=== PATIENT | female | born 1960 | race Caucasian/White ===

== ENCOUNTER 2018-04-02 01:27 | Outpatient (CLI) | payer MEDICAID, SELFPAY ==
--- NOTE | 2018-04-02 10:21 | DI.REPORT_ITS ---
SYMPTOM/DIAGNOSIS: INCISIONAL HERNIA ABDOMINAL K43.2 ULTRASOUND OF THE LEFT LOWER QUADRANT: No hernia is demonstrated. There is no evidence of a mass, hematoma or fluid collection. IMPRESSION: Negative ultrasound of the left abdominal wall.
== END 2018-04-02 01:28 ==
PROVIDERS: PCP Family Medicine; Visit Provider Family Medicine
DX: K43.2 Incisional hernia without obstruction or gangrene (principal)
CPT/HCPCS: 76705

== ENCOUNTER 2018-04-24 12:37 | Outpatient (CLI) | payer MEDICAID, SELFPAY ==
[2018-04-24 21:35] LABS: Ionized Calcium 0.98 mmol/L (1.12-1.32)
[2018-04-26 07:27] LABS: Vitamin D 25 Total 21.9 ng/ml (30-100)
== END 2018-04-24 12:57 ==
PROVIDERS: PCP Family Medicine; Visit Provider Family Medicine
DX: E83.51 Hypocalcemia (principal)
CPT/HCPCS: 36415; 82306; 82330

== ENCOUNTER 2018-05-15 00:44 | Outpatient (CLI) | payer OTHER, SELFPAY ==
--- NOTE | 2018-05-15 08:57 | DI.COMBO_ITS ---
SYMPTOM/DIAGNOSIS: OA BOTH HANDS. DISABILITY DETERMINATION. IDENTITY VERIFIED BY PHOTO ID. RIGHT HAND: 05/15 Two views were obtained. There are minimal degenerative changes of the carpus. There is cartilaginous joint space narrowing involving the DIP joints and to a lesser degree the PIP joints of the index, middle, ring and little fingers. Very prominent hypertrophic spurring is noted associated with the DIP joints of the ring and little fingers. Moderate hypertrophic spurring seen at the index and ring finger DIPs. CONCLUSION: DJD with severe degenerative deformity at DIP joints of ring finger and little finger. LEFT HAND 05/15 Two views were obtained. There are minimal degenerative changes of the carpus. Mild narrowing of PIP joints of the fingers noted. There is marked joint space narrowing at the DIP joints of the index, middle, ring and little fingers with very prominent hypertrophic spurring, periarticular erosions also appear to be present and there appear to be fractured osteophytes of the DIP joints of the middle finger. CONCLUSION: Severe DJD involving the DIP joints as described above.
== END 2018-05-15 01:04 ==
PROVIDERS: PCP Family Medicine; Visit Provider Pediatrics Pediatric Rheumatology
DX: M19.041 Primary osteoarthritis, right hand (principal); M19.042 Primary osteoarthritis, left hand; Z02.71 Encounter for disability determination
CPT/HCPCS: 73120

== ENCOUNTER 2018-07-03 19:08 | Outpatient (REF) | payer MEDICAID, SELFPAY ==
[2018-07-03 19:40] LABS: Abs Immature Grans 0.01 k/cumm (0.0-0.09); Absolute Basophil Count 0.03 k/cumm (0.0-0.2); Absolute Eosinophil Count 0.18 k/cumm (0.0-0.7); Absolute Lymphocyte Count 0.92 k/cumm (1.2-3.4); Absolute Monocyte Count 0.59 k/cumm (0.11-0.7); Absolute Neutrophil Count 3.97 k/cumm (1.2-6.7); Basophils % 0.5; Eosinophils % 3.2; HCT 42.6 % (36.0-46.0); HGB 14.5 g/dL (12.0-15.5); Immature Grans % 0.2; Lymphocytes % 16.1; Mean Corpuscular Hemoglobin 28.2 pg (27.0-33.0); Mean Corpuscular Volume 82.9 fL (80-95); Mean Platelet Volume 10.2 fL (8.0-11.0); Monocytes % 10.4; Neutrophils % 69.6; Platelet Count 328 x1000/uL (130-400); RBC 5.14 m/cumm (4.00-5.20); RBC Distribution Width 13.6 % (11.7-14.6)
[2018-07-03 20:06] LABS: ALT 33 U/L (12-78); AST 25 U/L (15-37); Albumin 3.6 g/dL (3.4-5.0); Alkaline Phosphatase 118 U/L (46-116); Anion Gap 9.5 mmol/L (3-11); BUN 13 mg/dL (7-18); Bilirubin, Total 0.3 mg/dL (0.2-1.0); CO2 29.5 mmol/L (21.0-32.0); CREATININE 0.72 mg/dL (0.55-1.02); Calcium 7.9 mg/dL (8.5-10.1); Chloride 102 mmol/L (98-107); Glucose 93 mg/dL (70-100); Potassium 3.7 mmol/L (3.5-5.1); Sodium 141 mmol/L (136-145); Total Protein 6.6 g/dL (6.4-8.2)
== END 2018-07-03 19:28 ==
LOC: NCHCN 19:08
PROVIDERS: PCP Family Medicine; Visit Provider Nurse Practitioner Family
DX: K57.90 Diverticulosis of intestine, part unspecified, without perforation or abscess without bleeding (principal); R14.0 Abdominal distension (gaseous)
CPT/HCPCS: 80053; 85025

== ENCOUNTER 2018-07-20 10:35 | Outpatient (CLI) | payer MEDICAID, SELFPAY ==
[2018-07-23 11:02] LABS: Parathyroid Hormone,Intact 46 pg/ml (19-88)
== END 2018-07-20 10:55 ==
PROVIDERS: PCP Family Medicine; Visit Provider Family Medicine
DX: E83.51 Hypocalcemia (principal)
CPT/HCPCS: 36415; 83970

== ENCOUNTER 2018-09-07 00:47 | Outpatient (CLI) | payer MEDICAID, SELFPAY ==
[2018-09-07 09:48] LABS: CREATININE 0.79 mg/dL (0.55-1.02)
[2018-09-07] MEDS: Omnipaque 350 MG/ML 100 ML BTL IJ (10:46)
[2018-09-07] MEDS: Normal Saline Flush 10 ML SYR IVP ×2 (10:46→10:47)
--- NOTE | 2018-09-07 11:34 | DI.CT_ITS ---
SYMPTOMS/DIAGNOSIS: ABDOMINAL PAIN, H/O DIVERTICULITIS, LUPUS, ? DIVERTICULITIS CT SCAN OF THE ABDOMEN AND PELVIS: CT scan of the abdomen and pelvis was performed following the uneventful administration of intravenous and oral contrast material. Comparison is 12/01/17. No acute findings are seen in the lung bases. There is scarring or atelectasis present. The liver is normal in size. No suspicious hepatic masses are seen. There are several hypodense lesions seen scattered throughout the liver. These appear stable and likely reflect cysts. The portal and superior mesenteric veins are patent, as is the splenic vein. The gallbladder is negative. The common duct is stable compared to the prior examinations. The pancreas, spleen and adrenal glands show no acute abnormality. The spleen is mildly enlarged. The kidneys show normal and symmetric enhancement. No suspicious solid renal masses or obstruction is identified. The urinary bladder is intact. The patient appears to be status post hysterectomy. There is diverticulosis seen in the colon, particularly the sigmoid colon. There is bowel wall thickening seen in the mid sigmoid colon. Mild increased attenuation is seen in the pericolonic fat in this region suggesting a mild acute diverticulitis. No abscess or free air is seen. The remainder of the bowel shows no evidence of bowel obstruction or inflammation. A normal appendix is present. Stable mildly enlarged lymph nodes are seen in the abdomen and pelvis. No ascites or pneumoperitoneum is present. There is atherosclerosis of the abdominal aorta, but no aneurysmal dilatation is seen. Degenerative changes are seen in the spine. IMPRESSION: Findings suggestive of acute diverticulitis involving the sigmoid colon. No evidence of free air or abscess.
== END 2018-09-07 01:07 ==
PROVIDERS: PCP Family Medicine; Visit Provider Physical Therapy Assistant
DX: R10.9 Unspecified abdominal pain (principal); K57.32 Diverticulitis of large intestine without perforation or abscess without bleeding; R59.0 Localized enlarged lymph nodes; Z87.19 Personal history of other diseases of the digestive system
CPT/HCPCS: 36415; 74177; 82565; J3490

== ENCOUNTER 2018-10-04 08:30 | Outpatient (CLI) | payer MEDICAID, SELFPAY ==
[2018-10-04 08:58] LABS: Abs Immature Grans 0.01 k/cumm (0.0-0.09); Absolute Basophil Count 0.02 k/cumm (0.0-0.2); Absolute Eosinophil Count 0.34 k/cumm (0.0-0.7); Absolute Lymphocyte Count 0.72 k/cumm (1.2-3.4); Absolute Neutrophil Count 4.32 k/cumm (1.2-6.7); Basophils % 0.3; Eosinophils % 5.8; HCT 41.6 % (36.0-46.0); HGB 14.3 g/dL (12.0-15.5); Immature Grans % 0.2; Lymphocytes % 12.2; Mean Corp. HGB Concentration 34.4 g/dL (32.0-36.0); Mean Corpuscular Hemoglobin 28.3 pg (27.0-33.0); Mean Corpuscular Volume 82.2 fL (80-95); Mean Platelet Volume 8.8 fL (8.0-11.0); Monocytes % 8.5; Platelet Count 251 x1000/uL (130-400); RBC 5.06 m/cumm (4.00-5.20); RBC Distribution Width 13.7 % (11.7-14.6); White Blood Cell Count 5.91 k/cumm (4.4-10.8)
== END 2018-10-04 08:50 ==
PROVIDERS: PCP Family Medicine; Visit Provider Surgery
DX: R19.7 Diarrhea, unspecified (principal)
CPT/HCPCS: 36415; 85025; 87324

== ENCOUNTER 2018-10-15 08:31 | Outpatient (CLI) | payer MEDICAID, SELFPAY ==
--- NOTE | 2018-10-15 15:10 | DI.CT_ITS ---
SYMPTOM/DIAGNOSIS: CHRONIC ETHMOID SINUSITIS, J32.2, INCREASED SYMPTOMS, ? INFECTION SINUS CT: The exam was performed according to the Cuff-Protect protocol. There is moderate circumferential mucosal thickening of the right maxillary sinus. There is occlusion of the ostiomeatal complex. There is severe mucus retention in the left maxillary sinus. There is renuka bullosa of the left middle turbinate and deviation of the nasal septum toward the left. The frontal, ethmoid and sphenoid sinuses as well as mastoid air cells appear clear. The orbits are unremarkable. No gross abnormalities are seen involving the brain. IMPRESSION: Bilateral maxillary sinus disease, left greater than right.
== END 2018-10-15 08:51 ==
PROVIDERS: PCP Family Medicine; Visit Provider Family Medicine
DX: J01.00 Acute maxillary sinusitis, unspecified (principal); J34.2 Deviated nasal septum
CPT/HCPCS: 70486

== ENCOUNTER 2018-10-16 10:26 | Emergency (ER) | payer MEDICAID, SELFPAY ==
[2018-10-16 10:33] VITALS: BP 138/68; PULSE 73; RESP 16; TEMP 37; O2SAT 99
--- NOTE | 2018-10-16 10:42 | W.ED.GENAD ---
Discharge Plan Disposition Patient Disposition: HOME Condition: Improving Discharge Details Chief Complaint: RespSymp Clinical Impression: Acute sinusitis Primary Care Provider: Daniel Hinkle ED Provider: Ke Acuna Home Meds and New Rx's Prescriptions: New cefdinir 300 mg capsule 300 mg PO Q12H 10 Days Qty: 20 RF: 0 Continued Adult 50+ Probiotic 4 billion cell capsule 4,000 mmu cells PO DAILY RF: 0 polyethylene glycol 3350 17 gram/dose powder 255 g PO ONCE Qty: 255 RF: 0 bisacodyl [Dulcolax (bisacodyl)] 5 mg tablet,delayed release (DR/EC) 5 mg PO ONCE Qty: 4 RF: 0 albuterol sulfate [ProAir HFA] 90 mcg/actuation HFA aerosol inhaler 2 puff Inhalation Q6H PRN (Reason: shortness of breath) RF: 0 hydroxychloroquine 200 MG tablet 200 mg PO DAILY Qty: 30 RF: 11 cetirizine 10 MG tablet 10 mg PO DAILY RF: 0 acetaminophen [Tylenol Extra Strength] 500 MG tablet 1,000 mg PO Q6H PRN RF: 0 levothyroxine 125 MCG tablet 125 mcg PO DAILY RF: 0 Flovent HFA 220 mcg/actuation HFA aerosol inhaler 220 mcg Inhalation BID PRNRF: 0 simvastatin 20 MG tablet 20 mg PO DAILY RF: 0 aspirin [Aspir-81] 81 MG tablet,delayed release (DR/EC) 81 mg PO DAILY RF: 0 ibuprofen 800 mg tablet 800 mg PO DIRECTED PRNRF: 0 lisinopril-hydrochlorothiazide 1 EACH tablet 1 ea PO DAILY RF: 0 pramipexole 1 MG tablet 1 mg PO DAILY RF: 0 cholecalciferol (vitamin D3) 1,000 UNITS tablet 5,000 mg PO DIRECTED RF: 0 Discontinued metronidazole 500 mg tablet 500 mg PO TID RF: 0 ciprofloxacin HCl 500 mg tablet 500 mg PO BID RF: 0 Discharge Instructions Instructions: Sinusitis (ED) Additional Instructions: Home to rest. Take antibiotics as prescribed Please follow-up with Dr. Duran in clinic if not improving in 1 week's time. Return to the ER for any acute Medical Decision Making 58-year-old female status post CT scan yesterday which revealed acute sinus disease. She reports symptoms consistent with this. He is otherwise well-appearing with normal vital signs. She was previously on a course of Augmentin approximately 2 months ago she reports. I discussed options for treatment with her and we will trial 10 days of cephalosporin. She is stable and appropriate outpatient management. HPI General Mode of arrival: ambulatory. Date/Time Provider Initiated Documentation: 10/16/18 10:34. Limitations to Documentation: no limitations. Information obtained by: patient. History of Present Illness 58 year old F presents to the emergency department with the chief complaint of Bilateral sinus pressure and drainage over weeks to, described as moderate and similar to prior episodes, Quality is described as dull and constant, and is localized to the head and face. Patient reports no radiation. Patient started experiencing this week(s) and it has been constant. No relieving factors improve symptom(s), No exacerbating factors reported . Patient notes denies fever/chills. Patient did receive the following treatments prior to arrival, other Related Data Home Medications Medication Instructions Recorded Confirmed simvastatin 20 mg PO DAILY 11/15/12 10/16/18 aspirin [Aspir-81] 81 mg PO DAILY 06/07/15 10/16/18 hydroxychloroquine 200 mg PO DAILY #30 tab-cap 11/16/16 10/16/18 acetaminophen [Tylenol Extra 1,000 mg PO Q6H PRN tab-cap 05/25/17 10/16/18 Strength] cetirizine 10 mg PO DAILY tab-cap 05/25/17 10/16/18 levothyroxine 125 mcg PO DAILY tab-cap 05/25/17 10/16/18 lisinopril-hydrochlorothiazide 1 ea PO DAILY 06/27/17 10/16/18 cholecalciferol (vitamin D3) 5,000 mg PO DIRECTED 12/01/17 10/16/18 pramipexole 1 mg PO DAILY 12/01/17 10/16/18 bisacodyl 5 mg tablet,delayed 5 mg PO ONCE #4 tab 08/27/18 10/16/18 release lactobacillus combination no.9 4 4,000 mmu cells PO DAILY 08/27/18 10/16/18 billion cell capsule polyethylene glycol 3350 17 255 g PO ONCE #255 gm 08/27/18 10/16/18 gram/dose oral powder albuterol sulfate HFA 90 2 puff INHALATION Q6H PRN inh 10/04/18 10/16/18 mcg/actuation aerosol inhaler fluticasone 220 mcg/actuation HFA 220 mcg INHALATION BID PRN inhaler 10/04/18 10/16/18 aerosol inhaler ibuprofen 800 mg tablet 800 mg PO DIRECTED PRN 10/04/18 10/16/18 cefdinir 300 mg PO Q12H 10 Days #20 cap 10/16/18 Previous Rx's Medication Instructions Recorded bisacodyl 5 mg tablet,delayed 5 mg PO ONCE #4 tab 08/27/18 release polyethylene glycol 3350 17 255 g PO ONCE #255 gm 08/27/18 gram/dose oral powder cefdinir 300 mg PO Q12H 10 Days #20 cap 10/16/18 Allergies Allergy/AdvReac Type Severity Reaction Status Date / Time No Known Allergies Allergy Verified 10/16/18 10:36 General Stated Complaint: RespSymp PRISCILLA: 4 Review of Systems Review of Systems 6 systems reviewed and otherwise negative [facility] Medical History Incisional hernia of anterior abdominal wall without obstruction or gangrene (Acute) Constipation HTN (hypertension) GERD (gastroesophageal reflux disease) Diverticulitis of sigmoid colon Lupus Hypothyroidism H/O: hysterectomy (Chronic) Abnormal mammogram of right breast Acute Lyme disease Allergic rhinitis Amyloidosis Antiphospholipid syndrome Asthma Chest wall pain Degenerative joint disease Derangement of meniscus of right knee Digital mucous cyst Eczema Hyperlipidemia Hypocalcemia Insomnia 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 Pleasant, well groomed, interactive. HEAD: Normocephalic, atraumatic ENT: Mucous membranes moist, oropharynx unremarkable, External ear exam unremarkable. Bilateral sinus tenderness to percussion both frontal and EYES: PERRL, EOMI NECK: Full ROM, no BETHEL, no menigismus CHEST/RESP: Nontender, clear to auscultation bilateral, no wheeze/rhonchi/rales CARDIOVASCULAR: RRR, no murmur, rub danielito. 2+ Rad pulse bilateral ABDOMEN: Soft, nontender, no mass. +Bowel sounds EXT: Full ROM, no edema, no rash Neuro: Grossly normal neurologic exam, conversant, interactive. Psych: Speech fluent, thoughts congruent, affect normal Course Vital Signs Temperature 37 C 10/16/18 10:33 Pulse 73 10/16/18 10:33 Respiratory Rate 16 10/16/18 10:33 Blood Pressure 138/68 10/16/18 10:33 Pulse Oximetry 99 10/16/18 10:33 Temperature 37 C 10/16/18 10:33 Temperature Source Skin 10/16/18 10:33 Pulse 73 10/16/18 10:33 Respiratory Rate 16 10/16/18 10:33 Respiratory Effort Non-Labored 10/16/18 10:33 Blood Pressure 138/68 10/16/18 10:33 Blood Pressure Position Sitting 10/16/18 10:33 Pulse Oximetry 99 10/16/18 10:33 Oxygen Delivery Method Room Air 10/16/18 10:33 Oxygen Flow Rate 0 10/16/18 10:33 Pain Level 3 10/16/18 10:33
== END 2018-10-16 10:53 | disposition home or self-care (01) ==
LOC: ER 10:58
PROVIDERS: Emergency Provider Emergency Medicine; PCP Family Medicine
DX: J01.90 Acute sinusitis, unspecified (principal)
CPT/HCPCS: 99283

== ENCOUNTER 2018-10-22 12:53 | Emergency (ER) | payer MEDICAID, SELFPAY ==
[2018-10-22 12:58] VITALS: BP 158/62; PULSE 76; RESP 16; TEMP 36.7; O2SAT 96
--- NOTE | 2018-10-22 13:31 | W.ED.GENAD ---
Discharge Plan Disposition Patient Disposition: HOME Discharge Details Chief Complaint: RespSymp Clinical Impression: Chronic sinusitis Primary Care Provider: Daniel Hinkle ED Provider: Gabriel Sutton Home Meds and New Rx's Prescriptions: New fluticasone propionate [Flonase Allergy Relief] 50 mcg/actuation spray,suspension 2 spray GRADY DAILY Qty: 9.9 RF: 0 doxycycline hyclate 100 mg tablet 100 mg PO BID Qty: 14 RF: 0 Continued Adult 50+ Probiotic 4 billion cell capsule 4,000 mmu cells PO DAILY RF: 0 bisacodyl [Dulcolax (bisacodyl)] 5 mg tablet,delayed release (DR/EC) 5 mg PO ONCE Qty: 4 RF: 0 albuterol sulfate [ProAir HFA] 90 mcg/actuation HFA aerosol inhaler 2 puff Inhalation Q6H PRN (Reason: shortness of breath) RF: 0 hydroxychloroquine 200 MG tablet 200 mg PO DAILY Qty: 30 RF: 11 cetirizine 10 MG tablet 10 mg PO DAILY RF: 0 acetaminophen [Tylenol Extra Strength] 500 MG tablet 1,000 mg PO Q6H PRN RF: 0 levothyroxine 125 MCG tablet 125 mcg PO DAILY RF: 0 Flovent HFA 220 mcg/actuation HFA aerosol inhaler 220 mcg Inhalation BID PRNRF: 0 simvastatin 20 MG tablet 20 mg PO DAILY RF: 0 aspirin [Aspir-81] 81 MG tablet,delayed release (DR/EC) 81 mg PO DAILY RF: 0 lisinopril-hydrochlorothiazide 1 EACH tablet 1 ea PO DAILY RF: 0 pramipexole 1 MG tablet 1 mg PO DAILY RF: 0 cholecalciferol (vitamin D3) 1,000 UNITS tablet 5,000 mg PO DIRECTED RF: 0 Discontinued cefdinir 300 mg capsule 300 mg PO Q12H 10 Days Qty: 20 RF: 0 Discharge Instructions Instructions: Sinusitis (ED) Additional Instructions: Please start with using the Flonase 2 sprays per nostril daily for the next 3 days. If this is not improving your symptoms you may start the doxycycline twice daily for 7 days. You may start the antibiotic sooner if you start running a fever or have a dramatic change in your symptoms. It is recommended that you stop the antibiotic that you are currently on while trialing the nasal spray. Feel free to return the emergency department for any significant worsening of symptoms or further concerns and follow-up with ENT for reassessment in 1 week. It may also be beneficial to buy a whole house humidifier along with a air purifier to see if that helps with your symptoms. Referrals: Solo Tate MD [ [facility] STAFF PHYSICIAN] - 1 week (Call the office tomorrow afternoon for arrangement of follow-up ) Discharge Data Discharge Date/Time-TO BE ENTERED AT DEPARTURE: 10/22/18 13:58 Medical Decision Making Patient presenting to the emergency department chief complaint of sinusitis. Patient states that this is been going on for 2 months and initially was placed up on Augmentin which moderately helped but then symptoms came back fairly quickly and was seen in the emergency department almost a week ago and placed up on Ceftin ear. She has been taking this and has had no improvement of symptoms while on this medication. Patient states long ongoing history of sinus infections and has seen Dr. Tate in the past with no specific findings beyond a deviated septum. Physical exam shows frontal ethmoid and maxillary sinus tenderness with mostly tenderness to ethmoid and maxillary sinuses, patient does have dry mucosa as well. No signs of venous sinus thrombosis, patient afebrile nontoxic in appearance, no other HEENT cardiac or respiratory examinations are noted on exam. Given duration of symptoms and not improving on antibiotics there may be a component of this being allergenic along with patient stating that they use wood heat and it is very dry in the home. Given this and that patient has not had any improvement with antibiotics I thoroughly discussed trial of stopping antibiotics, daily use of Flonase, and a prescription for doxycycline to begin in 3 days if the Flonase is not improving symptoms or for any fever. Given that patient has seen Dr. Tate in the past I did place a referral for her to have reevaluation in 1 week due to multiple ER visits and not improving of symptoms over the last 2 months. Clear return precautions were discussed with patient. After discussion of diagnosis and plan of care patient has no further needs, questions, or concerns and states clear understanding to return to the emergency department for any worsening symptoms or further concerns. HPI General Mode of arrival: ambulatory. Date/Time Provider Initiated Documentation: 10/22/18 13:03. Limitations to Documentation: no limitations. Information obtained by: patient, RN notes reviewed and old records reviewed. History of Present Illness described as moderate, with intensity rated at 4. Quality is described as aching, and is localized to the face. Patient started experiencing this month(s) (2) and it has been constant. No relieving factors improve symptom(s), Patient notes no other symptoms.. Patient did receive the following treatments prior to arrival, other (Multiple antibiotics and [id number] medications) Related Data Home Medications Medication Instructions Recorded Confirmed simvastatin 20 mg PO DAILY 11/15/12 10/22/18 aspirin [Aspir-81] 81 mg PO DAILY 06/07/15 10/22/18 hydroxychloroquine 200 mg PO DAILY #30 tab-cap 11/16/16 10/22/18 acetaminophen [Tylenol Extra 1,000 mg PO Q6H PRN tab-cap 05/25/17 10/22/18 Strength] cetirizine 10 mg PO DAILY tab-cap 05/25/17 10/22/18 levothyroxine 125 mcg PO DAILY tab-cap 05/25/17 10/22/18 lisinopril-hydrochlorothiazide 1 ea PO DAILY 06/27/17 10/22/18 cholecalciferol (vitamin D3) 5,000 mg PO DIRECTED 12/01/17 10/22/18 pramipexole 1 mg PO DAILY 12/01/17 10/22/18 bisacodyl 5 mg tablet,delayed 5 mg PO ONCE #4 tab 08/27/18 10/22/18 release lactobacillus combination no.9 4 4,000 mmu cells PO DAILY 08/27/18 10/22/18 billion cell capsule albuterol sulfate HFA 90 2 puff INHALATION Q6H PRN inh 10/04/18 10/22/18 mcg/actuation aerosol inhaler fluticasone propionate 220 220 mcg INHALATION BID PRN inhaler 10/04/18 10/22/18 mcg/actuation HFA aerosol inhaler doxycycline hyclate 100 mg PO BID #14 tab 10/22/18 fluticasone propionate [Flonase 2 spray GRADY DAILY #9.9 gm 10/22/18 Allergy Relief] Previous Rx's Medication Instructions Recorded bisacodyl 5 mg tablet,delayed 5 mg PO ONCE #4 tab 08/27/18 release doxycycline hyclate 100 mg PO BID #14 tab 10/22/18 fluticasone propionate [Flonase 2 spray GRADY DAILY #9.9 gm 10/22/18 Allergy Relief] Allergies Allergy/AdvReac Type Severity Reaction Status Date / Time No Known Allergies Allergy Verified 10/22/18 13:03 General Stated Complaint: RespSymp PRISCILLA: 4 Review of Systems Constitutional Denies chills, Reports fever(s) (at begining of illness), Denies headache(s) and Denies malaise Eyes Denies blurry vision and Denies change in vision ENT Denies vertigo, Denies dizziness, Denies otalgia, Denies headache(s), Denies neck pain, Reports post nasal drip, Reports sinus pain and Reports sinus pressure Cardiovascular Denies chest pain Respiratory Reports cough (Due to post nasal drip) Musculoskeletal Denies neck pain Neurologic Denies vertigo, Denies dizziness, Denies headache(s), Denies focal weakness and Denies sensory deficit [facility] Medical History Incisional hernia of anterior abdominal wall without obstruction or gangrene (Acute) Constipation HTN (hypertension) GERD (gastroesophageal reflux disease) Diverticulitis of sigmoid colon Lupus Hypothyroidism H/O: hysterectomy (Chronic) Abnormal mammogram of right breast Acute Lyme disease Allergic rhinitis Amyloidosis Antiphospholipid syndrome Asthma Chest wall pain Degenerative joint disease Derangement of meniscus of right knee Digital mucous cyst Eczema Hyperlipidemia Hypocalcemia Insomnia 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 Multinodular goiter Pericarditis Sciatica, left side Tendonitis of shoulder, right Wart Surgical History Thyroid Tonsillectomy Social History Smoking and Tabacco status: Former Tobacco Use Exam Const General: cooperative, comfortable and no acute distress Orientation: alert, awake and oriented x3 HENMT Head: normal to inspection, normocephalic and atraumatic Ears: hearing grossly normal bilaterally, external ears normal and TM's normal bilaterally General nose exam: external nose normal, nares normal, no nasal polyps and no nasal discharge Face and sinus: sinus tenderness frontal, ethmoid and maxillary Mouth: lip normal, tongue normal and moist mucous membranes abnormal (dry) Throat: posterior oropharynx normal, tonsils normal and uvula midline Eyes Visual Curran: normal visual curran by confrontation Alignment and Position: alignment normal Periorbital: periorbital findings normal Sclera: sclerae normal EOM: EOM intact bilaterally Neck Neck: normal visual inspection, full ROM, no lymphadenopathy, no meningeal signs, trachea midline and supple Resp Effort & Inspection: normal respiratory effort and able to speak in complete sentences Auscultation: clear to auscultation bilaterally Cardio Rate: regular rate Rhythm: regular rhythm Heart Sounds: S1 normal, S2 normal, no click, no gallops, no murmurs and no rubs Course Vital Signs Temperature 36.7 C 10/22/18 12:58 Pulse 76 10/22/18 12:58 Respiratory Rate 16 10/22/18 12:58 Blood Pressure 158/62 H 10/22/18 12:58 Pulse Oximetry 96 10/22/18 12:58 Temperature 36.7 C 10/22/18 12:58 Temperature Source Skin 10/22/18 12:58 Pulse 76 10/22/18 12:58 Respiratory Rate 16 10/22/18 12:58 Respiratory Effort Non-Labored 10/22/18 13:01 Respiratory Depth Normal 10/22/18 13:28 Blood Pressure 158/62 H 10/22/18 12:58 Blood Pressure Position Sitting 10/22/18 12:58 Pulse Oximetry 96 10/22/18 12:58 Oxygen Delivery Method Room Air 10/22/18 12:58 Oxygen Flow Rate 0 10/22/18 12:58 Pain Level 4 10/22/18 12:58
--- NOTE | 2018-10-22 14:24 | CMPROGNOTE_ITS ---
Care Management Progress Note 10/22-[place] [facility] requested assistance with an ENT f/ufor chronic sinusitis. Patient has had multiple ED visits, two antibiotics with no improvement. Referral faxed to ENT this afternoon.
== END 2018-10-22 13:58 | disposition home or self-care (01) ==
PROVIDERS: Emergency Provider Nurse Practitioner Family; PCP Family Medicine
DX: J32.9 Chronic sinusitis, unspecified (principal); I10 Essential (primary) hypertension
CPT/HCPCS: 99283

== ENCOUNTER 2018-10-28 09:59 | Emergency (ER) | payer MEDICAID, SELFPAY ==
[2018-10-28 10:07] VITALS: BP 148/78; PULSE 68; RESP 20; TEMP 36.7; O2SAT 96
--- NOTE | 2018-10-28 10:32 | W.ED.GENAD ---
Discharge Plan Disposition Patient Disposition: HOME Discharge Details Chief Complaint: EyeProblem Clinical Impression: Conjunctivitis, Dry eye Primary Care Provider: Daniel Hinkle ED Provider: Evan Whitmore Home Meds and New Rx's Prescriptions: New erythromycin 5 mg/gram (0.5 %) ointment 1 applic OP QID 7 Days Qty: 3.5 RF: 0 Continued bisacodyl [Dulcolax (bisacodyl)] 5 mg tablet,delayed release (DR/EC) 5 mg PO ONCE Qty: 4 RF: 0 albuterol sulfate [ProAir HFA] 90 mcg/actuation HFA aerosol inhaler 2 puff Inhalation Q6H PRN (Reason: shortness of breath) RF: 0 hydroxychloroquine 200 MG tablet 200 mg PO DAILY Qty: 30 RF: 11 acetaminophen [Tylenol Extra Strength] 500 MG tablet 1,000 mg PO Q6H PRN RF: 0 levothyroxine 125 MCG tablet 125 mcg PO DAILY RF: 0 Flovent HFA 220 mcg/actuation HFA aerosol inhaler 220 mcg Inhalation BID PRNRF: 0 simvastatin 20 MG tablet 20 mg PO DAILY RF: 0 aspirin [Aspir-81] 81 MG tablet,delayed release (DR/EC) 81 mg PO DAILY RF: 0 doxycycline hyclate 100 mg tablet 100 mg PO BID Qty: 14 RF: 0 loratadine 10 mg Capsule 10 mg PO DAILY RF: 0 pramipexole 1 MG tablet 1 mg PO DAILY RF: 0 Discharge Instructions Instructions: Erythromycin (Into the eye), Conjunctivitis (ED) Additional Instructions: Please follow-up with your primary care physician and an redeye gunner. Use antibiotic ointment. Apply 1/2 inch to conjunctival sac of both eyes 4 times daily for 7 days. Return to the ER for any worsening or new concerning symptoms. Referrals: [facility] [Outside] Daniel Hinkle [Primary Care Provider] - Medical Decision Making 58-year-old female with history of lupus, on Plaquenil, here with bilateral eye irritation, yellowish green discharge in the morning, mild bilateral conjunctival injection noted on exam. Consider autoimmune versus allergic versus infectious etiology. Plan to treat with erythromycin to cover for any potential bacterial conjunctivitis. Plan to have the patient follow-up with her primary care physician and ophthalmology. HPI General Mode of arrival: ambulatory. Date/Time Provider Initiated Documentation: 10/28/18 10:09. Limitations to Documentation: no limitations. Information obtained by: patient. HPI Narrative: 58-year-old female with history of lupus, presents today with chief complaint of eye inflammation. Patient notes that she has chronic dry eye. Over the past 2 weeks she has had intermittent discharge from her eyes. Symptoms started in right eye and then started to involve left eye. She notes that she wakes up some mornings with yellow green discharge in medial canthus of both eyes. No visual changes. Eyes feel itchy and dry. Patient does not work with metal and has had no significant solar exposure. She has had some sinus congestion recently being treated by PCP and symptoms improved. Related Data Home Medications Medication Instructions Recorded Confirmed simvastatin 20 mg PO DAILY 11/15/12 10/28/18 aspirin [Aspir-81] 81 mg PO DAILY 06/07/15 10/28/18 hydroxychloroquine 200 mg PO DAILY #30 tab-cap 11/16/16 10/28/18 acetaminophen [Tylenol Extra 1,000 mg PO Q6H PRN tab-cap 05/25/17 10/28/18 Strength] levothyroxine 125 mcg PO DAILY tab-cap 05/25/17 10/28/18 pramipexole 1 mg PO DAILY 12/01/17 10/28/18 bisacodyl 5 mg tablet,delayed 5 mg PO ONCE #4 tab 08/27/18 10/28/18 release albuterol sulfate HFA 90 2 puff INHALATION Q6H PRN inh 10/04/18 10/28/18 mcg/actuation aerosol inhaler fluticasone propionate 220 220 mcg INHALATION BID PRN inhaler 10/04/18 10/28/18 mcg/actuation HFA aerosol inhaler doxycycline hyclate 100 mg PO BID #14 tab 10/22/18 10/28/18 erythromycin 1 applic OP QID 7 Days #3.5 gm 10/28/18 loratadine 10 mg PO DAILY 10/28/18 10/28/18 Previous Rx's Medication Instructions Recorded bisacodyl 5 mg tablet,delayed 5 mg PO ONCE #4 tab 08/27/18 release doxycycline hyclate 100 mg PO BID #14 tab 10/22/18 erythromycin 1 applic OP QID 7 Days #3.5 gm 10/28/18 Allergies Allergy/AdvReac Type Severity Reaction Status Date / Time No Known Allergies Allergy Verified 10/28/18 10:09 General Stated Complaint: EyeProblem PRISCILLA: 4 Review of Systems Constitutional Denies fever(s) and Denies headache(s) Eyes Reports as per HPI ENT Denies headache(s) and Reports nasal congestion Respiratory Denies cough Neurologic Denies headache(s) [facility] Medical History Incisional hernia of anterior abdominal wall without obstruction or gangrene (Acute) Constipation HTN (hypertension) GERD (gastroesophageal reflux disease) Diverticulitis of sigmoid colon Lupus Hypothyroidism H/O: hysterectomy (Chronic) Abnormal mammogram of right breast Acute Lyme disease Allergic rhinitis Amyloidosis Antiphospholipid syndrome Asthma Chest wall pain Degenerative joint disease Derangement of meniscus of right knee Digital mucous cyst Eczema Hyperlipidemia Hypocalcemia Insomnia 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 Multinodular goiter Pericarditis Sciatica, left side Tendonitis of shoulder, right Wart Surgical History Thyroid Tonsillectomy Social History Smoking/Tobacco Use Status: Former Tobacco Use Alcohol Intake: current Alcohol Intake frequency: holidays/special occasions only Drug use: Never Substance use type: does not use Do you feel safe at home: Yes Do you feel safe in your relationship?: Yes Exam Const General: cooperative, healthy appearing and comfortable Orientation: alert and awake HENMT Ears: TM normal on the left and unable to visualize TM on the right General nose exam: external nose normal, nares normal and no nasal discharge Face and sinus: normal facial exam, face symmetric and no erythema Mouth: oral mucosae normal Throat: posterior oropharynx normal Eyes Alignment and Position: alignment normal Periorbital: periorbital findings normal Eyelids: eyelids normal Conjunctivae: conjunctival abnormality bilaterally conjunctival injection (mild); without discharge Sclera: sclerae normal Cornea: corneas normal Pupils: PERRL EOM: EOM intact bilaterally Direct ophthalmoscopy: normal light reflex and no papilledema Neck Neck: no lymphadenopathy Skin Rashes: no rashes (face) Course Vital Signs Temperature 36.7 C 10/28/18 10:07 Pulse 68 10/28/18 10:07 Respiratory Rate 20 10/28/18 10:07 Blood Pressure 148/78 H 10/28/18 10:07 Pulse Oximetry 96 10/28/18 10:07 Temperature 36.7 C 10/28/18 10:07 Temperature Source Temporal Artery Scan 10/28/18 10:07 Pulse 68 10/28/18 10:07 Respiratory Rate 20 10/28/18 10:07 Respiratory Effort Non-Labored 10/28/18 10:07 Blood Pressure 148/78 H 10/28/18 10:07 Blood Pressure Position Sitting 10/28/18 10:07 Pulse Oximetry 96 10/28/18 10:07 Oxygen Delivery Method Room Air 10/28/18 10:07 Oxygen Flow Rate 0 10/28/18 10:07 Pain Level 3 10/28/18 10:07
--- NOTE | 2018-10-28 10:35 | ED.GENADUL_ITS ---
Discharge Plan Disposition Patient Disposition: HOME Discharge Details Chief Complaint: EyeProblem Clinical Impression: Conjunctivitis, Dry eye Primary Care Provider: Daniel Hinkle ED Provider: Evan Whitmore Home Meds and New Rx's Prescriptions: New erythromycin 5 mg/gram (0.5 %) ointment 1 applic OP QID 7 Days Qty: 3.5 RF: 0 Continued bisacodyl [Dulcolax (bisacodyl)] 5 mg tablet,delayed release (DR/EC) 5 mg PO ONCE Qty: 4 RF: 0 albuterol sulfate [ProAir HFA] 90 mcg/actuation HFA aerosol inhaler 2 puff Inhalation Q6H PRN (Reason: shortness of breath) RF: 0 hydroxychloroquine 200 MG tablet 200 mg PO DAILY Qty: 30 RF: 11 acetaminophen [Tylenol Extra Strength] 500 MG tablet 1,000 mg PO Q6H PRN RF: 0 levothyroxine 125 MCG tablet 125 mcg PO DAILY RF: 0 Flovent HFA 220 mcg/actuation HFA aerosol inhaler 220 mcg Inhalation BID PRNRF: 0 simvastatin 20 MG tablet 20 mg PO DAILY RF: 0 aspirin [Aspir-81] 81 MG tablet,delayed release (DR/EC) 81 mg PO DAILY RF: 0 doxycycline hyclate 100 mg tablet 100 mg PO BID Qty: 14 RF: 0 loratadine 10 mg Capsule 10 mg PO DAILY RF: 0 pramipexole 1 MG tablet 1 mg PO DAILY RF: 0 Discharge Instructions Instructions: Erythromycin (Into the eye), Conjunctivitis (ED) Additional Instructions: Please follow-up with your primary care physician and an eyelet cutter. Use antibiotic ointment. Apply 1/2 inch to conjunctival sac of both eyes 4 times daily for 7 days. Return to the ER for any worsening or new concerning symptoms. Referrals: [facility] [Outside] Daniel Hinkle [Primary Care Provider] - Medical Decision Making 58-year-old female with history of lupus, on Plaquenil, here with bilateral eye irritation, yellowish green discharge in the morning, mild bilateral conjunctival injection noted on exam. Consider autoimmune versus allergic versus infectious etiology. Plan to treat with erythromycin to cover for any potential bacterial conjunctivitis. Plan to have the patient follow-up with her primary care physician and ophthalmology. HPI General Mode of arrival: ambulatory . Date/Time Provider Initiated Documentation: 10/28/18 10:09 . Limitations to Documentation: no limitations . Information obtained by: patient . HPI Narrative: 58-year-old female with history of lupus, presents today with chief complaint of eye inflammation. Patient notes that she has chronic dry eye. Over the past 2 weeks she has had intermittent discharge from her eyes. Symptoms started in right eye and then started to involve left eye. She notes that she wakes up some mornings with yellow green discharge in medial canthus of both eyes. No visual changes. Eyes feel itchy and dry. Patient does not work with metal and has had no significant solar exposure. She has had some sinus congestion recently being treated by PCP and symptoms improved. Related Data Home Medications Medication Instructions Recorded Confirmed simvastatin 20 mg PO DAILY 11/15/12 10/28/18 aspirin [Aspir-81] 81 mg PO DAILY 06/07/15 10/28/18 hydroxychloroquine 200 mg PO DAILY #30 tab-cap 11/16/16 10/28/18 acetaminophen [Tylenol Extra 1,000 mg PO Q6H PRN tab-cap 05/25/17 10/28/18 Strength] levothyroxine 125 mcg PO DAILY tab-cap 05/25/17 10/28/18 pramipexole 1 mg PO DAILY 12/01/17 10/28/18 bisacodyl 5 mg tablet,delayed 5 mg PO ONCE #4 tab 08/27/18 10/28/18 release albuterol sulfate HFA 90 2 puff INHALATION Q6H PRN inh 10/04/18 10/28/18 mcg/actuation aerosol inhaler fluticasone propionate 220 220 mcg INHALATION BID PRN inhaler 10/04/18 10/28/18 mcg/actuation HFA aerosol inhaler doxycycline hyclate 100 mg PO BID #14 tab 10/22/18 10/28/18 erythromycin 1 applic OP QID 7 Days #3.5 gm 10/28/18 loratadine 10 mg PO DAILY 10/28/18 10/28/18 Previous Rx's Medication Instructions Recorded bisacodyl 5 mg tablet,delayed 5 mg PO ONCE #4 tab 08/27/18 release doxycycline hyclate 100 mg PO BID #14 tab 10/22/18 erythromycin 1 applic OP QID 7 Days #3.5 gm 10/28/18 Allergies Allergy/AdvReac Type Severity Reaction Status Date / Time No Known Allergies Allergy Verified 10/28/18 10:09 General Stated Complaint: EyeProblem PRISCILLA: 4 Review of Systems Constitutional Denies fever(s) and Denies headache(s) Eyes Reports as per HPI ENT Denies headache(s) and Reports nasal congestion Respiratory Denies cough Neurologic Denies headache(s) [facility] Medical History Incisional hernia of anterior abdominal wall without obstruction or gangrene (Acute) Constipation HTN (hypertension) GERD (gastroesophageal reflux disease) Diverticulitis of sigmoid colon Lupus Hypothyroidism H/O: hysterectomy (Chronic) Abnormal mammogram of right breast Acute Lyme disease Allergic rhinitis Amyloidosis Antiphospholipid syndrome Asthma Chest wall pain Degenerative joint disease Derangement of meniscus of right knee Digital mucous cyst Eczema Hyperlipidemia Hypocalcemia Insomnia 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 Multinodular goiter Pericarditis Sciatica, left side Tendonitis of shoulder, right Wart Surgical History Thyroid Tonsillectomy Social History Smoking/Tobacco Use Status: Former Tobacco Use Alcohol Intake: current Alcohol Intake frequency: holidays/special occasions only Drug use: Never Substance use type: does not use Do you feel safe at home: Yes Do you feel safe in your relationship?: Yes Exam Const General: cooperative, healthy appearing and comfortable Orientation: alert and awake HENMT Ears: TM normal on the left and unable to visualize TM on the right General nose exam: external nose normal, nares normal and no nasal discharge Face and sinus: normal facial exam, face symmetric and no erythema Mouth: oral mucosae normal Throat: posterior oropharynx normal Eyes Alignment and Position: alignment normal Periorbital: periorbital findings normal Eyelids: eyelids normal Conjunctivae: conjunctival abnormality bilaterally conjunctival injection (mild); without discharge Sclera: sclerae normal Cornea: corneas normal Pupils: PERRL EOM: EOM intact bilaterally Direct ophthalmoscopy: normal light reflex and no papilledema Neck Neck: no lymphadenopathy Skin Rashes: no rashes (face) Course Vital Signs Temperature 36.7 C 10/28/18 10:07 Pulse 68 10/28/18 10:07 Respiratory Rate 20 10/28/18 10:07 Blood Pressure 148/78 H 10/28/18 10:07 Pulse Oximetry 96 10/28/18 10:07 Temperature 36.7 C 10/28/18 10:07 Temperature Source Temporal Artery Scan 10/28/18 10:07 Pulse 68 10/28/18 10:07 Respiratory Rate 20 10/28/18 10:07 Respiratory Effort Non-Labored 10/28/18 10:07 Blood Pressure 148/78 H 10/28/18 10:07 Blood Pressure Position Sitting 10/28/18 10:07 Pulse Oximetry 96 10/28/18 10:07 Oxygen Delivery Method Room Air 10/28/18 10:07 Oxygen Flow Rate 0 10/28/18 10:07 Pain Level 3 10/28/18 10:07
== END 2018-10-28 10:42 | disposition home or self-care (01) ==
PROVIDERS: Emergency Provider Student in an Organized Health Care Education/Training Program; PCP Family Medicine
DX: H10.33 Unspecified acute conjunctivitis, bilateral (principal); H57.89 Other specified disorders of eye and adnexa; I10 Essential (primary) hypertension
CPT/HCPCS: 99283

== ENCOUNTER 2018-10-29 09:43 | Emergency (ER) | payer MEDICAID, SELFPAY ==
[2018-10-29 09:51] VITALS: BP 141/64; PULSE 67; RESP 18; TEMP 36.3; O2SAT 97
--- NOTE | 2018-10-29 10:58 | W.ED.GENAD ---
Discharge Plan Disposition Patient Disposition: HOME Condition: Good Discharge Details Chief Complaint: Abd Prob Clinical Impression: Diverticulitis large intestine w/o perforation or abscess w/o bleeding Primary Care Provider: Daniel Hinkle ED Provider: Gregg Velásquez [place] Meds and New Rx's Prescriptions: New ciprofloxacin HCl 500 mg tablet 500 mg PO BID Qty: 20 RF: 0 metronidazole [Flagyl] 500 mg tablet 500 mg PO TID Qty: 30 RF: 0 Continued albuterol sulfate [ProAir HFA] 90 mcg/actuation HFA aerosol inhaler 2 puff Inhalation Q6H PRN (Reason: shortness of breath) RF: 0 hydroxychloroquine 200 MG tablet 200 mg PO DAILY Qty: 30 RF: 11 acetaminophen [Tylenol Extra Strength] 500 MG tablet 1,000 mg PO Q6H PRN RF: 0 levothyroxine 125 MCG tablet 125 mcg PO DAILY RF: 0 Flovent HFA 220 mcg/actuation HFA aerosol inhaler 220 mcg Inhalation BID PRNRF: 0 simvastatin 20 MG tablet 20 mg PO DAILY RF: 0 aspirin [Aspir-81] 81 MG tablet,delayed release (DR/EC) 81 mg PO DAILY RF: 0 loratadine 10 mg Capsule 10 mg PO DAILY RF: 0 pramipexole 1 MG tablet 1 mg PO DAILY RF: 0 erythromycin 5 mg/gram (0.5 %) Ointment 0.5 inch OPHTHALMIC (EYE) QID RF: 0 Discharge Instructions Instructions: Diverticulitis (ED), Diverticulitis Diet (ED) Additional Instructions: Please take antibiotics as prescribed. Use acetaminophen or ibuprofen as needed for discomfort. Follow-up with primary care next week. Return to the emergency department for high fever, vomiting, worsening abdominal pain. Referrals: Daniel Hinkle [Primary Care Provider] - Discharge Data Discharge Date/Time-TO BE ENTERED AT DEPARTURE: 10/29/18 13:31 Medical Decision Making Patient presenting with lower abdominal pain, she reports for the last week, worse in the last 2 days. Seen here yesterday for eye problem but did not discuss abdominal pain with the provider. She does not have a surgical abdomen. She does have previous history of diverticulitis. Will place IV and check laboratory studies as well as get CT of the abdomen pelvis. Patient remains afebrile. She remains unchanged. Laboratory studies are unremarkable. White count is normal. Urinalysis is negative. CT scan does show evidence of acute diverticulitis without perforation or abscess. Patient does not require admission. We will start her on oral Cipro and Flagyl for treatment. Tylenol or Motrin for pain. Follow-up with her doctor in the week if not doing better. Return to ED if fever, worsening pain, vomiting, other concerns. Lab Data Lab results reviewed: Yes I reviewed the patient's lab results. HPI General Mode of arrival: ambulatory. Date/Time Provider Initiated Documentation: 10/29/18 10:56. Limitations to Documentation: no limitations. Information obtained by: patient. HPI Narrative: Patient presents to the ED with complaint of lower abdominal pain for about a week now. It has been worse yesterday and today. She was actually in the ED yesterday for an eye problem and did not mention anything to the provider then about abdominal pain. She had a normal bowel movement this morning. She has had no nausea/vomiting. She is able to eat and drink. She has had no fever. She has no urinary symptoms other than a pressure feeling in the lower abdomen. She does feel bloated. She has a history of diverticulitis. She has a friend upstairs just had surgery for diverticulitis. Because the pain is worse she decided to come here to be evaluated. Related Data Home Medications Medication Instructions Recorded Confirmed simvastatin 20 mg PO DAILY 11/15/12 10/29/18 aspirin [Aspir-81] 81 mg PO DAILY 06/07/15 10/29/18 hydroxychloroquine 200 mg PO DAILY #30 tab-cap 11/16/16 10/29/18 acetaminophen [Tylenol Extra 1,000 mg PO Q6H PRN tab-cap 05/25/17 10/29/18 Strength] levothyroxine 125 mcg PO DAILY tab-cap 05/25/17 10/29/18 pramipexole 1 mg PO DAILY 12/01/17 10/29/18 albuterol sulfate HFA 90 2 puff INHALATION Q6H PRN inh 10/04/18 10/29/18 mcg/actuation aerosol inhaler fluticasone propionate 220 220 mcg INHALATION BID PRN inhaler 10/04/18 10/29/18 mcg/actuation HFA aerosol inhaler loratadine 10 mg PO DAILY 10/28/18 10/29/18 ciprofloxacin HCl 500 mg PO BID #20 tab 10/29/18 erythromycin 0.5 inch OPHTHALMIC (EYE) QID 10/29/18 10/29/18 metronidazole [Flagyl] 500 mg PO TID #30 tab 10/29/18 Previous Rx's Medication Instructions Recorded ciprofloxacin HCl 500 mg PO BID #20 tab 10/29/18 metronidazole [Flagyl] 500 mg PO TID #30 tab 10/29/18 Allergies Allergy/AdvReac Type Severity Reaction Status Date / Time No Known Allergies Allergy Verified 10/28/18 10:09 General Stated Complaint: Abd Prob PRISCILLA: 3 Review of Systems Constitutional Denies chills, Denies fever(s), Denies headache(s), Denies malaise, Denies poor appetite and Denies weakness Eyes Denies change in vision, Denies eye discharge, Reports irritation and Denies eye pain ENT Denies dizziness, Denies otalgia, Denies facial pain, Denies headache(s), Denies neck pain and Denies sinus pressure Cardiovascular Denies chest pain, Denies syncope, Denies pedal edema and Denies dyspnea Respiratory Denies cough and Denies dyspnea Gastrointestinal Reports abdominal pain, Denies diarrhea, Denies nausea and Denies vomiting Genitourinary Denies dysuria and Denies pelvic pain Musculoskeletal Denies back pain, Denies neck pain and Denies numbness Integumentary/Breasts Denies rash Neurologic Denies dizziness, Denies syncope, Denies headache(s), Denies focal weakness, Denies numbness and Denies weakness [facility] Medical History Incisional hernia of anterior abdominal wall without obstruction or gangrene (Chronic) Constipation (Chronic) HTN (hypertension) (Chronic) GERD (gastroesophageal reflux disease) (Chronic) Diverticulitis of sigmoid colon (Resolved) Lupus (Chronic) Abnormal mammogram of right breast (Chronic) Allergic rhinitis (Chronic) Amyloidosis (Chronic) Antiphospholipid syndrome (Chronic) Asthma (Chronic) Degenerative joint disease (Chronic) Eczema (Chronic) Hyperlipidemia (Chronic) Insomnia (Chronic) Acute Lyme disease (Resolved) Chest wall pain (Resolved) Hypocalcemia (Resolved) Pericarditis (Resolved) Sciatica, left side (Resolved) Surgical History H/O: hysterectomy (Inactive) S/P thyroidectomy (Inactive) Tonsillectomy (Inactive) Social History Smoking/Tobacco Use Status: Former Tobacco Use Alcohol Intake: current Alcohol Intake frequency: a few times a month Drug use: Never Substance use type: does not use Do you feel safe at home: Yes Do you feel safe in your relationship?: Yes Exam Const General: cooperative and no acute distress Nutritional Appearance: average body habitus Orientation: oriented x3 [facility] Head: normocephalic and atraumatic Mouth: moist mucous membranes Eyes Conjunctivae: conjunctivae normal Sclera: sclerae normal Cornea: corneas normal Neck Neck: full ROM, trachea midline and supple Resp Effort & Inspection: normal respiratory effort Auscultation: clear to auscultation bilaterally Cardio Rate: regular rate Rhythm: regular rhythm Heart Sounds: S1 normal and S2 normal GI Inspection: normal to inspection and non-distended Palpation: soft, not firm, no guarding and nontender Back/Spine/Pelvis Back: no CVA tenderness Thoracic/Lumbar Spine: thoraco-lumbar ROM normal Skin Rashes: no rashes Neuro General: alert, oriented x3, gait normal, no focal motor deficits and CN's II-XI intact bilaterally Cognition: normal cognition Speech: speech normal Course Vital Signs Temperature 97.3 F L 10/29/18 09:51 Pulse 67 10/29/18 09:51 Respiratory Rate 18 10/29/18 09:51 Blood Pressure 141/64 H 10/29/18 09:51 Pulse Oximetry 97 10/29/18 09:51 Temperature 97.3 F L 10/29/18 09:51 Temperature Source Temporal Artery Scan 10/29/18 09:51 Pulse 67 10/29/18 09:51 Respiratory Rate 18 10/29/18 09:51 Respiratory Effort Non-Labored 10/29/18 09:56 Blood Pressure 141/64 H 10/29/18 09:51 Blood Pressure Position Sitting 10/29/18 09:51 Pulse Oximetry 97 10/29/18 09:51 Oxygen Delivery Method Room Air 10/29/18 09:51 Oxygen Flow Rate 0 10/29/18 09:51 Pain Level 3 10/29/18 09:58
--- NOTE | 2018-10-29 11:01 | ED.GENADUL_ITS ---
Discharge Plan Disposition Patient Disposition: HOME Condition: Good Discharge Details Chief Complaint: Abd Prob Clinical Impression: Diverticulitis large intestine w/o perforation or abscess w/o bleeding Primary Care Provider: Daniel Hinkle ED Provider: Gregg Velásquez [place] Meds and New Rx's Prescriptions: New ciprofloxacin HCl 500 mg tablet 500 mg PO BID Qty: 20 RF: 0 metronidazole [Flagyl] 500 mg tablet 500 mg PO TID Qty: 30 RF: 0 Continued albuterol sulfate [ProAir HFA] 90 mcg/actuation HFA aerosol inhaler 2 puff Inhalation Q6H PRN (Reason: shortness of breath) RF: 0 hydroxychloroquine 200 MG tablet 200 mg PO DAILY Qty: 30 RF: 11 acetaminophen [Tylenol Extra Strength] 500 MG tablet 1,000 mg PO Q6H PRN RF: 0 levothyroxine 125 MCG tablet 125 mcg PO DAILY RF: 0 Flovent HFA 220 mcg/actuation HFA aerosol inhaler 220 mcg Inhalation BID PRNRF: 0 simvastatin 20 MG tablet 20 mg PO DAILY RF: 0 aspirin [Aspir-81] 81 MG tablet,delayed release (DR/EC) 81 mg PO DAILY RF: 0 loratadine 10 mg Capsule 10 mg PO DAILY RF: 0 pramipexole 1 MG tablet 1 mg PO DAILY RF: 0 erythromycin 5 mg/gram (0.5 %) Ointment 0.5 inch OPHTHALMIC (EYE) QID RF: 0 Discharge Instructions Instructions: Diverticulitis (ED), Diverticulitis Diet (ED) Additional Instructions: Please take antibiotics as prescribed. Use acetaminophen or ibuprofen as needed for discomfort. Follow-up with primary care next week. Return to the emergency department for high fever, vomiting, worsening abdominal pain. Referrals: Daniel Hinkle [Primary Care Provider] - Discharge Data Discharge Date/Time-TO BE ENTERED AT DEPARTURE: 10/29/18 13:31 Medical Decision Making Patient presenting with lower abdominal pain, she reports for the last week, worse in the last 2 days. Seen here yesterday for eye problem but did not discuss abdominal pain with the provider. She does not have a surgical abdomen. She does have previous history of diverticulitis. Will place IV and check laboratory studies as well as get CT of the abdomen pelvis. Patient remains afebrile. She remains unchanged. Laboratory studies are unremarkable. White count is normal. Urinalysis is negative. CT scan does show evidence of acute diverticulitis without perforation or abscess. Patient does not require admission. We will start her on oral Cipro and Flagyl for treatment. Tylenol or Motrin for pain. Follow-up with her doctor in the week if not doing better. Return to ED if fever, worsening pain, vomiting, other concerns. Lab Data Lab results reviewed: Yes I reviewed the patient's lab results. HPI General Mode of arrival: ambulatory . Date/Time Provider Initiated Documentation: 10/29/18 10:56 . Limitations to Documentation: no limitations . Information obtained by: patient . HPI Narrative: Patient presents to the ED with complaint of lower abdominal pain for about a week now. It has been worse yesterday and today. She was actually in the ED yesterday for an eye problem and did not mention anything to the provider then about abdominal pain. She had a normal bowel movement this morning. She has had no nausea/vomiting. She is able to eat and drink. She has had no fever. She has no urinary symptoms other than a pressure feeling in the lower abdomen. She does feel bloated. She has a history of diverticulitis. She has a friend upstairs just had surgery for di verticulitis. Because the pain is worse she decided to come here to be evaluated. Related Data Home Medications Medication Instructions Recorded Confirmed simvastatin 20 mg PO DAILY 11/15/12 10/29/18 aspirin [Aspir-81] 81 mg PO DAILY 06/07/15 10/29/18 hydroxychloroquine 200 mg PO DAILY #30 tab-cap 11/16/16 10/29/18 acetaminophen [Tylenol Extra 1,000 mg PO Q6H PRN tab-cap 05/25/17 10/29/18 Strength] levothyroxine 125 mcg PO DAILY tab-cap 05/25/17 10/29/18 pramipexole 1 mg PO DAILY 12/01/17 10/29/18 albuterol sulfate HFA 90 2 puff INHALATION Q6H PRN inh 10/04/18 10/29/18 mcg/actuation aerosol inhaler fluticasone propionate 220 220 mcg INHALATION BID PRN inhaler 10/04/18 10/29/18 mcg/actuation HFA aerosol inhaler loratadine 10 mg PO DAILY 10/28/18 10/29/18 ciprofloxacin HCl 500 mg PO BID #20 tab 10/29/18 erythromycin 0.5 inch OPHTHALMIC (EYE) QID 10/29/18 10/29/18 metronidazole [Flagyl] 500 mg PO TID #30 tab 10/29/18 Previous Rx's Medication Instructions Recorded ciprofloxacin HCl 500 mg PO BID #20 tab 10/29/18 metronidazole [Flagyl] 500 mg PO TID #30 tab 10/29/18 Allergies Allergy/AdvReac Type Severity Reaction Status Date / Time No Known Allergies Allergy Verified 10/28/18 10:09 General Stated Complaint: Abd Prob PRISCILLA: 3 Review of Systems Constitutional Denies chills, Denies fever(s), Denies headache(s), Denies malaise, Denies poor appetite and Denies weakness Eyes Denies change in vision, Denies eye discharge, Reports irritation and Denies eye pain ENT Denies dizziness, Denies otalgia, Denies facial pain, Denies headache(s), Denies neck pain and Denies sinus pressure Cardiovascular Denies chest pain, Denies syncope, Denies pedal edema and Denies dyspnea Respiratory Denies cough and Denies dyspnea Gastrointestinal Reports abdominal pain, Denies diarrhea, Denies nausea and Denies vomiting Genitourinary Denies dysuria and Denies pelvic pain Musculoskeletal Denies back pain, Denies neck pain and Denies numbness Integumentary/Breasts Denies rash Neurologic Denies dizziness, Denies syncope, Denies headache(s), Denies focal weakness, Denies numbness and Denies weakness [facility] Medical History Incisional hernia of anterior abdominal wall without obstruction or gangrene (Chronic) Constipation (Chronic) HTN (hypertension) (Chronic) GERD (gastroesophageal reflux disease) (Chronic) Diverticulitis of sigmoid colon (Resolved) Lupus (Chronic) Abnormal mammogram of right breast (Chronic) Allergic rhinitis (Chronic) Amyloidosis (Chronic) Antiphospholipid syndrome (Chronic) Asthma (Chronic) Degenerative joint disease (Chronic) Eczema (Chronic) Hyperlipidemia (Chronic) Insomnia (Chronic) Acute Lyme disease (Resolved) Chest wall pain (Resolved) Hypocalcemia (Resolved) Pericarditis (Resolved) Sciatica, left side (Resolved) Surgical History H/O: hysterectomy (Inactive) S/P thyroidectomy (Inactive) Tonsillectomy (Inactive) Social History Smoking/Tobacco Use Status: Former Tobacco Use Alcohol Intake: current Alcohol Intake frequency: a few times a month Drug use: Never Substance use type: does not use Do you feel safe at home: Yes Do you feel safe in your relationship?: Yes Exam Const General: cooperative and no acute distress Nutritional Appearance: average body habitus Orientation: oriented x3 [facility] Head: normocephalic and atraumatic Mouth: moist mucous membranes Eyes Conjunctivae: conjunctivae normal Sclera: sclerae normal Cornea: corneas normal Neck Neck: full ROM, trachea midline and supple Resp Effort & Inspection: normal respiratory effort Auscultation: clear to auscultation bilaterally Cardio Rate: regular rate Rhythm: regular rhythm Heart Sounds: S1 normal and S2 normal GI Inspection: normal to inspection and non-distended Palpation: soft, not firm, no guarding and nontender Back/Spine/Pelvis Back: no CVA tenderness Thoracic/Lumbar Spine: thoraco-lumbar ROM normal Skin Rashes: no rashes Neuro General: alert, oriented x3, gait normal, no focal motor deficits and CN's II-XI intact bilaterally Cognition: normal cognition Speech: speech normal Course Vital Signs Temperature 97.3 F L 10/29/18 09:51 Pulse 67 10/29/18 09:51 Respiratory Rate 18 10/29/18 09:51 Blood Pressure 141/64 H 10/29/18 09:51 Pulse Oximetry 97 10/29/18 09:51 Temperature 97.3 F L 10/29/18 09:51 Temperature Source Temporal Artery Scan 10/29/18 09:51 Pulse 67 10/29/18 09:51 Respiratory Rate 18 10/29/18 09:51 Respiratory Effort Non-Labored 10/29/18 09:56 Blood Pressure 141/64 H 10/29/18 09:51 Blood Pressure Position Sitting 10/29/18 09:51 Pulse Oximetry 97 10/29/18 09:51 Oxygen Delivery Method Room Air 10/29/18 09:51 Oxygen Flow Rate 0 10/29/18 09:51 Pain Level 3 10/29/18 09:58
--- NOTE | 2018-10-29 11:06 | DI.CT_ITS ---
SYMPTOMS/DIAGNOSIS: LOWER ABDOMINAL PAIN WORSENING OVER A WEEK, HX OF DIVERTICULITIS CT SCAN OF THE ABDOMEN AND PELVIS: CT scan of the abdomen and pelvis was performed following the uneventful administration of intravenous contrast material. No acute findings are seen in the lung bases. The liver is normal in size. There are tiny hypodense lesions seen in the liver. They are too small for further characterization but likely reflect cysts. No suspicious hepatic mass is seen. The portal, superior mesenteric and splenic veins are patent. The gallbladder is negative. There is no biliary ductal dilatation. The pancreas, spleen and adrenal glands are unremarkable. The kidneys show normal and symmetric enhancement. No solid renal mass or obstruction is identified. The urinary bladder is intact. The patient appears to be status post hysterectomy. The abdominal aorta shows no evidence of aneurysm. No significant abdominal or pelvic adenopathy, ascites or pneumoperitoneum is present. There is diverticulosis seen throughout the colon. There is focal bowel wall thickening and pericolonic inflammatory change seen in the mid sigmoid colon most likely reflecting acute diverticulitis. There is a normal appendix present. The bones appear intact. IMPRESSION: Findings consistent with acute sigmoid diverticulitis. No abscess or free air. The findings were discussed with Dr. Velásquez of the emergency department on the date of the examination.
[2018-10-29 11:24] LABS: Abs Immature Grans 0.02 k/cumm (0.0-0.09); Absolute Basophil Count 0.02 k/cumm (0.0-0.2); Absolute Lymphocyte Count 0.83 k/cumm (1.2-3.4); Absolute Monocyte Count 0.58 k/cumm (0.11-0.7); Basophils % 0.2; HCT 42.5 % (36.0-46.0); HGB 14.5 g/dL (12.0-15.5); Immature Grans % 0.2; Lymphocytes % 8.3; Mean Corp. HGB Concentration 34.1 g/dL (32.0-36.0); Mean Corpuscular Volume 82.2 fL (80-95); Mean Platelet Volume 9.1 fL (8.0-11.0); Monocytes % 5.8; Neutrophils % 84.5; Platelet Count 320 x1000/uL (130-400); RBC 5.17 m/cumm (4.00-5.20); RBC Distribution Width 13.2 % (11.7-14.6); White Blood Cell Count 9.95 k/cumm (4.4-10.8)
[2018-10-29] MEDS: Normal Saline 1,000 ML 1000 ML IV (11:32)
[2018-10-29 11:34] LABS: Bilirubin Negative (Negative); Blood Negative (Negative); Clarity Clear; Glucose Negative (Negative); Ketones Trace mg/dL (Negative); Leukocyte Esterase Trace (Negative); Nitrite Negative (Negative); Specific Gravity 1.025 (1.005-1.025); Urobilinogen 0.2 EU/dL (Up TO 0.2); pH 6.5 (5-8)
[2018-10-29 11:42] LABS: RBC Negative (0-2)
[2018-10-29 11:43] LABS: Bacteria Few HPF (Negative); C & S Indicated? Yes; Casts Negative LPF (Negative); Crystals Negative HPF (Negative); Epithelial Cells Few HPF (Negative); Mucus Moderate (Negative)
[2018-10-29 11:48] LABS: Lipase 121 U/L (73-393)
[2018-10-29 11:55] LABS: ALT 30 U/L (12-78); AST 42 U/L (15-37); Albumin 3.7 g/dL (3.4-5.0); Alkaline Phosphatase 106 U/L (46-116); Anion Gap 9.4 mmol/L (3-11); BUN 12 mg/dL (7-18); Bilirubin, Total 0.4 mg/dL (0.2-1.0); CO2 28.6 mmol/L (21.0-32.0); CREATININE 0.72 mg/dL (0.55-1.02); Calcium 8.4 mg/dL (8.5-10.1); Chloride 100 mmol/L (98-107); Glucose 98 mg/dL (70-100); Potassium 3.4 mmol/L (3.5-5.1); Sodium 138 mmol/L (136-145); Total Protein 7.2 g/dL (6.4-8.2)
[2018-10-29] MEDS: Omnipaque 350 MG/ML 100 ML BTL IJ (12:59)
[2018-10-29] MEDS: Ciprofloxacin 500 MG TAB PO (13:19)
[2018-10-29] MEDS: metroNIDAZOLE 500 MG TAB PO (13:19)
[2018-10-29 13:21] VITALS: BP 138/69; PULSE 65; RESP 18; TEMP 36.5; O2SAT 99
[2018-10-29 13:30] VITALS: BP 138/69; PULSE 65; RESP 18; TEMP 36.5; O2SAT 99
== END 2018-10-29 13:31 | disposition home or self-care (01) ==
PROVIDERS: Emergency Provider Emergency Medicine; PCP Family Medicine
DX: K57.30 Diverticulosis of large intestine without perforation or abscess without bleeding (principal); I10 Essential (primary) hypertension
CPT/HCPCS: 36415; 80053; 83690; 96360; 99285; 74177; 81003; 81015; 83735; 85025; 87086; 99284; J3490

== ENCOUNTER 2018-11-13 07:10 | Day surgery (SDC) | payer MEDICAID, SELFPAY ==
[2018-11-13 07:26] VITALS: BP 135/76; PULSE 66; RESP 16; TEMP 35.6; O2SAT 99
[2018-11-13] MEDS: Lactated Ringers 1,000 ML 80 ML IV (07:54)
--- NOTE | 2018-11-13 09:22 | BOWEL_PTH ---
PATIENT: Francie Yusuf LOC: [facility] U#:[id number] AGE/SX: 58/F ROOM: RE11/13/[address]: Natalya Styles : 1960 BED: DIS: 11/13/2018 SPEC #: [id number] RECD: 11/13/18 13:12 STATUS: TERRANCE RE #: [id number] BISI: 11/13/18 09:[address]: Natalya Styles DEPT: Surgical Specimen RECD BY: Kerri Diaz ENTERED: 11/13/18 13:14 SP TYPE: Bowel OTHR DR: Daniel Hinkle Tissues: 1 - BIOPSY BOWEL Procedures: GROSS AND MICRO LEVEL 4 Comments: [id number]
--- NOTE | 2018-11-13 09:36 | W.COLOREPORT ---
Date of service: 11/13/18 Time of Service: 09:36 Colonoscopy Report Date of procedure: 11/13/18 Pre-op diagnosis general: diverticulits- not resolving Post-op diagnosis procedure note: other Procedure: flex sig Surgeon: Natalya Styles Anesthesia proc note operative: GETA Estimated blood loss (mL): 2 Pathology: other Complications: Other Disposition: PACU Indications: diverticlitis that is not resolving despite mult. rounds of abx Prep: Miralax Findings: severe divertic. no signs of acute infection. scope would not go pass 30cm secondary to narrowing of colon. will send for BE today Procedure Description: After informed consent was obtained the patient was taken to the procedure room and placed in a left decubitous position. Monitors were applied and a time out was done. The patients name, date of , procedure, allergies to medications and metal in their body was reviewed. The patient was then sedated. Once sedated and comfortable a rectal exam was done. External exam was normal. Internal exam revealed a normal sphincter tone and no palpable masses. The scope was then introduced and retrofelexed. no internal hemorrhoids were identified. She has mult. lg mouthed tics. no signs of bleeding or active infection. scope will not go pass 30cm. appears to be from stricture. will send for BE today. The patient tolerated the procedure well and there were no immediate complications. Follow up: in 1 wks time after BE.
[2018-11-13 10:15] VITALS: BP 143/87; PULSE 56; RESP 16; TEMP 35.6; O2SAT 98
== END 2018-11-13 10:48 | disposition home or self-care (01) ==
PROVIDERS: PCP Family Medicine; Visit Provider Surgery
PROC: 0DJD8ZZ Inspection of Lower Intestinal Tract, Via Natural or Artificial Opening Endoscopic (ICD-10-PCS; CPT 45378; principal; 2018-11-13 08:30)
DX: Z09 Encounter for follow-up examination after completed treatment for conditions other than malignant neoplasm (principal); K57.32 Diverticulitis of large intestine without perforation or abscess without bleeding; K57.30 Diverticulosis of large intestine without perforation or abscess without bleeding; K56.699 Other intestinal obstruction unspecified as to partial versus complete obstruction; K63.5 Polyp of colon; I10 Essential (primary) hypertension; K21.9 Gastro-esophageal reflux disease without esophagitis
CPT/HCPCS: 45380; 88305

== ENCOUNTER 2018-11-21 00:24 | Outpatient (CLI) | payer MEDICAID, SELFPAY ==
--- NOTE | 2018-11-21 11:39 | DI.RAD_ITS ---
SYMPTOMS/DIAGNOSIS: SIGMOID STRICTURE, F/U BIOPSY ON 11/13, H/O DIVERTICULITIS BARIUM ENEMA: Fluoroscopy Time: 2 min 27 sec Air contrast barium enema was performed according to protocol. Preliminary view of the abdomen shows no evidence of obstruction. There is diverticulosis seen throughout the colon. No ulcers or strictures are seen. There is a retrocecal appendix present. There is reflux seen into the small bowel. No extrinsic or intrinsic masses are appreciated. IMPRESSION: 1. Extensive diverticulosis of the colon. 2. No evidence of a stricture.
== END 2018-11-21 00:44 ==
PROVIDERS: PCP Family Medicine; Visit Provider Surgery
DX: K56.699 Other intestinal obstruction unspecified as to partial versus complete obstruction (principal); K57.30 Diverticulosis of large intestine without perforation or abscess without bleeding
CPT/HCPCS: 74280

== ENCOUNTER 2018-12-10 12:07 | Emergency (ER) | payer MEDICAID, SELFPAY ==
[2018-12-10 12:11] VITALS: BP 145/67; PULSE 74; RESP 16; TEMP 36.6; O2SAT 96
--- NOTE | 2018-12-10 12:26 | DI.RAD_ITS ---
SYMPTOMS/DIAGNOSIS: COUGH, CONGESTION CHEST X-RAY, FRONTAL AND LATERAL VIEWS: Comparison is 01/17/18. The heart size and pulmonary vasculature are within normal limits. No focal consolidating infiltrates or effusions are seen. Mild degenerative changes are seen in the spine. IMPRESSION: No definite acute pulmonary process.
--- NOTE | 2018-12-10 12:30 | W.ED.GENAD ---
Discharge Plan Disposition Patient Disposition: HOME Condition: Stable Discharge Details Chief Complaint: RespSymp Clinical Impression: Pneumonia Primary Care Provider: Daniel Hinkle ED Provider: Gabriel Sutton Home Meds and New Rx's Prescriptions: New benzonatate 200 mg capsule 200 mg PO TID PRN (Reason: cough) Qty: 30 RF: 0 doxycycline hyclate 100 mg tablet 100 mg PO BID Qty: 14 RF: 0 Continued albuterol sulfate [ProAir HFA] 90 mcg/actuation HFA aerosol inhaler 2 puff Inhalation Q6H PRN (Reason: shortness of breath) RF: 0 hydroxychloroquine 200 MG tablet 200 mg PO DAILY Qty: 30 RF: 11 levothyroxine 125 MCG tablet 125 mcg PO HS RF: 0 Flovent HFA 220 mcg/actuation HFA aerosol inhaler 220 mcg Inhalation BID PRNRF: 0 simvastatin 20 MG tablet 20 mg PO DAILY RF: 0 aspirin [Aspir-81] 81 MG tablet,delayed release (DR/EC) 81 mg PO DAILY RF: 0 loratadine 10 mg Capsule 10 mg PO DAILY RF: 0 acetaminophen [Tylenol Extra Strength] 500 mg Tablet 2 RF: 0 pramipexole 1 MG tablet 2 mg PO HS RF: 0 Discharge Instructions Instructions: Pneumonia (ED) Additional Instructions: Return immediately to the emergency department for any new or worsening symptoms, difficulty breathing, or not improving. Otherwise take your medication as prescribed and follow-up with your primary care provider for reassessment Referrals: Daniel Hinkle [Primary Care Provider] - 1 week (Call the office for arrangement of reassessment in the next week) Discharge Data Discharge Date/Time-TO BE ENTERED AT DEPARTURE: 12/10/18 13:57 Medical Decision Making Patient presenting the emergency department for chief complaint of nasal congestion and cough. Patient states that she started having significant nasal congestion 5 days ago and a cough. Over the last couple days the cough is severely worsened causing her not to be able to get any sleep last night. Patient denies any knowledge of fever but has not felt well since this started. Patient does have chronic sinus issues but states that the cough is different. Patient is a former smoker but quit years ago. Physical exam shows stable vital signs with no tachycardia or hypoxia and patient is afebrile, lung sounds show diffuse Rales with right lower lung wheezes, otherwise normal cardiac exam and some sinus tenderness otherwise unremarkable HEENT exam. To have concern for pneumonia given that patient normally has clear lung sounds and her stated worsening cough so chest x-ray was ordered. Pending results patient given DuoNeb to see if this improves her symptoms Pending x-ray results patient was reassessed and had very minimal improvement with nebulizer. Patient still remained stable and nontoxic in appearance. Review of radiological imaging and radiologist interpretation shows radiologist stating no acute findings noted. Compared to previous chest x-ray there is question of may be slight infiltrate in right lower lobe but this is not a definitive finding. Given that patient is having wheezing and abnormal breath sounds which is not her normal and feeling some malaise I am concerned for pneumonia also given that symptoms have been persistent and worsening over the last 5 days. Patient has recently been on amoxicillin and cephalosporin for sinus infections approximately 1 month ago so given this patient placed up on doxycycline for 1 week. Patient was encouraged to follow-up with primary care for reassessment. Return precautions discussed after discussion of diagnosis and plan of care patient has no further needs, questions, or concerns and states clear understanding to return to the emergency department for any worsening symptoms. HPI General Mode of arrival: ambulatory. Date/Time Provider Initiated Documentation: 12/10/18 12:14. Limitations to Documentation: no limitations. Information obtained by: patient and RN notes reviewed. History of Present Illness 58 year old F presents to the emergency department with the chief complaint of nasal congestion, cough, described as moderate and similar to prior episodes, Patient started experiencing this day(s) (5) and it has been constant. No relieving factors improve symptom(s), Related Data Home Medications Medication Instructions Recorded Confirmed simvastatin 20 mg PO DAILY 11/15/12 12/10/18 aspirin [Aspir-81] 81 mg PO DAILY 06/07/15 12/10/18 hydroxychloroquine 200 mg PO DAILY #30 tab-cap 11/16/16 12/10/18 levothyroxine 125 mcg PO HS tab-cap 05/25/17 12/10/18 pramipexole 2 mg PO HS 12/01/17 12/10/18 albuterol sulfate HFA 90 2 puff INHALATION Q6H PRN inh 10/04/18 12/10/18 mcg/actuation aerosol inhaler fluticasone propionate 220 220 mcg INHALATION BID PRN inhaler 10/04/18 12/10/18 mcg/actuation HFA aerosol inhaler loratadine 10 mg PO DAILY 10/28/18 12/10/18 acetaminophen [Tylenol Extra 2 12/10/18 Strength] benzonatate 200 mg PO TID PRN #30 cap 12/10/18 doxycycline hyclate 100 mg PO BID #14 tab 12/10/18 Previous Rx's Medication Instructions Recorded benzonatate 200 mg PO TID PRN #30 cap 12/10/18 doxycycline hyclate 100 mg PO BID #14 tab 12/10/18 Allergies Allergy/AdvReac Type Severity Reaction Status Date / Time No Known Allergies Allergy Verified 12/10/18 12:14 General Stated Complaint: RespSymp PRISCILLA: 4 Review of Systems Constitutional Denies chills, Denies fever(s) and Denies headache(s) ENT Reports as per HPI, Denies ear discharge, Denies otalgia, Denies headache(s), Reports nasal congestion, Reports nasal discharge, Denies neck pain, Reports sinus pain, Reports sinus pressure, Denies sore throat and Denies throat swelling Cardiovascular Denies chest pain and Denies dyspnea Respiratory Reports cough and Denies dyspnea Musculoskeletal Denies joint swelling and Denies neck pain Integumentary/Breasts Denies rash Neurologic Denies headache(s) Allergic/Immunologic Denies throat swelling [facility] Medical History Incisional hernia of anterior abdominal wall without obstruction or gangrene (Chronic) Constipation (Chronic) HTN (hypertension) (Chronic) GERD (gastroesophageal reflux disease) (Chronic) Diverticulitis of sigmoid colon (Resolved) Lupus (Chronic) Abnormal mammogram of right breast (Chronic) Allergic rhinitis (Chronic) Amyloidosis (Chronic) Antiphospholipid syndrome (Chronic) Asthma (Chronic) Degenerative joint disease (Chronic) Eczema (Chronic) Hyperlipidemia (Chronic) Insomnia (Chronic) Acute Lyme disease (Resolved) Chest wall pain (Resolved) Hypocalcemia (Resolved) Normal colonoscopy (Resolved) Pericarditis (Resolved) Sciatica, left side (Resolved) Surgical History History of bone marrow biopsy (Acute) H/O: hysterectomy (Inactive) S/P thyroidectomy (Inactive) Tonsillectomy (Inactive) Social History Smoking/Tobacco Use Status: Former Tobacco Use Alcohol Intake: current Alcohol Intake frequency: a few times a month Drug use: Never Substance use type: does not use Do you feel safe at home: Yes Do you feel safe in your relationship?: Yes Exam Const General: cooperative, comfortable and no acute distress Orientation: alert and awake [facility] Head: normal to inspection, normocephalic and atraumatic Ears: hearing grossly normal bilaterally and TM's normal bilaterally General nose exam: external nose normal Face and sinus: no erythema and sinus tenderness frontal, ethmoid and maxillary Mouth: oral mucosae normal, no drooling, no muffled voice and no trismus Throat: posterior oropharynx normal, tonsils normal and uvula midline Neck Neck: normal visual inspection, full ROM, no lymphadenopathy, no meningeal signs, trachea midline and supple Resp Effort & Inspection: normal respiratory effort and able to speak in complete sentences Auscultation: rales bilaterally throughout and wheezes expiratory wheezes and right lower Cardio Rate: regular rate Rhythm: regular rhythm Heart Sounds: S1 normal, S2 normal, normal S1 and S2, no click, no gallops, no murmurs and no rubs Skin General skin exam: no rashes or lesions noted and dry skin (warm) Neuro General: alert, awake, oriented x3, gait normal and moves all extremities Cognition: normal cognition Speech: speech normal Course Vital Signs Temperature 36.6 C 12/10/18 12:11 Pulse 74 12/10/18 12:11 Respiratory Rate 16 12/10/18 12:11 Blood Pressure 145/67 H 12/10/18 12:11 Pulse Oximetry 96 12/10/18 12:11 Temperature 36.6 C 12/10/18 12:11 Temperature Source Temporal Artery Scan 12/10/18 12:11 Pulse 74 12/10/18 12:11 Respiratory Rate 16 12/10/18 12:11 Blood Pressure 145/67 H 12/10/18 12:11 Blood Pressure Position Sitting 12/10/18 12:11 Pulse Oximetry 96 12/10/18 12:11 Oxygen Delivery Method Room Air 12/10/18 12:11 Oxygen Flow Rate 0 12/10/18 12:11 Pain Level 0 12/10/18 12:11
[2018-12-10 12:38] VITALS: RESP 1
[2018-12-10] MEDS: Albuterol/Ipratropium 3 ML UPD VIAL UPD (12:38)
[2018-12-10 13:08] VITALS: RESP 1
[2018-12-10] MEDS: Doxycycline Hyclate 100 MG CAP PO (13:40)
== END 2018-12-10 13:57 | disposition home or self-care (01) ==
PROVIDERS: Emergency Provider Nurse Practitioner Family; PCP Family Medicine
DX: J18.9 Pneumonia, unspecified organism (principal); I10 Essential (primary) hypertension; Z87.891 Personal history of nicotine dependence
CPT/HCPCS: 94640; 99283; 71046; J7620

== ENCOUNTER 2018-12-17 11:46 | Day surgery (SDC) | payer MEDICAID, SELFPAY ==
[2018-12-17 12:10] VITALS: BP 153/72; PULSE 70; RESP 16; TEMP 36.6; O2SAT 97
[2018-12-17] MEDS: Lidocaine 2% Multi-Dose 50 ML VIAL (15:25)
--- NOTE | 2018-12-17 15:42 | PDOC.DSDIS_ITS ---
Discharge Plan Disposition Patient Disposition: HOME Condition: Good Discharge Details Reason For Visit: Bilateral trigger thumb release Attending Provider: Ke Virk Primary Care Provider: Daniel Hinkle Home Meds and New Rx's Prescriptions: New hydrocodone-acetaminophen 5-325 mg tablet 1 tab PO Q6H PRN (Reason: pain) Qty: 7 RF: 0 Continued albuterol sulfate [ProAir HFA] 90 mcg/actuation HFA aerosol inhaler 2 puff Inhalation Q6H PRN (Reason: shortness of breath) RF: 0 hydroxychloroquine 200 MG tablet 200 mg PO DAILY Qty: 30 RF: 11 levothyroxine 125 MCG tablet 125 mcg PO HS RF: 0 Flovent HFA 220 mcg/actuation HFA aerosol inhaler 220 mcg Inhalation BID PRNRF: 0 simvastatin 20 MG tablet 20 mg PO DAILY RF: 0 aspirin [Aspir-81] 81 MG tablet,delayed release (DR/EC) 81 mg PO DAILY RF: 0 loratadine 10 mg Capsule 10 mg PO DAILY RF: 0 acetaminophen [Tylenol Extra Strength] 500 mg Tablet 2 RF: 0 benzonatate 200 mg capsule 200 mg PO TID PRN (Reason: cough) Qty: 30 RF: 0 doxycycline hyclate 100 mg tablet 100 mg PO BID Qty: 14 RF: 0 pramipexole 1 MG tablet 2 mg PO HS RF: 0 Discharge Instructions Additional Instructions: Bend and straighten both thumbs 10 times/hour when awake, to decrease swelling and pain. Keep dressings dry and in place for 48 hours. After 48 hours, remove dressings to shower or bathe and get incisions wet. Leave incisions uncovered when they are dry and sealed. Take hydrocodone for breakthru pain, not relieved by tylenol or ibuprofen. Follow up with in 10-14 days. Use both hands as much as your discomfort allows. Referrals: Ke Virk MD [ [facility] STAFF PHYSICIAN] - (f/u in 10-14 days.) Activity:: Activity as Tolerated Remove Dressings/Wound Care:: 48 hours Shower/Bathe:: 48 hours Diet:: As Tolerated Discharge Orders Discharge Orders: Discharge Order (Routine); Ordered 12/17/18 Ordered By: Ke Virk DS: Diagnosis Discharge Diagnosis (1) Trigger thumb of right hand: Status: Acute (2) Trigger thumb of left hand: Status: Chronic
--- NOTE | 2018-12-18 09:59 | ROE_ITS ---
DATE OF PROCEDURE: December 17, 2018 PREOPERATIVE DIAGNOSIS: Bilateral trigger thumbs. POSTOPERATIVE DIAGNOSIS: Same. PROCEDURE: 1. Tendon sheath incision for trigger thumb, right, 2. Tendon sheath incision for trigger thumb, left. SURGEON: Ke Virk M.D. ANESTHESIA: Local infiltration with 1% Xylocaine solution and 0.5% Marcaine with epinephrine solutio n. INDICATIONS: This is a 58-year-old white female with bilateral painful trigger thumbs. The left masha mb became symptomatic first and the right thumb soon followed. She has difficulty using her hands to lift anything because of the painful locking. This has been going on for many weeks and has had no relief from splinting or anti-inflammatory medications. Bilateral trigger thumb releases were recomm ended to alleviate her symptoms. The risks and complications of the procedure were explained to the patient in detail preoperatively. PROCEDURE DESCRIPTION: The patient was taken to the Operating Room on 12/17/18. She was placed supine on the operating table. The right hand and wrist were prepped and draped free in the usual sterile fashion. I infiltrated over the proximal flexion crease of the thumb with 1% Xylocaine solution. On ce good anesthesia was obtained, I prepped and draped the right hand in the usual sterile fashion. I made an incision in line with the proximal flexion crease of the thumb about 3 cm in length. The in cision was carried down to the subcu. Blunt-tipped Littler scissors were then used to mobilize the s oft tissue, including the digital nerves away from the flexor sheath of the thumb. The flexor sheath was clearly visualized. I incised the proximal remy of the flexor sheath under direct vision. On ce I felt I had released the entire proximal remy, the patient was asked to actively flex and exten d her right thumb. She was now able to flex and extend her right thumb fully with no locking or catc luci. The wound margins were infiltrated with 0.5% Marcaine with an epinephrine solution and the ski n edges were approximated with three interrupted #4-0 Nylon sutures. The wound was dressed with Xero form gauze, sterile gauze 4x4's, and wrapped with a 2-inch Cling bandage. The patient had the operating table turned, and the same procedure was repeated on the left side. Th e same dressings were applied to the left side. The patient was able to flex and extend her left masha mb fully actively following release of the proximal remy of the left thumb. The patient was disch arged to the Day Surgery Unit in good condition. The patient was discharged home from the Day Surgery Unit with instructions to keep her dressings dry and in place for 48 hours. After 48 hours she may remove her dressings, shower and get her incision s wet. She is encouraged to bend and straighten both thumbs ten times an hour while awake to prevent swelling and pain. After she removes the dressings in 48 hours, she can leave the dressings off whe n the wounds are dry and sealed. She can take Tylenol or ibuprofen for mild pain and for breakthroug h pain she has a prescription for Hydrocodone with APAP 5/325, one tablet every six hours, as needed. She may use her hands as much as discomfort allows. She will follow-up with me in 10 to 14 days.
== END 2018-12-17 16:26 | disposition home or self-care (01) ==
PROVIDERS: PCP Family Medicine; Visit Provider Orthopaedic Surgery
PROC: (CPT 26055; principal; 2018-12-17 12:30)
DX: M65.311 Trigger thumb, right thumb (principal); M65.312 Trigger thumb, left thumb
CPT/HCPCS: 26055

== ENCOUNTER 2018-12-19 10:41 | Outpatient (REF) | payer MEDICAID, SELFPAY ==
[2018-12-19 21:36] LABS: ESR 23 MM/HR (0-30)
== END 2018-12-19 11:01 ==
LOC: NCHCN 10:41
PROVIDERS: PCP Family Medicine; Visit Provider Family Medicine
DX: R51 Headache (principal)
CPT/HCPCS: 85652

== ENCOUNTER 2019-01-25 12:51 | Outpatient (REF) | payer MEDICAID, SELFPAY ==
[2019-01-25 20:08] LABS: ALT 199 U/L (12-78); AST 134 U/L (15-37); Albumin 3.7 g/dL (3.4-5.0); Alkaline Phosphatase 233 U/L (46-116); Anion Gap 10.1 mmol/L (3-11); BUN 14 mg/dL (7-18); Bilirubin, Total 0.4 mg/dL (0.2-1.0); CO2 28.9 mmol/L (21.0-32.0); CREATININE 0.76 mg/dL (0.55-1.02); Chloride 102 mmol/L (98-107); Glucose 95 mg/dL (70-100); Potassium 3.7 mmol/L (3.5-5.1); Sodium 141 mmol/L (136-145); TSH (W/Ref FT4) 1.57 uIU/mL (0.358-3.74); Total Protein 6.6 g/dL (6.4-8.2)
[2019-01-28 07:54] LABS: Vitamin D 25 Total 23.7 ng/ml (30-100)
[2019-01-28 10:36] LABS: Hepatitis B Surface Ag Negative (NEGAT)
== END 2019-01-25 13:11 ==
LOC: NCHCN 12:51
PROVIDERS: PCP Family Medicine; Visit Provider Family Medicine
DX: E87.6 Hypokalemia (principal); R74.0 Nonspecific elevation of levels of transaminase and lactic acid dehydrogenase [LDH]; E89.0 Postprocedural hypothyroidism; E83.51 Hypocalcemia
CPT/HCPCS: 80053; 82306; 87340; 83735; 84443

== ENCOUNTER 2019-05-15 12:46 | Outpatient (REF) | payer MEDICAID, SELFPAY ==
[2019-05-15 13:25] LABS: ALT 29 U/L (14-59); AST 25 U/L (15-37); Albumin 3.6 g/dL (3.4-5.0); Alkaline Phosphatase 104 U/L (46-116); Anion Gap 8.4 mmol/L (3-11); BUN 14 mg/dL (7-18); Bilirubin, Total 0.5 mg/dL (0.2-1.0); CO2 29.6 mmol/L (21.0-32.0); CREATININE 0.77 mg/dL (0.55-1.02); Calcium 7.7 mg/dL (8.5-10.1); Chloride 103 mmol/L (98-107); Glucose 91 mg/dL (70-100); Potassium 3.9 mmol/L (3.5-5.1); Sodium 141 mmol/L (136-145); Total Protein 6.3 g/dL (6.4-8.2)
[2019-05-15 13:29] LABS: HCT 40.8 % (36.0-46.0); HGB 13.9 g/dL (12.0-15.5); Mean Corp. HGB Concentration 34.1 g/dL (32.0-36.0); Mean Corpuscular Hemoglobin 28.3 pg (27.0-33.0); Mean Corpuscular Volume 83.1 fL (80-95); Platelet Count 261 x1000/uL (130-400); RBC 4.91 m/cumm (4.00-5.20); RBC Distribution Width 13.4 % (11.7-14.6)
== END 2019-05-15 13:06 ==
LOC: NCHCN 12:46
PROVIDERS: PCP Family Medicine; Visit Provider Family Medicine
DX: R74.0 Nonspecific elevation of levels of transaminase and lactic acid dehydrogenase [LDH] (principal); E87.6 Hypokalemia; E83.51 Hypocalcemia
CPT/HCPCS: 80053; 85027

== ENCOUNTER 2019-05-22 11:10 | Outpatient (CLI) | payer MEDICAID, SELFPAY ==
[2019-05-22 11:50] LABS: HCT 40.7 % (36.0-46.0); Mean Corp. HGB Concentration 34.4 g/dL (32.0-36.0); Mean Corpuscular Hemoglobin 28.3 pg (27.0-33.0); Mean Corpuscular Volume 82.4 fL (80-95); Mean Platelet Volume 9.1 fL (8.0-11.0); Platelet Count 277 x1000/uL (130-400); RBC 4.94 m/cumm (4.00-5.20); RBC Distribution Width 13.3 % (11.7-14.6); White Blood Cell Count 6.75 k/cumm (4.4-10.8)
[2019-05-22 12:25] LABS: ALT 26 U/L (14-59); AST 22 U/L (15-37); Albumin 3.6 g/dL (3.4-5.0); Alkaline Phosphatase 108 U/L (46-116); Anion Gap 9.2 mmol/L (3-11); BUN 12 mg/dL (7-18); Bilirubin, Total 0.4 mg/dL (0.2-1.0); CO2 29.8 mmol/L (21.0-32.0); CREATININE 0.76 mg/dL (0.55-1.02); Calcium 7.7 mg/dL (8.5-10.1); Chloride 104 mmol/L (98-107); Glucose 99 mg/dL (70-100); Potassium 3.3 mmol/L (3.5-5.1); Sodium 143 mmol/L (136-145); Total Protein 6.3 g/dL (6.4-8.2)
[2019-05-22 22:18] LABS: Ionized Calcium 0.95 mmol/L (1.12-1.32)
[2019-05-23 07:23] LABS: Vitamin D 25 Total 22.2 ng/ml (30-100)
[2019-05-23 11:15] LABS: Parathyroid Hormone,Intact 28 pg/ml (19-88)
== END 2019-05-22 11:30 ==
PROVIDERS: PCP Family Medicine; Visit Provider Family Medicine
DX: R74.0 Nonspecific elevation of levels of transaminase and lactic acid dehydrogenase [LDH] (principal); E87.6 Hypokalemia; E83.51 Hypocalcemia; E55.9 Vitamin D deficiency, unspecified
CPT/HCPCS: 36415; 80053; 82306; 85027; 82330; 83970

== ENCOUNTER 2019-07-01 11:26 | Outpatient (REF) | payer MEDICAID, SELFPAY ==
[2019-07-01 18:56] LABS: Albumin 3.8 g/dL (3.4-5.0); Anion Gap 7.2 mmol/L (3-11); BUN 11 mg/dL (7-18); CO2 30.8 mmol/L (21.0-32.0); CREATININE 0.84 mg/dL (0.55-1.02); Calcium 8.1 mg/dL (8.5-10.1); Chloride 103 mmol/L (98-107); Glucose 92 mg/dL (70-100); Magnesium 2.1 mg/dL (1.8-2.4); PHOSPHORUS 4.8 mg/dL (2.6-4.7); Potassium 3.8 mmol/L (3.5-5.1); Sodium 141 mmol/L (136-145)
== END 2019-07-01 11:46 ==
LOC: NCHCN 11:26
PROVIDERS: PCP Family Medicine; Visit Provider Family Medicine
DX: E83.51 Hypocalcemia (principal); E87.6 Hypokalemia
CPT/HCPCS: 80048; 82040; 83735; 84100

== ENCOUNTER 2019-07-03 09:36 | Outpatient (CLI) | payer MEDICAID, SELFPAY ==
--- NOTE | 2019-07-03 13:39 | DI.US_ITS ---
APPROVED REPORT EXAM: Comprehensive 2D, Doppler, and color-flow Echocardiogram Patient Location: Out-Patient Sap Functional Analyst: Evita Ward [facility] ([facility]) Rhythm: Bradycardia Indications: hypertension Conclusion Left Ventricle : The left ventricle is normal size. The left ventricular systolic function is normal . The posterior wall thickness is mildly increased. The septal thickness is increased. There is norm al LV segmental wall motion. LVEF is 65-70%. Left ventricular filling pattern is normal for age. Right Ventricle : Right ventricle is top normal to mildly dilated. The right ventricular systolic fun ction is normal. Atria : The left atrium size is normal. The right atrium size is normal. Aortic Valve : The Aortic valve is sclerotic. Aortic valve is trileaflet. No hemodynamically signific ant aortic stenosis. Mild aortic regurgitation. Mitral Valve : The mitral valve is normal in structure. Trace mitral regurgitation. No evidence of mi tral valve stenosis. Tricuspid Valve : The tricuspid valve is normal in structure. Mild tricuspid regurgitation. Great Vessels : The IVC is normal in size and collapses >50% with inspiration. Estimated RVSP is 22- 26 mmHg. Compared to prior echocardiogram dated 12/05/2016, there is no significant change. Wall motion Left Ventricle The left ventricle is normal size. The left ventricular systolic function is normal. The posterior wa ll thickness is mildly increased. The septal thickness is increased. There is normal LV segmental wal l motion. Left ventricular filling pattern is normal for age. LVEF is 65-70%. Right Ventricle Right ventricle is top normal to mildly dilated. The right ventricular systolic function is normal. Atria The left atrium size is normal. The right atrium size is normal. Aortic Valve The Aortic valve is sclerotic. Aortic valve is trileaflet. No hemodynamically significant aortic sten osis. Mild aortic regurgitation. Mitral Valve The mitral valve is normal in structure. No evidence of mitral valve stenosis. Trace mitral regurgita tion. Tricuspid Valve The tricuspid valve is normal in structure. Mild tricuspid regurgitation. Pulmonic Valve Pulmonic valve is not well visualized. Trivial to mild pulmonic regurgitation. Great Vessels The aortic root is normal in size. The ascending aorta is mildly dilated at 3.7 cm. The IVC is normal in size and collapses >50% with inspiration. Estimated RVSP is 22-26 mmHg. Pericardium There is no pericardial effusion. 2D Dimensions IVSd 1.25 cm F: 0.6-1.0 LV EDV A2C 87.50 mL PWd 1.00 cm F: 0.6 - 1.0 LV EDV A4C 73.80 mL LVDd 4.50 cm F: 3.8 - 5.2 LA Volume Index A2C 21.16 mL/m2 LVDs 2.60 cm F: 2.2 - 3.5 LA Volume Index A4C 27.74 mL/m2 Aortic Root 3.25 cm F: 2.7 - 3.3 LA Volume Index Biplane 26.17 mL/m2 RA Area A4C 16.84 cm2 LA Area A4C 17.55 cm2 LVOT 1.95 cm (M/F) 1.5-2.5 LA Area A2C 14.19 cm2 Ascending Aorta 3.70 cm F: 2.3 - 3.1 EF AP4 60.57 % LVEF (Teich) 73.30 % EF AP2 71.66 % LVEF (Fisher's) 64.72 % F: 54 - 74 EF BP 64.72 % LV Volume 60.18 mL F: 46 - 106 LV Volume Index 30.70 mL/m2 F: 29 - 61 FS 42.15 % LV Diastology E/A Ratio 1.0 MED E' 0.09 (>0.07 m/s) LV E/e MED 7.85 (<14) LAT E' 0.10 (>0.1 m/s) LV E/e LAT 6.80 (<14) Pulm Vein s 0.57 m/s PV S/D Ratio 1.35 Pulm Vein d 0.42 m/s Aortic Valve LVOT Area 3.11 cm2 LVOT Peak Felix. 1.05 m/s LVOT Mean Felix. 0.63 m/s LVOT Peak Gr. 4.50 mmHg ASHLEY Vmax Index 0.75 cm2/m2 LVOT Mean Gr. 1.90 mmHg LVOT VTI 0.20 m ASHLEY Mean Felix. Index 0.68 cm2/m2 AoV Peak Felix. 2.25 (0.5-1.3 m/s) AoV Mean Felix. 1.48 m/s AO Peak GR. 20.23 mmHg AO Mean GR. 9.69 (<5 mmHg) VTI Ratio 0.50 ASHLEY (VTI) 1.57 (2.5-4.5 cm2) ASHLEY (VTI) Index 0.80 cm/m2 Mitral Valve MV E Max Felix. 0.68 (0.4-1.3 m/s) MV A Velocity 0.65 (0.4-1.3 m/s) E/A Ratio 1.05 MV Decel. Time 217.00 (160-240 msec) MV PHT 62.94 msec MVA PHT 3.45 cm2 Tricuspid Valve TR P. Velocity 2.36 m/s TV Regurg Vmax 2.36 m/s TR P. Gradient 22.30 mmHg
== END 2019-07-03 09:56 ==
PROVIDERS: PCP Family Medicine; Visit Provider Family Medicine
DX: R01.1 Cardiac murmur, unspecified (principal); I10 Essential (primary) hypertension; I51.7 Cardiomegaly; I35.8 Other nonrheumatic aortic valve disorders
CPT/HCPCS: 93306

== ENCOUNTER 2019-07-05 08:51 | Outpatient (CLI) | payer MEDICAID, SELFPAY ==
[2019-07-05 10:45] LABS: HCT 41.2 % (36.0-46.0); HGB 14.1 g/dL (12.0-15.5); Mean Corp. HGB Concentration 34.2 g/dL (32.0-36.0); Mean Corpuscular Hemoglobin 28.4 pg (27.0-33.0); Mean Corpuscular Volume 83.1 fL (80-95); Mean Platelet Volume 9.1 fL (8.0-11.0); Platelet Count 263 x1000/uL (130-400); RBC 4.96 m/cumm (4.00-5.20); RBC Distribution Width 13.6 % (11.7-14.6); White Blood Cell Count 6.11 k/cumm (4.4-10.8)
== END 2019-07-05 09:11 ==
PROVIDERS: PCP Family Medicine; Visit Provider Student in an Organized Health Care Education/Training Program
DX: M25.561 Pain in right knee (principal); M17.11 Unilateral primary osteoarthritis, right knee; K21.9 Gastro-esophageal reflux disease without esophagitis; R01.1 Cardiac murmur, unspecified; I10 Essential (primary) hypertension; Z01.812 Encounter for preprocedural laboratory examination; Z01.818 Encounter for other preprocedural examination
CPT/HCPCS: 36415; 85027; 93005; 93010

== ENCOUNTER 2019-07-16 09:47 | Inpatient (IN) | payer MEDICAID, SELFPAY ==
[2019-07-16] VITALS (18 sets, daily range): BP systolic 80–146; BP diastolic 50–79; PULSE 43–69; RESP 14–21; TEMP 35.9–36.8; O2SAT 96–100
--- NOTE | 2019-07-16 10:10 | W.PREOPHP ---
Assessment and Plan Assessment and plan (1) Osteoarthritis of right knee: Status: Chronic Qualifiers: Osteoarthritis type: primary Qualified Code(s): M17.11 - Unilateral primary osteoarthritis, right knee (2) Valgus deformity, not elsewhere classified, right knee: Status: Chronic Assessment and plan: Plan: Educated patient on surgery covering surgical technique, recovery process, benefits and risks including but not limited to risk of infection, blood clot, damage to soft tissue/blood vessels/nerves in detail. After discussion patient gives verbal understanding of risks and elects to proceed with scheduling surgery. Patient had opportunity to have questions answered to their satisfaction. They will contact office if issues arise. Patient will continue to be scheduled for right total knee replacement with Dr. Arthur. History of Present Illness Narrative: Ms. Yusuf is a 59-year-old female who presents for scheduled right TKA with Dr. Arthur. Patient has been seen in orthopedic clinic in May 2019 at which time x-rays revealed severe arthritis as well as significant valgus deformity. Patient has tried to manage discomfort with NSAIDs but was unable to take medication class currently due to gastritis, she has also received injections without significant pain relief. Due to her continued pain she was offered surgical intervention and elected to proceed. Please review Dr. Hinkle's History and Physical on 07/01/19. Following that patient did undergo a Echo. Patient denies any additional symptoms or medical history changes since her H&P with her PCP. Pertinent Surgical Information Recent Echo from 07/03/[address] Snyder states the following conclusions: Left Ventricle : The left ventricle is normal size. The left ventricular systolic function is normal. The posterior wall thickness is mildly increased. The septal thickness is increased. There is normal LV segmental wall motion. LVEF is 65-70%. Left ventricular filling pattern is normal for age. Right Ventricle : Right ventricle is top normal to mildly dilated. The right ventricular systolic function is normal. Atria : The left atrium size is normal. The right atrium size is normal. Aortic Valve : The Aortic valve is sclerotic. Aortic valve is trileaflet. No hemodynamically significant aortic stenosis. Mild aortic regurgitation. Mitral Valve : The mitral valve is normal in structure. Trace mitral regurgitation. No evidence of mitral valve stenosis. Tricuspid Valve : The tricuspid valve is normal in structure. Mild tricuspid regurgitation. Great Vessels : The IVC is normal in size and collapses >50% with inspiration. Estimated RVSP is 22-26 mmHg. Compared to prior echocardiogram dated 12/05/2016, there is no significant change. Review of Systems Cardiovascular Cardiovascular: Reports chest pain, Denies diaphoresis, Denies rapid heart rate, Denies irregular heart rhythm, Reports palpitations, Denies dyspnea, Reports dyspnea on exertion (reports NOBLE if going up and downstairs several times quickly), Denies orthopnea, Denies paroxysmal nocturnal dyspnea and Denies slow heart rate Comments: Reports intermittent history of left sided chest discomfort that has been ongoing for the past two months. States it happens at any time not dependent on time of day or activity. Reports that is part of the reason the Echo was ordered. Takes Tylenol or Advil which helps some. Denies any additional symptoms with this reported discomfort. Respiratory Respiratory: Denies cough, Denies dyspnea, Reports dyspnea on exertion (reports NOBLE if going up and downstairs several times quickly) and Denies wheezing Endocrine Endocrine: Reports palpitations Allergic/Immunologic Allergic/Immunologic: Denies wheezing [facility] Social History Smoking/Tobacco Use Status: Former Tobacco Use Quit Date: 08/14/99 Alcohol Intake: current Alcohol Intake frequency: a few times a week Alcohol type: beer and wine Drug use: Never Substance use type: does not use Details: alcohol: t-7 Current gender identity: female Do you feel safe at home: Yes Do you feel safe in your relationship?: Yes Meds Home Medications and Allergies Home Medications Medication Instructions Recorded Confirmed Type simvastatin 20 mg PO DAILY 11/15/12 07/16/19 History aspirin [Aspir-81] 81 mg PO DAILY 06/07/15 07/16/19 History hydroxychloroquine 200 mg PO DAILY #30 tab-cap 11/16/16 07/16/19 History levothyroxine 125 mcg PO HS tab-cap 05/25/17 07/16/19 History albuterol sulfate 90 mcg/actuation 2 puff INHALATION Q6H PRN inh 10/04/18 07/05/19 History aerosol inhaler loratadine 10 mg PO DAILY 10/28/18 07/16/19 History acetaminophen [Tylenol Extra 1,000 mg PO DAILY PRN 12/10/18 07/16/19 History Strength] calcium carbonate [Oyster Shell 500 mg PO DAILY 07/05/19 07/16/19 History Calcium] fluticasone propionate [Flovent 2 puff INHALATION BID 07/05/19 07/16/19 History HFA] losartan-hydrochlorothiazide 1 tab PO DAILY 07/05/19 07/16/19 History potassium chloride 10 meq PO DAILY 07/05/19 07/16/19 History pramipexole 0.25 mg PO QHS 07/05/19 07/16/19 History Allergies Allergy/AdvReac Type Severity Reaction Status Date / Time oxycodone [From Percocet] AdvReac Intermediate Nausea Verified 07/16/19 10:08 Exam Const General: cooperative, healthy appearing and no acute distress Resp Effort & Inspection: normal respiratory effort and able to speak in complete sentences Auscultation: clear to auscultation bilaterally, no crackles, no rales and no rhonchi Cardio Heart Sounds: S1 normal and S2 normal
[2019-07-16] MEDS: Acetaminophen 500 MG TAB 1000 MG PO ×2 (10:39→20:22)
[2019-07-16] MEDS: Gabapentin 300 MG CAP PO (10:40)
[2019-07-16] MEDS: Lactated Ringers 1,000 ML 80 ML IV ×3 (10:41→15:17)
[2019-07-16] MEDS: Celecoxib 200 MG CAP 400 MG PO (10:41)
[2019-07-16] MEDS: Bupivacaine 0.25% Pres-Free 30 ML VIAL ×2 (11:30→13:12)
[2019-07-16] MEDS: ceFAZolin 2 GM/50 ML BAG IVPB (12:01)
[2019-07-16] MEDS: Normal Saline 20 ML VIAL (13:12)
[2019-07-16] MEDS: Ketorolac 30 MG/ML VIAL (13:12)
[2019-07-16] MEDS: Normal Saline Flush 10 ML SYR IV (14:53)
[2019-07-16] MEDS: Ondansetron 4 MG/2 ML VIAL IVP (14:54)
--- NOTE | 2019-07-16 16:29 | PT.INNT ---
Date of service: 07/16/19 Time of Service: 16:29 PT Notes Patient will be seen for evaluation tomorrow morning.
--- NOTE | 2019-07-16 16:53 | W.PM.OP ---
Date of service: 07/16/19 Time of Service: 13:53 Operative Note Operative Note DATE OF PROCEDURE: 07/16/19 PRE-OP DIAGNOSIS: Right knee osteoarthritis with valgus deformity POST-OP DIAGNOSIS: same PROCEDURE: Right Total Knee Arthroplasty with Intraoperative Navigation SURGEON: Jose Arthur SONAR [employer] EQUIPMENT OPERATOR: Natalya Nielsen ANESTHESIA: regional and spinal ESTIMATED BLOOD LOSS: 400 PATHOLOGY: none sent TOURNIQUET TIME: 28 COMPLICATIONS: None Patient was transported to: PACU Patient's condition: stable Implants: 1. Depuy Attune Posterior Stabilized Femoral Component, Size 6 narrow 2. Depuy Attune Fixed Platform Tibial Component, Size 5 3. Depuy Attune 6 x 8 mm fixed, Stabilized Poly 4. Depuy Attune Patellar Component, Size 35 mm Indications: I have seen Shaka in clinic for symptoms of knee arthritis, confirmed with radiographic findings. She has exhausted nonoperative methods and was having significant limitations in daily function and desired better function and less pain. I discussed the technical details of a knee replacement. I explained the risks of the procedure to include, but not limited to, bleeding, infection, pain, stiffness, fracture, damage to nerves and vessels, damage to muscles and tendons, loosening, need for repeat procedure, blood clot and cardiopulmonary demise. Despite these risks, she elected to proceed. Findings: There was significant signs of arthritis throughout the knee involving all 3 compartments, worse over the lateral tibia and lateral femur. Procedure Description: Shaka was greeted in the preoperative holding area where the correct side was identified and marked. The consent was reviewed with the patient and signed. The history and physical was updated. All questions were answered. Preoperative mediacations were administered: Acetaminophen 1000mg, Celebrex 400mg, and gabapentin 300mg. An adductor canal block was then administered by the anesthesia team in the PACU. Shaka was taken back to the operating room. A spinal anesthestic was then administered. The patient was placed into the supine position on the operating room table. A nonsterile tourniquet was placed high onto the leg but only used for cementing. Posts were placed for positioning during the procedure. All bony prominences were well padded. Prophylactic antibiotics in the form of cefazolin were administered. 1g of Tranxemic Acid was given intravenously within 30 minutes of incision. The right leg was then prepped with Chloraprep and draped in a standard fashion with impervious stockinette and extremity drape. A second ChloraPrep prep was performed prior to final draping with Iodine impregnated skin protection. A timeout to confirm correct identity, side and site, procedure, allergies, anesthesia, and medical concerns was performed. With the knee in some flexion, a midline incision was made overlying the knee. Full thickness skin flaps were raised once the extensor mechanism was encountered. These were raised medially and laterally. Any bleeding was controlled with electrocautery. Once the extensor mechanism was fully exposed, a medial parapatellar arthrotomy was performed in a flexed position. All bleeding from the arthrotomy and the geniculate arteries was coagulated. A medial subperiosteal peel was performed with electrocautery to the midcoronal plane. The fat pad was removed while keeping the patellar tendon protected. The anterior distal femur synovium was removed for later visualization. The ACL and PCL were resected and the anterior horn of the lateral meniscus was transected. The knee was then flexed with the patella everted. Large osteophytes from the tibia were removed. Large osteophytes from the femur were removed. There was some hypoplasia of the lateral femoral condyle and any remnant cartilage of the medial femoral condyle was removed for appropriate thickness. A single starting pin was then placed 1cm anterior to the PCL insertion and the notch in the direction of the femoral head. The OrthoAlign device was applied over the pin. It was oriented to be in line with the epicondylar axis and the trochlear groove. It was then pinned into place. The navigation computer was then turned on and calibrated. The distal femur cut was set at 0 degrees varus/valgus and 2.5 degrees flexion. The distal femur cutting guide then was positioned for a 9mm cut. The distal femur was cut with an oscillating saw while protecting the soft tissues. The tibia was then addressed. The OrthoAlign device was placed over the tibial tubercle and medial tibia and secured into position. Once again, OrthoAlign was calibrated and then set for a 0 degree varus/valgus cut and 3 degrees of posterior slope. With this locked into position, the cut thickness stylus was used to assess cut thickness. The medial side, less involved side, was set for a 7 mm cut. This was then held in position and pinned into place with 2 additional pins and a cross pin for stability. The medial and lateral collateral ligaments were protected and the cut was performed. With this completed, it was assessed and noted to be of appropriate dimensions. The guide and OrthoAlign was removed. A spacer block was inserted and the knee was brought into extension. The 7 mm spacer block provided full extension, without hyperextension and with stability of both the medial and lateral collateral ligaments was assessed. The pins from the femur and the tibia were then removed. The distal femur was then sized. The anterior stylus was placed onto the lateral ridge of the anterior femur. This indicated a size 6 femur. The external rotation of the guide was adjusted to 5 degrees to match the epicondylar axis, perpendicular to [place]?s line. The 4-in-1 cutting guide was the placed. The posterior medial femur cut was evaluated and appeared of good thickness. The spacer block was inserted underneath the cutting guide. There is seem to be some laxity in flexion both medially and laterally. Therefore I translated the femoral component posteriorly 1.5 mm. This was once again tested and stability was confirmed in 90 degrees of flexion. An bree wing was used to confirm appropriate position of the anterior cut with minimal notching. This cutting guide was ensured to be flush on the cut surface and then pinned into place with headed pins. While protecting the soft tissues, quad tendon, and collateral ligaments, the anterior and posterior cuts were performed with a saw. There is a very small notch of the anterior femur, approximately 1 mm. The central two pins were removed and the posterior and anterior chamfers were cut next. The notch-cutting guide was placed. This was pinned to lateralize the femoral component as much as possible while keeping it flush on the cut surface. This was then pinned into position. A reciprocating saw was used to make the notch cut. A rasp smoothed the cut surfaces. A trial posterior stabilized femoral component was then inserted, impacted down to the cut surfaces, and the lug holes were drilled. A provisional trial tibial component was placed and the knee was brought through range of motion. The polyethylene was trialed until there was good flexion and extension with excellent stability to the medial and lateral collaterals. The patella was tracking without thumbs. The tibial cut surface was fully exposed. The medial and lateral menisci were removed. The tibia was then sized as a 5. The tibia had been previously marked during trialing to correspond to the center of the tibial component to help with rotation. The trial was aligned to this kong, approximately rotated to the medial 1/3rd of the tibial tubercle. The trial was pinned into place. The tibia was prepared with a reamer and a keel punch. The knee was then brought into extension and the patella was measured as 26 mm. Using the patellar clamp and cut guide, this was resected to a flat surface with at least 13mm of thickness remaining. The size 35 mm patella fit the best. This was oriented and then clamped into position. The lugs were drilled. The trial components were removed. The final components, except for the polyethylene were opened on the back table. The periosteal and capsular tissues, especially posteriorly, around the knee were then systematically injected with a periarticular cocktail consisting of 50cc 0.25% Marcaine, 30mg Ketorolac, 20cc of Exparal and 50cc of injectable saline. The tourniquet was then inflated to 275mmHg. The knee was thoroughly irrigated with a pulse lavage and dried. On the back table, with the implants opened, the cement was mixed. 2 batches of antibiotic laden cement were prepared with vacuum assistance. After the cement was ready a small amount was placed on to the back side of the tibial component at the keel. A small amount was placed onto the posterior flange of the femur. Cement was manual pressurized and impregnated into the cut surface of the tibia. The tibial component was then inserted into the cut surface and impacted into position. Excess cement was removed and the component was reimpacted. Again, excess cement was removed and our attention was then turned to the femur. The femoral cut surface was once again dried and cement was manually impacted into the cut surface. The femoral component was lined with the lug holes and impacted. Excess cement was removed. It was ensured to be down against the cut surface. The trial polyethylene was then inserted and the leg was brought out into full extension for the duration of the cement curing process, approximately 15min. Cement was lastly manually impacted into the cut surface of the patella and the patellar button was clamped into position and held. During this process attention was turned to the gutters of the knee and for all interfaces for any excess cement. The knee was irrigated with Irrisept chlorhexidine solution. I allowed the solution to sit within the knee for a minimum of 3 minutes. After the cement had finally cured, approximately 15min, the clamp was removed from the patella and the knee was taken through range of motion. A size 8 mm polyethylene component provided the best range of motion and stability with less than 2mm gapping with medial and lateral stress and full extension without significant hyperextension. The patella was tracking with a no-thumbs technique. The trial poly was removed and once again the knee was checked for any loose, excess, or errant cement. The poly component was then inserted and impacted into position after cleaning and drying the tibial tray. The capsule was then reapproximated with a No. 1 Vicryl at multiple locations. The capsule was finally closed with a No. 2 Stratafix, barbed suture. The tourniquet was then released and the arthrotomy appeared watertight without significant bleeding. The second dosing of 1g TXA was started. Deep tissues were then reapproximated with 0 Vicryl and 2-0 Vicryl. The skin was closed with a running 3-0 Monocryl in a subcuticular fashion. This was reinforced with skin glue. A Mepilex silver dressing was applied along with a [id number] TRUPTI wrap. A CryoCuff was applied. Shaka was transferred to the hospital bed without difficulty an suffering no apparent complication. Shaka has a good prognosis. Physical therapy will start today and without restrictions, weight-bearing as tolerated. Rivaroxaban 10 mg daily will be used for DVT prophylaxis given history of antiphospholipid syndrome..
[2019-07-16] MEDS: ceFAZolin 1 GM/50 ML BAG IVPB (18:28)
[2019-07-16] MEDS: Mometasone 220 MCG 14 DOSE INHALER 2 PUFF IH (20:22)
[2019-07-16] MEDS: Celecoxib 100 MG CAP PO (20:22)
[2019-07-16] MEDS: Rivaroxaban 10 MG TABLET PO (21:27)
[2019-07-16] MEDS: Pramipexole 0.25 MG TAB PO (21:28)
[2019-07-17 00:15] VITALS: BP 120/70; PULSE 74; RESP 16; TEMP 36.7; O2SAT 97
[2019-07-17] MEDS: Levothyroxine 125 MCG TAB PO ×2 (00:20→23:38)
[2019-07-17] MEDS: ceFAZolin 1 GM/50 ML BAG IVPB ×2 (01:58→11:11)
[2019-07-17] MEDS: Lactated Ringers 1,000 ML 80 ML IV (03:28)
[2019-07-17] MEDS: HYDROmorphone 2 MG TAB PO ×5 (04:18→23:43)
[2019-07-17 04:20] VITALS: BP 115/64; PULSE 64; RESP 20; TEMP 36.7; O2SAT 98
[2019-07-17] MEDS: Hydroxychloroquine 200 MG TAB PO (05:53)
--- NOTE | 2019-07-17 07:23 | DSE_ITS ---
Date of service: 07/18/19 Time of Service: 07:23 DS: Diagnosis Discharge Diagnosis (1) Osteoarthritis of right knee: Status: Chronic (2) Valgus deformity, not elsewhere classified, right knee: Status: Chronic Discharge Plan Disposition Patient Disposition: HOME Condition: Good Discharge Details Reason For Visit: Right Knee DJD Admit Date/Time: 07/16/19 09:47 Admit Provider: Jose Arthur Attending Provider: Jose Arthur Primary Care Provider: Daniel Hinkle [facility] Hospital Course: Patient was admitted to the medical/surgical floor following the procedure. It was tolerated well without any notable medical, surgical, or anesthetic complications. Mobilization began postoperatively. The amado catheter was removed and voiding spontaneously. Vitals were stable. Physical therapy worked with the patient and was cleared for discharge home. No acute medical issues. Home Meds and New Rx's Prescriptions: New acetaminophen 500 mg tablet 1,000 mg PO Q8H PRN (Reason: pain) Qty: 90 RF: 3 hydromorphone 2 mg tablet 2 mg PO Q4H PRN (Reason: pain) Qty: 18 RF: 0 pantoprazole 40 mg tablet,delayed release (DR/EC) 40 mg PO DAILY Qty: 30 RF: 0 gabapentin 300 mg capsule 300 mg PO QHS Qty: 7 RF: 0 rivaroxaban 10 mg tablet 10 mg PO DAILY Qty: 12 RF: 0 ibuprofen 600 mg tablet 600 mg PO Q8H PRN (Reason: pain) Qty: 60 RF: 3 Continued albuterol sulfate [ProAir HFA] 90 mcg/actuation HFA aerosol inhaler 2 puff Inhalation Q6H PRN (Reason: shortness of breath) RF: 0 hydroxychloroquine 200 MG tablet 200 mg PO DAILY Qty: 30 RF: 11 levothyroxine 125 MCG tablet 125 mcg PO HS RF: 0 simvastatin 20 MG tablet 20 mg PO DAILY RF: 0 loratadine 10 mg Capsule 10 mg PO DAILY RF: 0 calcium carbonate [Oyster Shell Calcium] 500 mg calcium (1,250 mg) Tablet 500 mg PO DAILY RF: 0 potassium chloride 10 mEq Capsule, Extended Release 10 meq PO DAILY RF: 0 losartan-hydrochlorothiazide 100-12.5 mg Tablet 1 tab PO DAILY RF: 0 pramipexole 0.25 mg Tablet 0.25 mg PO QHS RF: 0 Flovent HFA 110 mcg/actuation Hfa Aerosol Inhaler 2 puff INHALATION BID RF: 0 Discontinued aspirin [Aspir-81] 81 MG tablet,delayed release (DR/EC) 81 mg PO DAILY RF: 0 acetaminophen [Tylenol Extra Strength] 500 mg Tablet 1,000 mg PO DAILY PRNRF: 0 Discharge Instructions Additional Instructions: Dr. Arthur?s Total Knee Discharge Instructions Activity: The most important activity is to walk. You should try to take short walks a few times a day. It is important that when resting you work on keeping the knee straight. Avoid putting a pillow behind the knee as this will encourage flexion. Work on range of motion exercises as provided by Physical Therapy. - Start outpatient physical therapy within 2 weeks. - You should wear the RACHEL hose on both legs for 2 weeks. Dressing: Keep the surgical dressing in place for at least one week. After the first week it may be removed and replace with light gauze and tape or nothing. It may get wet after 3 days but avoid soaking the dressing. If it gets wet, just lightly pat dry. Medications: - You should take Tylenol and anti-inflammatory Celebrex as your primary pain control medications - You have been prescribed a stronger pain medication Hydromorphone for breakthrough pain, take as needed as prescribed. - You have also been prescribed a stomach acid reduction agent Pantoprozole to help reduce stomach acid and reflux. - You will be taking Rivaroxaban 10mg daily for DVT prevention for two weeks unless instructed otherwise. After this you will return to taking Aspirin - If you have constipation you should take Colace or Miralax (both over -the-counter). It takes most people 3-4 days to have a bowel movement. Follow-up: 2 weeks 1. Encounter Date and Reason I certify that DHEERAJ MCMAHON was seen by Jose Arthur MD on 07/18/19 and that I had a [id number] encounter with this patient that meets the physician face to face encounter requirements. 2. Clinical Findings Supporting Skilled Need and Homebound Status I certify that home health services are medically necessary, include either intermittent snf and/or physical/speech therapy, and that this patient is homebound in that absences from the home require considerable and taxing effort and are infrequent or of short duration, or are attributable to the need to receive medical care. [X] (a) Attached documentation from encounter provides clinical findings supporting skilled need and homebound status (including what assistance patient requires to leave the home). The encounter with the patient was in whole, or in part, for the following medical condition, which is the primary reason for home health care: Right Knee DJD Senior [facility]: Physical Therapy: Dheeraj would benefit from physical therapy for right knee replacement with notable weakness, stiffness, and gait abnormalities. Focus should be on restoring range of motion and ambulatory capacity. Speech Therapy: Homebound: Dheeraj is homebound due to weakness and ambulatory restrictions. She is unable to leave her home unassisted. 3. Certification and Authentication I certify that I composed the above information based on my clinical judgement relating to this patient's medical condition and, if applicable, clinical findings communicated to me by the NPP or inpatient physician who performed the Home Health Referral. All further orders will be obtained through Dr. Arthur Referrals: Jose Arthur MD [ [facility] STAFF PHYSICIAN] - Activity:: Activity as Tolerated Equipment/Supplies:: Walker Diet:: As Tolerated Discharge Orders Discharge Orders: Discharge Order (Routine); Ordered 07/18/19 Ordered By: Jose Arthur DS: Summary Status at Discharge Functional status at discharge: uses cane/walker Overall status at discharge: patient is progressing back to baseline Mental Status: mental status grossly normal Speech and Movement: speech and movement normal Mood: congruent mood Affect: normal affect Exam Psych Mental Status: mental status grossly normal Speech and Movement: speech and movement normal Mood: congruent mood Affect: normal affect DS: Data Vitals/I&O Vitals and I&O: Vital Signs Temperature 36.7 C 07/17/19 04:20 Temperature Source Tympanic 07/17/19 04:20 Pulse 64 07/17/19 04:20 Pulse Rhythm Regular 07/17/19 04:31 Respiratory Rate 20 07/17/19 04:20 Respiratory Effort Non-Labored 07/17/19 04:31 Respiratory Depth Normal 07/17/19 04:31 Respiratory Pattern Normal 07/17/19 04:31 Blood Pressure 115/64 07/17/19 04:20 Pulse Oximetry 98 07/17/19 04:20 Respiratory End-tidal CO2 28 07/16/19 15:48 Oxygen Delivery Method Room Air 07/17/19 04:20 Oxygen Flow Rate 0 07/17/19 04:20 Pain Level 2 07/17/19 05:18 Intake & Output 07/16/19 07/16/19 07/17/19 11:59 23:59 11:59 Intake Total 1956.000 / 1956.000 607.333 / 607.333 Output Total 1775 / 1775 650 / 650 Balance 181.000 / 181.000 -42.667 / -42.667 Weight 90.6 kg 90.6 kg Intake: IV 1306.000 / 1306.000 607.333 / 607.333 Oral 650 / 650 Output: Urine 1375 / 1375 650 / 650 Estimated Blood Loss 400 / 400 Other: Urine Color Yellow Yellow Straw Urine Appearance Clear Clear Clear Comment amado was emptied in the PACCU Stool Size Moderate Stool Characteristics Soft Liquid Brown Emesis Description None [facility] Medical History Abnormal mammogram of right breast (Chronic) Allergic rhinitis (Chronic) Amyloidosis (Chronic) Antiphospholipid syndrome (Chronic) Asthma (Chronic) Chest wall pain (Resolved) Constipation (Chronic) as above Degenerative joint disease (Chronic) Diverticulitis of sigmoid colon (Resolved) chronic vs abx assoc colitis Eczema (Chronic) GERD (gastroesophageal reflux disease) (Chronic) stable Herniated nucleus pulposus, lumbar (Chronic) HTN (hypertension) (Chronic) Hyperlipidemia (Chronic) Hypocalcemia (Resolved) Insomnia (Chronic) Lupus (Chronic) Normal colonoscopy (Resolved) [place] 11/13/[address] Natalya Styles at [facility], severe diverticular dz, repeat 10 years. mg Pericarditis (Resolved) Sciatica, left side (Resolved) Surgical History H/O: hysterectomy (Inactive) History of bone marrow biopsy (Acute) S/P thyroidectomy (Inactive) Tonsillectomy (Inactive) Social History Smoking/Tobacco Use Status: Former Tobacco Use Quit Date: 08/14/99 Alcohol Intake: current Alcohol Intake frequency: a few times a week Alcohol type: beer and wine Drug use: Never Substance use type: does not use Details: alcohol: t-7 Current gender identity: female Do you feel safe at home: Yes Do you feel safe in your relationship?: Yes
[2019-07-17] MEDS: Pantoprazole 40 MG TABCR PO (07:35)
[2019-07-17 07:52] VITALS: BP 123/66; PULSE 64; RESP 16; TEMP 36.2; O2SAT 100
[2019-07-17] MEDS: Mometasone 220 MCG 14 DOSE INHALER 2 PUFF IH ×2 (08:04→20:10)
[2019-07-17] MEDS: Simvastatin 20 MG TAB PO (08:42)
[2019-07-17] MEDS: Celecoxib 100 MG CAP PO ×2 (08:42→20:09)
[2019-07-17] MEDS: Losartan 50 MG TAB 100 MG PO (08:43)
[2019-07-17] MEDS: Potassium Chloride 10 MEQ CAPCR PO (08:43)
[2019-07-17] MEDS: Loratidine 10 MG TAB PO (08:44)
[2019-07-17] MEDS: Calcium Carbonate 1.25 GM TAB PO (08:44)
[2019-07-17] MEDS: Acetaminophen 500 MG TAB 1000 MG PO ×3 (08:44→20:09)
[2019-07-17] MEDS: hydroCHLOROthiazide 12.5 MG TAB PO (08:44)
--- NOTE | 2019-07-17 10:05 | IN_ITS ---
Date of service: 07/17/19 Time of Service: 08:41 PT Notes Visit Reasons: Right Knee DJD Physical Therapy Inpatient Initial Evaluation Date: 07/17/2019 Referring Doctor: Jose Arthur MD PT Orders: PT CONSULT: Status post Ortho surgery. Status post right TKA. Precautions: Fall. Standard. WBAT on right LE. Patient Profile/Admitting Diagnosis: Patient is a 59-year-old female status post right total knee arthroplasty due to primary unilateral osteoarthritis of right knee on POD 1. PMHX: Amyloidosis Herniated nucleus pulposus Antiphospholipid syndrome Trigger thumb of right and left hand Social History/Home Situation: Patient lives with significant other in a 2 [address] or house with 2 steps to enter and a rail on the right going up. Patient states that she has a 12 steps to the second floor where her bathroom is. She elaborates that she also onto a rope for the first five steps and has a rail on the right side for the rest of the way. She is independent with all aspects of ADLs prior to surgery. She still drives. She states that she is currently on disability. Her significant other works during the day. Equipment Owned/DME: None Subjective: Patient is agreeable to a PT consult. She reports pain on the right knee that is aggravated with movement. She complained of becoming mildly lightheaded upon raising up from bed early this morning. Objective: General Observation: Patient is seen resting on chair upon arrival of PT. Cryocuff on right knee. TRUPTI wraps on right knee. TEDS on left leg. Prince catheter and IV line detached earlier this morning. Mental Status: Alert and oriented x 4 Pain: 2/10 ROM: Right Upper Extremity: Shoulder Flexion WFL. Shoulder abduction WFL. Elbow flexion WFL. Wrist flexion WFL. Opening and closing of hand WFL. Left Upper Extremity: Shoulder Flexion WFL. Shoulder abduction WFL. Elbow flexion WFL. Wrist flexion WFL. Opening and closing of hand WFL. Right Lower Extremity: Hip flexion WFL. Hip abduction WFL. Knee flexion 0 to 92 degrees with tightness felt at end of range. Knee extension -22 degrees with tightness felt at end of range. Ankle dorsiflexion WFL. Ankle plantarflexion WFL. Left Lower Extremity: Hip flexion WFL. Hip abduction WFL. Knee flexion WFL. Ankle dorsiflexion WFL. Ankle plantarflexion WFL. Strength: Right Upper Extremity: Shoulder flexors 5/5. Shoulder abductors 5/5. Elbow flexors 5/5. Elbow extensors 5/5. Cordwood Cutter strong. Left Upper Extremity: Shoulder flexors 5/5. Shoulder abductors 5/5. Elbow flexors 5/5. Elbow extensors 5/5. Cordwood Cutter strong. Right Lower Extremity: Hip flexors 4/5. Hip abductors 4/5. Knee flexors 3-/5. Knee extensors 3-/5. Ankle dorsiflexors 5/5. Ankle plantarflexors 5/5. Left Lower Extremity:Hip flexors 5/5. Hip abductors 5/5. Knee flexors 5/5. Knee extensors 5/5. Ankle dorsiflexors 5/5. Ankle plantarflexors 5/5. Sensation: Intact as to pain and pressure on bilateral lower extremities. Bed Mobility/Transfers: Rolling supervision Supine to sit supervision Sit to supine supervision Sit to stand SBA Stand to sit SBA Bed to chair SBA Chair to bed SBA Gait: Patient tolerated level surface ambulation of 100 feet + 100 feet using front wheeled walker with SBA provided and minimal verbal cues for safe gait pattern and walker management. Patient also tolerated three 4 inch steps and two 6 inch steps while holding onto bilateral rails for the first attempt and just holding onto one rail for the second attempt with step to gait pattern requiring SBA of PT, minimal verbal cues given for increased right knee flexion. Patient reported an increase in pain level to 4/10 towards the end of the activity. Balance: Static Sitting: Normal Dynamic Sitting: Normal Static Standing: Fair Dynamic Standing: Fair Special Tests: Mobility Limitations Standardized Measure [facility] AM-PAC 6 clicks Basic Mobility Inpatient Short Form: Raw Score: 23 CMS Score: 11% deficit Informed Consent/Education: Patient instructed in purpose of PT consult and plan of care. Patient was educated and trained on list of exercises in the blue packet that she may do once at home on top of early performance of in-house ambulation in order to facilitate maximum recovery. Assessment: Patient is a 59-year-old female status post right total knee arthroplasty due to primary unilateral osteoarthritis of right knee on POD 1. Patient will be alone during the day as her significant other works but she will have help with meal preparation, bathing, and grocery shopping once at home. She is pleasant and cooperative. She is also motivated to return to her independent premorbid level. With adequate pain control strategies, prognosis for regaining prior level of function is good. She would need assistance to negotiate a flight of steps to the second floor of the house where she will do her bathing brand. Patient presents with clinical signs and symptoms consistent with current/admitting diagnoses that have resulted to mobility limitations, gait instability, generalized weakness, and impairment of motor control as demon strated by the following impairment level findings: 1. Decreased strength to right knee major muscle groups 2. Impaired standing balance 3. Impaired activity tolerance 4. Limitation of joint range of motion in right knee Impairments are contributing to the following functional limitations: 1. Inability to safely ambulate without assistive device and physical assistance 2. Increase completion time for mobility ADL performance 3. Increased fall risk 4. Inability to negotiate steps alone safely Patient is assessed as a 03704 moderate complexity based on the following: History: Patient is a 59-year-old female status post right total knee arthroplasty due to primary unilateral osteoarthritis of right knee on POD 1. Examination: Demonstrable impairment in strength, balance, and range of motion with underlying impairments and functional limitations as documented above Presentation:Evolving Decision Makin moderate complexity Goals: Goals X3 days 1. Supine-Sit independent 2. Sit-Supine independent 3. Sit-Stand independent 4. Stand-Sit independent 5. Bed-Chair independent 6. Chair-Bed independent 7. Independent gait on level surface with use of front-wheel walker for at least 300 feet without report of pain nor dyspnea 8. Independent stair negotiation while holding onto one rail for at least 10 steps without report of pain nor dyspnea 9. Independent with home exercise program 10. Good static and dynamic standing balance/tolerance Plan of Care/Treatment Plan: 1-2x/day, 7 days/week x 1 week. Plan of care has been reviewed with the GLASS SETTER providing the service under Physical Therapy direction. Initiate Physical Therapy intervention for strengthening, bed mobility, transfers, gait, stairs, balance training, use of assistive device. DISCHARGE RECOMMENDATIONS: May benefit from skilled physical therapy services according to orthopedic surgeon's timeline recommendations. Patient will be educated and trained on home exercise program per TKA exercise protocol in preparation for outpatient physical therapy services. TREATMENT CODE/TIME: 9716 2 x 25 minutes, 34293 x 14 minutes, beginning at 8:41 AM. Thank you very much for this referral. Deja Urrutia PT, DPT, CLT [facility]
[2019-07-17] MEDS: Normal Saline Flush 10 ML SYR IV ×2 (11:10→23:45)
--- NOTE | 2019-07-17 13:43 | PT.INTREAT ---
Date of service: 07/17/19 Time of Service: 13:43 PT Notes Visit Reasons: Right Knee DJD Inpatient Physical Therapy Treatment Note [facility] Date: 07/17/2019 PRECAUTIONS: Fall, WBAT R SUBJECTIVE: Francie reports that she would like to stay another night so that she can get a little more practice before going home. She is agreeable to participating in PT. OBJECTIVE: Patient cleared to be independent with transfers and ambulation within room PAIN: Patient complained of right knee pain with ther ex and gait training BED MOBILITY/TRANSFERS Supine-sit: I with HOB flat Sit-stand: I Stand-sit: I GAIT Assistive Device: FWW Weight bearing: WBAT R Assist: S Distance: 150' +50' Deviation: Step through gait pattern utilized THEREX: Patient completed a lower extremity strengthening and stabilization program, in a supine position, as per flow sheet. STAIRS: Up/down 9?4 and 6?6 using one rail/SPC and a step to pattern with supervision and occasional cueing for sequence ASSESSMENT: Patient tolerated session with complaints of right knee pain with there ex and gait training. She was able to tolerate a progression in gait distance with FWW support and supervision while utilizing step through gait pattern. PLAN: Continue with PTs POC TREATMENT CODE/TIME: 30 minutes; 70998, 61612
--- NOTE | 2019-07-17 14:42 | CHAPLAIN ---
Francie was very pleasant and easily engaged in a conversation. She was resting in bed, but said she has already worked with PT twice. She's staying one more night to feel more prepared to go home.
[2019-07-17 15:52] VITALS: BP 97/59; PULSE 67; RESP 16; TEMP 36.7; O2SAT 100
--- NOTE | 2019-07-17 17:16 | INITIAL_ITS ---
- If Service Date Differs Date of service: 07/17/19 Time of Service: 17:16 Care Management Initial Assess PAST MEDICAL HISTORY/PAST SURGICAL HISTORY:: Medical History: allergic rhinitis,amyloidosis, asthma,constipation,degenerative joint disease, diverticulitis, eczema, GERD, HTN,hyperlipidemia, hypocalcemia,insomnia,lupus,pericarditis, sciatica. Surgical hx: hysterectomy,thyroidectomy, tonsillectomy PREVIOUS FUNCTIONAL STATUS/SOCIAL/FAMILY SUPPORTS:: Francie lives in a large single family home in [facility] [place] with her friend Corby. She has 2 adult sons and one granddaughter. Francie is independent at baseline and does not have any community services. CURRENT FUNCTIONAL STATUS:: Francie was sitting on the side of the bed when CM met with her. She was pleasant and enngaged readily in conversation.Francie described her home and is concerned that she needs to climb 12 stairs to take a shower. She is working with PT and will be doing stairs. ADVANCE DIRECTIVES:: none and is not interested Has patient been provided with information about the portal?: No CODE STATUS:: Full Code INSURANCE COVERAGE / FINANCIAL ISSUES:: Medicaid. Financial Assist 100 CURRENT HOME/COMMUNITY SERVICES/EQUIPMENT:: none PRIMARY CARE PHYSICIAN:: Daniel Hinkle PATIENT/FAMILY EDUCATION NEEDS:: Discharge plan, limitations, follow up plan, Ask Me Three. TRANSPORTATION:: via private vehicle with friend PLAN:: Francie will likely discharge home with no new services. She will follow up with her surgeon and attend OP PT when provider determines she is ready. She will transport home via private vehicle. CM will continue to provide support to patient, family and discharge planning needs.
--- NOTE | 2019-07-17 20:34 | W.PM.PROGNOT ---
Date of Service Date of service: 07/17/19 Time of Service: 14:34 Assessment and Plan Assessment and plan (1) Osteoarthritis of right knee: Status: Chronic Assessment and plan: Francie is a 59yo s/p R TKA. She is doing well. Her pain is being managed currently with 2mg of Dilaudid. She is making good gains with PT but feels not quite ready to return home. We will keep her here for one more night to work with physical therapy and make sure she is doing well with her pain regimen. Likely home discharge tomorrow. Rivaroxaban for DVT prophylaxis. Qualifiers: Osteoarthritis type: primary Qualified Code(s): M17.11 - Unilateral primary osteoarthritis, right knee Subjective Subjective Interval history since last seen: Francie is doing well. She has had some pain but it is controlled with the 2mg of Dilaudid. She has been able to get up with PT and is making good progress. She still feels a little unsteady and lacks confident to return to home and manage her stairs. She denies any chest pain or shortness of breath. Exam Narrative Exam Narrative: Resting comfortably in the chair. TRUPTI wrap is in place over the leg and removed. Swelling and mild ecchymosis present. ROM is lacking in extension, 15 degrees. Able to actively extend the knee. +DP/SP/Tib. +DP/PT. Objective Objective Clinical Data: Vital Signs Temperature 36.4 C L 07/18/19 03:59 Temperature Source Tympanic 07/18/19 03:59 Pulse 69 07/18/19 03:59 Pulse Rhythm Regular 07/18/19 00:02 Respiratory Rate 17 07/18/19 03:59 Respiratory Effort Non-Labored 07/18/19 00:02 Respiratory Depth Normal 07/18/19 00:02 Respiratory Pattern Normal 07/18/19 00:02 Blood Pressure 137/71 07/18/19 03:59 Pulse Oximetry 96 07/18/19 03:59 Respiratory End-tidal CO2 28 07/16/19 15:48 Oxygen Delivery Method Room Air 07/18/19 03:59 Oxygen Flow Rate 0 07/18/19 03:59 Pain Level 2 07/18/19 03:59 Comment 07/17/19 07:52 Intake & Output 07/17/19 07/17/19 07/18/19 11:59 23:59 11:59 Intake Total 1076.666 / 1146.666 70 / 1146.666 Output Total 780 / 1730 950 / 1730 Balance 296.666 / -583.334 -880 / -583.334 Intake: IV 956.666 / 1026.666 70 / 1026.666 Oral 120 / 120 Output: Urine 780 / 1730 950 / 1730 Other: Urine Color Straw Yellow Light Shakira Urine Appearance Clear Clear Urine Odor Normal Normal Comment first void since amado removal; very minimal output Voiding independently in room, patient states it is dark and sometimes has specks of blood with wiping Stool Size Small Stool Characteristics Soft Formed Brown Voiding Methods Bedside Commode Toilet
[2019-07-17 21:03] VITALS: BP 108/66; PULSE 71; RESP 18; TEMP 37; O2SAT 97
[2019-07-17] MEDS: Rivaroxaban 10 MG TABLET PO (21:51)
[2019-07-17] MEDS: Pramipexole 0.25 MG TAB PO (21:51)
[2019-07-18 00:05] VITALS: BP 124/70; PULSE 66; RESP 16; TEMP 36.6; O2SAT 96
[2019-07-18 03:59] VITALS: BP 137/71; PULSE 69; RESP 17; TEMP 36.4; O2SAT 96
[2019-07-18] MEDS: HYDROmorphone 2 MG TAB PO ×2 (05:27→11:31)
[2019-07-18] MEDS: Hydroxychloroquine 200 MG TAB PO (05:27)
[2019-07-18 08:25] VITALS: BP 124/76; PULSE 71; RESP 22; TEMP 36.5; O2SAT 99
[2019-07-18] MEDS: Losartan 50 MG TAB 100 MG PO (08:40)
[2019-07-18] MEDS: Celecoxib 100 MG CAP PO (08:40)
[2019-07-18] MEDS: hydroCHLOROthiazide 12.5 MG TAB PO (08:40)
[2019-07-18] MEDS: Potassium Chloride 10 MEQ CAPCR PO (08:40)
[2019-07-18] MEDS: Loratidine 10 MG TAB PO (08:40)
[2019-07-18] MEDS: Simvastatin 20 MG TAB PO (08:40)
[2019-07-18] MEDS: Pantoprazole 40 MG TABCR PO (08:41)
[2019-07-18] MEDS: Normal Saline Flush 10 ML SYR IV (08:41)
[2019-07-18] MEDS: Calcium Carbonate 1.25 GM TAB PO (08:41)
[2019-07-18] MEDS: Acetaminophen 500 MG TAB 1000 MG PO ×2 (08:41→13:40)
[2019-07-18] MEDS: Mometasone 220 MCG 14 DOSE INHALER 2 PUFF IH (09:26)
[2019-07-18 11:00] VITALS: BP 145/74; PULSE 72; RESP 20; TEMP 36.7; O2SAT 98
--- NOTE | 2019-07-18 11:08 | CMDISCH_ITS ---
- If Service Date Differs Date of service: 07/18/19 Time of Service: 11:08 LACE Index Scoring Tool - Questions: Length of Stay (in days): 2 Acuity (Admit via E.D.?): No E.D. Visits: 1 - Answers: Total Score: 3 Risk of Readmission: Low Risk Care Management Discharge Reason for Hospitalization: Right knee DJD Discharge Plan: Francie is discharged home. She will follow up with Dr. Arthur, her PCP, and her plan of care as directed, including medication recommendations and activity limitations. FWW coordinated through [facility] per patient request. CM sent referrals for Meals on Wheels and Home Health PT. Francie's housemate, Corby, is transporting her home via private vehicle. Patient/Family Education Needs: Nursing will review discharge instructions with Francie re medications and activity level. Francie is able to verbalize reason for hospitalization and how to manage care at home. Services Needed at Discharge: Home Delivered Meals, Physical Therapy
--- NOTE | 2019-07-18 12:59 | PT.INTREAT ---
Date of service: 07/18/19 Time of Service: 12:59 PT Notes Visit Reasons: Right Knee DJD Inpatient Physical Therapy Treatment Note [facility] Date: 07/18/2019 PRECAUTIONS: Fall, WBAT R SUBJECTIVE: Francie reports that she is having increased pain today. She is agreeable to participating in PT. OBJECTIVE: Patient cleared to be independent with transfers and ambulation within room PAIN: Patient complained of right knee pain with ther ex and gait training BED MOBILITY/TRANSFERS Supine-sit: I Sit-supine: I Sit-stand: I Stand-sit: I GAIT Assistive Device: FWW Weight bearing: WBAT R Assist: S Distance: 50' + 150' Deviation: Step through gait pattern utilized, seated rest x1 THEREX: Patient completed a lower extremity strengthening and stabilization program, in a supine position, as per flow sheet. STAIRS: Up/down 3?4 and 2?6 using one rail/SPC and a step to pattern, independently ASSESSMENT: Patient tolerated session with complaints of right knee pain with there ex and gait training. She would benefit from continued gait training and strengthening for continued improvement in mobility and activity tolerance. PLAN: As per primary PT TREATMENT CODE/TIME: 25 minutes; 36735, 53619
[2019-07-18 15:30] VITALS: BP 115/56; PULSE 75; RESP 18; TEMP 36.6; O2SAT 96
== END 2019-07-18 16:58 | disposition home or self-care (01) | DRG 470 ==
LOC: PDS 09:47 → MS 16:15
PROVIDERS: Admitting Provider Student in an Organized Health Care Education/Training Program; PCP Family Medicine; Visit Provider Student in an Organized Health Care Education/Training Program
PROC: 0SRC0J9 Replacement of Right Knee Joint with Synthetic Substitute, Cemented, Open Approach (ICD-10-PCS; CPT 27447; principal; 2019-07-16 12:30)
DX: M17.11 Unilateral primary osteoarthritis, right knee (principal); M21.061 Valgus deformity, not elsewhere classified, right knee; Z96.651 Presence of right artificial knee joint; G89.18 Other acute postprocedural pain
CPT/HCPCS: 27447; 20985; 76942; 94640; 97110; 97162; 97530; NC; 93005; 93010; J0690; J1885; J2250; J2405; J3010; J3490

== ENCOUNTER 2019-08-01 13:42 | Outpatient (CLI) | payer MEDICAID, SELFPAY ==
--- NOTE | 2019-08-01 13:30 | DI.RAD_ITS ---
EXAM: XR STANDING ALIGNMENT CLINICAL HISTORY: 1ST POST OP COMPARISON: XR KneeStanding Alignment from 04/24/2019 FINDINGS: AP standing alignment views were obtained with views of both lower extremities. The hips are obscure d by overlying devices. There is a total knee joint replacement in position on the right. There are moderate degenerative changes of the left knee and there are mild degenerative changes of the joints of the ankles.
--- NOTE | 2019-08-01 13:32 | DI.RAD_ITS ---
EXAM: XR KNEE RT 1V CLINICAL HISTORY: 1ST POST OP TECHNIQUE: COMPARISON: XR KneeStanding Alignment from 04/24/2019 FINDINGS: Lateral view of the knee was obtained and shows total knee joint replacement in position. The compon ents appear well seated. No other bony abnormality seen. IMPRESSION:
== END 2019-08-01 14:02 ==
PROVIDERS: PCP Family Medicine; Visit Provider Student in an Organized Health Care Education/Training Program
DX: Z96.651 Presence of right artificial knee joint (principal); Z47.1 Aftercare following joint replacement surgery; M17.12 Unilateral primary osteoarthritis, left knee
CPT/HCPCS: 73560; 77073

== ENCOUNTER 2019-08-26 01:13 | Outpatient (CLI) | payer MEDICAID, SELFPAY ==
--- NOTE | 2019-08-26 11:47 | DI.MAMMO_ITS ---
EXAM: MG MAMMO SCREENING CLINICAL HISTORY: SCREENING Z12.39. TECHNIQUE: Bilateral full field digital CC and MLO mammographic images were obtained with 3D tomosyn thesis and utilizing computer aided detection (CAD). COMPARISON: Available for comparison. FINDINGS: Masses/Architectural Distortion: None seen. Microcalcifications: No suspicious pleomorphic-type are seen. Skin Thickening/Nipple Retraction: None. IMPRESSION: 1. No significant interval change with no specific features of malignancy noted. 2. Unless there is more urgent need, screening mammography is recommended, as per [employer] guidelines. ACR BI-RAD Category- 1 Negative Breast Density - Category C - Heterogeneously dense The mammogram demonstrates the patient's breast tissue is dense. Dense breast tissue is very common a nd is not abnormal but dense breast tissue can make it harder to find cancer on a mammogram. Also, de nse breast tissue may increase their breast cancer risk. This information about the result of the [facility] mogram report was provided to the patient to raise their awareness. Use this report when you speak wi th the patient about their risks for breast cancer, which includes their family history. At that time , you may recommend for more screening tests (Ultrasound or MRI) as they might be useful based on the ir risk. A negative radiographic report should not delay biopsy if a dominant or clinically suspicious mass is present. Up to ten percent of cancers are not identified on mammography. A negative report may reinforce clinical impression. Adenosis and dense breasts may obscure an underlying neoplasm. False positive reports average 6 to 10%. Patient will receive a letter notifying them of these results.
== END 2019-08-26 01:33 ==
PROVIDERS: PCP Family Medicine; Visit Provider Family Medicine
DX: Z12.31 Encounter for screening mammogram for malignant neoplasm of breast (principal)
CPT/HCPCS: 77063; 77067

== ENCOUNTER 2020-01-16 15:38 | Outpatient (REF) | payer MEDICAID, SELFPAY ==
[2020-01-16 20:17] LABS: HCT 39.6 % (36.0-46.0); HGB 13.5 g/dL (12.0-15.5); Mean Corp. HGB Concentration 34.1 g/dL (32.0-36.0); Mean Corpuscular Hemoglobin 27.9 pg (27.0-33.0); Mean Corpuscular Volume 81.8 fL (80-95); Mean Platelet Volume 10.3 fL (8.0-11.0); Platelet Count 293 x1000/uL (130-400); RBC 4.84 m/cumm (4.00-5.20); RBC Distribution Width 14.3 % (11.7-14.6); White Blood Cell Count 7.98 k/cumm (4.4-10.8)
[2020-01-16 20:32] LABS: ALT 22 U/L (14-59); Albumin 3.6 g/dL (3.4-5.0); Anion Gap 6.1 mmol/L (3-11); BUN 16 mg/dL (7-18); CO2 30.9 mmol/L (21.0-32.0); CREATININE 0.73 mg/dL (0.55-1.02); Calcium 7.8 mg/dL (8.5-10.1); Chloride 103 mmol/L (98-107); Glucose 110 mg/dL (74-106); Potassium 3.6 mmol/L (3.5-5.1); Sodium 140 mmol/L (136-145); TSH (W/Ref FT4) 2.45 uIU/mL (0.36-3.74)
[2020-01-16 20:47] LABS: Vitamin D 25 Total 19.5 ng/ml (30-100)
[2020-01-20 12:22] LABS: Parathyroid Hormone,Intact 28 pg/mL (19-88)
== END 2020-01-16 15:58 ==
LOC: NCHCN 15:38
PROVIDERS: PCP Family Medicine; Visit Provider Family Medicine
DX: B36.0 Pityriasis versicolor (principal); E89.0 Postprocedural hypothyroidism; E83.51 Hypocalcemia; E87.6 Hypokalemia; L93.0 Discoid lupus erythematosus; E55.9 Vitamin D deficiency, unspecified
CPT/HCPCS: 80048; 82306; 85027; 82040; 83970; 84443; 84460

== ENCOUNTER 2020-04-15 21:15 | Outpatient (REF) | payer MEDICAID, SELFPAY ==
[2020-04-15 20:44] LABS: Bilirubin Negative (Negative); Blood Negative (Negative); Clarity Clear (Clear); Glucose Negative (Negative); Ketones Negative (Negative); Leukocyte Esterase Negative (Negative); Nitrite Negative (Negative); Specific Gravity 1.015 (1.005-1.025); Urobilinogen 0.2 EU/dL (Up TO 0.2)
== END 2020-04-15 21:35 ==
LOC: NCHCN 21:15
PROVIDERS: PCP Family Medicine; Visit Provider Nurse Practitioner Family
DX: R35.0 Frequency of micturition (principal)
CPT/HCPCS: 81003

== ENCOUNTER 2020-04-22 15:25 | Outpatient (CLI) | payer MEDICAID, SELFPAY ==
[2020-04-22 12:20] LABS: Anion Gap 9.2 mmol/L (3-11); BUN 13 mg/dL (7-18); CO2 27.8 mmol/L (21.0-32.0); CREATININE 0.85 mg/dL (0.55-1.02); Calcium 8.1 mg/dL (8.5-10.1); Chloride 102 mmol/L (98-107); Glucose 99 mg/dL (74-106); Magnesium 1.9 mg/dL (1.8-2.4); Potassium 3.5 mmol/L (3.5-5.1); Sodium 139 mmol/L (136-145)
[2020-04-22 20:48] LABS: Ionized Calcium 0.91 mmol/L (1.12-1.32)
== END 2020-04-22 15:45 ==
PROVIDERS: PCP Family Medicine; Visit Provider Family Medicine
DX: E83.51 Hypocalcemia (principal); E87.6 Hypokalemia; E55.9 Vitamin D deficiency, unspecified
CPT/HCPCS: 36415; 80048; 82306; 82330; 83735

== ENCOUNTER 2020-05-04 00:26 | Outpatient (CLI) | payer MEDICAID, SELFPAY ==
--- NOTE | 2020-05-04 | DI.US_ITS ---
EXAM: US PELVIS TRANSVAGINAL CLINICAL HISTORY: PELVIC PAIN, R10.2. TECHNIQUE: Transabdominal and transvaginal pelvic ultrasound was performed using standard protocol. COMPARISON: US PELVIS TRANSVAG from 10/13/2017 FINDINGS: KIDNEYS: Kidneys are symmetric in size. No evidence of renal calculi. No evidence of hydronephrosis. No renal mass or cyst identified. UTERUS: Status post hysterectomy. OVARIES: Right: Not visualized on this examination. No right adnexal mass is seen sonographically. Left: Status post left oophorectomy. CUL-DE-SAC: Free fluid: None. Other: None. IMPRESSION: 1. Normal sonographic appearance of the kidneys. 2. Status post hysterectomy and left oophorectomy. 3. The right ovary is not visualized on this examination. No right adnexal mass is seen sonographica lly. DATA REPOSITORY:
== END 2020-05-04 00:46 ==
PROVIDERS: PCP Family Medicine; Visit Provider Family Medicine
DX: R10.2 Pelvic and perineal pain (principal); Z90.710 Acquired absence of both cervix and uterus; Z90.721 Acquired absence of ovaries, unilateral
CPT/HCPCS: 76830; 76856

== ENCOUNTER 2020-05-06 13:06 | Outpatient (REF) | payer MEDICAID, SELFPAY | END 2020-05-06 13:26 | LOC: NCHCN 13:06 | PROVIDERS: PCP Family Medicine; Visit Provider Family Medicine | DX: N39.0 Urinary tract infection, site not specified (principal) | CPT/HCPCS: 87086 ==

== ENCOUNTER 2020-05-08 14:48 | Inpatient (IN) | payer MEDICAID, SELFPAY ==
[2020-05-08 14:57] VITALS: BP 138/61; PULSE 83; RESP 16; TEMP 36.5; O2SAT 97
--- NOTE | 2020-05-08 15:00 | DI.CT_ITS ---
EXAM: CT ABDOMEN PELVIS W CLINICAL HISTORY: abd pain. TECHNIQUE: Imaging Protocol: Axial computed tomography images with coronal and sagittal reformatted images were created and reviewed CONTRAST MATERIAL: Intravenous: Omnipaque 350 Contrast volume:100 ml Oral: no COMPARISON: CT CT ABDOMEN PELVIS W from 10/29/2018 FINDINGS: The lung bases show minimal atelectasis. The heart size is normal. There is stable dilatation of th e common bile duct and stable liver cysts. Spleen, pancreas, adrenals and kidneys are unremarkable. The appendix is normal. There is diverticulosis involving the descending and sigmoid colon. There is stranding in the wall of the mid sigmoid, adjacent to the bladder. There is bladder wall thickeni ng. There is abnormal air seen between the sigmoid and vaginal apex which could represent perforatio n and a small abscess. The patient is status post hysterectomy. The aorta shows moderate calcificat ion. Degenerative changes are noted in the spine. Impression: Sigmoid diverticulitis with small abscess between the colon and vaginal apex. Fistula formation may be present. RADIATION DOSE DELIVERED: 1,091.03mGy.cm Total DLP DATA REPOSITORY: All CT scans at this facility are submitted to the National Radiology Data Registry (NRDR) Dose Index Registry (DIR) with the [employer] (ACR). RADIATION OPTIMIZATION: All CT scans at this facility use at least one of these dose optimization te chniques: automated exposure control; mA and/or kV adjustment per patient size (includes targeted exa ms where dose is matched to clinical indication); or iterative reconstruction.
--- NOTE | 2020-05-08 15:11 | ED.GENADUL_ITS ---
Discharge Plan Disposition Patient Disposition: [facility] INPATIENT Condition: Fair Discharge Details Clinical Impression: Diverticulitis of sigmoid colon Admit Date/Time: 05/08/20 19:33 Admit Provider: Dyan Barroso Attending Provider: Dyan Barroso Primary Care Provider: Daniel Hinkle ED Provider: Anita Stevenson Discharge Data Discharge Date/Time-TO BE ENTERED AT DEPARTURE: 05/08/20 20:46 Medical Decision Making Patient presents with ongoing abdominal bloating and discomfort, being treated with Augmentin for diverticulitis day 2. Also being treated for urinary tract infection with no cultures pending. Will obtain CT of the abdomen pelvis CBC CMP lipase and UA. CT of the abdomen and pelvis does show evidence of diverticulitis in the sigmoid colon with extra colonic air in the region of inflammation concerning for diverticular perforation with possible small abscess. Also concern for colovaginal fistula formation. Her labs are reviewed and urine shows ongoing infection despite 2 days of Augmentin. I will give her 1 g of IV ceftriaxone as it is unlikely the Augmentin is covering her infection. Her CT results were reviewed with Dr. Barroso from general surgery who will admit her to the medical surgical unit for IV ceftriaxone and Flagyl and further monitoring. Medical Records Medical records reviewed: Yes I reviewed the patient's medical records. Lab Data Lab results reviewed: Yes I reviewed the patient's lab results. Lab results narrative: Laboratory Results - last 24 hr 05/08/20 05/08/20 05/08/20 15:15 15:15 15:15 WBC 10.93 H RBC 5.01 Hgb 14.0 Hct 42.0 MCV 83.8 MCH 27.9 MCHC 33.3 RDW 13.3 Plt Count 326 MPV 9.1 Immature Gran % 0.3 Neutrophils % 84.4 Lymphocytes % 5.7 Monocytes % 7.3 Eosinophils % 2.0 Basophils % 0.3 Nucleated RBC % 0 Absolute Neutrophils 9.22 H Absolute Lymphocytes 0.62 L Absolute Monocytes 0.80 Absolute Eosinophils 0.22 Absolute Basophils 0.03 Sodium 140 Potassium 3.2 L Chloride 101 Carbon Dioxide 31.5 Anion Gap 7.5 BUN 17 Creatinine 0.98 Estimated GFR/1.73 m2 58.29 Glucose 92 Calcium 8.4 L Magnesium 2.1 Total Bilirubin 0.4 AST 19 ALT 22 Alkaline Phosphatase 103 Total Protein 7.0 Albumin 3.7 Urine Color Yellow Urine Clarity Clear Urine pH 7.0 Ur Specific [place] 1.015 Urine Protein Negative Urine Ketones Negative Urine Blood Trace-lysed H Urine Nitrite Negative Urine Bilirubin Negative Urine Urobilinogen 0.2 Ur Leukocyte Esterase Large H Urine RBC 0-2 Urine WBC 10-20 H Ur Epithelial Cells Few Urine Crystals Negative Urine Bacteria Moderate Urine Casts Negative Urine Mucus Negative Ur Culture Indicated? Yes Urine Glucose Negative 05/08/20 17:50 WBC RBC Hgb Hct MCV MCH MCHC RDW Plt Count MPV Immature Gran % Neutrophils % Lymphocytes % Monocytes % Eosinophils % Basophils % Nucleated RBC % Absolute Neutrophils Absolute Lymphocytes Absolute Monocytes Absolute Eosinophils Absolute Basophils Sodium Potassium Chloride Carbon Dioxide Anion Gap BUN Creatinine Estimated GFR/1.73 m2 Glucose Calcium Magnesium Total Bilirubin AST ALT Alkaline Phosphatase Total Protein Albumin Urine Color Yellow Urine Clarity Clear Urine pH 7.0 Ur Specific [place] 1.015 Urine Protein Negative Urine Ketones Negative Urine Blood Negative Urine Nitrite Negative Urine Bilirubin Negative Urine Urobilinogen 0.2 Ur Leukocyte Esterase Small H Urine RBC 0-2 Urine WBC 5-10 Ur Epithelial Cells Few Urine Crystals Negative Urine Bacteria Few Urine Casts Negative Urine Mucus Negative Ur Culture Indicated? Yes Urine Glucose Negative HPI General Date/Time Provider Initiated Documentation: 05/08/20 15:11 . Limitations to Documentation: no limitations . Information obtained by: patient . HPI Narrative: Patient presents with complaints of ongoing lower abdominal pain and bloating. She initially reported blood she noted after urination. She says she now is passing tannish discharge from her vagina. She is not sexually active. She has had no fevers. She is on Augmentin for diverticulitis and a urinary tract infection. Related Data Home Medications Medication Instructions Recorded Confirmed simvastatin 20 mg PO DAILY 11/15/12 05/08/20 hydroxychloroquine 200 mg PO DAILY #30 tab-cap 11/16/16 05/08/20 levothyroxine 125 mcg PO HS tab-cap 05/25/17 05/08/20 albuterol sulfate 90 mcg/actuation 2 puff INHALATION Q6H PRN inh 10/04/18 05/08/20 aerosol inhaler loratadine 10 mg PO DAILY 10/28/18 05/08/20 Flovent HFA 2 puff INHALATION BID PRN 07/05/19 05/08/20 calcium carbonate [Oyster Shell 500 mg PO DAILY 07/05/19 05/08/20 Calcium] losartan-hydrochlorothiazide 1 tab PO DAILY 07/05/19 05/08/20 pramipexole 0.25 mg PO QHS 07/05/19 05/08/20 acetaminophen 1,000 mg PO Q8H PRN #90 tab 07/17/19 05/08/20 ibuprofen 600 mg PO Q8H PRN #60 tab 07/17/19 05/08/20 amoxicillin-pot clavulanate 3 tab PO TID 05/08/20 05/08/20 aspirin [Aspir-81] 81 mg PO DAILY 05/08/20 05/08/20 Previous Rx's Medication Instructions Recorded acetaminophen 1,000 mg PO Q8H PRN #90 tab 07/17/19 ibuprofen 600 mg PO Q8H PRN #60 tab 07/17/19 Allergies Allergy/AdvReac Type Severity Reaction Status Date / Time oxycodone [From Percocet] AdvReac Intermediate Nausea Verified 05/08/20 15:04 General Stated Complaint: Abd Prob PRISCILLA: 3 Review of Systems Constitutional Constitutional: Denies fever(s) ENT Ears, Nose, Mouth, and Throat: Denies dizziness Cardiovascular Cardiovascular: Denies chest pain and Denies dyspnea Respiratory Respiratory: Denies cough and Denies dyspnea Gastrointestinal Gastrointestinal: Reports abdominal pain, Denies melena, Reports bloating, Denies constipation, Denies diarrhea, Denies nausea and Denies vomiting Genitourinary Genitourinary: Reports abnormal vaginal bleeding and Reports vaginal discharge (Tannish) Neurologic Neurologic: Denies dizziness [facility] Medical History (Updated 05/08/20 @ 19:49 by Dyan Barroso MD) Abnormal mammogram of right breast Allergic rhinitis Amyloidosis Antiphospholipid syndrome Asthma Chest wall pain Constipation as above Degenerative joint disease Diverticulitis of sigmoid colon chronic vs abx assoc colitis Eczema GERD (gastroesophageal reflux disease) stable Herniated nucleus pulposus, lumbar HTN (hypertension) Hyperlipidemia Hypocalcemia Insomnia Lupus Normal colonoscopy [place] 11/13/[address] Natalya Styles at [facility], severe diverticular dz, repeat 10 years. mg Pericarditis Sciatica, left side Surgical History H/O: hysterectomy History of bone marrow biopsy S/P thyroidectomy Tonsillectomy Social History Smoking/Tobacco Use Status: Former Tobacco Use Quit Date: 08/14/99 Alcohol Intake: current Alcohol Intake frequency: a few times a week Alcohol type: beer and wine Drug use: Never Substance use type: does not use Details: alcohol: t-7 Current gender identity: female Do you feel safe at home: Yes Do you feel safe in your relationship?: Yes Exam Const General: cooperative, healthy appearing, comfortable and no acute distress Nutritional Appearance: average body habitus Orientation: alert, awake and oriented x3 HENMT Head: normal to inspection, normocephalic and atraumatic Mouth: oral mucosae normal Resp Effort & Inspection: normal respiratory effort Auscultation: clear to auscultation bilaterally Cardio Rate: regular rate Rhythm: regular rhythm GI Inspection: distended and obesity Palpation: soft and tender in the LLQ and in the RLQ Auscultation: normal bowel sounds Skin General skin exam: no rashes or lesions noted Neuro General: patient alert, patient awake and patient oriented x3 Extrem General: normal to inspection and full ROM Course Vital Signs Vital signs: Vital Signs Temperature 36.5 C 05/08/20 14:57 Pulse 83 05/08/20 14:57 Respiratory Rate 16 05/08/20 14:57 Blood Pressure 138/61 05/08/20 14:57 Pulse Oximetry 97 05/08/20 14:57 Temperature 36.5 C 05/08/20 14:57 Temperature Source Skin 05/08/20 14:57 Pulse 83 05/08/20 14:57 Respiratory Rate 16 05/08/20 14:57 Respiratory Effort 05/08/20 15:03 Blood Pressure 138/61 05/08/20 14:57 Blood Pressure Position Sitting 05/08/20 14:57 Pulse Oximetry 97 05/08/20 14:57 Oxygen Delivery Method Room Air 05/08/20 14:57 Oxygen Flow Rate 0 05/08/20 14:57 Pain Level 6 05/08/20 14:57
[2020-05-08] MEDS: Normal Saline 1,000 ML 1000 ML IV (15:20)
[2020-05-08 15:24] LABS: Abs Immature Grans 0.03 10^3/uL (0.0-0.06); Absolute Basophil Count 0.03 10^3/uL (0.0-0.2); Absolute Eosinophil Count 0.22 10^3/uL (0.0-0.7); Absolute Lymphocyte Count 0.62 10^3/uL (1.2-3.4); Basophils % 0.3; Immature Grans % 0.3; Lymphocytes % 5.7; MCH 27.9 pg (27.0-33.0); MCHC 33.3 % (32.0-36.0); MCV 83.8 fL (80-95); MPV 9.1 fL (8.0-11.0); Monocytes % 7.3; Neutrophils % 84.4; Nucleated RBC 0 %; Platelet Count 326 10^3/uL (130-400); RBC 5.01 10^6/uL (3.93-5.22); RDW 13.3 % (11.7-14.6); RDW-SD 40.5 fL; WBC 10.93 10^3/uL (4.4-10.8)
[2020-05-08 15:29] LABS: Absolute Neutrophil Count 9.22 10^3/uL (1.2-6.7)
[2020-05-08 15:45] LABS: ALT 22 U/L (14-59); AST 19 U/L (15-37); Albumin 3.7 g/dL (3.4-5.0); Alkaline Phosphatase 103 U/L (46-116); Anion Gap 7.5 mmol/L (3-11); BUN 17 mg/dL (7-18); Bilirubin, Total 0.4 mg/dL (0.2-1.0); CO2 31.5 mmol/L (21.0-32.0); CREATININE 0.98 mg/dL (0.55-1.02); Calcium 8.4 mg/dL (8.5-10.1); Chloride 101 mmol/L (98-107); Estimated GFR 58.29 (mL/min/1.73m2); Glucose 92 mg/dL (74-106); Magnesium 2.1 mg/dL (1.8-2.4); Potassium 3.2 mmol/L (3.5-5.1); Sodium 140 mmol/L (136-145)
[2020-05-08 15:56] LABS: Bilirubin Negative (Negative); Blood Trace-lysed (Negative); Clarity Clear (Clear); Glucose Negative (Negative); Ketones Negative (Negative); Leukocyte Esterase Large (Negative); Nitrite Negative (Negative); Specific Gravity 1.015 (1.005-1.025); Urobilinogen 0.2 EU/dL (Up TO 0.2)
[2020-05-08 16:07] LABS: Bacteria Moderate HPF (Negative); Crystals Negative HPF (Negative); Epithelial Cells Few HPF (Negative); Mucus Negative (Negative); RBC 0-2 HPF (0-2)
[2020-05-08 16:08] LABS: C & S Indicated? Yes; Casts Negative LPF (Negative)
[2020-05-08 17:00] VITALS: BP 140/65; PULSE 70; RESP 20; TEMP 36.6; O2SAT 98
[2020-05-08] MEDS: Omnipaque 350 MG/ML 100 ML BTL IJ (17:43)
[2020-05-08] MEDS: Normal Saline - Diluent 50 ML VIAL IV (17:45)
[2020-05-08] MEDS: Normal Saline Flush 10 ML SYR IVP ×2 (17:46→21:45)
[2020-05-08 18:00] LABS: Bilirubin Negative (Negative); Blood Negative (Negative); Clarity Clear (Clear); Glucose Negative (Negative); Ketones Negative (Negative); Leukocyte Esterase Small (Negative); Nitrite Negative (Negative); Specific Gravity 1.015 (1.005-1.025); Urobilinogen 0.2 EU/dL (Up TO 0.2)
[2020-05-08 18:09] LABS: Bacteria Few HPF (Negative); C & S Indicated? Yes; Casts Negative LPF (Negative); Crystals Negative HPF (Negative); Epithelial Cells Few HPF (Negative); Mucus Negative (Negative); RBC 0-2 HPF (0-2)
[2020-05-08] MEDS: cefTRIAXone 1 GM/50 ML BAG IVPB (18:25)
--- NOTE | 2020-05-08 19:13 | DI.VRAD_ITS ---
PROCEDURE INFORMATION: Exam: CT Abdomen And Pelvis With Contrast Exam date and time: 05/08/2020 3:13 PM Age: 60 years old Clinical indication: Generalized; Patient HX: Abdominal pain, per PT: Ongoing couple weeks TECHNIQUE: Imaging protocol: Computed tomography of the abdomen and pelvis with intravenous contrast. COMPARISON: CT ABDOMEN PELVIS W 10/29/2018 12:26 PM FINDINGS: Lungs: Mild atelectasis is noted in the lung bases. Liver: Foci of hypodensity again noted in the liver, likely cysts. Gallbladder and bile ducts: The common bile duct appears prominent in size, however unchanged when compared to the prior examination. Pancreas: Normal. No ductal dilation. Spleen: Normal. No splenomegaly. Adrenals: Normal. No mass. Kidneys and ureters: Normal. No hydronephrosis. Stomach and bowel: There is redemonstration of diffuse colonic diverticulosis predominantly in the descending and sigmoid colon. Inflammatory changes are noted in the sigmoid colon, suggestive of diverticulitis. Appendix: No evidence of appendicitis. Intraperitoneal space: In the region of diverticular inflammation, there is 1.7 cm region of loculated air between the sigmoid colon, left vaginal apex and urinary bladder (image 52, series 7).This finding may represent diverticular perforation with possible abscess formation and possible fistula to the vaginal canal. Vasculature: Unremarkable. No abdominal aortic aneurysm. Lymph nodes: Small scattered lymph nodes are noted in the retroperitoneum, however only [address] criteria measuring up to 1.1 cm (image 50, series 4). Urinary bladder: There is thickening of the left posterior urinary bladder wall in the region of diverticulitis, which may be reactive in nature. Reproductive: Prominent foci of air noted in the adjacent left vaginal apex, which may be communicating with the extracolonic air. There has been a hysterectomy. Bones/joints: Multilevel degenerative changes are noted in the lumbar spine. No acute fracture. Soft tissues: Unremarkable. IMPRESSION: 1. Evidence of diverticulitis in the sigmoid colon, which may be acute or chronic in nature, given evidence of prior diverticulitis. Focus of extracolonic air in the region of inflammation may represent diverticular perforation with possible small abscess. Additionally, there is a concern for colovaginal fistula formation, given air within the adjacent left vaginal apex. Correlate with clinical history and speculum examination of the left vaginal apex for further evaluation. A contrast enema study may also be considered. 2. Adjacent left posterior urinary bladder wall thickening and mild retroperitoneal lymphadenopathy may be findings reactive to the inflammatory process. Dictated and Authenticated by: Glenda Jackson MD. Ordering:ANNA Howard MD
[2020-05-08 19:38] VITALS: BP 150/88; PULSE 68; RESP 18; TEMP 36.2; O2SAT 98
--- NOTE | 2020-05-08 19:40 | W.PM.HP.N ---
Date of service: 05/08/20 Time of Service: 19:41 Assessment and Plan Assessment and plan (1) Diverticulitis of sigmoid colon: Status: Acute Assessment and plan: A\\ 60 year old female with Diverticulitis and colovaginal fistula. There is possible small abscess as well. She also looks like she has a UTI. Cultures are pending P\\ Admision for IV antibiotics Clear liquids Ambulation as tolerated Pain control with tylenol, toradol and IV dilauded (2) Colovaginal fistula: Status: Acute (3) Urinary tract infection: Status: Acute Qualifiers: Urinary tract infection type: acute cystitis Hematuria presence: without hematuria Qualified Code(s): N30.00 - Acute cystitis without hematuria History of Present Illness History of Present Illness Chief Complaint: abdominal pain Consults Consult date: 05/08/20 Requesting physician: Aniat Stevenson Narrative: Patient presents with complaints of ongoing lower abdominal pain and bloating. She initially reported blood she noted after urination. She says she now is passing tannish discharge from her vagina. She is not sexually active. She has had no fevers. She is on Augmentin for diverticulitis and a urinary tract infection. The lower abdominal pain and bloating started 2 weeks ago. She was started on Augmentin 2 days ago for a uti. CT scan was done today and showed diverticulitis with possible small abscess and evidence of a colovaginal fistula. COMPARISON: CT ABDOMEN PELVIS W 10/29/2018 12:26 PM FINDINGS: Lungs: Mild atelectasis is noted in the lung bases. Liver: Foci of hypodensity again noted in the liver, likely cysts. Gallbladder and bile ducts: The common bile duct appears prominent in size, however unchanged when compared to the prior examination. Pancreas: Normal. No ductal dilation. Spleen: Normal. No splenomegaly. Adrenals: Normal. No mass. Kidneys and ureters: Normal. No hydronephrosis. Stomach and bowel: There is redemonstration of diffuse colonic diverticulosis predominantly in the descending and sigmoid colon. Inflammatory changes are noted in the sigmoid colon, suggestive of diverticulitis. Appendix: No evidence of appendicitis. Intraperitoneal space: In the region of diverticular inflammation, there is 1.7 cm region of loculated air between the sigmoid colon, left vaginal apex and urinary bladder (image 52, series 7).This finding may represent diverticular perforation with possible abscess formation and possible fistula to the vaginal canal. Vasculature: Unremarkable. No abdominal aortic aneurysm. Lymph nodes: Small scattered lymph nodes are noted in the retroperitoneum, however only [address] criteria measuring up to 1.1 cm (image 50, series 4). Urinary bladder: There is thickening of the left posterior urinary bladder wall in the region of diverticulitis, which may be reactive in nature. Reproductive: Prominent foci of air noted in the adjacent left vaginal apex, which may be communicating with the extracolonic air. There has been a hysterectomy. Bones/joints: Multilevel degenerative changes are noted in the lumbar spine. No acute fracture. Soft tissues: Unremarkable. IMPRESSION: 1. Evidence of diverticulitis in the sigmoid colon, which may be acute or chronic in nature, given evidence of prior diverticulitis. Focus of extracolonic air in the region of inflammation may represent diverticular perforation with possible small abscess. Additionally, there is a concern for colovaginal fistula formation, given air within the adjacent left vaginal apex. Correlate with clinical history and speculum examination of the left vaginal apex for further evaluation. A contrast enema study may also be considered. 2. Adjacent left posterior urinary bladder wall thickening and mild retroperitoneal lymphadenopathy may be findings reactive to the inflammatory process. Review of Systems Constitutional Constitutional: Denies fatigue, Denies fever(s), Denies headache(s), Denies night sweats, Denies poor appetite and Denies weakness Eyes Eyes: Denies change in vision ENT Ears, Nose, Mouth, and Throat: Denies change in voice, Denies headache(s) and Denies hoarseness Cardiovascular Cardiovascular: Denies chest pain, Denies chest pain at rest, Denies irregular heart rhythm, Denies palpitations, Denies dyspnea and Denies dyspnea on exertion Respiratory Respiratory: Denies cough, Denies dyspnea and Denies dyspnea on exertion Gastrointestinal Gastrointestinal: Reports as per HPI Genitourinary Genitourinary: Reports as per HPI Musculoskeletal Musculoskeletal: Reports system reviewed and no additional complaints, except as documented Integumentary/Breasts Skin/Breast: Reports system reviewed and no additional complaints, except as documented Neurologic Neurologic: Reports system reviewed and no additional complaints, except as documented, Denies headache(s) and Denies weakness Psychiatric Psychiatric: Reports system reviewed and no additional complaints, except as documented Endocrine Endocrine: Reports system reviewed and no additional complaints, except as documented, Denies fatigue and Denies palpitations Hematologic/Lymphatic Hematologic/Lymphatic: Reports system reviewed and no additional complaints, except as documented [facility] Medical History (Updated 05/08/20 @ 19:49 by Dyan Barroso MD) Abnormal mammogram of right breast Allergic rhinitis Amyloidosis Antiphospholipid syndrome Asthma Chest wall pain Constipation as above Degenerative joint disease Diverticulitis of sigmoid colon chronic vs abx assoc colitis Eczema GERD (gastroesophageal reflux disease) stable Herniated nucleus pulposus, lumbar HTN (hypertension) Hyperlipidemia Hypocalcemia Insomnia Lupus Normal colonoscopy [place] 11/13/[address] Natalya Styles at [facility], severe diverticular dz, repeat 10 years. mg Pericarditis Sciatica, left side Surgical History H/O: hysterectomy History of bone marrow biopsy S/P thyroidectomy Tonsillectomy Social History Smoking/Tobacco Use Status: Former Tobacco Use Quit Date: 08/14/99 Alcohol Intake: current Alcohol Intake frequency: a few times a week Alcohol type: beer and wine Drug use: Never Substance use type: does not use Details: alcohol: t-7 Current gender identity: female Do you feel safe at home: Yes Do you feel safe in your relationship?: Yes Meds Home Medications and Allergies Home Medications Medication Instructions Recorded Confirmed Type simvastatin 20 mg PO DAILY 11/15/12 05/08/20 History hydroxychloroquine 200 mg PO DAILY #30 tab-cap 11/16/16 05/08/20 History levothyroxine 125 mcg PO HS tab-cap 05/25/17 05/08/20 History albuterol sulfate 90 mcg/actuation 2 puff INHALATION Q6H PRN inh 10/04/18 05/08/20 History aerosol inhaler loratadine 10 mg PO DAILY 10/28/18 05/08/20 History Flovent HFA 2 puff INHALATION BID PRN 07/05/19 05/08/20 History calcium carbonate [Oyster Shell 500 mg PO DAILY 07/05/19 05/08/20 History Calcium] losartan-hydrochlorothiazide 1 tab PO DAILY 07/05/19 05/08/20 History pramipexole 0.25 mg PO QHS 07/05/19 05/08/20 History acetaminophen 1,000 mg PO Q8H PRN #90 tab 07/17/19 05/08/20 Rx ibuprofen 600 mg PO Q8H PRN #60 tab 07/17/19 05/08/20 Rx amoxicillin-pot clavulanate 3 tab PO TID 05/08/20 05/08/20 History aspirin [Aspir-81] 81 mg PO DAILY 05/08/20 05/08/20 History Allergies Allergy/AdvReac Type Severity Reaction Status Date / Time oxycodone [From Percocet] AdvReac Intermediate Nausea Verified 05/08/20 15:04 Exam Const General: cooperative, comfortable and no acute distress Orientation: alert and oriented x3 HENMT Head: normocephalic and atraumatic Eyes Pupils: PERRL Resp Effort & Inspection: normal respiratory effort Auscultation: clear to auscultation bilaterally Cardio Rate: regular rate Rhythm: regular rhythm Heart Sounds: no gallops, no murmurs and no rubs GI Palpation: soft, no hepatosplenomegaly and tender (mild lower abdominal pain) Auscultation: normal bowel sounds Rectal Exam - female: deferred Results Labs Result diagrams: 05/08/20 15:15 05/08/20 15:15 Labs: Laboratory Results - last 24 hr 05/08/20 05/08/20 05/08/20 15:15 15:15 15:15 WBC 10.93 H RBC 5.01 Hgb 14.0 Hct 42.0 MCV 83.8 MCH 27.9 MCHC 33.3 RDW 13.3 Plt Count 326 MPV 9.1 Immature Gran % 0.3 Neutrophils % 84.4 Lymphocytes % 5.7 Monocytes % 7.3 Eosinophils % 2.0 Basophils % 0.3 Nucleated RBC % 0 Absolute Neutrophils 9.22 H Absolute Lymphocytes 0.62 L Absolute Monocytes 0.80 Absolute Eosinophils 0.22 Absolute Basophils 0.03 Sodium 140 Potassium 3.2 L Chloride 101 Carbon Dioxide 31.5 Anion Gap 7.5 BUN 17 Creatinine 0.98 Estimated GFR/1.73 m2 58.29 Glucose 92 Calcium 8.4 L Magnesium 2.1 Total Bilirubin 0.4 AST 19 ALT 22 Alkaline Phosphatase 103 Total Protein 7.0 Albumin 3.7 Urine Color Yellow Urine Clarity Clear Urine pH 7.0 Ur Specific [place] 1.015 Urine Protein Negative Urine Ketones Negative Urine Blood Trace-lysed H Urine Nitrite Negative Urine Bilirubin Negative Urine Urobilinogen 0.2 Ur Leukocyte Esterase Large H Urine RBC 0-2 Urine WBC 10-20 H Ur Epithelial Cells Few Urine Crystals Negative Urine Bacteria Moderate Urine Casts Negative Urine Mucus Negative Ur Culture Indicated? Yes Urine Glucose Negative 05/08/20 17:50 WBC RBC Hgb Hct MCV MCH MCHC RDW Plt Count MPV Immature Gran % Neutrophils % Lymphocytes % Monocytes % Eosinophils % Basophils % Nucleated RBC % Absolute Neutrophils Absolute Lymphocytes Absolute Monocytes Absolute Eosinophils Absolute Basophils Sodium Potassium Chloride Carbon Dioxide Anion Gap BUN Creatinine Estimated GFR/1.73 m2 Glucose Calcium Magnesium Total Bilirubin AST ALT Alkaline Phosphatase Total Protein Albumin Urine Color Yellow Urine Clarity Clear Urine pH 7.0 Ur Specific [place] 1.015 Urine Protein Negative Urine Ketones Negative Urine Blood Negative Urine Nitrite Negative Urine Bilirubin Negative Urine Urobilinogen 0.2 Ur Leukocyte Esterase Small H Urine RBC 0-2 Urine WBC 5-10 Ur Epithelial Cells Few Urine Crystals Negative Urine Bacteria Few Urine Casts Negative Urine Mucus Negative Ur Culture Indicated? Yes Urine Glucose Negative Last Vital Signs Temp 97.9 F 05/08/20 17:00 Pulse 70 05/08/20 17:00 Resp 20 05/08/20 17:00 BP 140/65 05/08/20 17:00 Pulse Ox 98 05/08/20 17:00 COVID-19 Screening Have you,or household,traveled outside [place] in last 14 days?: No Had IN PERSON contact w/suspected or confirmed C-19 person: No
[2020-05-08 20:15] VITALS: BP 150/88; PULSE 68; RESP 18; TEMP 36.2; O2SAT 98
[2020-05-08] MEDS: CIPROFLOXACIN 400 MG/200 ML BAG 200 MG IVPB (21:37)
[2020-05-08] MEDS: Normal Saline 1,000 ML 75 ML IV (21:38)
[2020-05-08] MEDS: Enoxaparin 40 MG/0.4 ML SYR SC (21:44)
[2020-05-08] MEDS: Pantoprazole 40 MG VIAL IVP (21:44)
[2020-05-08] MEDS: Ketorolac 15 MG/ML VIAL IVP (21:45)
[2020-05-08] MEDS: Pramipexole 0.25 MG TAB PO (21:47)
[2020-05-08] MEDS: Levothyroxine 125 MCG TAB PO (21:52)
[2020-05-08] MEDS: metroNIDAZOLE 500 MG/100 ML BAG 100 MG IVPB (21:52)
[2020-05-09] MEDS: Ketorolac 15 MG/ML VIAL IVP ×4 (01:30→20:04)
[2020-05-09] MEDS: Normal Saline Flush 10 ML SYR IVP ×4 (01:31→20:04)
[2020-05-09 03:35] VITALS: BP 111/65; PULSE 60; RESP 18; TEMP 36.9; O2SAT 95
[2020-05-09] MEDS: metroNIDAZOLE 500 MG/100 ML BAG 100 MG IVPB ×3 (06:22→22:44)
[2020-05-09 08:22] LABS: Abs Immature Grans 0.02 10^3/uL (0.0-0.06); Absolute Basophil Count 0.03 10^3/uL (0.0-0.2); Absolute Eosinophil Count 0.26 10^3/uL (0.0-0.7); Absolute Lymphocyte Count 0.35 10^3/uL (1.2-3.4); Absolute Monocyte Count 0.63 10^3/uL (0.1-0.8); Absolute Neutrophil Count 5.57 10^3/uL (1.2-6.7); Basophils % 0.4; Eosinophils % 3.8; HCT 39.5 % (36.0-46.0); Immature Grans % 0.3; Lymphocytes % 5.1; MCH 27.6 pg (27.0-33.0); MCHC 32.9 % (32.0-36.0); MCV 83.9 fL (80-95); MPV 9.6 fL (8.0-11.0); Monocytes % 9.2; Neutrophils % 81.2; Nucleated RBC 0 %; Platelet Count 265 10^3/uL (130-400); RBC 4.71 10^6/uL (3.93-5.22); RDW 13.2 % (11.7-14.6); RDW-SD 40.5 fL; WBC 6.86 10^3/uL (4.4-10.8)
[2020-05-09] MEDS: Mometasone 220 MCG 14 DOSE INHALER IH ×2 (08:22→20:04)
[2020-05-09 08:27] LABS: Anion Gap 10.4 mmol/L (3-11); BUN 12 mg/dL (7-18); CO2 25.6 mmol/L (21.0-32.0); CREATININE 0.91 mg/dL (0.55-1.02); Calcium 7.5 mg/dL (8.5-10.1); Chloride 104 mmol/L (98-107); Glucose 107 mg/dL (74-106); Potassium 3.3 mmol/L (3.5-5.1); Sodium 140 mmol/L (136-145)
[2020-05-09] MEDS: hydroCHLOROthiazide 12.5 MG TAB PO (09:16)
[2020-05-09] MEDS: Simvastatin 20 MG TAB PO (09:16)
[2020-05-09] MEDS: Losartan 50 MG TAB 100 MG PO (09:16)
[2020-05-09] MEDS: CIPROFLOXACIN 400 MG/200 ML BAG 200 MG IVPB ×2 (09:17→21:37)
[2020-05-09 09:40] VITALS: BP 115/46; PULSE 62; RESP 14; TEMP 36.9; O2SAT 95
--- NOTE | 2020-05-09 11:03 | W.PM.PROGNOT ---
Date of Service Date of service: 05/09/20 Time of Service: 11:03 Assessment and Plan Assessment and plan (1) Urinary tract infection: Status: Acute Assessment and plan: Await culture results and ABX sensitivity For now continue on Cipro and falgyl Qualifiers: Urinary tract infection type: acute cystitis Hematuria presence: without hematuria Qualified Code(s): N30.00 - Acute cystitis without hematuria (2) Colovaginal fistula: Status: Acute Assessment and plan: has had decreased discharge from the vagina Continue with IV fluids, IV antibiotics and clear liquids (3) Diverticulitis of sigmoid colon: Status: Acute Assessment and plan: Hopefully will be able to discharge to home on Monday and continue antibiotics for 14 days. Will need a CT scan with contrast enema in 6 to 8 weeks. May need surgery to remove the sigmoid colon and fix the vagina. (4) Antiphospholipid syndrome: Status: Chronic Assessment and plan: Had bleeding issues in the past when she was on coumadin. Was diagnosed with antiphospholipid syndrome and place on baby aspirin only. Stop Lovenox and continue on Baby aspirin Ambulation encouraged Subjective Subjective Interval history since last seen: Francie is doing well. Feels bloated and has some mild discomfort in the lower abdomen. No N/V. No BM today Exam Const General: comfortable and no acute distress [facility] Head: normocephalic and atraumatic Resp Effort & Inspection: normal respiratory effort Auscultation: clear to auscultation bilaterally Cardio Rate: regular rate Rhythm: regular rhythm Heart Sounds: no gallops, no murmurs and no rubs GI Inspection: normal to inspection Palpation: soft, no hepatosplenomegaly and tender (mild lower abdomen. No guarding or rebound) Auscultation: normal bowel sounds Objective Last Vital Signs Temp 98.4 F 05/09/20 09:40 Pulse 62 05/09/20 09:40 Resp 14 05/09/20 09:40 BP 115/46 L 05/09/20 09:40 Pulse Ox 95 05/09/20 09:40 Laboratory Results - last 24 hr 05/08/20 05/08/20 05/08/20 15:15 15:15 15:15 WBC 10.93 H RBC 5.01 Hgb 14.0 Hct 42.0 MCV 83.8 MCH 27.9 MCHC 33.3 RDW 13.3 Plt Count 326 MPV 9.1 Immature Gran % 0.3 Neutrophils % 84.4 Lymphocytes % 5.7 Monocytes % 7.3 Eosinophils % 2.0 Basophils % 0.3 Nucleated RBC % 0 Absolute Neutrophils 9.22 H Absolute Lymphocytes 0.62 L Absolute Monocytes 0.80 Absolute Eosinophils 0.22 Absolute Basophils 0.03 Sodium 140 Potassium 3.2 L Chloride 101 Carbon Dioxide 31.5 Anion Gap 7.5 BUN 17 Creatinine 0.98 Estimated GFR/1.73 m2 58.29 Glucose 92 Calcium 8.4 L Magnesium 2.1 Total Bilirubin 0.4 AST 19 ALT 22 Alkaline Phosphatase 103 Total Protein 7.0 Albumin 3.7 Urine Color Yellow Urine Clarity Clear Urine pH 7.0 Ur Specific Hamilton 1.015 Urine Protein Negative Urine Ketones Negative Urine Blood Trace-lysed H Urine Nitrite Negative Urine Bilirubin Negative Urine Urobilinogen 0.2 Ur Leukocyte Esterase Large H Urine RBC 0-2 Urine WBC 10-20 H Ur Epithelial Cells Few Urine Crystals Negative Urine Bacteria Moderate Urine Casts Negative Urine Mucus Negative Ur Culture Indicated? Yes Urine Glucose Negative 05/08/20 05/09/20 05/09/20 17:50 07:15 07:15 WBC 6.86 D RBC 4.71 Hgb 13.0 Hct 39.5 MCV 83.9 MCH 27.6 MCHC 32.9 RDW 13.2 Plt Count 265 MPV 9.6 Immature Gran % 0.3 Neutrophils % 81.2 Lymphocytes % 5.1 Monocytes % 9.2 Eosinophils % 3.8 Basophils % 0.4 Nucleated RBC % 0 Absolute Neutrophils 5.57 Absolute Lymphocytes 0.35 L Absolute Monocytes 0.63 Absolute Eosinophils 0.26 Absolute Basophils 0.03 Sodium 140 Potassium 3.3 L Chloride 104 Carbon Dioxide 25.6 Anion Gap 10.4 BUN 12 Creatinine 0.91 Estimated GFR/1.73 m2 >= 60.00 Glucose 107 H Calcium 7.5 L Magnesium Total Bilirubin AST ALT Alkaline Phosphatase Total Protein Albumin Urine Color Yellow Urine Clarity Clear Urine pH 7.0 Ur Specific Hamilton 1.015 Urine Protein Negative Urine Ketones Negative Urine Blood Negative Urine Nitrite Negative Urine Bilirubin Negative Urine Urobilinogen 0.2 Ur Leukocyte Esterase Small H Urine RBC 0-2 Urine WBC 5-10 Ur Epithelial Cells Few Urine Crystals Negative Urine Bacteria Few Urine Casts Negative Urine Mucus Negative Ur Culture Indicated? Yes Urine Glucose Negative
[2020-05-09 12:37] LABS: COVID-19 RT-PCR UVMMC Result Negative (Negative)
[2020-05-09 15:35] VITALS: BP 127/74; PULSE 60; RESP 17; TEMP 36.3; O2SAT 97
[2020-05-09] MEDS: POTASSIUM CHLORIDE/D5-0.45NACL 1,000 ML 30 MEQ IV (16:31)
[2020-05-09 19:20] VITALS: BP 125/75; PULSE 58; RESP 18; TEMP 36.8; O2SAT 98
[2020-05-09] MEDS: Pantoprazole 40 MG VIAL IVP (20:04)
--- NOTE | 2020-05-09 20:22 | INITIAL_ITS ---
- If Service Date Differs Time of Service: 20:22 Care Management Initial Assess REASON FOR HOSPITALIZATION:: Diverticulitis of sigmoid colon PAST MEDICAL HISTORY/PAST SURGICAL HISTORY:: Medical History (Updated 05/08/20 @ 19:49 by Dyan Barroso MD). Abnormal mammogram of right breast. Allergic rhinitis. Amyloidosis. Antiphospholipid syndrome. Asthma. Chest wall pain. Constipation. as above. Degenerative joint disease. Diverticulitis of sigmoid colon. chronic vs abx assoc colitis. Eczema. GERD (gastroesophageal reflux disease). stable. Herniated nucleus pulposus, lumbar. HTN (hypertension). Hyperlipidemia. Hypocalcemia. Insomnia. Lupus. Normal colonoscopy. [place] 11/13/[address] Natalya Styles at [facility], severe diverticular dz, repeat 10 years. mg. Pericarditis. Sciatica, left side. Surgical History . H/O: hysterectomy. History of bone marrow biopsy. S/P thyroidectomy. Tonsillectomy PREVIOUS FUNCTIONAL STATUS/SOCIAL/FAMILY SUPPORTS:: Francie lives in [place] with her significant other, Corby Doshi. She has a son who lives in [place] and who has a daughter but she is estranged from them. She has been disabled and unable to work for the past 3 years but is independent with ADLs. Francie does not currently receive any services at home. CURRENT FUNCTIONAL STATUS:: Francie was sitting on the side of the bed when CM met with her. She was open to conversaqtion and shared information freely. Francie stated that she has had other bouts of diverticulitis but this is the first time she has seen a surgeon for it. In addition to the diverticulitis, it has been determined that she has a colo-vaginal fistula. She stated that she has been told that hopefully this will resolve medically, but that surgery may be necessary. She shared that she is strongly opposed to having a colostomy if this becomes indicated. She shared that she has a close friend with an ostomy and she does not feel she could handle it. ADVANCE DIRECTIVES:: none on file but states she has them Has patient been provided with info about the portal/API?: Yes Did the patient sign up for the portal?: No CODE STATUS:: Full Code INSURANCE COVERAGE / FINANCIAL ISSUES:: Medicaid PRIMARY CARE PHYSICIAN:: Daniel Hinkle POTENTIAL DISCHARGE NEEDS:: folllow up with surgeon and PCP PATIENT/FAMILY EDUCATION NEEDS:: discharge plan, limitations, Ask Me Three TRANSPORTATION:: via private vehicle with Corby PLAN:: Francie will likely be discharged home on antibiotics with surgical follow up. She will transport with Corby via private vehicle. will continue to support Francie and her discharge planning concerns.
[2020-05-09] MEDS: Levothyroxine 125 MCG TAB PO (21:36)
[2020-05-09] MEDS: Pramipexole 0.25 MG TAB PO (21:36)
[2020-05-09] MEDS: Biotene Mouthwash 237 ML BTL MM (21:37)
[2020-05-09 23:50] VITALS: BP 122/73; PULSE 62; RESP 18; TEMP 36.8; O2SAT 96
[2020-05-10] MEDS: Ketorolac 15 MG/ML VIAL IVP ×2 (01:31→09:19)
[2020-05-10] MEDS: Potassium Chloride 20 MEQ TABCR 40 MEQ PO (01:31)
[2020-05-10] MEDS: Normal Saline Flush 10 ML SYR IVP ×3 (01:32→20:24)
[2020-05-10] MEDS: metroNIDAZOLE 500 MG/100 ML BAG 100 MG IVPB ×3 (06:15→23:07)
[2020-05-10 07:27] VITALS: BP 131/77; PULSE 63; RESP 16; TEMP 36.2; O2SAT 97
[2020-05-10] MEDS: Mometasone 220 MCG 14 DOSE INHALER IH ×2 (08:18→20:24)
[2020-05-10 08:46] LABS: Anion Gap 8.6 mmol/L (3-11); BUN 7 mg/dL (7-18); CO2 26.4 mmol/L (21.0-32.0); CREATININE 0.87 mg/dL (0.55-1.02); Calcium 7.5 mg/dL (8.5-10.1); Chloride 104 mmol/L (98-107); Glucose 110 mg/dL (74-106); Magnesium 2.2 mg/dL (1.8-2.4); Potassium 3.5 mmol/L (3.5-5.1); Sodium 139 mmol/L (136-145)
[2020-05-10] MEDS: Aspirin E.C. 81 MG TABEC PO (09:19)
[2020-05-10] MEDS: CIPROFLOXACIN 400 MG/200 ML BAG 200 MG IVPB (09:20)
[2020-05-10] MEDS: hydroCHLOROthiazide 12.5 MG TAB PO (09:20)
[2020-05-10] MEDS: Simvastatin 20 MG TAB PO (09:20)
[2020-05-10] MEDS: Losartan 50 MG TAB 100 MG PO (09:20)
--- NOTE | 2020-05-10 11:15 | CMPROGNOTE_ITS ---
- If Service Date Differs Date of service: 05/10/20 Time of Service: 11:15 Care Management Progress Note S/O:Francie was sitting up in bed when CM visited with her. Her male friend/roomate (not a romantic partner) had just left. She again talked about her fear of needing a colostomy and is praying every day that it won't be necessary. She shared that her roomate has one and she never wants to be like that. She was unable to clearly articulate what she feared the most about it but finally was able to identify body disfigurement, smell and leakage as three of her biggest concerns. CM spent some time with her and provided active listening and support. A: Francie is a 60 year old woman admitted on 05/08/20 with diverticulitis and a colovaginal fistula P: Francie will likely be discharged home on antibiotics with surgical follow up. She will transport with [email or web address] via private vehicle. will continue to support Francie and her discharge planning concerns.
--- NOTE | 2020-05-10 12:29 | PGE_ITS ---
Date of Service Date of service: 05/10/20 Time of Service: 12:29 Assessment and Plan Assessment and plan (1) Urinary tract infection: Status: Acute Assessment and plan: Await culture results and ABX sensitivity For now continue on Cipro and falgyl Qualifiers: Urinary tract infection type: acute cystitis Hematuria presence: without hematuria Qualified Code(s): N30.00 - Acute cystitis without hematuria (2) Colovaginal fistula: Status: Acute Assessment and plan: Had increase in discharge through the night. Patient is very anxious and scarred about having a colostomy. She keeps telling me that I would rather then have a colostomy. I discussed different scenarios with her. 1. Need for emergency surgery if she develops an acute abdomen or has increase in her WBC count despite antibiotics and has fevers. This would require a laparotomy and end colostomy 2. If she continues to be stable but we can't get the fistula to heal then I would recommend a loop colostomy for 3 months and then reverse it and do a sigmoid colectomy with anastamosis. 3. Other potential surgery would be a sigmoid colectomy with anastamosis and loop ileostomy but this would not be the best choice. For now I will advance her diet to low residual and monitor her WBCV count. (3) Diverticulitis of sigmoid colon: Status: Acute Assessment and plan: Hopefully will be able to discharge to home on Monday and continue antibiotics for 14 days. Will need a CT scan with contrast enema in 6 to 8 weeks. May need surgery to remove the sigmoid colon and fix the vagina. (4) Antiphospholipid syndrome: Status: Chronic Assessment and plan: Had bleeding issues in the past when she was on coumadin. Was diagnosed with antiphospholipid syndrome and place on baby aspirin only. Stop Lovenox and continue on Baby aspirin Ambulation encouraged (5) Lupus: Status: Chronic Assessment and plan: Will start patient back on her plaquenil Qualifiers: Lupus erythematosus form: unspecified Qualified Code(s): L93.0 - Discoid lupus erythematosus (6) Nasal congestion: Status: Acute Assessment and plan: Will restart her loratidine and have her do a saline nasal spray as well. Subjective Subjective Interval history since last seen: Francie is quite anxious today. She had a lot of stool come through her vagina last night. She is scarred that she will need surgery and have a colostomy. I would rather then have a colostomy. She has been afebrile, feels bloated but really hasn't had much pain. She also complains of post-nasal drip which is causing her to cough Exam Const General: cooperative, comfortable and no acute distress Orientation: alert and oriented x3 HENMT Head: normocephalic and atraumatic Resp Effort & Inspection: normal respiratory effort Auscultation: clear to auscultation bilaterally Cardio Rate: regular rate Rhythm: regular rhythm Heart Sounds: no gallops, no murmurs and no rubs GI Palpation: soft, no hepatosplenomegaly and nontender Auscultation: normal bowel sounds Objective Last Vital Signs Temp 97.2 F L 05/10/20 07:27 Pulse 63 05/10/20 07:27 Resp 16 05/10/20 07:27 BP 131/77 05/10/20 07:27 Pulse Ox 97 05/10/20 07:27 Laboratory Results - last 24 hr 05/08/20 05/10/20 19:40 08:04 Sodium 139 Potassium 3.5 Chloride 104 Carbon Dioxide 26.4 Anion Gap 8.6 BUN 7 Creatinine 0.87 Estimated GFR/1.73 m2 >= 60.00 Glucose 110 H Calcium 7.5 L Magnesium 2.2 COVID-19 PCR Negative Nasopharyn COVID-19 PCR Not Applicable Ref Test Perform Site [facility] lab
--- NOTE | 2020-05-10 14:44 | PHA.REVIEW ---
Pharmacy Admission Review - Admission Clinical Review (Last Reviewed 05/08/20 @ 19:44 by Dyan Barroso MD) Urinary tract infection (Acute) Colovaginal fistula (Acute) Diverticulitis of sigmoid colon (Acute) Nasal congestion (Acute 06/19/14) oxycodone [From Percocet] Adverse Reaction (Intermediate, Verified 05/08/20 15:04) Nausea Height 5 ft 4 in Weight 90.6 kg - Renal Dosing Renal Dosing: BUN 7 mg/dL (7-18) 05/10/20 08:04 Creatinine 0.87 mg/dL (0.55-1.02) 05/10/20 08:04 - Anticoagulation Anticoagulation: Hgb 13.0 g/dL (11.2-15.7) 05/09/20 07:15 Hct 39.5 % (36.0-46.0) 05/09/20 07:15 Plt Count 265 10^3/uL (130-400) 05/09/20 07:15 Creatinine 0.87 mg/dL (0.55-1.02) 05/10/20 08:04 - Relevant Labs Sodium 139 mmol/L (136-145) 05/10/20 08:04 Potassium 3.5 mmol/L (3.5-5.1) 05/10/20 08:04 Chloride 104 mmol/L (98-107) 05/10/20 08:04 Magnesium 2.2 mg/dL (1.8-2.4) 05/10/20 08:04 - DM Control DM Control: Glucose 110 mg/dL (74-106) H 05/10/20 08:04 - BP Control BP Control: Blood Pressure 131/77 Antibiotic Activity - Pharmacy Antibiotic Review Pharmacy Antibiotic Activity: Abx regimen adjustment (IV cipro changed to IV cefuroxime with md permission due to potential interaction of cipro with hydroxyqhloroquine causing QTc prolongation)
[2020-05-10 15:33] VITALS: BP 123/72; PULSE 59; RESP 19; TEMP 36.5; O2SAT 100
[2020-05-10 19:30] VITALS: BP 133/77; PULSE 60; RESP 18; TEMP 36.6; O2SAT 98
[2020-05-10] MEDS: Pantoprazole 40 MG VIAL IVP (20:24)
[2020-05-10] MEDS: Pramipexole 0.25 MG TAB PO (22:20)
[2020-05-10] MEDS: Biotene Mouthwash 237 ML BTL MM (22:20)
[2020-05-10] MEDS: Levothyroxine 125 MCG TAB PO (22:21)
[2020-05-10 23:30] VITALS: BP 126/73; PULSE 62; RESP 17; TEMP 36.3; O2SAT 98
[2020-05-11] MEDS: metroNIDAZOLE 500 MG/100 ML BAG 100 MG IVPB (06:14)
[2020-05-11] MEDS: Mometasone 220 MCG 14 DOSE INHALER IH ×2 (07:34→20:30)
[2020-05-11 07:35] LABS: Abs Immature Grans 0.02 10^3/uL (0.0-0.06); Absolute Basophil Count 0.03 10^3/uL (0.0-0.2); Absolute Eosinophil Count 0.24 10^3/uL (0.0-0.7); Absolute Monocyte Count 0.57 10^3/uL (0.1-0.8); Absolute Neutrophil Count 5.25 10^3/uL (1.2-6.7); Basophils % 0.5; Eosinophils % 3.6; HCT 38.5 % (36.0-46.0); HGB 13.2 g/dL (11.2-15.7); Immature Grans % 0.3; Lymphocytes % 7.6; MCH 28.6 pg (27.0-33.0); MCHC 34.3 % (32.0-36.0); MCV 83.5 fL (80-95); MPV 9.6 fL (8.0-11.0); Monocytes % 8.6; Neutrophils % 79.4; Nucleated RBC 0 %; Platelet Count 260 10^3/uL (130-400); RBC 4.61 10^6/uL (3.93-5.22); RDW 13.3 % (11.7-14.6); RDW-SD 40.7 fL; WBC 6.61 10^3/uL (4.4-10.8)
[2020-05-11 07:41] VITALS: BP 131/75; PULSE 60; RESP 19; TEMP 36.6; O2SAT 97
[2020-05-11 07:57] LABS: Anion Gap 7.4 mmol/L (3-11); BUN 6 mg/dL (7-18); CO2 26.6 mmol/L (21.0-32.0); Calcium 7.9 mg/dL (8.5-10.1); Chloride 105 mmol/L (98-107); Glucose 105 mg/dL (74-106); Potassium 3.6 mmol/L (3.5-5.1); Sodium 139 mmol/L (136-145)
[2020-05-11 07:58] LABS: Magnesium 2.1 mg/dL (1.8-2.4)
[2020-05-11] MEDS: Loratidine 10 MG TAB PO (08:13)
[2020-05-11] MEDS: hydroCHLOROthiazide 12.5 MG TAB PO (08:13)
[2020-05-11] MEDS: Hydroxychloroquine 200 MG TAB PO (08:13)
[2020-05-11] MEDS: Aspirin E.C. 81 MG TABEC PO (08:14)
[2020-05-11] MEDS: Simvastatin 20 MG TAB PO (08:14)
[2020-05-11] MEDS: Normal Saline Flush 10 ML SYR IVP (08:14)
[2020-05-11] MEDS: Losartan 50 MG TAB 100 MG PO (08:14)
[2020-05-11] MEDS: Ketorolac 15 MG/ML VIAL IVP (08:14)
--- NOTE | 2020-05-11 08:25 | CMPROGNOTE_ITS ---
- If Service Date Differs Date of service: 05/11/20 Time of Service: 08:25 Care Management Progress Note S/O:Francie was sitting up in bed when CM visited with her. She shared that she had a better night last night with no episodes of vaginal leaking like the night before. She was smiling and appeared more relaxed. She was pleased that her diet has been advanced, hoping it will help her to have more formed stools. Her pain is well controlled. A: Francie is a 60 year old woman admitted on 05/08/20 with diverticulitis and a colovaginal fistula P: Francie will likely be discharged home on antibiotics with surgical follow up. She will transport with [employer] via private vehicle. will continue to support Francie and her discharge planning concerns.
[2020-05-11 08:32] VITALS: TEMP 36.6; O2SAT 97
[2020-05-11] MEDS: POTASSIUM CHLORIDE/D5-0.45NACL 1,000 ML 30 MEQ IV (12:46)
--- NOTE | 2020-05-11 14:41 | W.NUTCONSULT ---
Date of service: 05/11/20 Time of Service: 14:41 Nutritional Consult ASSESSMENT: 60 year old female admitted with UTI, diverticulitis with colovaginal fistula. Following fiber restricted diet with adequate intake to meet nutrient and fluid needs. Estimated Needs: [id number], 68-78 g protein. Following fiber restricted diet without issue. BMI indicates obesity. INTERVENTION: Provided written and verbal education on diet and diverticulitis, diverticulosis. Pt familiar with how to progress diet as had diverticulitis previously. Provided contact information if needs education after discharge. MONITORING AND EVALUATION: diet tolerance, weight, po intake Time Spent in Nutritional Counseling and Treatment: 15 min spent face to face
--- NOTE | 2020-05-11 15:30 | CHAPLAIN ---
Francie said she has been praying that she will not need a colostomy and was waiting to meet with Dr. Barroso to talk about that today. Francie said she had dealt with enough in my life, I don't need this. Although she has a friend who has a colostomy bag, Francie said she is fearful of having one herself. I left when Dr. Barroso arrived, but will visit again.
[2020-05-11 15:46] VITALS: BP 152/90; PULSE 63; RESP 16; TEMP 37.1; O2SAT 99
[2020-05-11] MEDS: metroNIDAZOLE 500 MG TAB PO ×2 (16:25→23:43)
[2020-05-11] MEDS: Pramipexole 0.25 MG TAB PO (20:27)
[2020-05-11] MEDS: Levothyroxine 125 MCG TAB PO (20:28)
[2020-05-11] MEDS: Cefuroxime 500 MG TAB PO (20:28)
[2020-05-11] MEDS: Biotene Mouthwash 237 ML BTL MM (20:31)
[2020-05-11] MEDS: Simethicone 80 MG CHEW PO (20:57)
[2020-05-12 00:28] VITALS: BP 123/75; PULSE 63; RESP 17; TEMP 36.3; O2SAT 96
[2020-05-12] MEDS: Biotene Mouthwash 237 ML BTL MM (02:24)
--- NOTE | 2020-05-12 07:14 | PGE_ITS ---
Date of Service Date of service: 05/11/20 Time of Service: 13:30 Assessment and Plan Assessment and plan (1) Urinary tract infection: Status: Acute Assessment and plan: Cultures show <10,000 colonies. I suspect this is contamination from the stool in her vagina Continue cefuroxime and Flagyl Qualifiers: Urinary tract infection type: acute cystitis Hematuria presence: without hematuria Qualified Code(s): N30.00 - Acute cystitis without hematuria (2) Colovaginal fistula: Status: Acute Assessment and plan: Had increase in discharge through the night. Patient is very anxious and scarred about having a colostomy. She keeps telling me that I would rather then have a colostomy. I discussed different scenarios with her. 1. Need for emergency surgery if she develops an acute abdomen or has increase in her WBC count despite antibiotics and has fevers. This would require a laparotomy and end colostomy 2. If she continues to be stable but we can't get the fistula to heal then I would recommend a loop colostomy for 3 months and then reverse it and do a sigmoid colectomy with anastamosis. 3. Other potential surgery would be a sigmoid colectomy with anastamosis and loop ileostomy but this would not be the best choice. She has tolerated a low residual diet. Discussed discharge to home tomorrow on po antibiotics. Will see her every 2 weeks with labs Repeat CT scan with Iv, oral and rectal contrast in 6 weeks as long as she contiinues to not have a WBC count and no fevers (3) Diverticulitis of sigmoid colon: Status: Acute Assessment and plan: Hopefully will be able to discharge to home on Monday and continue antibiotics for 14 days. Will need a CT scan with contrast enema in 6 to 8 weeks. May need surgery to remove the sigmoid colon and fix the vagina. (4) Antiphospholipid syndrome: Status: Chronic Assessment and plan: Had bleeding issues in the past when she was on coumadin. Was diagnosed with antiphospholipid syndrome and place on baby aspirin only. Stop Lovenox and continue on Baby aspirin Ambulation encouraged (5) Lupus: Status: Chronic Assessment and plan: Will start patient back on her plaquenil Qualifiers: Lupus erythematosus form: unspecified Qualified Code(s): L93.0 - Discoid lupus erythematosus (6) Nasal congestion: Status: Acute Assessment and plan: Will restart her loratidine and have her do a saline nasal spray as well. Subjective Subjective Interval history since last seen: Mrs Yuusf is doing OK. She is stooling from both the rectum and the vagina. She denies fevers or chills. She has not had any increase in her abdominal pain. Feels bloated Exam [facility] Head: normocephalic and atraumatic Resp Effort & Inspection: normal respiratory effort Auscultation: clear to auscultation bilaterally Cardio Rate: regular rate Rhythm: regular rhythm GI Inspection: normal to inspection Palpation: soft, no hepatosplenomegaly and nontender Auscultation: normal bowel sounds Objective Last Vital Signs Temp 97.3 F L 05/12/20 00:28 Pulse 63 05/12/20 00:28 Resp 17 05/12/20 00:28 BP 123/75 05/12/20 00:28 Pulse Ox 96 05/12/20 00:28 Laboratory Results - last 24 hr 05/11/20 05/11/20 05/11/20 07:06 07:06 07:06 WBC 6.61 RBC 4.61 Hgb 13.2 Hct 38.5 MCV 83.5 MCH 28.6 MCHC 34.3 RDW 13.3 Plt Count 260 MPV 9.6 Immature Gran % 0.3 Neutrophils % 79.4 Lymphocytes % 7.6 Monocytes % 8.6 Eosinophils % 3.6 Basophils % 0.5 Nucleated RBC % 0 Absolute Neutrophils 5.25 Absolute Lymphocytes 0.50 L Absolute Monocytes 0.57 Absolute Eosinophils 0.24 Absolute Basophils 0.03 Sodium 139 Potassium 3.6 Chloride 105 Carbon Dioxide 26.6 Anion Gap 7.4 BUN 6 L Creatinine 0.90 Estimated GFR/1.73 m2 >= 60.00 Glucose 105 Calcium 7.9 L Magnesium 2.1
[2020-05-12 07:38] VITALS: BP 133/79; PULSE 62; RESP 18; TEMP 36.2; O2SAT 95
[2020-05-12] MEDS: Loratidine 10 MG TAB PO (08:32)
[2020-05-12] MEDS: Cefuroxime 500 MG TAB PO (08:32)
[2020-05-12] MEDS: hydroCHLOROthiazide 12.5 MG TAB PO (08:32)
[2020-05-12] MEDS: Aspirin E.C. 81 MG TABEC PO (08:33)
[2020-05-12] MEDS: Hydroxychloroquine 200 MG TAB PO (08:33)
[2020-05-12] MEDS: Losartan 50 MG TAB 100 MG PO (08:33)
[2020-05-12] MEDS: metroNIDAZOLE 500 MG TAB PO (08:33)
[2020-05-12] MEDS: Simvastatin 20 MG TAB PO (08:33)
[2020-05-12] MEDS: Simethicone 80 MG CHEW PO (08:44)
[2020-05-12] MEDS: Mometasone 220 MCG 14 DOSE INHALER IH (09:45)
--- NOTE | 2020-05-12 10:22 | W.PM.DS.N ---
Date of service: 05/12/20 Time of Service: 10:22 DS: Diagnosis Discharge Diagnosis (1) Urinary tract infection: Status: Acute (2) Colovaginal fistula: Status: Acute (3) Diverticulitis of sigmoid colon: Status: Acute (4) Antiphospholipid syndrome: Status: Chronic (5) Lupus: Status: Chronic (6) Nasal congestion: Status: Acute Discharge Plan Disposition Patient Disposition: HOME Condition: Improving Discharge Details Reason For Visit: DIVERTICULITIS WITH COLOVAGINAL FISTULA Admit Date/Time: 05/08/20 19:33 Admit Provider: Dyan Barroso Attending Provider: Dyan Barroso [facility]: 60 y/o female was admitted on 05/08 for treatment of diverticulitis and colovaginal fistula and UTI. She was treated with IV antibiotics. Her stooling frequency decreased decreased following antibiotics. Will continue antibiotic treatment with cefuroxime and flagyl for another 10 days. She will need to continue to follow a low fiber diet. She will need to follow up in the office with Dr. Barroso in 2 weeks and will need to have labs drawn prior to her visit (CBC-D and BMP) Home Meds and New Rx's Prescriptions: New cefuroxime axetil 500 mg Tablet 500 mg PO BID 10 Days Qty: 20 RF: 0 metronidazole 500 mg Tablet 500 mg PO Q8H 10 Days Qty: 30 RF: 0 Continued albuterol sulfate [ProAir HFA] 90 mcg/actuation HFA aerosol inhaler 2 puff Inhalation Q6H PRN (Reason: shortness of breath) RF: 0 hydroxychloroquine 200 MG tablet 200 mg PO DAILY Qty: 30 RF: 11 levothyroxine 125 MCG tablet 125 mcg PO HS RF: 0 simvastatin 20 MG tablet 20 mg PO DAILY RF: 0 loratadine 10 mg Capsule 10 mg PO DAILY RF: 0 calcium carbonate [Oyster Shell Calcium] 500 mg calcium (1,250 mg) Tablet 500 mg PO DAILY RF: 0 losartan-hydrochlorothiazide 100-12.5 mg Tablet 1 tab PO DAILY RF: 0 pramipexole 0.25 mg Tablet 0.25 mg PO QHS RF: 0 Flovent HFA 110 mcg/actuation Hfa Aerosol Inhaler 2 puff INHALATION BID PRNRF: 0 acetaminophen 500 mg tablet 1,000 mg PO Q8H PRN (Reason: pain) Qty: 90 RF: 3 ibuprofen 600 mg tablet 600 mg PO Q8H PRN (Reason: pain) Qty: 60 RF: 3 aspirin 81 mg Tablet,Delayed Release (Dr/Ec) 81 mg PO DAILY RF: 0 Discontinued amoxicillin-pot clavulanate 875-125 mg tablet 3 tab PO TID RF: 0 Discharge Instructions Instructions: Low Fiber Diet (DC), Low Fiber Diet (GEN) Additional Instructions: Follow up with Dr. Barroso in 2 weeks. Will need to have labs drawn prior to her appointment that day. (CBC-D and BMP) Patient is to call the surgical office, her PCP or return to the ER if her symptoms return, worsen or if she has fevers, chills or night sweats. Stand Alone Forms: Nursing Discharge Form Referrals: Dyan Barroso MD [ [facility] STAFF PHYSICIAN] - 05/26/20 8:30 am Activity:: Activity as Tolerated Equipment/Supplies:: No Equipment Needed Diet:: Low Fiber Diet Discharge Orders Discharge Orders: Discharge Order (Routine); Ordered 05/12/20 Ordered By: Muna Torres Discharge Data Discharge Date/Time-TO BE ENTERED AT DEPARTURE: 05/12/20 11:29 DS: Summary Status at Discharge Functional status at discharge: independent ambulation Overall status at discharge: patient is back to baseline Mental Status: mental status grossly normal Speech and Movement: speech and movement normal Mood: congruent mood Affect: normal affect Exam Const General: cooperative, healthy appearing and comfortable Orientation: alert and oriented x3 Resp Effort & Inspection: normal respiratory effort, no audible wheezes and no cough GI Palpation: soft, no guarding and nontender Psych Mental Status: mental status grossly normal Speech and Movement: speech and movement normal Mood: congruent mood Affect: normal affect DS: Data Vitals/I&O Vitals and I&O: Vital Signs Temperature 36.2 C L 05/12/20 07:38 Temperature Source Tympanic 05/12/20 07:38 Pulse 62 05/12/20 07:38 Pulse Rhythm Regular 05/12/20 05:14 Respiratory Rate 18 05/12/20 07:38 Respiratory Effort Non-Labored 05/12/20 05:14 Respiratory Depth Normal 05/12/20 05:14 Respiratory Pattern Normal 09/29/20 05:14 Blood Pressure 133/79 05/12/20 07:38 Blood Pressure Position Sitting 05/08/20 14:57 Pulse Oximetry 95 05/12/20 07:38 Oxygen Delivery Method Room Air 05/12/20 07:38 Oxygen Flow Rate 0 05/12/20 07:38 Pain Level 2 05/12/20 07:38 Comment 05/08/20 20:15 Intake & Output 05/11/20 05/12/20 05/12/20 18:59 06:59 18:59 Intake Total 1520 / 1520 480 / 480 Balance 1520 / 1520 480 / 480 Intake: IV 200 / 200 Oral 1320 / 1320 480 / 480 Other: Urine Color Pale Yellow Urine Appearance Clear Clear Urine Odor None Comment Patient reports voiding normally and frequently in toilet independently. Stool Size Small Stool Characteristics Soft Voiding Methods Toilet [facility] Medical History (Updated 05/10/20 @ 12:38 by Dyan Barroso MD) Abnormal mammogram of right breast Allergic rhinitis Amyloidosis Antiphospholipid syndrome Asthma Chest wall pain Constipation as above Degenerative joint disease Diverticulitis of sigmoid colon chronic vs abx assoc colitis Eczema GERD (gastroesophageal reflux disease) stable Herniated nucleus pulposus, lumbar HTN (hypertension) Hyperlipidemia Hypocalcemia Insomnia Lupus Normal colonoscopy [place] 11/13/[address] Natalya Styles at [facility], severe diverticular dz, repeat 10 years. mg Pericarditis Sciatica, left side Surgical History H/O: hysterectomy History of bone marrow biopsy S/P thyroidectomy Tonsillectomy Social History Smoking/Tobacco Use Status: Former Tobacco Use Quit Date: 08/14/99 Alcohol Intake: current Alcohol Intake frequency: a few times a week Alcohol type: beer and wine Drug use: Never Substance use type: does not use Details: alcohol: t-7 Current gender identity: female Do you feel safe at home: Yes Do you feel safe in your relationship?: Yes
--- NOTE | 2020-05-12 14:46 | CHAPLAIN ---
Today when I visited Francie, she was dressed and ready to be discharged home. Yesterday she was anxiously waiting to hear if she'd need a colostomy. Dr. Barroso has since but on diet restrictions and hope she will heal and avoid having a colostomy. Francie seemed relieved to be involved in a conservative approach.
--- NOTE | 2020-05-12 16:26 | PDOC.CMDIS ---
- If Service Date Differs Date of service: 05/12/20 Time of Service: 13:00 LACE Index Scoring Tool - Questions: Length of Stay (in days): 4 - 6 Acuity (Admit via E.D.?): Yes Care Management Discharge Reason for Hospitalization: Diverticulitis of sigmoid colon Discharge Plan: Francie is being discharged home today. CM contacted [facility] and confirmed prescription coverage for antibioitcs. No other discharge needs Francie will follow up with primary care provider. Patient/Family Education Needs: Discharge instruction, limitations and follow up plan of care.
--- NOTE | 2020-05-13 12:15 | W.PM.PROGNOT ---
Date of Service Date of service: 05/12/20 Time of Service: 08:00 Assessment and Plan Assessment and plan (1) Urinary tract infection: Status: Acute Assessment and plan: Cultures show <10,000 colonies. I suspect this is contamination from the stool in her vagina Continue cefuroxime and Flagyl Qualifiers: Urinary tract infection type: acute cystitis Hematuria presence: without hematuria Qualified Code(s): N30.00 - Acute cystitis without hematuria (2) Colovaginal fistula: Status: Acute Assessment and plan: Denies noting any vaginal discharge last evening or today. Upon d/c will schedule 2 week follow up in the office. (3) Diverticulitis of sigmoid colon: Status: Acute Assessment and plan: Continue antibiotics. Denies pain or discomfort (4) Antiphospholipid syndrome: Status: Chronic (5) Lupus: Status: Chronic Assessment and plan: Will start patient back on her plaquenil Qualifiers: Lupus erythematosus form: unspecified Qualified Code(s): L93.0 - Discoid lupus erythematosus (6) Nasal congestion: Status: Acute Assessment and plan: Will restart her loratidine and have her do a saline nasal spray as well. Subjective Subjective Interval history since last seen: Patient reports that she is feeling better this morning. (+) BM which she describes came from her rectum. States that she has not noted any stool discharge from her vagina. Exam Const General: cooperative, healthy appearing and comfortable Orientation: alert and oriented x3 Resp Effort & Inspection: normal respiratory effort, no audible wheezes and no cough Objective Last Vital Signs Temp 36.2 C L 05/12/20 07:38 Pulse 62 05/12/20 07:38 Resp 18 05/12/20 07:38 BP 133/79 05/12/20 07:38 Pulse Ox 95 05/12/20 07:38
== END 2020-05-12 11:29 | disposition home or self-care (01) | DRG 690 ==
LOC: ER 19:49 → MS 20:36
PROVIDERS: Admitting Provider Surgery; Emergency Provider Nurse Practitioner Acute Care; PCP Family Medicine; Visit Provider Surgery
DX: N30.00 Acute cystitis without hematuria (principal); N82.3 Fistula of vagina to large intestine; K57.32 Diverticulitis of large intestine without perforation or abscess without bleeding; D68.61 Antiphospholipid syndrome; E85.9 Amyloidosis, unspecified; J45.909 Unspecified asthma, uncomplicated; K59.00 Constipation, unspecified; K21.9 Gastro-esophageal reflux disease without esophagitis; M51.26 Other intervertebral disc displacement, lumbar region; I10 Essential (primary) hypertension; E78.5 Hyperlipidemia, unspecified; G47.00 Insomnia, unspecified; L30.9 Dermatitis, unspecified; M54.32 Sciatica, left side; E83.51 Hypocalcemia; Z87.891 Personal history of nicotine dependence; L93.0 Discoid lupus erythematosus
CPT/HCPCS: 36415; 80048; 80053; 94640; 96361; 96365; 99223; 99232; 99233; 99238; 99285; J1650; U0003; 74177; 81003; 81015; 83735; 85025; 87086; 99284; J0696; J0697; J0744; J1885; J3490

== ENCOUNTER 2020-05-26 07:19 | Outpatient (CLI) | payer MEDICAID, SELFPAY ==
[2020-05-26 07:28] LABS: Abs Immature Grans 0.01 10^3/uL (0.0-0.06); Absolute Basophil Count 0.05 10^3/uL (0.0-0.2); Absolute Eosinophil Count 0.36 10^3/uL (0.0-0.7); Absolute Lymphocyte Count 0.75 10^3/uL (1.2-3.4); Absolute Monocyte Count 0.61 10^3/uL (0.1-0.8); Absolute Neutrophil Count 4.71 10^3/uL (1.2-6.7); Basophils % 0.8; Eosinophils % 5.5; HCT 40.9 % (36.0-46.0); HGB 13.8 g/dL (11.2-15.7); Immature Grans % 0.2; Lymphocytes % 11.6; MCH 28.2 pg (27.0-33.0); MCHC 33.7 % (32.0-36.0); MCV 83.6 fL (80-95); MPV 9.1 fL (8.0-11.0); Monocytes % 9.4; Neutrophils % 72.5; Nucleated RBC 0 %; Platelet Count 302 10^3/uL (130-400); RBC 4.89 10^6/uL (3.93-5.22); RDW 13.4 % (11.7-14.6); RDW-SD 41.1 fL; WBC 6.49 10^3/uL (4.4-10.8)
[2020-05-26 07:32] LABS: BUN 10 mg/dL (7-18); CREATININE 0.85 mg/dL (0.55-1.02); Calcium 7.9 mg/dL (8.5-10.1); Chloride 103 mmol/L (98-107); Glucose 104 mg/dL (74-106); Potassium 3.9 mmol/L (3.5-5.1); Sodium 140 mmol/L (136-145)
== END 2020-05-26 07:39 ==
PROVIDERS: PCP Family Medicine; Visit Provider Surgery
DX: N82.4 Other female intestinal-genital tract fistulae (principal); I10 Essential (primary) hypertension
CPT/HCPCS: 36415; 80048; 85025

== ENCOUNTER 2020-06-26 03:32 | Outpatient (CLI) | payer MEDICAID, SELFPAY ==
--- NOTE | 2020-06-26 07:00 | DI.CT_ITS ---
EXAM: CT ABDOMEN PELVIS W CLINICAL HISTORY: ? closure of fistula,N82.5 TECHNIQUE: Imaging Protocol: Axial computed tomography images with coronal and sagittal reformatted images were created and reviewed CONTRAST MATERIAL: Intravenous: Omnipaque 350 Contrast volume:100 mL Oral: Yes Rectal: Yes COMPARISON: CT CT ABDOMEN PELVIS W from 05/08/2020 FINDINGS: ABDOMEN: Lung Bases: Dependent atelectasis. Liver: Normal density. Tiny hypodensities are again seen in the liver. They are too small for furthe r characterization but likely reflect small cysts. Portal, Superior Mesenteric, and Splenic Veins: Unremarkable. Gallbladder and Biliary Tract: No gallstones. Stable appearance of the bile ducts. Pancreas: Normal density, no abnormal calcifications or inflammatory process. Spleen: Normal. Adrenals: No masses seen. Kidneys: Normal size, contour and axis. No radiodense stones or obstructive uropathy. No masses seen. Abdominal Aorta: Abdominal portion non-dilated. Atherosclerosis. Bowel: No obstruction or bowel wall thickening. Appendix is unremarkable. Colonic diverticulosis. Th is is predominantly in the sigmoid colon. There is persistent soft tissue connecting the sigmoid wit h the adjacent vagina and urinary bladder. No air or contrast is seen within this soft tissue. No d efinite fistula is seen. No abscess is present. Peritoneal Cavity: No ascites, collection or mesenteric inflammatory response. Lymph Nodes: Stable enlarged left external iliac lymph node. Bones: Degenerative changes. Soft Tissues: Unremarkable. PELVIS: Bladder: Please see the above section on the bowel. Reproductive Organs: Status post hysterectomy. Please see the above section on the bowel. Lymph Nodes: Stable enlarged left external iliac lymph node. Bones: Degenerative changes. IMPRESSION: 1. Soft tissues again seen interspersed posed between the sigmoid colon, vaginal cuff and urinary trevon dder. No air or contrast is seen to suggest communication. No abscess is appreciated. RADIATION DOSE DELIVERED: 1,022.28mGy.cm Total DLP DATA REPOSITORY: All CT scans at this facility are submitted to the National Radiology Data Registry (NRDR) Dose Index Registry (DIR) with the [employer] (A[employer]). RADIATION OPTIMIZATION: All CT scans at this facility use at least one of these dose optimization te chniques: automated exposure control; mA and/or kV adjustment per patient size (includes targeted exa ms where dose is matched to clinical indication); or iterative reconstruction.
[2020-06-26] MEDS: Breeza Beverage 473 ML BTL PO ×2 (08:30→08:32)
[2020-06-26] MEDS: Omnipaque 350 MG/ML 50 ML BTL PO (08:31)
[2020-06-26] MEDS: Omnipaque 350 MG/ML 100 ML BTL IV (11:08)
[2020-06-26] MEDS: Normal Saline - Diluent 50 ML VIAL IV (11:11)
== END 2020-06-26 03:52 ==
PROVIDERS: PCP Family Medicine; Visit Provider Surgery
DX: N82.5 Female genital tract-skin fistulae (principal)
CPT/HCPCS: 74177; J3490; Q9967

== ENCOUNTER 2020-07-17 10:34 | Outpatient (CLI) | payer MEDICAID, SELFPAY ==
--- NOTE | 2020-07-17 09:45 | DI.RAD_ITS ---
EXAM: XR KNEE RT 2V AP,LAT INDICATION: annual f/u R TKA. COMPARISON: CR,DX XR KneeStanding Alignment from 04/24/2019 CR XR STANDING ALIGNMENT from 08/01/2019 CR XR KNEE RT 1V from 08/01/2019 TECHNIQUE: 2D digital imaging was performed. FINDINGS: There has been no change in the alignment of the total knee prosthesis. No abnormal bony lucencies a re seen. Calcifications are again noted in the posterior soft tissues of the upper calf. Impression: No acute abnormality. DATA REPOSITORY: RADIATION DOSE DELIVERED:
== END 2020-07-17 10:54 ==
PROVIDERS: PCP Family Medicine; Referring Provider Family Medicine; Visit Provider Student in an Organized Health Care Education/Training Program
DX: Z96.651 Presence of right artificial knee joint (principal)
CPT/HCPCS: 73560

== ENCOUNTER 2020-09-07 16:54 | Outpatient (REF) | payer MEDICAID, SELFPAY ==
[2020-09-07 15:04] LABS: ALT 32 U/L (14-59); AST 25 U/L (15-37); Albumin 3.8 g/dL (3.4-5.0); Alkaline Phosphatase 105 U/L (46-116); Anion Gap 9.3 mmol/L (3-11); BUN 15 mg/dL (7-18); Bilirubin, Total 0.3 mg/dL (0.2-1.0); CO2 27.7 mmol/L (21.0-32.0); CREATININE 0.78 mg/dL (0.55-1.02); Calcium 8.1 mg/dL (8.5-10.1); Chloride 103 mmol/L (98-107); Glucose 93 mg/dL (74-106); Potassium 3.8 mmol/L (3.5-5.1); Sodium 140 mmol/L (136-145); Total Protein 6.4 g/dL (6.4-8.2)
== END 2020-09-07 17:14 ==
LOC: NCHCN 16:54
PROVIDERS: PCP Family Medicine; Visit Provider Family Medicine
DX: E83.51 Hypocalcemia (principal)
CPT/HCPCS: 80053

== ENCOUNTER 2021-02-08 03:45 | Outpatient (CLI) | payer MEDICAID, SELFPAY ==
[2021-02-08 13:29] LABS: Abs Immature Grans 0.01 10^3/uL (0.0-0.06); Absolute Basophil Count 0.03 10^3/uL (0.0-0.2); Absolute Eosinophil Count 0.15 10^3/uL (0.0-0.7); Absolute Lymphocyte Count 0.62 10^3/uL (1.2-3.4); Basophils % 0.5; Eosinophils % 2.6; HCT 38.9 % (36.0-46.0); HGB 13.2 g/dL (11.2-15.7); Immature Grans % 0.2; Lymphocytes % 10.9; MCH 28.2 pg (27.0-33.0); MCHC 33.9 % (32.0-36.0); MCV 83.1 fL (80-95); MPV 9.5 fL (8.0-11.0); Monocytes % 8.8; Nucleated RBC 0 %; Platelet Count 231 10^3/uL (130-400); RBC 4.68 10^6/uL (3.93-5.22); RDW 13.2 % (11.7-14.6); RDW-SD 39.8 fL; WBC 5.71 10^3/uL (4.4-10.8)
[2021-02-08 14:24] LABS: Albumin 3.5 g/dL (3.4-5.0); Anion Gap 10.7 mmol/L (3-11); BUN 15 mg/dL (7-18); CO2 27.3 mmol/L (21.0-32.0); CREATININE 0.9 mg/dL (0.55-1.02); Chloride 106 mmol/L (98-107); Glucose 91 mg/dL (74-106); Magnesium 1.9 mg/dL (1.8-2.4); Potassium 3.8 mmol/L (3.5-5.1); Sodium 144 mmol/L (136-145); TSH (W/Ref FT4) 4.17 uIU/mL (0.36-3.74)
[2021-02-08 14:38] LABS: Vitamin D 25 Total 19.2 ng/mL (30-100)
[2021-02-08 14:47] LABS: FREE T4 1.21 ng/dL (0.76-1.46)
[2021-02-09 09:44] LABS: Parathyroid Hormone,Intact 28 pg/mL (19-88)
== END 2021-02-08 03:46 | disposition home or self-care (01) ==
LOC: LBO 03:46
PROVIDERS: Physical Therapy Assistant; PCP Family Medicine; Visit Provider Family Medicine
DX: E89.2 Postprocedural hypoparathyroidism (principal); E83.51 Hypocalcemia; I45.81 Long QT syndrome; E55.9 Vitamin D deficiency, unspecified
CPT/HCPCS: 36415; 80048; 82306; 82040; 83735; 83970; 84439; 84443; 85025

== ENCOUNTER 2021-03-10 14:48 | Emergency (ER) | payer MEDICAID, SELFPAY ==
[2021-03-10 14:53] VITALS: BP 144/73; PULSE 78; RESP 16; TEMP 36.9; O2SAT 98
--- NOTE | 2021-03-10 15:45 | DI.MRI_ITS ---
Exam(s) MR BRAIN WO EXAM: MR BRAIN WO CLINICAL HISTORY: rt frontal HANSEN, antiphosp antibody syndrom TECHNIQUE: Multiplanar multisequence MRI of the brain was performed. COMPARISON: MR MR ANGIO BRAIN WO from 03/10/2021 FINDINGS: CEREBRAL PARENCHYMA: There is no evidence of intracranial hemorrhage, mass effect, or shift of midline structures. There are no extra-axial fluid collections. Ventricles are not enlarged or shifted. There is no significant focal signal abnormality in the cerebellar hemispheres nor within the whit, m idbrain, and thalami. However, there are multiple foci of white matter signal abnormality in the periventricular and subcor tical regions, not associated with hemorrhage or surrounding edema nor abnormal signal on diffusion i maging. There is no significant focal signal abnormality evident on diffusion imaging to suggest acute ischem ic event. PITUITARY GLAND: No mass nor parasellar abnormality. No obvious abnormality in the cavernous sinuses. FLOW VOIDS: The expected flow void are noted. No evidence of obvious aneurysm nor obvious vascular ma lformation. PARANASAL SINUSES: Paranasal sinuses are clear. However, there is some fluid signal in mastoid air c ells on the right side ORBITS: No obvious findings. IMPRESSION: There are multiple foci of signal abnormality bilaterally in the Judith ventricular and subcortical whi te matter, either consistent with chronic ischemic change or sequela of inflammation. There is no si gnal abnormality on diffusion imaging to suggest acute ischemic event. No evidence of intracranial h emorrhage. DATA REPOSITORY:
--- NOTE | 2021-03-10 15:51 | DI.MRI_ITS ---
Exam(s) MR ANGIO BRAIN WO EXAM: MR ANGIO BRAIN WO CLINICAL HISTORY: rt frontal HANSEN, antiphosp antibody syndrom TECHNIQUE: Study performed was magnetic resonance venography. Performed without IV contrast COMPARISON: Brain MRI was reviewed FINDINGS: The visualized intracranial venous sinuses appear patent. The superior sagittal sinus is patent as is the straight sinus and transverse sinuses bilaterally. S igmoid sinuses are also patent. Visualized upper aspect of the internal jugular veins are also paten t. IMPRESSION: 1. No evidence of intracranial venous sinus thrombosis. DATA REPOSITORY:
[2021-03-10] MEDS: Ibuprofen 600 MG TAB PO (15:52)
[2021-03-10 16:43] LABS: BUN 18 mg/dL (7-18); Calcium 8.5 mg/dL (8.5-10.1); Chloride 105 mmol/L (98-107); Estimated GFR 56.75 (mL/min/1.73m2); Glucose 96 mg/dL (74-106); Potassium 3.8 mmol/L (3.5-5.1); Sodium 144 mmol/L (136-145)
[2021-03-10 17:12] VITALS: BP 153/65; PULSE 61; RESP 18; TEMP 36.6; O2SAT 97
--- NOTE | 2021-03-10 17:16 | DI.VRAD_ITS ---
PROCEDURE INFORMATION: Exam: MRA Head Without Contrast; Venography Exam date and time: 03/10/2021 4:34 PM Age: 61 years old Clinical indication: Headache and other: Antiphosp antibody syndrome TECHNIQUE: Imaging protocol: Magnetic resonance angiography of the head without contrast. Exam focused on the veins. COMPARISON: CT sinus wo 10/15/2018 3:01 PM FINDINGS: Superior sagittal sinus: Patent. Straight sinus: Patent. Transverse sinuses: Patent. Sigmoid sinuses: Patent. Internal jugular veins: Visualized segment patent. IMPRESSION: No venous thrombus. For Dictated and Authenticated by: Hope Nichols MD. Ordering:DYLAN Gordon MD
--- NOTE | 2021-03-10 17:22 | DI.VRAD_ITS ---
PROCEDURE INFORMATION: Exam: MR Head Without Contrast Exam date and time: 03/10/2021 4:44 PM Age: 61 years old Clinical indication: Other: Frontal HANSEN, antiphosp antibody syndrome TECHNIQUE: Imaging protocol: MR of the head without contrast. COMPARISON: MR ANGIO BRAIN WO 03/10/2021 4:27 PM FINDINGS: Brain: Extensive foci of increased T2 and increased FLAIR signal in the periventricular and deep white matter of both cerebral hemispheres in a pattern consistent with chronic small vessel ischemic change or sequelae of old inflammation. No restricted diffusion to suggest acute ischemia. No intra-axial or extra-axial mass or hemorrhage. No midline shift. Cerebral ventricles: Normal. No ventriculomegaly. Bones/joints: Unremarkable. Paranasal sinuses: Normal as visualized. No acute sinusitis. Mastoid air cells: Fluid in multiple right mastoid air cells. Orbital cavity: Unremarkable. Soft tissues: Unremarkable. IMPRESSION: 1. Extensive foci of chronic small vessel ischemic change or sequelae of inflammation in the white matter both cerebral hemispheres 2. No acute findings Dictated and Authenticated by: Hope Nichols MD. Ordering:DYLAN Gordon MD
[2021-03-10 17:53] LABS: Abs Immature Grans 0.04 10^3/uL (0.0-0.06); Absolute Basophil Count 0.03 10^3/uL (0.0-0.2); Absolute Eosinophil Count 0.16 10^3/uL (0.0-0.7); Absolute Lymphocyte Count 0.59 10^3/uL (1.2-3.4); Absolute Monocyte Count 0.68 10^3/uL (0.1-0.8); Absolute Neutrophil Count 8.13 10^3/uL (1.2-6.7); Basophils % 0.3; Eosinophils % 1.7; HGB 13.4 g/dL (11.2-15.7); Immature Grans % 0.4; Lymphocytes % 6.1; MCH 28.1 pg (27.0-33.0); MCHC 33.5 % (32.0-36.0); MCV 83.9 fL (80-95); MPV 9.3 fL (8.0-11.0); Monocytes % 7.1; Neutrophils % 84.4; Nucleated RBC 0 %; Platelet Count 233 10^3/uL (130-400); RBC 4.77 10^6/uL (3.93-5.22); RDW 13.1 % (11.7-14.6); WBC 9.63 10^3/uL (4.4-10.8)
--- NOTE | 2021-03-10 17:58 | ED.GENADUL_ITS ---
Discharge Plan Disposition Patient Disposition: HOME Condition: Stable Discharge Details Clinical Impression: Headache Primary Care Provider: Daniel Hinkle ED Provider: Evan Whitmore Home Meds and New Rx's Prescriptions: No Action albuterol sulfate [ProAir HFA] 90 mcg/actuation HFA aerosol inhaler 2 puff Inhalation Q6H PRN (Reason: shortness of breath) RF: 0 ibuprofen 600 mg tablet 600 mg PO Q8H PRN (Reason: pain) Qty: 60 RF: 3 hydroxychloroquine 200 MG tablet 200 mg PO DAILY Qty: 30 RF: 11 levothyroxine 125 MCG tablet 125 mcg PO HS RF: 0 simvastatin 20 MG tablet 20 mg PO DAILY RF: 0 loratadine 10 mg Capsule 10 mg PO DAILY RF: 0 calcium carbonate [Oyster Shell Calcium] 500 mg calcium (1,250 mg) Tablet 500 mg PO DAILY RF: 0 losartan-hydrochlorothiazide 100-12.5 mg Tablet 1 tab PO DAILY RF: 0 pramipexole 0.25 mg Tablet 0.25 mg PO QHS RF: 0 acetaminophen 500 mg tablet 1,000 mg PO Q8H PRN (Reason: pain) Qty: 90 RF: 3 aspirin 81 mg Tablet,Delayed Release (Dr/Ec) 81 mg PO DAILY RF: 0 Discharge Instructions Instructions: General Headache (ED) Additional Instructions: Please take ibuprofen over the counter. Take 600mg by mouth every 6 hours as needed for pain. Please contact your primary care physician to arrange follow-up. Please be sure to discuss results of imaging studies. Your MRI brain did show chronic small vessel ischemic change or sequela of inflammation in the white matter of both cerebral hemispheres. Return to the ER for any worsening or new concerning symptoms. Referrals: Daniel Hinkle [Primary Care Provider] - Discharge Data Discharge Date/Time-TO BE ENTERED AT DEPARTURE: 03/10/21 18:25 Medical Decision Making Patient 61-year-old female with history of lupus and antiphospholipid syndrome here with right-sided headache for the past 4-5. Patient is neurologically intact. No meningismus. Consider venous sinus thrombus. MRI of the brain: IMPRESSION: 1. Extensive foci of chronic small vessel ischemic change or sequelae of inflammation in the white matter both cerebral hemispheres 2. No acute findings MRV of brain interpreted by radiology: 1. No evidence of intracranial venous sinus thrombosis. Labs reviewed and nondiagnostic. All results were discussed with patient. Lab Data Lab results reviewed: Yes I reviewed the patient's lab results. Labs: Laboratory Tests Range/Units 03/10/21 03/10/21 16:15 17:45 WBC (4.4-10.8) 10^3/uL 9.63 RBC (3.93-5.22) 10^6/uL 4.77 Hgb (11.2-15.7) g/dL 13.4 Hct (36.0-46.0) % 40.0 MCV (80-95) fL 83.9 MCH (27.0-33.0) pg 28.1 MCHC (32.0-36.0) % 33.5 RDW (11.7-14.6) % 13.1 Plt Count (130-400) 10^3/uL 233 MPV (8.0-11.0) fL 9.3 Immature Gran % 0.4 Neutrophils % 84.4 Lymphocytes % 6.1 Monocytes % 7.1 Eosinophils % 1.7 Basophils % 0.3 Nucleated RBC % % 0 Absolute Neutrophils (1.2-6.7) 10^3/uL 8.13 H Absolute Lymphocytes (1.2-3.4) 10^3/uL 0.59 L Absolute Monocytes (0.1-0.8) 10^3/uL 0.68 Absolute Eosinophils (0.0-0.7) 10^3/uL 0.16 Absolute Basophils (0.0-0.2) 10^3/uL 0.03 Sodium (136-145) mmol/L 144 Potassium (3.5-5.1) mmol/L 3.8 Chloride (98-107) mmol/L 105 Carbon Dioxide (21.0-32.0) mmol/L 31.0 Anion Gap (3-11) mmol/L 8.0 BUN (7-18) mg/dL 18 Creatinine (0.55-1.02) mg/dL 1.0 Estimated GFR/1.73 m2 (mL/min/1.73m2) 56.75 Glucose (74-106) mg/dL 96 Calcium (8.5-10.1) mg/dL 8.5 HPI General Mode of arrival: ambulatory . Date/Time Provider Initiated Documentation: 03/10/21 15:09 . Limitations to Documentation: no limitations . Information obtained by: patient . HPI Narrative: 61-year-old female presents with chief complaint of headache. Patient notes she has a discomfort behind her right eye and right side of her head that started on 4 to 5 days ago and has per sisted. Discomfort is moderate intensity and constant. No modifiers. She has associated pain in her posterior lateral right neck and occiput. No associated visual changes. No associated nausea or vomiting. No numbness or tingling or focal weight. Related Data Home Medications Medication Instructions Recorded Confirmed simvastatin 20 mg PO DAILY 11/15/12 03/10/21 hydroxychloroquine 200 mg PO DAILY #30 tab-cap 11/16/16 03/10/21 levothyroxine 125 mcg PO HS tab-cap 05/25/17 03/10/21 albuterol sulfate 90 mcg/actuation 2 puff INHALATION Q6H PRN inh 10/04/18 03/10/21 aerosol inhaler loratadine 10 mg PO DAILY 10/28/18 03/10/21 calcium carbonate [Oyster Shell 500 mg PO DAILY 07/05/19 03/10/21 Calcium] losartan-hydrochlorothiazide 1 tab PO DAILY 07/05/19 03/10/21 pramipexole 0.25 mg PO QHS 07/05/19 03/10/21 acetaminophen 1,000 mg PO Q8H PRN #90 tab 07/17/19 03/10/21 aspirin 81 mg PO DAILY 05/08/20 03/10/21 ibuprofen 600 mg tablet 600 mg PO Q8H PRN #60 tab 07/17/20 03/10/21 Previous Rx's Medication Instructions Recorded acetaminophen 1,000 mg PO Q8H PRN #90 tab 07/17/19 ibuprofen 600 mg tablet 600 mg PO Q8H PRN #60 tab 07/17/20 Allergies Allergy/AdvReac Type Severity Reaction Status Date / Time oxycodone [From Percocet] AdvReac Intermediate Nausea Verified 03/10/21 14:58 General Stated Complaint: Headache PRISCILLA: 3 Review of Systems All systems reviewed & are unremarkable except as noted in HPI and below Constitutional Constitutional: Denies fever(s) and Reports headache(s) ENT Ears, Nose, Mouth, and Throat: Denies vertigo, Denies dizziness and Reports headache(s) Cardiovascular Cardiovascular: Denies chest pain Musculoskeletal Musculoskeletal: Denies numbness Neurologic Neurologic: Denies confusion, Denies vertigo, Denies dizziness, Reports headache(s) and Denies numbness Psychiatric Psychiatric: Denies confusion [facility] Medical History Abnormal mammogram of right breast Allergic rhinitis Amyloidosis Antiphospholipid syndrome Asthma Chest wall pain Constipation as above Degenerative joint disease Diverticulitis of sigmoid colon chronic vs abx assoc colitis Eczema GERD (gastroesophageal reflux disease) stable Herniated nucleus pulposus, lumbar HTN (hypertension) Hyperlipidemia Hypocalcemia Insomnia Lupus Normal colonoscopy [place] 11/13/[address] Natalya Styles at [facility], severe diverticular dz, repeat 10 years. mg Pericarditis Sciatica, left side Surgical History H/O: hysterectomy History of bone marrow biopsy History of total right knee replacement S/P thyroidectomy Tonsillectomy Social History Smoking/Tobacco Use Status: Former Tobacco Use Quit Date: 08/14/99 Smoking risk assessment performed?: Yes Alcohol Intake: current Alcohol Intake frequency: a few times a week Alcohol type: beer and wine Drug use: Never Substance use type: does not use Details: alcohol: t-7 Current gender identity: female Do you feel safe at home: Yes Do you feel safe in your relationship?: Yes Exam Const General: cooperative and no acute distress HENRI Head: normocephalic and atraumatic Mouth: moist mucous membranes Eyes Conjunctivae: normal conjunctivae Sclera: normal sclerae Pupils: PERRL EOM: EOM intact bilaterally Direct ophthalmoscopy: no papilledema Neck Neck: trachea midline and supple Resp Auscultation: clear to auscultation bilaterally, no rales, no rhonchi and no wheezes Cardio Jugular venous pressure: no JVD Rate: regular rate and not tachycardic Rhythm: regular rhythm GI Palpation: soft, not firm, no guarding, no masses, not rigid and nontender Skin General skin exam: no rashes or lesions noted Neuro General: patient alert, patient awake, patient oriented x3 and tone normal Cranial Nerves: CN's II-XI intact bilaterally Cognition: normal cognition Speech: speech normal Motor: strength 5/5 throughout Sensory Exam: no sensory deficits noted Extrem General: no edema Psych Appearance: grossly normal Mental Status: mental status grossly normal Speech and Movement: speech and movement normal Course Vital Signs Vital signs: Vital Signs Temperature 36.9 C 03/10/21 14:53 Pulse 78 03/10/21 14:53 Respiratory Rate 16 03/10/21 14:53 Blood Pressure 144/73 H 03/10/21 14:53 Pulse Oximetry 98 03/10/21 14:53 Temperature 36.6 C 03/10/21 17:12 Temperature Source Skin 03/10/21 17:12 Pulse 61 03/10/21 17:12 Respiratory Rate 18 03/10/21 17:12 Respiratory Effort 03/10/21 15:08 Blood Pressure 153/65 H 03/10/21 17:12 Pulse Oximetry 97 03/10/21 17:12 Oxygen Delivery Method Room Air 03/10/21 17:12 Oxygen Flow Rate 0 03/10/21 17:12 Pain Level 2 03/10/21 17:12 Lab/Test Results Lab/Test Results: Laboratory Tests Range/Units 03/10/21 03/10/21 16:15 17:45 WBC (4.4-10.8) 10^3/uL 9.63 RBC (3.93-5.22) 10^6/uL 4.77 Hgb (11.2-15.7) g/dL 13.4 Hct (36.0-46.0) % 40.0 MCV (80-95) fL 83.9 MCH (27.0-33.0) pg 28.1 MCHC (32.0-36.0) % 33.5 RDW (11.7-14.6) % 13.1 Plt Count (130-400) 10^3/uL 233 MPV (8.0-11.0) fL 9.3 Immature Gran % 0.4 Neutrophils % 84.4 Lymphocytes % 6.1 Monocytes % 7.1 Eosinophils % 1.7 Basophils % 0.3 Nucleated RBC % % 0 Absolute Neutrophils (1.2-6.7) 10^3/uL 8.13 H Absolute Lymphocytes (1.2-3.4) 10^3/uL 0.59 L Absolute Monocytes (0.1-0.8) 10^3/uL 0.68 Absolute Eosinophils (0.0-0.7) 10^3/uL 0.16 Absolute Basophils (0.0-0.2) 10^3/uL 0.03 Sodium (136-145) mmol/L 144 Potassium (3.5-5.1) mmol/L 3.8 Chloride (98-107) mmol/L 105 Carbon Dioxide (21.0-32.0) mmol/L 31.0 Anion Gap (3-11) mmol/L 8.0 BUN (7-18) mg/dL 18 Creatinine (0.55-1.02) mg/dL 1.0 Estimated GFR/1.73 m2 (mL/min/1.73m2) 56.75 Glucose (74-106) mg/dL 96 Calcium (8.5-10.1) mg/dL 8.5
[2021-03-10 18:21] VITALS: BP 134/67; PULSE 60; RESP 14; TEMP 36.7; O2SAT 98
== END 2021-03-10 18:25 | disposition home or self-care (01) ==
PROVIDERS: Emergency Provider Student in an Organized Health Care Education/Training Program; PCP Family Medicine
DX: R51.9 Headache, unspecified (principal); R42 Dizziness and giddiness; D68.61 Antiphospholipid syndrome
CPT/HCPCS: 70544; 80048; 99285; 70551; 85025; 99284

== ENCOUNTER 2021-07-16 10:57 | Outpatient (CLI) | payer MEDICAID, SELFPAY ==
--- NOTE | 2021-07-16 10:30 | DI.RAD_ITS ---
Exam(s) XR KNEE RT 2V AP,LAT EXAM: XR KNEE RT 2V AP,LAT CLINICAL HISTORY: 2nd annual f/u R TKA. TECHNIQUE: 2D digital imaging was performed of the right knee. Two views obtained. AP and lateral views were obtained. COMPARISON: CR XR KNEE RT 2V AP,LAT from 07/17/2020 FINDINGS: BONES: No acute fracture is present. No bony destructive lesion is seen. JOINTS: There are stable postsurgical changes of a right total knee replacement. No evidence of hard acuña failure. No joint effusion is seen. SOFT TISSUE: Dystrophic calcifications are again seen in the soft tissues. IMPRESSION: Stable right TKR. DATA REPOSITORY: RADIATION DOSE DELIVERED:
== END 2021-07-16 10:58 | disposition home or self-care (01) ==
LOC: DIORS 10:58
PROVIDERS: PCP Family Medicine; Visit Provider Student in an Organized Health Care Education/Training Program
DX: Z96.651 Presence of right artificial knee joint (principal)
CPT/HCPCS: 73560

== ENCOUNTER 2021-12-28 15:45 | Outpatient (REF) | payer MEDICAID, SELFPAY ==
[2021-12-28 18:35] LABS: ALT 22 U/L (14-59); AST 18 U/L (15-37); Albumin 3.7 g/dL (3.4-5.0); Alkaline Phosphatase 93 U/L (46-116); Anion Gap 10.6 mmol/L (3-11); BUN 13 mg/dL (7-18); Bilirubin, Total 0.3 mg/dL (0.2-1.0); CO2 28.4 mmol/L (21.0-32.0); CREATININE 0.8 mg/dL (0.55-1.02); Chloride 104 mmol/L (98-107); Glucose 93 mg/dL (74-106); Magnesium 1.8 mg/dL (1.8-2.4); Potassium 3.8 mmol/L (3.5-5.1); Sodium 143 mmol/L (136-145); TSH (W/Ref FT4) 8.98 uIU/mL (0.36-3.74); Total Protein 6.2 g/dL (6.4-8.2)
[2021-12-28 19:01] LABS: FREE T4 1.14 ng/dL (0.76-1.46)
[2021-12-30 06:35] LABS: Vitamin D 25 Total 25.8 ng/mL (30-100)
== END 2021-12-28 15:46 | disposition home or self-care (01) ==
LOC: NCHCN 15:45
PROVIDERS: PCP Family Medicine; Visit Provider Family Medicine
DX: I10 Essential (primary) hypertension (principal); E83.51 Hypocalcemia; I45.81 Long QT syndrome; E89.0 Postprocedural hypothyroidism
CPT/HCPCS: 80053; 82306; 83735; 84439; 84443

== ENCOUNTER → 2022-02-01 00:30 | Outpatient (CLI) | payer MEDICAID, SELFPAY ==
--- NOTE | 2022-02-01 14:07 | DI.RAD_ITS ---
Exam(s) XR CHEST 2V PA LATERAL EXAM: XR CHEST 2V PA LATERAL CLINICAL HISTORY: ATYPICAL CHEST PAIN, R07.9, LUPUS, L93.0, H/O SLE, PERICARDITIS TECHNIQUE: 2D digital imaging was performed. COMPARISON: CR XR CHEST 2V PA LATERAL from 12/10/2018 FINDINGS: MEDIASTINUM: Normal. HEART: Normal. PULMONARY VASCULATURE: Normal. LUNGS: Clear. PLEURAL SPACE: No pleural effusion or pneumothorax. BONE:Unremarkable for age. IMPRESSION: No acute abnormality. DATA REPOSITORY: RADIATION DOSE DELIVERED:
== END ==
PROVIDERS: PCP Family Medicine; Visit Provider Family Medicine
DX: R07.89 Other chest pain (principal); L93.0 Discoid lupus erythematosus
CPT/HCPCS: 71046

== ENCOUNTER 2022-04-26 15:52 | Outpatient (REF) | payer MEDICAID, SELFPAY ==
[2022-04-26 20:08] LABS: Abs Immature Grans 0.01 10^3/uL (0.0-0.06); Absolute Basophil Count 0.03 10^3/uL (0.0-0.2); Absolute Eosinophil Count 0.22 10^3/uL (0.0-0.7); Absolute Lymphocyte Count 0.53 10^3/uL (1.2-3.4); Absolute Monocyte Count 0.62 10^3/uL (0.1-0.8); Absolute Neutrophil Count 5.22 10^3/uL (1.2-6.7); Basophils % 0.5; Eosinophils % 3.3; HCT 40.4 % (36.0-46.0); HGB 13.5 g/dL (11.2-15.7); Immature Grans % 0.2; MCH 28.1 pg (27.0-33.0); MCHC 33.4 % (32.0-36.0); MCV 84 fL (80-95); MPV 9.4 fL (8.0-11.0); Monocytes % 9.4; Neutrophils % 78.6; Platelet Count 267 10^3/uL (130-400); RDW 13.6 % (11.7-14.6); WBC 6.63 10^3/uL (4.4-10.8)
[2022-04-26 20:10] LABS: ESR 8 mm/hr (0-30)
[2022-04-26 20:32] LABS: Hemoglobin A1C 5.6 % (<5.7)
[2022-04-26 20:56] LABS: ALT 19 U/L (14-59); AST 20 U/L (15-37); Albumin 3.6 g/dL (3.4-5.0); Alkaline Phosphatase 90 U/L (46-116); Anion Gap 8.7 mmol/L (3-11); BUN 14 mg/dL (7-18); Bilirubin, Total 0.3 mg/dL (0.2-1.0); CO2 31.3 mmol/L (21.0-32.0); CREATININE 0.9 mg/dL (0.55-1.02); Calcium 7.8 mg/dL (8.5-10.1); Chloride 102 mmol/L (98-107); Estimated GFR 73.19 (mL/min/1.73m2); Glucose 103 mg/dL (74-106); Potassium 3.7 mmol/L (3.5-5.1); Sodium 142 mmol/L (136-145); TSH 9.92 uIU/mL (0.36-3.74); Total Protein 6.3 g/dL (6.4-8.2); Vitamin B12 510 pg/mL (193-986)
== END 2022-04-26 15:53 | disposition home or self-care (01) ==
LOC: LBN 15:52
PROVIDERS: PCP Family Medicine; Visit Provider Family Medicine
DX: E89.2 Postprocedural hypoparathyroidism (principal); E85.9 Amyloidosis, unspecified; J06.9 Acute upper respiratory infection, unspecified
CPT/HCPCS: 80053; 85652; 82607; 83036; 84443; 85025

== ENCOUNTER 2022-05-26 16:38 | Outpatient (REF) | payer MEDICAID, SELFPAY ==
[2022-05-26 17:00] LABS: Abs Immature Grans 0.02 10^3/uL (0.0-0.06); Absolute Basophil Count 0.03 10^3/uL (0.0-0.2); Absolute Eosinophil Count 0.18 10^3/uL (0.0-0.7); Absolute Monocyte Count 0.56 10^3/uL (0.1-0.8); Absolute Neutrophil Count 4.53 10^3/uL (1.2-6.7); Basophils % 0.5; HCT 42.8 % (36.0-46.0); HGB 14.6 g/dL (11.2-15.7); Immature Grans % 0.3; Lymphocytes % 11.6; MCH 28.1 pg (27.0-33.0); MCHC 34.1 % (32.0-36.0); MCV 83 fL (80-95); MPV 8.9 fL (8.0-11.0); Monocytes % 9.3; Neutrophils % 75.3; Platelet Count 254 10^3/uL (130-400); RBC 5.19 10^6/uL (3.93-5.22); RDW 13.5 % (11.7-14.6); RDW-SD 40.5 fL; WBC 6.02 10^3/uL (4.4-10.8)
[2022-05-26 17:38] LABS: ALT 25 U/L (14-59); AST 29 U/L (15-37); Alkaline Phosphatase 93 U/L (46-116); Anion Gap 6.6 mmol/L (3-11); BUN 12 mg/dL (7-18); Bilirubin, Total 0.4 mg/dL (0.2-1.0); CO2 31.4 mmol/L (21.0-32.0); CREATININE 0.9 mg/dL (0.55-1.02); Calcium 8.8 mg/dL (8.5-10.1); Chloride 101 mmol/L (98-107); Estimated GFR 73.19 (mL/min/1.73m2); Glucose 101 mg/dL (74-106); Potassium 3.5 mmol/L (3.5-5.1); Sodium 139 mmol/L (136-145); Total Protein 6.9 g/dL (6.4-8.2)
== END 2022-05-26 16:39 | disposition home or self-care (01) ==
LOC: LBN 16:38
PROVIDERS: PCP Family Medicine; Visit Provider Physician Assistant Medical
DX: R10.9 Unspecified abdominal pain (principal)
CPT/HCPCS: 80053; 85025

== ENCOUNTER → 2022-05-27 14:47 | Outpatient (CLI) | payer MEDICAID, SELFPAY ==
[2022-05-27] MEDS: Omnipaque 350 MG/ML 500 ML BTL-Imaging package IJ (11:46)
--- NOTE | 2022-05-27 11:47 | DI.CT_ITS ---
Exam(s) CT ABDOMEN PELVIS W EXAM: CT ABDOMEN PELVIS W CLINICAL HISTORY: ABD PAIN, R10.9, X 1 WEEK, H/O DIVERTICULITIS OF SIGMOID COLON TECHNIQUE: Imaging Protocol: Axial computed tomography images with coronal and sagittal reformatted images were created and reviewed CONTRAST MATERIAL: Intravenous: Omnipaque 350 Contrast volume:100 mL Oral: No COMPARISON: CT CT ABDOMEN PELVIS W from 06/26/2020 FINDINGS: ABDOMEN: Lung Bases: Normal where visualized. Liver: Normal density. Multiple tiny hypodensities are seen in the liver. They are too small for fur ther characterization. These appear stable and likely reflect cysts. No suspicious hepatic masses a re seen. Portal, Superior Mesenteric, and Splenic Veins: Unremarkable. Gallbladder and Biliary Tract: No radiodense calculus or dilation. Stable appearance of the bile duct s. Pancreas: Normal density, no abnormal calcifications or inflammatory process. Spleen: Normal. Adrenals: No masses seen. Kidneys: Normal size, contour and axis. No radiodense stones or obstructive uropathy. No masses seen. Abdominal Aorta: Abdominal portion non-dilated. Atherosclerosis is present. Bowel: No obstruction or bowel wall thickening. Appendix is unremarkable. There is diverticulosis in the sigmoid colon but no evidence of acute diverticulitis. There is again seen a soft tissue communic ation between the posterior superior left aspect of the urinary bladder, vaginal cuff and sigmoid col on. There is a small focus of air in these soft tissues. No air is seen in the urinary bladder. Peritoneal Cavity: No ascites, collection or mesenteric inflammatory response. No free air. Lymph Nodes: Within normal limits. Bones: Within normal limits for the patient's age. Soft Tissues: There is a small fat containing umbilical hernia. PELVIS: Bladder: Symmetric distention, no gross wall thickening. Reproductive Organs: Status post hysterectomy. Lymph Nodes: Within normal limits. Bones: Within normal limits for the patient's age. IMPRESSION: 1. Colonic diverticulosis but no evidence of acute diverticulitis. 2. Persistent soft tissue in the pelvis connecting the sigmoid colon left aspect of the vaginal cuff and posterolateral left aspect of the urinary bladder. This linear soft tissue does contain small foc i of air. There is no air in the urinary bladder at this time. However, fistulous communication betwe en the vaginal cuff and sigmoid colon cannot be excluded. Please correlate clinically. RADIATION DOSE DELIVERED: 1,080.1mGy.cm Total DLP DATA REPOSITORY: All CT scans at this facility are submitted to the National Radiology Data Registry (NRDR) Dose Index Registry (DIR) with the [employer] (ACR). RADIATION OPTIMIZATION: All CT scans at this facility use at least one of these dose optimization te chniques: automated exposure control; mA and/or kV adjustment per patient size (includes targeted exa ms where dose is matched to clinical indication); or iterative reconstruction.
--- OUTSIDE RECORDS SUMMARY | 2022-05-27 14:50 | XMS_ITS | Encounter Summary ---
:1960 Author Organization [facility] [place] [address] Care Team Providers Name Role Phone Daniel Hinkle MD Primary Care Provider Encounter Details Date Type Department Care Team Description 10/16/2020 Notes Only Rhe[place]ology [place] [facility] [place] Lowe MD [facility] [place] [address] RHEUMATOLOGY DEPT. [phone] [place], [place] [address] (Wo rk) Social History Tobacco Use Types Packs/Day Years Used Date Former Smoker Cigarettes 1.5 15 Quit: 08/14/18 93 Smokeless Tobacco: Never Used Alcohol Use Standard Drinks/Week Comments Yes 2 (1 standard drink = 0.6 oz pure alcoho l) occ Alcohol Habits Answer Date Recorded How often do you have a drink containing alcohol? Not asked How many drinks containing alcohol do you have on a typical Not asked day when you are drinking? How often do you have six or more drinks on one occasion? No t asked Comment: occ 04/26/2017 Sex Assigned at Date Recorded Not on file documented as of this encounter Progress Notes Patricio Lowe MD - 10/16/2020 8:21 AM EST Notes on nl eye exam by Carlos received documented in this encounter Plan of Treatment Not on filedocumented as of this encounter Visit Diagnoses Not on filedocumented in this encounter Care Teams Cell Inspector Relationship Specialty Start Date End Date Daniel Hinkle MD PCP - General Family Medicine 09/19/16 [place] [address] documented as of this encounter
--- OUTSIDE RECORDS SUMMARY | 2022-05-27 14:50 | XMS_ITS | Encounter Summary ---
:1960 Author Organization [facility] Address [address] [place] [address] Care Team Providers Name Role Phone Daniel Hinkle MD Primary Care Provider Encounter Details Date Type Department Care Team Description 04/22/2020 Lab Requisition [facility] Outr Resulting Lab, Pathology & Laboratory Provider [facility] [address] [place] [address] Social History Tobacco Use Types Packs/Day Years Used Date Never Assessed Sex Assigned at Date Recorded Not on file documented as of this encounter Plan of Treatment Not on filedocumented as of this encounter Procedures Procedure Name Priority Date/Time Associated Diagnosis Comme nts CALCIUM, IONIZED Routine 04/22/2020 11:45 EDT Res ults for this procedure are i n the results section. documented in this encounter Results (ABNORMAL) CALCIUM, IONIZED (04/22/2020 11:45 EDT) Pathologist Sig nature Calcium, Ionized 0.91 (L) 1.12 - 1.32 [facility] mmol/L [facility] Specimen Blood - Venous blood (substance) Narrative [facility] - 04/22/2020 20:43 EDT Testing performed on heparinized plasma. Results may be biased 5% lower than that of whole blood. Performing Organization Address City/State/ZIP Code Phon e Number [facility] [address] [place] [address] SERVICES documented in this encounter Visit Diagnoses Not on filedocumented in this encounter Care Teams Navigation Teacher Relationship Specialty Start Date End Date Daniel Hinkle MD PCP - General 11/20/[address], [place] [phone] documented as of this encounter
--- OUTSIDE RECORDS SUMMARY | 2022-05-27 14:50 | XMS_ITS | Encounter Summary ---
:1960 Author Organization [facility] [place] [address] Care Team Providers Name Role Phone Daniel Hinkle MD Primary Care Provider Reason for Visit Reason Onset Date Comments Appointment 02/19/2021 Encounter Details Date Type Department Care Team Description 02/19/2021 Telephone Endocrinology at [facility] C America Bridges I [facility] [place] [address] Social History Tobacco Use Types Packs/Day Years Used Date Former Smoker Cigarettes 1.5 15 Quit: 08/14/18 93 Smokeless Tobacco: Never Used Alcohol Use Standard Drinks/Week Comments Yes 2 (1 standard drink = 0.6 oz pure alcoho l) [facility] Alcohol Habits Answer Date Recorded How often [...] on file documented as of this encounter Miscellaneous Notes Telephone Encounter - America Bridges I - 02/19/2021 10:56 AM EDT Unable to contact patient to schedule from referral. Letter sent and referral closed documented in this encounter Plan of Treatment Not on filedocumented as of this encounter Visit Diagnoses Not on filedocumented in this encounter Care Teams Sheet Rock Taper Helper Relationship Specialty Start Date End Date Daniel Hinkle MD PCP - General Family Medicine 09/19/16 [address] [address] documented as of this encounter
--- OUTSIDE RECORDS SUMMARY | 2022-05-27 14:50 | XMS_ITS | Encounter Summary ---
:1960 Author Organization [facility] [place] [address] Care Team Providers Name Role Phone Daniel Hinkle MD Primary Care Provider Reason for Visit Reason Onset Date Comments Medication Refill 09/21/2020 Encounter Details Date Type Department Care Team Description 09/21/2020 Refill Rheumatology at [facility] [place] Juan Waters, [place] [address] Social History Tobacco Use Types Packs/Day Years Used Date Former Smoker Cigarettes 1.5 15 Quit: 08/14/18 93 Smokeless Tobacco: Never Used Alcohol Use Standard Drinks/Week Comments Yes 2 (1 standard drink = 0.6 oz pure alcoho l) [facility] Alcohol Habits Answer Date Recorded How often [...] on filedocumented in this encounter Care Teams Transmission Superintendent Relationship Specialty Start Date End Date Daniel Hinkle MD PCP - General Family Medicine 09/19/16 [facility] [place] [id number] (work) documented as of this encounter
--- OUTSIDE RECORDS SUMMARY | 2022-05-27 14:50 | XMS_ITS | Encounter Summary ---
:[address] [facility] Address [address] [place] [address] Care Team Providers Name Role Phone Unknown, Provider Primary Care Provider Encounter Details Date Type Department Care Team Description 11/13/2018 Results Only [facility] Zahra Price, DO [phone] [address] [place] [address] Social History Tobacco Use Types Packs/Day Years Used Date Never Assessed Sex Assigned at Date Recorded Not on file documented as of this encounter Plan of Treatment Not on filedocumented as of this encounter Procedures Procedure Name Priority Date/Time Associated Diagnosis Comme [facility] SURGICAL PATHOLOGY Routine 11/13/2018 16:13 Resul ts for this EDT procedure are i n the results section. documented in this encounter Results SURGICAL PATHOLOGY (11/13/2018 16:13 EDT) Pathology Report: SURGICAL PATHOLOGY REPORT [facility] Reports generated via electronic interface contain tulio ginal data; LABORATORY however they are lacking the format of the original re port. SERVICES Caution should be taken when reading/interpreting unfo rmatted reports. Name: ? DHEERAJ YUSUF ? Accession #: ? [id number] ? : ? 1960 (Age: [age]) ??F ? Collect Date: ? 11/13/2018 ? Location: ? [facility] ? Receive Date: ? 9 ? Provider: ZAHRA QUIJANO DO Copy to: ? Final Pathologic Diagnosis: A. COLON, BIOPSY AT 30 CM, BIOPSY: - ??Fragment of hyperplastic polyp. Document reviewed and electronically signed by: EULALIO HAIDER MD Report ??Date: 11/15/2018 14:40 By the signature above, the attending physician certif ies that he/she has personally conducted a gross and/or microscopic examin ation of the described specimens and rendered or confirmed the above diagnosi s. Specimen(s) Received: Bx at 30 cm Clinical History: H/O diverticulosis Gross Description: ? Received in formalin labelled with proper patient identification (initials W, K) and BX 30 cm is a single fragmen t of pink tissue (0.3 x 0.3 x 0.3 cm). The specimen is entirely submitted in 1. KOLE Manzano (ASCP) 11/13/2018 4:20 PM End of Report Specimen Performing Organization Address City/State/ZIP Code Phon e Number [facility] [address] [place] [address] SERVICES documented in this encounter Visit Diagnoses Not on filedocumented in this encounter Care Teams Account Resolution Expert Relationship Specialty Start Date End Date Unknown, Provider, PCP - General 11/13/18 11/19/18 documented as of this encounter
--- OUTSIDE RECORDS SUMMARY | 2022-05-27 14:50 | XMS_ITS | Encounter Summary ---
:1960 Author Organization [facility] [place] [address] Care Team Providers Name Role Phone Daniel Hinkle MD Primary Care Provider Encounter Details Date Type Department Care Team Description 11/01/2019 Telephone [place] [facility] [place] [address] Social History Tobacco Use Types Packs/Day [...] this encounter Miscellaneous Notes Telephone Encounter - Karla Cabral - 11/01/2019 8:22 AM EDT Lm for pt to call and confirm change of appt to phone visit. Pt will need to call back and confirm this documented in this encounter Plan of Treatment Not on filedocumented as of this encounter Visit Diagnoses Not on filedocumented in this encounter Care Teams Assistant Professor Of Forestry Relationship Specialty Start Date End Date Daniel Hinkle MD PCP - General Family Medicine 09/19/16 [address] [place] [address] documented as of this encounter
--- OUTSIDE RECORDS SUMMARY | 2022-05-27 14:50 | XMS_ITS | Encounter Summary ---
:1960 Author Organization [facility] Address [address] [place] [address] Care Team Providers Name Role Phone Daniel Hinkle MD Primary Care Provider Encounter Details Date Type Department Care Team Description 01/17/2020 Lab Requisition [facility] Outr Resulting Lab, Pathology & Laboratory Provider [facility] [address] [place] [address] Social History Tobacco Use Types Packs/Day Years Used Date Never Assessed Sex Assigned at Date Recorded Not on file documented as of this encounter Plan of Treatment Not on filedocumented as of this encounter Procedures Procedure Name Priority Date/Time Associated Diagnosis Comme nts PTH INTACT Routine 01/16/2020 15:30 EDT Results for this procedure are i n the results section . documented in this encounter Results PTH INTACT (01/16/2020 15:30 EDT) Pathologist Sig nature Intact PTH 28 19 - 88 pg/mL [facility] Specimen Blood - Venous blood (substance) Performing Organization Address City/State/ZIP Code Phon e Number [facility] [address] [place] [address] SERVICES documented in this encounter Visit Diagnoses Not on filedocumented in this encounter Care Teams Script Manager Relationship Specialty Start Date End Date Daniel Hinkle MD PCP - General 11/20/[address] [place], [place] [id number] documented as of this encounter
--- OUTSIDE RECORDS SUMMARY | 2022-05-27 14:50 | XMS_ITS | Encounter Summary ---
:1960 Author Organization [facility] [place] [address] Care Team Providers Name Role Phone Daniel Hinkle MD Primary Care Provider Reason for Visit Reason Comments Medication Refill Encounter Details Date Type Department Care Team Description 03/09/2020 Refill Rheumatology at [facility] Patricio Lowe MD [facility] [place] [address] RHEUMATOLOGY DEPT. [phone] [place], [place] [address] (Wo rk) Social History Tobacco Use Types Packs/Day Years Used Date Former Smoker Cigarettes 1.5 15 Quit: 08/14/18 93 Smokeless Tobacco: Never Used Alcohol Use Standard Drinks/Week Comments Yes 2 (1 standard drink = 0.6 oz pure alcoho l) [facility] Alcohol Habits Answer Date Recorded How often [...] on filedocumented in this encounter Care Teams Coke Oven Patcher Relationship Specialty Start Date End Date Daniel Hinkle MD PCP - General Family Medicine 09/19/16 [place] [address] documented as of this encounter
--- OUTSIDE RECORDS SUMMARY | 2022-05-27 14:50 | XMS_ITS | Clinical Summary ---
:1960 Author Organization [facility] [place] [address] Care Team Providers Name Role Phone Daniel Hinkle MD Primary Care Provider Allergies Active Allergy Reactions Severity Noted Date Comments Azathioprine Nausea And Vomiting High 11/25/2015 Mycophenolate Mofetil Nausea And Vomiting 12/07/2015 Medications Medication Sig Dispensed Refills Start Date End Date Status simvastatin (ZOCOR) 20 mg Take 20 mg by 0 Active tablet mouth nightly. albuterol (PROVENTIL Inhale 2 puffs 0 Active HFA;VENTOLIN HFA;PROAIR) into the lungs 90 mcg/actuation HFA every 4 hours Aerosol Inhaler as needed for Wheezing. Use with spacer aspirin 81 mg Tablet, Take 1 tablet 0 01/28/2015 Active Delayed Release (E.C.) by mouth daily. cetirizine (ZYRTEC) 10 mg Take 10 mg by 0 Active Tablet mouth daily. fluticasone (FLOVENT) 220 Inhale 2 puffs 0 Active mcg/actuation HFA Aerosol into the lungs Inhaler 2 times daily. levothyroxine (SYNTHROID) Take 125 mcg 0 Active 125 mcg Tablet by mouth nightly. ibuprofen (ADVIL;MOTRIN) Take 1 tablet 30 tablet 12 02/04/2016 Active 800 mg Tablet by mouth every 8 hours as needed for Pain. hydroxychloroquine Take 1 tablet 30 tablet 5 02/24/2017 Active (PLAQUENIL) 200 mg Tablet by mouth daily. CALCIUM 500 WITH D 500 Take 1 tablet 0 10/17/2017 Active mg(1,250mg) -400 unit by mouth Tablet daily. losartan-hydrochlorothiaz take 1 tablet 0 01/26/2018 Active loly (HYZAAR) 50-12.5 mg by mouth once Tablet daily for blood pressure -THIS REPLACES LISINOPRIL/HCT Z cholecalciferol, Vitamin Take by mouth 0 Active D3, 1,000 unit Tablet daily. loratadine (CLARITIN) 10 Take 10 mg by 0 Active mg Tablet mouth daily. acetaminophen (Tylenol) Take 1,000 mg 0 Active 500 mg Tablet by mouth every 6 hours as needed for Pain. 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 Followed by Severiano Blakely and [facility]. W/U to date w/ neg ECHO at [facility]. CT w/ one para-aortic 2cm LN which we will follow. Neg SPEP and 24 hour urine at [facility]. Neg fat pad biopsy. BMBx not ye t completed. 10/29/09- eval of right medial denson lesio n, present for ~seven months ---Pathologic Diagnosis--- Skin, right medial denson, punch biopsy: Diffuse amyloidosis associated with vik pa-restricted plasma cell infiltrate (see Comment). ---Comment--- The biopsy shows diffuse amorphous eosinophilic deposition. A Congo red stain is positive, staining material between adipocytes, in fibrous connective tissue, and in vessel bauman. These a reas demonstrate apple green birefringen ce by polarized light. In addition, there is superficial and deep perivascular Cortez+, Lambda- plasma cell infiltrate. Please correlate with clinical findings to rule out systemic amyloidosis and to del ineate this plasma cell lesion. 12/08/09- ---Pathologic Diagnosis--- Skin of left thigh/hip, two punch biops ies: 1. Focal spongiosis and superficial and mid dermal perivascular lymphohistiocytic infiltrate with numerous eosinophils. 2. Mild superficial perivascular lympho cytic inflammation with scattered eosinophils, non-specific. (see Comment). There is no evidence of amyloidosis in either biopsy. 01/05/10- ---Pathologic Diagnosis--- A - Left lower leg, superior, punch bio psy: Dermatofibroma, present at a peripheral margin. No evidence of amyloid deposition on H and E and Congo red (amyloid) stains. B - Left lower leg, mid, punch biopsy: Diffuse amyloidosis. Congo red (amyloid ) stain is positive. C - Left lower leg, lower, punch biopsy : Diffuse amyloidosis. Congo red (amyloid ) stain is positive. D - Abdomen, fat pad, excisional biopsy : No evidence of amyloid deposition on H and E and Congo red (amyloid) stains. 02/24/10- CT TAP 1. Unchanged left periao rtic lymph node, which has a fatty hilum and is not pathologically enlarged by size criteria. 2. There are multiple small shotty-sized periaortic and aortocaval , as well as left common iliac nodes, wh ich are unchanged in size, shape, and appearance from the previous examination. 3. Sigmoid diverticulosis. 4. Two thyroid nodules. 5. Prominent spleen. 6. Right adnexal cysts. 7. Status post hysterectomy. BMBx negative. SPEP and SFLC remain neg ative. A/P- cutaneous amyloidosis with symptoma tic denson lesions. ?? CT February 2014 with 1cm (short axis) pa ra-aortic LN. Otherwise negative. SPEP, SFLC remain neg. ?? CT chest January 2015 negative ?? Skin biopsy 03/2015 DIAGNOSIS Skin, left abdomen, punch biopsy: - Skin with a deep perivascular lymphocy tic infiltrate and fibroadipose tissue; negative for amyloidosis. See di micahussion. DISCUSSION Congo red stains do not demonstrate amyl oidosis. The underlying etiology for the lymphoid infiltrate is unclear i n these sections, however, this could reflect a manifestation of an unde rlying systemic process. Clinicopathologic correlation is recomme nded. Drs. Bragg and Davey have reviewed this case and concur with this diagnosis. BMBX 06/09/2015 - negtative for amyloid and normal CG DIAGNOSIS No immunophenotypic evidence for involve ment of the bone marrow by a monoclonal lymphoproliferative or plasma cell neopl asm (see Discussion). 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 Followed by Marquis Lowe. On chronic Coumadin. No signs or symptoms of antiphospholipid syndrome since being started on warfarin. Initially presented with headaches and lightheadedness, and an MRI showed white matter changes. Edema of both legs 10/28/2010 Overview: With calf pain on reclining Miscarriage 10/28/2010 Overview: One Resolved Problems Problem Noted Date Resolved Date Supratherapeutic INR 01/24/2015 11/06/2015 Immunizations Name Administration Dates Next Due Influenza Vaccine w/Preservative, Split 04/07/2015, 05/14/20 14, 05/13/2013 Family History Medical History Relation Comments Hypertension Brother 1 Rheumatoid Arthritis Brother 2 Rheumatoid Arthritis Father Chronic Obstructive Pulmonary Disease Mother Hypertension Mother Relation Status Comments Brother 1 Brother 2 Father Mother Social History Tobacco Use Types Packs/Day Years Used Date Former Smoker Cigarettes 1.5 15 Quit: 08/14/18 93 Smokeless Tobacco: Never Used Alcohol Use Standard Drinks/Week Comments Yes 2 (1 standard drink = 0.6 oz pure alcoho l) [facility] Alcohol Habits Answer Date Recorded How often do you have a drink containing alcohol? Not asked How many drinks containing alcohol do you have on a typical Not asked day when you are drinking? How often do you have six or more drinks on one occasion? No t asked Comment: occ 04/26/2017 Sex Assigned at Date Recorded Not on file Last Filed Vital Signs Vital Sign Reading Time Taken Comments Blood Pressure 139/57 05/05/2021 10:58 AM EDT Pulse 72 05/05/2021 10:58 AM EDT Temperature 35.9 ??C (96.7 ??F) 05/05/2021 10:58 AM EDT Respiratory Rate 16 03/18/2021 9:19 AM EDT Oxygen Saturation 99% 05/05/2021 10:58 AM EDT Inhaled Oxygen Concentration - - Weight 94.1 kg (207 lb 6.4 oz) 05/05/2021 10:58 AM EDT Height 165.1 cm (5' 5) 05/05/2021 10:58 AM EDT Body Mass Index 34.51 05/05/2021 10:58 AM EDT Plan of Treatment Health Maintenance Due Date Last Done Comments Covid-19 Vaccine (#1) 1960 Pneumococcal Vaccine: At-Risk 02/29/1968 5-64yrs (1 - PCV) HIV screen 02/29/1980 Tdap adult 1981 Tetanus vaccine 1981 HPV test 02/29/1992 PAP Smear 02/29/1992 Breast Cancer Share Decision 2002 Needed Colonoscopy 2007 Breast Cancer screening 02/29/2012 Zoster vaccine (1 of 2) 02/29/2012 Advance Directive 2017 Influenza (Flu) vaccine (1 of 1 - 04/14/2022 04/07/2015, , Influenza standard series) 05/13/2013 Diabetes Screening (HgbA1C or 05/05/2024 05/05/2021, 2019, Glucose) 09/03/2018, Additional history exists Hepatitis C Screening Completed 11/05/2015 Insurance Payer Benefit Plan / Subscriber ID Effective Dates Phone Addre ss Type Group [place] [id number] 2015-Carl [phone] [address] [facility] [address] [place], [place] [phone] Advance Directives Latest Code Status on File Code Status Date Activated Date Inactivated Comments Full Code 11/05/2015 10:27 PM 11/09/2015 5:58 PM Does patient have capacity to make decision: Yes Full Code 05/01/2015 7:41 PM 05/03/2015 4:38 PM Does patient have capacity to make decision: Yes Full Code 01/22/2015 2:14 PM 01/28/2015 8:31 PM Does patient have decision making capacity? Yes, order is based on Patient wishes. Full Code 06/01/2012 1:12 PM 06/02/2012 11:58 AM Order Status: Initial Order Does patient have decision making capacity? Yes, Order is based on Patients wishes. Full Code 06/01/2012 10:21 AM 06/01/2012 1:12 PM Order Status: Initial Order Does patient have decision making capacity? Yes, Order is based on Patients wishes. Care Teams Pull Through Hooker Relationship Specialty Start Date End Date Daniel Hinkle MD PCP - General Family Medicine 09/19/16 [address] [place] [address]
--- OUTSIDE RECORDS SUMMARY | 2022-05-27 14:50 | XMS_ITS | Encounter Summary ---
:1960 Author Organization [facility] [place] [address] Care Team Providers Name Role Phone Daniel Hinkle MD Primary Care Provider Reason for Visit Reason Comments Medication Refill Encounter Details Date Type Department Care Team Description 12/14/2019 [place] [facility] [place]ric[place] MD [facility] [place] [address] RHEUMATOLOGY DEPT. [phone] [place], [place] [address] (Wo rk) Social History Tobacco Use Types Packs/Day Years Used Date Former Smoker Cigarettes 1.5 15 Quit: 08/14/18 93 Smokeless Tobacco: Never Used Alcohol Use Standard Drinks/Week Comments Yes 2 (1 standard drink = 0.6 oz pure alcoho l) [facility] Alcohol Habits Answer Date Recorded How [...] this encounter Miscellaneous Notes Telephone Encounter - Deya Jordan LPN - 12/16/2019 9:38 AM EDT Rx refill request: Pramipexole (Mirapex) 0.125 mg tablet. Take 1 tablet by mouth at bedtime for 2 to 4 days if not sleeping well enough, may increase to 2 tablets thereafter call if not better Last office visit: 11/04/2019 Last refill: 11/17/2018 Deya jordan LPN documented in this encounter Plan of Treatment Not on filedocumented as of this encounter Visit Diagnoses Not on filedocumented in this encounter Care Teams News Librarian Relationship Specialty Start Date End Date Daniel Hinkle MD PCP - General Family Medicine 09/19/16 [address] [place] [address] documented as of this encounter
--- OUTSIDE RECORDS SUMMARY | 2022-05-27 14:50 | XMS_ITS | Encounter Summary ---
:1960 Author Organization [facility] [place] [address] Care Team Providers Name Role Phone Daniel Hinkle MD Primary Care Provider Encounter Details Date Type Department Care Team Description 05/19/2020 Telephone Endocrinology at [facility] [address] Social History Tobacco Use Types Packs/Day [...] on filedocumented in this encounter Care Teams Barrel Rifler Broach Relationship Specialty Start Date End Date Daniel Hinkle MD PCP - General Family Medicine 09/19/16 [address] [place] [phone] documented as of this encounter
--- OUTSIDE RECORDS SUMMARY | 2022-05-27 14:50 | XMS_ITS | Encounter Summary ---
:1960 Author Organization [place] [address] Care Team Providers Name Role Phone Daniel Hinkle MD Primary Care Provider Reason for Visit Consultation (Routine) - Closed Specialty Diagnoses / Procedures Referred By Contact Refer red To Contact Endocrinology Diagnoses Conflagration not in building or structure Hypocalcemia Daniel Hinkle MD [facility] [address] [place] [id number] Referral ID Status Reason Start Date Expiration Date Visits V isits Requested Authorized [id number] Closed Consult, Test 02/03/2021 08/05/2021 6 6 & Treat [facility] PCP Updated and/or Approved Encounter Details Date Type Department Care Team Description 05/05/2021 Office Visit Endocrinology at [facility] Zita Dumont MD Hypocalcemia [facility] [place] [phone] ENDOCRINOLOGY DEPT [phone] [place], [place] [address] (Wo rk) Social History Tobacco Use Types Packs/Day Years Used Date Former Smoker Cigarettes 1.5 15 Quit: 08/14/18 93 Smokeless Tobacco: Never Used Alcohol Use Standard Drinks/Week Comments Yes 2 (1 standard drink = 0.6 oz pure alcoho l) [facility] Alcohol Habits Answer Date Recorded How often [...] on file documented as of this encounter Last Filed Vital Signs Vital Sign Reading Time Taken Comments Blood Pressure 139/57 05/05/2021 10:58 AM EDT Pulse 72 05/05/2021 10:58 AM EDT Temperature 35.9 ??C (96.7 ??F) 05/05/2021 10:58 AM EDT Respiratory Rate - - Oxygen Saturation 99% 05/05/2021 10:58 AM EDT Inhaled Oxygen Concentration - - Weight 94.1 kg (207 lb 6.4 oz) 05/05/2021 10:58 AM EDT Height 165.1 cm (5' 5) 05/05/2021 10:58 AM EDT Body Mass Index 34.51 05/05/2021 10:58 AM EDT documented in this encounter Progress Notes Zita Mitchell MD - 05/05/2021 11:00 AM EDT Images from the original note were not included. Endocrinology Consult Note Name: Francie Yusuf : 1960 Date: 05/05/21 Reason for Consult: Hypocalcemia HPI: Francie Yusuf is a 61 y.o. female with a PMH significant for Lupus, antiphospholipid syndrome, RA, OA, multinodular goiter s/p total thyroidectomy in 05/2012 who was referred to our office by Dr. Hinklefor evaluation of hypocalcemia. Patient's hypocalcemia has been ongoing since 2014, three years after her total thyroidectomy. She was instructed by her PCP to take calcium supplementation, 2 tabs daily, although she only takes 1. She is also on Vit D supplementation, 1,000 IU daily. She also takes Levothyroxine 125mcg daily and denies any thyroid problems. Her levels are followed by PCP. Overall she states she feels well. She denies any muscle weakness, muscle tetany, numbness or tingling in her lips. Review of Systems: all negative except for what is mentioned above Past Medical History: Diagnosis Date ??? Amblyopia OS CHILDHOOD WITH PATCHING, POOR RESULT ??? Amyloidosis cutis 2010 ??? Anemia, iron deficiency ??? Anti-phospholipid antibody syndrome ??? Arthritis ??? Asthma ??? Asthma 10/28/2010 ??? Cardiac tamponade 01/24/2015 ??? Chronic rhinitis 09/09/2015 ??? Disease of blood and blood forming organ ??? Dry mouth ??? Eczema ??? GERD (gastroesophageal reflux disease) ??? Herniated disc ??? Hyperlipidemia ??? Hypertension ??? 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 Pneumonia X2 ??? Sinusitis, chronic 10/28/2010 ??? Thyroid nodule Past Surgical History: Procedure Laterality Date ??? BONE MARROW BIOPSY ??? HYSTERECTOMY ??? PRG SOMATOSENSORY TEST, ANY/ALL PER. NERVES, TRUNK OR HEAD 06/01/2012 FACIAL NERVE MONITORING, SETUP performed by LINDA RANGEL at [facility] ??? PRO BONE MARROW ASPIRATION W/BX THROUGH SAME INCISION/SITE Right 06/09/2015 ([facility]) BONE MARROW ASP PERFORMED W/BX THRU BX INCISION performed by Farzaneh Valera MD at [facility] ??? PRO BONE MARROW BX, NEEDLE/TROCAR Right 06/09/2015 ([facility]) BONE MARROW,BIOPSY performed by Farzaneh Valera MD at [facility] ??? PRO THYROIDECTOMY 06/01/2012 THYROIDECTOMY, TOTAL OR COMPLETE performed by LINDA RANGEL at [facility] Family History Problem Relation Age of Onset ??? Hypertension Mother ??? Chronic Obstructive Pulmonary Disease Mother ??? Hypertension Brother ??? Rheumatoid Arthritis Father ??? Rheumatoid Arthritis Brother Social History Socioeconomic History ??? Marital status: Spouse name: Not on file ??? Number of children: Not on file ??? Years of education: Not on file ??? Highest education level: Not on file Occupational History ??? Occupation: unemployed Tobacco Use ??? Smoking status: Former Smoker Packs/day: 1.50 Years: 15.00 Pack years: 22.50 Types: Cigarettes Quit date: 08/14/1992 Years since quittin.7 ??? Smokeless tobacco: Never Used Substance and Sexual Activity ??? Alcohol use: Yes Alcohol/week: 2.0 standard drinks Types: 1 Glasses of wine, 1 Cans of beer per week Comment: occ ??? Drug use: No ??? Sexual activity: Never Partners: Male Other Topics Concern ??? Not on file Social History Narrative Francie lives with a friend. She has a son and daughter. She has two cats and a dog. There is some mold in the house. 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 Social Determinants of Health Financial Resource Strain: ??? Difficulty of Paying Living Expenses: Not on file Food Insecurity: ??? Worried About Running Out of Food in the Last Year: Not on file ??? Ran Out of Food in the Last Year: Not on file Transportation Needs: ??? Lack of Transportation (Medical): Not on file ??? Lack of Transportation (Non-Medical): Not on file Physical Activity: ??? Days of Exercise per Week: Not on file ??? Minutes of Exercise per Session: Not on file Allergies Allergen Reactions ??? Azathioprine Nausea And Vomiting ??? Mycophenolate Mofetil Nausea And Vomiting Vitals BP 139/57 Pulse 72 Temp 35.9 ??C (96.7 ??F) Ht 165.1 cm (5' 5) Wt 94.1 kg (207 lb 6.4 oz) SpO2 99% BMI 34.51 kg/m?? Physical Exam: General appearance: pleasant female pt, appears stated age, not in distress HEENT: anicteric, EOMI, moist mucus membranes Pulm: breathing comfortably in RA Abd: soft, non-tender, non-distended, +bowel sounds, no rebound or guarding Msk: FROM on all ext, negative Chvostek's sign, negative Trousseau's sign Neurological: Non-focal, 2+ DTRs Skin: ecchymotic lesions on lower ext (R>L) Labs: Vit D: 35 (04/22/20) Assessment and plan: Francie Yusuf is a 61 y.o. female with a PMH significant for Lupus, antiphospholipid syndrome, RA, OA, multinodular goiter s/p total thyroidectomy in 05/2012 who was referred to our office by Dr. Hinklefor evaluation of asymptomatic hypocalcemia. This is a puzzling case and I am not entirely sure of what process is leading to the hypocalcemia. This is unlikely related to her total thyroidectomy, since he calcium levels were within normal levelsfor three years after the surgery. Given her extensive hx of autoimmune conditions, it is possible that there is an autoimmune process driving the hypocalcemia, but if that was the case, the condition would be more severe. It is also possible that patient is experiencing Vit D insufficiency, which would lead to decreased calcium absorption from the intestines. Celiac disease, which is an autoimmune condition, can also lead to vit D insufficiency and should be checked on this patient (although she denies any history of gluten intolerance or iron deficiency anemia) Today we will recheck her PTH, phosphorus and calcium levels to rule out primary hypoparathyroidism.In addition we will check magnesium levels, which, if low can also lead to poor calcium absorption. Labs to be checked: - CMP - PTH - Magnesium and Phosp levels - Vit D - Tissue transglutaminase IgA Further management pending lab results. Thank you for allowing us participate in the care of this patient. Patient was discussed with Dr. Durham. Zita Mitchell, PGY4 Endocrinology Fellow Pager: [phone] Ke Durham MD - 05/05/2021 11:00 AM EDT I saw this patient with Dr Mitchell . I reviewed the torres portions of the history and physical exam, and reviewed pertinent lab data. I answered all patient questions. I was involved in all medical decision making and agree with this plan. documented in this encounter Plan of Treatment Not on filedocumented as of this encounter Results Tissue transglutaminase, IgA (05/05/2021 12:47 PM EDT) P athologist Signature TTG IgA Ab 0.1 0.1 - 10.0 [facility] Comment: Negative = <7 U/mL Equivocal = 7-10 U/mL Positive = >10 U/mL Specimen Anatomical Collection Method Collection Time Receive d Time (Source) Location / / Volume Laterality Blood 05/05/2021 12:47 05/06/2021 7:24 PM EDT AM EDT Resulting Agency Comment Spec In Lab Ke Durham MD IMMUNOLOGY ORDERABLES Performing Organization Address City/[facility]/ZIP Code Phon e Number [address] Vitamin D, 25-Hydroxy (05/05/2021 12:47 PM EDT) Patholo gist Method Time Signature 25-OH Vit D 34 21 - 100 [facility] Total ng/mL [facility] 25-OH Vit D Sufficient [facility]ORY Specimen Anatomical Collection Method Collection Time Receive d Time (Source) Location / / Volume Laterality Blood 05/05/2021 12:47 05/05/2021 1:02 PM EDT PM EDT Resulting Agency Comment Spec In Lab Ke Durham MD CHEMISTRY ORDERABLES Performing Organization Address City/[facility]/ZIP Code Phon e Number [address] Phosphorus (05/05/2021 12:47 PM EDT) P athologist Signature Phosphorus 4.1 2.5 - 4.5 [facility] mg/dL [facility] Specimen Anatomical Collection Method Collection Time Receive d Time (Source) Location / / Volume Laterality Blood 05/05/2021 12:47 05/05/2021 1:02 PM EDT PM EDT Resulting Agency Comment Spec In Lab Ke Durham MD CHEMISTRY ORDERABLES Performing Organization Address City/[facility]/ZIP Code Phon e Number [address] Magnesium (05/05/2021 12:47 PM EDT) P athologist Signature Magnesium 0.80 0.69 - 1.07 [facility] JIGAR mmol/L [facility] Specimen Anatomical Collection Method Collection Time Receive d Time (Source) Location / / Volume Laterality Blood 05/05/2021 12:47 05/05/2021 1:02 PM EDT PM EDT Resulting Agency Comment Spec In Lab Ke Durham MD CHEMISTRY ORDERABLES Performing Organization Address City/State/ZIP Code Phon e Number [address] PTH (05/05/2021 12:47 PM EDT) P athologist Signature PTH 22 15 - 65 [facility] pg/mL [facility] Specimen Anatomical Collection Method Collection Time Receive d Time (Source) Location / / Volume Laterality Blood 05/05/2021 12:47 05/05/2021 1:02 PM EDT PM EDT Resulting Agency Comment Spec In Lab Ke Durham MD CHEMISTRY ORDERABLES Performing Organization Address City/[facility] Code Phon e Number [address] Comprehensive metabolic panel (non-fasting) (05/05/2021 12:47 PM EDT) athologist Signature Glucose Lvl 128 65 - 199 [facility] mg/dL [facility] Comment: Diabetes: >=200 mg/dL plus symp toms BUN 14 8 - 18 mg/dL [facility] Creatinine 1.01 0.70 - 1.20 mg/dL [facility] Sodium 143 135 - 145 mmol/L [facility] Potassium 3.7 3.5 - 5.0 mmol/L [facility] Comment: Please note: ??Patients with WBC >100,00 0 may have falsely elevated Potassium levels. ??For accurate Potassium quantif ication in these patients send serum separator tube (gold top) for subsequent determinations. ??Contact the Clinical Chemistry Laboratory if there are any qu estions. Chloride 104 98 - 107 mmol/L [facility] CO2 28 22 - 31 mmol/L [facility] Anion Gap 11 5 - 15 mmol/L [facility] Calcium 9.0 8.5 - 10.5 mg/dL [facility] Total Protein 6.5 6.1 - 8.0 g/dL [facility] Albumin 4.2 3.2 - 5.2 g/dL [facility] AST 27 0 - 30 unit/L [facility] ALT 17 0 - 30 unit/L [facility] Alk Phos 87 35 - 105 unit/L [facility] Total Bilirubin 0.3 0.2 - 1.3 mg/dL [facility] Estimated GFR 61 >=60 mL/min/1.73 m?? [facility] Comment: This patient? s estimated glomerular filtration rate (eGFR) is between 61 mL/min/1.73 m2 (patients with less muscl e mass) and 71 mL/min/1.73 m2 (patients with more muscle mass) as determined by the CKD-EPI equation. Assessment of eGFR is not appropriate when creatinine concentrations are rapidly changing. For clinical decisions where creatinine clearance will affect therapy, a 24-hour urine creatinine clearance may b e advised. Assignment of CKD stage 1 - 5 for patien ts with an eGFR near the transition point between stages may be based on cli nical assessment of muscle mass and symptoms in addition to eGFR. Specimen Anatomical Collection Method Collection Time Receive d Time (Source) Location / / Volume Laterality Blood 05/05/2021 12:47 05/05/2021 1:02 PM EDT PM EDT Resulting Agency Comment Spec In Lab Ke Durham MD CHEMISTRY ORDERABLES Performing Organization Address City/State/ZIP [place] [address] documented in this encounter Visit Diagnoses Diagnosis Hypocalcemia documented in this encounter Care Teams Hull Grinder Relationship Specialty Start Date End Date Daniel Hinkle MD PCP - General Family Medicine 09/19/16 [address] [place] [id number] documented as of this encounter
--- OUTSIDE RECORDS SUMMARY | 2022-05-27 14:50 | XMS_ITS | Clinical Summary ---
:1960 Author Organization [facility] Address [address] [place] [address] Care Team Providers Name Role Phone Daniel Hinkle MD Primary Care Provider Social History Tobacco Use Types Packs/Day Years Used Date Never Assessed Sex Assigned at Date Recorded Not on file Plan of Treatment Health Maintenance Due Date Last Done Comments Hepatitis C Screen 1960 COVID-19 Vaccine (#1) 1960 Insurance Payer Benefit Plan Subscriber ID Effective Phone Address Typ e / Group Dates MEDICAID ACO MEDICAID ACO [id number] 2021-Pres [phone] [address] [place] [address] [facility] [id number] Care Teams Cupola Worker Relationship Specialty Start Date End Date Daniel Hinkle MD PCP - General 11/20/18 [address] [place], [place] [id number]
--- OUTSIDE RECORDS SUMMARY | 2022-05-27 14:50 | XMS_ITS | Encounter Summary ---
:1960 Author Organization [facility] [place] [address] Care Team Providers Name Role Phone Daniel Hinkle MD Primary Care Provider Reason for Referral Consultation (Routine) - Closed Specialty Diagnoses / Procedures Referred By Contact Refer red To Contact General Surgery Diagnoses Colonic fistula Patricio Lowe MD Wilson, Lauren R, MD [facility] RHEUMATOLOGY [place] [address] [place] [address] Fax: Referral ID Status Reason Start Date Expiration Date Visits V isits Requested Authorized [id number] Closed Consult, 03/18/2021 03/18/2022 3 3 Test & Treat Reason for Visit Reason Comments Follow-up Encounter Details Date Type Department Care Team Description 03/18/2021 Office Visit Rheumatology at [facility] Patricio Lowe [place] [address] RHEUMATOLOGY DEP T. [place], [place] [address] (Wo rk) Social History Tobacco Use Types Packs/Day Years Used Date Former Smoker Cigarettes 1.5 15 Quit: 08/14/18 93 Smokeless Tobacco: Never Used Alcohol Use Standard Drinks/Week Comments Yes 2 (1 standard drink = 0.6 oz pure alcoho l) [facility] Alcohol Habits Answer Date Recorded How [...] Sign Reading Time Taken Comments Blood Pressure 142/77 03/18/2021 9:19 AM EDT Pulse 69 03/18/2021 9:19 AM EDT Temperature 36.2 ??C (97.1 ??F) 03/18/2021 9:19 AM EDT Respiratory Rate 16 03/18/2021 9:19 AM EDT Oxygen Saturation 98% 03/18/2021 9:19 AM EDT Inhaled Oxygen Concentration - - Weight 94 kg (207 lb 3.2 oz) 03/18/2021 9:19 AM EDT wit h shoes Height 165.1 cm (5' 5) 03/18/2021 9:19 AM EDT Body Mass Index 34.48 03/18/2021 9:19 AM EDT documented in this encounter Patient Instructions Patient InstructionsPatricio Lowe MD - 03/18/2021 9:30 AM EDT 1. Renewed Plaquenil and Mirapex for [address] Chris referral 3. Follow up Ms. Andrea 1 year documented in this encounter Progress Notes Patricio Lowe MD - 03/18/2021 9:30 AM EDT Subjective: Patient ID: Francie Yusuf is a 61 y.o. female last seen in 2019 for inactive SLE and APS treated with coumadin in the past from [id number] stopped after a bout of hemorrhagic pericarditis. A brief summary: 1. 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 Anti-Cardiolipin. IgG and IgM positive, Anti- Beta 2 Glycoprotein positive. IgM 82, lupus Anticoagulant negative and YELENA 1:640. No clots); Only on HCQ since 2014 2. 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 scan report from evaluation of LLQ abd pain: diverticulitis of mid- descending colon without abscess. 5. RLS despite gabapentin, so we switched to Mirapex. 07.16.19 right TKR Interval History: Ms. Yusuf is seen in ~16 month follow up in the context of lupus arthropathy, pneumonitiis, restless leg syndrome, diverticulitis, cutaneous amyloid followed in hematology, taking pramipexole, HCQ, ASA and Ibuprofen. She comes in today with a curious story of apparently developing colonic vaginal fistula approximately 1 year ago (patient is a very vague historian and I have no outside records).it appears that she developed stool coming out of her vagina approximately 1 year ago in the setting of known diverticulitis. 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 The patient rejected this choosing to not have it repaired. Over the subsequent weeks tomonths the amount of drainage coming through her vagina markedly decreased. Today she reports rare spotting and no evidence of fecal flow or discharge. There is no urinary symptoms or signs either. CATscan was apparently done but I do not have a copy of this either. Apart for some vague malaise (which is longstanding) she feels otherwise well and is coming in todayto discuss my opinion about her getting a second opinion here at [facility]. Other new issues include a low calcium following an operation with the consideration of hypoparathyroidism raised by her referring physician,. This is prompted an endocrine referral. Following addendum below provided on March 19, 2021 from [facility] of emergency room visits. First it appears there was an appointment in the emergency room on May 08, 2020 and was treated with cefuroxime and Flagyl. She was seen by Dr. Dyan Barroso, but there is no consult note nor mention of the CT scan that the patient reported.. Second visit to the emergency room was on March 10, 2021 when she came in with a headache right-sidedfor a few days. Laboratory data was normal CBC electrolytes. This pain was mostly centered behind her right eye and a CT scan showed extensive small vessel ischemic change or sequela of inflammation inthe white matter. This is been present in the past. The other issues from her last visit are largely stable. Although she carries a diagnosis of lupus there has been no significant activity for years while being maintained on hydroxychloroquine. These include 1. Recovering from R TKR suboptimal she says, but can do all the walking 'I need to do' 2. Sense of well-being good and 'breathing not bad' not always uses them 3. RLS, sleep distubance: Better on Mirapex with good control 3. 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 Recurrent diverticulitis: See above, 5. 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 Valera, stable 2019 6. No sinusitis sx Review of Systems Constitutional: No fevers, chills, malaise episodes seems less Skin: no rashes no Raynauds HEENT: lessening of eye sx, still having oral sicca sx, change in hearing, taste sinus pain, HANSEN, change in taste. Respiratory: + chest pain, no shortness of breath CV: no NOBLE, angina sx, claudication Back: No sciatica, pain with standing GI: no abd pain, normal bowel movements : no dysuria, normal voiding, no nocturia Neuro: no focal deficit. HPI: She presented in January 2015 with 3 week h/o sharp chest pain 01/02/2015 with two ED visits at OSH was given Aspirin and Ibuprofen for suspicion of costocondritis. She presented to OSH (01/22/2015) with dyspnea, chest pain and a INR of 9.2. Cardiac tamponade was identified on CXR and echocardiogram. She was transferred to [facility] s/p IR guided drainage of 70cc of serosanguinous fluid and reversal of INR with FFP and Vitamin K. Unclear etiology of elevated INR- no recent antibiotics, no change in diet, no new vitamin or herbal supplements. seen in annuals f/u for her antiphospholipid antibody syndrome treated with Coumadin since 2001 for HANSEN, facial twitching and dysesthesias, and white matter changes on MRI with symptomatic improvement with treatment. Low titer YELENA 1:80 centromere at 2000evaluation increasing to 1:640 in 2008 and associated with anti-mitochondrial pattern that was confirmed last week. 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 Whitney and Caesar since 2009 Hypocomplementemia noted at that time, which was also noted last week. Amyloid on LE has now gone, last lesion was earlier this spring. Is being aggressively monitored by Dr. Maynard with CT scan chest/abd/neck,labs. Ig levels stable. Elevated kappa/lambda light chains. She was placed on Aspirin 81 mg/d by Hematology in January 2015. Other issues: 1. LE swelling worse in summer months 2. Plantar pain in am worse upon rising or standing 3. Degenerative cervical spine disease with X-rays: Pain,stiffness or numbness, without benefit for cervical traction, right-sided 4. RA has been raised as a concern with positive RF 55 by PCP. 5. thyroid surgery for nodules in June 01, 2012. Histology was benign. Feeling pretty good. No headaches facial twitching, dysesthesias. No obvious emergence of symptoms. Other Medical Problems 1. Cutaneous Amyloid: stable, negative 2. Venous stasis disease Physical Examination: General-Well developed well nourished who is alert and in no apparent distress at rest. Skin-No clubbing, cyanosis, rubor, edema, rash HEENT: No temporal artery, sinus or TMJ tenderness.Normal parotid, submental and submandibular nodes Neck-Supple no bruits Chest: clear to auscultation, good air movement without wheezes Cor: RR with 2/6 systolic ejection murmur best heard at the base and apex Abdomen: Normal bowel sounds nondistended nontender no rebound no masses Back: No tenderness to punch, normal SLR Ext: Extremities warm w// normal pulses Musculoskeletal: Trigger points not present. Shoulders: FROM, no AC/subacromial tenderness except for some mild symptoms with pressure over the subacromial space on the right only. Elbows: Full motion, no joint or epicondylar swelling or tenderness. Wrists: Full motion, no swelling, no warmth, no tenderness over radiocarpal or ulnocarpal joints. Hands: Normal environmental project manager and claw. SJC/TJC 0/0. Hips: Full motion, no trochanteric tenderness Knees: Full motion, no swelling, no popliteal or joint line tenderness. No patellar tenderness or crepitance. Ankles: No warmth, swelling, normal motion. No Achilles or plantar fascia tenderness. Feet: No deformity. Normal MTPJs no compression tenderness. Neuro: No focal weakness Assessment and Plan: 1. Patient with a history of recurrent diverticulitis presented 1 year ago with sounds like a colonic vaginal fistula with spontaneous resolution in the face of her lack of interest in surgery. The patient would like an evaluation by general surgery here at [facility] and I will refer to Natalya Chris in thedepartment of general surgery. I will also request outside labs and [facility]. Similarly I do not have imaging but will defer on these until we see whatinformation is available and she has a chance to see Dr. Chris Other issues are seemingly under control 1. Lupus pneumonitis seems inactive off steroids for years 2. 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 Recovery from Right TKR 4. Cutaneous amyloid with labs 5. No APS recurrence off anticoagulants x 5+ years Plan 1. Request outside labs, imaging, and emergency room visit information from [facility] 2. Make referral to Dr. Chris in general surgery for evaluation and treatment of colovaginal fistula 3. Allow endocrine and hematology referrals to play through terms of any laboratory evaluations. 4. Schedule follow-up with transition of care to Ms. Andrea for future rheumatology care in 11 months 5. Renew Mirapex at bedtime and hydroxychloroquine 200 mg a day for 1 year. Level 5 follow-up 60 minutes in review of information in chart, attempting to get outside information, getting a history, performing a physical exam, and writing the following note. Patricio Lowe M.D. Addended information listed above in the history and physical was received late in the day March 18 and has been integrated in the note and included in the medical record. There is not much clarity provided, except that the second emergency room visit in late February was apparently due for headache and right eye pain that she was unable to remember when she came to see me yesterday. Although she seems cognitively intact, this lack of recall generates some concern. documented in this encounter Plan of Treatment Scheduled Referrals Name Type Priority Associated Diagnoses Order S chedule Referral to Outpatient Referral Routine Colonic fistula Order ed: General Surgery 03/18/2021 documented as of this encounter Visit Diagnoses Diagnosis Colonic fistula Fistula of intestine, excluding rectum a nd anus documented in this encounter Care Teams Spiritual Care Coordinator Relationship Specialty Start Date End Date Daniel Hinkle MD PCP - General Family Medicine 09/19/16 [place] [id number] documented as of this encounter
--- OUTSIDE RECORDS SUMMARY | 2022-05-27 14:50 | XMS_ITS | Encounter Summary ---
:1960 Author Organization [facility] [place] [address] Care Team Providers Name Role Phone Daniel Hinkle MD Primary Care Provider Encounter Details Date Type Department Care Team Description 03/10/2021 Telephone Rheumatology at [facility] [address] Social History Tobacco Use Types Packs/Day [...] this encounter Miscellaneous Notes Telephone Encounter - Kirsten Amezcua - 03/10/2021 10:19 AM EDT VM left with pt to resched bump 8/2 appt to earlier that day or next available date with Dr. Lowe documented in this encounter Plan of Treatment Not on filedocumented as of this encounter Visit Diagnoses Not on filedocumented in this encounter Care Teams Grounds Caretaker Relationship Specialty Start Date End Date Daniel Hinkle MD PCP - General Family Medicine 09/19/16 [address] [place] [address] documented as of this encounter
--- OUTSIDE RECORDS SUMMARY | 2022-05-27 14:50 | XMS_ITS | Encounter Summary ---
:1960 [place] [address] Care Team Providers Name Role Phone Daniel Hinkle MD Primary Care Provider Encounter Details Date Type Department Care Team Description 05/05/2021 Laboratory Appointment Lab [facility] [place] [address] Social History Tobacco Use Types Packs/Day [...] Name Priority Date/Time Associated Diagnosis Comme nts HC PARATHYROID Routine 05/05/2021 12:47 Hypocalcemia Results f or this HORMONE(PTH INTACT PM EDT procedure are in the results section. HC VENIPUNCTURE Routine 05/05/2021 12:47 Hypocalcemia Results for this PM EDT procedure are i n the results section. HC VITAMIN D TOTAL-25 Routine 05/05/2021 12:47 Hypocalcemia Re sults for this HYDROXY PM EDT procedure are i n the results section. HC PHOSPHORUS, SERUM Routine 05/05/2021 12:47 Hypocalcemia Res ults for this PM EDT procedure are i n the results section. HC MAGNESIUM, SERUM Routine 05/05/2021 12:47 Hypocalcemia Resu lts for this PM EDT procedure are i n the results section. COMPREHENSIVE Routine 05/05/2021 12:47 Hypocalcemia Results fo r this METABOLIC PANEL PM EDT procedure ar e in (NON-FASTING) the results section. documented in this encounter Results Comprehensive metabolic panel (non-fasting) (05/05/2021 12:47 PM EDT) athologist Signature Glucose Lvl 128 65 - 199 [facility] mg/dL [facility] Comment: Diabetes: >=200 mg/dL plus symp toms BUN 14 8 - 18 mg/dL [facility] Creatinine 1.01 0.70 - 1.20 mg/dL [facility] Sodium 143 135 - 145 mmol/L [facility] Potassium 3.7 3.5 - 5.0 mmol/L [facility] Comment: Please note: ??Patients with WBC >100,00 0 may have falsely elevated Potassium levels. ??For accurate Potassium quantif ication in these patients send serum separator tube (gold top) for subsequent determinations. ??Contact the Clinical Chemistry Laboratory if there are any qu estions. Chloride 104 98 - 107 mmol/L [facility] CO2 28 22 - 31 mmol/L [facility] Anion Gap 11 5 - 15 mmol/L [facility] Calcium 9.0 8.5 - 10.5 mg/dL [facility] Total Protein 6.5 6.1 - 8.0 g/dL [facility] Albumin 4.2 3.2 - 5.2 g/dL [facility] AST 27 0 - 30 unit/L [facility] ALT 17 0 - 30 unit/L [facility] Alk Phos 87 35 - 105 unit/L [facility] Total Bilirubin 0.3 0.2 - 1.3 mg/dL [facility] Estimated GFR 61 >=60 mL/min/1.73 m?? [facility] Comment: This patient? s estimated [...] Organization Address City/State/[place] [address] PTH (05/05/2021 12:47 PM EDT) P athologist Signature PTH 22 15 - 65 [facility] pg/mL [facility] Specimen Anatomical Collection Method Collection Time Receive d Time (Source) Location / / Volume Laterality Blood 05/05/2021 12:47 05/05/2021 1:02 PM EDT PM EDT Resulting Agency Comment Spec In Lab Ke Durham MD CHEMISTRY ORDERABLES Performing Organization Address City/State/[place] [address] Phosphorus (05/05/2021 12:47 PM EDT) P athologist Signature Phosphorus 4.1 2.5 - 4.5 [facility] mg/dL [facility] Specimen Anatomical Collection Method Collection Time Receive d Time (Source) Location / / Volume Laterality Blood 05/05/2021 12:47 05/05/2021 1:02 PM EDT PM EDT Resulting Agency Comment Spec In Lab Ke Durham MD CHEMISTRY ORDERABLES Performing Organization Address City/State/ZIP Code Phon e Number [address] Magnesium (05/05/2021 12:47 PM EDT) P athologist Signature Magnesium 0.80 0.69 - 1.07 [facility] mmol/L [facility] Specimen Anatomical Collection Method Collection Time Receive d Time (Source) Location / / Volume Laterality Blood 05/05/2021 12:47 05/05/2021 1:02 PM EDT PM EDT Resulting Agency Comment Spec In Lab Ke Durham MD CHEMISTRY ORDERABLES Performing Organization Address City/State/ZIP Code Phon e Number [address] Vitamin D, 25-Hydroxy (05/05/2021 12:47 PM EDT) Patholo gist Method Time Signature 25-OH Vit D 34 21 - 100 [facility] Total ng/mL [facility] 25-OH Vit D Sufficient [facility] LABORATORY Specimen Anatomical Collection Method Collection Time Receive d Time (Source) Location / / Volume Laterality Blood 05/05/2021 12:47 05/05/2021 1:02 PM EDT PM EDT Resulting Agency Comment Spec In Lab Ke Durham MD CHEMISTRY ORDERABLES Performing Organization Address City/State/[place] [address] Tissue transglutaminase, IgA (05/05/2021 12:47 PM EDT) P athologist Signature TTG IgA Ab 0.1 0.1 - 10.0 [facility] u/ml [facility] Comment: Negative = <7 U/mL Equivocal = 7-10 U/mL Positive = >10 U/mL Specimen Anatomical Collection Method Collection Time Receive d Time (Source) Location / / Volume Laterality Blood 05/05/2021 12:47 05/06/2021 7:24 PM EDT AM EDT Resulting Agency Comment Spec In Lab Ke Durham MD IMMUNOLOGY ORDERABLES Performing Organization Address City/State/[place] [address] documented in this encounter Visit Diagnoses Diagnosis Hypocalcemia documented in this encounter Care Teams Garage Door Technician Relationship Specialty Start Date End Date Daniel Hinkle MD PCP - General Family Medicine 09/19/16 [address] [place] [address] documented as of this encounter
--- OUTSIDE RECORDS SUMMARY | 2022-05-27 14:50 | XMS_ITS | Encounter Summary ---
:1960 Author Organization [facility] [place] [address] Care Team Providers Name Role Phone Daniel Hinkle MD Primary Care Provider Reason for Visit Reason Onset Date Comments Questions 10/16/2020 Encounter Details Date Type Department Care Team Description 10/16/2020 Telephone Rheumatology at [facility] Juan Waters, [place] [address] Social History Tobacco Use Types Packs/Day [...] this encounter Miscellaneous Notes Telephone Encounter - Juan Waters RN - 10/16/2020 3:53 PM EST Patient calls and asks if there are any contraindications from a Rheumatological standpoint to receiving covid vaccation. documented in this encounter Plan of Treatment Not on filedocumented as of this encounter Visit Diagnoses Not on filedocumented in this encounter Care Teams Cow Washer Relationship Specialty Start Date End Date Daniel Hinkle MD PCP - General Family Medicine 09/19/16 [place] [address] documented as of this encounter
--- OUTSIDE RECORDS SUMMARY | 2022-05-27 14:50 | XMS_ITS | Encounter Summary ---
:1960 Author Organization [facility] Address [address] [place] [address] Care Team Providers Name Role Phone Daniel Hinkle MD Primary Care Provider Encounter Details Date Type Department Care Team Description 05/08/2020 Lab Requisition [facility] Outr Resulting Lab, Pathology & Laboratory Provider [facility] [address] [place] [address], [place] [id number] Social History Tobacco Use Types Packs/Day Years Used Date Never Assessed Sex Assigned at Date Recorded Not on file documented as of this encounter Plan of Treatment Not on filedocumented as of this encounter Procedures Procedure Name Priority Date/Time Associated Diagnosis Comme nts COVID-19 TEST [facility] Today 05/08/2020 19:40 LAB PCR EDT COVID-19 TESTING Routine 05/08/2020 19:40 Results for this EDT procedure are i n the results section. documented in this encounter Results COVID-19 TEST [facility] LAB PCR (05/08/2020 19:40 EDT) Specimen Swab - Entire nasopharynx (body structur e) Performing Organization Address City/State/ZIP Code Phon e Number [facility] [address] [place] [address] SERVICES COVID-19 TESTING (05/08/2020 19:40 EDT) COVID-19 rt-PCR Negative Negative [facility] Result Comment: [facility] This test has not been FDA c leared or approved. This test has been authorized by FDA under an EUA for use by authorized laboratories. This test has been authorized only for detection of nucleic acid fro SERVICES m 2019-nCo, not for any oth er viruses or pathogens. This test is only authorized for the duration of the declaration that circumstances exist justifying the authorization of emergency use of in vitro d iagnostic tests for detectio n and/or diagnosis of 2019-nCoV under section 564(b)(1) of Act, 21 U.S.C ?? 360bbb-3(b) (1), unless the authorization is terminated or revoked sooner. Negative results do not prec lude 2019-nCoV infection and should not be used as the sole basis for treatment or other patient management decisions. Negative results must be combined with clinical observa tions, patient history, and epidemiological informatio n. Performed on the ClearDATAher Fusion instrument Performing Lab [place] [facility] Lab [facility] SERVICES Specimen Swab Performing Organization Address City/State/ZIP Code Phon e Number [facility] [address] [place] [address] SERVICES documented in this encounter Visit Diagnoses Not on filedocumented in this encounter Care Teams Electrician Telephone Relationship Specialty Start Date End Date Daniel Hinkle MD PCP - General 11/20/18 [address] [place], [place] [id number] documented as of this encounter
--- OUTSIDE RECORDS SUMMARY | 2022-05-27 14:50 | XMS_ITS | Encounter Summary ---
:1960 Author Organization [facility] [place] [address] Care Team Providers Name Role Phone Daniel Hinkle MD Primary Care Provider Reason for Visit Reason Onset Date Comments Medication Refill 12/21/2020 Medication Refill 12/22/2020 Encounter Details Date Type Department Care Team Description 12/21/2020 [place] [facility] [place] Jeff, [place] [address] Social History Tobacco Use Types Packs/Day Years Used Date Former Smoker Cigarettes 1.5 15 Quit: 08/14/18 93 Smokeless Tobacco: Never Used Alcohol Use Standard Drinks/Week Comments Yes 2 (1 standard drink = 0.6 oz pure alcoho l) [facility] Alcohol Habits Answer Date Recorded How often [...] this encounter Miscellaneous Notes Telephone Encounter - Derek Jeff, RN - 12/21/2020 9:03 AM EDT RTC to Francie and she is requesting a refill for Pramipexole. documented in this encounter Plan of Treatment Not on filedocumented as of this encounter Visit Diagnoses Not on filedocumented in this encounter Care Teams Airfield Services Officer Relationship Specialty Start Date End Date Daniel Hinkle MD PCP - General Family Medicine 09/19/16 [address] [place] [address] documented as of this encounter
--- OUTSIDE RECORDS SUMMARY | 2022-05-27 14:50 | XMS_ITS | Encounter Summary ---
:1960 Author Organization [facility] [place] [address] Care Team Providers Name Role Phone Daniel Hinkle MD Primary Care Provider Reason for Visit Reason Onset Date Comments Medication Refill 06/19/2020 Medication Refill 06/22/2020 Medication Refill 06/25/2020 Encounter Details Date Type Department Care Team Description 06/19/2020 [place]ill [place] [facility] [place] Jeff, [place] [address] Social History Tobacco Use Types Packs/Day Years Used Date Former Smoker Cigarettes 1.5 15 Quit: 08/14/18 93 Smokeless Tobacco: Never Used Alcohol Use Standard Drinks/Week Comments Yes 2 (1 standard drink = 0.6 oz pure alcoho l) [facility] Alcohol Habits Answer Date Recorded How [...] Telephone Encounter - Derek Jeff, RN - 06/19/2020 2:56 PM EST RTC to Francie and let her know that I will send her refill request to Dr. Lowe. documented in this encounter Plan of Treatment Not on filedocumented as of this encounter Visit Diagnoses Not on filedocumented in this encounter Care Teams Diesel Powerplant Mechanic Relationship Specialty Start Date End Date Daniel Hinkle MD PCP - General Family Medicine 09/19/16 [address] [place] [address] documented as of this encounter
--- OUTSIDE RECORDS SUMMARY | 2022-05-27 14:50 | XMS_ITS | Encounter Summary ---
:1960 Author Organization [facility] [place] [address] Care Team Providers Name Role Phone Daniel Hinkle MD Primary Care Provider Encounter Details Date Type Department Care Team Description 01/25/2022 Telephone Rheumatology at [facility] [place] [address] Social History Tobacco Use Types Packs/Day [...] this encounter Miscellaneous Notes Telephone Encounter - Yelena Meehan - 01/25/2022 3:03 PM EDT From recall list- called for follow up, no answer, left message, sending letter documented in this encounter Plan of Treatment Not on filedocumented as of this encounter Visit Diagnoses Not on filedocumented in this encounter Care Teams Poll Watcher Relationship Specialty Start Date End Date Daniel Hinkle MD PCP - General Family Medicine 09/19/16 [address] [place] [phone] documented as of this encounter
--- OUTSIDE RECORDS SUMMARY | 2022-05-27 14:51 | XMS_ITS | Encounter Summary ---
:1960 Author Organization [facility] [place] [address] Care Team Providers Name Role Phone Daniel Hinkle MD Primary Care Provider Reason for Visit Reason Comments Right Knee Pain Encounter Details Date Type Department Care Team Description 04/26/2017 Office Visit [place] [facility] [place] Primary osteoarthritis [facility] MD [place] [address] [facility] [phone] [place] [address] Social History Tobacco Use Types Packs/Day Years Used Date Former Smoker Cigarettes 1.5 15 Quit: 08/14/18 93 Smokeless Tobacco: Never Used Alcohol Use Standard Drinks/Week Comments Yes 2 (1 standard drink = 0.6 oz pure alcoho l) [facility] Alcohol Habits Answer Date Recorded How often [...] Sign Reading Time Taken Comments Blood Pressure 130/51 04/26/2017 10:52 AM EDT Pulse 67 04/26/2017 10:52 AM EDT Temperature - - Respiratory Rate - - Oxygen Saturation - - Inhaled Oxygen Concentration - - Weight 89.4 kg (197 lb) 04/26/2017 10:52 AM EDT Height 165.1 cm (5' 5) 04/26/2017 10:52 AM EDT Body Mass Index 32.78 04/26/2017 10:52 AM EDT documented in this encounter Progress Notes Matteo Argueta PA - 04/26/2017 10:40 AM EDT ARTHROPLASTY HISTORY/PREVIOUS KNEE SURGERY: 1. None HPI: 57 yo female returns. She has known OA to her right knee. She has had several years of progressive symptoms. She describes predominantly night time pain. She has pain to the knee and down her lower leg. She does notice some swelling. ROM is well maintained. She does not describe instability. She uses ibuprofen regularly. She has been doing PT with minimal benefit. She is also dealing with sciatic type pain to the contralateral leg and is planning MRI tomorrow. QUESTIONNAIRE RESPONSES: General Health, Prior Treatments, PreExisting Condition, Health Habits, About You 04/26/2017 PROMIS-10 General Health Fair PROMIS-10 Quality of Life Fair PROMIS-10 Physical Health Fair PROMIS-10 Mental Health Fair PROMIS-10 Social Activity Fair PROMIS-10 Everyday Activities Moderately PROMIS-10 Pain 9 PROMIS-10 Fatigue Severe PROMIS-10 Social Roles Fair PROMIS-10 Anxious or Depressed Often PROMIS PHYSICAL SCORE (range 16-68) 32.4 PROMIS MENTAL SCORE (range 21-68) 33.8 Treatments Tried Heat and ice therapy KOOS JR Scores - TKA Grade - Alzheimers or dementia - Cirrohosis or liver disease - HIV/AIDS - Pain in more than one joint in legs - Back or neck pain - Heart attack - Heart failure - Unclog/bypass leg arteries - Stroke, blood clot, TIA - Asthma - Take medication for asthma - Emphysema, chronic bronchities, or COPD - Stomach ulcers/peptic ulcer disease - Diabetes - Poor kidney function - Rheumatic condtions - Take medications for rheumatic conditions - Cancer - Weight (lbs) - Height (feet) - Height (Inches) - BMI - Ever used tobacco products - Tobacco frequency - WHO - Tobacco Advice - Ever used alcoholic beverages - Alcohol frequency - WHO - Alcohol Advice - Live Alone - Marital situation - Schooling - Combined Household Income - # People Supported - [place], , - Race - Health Literacy - Currently working - Not working because: - Orthopeadics [facility] Response 02/22/2017 KOOS JR Scores 50.01 Spine [facility] Response 02/22/2017 KOOS JR Scores 50.01 PHYSICAL EXAM: Ambulatory without assist or antalgia. There eis valgus deformity to the right knee. No pain or laxity with varus and valgus stress. Flexion to 120 today. No jointline tenderness. Skin is intact. ASSESSMENT: Right knee pain, OA PLAN: We discussed her knee and the progressive course of OA. Indications for intervention discussed. The risks and limitations of injections were reviewed. We'll proceed with cortisone injection today and see her again as needed. Procedure: Time-out was performed. After consent was obtained, using sterile technique the right knee was prepped and 3 ml's of 1% plain Lidocaine used to anesthetize the needle tract into the joint from the suprapatellar approach. The knee joint was entered and 35 mg kenalog and 2 ml plain Lidocaine was then injected and the needle withdrawn. The procedure was well tolerated. The patient is asked tocontinue to rest the knee for a few more days before resuming regular activities. It may be more painful for the first 1-2 days. Watch for fever, or increased swelling or persistent pain in knee. Call or return to clinic prn if such symptoms occur or the knee fails to improve as anticipated. KOLE GONZALEZ documented in this encounter Plan of Treatment Not on filedocumented as of this encounter Visit Diagnoses Diagnosis Primary osteoarthritis of right knee Primary localized osteoarthrosis, lower leg documented in this encounter Administered Medications Inactive Administered Medications - up to 3 most recent administrations Medication Order MAR Action Action Date Dose Rate Site BUpivacaine (PF) (MARCAINE) 0.25 % Given 04/26/2017 11:32 AM EDT 5 mg (2.5 mg/mL) injection 5 mg 5 mg, Intra-articular, ONCE, 1 dose, On Mon04/26/17 at 1200, Routine lidocaine (XYLOCAINE) 10 mg/mL (1 %) Given 04/26/2017 11:32 AM E DT 50 mg injection 50 mg 50 mg, Subcutaneous, ONCE, 1 dose, On Mon04/26/17 at 1200, Routine triamcinolone acetonide (KENALOG) injection Given 04/26/2017 11:32 AM EDT 35 mg 35 mg 35 mg, Intra-articular, ONCE, 1 dose, On Mon04/26/17 at 1200, Routine documented in this encounter Care Teams Finance Vice President Relationship Specialty Start Date End Date Daniel Hinkle MD PCP - General Family Medicine 09/19/16 [address] [place] [address] documented as of this encounter
--- OUTSIDE RECORDS SUMMARY | 2022-05-27 14:51 | XMS_ITS | Encounter Summary ---
:1960 Author Organization [facility] [place] [address] Care Team Providers Name Role Phone Daniel Hinkle MD Primary Care Provider Encounter Details Date Type Department Care Team Description 12/30/2016 Telephone [place]ology [place] [facility] [place] [address] Social History Tobacco Use Types Packs/Day Years Used Date Former Smoker Cigarettes 1.5 15 Quit: 08/14/18 93 Smokeless Tobacco: Never Used Alcohol Use Standard Drinks/Week Comments Yes 2 (1 standard drink = 0.6 oz pure alcoho l) per week Alcohol Habits Answer Date Recorded How often do you have a drink containing alcohol? Not asked How many drinks containing alcohol do you have on a typical Not asked day when you are drinking? How often do you have six or more drinks on one occasion? No t asked Comment: per week 01/17/2011 Sex Assigned at Date Recorded Not on file documented as of this encounter Miscellaneous Notes Telephone Encounter - Marisa Parikh LPN - 12/30/2016 10:53 AM EDT RTC to Francie who is tapering off her prednisone 1mg. She is wondering if she still stays on the bactrim. I would assume since the order is written for #90 with one refill, but I am double checking with Dr Lowe. Please advise. +++++++++++++++++++++ Yes on the bactrim for now Thanks for asking wr ++++++++++++++++ I have called to Let Francie know. documented in this encounter Plan of Treatment Not on filedocumented as of this encounter Visit Diagnoses Not on filedocumented in this encounter Care Teams Extension Agent Relationship Specialty Start Date End Date Daniel Hinkle MD PCP - General Family Medicine 09/19/16 [address] [place] [phone] documented as of this encounter
--- OUTSIDE RECORDS SUMMARY | 2022-05-27 14:51 | XMS_ITS | Encounter Summary ---
:1960 Author Organization [facility] [place] [address] Care Team Providers Name Role Phone Daniel Hinkle MD Primary Care Provider Reason for Visit Reason Onset Date Comments Other 10/13/2017 Encounter Details Date Type Department Care Team Description 10/13/2017 Telephone [place] [facility] [place] Kristy [place] [address] Social History Tobacco Use Types Packs/Day [...] this encounter Miscellaneous Notes Telephone Encounter - Kristy Asher RN - 10/17/2017 10:15 AM EST Images from the original note were not included. October 17, 2017 Patricio Lowe MD to Me ?? 9:58 AM I think she should stay off the methotrexate, low dose ASA and the ibuprofen until further notice tomake sure they are not a factor in her abdominal pain. ??She can stay on the Hydroxychloroquine. ??After her symptoms remit, she can start the low dose aspirin but stay off the methotrexate and ibuprofen. ?? If she wishes, we can schedule a f/u visit with me in 4-6 weeks to see how her lupus is doing off ofthese medications Patricio Lowe I spoke with Francie and she verbalizes understanding of Holding Methotrexate, ASA, and Ibuprofen. She will continue Plaquenil. Francie has concerns about not having the ASA for APS and possibly developing a blood clot. I advised Francie to call me when her symptoms subside so she can restart ASA as soon as possible. Francie would like to schedule an appointment for 4-6 weeks and will call sooner if she flares. Will ask Dr. Lowe if he has any other recommendations about ASA as holding it concerns Francie. Telephone Encounter - Kristy Asher RN - 10/17/2017 9:07 AM EST I spoke with Francie today and she reports that she went to ER in [facility] yesterday for severe abdominal pain. Francie states Diverticulitis has returned and she was started on Flagyl 500 mg TID and Cipro 500 mg BID for 10 days. I have asked Francie to have reports faxed to this office. I will check in with Dr. Lowe about recommendations he may have in regards to medications and treatment. Telephone Encounter - Kristy Asher RN - 10/13/2017 4:38 PM EST Francie reports last Monday she restarted Methotrexate and Monday evening she started having lower abdominal stomach pain and wants to know if she should take her Methotrexate today. RTC to Francie, she reports the above but states she was also seen by PCP and she had a Pelvic Ultrasound done today for potential Ovary problem. Francie reports that PCP did not think it was diverticulitis. I advised Francie to hold off on the MTX until she has the results of Pelvic Ultrasound. Francie will call me with an update next week. Will ask Dr. Lowe if he has any further recommendations. Message Received: 2 days ago ? Patricio Lowe MD sent to Kristy Asher, RN ? Caller: Unspecified (3 days ago, ??4:26 PM) ? Nothing to add. ??If the workup is unclear, have her resume the methotrexate next week. ??If she gets abdominal pain again, we can go to injectable MTX-she needs the MTX Patricio Lowe documented in this encounter Plan of Treatment Not on filedocumented as of this encounter Visit Diagnoses Not on filedocumented in this encounter Care Teams Microbiology Coordinator Relationship Specialty Start Date End Date Daniel Hinkle MD PCP - General Family Medicine 09/19/16 [place] [phone] documented as of this encounter
--- OUTSIDE RECORDS SUMMARY | 2022-05-27 14:51 | XMS_ITS | Encounter Summary ---
:1960 Author Organization [facility] [address] Care Team Providers Name Role Phone Daniel Hinkle MD Primary Care Provider Reason for Visit Reason Onset Date Comments Medication Refill 11/28/2017 Encounter Details Date Type Department Care Team Description 11/28/2017 Refill [place] [facility] [place]io Lowe, Restless legs syndrome [facility] [place] [address] [facility] [phone] RHEUMATOLOGY [place], [place] [address] (Wo rk) Social History Tobacco Use Types Packs/Day Years Used Date Former Smoker Cigarettes 1.5 15 Quit: 08/14/18 93 Smokeless Tobacco: Never Used Alcohol Use Standard Drinks/Week Comments Yes 2 (1 standard drink = 0.6 oz pure alcoho l) [facility] Alcohol Habits Answer Date Recorded [...] as of this encounter Visit Diagnoses Diagnosis Restless legs syndrome Restless legs syndrome (RLS) documented in this encounter Care Teams Emergency Department Rn Relationship Specialty Start Date End Date Daniel Hinkle MD PCP - General Family Medicine 09/19/16 [address] [place] [phone] documented as of this encounter
--- OUTSIDE RECORDS SUMMARY | 2022-05-27 14:51 | XMS_ITS | Encounter Summary ---
:1960 Author Organization [facility] Address [address] [place] [address] Care Team Providers Name Role Phone Daniel Hinkle MD Primary Care Provider Encounter Details Date Type Department Care Team Description 06/12/2017 Office Visit Rheumatology at [facility] Patricio Lowe (dyspnea on exertion); [facility] Sravan Other systemic lupus erythematosus with lung involvement; [address] [facility] Diverticulitis of large inte mauri without perforation or abscess with bleeding; [place] [address] CENTER Idiopathic peripheral neuropathy; [phone] RHEUMATOLOGY Insomnia, unspe cified type; DEPT. Chronic left-sided low back pain [place] [address] Social History Tobacco Use Types Packs/Day Years [...] Sign Reading Time Taken Comments Blood Pressure 128/54 06/12/2017 2:49 PM EDT Pulse 61 06/12/2017 2:49 PM EDT Temperature - - Respiratory Rate 18 06/12/2017 2:49 PM EDT Oxygen Saturation 98% 06/12/2017 2:49 PM EDT Inhaled Oxygen Concentration - - Weight 84.4 kg (186 lb) 06/12/2017 2:49 PM EDT Height 165.1 cm (5' 5) 06/12/2017 2:49 PM EDT Body Mass Index 30.95 06/12/2017 2:49 PM EDT documented in this encounter Patient Instructions Patient InstructionsPatricio Lowe MD - 06/12/2017 3:00 PM EDT 1. Encourage lots of fluids 2. Recommend low residual diet in particular make it about yogurt, soup, smoothies, avoid grains andoatmeal, no bread 3. Hold the methotexate this week 4. Resume methotrexate when off antibiotics and feeling well 5. Requested CT scan and labs from [facility]. 6. Return in 3-4 months 7. Recommended continued dieting and pushing fluids especially in am 8. F/U with Dr. Hinkle in 24 hours 9. Sounds like neuropathic pain in legs instead and help sleep disturbance. Will try 300 mg Gabapentin at bedtime and increase as needed up to 900 mg at bedtime. 10. Hold ibuprofen until diverticulitis is resolved. documented in this encounter Progress Notes Patricio Lowe MD - 06/12/2017 3:00 PM EDT Subjective: Patient ID: Francie Yusuf is a 57 y.o. female last seen in 2012 with a background of anti-phospholipid syndrome (on coumdin since 2001 after white matter changes identified on MRI. Anti-Cardiolipin. IgG and IgM positive, Anti- Beta 2 Glycoprotein positive. IgM 82, lupus Anticoagulant negative and YELENA 1 :640. No clots); amyloidosis cutis (no evidence of systemic amyloid) and hypothyroidism. Seen in 2012 with isolated anti-phospholipid syndrome which has been well controlled on coumadin for > 10 years in terms of HANSEN, paresthesias. Had skin biopsy summer 2014 felt to be more c/w SLE, no amyloid seen. Bone marrow biopsy in : negative for amyloid. No iron seen, presumed deficiency perhaps dueto several episodes of hemorrhage in pericardium and lung that occurred in 2014. Her coumadin was held and she had recurrent symptoms whenever her prednisone was stopped. She was stable on Prednisone 5mg/d from June through September, but then developed a cough and increased shortness of breath prompting an admission to [facility] in October 2015 where patchy subsegmental opacities were seen in the lung with presumed lupus pneumonitis treated with high dose steroids. When steroid sparing efforts were attempt to using very low dose MMF and AZA were associated with marked GI intolerance at the lowest poss ible doses so MTX started. Throughout 2015, she reported many different symptoms and was anxious. However PFTS were unchanged FEV1 78%, DLCO 82% from . Her prednisone was reduced from 30 mg/d to 20 mg/d and we advanced her MTX. When last seen in , she reported an episode of cough, fever, dyspnea without response to antibiotics or high dose steroids. She was on prednisone 4 mg/d and her PFTs were: 4..17 FVC 75%; FEV1 74%, DCLO 82%; unchanged in over a year and suggests restriction more than obstruction. Interval History: Ms. Yusuf is seen in 4 month follow up. Our intepretation of multiple negative studies evaluating herdyspnea is that it is due to her 50 lb weight gain since flaring over a year ago. The workups included 1. Echocardiogram 2. Stress test both at [facility] 3. Repeat PFTS today with lung volumes that do not appear appreciably different. Based on these findings I informed her I thought weight gain and deconditioning were likely factors in her NOBLE. She reports the following update to hersymptoms and issues today. She is still taking MTX and HCQ. The summer went well. Breathing is okay. Has lost 11-12 lbs. Told she needs a right TKR; had an injection by Has some aching in right knee and sciatica on left that limits her sleep confirmed on MRI. Offered epidural at [facility]. Tried ibuprofen. Had some diffuse bloating and lower quadrant pain for a couple of days, Had been constipated. Went to ER last night and had CT scan and diagnosis of diverticulitis made at [facility]. Cipro and Flagyl started Low potassium noted. Summary of her history is as follows 1. Dyspnea: Now off Prednisone stable 2. No change in joint pain. MTX 4 T a week, no side effects. No limitations 3. Right knee OA 4. Sciatica left sided, worse with sitting or lying 5. Diverticulitis Review of Systems Constitutional: No fevers, chills, [...] CXR and echocardiogram. She was transferred to [facility] s/p IR guided drainage [...] Amyloid: stable, negative 2. Venous stasis disease Objective: Physical Exam Cushingoid woman looking stated age in NAD. She has lost some weight. Blood pressure 128/54, pulse 61, resp. rate 18, height 165.1 cm (5' 5), weight 84.4 kg (186 lb), SpO2 98 %. Skin exam: No UE bruising . No telangectasias. Brownish elevated plaques on LE, largest is 3 cm across, most are <0.5 cm. These are darkening according to the patient. Normal nailfold exam. No digital ulcers, cuticular overgrowth. There is 1+lower extremity swelling. HEENT: moist mucus membranes, decreased salivary pooling. No sinus or submandibular tenderness, no parotid enlargement. Neck supple JVD<5 cm. no bruits. Chest: I think she is moving air very well lungs are clear, with some chest wall tenderness on left inframmary region and anterior axillary line at level of mid sternum Cor: RR no rub. JOHAN 2/6 loudest at URSB Abd: benign Joint exam UE joint exam: normal except for marichuy OA in pips dips and MCPs. No active synovitis Extremities: Edema in LE is 2-3+ Assessment and Plan: Lupus pneumonitis with some improvement on MTX and this had previously allowed Prednisone tapering. I am most suspicious that weight gain and deconditioning is the primary problem here that has persisted despite tapering off of prednisone. Venous stasis causing swelling of legs. Has occasional pain for 1-2 minutes on left side once a day, not sure I am ready to do intercostal blocks for occasional symptoms. Still frightened about having recurrent pericardial effusion given hemorrhagic event 2 years ago 1. Encourage lots of fluids 2. Recommend low residual diet in particular make it about yogurt, soup, smoothies, avoid grains andoatmeal, no bread 3. Hold the methotexate this week 4. Resume methotrexate when off antibiotics and feeling well 5. Requested CT scan and labs from [facility]. 6. Return in 3-4 months 7. Recommended continued dieting and pushing fluids especially in am 8. F/U with Dr. Hinkle in 24 hours 9. Support her plan for epidural for sciatica sx Level 5 follow up Patricio Lowe M.D. Outside labs received: K 2.6,chemistries fine except for AST minimal elevation. CBC okay. CT scan report: diverticulitis of mid-descending colon without abscess documented in this encounter Plan of Treatment Not on filedocumented as of this encounter Visit Diagnoses Diagnosis NOBLE (dyspnea on exertion) Other dyspnea and respiratory abnormalit y Other systemic lupus erythematosus with lung involvement Diverticulitis of large intestine withou t perforation or abscess with bleeding Diverticulitis of colon with hemorrhage Idiopathic peripheral neuropathy Unspecified hereditary and idiopathic pe ripheral neuropathy Insomnia, unspecified type Chronic left-sided low back pain with le ft-sided sciatica documented in this encounter Care Teams Cuff Cutter Relationship Specialty Start Date End Date Daniel Hinkle MD PCP - General Family Medicine 09/19/16 [address] [place] [address] documented as of this encounter
--- OUTSIDE RECORDS SUMMARY | 2022-05-27 14:51 | XMS_ITS | Encounter Summary ---
:1960 Author Organization [facility] Address [address] [facility] [address] [place] [address] Care Team Providers Name Role Phone Daniel Hinkle MD Primary Care Provider Encounter Details Date Type Department Care Team Description 01/30/2017 Office Visit [place]ology [place] [facility] [place] Lowe, Systemic lupus erythematosus , unspecified SLE type, unspecified organ involvement status; [facility] MD NOBLE (dyspnea on exertion); [address] [facility] [place] [address] [facility] [phone] RHEUMATOLOGY DEPT. [place], [place] [address] Social History Tobacco Use Types Packs/Day Years [...] on file documented as of this encounter Patient Instructions Patient InstructionsPatricio Lowe MD - 01/30/2017 11:30 AM EDT 1. Reassure that this is not pericardial effusion and that the left sided chest pain is coming from rib or nerve irritation 2. Stay on MTX 3. Make sure takes ibuprofen 800 mg along with Tylenol at bedtime for preventing rib pain 4. Return 3-4 months 5. Encourage taking some antacids when has 'gassy feeling' as needed E.g. Maalox documented in this encounter Progress Notes Patricio Lowe MD - 01/30/2017 11:30 AM EDT Subjective: Patient ID: Francie Yusuf is a 56 y.o. female last seen in 2012 with [...] shortness of breath prompting an [place] [facility] [place] where patchy subsegmental opacities [...] prednisone 4 mg/d and her PFTs were: 4.14.17 FVC 75%; FEV1 74%, DCLO 82%; unchanged in over a year and suggests restriction more than obstruction. Interval History: Ms. Yusuf missed her appointment 2 weeks ago and returns in followup being instructed to taper off prednisone in the context of a Kenalog injection. Our intepretation of multiple negative studies evaluating her dyspnea is that it is due to her 50 lb weight gain since flaring over a year ago. The workups included 1. Echocardiogram 2. Stress test both at [facility] 3. Repeat PFTS today with lung volumes that do not appear appreciably different. She reports the following symptoms and issues today. Summary of her history is as follows 1. Dyspnea: Now off Prednisone No change in breathing 2. New lower denture ill fitting with tissue hyperplasia: Not resolved 3. No change in joint pain. MTX 4 T a week, no side effects. No limitations 4. Right anterior chest pain seems to have abated, mainly having left sided chest pain brought on bya deep breath, anterior axillary line inframammary and into sternum. Happening once a day 5. Leg edema: not really changed, not wearing compression stockings 6. Sciatica left sided, worse with sitting or lying 7. Seeing orthopedics for left knee torn meniscus- pain occasional limiting Review of Systems Constitutional: No fevers, chills, [...] CXR and echocardiogram. She was [place] [facility] [place]/p IR guided drainage of 70cc of [...] looking stated age in NAD. She has gained weight Skin exam: No UE bruising . No [...] given hemorrhagic event 2 years ago 1. Reassure that this is not pericardial effusion and that the left sided chest pain is coming from rib or nerve irritation 2. Stay on MTX 3. Make sure takes ibuprofen 800 mg along with Tylenol at bedtime for preventing rib pain 4. Return 3-4 months Level 5 follow up Patricio Lowe M.D. documented in this encounter Plan of Treatment Not on filedocumented as of this encounter Visit Diagnoses Diagnosis Systemic lupus erythematosus, unspecifie d SLE type, unspecified organ involvement status NOBLE (dyspnea on exertion) Other dyspnea and respiratory abnormalit y Weight gain Abnormal weight gain documented in this encounter Care Teams Commercial Intelligence Manager Relationship Specialty Start Date End Date Daniel Hinkle MD PCP - General Family Medicine 09/19/[address] [place] [id number] documented as of this encounter
--- OUTSIDE RECORDS SUMMARY | 2022-05-27 14:51 | XMS_ITS | Encounter Summary ---
:1960 Author Organization [facility] [place] [address] Care Team Providers Name Role Phone Daniel Hinkle MD Primary Care Provider Encounter Details Date Type Department Care Team Description 09/03/2018 Office Visit Hematology and Farzaneh Valera dosis cutis [place] [facility] [place] Roselia [facility] ENTER Becky HEMATOLOGY/[place] [address] DEPT. [phone] [place], [place] [address] (Wo rk) Social History Tobacco Use Types Packs/Day Years Used Date Former Smoker Cigarettes 1.5 15 Quit: 08/14/18 93 Smokeless Tobacco: Never Used Alcohol Use Standard Drinks/Week Comments Yes 2 (1 standard drink = 0.6 oz pure alcoho l) [facility] Alcohol Habits Answer Date Recorded How [...] documented as of this encounter Progress Notes Farzaneh Valera MD - 09/03/2018 1:30 PM EST Images from the original note were not included. Hematology Clinic [facility] [place] [address] FOLLOW-UP PATIENT EVALUATION PROBLEM LIST: 1. Hypertension. 2. Antiphospholipid syndrome. Followed by Dr. Lowe. On chronic Coumadin. No signs or symptoms of antiphospholipid syndrome since being started on warfarin. Initially presented with headaches and lightheadedness, and an MRI showed white matter changes. 3. Dermatitis, pruritic, of lateral thighs and arms 2009. Followed by Dr. Whitney. 4. History of disk herniation. 5. Status post hysterectomy. 6. Iron-deficiency anemia in the past without recurrence after treatment. She was menstruating at the time. 7. with one miscarriage. 8. Asthma. 9. Pneumonia times two. 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 Followed by Severiano Blakely and [facility]. W/U to date w/ neg ECHO at [facility]. CT w/ one para-aortic 2cm LN which we will follow. Neg SPEP and 24 hour urine at [facility]. Neg fat pad biopsy. BMBx not yet completed. a. repeat CT, February 2010, with no pathologically enlarged adenopathy. Bone marrow biopsy negative for amyloid and lymphoma. B. CT February 2014 with 1cm (short axis) para-aortic LN. Otherwise negative. SPEP, SFLC remain neg. Patient Active Problem List Diagnosis ??? Primary osteoarthritis of right knee ??? Amblyopia, left eye ??? Keratoconjunctivitis sicca due to decreased tear production ??? Chest pain ??? Hypoxia ??? Chronic rhinitis ??? Cardiac tamponade ??? Acute bloody pericarditis ??? Pleural effusion ??? S/P complete thyroidectomy ??? Amyloidosis cutis ??? 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 Followed by Severiano Pineda. W/U to date w/ neg ECHO at [facility]. CT w/ one para-aortic 2cm LN which we will follow. Neg SPEP and 24 hour urine at [facility]. Neg fat pad biopsy. BMBx not yet completed. 10/29/09- eval of right medial denson lesion, present for ~seven months ---Pathologic Diagnosis--- Skin, right medial denson, punch biopsy: Diffuse amyloidosis associated with kappa-restricted plasma cell infiltrate (see Comment). ---Comment--- The biopsy shows diffuse amorphous eosinophilic deposition. A Congo red stain is positive, staining material between adipocytes, in fibrous connective tissue, and in vessel bauman. These areas demonstrate apple green birefringence by polarized light. In addition, there is superficial anddeep perivascular [place]+, Lambda- plasma cell infiltrate. Please correlate with clinical findings torule out systemic amyloidosis and to delineate this plasma cell lesion. 12/08/09- ---Pathologic Diagnosis--- Skin of left thigh/hip, two punch biopsies: 1. Focal spongiosis and superficial and mid dermal perivascular lymphohistiocytic infiltrate with numerous eosinophils. 2. Mild superficial perivascular lymphocytic inflammation with scattered eosinophils, non-specific.(see Comment). There is no evidence of amyloidosis in either biopsy. 01/05/10- ---Pathologic Diagnosis--- A - Left lower leg, superior, punch biopsy: Dermatofibroma, present at a peripheral margin. No evidence of amyloid deposition on H and E and Congo red (amyloid) stains. B - Left lower leg, mid, punch biopsy: Diffuse amyloidosis. Congo red (amyloid) stain is positive. C - Left lower leg, lower, punch biopsy: Diffuse amyloidosis. Congo red (amyloid) stain is positive. D - Abdomen, fat pad, excisional biopsy: No evidence of amyloid deposition on H and E and Congo red (amyloid) stains. 02/24/10- CT TAP 1. Unchanged left periaortic lymph node, which has a fatty hilum and is not pathologically enlarged by size criteria. 2. There are multiple small shotty-sized periaortic and aortocaval, as well as left common iliac nodes, which are unchanged in size, shape, and appearance from the previous examination. 3. Sigmoid diverticulosis. 4. Two thyroid nodules. 5. Prominent spleen. 6. Right adnexal cysts. 7. Status post hysterectomy. BMBx negative. SPEP and SFLC remain negative. 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 ?? CT February 2014 with 1cm (short axis) para-aortic LN. Otherwise negative. SPEP, SFLC remain neg. ?? CT chest January 2015 negative ?? Skin biopsy 03/2015 DIAGNOSIS Skin, left abdomen, punch biopsy: - Skin with a deep perivascular lymphocytic infiltrate and fibroadipose tissue; negative for amyloidosis. See discussion. DISCUSSION Congo red stains do not demonstrate amyloidosis. The underlying etiology for the lymphoid infiltrate is unclear in these sections, however, this could reflect a manifestation of an underlying systemic process. Clinicopathologic correlation is recommended. Drs. Bragg and Davey have reviewed this case and concur with this diagnosis. BMBX 06/09/2015 - negtative for amyloid and normal CG DIAGNOSIS No immunophenotypic evidence for involvement of the bone marrow by a monoclonal lymphoproliferative or plasma cell neoplasm (see Discussion). ??? Thyroid nodule ??? 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 Asthma ??? Sinusitis, chronic ??? Antiphospholipid antibody syndrome Antiphospholipid syndrome. Followed by Dr. Lowe. On chronic Coumadin. No signs or symptoms of antiphospholipid syndrome since being started on warfarin. Initially presented with headaches and lightheadedness, and an MRI showed white matter changes. ??? Edema of both legs With calf pain on reclining ??? Miscarriage One INTERIM HISTORY OF PRESENT ILLNESS: Ms. 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 She notes more skin nodules on shins. They bother her cosmetically and she hides her legs. She notes a new lesion. Otherwise no change in her medical condition. No new concerns. In January 2015, she was hospitalized with a hemorrhagic pericardial effusion. Her INR was significantly elevated. This has led to a long discussion between rheumatology and coagulation team as to whethermarylu needs to be anticoagulated. I reviewed these notes. Francie is presently off anticoagulation and she is comfortable with this decision. Recent f/u studies: She also had a CT of chest abdomen and pelvis in 2013 with no adenopathy. Fat pad biopsy -2014. CT of the chest -2014. Bone marrow biopsy - 2015. See problem list above for details No other sx/sx of systemic amyloid. Today, patient states her amyloid lesions have become smaller but are obviously still present. She had a recent corticosteroid injection of her right knee and had a recent evaluation with MRI of back for left leg sciatica. Otherwise, patient doing well. She has been battling sinus sx and PCP elected not to treat with ATB. Saw Dr Lowe for her OA beforeme and nothing new prescribed. He thinks her lupus is stable. ROS Energy level:stable Pain: No Appetite:good Fevers/chills/sweats:No Bruising/bleeding/melena: See above Recent infections:No HEENT: negative Nausea/vomiting/diarrhea/constipation:No SOB/NOBLE/chest pain:No Change in adenopathy or other masses:No Unexpected weight loss or gain:No Skin rashes or petechiae:as above Musculoskeletal complaints:No Extremities: Negative upper and lower bilaterally Neurologic symptoms:No MEDS: Current Outpatient Medications on File Prior to Visit Medication Sig Dispense Refill ??? losartan-hydrochlorothiazide (HYZAAR) 50-12.5 mg Tablet take 1 tablet by mouth once daily for blood pressure -THIS REPLACES LISINOPRIL/HCTZ 0 ??? cholecalciferol, Vitamin D3, 1,000 unit Tablet Take by mouth daily. ??? pramipexole (MIRAPEX) 0.125 mg Tablet 1 t at bedtime for 2-4 days, if not sleeping well enough, may increase to 2 T thereafter, call if not better 180 tablet 3 ??? CALCIUM 500 WITH D 500 mg(1,250mg) -400 unit Tablet Take 1 tablet by mouth daily. 0 ??? hydroxychloroquine (PLAQUENIL) 200 mg Tablet Take 1 tablet by mouth daily. 30 tablet 5 ??? ibuprofen (ADVIL;MOTRIN) 800 mg Tablet Take 1 tablet by mouth every 8 hours as needed for Pain. (Patient not taking: Reported on 09/03/2018) 30 tablet 12 ??? levothyroxine (SYNTHROID) 125 mcg Tablet Take 125 mcg by mouth nightly. ??? fluticasone (FLOVENT) 220 mcg/actuation HFA Aerosol Inhaler Inhale 2 puffs into the lungs 2 times daily. ??? cetirizine (ZYRTEC) 10 mg Tablet Take 10 mg by mouth daily. ??? aspirin 81 mg Tablet, Delayed Release (E.C.) Take 1 tablet by mouth daily. ??? albuterol (PROVENTIL HFA;VENTOLIN HFA;PROAIR) 90 mcg/actuation HFA Aerosol Inhaler Inhale 2 puffs into the lungs every 4 hours as needed for Wheezing. Use with spacer ??? simvastatin (ZOCOR) 20 mg tablet Take 20 mg by mouth nightly. No current facility-administered medications on file prior to visit. 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 VS with Dr Lowe's vist. GENERAL: Ms. Yusuf appears well and is in no acute distress. ENT: Oral pharynx clear. EYES: MICHAEL NECK: Supple without adenopathy. AXILLARY: no adenopathy OTHER LYMPH: no adenopathy CARDIAC: Regular rate and rhythm without S3,S4 or murmurs. LUNGS: Clear to auscultation./percussion ABDOMEN: Soft and non-tender without hepatosplenomegaly or masses. EXTREMITIES: No cyanosis, clubbing, edema or calf tenderness. SKIN: . Amyloid nodules on bilateaal shins per HPI above. See photos below. Hemorrhagiclesion noted.Right forearm heart tattoo since childhood. NEUROLOGICAL: Alert and oriented to person, place and time. MUSCULOSKELETAL: No spinal or chest wall tenderness. Bilateral LE 2015 Right LE 2015 R LE 2016 R LE 2016 LLE 2016 2017 2017 2018 LLE lat, LLE med and RLE - all improved from baseline. LABORATORY STUDIES Recent Results (from the past 24 hour(s)) Protein Electrophoresis, serum Result Value Ref Range Total Prot Elec 6.1 6.1 - 8.0 gm/dL Comprehensive metabolic panel (non-fasting) Result Value Ref Range Glucose Lvl 116 65 - 199 mg/dL BUN 12 8 - 18 mg/dL Creatinine 0.80 0.70 - 1.20 mg/dL Sodium 142 135 - 145 mmol/L Potassium 3.6 3.5 - 5.0 mmol/L Chloride 101 98 - 107 mmol/L CO2 26 22 - 31 mmol/L Anion Gap 15 5 - 15 mmol/L Calcium 8.2 (L) 8.5 - 10.5 mg/dL Total Protein 6.4 6.1 - 8.0 gm/dL Albumin 3.8 3.2 - 5.2 gm/dL AST 21 0 - 30 unit/L ALT 18 0 - 30 unit/L Alk Phos 117 (H) 40 - 104 unit/L Total Bilirubin 0.3 0.2 - 1.3 mg/dL eGFR 82 >=60 mL/min/1.73 m?? eGFR 96 >=60 mL/min/1.73 m?? Hemogram Result Value Ref Range WBC 5.4 4.0 - 9.5 x10(3)/mcL RBC 5.09 4.00 - 5.21 x10(6)/mcL Hemoglobin 14.2 11.7 - 15.5 gm/dL Hematocrit 41.8 35.7 - 45.8 % MCV 82.1 (L) 82.6 - 94.4 fL MCH 27.9 27.1 - 32.0 pg MCHC 34.0 31.7 - 35.0 gm/dL Platelets 252 145 - 357 x10(3)/mcL RDWSD 38.5 37.0 - 46.0 fL RDWCV 12.8 11.5 - 14.1 % MPV 9.3 7.6 - 12.9 fL nRBC % Auto 0.0 % nRBC Abs Auto 0.000 0.000 - 0.000 x10(3)/mcL Differential, Automated Result Value Ref Range Neutrophils % 71.6 % Neutr Abs (ANC) 3.83 1.70 - 6.10 x10(3)/mcL Lymphocytes % 14.0 % Lymphocytes Abs 0.8 (L) 0.9 - 3.2 x10(3)/mcL Monocytes % 9.5 % Monocyte Abs 0.5 0.3 - 0.9 x10(3)/mcL Eosinophils % 3.9 % Eosinophils Abs 0.2 0.0 - 0.4 x10(3)/mcL Basophils % 0.6 % Basophils Abs 0.0 0.0 - 0.1 x10(3)/mcL Immature Gran % 0.40 % Cheryl Gran Abs 0.02 0.00 - 0.04 x10(3)/mcL RADIOLOGY STUDIES REVIEWED: CT Chest / Abdomen / Pelvis With Contrast Clinical History amyloid assess for adenopathy Comparison CT of the chest abdomen pelvis with contrast November 15, 2010. Technique Of the chest abdomen and pelvis was performed following the intravenous administration of 110 mL of Omnipaque 350. Findings Chest: The lungs are overall stable when compared to prior study. The 3 mm right upper lobe nodule is unchanged in position and appearance from prior examination (series 3, image 19). A pneumatocele in the right lung apex is also unchanged from prior exam. No new or enlarging pulmonary nodules. The patient is status post thyroidectomy. No axillary, mediastinal, or hilar lymphadenopathy. No pericardial or pleural effusion. Abdomen/pelvis: Multiple small retroperitoneal lymph nodes. The largest node is adjacent to the aorta and measures 1 cm in short axis, which is slightly increased from prior examination (series 2, image 81). No mesenteric or pelvic lymphadenopathy. As on prior examination, the liver contains multiple hypodensities, which are too small to further characterize. Normal appearance of the gallbladder, pancreas, spleen, adrenal glands, and kidneys. No intraperitoneal free air or free fluid. No free fluid in the pelvis. Normal appendix. The colon has shows diverticular disease in the sigmoid colon shows diverticular disease without evidence for acute diverticulitis. No aggressive osseous lesion. Impression known 1. Slight interval increase in the size of a single periaortic lymph node, as described above. Otherwise stable examination. Pathology DIAGNOSIS Skin, left abdomen, punch biopsy: - Skin with a deep perivascular lymphocytic infiltrate and fibroadipose tissue; negative for amyloidosis. See discussion. DISCUSSION Congo red stains do not demonstrate amyloidosis. The underlying etiology for the lymphoid infiltrate is unclear in these sections, however, this could reflect a manifestation of an underlying systemic process. Clinicopathologic correlation is recommended. Drs. Bragg and Davey have reviewed this case and concur with this diagnosis. ASSESSMENT/PLAN: 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 The SQ nodules continue to both regress and progress. Theybother her cosmetically. Unfortunately excision or XRT are likely to not cure problem and may not improve overall cosmetic result. Sysetmic w/u neg in past. Options for treatment all have their downside, mostly they would be disfiguring in their own right. Treatments available do not change the overall course of disease. She had a CAT scan of chest abdomen and pelvis In 2013 which was negative. At the time of her pericardial effusion/hemorrhage in 2014 , she had a CT of the chest which also showed no adenopathy. This was in January 2015. SPEP and serum free light chains were negative in January 2015 as well. Just to be surethere were no signs of amyloid, we decided to do a fat pad biopsy in 2014 and it was negative. No signs of systemic disease at this time. Will plan to see her back in one year. Plan cbc, cmp, sflc, spep and Quant ig At the time of the appointment. I would not plan another CAT scan , unless clinically indicated. SLE since dx - hemorrhagic pleural effusion. I discussed all of the above with the patient and all of her questions were answered. Support and counseling given as appropriate. Francie Gonzales Yusuf knows that she can call us any time with questions or concerns. This note was written or modified using [employer] voice recognition software. The final note was screened for mistakes. Please excuse any remaining errors. Copy Maria Fournier APRN documented in this encounter Plan of Treatment Not on filedocumented as of this encounter Visit Diagnoses Diagnosis Amyloidosis cutis Other amyloidosis documented in this encounter Care Teams Web Services Professional Relationship Specialty Start Date End Date Daniel Hinkle MD PCP - General Family Medicine 09/19/16 [address] [place] [address] documented as of this encounter
--- OUTSIDE RECORDS SUMMARY | 2022-05-27 14:51 | XMS_ITS | Encounter Summary ---
:1960 Author Organization [facility] [place] [address] Care Team Providers Name Role Phone Daniel Hinkle MD Primary Care Provider Reason for Visit Reason Onset Date Comments Other 12/27/2016 Encounter Details Date Type Department Care Team Description 12/27/2016 Telephone Rheumatology at [facility] [place] Kristy [place] [address] Social History Tobacco Use Types Packs/Day [...] Telephone Encounter - Kristy Asher RN - 12/27/2016 9:26 AM EDT Francie calls for Taper schedule for Prednisone. Begin rapid taper of prednisone over next 4 days to 0 Left message for Francie to RTC to nurse. Left another message and advised Francie that I need to speak with her about taper because I need to know her current dose to advise her how to taper. I finally connected with Francie and she will take Prednisone 4 mg today and taper by 1 mg daily until she is done with Prednisone. She will call if she has any questions or concerns. documented in this encounter Plan of Treatment Not on filedocumented as of this encounter Visit Diagnoses Not on filedocumented in this encounter Care Teams Quill Buncher And Sorter Relationship Specialty Start Date End Date Daniel Hinkle MD PCP - General Family Medicine 09/19/16 [address] [place] [id number] documented as of this encounter
--- OUTSIDE RECORDS SUMMARY | 2022-05-27 14:51 | XMS_ITS | Encounter Summary ---
:1960 Author Organization [facility] [place] [address] Care Team Providers Name Role Phone Daniel Hinkle MD Primary Care Provider Encounter Details Date Type Department Care Team Description 09/09/2019 Hospital Encounter Hematology and Oncology [place] [address] Social History Tobacco Use Types Packs/Day [...] on file documented as of this encounter Medications at Time of Discharge Medication Sig Dispensed Refills Start Date End Date acetaminophen (Tylenol) 500 Take 1,000 mg by 0 mg Tablet mouth every 6 hours as needed for Pain. loratadine (CLARITIN) 10 mg Take 10 mg by 0 Tablet mouth daily. losartan-hydrochlorothiazid take 1 tablet by 0 e (HYZAAR) 50-12.5 mg mouth once daily Tablet for blood pressure -THIS REPLACES LISINOPRIL/HCTZ cholecalciferol, Vitamin Take by mouth 0 D3, 1,000 unit Tablet daily. CALCIUM 500 WITH D 500 Take 1 tablet by 0 10/17/ 018 mg(1,250mg) -400 unit mouth daily. Tablet hydroxychloroquine Take 1 tablet by 30 tablet 5 02/24/2017 (PLAQUENIL) 200 mg Tablet mouth daily. ibuprofen (ADVIL;MOTRIN) Take 1 tablet by 30 tablet 12 02/03 800 mg Tablet mouth every 8 hours as needed for Pain. levothyroxine (SYNTHROID) Take 125 mcg by 0 125 mcg Tablet mouth nightly. fluticasone (FLOVENT) 220 Inhale 2 puffs 0 mcg/actuation HFA Aerosol into the lungs 2 Inhaler times daily. cetirizine (ZYRTEC) 10 mg Take 10 mg by 0 Tablet mouth daily. aspirin 81 mg Tablet, Take 1 tablet by 0 01/29/20 15 Delayed Release (E.C.) mouth daily. albuterol (PROVENTIL Inhale 2 puffs 0 HFA;VENTOLIN HFA;PROAIR) 90 into the lungs mcg/actuation HFA Aerosol every 4 hours as Inhaler needed for Wheezing. Use with spacer simvastatin (ZOCOR) 20 mg Take 20 mg by 0 tablet mouth nightly. amoxicillin-clavulanate 0 04/22/2019 0 05/05/2021 (AUGMENTIN) 875-125 mg Tablet pramipexole (MIRAPEX) 0.125 1 t at bedtime 180 tablet 3 03/201911/18/2019 mg TabletIndications: for 2-4 days, if Restless legs syndrome not sleeping well enough, may increase to 2 T thereafter, call if not better documented as of this encounter Plan of Treatment Not on filedocumented as of this encounter Procedures Procedure Name Priority Date/Time Associated Comments Diagnosis HEMOGRAM STAT 09/09/2019 8:49 AM Amyloidosis of skin Re sults for this EST procedure are i n the results section. DIFFERENTIAL, STAT 09/09/2019 8:49 AM Amyloidosis of skin R esults for this AUTOMATED EST procedure are i n the results section. HC CBC,PLT & AUTO DIFF STAT 09/09/2019 8:49 AM Amyloidosis of skin EST HC VENIPUNCTURE STAT 09/09/2019 8:49 AM Amyloidosis of skin Results for this EST procedure are i n the results section. COMPREHENSIVE STAT 09/09/2019 8:49 AM Amyloidosis of skin R esults for this METABOLIC PANEL EST procedure ar e in (NON-FASTING) the results section. documented in this encounter Results (ABNORMAL) Differential, Automated (09/09/2019 8:49 AM EST) [facility] Method Time Signature Neutrophils % 73.3 % [facility] Neutr Abs (ANC) 4.60 1.70 - [facility] 6.10 [facility] x10(3)/[facility] LABORATORY Lymphocytes % 11.0 % [facility] Lymphocytes Abs 0.7 (L) 0.9 - 3.2 [facility] x10(3)/[facility] LABORATORY Monocytes % 10.4 % [facility] Monocyte Abs 0.6 0.3 - 0.9 [facility] x10(3)/[facility] LABORATORY Eosinophils % 4.0 % [facility] Eosinophils Abs 0.2 0.0 - 0.4 [facility] x10(3)/[facility] LABORATORY Basophils % 0.8 % [facility] Basophils Abs 0.0 0.0 - 0.1 [facility] x10(3)/[facility] LABORATORY Immature Gran % 0.50 % [facility] Comment: Immature granulocytes(IG's)percentage an d absolute count will include metamyelocytes, myelocytes, and promyelo cytes. Blood smears from CBCs yielding IG's will be scanned manually for concor dance. If this scan disagrees with the automated IG or if promyelocytes are not ed, a manual differential will be performed. Cheryl Gran Abs 0.03 0.00 - 0.04 x10(3)/[facility] MAR Y [facility] Specimen Anatomical Collection Method Collection Time Receive d Time (Source) Location / / Volume Laterality Blood specimen 09/09/2019 8:49 AM 020 9:00 (specimen) EST AM EST Resulting Agency Comment Spec In Lab Farzaneh Rouse APRN HEMATOLOGY ORDERABLES Performing Organization Address City/State/[place] [address] Hemogram (09/09/2019 8:49 AM EST) athologist Signature WBC 6.3 4.0 - 9.5 [facility] LABORATORY RBC 4.98 4.00 - [place] [facility]IGAR 5.21 [facility] x10(6)/[facility] LABORATORY Hemoglobin 13.6 11.7 - [facility] g[facility]/dL [facility] Hematocrit 41.3 35.7 - [facility] JIGAR 45.8 % [facility] MCV 82.9 82.6 - [facility] 94[facility] [facility] LABORATORY MCH 27.3 27.1 - [place] 32.[address] [facility] MCHC 32.9 31.7 - [facility] JIGAR 35.0 gm/dL [facility] Platelets 287 145 - 357 [facility] x10(3)/[facility] LABORATORY RDWSD 37.3 37.0 - [facility] JIGAR 46.[address] [facility] LABORATORY RDWCV 12.3 11.5 - [facility] JIGAR 14.1 % [facility] MPV 9.2 7.6 - 12.9 [facility] LABORATORY nRBC % Auto 0.0 % [facility] nRBC Abs Auto 0.000 0.000 [facility] x10(3)/[facility] LABORATORY Specimen Anatomical Collection Method Collection Time Receive d Time (Source) Location / / Volume Laterality Blood specimen 09/09/2019 8:49 AM 020 9:00 (specimen) EST AM EST Resulting Agency Comment Spec In Lab Farzaneh Rouse APRN HEMATOLOGY ORDERABLES Performing Organization Address City/State/ZIP Code Phon e Number [place] [phone] (ABNORMAL) Comprehensive metabolic panel (non-fasting) (09/09/2019 8:49 AM EST) P athologist Signature Glucose Lvl 94 65 - 199 [facility] mg/dL [facility] Comment: Diabetes: >=200 mg/dL plus symp toms BUN 15 8 - 18 mg/dL [facility] Creatinine 0.71 0.70 - 1.20 mg/dL [facility] Sodium 137 135 - 145 mmol/L [facility] Potassium 3.7 3.5 - 5.0 mmol/L [facility] Comment: Please note: ??Patients with WBC >100,00 0 may have falsely elevated Potassium levels. ??For accurate Potassium quantif ication in these patients send serum separator tube (gold top) for subsequent determinations. ??Contact the Clinical Chemistry Laboratory if there are any qu estions. Chloride 104 98 - 107 mmol/L [facility] CO2 27 22 - 31 mmol/L [facility] Anion Gap 6 5 - 15 mmol/L [facility] Calcium 8.2 (L) 8.5 - 10.5 mg/dL [facility] Total Protein 6.3 6.1 - 8.0 gm/dL [facility] Albumin 4.1 3.2 - 5.2 gm/dL [facility] AST 17 0 - 30 unit/L [facility] ALT 14 0 - 30 unit/L [facility] Alk Phos 94 35 - 105 unit/L [facility] Total Bilirubin 0.3 0.2 - 1.3 mg/dL [facility] Estimated GFR 95 >=60 mL/min/1.73 m?? [facility] Comment: The eGFR was calculated using the CKD-EP I equation. As with all creatinine based estimates of kidney function, eGFR values calculated with the CKD-EPI equation are not accurate in patients wi th acute kidney failure, extremes of body mass or the acutely ill. [email or web address] eGFR 110 >=60 mL/min/1.73 m?? [facility] Comment: The eGFR was calculated using the CKD-EP I equation. As with all creatinine based estimates of kidney function, eGFR values calculated with the CKD-EPI equation are not accurate in patients wi th acute kidney failure, extremes of body mass or the acutely ill. [email or web address] Specimen Anatomical Collection Method Collection Time Receive d Time (Source) Location / / Volume Laterality Blood specimen 09/09/2019 8:49 AM 9:00 (specimen) EST AM EST Resulting Agency Comment Spec In Lab Farzaneh Rouse APRN CHEMISTRY ORDERABLES Performing Organization Address City/[facility]/[place] [address] Lactate Dehydrogenase (09/09/2019 8:49 AM EST) P athologist Signature LDH 210 110 - 220 [facility] unit/L [facility] Specimen Anatomical Collection Method Collection Time Receive d Time (Source) Location / / Volume Laterality Blood specimen 09/09/2019 8:49 AM 020 9:00 (specimen) EST AM EST Resulting Agency Comment Spec In Lab Farzaneh Rouse APRN CHEMISTRY ORDERABLES Performing Organization Address City/[facility]/[place] [address] documented in this encounter Visit Diagnoses Diagnosis Amyloidosis of skin Amyloidosis, unspecified documented in this encounter Care Teams Utility Sales Representative Relationship Specialty Start Date End Date Daniel Hinkle MD PCP - General Family Medicine 09/19/16 [address] [place] [address] documented as of this encounter
--- OUTSIDE RECORDS SUMMARY | 2022-05-27 14:51 | XMS_ITS | Encounter Summary ---
:1960 Author Organization [facility] Address [facility] [place] [address] Care Team Providers Name Role Phone Daniel Hinkle MD Primary Care Provider Reason for Visit Reason Comments Follow-up Encounter Details Date Type Department Care Team Description 05/01/2017 Office Visit Hematology and Kelsey Whitney MD Primary localized Oncology at [facility] cutaneous nodular [facility] [address]fred[address], [place] RD-DERMATOLOGY [address] [place] [address] [phone] Social History Tobacco Use Types Packs/Day Years Used Date Former Smoker Cigarettes 1.5 15 Quit: 08/14/18 93 Smokeless Tobacco: Never Used Alcohol Use Standard Drinks/Week Comments Yes 2 (1 standard drink = 0.6 oz pure alcoho l) [facility] Alcohol Habits Answer Date Recorded [...] Sign Reading Time Taken Comments Blood Pressure 141/63 05/01/2017 2:13 PM EDT Pulse 71 05/01/2017 2:13 PM EDT Temperature - - Respiratory Rate 20 05/01/2017 2:13 PM EDT Oxygen Saturation - - Inhaled Oxygen Concentration - - Weight 90 kg (198 lb 6.6 oz) 05/01/2017 2:13 PM EDT Height - - Body Mass Index 33.02 04/26/2017 10:52 AM EDT documented in this encounter Progress Notes Kelsey Whitney MD - 05/01/2017 2:00 PM EDT DERMATOLOGY ESTABLISHED PATIENT CLINIC NOTE Date of service: 05/01/2017 Francie Yusuf : 1960 Provider: Kelsey Whitney MD SKIN HISTORY: Nodular amyloid -rx 5mg/cc kenalog injection [place] 01/2011 Itchy rash in setting of antiphospholipid syndrome & nodular amyloidosis, hypocomplementemia -multiple topical steroids -antihistamine not helpful -resolved spontaneously Antiphospholipid antibody syndrome ? Chief Complaint Patient presents with ??? Follow-up Francie Yusuf is a 57 y.o. female.Established patient to me. She is doing well without any complaints. She is pleased to report she is loosing weight. I'm under 200 lbs. She has not developed any new lesions. She is on MTX 4 tabs a week and is followed by Dr. Lowe for antiphospholipid antibody syndrome. Shehas been doing well though has had some SOB which has been monitored over time with PFTs, and per Dr. Lowe's note, felt was due then to increased weight and inactivity. Current Outpatient Prescriptions Medication Sig Dispense Refill ??? hydroxychloroquine (PLAQUENIL) 200 mg Tablet Take 1 tablet by mouth daily. 30 tablet 5 ??? methotrexate 2.5 mg Tablet Take 4 tablets by mouth once a week. 36 tablet 3 ??? hydroCHLOROthiazide (HYDRODIURIL) 25 mg Tablet Take 2 tablets by mouth daily. 60 tablet 11 ??? ibuprofen (ADVIL;MOTRIN) 800 mg Tablet Take 1 tablet by mouth every 8 hours as needed for Pain. 30 tablet 12 ??? levothyroxine (SYNTHROID) 125 [...] by mouth nightly. No current facility-administered medications for this visit. Vitals: 05/01/17 1413 BP: 141/63 Patient Position: Sitting Pulse: 71 Resp: 20 Weight: 90 kg (198 lb 6.6 oz) Allergies Allergen Reactions ??? Azathioprine Nausea And Vomiting ??? Mycophenolate Mofetil Nausea And Vomiting ROS General: feeling well Skin: denies other skin complaints EXAM General: NAD, pleasant, cooperative. Type of exam: Complete skin exam including scalp, face, ears, neck, arms, hands, back, anterior trunk, buttocks, legs, feet. Genitalia not examined. Skin: Significant skin findings: lesions on the legs are flattened in the center and hyperpigmented. Thereis one area on the right mid calf that is very firm and has been present, not enlarging over a year (? Calcium). Tongue is normal. ASSESSMENT/PLAN: 1. 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 This could possibly be related to the MTX treatment she is getting for other reasons. She has not developed any new lesions,has no purpura. No other concerning lesions. Plan rtc 1 year. Note initiated and routed to physician for review and change by: RUBÉN SIMMONS LPN I, Dr. Kelsey Whitney, performed the visit service though my nurse assisted me in scribing the note. I reviewed and edited this note above, a scribed service performed by my nurse. On closure of this noteI agree with the accuracy of the documentation. Kelsey Whitney MD Section of Dermatology [facility] documented in this encounter Plan of Treatment Not on filedocumented as of this encounter Visit Diagnoses Diagnosis Primary localized cutaneous nodular amyl oidosis documented in this encounter Care Teams Analysis Manager Relationship Specialty Start Date End Date Daniel Hinkle MD PCP - General Family Medicine 09/19/16 [address] [place] [address] documented as of this encounter
--- OUTSIDE RECORDS SUMMARY | 2022-05-27 14:51 | XMS_ITS | Encounter Summary ---
:1960 Author Organization [facility] [place] [address] Care Team Providers Name Role Phone Daniel Hinkle MD Primary Care Provider Reason for Visit Reason Onset Date Comments Other 02/02/2017 Encounter Details Date Type Department Care Team Description 02/02/2017 Telephone Rheumatology at [facility] Kristy [place]her, [place] [address] Social History Tobacco Use Types Packs/Day [...] Telephone Encounter - Kristy Asher RN - 02/02/2017 11:53 AM EDT Call received from Francie stating she had an Xray of her knee due to pain and her MD told her that it showed Bone on Bone and she need a TKA. Francie is scared and would like to know if Dr. Lowe could refer her to Orthopedics here for second opinion and possible surgery here. Please tell Francie that I am sorry for her distress. ??There are other things that can be done and Henry lead with a referral to Orthopedics to discuss her options. Please mention that a part of her increased knee pain is the weight gain she has experienced. ??Since, she is also experiencing ??Increased breathing issues because of this, every pound she loses will make her feel doubly better (in her knee and her breathing)) Jazzy Lowe Left message for Francie to RTC to nurse to discuss. I spoke with Grecia and she was advised of referral. We discussed weight loss and she agrees. She will wait to hear from Orthopedics for appointment. documented in this encounter Plan of Treatment Not on filedocumented as of this encounter Visit Diagnoses Not on filedocumented in this encounter Care Teams Thermo Processor Relationship Specialty Start Date End Date Daniel Hinkle MD PCP - General Family Medicine 09/19/[address] [place] [address] documented as of this encounter
--- OUTSIDE RECORDS SUMMARY | 2022-05-27 14:51 | XMS_ITS | Encounter Summary ---
:1960 Author Organization [facility] Address [address] [place] [address] Care Team Providers Name Role Phone Daniel Hinkle MD Primary Care Provider Reason for Visit Reason Onset Date Comments Error 05/22/2018 Encounter Details Date Type Department Care Team Description 05/01/2017 Office Visit Hematology and Farzaneh Mathew dosis cutis; Oncology at [facility] MD Roselia Amyloidosis, unspecified type; [facility] [address] [place] HEMATOLOGY/ONCOLOGY [address] DEPT. [phone] [place], [place] [address] (Wo rk) Social History Tobacco [...] as of this encounter Progress Notes Farzaneh Mathew MD - 05/22/2018 1:12 PM EDT This encounter was created in error - please disregard. Farzaneh Mathew MD - 05/01/2017 2:00 PM EDT ++++++++++++++++++++++++++++++++++++++++++++++++++++++++++++++++ Attending Addendum: I personally saw, examined and interviewed the patient. I agree with the history, physical, assessment and plan in the note by Dr Medina of the same date. I have reviewed all pertinent laboratory and radiographic findings. We discussed the patient in detail and formulated the assessment and plan together. Cutaneous amyloid essentially stable. Some darkened hyperpigmentation. But no new lesions elsewhere on body. RTC in one year with Dr Whitney and Soto. Cbc, cmp, spep, sflc. Suzie Medina - 05/01/2017 2:00 PM EDT Images from the original note were not included. [place] [address] FOLLOW-UP PATIENT EVALUATION PROBLEM LIST: 1. Hypertension. 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 Followed by [facility] Blakely and [place]. W/U to date w/ neg ECHO at [facility]. CT w/ one para-aortic 2cm LN which we will follow. Neg SPEP and 24 hour urine at [facility]. Neg fat pad biopsy. 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 Followed by [facility] Blakely and [place]. W/U to date w/ neg ECHO at [facility]. CT w/ one para-aortic 2cm LN which we will follow. Neg SPEP and 24 hour urine at [facility]. Neg fat pad biopsy. 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 Please correlate with [...] the chest -2014. Bone marrow biopsy - 2014. See problem list above for details No other sx/sx of systemic amyloid. Today, patient states her amyloid lesions have become smaller but are obviously still present. She had a recent corticosteroid injection of her right knee and had a recent evaluation with MRI of back for left leg sciatica. Otherwise, patient doing well. ROS Energy level:stable Pain: No Appetite:good Fevers/chills/sweats:No Bruising/bleeding/melena: See above Recent infections:No HEENT: negative Nausea/vomiting/diarrhea/constipation:No SOB/NOBLE/chest pain:No Change in adenopathy or other masses:No Unexpected weight loss or gain:No Skin rashes or petechiae:as above Musculoskeletal complaints:No Extremities: Negative upper and lower bilaterally Neurologic symptoms:No MEDS: Current Outpatient Prescriptions on File Prior to Visit Medication Sig Dispense Refill ??? hydroxychloroquine (PLAQUENIL) [...] were no vitals taken for this visit. GENERAL: Ms. Yusuf appears well and is [...] 2016 R LE 2016 LLE 2016 2017 2016 LABORATORY STUDIES No results found for this or any previous visit (from the past 24 hour(s)). RADIOLOGY STUDIES REVIEWED: CT Chest / Abdomen [...] plan to see her back in one year w/ Dr. Whitney. Plan cbc, cmp, sflc, spep and Quant ig At the time of the appointment. I would not plan another CAT scan , unless clinically indicated. SLE since dx - hemorrhagic pleural effusion. Pt seen in multidisciplinary clinic with Dr. Whitney of Dermatology. Copy Maria Fournier SHOW CARD LETTERER documented in this encounter Miscellaneous Notes Addendum Note - Farzaneh Mathew MD - 05/22/2018 1:12 PM EDT Addended by: FARZANEH MATHEW on: 05/22/2018 01:12 PM Modules accepted: SmartSet documented in this encounter Plan of Treatment Not on filedocumented as of this encounter Results Free Light Chains, Serum (09/03/2018 12:14 PM EST) athologist Signature [employer] Free 1.89 0.81 - [facility] Light Chains 2.98 mg/dL [facility] Lambda Free 1.23 0.86 - [facility] Light Chains 1.99 mg/dL [facility] [employer]/Lambda 1.5366 0.5000 - [facility] Free Light 2.4300 [facility] Comment: Please be advised that following a multi -institution study the reference interval for Serum Free Light Chains was updated August 25, 2017. Specimen Anatomical Collection Method Collection Time Receive d Time (Source) Location / / Volume Laterality Blood specimen 09/03/2018 12:14 9 (specimen) PM EST 12:21 PM EST Resulting Agency Comment Spec In Lab Farzaneh Mathew MD CHEMISTRY ORDERABLES Performing Organization Address City/State/ZIP [place] [address] Protein Electrophoresis, serum (09/03/2018 12:14 PM EST) Patholo gist Method Time Signature Total Prot 6.1 6.1 - 8.0 [place] Elec gm/dL [facility] Albumin Elect 4.09 3.60 - 6.00 [place] gm/dL [facility] Alpha1-Globul 0.22 0.10 - 0.30 [place] in gm/dL [facility] Alpha2-Globul 0.72 0.40 - 0.90 [place] in gm/dL [facility] Beta Globulin 0.57 0.50 - 1.00 [facility] gm/dL [facility] Gamma 0.51 0.50 - 1.30 [facility] Globulin gm/dL [facility] M1 Band None None [facility] Detected Detected [facility] Specimen Anatomical Collection Method Collection Time Receive d Time (Source) Location / / Volume Laterality Blood specimen 09/03/2018 12:14 9 (specimen) PM EST 12:21 PM EST Resulting Agency Comment Spec In Lab Farzaneh Mathew MD CHEMISTRY ORDERABLES Performing Organization Address City/State/ZIP Code Phon e Number [place] [phone] (ABNORMAL) Comprehensive metabolic panel (non-fasting) (09/03/2018 12:14 PM EST) P athologist Signature Glucose Lvl 116 65 - 199 [facility] mg/dL [facility] Comment: Diabetes: >=200 mg/dL plus symp toms BUN 12 8 - 18 mg/dL [facility] Creatinine 0.80 0.70 - 1.20 mg/dL [facility] Sodium 142 135 - 145 mmol/L [facility] Potassium 3.6 3.5 - 5.0 mmol/L [facility] Comment: Please note: ??Patients with WBC >100,00 0 may have falsely elevated Potassium levels. ??For accurate Potassium quantif ication in these patients send serum separator tube (gold top) for subsequent determinations. ??Contact the Clinical Chemistry Laboratory if there are any qu estions. Chloride 101 98 - 107 mmol/L [facility] CO2 26 22 - 31 mmol/L [facility] Anion Gap 15 5 - 15 mmol/L [facility] Calcium 8.2 (L) 8.5 - 10.5 mg/dL [facility] Total Protein 6.4 6.1 - 8.0 gm/dL [facility] Albumin 3.8 3.2 - 5.2 gm/dL [facility] AST 21 0 - 30 unit/L [facility] ALT 18 0 - 30 unit/L [facility] Alk Phos 117 (H) 40 - 104 unit/L [facility] Total Bilirubin 0.3 0.2 - 1.3 mg/dL [facility] Estimated GFR 82 >=60 mL/min/1.73 m?? [facility] Comment: The eGFR was calculated using the CKD-EP I equation. As with all creatinine based estimates of kidney function, eGFR values calculated with the CKD-EPI equation are not accurate in patients wi th acute kidney failure, extremes of body mass or the acutely ill. http://[employer]/[facility] eGFR 96 >=60 mL/min/1.73 m?? [facility] Comment: The eGFR was calculated using the CKD-EP I equation. As with all creatinine based estimates of kidney function, eGFR values calculated with the CKD-EPI equation are not accurate in patients wi th acute kidney failure, extremes of body mass or the acutely ill. http://[employer]/[facility] Specimen Anatomical Collection Method Collection Time Receive d Time (Source) Location / / Volume Laterality Blood specimen 09/03/2018 12:14 9 (specimen) PM EST 12:21 PM EST Resulting Agency Comment Spec In Lab Farzaneh Mathew MD CHEMISTRY ORDERABLES Performing Organization Address City/State/ZIP [place] [address] documented in this encounter Visit Diagnoses Diagnosis Amyloidosis cutis Other amyloidosis Amyloidosis, unspecified type DH ERRONEOUS ENCOUNTER documented in this encounter Care Teams Tire Fabric Inspector Relationship Specialty Start Date End Date Daniel Hinkle MD PCP - General Family Medicine 09/19/16 [address] [place] [address] documented as of this encounter
--- OUTSIDE RECORDS SUMMARY | 2022-05-27 14:51 | XMS_ITS | Encounter Summary ---
:1960 Author Organization [facility] [place] [address] Care Team Providers Name Role Phone Daniel Hinkle MD Primary Care Provider Encounter Details Date Type Department Care Team Description 05/01/2017 Office Visit Hematology and Josias He MD [facility] DR HEMATOLOGY/[place] [address] [facility] ENCOUNTER Oncology at [facility] Charlene Knight APRN [facility] DR HEMATOLOGY/[place] [address] [place] [id number] Social History Tobacco Use Types Packs/Day Years Used Date Former Smoker Cigarettes 1.5 15 Quit: 08/14/18 93 Smokeless Tobacco: Never Used Alcohol Use Standard Drinks/Week Comments Yes 2 (1 standard drink = 0.6 oz pure alcoho l) [facility] Alcohol Habits Answer Date Recorded How often [...] documented as of this encounter Progress Notes Vasiliy He MD - 05/01/2017 2:00 PM EDT seeb by dr. lo documented in this encounter Plan of Treatment Not on filedocumented as of this encounter Visit Diagnoses Diagnosis DH ERRONEOUS ENCOUNTER documented in this encounter Care Teams Store Sales Consultant Relationship Specialty Start Date End Date Daniel Hinkle MD PCP - General Family Medicine 09/19/16 [address] [place] [address] documented as of this encounter
--- OUTSIDE RECORDS SUMMARY | 2022-05-27 14:51 | XMS_ITS | Encounter Summary ---
:1960 Author Organization [facility] [place] [address] Care Team Providers Name Role Phone Daniel Hinkle MD Primary Care Provider Reason for Visit Reason Onset Date Comments Other 02/15/2017 record request Encounter Details Date Type Department Care Team Description 02/15/2017 Telephone [place]ed[place] [facility] Eber Romano, Other (record request) [facility] [place] [address] [facility] [phone] ORTHOPAEDIC SURGERY [place], [place] [address] Social History Tobacco Use Types [...] this encounter Miscellaneous Notes Telephone Encounter - Anita Salas - 02/16/2017 9:59 AM EDT Received msg from Dr. Virk's office that the patient has not had right knee MRI. Francie will need full joint series as only AP and lateral were completed Telephone Encounter - Anita Salas - 02/15/2017 3:44 PM EDT Call placed to Francie; states she does not have her MRI on a CD. She believes it was done at Dr. Sims office, we do not have any information from them. I called [facility] - they do not have the MRI but do have AP/LAT xray which is in our system I then called Dr. Virk's office and left a message requesting that they call us back to let us know if they have the imaging, if so to mail via CD. documented in this encounter Plan of Treatment Not on filedocumented as of this encounter Visit Diagnoses Not on filedocumented in this encounter Care Teams Speech Language Pathology Assistant Relationship Specialty Start Date End Date Daniel Hinkle MD PCP - General Family Medicine 09/19/16 [place] [address] documented as of this encounter
--- OUTSIDE RECORDS SUMMARY | 2022-05-27 14:51 | XMS_ITS | Encounter Summary ---
:1960 Author Organization [facility] [place] [address] Care Team Providers Name Role Phone Daniel Hinkle MD Primary Care Provider Reason for Referral Consultation (Routine) - Specialty Diagnoses / Procedures Referred By Contact Refer red To Contact Orthopaedics Diagnoses Primary osteoarthritis of knee, unspecified laterality RIGHT KNEE PAIN- TORN MENISCUS Patricio Lowe MD Sparks, Michael B, MD [facility] RHEUMATOLOGY DEPT. ORTHOPAEDIC SURGERY [place], [place] [id number] [place] [address] Fax: Referral ID Status Reason Start Date Expiration Date Visits V isits Requested Authorized [id number] Consult, 02/02/2017 02/02/2018 2 2 Test & Treat Encounter Details Date Type Department Care Team Description 02/02/2017 Orders Only Rheumatology at [facility] Patricio Lowe, Primary osteoarthritis [facility] MD of knee, unspecified [address] [place] [address] [facility]ENTER [phone] RHEUMATOLOGY DEPT. [place], [place] [address] Social History Tobacco Use Types [...] as of this encounter Plan of Treatment Scheduled Referrals Name Type Priority Associated Diagnoses Order S chedule Referral to Outpatient Routine Primary osteoarthritis Order ed: Orthopaedics Referral of knee, unspecified 017 laterality documented as of this encounter Visit Diagnoses Diagnosis Primary osteoarthritis of knee, unspecif ied laterality documented in this encounter Care Teams Service Mechanic Relationship Specialty Start Date End Date Daniel Hinkle MD PCP - General Family Medicine 09/19/16 [address] [place] [address] documented as of this encounter
--- OUTSIDE RECORDS SUMMARY | 2022-05-27 14:51 | XMS_ITS | Encounter Summary ---
:1960 Author Organization [facility] [place] [address] Care Team Providers Name Role Phone Daniel Hinkle MD Primary Care Provider Reason for Visit Reason Onset Date Comments Injections 08/28/2017 Encounter Details Date Type Department Care Team Description 08/28/2017 Telephone Orthopaedics at [facility] Eber Romano MD [facility] [place] [address] ORTHOPAEDIC SURGERY [phone] [place], [place] [address] (Wo rk) Social History Tobacco Use Types Packs/Day Years Used Date Former Smoker Cigarettes 1.5 15 Quit: 08/14/18 93 Smokeless Tobacco: Never Used Alcohol Use Standard Drinks/Week Comments Yes 2 (1 standard drink = 0.6 oz pure alcoho l) [facility] Alcohol Habits Answer Date Recorded [...] this encounter Miscellaneous Notes Telephone Encounter - Izzy Menjivar - 08/28/2017 2:49 PM EST Patient is scheduled Telephone Encounter - Lina Stevens, RN - 08/28/2017 2:24 PM EST Patient's request for injection appointment of the right knee has been reviewed by Clinical Support. Is it too soon for patient to have this injection? No Date of last injection? 04/26/17 Is this a synvisc/orthovisc injection? No Enter [employer] Prior Auth if Synvisc or Orthovisc injection. N/A Does this injection need to be scheduled in radiology under fluoro? No Have orders been placed? N/A Injection within 3 months prior to joint arthroplasty or arthroscopy is associated with increased rates of postoperative infection: this includes, hip, knee, and shoulder. Telephone Encounter - Nuris Matos - 08/28/2017 1:04 PM EST Best phone # to reach patient for [phone] Patient requests appointment for injection of the Right knee. Patient requests an injection of (product type: cortisone/Synvisc/Monovisc/other): Cortisone I will send this request to the Clinical Support team for review. Some injections require prior authorization, special orders, or an appointment somewhere other than our clinic, so knowing this in advance will help us to better meet your needs. If the injection requires prior authorization, it may take 14 or more business days before we can schedule your appointment. As soon as this service approved by the clinical support team, we will call you to schedule the appointment. documented in this encounter Plan of Treatment Not on filedocumented as of this encounter Visit Diagnoses Not on filedocumented in this encounter Care Teams Motor Racer Relationship Specialty Start Date End Date Daniel Hinkle MD PCP - General Family Medicine 09/19/16 [address] [place] [address] documented as of this encounter
--- OUTSIDE RECORDS SUMMARY | 2022-05-27 14:51 | XMS_ITS | Encounter Summary ---
:1960 Author Organization [facility] Address [address] [place] [address] Care Team Providers Name Role Phone Daniel Hinkle MD Primary Care Provider Encounter Details Date Type Department Care Team Description 02/22/2017 Hospital Encounter XRay at [facility] Eebr Romano Right knee pain, [address] Lilliana MD unspecified [place], [place] [facility] chronicity [address] [place] [phone] [place] [address] Social History Tobacco Use Types Packs/Day Years [...] Sig Dispensed Refills Start Date End Date ibuprofen (ADVIL;MOTRIN) 800 Take 1 tablet by 30 tablet 12 0 02/04/2016 mg Tablet mouth every 8 hours as needed for Pain. levothyroxine (SYNTHROID) 125 Take 125 mcg by 0 mcg Tablet mouth nightly. fluticasone (FLOVENT) 220 Inhale 2 puffs 0 mcg/actuation HFA Aerosol into the lungs 2 Inhaler times daily. cetirizine (ZYRTEC) 10 mg Take 10 mg by 0 Tablet mouth daily. aspirin 81 mg Tablet, Delayed Take 1 tablet by 0 01/28/2015 Release (E.C.) mouth daily. albuterol (PROVENTIL Inhale 2 puffs 0 HFA;VENTOLIN HFA;PROAIR) 90 into the lungs mcg/actuation HFA Aerosol every 4 hours as Inhaler needed for Wheezing. Use with spacer simvastatin (ZOCOR) 20 mg Take 20 mg by 0 tablet mouth nightly. methotrexate 2.5 mg Take 4 tablets 36 tablet 3 11/08/2016 0 11/27/2017 TabletIndications: Lung by mouth once a involvement in systemic lupus week. erythematosus hydroCHLOROthiazide Take 2 tablets 60 tablet 11 09/15/2016 0 09/15/2017 (HYDRODIURIL) 25 mg by mouth daily. TabletIndications: Edema, unspecified type hydroxychloroquine Take 1 tablet by 60 tablet 6 11/23/2015 02/24/2017 (PLAQUENIL) 200 mg mouth daily. TabletIndications: Lupus documented as of this encounter Plan of Treatment Not on filedocumented as of this encounter Procedures Procedure Name Priority Date/Time Associated Diagnosis Comme nts XR KNEE STANDING Routine 02/22/2017 8:12 AM Right knee pain, R esults for this ALIGNMENT AP LAT EDT unspecified procedure a re in [facility] chronicity the result s RIGHT section. documented in this encounter Results XR Knee Standing Alignment [facility] [place] Right (02/22/2017 8:12 AM EDT) Anatomical Region Laterality Modality Right Digital Radiography Specimen (Source) Anatomical Location Collection Method / Collectio n Time Received Time / Laterality Volume Impressions 02/22/2017 9:20 AM EDT Osteoarthritis of the right knee with severe lateral compartment narrowing. Valgus malalignment of the right knee. Standing alignment study suggests possib le leg length discrepancy. Narrative 02/22/2017 9:20 AM EDT EXAMINATION: XR KNEE STANDING ALIGNMENT AP LAT [facility] SKYLINE RIGHT CLINICAL HISTORY: STANDING ALIGNMENT, RO VALERY RUGGIERO TECHNIQUE: Separate images of the pelvis , knees and feet were acquired in the AP projection with the patient standing. Th pb images were stitched together to form a composite image of the pelvis and legs allowing for evaluation of lower extremity alignment in the weight bearin g position. In addition, AP standing, PA Pyle, patellofemoral and right late ral knee films were acquired COMPARISON: None FINDINGS: As displayed on the standing alignment s tudy there is pelvic obliquity suggesting leg length shortening on the right compared to the left. This appears to be largely due to differences in the length of the right lower leg which appear shorter than the left. The mechan ical axis is slightly medial of midline on the left and laterally displaced on t he right. At the right knee no effusion or focal s welling is identified. Marginal osteophytes are present and there is ext ensive subchondral sclerosis. Severe joint space narrowing is present at the lateral compartment. Procedure Note Kevon Aguilar MD - 02/22/2017Forma tting of this note might be different from the original. EXAMINATION: XR KNEE STANDING ALIGNMENT AP LAT [place] SKYLINE RIGHT CLINICAL HISTORY: STANDING ALIGNMENT, RO [place], [place] TECHNIQUE: Separate images of the pelvis , knees and feet were acquired in the AP projection with the patient standing. Th pb images were stitched together to form a composite image of the pelvis and legs allowing for evaluation of lower extremity alignment in the weight bearin g position. In addition, AP standing, PA Pyle, patellofemoral and right late ral knee films were acquired COMPARISON: None FINDINGS: As displayed on the standing alignment s tudy there is pelvic obliquity suggesting leg length shortening on the right compared to the left. This appears to be largely due to differences in the length of the right lower leg which appear shorter than the left. The mechan ical axis is slightly medial of midline on the left and laterally displaced on t he right. At the right knee no effusion or focal s welling is identified. Marginal osteophytes are present and there is ext ensive subchondral sclerosis. Severe joint space narrowing is present at the lateral compartment. IMPRESSION Osteoarthritis of the right knee with se donnell lateral compartment narrowing. Valgus malalignment of the right knee. Standing alignment study suggests possib le leg length discrepancy. Eber Romano MD IMG DX ORDERABLES documented in this encounter Visit Diagnoses Diagnosis Right knee pain, unspecified chronicity documented in this encounter Care Teams Compensation Agent Relationship Specialty Start Date End Date Daniel Hinkle MD PCP - General Family Medicine 09/19/16 [address] [place] [address] documented as of this encounter
--- OUTSIDE RECORDS SUMMARY | 2022-05-27 14:51 | XMS_ITS | Encounter Summary ---
:1960 Author Organization [place] [address] Care Team Providers Name Role Phone Daniel Hinkle MD Primary Care Provider Reason for Visit Reason Comments Right Knee Pain injection Encounter Details Date Type Department Care Team Description 09/08/2017 Office [place] [facility] [place]teo Argueta Primary osteoarthritis [facility] KOLE Grijalva [place] [address] ORTHOPAEDIC SURGERY [phone] [place], [place] [address] (Wo rk) Social History Tobacco Use Types Packs/Day Years Used Date Former Smoker Cigarettes 1.5 15 Quit: 08/14/18 93 Smokeless Tobacco: Never Used Alcohol Use Standard Drinks/Week Comments Yes 2 (1 standard drink = 0.6 oz pure alcoho l) [facility] Alcohol Habits Answer Date Recorded How [...] Sign Reading Time Taken Comments Blood Pressure 127/56 09/08/2017 3:35 PM EST Pulse 67 09/08/2017 3:35 PM EST Temperature - - Respiratory Rate - - Oxygen Saturation - - Inhaled Oxygen Concentration - - Weight 85.7 kg (189 lb) 09/08/2017 3:35 PM EST Height 163.8 cm (5' 4.5) 09/08/2017 3:35 PM EST Body Mass Index 31.94 09/08/2017 3:35 PM EST documented in this encounter Progress Notes Matteo Argueta PA - 09/08/2017 3:30 PM EST HPI: 57 yo female returns. She has known OA to her right knee. We had injected her knee previously with good therapeutic response. She would like repeat injection. There has been no injuries or setbacks. PHYSICAL EXAM: Ambulatory without assist or antalgia. No effusion today. No pain or laxity with varus and valgus stress. Flexion to 120 today. No jointline tenderness. Skin is intact. ASSESSMENT: Right knee pain, OA, seeking injection PLAN: We discussed her knee and the [...] osteoarthrosis, lower leg documented in this encounter Care Teams Yarrow Gatherer Relationship Specialty Start Date End Date Daniel Hinkle MD PCP - General Family Medicine 09/19/16 [place] [address] documented as of this encounter
--- OUTSIDE RECORDS SUMMARY | 2022-05-27 14:51 | XMS_ITS | Encounter Summary ---
:1960 Author Organization [facility] [place] [address] Care Team Providers Name Role Phone Daniel Hinkle MD Primary Care Provider Reason for Visit Reason Onset Date Comments Prior Authorization 01/04/2017 Encounter Details Date Type Department Care Team Description 01/04/2017 Telephone [place]ology [place] [facility] [place] [address] Social History Tobacco Use Types Packs/Day [...] this encounter Miscellaneous Notes Telephone Encounter - Yudy Castro - 01/04/2017 11:08 AM EDT Medication Prior Authorization BÁRBARA Medication name/dose/directions: SULFAMETHAZOLE-TRIMETHOPRIM 400-80MG - 1X DAILY Rationale for request: Acute recurrent pansinusitis Health [place]: [place] Authorizing senior sales representative name: DAISHA Faxed to health plan on: 01/04/17 Health plan decision: NOT REQUIRED Quantity approved: Authorization number: [id number] Start date: End date: documented in this encounter Plan of Treatment Not on filedocumented as of this encounter Visit Diagnoses Not on filedocumented in this encounter Care Teams It Communications Specialist Relationship Specialty Start Date End Date Daniel Hinkle MD PCP - General Family Medicine 09/19/16 [address] [place] [address] documented as of this encounter
--- OUTSIDE RECORDS SUMMARY | 2022-05-27 14:51 | XMS_ITS | Encounter Summary ---
:1960 Author Organization [facility] [place] [address] Care Team Providers Name Role Phone Daniel Hinkle MD Primary Care Provider Encounter Details Date Type Department Care Team Description 04/24/2019 Hospital Encounter XRay at [facility] [place] Juan Antonio Eber Primary osteoarthritis [address] [place] [address] Dr Lilliana MD of right knee [facility] [address] [place] [phone] [place] [address] Social History Tobacco Use Types Packs/Day Years [...] Sig Dispensed Refills Start Date End Date loratadine (CLARITIN) 10 mg Take 10 mg by 0 Tablet mouth daily. losartan-hydrochlorothiazid take 1 tablet by 0 e (HYZAAR) 50-12.5 mg mouth once daily Tablet for blood pressure -THIS REPLACES LISINOPRIL/HCTZ cholecalciferol, Vitamin Take by mouth 0 D3, 1,000 unit Tablet daily. CALCIUM 500 WITH D 500 Take 1 tablet by 0 018 mg(1,250mg) -400 unit mouth daily. Tablet [...] 1 t at bedtime 180 tablet 3 04/03/201911/18/2019 mg TabletIndications: for 2-4 days, if Restless legs syndrome not sleeping well enough, may increase to 2 T thereafter, call if not better documented as of this encounter Plan of Treatment Not on filedocumented as of this encounter Procedures Procedure Name Priority Date/Time Associated Diagnosis Comme nts XR KNEE STANDING Routine 04/24/2019 11:02 Primary osteoarthrit is Results for this ALIGNMENT AP LAT AM EDT of right knee procedure are in [facility] the result s RIGHT section. documented in this encounter Results XR Knee Standing Alignment AP Lat [place] Right (04/24/2019 11:02 AM EDT) Anatomical Region Laterality Modality Right Digital Radiography Specimen (Source) Anatomical Location Collection Method / Collectio n Time Received Time / Laterality Volume Impressions 04/24/2019 2:47 PM EDT 1. ??Overall similar tricompartmental osteoarthropathy of the right knee, most severe involving the lateral joint space , with increased valgus malalignment. 2. ??Unchanged mild narrowing of the med ial compartment joint space of the left knee with new mild patellofemoral joint space narrowing, without significant osteophyte formation. No change in mild medial shift of the weightbearing axis on the left. 3. ??Similar pelvic tilt. Thank you for letting us participate in the care of this patient. For questions regarding this report, please contact e number below. ? Narrative 04/24/2019 2:47 PM EDT EXAMINATION: XR KNEE STANDING ALIGNMENT AP LAT [place] RIGHT CLINICAL HISTORY: R knee OA; R knee tulio isone injection TECHNIQUE: Separate images of the pelvis , knees and feet were acquired in the AP projection with the patient standing. pb images were stitched together to form a composite image of the pelvis and legs allowing for evaluation of lower extremity alignment in the weight bearin g position. Additional AP standing, PA Pyle, and sunrise radiographs of th e bilateral knees and lateral radiographs of the right knee were obtai cliff, total of 7 films. COMPARISON: Standing alignment and radio graphs of the bilateral knees (AP standing, PA Pyle, and sunrise view s of the bowel knees and lateral view of the right knee) 02/22/2017. FINDINGS: Standing alignment: There is a greater l ateral shift of the weightbearing axis the right lower extremity, now shifted a pproximately 39 mm from the midline. There is stable slight medial shift of t he weightbearing axis left lower extremity by approximately 10 mm from th e midline. There is similar pelvic tilt, the left femoral head projecting higher than the right, as well as persistent right tibiotalar medial tilt. Soft tissu e calcifications are again noted in the bilateral calves, right greater than lef t and overall slightly progressed on the right. Right knee: No acute fracture or disloca tion. Tricompartmental osteoarthropathy is again noted, most severe involving th e lateral compartment joint space with there is fvoq-el-voak articulation with accompanying subchondral sclerosis and marginal osteophyte formation. Overall a ppearance is largely unchanged from prior. No chondrocalcinosis or intra-art icular body is identified. No patellar subluxation or tilt. A small joint effus ion is present. Left knee: No acute fracture or dislocat ion. Mild narrowing of the medial compartment joint space is largely uncha nged. There is now mild narrowing of the patellofemoral joint space, laterally. N o significant osteophytosis. No chondrocalcinosis or intra-articular bod y identified. Procedure Note Chelsy Wilson MD - 04/24/2019Formatt ing of this note might be different from the original. EXAMINATION: XR KNEE STANDING ALIGNMENT AP LAT [place] RIGHT CLINICAL HISTORY: R knee OA; R knee tulio isone injection TECHNIQUE: Separate images of the pelvis , knees and feet were acquired in the AP projection with the patient standing. Th pb images were stitched together to form a composite image of the pelvis and legs allowing for evaluation of lower extremity alignment in the weight bearin g position. Additional AP standing, PA Pyle, and sunrise radiographs of th e bilateral knees and lateral radiographs of the right knee were obtai cliff, total of 7 films. COMPARISON: Standing alignment and radio graphs of the bilateral knees (AP standing, PA Pyle, and sunrise view s of the bowel knees and lateral view of the right knee) 02/22/2017. FINDINGS: Standing alignment: There is a greater l ateral shift of the weightbearing axis the right lower extremity, now shifted a pproximately 39 mm from the midline. There is stable slight medial shift of t he weightbearing axis left lower extremity by approximately 10 mm from th e midline. There is similar pelvic tilt, the left femoral head projecting higher than the right, as well as persistent right tibiotalar medial tilt. Soft tissu e calcifications are again noted in the bilateral calves, right greater than lef t and overall slightly progressed on the right. Right knee: No acute fracture or disloca tion. Tricompartmental osteoarthropathy is again noted, most severe involving th e lateral compartment joint space with there is fiwe-rk-qbjm articulation with accompanying subchondral sclerosis and marginal osteophyte formation. Overall a ppearance is largely unchanged from prior. No chondrocalcinosis or intra-art icular body is identified. No patellar subluxation or tilt. A small joint effus ion is present. Left knee: No acute fracture or dislocat ion. Mild narrowing of the medial compartment joint space is largely uncha nged. There is now mild narrowing of the patellofemoral joint space, laterally. N o significant osteophytosis. No chondrocalcinosis or intra-articular bod y identified. IMPRESSION 1. Overall similar tricompartmental oste oarthropathy of the right knee, most severe involving the lateral joint space , with increased valgus malalignment. 2. Unchanged mild narrowing of the media l compartment joint space of the left knee with new mild patellofemoral joint space narrowing, without significant osteophyte formation. No change in mild medial shift of the weightbearing axis on the left. 3. Similar pelvic tilt. Thank you for letting us participate in the care of this patient. For questions regarding this report, please contact e number below. Eber Romano MD IMG DX ORDERABLES documented in this encounter Visit Diagnoses Diagnosis Primary osteoarthritis of right knee Primary localized osteoarthrosis, lower leg documented in this encounter Care Teams Hair Dryer Relationship Specialty Start Date End Date Daniel Hinkle MD PCP - General Family Medicine 09/19/16 [place] [id number] documented as of this encounter
--- OUTSIDE RECORDS SUMMARY | 2022-05-27 14:51 | XMS_ITS | Encounter Summary ---
:1960 Author Organization [facility] [place] [address] Care Team Providers Name Role Phone Daniel Hinkle MD Primary Care Provider Reason for Visit Reason Onset Date Comments Triage 07/31/2019 Encounter Details Date Type Department Care Team Description 07/31/2019 Telephone [place] [facility] [place] [address] Social History Tobacco Use Types Packs/Day [...] this encounter Miscellaneous Notes Telephone Encounter - Vero Manjarrez RN - 07/31/2019 10:07 AM EST Patient had a TKR performed on 07/16. She calls reporting pain in the surgical site and asked for 's advisement. I left Erin a return voicemail instructing her to contact her surgeon if she is having surgical pain. However, I also welcomed her to call rheumatology back if she has specific questions/concerns for . I left my name and callback number for her if needed. documented in this encounter Plan of Treatment Not on filedocumented as of this encounter Visit Diagnoses Not on filedocumented in this encounter Care Teams Barking Machine Feeder Relationship Specialty Start Date End Date Daniel Hinkle MD PCP - General Family Medicine 09/19/16 [address] [place] [address] documented as of this encounter
--- OUTSIDE RECORDS SUMMARY | 2022-05-27 14:51 | XMS_ITS | Encounter Summary ---
:1960 Author Organization [facility] [place] [address] Care Team Providers Name Role Phone Daniel Hinkle MD Primary Care Provider Reason for Visit Reason Onset Date Comments Triage 10/18/2018 Encounter Details Date Type Department Care Team Description 10/18/2018 Telephone Rheumatology at [facility] [place] [address] Social History Tobacco Use Types Packs/Day [...] Telephone Encounter - Vero Manjarrez RN - 10/18/2018 3:07 PM EST I called Francie back to inform her to keep taking her Plaqnenil regardless of being sick or taking antibiotics.I updated her with 's knowledge as well: Plaquenil is not an immunosuppressant nor does it increase the risk of infection. It is actually a treatment for malaria. Sinus sx are not a reason to stop, in fact it is dangerous to do so. I then added that she should ask her PCP for an ENT referral, per 's recommendation. She thanked me for this information, and stated she would ask her PCP about the referral. Telephone Encounter - Patricio Lowe MD - 10/18/2018 1:48 PM EST Au contraire. Plaquenil is not an immunosuppressant nor does it increase the risk of infection. It is actually a treatment for malaria. Sinus sx are not a reason to stop, in fact it is dangerous to do so. What she needs is an ENT referral to evaluate whether there are plumbing issues as the root causeof these infections. She needs to discuss with her PCP Patricio Lowe Telephone Encounter - Vero Manjarrez RN - 10/18/2018 12:22 PM EST Francie called wondering if she needed to stop taking her HCQ (plaquenil) because she has been on so many antibiotics for about 2 months, and is currently taking them. She states this is because she's had a recurrent sinus infection that just wont go away for about that length of time, and actually got a CT to confirm diagnosis. I called Francie back to confirm her request. I will pass this along to for her. I informed her that Plaquenil is an immune suppressant, and more than likely we will advise her to stop taking it. She denies fever. I informed her I would follow-up with her as soon as I hear back from , and let her know she can call back at anytime if needed. documented in this encounter Plan of Treatment Not on filedocumented as of this encounter Visit Diagnoses Not on filedocumented in this encounter Care Teams Mamma Logist Relationship Specialty Start Date End Date Daniel Hinkle MD PCP - General Family Medicine 09/19/16 [address] [place] [address] documented as of this encounter
--- OUTSIDE RECORDS SUMMARY | 2022-05-27 14:51 | XMS_ITS | Encounter Summary ---
:1960 Author Organization [facility] [place] [address] Care Team Providers Name Role Phone Daniel Hinkle MD Primary Care Provider Reason for Visit Reason Onset Date Comments Other 08/30/2017 Encounter Details Date Type Department Care Team Description 08/30/2017 Telephone Rheumatology at [facility] Juan [place], [place] [address] Social History Tobacco Use Types Packs/Day [...] Telephone Encounter - Juan Waters RN - 08/30/2017 11:48 AM EST Patient called back by this RN, per Dr. Lowe, may start on z-elisabeth for sinusitis, bronchitis. Patientstates she is currently being evaluated by health long term care social worker, will call back if she has any further issues. Telephone Encounter - Juan Waters RN - 08/30/2017 10:30 AM EST Patient calls clinic, still with congestion, producing green sputum, poor sleep. States feels warm but can't find thermometer. States has called PCP with no call back. Patient advised that assessment at walk-in may be appropriate and this nurse will notify Dr. Lowe of patient's current status, expressed understanding. documented in this encounter Plan of Treatment Not on filedocumented as of this encounter Visit Diagnoses Not on filedocumented in this encounter Care Teams Parts Chaser Relationship Specialty Start Date End Date Daniel Hinkle MD PCP - General Family Medicine 09/19/16 [place] [address] documented as of this encounter
--- OUTSIDE RECORDS SUMMARY | 2022-05-27 14:51 | XMS_ITS | Encounter Summary ---
:1960 Author Organization [facility] [place] [address] Care Team Providers Name Role Phone Daniel Hinkle MD Primary Care Provider Reason for Visit Reason Onset Date Comments Injections 04/05/2019 Encounter Details Date Type Department Care Team Description 04/05/2019 Telephone Orthopaedics at [facility] Farzaneh Cason S, Injections [facility] [place] [address] [facility] [phone] ORTHOPAEDIC SURG [place], [place] [address] (Wo rk) Social History Tobacco [...] this encounter Miscellaneous Notes Telephone Encounter - Ly Hallman - 04/09/2019 8:21 AM EDT Patient given stat scan [phone] to have PCP fax office note from 11.16.18. Patient scheduled with Dr. [facility] for injection 04.24.19 with x- rays prior, since she hasn't had one done since 2017. Telephone Encounter - Cielo Ordoñez - 04/05/2019 1:56 PM EDT PT called back and stated the last injection in knee was done on 11/16/18. It was done at her PCP in [facility]. Telephone Encounter - Estella Gray - 04/05/2019 1:44 PM EDT Best phone # to reach patient for [phone] Best days/times to schedule the appointment: Late am any day and would like to see Naheed Is it acceptable to leave a voicemail message with your appointment if we are unable to reach you directly? yes Patient requests appointment for injection of the Right knee. Patient requests an injection of (product type: cortisone/Synvisc/Monovisc/other): I will send this request to the [...] on filedocumented in this encounter Care Teams Lead Clinical Research Coordinator Relationship Specialty Start Date End Date Daniel Hinkle MD PCP - General Family Medicine 09/19/16 [place] [address] documented as of this encounter
--- OUTSIDE RECORDS SUMMARY | 2022-05-27 14:51 | XMS_ITS | Encounter Summary ---
:1960 Author Organization [facility] [place] [address] Care Team Providers Name Role Phone Daniel Hinkle MD Primary Care Provider Reason for Visit Reason Onset Date Comments Injections 02/06/2018 Encounter Details Date Type Department Care Team Description 02/06/2018 Telephone Orthopaedics at [facility] [place] Eber Romano MD [facility] [place] [address] ORTHOPAEDIC SURGERY [phone] [place], [place] [address] (Wo rk) Social History Tobacco Use Types Packs/Day Years Used Date Former Smoker Cigarettes 1.5 15 Quit: 08/14/18 93 Smokeless Tobacco: Never Used Alcohol Use Standard Drinks/Week Comments Yes 2 (1 standard drink = 0.6 oz pure alcoho l) [facility] Alcohol Habits Answer Date Recorded How [...] Notes Telephone Encounter - Izzy Menjivar - 02/06/2018 11:07 AM EDT Patient scheduled Telephone Encounter - Estella Gray - 02/06/2018 10:08 AM EDT Best phone # to reach the patient for schedulin Patient requests appointment for injection of the Right knee. Patient requests an injection of cortisone Some injections require prior authorization, special orders, or an appointment somewhere other than our clinic, so knowing this in advance will help us to better meet your needs. If the injection requires prior authorization, we will schedule your appointment no earlier than twoweeks from the date that the order is entered in order to allow for the prior authorization process.Please note: if prior authorization is not completed before your appointment, we may need to call you to reschedule your appointment. Did you inform the patient of the above: yes documented in this encounter Plan of Treatment Not on filedocumented as of this encounter Visit Diagnoses Not on filedocumented in this encounter Care Teams Instrument Technician Helper Relationship Specialty Start Date End Date Daniel Hinkle MD PCP - General Family Medicine 09/19/16 [address] [place] [address] documented as of this encounter
--- OUTSIDE RECORDS SUMMARY | 2022-05-27 14:51 | XMS_ITS | Encounter Summary ---
:1960 Author Organization [facility] [place] [address] Care Team Providers Name Role Phone Daniel Hinkle MD Primary Care Provider Reason for Visit Reason Onset Date Comments Other 12/13/2017 Encounter Details Date Type Department Care Team Description 12/13/2017 Telephone [place]ology [place] [facility] [place] [address] Social History Tobacco Use Types Packs/Day [...] Telephone Encounter - Juan Waters RN - 12/14/2017 8:23 AM EDT Images from the original note were not included. Patricio Lowe MD Gavalakis, Rory A, RN ? Caller: Unspecified (Yesterday, 11:45 AM) ? I am guessing the cream is Diclofenac Gel. ??However, the last time she called. Ms. Escobar, she was having abdominal pain and thinking about going to the ER. ??Nothing can be prescribed until we havethe records of that visit showed. ?? Patricio Lowe Did go to ER ([facility]), labs and ct-scan. Saw PCP, placed on different abx for 7 days (moxifloxacin)and has been feeling better, just finished abx today. Telephone Encounter - Juan Waters RN - 12/13/2017 12:00 PM EDT Patient calls, leaves message stating has hand arthritis. Discussed cream for pain at previous appointment. She calls to inquire about this cream. documented in this encounter Plan of Treatment Not on filedocumented as of this encounter Visit Diagnoses Not on filedocumented in this encounter Care Teams Investigator Utility Bill Complaints Relationship Specialty Start Date End Date Daniel Hinkle MD PCP - General Family Medicine 09/19/16 [place] [id number] documented as of this encounter
--- OUTSIDE RECORDS SUMMARY | 2022-05-27 14:51 | XMS_ITS | Encounter Summary ---
:1960 Author Organization [facility] Address One [facility] [place] [address] Care Team Providers Name Role Phone Daniel Hinkle MD Primary Care Provider Encounter Details Date Type Department Care Team Description 09/18/2017 Office Visit Rheumatology at [facility] Patricio Lowe Lupus erythematosus, unspeci fied form; [facility] MD Sravan Dyspnea, unspecified type; [facility] Post-traumatic osteoarthriti s of right knee; [place] [address] CENTER Diverticulitis of large intestine withou t perforation or abscess, unspecified bleeding status; [phone] RHEUMATOLOGY Restless [place] [address] Social History Tobacco Use Types Packs/Day Years [...] Sign Reading Time Taken Comments Blood Pressure 138/64 09/18/2017 2:17 PM EST Pulse 67 09/18/2017 2:17 PM EST Temperature 36.6 ??C (97.8 ??F) 09/18/2017 2:17 PM EST Respiratory Rate - - Oxygen Saturation 98% 09/18/2017 2:17 PM EST Inhaled Oxygen Concentration - - Weight 84.8 kg (187 lb) 09/18/2017 2:17 PM EST Height 163.8 cm (5' 4.5) 09/18/2017 2:17 PM EST Body Mass Index 31.6 09/18/2017 2:17 PM EST documented in this encounter Patient Instructions Patient InstructionsPatricio Lowe MD - 09/18/2017 2:00 PM EST 1. Taper gabapentin to 300 mg tonight and tomorrow, then stop 2. Begin Mirapex (pramipexole) 0.125 mg 1-2 t starting Monday, call if not better in 1 week 3. Resume MTX when approved by ENT 4. Consider sinus irrigation after discussing with ENT documented in this encounter Progress Notes Patricio Lowe MD - 09/18/2017 2:00 PM EST Subjective: Patient ID: Francie Yusuf is a [...] shortness of breath prompting an admission to [facility] in October 2015 where patchy subsegmental opacities [...] year and suggests restriction more than obstruction. When last seen 06.12.2017, outside labs received: K 2.6,chemistries fine except for AST minimal elevation. CBC okay. CT scan report from evaluation of LLQ abd pain: diverticulitis of mid-descending colon without abscess Interval History: Ms. Yusuf is seen in 4 month follow up. Lots of recent phone calls for persistent URI sx eventually treated with doxycycline 100 mg bid. Recent (09.08.17 injection right knee in [facility] Ortho. Switched to Augmentin, steroids, will see ENT at [facility] to clear out sinuses. Otherwise 'Not too bad' as held MTX since URI sx for 2 months. Has lost some weight. Occasionally hand pain and leg pain at nigth. Breathing 'not bad' Sciatica left sided, worse with sitting or lying with fantastic response to injection No more flares of diverticulitis Concerned about gabapentin, ran out and reported that it no longer helps her sleep at night Review of Systems Constitutional: No fevers, chills, [...] CXR and echocardiogram. She was transferred to [facility] s/p IR guided drainage of 70cc of [...] She has lost some weight. Blood pressure 138/64, pulse 67, temperature 36.6 ??C (97.8 ??F), temperature source Oral, height 163.8 cm (5' 4.5), weight 84.8 kg (187 lb), SpO2 98 %. Skin exam: No [...] Plan: Lupus pneumonitis with some improvement on MTX, now with other issues (sinusitis). Gabapentin not great, wants something else for RLS. Will switch to Mirapex Hard to evaluate joints and lung as off MTX and on prednisone Recommend 1. Taper gabapentin to 1 T at bedtime for two days and then stop 2. Start Mirapex 1 T at bedtime, may increase to 2 T at bedtime, call if no improvement after 1 week 3. Retume Methtotrexae after ENT visist, consider irrigation of sinuses. 4. DEXA per Dr. Hinkle. 5. BP under control Level 5 follow up Patricio Lowe M.D. documented in this encounter Plan of Treatment Not on filedocumented as of this encounter Visit Diagnoses Diagnosis Lupus erythematosus, unspecified form Dyspnea, unspecified type Post-traumatic osteoarthritis of right k nee Secondary localized osteoarthrosis, lowe r leg Diverticulitis of large intestine withou t perforation or abscess, unspecified bleeding status Restless legs syndrome Restless legs syndrome (RLS) documented in this encounter Care Teams Customs Agent Relationship Specialty Start Date End Date Daniel Hinkle MD PCP - General Family Medicine 09/19/[address] [place] [address] documented as of this encounter
--- OUTSIDE RECORDS SUMMARY | 2022-05-27 14:51 | XMS_ITS | Encounter Summary ---
:1960 Author Organization [facility] Address [facility] [place] [address] Care Team Providers Name Role Phone Daniel Hinkle MD Primary Care Provider Reason for Visit Reason Onset Date Comments Other 01/10/2017 Medication Question Encounter Details Date Type Department Care Team Description 01/10/2017 Telephone Rheumatology at [facility] Kristy Asher, Other (Medication [facility] Marquis kingsley RN Question) [place] [address] Social History Tobacco Use Types Packs/Day [...] Telephone Encounter - Kristy Asher RN - 01/11/2017 10:48 AM EDT Francie wants to know if she should continue with Bactrim, she is out and states that Pharmacy told her that she needs another PA for Bactrim. Recently PCP put her on Doxycycline for 21 days for a tick bite. Reports the site was Red, Warm, anditchy. Francie reports that she has been off Prednisone for a week now and wants to know if the Bactrim is still necessary. No. She can stay off. ??Congratulations on getting off the prednisone robert Left above message for Francie at her request on her voicemail. documented in this encounter Plan of Treatment Not on filedocumented as of this encounter Visit Diagnoses Not on filedocumented in this encounter Care Teams Mail Carrier Technician Relationship Specialty Start Date End Date Daniel Hinkle MD PCP - General Family Medicine 09/19/16 [address] [place] [address] documented as of this encounter
--- OUTSIDE RECORDS SUMMARY | 2022-05-27 14:51 | XMS_ITS | Encounter Summary ---
:1960 Author Organization [facility] [place] [address] Care Team Providers Name Role Phone Daniel Hinkle MD Primary Care Provider Reason for Visit Reason Onset Date Comments Other 06/16/2017 Encounter Details Date Type Department Care Team Description 06/16/2017 Telephone Rheumatology at [facility] [place] [address] Social History Tobacco Use Types Packs/Day [...] Telephone Encounter - Kristy Asher RN - 07/13/2017 3:43 PM EST Left another message for Francie to call back at her convenience. Telephone Encounter - Kristy Asher RN - 06/16/2017 12:32 PM EDT Francie calls today to discuss an ER visit last week. Reports she is still not feeling well, Reports diagnosis of Diverticulitis and Hypokalemia. RTC and left message asking Francie to RTC to nurse. I spoke with Francie and she was started on Cipro and Flagyl for diverticulitis and Potassium and Magnesium. Francie reports that she is still not well and antibiotics will be done tomorrow. Francie will have follow with PCP on Monday. I have asked Francie to have ER visit with films and labs faxed to this office so we may review and I will call her back once received. documented in this encounter Plan of Treatment Not on filedocumented as of this encounter Visit Diagnoses Not on filedocumented in this encounter Care Teams Hybrid Corn Breeder Relationship Specialty Start Date End Date Daniel Hinkle MD PCP - General Family Medicine 09/19/16 [place] [address] documented as of this encounter
--- OUTSIDE RECORDS SUMMARY | 2022-05-27 14:51 | XMS_ITS | Encounter Summary ---
:1960 Author Organization [place] [address] Care Team Providers Name Role Phone Daniel Hinkle MD Primary Care Provider Encounter Details Date Type Department Care Team Description 09/06/2018 Telephone Rheumatology at [facility] Juan Waters, [place] [address] Social History Tobacco Use Types Packs/Day [...] Telephone Encounter - Juan Waters RN - 09/06/2018 2:45 PM EST Patient updated, she will hold plaquenil and contact clinic if issues persist. Telephone Encounter - Patricio Lowe MD - 09/06/2018 2:33 PM EST Not really needed, but she can try and see if it works! Telephone Encounter - Juan Waters RN - 09/06/2018 10:28 AM EST Patient calls clinic with question, leaves message. Mentions sinus infection. Questions if should come off Plaquenil. Returned call to patient, unavailable, call back number provided. documented in this encounter Plan of Treatment Not on filedocumented as of this encounter Visit Diagnoses Not on filedocumented in this encounter Care Teams Pilot Boat Deckhand Relationship Specialty Start Date End Date Daniel Hinkle MD PCP - General Family Medicine 09/19/16 [place] [phone] documented as of this encounter
--- OUTSIDE RECORDS SUMMARY | 2022-05-27 14:51 | XMS_ITS | Encounter Summary ---
:1960 Author Organization [facility] Address [address] [facility] [place] [address] Care Team Providers Name Role Phone Daniel Hinkle MD Primary Care Provider Encounter Details Date Type Department Care Team Description 11/27/2017 Office Visit Rhe[place]ology at [facility] Patricio Lowe Lupus erythematosus, unspeci fied form; [facility] MD Sravan Abdominal pain, unspecified abdominal lo cation; [facility] Restless legs syndrome; [place] [address] CENTER Primary osteoarthritis of both hands; [phone] RHEUMATOLOGY [place] [address] Social History Tobacco Use Types Packs/Day Years Used Date Former Smoker Cigarettes 1.5 15 Quit: 08/14/18 93 Smokeless Tobacco: Never Used Alcohol Use Standard Drinks/Week Comments Yes 2 (1 standard drink = 0.6 oz pure alcoho l) [facility] Alcohol Habits Answer Date Recorded How often [...] Sign Reading Time Taken Comments Blood Pressure 142/53 11/27/2017 3:59 PM EDT Pulse 74 11/27/2017 3:59 PM EDT Temperature 36.9 ??C (98.5 ??F) 11/27/2017 3:59 PM EDT Respiratory Rate - - Oxygen Saturation 100% 11/27/2017 3:59 PM EDT Inhaled Oxygen Concentration - - Weight 87.1 kg (192 lb) 11/27/2017 3:59 PM EDT Height 163.8 cm (5' 4.5) 11/27/2017 3:59 PM EDT Body Mass Index 32.45 11/27/2017 3:59 PM EDT documented in this encounter Patient Instructions Patient InstructionsPatricio Lowe MD - 11/27/2017 4:00 PM EDT 1. Stay off Methotrexate due to its effects on your diverticulitis 2. For the diverticulitis, start taking 1/2 teaspoon [place] flavored metamucil in half orange juice,half water. Take in morning after breakfast. If tolerated, increase to 1 tsp daily Then 1 tsp twice daily if tolerated, see if makes bowel movements softer and more regular 3. Follow up about right knee pain and injection with the orthopedist who performed the injection 4. Reassure about hand pain because it is due to wear and tear arthritis, not lupus. 5. Continue to try to lose weight 6. Dr. Hinkle to follow up on DEXA and colonoscopy. 7. Return in 6 months or prn 8. Try taking an extra Mirapex to improve sleep documented in this encounter Progress Notes Patricio Lowe MD - 11/27/2017 4:00 PM EDT Subjective: Patient ID: Francie Yusuf [...] of breath prompting an admission to [facility] in October 2015 where patchy subsegmental opacities [...] abd pain: diverticulitis of mid-descending colon without abscess. Seen again 2 months ago, was not sleeping well due to RLS despite gabapentin, so we switched to Mirapex. Interval History: Ms. Yusuf is seen in 2 month follow up. Held MTX due to recurrent diverticulitis in October 2017. Now just on ASA and Ibuprofen. Not limiting. Pain at night. Taken ibuprofen, tolerating the ibuprofen. Still having irregular bowel movements, still some joint pain. Still. Breathing okay. Sleeping on Mirapex, she is sleeping maybe a little better with 0.125 mg of Mirapex, which controls restless legs but not sleeping. Review of Systems Constitutional: No fevers, chills, [...] and echocardiogram. She was transferred to [facility] s/p IR guided drainage of 70cc of [...] She has lost some weight. Blood pressure 142/53, pulse 74, temperature 36.9 ??C (98.5 ??F), temperature source Oral, height 163.8 cm (5' 4.5), weight 87.1 kg (192 lb), SpO2 100 %. Skin exam: No UE bruising . [...] moving air very well lungs are clear, without wheezes or obvious restriction. Cor: RR no rub. JOHAN 2/6 loudest at [facility] Joint exam UE joint exam: normal except for marichuy OA in pips dips and MCPs. No active synovitis Extremities: Edema in LE is 1+ Assessment and Plan: 1. Lupus pneumonitis seems inactive off steroids. Marked and extensive intolerance of all drugs for lupus with some improvement on MTX but has had multiple and recurrent issues (diverticulitis,sinusitis). 2. RLS, sleep distubance: Better on Mirapex, but clearly not getting enough sleep on the minimal dose 0.125 dose she is taking 3. 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 Right knee pain: OA 5. Recurrent diverticulitis: stop MTX, start Metamucil gradually to benefit Plan 1. Stay off Methotrexate due to its effects on your diverticulitis 2. For the diverticulitis, start taking 1/2 teaspoon [place] flavored metamucil in half orange juice,half water. Take in morning after breakfast. If tolerated, increase to 1 tsp daily Then 1 tsp twice daily if tolerated, see if makes bowel movements softer and more regular 3. Follow up about right knee pain and injection with the orthopedist who performed the injection 4. Reassure about hand pain because it is due to wear and tear arthritis, not lupus. 5. Continue to try to lose weight 6. Dr. Hinkle to follow up on DEXA and colonoscopy. 7. Return in 6 months or prn 8. Try taking an extra Mirapex to improve sleep Level 5 follow up Patricio Lowe M.D. documented in this encounter Plan of Treatment Not on filedocumented as of this encounter Visit Diagnoses Diagnosis Lupus erythematosus, unspecified form Abdominal pain, unspecified abdominal lo cation Restless legs syndrome Restless legs syndrome (RLS) Primary osteoarthritis of both hands Diverticulitis Diverticulitis of colon (without mention of hemorrhage) documented in this encounter Care Teams Painter Barrel Relationship Specialty Start Date End Date Daniel Hinkle MD PCP - General Family Medicine 09/19/16 [address] [place] [address] documented as of this encounter
--- OUTSIDE RECORDS SUMMARY | 2022-05-27 14:51 | XMS_ITS | Encounter Summary ---
:1960 Author Organization [facility] [place] [address] Care Team Providers Name Role Phone Daniel Hinkle MD Primary Care Provider Reason for Visit Reason Onset Date Comments Triage 03/19/2018 Encounter Details Date Type Department Care Team Description 03/19/2018 Telephone Rheumatology at [facility] Kristy Asher, [place] [address] Social History Tobacco Use Types Packs/Day [...] Telephone Encounter - Kristy Asher RN - 03/21/2018 8:12 AM EDT RTC to Francie about disability paperwork, advised that Dr. Lowe does not do disability paperwork and offered a referral to Occupational Medicine or a letter indicating what Francie is treated for by Dr. Lowe. Francie will get back to me after she speaks with her patient case manager on how she should proceed. Telephone Encounter - Kristy Asher RN - 03/20/2018 1:08 PM EDT I spoke with Francie and she states that she was advised by Taya to have SSDI papers sent here for Dr. Lowe to fill out. I advised that we generally refer to Occupational medicine for evaluation forSSDI . I advised Adrianaat I will ask Dr. Lowe his preference. Telephone Encounter - Kristy Asher RN - 03/19/2018 12:38 PM EDT Message from Manga Artist Taya, No time attached to encounter but received message at 10:38. Message is that Francie is asking about disability forms that Taya is taking care of but Francie also has medication question. Left message for Francie to RTC to nurse to discuss further. documented in this encounter Plan of Treatment Not on filedocumented as of this encounter Visit Diagnoses Not on filedocumented in this encounter Care Teams Product Operations Associate Relationship Specialty Start Date End Date Daniel Hinkle MD PCP - General Family Medicine 09/19/[address] [place] [address] documented as of this encounter
--- OUTSIDE RECORDS SUMMARY | 2022-05-27 14:51 | XMS_ITS | Encounter Summary ---
:1960 Author Organization [place] [address] Care Team Providers Name Role Phone Daniel Hinkle MD Primary Care Provider Reason for Visit Consultation (Routine) - Closed Specialty Diagnoses / Procedures Referred By Contact Refer red To Contact Pulmonology Diagnoses Lung involvement in systemic lupus erythematosus NOBLE (dyspnea on exertion) Patricio Lowe MD Enelow, Richard I, MD [facility] RHEUMATOLOGY DEPT. PULMONARY MEDICINE [place], [place] [id number] [place] [phone] Fax: Referral ID Status Reason Start Date Expiration Date Visits V isits Requested Authorized [id number] Closed Consult, 12/29/2015 12/28/2016 1 1 Test & Treat Encounter Details Date Type Department Care Team Description 01/30/2017 Office [place] [facility] [place] Huang I NOBLE (dyspnea on [facility] MD exertion) [place] [address] PULMONARY MEDICI [place], [place] [address] Social History Tobacco Use Types [...] Sign Reading Time Taken Comments Blood Pressure 172/73 01/30/2017 10:08 AM EDT Pulse 67 01/30/2017 10:08 AM EDT Temperature - - Respiratory Rate 20 01/30/2017 10:08 AM EDT Oxygen Saturation 99% 01/30/2017 10:08 AM EDT Inhaled Oxygen Concentration - - Weight 95.3 kg (210 lb) 01/30/2017 10:08 AM EDT Height 165.1 cm (5' 5) 01/30/2017 10:08 AM EDT Body Mass Index 34.95 01/30/2017 10:08 AM EDT documented in this encounter Progress Notes Ke Huang MD - 01/30/2017 10:00 AM EDT Images from the original note were not included. DEPARTMENT PULMONARY AND CRITICAL CARE MEDICINE? Pulmonary and Critical Care Medicine [facility] [place] [address] ?? Outpatient New Consultation Consulted by Dr. Patricio Lowe to evaluate this patient for dyspnea and possible interstitial lung disease. I have personally interviewed and examined the patient on 01/30/2017, and reviewed the patient's radiographic studies and laboratory data. HPI: In brief, Francie Yusuf is a 56 y.o. female with a chief complaint of dyspnea on exertion that goes back as far as 15 years, but got worse in 2014 with an episode of pericardial tamponade (on coumadin, for antiphospholipid antibody, with an INR of 9.2.) C/o sharp chest pain on L, respirophasic which has been going on since 2014, near the site of the pericardial drain. History of hemorrhagic L pleural effusion at the same time, drained, w/o reaccumulation. Off coumadin since 2014 (never had a clot). Last spring had chest pain of different character with SOB, had CT PE study which was negative, though slight patchy lower lobe GGO was observed. NOBLE has not changed since 2015. Weight is highest in her life, partly due to prednisone, which she very recently got off. She thinks she snores, but with her multiple sources of pain sleeps very poorly. ECHO last year showed no PAH, or other cardiac abnormality. Stress test this year negative. Former smoker (quit 1992, after 30-40 py). Hx of asthma, gregorio gnosed many years ago, and she continues on bronchodilators without sensing that they help her. No wheezing/cough. She denies dysphagia, Raynaud's. No constitutional symptoms. PAST MEDICAL HISTORY: Patient Active Problem List Diagnosis Code ??? 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 Asthma J45.909 ??? Sinusitis, chronic J32.9 ??? Antiphospholipid antibody syndrome D68.61 ??? Edema of both legs R60.0 ??? Miscarriage O03.9 ??? Thyroid nodule E04.1 ??? 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 S/P complete thyroidectomy E89.0 ??? Cardiac tamponade I31.4 ??? Acute bloody pericarditis I30.9 ??? Pleural effusion J90 ??? Chronic rhinitis J31.0 ??? Chest pain R07.9 ??? Hypoxia R09.02 ??? Amblyopia, left eye H53.002 ??? Keratoconjunctivitis sicca due to decreased tear production H16.229 Past Surgical History: Procedure Laterality Date ??? BONE MARROW BIOPSY ??? HYSTERECTOMY ??? PRG SOMATOSENSORY TEST, ANY/ALL PER. NERVES, TRUNK OR HEAD 06/01/2012 FACIAL NERVE MONITORING, SETUP performed by LINDA RANGEL at [facility] MAIN OR ??? PRO BONE MARROW ASPIRATION W/BX THROUGH SAME INCISION/SITE Right 06/09/2015 ([facility]) BONE MARROW ASP PERFORMED W/BX THRU BX INCISION performed by Farzaneh Valera MD at [facility] O[facility] ??? PRO BONE MARROW BX, NEEDLE/TROCAR Right 06/09/2015 ([facility]) BONE MARROW,BIOPSY performed by Farzaneh Valera MD at [facility] ??? PRO THYROIDECTOMY 06/01/2012 THYROIDECTOMY, TOTAL OR COMPLETE performed by LINDA RANGEL at [facility] MAIN OR MEDICATIONS: Current Outpatient Prescriptions on File Prior to Visit Medication Sig Dispense Refill ??? methotrexate 2.5 mg Tablet Take 4 tablets by mouth once a week. 36 tablet 3 ??? hydroCHLOROthiazide (HYDRODIURIL) 25 mg Tablet Take 2 tablets by mouth daily. 60 tablet 11 ??? ibuprofen (ADVIL;MOTRIN) 800 mg Tablet Take 1 tablet by mouth every 8 hours as needed for Pain. 30 tablet 12 ??? hydroxychloroquine (PLAQUENIL) 200 mg Tablet Take 1 tablet by mouth daily. 60 tablet 6 ??? levothyroxine (SYNTHROID) 125 mcg Tablet Take [...] tablet Take 20 mg by mouth nightly. ??? acetaminophen (TYLENOL EXTRA STRENGTH) 500 mg tablet Take by mouth as needed. Reported on 09/19/2016 No current facility-administered medications on file prior to visit. ALLERGIES: Azathioprine and Mycophenolate mofetil FAMILY HISTORY: Family History Problem Relation Age of Onset ??? Hypertension Mother ??? Chronic Obstructive Pulmonary Disease Mother ??? Hypertension Brother ??? Rheumatoid Arthritis Father ??? Rheumatoid Arthritis Brother SOCIAL HISTORY: Social History Social History ??? Marital status: Spouse name: N/A ??? Number of children: N/A ??? Years of education: N/A Occupational History ??? unemployed Social History Main Topics ??? Smoking status: Former Smoker Packs/day: 1.50 Years: 15.00 Types: Cigarettes Quit date: 08/14/1992 ??? Smokeless tobacco: Never Used ??? Alcohol use 1.2 oz/week 1 Glasses of wine, 1 Cans of beer per week Comment: per week ??? Drug use: No ??? Sexual activity: No Other Topics Concern ??? Not on file Social History Narrative Francie lives with a friend. She has a son and daughter. She has two cats and a dog. There is some mold in the house. 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 Review of Systems: GENERAL HEENT CV PULM All negative All negative All negative All negative Weight loss Headache Angina Non-productive cough x Weight gain Vision change Palpitations Productive cough Fevers Sinus congestion Presyncope Wheezing Chills Rhinorrhea Syncope Hemoptysis Diaphoresis Epistaxis x LE edema x Pleuritic pain Poor sleep Post-nasal drip Claudication x Orthopnea x Fatigue Throat clearing x Paroxysmal dyspnea Anorexia x Dry eyes/mouth Trepopnea Hoarseness MSK RENAL ENDO GI/NUTRITION All negative x All negative x All negative All negative x Arthralgias Polyuria Heat intolerance x GERD x Myalgias Oliguria Cold intolerance Dysphagia x Deformity Hematuria Polydipsia Odynophagia x Stiffness Flank pain Polyphagia Abdominal discomfort Wasting Dysuria Cushingoid Constipation Diarrhea Steatorrhea LYMPH SKIN NEURO PSYCH x All negative All negative x All negative All negative Swollen nodes x Rash/Lesions Seizures x Depressed affect Tender nodes Ulcers Tremors Occupational stress Diffuse nodes Purpura Spasticity Troubled relationship(s) Local nodes Pigmented lesion Focal weakness x Insomnia Telangiectasias Diplopia Anxiety Angiomata Paresthesias Absenteeism Tanned skin PHYSICAL EXAM Last value Range last 24 hrs Temperature Temp: -- Heart Rate Heart Rate: 67 Heart Rate: [67] Blood Pressure BP: 172/73 BP: (172)/(73) Respiratory Rate Resp: 20 Resp: [20] SpO2 SpO2: 99 % SpO2: [99 %] WDWN 56 y.o. female in NAD. HEENT-NC/AT; unremarkable Neck-supple without masses or, nodes Chest- clear bilaterally. Good diaphragmatic excursion. Heart-Normal rate and rhythm, without murmers, gallops, or rubs. Abdomen-benign without organomegaly or tenderness Extremities-no cyanosis, clubbing; 2+ LE edema Skin-several discolored (slightly purple) lesions over both LE. Musculoskeletal-no joint swelling, tenderness, redness; slight DIP joint deformities Neurologic-Nonfocal, without weakness or sensory deficits Lymphatics-unremarkable I have personally reviewed the recent PFTs, and my interpretation is as follows: FVC- 77% pred FEV1- 78% pred FEV1/FVC- 80% DLCO- 83% pred. No desaturation with walking 600' on RA C/W minimal restriction, likely extraparenchymal, unchanged from a year ago. IMPRESSION: In summary, this is a 56-year-old woman with RA/SLE overlap of some kind and dyspnea that is longstanding and without basis that is apparent in cardiac or pulmonary disease. Her PFTs show a very mild restrictive defect without a diffusion abnormality and without desaturation with exertion, and they are stable since the last set of studies a year ago. Her chest exam is clear and there appears to be no evidence of physical exam to support diaphragmatic weakness as an etiology. She was apparently going to have lung volumes, which would likely reveal that her TLC is slightly low and that her residual volume is also slightly low, but if it were elevated, then it could be muscle weakness or small airway disease, and neither appeared to be impacting her physiologically to the extent that she complains of. Having been on steroids for the last 2 years, having gained 30 or so pounds over the last 2 years and having been relatively inactive with her various musculoskeletal complaints (right knee meniscus, left-sided sciatica), it is undoubtedly the case that her dyspnea is deconditioning and weight gain. This could be proven with a formal cardiopulmonary exercise test, but I do not see any reason to do that. I discussed with her the fact that on her CT scan from a year ago, there appeared to be some very minimal suggestions of interstitial lung disease, which could very well be inflammatory in nature, but to the extent that they had not impacted her oxygenation to any degree, it would seem unlikely that they have anything to do with her dyspnea at present. Nevertheless, it would not be unreasonable to keep an eye on her pulmonary parenchyma with simple noncontrast HRCT though there is no urgency about this. The pains that she complains of are likely musculoskeletal, and there appears to be no reason to be concerned about pleuritis based on her disease activity at present, so in summary, I would probably get a routine HRCT for monitoring as well as a set of lung volumes (to establish a baseline), and if her residual volume is larger than it appears to be, it might be reasonable to get diaphragmatic fluoroscopy, although this is largely academic since it would be difficult to justify intervening if an abnormality were found, given the degree of dyspnea which can be ascribed to other explanations. I would be happy to see her back in followup at any time. Greater than 60 min of this 80 minute visit was spent in face to face discussion with the patient regarding the nature and complexity of the problems described above, and the details of our diagnostic and therapeutic plans. documented in this encounter Plan of Treatment Scheduled Referrals Name Type Priority Associated Diagnoses Order S chedule Referral to Outpatient Referral Routine Lung involvement in O rdered: Pulmonology systemic lupus 12/29/2015 erythematosus NOBLE (dyspnea on exertion) documented as of this encounter Visit Diagnoses Diagnosis NOBLE (dyspnea on exertion) Other dyspnea and respiratory abnormalit y documented in this encounter Care Teams Legislative Analyst Relationship Specialty Start Date End Date Daniel Hinkle MD PCP - General Family Medicine 09/19/16 [address] [place] [address] documented as of this encounter
--- OUTSIDE RECORDS SUMMARY | 2022-05-27 14:51 | XMS_ITS | Encounter Summary ---
:1960 Author Organization [facility] [place] [address] Care Team Providers Name Role Phone Daniel Hinkle MD Primary Care Provider Reason for Visit Reason Comments Follow-up R knee inj Encounter Details Date Type Department Care Team Description 02/15/2018 Office Visit Orthopaedics at [facility], Primary osteoarthritis [facility] Farzaneh Mensah APRN [place] [address] ORTHOPAEDIC [phone] SURGERY [place], [place] [address] Social History Tobacco Use Types Packs/Day Years Used Date Former Smoker Cigarettes 1.5 15 Quit: 08/14/18 93 Smokeless Tobacco: Never Used Alcohol Use Standard Drinks/Week Comments Yes 2 (1 standard drink = 0.6 oz pure alcoho l) [facility] Alcohol Habits Answer Date Recorded How [...] Sign Reading Time Taken Comments Blood Pressure 132/66 02/15/2018 8:48 AM EDT Pulse 65 02/15/2018 8:48 AM EDT Temperature - - Respiratory Rate - - Oxygen Saturation - - Inhaled Oxygen Concentration - - Weight 87.5 kg (193 lb) 02/15/2018 8:48 AM EDT measured Height 163.8 cm (5' 4.49) 02/15/2018 8:48 AM EDT Body Mass Index 32.63 02/15/2018 8:48 AM EDT documented in this encounter Progress Notes Farzaneh Cason APRN - 02/15/2018 9:00 AM EDT S: Francie Yusuf is a 57 y.o. female who presents to clinic with right knee pain secondary to known DJD. She is here for cortisone injection. Her last injection was in August 2017. Reports she continues to experience very good relief from the injections until the last several weeks. Should like to continue with conservative management. Reports she is otherwise well today without fevers, chills, night sweats or any signs of infection. O: Blood pressure 132/66, pulse 65, height 163.8 cm (5' 4.49), weight 87.5 kg (193 lb). Alert and oriented. No apparent distress. Gait nonantalgic to assist. Examination of right knee reveals intact skin without erythema or ecchymosis. There is a trace effusion. Range of motion 0 to approximately 130?? flexion. A/P: Pleasant 57-year-old female with right knee pain secondary to DJD. Discussed to be appropriate to proceed with cortisone injection at today's visit and every 3-4 months for his long as it is effective. She agrees with this plan. See procedure note below. Follow-up when necessary. Procedure I discussed the risks and benefits of injecting the joint with Cortisone such as, transient elevation in blood glucose levels, bleeding, infection, and failure to alleviate symptoms. The patient verbalized understanding and chose to proceed with the procedure. The skin about the lateral right knee wassterilely prepped with DuraPrep and injected with 40mg/4mL 1% Lidocaine without epinephrine from a suprapatellar approach with #27 gauge needle followed by 40mg/1mL Kenalog mixed with an additional 20 mg/2mL plain Lidocaine from a superolateral approach with a #22 gauge needle. A bandaid and DSG was then applied to the injection site. The patient tolerated the procedure well and is without complication. She was advised to keep the sterile dressing on for 24 hours and refrain from any vigorous activities today. She was also advised to report and signs or symptoms of infection in the joint such as redness, swelling, drainage, or fever immediately. documented in this encounter Plan of Treatment Not on filedocumented as of this encounter Visit Diagnoses Diagnosis Primary osteoarthritis of right knee Primary localized osteoarthrosis, lower leg documented in this encounter Administered Medications Inactive Administered Medications - up to 3 most recent administrations Medication Order MAR Action Action Date Dose Rate Site triamcinolone acetonide Given 02/15/2018 9:22 AM EDT 40 mg (KENALOG-40) injection 40 mg 40 mg, Intra-articular, ONCE, 1 dose, On Rena 02/15/18 at 0945, Routine documented in this encounter Care Teams Information And Referral Director Relationship Specialty Start Date End Date Daniel Hinkle MD PCP - General Family Medicine 09/19/16 [address] [place] [address] documented as of this encounter
--- OUTSIDE RECORDS SUMMARY | 2022-05-27 14:51 | XMS_ITS | Encounter Summary ---
:1960 Author Organization [facility] [place] [address] Care Team Providers Name Role Phone Daniel Hinkle MD Primary Care Provider Encounter Details Date Type Department Care Team Description 09/03/2018 Office Visit [place] [facility] [place]ricio Lowe Primary osteoarthritis of [facility]; [facility] MD Sravan Chronic [place] [address] CENTER [phone] [place] [address] Social History Tobacco Use Types Packs/Day Years Used Date Former Smoker Cigarettes 1.5 15 Quit: 08/14/18 93 Smokeless Tobacco: Never Used Alcohol Use Standard Drinks/Week Comments Yes 2 (1 standard drink = 0.6 oz pure alcoho l) [facility] Alcohol Habits Answer Date Recorded [...] Sign Reading Time Taken Comments Blood Pressure 138/52 09/03/2018 11:29 AM EST Pulse 69 09/03/2018 11:29 AM EST Temperature 36.4 ??C (97.5 ??F) 09/03/2018 11:29 AM EST Respiratory Rate - - Oxygen Saturation 99% 09/03/2018 11:29 AM EST Inhaled Oxygen Concentration - - Weight 93 kg (205 lb) 09/03/2018 11:29 AM EST Height 163.8 cm (5' 4.5) 09/03/2018 11:29 AM EST Body Mass Index 34.64 09/03/2018 11:29 AM EST documented in this encounter Progress Notes Particio Lowe MD - 09/03/2018 11:30 AM EST Subjective: Patient ID: Francie Yusuf is a 58 y.o. female last seen in 2012 with [...] shortness of breath prompting an [place] [facility] [place] where patchy subsegmental opacities [...] pain: diverticulitis of mid-descending colon without abscess. RLS despite gabapentin, so we switched to Mirapex. Interval History: Ms. Yusuf is seen in 10 month follow up in the context of lupus arthropathy, pneumonitiis, diverticulitis just takin ASA and Ibuprofen. When last seen: 1. Lupus pneumonitis inactive off steroids. Good, since marked and extensive intolerance of all drugs for lupus with some improvement on MTX but has had multiple and recurrent issues ( now held diverticulitis,sinusitis). 2. RLS, sleep distubance: Better on Mirapex 3. 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 Right knee pain: OA 5. Recurrent diverticulitis: stop MTX, was 'having issues' with Metamucil so stopped it 6. NOBLE seemed more deconditioning and weight gain 7. 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 Dr. Hinkle was to follow up on colonoscopy, but is scheduled in 2.19 Issues today are: 1. Sinus sx for 10-12 days with congestion and post nasal drip, feeling run down, occasional fevers 2. Hand pain the Last 5-6 days, in pips and dips Review of Systems Constitutional: No fevers, chills, [...] CXR and echocardiogram. She was transferred [place] [facility] [place]/p IR guided drainage of 70cc of [...] She has lost some weight. Blood pressure 138/52, pulse 69, temperature 36.4 ??C (97.5 ??F), temperature source Oral, height 163.8 cm (5' 4.5), weight 93 kg (205 lb), SpO2 99 %. Skin exam: No UE bruising . No telangectasias. Brownish elevated plaques on LE, largest is 3 cm across, most are <0.5 cm. These are darkening according to the patient. Normal nailfold exam. No digital ulcers, cuticular overgrowth. There is 1+lower extremity swelling. HEENT: moist mucus membranes, decreased salivary pooling. No sinus or submandibular tenderness, no parotid enlargement. Tender over ethmoids Neck supple JVD<5 cm. no bruits. Chest: I think she is moving air very well lungs are clear, without wheezes or obvious restriction. Cor: RR no rub. JOHAN 2/6 loudest at [facility] Joint exam UE joint exam: normal except for marichuy OA in pips dips and MCPs. Tender in PIPs No activesynovitis Extremities: Edema in LE is 1+ Assessment and Plan: 1. Lupus pneumonitis seems inactive off steroids withmultiple and recurrent issues (diverticulitis,sinusitis). 2. Joint pain in hands is all marichuy OA 3. Sinus sx with unimpressive exam and comorbidities without benefit from ENT evaluations in [facility] nor Augmentin or Zpack in the past 4. Cutaneous amyloid with labs Plan 1. F/U prn. Lupus inactive for several years 2 She is currently seeing several consultants as well as PCP who can reach out to me as needed. 3. Sinusitis per ENT Level 4 follow up Patricio Lowe M.D. documented in this encounter Plan of Treatment Not on filedocumented as of this encounter Visit Diagnoses Diagnosis Primary osteoarthritis of left hand Primary localized osteoarthrosis, hand Chronic ethmoidal sinusitis documented in this encounter Care Teams Assembler Engine Relationship Specialty Start Date End Date Daniel Hinkle MD PCP - General Family Medicine 09/19/[address] [place] [address] documented as of this encounter
--- OUTSIDE RECORDS SUMMARY | 2022-05-27 14:51 | XMS_ITS | Encounter Summary ---
:1960 Author Organization [facility] [place] [address] Care Team Providers Name Role Phone Daniel Hinkle MD Primary Care Provider Reason for Visit Reason Onset Date Comments Abdominal Pain 12/05/2017 Encounter Details Date Type Department Care Team Description 12/05/2017 Telephone Rheumatology at [facility] [place]y [place] [address] Social History Tobacco Use Types Packs/Day [...] Telephone Encounter - Kristy Asher RN - 12/05/2017 9:13 AM EDT RTC to Francie and advised that she can go to PCP today or ER here if she is not able to be seen urgently. Francie states her PCP office told her they are not able to see her for a few days. Francie will go to the ER for evaluation. Telephone Encounter - Kristy Asher RN - 12/05/2017 8:41 AM EDT Francie calls to report that she was in the ER on Monday and was diagnosed with Diverticulitis again.She reports that she was started on Augmentin and told she would feel better in a couple of days. Francie reports that her abdominal pain is worse. Reports she does not want to go back to the ER in [facility]. RTC Francie and she reports this is the third time with Diverticulitis since before October. Francie reports that her pain is mostly in her lower abdomen, but occasionally in upper quadrants as well. Francie denies any fevers, nausea, or vomiting. Reports that her abdomen is firm and distended. Reports Ribbon like stools to diarrhea, denies any blood in her stool. Reports she is eating well, but does experience increased discomfort after eating. I advised Francie that I am concerned and think she needs further evaluation. Francie would like me to discuss with Dr. Lowe. Francie will come to the ER at [facility] if Dr. Lowe thinks it is necessary. documented in this encounter Plan of Treatment Not on filedocumented as of this encounter Visit Diagnoses Not on filedocumented in this encounter Care Teams Laboratory Apparatus Glass Blower Relationship Specialty Start Date End Date Daniel Hinkle MD PCP - General Family Medicine 09/19/16 [place] [address] documented as of this encounter
--- OUTSIDE RECORDS SUMMARY | 2022-05-27 14:51 | XMS_ITS | Encounter Summary ---
:1960 Author Organization [facility] [place] [address] Care Team Providers Name Role Phone Daniel Hinkle MD Primary Care Provider Encounter Details Date Type Department Care Team Description 12/13/2017 Telephone Rheumatology at [facility] Susan Gil MD [facility] [place] [phone] Rheumatology Dept [phone] [place], [place] [address] (Wo rk) Social History Tobacco Use Types Packs/Day Years Used Date Former Smoker Cigarettes 1.5 15 Quit: 08/14/18 93 Smokeless Tobacco: Never Used Alcohol Use Standard Drinks/Week Comments Yes 2 (1 standard drink = 0.6 oz pure alcoho l) [facility] Alcohol Habits Answer Date Recorded How often [...] Encounter - Juan Waters RN - 12/13/2017 11:59 AM EDT Erroneous entry. documented in this encounter Plan of Treatment Not on filedocumented as of this encounter Visit Diagnoses Not on filedocumented in this encounter Care Teams Core Stacker Relationship Specialty Start Date End Date Daniel Hinkle MD PCP - General Family Medicine 09/19/16 [place] [address] documented as of this encounter
--- OUTSIDE RECORDS SUMMARY | 2022-05-27 14:51 | XMS_ITS | Encounter Summary ---
:1960 Author Organization [facility] [place] [address] Care Team Providers Name Role Phone Daniel Hinkle MD Primary Care Provider Encounter Details Date Type Department Care Team Description 02/16/2017 Orders Only Orthopaedics at [facility] Eber Romano, Right knee pain, [facility] [address] [facility] [place] [address] ORTHOPAEDIC SURGERY [place], [place] [address] Social History Tobacco Use Types [...] as of this encounter Visit Diagnoses Diagnosis Right knee pain, unspecified chronicity documented in this encounter Care Teams Aircraft Hydraulic Equipment Mechanic Relationship Specialty Start Date End Date Daniel Hinkle MD PCP - General Family Medicine 09/19/16 [address] [place] [address] documented as of this encounter
--- OUTSIDE RECORDS SUMMARY | 2022-05-27 14:51 | XMS_ITS | Encounter Summary ---
:1960 Author Organization [facility] [place] [address] Care Team Providers Name Role Phone Daniel Hinkle MD Primary Care Provider Encounter Details Date Type Department Care Team Description 05/07/2018 Office Visit Hematology and Monika Valera MD [facility] DR HEMATOLOGY/[place] [address] PATIENT NOT SEEN Oncology at [facility] Charlene Knight, MEDICAL DOCTOR MD [facility] HEMATOLOGY/[place] [address] [place] [phone] Social History Tobacco Use Types Packs/Day Years Used Date Former Smoker Cigarettes 1.5 15 Quit: 08/14/18 93 Smokeless Tobacco: Never Used Alcohol Use Standard Drinks/Week Comments Yes 2 (1 standard drink = 0.6 oz pure alcoho l) [facility] Alcohol Habits Answer Date Recorded [...] documented as of this encounter Progress Notes Charlene Knight APRN - 05/07/2018 3:26 PM EDT This patient was not seen in this encounter. Farzaneh Valera MD - 05/07/2018 3:00 PM EDT Images from the original note were not included. [place] [address] FOLLOW-UP PATIENT EVALUATION PROBLEM LIST: 1. Hypertension. [...] W/U to date w/ neg ECHO at [facility]. CT w/ one para-aortic 2cm LN which we will follow. Neg SPEP and 24 hour urine at [facility]. Neg fat pad biopsy. [...] W/U to date w/ neg ECHO at [facility]. CT w/ one para-aortic 2cm LN which we will follow. Neg SPEP and 24 hour urine at [facility]. Neg fat pad biopsy. [...] In addition, there is superficial anddeep perivascular [place]+, Lambda- plasma cell infiltrate. Please correlate with [...] for Pain. (Patient not taking: Reported on 02/15/2018) 30 tablet 12 ??? levothyroxine (SYNTHROID) 125 [...] R LE 2016 LLE 2016 2017 2017 LABORATORY STUDIES No results found for this [...] Dr. Whitney of Dermatology. Copy Maria Fournier APRN documented in this encounter Plan of Treatment Not on filedocumented as of this encounter Visit Diagnoses Diagnosis DH PATIENT NOT SEEN documented in this encounter Care Teams Steel Spar Operator Relationship Specialty Start Date End Date Daniel Hinkle MD PCP - General Family Medicine 09/19/16 [place] [address] documented as of this encounter
--- OUTSIDE RECORDS SUMMARY | 2022-05-27 14:51 | XMS_ITS | Encounter Summary ---
:1960 Author Organization [facility] [place] [address] Care Team Providers Name Role Phone Daniel Hinkle MD Primary Care Provider Reason for Visit Reason Comments Follow-up Encounter Details Date Type Department Care Team Description 09/09/2019 Office Visit Hematology and Monika Valera MD [facility] DR HEMATOLOGY/[place] [address] Amyloidosis of skin Oncology at [facility] Farzaneh Rouse APRN [facility] HEMATOLOGY/[place] [address] [place] [phone] Social History Tobacco Use Types Packs/Day Years [...] Sign Reading Time Taken Comments Blood Pressure 140/63 09/09/2019 9:29 AM EST Pulse 65 09/09/2019 9:29 AM EST Temperature 36.6 ??C (97.9 ??F) 09/09/2019 9:29 AM EST Respiratory Rate 18 09/09/2019 9:29 AM EST Oxygen Saturation 96% 09/09/2019 9:29 AM EST Inhaled Oxygen Concentration - - Weight 87.8 kg (193 lb 9.6 oz) 09/09/2019 9:29 AM with shoes EST Height 165.3 cm (5' 5.08) 09/09/2019 9:29 AM with shoe s EST Body Mass Index 32.14 09/09/2019 9:29 AM EST documented in this encounter Progress Notes Farzaneh Valera MD - 09/09/2019 10:00 AM EST Images from the original note were not included[place] [address] FOLLOW-UP PATIENT EVALUATION PROBLEM LIST: 1. Hypertension. [...] W/U to date w/ neg ECHO at [facility]. CT w/ one para-aortic 2cm LN which we will follow. Neg SPEP and 24 hour urine at [facility]. Neg fat pad biopsy. BMBx not yet [...] W/U to date w/ neg ECHO at [facility]. CT w/ one para-aortic 2cm LN which we will follow. Neg SPEP and 24 hour urine at [facility]. Neg fat pad biopsy. BMBx not yet [...] In addition, there is superficial anddeep perivascular [place]+, Lambda- plasma cell infiltrate. Please correlate with [...] obviously still present. She had a recent right knee replacement on 07/16/2019. Back pain and sciatica are much improved with PT andhome exercise. Otherwise, patient doing well. ROS Energy level:stable Pain: No Appetite:good Fevers/chills/sweats:No Bruising/bleeding/melena: See above Recent infections:No HEENT: negative Nausea/vomiting/diarrhea/constipation:No SOB/NOBLE/chest pain:No Change in adenopathy or other masses:No Unexpected weight loss or gain:No Skin see photos Musculoskeletal complaints:No Extremities: Negative upper and lower bilaterally Neurologic symptoms:No MEDS: Current Outpatient Medications on File Prior to Visit Medication Sig Dispense Refill ??? acetaminophen (Tylenol) 500 mg Tablet Take 1,000 mg by mouth every 6 hours as needed for Pain. ??? loratadine (CLARITIN) 10 mg Tablet Take 10 mg by mouth daily. ??? pramipexole (MIRAPEX) 0.125 mg Tablet 1 t at bedtime for 2-4 days, if not sleeping well enough, may increase to 2 T thereafter, call if not better 180 tablet 3 ??? losartan-hydrochlorothiazide (HYZAAR) 50-12.5 mg Tablet take 1 tablet by mouth once daily for blood pressure -THIS REPLACES LISINOPRIL/HCTZ 0 ??? cholecalciferol, Vitamin D3, 1,000 unit Tablet Take by mouth daily. ??? CALCIUM 500 WITH D 500 mg(1,250mg) [...] Take 125 mcg by mouth nightly. ??? aspirin 81 mg Tablet, Delayed Release (E.C.) Take 1 tablet by mouth daily. ??? albuterol (PROVENTIL HFA;VENTOLIN HFA;PROAIR) 90 mcg/actuation HFA Aerosol Inhaler Inhale 2 puffs into the lungs every 4 hours as needed for Wheezing. Use with spacer ??? simvastatin (ZOCOR) 20 mg tablet Take 20 mg by mouth nightly. ??? amoxicillin-clavulanate (AUGMENTIN) 875-125 mg Tablet 0 ??? fluticasone (FLOVENT) 220 mcg/actuation HFA Aerosol Inhaler Inhale 2 puffs into the lungs 2 times daily. ??? cetirizine (ZYRTEC) 10 mg Tablet Take 10 mg by mouth daily. No current facility-administered medications on file prior to visit. 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 GENERAL: Ms. Yusuf appears well and is [...] and RLE - all improved from baseline. 2020 Lesions are all the same or better - no new photos taken. LABORATORY STUDIES Recent Results (from the past 24 hour(s)) Lactate Dehydrogenase Result Value Ref Range LDH 210 110 - 220 unit/L Comprehensive metabolic panel (non-fasting) Result Value Ref Range Glucose Lvl 94 65 - 199 mg/dL BUN 15 8 - 18 mg/dL Creatinine 0.71 0.70 - 1.20 mg/dL Sodium 137 135 - 145 mmol/L Potassium 3.7 3.5 - 5.0 mmol/L Chloride 104 98 - 107 mmol/L CO2 27 22 - 31 mmol/L Anion Gap 6 5 - 15 mmol/L Calcium 8.2 (L) 8.5 - 10.5 mg/dL Total Protein 6.3 6.1 - 8.0 gm/dL Albumin 4.1 3.2 - 5.2 gm/dL AST 17 0 - 30 unit/L ALT 14 0 - 30 unit/L Alk Phos 94 35 - 105 unit/L Total Bilirubin 0.3 0.2 - 1.3 mg/dL eGFR 95 >=60 mL/min/1.73 m?? eGFR 110 >=60 mL/min/1.73 m?? Hemogram Result Value Ref Range WBC 6.3 4.0 - 9.5 x10(3)/mcL RBC 4.98 4.00 - 5.21 x10(6)/mcL Hemoglobin 13.6 11.7 - 15.5 gm/dL Hematocrit 41.3 35.7 - 45.8 % MCV 82.9 82.6 - 94.4 fL MCH 27.3 27.1 - 32.0 pg MCHC 32.9 31.7 - 35.0 gm/dL Platelets 287 145 - 357 x10(3)/mcL RDWSD 37.3 37.0 - 46.0 fL RDWCV 12.3 11.5 - 14.1 % MPV 9.2 7.6 - 12.9 fL nRBC % Auto 0.0 % nRBC Abs Auto 0.000 0.000 - 0.000 x10(3)/mcL Differential, Automated Result Value Ref Range Neutrophils % 73.3 % Neutr Abs (ANC) 4.60 1.70 - 6.10 x10(3)/mcL Lymphocytes % 11.0 % Lymphocytes Abs 0.7 (L) 0.9 - 3.2 x10(3)/mcL Monocytes % 10.4 % Monocyte Abs 0.6 0.3 - 0.9 x10(3)/mcL Eosinophils % 4.0 % Eosinophils Abs 0.2 0.0 - 0.4 x10(3)/mcL Basophils % 0.8 % Basophils Abs 0.0 0.0 - 0.1 x10(3)/mcL Immature Gran % 0.50 % Cheryl Gran Abs 0.03 0.00 - 0.04 x10(3)/mcL RADIOLOGY STUDIES REVIEWED: [...] to see her back in one year - we will see her in November/December 2020 in order to get her annual visits not during inclement weather. Plan cbc, cmp, sflc,spep and Quant ig At the time of the appointment. I would not plan another CAT scan , unless clinically indicated. SLE since dx - hemorrhagic pleural effusion. Has to schedule an appt with Dr Lowe. I discussed all of the above with the patient and all of her questions were answered. Support and counseling given as appropriate. Francie Yusuf knows that she can call us any time with questions or concerns. This note was written or modified using [employer] voice recognition software. The final note was screened for mistakes. Please excuse any remaining errors. Copy Maria Fournier APRN documented in this encounter Plan of Treatment Not on filedocumented as of this encounter Visit Diagnoses Diagnosis Amyloidosis of skin Amyloidosis, unspecified documented in this encounter Care Teams Drafter Marine Relationship Specialty Start Date End Date Daniel Hinkle MD PCP - General Family Medicine 09/19/16 [place] [address] documented as of this encounter
--- OUTSIDE RECORDS SUMMARY | 2022-05-27 14:51 | XMS_ITS | Encounter Summary ---
:1960 Author Organization [facility] [place] [address] Care Team Providers Name Role Phone Daniel Hinkle MD Primary Care Provider Reason for Visit Reason Onset Date Comments Medication Refill 02/24/2017 Encounter Details Date Type Department Care Team Description 02/24/2017 Refill Rheumatology at [facility] [place] [address] Social History Tobacco Use Types Packs/Day [...] filedocumented in this encounter Care Teams News Producer Relationship Specialty Start Date End Date Daniel Hinkle MD PCP - General Family Medicine 09/19/16 [place] [phone] documented as of this encounter
--- OUTSIDE RECORDS SUMMARY | 2022-05-27 14:51 | XMS_ITS | Encounter Summary ---
:1960 Author Organization [facility] Address [address] [place] [place] [address] Care Team Providers Name Role Phone Daniel Hinkle MD Primary Care Provider Reason for Visit Reason Comments Follow-up R knee OA, R knee cortisone injection Encounter Details Date Type Department Care Team Description 04/24/2019 Office Visit Orthopaedics at [facility], Primary osteoarthritis [facility] Team of [place] [address] Social History Tobacco Use Types Packs/Day Years Used Date Former Smoker Cigarettes 1.5 15 Quit: 08/14/18 93 Smokeless Tobacco: Never Used Alcohol Use Standard Drinks/Week Comments Yes 2 (1 standard drink = 0.6 oz pure alcoho l) [facility] Alcohol Habits Answer Date Recorded How often [...] Sign Reading Time Taken Comments Blood Pressure 136/75 04/24/2019 12:45 PM EDT Pulse 77 04/24/2019 12:45 PM EDT Temperature - - Respiratory Rate - - Oxygen Saturation - - Inhaled Oxygen Concentration - - Weight 89.7 kg (197 lb 12.8 oz) 04/24/2019 12:45 PM leonarda sured EDT Height 163.8 cm (5' 4.49) 04/24/2019 12:45 PM reported EDT Body Mass Index 33.44 04/24/2019 12:45 PM EDT documented in this encounter Progress Notes Heriberto Lees MD - 04/24/2019 12:50 PM EDT Arthroplasty/Orthopaedic History: 1. None HPI: Francie Yusuf is a very pleasant 59 y.o. year-old female with a several year history of right knee osteoarthritis seen several times previously in orthopedics clinic at . The patient is continued to experience progressive right knee pain, that has progressed since the last time she was seen in 2018. She reports a history of several corticosteroid injections to her right knee, the last of whichwas 3 to 4 months ago performed by her primary care provider. She reports at least 3 previous injections, and has experienced diminishing returns with each 1 of these injections, with the last injection providing only several weeks of pain control. She comes in today interested in another corticosteroid injection, she more seriously considers right knee arthroplasty. She experiences significant pain going up and down the stairs, with prolonged standing, and with range of motion of her knee. She reports taking Tylenol for pain, has not been on an NSAID regimen. 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 She notes that her pain is diffusely over the anterior part of her knee, but is palpably tender over the lateral aspect of her joint line. ROS: Denies: fever, chills, night sweats, nausea, or vomiting BP 136/75 Pulse 77 Ht 163.8 cm (5' 4.49) Comment: reported Wt 89.7 kg (197 lb 12.8 oz) Comment: measured BMI 33.44 kg/m?? Physical Exam: Well-appearing female in no acute distress. Alert and Oriented x 3 and answers all questions appropriately. Right Knee Exam: Knee ROM: Extension:5 Flexion: 100 Alignment: 0-4 degrees Varus Stability: A/P Translation <5mm. Varus <5mm Valgus <5mm Extension La degrees or less Patella Tracking: Normal Motor/Sensory: Distal Motor: Normal Distal Sensory: Normal Quadriceps Strength: 5 Amyloid plaques over her distal leg. X-RAYS: Multiple radiographic views were obtained at my request and reviewed with the patient. X-rays show severe osteoarthritis most noticeable in the left lateral knee compartment. She has evidence of joint space narrowing, subchondral sclerosis, and osteophyte formation. Questionnaire Responses: [facility] 04/24/2019 PROMIS-10 General Health Fair PROMIS-10 Quality of Life Good PROMIS-10 Physical Health Fair PROMIS-10 Mental Health Fair PROMIS-10 Social Activity Fair PROMIS-10 Everyday Activities Moderately PROMIS-10 Pain 5 PROMIS-10 Fatigue Moderate PROMIS-10 Social Roles Fair PROMIS-10 Anxious or Depressed Sometimes PROMIS PHYSICAL HEALTH SCORE 37.4 PROMIS MENTAL HEALTH SCORE 38.8 KOOS JR Scores 52.47 TKA Grade 2 Satisfaction with Treatment Somewhat satisfied Choose Same Treatment Again Completely uncertain [facility] Response 04/24/2019 KOOS JR Scores 52.47 Spine [facility] Response 04/24/2019 KOOS JR Scores 52.47 ASSESSMENT/PLAN: Ms. Yusuf is a 59 y.o. year old female with severe osteoarthritis of her right knee. We reviewed the multiple treatment options available to her for this condition. Both operative and nonoperative options were discussed as well as the pure elective nature of each. I reviewed the concept of the arthritis ladder with its step-kaur approach, rising in invasiveness based on either previous response or symptom severity/impact on lifestyle. Considering the apparent impact on her lifestyle and having explored non- operative treatment options, I indicated that in my opinion, the treatment most likely to restore a more normal, pain-free levelof function would be a right knee joint replacement. Ms. Yusuf originally came with the intention of d iscussing a repeat right knee corticosteroid injection, however decided against this when we discussed we would recommend waiting at least 3 months post steroid injection before having major procedure such as a right total knee arthroplasty. At this point the patient does have interest in pursuing total knee arthroplasty, however is most interested in seeing a provider in [facility]. Sheintends to follow-up with this provider in approximately 1 month to discuss moving forward with a total knee arthroplasty. Should the patient decides she would like to have her knee replaced at [facility], we informed her we would be happy to see her back in clinic to discuss this further. All questions were answered. Heriberto Lees MD Orthopaedic Surgery 04/24/2019 Eber Suresh MD - 04/24/2019 12:50 PM EDT I saw and evaluated the patient. I was integral in formulating the plan as outlined. EBER SURESH MD documented in this encounter Plan of Treatment Not on filedocumented as of this encounter Visit Diagnoses Diagnosis Primary osteoarthritis of right knee Primary localized osteoarthrosis, lower leg documented in this encounter Care Teams Manager Housekeeping Relationship Specialty Start Date End Date Daniel Hinkle MD PCP - General Family Medicine 09/19/16 [address] [place] [address] documented as of this encounter
--- OUTSIDE RECORDS SUMMARY | 2022-05-27 14:51 | XMS_ITS | Encounter Summary ---
:1960 Author Organization [facility] [place] [address] Care Team Providers Name Role Phone Daniel Hinkle MD Primary Care Provider Encounter Details Date Type Department Care Team Description 09/03/2018 Hospital Encounter Hematology and Amyloid osis cutis; Oncology at [facility] Amyloidosis, [place] [address] Social History Tobacco Use Types Packs/Day [...] Sig Dispensed Refills Start Date End Date losartan-hydrochlorothiazid take 1 tablet by 0 e [...] 20 mg by 0 tablet mouth nightly. pramipexole (MIRAPEX) 0.125 1 t at bedtime 180 tablet 3 11/1211/19/2018 mg TabletIndications: for 2-4 days, if Restless legs syndrome not sleeping well enough, may increase to 2 T thereafter, call if not better documented as of this encounter Plan of Treatment Not on filedocumented as of this encounter Procedures Procedure Name Priority Date/Time Associated Comments Diagnosis IMMUNOGLOBULIN FREE STAT 09/03/2018 12:14 Amyloidosis cutis Results for this LIGHT CHAINS, SERUM PM EST Amyloidosis, procedur e are in unspecified type the results section. HEMOGRAM STAT 09/03/2018 12:14 Amyloidosis cut is Results for this PM EST Amyloidosis, procedure are i n unspecified type the results section. DIFFERENTIAL, AUTOMATED STAT 09/03/2018 12:14 Amyloid osis cutis Results for this PM EST Amyloidosis, procedure are i n unspecified type the results section. CBC (WITH DIFF) STAT 09/03/2018 12:14 Amyloidosis cut is PM EST Amyloidosis, unspecified type PROTEIN STAT 09/03/2018 12:14 Amyloidosis cut is Results for this ELECTROPHORESIS, SERUM PM EST Amyloidosis, proce dure are in unspecified type the results section. COMPREHENSIVE METABOLIC STAT 09/03/2018 12:14 Amyloid osis cutis Results for this PANEL (NON-FASTING) PM EST Amyloidosis, procedur e are in unspecified type the results section. documented in this encounter Results (ABNORMAL) Differential, Automated (09/03/2018 12:14 PM EST) [facility] Method Time Signature Neutrophils % 71.6 % [facility] Neutr Abs (ANC) 3.83 1.70 - [facility] 6.10 [facility] x10(3)/[facility] LABORATORY Lymphocytes % 14.0 % [facility] Lymphocytes Abs 0.8 (L) 0.9 - 3.2 [facility] x10(3)/[facility] LABORATORY Monocytes % 9.5 % [facility] Monocyte Abs 0.5 0.3 - 0.9 [facility] x10(3)/[facility] LABORATORY Eosinophils % 3.9 % [facility] Eosinophils Abs 0.2 0.0 - 0.4 [facility] x10(3)/[facility] LABORATORY Basophils % 0.6 % [facility] Basophils Abs 0.0 0.0 - 0.1 [facility] x10(3)/[facility] LABORATORY Immature Gran % 0.40 % [facility] Comment: Immature granulocytes(IG's)percentage an d absolute count will include metamyelocytes, myelocytes, and promyelo cytes. Blood smears from CBCs yielding IG's will be scanned manually for concor dance. If this scan disagrees with the automated IG or if promyelocytes are not ed, a manual differential will be performed. Cheryl Gran Abs 0.02 0.00 - 0.04 x10(3)/[facility] Specimen Anatomical Collection Method Collection Time Receive d Time (Source) Location / / Volume Laterality Blood specimen 09/03/2018 12:14 9 (specimen) PM EST 12:21 PM EST Resulting Agency Comment Spec In Lab Farzaneh Valera MD HEMATOLOGY ORDERABLES Performing Organization Address City/State/ZIP [place] [address] (ABNORMAL) Hemogram (09/03/2018 12:14 PM EST) Analysis Performed At Patho logist Time Signature WBC 5.4 4.0 - 9.5 [facility] x10(3)/[facility] LABORATORY RBC 5.09 4.00 - [place] 5.21 [facility] x10(6)/[facility] LABORATORY Hemoglobin 14.2 11.7 - [facility] 15.5 gm/dL [facility] Hematocrit 41.8 35.7 - [facility] 45.8 % [facility] MCV 82.1 (L) 82.6 - [facility] 94.4 [facility] LABORATORY MCH 27.9 27.1 - [facility] 32.0 pg [facility] MCHC 34.0 31.7 - [facility] 35.[facility] gm/dL [facility] Platelets 252 145 - 357 [facility] x10(3)/[facility] LABORATORY RDWSD 38.5 37.0 - [facility] JIGAR 46.0 [facility] LABORATORY RDWCV 12.8 11.5 - [facility] JIGAR 14.1 % [facility] MPV 9.3 7.6 - 12.9 [facility] LABORATORY nRBC % Auto 0.0 % [facility] nRBC Abs Auto 0.000 0.000 - [facility] 0.000 [facility] x10(3)/[facility] LABORATORY Specimen Anatomical Collection Method Collection Time Receive d Time (Source) Location / / Volume Laterality Blood specimen 09/03/2018 12:14 9 (specimen) PM EST 12:21 PM EST Resulting Agency Comment Spec In Lab Farzaneh Valera MD HEMATOLOGY ORDERABLES Performing Organization Address City/State/ZIP [place] [address] (ABNORMAL) Comprehensive metabolic panel (non-fasting) (09/03/2018 12:14 PM EST) P athologist Signature Glucose Lvl 116 65 - 199 [facility] mg/dL [facility] Comment: Diabetes: >=200 mg/dL plus symp toms BUN 12 8 - 18 mg/dL [facility] Creatinine 0.80 0.70 - 1.20 mg/dL [facility] Sodium 142 135 - 145 mmol/L [facility] Potassium 3.6 3.5 - 5.0 mmol/L [facility] Comment: Please note: ??Patients with WBC >100,00 0 may have falsely elevated Potassium levels. ??For accurate Potassium quantif ication in these patients send serum separator tube (gold top) for subsequent determinations. ??Contact the Clinical Chemistry Laboratory if there are any qu estions. Chloride 101 98 - 107 mmol/L [facility] CO2 26 22 - 31 mmol/L [facility] Anion Gap 15 5 - 15 mmol/L [facility] Calcium 8.2 (L) 8.5 - 10.5 mg/dL [facility] Total Protein 6.4 6.1 - 8.0 gm/dL [facility] Albumin 3.8 3.2 - 5.2 gm/dL [facility] AST 21 0 - 30 unit/L [facility] ALT 18 0 - 30 unit/L [facility] Alk Phos 117 (H) 40 - 104 unit/L [facility] Total Bilirubin 0.3 0.2 - 1.3 mg/dL [facility] Estimated GFR 82 >=60 mL/min/1.73 m?? [facility] Comment: The eGFR was calculated using the CKD-EP I equation. As with all creatinine based estimates of kidney function, eGFR values calculated with the CKD-EPI equation are not accurate in patients wi th acute kidney failure, extremes of body mass or the acutely ill. http://[employer]/DHnkf eGFR 96 >=60 mL/min/1.73 m?? [facility] Comment: The eGFR was calculated using the CKD-EP I equation. As with all creatinine based estimates of kidney function, eGFR values calculated with the CKD-EPI equation are not accurate in patients wi th acute kidney failure, extremes of body mass or the acutely ill. http://[employer]actually.[employer]/DHMCnkf Specimen Anatomical Collection Method Collection Time Receive d Time (Source) Location / / Volume Laterality Blood specimen 09/03/2018 12:14 9 (specimen) PM EST 12:21 PM EST Resulting Agency Comment Spec In Lab Farzaneh Valera MD CHEMISTRY ORDERABLES Performing Organization Address City/[facility]/ZIP Code Phon e Number [address] Protein Electrophoresis, serum (09/03/2018 12:14 PM EST) Patholo gist Method Time Signature Total Prot 6.1 6.1 - 8.0 [place] Elec gm/dL [facility] Albumin Elect 4.09 3.60 - 6.00 [facility] gm/dL [facility] Alpha1-Globul 0.22 0.10 - 0.30 [place] in gm/dL [facility] Alpha2-Globul 0.72 0.40 - 0.90 [place] in gm/dL [facility] Beta Globulin 0.57 0.50 - 1.00 [place] gm/dL [facility] Gamma 0.51 0.50 - 1.30 [facility] Globulin gm/dL [facility] M1 Band None None [place] Detected Detected [facility] Specimen Anatomical Collection Method Collection Time Receive d Time (Source) Location / / Volume Laterality Blood specimen 09/03/2018 12:14 9 (specimen) PM EST 12:21 PM EST Resulting Agency Comment Spec In Lab Farzaneh Valera MD CHEMISTRY ORDERABLES Performing Organization Address City/[facility]/ZIP Code Phon e Number [address] Free Light Chains, Serum (09/03/2018 12:14 PM EST) P athologist Signature Dugger Free 1.89 0.81 - [facility] JIGAR Light Chains 2.98 mg/dL [facility] Lambda Free 1.23 0.86 - [facility] JIGAR Light Chains 1.99 mg/dL [facility] Dugger/Lambda 1.5366 0.5000 - [place] Free Light [address] [facility] LABORATORY Comment: Please be advised that following a multi -institution study the reference interval for Serum Free Light Chains was updated August 25, 2017. Specimen Anatomical Collection Method Collection Time Receive d Time (Source) Location / / Volume Laterality Blood specimen 09/03/2018 12:14 9 (specimen) PM EST 12:21 PM EST Resulting Agency Comment Spec In Lab Farzaneh Valera MD CHEMISTRY ORDERABLES Performing Organization Address City/State/ZIP Code Phon e Number [place] [phone] documented in this encounter Visit Diagnoses Diagnosis Amyloidosis cutis Other amyloidosis Amyloidosis, unspecified type documented in this encounter Care Teams Supervisor Special Services Relationship Specialty Start Date End Date Daniel Hinkle MD PCP - General Family Medicine 09/19/16 [place] [address] documented as of this encounter
--- OUTSIDE RECORDS SUMMARY | 2022-05-27 14:51 | XMS_ITS | Encounter Summary ---
:1960 Author Organization [facility] [place] [address] Care Team Providers Name Role Phone Daniel Hinkle MD Primary Care Provider Reason for Referral Physical Therapy (Routine) - Specialty Diagnoses / Procedures Referred By Contact Refer red To Contact Physical Therapy Diagnoses Primary osteoarthritis of right knee Rom Rouse MD [facility] [place] [address] Referral ID Status Reason Start Date Expiration Date Visits V isits Requested Authorized Evaluate and 02/22/2017 08/21/2017 12 12 Treat Reason for Visit Reason Comments Right Knee Pain Consultation (Routine) - Specialty Diagnoses / Procedures Referred By Contact Refer red To Contact Orthopaedics Diagnoses Primary osteoarthritis of knee, unspecified laterality RIGHT KNEE PAIN- TORN MENISCUS Patricio Lowe MD Sparks, Michael B, MD [facility] RHEUMATOLOGY [place]PT[place] [address] Fax: Referral ID Status Reason Start Date Expiration Date Visits V isits Requested Authorized Consult, 02/02/2017 02/02/2018 2 2 Test & Treat Encounter Details Date Type Department Care Team Description 02/22/2017 Office Visit Orthopaedics at [facility] Eber Suresh Primary osteoarthritis [facility] MD Lill[place] [address] CENTER [phone] [place] [address] Social History Tobacco Use Types Packs/Day Years [...] Sign Reading Time Taken Comments Blood Pressure 135/47 02/22/2017 8:36 AM EDT Pulse 72 02/22/2017 8:36 AM EDT Temperature - - Respiratory Rate - - Oxygen Saturation - - Inhaled Oxygen Concentration - - Weight 94.8 kg (209 lb) 02/22/2017 8:36 AM EDT Height 167 cm (5' 5.75) 02/22/2017 8:36 AM EDT Body Mass Index 33.99 02/22/2017 8:36 AM EDT documented in this encounter Progress Notes Rom Rouse MD - 02/22/2017 8:30 AM EDT Images from the original note were not included. Department of Orthopaedics Division of Adult Joint Reconstructive Surgery CHIEF COMPLAINT: Chief Complaint Patient presents with ??? Right Knee Pain ARTHROPLASTY HISTORY/PREVIOUS KNEE SURGERY: 1. None Francie Yusuf was referred from Patricio Lowe MD [facility] [address] I.D.: Francie Yusuf is a 56 y.o. year old female being seen today to discuss her right knee. Her history and physical exam were reviewed in detail. She states the knee has been symptomatic for months. The pain is predominantly medial. There was notinciting trauma/injury. She does not describe hip pain. She feels that her knee pain is keeping her from nothing in particular, but is nonetheless bothersome. Aggravating factors include activity, stair climbing. Alleviating factors include medication: ibuprofen. The patient has pain at night.. She can weight bear on the right leg and does not use assistive devices. She has not tried physical therapy. She has not had injections into the joint.: She has NSAIDs/Pain meds: Ibuprofen used but not effective She has not had brace treatment: Ms. Yusuf denies fevers/chills/headache/chest pain/shortness of breath/abdominal pain/nausea or vomiting/weight changes She does endorse a history of DVT/PE or clotting disorder. QUESTIONNAIRE RESPONSES: General Health, Prior Treatments, PreExisting Condition, Health Habits, About You 02/22/2017 PROMIS-10 General Health Poor PROMIS-10 Quality of Life Fair PROMIS-10 Physical Health Poor PROMIS-10 Mental Health Fair PROMIS-10 Social Activity Fair PROMIS-10 Everyday Activities Moderately PROMIS-10 Pain 8 PROMIS-10 Fatigue Severe PROMIS-10 Social Roles Fair PROMIS-10 Anxious or Depressed Often PROMIS PHYSICAL SCORE (range 16-68) 29.6 PROMIS MENTAL SCORE (range 21-68) 33.8 Treatments Tried Physical therapy, Medicines applied on the skin (topical), Acetaminophen (e.g. Tylenol) KALANI JR Scores 50.01 TKA Grade 2 Alzheimers or dementia No Cirrohosis or liver disease No HIV/AIDS No Pain in more than one joint in legs Yes Back or neck pain Yes Heart attack No Heart failure Yes Unclog/bypass leg arteries No Stroke, blood clot, TIA No Asthma Yes Take medication for asthma Yes Emphysema, chronic bronchities, or COPD No Stomach ulcers/peptic ulcer disease No Diabetes No Poor kidney function No Rheumatic condtions Yes Take medications for rheumatic conditions Yes Cancer No Weight (lbs) 195 Height (feet) 5 feet Height (Inches) 5 BMI 32.44 (Obese) Ever used tobacco products Yes Tobacco frequency Never WHO - Tobacco Advice 0 (You are at low risk of health and other problems from your current pattern of use.) Ever used alcoholic beverages Yes Alcohol frequency Monthly WHO - Alcohol Advice 3 (You are at low risk of health and other problems from your current pattern of use.) Live Alone No Marital situation / Schooling Some high school, but did not graduate Combined Household Income Less than $10,000 # People Supported 2 Welsh, , No, not Welsh// Race White Health Literacy Somewhat Currently working No Not working because: Other Orthopeadics [facility] Response 02/22/2017 KOOS JR Scores 50.01 Spine [facility] Response 02/22/2017 KOOS JR Scores 50.01 ALLERGIES Allergies Allergen Reactions ??? Azathioprine Nausea And Vomiting ??? Mycophenolate Mofetil Nausea And Vomiting Allergies to metals: negative. SOCIAL HISTORY: reports that she quit smoking about 24 years ago. Her smoking use included Cigarettes. She has a 22.50 pack-year smoking history. She has never used smokeless tobacco. She reports that she drinks about 1.2 oz of alcohol per week She reports that she does not use illicit drugs. 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 Primary osteoarthritis of right knee M17.11 VITALS: BP Readings from Last 1 Encounters: 02/22/17 135/47 Pulse Readings from Last 1 Encounters: 02/22/17 72 Height: 167 cm (5' 5.75) Weight - Scale: 94.8 kg (209 lb) Body mass index is 33.99 kg/(m^2). PHYSICAL EXAM: Constitution: Francie Janet Yusuf sits in the clinic today alert, appears stated age and cooperative. She is alert and oriented. I have made the following determinations: Knee Exam: Right Prior surgery on this joint: No Knee ROM: Extension:5 Flexion: 95 Alignment: 5-10 degrees Valgus Stability: A/P Translation <5mm. Varus (lateral stability) <5mm Valgus (medial stability) <5mm Extension La degrees or less Radiographic evidence of joint damage: [0= normal; 1=minimal ; 2= some osteophytes , some narrowing ; 3= moderate osteophytes, significant narrowing, mild deformity; 4= large osteophytes, marked narrowing, obvious deformity]: 4= large osteophytes, marked narrowing, obvious deformity Patella Tracking: Normal Skin Integrity: Normal at knee, but discoloration and changes distally Pulses Palpable: Right PT: Yes Right DP:Yes Motor/Sensory: Distal Motor: Normal Distal Sensory: Normal Quadriceps Strength: 5 Knee Effusion: 0-1+ Ecchymosis: none Patella: Patellar apprehension test: negative Patellar compression test: negative Tenderness: medial joint line and lateral joint line IMAGING: X-rays of the right knee demonstrate joint space narrowing, subchondral sclerosis, and shows DJD changes, likely chronic. Valgus deformity ASSESSMENT AND PLAN:Ms. Yusuf is a 56 y.o. year old female with severe osteoarthritis of her right knee. Questions solicited and answered. Patient voiced understanding to info/instructions given. Treatment options discussed including Surgical options discussed knee right total knee., Medication options discussed and recommended., Physical Therapy discussed and ordered, Activity modification discussed and recommended, weight loss recommended. We reviewed the multiple treatment options available to her for this condition and the hurtful but non-harmful nature of arthritis. Both operative and nonoperative options were discussed as well as thepure elective nature of each. I reviewed the concept of the arthritis ladder with its step-kaur approach, rising in invasiveness based on either previous response or symptom severity/impact on lifestyle. We discussed surgical and non-surgical options. At this time, Ms. Yusuf would prefer to avoid surgeryand try conservative options including PT, medications, and activity modification. We provided her with a referral to PT at today's visit. She will follow up in 2 months for an assessment of her progress. Potential barriers to total joint arthroplasty: -BMI > 40: No -Active Tobacco use: No -Diabetes with hemoglobin A1C > 7.5: No -H/o antiphospholipid antibody syndrome, amyloidosis, and on immunomodulatory type medications ROM ROUSE MD Eber Suresh MD - 02/22/2017 8:30 AM EDT I saw and evaluated the patient. I was integral in formulating the plan as outlined. EBER SURESH MD documented in this encounter Plan of Treatment Scheduled Referrals Name Type Priority Associated Diagnoses Order S chedule Referral to Outpatient Referral Routine Primary osteoarthriti s Ordered: Physical Therapy of right knee 02/22/2017 documented as of this encounter Visit Diagnoses Diagnosis Primary osteoarthritis of right knee Primary localized osteoarthrosis, lower leg documented in this encounter Care Teams Professional Architect Relationship Specialty Start Date End Date Daniel Hinkle MD PCP - General Family Medicine 09/19/[address] [place] [address] [place] [address] documented as of this encounter
--- OUTSIDE RECORDS SUMMARY | 2022-05-27 14:51 | XMS_ITS | Encounter Summary ---
:1960 Author Organization [facility] [place] [address] Care Team Providers Name Role Phone Daniel Hinkle MD Primary Care Provider Encounter Details Date Type Department Care Team Description 08/29/2017 Telephone Rheumatology at [facility] Juan Waters, [place] [address] Social History Tobacco Use Types Packs/Day [...] Telephone Encounter - Juan Waters RN - 08/29/2017 8:57 AM EST Patient states saw PCP yesterday, no anti-biotics at this time. States was prescribed steroid spray and Kelly pot and that PCP did not want to put her on any further abx therapy currently. Patient questions whether she should be on longer antibiotic course. Still producing green boogers and occasional coughs up green sputum. Denies fevers, but states has had occasional chills. She continues to feelcongested and stuffy, producing green sputum last night. She states historically she has tried Mucinex in the past with minimal help, has seen an ENT in the past with no further advisement. She has nottaken her methotrexate and denies any increased joint discomfort currently. She seeks further advisement on how to proceed. Message sent to Dr. Lowe. Per Dr. Lowe, if not any better by or has a fever over 100, she should be seen by her PCP and to continue to hold the Methotrexate. Spoke with patient and expressed understanding. documented in this encounter Plan of Treatment Not on filedocumented as of this encounter Visit Diagnoses Not on filedocumented in this encounter Care Teams Environmental Sampler Relationship Specialty Start Date End Date Daniel Hinkle MD PCP - General Family Medicine 09/19/[address] [place] [address] documented as of this encounter
--- OUTSIDE RECORDS SUMMARY | 2022-05-27 14:51 | XMS_ITS | Encounter Summary ---
:1960 Author Organization [facility] [place] [address] Care Team Providers Name Role Phone Daniel Hinkle MD Primary Care Provider Encounter Details Date Type Department Care Team Description 08/30/2017 Telephone Rheumatology at [facility] Juan Waters, [place] [address] Social History Tobacco Use Types Packs/Day [...] Encounter - Juan Waters RN - 08/30/2017 3:06 PM EST Patient states seen in ED, started on Doxycycline 100 mg bid for 10 days, saline spray, see ENT (patient states has one), will try to see PCP on Monday. Patient also to take Probiotics per MD. documented in this encounter Plan of Treatment Not on filedocumented as of this encounter Visit Diagnoses Not on filedocumented in this encounter Care Teams Umbrella Tipper Machine Relationship Specialty Start Date End Date Daniel Hinkle MD PCP - General Family Medicine 09/19/16 [place] [address] documented as of this encounter
--- OUTSIDE RECORDS SUMMARY | 2022-05-27 14:52 | XMS_ITS | Encounter Summary ---
:1960 Author Organization [facility] [place] [address] Care Team Providers Name Role Phone Kunal Nesbitt MD Primary Care Provider Encounter Details Date Type Department Care Team Description 02/08/2016 Office Visit Rheumatology at [facility] Patricio Lowe MD Lupus [facility] [place] [address] RHEUMATOLOGY DEPT. [phone] [place], [place] [address] (Wo rk) Social History Tobacco [...] Sign Reading Time Taken Comments Blood Pressure 151/84 02/08/2016 12:08 PM EDT Pulse 69 02/08/2016 12:08 PM EDT Temperature 36.8 ??C (98.3 ??F) 02/08/2016 12:08 PM EDT Respiratory Rate - - Oxygen Saturation 100% 02/08/2016 12:08 PM EDT Inhaled Oxygen Concentration - - Weight 95.3 kg (210 lb) 02/08/2016 12:08 PM EDT Height 165.1 cm (5' 5) 02/08/2016 12:08 PM EDT Body Mass Index 34.95 02/08/2016 12:08 PM EDT documented in this encounter Patient Instructions Patient InstructionsPatricio Lowe MD - 02/08/2016 12:26 PM EDT 1. Labs today 2. Antacids at bedtime every night 3. Taper daily prednisone by 1 mg every week until get to 10 mg/d. Stay at 10 mg/d 4. RTC in 2+ monthss documented in this encounter Progress Notes Patricio Lowe MD - 02/08/2016 8:24 AM EDT Subjective: Patient ID: Francie Yusuf is a 55 y.o. female last seen in 2012 with [...] shortness of breath prompting an admission to [facility] in October 2015 where patchy subsegmental opacities were seen in the lung with presumed lupus pneumonitis treated with high dose steroids. When steroid sparing efforts were attempt to using very low dose MMF and AZA were associated with marked GI intolerance at the lowest possible doses so MTX started. When last seen on 12.29.15, she reported many different symptoms and was anxious. However PFTS were unchanged FEV1 78%, DLCO 82% from . Her prednisone was reduced from 30 mg/d to 20 mg/d and we advanced her MTX Interval History: She returns in 1 month follow up characterized by multiple phone calls in which she reported GI intolerance of the smallest doses of MMF, AZA and MTX. There has also been an enormous effort to try to help her get past her fears about immunosuppressive elements of these medications. Major Issues: 1. Dyspnea: Now on Prednisone 18 mg/d. Using inhalers as well. Does not feel like this has changed. Taking walks three times a week. Weight unchanged today 2. New right sided neck pain with radiation into volar surface of forearm, seems better with PT 3. No joint pain. MTX 3 T a week, no side effects 4. Recurrent left sided chest wall pain has returned. 5. Right anterior chest pain; severe approximately 6 times[facility] Episode of diverticulitis May 2015 with LLQ pain/anemia: Did not have colonscopy planned 7. 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 No change 8. Dry eyes: lacrimal duct plugging this am Review of Systems Constitutional: No fevers, chills, malaise no change. Skin: no rashes no Raynauds HEENT: ++ sicca sx, change in hearing, taste sinus [...] CXR and echocardiogram. She was transferred to [facility] s/p IR guided drainage of 70cc of [...] 2. Venous stasis disease Objective: Physical Exam Increasingly Cushingoid woman looking stated age in NAD. She has gained weight Blood pressure 151/84, pulse 69, temperature 36.8 ??C (98.3 ??F), temperature source Oral, height 165.1 cm (5' 5), weight 95.3 kg (210 lb), SpO2 100 %. Skin exam: No UE bruising . No telangectasias. Brownish elevated plaques on LE, largest is 3 cm across, most are <0.5 cm. These are darkening according to the patient. Normal nailfold exam. No digital ulcers, cuticular overgrowth. There is 1+lower extremity swelling. HEENT: moist mucus membranes, +salivary pooling. Mild submandibular tenderness, no parotid enlargement. Neck supple JVD<5 cm. no bruits. Chest: I think she is moving air very well. No obvious wheezing. No longer diffuse sternochondral tenderness, no splinting Cor: RR no rub Joint exam UE joint exam: normal except for marichuy OA. No active synovitis Extremities: edema trace-1+ Assessment and Plan: Lupus pneumonitis responding to high dose steroids, now confounded by intolerance and fear of various medications. It is hard to tell if AZA/MMF were that poorly tolerated. Prednisone tapering successful thus far. Right sided chest pain sounds more like reflux 1. Labs today 2. Continue taper of Prednisone, try increasing it to 1 mg dose reduction every week 3. Increase MTX 10 mg/week, taken on Fridays at dinner 4. Cervical radiculopathy: follow 5. Suggest trial of antacids at HS or with symptoms Level 4 follow up Patricio Lowe M.D. PFTS today: FEV1 78%, DLCO 82%. These are essentially unchanged from Last PFTS in 3.2016 showed DLCO75%, FEV1 of 1.86 when she was having little or no breathing symptoms. I have to wonder if deconditioning is playing a role here. Labs improved as well. Will send letter summarizing these findings No results found for this or any previous visit (from the past 24 hour(s)). documented in this encounter Miscellaneous Notes Addendum Note - Yancy Estrada - 02/08/2016 12:42 PM EDT Addended by: YANCY ESTRADA on: 02/08/2016 12:42 PM Modules accepted: Orders documented in this encounter Plan of Treatment Not on filedocumented as of this encounter Procedures Procedure Name Priority Date/Time Associated Comments Diagnosis HEMOGRAM Routine 02/08/2016 12:46 Lupus Results for this PM EDT procedure are i n the results section. DIFFERENTIAL, Routine 02/08/2016 12:46 Lupus Results fo r this AUTOMATED PM EDT procedure are i n the results section. CBC (WITH DIFF) Routine 02/08/2016 12:46 Lupus PM EDT CRP, CARDIAC RISK (HS Routine 02/08/2016 12:46 Lupus Re sults for this CRP) PM EDT procedure are i n the results section. COMPREHENSIVE Routine 02/08/2016 12:46 Lupus Results fo r this METABOLIC PANEL PM EDT procedure ar e in (NON-FASTING) the results section. documented in this encounter Results (ABNORMAL) Differential, Automated (02/08/2016 12:46 PM EDT) [facility] Method Time Signature Neutrophils % 91.6 % [facility] Neutr Abs (ANC) 12.00 (H) 1.50 - [facility] 6.30 [facility] x10(3)/[facility] L LABORATORY Lymphocytes % 5.7 % [facility] Lymphocytes Abs 0.7 (L) 1.0 - 3.6 [facility] x10(3)/[facility] LABORATORY Monocytes % 2.2 % [facility] Monocyte Abs 0.3 0.2 - 1.0 [facility] x10(3)/[facility] LABORATORY Eosinophils % 0.1 % [facility] Eosinophils Abs 0.0 0.0 - 0.5 [facility] x10(3)/[facility] LABORATORY Basophils % 0.1 % [facility] Basophils Abs 0.0 0.0 - 0.2 [facility] x10(3)/[facility] LABORATORY Immature Gran % 0.30 % [facility] Comment: Immature granulocytes(IG's)percentage an d absolute count will include metamyelocytes, myelocytes, and promyelo cytes. Blood smears from CBCs yielding IG's will be scanned manually for concor dance. If this scan disagrees with the automated IG or if promyelocytes are not ed, a manual differential will be performed. Cheryl Gran Abs 0.04 0.00 - 0.05 x10(3)/[facility]L [facility] Specimen Anatomical Collection Method Collection Time Receive d Time (Source) Location / / Volume Laterality Blood specimen 02/08/2016 12:46 6 (specimen) PM EDT 12:59 PM EDT Resulting Agency Comment Spec In Lab Patricio Lowe MD HEMATOLOGY ORDERABLES Performing Organization Address City/State/Z[place] [address] (ABNORMAL) Hemogram (02/08/2016 12:46 PM EDT) athologist Signature WBC 13.1 (H) 4.0 - 10.0 [facility] x10(3)/[facility] LABORATORY RBC 4.95 3.93 - [place] 5.22 [facility] x10(6)/[facility] LABORATORY Hemoglobin 14.6 11.2 - [facility] 15.[facility] gm/dL [facility] Hematocrit 41.5 34.0 - [facility] 45.0 % [facility] MCV 83.8 79.0 - [facility] 94.0 [facility] LABORATORY MCH 29.5 26.6 - [facility] 32.2 pg [facility] MCHC 35.2 32.0 - [facility] 36.5 gm/dL [facility] Platelets 271 145 - 370 [facility] x10(3)/[facility] LABORATORY RDWSD 48.0 (H) 35.0 - [facility] LAB[facility] RDWCV 15.8 (H) 10.9 - [facility] JIGAR 14.4 % [facility] MPV 9.7 9.0 - 12.0 [facility] LABORATORY Specimen Anatomical Collection Method Collection Time Receive d Time (Source) Location / / Volume Laterality Blood specimen 02/08/2016 12:46 6 (specimen) PM EDT 12:59 PM EDT Resulting Agency Comment Spec In Lab Patricio Lowe MD HEMATOLOGY ORDERABLES Performing Organization Address City/State/[place] [address] High Sensitivity CRP (02/08/2016 12:46 PM EDT) athologist Signature CRP High Sens 3.2 mg/L [facility] Comment: Interpretations: 1) For accurate cardiac risk assessment, the average of 2 values >2 weeks apart should be obtained (ref 1&2). A value >1 0 mg/L indicates an inflammatory condition, concentrations >10 mg/L shoul d not be used for cardiac risk assessment. ?<1.0 mg/L: low risk ?1.0 - 3.0 mg/L: moderate risk ?>3.0 mg/L: high risk groups for fu ture cardiovascular events 2) The general reference range of appare ntly healthy individuals using this test is <5.0 mg/L (derived from the test package insert) References: 1. Sugey LABOY et. al. ??AHA/CDC Scientif ic Statement: Markers of Inflammation and Cardiovascular Disease. ??Circulatio n 2003; 107:499-511 2. Ridker PM. ??Clinical applications of C-reactive protein for cardiovascular disease detection and prevention. ??Circ ulation 2003; 107:363-369 Specimen Anatomical Collection Method Collection Time Receive d Time (Source) Location / / Volume Laterality Blood specimen 02/08/2016 12:46 6 (specimen) PM EDT 12:59 PM EDT Resulting Agency Comment Spec In Lab Patricio Lowe MD CHEMISTRY ORDERABLES Performing Organization Address City/State/[place] [address] (ABNORMAL) Comprehensive metabolic panel (non-fasting) (02/08/2016 12:46 PM EDT) athologist Signature Glucose Lvl 115 65 - 199 [facility] mg/dL [facility] Comment: Diabetes: >=200 mg/dL plus symp toms BUN 13 8 - 18 mg/dL [facility] Creatinine 0.94 0.70 - 1.20 mg/dL [facility] Comment: Please note that the pediatric reference intervals supplied above were not validated at [facility]. Results from pediatri c patients should be interpreted in conjunction to the patient's age, height and muscle mass. Sodium 140 135 - 145 mmol/L [facility] Potassium 3.5 3.5 - 5.0 mmol/L [facility] Comment: Please note: ??Patients with WBC >100,00 0 may have falsely elevated Potassium levels. ??For accurate Potassium quantif ication in these patients send serum separator tube (gold top) for subsequent determinations. ??Contact the Clinical Chemistry Laboratory if there are any qu estions. Chloride 98 98 - 107 mmol/L [facility] CO2 28 22 - 31 mmol/L [facility] Anion Gap 14 5 - 15 mmol/L [facility] Calcium 8.3 (L) 8.5 - 10.5 mg/dL [facility] Total Protein 6.6 6.1 - 8.0 gm/dL [facility] Albumin 4.4 3.2 - 5.2 gm/dL [facility] AST 17 0 - 30 unit/L [facility] ALT 17 0 - 30 unit/L [facility] Alk Phos 58 40 - 104 unit/L [facility] Total Bilirubin 0.4 0.2 - 1.3 mg/dL [facility] Bili, Direct 0.1 0.0 - 0.3 mg/dL [facility] Estimated GFR >60 >=60 [facility] Comment: This estimated GFR (eGFR) value was calc ulated using the MDRD equation which has been validated on patients between t he ages of 18 and 70. The MDRD should not be used to assess kidney function in patients < 18 years of age or in patients with extremes of body mass, or in patients with acute kidney failure. This value should be multiplied by 1.2 f or patients. For further information please copy and past e the following links into your internet browser. [email or web address] [email or web address].com/DHMCnkf Specimen Anatomical Collection Method Collection Time Receive d Time (Source) Location / / Volume Laterality Blood specimen 02/08/2016 12:46 6 (specimen) PM EDT 12:59 PM EDT Resulting Agency Comment Spec In Lab Patricio Lowe MD CHEMISTRY ORDERABLES Performing Organization Address City/State/Z[place] [address] documented in this encounter Visit Diagnoses Diagnosis Lupus Systemic lupus erythematosus documented in this encounter Care Teams Search And Rescue Officer Relationship Specialty Start Date End Date Kunal Nesbitt MD PCP - General Family Medicine 06/09/15 04/03/16 documented as of this encounter
--- OUTSIDE RECORDS SUMMARY | 2022-05-27 14:52 | XMS_ITS | Encounter Summary ---
:1960 Author Organization [facility] [address] Care Team Providers Name Role Phone Kunal Nesbitt MD Primary Care Provider Encounter Details Date Type Department Care Team Description 12/14/2015 Telephone Rheumatology [place] [facility] [place] [address] Social History Tobacco Use Types Packs/Day [...] this encounter Miscellaneous Notes Telephone Encounter - Violet Nash RN - 12/15/2015 12:23 PM EDT Called pt. Lft msg to have pt call our office. Telephone Encounter - Patricio Lowe MD - 12/15/2015 11:54 AM EDT Tried calling on cell and at home. Recommended on message on cell that she try taking 1 tablet of MTX (2.5 mg) this Monday and see how she does Patricio Lowe Telephone Encounter - Ina Espinoza LPN - 12/14/2015 10:42 AM EDT Francie calls and said she is not having any luck. She started a med on Monday as she was told and she continues with the NVD. She is just not feeling well and she is upset and discouraged. She want'sto speak to Dr. Lowe. She knows there is S/E to all meds and she needs to know what the next step will be? Message forwarded to Dr. Lowe. RTC to Francie Eng documented in this encounter Plan of Treatment Not on filedocumented as of this encounter Visit Diagnoses Not on filedocumented in this encounter Care Teams Seed Potato Arranger Relationship Specialty Start Date End Date Kunal Nesbitt MD PCP - General Family Medicine 06/09/15 04/03/16 documented as of this encounter
--- OUTSIDE RECORDS SUMMARY | 2022-05-27 14:52 | XMS_ITS | Encounter Summary ---
:1960 Author Organization [place] [address] Care Team Providers Name Role Phone Unknown Primary Care Provider Unavailable Encounter Details Date Type Department Care Team Description 04/04/2016 Hospital Encounter Hematology and Amyloid osis cutis; Oncology at [facility] Amyloidosis; [facility] [place]iph[place] [address] Social History Tobacco Use Types Packs/Day Years [...] 20 mg by 0 tablet mouth nightly. triamcinolone (KENALOG) 0.1 To the upper 45 g 0 201511/25/2016 % CreamIndications: Skin back twice daily rash for 3 weeks cycloSPORINE (RESTASIS) 0.05 Place 1 drop 180 vial 3 02/0711/25/2016 % DropperetteIndications: into both eyes Keratoconjunctivitis sicca every 12 hours. due to decreased tear production, bilateral predniSONE (DELTASONE) 5 mg Taper by 1 mg 300 tablet 3 01/0711/25/2016 Tablet every 2 weeks, use with 1 mg tablets predniSONE (DELTASONE) 1 mg Taper as 300 tablet 3 01/08/20 16 11/08/2016 Tablet directed every 2 weeks, Use with 5 mg tablets, methotrexate 2.5 mg Take 3 T on 60 tablet 11 12/29/201510/13 TabletIndications: Lung Monday with involvement in systemic dinner. Increase lupus erythematosus by 1 T each week as tolerated up to 6 T/week sulfamethoxazole-trimethopri Take 1 tablet by 90 tablet 3 0 12/02/2015 04/20/2016 m (BACTRIM;SEPTRA) 400-80 mg mouth daily. TabletIndications: Acute recurrent pansinusitis, Need for pneumocystis prophylaxis hydroxychloroquine Take 1 tablet by 60 tablet 6 11/23/2015 02/24/2017 (PLAQUENIL) 200 mg mouth daily. TabletIndications: Lupus predniSONE (DELTASONE) 20 mg Take 4 tablets 80 tablet 1 11/25/2016 Tablet by mouth daily. hydrochlorothiazide daily. 0 02/03/201504/25 (HYDRODIURIL) 25 mg Tablet acetaminophen (TYLENOL EXTRA Take by mouth as 0 0 01/13/2011 02/22/2017 STRENGTH) 500 mg tablet needed. Reported on 09/19/2016 documented as of this encounter Plan of Treatment Not on filedocumented as of this encounter Procedures Procedure Name Priority Date/Time Associated Comments Diagnosis IMMUNOGLOBULIN FREE STAT 04/04/2016 2:00 Amyloidosis cutis Results for this LIGHT CHAINS, SERUM PM EDT Amyloidosis procedure are in Antiphospholipid the results antibody syndrome section. IMMUNOGLOBULINS, STAT 04/04/2016 2:00 Amyloidosis cut is Results for this QUANTITATIVE PM EDT Amyloidosis procedure are in Antiphospholipid the results antibody syndrome section. IMMUNOFIXATION STAT 04/04/2016 2:00 Results fo r this ELECTROPHORESIS PM EDT procedure ar e in the results section. HEMOGRAM STAT 04/04/2016 2:00 Amyloidosis cuti s Results for this PM EDT Amyloidosis procedure are in Antiphospholipid the results antibody syndrome section. DIFFERENTIAL, AUTOMATED STAT 04/04/2016 2:00 Amyloido sis cutis Results for this PM EDT Amyloidosis procedure are in Antiphospholipid the results antibody syndrome section. CBC (WITH DIFF) STAT 04/04/2016 2:00 Amyloidosis cuti s PM EDT Amyloidosis Antiphospholipid antibody syndrome PROTEIN STAT 04/04/2016 2:00 Amyloidosis cuti s Results for this ELECTROPHORESIS, SERUM PM EDT Amyloidos is procedure are in Antiphospholipid the results antibody syndrome section. LACTATE DEHYDROGENASE STAT 04/04/2016 2:00 Amyloidosi s cutis Results for this PM EDT Amyloidosis procedure are in Antiphospholipid the results antibody syndrome section. COMPREHENSIVE METABOLIC STAT 04/04/2016 2:00 Amyloido sis cutis Results for this PANEL (NON-FASTING) PM EDT Amyloidosis procedure are in Antiphospholipid the results antibody syndrome section. documented in this encounter Results Immunofixation Electrophoresis (04/04/2016 2:00 PM EDT) P athologist Signature SOBEIDA See Note [facility] Comment: SOBEIDA shows no evidence of a monoclonal im munoglobulin. Dr. Ko Oliva 04/08/16 Please see scanned report in Chart Revie w under the [facility] Laboratory Heading. Specimen Anatomical Collection Method Collection Time Receive d Time (Source) Location / / Volume Laterality Blood specimen Venous Draw / 04/04/2016 2:00 PM 2015 2:10 (specimen) Unknown EDT PM EDT Narrative This result has an attachment that is no t available. Resulting Agency Comment Spec In Lab Farzaneh Valera MD CHEMISTRY ORDERABLES Performing Organization Address City/State/[place] [address] (ABNORMAL) Differential, Automated (04/04/2016 2:00 PM EDT) [facility] Method Time Signature Neutrophils % 89.1 % [facility] Neutr Abs (ANC) 9.20 (H) 1.50 - [facility] 6.30 [facility] x10(3)/[facility] L LABORATORY Lymphocytes % 6.4 % [facility] Lymphocytes Abs 0.7 (L) 1.0 - 3.6 [facility] x10(3)/[facility] LABORATORY Monocytes % 3.6 % [facility] Monocyte Abs 0.4 0.2 - 1.0 [facility] x10(3)/[facility] LABORATORY Eosinophils % 0.2 % [facility] Eosinophils Abs 0.0 0.0 - 0.5 [facility] x10(3)/[facility] LABORATORY Basophils % 0.2 % [facility] Basophils Abs 0.0 0.0 - 0.2 [facility] x10(3)/[facility] LABORATORY Immature Gran % 0.50 % [facility] Comment: Immature granulocytes(IG's)percentage an d absolute count will include metamyelocytes, myelocytes, and promyelo cytes. Blood smears from CBCs yielding IG's will be scanned manually for concor dance. If this scan disagrees with the automated IG or if promyelocytes are not ed, a manual differential will be performed. Cheryl Gran Abs 0.05 0.00 - 0.05 x10(3)/[facility] Specimen Anatomical Collection Method Collection Time Receive d Time (Source) Location / / Volume Laterality Blood specimen 04/04/2016 2:00 PM 016 2:07 (specimen) EDT PM EDT Resulting Agency Comment Spec In Lab Farzaneh Valera MD HEMATOLOGY ORDERABLES Performing Organization Address City/[facility]/[place] [address] (ABNORMAL) Hemogram (04/04/2016 2:00 PM EDT) Analysis Performed At Patho logist Time Signature WBC 10.3 (H) 4.0 - 10.0 [place] [facility] x10(3)/[facility] LABORATORY RBC 4.84 3.93 - [place] 5.22 [facility] x10(6)/[facility] LABORATORY Hemoglobin 13.7 11.2 - [place] 15.7 gm/dL [facility]ORY Hematocrit 41.0 34.0 - [place] 45.0 % [facility] MCV 84.7 79.0 - [facility]IGAR 94.0 [facility] LABORATORY MCH 28.3 26.6 - [place] 32.2 pg [facility] LAB[facility]ORY MCHC 33.4 32.0 - [place] 36.5 gm/dL [facility] Platelets 299 145 - 370 [facility] x10(3)/[facility] LABORATORY RDWSD 41.2 35.0 - [place] 46.0 [facility] LABORATORY RDWCV 13.3 10.9 - [facility] [place] 14.4 % [facility] LAB[facility]ATORY MPV 9.6 9.0 - 12.0 [facility] nRBC % Auto 0.0 % [facility] nRBC Abs Auto 0.000 0.000 - [facility] 0.012 [facility] x10(3)/[facility] LABORATORY Specimen Anatomical Collection Method Collection Time Receive d Time (Source) Location / / Volume Laterality Blood specimen 04/04/2016 2:00 PM 016 2:07 (specimen) EDT PM EDT Resulting Agency Comment Spec In Lab Farzaneh Valera MD HEMATOLOGY ORDERABLES Performing Organization Address City/State/[place] [address] Free Light Chains, Serum (04/04/2016 2:00 PM EDT) P athologist Signature [place] Free 0.81 0.33 - [facility] [employer] Light Chains 1.94 mg/dL [facility] LABORATORY Lambda Free 0.81 0.57 - [facility] Light Chains 2.63 mg/dL [facility] LABORATORY [place]/Lambda 1.0000 0.2600 - [facility] Free Light 1.6500 [facility] LABORATORY Specimen Anatomical Collection Method Collection Time Receive d Time (Source) Location / / Volume Laterality Blood specimen 04/04/2016 2:00 PM 016 2:07 (specimen) EDT PM EDT Resulting Agency Comment Spec In Lab Farzaneh Valera MD CHEMISTRY ORDERABLES Performing Organization Address City/State/ZIP Code Phon e Number [address] (ABNORMAL) Immunoglobulins, Quantitative (04/04/2016 2:00 PM EDT) P athologist Signature IgG 475 (L) 700 - 1,600 [facility] IgA 38 (L) 70 - 400 [facility] mg/dL [facility]ORY IgM 82 40 - 230 [facility] mg/dL [facility] Specimen Anatomical Collection Method Collection Time Receive d Time (Source) Location / / Volume Laterality Blood specimen 04/04/2016 2:00 PM 016 2:07 (specimen) EDT PM EDT Resulting Agency Comment Spec In Lab Farzaneh Valera MD CHEMISTRY ORDERABLES Performing Organization Address City/[facility]/ZIP Code Phon e Number [address] (ABNORMAL) Protein Electrophoresis, serum (04/04/2016 2:00 PM EDT) Patholo gist Method Time Signature Total Prot 6.4 6.1 - 8.0 [facility] Elec gm/dL [facility]ORY Albumin Elect 4.50 3.60 - [place] 6.00 [facility] LABORATORY Alpha1-Globul 0.20 0.10 - [place] in 0.30 [facility] LABORATORY Alpha2-Globul 0.71 0.40 - [place] in 0.90 [facility] LABORATORY Beta Globulin 0.58 0.50 - [facility] 1.00 [facility] LABORATORY Gamma 0.42 (L) 0.50 - [facility] Globulin 1.30 [facility] LABORATORY M1 Band Comments [facility] LABORATORY SPEP Comments See Note [facility] Comment: 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 Immunofixation (SOBEIDA) and quantitative immunoglobulin (G AM) testing will be performed on this sample. Specimen Anatomical Collection Method Collection Time Receive d Time (Source) Location / / Volume Laterality Blood specimen 04/04/2016 2:00 PM 016 2:07 (specimen) EDT PM EDT Narrative This result has an attachment that is no t available. Resulting Agency Comment Spec In Lab Farzaneh Valera MD CHEMISTRY ORDERABLES Performing Organization Address City/[facility]/ZIP [place] [address] (ABNORMAL) Lactate Dehydrogenase (04/04/2016 2:00 PM EDT) athologist Signature LDH 269 (H) 110 - 220 [facility] unit/L [facility] Specimen Anatomical Collection Method Collection Time Receive d Time (Source) Location / / Volume Laterality Blood specimen 04/04/2016 2:00 PM 016 2:07 (specimen) EDT PM EDT Resulting Agency Comment Spec In Lab Farzaneh Valera MD CHEMISTRY ORDERABLES Performing Organization Address City/[facility]/ZIP [facility] [place] [address] (ABNORMAL) Comprehensive metabolic panel (non-fasting) (04/04/2016 2:00 PM EDT) P athologist Signature Glucose Lvl 101 65 - 199 [facility] mg/dL [facility] Comment: Diabetes: >=200 mg/dL plus symp toms BUN 13 8 - 18 mg/dL [facility] Creatinine 0.80 0.70 - 1.20 mg/dL [facility] Comment: Please note that the pediatric reference intervals supplied above were not validated at [facility]. Results from pediatri c patients should be interpreted in conjunction to the patient's age, height and muscle mass. Sodium 144 135 - 145 mmol/L [facility] Potassium 3.7 3.5 - 5.0 mmol/L [facility] Comment: Please note: ??Patients with WBC >100,00 0 may have falsely elevated Potassium levels. ??For accurate Potassium quantif ication in these patients send serum separator tube (gold top) for subsequent determinations. ??Contact the Clinical Chemistry Laboratory if there are any qu estions. Chloride 101 98 - 107 mmol/L [facility] CO2 26 22 - 31 mmol/L [facility] Anion Gap 17 (H) 5 - 15 mmol/L [facility] Calcium 8.5 8.5 - 10.5 mg/dL [facility] Total Protein 6.7 6.1 - 8.0 gm/dL [facility] Albumin 4.4 3.2 - 5.2 gm/dL [facility] AST 23 0 - 30 unit/L [facility] ALT 19 0 - 30 unit/L [facility] Alk Phos 54 40 - 104 unit/L [facility] Total Bilirubin 0.3 0.2 - 1.3 mg/dL [facility] Bili, Direct 0.1 0.0 - 0.3 mg/dL [facility] Estimated GFR >60 >=60 [facility] Comment: This estimated GFR (eGFR) value [...] the following links into your internet browser. [email or web address]/DHnkdep [email or web address]/[email or web address] Specimen Anatomical Collection Method Collection Time Receive d Time (Source) Location / / Volume Laterality Blood specimen 04/04/2016 2:00 PM 016 2:07 (specimen) EDT PM EDT Resulting Agency Comment Spec In Lab Farzaneh Valera MD CHEMISTRY ORDERABLES Performing Organization Address City/State/[place] [address] documented in this encounter Visit Diagnoses Diagnosis Amyloidosis cutis Other amyloidosis Amyloidosis Amyloidosis, unspecified Antiphospholipid antibody syndrome Primary hypercoagulable state documented in this encounter Care Teams Policy Service Coordinator Relationship Specialty Start Date End Date Unknown PCP - General 04/04/16 09/18/16 None documented as of this encounter
--- OUTSIDE RECORDS SUMMARY | 2022-05-27 14:52 | XMS_ITS | Encounter Summary ---
:1960 Author Organization [facility] [place] [address] Care Team Providers Name Role Phone Daniel Hinkle MD Primary Care Provider Encounter Details Date Type Department Care Team Description 12/02/2016 Orders Only Rheumatology at [facility] Patricio Lowe, Dyspnea, unspecified type; [facility] Systemic lupus erythematosus, unspecifie d SLE type, unspecified organ [place] [address] RHEUMATOLOGY [place], [place] [address] Social History Tobacco Use Types [...] encounter Progress Notes Patricio Lowe MD - 12/02/2016 11:42 AM EDT Shortness of breath all day and coughing at night continue. NOBLE. Limited. Labs, PFTS no change. CXR negative as outpt Dr. Huang has suggested lung volumes she will see him 5.17. The curious thing was the previous lack of response to prednisone in these last few months, whereas it had been steroid responsive in the past Assess: Patient calling on a Monday. Not acute-- Dyspnea for over a year unknown etiology. Obstructive sx but not reflected in PFTs Hx of antiphosphospholipid antibodies but negative work up for PE. PFTs stable. Plan: 1. Arrange for Prednisone 40 mg/d for 3-4 days, starting today. Call Monday with update. 2. If not better, will arrange for CT chest with contrast, lung volumes, 6 minute walk time next week with Pulmonary consultation Patricio Lowe M.D. documented in this encounter Plan of Treatment Not on filedocumented as of this encounter Visit Diagnoses Diagnosis Dyspnea, unspecified type Systemic lupus erythematosus, unspecifie d SLE type, unspecified organ involvement status documented in this encounter Care Teams Geology Faculty Member Relationship Specialty Start Date End Date Daniel Hinkle MD PCP - General Family Medicine 09/19/16 [address] [place] [address] documented as of this encounter
--- OUTSIDE RECORDS SUMMARY | 2022-05-27 14:52 | XMS_ITS | Encounter Summary ---
:1960 [place] [address] Care Team Providers Name Role Phone Unknown Primary Care Provider Unavailable Encounter Details Date Type Department Care Team Description 05/07/2016 Hospital Encounter Radiology Library at [facility], Torres kirk I, Denise [facility] [place] [address] [place] [address] PULMONARY MEDICINE [phone] [place], [place] [address] (Wo rk) Social History Tobacco Use Types [...] 20 mg by 0 tablet mouth nightly. hydrochlorothiazide Take 2 tablets 60 tablet 11 04/25/2016 0 09/15/2016 (HYDRODIURIL) 25 mg by mouth daily. TabletIndications: Edema, unspecified type, Essential hypertension, hypertension with unspecified goal potassium chloride Take 1 tablet by 30 tablet 11 04/25/2016 11/25/2016 (K-DUR/KLOR-CON) 20 mEq Tab mouth daily. Sust.Rel. Particle/CrystalIndications: Edema, unspecified type, Essential hypertension, hypertension with unspecified goal sulfamethoxazole-trimethopri Take 1 tablet by 90 tablet 3 0 04/20/2016 11/24/2016 m (BACTRIM;SEPTRA) 400-80 mg mouth daily. TabletIndications: Acute recurrent pansinusitis, Need for pneumocystis prophylaxis triamcinolone (KENALOG) 0.1 To the upper 45 [...] on 60 tablet 11 12/29/201510/13 TabletIndications: Lung Tristan with involvement in systemic dinner. Increase lupus erythematosus by 1 T each week as tolerated up to 6 T/week hydroxychloroquine Take 1 tablet by 60 tablet 6 11/23/2015 02/24/2017 (PLAQUENIL) 200 mg mouth daily. TabletIndications: Lupus predniSONE (DELTASONE) 20 mg Take 4 tablets 80 tablet 1 11/25/2016 Tablet by mouth daily. acetaminophen (TYLENOL EXTRA Take by mouth as 0 0 01/13/2011 02/22/2017 STRENGTH) 500 mg tablet needed. Reported on 09/19/2016 documented as of this encounter Plan of Treatment Not on filedocumented as of this encounter Procedures Procedure Name Priority Date/Time Associated Diagnosis Comme nts FILM LIBRARY Routine 05/07/2016 12:00 AM Pain Results for this STORAGE ONLY DX EDT procedure ar e in ABDOMEN the results section. documented in this encounter Results Film Library- Storage only DX Abdomen (05/07/2016 12:00 AM EDT) Specimen (Source) Anatomical Location Collection Method / Collectio n Time Received Time / Laterality Volume Narrative AFSANEH CARRERA - 01/05/2016 11:52 AM EDT This exam is for storage only and is aut o-finalizing. Ke Oseguera MD IMRuchi FILM LIBRARY ORDERABLES Performing Organization Address City/State/ZIP Code Phon e Number DEBI DEBI [place], [place] documented in this encounter Visit Diagnoses Diagnosis Pain Generalized pain documented in this encounter Care Teams Hotel Houseman Relationship Specialty Start Date End Date Unknown PCP - General 04/04/16 09/18/16 None documented as of this encounter
--- OUTSIDE RECORDS SUMMARY | 2022-05-27 14:52 | XMS_ITS | Encounter Summary ---
:1960 [place] [address] Care Team Providers Name Role Phone Kunal Nesbitt MD Primary Care Provider Encounter Details Date Type Department Care Team Description 12/16/2015 Hospital Encounter Radiology Library at [facility], Denise Iraheta [facility] [place] [address] PULMONARY MEDICINE [phone] [place], [place] [address] (Wo rk) Social History Tobacco [...] Sig Dispensed Refills Start Date End Date levothyroxine (SYNTHROID) Take 125 mcg by 0 [...] 20 mg by 0 tablet mouth nightly. folic acid (FOLVITE) 1 mg Take 1 tablet by 90 tablet 3 11/1312/29/2015 TabletIndications: SLE mouth daily. (systemic lupus erythematosus) methotrexate 2.5 mg Start at 3 T 32 tablet 11 12/07/2015 TabletIndications: SLE taken on Monday (systemic lupus after food. erythematosus) Increase,as tolerated every week until taking 8 T (20 mg) every Monday sulfamethoxazole-trimethopri Take 1 tablet by 90 tablet 3 0 12/02/2015 04/20/2016 m (BACTRIM;SEPTRA) 400-80 mg mouth daily. TabletIndications: Acute recurrent pansinusitis, Need for pneumocystis prophylaxis hydroxychloroquine Take 1 tablet by 60 tablet 6 11/23/2015 02/24/2017 (PLAQUENIL) 200 mg mouth daily. TabletIndications: Lupus predniSONE (DELTASONE) 20 mg Take 4 tablets by 80 tablet 1 11/09/2015 11/25/2016 Tablet mouth daily. ibuprofen (ADVIL;MOTRIN) 800 Take 1 tablet by 30 tablet 12 0 05/03/2015 02/04/2016 mg Tablet mouth every 8 hours as needed for Pain. hydrochlorothiazide daily. 0 02/03/201504/25 (HYDRODIURIL) 25 mg Tablet acetaminophen (TYLENOL EXTRA Take by mouth as 0 0 01/13/2011 02/22/2017 STRENGTH) 500 mg tablet needed. Reported on 09/19/2016 documented as of this encounter Plan of Treatment Not on filedocumented as of this encounter Procedures Procedure Name Priority Date/Time Associated Diagnosis Comme nts FILM LIBRARY Routine 12/16/2015 12:00 AM Pain Results for this STORAGE ONLY DX EDT procedure ar e in CHEST the results section. documented in this encounter Results Film Library- Storage only DX Chest (12/16/2015 12:00 AM EDT) Specimen (Source) Anatomical Location Collection Method / Collectio n Time Received Time / Laterality Volume Narrative [facility] - 01/05/2016 11:41 AM EDT This exam is for storage only and is aut o-finalizing. Ke Oseguera MD IMG FILM LIBRARY ORDERABLES Performing Organization Address City/State/ZIP Code Phon e Number [place], [place] documented in this encounter Visit Diagnoses Diagnosis Pain Generalized pain documented in this encounter Care Teams Community Organization Aide Relationship Specialty Start Date End Date Kunal Nesbitt MD PCP - General Family Medicine 06/09/15 04/03/16 documented as of this encounter
--- OUTSIDE RECORDS SUMMARY | 2022-05-27 14:52 | XMS_ITS | Encounter Summary ---
:1960 Author Organization [facility] [place] [address] Care Team Providers Name Role Phone Daniel Hinkle MD Primary Care Provider Encounter Details Date Type Department Care Team Description 09/20/2016 Orders Only Rheumatology at [facility] [place] Patricio Lowe, Systemic lupus [facility] erythematosus, [facility] unspecified SLE type, [place] [address] unspecified organ [phone] RHEUMATOLOGY DEP T. involvement status [place], [place] [address] Social History Tobacco Use Types [...] on filedocumented as of this encounter Results Pulmonary Function Testing (11/28/2016 7:57 AM EDT) Narrative Fracisco García MD - 11/28/2016 7:57 A M EDT Fracisco García MD ? 11/28/2016 ??7:57 AM Spirometry: FVC is decreased FEV1 is decreased FEV1 / FVC ratio is normal Diffusion: DLCO is normal Lung Volumes: Not Done Oxygen Saturation: Oxygen saturation 98% on RA at rest FENO: Not Done Interpretation: ?? Spirometry suggests mild restriction ?? Lung volumes could confirm or refute restriction ?? Normal diffusing capacity ?? Oxygen saturation normal on room air Fracisco García MD Patricio Lowe MD PFT ORDERABLES documented in this encounter Visit Diagnoses Diagnosis Systemic lupus erythematosus, unspecifie d SLE type, unspecified organ involvement status Systemic lupus erythematosus, unspecifie d SLE type, unspecified organ involvement status documented in this encounter Care Teams Manufacturer Representative Relationship Specialty Start Date End Date Daniel Hinkle MD PCP - General Family Medicine 09/19/16 [place] [address] documented as of this encounter
--- OUTSIDE RECORDS SUMMARY | 2022-05-27 14:52 | XMS_ITS | Encounter Summary ---
:1960 Author Organization [facility] [address] Care Team Providers Name Role Phone Daniel Hinkle MD Primary Care Provider Encounter Details Date Type Department Care Team Description 12/15/2016 Telephone Rheumatology at [facility] [place] Kristy Asher, [place] [address] Social History Tobacco Use Types Packs/Day [...] Telephone Encounter - Kristy Asher RN - 12/15/2016 3:46 PM EDT Francie calls about appointment with Dr. Lowe and Dr. Huang. She would like to have on same day. RTC and asked her to call back to schedule with [place]. documented in this encounter Plan of Treatment Not on filedocumented as of this encounter Visit Diagnoses Not on filedocumented in this encounter Care Teams Services Mgr Relationship Specialty Start Date End Date Daniel Hinkle MD PCP - General Family Medicine 09/19/16 [place] [address] documented as of this encounter
--- OUTSIDE RECORDS SUMMARY | 2022-05-27 14:52 | XMS_ITS | Encounter Summary ---
:1960 Author Organization [facility] Address [address] [place] [address] Care Team Providers Name Role Phone Daniel Hinkle MD Primary Care Provider Encounter Details Date Type Department Care Team Description 11/25/2016 Hospital Encounter Pulmonology at [facility] [place] Systemic lupus [facility] erythemat osus, Becky unspecified SLE type, [place] [address] unspecified organ [phone] [address] sta tus Social History Tobacco Use Types Packs/Day Years [...] 20 mg by 0 tablet mouth nightly. sulfamethoxazole-trimethopri Take 1 tablet by 90 tablet 1 0 11/24/2016 01/30/2017 m (BACTRIM;SEPTRA) 400-80 mg mouth daily. TabletIndications: Acute recurrent pansinusitis, Need for pneumocystis prophylaxis predniSONE (DELTASONE) 1 mg Take 4 tablets 360 tablet 3 10/1301/30/2017 Tablet by mouth daily. methotrexate 2.5 mg Take 4 tablets 36 tablet 3 11/08/2016 0 11/27/2017 TabletIndications: Lung by mouth once a involvement in systemic week. lupus erythematosus hydroCHLOROthiazide Take 2 tablets 60 tablet 11 09/15/2016 0 09/15/2017 (HYDRODIURIL) 25 mg by mouth daily. TabletIndications: Edema, unspecified type hydroxychloroquine Take 1 tablet by 60 tablet 6 11/23/2015 02/24/2017 (PLAQUENIL) 200 mg mouth daily. TabletIndications: Lupus acetaminophen (TYLENOL EXTRA Take by mouth as 0 0 01/13/2011 02/22/2017 STRENGTH) 500 mg tablet needed. Reported on 09/19/2016 documented as of this encounter Procedure Notes Fracisco García MD - 11/25/2016 11:59 PM EDTAssociated Order(s): PULMONARY FUNCTION TEST Spirometry: FVC is decreased FEV1 is decreased FEV1 / FVC ratio is normal Diffusion: DLCO is normal Lung Volumes: Not Done Oxygen Saturation: Oxygen saturation 98% on RA at rest FENO: Not Done Interpretation: ?? Spirometry suggests mild restriction ?? Lung volumes could confirm or refute restriction ?? Normal diffusing capacity ?? Oxygen saturation normal on room air Fracisco García MD documented in this encounter Plan of Treatment Not on filedocumented as of this encounter Procedures Procedure Name Priority Date/Time Associated Diagnosis Comme nts PULMONARY FUNCTION Routine 11/28/2016 7:57 AM Systemic lupus R esults for this TEST EDT erythematosus, procedure are in unspecified SLE the results type, unspecified section. organ involvement status documented in this encounter Results Pulmonary Function Testing (11/28/2016 [...] status documented in this encounter Care Teams Make Up Man Relationship Specialty Start Date End Date Daniel Hinkle MD PCP - General Family Medicine 09/19/16 [place] [address] documented as of this encounter
--- OUTSIDE RECORDS SUMMARY | 2022-05-27 14:52 | XMS_ITS | Encounter Summary ---
:1960 Author Organization [facility] [place] [address] Care Team Providers Name Role Phone Daniel Hinkle MD Primary Care Provider Reason for Visit Reason Onset Date Comments Other 12/02/2016 Shortness of Breath Encounter Details Date Type Department Care Team Description 12/02/2016 Telephone Rheumatology at [facility] [place] Kristy Asher, Other ([facility] Marquis kingsley RN Breath) [place] [address] Social History Tobacco Use Types Packs/Day [...] Telephone Encounter - Kristy Asher RN - 12/02/2016 9:13 AM EDT Francie calls in today and states she is still not feeling up to Par. RTC to Francie and She reports SOB is still present and she has a non-productive. She is feeling veryfatigue. Has held MTX for 1 dose last Monday and wants to know if she should resume MTX. She would like to know lab results and PFT results. I reviewed letter that Dr. Lowe sent on 11/28/16 as she has not received it yet. I advised if her SOB is that worrisome she should contact her PCP for evaluation. documented in this encounter Plan of Treatment Not on filedocumented as of this encounter Visit Diagnoses Not on filedocumented in this encounter Care Teams Tariff Expert Relationship Specialty Start Date End Date Daniel Hinkle MD PCP - General Family Medicine 09/19/16 [place] [address] documented as of this encounter
--- OUTSIDE RECORDS SUMMARY | 2022-05-27 14:52 | XMS_ITS | Encounter Summary ---
:1960 Author Organization [facility] Address [address] [place] [address] Care Team Providers Name Role Phone Unknown Primary Care Provider Unavailable Encounter Details Date Type Department Care Team Description 04/25/2016 Office Visit Rheumatology at [facility] Patricio Lowe, Lupus; [facility] MD Edema, unspecified type; [facility] Essential hypertension, hype [place] [address] CENTER [phone] RHEUMATOLOGY DEPT. [place], [place] [address] Social History Tobacco Use Types [...] Sign Reading Time Taken Comments Blood Pressure 158/86 04/25/2016 11:54 AM EDT Pulse 69 04/25/2016 11:54 AM EDT Temperature 36.4 ??C (97.5 ??F) 04/25/2016 11:54 AM EDT Respiratory Rate - - Oxygen Saturation 99% 04/25/2016 11:54 AM EDT Inhaled Oxygen Concentration - - Weight 96.6 kg (213 lb) 04/25/2016 11:54 AM EDT Height 165.1 cm (5' 5) 04/25/2016 11:54 AM EDT Body Mass Index 35.45 04/25/2016 11:54 AM EDT documented in this encounter Patient Instructions Patient InstructionsPatricio Lowe MD - 04/25/2016 12:00 PM EDT 1. Labs today 2. Increase HCTZ to 50 mg/d with potassium supplementation once daily 3. Taper daily prednisone by 1 mg every 4 weeks, 9 mg starting tomorrow 4. Return 3 months 5. Get dental issues resolved! documented in this encounter Progress Notes Patricio Lowe MD - 04/25/2016 12:00 PM EDT Blood pressure 158/86, pulse 69, temperature 36.4 ??C (97.5 ??F), temperature source Oral, height 165.1 cm (5' 5), weight 96.6 kg (213 lb), SpO2 99 %. Patricio Lowe MD - 04/25/2016 12:00 PM EDT Subjective: Patient ID: Francie Yusuf [...] shortness of breath prompting an admission to [facility] in October 2015 where patchy [...] and we advanced her MTX Interval History: When last seen in January 2016, she was doing well. PFTS wereFEV1 78%, DLCO 82%, unchanged from showed DLCO 75%, FEV1 of 1.86 when she was having little or no breathing symptoms. Summary of her history is as follows 1. Dyspnea: Now on Prednisone 10 mg/d down 18 mg/d. Using inhalers as well. Breathing stable. A goodsummer 2. New lower denture ill fitting with tissue hyperplasia, has seen ENT. 3. No change in joint pain. MTX 4 T a week, no side effects 4. Right anterior chest pain; severe approximately 6 times, usually occurs at nigth 5. Episode of diverticulitis May 2015 with LLQ pain/anemia: No recurrences 6. 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 No change 7. Dry eyes: lacrimal duct plugging has helped. 8. New leg edema this last few weeks. Review of Systems Constitutional: No fevers, chills, [...] CXR and echocardiogram. She was transferred to [facility] s/p IR guided drainage of [...] NAD. She has gained weight Blood pressure 158/86, pulse 69, temperature 36.4 ??C (97.5 ??F), temperature source Oral, height 165.1 cm (5' 5), weight 96.6 kg (213 lb), SpO2 99 %. Skin exam: No [...] for marichuy OA. No active synovitis Extremities: Edema in LE is much more extensive than I remember 2+ Assessment and Plan: Lupus pneumonitis responding to high dose steroids, now confounded by intolerance and fear of various medications. It is hard to tell if AZA/MMF were that poorly tolerated. Prednisone tapering successful thus far. Right sided chest pain sounds more like reflux 1. Labs today, including UA 2. Continue taper of Prednisone, try increasing it to 1 mg dose reduction every 4 weeks 3. Tolerating MTX 10 mg/week, taken on Fridays at dinner 4. Cervical radiculopathy: follow 5. Increase HCTZ to 50 mg/d with KCL 20 meq daily 6. RTC 3 months or prn Level 4 follow up Patricio Lowe M.D. documented in this encounter Miscellaneous Notes Addendum Note - Reji Browning - 04/25/2016 12:59 PM EDT Addended by: REJI BROWNING on: 04/25/2016 12:59 PM Modules accepted: Orders documented in this encounter Plan of Treatment Scheduled Orders Name Type Priority Associated Diagnoses Order S chedule POCT urine dipstick Point of Care Routine Lupus Ordered: Testing Edema, unspecified 6 type documented as of this encounter Procedures Procedure Name Priority Date/Time Associated Comments Diagnosis HEMOGRAM Routine 04/25/2016 1:06 PM Lupus Results for this EDT Edema, unspecified procedure are in type the results section. DIFFERENTIAL, Routine 04/25/2016 1:06 PM Lupus Results for this AUTOMATED EDT Edema, unspecified procedure are in type the results section. CBC (WITH DIFF) Routine 04/25/2016 1:06 PM Lupus EDT Edema, unspecified type CRP, CARDIAC RISK (HS Routine 04/25/2016 1:06 PM Lupus Results for this CRP) EDT Edema, unspecified procedure are in type the results section. COMPREHENSIVE Routine 04/25/2016 1:06 PM Lupus Results for this METABOLIC PANEL EDT Edema, unspecified proced ure are in (NON-FASTING) type the results section. documented in this encounter Results (ABNORMAL) Differential, Automated (04/25/2016 1:06 PM EDT) [facility] Method Time Signature Neutrophils % 86.7 % [facility] Neutr Abs (ANC) 8.90 (H) 1.70 - [facility] 6.10 [facility] x10(3)/[facility] LABORATORY Lymphocytes % 7.1 % [facility] Lymphocytes Abs 0.7 (L) 0.9 - 3.2 [facility] x10(3)/[facility] LABORATORY Monocytes % 4.5 % [facility] Monocyte Abs 0.5 0.3 - 0.9 [facility] x10(3)/[facility] LABORATORY Eosinophils % 0.7 % [facility] Eosinophils Abs 0.1 0.0 - 0.4 [facility] x10(3)/[facility] LABORATORY Basophils % 0.3 % [facility] Basophils Abs 0.0 0.0 - 0.1 [facility] x10(3)/[facility] LABORATORY Immature Gran % 0.70 % [facility] Comment: Immature granulocytes(IG's)percentage an d absolute count will include metamyelocytes, myelocytes, and promyelo cytes. Blood smears from CBCs yielding IG's will be scanned manually for concor dance. If this scan disagrees with the automated IG or if promyelocytes are not ed, a manual differential will be performed. Cheryl Gran Abs 0.07 (H) 0.00 - 0.04 x10(3)/[facility] LABORATORY Specimen Anatomical Collection Method Collection Time Receive d Time (Source) Location / / Volume Laterality Blood specimen 04/25/2016 1:06 PM 016 1:17 (specimen) EDT PM EDT Resulting Agency Comment Spec In Lab Patricio Lowe MD HEMATOLOGY ORDERABLES Performing Organization Address City/State/ZIP [place] [address] (ABNORMAL) Hemogram (04/25/2016 1:06 PM EDT) Analysis Performed At Patho logist Time Signature WBC 10.3 (H) 4.0 - 9.5 [facility] x10(3)/[facility] LABORATORY RBC 4.83 4.00 - [place] [facility] 5.21 [facility] x10(6)/[facility] LABORATORY Hemoglobin 13.8 11.7 - [place] 15.5 gm/dL [facility] Hematocrit 41.2 35.7 - [facility] 45.8 % [facility] MCV 85.3 82.6 - [facility] 94.4 [facility] LABORATORY MCH 28.6 27.1 - [facility] 32.0 pg [facility] MCHC 33.5 31.7 - [place] 35.0 gm/dL [facility] Platelets 277 145 - 357 [facility] x10(3)/[facility] LABORATORY RDWSD 41.2 37.0 - [place] 46.0 [facility] LABORATORY RDWCV 13.2 11.5 - [facility] 14.1 % [facility] MPV 9.5 7.6 - 12.9 [facility] LABORATORY nRBC % Auto 0.0 % [facility] nRBC Abs Auto 0.000 0.000 - [facility] 0.000 [facility] x10(3)/[facility] LABORATORY Specimen Anatomical Collection Method Collection Time Receive d Time (Source) Location / / Volume Laterality Blood specimen 04/25/2016 1:06 PM 016 1:17 (specimen) EDT PM EDT Resulting Agency Comment Spec In Lab Patricio Lowe MD HEMATOLOGY ORDERABLES Performing Organization Address City/State/ZIP [place] [address] High Sensitivity CRP (04/25/2016 1:06 PM EDT) athologist Signature CRP High Sens 3.5 mg/L [facility] Comment: Interpretations: [...] Location / / Volume Laterality Blood specimen 04/25/2016 1:06 PM 016 1:17 (specimen) EDT PM EDT Resulting Agency Comment Spec In Lab Patricio Lowe MD CHEMISTRY ORDERABLES Performing Organization Address City/State/[place] [address] (ABNORMAL) Comprehensive metabolic panel (non-fasting) (04/25/2016 1:06 PM EDT) athologist Signature Glucose Lvl 107 65 - 199 [facility] mg/dL [facility] Comment: Diabetes: >=200 mg/dL plus symp toms BUN 16 8 - 18 mg/dL [facility] Creatinine 0.89 0.70 - 1.20 mg/dL [facility] Comment: Please note that the pediatric reference intervals supplied above were not validated at [facility]. Results from pediatri c patients should be interpreted in conjunction to the patient's age, height and muscle mass. Sodium 143 135 - 145 mmol/L [facility] Potassium 3.9 3.5 - 5.0 mmol/L [facility] Comment: Please note: ??Patients with WBC >100,00 0 may have falsely elevated Potassium levels. ??For accurate Potassium quantif ication in these patients send serum separator tube (gold top) for subsequent determinations. ??Contact the Clinical Chemistry Laboratory if there are any qu estions. Chloride 98 98 - 107 mmol/L [facility] CO2 30 22 - 31 mmol/L [facility] Anion Gap 15 5 - 15 mmol/L [facility] Calcium 8.4 (L) 8.5 - 10.5 mg/dL [facility] Total Protein 6.4 6.1 - 8.0 gm/dL [facility] Albumin 4.3 3.2 - 5.2 gm/dL [facility] AST 25 0 - 30 unit/L [facility] ALT 34 (H) 0 - 30 unit/L [facility] Alk Phos 60 40 - 104 unit/L [facility] Total Bilirubin 0.3 0.2 - 1.3 mg/dL [facility] Bili, Direct 0.1 0.0 - 0.3 mg/dL [facility] Estimated GFR >60 >=60 [facility] Comment: This estimated GFR (eGFR) [...] the following links into your internet browser. [email or web address] Specimen Anatomical Collection Method Collection Time Receive d Time (Source) Location / / Volume Laterality Blood specimen 04/25/2016 1:06 PM 016 1:17 (specimen) EDT PM EDT Resulting Agency Comment Spec In Lab Patricio Lowe MD CHEMISTRY ORDERABLES Performing Organization Address City/State/ZIP [place] [address] documented in this encounter Visit Diagnoses Diagnosis Lupus Systemic lupus erythematosus Edema, unspecified type Essential hypertension, hypertension wit h unspecified goal documented in this encounter Care Teams Career Portals Teacher Relationship Specialty Start Date End Date Unknown PCP - General 04/04/16 09/18/16 None documented as of this encounter
--- OUTSIDE RECORDS SUMMARY | 2022-05-27 14:52 | XMS_ITS | Encounter Summary ---
:1960 Author Organization [facility] [place] [address] Care Team Providers Name Role Phone Daniel Hinkle MD Primary Care Provider Encounter Details Date Type Department Care Team Description 09/19/2016 Office Visit Rheumatology at [facility] Patricio Lowe, Systemic lupus erythematosus , unspecified SLE type, unspecified organ involvement status; [facility] MD NOBLE (dyspnea on exertion) [place] [address] CENTER [phone] RHEUMATOLOGY DEPT. [place], [place] [address] Social History Tobacco Use Types [...] Sign Reading Time Taken Comments Blood Pressure 143/73 09/19/2016 2:08 PM EST Pulse 70 09/19/2016 2:08 PM EST Temperature 36.3 ??C (97.4 ??F) 09/19/2016 2:08 PM EST Respiratory Rate - - Oxygen Saturation 97% 09/19/2016 2:08 PM EST Inhaled Oxygen Concentration - - Weight 94.3 kg (208 lb) 09/19/2016 2:08 PM EST Height 165.1 cm (5' 5) 09/19/2016 2:08 PM EST Body Mass Index 34.61 09/19/2016 2:08 PM EST documented in this encounter Patient Instructions Patient InstructionsPatricio Lowe MD - 09/19/2016 2:30 PM EST 1. Urine dipstick in clinic 2. Labs 3. Taper prednisone 1 mg/d/month 4. Use baking soda 1/2 tsp and water when has burping sensation 5. Return in 3 months with Pulmonary Function Tests documented in this encounter Progress Notes Patricio Lowe MD - 09/19/2016 2:30 PM EST Subjective: Patient ID: Francie Yusuf [...] shortness of breath prompting an admission to [facility] in October 2015 where patchy subsegmental opacities [...] MTX Interval History: When last seen in April 2016, she was doing well on 10 mg/d of Prednisone and MTX 10 mg/week. PFTS wereFEV1 78%, DLCO 82%, unchanged from showed DLCO 75%, FEV1 of 1.86 when she was having little or no breathing symptoms. A slow taper of the prednisone was planned. She is now on Prednisone 5 mg/d without any obvious worsening. Summary of her history is as follows 1. Dyspnea: Now on Prednisone 5 mg. Using inhalers as well. Breathing stable. Some dyspnea 2. New lower denture ill fitting with tissue hyperplasia: Not resolve 3. No change in joint pain. MTX 4 T a week, no side effects. No limitations 4. Right anterior chest pain; severe approximately 6 times, usually occurs at night 5. Episode of diverticulitis May 2015 with LLQ pain/anemia: No recurrences 6. 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 No change 7. Dry eyes: lacrimal duct plugging has helped. A lot better, not always using Restasis 8. Leg edema: not really changed. Worse at end of infedtion 9. About to be evaluated by Cardiology for chronic left sided chest pain without resolution. Not worsening as coming down on steroids Review of Systems Constitutional: No fevers, chills, malaise episodes seems less Skin: no rashes no Raynauds HEENT: ++ [...] CXR and echocardiogram. She was transferred to [facility] s/p IR guided drainage of 70cc of [...] NAD. She has gained weight Blood pressure 143/73, pulse 70, temperature 36.3 ??C (97.4 ??F), temperature source Oral, height 165.1 cm (5' 5), weight 94.3 kg (208 lb), SpO2 97 %. Skin exam: No UE bruising . No telangectasias. Brownish elevated plaques on LE, largest is 3 cm across, most are <0.5 cm. These are darkening according to the patient. Normal nailfold exam. No digital ulcers, cuticular overgrowth. There is 1+lower extremity swelling. HEENT: moist mucus membranes, decreased salivary pooling. Mild submandibular tenderness, no parotidenlargement. Neck supple JVD<5 cm. no bruits. Chest: I think she is moving air very well. No obvious wheezing. No longer diffuse sternochondral tenderness, no splinting Cor: RR no rub. JOHAN 2/6 loudest at [facility] Joint exam UE joint exam: normal except for marichuy OA in OA. No active synovitis Extremities: Edema in LE is much less only 1+ Assessment and Plan: Lupus pneumonitis with some improvement on MTX and this has allowed Prednisone tapering. Some curious burping that did not respond to PPI. Lots of symptoms (left sided chest and midline sternal pain that sound like could be esophageal. 1. Labs today, including UA 2. Continue taper of Prednisone 1 mg every month 3. Tolerating MTX 10 mg/week, taken on Fridays at dinner 4. RTC 3 months or prn with PFTS Level 4 follow up Patricio Lowe M.D. Urine dipstick. Trace leuk, trace protein, normal all else including no blood documented in this encounter Miscellaneous Notes Addendum Note - Idalia Dailey - 09/19/2016 3:32 PM EST Addended by: IDALIA DAILEY on: 09/19/2016 03:32 PM Modules accepted: Orders documented in this encounter Plan of Treatment Scheduled Orders Name Type Priority Associated Diagnoses Order S chedule POCT urine dipstick Point of Care Routine Systemic Lupus Order ed: Testing Erythematosus, 09/19/2016 Unspecified Sle Type, Unspecified Organ Involvement Status documented as of this encounter Procedures Procedure Name Priority Date/Time Associated Comments Diagnosis HEMOGRAM Routine 09/19/2016 3:36 PM Systemic lupus Results for this EST erythematosus, procedure are in unspecified SLE the results type, unspecified section. organ involvement status DIFFERENTIAL, Routine 09/19/2016 3:36 PM Systemic lupus Result s for this AUTOMATED EST erythematosus, procedure are in unspecified SLE the results type, unspecified section. organ involvement status SEDIMENTATION RATE Routine 09/19/2016 3:36 PM Systemic lupus R esults for this EST erythematosus, procedure are in unspecified SLE the results type, unspecified section. organ involvement status CBC (WITH DIFF) Routine 09/19/2016 3:36 PM Systemic lupus EST erythematosus, unspecified SLE type, unspecified organ involvement status COMPREHENSIVE Routine 09/19/2016 3:36 PM Systemic lupus Result s for this METABOLIC PANEL EST erythematosus, procedure are in (NON-FASTING) unspecified SLE the results type, unspecified section. organ involvement status documented in this encounter Results Differential, Automated (09/19/2016 3:36 PM EST) athologist Signature Neutrophils % 72.9 % [facility] Neutr Abs (ANC) 5.80 1.70 - [facility] 6.10 [facility] x10(3)/[facility] LABORATORY Lymphocytes % 14.5 % [facility] Lymphocytes Abs 1.2 0.9 - 3.2 [facility] x10(3)/[facility] LABORATORY Monocytes % 9.7 % [facility] Monocyte Abs 0.8 0.3 - 0.9 [facility] x10(3)/[facility] LABORATORY Eosinophils % 2.1 % [facility] Eosinophils Abs 0.2 0.0 - 0.4 [facility] x10(3)/[facility] LABORATORY Basophils % 0.5 % [facility] Basophils Abs 0.0 0.0 - 0.1 [facility] x10(3)/[facility] LABORATORY Immature Gran % 0.30 % [facility] Comment: Immature granulocytes(IG's)percentage an d absolute count will include metamyelocytes, myelocytes, and promyelo cytes. Blood smears from CBCs yielding IG's will be scanned manually for concor dance. If this scan disagrees with the automated IG or if promyelocytes are not ed, a manual differential will be performed. Cheryl Gran Abs 0.02 0.00 - 0.04 x10(3)/[facility] MAR Y [facility] LABORATORY Specimen Anatomical Collection Method Collection Time Receive d Time (Source) Location / / Volume Laterality Blood specimen 09/19/2016 3:36 PM 017 3:42 (specimen) EST PM EST Resulting Agency Comment Spec In Lab Patricio Lowe MD HEMATOLOGY ORDERABLES Performing Organization Address City/State/[place] [address] Hemogram (09/19/2016 3:36 PM EST) P athologist Signature WBC 8.0 4.0 - 9.5 [facility] LABORATORY RBC 4.88 4.00 - [place] JIGAR 5.21 [facility] x10(6)/[facility] LABORATORY Hemoglobin 14.1 11.7 - [facility] 15.5 gm/dL [facility] Hematocrit 40.6 35.7 - [facility] 45.8 % [facility] MCV 83.2 82.6 - [facility] 94.4 [facility] LABORATORY MCH 28.9 27.1 - [facility] 32.0 pg [facility] MCHC 34.7 31.7 - [place] 35.0 gm/dL [facility] Platelets 268 145 - 357 [facility] x10(3)/[facility] LABORATORY RDWSD 41.7 37.0 - [facility] JIGAR 46.0 [facility] LABORATORY RDWCV 14.0 11.5 - [place] 14.1 % [facility] MPV 9.4 7.6 - 12.9 [facility] LABORATORY nRBC % Auto 0.0 % [facility] nRBC Abs Auto 0.000 0.000 - [place] 0.000 [facility] x10(3)/[facility] LABORATORY Specimen Anatomical Collection Method Collection Time Receive d Time (Source) Location / / Volume Laterality Blood specimen 09/19/2016 3:36 PM 017 3:42 (specimen) EST PM EST Resulting Agency Comment Spec In Lab Patricio Lowe MD HEMATOLOGY ORDERABLES Performing Organization Address City/State/[place] [address] (ABNORMAL) Comprehensive metabolic panel (non-fasting) (09/19/2016 3:36 PM EST) P athologist Signature Glucose Lvl 70 65 - 199 [facility] mg/dL [facility] Comment: Diabetes: >=200 mg/dL plus symp toms BUN 17 8 - 18 mg/dL [facility] Creatinine 1.08 0.70 - 1.20 mg/dL [facility] Comment: Please note that the pediatric reference intervals supplied above were not validated at [facility]. Results from pediatri c patients should be interpreted in conjunction to the patient's age, height and muscle mass. Sodium 145 135 - 145 mmol/L [facility] Potassium 3.4 (L) 3.5 - 5.0 mmol/L [facility] Comment: Please note: ??Patients with WBC >100,00 0 may have falsely elevated Potassium levels. ??For accurate Potassium quantif ication in these patients send serum separator tube (gold top) for subsequent determinations. ??Contact the Clinical Chemistry Laboratory if there are any qu estions. Chloride 102 98 - 107 mmol/L [facility] CO2 31 22 - 31 mmol/L [facility] Anion Gap 12 5 - 15 mmol/L [facility] Calcium 8.2 (L) 8.5 - 10.5 mg/dL [facility] Total Protein 6.5 6.1 - 8.0 gm/dL [facility] Albumin 4.3 3.2 - 5.2 gm/dL [facility] AST 31 (H) 0 - 30 unit/L [facility] ALT 35 (H) 0 - 30 unit/L [facility] Alk Phos 74 40 - 104 unit/L [facility] Total Bilirubin 0.3 0.2 - 1.3 mg/dL [facility] Bili, Direct 0.1 0.0 - 0.3 mg/dL [facility] Estimated GFR 53 (L) >=60 [facility] Comment: This estimated GFR (eGFR) [...] the following links into your internet browser. [email or web address] [email or web address] Specimen Anatomical Collection Method Collection Time Receive d Time (Source) Location / / Volume Laterality Blood specimen 09/19/2016 3:36 PM 017 3:42 (specimen) EST PM EST Resulting Agency Comment Spec In Lab Patricio Lowe MD CHEMISTRY ORDERABLES Performing Organization Address City/[facility]/[place]IP [place] [address] Sedimentation rate (09/19/2016 3:36 PM EST) P athologist Signature Sed Rate 8 0 - 20 [facility] mm/hr [facility] Specimen Anatomical Collection Method Collection Time Receive d Time (Source) Location / / Volume Laterality Blood specimen 09/19/2016 3:36 PM 017 3:42 (specimen) EST PM EST Resulting Agency Comment Spec In Lab Patricio Lowe MD HEMATOLOGY ORDERABLES Performing Organization Address City/[facility]/ZIP [facility] [place] [address] documented in this encounter Visit Diagnoses Diagnosis Systemic lupus erythematosus, unspecifie d SLE type, unspecified organ involvement status NOBLE (dyspnea on exertion) Other dyspnea and respiratory abnormalit y documented in this encounter Care Teams Cone Winder Relationship Specialty Start Date End Date Daniel Hinkle MD PCP - General Family Medicine 09/19/16 [place] [phone] documented as of this encounter
--- OUTSIDE RECORDS SUMMARY | 2022-05-27 14:52 | XMS_ITS | Encounter Summary ---
:1960 Author Organization [facility] [place] [address] Care Team Providers Name Role Phone Daniel Hinkle MD Primary Care Provider Reason for Visit Reason Onset Date Comments Medication Refill 11/24/2016 Encounter Details Date Type Department Care Team Description 11/24/2016 Refill [place]umatology at [facility] Linda Bailey Acute recurrent pansinusitis ; [facility] Marquis Oseguera [place] Need for pneumocystis pro[place] [address] Social History Tobacco Use Types Packs/Day [...] as of this encounter Visit Diagnoses Diagnosis Acute recurrent pansinusitis Other acute sinusitis Need for pneumocystis prophylaxis Need for other prophylactic chemotherapy documented in this encounter Care Teams Lathe Mechanic Relationship Specialty Start Date End Date Daniel Hinkle MD PCP - General Family Medicine 09/19/16 [address] [place] [address] documented as of this encounter
--- OUTSIDE RECORDS SUMMARY | 2022-05-27 14:52 | XMS_ITS | Encounter Summary ---
:1960 Author Organization [facility] [place] [address] Care Team Providers Name Role Phone Unknown Primary Care Provider Unavailable Reason for Visit Reason Onset Date Comments Medication Refill 09/15/2016 Encounter Details Date Type Department Care Team Description 09/15/2016 Refill Rheumatology at [facility] Linda Bailey I, [place]ema, [place] [address] Social History Tobacco Use Types Packs/Day [...] as of this encounter Visit Diagnoses Diagnosis Edema, unspecified type documented in this encounter Care Teams Row Boss Relationship Specialty Start Date End Date Unknown PCP - General 04/04/16 09/18/16 None documented as of this encounter
--- OUTSIDE RECORDS SUMMARY | 2022-05-27 14:52 | XMS_ITS | Encounter Summary ---
:1960 Author Organization [facility] [place] [address] Care Team Providers Name Role Phone Kunal Nesbitt MD Primary Care Provider Reason for Visit Reason Onset Date Comments Medication Reaction 12/03/2015 Encounter Details Date Type Department Care Team Description 12/03/2015 Telephone Rheumatology at [facility] Kristy Asher, computer [place] [address] Social History Tobacco Use Types Packs/Day [...] Telephone Encounter - Kristy Asher RN - 12/03/2015 3:02 PM EDT Tell her to take 1/2 tablet once a day with food and see if she tolerates it for 2 days ? If she does, have her then increase to 1/2 t twice a day, again with food for 2 days. ? She should then advance her dose by 1/2 tablet every 2 days until she gets to the targeted dose of 1 g twice a day ? Tell her that food makes a big difference. ? Patricio I spoke with Francie and she will take Cellcept with food as indicated above. She will call me on Monday to let me know how she is doing. We will review the taper again at that time as long as she is tolerating. Telephone Encounter - Kristy Asher RN - 12/03/2015 2:18 PM EDT RTC to Francie and she states she has taken 2 pills yesterday and today and she started with NVD lastnight about midnight. I asked her to HOLD Cellcept and I would forward her message to Dr. Lowe for his recommendations. Telephone Encounter - Kristy Asher RN - 12/03/2015 1:14 PM EDT Francie calls today and reports that she started Cellcept and she has been having NVD ever since. Shewould like to know if Dr. Lowe would like her to continue with the medication. RTC to Francie and left a message for her to call back to discuss further. documented in this encounter Plan of Treatment Not on filedocumented as of this encounter Visit Diagnoses Not on filedocumented in this encounter Care Teams Generation Engineer Relationship Specialty Start Date End Date Kunal Nesbitt MD PCP - General Family Medicine 06/09/15 04/03/16 documented as of this encounter
--- OUTSIDE RECORDS SUMMARY | 2022-05-27 14:52 | XMS_ITS | Encounter Summary ---
:1960 Author Organization [facility] [place] [address] Care Team Providers Name Role Phone Kunal Nesbitt MD Primary Care Provider Encounter Details Date Type Department Care Team Description 12/07/2015 Orders Only Rheumatology at [facility] Patricio Lowe, SLE (systemic lupus [facility] MD erythematosus) [place] [address] RHEUMATOLOGY [place], [place] [address] Social History Tobacco Use Types [...] as of this encounter Visit Diagnoses Diagnosis SLE (systemic lupus erythematosus) Systemic lupus erythematosus documented in this encounter Care Teams Sap Architect Relationship Specialty Start Date End Date Kunal Nesbitt MD PCP - General Family Medicine 06/09/15 04/03/16 documented as of this encounter
--- OUTSIDE RECORDS SUMMARY | 2022-05-27 14:52 | XMS_ITS | Encounter Summary ---
:1960 Author Organization [facility] Address [facility] [place] [address] Care Team Providers Name Role Phone Kunal Nesbitt MD Primary Care Provider Reason for Visit Reason Onset Date Comments Other 01/01/2016 Medication Question Encounter Details Date Type Department Care Team Description 01/01/2016 Telephone Rheumatology at [facility] Kristy Asher, Other (Medication [facility] Marquis kingsley RN Question) [place] [address] Social History Tobacco Use Types Packs/Day Years [...] Telephone Encounter - Kristy Asher RN - 01/01/2016 8:23 AM EDT Francie calls today and wants to know if she should take Prednisone with Methotrexate. I advised thatshe should continue prednisone and hold Bactrim as advised. documented in this encounter Plan of Treatment Not on filedocumented as of this encounter Visit Diagnoses Not on filedocumented in this encounter Care Teams Hemming And Tacking Machine Operator Relationship Specialty Start Date End Date Kunal Nesbitt MD PCP - General Family Medicine 06/09/15 04/03/16 documented as of this encounter
--- OUTSIDE RECORDS SUMMARY | 2022-05-27 14:52 | XMS_ITS | Encounter Summary ---
:1960 Author Organization [facility] [place] [address] Care Team Providers Name Role Phone Daniel Hinkle MD Primary Care Provider Reason for Visit Reason Onset Date Comments Other 11/21/2016 Encounter Details Date Type Department Care Team Description 11/21/2016 Telephone Rheumatology at [facility] Kristy [place]her, [place] [address] Social History Tobacco Use Types Packs/Day [...] Telephone Encounter - Kristy Asher RN - 11/22/2016 8:15 AM EDT Let's plan on having her come in Monday 4.15 at 9am. Francie will come in on Monday11/25/16 @ 0900, Radha will schedule. Telephone Encounter - Kristy Asher RN - 11/21/2016 4:06 PM EDT All of these are fine. ??This sounds like a reasonable plan. ??Let's see her next Monday at 4pm ??OrMonday if she does not improve. Patricio Left above message for Francie. Telephone Encounter - Kristy Asher RN - 11/21/2016 2:45 PM EDT I spoke with covering PCP Dr. Barron and she wanted to let us know that Francie has not had a big improvement since going to ER on Monday Evening and she wanted to be sure that this was not her Lupus causing Respiratory issues for Francie. Advised I would forward to Dr. Lowe. Telephone Encounter - Kristy Asher RN - 11/21/2016 2:13 PM EDT Francie calls and states she has been sick for 2 weeks and went to ER on Monday and was diagnosed with Acute Bronchitis. Francie was given Prednisone taper, she is concerned about the Prednisone dose of 60 mg for 2 days and taper by 20 mg every 2 days then check with Poultry Eviscerator. Last MTX was 4 tabs last Monday. I advised that she should hold MTX until she feels 100% better and I will check with Dr. Lowe but believe it is ok to go back to usual dose of Prednisone 4 mg daily once taper is completed. Francie also wants to know if Robitussin and Mucinex OTC are ok to take? Advised yes this is ok. Will call back about Prednisone. Telephone Encounter - Kristy Asher RN - 11/21/2016 2:03 PM EDT Call received from PCP office wanting to discuss Francie. RTC and left message for her to call back. Telephone Encounter - Kristy Asher RN - 11/21/2016 11:29 AM EDT Francie calls to report she was seen in ER for Acute Bronchitis and was started on Prednisone 60 mg and a Z-Pack. She would like to know what she should do about Prednisone. RTC and left message asking her to call back to discuss further. documented in this encounter Plan of Treatment Not on filedocumented as of this encounter Visit Diagnoses Not on filedocumented in this encounter Care Teams Melting Supervisor Relationship Specialty Start Date End Date Daniel Hinkle MD PCP - General Family Medicine 09/19/16 [place] [phone] documented as of this encounter
--- OUTSIDE RECORDS SUMMARY | 2022-05-27 14:52 | XMS_ITS | Encounter Summary ---
:1960 Author Organization [facility] [place] [address] Care Team Providers Name Role Phone Unknown Primary Care Provider Unavailable Reason for Visit Reason Onset Date Comments Medication Refill 04/20/2016 Encounter Details Date Type Department Care Team Description 04/20/2016 Refill Rheumatology at [facility] Kristy Asher RN Acute recurrent pansinusitis ; [facility] rivstefany Need for pneumocystis [place] [address] Social History Tobacco Use Types Packs/Day [...] chemotherapy documented in this encounter Care Teams Accounting Manager Cpa Relationship Specialty Start Date End Date Unknown PCP - General 04/04/16 09/18/16 None documented as of this encounter
--- OUTSIDE RECORDS SUMMARY | 2022-05-27 14:52 | XMS_ITS | Encounter Summary ---
:1960 Author Organization [facility] [place] [address] Care Team Providers Name Role Phone Daniel Hinkle MD Primary Care Provider Reason for Referral Consultation (Routine) - Duplicate Referral Specialty Diagnoses / Procedures Referred By Contact Refer red To Contact Pulmonology Diagnoses Lung involvement in systemic lupus erythematosus Dyspnea, unspecified type Patricio Lowe MD Enelow, Richard I, MD [facility] RHEUMATOLOGY DEPT. PULMONARY MEDICINE [address] [address] Fax: Referral ID Status Reason Start Expiration Visits Visits Date Date Requested Authorized [id number] Duplicate Consult, 11/28/2016 11/28/2017 3 3 Referral Test & Treat Encounter Details Date Type Department Care Team Description 11/25/2016 Office Visit [place] [facility] Patricio Lowe, Lung involvement in systemic lupus erythematosus; [facility] [place], [place] [address] [facility] [phone] RHEUMATOLOGY DEPT. [place], [place] [address] Social History Tobacco Use Types [...] Sign Reading Time Taken Comments Blood Pressure 151/75 11/25/2016 10:24 AM EDT Pulse 68 11/25/2016 10:24 AM EDT Temperature - - Respiratory Rate 16 11/25/2016 10:24 AM EDT Oxygen Saturation 99% 11/25/2016 10:24 AM EDT Inhaled Oxygen Concentration - - Weight 93 kg (205 lb) 11/25/2016 10:24 AM EDT Height 165.1 cm (5' 5) 11/25/2016 10:24 AM EDT Body Mass Index 34.11 11/25/2016 10:24 AM EDT documented in this encounter Progress Notes Patricio Lowe MD - 11/25/2016 10:30 AM EDT Subjective: Patient ID: Francie Yusuf [...] shortness of breath prompting an admission to [facility] [place] October 2015 where patchy subsegmental opacities [...] MTX. When last seen in , she was doing well with the notion that her lupus pneumonitis had improvedt on MTX 10 mg/week and this has allowed Prednisone tapering 5 mg/d. She reported symptoms (left sided chest and midline sternal pain that sound like could be esophageal) and we planned to taper her prednisone by 1 mg/d/month. Interval History: Ms. Yusuf reports developing nasal congestion a few weeks ago with chest heaviness. Went to the ER [facility]. She was given Z-pack and prednisone 60 mg/d for 'acute bronchitis'. No benefit after 1week with 60 mg/d and returned to her daily 4 mg/d Prednisone dose. No joint pain. . She reports still having a hard time breathing with chest congestion. Gets very short of breath veryquickly, walking short distances. Summary of her history is as follows [...] CXR and echocardiogram. She was transferred to [facility] s/p IR guided drainage of 70cc of [...] NAD. She has gained weight Blood pressure 151/75, pulse 68, resp. rate 16, height 165.1 cm (5' 5), weight 93 kg (205 lb), [id number] %. Skin exam: No UE bruising . [...] think she is moving air very well. Some expiratory wheezing with forced expiration. No longer diffuse sternochondral tenderness, no splinting Cor: RR no rub. 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 No active synovitis Extremities: Edema in LE is much less only 1+ Assessment and Plan: Lupus pneumonitis with some improvement on MTX and this had previously allowed Prednisone tapering. This does not sound like PE as it seems more like a post- infectious process in someone with reactive airways. Supporting the notion of reactive airways; there is some temporal variation in her symptoms.Surprisingly, inhaler and steroid and Z-pack along with tincture to time have not made a subjective difference. Unable to demonstrate any chest wall symptoms. Echocardiogram in did not show any issues. 1. Labs today +PFTs 2. If normal continue taper of Prednisone 1 mg every month 3. Will wait labs and PFTs and see if a repeat pulmonary consultation, CT scan or exercise test would best determine the cause of her symptoms Level 5 follow up Patricio Lowe M.D. PFTS: 11.25.17 FVC 75%; FEV1 74%, DCLO 82% These are unchanged in over a year and suggests restriction more than obstruction. This is also as her prednisone has been markedly reduced. Labs show no obvious activity c/w lupus. Low K and low calcium, of no clear relevance to her symptoms. Shrinking lung? I am tempted to continue her steroid taper while asking Dr. Huang for his recommendations Recent Results (from the past 24 hour(s)) Comprehensive metabolic panel (non-fasting) Result Value Ref Range Glucose Lvl 92 65 - 199 mg/dL BUN 13 8 - 18 mg/dL Creatinine 0.86 0.70 - 1.20 mg/dL Sodium 144 135 - 145 mmol/L Potassium 3.3 (L) 3.5 - 5.0 mmol/L Chloride 100 98 - 107 mmol/L CO2 29 22 - 31 mmol/L Anion Gap 15 5 - 15 mmol/L Calcium 8.0 (L) 8.5 - 10.5 mg/dL Total Protein 6.5 6.1 - 8.0 gm/dL Albumin 4.2 3.2 - 5.2 gm/dL AST 17 0 - 30 unit/L ALT 17 0 - 30 unit/L Alk Phos 74 40 - 104 unit/L Total Bilirubin 0.4 0.2 - 1.3 mg/dL Bili, Direct 0.1 0.0 - 0.3 mg/dL Estimated GFR >60 >=60 Sedimentation rate Result Value Ref Range Sed Rate 9 0 - 20 mm/hr Hemogram Result Value Ref Range WBC 12.8 (H) 4.0 - 9.5 x10(3)/mcL RBC 4.95 4.00 - 5.21 x10(6)/mcL Hemoglobin 14.1 11.7 - 15.5 gm/dL Hematocrit 41.4 35.7 - 45.8 % MCV 83.6 82.6 - 94.4 fL MCH 28.5 27.1 - 32.0 pg MCHC 34.1 31.7 - 35.0 gm/dL Platelets 275 145 - 357 x10(3)/mcL RDWSD 43.2 37.0 - 46.0 fL RDWCV 14.2 (H) 11.5 - 14.1 % MPV 9.3 7.6 - 12.9 fL nRBC % Auto 0.0 % nRBC Abs Auto 0.000 0.000 - 0.000 x10(3)/mcL Differential, Automated Result Value Ref Range Neutrophils % 79.5 % Neutr Abs (ANC) 10.20 (H) 1.70 - 6.10 x10(3)/mcL Lymphocytes % 9.7 % Lymphocytes Abs 1.2 0.9 - 3.2 x10(3)/mcL Monocytes % 8.8 % Monocyte Abs 1.1 (H) 0.3 - 0.9 x10(3)/mcL Eosinophils % 0.7 % Eosinophils Abs 0.1 0.0 - 0.4 x10(3)/mcL Basophils % 0.2 % Basophils Abs 0.0 0.0 - 0.1 x10(3)/mcL Immature Gran % 1.10 % Cheryl Gran Abs 0.14 (H) 0.00 - 0.04 x10(3)/mcL documented in this encounter Miscellaneous Notes Addendum Note - Patricio Lowe MD - 11/28/2016 3:26 PM EDT Addended by: PATRICIO LOWE on: 11/28/2016 03:26 PM Modules accepted: Orders Addendum Note - Jerry Hodgson - 11/25/2016 11:34 AM EDT Addended by: JERRY HODGSON on: 11/25/2016 11:34 AM Modules accepted: Orders documented in this encounter Plan of Treatment Scheduled Referrals Name Type Priority Associated Diagnoses Order S chedule Referral to Outpatient Referral Routine Lung involvement in O rdered: Pulmonology systemic lupus 11/28/2016 erythematosus Dyspnea, unspecified type documented as of this encounter Procedures Procedure Name Priority Date/Time Associated Diagnosis Comme nts HEMOGRAM Routine 11/25/2016 11:43 Lung involvement in Resu lts for this AM EDT systemic lupus procedure are in erythematosus the results section. DIFFERENTIAL, Routine 11/25/2016 11:43 Lung involvement in Res ults for this AUTOMATED AM EDT systemic lupus procedure are in erythematosus the results section. SEDIMENTATION RATE Routine 11/25/2016 11:43 Lung involvement i n Results for this AM EDT systemic lupus procedure are in erythematosus the results section. CBC (WITH DIFF) Routine 11/25/2016 11:43 Lung involvement in AM EDT systemic lupus erythematosus COMPREHENSIVE Routine 11/25/2016 11:43 Lung involvement in Res ults for this METABOLIC PANEL AM EDT systemic lupus procedure are in (NON-FASTING) erythematosus the results section. documented in this encounter Results (ABNORMAL) Differential, Automated (11/25/2016 11:43 AM EDT) [facility] Method Time Signature Neutrophils % 79.5 % [facility] Neutr Abs (ANC) 10.20 (H) 1.70 - [facility] 6.10 [facility] x10(3)/[facility] LABORATORY Lymphocytes % 9.7 % [facility] Lymphocytes Abs 1.2 0.9 - 3.2 [facility] x10(3)/[facility] LABORATORY Monocytes % 8.8 % [facility] Monocyte Abs 1.1 (H) 0.3 - 0.9 [facility] x10(3)/[facility] LABORATORY Eosinophils % 0.7 % [facility] Eosinophils Abs 0.1 0.0 - 0.4 [facility] x10(3)/[facility] LABORATORY Basophils % 0.2 % [facility] Basophils Abs 0.0 0.0 - 0.1 [facility] x10(3)/[facility] LABORATORY Immature Gran % 1.10 % [facility] Comment: Immature granulocytes(IG's)percentage an d absolute count will include metamyelocytes, myelocytes, and promyelo cytes. Blood smears from CBCs yielding IG's will be scanned manually for concor dance. If this scan disagrees with the automated IG or if promyelocytes are not ed, a manual differential will be performed. Cheryl Gran Abs 0.14 (H) 0.00 - 0.04 x10(3)/[facility] LABORATORY Specimen Anatomical Collection Method Collection Time Receive d Time (Source) Location / / Volume Laterality Blood specimen 11/25/2016 11:43 7 (specimen) AM EDT 11:52 AM EDT Resulting Agency Comment Spec In Lab Patricio Lowe MD HEMATOLOGY ORDERABLES Performing Organization Address City/State/[place] [address] (ABNORMAL) Hemogram (11/25/2016 11:43 AM EDT) Analysis Performed At Patho logist Time Signature WBC 12.8 (H) 4.0 - 9.5 [place] x10(3)/[facility] LABORATORY RBC 4.95 4.00 - [place] 5.21 [facility] x10(6)/[facility] LABORATORY Hemoglobin 14.1 11.7 - [place] 15.5 gm/dL [facility] Hematocrit 41.4 35.7 - [place] 45.8 % [facility] MCV 83.6 82.6 - [facility] 94.4 [facility] LAB[facility]ATORY MCH 28.5 27.1 - [place] 32.0 pg [facility] MCHC 34.1 31.7 - [facility] 35.0 gm/dL [facility] Platelets 275 145 - 357 [facility] x10(3)/[facility] LABORATORY RDWSD 43.2 37.0 - [facility] [place] 46.0 [facility] LABORATORY RDWCV 14.2 (H) 11.5 - [place] 14.1 % [facility] LAB[facility] MPV 9.3 7.6 - 12.9 [facility] [facility] nRBC % Auto 0.0 % [facility] nRBC Abs Auto 0.000 0.000 - [place] 0.000 [facility] x10(3)/[facility] LABORATORY Specimen Anatomical Collection Method Collection Time Receive d Time (Source) Location / / Volume Laterality Blood specimen 11/25/2016 11:43 7 (specimen) AM EDT 11:52 AM EDT Resulting Agency Comment Spec In Lab Patricio Lowe MD HEMATOLOGY ORDERABLES Performing Organization Address City/State/[place] [address] Sedimentation rate (11/25/2016 11:43 AM EDT) P athologist Signature Sed Rate 9 0 - 20 [place] mm/hr [facility] Specimen Anatomical Collection Method Collection Time Receive d Time (Source) Location / / Volume Laterality Blood specimen 11/25/2016 11:43 7 (specimen) AM EDT 11:52 AM EDT Resulting Agency Comment Spec In Lab Patricio Lowe MD HEMATOLOGY ORDERABLES Performing Organization Address City/State/[place] [address] (ABNORMAL) Comprehensive metabolic panel (non-fasting) (11/25/2016 11:43 AM EDT) athologist Signature Glucose Lvl 92 65 - 199 [facility] mg/dL [facility] Comment: Diabetes: >=200 mg/dL plus symp toms BUN 13 8 - 18 mg/dL [facility] Creatinine 0.86 0.70 - 1.20 mg/dL [facility] Comment: Please note that the pediatric reference intervals supplied above were not validated at [facility]. Results from pediatri c patients should be interpreted in conjunction to the patient's age, height and muscle mass. Sodium 144 135 - 145 mmol/L [facility] Potassium 3.3 (L) 3.5 - 5.0 mmol/L [facility] Comment: Please note: ??Patients with WBC >100,00 0 may have falsely elevated Potassium levels. ??For accurate Potassium quantif ication in these patients send serum separator tube (gold top) for subsequent determinations. ??Contact the Clinical Chemistry Laboratory if there are any qu estions. Chloride 100 98 - 107 mmol/L [facility] CO2 29 22 - 31 mmol/L [facility] Anion Gap 15 5 - 15 mmol/L [facility] Calcium 8.0 (L) 8.5 - 10.5 mg/dL [facility] Total Protein 6.5 6.1 - 8.0 gm/dL [facility] Albumin 4.2 3.2 - 5.2 gm/dL [facility] AST 17 0 - 30 unit/L [facility] ALT 17 0 - 30 unit/L [facility] Alk Phos 74 40 - 104 unit/L [facility] Total Bilirubin 0.4 0.2 - 1.3 mg/dL [facility] Bili, Direct 0.1 0.0 - 0.3 mg/dL [facility] Estimated GFR >60 >=60 [facility] Comment: This estimated GFR (eGFR) [...] the following links into your internet browser. 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
--- OUTSIDE RECORDS SUMMARY | 2022-05-27 14:52 | XMS_ITS | Encounter Summary ---
:1960 Author Organization [facility] [place] [address] Care Team Providers Name Role Phone Daniel Hinkle MD Primary Care Provider Reason for Visit Reason Onset Date Comments Medication Refill 11/08/2016 Encounter Details Date Type Department Care Team Description 11/08/2016 Refill [place] [facility] Kristy Asher, Lung involvement in [facility] Marquis [place] [address] [place] [address] Social History Tobacco Use Types Packs/Day Years [...] Telephone Encounter - Kristy Asher RN - 11/08/2016 10:02 AM EDT Francie calls for 90 day supply of MTX and Prednisone 1 mg tabs per request of her insurance. Francie reports she is currently at 4 mg daily of Prednisone and 10 mg weekly of MTX. 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
--- OUTSIDE RECORDS SUMMARY | 2022-05-27 14:52 | XMS_ITS | Encounter Summary ---
:1960 Author Organization [facility] [place] [address] Care Team Providers Name Role Phone Kunal Nesbitt MD Primary Care Provider Reason for Visit Reason Onset Date Comments Medication Refill 02/04/2016 Encounter Details Date Type Department Care Team Description 02/04/2016 Refill [place] [facility] Kristy [place]her, [place] [address] Social History Tobacco Use Types Packs/Day [...] on filedocumented in this encounter Care Teams Clarity Developer Relationship Specialty Start Date End Date Kunal Nesbitt MD PCP - General Family Medicine 06/09/15 04/03/16 documented as of this encounter
--- OUTSIDE RECORDS SUMMARY | 2022-05-27 14:52 | XMS_ITS | Encounter Summary ---
:1960 Author Organization [facility] [address] Care Team Providers Name Role Phone Kunal Nesbitt MD Primary Care Provider Encounter Details Date Type Department Care Team Description 12/07/2015 Orders Only Rheumatology at [facility] Patricio Lowe MD Lupus [facility] [place] [address] RHEUMATOLOGY DEPT. [phone] [place], [place] [address] (Wo rk) Social History Tobacco [...] encounter Progress Notes Patricio Lowe MD - 12/07/2015 6:19 PM EDT Patient intolerant of smallest doses of mycophenolate and azathioprine. Will try weekly MTX with 7.5mg/week and advance as tolerated and to be taken on Fridays. I will ask Ms. Asher to tell Francie this as well as tell her to hold her Bactrim tablet on Fridays. She is scheduled to see me in three weeks and we will get a CBC and study the interaction if any with her Bactrim therapy. Patricio Lowe documented in this encounter Plan of Treatment Not on filedocumented as of this encounter Visit Diagnoses Diagnosis Lupus Systemic lupus erythematosus documented in this encounter Care Teams Management Trainee Program Stores Relationship Specialty Start Date End Date Kunal Nesbitt MD PCP - General Family Medicine 06/09/15 04/03/16 documented as of this encounter
--- OUTSIDE RECORDS SUMMARY | 2022-05-27 14:52 | XMS_ITS | Encounter Summary ---
:1960 Author Organization [facility] Address [address] [place] [address] Care Team Providers Name Role Phone Daniel Hinkle MD Primary Care Provider Encounter Details Date Type Department Care Team Description 12/26/2016 Hospital Encounter [place] [facility] Systemic lupus erythematosus , unspecified SLE type, unspecified organ involvement status; [facility] NOBLE (dysp amada on exertion); Drive Restrict[place] [address] Social History Tobacco Use Types Packs/Day Years [...] 20 mg by 0 tablet mouth nightly. predniSONE (DELTASONE) 5 mg 8 T today for 4 120 tablet 3 01/30/2017 TabletIndications: Dyspnea, days, then unspecified type, Systemic reduce by 1 T a lupus erythematosus, day until on 5 unspecified SLE type, mg (1 T) daily unspecified organ involvement status sulfamethoxazole-trimethopri Take 1 tablet by 90 tablet [...] encounter Procedure Notes Fracisco García MD - 12/26/2016 5:02 PM EDTAssociated Order(s): PULMONARY FUNCTION TEST Spirometry: FVC is decreased FEV1 is decreased FEV1 / FVC ratio is normal Diffusion: DLCO is normal Lung Volumes: Not Done Oxygen Saturation: Oxygen saturation 98% on RA at rest and 94% on RA after a 600 feet walk FENO: Not Done Interpretation: ?? Spirometry suggests restriction ?? Consider lung volumes to confirm or refute restriction if clinically indicated ?? Normal diffusing capacity ?? Oxygen saturation normal on room air ?? Mild desaturation with ambulation ?? This pattern of results could be explained by obesity, mild neuromuscular disease or mild interstitial disease Fracisco García MD documented in this encounter Plan of Treatment Not on filedocumented as of this encounter Procedures Procedure Name Priority Date/Time Associated Diagnosis Comme nts PULMONARY FUNCTION Routine 12/26/2016 5:06 PM Systemic lupus R esults for this TEST EDT erythematosus, procedure are in unspecified SLE the results type, unspecified section. organ involvement status NOBLE (dyspnea on exertion) Restrictive lung disease documented in this encounter Results Pulmonary Function Testing (12/26/2016 5:06 PM EDT) Narrative Fracisco García MD - 12/26/2016 5:06 P M EDT Fracisco García MD ? 12/26/2016 ??5:06 PM Spirometry: FVC is decreased FEV1 is decreased FEV1 / FVC ratio is normal Diffusion: DLCO is normal Lung Volumes: Not Done Oxygen Saturation: Oxygen saturation 98% on RA at rest and 94% on RA after a 600 feet walk FENO: Not Done Interpretation: ?? Spirometry suggests restriction ?? Consider lung volumes to confirm or r efute restriction if clinically indicated ?? Normal diffusing capacity ?? Oxygen saturation normal on room air ?? Mild desaturation with ambulation ?? This pattern of results could be expl ained by obesity, mild neuromuscular disease or mild interstiti al disease Fracisco García MD Patricio Lowe MD PFT ORDERABLES documented in this encounter Visit Diagnoses Diagnosis Systemic lupus erythematosus, unspecifie d SLE type, unspecified organ involvement status NOBLE (dyspnea on exertion) Other dyspnea and respiratory abnormalit y Restrictive lung disease Other diseases of lung, not elsewhere cl assified documented in this encounter Care Teams Cryptologic Supervisor Relationship Specialty Start Date End Date Daniel Hinkle MD PCP - General Family Medicine 2/6/17 [address] [place] [address] documented as of this encounter
--- OUTSIDE RECORDS SUMMARY | 2022-05-27 14:52 | XMS_ITS | Encounter Summary ---
:1960 Author Organization [facility] [place] [address] Care Team Providers Name Role Phone Kunal Nesbitt MD Primary Care Provider Reason for Visit Reason Onset Date Comments Medication Refill 01/08/2016 Encounter Details Date Type Department Care Team Description 01/08/2016 Refill Rheumatology at [facility] Kristy [place]her, [place] [address] Social History Tobacco Use Types Packs/Day [...] on filedocumented in this encounter Care Teams Hide Sorter Relationship Specialty Start Date End Date Kunal Nesbitt MD PCP - General Family Medicine 06/09/15 04/03/16 documented as of this encounter
--- OUTSIDE RECORDS SUMMARY | 2022-05-27 14:52 | XMS_ITS | Encounter Summary ---
:1960 Author Organization [facility] [place] [address] Care Team Providers Name Role Phone Unknown Primary Care Provider Unavailable Encounter Details Date Type Department Care Team Description 04/04/2016 Office Visit Hematology and Farzaneh Valera, Oncology at [facility] MD Roselia unspecified type [address] [place]OGY [address] DEPT. [phone] [place], [place] [address] (Wo rk) Social History Tobacco [...] encounter Progress Notes Farzaneh Valera MD - 04/04/2016 3:00 PM EDT Images from the original note were not included. Hematology Clinic [facility] [place] [address] FOLLOW-UP PATIENT EVALUATION PROBLEM LIST: 1. Hypertension. [...] W/U to date w/ neg ECHO at [facility]. CT w/ one para-aortic 2cm LN which we will follow. Neg SPEP and 24 hour urine at [facility]. Neg fat pad biopsy. BMBx not yet completed. a. repeat CT, February 2010, with no pathologically enlarged adenopathy. Bone marrow biopsy negative for amyloid and lymphoma. B. CT February 2014 with 1cm (short axis) para-aortic LN. Otherwise negative. SPEP, SFLC remain neg. Patient Active Problem List Diagnosis ??? Amblyopia, left eye ??? Keratoconjunctivitis sicca due to decreased tear production ??? Chest pain ??? Hypoxia ??? Chronic rhinitis ??? Cardiac tamponade ??? Acute bloody pericarditis ??? Pleural effusion ??? S/P complete thyroidectomy ??? Amyloidosis cutis ??? 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 Followed by Severiano Pineda. W/U to date w/ neg ECHO at [facility]. CT w/ one para-aortic 2cm LN which we will follow. Neg SPEP and 24 hour urine at [facility]. Neg fat pad biopsy. BMBx not yet [...] In addition, there is superficial anddeep perivascular [place]+, Lambda- plasma cell infiltrate. Please correlate with [...] details No other sx/sx of systemic amyloid. ROS Energy level:stable Pain: No Appetite:good Fevers/chills/sweats:No Bruising/bleeding/melena: See above Recent infections:No HEENT: negative Nausea/vomiting/diarrhea/constipation:No SOB/NOBLE/chest pain:No Change in adenopathy or other masses:No Unexpected weight loss or gain:No Skin rashes or petechiae:as above Musculoskeletal complaints:No Extremities: Negative upper and lower bilaterally Neurologic symptoms:No MEDS: Current Outpatient Prescriptions on File Prior to Visit Medication Sig Dispense Refill ??? cycloSPORINE (RESTASIS) 0.05 % [address] 1 drop into both eyes every 12 hours. (Patient not taking: Reported on 02/08/2016) 180 vial 3 ??? ibuprofen (ADVIL;MOTRIN) 800 mg Tablet Take 1 tablet by mouth every 8 hours as needed for Pain. 30 tablet 12 ??? predniSONE (DELTASONE) 5 mg Tablet Taper by 1 mg every 2 weeks, use with 1 mg tablets (Patient taking differently: Take 5 mg by mouth daily. Taper by 1 mg every 2 weeks, use with 1 mg tablets) 300 tablet 3 ??? predniSONE (DELTASONE) 1 mg Tablet Taper as directed every 2 weeks, Use with 5 mg tablets, (Patient taking differently: Take 3 mg by mouth daily. Taper as directed every 2 weeks, Use with 5 mg tablets,) 300 tablet 3 ??? methotrexate 2.5 mg Tablet Take 3 T on Monday with dinner. Increase by 1 T each week as tolerated up to 6 T/week 60 tablet 11 ??? sulfamethoxazole-trimethoprim (BACTRIM;SEPTRA) 400-80 mg Tablet Take 1 tablet by mouth daily. 90tablet 3 ??? hydroxychloroquine (PLAQUENIL) 200 mg Tablet Take 1 tablet by mouth daily. 60 tablet 6 ??? predniSONE (DELTASONE) 20 mg Tablet Take 4 tablets by mouth daily. (Patient taking differently: Take 30 mg by mouth daily.) 80 tablet 1 ??? levothyroxine (SYNTHROID) 125 mcg Tablet Take 125 mcg by mouth nightly. ??? fluticasone (FLOVENT) 220 mcg/actuation HFA Aerosol Inhaler Inhale 2 puffs into the lungs 2 times daily. ??? hydrochlorothiazide (HYDRODIURIL) 25 mg Tablet daily. 0 ??? cetirizine (ZYRTEC) 10 mg Tablet Take [...] mg tablet Take by mouth as needed. Take 1-2 tabs of the (500mg) Tablets No current facility-administered medications on file prior [...] per HPI above. See photos below. Hemorrhagiclesion noted NEUROLOGICAL: Alert and oriented to person, place and time. MUSCULOSKELETAL: No spinal or chest wall tenderness. Bilateral LE 2015 Right LE 2015 R LE 2016 R LE 2016 LLE 2016 LABORATORY STUDIES Recent Results (from the past 24 hour(s)) Comprehensive metabolic panel (non-fasting) Result Value Ref Range Glucose Lvl 101 65 - 199 mg/dL BUN 13 8 - 18 mg/dL Creatinine 0.80 0.70 - 1.20 mg/dL Sodium 144 135 - 145 mmol/L Potassium 3.7 3.5 - 5.0 mmol/L Chloride 101 98 - 107 mmol/L CO2 26 22 - 31 mmol/L Anion Gap 17 (H) 5 - 15 mmol/L Calcium 8.5 8.5 - 10.5 mg/dL Total Protein 6.7 6.1 - 8.0 gm/dL Albumin 4.4 3.2 - 5.2 gm/dL AST 23 0 - 30 unit/L ALT 19 0 - 30 unit/L Alk Phos 54 40 - 104 unit/L Total Bilirubin 0.3 0.2 - 1.3 mg/dL Bili, Direct 0.1 0.0 - 0.3 mg/dL Estimated GFR >60 >=60 Lactate Dehydrogenase Result Value Ref Range LDH 269 (H) 110 - 220 unit/L Protein Electrophoresis, serum Result Value Ref Range Total Prot Elec 6.4 6.1 - 8.0 gm/dL Immunoglobulins, Quantitative Result Value Ref Range IgG 475 (L) 700 - 1600 mg/dL IgA 38 (L) 70 - 400 mg/dL IgM 82 40 - 230 mg/dL Hemogram Result Value Ref Range WBC 10.3 (H) 4.0 - 10.0 x10(3)/mcL RBC 4.84 3.93 - 5.22 x10(6)/mcL Hemoglobin 13.7 11.2 - 15.7 gm/dL Hematocrit 41.0 34.0 - 45.0 % MCV 84.7 79.0 - 94.0 fL MCH 28.3 26.6 - 32.2 pg MCHC 33.4 32.0 - 36.5 gm/dL Platelets 299 145 - 370 x10(3)/mcL RDWSD 41.2 35.0 - 46.0 fL RDWCV 13.3 10.9 - 14.4 % MPV 9.6 9.0 - 12.0 fL nRBC % Auto 0.0 % nRBC Abs Auto 0.000 0.000 - 0.012 x10(3)/mcL Differential, Automated Result Value Ref Range Neutrophils % 89.1 % Neutr Abs (ANC) 9.20 (H) 1.50 - 6.30 x10(3)/mcL Lymphocytes % 6.4 % Lymphocytes Abs 0.7 (L) 1.0 - 3.6 x10(3)/mcL Monocytes % 3.6 % Monocyte Abs 0.4 0.2 - 1.0 x10(3)/mcL Eosinophils % 0.2 % Eosinophils Abs 0.0 0.0 - 0.5 x10(3)/mcL Basophils % 0.2 % Basophils Abs 0.0 0.0 - 0.2 x10(3)/mcL Immature Gran % 0.50 % Cheryl Gran Abs 0.05 0.00 - 0.05 x10(3)/mcL RADIOLOGY STUDIES REVIEWED: CT Chest / [...] biopsy in 2014 and it was negative. Will plan to see her back in one year w/ Dr. Whitney. Plan cbc, cmp, sflc, spep and Quant ig At the timeof the appointment. I would not plan another CAT scan , unless clinically indicated. SLE since dx - hemorrhagic pleural effusion. Followed by Pt seen in multidisciplinary clinic with Dr. Whitney of Dermatology. total time:30 time in counsellin Copy Maria Fournier APRN documented in this encounter Plan of Treatment Not on filedocumented as of this encounter Visit Diagnoses Diagnosis Amyloidosis, unspecified type documented in this encounter Care Teams Post Anesthesia Nurse Relationship Specialty Start Date End Date Unknown PCP - General 04/04/16 09/18/16 None documented as of this encounter
--- OUTSIDE RECORDS SUMMARY | 2022-05-27 14:52 | XMS_ITS | Encounter Summary ---
:1960 Author Organization [facility] [place] [address] Care Team Providers Name Role Phone Kunal Nesbitt MD Primary Care Provider Reason for Visit Reason Onset Date Comments Other 02/16/2016 Lab Results Encounter Details Date Type Department Care Team Description 02/16/2016 Telephone Rheumatology at [facility] Kristy Asher RN Other (Lab Results) [place] [address] Social History Tobacco Use Types Packs/Day [...] Telephone Encounter - Kristy Asher RN - 02/16/2016 12:33 PM EDT I spoke with Francie and went over letter from Dr. Lowe. Also reviewed plan of care from last visit.Francie will increase MTX to 4 tablets on Monday and will try to decrease prednisone by 1 mg every week as tolerated. Francie will make an effort to walk more than 3 times per week. Telephone Encounter - Kristy Asher RN - 02/16/2016 9:25 AM EDT Francie calls today wanting to know her lab results and if she should increase her medication. RTC and left a message for Francie to RTC to discuss labs and plan of care per letter from Dr. Lowe. documented in this encounter Plan of Treatment Not on filedocumented as of this encounter Visit Diagnoses Not on filedocumented in this encounter Care Teams Shellfish Processing Machine Tender Relationship Specialty Start Date End Date Kunal Nesbitt MD PCP - General Family Medicine 06/09/15 04/03/16 documented as of this encounter
--- OUTSIDE RECORDS SUMMARY | 2022-05-27 14:52 | XMS_ITS | Encounter Summary ---
:1960 Author Organization [facility] [place] [address] Care Team Providers Name Role Phone Kunal Nesbitt MD Primary Care Provider Encounter Details Date Type Department Care Team Description 12/29/2015 Hospital Encounter Ultrasound at [facility] Patricio Lowe Popliteal cyst, [facility] MD [address] [place], [place] CENTER [address] RHEUMATOLOGY [phone] [place] [address] Social History Tobacco Use Types Packs/Day Years [...] Name Priority Date/Time Associated Diagnosis Comme nts US EXTREMITY NON Routine 12/29/2015 9:49 AM Popliteal cyst, Re sults for this VASCULAR LIMITED EDT unspecified procedure a re in ANATOMIC SPECIFIC laterality the result s LEFT section. documented in this encounter Results US Extremity Non Vascular Limited Anatomic Specific Left (12/29/2015 9:49 AM EDT) Anatomical Region Laterality Modality Ultrasound Specimen (Source) Anatomical Collection Method Collection Time Re ceived Time Location / / Volume Laterality 12/29/2015 9:49 AM EDT Impressions 12/29/2015 10:06 AM EDT Impression Unilateral Extremity Summary Addendum: ??Additional history provided 1. No popiteal mass or Rosas's cyst. I ??viewed the images and agree with abel mccall above interpretation. ? Qise Valentine miles MD Electronically Signed Corrected Final Re port ??01/14/2016 08:10 am Narrative 12/29/2015 10:06 AM EDT Ultrasound Report ?(Corrected Final 01/14/2016 08:10 ? am) Patient Info ID #: ? [id number] ?: ??[birth year] (55 yrs) Name: ? DHEERAJ YUSUF ?Visit Date: 12/29/2015 09:49 am Performed By Performed By: ? Varghese Hutchison RDMS Attending: ?Tato RAMOS, Rei Grijalva. Associate: ?Kofi RAMOS, Jeremy Barkley Referred By: ?LYNN Oseguera MD Service(s) Provided ??UEXTLIML - Ultrasound Extremity Limit ed - Left - ?[id number] ??[id number] Indications ??evaluate for rosas's cyst/burst rosas 's cyst. ??Left knee pain -------- Findings -------- Title: ? Ultrasound Report Findings: ?No findings. Procedure Note Qi Godwin MD - 01/14/2016Forma tting of this note might be different from the original. Ultrasound Report (Corrected Final 09/2015 08:10 am) Patient Info ID #: [id number] : [birth year] (55 y rs) Name: DHEERAJ YUSUF Visit Date: 016 09:49 am Performed By Performed By: Varghese Hutchison RDMS Attending: Qi Godwin MD Associate: Randy Kirby MD Referred By: LYNN AGUIRRE MD Service(s) Provided UEXTLIML - Ultrasound Extremity Limited - Left - [id number] Indications evaluate for rosas's cyst/burst rosas's cyst. Left knee pain -------- Findings -------- Title: Ultrasound Report Findings: No findings. IMPRESSION Impression Unilateral Extremity Summary Addendum: Additional history provided 1. No popiteal mass or Rosas's cyst. I viewed the images and agree with the above interpretation. Qi Godwin MD Electronically Signed Corrected Final Re port 01/14/2016 08:10 am Patricio Lowe MD IM US GEN ORDERABLES documented in this encounter Visit Diagnoses Diagnosis Popliteal cyst, unspecified laterality documented in this encounter Care Teams Weekend Receptionist Relationship Specialty Start Date End Date Kunal Nesbitt MD PCP - General Family Medicine 06/09/15 04/03/16 documented as of this encounter
--- OUTSIDE RECORDS SUMMARY | 2022-05-27 14:52 | XMS_ITS | Encounter Summary ---
:1960 Author Organization [facility] Address [address] [place] [address] Care Team Providers Name Role Phone Daniel Hinkle MD Primary Care Provider Encounter Details Date Type Department Care Team Description 12/26/2016 Office Visit Rheumatology at [facility] Patricio Lowe, Systemic lupus erythematosus , unspecified SLE type, unspecified organ involvement status; [facility] MD NOBLE (dyspnea on exertion); Drive [facility] [place] [address] CENTER [phone] RHEUMATOLOGY DEPT. [place], [place] [address] Social History Tobacco Use Types [...] Sign Reading Time Taken Comments Blood Pressure 137/73 12/26/2016 1:26 PM EDT Pulse 70 12/26/2016 1:26 PM EDT Temperature - - Respiratory Rate - - Oxygen Saturation 96% 12/26/2016 1:26 PM EDT Inhaled Oxygen Concentration - - Weight 96.6 kg (213 lb) 12/26/2016 1:26 PM EDT Height 165.1 cm (5' 5) 12/26/2016 1:26 PM EDT Body Mass Index 35.45 12/26/2016 1:26 PM EDT documented in this encounter Patient Instructions Patient InstructionsPatricio Lowe MD - 12/26/2016 1:30 PM EDT 1. Kenalog 40 mg IM now 2. Begin rapid taper of prednisone over next 4 days to 0 3. Return in [address] Lowe to send results from [facility] from Dr. Soares and PFT flow volume loop by mail documented in this encounter Progress Notes Patricio Lowe MD - 12/26/2016 1:30 PM EDT Subjective: Patient ID: Francie Yusuf [...] shortness of breath prompting an admission to [facility] in October 2015 where patchy subsegmental opacities [...] on prednisone 4 mg/d and her PFTs were PFTS: 11.25. FVC 75%; FEV1 74%, DCLO 82%; unchanged in over a year and suggests restriction more than obstruction. This is also as her prednisone has been markedly reduced. Labs show no obvious activity c/w lupus. I asked for his thoughts but apparently this has not happened. We planned to continue steroid taper and consider a repeat pulmonary consultation, CT scan or exercise test would best determine the cause of her symptoms Interval History: Ms. Yusuf reports developing bronchitis and cough shortly after being seen and was put on prednisone 40 mg/d without any change in her breathing No joint pain.She reports still being very short of breath very quickly, walking short distances. She has had several workups in the past month 1. Echocardiogram 2. Stress test both at [facility] 3. Repeat PFTS today with lung volumes that do not appear appreciably different. Summary of her history is as follows [...] CXR and echocardiogram. She was transferred to [facility] s/p IR guided drainage of 70cc of [...] NAD. She has gained weight Blood pressure 137/73, pulse 70, height 165.1 cm (5' 5), weight 96.6 kg (213 lb), SpO2 96 %. Skin exam: No UE bruising . [...] think she is moving air very well. Cor: RR no rub. JOHAN 2/6 loudest [...] problem here that has persisted despite tapering of prednisone to 5 mg/d. We are in the process of determining how much lung compromise and possible cardiac causes exist. 1. Await formal reads of lung volumes, cardiac echo, ETT 2. Taper off prednisone in next 4-5 days, going down rapidly in context of background Kenalog 3. Return 3 weeks hopefully same day as Dr. Huang 4. Have rapid walk time to see if she desaturates 5. Will keep on MTX Level 5 follow up Patricio Lowe M.D. Yvette Darnell LPN - 12/26/2016 1:30 PM EDT Kenalog 40mg, administered IM in left gluteal. Site negative before and after injection. documented in this encounter Plan of Treatment Not on filedocumented as of this encounter Results Pulmonary Function Testing (12/26/2016 [...] diseases of lung, not elsewhere cl assified Systemic lupus erythematosus, unspecifie d SLE type, unspecified organ involvement status NOBLE (dyspnea on exertion) Other dyspnea and respiratory abnormalit y Restrictive lung disease Other diseases of lung, not elsewhere cl assified documented in this encounter Administered Medications Inactive Administered Medications - up to 3 most recent administrations Medication Order MAR Action Action Date Dose Rate Site triamcinolone acetonide Given 12/26/2016 2:36 PM 40 mg Left Gluteal (KENALOG-40) injection 40 mg EDT 40 mg, Intramuscular, ONCE, 1 dose, On 12/26/16 at 1445, Routine documented in this encounter Care Teams Marketing Automation Analyst Relationship Specialty Start Date End Date Daniel Hinkle MD PCP - General Family Medicine 09/19/16 [place] [address] documented as of this encounter
--- OUTSIDE RECORDS SUMMARY | 2022-05-27 14:52 | XMS_ITS | Encounter Summary ---
:1960 Author Organization [facility] [place] [address] Care Team Providers Name Role Phone Kunal Nesbitt MD Primary Care Provider Reason for Visit Reason Onset Date Comments Advice Only 01/12/2016 Encounter Details Date Type Department Care Team Description 01/12/2016 Telephone Rheumatology at [facility] Nel Vance, Advice Only [facility] [place] [address] Social History Tobacco Use Types Packs/Day [...] this encounter Miscellaneous Notes Telephone Encounter - Nel Vance RN - 01/12/2016 12:06 PM EDT Patient calling in today to ask about what she believes may be a side effect to Methotrexate. She has noticed an increase in her sweating. Patient states I've always been a heavy sweater. But now she's having sweat rolling off her face and soaking her clothes when engaging in out door activities or sitting in a warm car. She denies fever or chills. Message will be forwarded to provider. documented in this encounter Plan of Treatment Not on filedocumented as of this encounter Visit Diagnoses Not on filedocumented in this encounter Care Teams Manager In Training Relationship Specialty Start Date End Date Kunal Nesbitt MD PCP - General Family Medicine 06/09/15 04/03/16 documented as of this encounter
--- OUTSIDE RECORDS SUMMARY | 2022-05-27 14:52 | XMS_ITS | Encounter Summary ---
:1960 Author Organization [facility] [place] [address] Care Team Providers Name Role Phone Kunal Nesbitt MD Primary Care Provider Reason for Visit Reason Onset Date Comments Medication Problem 12/07/2015 Encounter Details Date Type Department Care Team Description 12/07/2015 Telephone Rheumatology at [facility] Kristy [place]her [place] [address] Social History Tobacco Use Types Packs/Day [...] this encounter Miscellaneous Notes Telephone Encounter - Patricoi Lowe MD - 12/10/2015 10:43 AM EDT It is also written on the prescription Thanks, very much appreciated. Patricio Telephone Encounter - Kristy Asher RN - 12/10/2015 9:43 AM EDT I spoke with Francie this morning and we went over directions for MTX , Folic Acid, and Bactrim. Francie repeats directions back to this nurse incorrectly at first, so we discussed again and she wasable to repeat back to this nurse correctly. Francie would like written information on MTX before starting, I will mail out today. We discussed indications, dosing, common side effects, monitoring parameters, when to call nurse. If Francie does not start Methotrexate tomorrow she will start next Monday and taper up weekly. Telephone Encounter - Kristy Asher RN - 12/09/2015 10:09 AM EDT Message left for Francie to RTC. Telephone Encounter - Kristy Asher RN - 12/08/2015 11:48 AM EDT Called Francie and left message for her to RTC. Telephone Encounter - Patricio Lowe MD - 12/07/2015 6:07 PM EDT Let's go with Methotrexate on a weekly basis (Monday) with folic acid 1 mg every day.She will start with 3 MTX tablet at dinner on Monday. Each week, she will increase it by one tablet until she is taking 8 T of MTX (20 mg) a week. If she gets nausea at a certain dose, hold there or reduce by 1 T. I will call this in Patricio Lowe See my note. ??Please talk with Francie about not taking the Bactrim the day she takes her methotrexate. It is more theoretical than real, but let's be safe. ?? I copy Dr. Nesbitt ? Thanks ? Willliam Telephone Encounter - Kristy Asher RN - 12/07/2015 10:40 AM EDT I spoke with rFancie and she states that she discarded Azathioprine in the garbage. She would like toknow if Dr. Lowe wants to move forward with another medication. I did advise that Arava and MTX are other medications Dr. Lowe is considering. Telephone Encounter - Kristy Asher RN - 12/07/2015 9:17 AM EDT Left message for Francie to RTC to nurse. Telephone Encounter - Patricio Lowe MD - 12/07/2015 8:49 AM EDT Mo, Tell Ms. Yusuf how sorry I am. Let's see if she has some azathioprine left. She should try taking 1/2tablet after a meal once a day and see what happens. If she gets nausea, vomiting or diarrhea on this dose, the next agent to try is leflunomide or methotrexate. I am leaning toward methotrexate since it is once a week. Leeroy Curry Telephone Encounter - Kristy Asher RN - 12/07/2015 8:20 AM EDT Francie calls this am and reports that she is unable to tolerate Cellcept 1/2 tab even with food. Dylon continued NVD. RTC to Francie and advised that she stop Cellcept and I will forward her message to Dr. Lowe for hisrecommendations. I advised Francie that I would call her back with plan of care. documented in this encounter Plan of Treatment Not on filedocumented as of this encounter Visit Diagnoses Not on filedocumented in this encounter Care Teams Logging Worker Relationship Specialty Start Date End Date Kunal Nesbitt MD PCP - General Family Medicine 06/09/15 04/03/16 documented as of this encounter
--- OUTSIDE RECORDS SUMMARY | 2022-05-27 14:52 | XMS_ITS | Encounter Summary ---
:1960 Author Organization [facility] [place] [address] Care Team Providers Name Role Phone Unknown Primary Care Provider Unavailable Reason for Visit Reason Onset Date Comments Other 08/03/2016 Appointment Encounter Details Date Type Department Care Team Description 08/03/2016 Telephone Rheumatology at [facility] Kristy Asher RN Other (Appointment) [place] [address] Social History Tobacco Use Types Packs/Day [...] Telephone Encounter - Kristy Asher RN - 08/03/2016 2:25 PM EST Francie calls today and states 07/18 appointment cancelled due to weather, and was told she is not able to get in to see Dr. Lowe until 09/18/15. She wants appointment sooner than that and states she was referred to speak with nurse. RTC and left message for her to call back and speak with typing secretary about being put on cancellation list. documented in this encounter Plan of Treatment Not on filedocumented as of this encounter Visit Diagnoses Not on filedocumented in this encounter Care Teams Admission Nurse Relationship Specialty Start Date End Date Unknown PCP - General 04/04/16 09/18/16 None documented as of this encounter
--- OUTSIDE RECORDS SUMMARY | 2022-05-27 14:52 | XMS_ITS | Encounter Summary ---
:1960 Author Organization [facility] [address] Care Team Providers Name Role Phone Kunal Nesbitt MD Primary Care Provider Encounter Details Date Type Department Care Team Description 12/29/2015 Hospital Encounter Pulmonology [place] [facility] [place] (dyspnea on [facility] exertion) [place] [address] Social History Tobacco Use Types Packs/Day [...] mg Tablet, Take 1 tablet by 0 06/17/20 15 Delayed Release (E.C.) mouth daily. albuterol (PROVENTIL Inhale 2 puffs 0 HFA;VENTOLIN HFA;PROAIR) 90 into the lungs mcg/actuation HFA Aerosol every 4 hours as Inhaler needed for Wheezing. Use with spacer simvastatin (ZOCOR) 20 mg Take 20 mg by 0 tablet mouth nightly. methotrexate 2.5 mg Take 3 T on [...] documented as of this encounter Procedure Notes Sachin Valdivia MD - 12/29/2015 2:51 PM EDTAssociated Order(s): PULMONARY FUNCTION TEST Forced vital capacity is reduced. FEV1 is reduced. The ratio is normal. Diffusing capacity is normal. Spirometry suggests restrictive disease but cannot diagnose this. Suggest lung volumes if clinicallyindicated. Diffusing capacity is normal. documented in this encounter Plan of Treatment Not on filedocumented as of this encounter Procedures Procedure Name Priority Date/Time Associated Diagnosis Comme nts PULMONARY FUNCTION Routine 12/29/2015 2:51 PM [place] (dyspnea on Results for this TEST EDT exertion) procedure are i n the results section. documented in this encounter Results Pulmonary Function Testing (12/29/2015 2:51 PM EDT) Narrative Sachin Valdivia MD - 12/29/2015 2:51 PM EDT Sachin Valdivia MD ? 12/29/2015 ??2:51 PM Forced vital capacity is reduced. FEV1 i s reduced. The ratio is normal. Diffusing capacity is normal. Spirometry suggests restrictive disease but cannot diagnose this. Suggest lung volumes if clinically indic ated. Diffusing capacity is normal. Patricio Lowe MD PFT ORDERABLES documented in this encounter Visit Diagnoses Diagnosis [place] (dyspnea on exertion) Other dyspnea and respiratory abnormalit y documented in this encounter Care Teams Coil Wrapper Relationship Specialty Start Date End Date Kunal Nesbitt MD PCP - General Family Medicine 06/09/15 04/03/16 documented as of this encounter
--- OUTSIDE RECORDS SUMMARY | 2022-05-27 14:52 | XMS_ITS | Encounter Summary ---
:1960 Author Organization [facility] [place] [address] Care Team Providers Name Role Phone Unknown Primary Care Provider Unavailable Reason for Visit Reason Comments Follow-up Encounter Details Date Type Department Care Team Description 04/04/2016 Office Visit Hematology and Oncology at [facility] [place], Kelsey Hauser MD Skin rash [facility] [address] [place] [address] [place] [address] [phone] (Wo rk) Social History Tobacco Use Types [...] Sign Reading Time Taken Comments Blood Pressure 138/86 04/04/2016 2:30 PM EDT Pulse 80 04/04/2016 2:30 PM EDT Temperature - - Respiratory Rate 20 04/04/2016 2:30 PM EDT Oxygen Saturation - - Inhaled Oxygen Concentration - - Weight 95 kg (209 lb 7 oz) 04/04/2016 2:30 PM EDT Height - - Body Mass Index 34.85 02/08/2016 12:08 PM EDT documented in this encounter Progress Notes Kelsey Whitney MD - 04/04/2016 3:00 PM EDT Interdisciplinary Cutaneous Lymphoma Clinic [facility] FOLLOW-UP PATIENT ENCOUNTER - 04/04/2016 Francie Yusuf : 1960 Staff Provider: Kelsey Whitney MD Resident provider: I am seeing this patient today in the interdisciplinary lymphoma clinic along with Dr. 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 I'm still trying to get my strengthback from a year ago January when i had the blood around my heart.Since I last saw her a year ago, much has happened medically, well summarized by DR. Lowe's note of January 2016:'Episodes of hemorrhage in pericardium and lung that occurred in 2014. Her coumadin was held and she had recurrent symptoms whenever her prednisone was stopped. stable on Prednisone 5 mg/d from June through September, -- thendeveloped a cough and increased shortness of breath prompting an admission to [facility] in October 2015 where patchy subsegmental opacities were seen in the lung with presumed lupus pneumonitis treated with high dose steroids. ?? When steroid sparing efforts were attempt to [...] 20 mg/d and we advanced her MTX. She is now on: plaquenil 200mg a day, prednisone 10mg a day, and methotrexate 10mg a week. She still has the nodular amyloidosis plaques on her legs, one new one on the posterior right LE, asymptomatic. She has a faint erythema on the upper back, that she had not recognized. PHYSICAL EXAM GENERAL: Appears well and is in no acute distress. Alert and oriented. Cushingoid facies SKIN: Complete skin exam including scalp, face, neck, arms, hands, feet, trunk, abdomen, legs, excluding genitalia Several indurated pigmented plaques and nodules bilateral lower legs. Upper Back faint pink patch of erythema with central clearing, without scaling on the center aspect of the upper back. Upper chest, base of neck: erythema secondary to sunburn. No rash on arms, legs , face ASSESSMENT/PLAN: 1. Upper back faint rash- ? Lupus. Very faint. I do not think this is a drug rash. I advised: RX;Triamcinolone 0.1% cream twice daily for 3 weeks to the upper back. If this gets more extensive,more intensely red or symptomatic, it could be biopsied. It was very subtle today. ?? 2. Follow up : She has two warts- one on a finger, the other on the side of her foot. I discussed mediplast plaster. Alternatively, if she would prefer I treat these when she returns in f/u with Dr. Lowe, I could treat with LN2 then, but likely I am at [facility] [address] that day, so she would need to make an appointment there. 3. Nodular amyloid. Lesions much the same, one new. Confined to the legs. No treatment. I am documenting this encounter acting as the scribe for and in the presence of Dr. Whitney: RUBÉN SIMMONS LPN I performed the above scribed service and agree with the accuracy of the documentation in this encounter. Kelsey Whitney MD Section of Dermatology [facility] CC: UNKNOWN No primary care provider on file. documented in this encounter Plan of Treatment Not on filedocumented as of this encounter Visit Diagnoses Diagnosis Skin rash Rash and other nonspecific skin eruption documented in this encounter Care Teams Stock Car Driver Relationship Specialty Start Date End Date Unknown PCP - General 04/04/16 09/18/16 None documented as of this encounter
--- OUTSIDE RECORDS SUMMARY | 2022-05-27 14:52 | XMS_ITS | Encounter Summary ---
:1960 Author Organization [place] [address] Care Team Providers Name Role Phone Kunal Nesbitt MD Primary Care Provider Encounter Details Date Type Department Care Team Description 12/23/2015 Telephone Rheumatology at [facility] Kristy Asher, [place] [address] Social History Tobacco Use Types Packs/Day [...] Telephone Encounter - Kristy Asher RN - 12/23/2015 11:04 AM EDT Left message for Francie about appointment. Asked her to RTC if she has further questions. documented in this encounter Plan of Treatment Not on filedocumented as of this encounter Visit Diagnoses Not on filedocumented in this encounter Care Teams Contractor Buyer Relationship Specialty Start Date End Date Kunal Nesbitt MD PCP - General Family Medicine 06/09/15 04/03/16 documented as of this encounter
--- OUTSIDE RECORDS SUMMARY | 2022-05-27 14:52 | XMS_ITS | Encounter Summary ---
:1960 Author Organization [facility] [place] [address] Care Team Providers Name Role Phone Kunal Nesbitt MD Primary Care Provider Encounter Details Date Type Department Care Team Description 12/20/2015 Telephone Rheumatology at [facility] Patricio Lowe MD [facility] [place] [address] RHEUMATOLOGY DEPT. [phone] [place], [place] [address] (Wo rk) Social History Tobacco [...] this encounter Miscellaneous Notes Telephone Encounter - Patricio Lowe MD - 12/20/2015 8:30 AM EDT I spoke with Ms. Yusuf this morning and obtained a somewhat different story. 1. Her reports of diarrhea are three soft stools a day and these have been ongoing for 3 weeks and seem to be a bit less yesterday and today. There is no nocturnal requirements. 2. Whereas she reports nausea and vomiting with single doses of Azathioprine 50 mg, Mycophenolate 500 mg and MTX 7.5 mg, she took MTX 2.5 mg on Monday am with minimal nausea, no vomiting or change in her diarrhea. 3 She is very anxious about drug toxicity, notably immunosuppression and hair loss. She is also anxious and concerned about her appearance.. Assess: Ms. Yusuf has active lupus. Initiation of steroid sparing agents has been remarkably difficult. MTX is hardly optimal, but at least offers an opportunity. Injectable options are likely to be refused by the patient. Other options include leflunomide, rituximab and cyclophosphamide. Plan 1. Try to taper up MTX as tolerated. Will instruct to take MTX 5 mg (2 T) at bedtime next night and call us with report of nausea, diarrhea on Monday. If tolerated, go to 7.5 mg/week and stay there as tolerated or return to 5 mg/week. 2. Reduce prednisone to 30 mg/d with plan to get down to 20 mg/d for anxiety, jitters 3. F/U by phone in scheduled strategy Patricio Lowe M.D. documented in this encounter Plan of Treatment Not on filedocumented as of this encounter Visit Diagnoses Not on filedocumented in this encounter Care Teams Community Liaison Officer Relationship Specialty Start Date End Date Kunal Nesbitt MD PCP - General Family Medicine 06/09/15 04/03/16 documented as of this encounter
--- OUTSIDE RECORDS SUMMARY | 2022-05-27 14:52 | XMS_ITS | Encounter Summary ---
:1960 Author Organization [facility] [place] [address] Care Team Providers Name Role Phone Kunal Nesbitt MD Primary Care Provider Reason for Referral Consultation (Routine) - Closed Specialty Diagnoses / Procedures Referred By Contact Refer red To Contact Pulmonology Diagnoses Lung involvement in systemic lupus erythematosus NOBLE (dyspnea on exertion) Patricio Lowe MD Enelow, Richard I, MD [facility] RHEUMATOLOGY DEPT. PULMONARY MEDICINE [place], [place] [id number] [place] [id number] Fax: Referral ID Status Reason Start Date Expiration Date Visits V isits Requested Authorized [id number] Closed Consult, 12/29/2015 12/28/2016 1 1 Test & Treat Encounter Details Date Type Department Care Team Description 12/29/2015 Office Visit Rheumatology at [facility] Patricio Lowe, Lung involvement in systemic lupus erythematosus; [facility] NOBLE (dyspnea on exertion) [place] [address] [place] [address] RHEUMATOLOGY DEPT. [place], [place] [address] Social History Tobacco Use Types [...] Sign Reading Time Taken Comments Blood Pressure 148/83 12/29/2015 11:29 AM EDT Pulse 79 12/29/2015 11:29 AM EDT Temperature 36.7 ??C (98.1 ??F) 12/29/2015 11:29 AM EDT Respiratory Rate - - Oxygen Saturation 98% 12/29/2015 11:29 AM EDT Inhaled Oxygen Concentration - - Weight 95.3 kg (210 lb) 12/29/2015 11:29 AM EDT Height 165.1 cm (5' 5) 12/29/2015 11:29 AM EDT Body Mass Index 34.95 12/29/2015 11:29 AM EDT documented in this encounter Patient Instructions Patient InstructionsPatricio Lowe MD - 12/29/2015 12:00 PM EDT 1. Labs today 2. Start Prednisone 20 mg/d tomorrow 3. Return in 6 weeks 4. Start Methotrexate on Monday night with dinner at 3 T (7.5 mg) 5. Hold the Bactrim on Fridays documented in this encounter Progress Notes Patricio Lowe MD - 12/29/2015 7:52 AM EDT Subjective: Patient ID: Francie Yusuf [...] prompting an admission to [facility] where patchy subsegmental opacities were seen in the lung and she was given a course of prednisone 80 mg/d since no obvious infections were noted. She was discharged on 11.12.15. TPMT returned normal. Interval History: She returns in 1 month follow up characterized by multiple phone calls in which she reported GI intolerance of the smallest doses of MMF, AZA and MTX. There has also been an enormous effort to try to help her get past her fears about immunosuppressive elements of these medications. Major Issues: 1. Dyspnea: Worse on Prednisone 30 mg/d. Using inhalers as well. Prior URI finally cleared, saw ENT.Short of breath in the middle of night with minimal activity. Has gained weight. 2. New right sided neck pain with radiation into volar surface of forearm 3. No joint pain. Left knee pain better. Ultrasound for Bakers cyst today Less Acute Issues 1. Left sided chest wall pain: no reports 2. Insomnia/Weight gain: Intermittently poor. 3. LE edema seems controlled: Little bit. Under control. Completely resolved 4. Episode of diverticulitis May 2015 with LLQ pain/anemia: Did not have colonscopy planned for 5. New issue of pain in left calf: With some popliteal tenderness, attributed to sciatica. Going forPT. Thinks it is hurting less Has a PMH of a 'lumbar disc' in that was left sided and improvedwith conservative therapy. 6. 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 No change 7. Increased nasal dryness on certrizine, uses wood stove No arthritis or joint symptoms Review of Systems Constitutional: No fevers, chills, [...] She was transferred to [facility] s/p IR guided drainage of 70cc of [...] NAD. She has gained weight Blood pressure 148/83, pulse 79, temperature 36.7 ??C (98.1 ??F), temperature source Oral, height 165.1 cm (5' 5), weight 95.3 kg (210 lb), SpO2 98 %. Skin exam: No UE bruising . No telangectasias. Brownish elevated plaques on LE, largest is 3 cm across, most are <0.5 cm. These are darkening according to the patient. Normal nailfold exam. No digital ulcers, cuticular overgrowth. There no longer is significant lower extremity swelling. HEENT: moist mucus membranes, +salivary pooling. Mild submandibular tenderness, no parotid enlargement. Neck supple JVD<5 cm. no bruits. Chest: I think she is moving air very well. No obvious wheezing. No longer diffuse sternochondral tenderness, no splinting Cor: RR no rub Joint exam UE joint exam: normal except for marichuy OA. No active synovitis Extremities: edema trace if at all Objective: Last PFTS in showed NE) 75%, FEV1 of 1.86 Assessment and Plan: Lupus pneumonitis responding to high dose steroids, now confounded by intolerance and fear of various medications. It is hard to tell if AZA/MMF were that poorly tolerated. She is willing to try MTX after extensive discussion of risks, benefits. My biggest concern is her weight gain, Cushingoid symptoms with worsening NOBLE, creating concerns that this is non-pulmonary. We need to assess with PFTs Sicca still needs help with lacrimal duct plugging 1. Labs today 2. Reduce prednisone to 20 mg 3. Start MTX 7.5 mg/week, increase as tolerated to 15 mg/week taken on Fridays at dinner 4. Bactrim daily for sinus and PCP issues, hold on Fridays 5. PFTS today 6. Ask Pulmonary for f/u consultation. 7. Cervical radiculopathy: follow Level 5 follow up Patricio Lowe M.D. PFTS today: FEV1 78%, DLCO 82%. These are essentially unchanged from Last PFTS in showed DLCO75%, FEV1 of 1.86 when she was having little or no breathing symptoms. I have to wonder if deconditioning is playing a role here. Labs improved as well. Will send letter summarizing these findings Recent Results (from the past 24 hour(s)) Sedimentation rate Result Value Ref Range Sed Rate 6 0 - 20 mm/hr Hemogram Result Value Ref Range WBC 17.0 (H) 4.0 - 10.0 x10(3)/mcL RBC 5.24 (H) 3.93 - 5.22 x10(6)/mcL Hemoglobin 15.1 11.2 - 15.7 gm/dL Hematocrit 43.0 34.0 - 45.0 % MCV 82.1 79.0 - 94.0 fL MCH 28.8 26.6 - 32.2 pg MCHC 35.1 32.0 - 36.5 gm/dL Platelets 283 145 - 370 x10(3)/mcL RDWSD 44.7 35.0 - 46.0 fL RDWCV 15.1 (H) 10.9 - 14.4 % MPV 9.5 9.0 - 12.0 fL Differential, Automated Result Value Ref Range Neutrophils % 91.7 % Neutr Abs (ANC) 15.56 (H) 1.50 - 6.30 x10(3)/mcL Lymphocytes % 5.2 % Lymphocytes Abs 0.9 (L) 1.0 - 3.6 x10(3)/mcL Monocytes % 2.1 % Monocyte Abs 0.4 0.2 - 1.0 x10(3)/mcL Eosinophils % 0.1 % Eosinophils Abs 0.0 0.0 - 0.5 x10(3)/mcL Basophils % 0.1 % Basophils Abs 0.0 0.0 - 0.2 x10(3)/mcL Immature Gran % 0.80 % Cheryl Gran Abs 0.13 (H) 0.00 - 0.05 x10(3)/mcL documented in this encounter Miscellaneous Notes Addendum Note - Rosibel Ortiz - 12/29/2015 12:49 PM EDT Addended by: ROSIBEL ORTIZ on: 12/29/2015 12:49 PM Modules accepted: Orders documented in this encounter Plan of Treatment Scheduled Referrals Name Type Priority Associated Diagnoses Order S chedule Referral to Outpatient Referral Routine Lung involvement in O rdered: Pulmonology systemic lupus 12/29/2015 erythematosus NOBLE (dyspnea on exertion) documented as of this encounter Procedures Procedure Name Priority Date/Time Associated Diagnosis Comme nts HEMOGRAM Routine 12/29/2015 12:49 Lung involvement in Resu lts for this PM EDT systemic lupus procedure are in erythematosus the results section. DIFFERENTIAL, Routine 12/29/2015 12:49 Lung involvement in Res ults for this AUTOMATED PM EDT systemic lupus procedure are in erythematosus the results section. SEDIMENTATION RATE Routine 12/29/2015 12:49 Lung involvement i n Results for this PM EDT systemic lupus procedure are in erythematosus the results section. CBC (WITH DIFF) Routine 12/29/2015 12:49 Lung involvement in PM EDT systemic lupus erythematosus COMPREHENSIVE Routine 12/29/2015 12:49 Lung involvement in Res ults for this METABOLIC PANEL PM EDT systemic lupus procedure are in (NON-FASTING) [...] is normal. Patricio Lowe MD PFT ORDERABLES (ABNORMAL) Differential, Automated (12/29/2015 12:49 PM EDT) [facility] gist Method Time Signature Neutrophils % 91.7 % [facility] Neutr Abs (ANC) 15.56 (H) 1.50 - [facility] 6.30 [facility] x10(3)/[facility] L LABORATORY Lymphocytes % 5.2 % [facility] Lymphocytes Abs 0.9 (L) 1.0 - 3.6 [facility] x10(3)/[facility] LABORATORY Monocytes % 2.1 % [facility] Monocyte Abs 0.4 0.2 - 1.0 [facility] x10(3)/[facility] LABORATORY Eosinophils % 0.1 % [facility] Eosinophils Abs 0.0 0.0 - 0.5 [facility] x10(3)/[facility] LABORATORY Basophils % 0.1 % [facility] Basophils Abs 0.0 0.0 - 0.2 [facility] x10(3)/[facility] LABORATORY Immature Gran % 0.80 % [facility] Comment: Immature granulocytes(IG's)percentage an d absolute count will include metamyelocytes, myelocytes, and promyelo cytes. Blood smears from CBCs yielding IG's will be scanned manually for concor dance. If this scan disagrees with the automated IG or if promyelocytes are not ed, a manual differential will be performed. Cheryl Gran Abs 0.13 (H) 0.00 - 0.05 x10(3)/[facility] LABORATORY Specimen Anatomical Collection Method Collection Time Receive d Time (Source) Location / / Volume Laterality Blood specimen 12/29/2015 12:49 6 1:05 (specimen) PM EDT PM EDT Resulting Agency Comment Spec In Lab Patricio Lowe MD HEMATOLOGY ORDERABLES Performing Organization Address City/State/[place] [address] (ABNORMAL) Hemogram (12/29/2015 12:49 PM EDT) P athologist Signature WBC 17.0 (H) 4.0 - 10.0 [facility] x10(3)/[facility] LABORATORY RBC 5.24 (H) 3.93 - [facility] 5.22 [facility] x10(6)/[facility] LABORATORY Hemoglobin 15.1 11.2 - [facility] gm/dL [facility] LABOR[facility]ORY Hematocrit 43.0 34.0 - [facility] 45.0 % [facility] MCV 82.1 79.0 - [facility] 94.0 fL [facility] MCH 28.8 26.6 - [place] 32.2 pg [facility] MCHC 35.1 32.0 - [place] 36.5 gm/dL [facility] Platelets 283 145 - 370 [place] x10(3)/[facility] LABORATORY RDWSD 44.7 35.0 - [place] 46.0 [facility] LABORATORY RDWCV 15.1 (H) 10.9 - [facility] 14.4 % [facility] LABORATORY MPV 9.5 9.0 - 12.0 [facility] LABORATORY Specimen Anatomical Collection Method Collection Time Receive d Time (Source) Location / / Volume Laterality Blood specimen 12/29/2015 12:49 6 1:05 (specimen) PM EDT PM EDT Resulting Agency Comment Spec In Lab Patricio Lowe MD HEMATOLOGY ORDERABLES Performing Organization Address City/State/[place] [address] (ABNORMAL) Comprehensive metabolic panel (non-fasting) (12/29/2015 12:49 PM EDT) athologist Signature Glucose Lvl 129 65 - 199 [facility] mg/dL [facility] Comment: Diabetes: >=200 mg/dL plus symp toms BUN 14 8 - 18 mg/dL [facility] Creatinine 0.96 0.70 - 1.20 mg/dL [facility] Comment: Please note that the pediatric reference intervals supplied above were not validated at [facility]. Results from pediatri c patients should be interpreted in conjunction to the patient's age, height and muscle mass. Sodium 143 135 - 145 mmol/L [facility] Potassium 4.0 3.5 - 5.0 mmol/L [facility] Comment: Please note: ??Patients with WBC >100,00 0 may have falsely elevated Potassium levels. ??For accurate Potassium quantif ication in these patients send serum separator tube (gold top) for subsequent determinations. ??Contact the Clinical Chemistry Laboratory if there are any qu estions. Chloride 98 98 - 107 mmol/L [facility] CO2 26 22 - 31 mmol/L [facility] Anion Gap 19 (H) 5 - 15 mmol/L [facility] Calcium 8.8 8.5 - 10.5 mg/dL [facility] Total Protein 6.9 6.1 - 8.0 gm/dL [facility]OR[facility] Albumin 4.5 3.2 - 5.2 gm/dL [facility] AST 18 0 - 30 unit/L [facility] ALT 23 0 - 30 unit/L [facility] Alk Phos 63 40 - 104 unit/L [facility] Total Bilirubin 0.3 0.2 - 1.3 mg/dL [facility] Bili, Direct 0.1 0.0 - 0.3 mg/dL [facility] Estimated GFR >60 >=60 [facility] Comment: This estimated GFR [...] the following links into your internet browser. [email or web address] [email or web address] Specimen Anatomical Collection Method Collection Time Receive d Time (Source) Location / / Volume Laterality Blood specimen 12/29/2015 12:49 6 1:05 (specimen) PM EDT PM EDT Resulting Agency Comment Spec In Lab Patricio Lowe MD CHEMISTRY ORDERABLES Performing Organization Address City/State/[place] [address] Sedimentation rate (12/29/2015 12:49 PM EDT) P athologist Signature Sed Rate 6 0 - 20 [facility] mm/hr [facility] Specimen Anatomical Collection Method Collection Time Receive d Time (Source) Location / / Volume Laterality Blood specimen 12/29/2015 12:49 6 1:05 (specimen) PM EDT PM EDT Resulting Agency Comment Spec In Lab Patricio Lowe MD HEMATOLOGY ORDERABLES Performing Organization Address City/State/ZIP Code Phon e Number [place] [id number] documented in this encounter Visit Diagnoses Diagnosis Lung involvement in systemic lupus eryth ematosus Systemic lupus erythematosus NOBLE (dyspnea on exertion) Other dyspnea and respiratory abnormalit y NOBLE (dyspnea on exertion) Other dyspnea and respiratory abnormalit y documented in this encounter Care Teams Net Software Architect Relationship Specialty Start Date End Date Kunal Nesbitt MD PCP - General Family Medicine 06/09/15 04/03/16 documented as of this encounter
--- OUTSIDE RECORDS SUMMARY | 2022-05-27 14:52 | XMS_ITS | Encounter Summary ---
:1960 Author Organization [facility] [place] [address] Care Team Providers Name Role Phone Kunal Nesbitt MD Primary Care Provider Encounter Details Date Type Department Care Team Description 12/16/2015 Telephone Rheumatology at [facility] [place] [address] Social History Tobacco Use Types Packs/Day [...] this encounter Miscellaneous Notes Telephone Encounter - Lorena Jessica RN - 12/23/2015 9:02 AM EDT Called Francie and left message that Dr. Lowe will see her on 12/29/15 at 11:30 and will discuss her concerns at that visit. Asked her to call back if she has additional questions. Telephone Encounter - Lorena Jessica RN - 12/22/2015 2:23 PM EDT Francie called and left message that she can't possibly come in on Monday to see Dr. Lowe, but she does have an appointment with him on 12/29/15. Telephone Encounter - Lorena Jessica RN - 12/22/2015 10:14 AM EDT Francie called and left message that she is returning call to [place] from yesterday. Called Francie back and left message that Dr. Lowe can see her on 12/25/15 at 9:00 am. Also offered options of second opinions per his note below. Asked Francie to call back and confirm appointment for Monday. Telephone Encounter - Ina Espinoza LPN - 12/21/2015 10:[address] Lowe can see her on Monday just schedule her then. ??She sounds complicated and might do better with a provider who knows her case. ? Daisy Message above from Halina Kamara NP. Telephone Encounter - Ina Espinoza LPN - 12/21/2015 10:19 AM EDT 10:20 AM called and L/M for Ms. Yusuf to [facility]. Telephone Encounter - Patricio Lowe MD - 12/21/2015 10:04 AM EDT Thank you for the note. It is clear that she is having concerns that have not been addressed by multiple phone calls including my speaking with her for 30 minutes yesterday (Monday). She has lupus pneumonitis and is on HCQ/steroids and intolerant or anxious about all medicines. It requires treatment other than steroids. I would offer her being seen by Ms. Kamara to go over things with her this week or I can see her this Monday at 9am. I copy Ms. Kamara and Dr. Nesbitt. If she wouldlike a second opinion, we can arrange for her with one of my colleagues or she can go to [facility] or [place]. Patricio Lowe Telephone Encounter - Ina Espinoza LPN - 12/21/2015 9:01 AM EDT 8:05 AM call comes into the nursing line from Ms. Yusuf. She said she spoke with Dr. Lowe yesterday.Ms. Yusuf said she is very upset. She takes methotrexate and she has had issues with it since she first started the medication. She has had vomiting and diarrhea at the beginning and she has a cold now. Ms. Yusuf states on the information if there is issues to call the doctor. Ms. Yusuf said she is concerned since she has alot of sweating, she can't drink alcohol, she's not to be in the sun and she loves being in it. Ms. Yusuf said she doesn't know why she can't take another medication. This medication can cause issues with bleeding and bruising which Ms. Yusuf stated she has issues with already Ms. Yusuf said Methotrexate is scaring her to and doesn't know why she can't stop it? Ms. Limaid I'm not lying about this and something is going on. Message forwarded to Dr. Lowe. Telephone Encounter - Ina Espinoza LPN - 12/18/2015 3:20 PM EDT Francie RTC to this office. Called and spoke with Francie and she said she is having lots of diarrhea, she has no fevers but she's hot and sweaty with the jitters and she is currently on 40 mg of Prednisone for 2 weeks and didn't take her Methotrexate today today not sure if it that med that is making her feel this way? She went to the PCP for a cough and cold with chest discomfort, Sob and coughing up tinted green phlegm chest xray normal but the doctor didn't put her on an ATB since she is currently taking a low dose of Bactrim. Message forwarded to Dr. Lowe. Telephone Encounter - Ina Espinoza LPN - 12/18/2015 12:03 PM EDT Francie calls and said she can't take the medication it make her sick and she has a cold a bad one.She is SOB so she went to the PCP and had chest xray it was normal. Francie would like a medication that doesn't make her sick and won't bother her immune system. Called and L/M for a RTC. Telephone Encounter - Susan Mark RN - 12/16/2015 8:58 AM EDT Spoke with Francie about reducing her MTX as per Dr. Lowe: try taking 1 tablet of MTX (2.5 mg) this Monday and see how she does Patient verbalized understanding and will call us again on Monday to update us. documented in this encounter Plan of Treatment Not on filedocumented as of this encounter Visit Diagnoses Not on filedocumented in this encounter Care Teams Battery Assembler Dry Cell Relationship Specialty Start Date End Date Kunal Nesbitt MD PCP - General Family Medicine 06/09/15 04/03/16 documented as of this encounter
--- OUTSIDE RECORDS SUMMARY | 2022-05-27 14:52 | XMS_ITS | Encounter Summary ---
:1960 Author Organization [place] [address] Care Team Providers Name Role Phone Kunal Nesbitt MD Primary Care Provider Reason for Visit Reason Comments Sicca Syndrome (Sjogren's) SENT BY DR. LOWE RHEUMATOL OGY Consultation (Routine) - Closed Specialty Diagnoses / Procedures Referred By Contact Refer red To Contact Ophthalmology Diagnoses Sicca syndrome Patricio Lowe MD Miller, Donald M, MD [facility] R[facility] DE[facility]. [place] [address] [place] [address] Fax: Referral ID Status Reason Start Date Expiration Date Visits V isits Requested Authorized [id number] Closed Consult, 11/23/2015 11/22/2016 1 1 Test & Treat Encounter Details Date Type Department Care Team Description 02/08/2016 Office Visit Ophthalmology [facility] Andres Lester Keratoconjunctivitis sicca d ue to decreased tear production, bilateral; [facility] MD Roselia Amblyopia, left eye; [facility] Anisometropia [facility] [phone] OPHTHALMOLOGY [phone] [place] [address] Social History Tobacco Use Types Packs/Day Years [...] documented as of this encounter Progress Notes Andres Lester MD - 02/08/2016 10:32 AM EDT Assessment/Plan: Francie Yusuf is a 55 y.o. female with the following ophthalmic issues: 1. 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 Rec: ATs WC [place] 3s Restasis 2/2 Punctal plugs Ophthalmology Minor Procedure Note: Pre-op diagnosis: dry eye OD OS Post-op diagnosis: same Name of Procedure: placement of punctal plugs RLL LLL Description: Verbal consent. Patient at slit lamp. Topical proparacaine and betadine drops. Using the consulting project director's insertion device, punctal plugs were inserted into the lacrimal puncti as indicated above. Follow up visit scheduled. Plug type: [place] Flex plug (silicone) Size: 0.5mm Ref: [id number] Lot: [id number] Complications: none documented in this encounter Plan of Treatment Not on filedocumented as of this encounter Visit Diagnoses Diagnosis Keratoconjunctivitis sicca due to decrea sed tear production, bilateral Amblyopia, left eye Amblyopia, unspecified Anisometropia documented in this encounter Care Teams Land Classifier Relationship Specialty Start Date End Date Kunal Nesbitt MD PCP - General Family Medicine 06/09/15 04/03/16 documented as of this encounter
--- OUTSIDE RECORDS SUMMARY | 2022-05-27 14:52 | XMS_ITS | Encounter Summary ---
:1960 Author Organization [facility] [place] [address] Care Team Providers Name Role Phone Unknown Primary Care Provider Unavailable Reason for Visit Reason Onset Date Comments Other 07/18/2016 Appointment Encounter Details Date Type Department Care Team Description 07/18/2016 Telephone Rheumatology at [facility] Kristy Asher RN Other (Appointment) [place] [address] Social History Tobacco Use Types Packs/Day [...] Telephone Encounter - Kristy Asher RN - 07/18/2016 11:11 AM EST Francie calls nurse line to reschedule appointment with Dr. Lowe because she is not able to get in again until September. She would like to reschedule and see Opthalmology on the same day. Cancelled appointment due to weather. documented in this encounter Plan of Treatment Not on filedocumented as of this encounter Visit Diagnoses Not on filedocumented in this encounter Care Teams Clothing Designer Relationship Specialty Start Date End Date Unknown PCP - General 04/04/16 09/18/16 None documented as of this encounter
--- OUTSIDE RECORDS SUMMARY | 2022-05-27 14:53 | XMS_ITS | Encounter Summary ---
:1960 Author Organization [facility] [place] [address] Care Team Providers Name Role Phone Kunal Nesbitt MD Primary Care Provider Encounter Details Date Type Department Care Team Description 09/09/2015 Hospital Encounter Pulmonology at [facility] [place] [address] Social History Tobacco Use Types Packs/Day Years Used Date Former Smoker Cigarettes 1.5 Quit: 08/14/18 93 Smokeless Tobacco: Never Used Alcohol Use Standard Drinks/Week Comments Yes 1 (1 standard drink = 0.6 oz pure [...] Sig Dispensed Refills Start Date End Date fluticasone (FLOVENT) 220 Inhale 2 puffs 0 [...] 20 mg by 0 tablet mouth nightly. levothyroxine (SYNTHROID) Take 125 mcg by 0 08/2511/05/2015 125 mcg Tablet mouth every morning. predniSONE (DELTASONE) 5 mg Take 5 mg by 0 11/09/2015 Tablet mouth daily. ibuprofen (ADVIL;MOTRIN) 800 Take 1 tablet by 30 tablet 12 0 05/03/2015 02/04/2016 mg Tablet mouth every 8 hours as needed for Pain. hydroxychloroquine Take 1 tablet by 60 tablet 3 04/07/2015 10/08/2015 (PLAQUENIL) 200 mg Tablet mouth 2 times daily. hydrochlorothiazide daily. 0 02/03/201504/25 (HYDRODIURIL) 25 mg Tablet levothyroxine (SYNTHROID) Take 125 mcg by 0 11/05/2015 112 mcg Tablet mouth daily. acetaminophen (TYLENOL EXTRA Take by mouth as 0 0 01/13/2011 02/22/2017 STRENGTH) 500 mg tablet needed. Reported on 09/19/2016 documented as of this encounter Procedure Notes Jarett Marcelo Jr., MD - 09/11/2015 8:22 AM ESTAssociated Order(s): PULMONARY FUNCTION TEST Pulmonary Function Testing Spirometry is borderline normal. There is no significant change following inhaled bronchodilator therapy. Jarett Marcelo MD Pulmonary Medicine documented in this encounter Plan of Treatment Not on filedocumented as of this encounter Procedures Procedure Name Priority Date/Time Associated Diagnosis Comme nts PULMONARY FUNCTION Routine 09/11/2015 8:23 AM Chronic obstruct danika Results for this TEST EST asthma procedure are i n the results section. documented in this encounter Results Pulmonary Function Testing (09/11/2015 8:23 AM EST) Narrative Jarett Marcelo Jr., MD - 09/11/2015 8: 23 AM EST Jarett Marcelo Jr., MD ? 09/11/2015 ??8:23 AM Pulmonary Function Testing Spirometry is borderline normal. ??There is no significant change following inhaled bronchodilator therapy . ?? Jarett Marcelo MD Pulmonary Medicine Raegan Del Rio MD PFT ORDERABLES documented in this encounter Visit Diagnoses Diagnosis Chronic obstructive asthma Chronic obstructive asthma, unspecified documented in this encounter Care Teams Degreaser Operator Relationship Specialty Start Date End Date Kunal Nesbitt MD PCP - General Family Medicine 06/09/15 04/03/16 documented as of this encounter
--- OUTSIDE RECORDS SUMMARY | 2022-05-27 14:53 | XMS_ITS | Encounter Summary ---
:1960 Author Organization [place] [address] Care Team Providers Name Role Phone Marvel Rico MD Primary Care Provider Reason for Visit Reason Comments Follow-up Auth/Cert - Closed Specialty Diagnoses / Procedures Referred By Contact Refer red To Contact Diagnoses cutaneous amyloid with lymphoid infiltrate Procedures ([facility] MSURG) BONE MARROW ASP PERFORMED W/BX THRU BX INCISION Referral ID Status Reason Start Date Expiration Date Visits Requ ested Visits Authorized [id number] Closed 1 1 Encounter Details Date Type Department Care Team Description 06/09/2015 Office Visit Hematology and Oncology Farzaneh Rouse APRN [facility] [address] HEMATOLOGY/[place] [address] Amyloid disease at [facility] Farzaneh Valera MD [facility] HEMATOLOGY/[place] [address] [place] [address] Social History Tobacco Use Types Packs/Day [...] Sign Reading Time Taken Comments Blood Pressure 142/75 06/09/2015 9:26 AM EDT Pulse 72 06/09/2015 9:26 AM EDT Temperature 36 ??C (96.8 ??F) 06/09/2015 9:26 AM EDT Respiratory Rate 18 06/09/2015 9:26 AM EDT Oxygen Saturation 99% 06/09/2015 9:26 AM EDT Inhaled Oxygen Concentration - - Weight 91 kg (200 lb 9.9 oz) 06/09/2015 9:26 AM EDT Height 164.5 cm (5' 4.76) 06/09/2015 9:26 AM EDT Body Mass Index 33.63 06/09/2015 9:26 AM EDT documented in this encounter Progress Notes Farzaneh Rouse, SITE MONITOR - 06/09/2015 9:33 AM EDT Hematology Clinic [place] [id number] FOLLOW-UP PATIENT EVALUATION PROBLEM LIST: Patient Active Problem List Diagnosis ??? Cardiac tamponade ??? Acute bloody pericarditis ??? Supratherapeutic INR ??? Pleural effusion ??? S/P complete thyroidectomy ??? Amyloidosis cutis ??? 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 Followed by [facility] and [facility]. W/U to date w/ neg ECHO at [facility]. CT w/ one para-aortic 2cm LN which we will follow. Neg SPEP and 24 hour urine at [facility]. Neg fat pad biopsy. BMBx not yet [...] In addition, there is superficial anddeep perivascular Gamerco+, Lambda- plasma cell infiltrate. Please correlate with [...] this case and concur with this diagnosis. ??? Thyroid nodule ??? Lumbar disc herniation [...] Miscarriage One INTERIM HISTORY OF PRESENT ILLNESS: It was my pleasure to meet Francie Janet Yusuf in clinic today. She is here for an H + P prior to undergoing a sedated bone marrow biopsy with aspiration to evaluate the status of her amyloid. Doing ok. This past Monday she was evaluated in her local ED with abdominal pain and cramping and was diagnosed with Diverticulitis. She is currently on 2 antibiotics and the pain is much better, although she feels bloated. No fevers or shaking chills. Her bowels have been variable, between constipation and diarrhea. No new cutaneous amyloid lesions. Breathing has been stable, espeically while being on Prednisone since this past January after being diagnosed with pericarditis. Her current Pred dose is 10mg/day with the plan to taper her down to 5mg/day. She did receive a flu shot. Appetite is maintained. No bleeding or spontaneous bruising. ROS Energy level:stable Pain: See HPI Appetite:good Fevers/chills/sweats:No Bruising/bleeding/melena:No Recent infections:No HEENT: negative Nausea/vomiting/diarrhea/constipation: bowels are variable SOB/NOBLE/chest pain:No Change in adenopathy or other masses:No Unexpected weight loss or gain:No Skin rashes or petechiae:No new cutaneous amyloid lesions Musculoskeletal complaints:No Extremities: Negative upper and lower bilaterally Neurologic symptoms:No Mood: Normal Sleep: No difficulty sleeping MEDS: Outpatient Prescriptions Marked as Taking for the 06/09/15 encounter (Office Visit) with Farzaneh Rouse APRN Medication Sig Dispense Refill ??? metroNIDAZOLE (FLAGYL) 500 mg Tablet Take 500 mg by mouth 3 times daily. ??? ciprofloxacin HCl (CIPRO) 500 mg Tablet Take 500 mg by mouth 2 times daily. ??? ibuprofen (ADVIL;MOTRIN) 800 mg Tablet Take 1 tablet by mouth every 8 hours as needed for Pain. 30 tablet 12 ??? predniSONE (DELTASONE) 10 mg Tablet Take 2 tablets by mouth daily for 1 week followed by 1 tablet by mouth 28 tablet 2 ??? hydroxychloroquine (PLAQUENIL) 200 mg Tablet Take 1 tablet by mouth 2 times daily. 60 tablet 3 ??? hydrochlorothiazide (HYDRODIURIL) 25 mg Tablet daily. 0 ??? cetirizine (ZYRTEC) 10 mg Tablet Take 10 mg by mouth daily. ??? aspirin 81 mg Tablet, Delayed Release (E.C.) Take 1 tablet by mouth daily. ??? levothyroxine (SYNTHROID) 112 mcg Tablet Take 125 mcg by mouth daily. ??? simvastatin (ZOCOR) 20 mg tablet Take 20 mg by mouth nightly. Allergies: No Known Allergies INTERIM SOCIAL HISTORY Changes in job, home situation, tobacco or alcohol use: see HPI PHYSICAL EXAM BP 142/75 mmHg Pulse 72 Temp(Src) 36 ??C (96.8 ??F) (Temporal) Resp 18 Ht 164.5 cm (5' 4.76) Wt 91 kg (200 lb 9.9 oz) BMI 33.63 kg/m2 SpO2 99% Body surface area is 2.04 meters squared. GENERAL: Francie Yusuf appears well and is in no acute distress. ENT: Oral pharynx clear. EYES: MICHAEL NECK: Supple without adenopathy. AXILLARY: no adenopathy OTHER LYMPH: no adenopathy CARDIAC: Regular rate and rhythm without S3,S4 or murmurs. LUNGS: Clear to auscultation. ABDOMEN: Soft and non-tender without hepatosplenomegaly or masses. EXTREMITIES: No cyanosis, clubbing, edema or calf tenderness. SKIN: Healed amyloid lesions contained to LEs NEUROLOGICAL: Alert and oriented to person, place and time. MUSCULOSKELETAL: No spinal or chest wall tenderness. LINE: na LABORATORY STUDIES No results found for this or any previous visit (from the past 72 hour(s)). RADIOLOGY STUDIES REVIEWED: none ASSESSMENT: Francie Yusuf is a delightful 55yo female with a hx of cutaneous amyloidosis. She also has an extensive medical history. She is here for a sedated bone marrrow aspirate with sedation to evaluate the status of her amyloid. She is clinically stable today to proceed with the scheduled procedure. Tolerated her previous sedated marrow. Last time she ate was 20:00 on 06/08/15. Alcohol intake is infrequent. Consent has been discussed and patient has signed it. Francie is a Full Code. PLAN: 1. Proceed with sedated bone marrow biopsy/aspirate. 2. I will call Francie with the results. Farzaneh Rouse, MSN, SITE MONITOR Nurse Practitioner Section of Hematology/Oncology [facility] Office phone: Copy MARVEL RICO MD (General) documented in this encounter Plan of Treatment Not on filedocumented as of this encounter Visit Diagnoses Diagnosis Amyloid disease Amyloidosis, unspecified documented in this encounter Care Teams Freelance Director Relationship Specialty Start Date End Date Marvel Rico MD PCP - General Family Medicine 06/09/15 04/03/16 documented as of this encounter
--- OUTSIDE RECORDS SUMMARY | 2022-05-27 14:53 | XMS_ITS | Encounter Summary ---
:1960 Author Organization [facility] Address [address] [address] Care Team Providers Name Role Phone Kunal Nesbitt MD Primary Care Provider Reason for Visit Auth/Cert - Closed Specialty Diagnoses / Procedures Referred By Contact Refer red To Contact Diagnoses cutaneous amyloid with lymphoid infiltrate Procedures ([facility] MSURG) BONE MARROW ASP PERFORMED W/BX THRU BX INCISION Referral ID Status Reason Start Date Expiration Date Visits Requ ested Visits Authorized [id number] Closed 1 1 Encounter Details Date Type Department Care Team Description 06/09/2015 Surgery Outpatient Surgery Farzaneh Valera ([facility]URG) BONE MARROW Center Raegan Veloz MD ASP PERFORMED W/BX THRU [facility] DR PERALTA INCISION (WRVU 0.16) [facility] HEMATOLOGY/[place] [address] [place] [address] [phone] (Wo rk) Social History Tobacco Use Types [...] Sign Reading Time Taken Comments Blood Pressure 120/61 06/09/2015 11:53 AM EDT Pulse 82 06/09/2015 11:53 AM EDT Temperature 36.1 ??C (97 ??F) 06/09/2015 10:54 AM EDT Respiratory Rate 16 06/09/2015 11:53 AM EDT Oxygen Saturation 94% 06/09/2015 11:53 AM EDT Inhaled Oxygen Concentration - - Weight 90.7 kg (200 lb) 06/09/2015 10:54 AM EDT Height 162.6 cm (5' 4) 06/09/2015 10:54 AM EDT Body Mass Index 34.33 06/09/2015 10:54 AM EDT documented in this encounter Discharge Instructions Discharge InstructionsBipin Carbone RN - 06/09/2015 10:59 AM EDT OUTPATIENT SURGERY POST-OPERATIVE INSTRUCTIONS BONE MARROW BIOPSY SITE 1. You have had a bone marrow aspiration and or/biopsy, which is like having an operation with a tiny, deep incision. 2. Do Not do any strenuous work today, like housework, yard work, sports of any kind or lifting morethan 5 pounds as it may cause your bone marrow site to bleed. 3. To avoid infection, leave the clear plastic dressing on the site for three days. You may shower, bathe, or swim as you wish, provided the clear dressing remains intact, and all sides of the dressingare firmly adhered to the skin. In the unlikely event that a portion or the entire dressing should come off, you may replace it with a conventional cloth band aid. However, you will no longer be able to get the site wet until three days have passed, as a conventional band aid is not waterproof and thesite is no longer a sterile area. 4. It is not unusual for the site to leak a scant amount of blood, so do not be alarmed to see a small collection, or ???puddle?? of blood under the dressing. Wound healing will still occur. 5. If you are uncertain if there is an increase in any leaking from your bone marrow site, roll up atowel, lie down on a firm surface, place the towel directly under the puncture site to apply pressure, and rest there for one half hour. Direct, FIRM thumb pressure applied to the site for 10 minutes works well as an alternative method. Leave the dressing on. 6. Most people do not experience much discomfort after this procedure, but if you do, you should askyour physician what to take. AVOID ASPIRIN PRODUCTS as these interfere with clotting. 7. After three days, remove your dressing and leave it off, so the air can get to the site to finishthe healing process. 8. NOTIFY YOUR DOCTOR FOR: a. Redness b. Heat c. Fever d. Swelling e. Drainage f. Increased pain g. Foul odor (which may not be apparent through the dressing) If you are having problems or have any additional concerns or questions: Between 8am and 5pm - Call the Hematology Clinic at . After 5pm or on a weekend: Call the [facility] carbon paper machine operator at and ask for the physician personal care worker covering for your doctor. Instructions following sedation You may have received medication before and/or during your procedure, which affects judgement and reaction time. Use caution with stairs. Do not drive, operate machinery, drink alcoholic beverages, or make any legal decisions for 24 hours. You may eat a regular diet as tolerated. Do not smoke if you are alone. IV site -- slight redness, or tenderness is normal, you can use a warm compress. If tenderness and redness increases or foul drainage occurs, please contact your [facility] [address] ??? [place] [address] ??? [phone] ??? [email or web address] [email or web address] [employer] ??? [facility] ??? [facility] ??? .[facility] documented in this encounter Medications at Time of Discharge Medication Sig Dispensed Refills Start Date End Date cetirizine (ZYRTEC) 10 mg Take 10 mg [...] 20 mg by 0 tablet mouth nightly. metroNIDAZOLE (FLAGYL) 500 Take 500 mg by 0 07/06/2015 mg Tablet mouth 3 times daily. ciprofloxacin HCl (CIPRO) Take 500 mg by 0 07/06/2015 500 mg Tablet mouth 2 times daily. ibuprofen (ADVIL;MOTRIN) 800 Take 1 tablet by 30 tablet 12 0 05/03/2015 02/04/2016 mg Tablet mouth every 8 hours as needed for Pain. predniSONE (DELTASONE) 10 mg Take 2 tablets by 28 tablet 2 05/03/2015 07/06/2015 Tablet mouth daily for 1 week followed by 1 tablet by mouth hydroxychloroquine Take 1 tablet by 60 tablet 3 04/07/2015 10/08/2015 (PLAQUENIL) 200 mg Tablet mouth 2 times daily. ipratropium (ATROVENT) 0.06 1 03/16/20 15 09/09/2015 % [place], Non-Aerosol hydrochlorothiazide daily. 0 02/03/201504/25 (HYDRODIURIL) 25 mg Tablet levothyroxine (SYNTHROID) Take 125 mcg by 0 11/05/2015 112 mcg Tablet mouth daily. Levalbuterol Tartrate 45 Inhale 1-2 puffs 0 09/09/2015 mcg/actuation HFA Aerosol into the lungs Inhaler every 4 hours as needed for Wheezing. acetaminophen (TYLENOL EXTRA Take by mouth as 0 0 01/13/2011 02/22/2017 STRENGTH) 500 mg tablet needed. Reported on 09/19/2016 documented as of this encounter H&P Notes Shantelle Ricahrds APRN - 06/09/2015 11:23 AM EDT Images from the original note were not included. 06/09/15 Pre-Sedation Assessment: Planned procedure: Unilateral Bone Marrow Aspirate with Biopsy Indications: Amyloid - assess disease status Diagnosis: amyloid Assessment Cardiovascular: Rhythm: Regular Rate: Normal Pulmonary: Breath sounds clear to auscultation ASA: 3. Severe systemic disease Mallampati: Class 2: Upper half of tonsil fossa visible H&P reviewed: Yes Relevant diagnostic studies: None Confirm NPO status: Yes, Date and Time of last intake: 06/08/15 @2000 History of anesthetic complications: No Current medications reviewed: Yes Allergies reviewed: Yes Alcohol use: rare Date and Time of last drink: can not recal Drug use: None Sedation Plan: moderate (conscious sedation) The sedation plan, its benefits and risks, and alternatives were discussed with the patient. The planned procedure, its benefits and risks, and alternatives were discussed with the patient. Thepatient consented to the procedure. Discharge to: Home Shantelle Richards, MSN, MULTIGRAPHER Nurse Practitioner Section of Hematology/Oncology [facility] Office phone: documented in this encounter Procedure Notes Shantelle Richards APRN - 06/09/2015 11:41 AM EDTAssociated Order(s): ([facility]) UNILAT BONE MARROW BIOSPY; ([facility])BONE MARROW ASP PERFORMED W/BX THRU BX INCISION BONE MARROW BIOPSY AND ASPIRATION PROCEDURE NOTE Bone Marrow Biopsy & Aspiration with Conscious Sedation - Unilateral Date/Time of Procedure: 06/09/2015 Proceduralist: Shantelle Richards, RN, MS, PRACTICE PROFESSIONAL DIAGNOSIS: Amyloid Pre-Procedure: (x) Consent signed and on chart. (x) CBC drawn within 3 days. (x) Medications/Allergies/Problem List reviewed. (x) H & P complete Prior to start of procedure the following is verified in a TIME OUT: (x) Patient identity (x) Planned procedure (x) Safety concerns IV ACCESS: Per sedation RN PAIN INTERVENTION: Per sedation RN Sterile Condition: Chlorohexidine/betadine was used to sterilize the area. Sterile drapes were used to create a sterile field. Local Anesthesia: 1% Lidocaine 25 cc's. PROCEDURE: A bone marrow biopsy and aspiration was performed on the right posterior iliac crest. Pressure applied to site(s) for at least 20 minutes following the procedure and Tegaderm placed. Estimated Blood Loss: minimal Complications: none POST INTERVENTION CARE & PAIN ASSESSMENT: Per [facility] nurses. Follow-up: Written/Verbal instructions for site care given to patient per [facility] nurses. Follow-up with Physician as instructed. documented in this encounter Plan of Treatment Not on filedocumented as of this encounter Procedures Procedure Name Priority Date/Time Associated Comments Diagnosis CHROMO REPORT ACQUIRED Routine 06/09/2015 3:03 Re sults for this PM EDT procedure are i n the results section. ([facility])BONE MARROW Routine 06/09/2015 11:42 R esults for this ASP PERFORMED W/BX THRU AM EDT proc edure are in BX INCISION the results section. ([facility]) BONE MARROW Routine 06/09/2015 11:42 Results for this BIOPSY; DIAGNOSTIC AM EDT procedure are in the results section. IMMUNOPHENOTYPING FLOW Routine 06/09/2015 11:40 R esults for this CYTOMETRY AM EDT procedure are i n the results section. BONE MARROW FINAL REPORT Routine 06/09/2015 11:40 Results for this AM EDT procedure are i n the results section. IRON STAIN, BONE MARROW Routine 06/09/2015 11:40 Amyloid osis cutis Results for this AM EDT Amyloidosis procedure are in Antiphospholipid the results antibody syndrome section. BONE MARROW PANEL Routine 06/09/2015 11:40 Amyloidosis c utis ([facility]) AM EDT Amyloidosis Antiphospholipid antibody syndrome ([facility] BONE MARROW 06/09/2015 11:28 cutaneous misty loid BIOPSY; DIAGNOSTIC (WRVU AM EDT with lymphoid 1.37) infiltrate ([facility]) BONE MARROW 06/09/2015 11:28 cutaneous misty loid ASP PERFORMED W/BX THRU AM EDT with lymphoid BX INCISION (WRVU 0.16) infiltrate DIFFERENTIAL, MANUAL Routine 06/09/2015 11:00 Res ults for this AM EDT procedure are i n the results section. HEMOGRAM Routine 06/09/2015 11:00 Results for this AM EDT procedure are i n the results section. documented in this encounter Results chromo report acquired (06/09/2015 3:03 PM EDT) Component Value Ref Test Analysis Performed At [facility] Range Method Time Signature Cytogenetics Final Report CERNER Acquired Report [facility] ? [id number] Specimen Type: Bone Marrow Specimen Condition: ~3mL, +fat, +spicules Collection Date/Time: 06/09/2015 11:40 Received Date/Time: 06/10/2015 08:05 Indication: Other/rule out lymphoid disorders ---Results--- Normal karyotype ---Karyotype--- 46,XX[20] ---Preparation--- Culture Type: 24hr, 48hr, B-cell mitogen stim cultures Days in Culture: 1-3 Banding Method: G-banding Banding Level: 400 bands FISH Method: N/A ---Analysis--- Cultures Analyzed: 3 Metaphase Cells Counted: ??20 Metaphase Cells Analyzed: ??20 Metaphase Cells Karyotyped: ??2 ---Interpretation--- Cytogenetic analysis of the unstimulated and B-cell mitoge n-stimulated bone marrow preparations revealed a normal female karyotype of 46 ,XX. No clonal abnormalities were observed. ---Comments--- This result should be correlated with clinical presentation and other laboratory testing. 06.22.15 (Electronic Signature) Verified By: Kevin RAMOS, Ph.D., [facility] Director, Cytogenetics Specimen (Source) Anatomical Collection Method Collection Time Re ceived Time Location / / Volume Laterality 06/09/2015 3:03 PM EDT Farzaneh Valera MD HEMATOLOGY ORDERABLES Performing Organization Address City/State/[place] [address] [facility])BONE MARROW ASP PERFORMED W/BX THRU BX INCISION (06/09/2015 11:42 AM EDT) Narrative Shantelle Richards, MULTIGRAPHER - 06/09/2015 11:42 AM EDT Shantelle Richards, EDUARDO ? 06/09/2015 11:42 AM BONE MARROW BIOPSY AND ASPIRATION PROCED URE NOTE Bone Marrow Biopsy & Aspiration with Con scious Sedation - Unilateral Date/Time of Procedure: 06/09/2015 Proceduralist: Shantelle Richards, RN, MS, PRACTICE PROFESSIONAL DIAGNOSIS: Amyloid Pre-Procedure: (x) Consent signed and on chart. (x) CBC drawn within 3 days. (x) Medications/Allergies/Problem List r eviewed. (x) H & P complete Prior to start of procedure the followin g is verified in a TIME OUT: (x) Patient identity (x) Planned procedure (x) Safety concerns IV ACCESS: Per sedation RN PAIN INTERVENTION: ?Per sedation RN Sterile Condition: ??Chlorohexidine/beta dine was used to sterilize the area. Sterile drapes were used to cr eate a sterile field. Local Anesthesia: 1% ??Lidocaine 25 cc's . PROCEDURE: A bone marrow biopsy and aspi ration was performed on the right posterior iliac crest. Pressur e applied to site(s) for at least 20 minutes following the proced ure and Tegaderm placed. Estimated Blood Loss: minimal Complications: none POST INTERVENTION CARE & PAIN ASSESSMENT : ?Per [facility] nurses. Follow-up: ??Written/Verbal instructions for site care given to patient per [facility] nurses. Follow-up with Physician as instructed. Farzaneh Valera MD GENERAL SURGICAL ORDERABLES ([facility] MS[facility]) UNILAT BONE MARROW BIOSPY (06/09/2015 11:42 AM EDT) Narrative Shantelle Richards, MULTIGRAPHER - 06/09/2015 11:42 AM EDT Shantelle Richards, EDUARDO ? 06/09/2015 11:42 AM BONE MARROW BIOPSY AND ASPIRATION PROCED URE NOTE Bone Marrow Biopsy & Aspiration with Con scious Sedation - Unilateral Date/Time of Procedure: 06/09/2015 Proceduralist: Shantelle Richards, RN, MS, PRACTICE PROFESSIONAL DIAGNOSIS: Amyloid Pre-Procedure: (x) Consent signed and on chart. (x) CBC drawn within 3 days. (x) Medications/Allergies/Problem List r eviewed. (x) H & P complete Prior to start of procedure the followin g is verified in a TIME OUT: (x) Patient identity (x) Planned procedure (x) Safety concerns IV ACCESS: Per sedation RN PAIN INTERVENTION: ?Per sedation RN Sterile Condition: ??Chlorohexidine/beta dine was used to sterilize the area. Sterile drapes were used to cr eate a sterile field. Local Anesthesia: 1% ??Lidocaine 25 cc's . PROCEDURE: A bone marrow biopsy and aspi ration was performed on the right posterior iliac crest. Pressur e applied to site(s) for at least 20 minutes following the proced ure and Tegaderm placed. Estimated Blood Loss: minimal Complications: none POST INTERVENTION CARE & PAIN ASSESSMENT : ?Per [facility] nurses. Follow-up: ??Written/Verbal instructions for site care given to patient per [facility] nurses. Follow-up with Physician as instructed. Farzaneh Valera MD GENERAL SURGICAL ORDERABLES Bone Marrow Final Report (06/09/2015 11:40 AM EDT) Component Value Ref Test Analysis Performed At [facility] gist Range Method Time Signature Bone Marrow The signing pathologist has (i) examined the relevant preparation(s) for the CERNER Final Report specimen(s) and (ii) rendered or confirmed the diagnosis (es). [facility] Accession Number: [id number] ? Location: . ?Macho w Cytometry DIAGNOSIS No immunophenotypic evidence for involvement of the bone marrow by a monoclonal lymphoproliferative or plasma cell neoplasm (see Discussion ). 06/10/15 DLO 06/10/15 Verified by: ? Veronique RAMOS, Padma Barillas ?Hematopathologist ?(Electronic Signature ) DISCUSSION The majority of lymphocytes in this bone marrow aspirate specimen are CD3+ T- cells (79% of lymphocytes; 1% of total ce lls) with an appropriate mixture of mature CD4+ and CD8+ forms (CD4:CD8 ratio approximatel y 2.4) without aberrant antigen loss or expression. CD3-CD56+ NK cells constitute 12% of lymphocytes ( <1% of total cells). Too few B-cells and plasma cells are present to reliab ly assess clonality, thus there is no joel immmunophenotypic evidence for involvement of the bone marrow by a monoclonal B-cell or plasma cell neoplas These immunophenotypic find ings support the morphologic impression (see separate report). Flow analysis is an ancillar y study. A definite diagnosis requires correlation with the morphologic features of thi s process and if necessary, correlation with other ancillary studies like immunohistoche abdiel, enzyme cytochemistry and/or cyto/molecular genetics. This test was developed and its performance characteristics determined by the Clinical Flow Cytometry Laboratory jade sher [facility]. It has not been cleared or approved by the [place] d and Drug Administration. ??The FDA has determined that such clearance or approval is no t necessary. ??This test is used for clinical purposes. ??It should not be regarded as i nvestigational or for research. ??This laboratory is certified under the Clinical Laborato ry Improvement Act of 1988 (CLIA) as qualified to perform high complexity clinical laboratory testing. SPECIMEN [id number] Cells for immunophenotypic a nalysis were derived from bone marrow. ??CD45 vs side scatter gating was utilized to iden tify a lymphoid analysis region that comprises approximately 1% of all cells. The following markers were a ssessed: CD2, CD3, CD4, CD5, CD7, CD8, CD10, CD19, CD20, CD38, CD45, CD56, CD138, kappa light chain and lambda light chain . 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 ? Bone Marrow Final DIAGNOSIS 1. Slight neutrophilia, peripheral blood. 2. Normocellular marrow with maturing trilineage hematopoies is. 3. No morphologic evidence for marrow involvement by plasma cell neoplasm ?? or amyloidosis. . DIAGNOSIS 4. Absent storage iron (see Discussion). 06/10/15 DLO 06/10/15 Verified by: ? Veronique RAMOS, Padma Barillas ?Hematopathologist ?(Electronic Signature ) The attending pathologist whose signature appears on this re port has reviewed all diagnostic slides and has edited the gross and/ or microscopic portion of the report in mario dering the final pathologic diagnosis. DISCUSSION Flow cytometry immunophenoty pe analysis was performed concurrently on the bone marrow aspirate (see separate repo rt) and identified no monoclonal B-cell or plasma cell populations, thus supportin g the morphologic impression. ??RBC microcytosis in the setting of absent storage iron sugg ests impending iron deficiency. The specimen has been submitte for cytogenetic analysis, a nd the results will be reported separately when available. PERIPHERAL SMEAR The white blood cell count i s 10.5K/uL. The predominating cells are neutrophils with sonia morphology. Occasional atyp ical lymphocytes are present, but no frankly abnormal forms ar seen. No anemia is evident (Hgb 13 g/dL; MCV 80. fL), but there is slight anisocytosis wi occasional microcytes prese nt. Platelets are normal in number (305K/uL) and exhibit sonia morphologic features. No bl asts or abnormal circulating cell populations are appreciated. BONE MARROW ASPIRATE The bone marrow aspirate is particulate and cellular with an estimated myeloid:erythroid (M:E) ratio of approximatel y 2:1. A neoplastic infiltrate is not identified. Myeloid maturation is sequential to the neutrophil without dysplastic features or an increase in blasts, and erythroid precu rsors show normoblastic maturation. Megakaryocytes are normal in number and morphology. P lasma cells and lymphocytes have normal morphology and are not increased in number. An iro n stain is performed and does not definitely demonstrate the presence of iron stores. No increase in ring sideroblasts i s appreciated. DIFFERENTIAL Neutrophils/bands 39%, Lymph ocytes 7%, Monocytes 6%, Eosinophils 4%, Basophils 0%, Metamyelocytes 4%, Myelocyt es 4%, Promyelocytes 4%, Blasts 2%, Erythroid precursors 29%, Plasma cells 0%. ENZYME CYTOCHEMISTRY N/A BONE MARROW BIOPSY and/or CLOT The decalcified bone marrow biopsy specimen consists of cortical and trabecular bone and hematopoietic tissue with m ultiple areas of hemorrhagic aspiration artifact present. The bone marrow is otherwise ro ughly normocellular for age with an overall cellularity estima at approximately 50-60%. My eloid maturation is once again seen as sequential to the neutrophil without an incre ase in blasts, and active islands of maturing erythroid precur are present throughout. Constance akaryocytes are present in normal number, have a generally normal morphology and are d istributed in a normal pattern throughout the bone marrow spac without significant cluster formation or abnormal localization. Plasma cells, highlighted by the immunostain for CD13 8, are distributed singly throughout the marrow space in a normal pattern, account for not more than 2-3% of total nucleated cells and show polytypi kappa/lambda light chain ex pression. There are no lymphoid aggregates, granulomata or abnormal infiltrating nonhe matopoietic cell populations identified. The bony trabeculae appear normal for age. A sp ecial stain for amyloid is performed and is negative for amylo deposition. Immunohistochemistry Studies: Formalin-fixed, paraffin-emb edded tissue sections are studied using the B-SA system technique with appropriate positive and negative controls. ??These IHC studies provide the . BONE MARROW BIOPSY and/or CLOT pathologist with adjunctive diagnostic information. Antibody specificity has been verifie by testing antibodies on a series of in-house tissues with known immunohistochemical performance characteristics . The clinical interpretation of any antibody positive stainin or its absence is evaluated within the context of clinical presentation, morphology, histopathological criteria and other diagnostic tests. Block ?Antibody ? Result (Positive/Ne gative) A1 ?CD138 ? See above discussion ?[place] ?Lambda CLINICAL INFORMATION Specimen: ? Bone marrow aspirate and biop sy, right Clinical Diagnosis: ? [place] light chain AL amyloidosis Indication for Study: ?? Evaluate for plasma cell neoplasm Specimen (Source) Anatomical Collection Method Collection Time Re ceived Time Location / / Volume Laterality 06/09/2015 11:40 AM EDT Farzaneh Valera MD PATHOLOGY/CYTOLOGY ORDERABLE S Performing Organization Address City/State/[place] [address] [facility] Immunophenotyping Flow Cytometry (06/09/2015 11:40 AM EDT) Component Value Ref Test Analysis Performed At [facility] gist Range Method Time Signature Immunophenotyping See [facility] Flow Comment [facility] Comment: When completed by the Pathologist, the F low Cytometry Report [id number]) will display under the Pathology Results se ction within eDH. Specimen Anatomical Collection Method Collection Time Receive d Time (Source) Location / / Volume Laterality Bone marrow 06/09/2015 11:40 06/09/2015 specimen AM EDT 12:33 PM EDT (specimen) Resulting Agency Comment Spec In Lab Farzaneh Valera MD HEMATOLOGY ORDERABLES Performing Organization Address City/[facility]/ZIP Code Phon e Number [address] CERNER MILLENNIUM Iron Stain, Bone Marrow (06/09/2015 11:40 AM EDT) [facility] [employer] Method Time Signature Iron Stain BM See Comment CERNER MILLENNIUM Comment: See Bone Marrow Report [id number] under Hematopathology Reports. Specimen Anatomical Collection Method Collection Time Receive d Time (Source) Location / / Volume Laterality Bone marrow 06/09/2015 11:40 06/09/2015 specimen AM EDT 12:33 PM EDT (specimen) Resulting Agency Comment Spec In Lab Farzaneh Valera MD HEMATOLOGY ORDERABLES Performing Organization Address City/[facility]/ZIP Code Phon e Number [address] CERNER MILLENNIUM (ABNORMAL) Differential, Manual (06/09/2015 11:00 AM EDT) [facility] [employer] Method Time Signature Neutrophil % 90 % CERNER MILLENNIUM Band % 1 % CERNER MILLENNIUM Lymphocyte % 7 % CERNER MILLENNIUM Monocyte % 1 % CERNER MILLENNIUM Eosinophil % 1 % CERNER MILLENNIUM Neutrophil Abs 9.5 (H) 1.5 - 6.3 CERNER x10(3)/mcL MILLENNIUM Band Abs 0.1 (L) 0.2 - 0.6 CERNER x10(3)/mcL MILLENNIUM Neutr Abs (ANC) 9.57 (H) 1.50 - CERNER 6.30 MILLENNIUM x10(3)/mcL Lymphocyte Abs 0.7 (L) 1.0 - 3.6 CERNER x10(3)/mcL MILLENNIUM Monocyte Abs 0.1 (L) 0.2 - 1.0 CERNER x10(3)/mcL MILLENNIUM Eosinophil Abs 0.1 0.0 - 0.5 CERNER x10(3)/mcL MILLENNIUM Tot Diff Cell [address] [place]UM Plat Estimate Normal CERNER MILLENNIUM RBC Morphology Normal CERNER MILLENNIUM Specimen Anatomical Collection Method Collection Time Receive d Time (Source) Location / / Volume Laterality Blood specimen Venous Draw / 06/09/2015 11:00 06/09/20 15 (specimen) Unknown AM EDT 12:34 PM EDT Resulting Agency Comment Spec In Lab Farzaneh Valera MD HEMATOLOGY ORDERABLES Performing Organization Address City/State/[facility] Code Phon e Number [address] CERNER MILLENNIUM (ABNORMAL) Hemogram (06/09/2015 11:00 AM EDT) P athologist Signature WBC 10.5 (H) 4.0 - 10.0 CERNER x10(3)/mcL MILLENNIUM RBC 4.99 3.93 - CERNER 5.22 MILLENNIUM x10(6)/mcL Hemoglobin 13.3 11.2 - CERNER 15.7 gm/dL MILLENNIUM Hematocrit 39.9 34.0 - CERNER 45.0 % MILLENNIUM MCV 80.0 79.0 - CERNER 94.0 fL MILLENNIUM MCH 26.7 26.6 - CERNER 32.2 pg MILLENNIUM MCHC 33.3 32.0 - CERNER 36.5 gm/dL MILLENNIUM Platelets 305 145 - 370 CERNER x10(3)/mcL MILLENNIUM RDWSD 43.1 35.0 - CERNER 46.0 fL MILLENNIUM RDWCV 14.8 (H) 10.9 - CERNER 14.4 % MILLENNIUM MPV 10.0 9.0 - 12.0 CERNER fL MILLENNIUM Specimen Anatomical Collection Method Collection Time Receive d Time (Source) Location / / Volume Laterality Blood specimen 06/09/2015 11:00 5 (specimen) AM EDT 12:34 PM EDT Resulting Agency Comment Spec In Lab Farzaneh Valera MD HEMATOLOGY ORDERABLES Performing Organization Address City/[facility]/ZIP Code Phon e Number [place] [phone] [facility] documented in this encounter Visit Diagnoses Not on filedocumented in this encounter Administered Medications Inactive Administered Medications - up to 3 most recent administrations Medication Order MAR Action Action Date Dose Rate Site fentaNYL 50 mcg/mL multi-dose Given 06/09/2015 11:35 AM EDT 25 m cg injection 25-50 mcg, Intravenous, EVERY 5 MIN PRN, Starting on Mon06/09/15 at 1045, Until Mon06/09/15 at 1234, Pain, Hold for respiratory rate less than 8 breaths per minute. (maximum dose 200 mcg), Intra-Operative (Intra-Procedure), Routine Given 06/09/2015 11:30 AM EDT 25 mcg midazolam (PF) (VERSED) 1 mg/mL multi-dose Given 06/09/2015 11:3 4 AM EDT 1 mg injection 0.5-2 mg 0.5-2 mg, Intravenous, EVERY 5 MIN PRN, Starting on Mon06/09/15 at 1045, Until Mon06/09/15 at 1234, Sleep, Anxiety, Hold for delirium/agitation. (Maximum dose 5 mg)., Intra-Operative (Intra-Procedure), Routine Given 06/09/2015 11:30 AM EDT 1 mg documented in this encounter Active and Recently Administered Medications Times are shown in EDT. PRN Medication Order 06/07/2015 06/08/2015 06/09/2015 fentaNYL 50 mcg/mL multi-dose injection (CANCELED) 1130 (Given - Provider: Bipin Carbone RN)1135 (Given - Provider: Bipin Carbone RN) 25-50 mcg, Intravenous, EVERY 5 MIN PRN, Starting Mon06/09/15 at 1045, Until Mon06/09/15 at 1234, Pain, Hold for respiratory rate less than 8 breaths per minute. (maximum dose 200 mcg), Intra-Operative (Intra-Procedure), Routine midazolam (PF) (VERSED) 1 mg/mL multi-dose injection 0.5-2 mg (C ANCELED) 1130 (Given - Provider: Bipin Carbone RN)1134 (Given - Provider: Bipin Carbone RN) 0.5-2 mg, Intravenous, EVERY 5 MIN PRN, Starting e 06/09/15 at 1045, Until 06/09/15 at 1234, Sleep, Anxiety, Hold for delirium/agitation. (Maximum dose 5 mg)., Intra-Operative (Intra-Procedure), Routine documented in this encounter Care Teams Stitch Rubber Relationship Specialty Start Date End Date Kunal Nesbitt MD PCP - General Family Medicine 06/09/15 04/03/16 documented as of this encounter
--- OUTSIDE RECORDS SUMMARY | 2022-05-27 14:53 | XMS_ITS | Encounter Summary ---
:1960 Author Organization [facility] [place] [address] Care Team Providers Name Role Phone Kunal Nesibtt MD Primary Care Provider Reason for Visit Reason Comments Other Encounter Details Date Type Department Care Team Description 10/07/2015 Telephone Dermatology at [facility] Se, [address] [place] [address] Social History Tobacco Use Types Packs/Day Years [...] this encounter Miscellaneous Notes Telephone Encounter - Ivanna Saez - 10/07/2015 8:29 AM EST I left a voice message on patient's home phone to call. Telephone Encounter - Ivanna Saez - 10/07/2015 8:29 AM EST ----- Message from Kelsey Whitney MD sent at 09/30/2015 1:38 PM EST ----- Ivanna, this is not urgent. Please call to schedule 15 minute skin exam for skin lesions darkening perDr. Lowe. Thank you. ----- Message ----- From: Patricio Lowe MD Sent: 09/28/2015 11:17 AM To: MD Kunal Busch, Lupus doing well. Agree that this is probable sciatica, + SLR. Thanks Patricio Cole, can you look at her skin lesions? They are darkening. Due to Plaquenil Aleksander documented in this encounter Plan of Treatment Not on filedocumented as of this encounter Visit Diagnoses Not on filedocumented in this encounter Care Teams Pin Setter Relationship Specialty Start Date End Date Kunal Nesbitt MD PCP - General Family Medicine 06/09/15 04/03/16 documented as of this encounter
--- OUTSIDE RECORDS SUMMARY | 2022-05-27 14:53 | XMS_ITS | Encounter Summary ---
:1960 Author Organization [facility] [place] [address] Care Team Providers Name Role Phone Kunal Nesbitt MD Primary Care Provider Reason for Visit Reason Onset Date Comments Medication Problem 11/25/2015 Encounter Details Date Type Department Care Team Description 11/25/2015 Telephone Rheumatology at [facility] [place] [address] Social History Tobacco Use Types Packs/Day [...] Telephone Encounter - Kristy Asher RN - 11/25/2015 10:54 AM EDT The alternative if Mycophenolate Mofetil 500 mg tablets. ??Tell her it is actually a better drug than imuran, but it needs to be taken twice daily ? Have her start by taking 1 T twice daily for 7 days, then increasing to 2 T twice daily thereafter. ? # 120 ??11 refills ? thanks I have left a message for Francie to RTC about starting Mycophenolate. Telephone Encounter - Kristy Asher RN - 11/25/2015 9:59 AM EDT Francie calls this am and reports that Imuran is making her sick. RTC to Francie. She reports that she has taken Imuran for 2 days and has had several episodes of Nausea and Vomiting. Advised to discontinue and will document as an adverse reaction. Francie would like to know if there is something else that recommends. Advised that I would forward message to him for recommendations and call her back with Plan of Care. documented in this encounter Plan of Treatment Not on filedocumented as of this encounter Visit Diagnoses Not on filedocumented in this encounter Care Teams Sale Professional Digital Marketing Relationship Specialty Start Date End Date Kunal Nesbitt MD PCP - General Family Medicine 06/09/15 04/03/16 documented as of this encounter
--- OUTSIDE RECORDS SUMMARY | 2022-05-27 14:53 | XMS_ITS | Encounter Summary ---
:1960 Author Organization [facility] [place] [address] Care Team Providers Name Role Phone Kunal Nesbitt MD Primary Care Provider Encounter Details Date Type Department Care Team Description 09/28/2015 Hospital Encounter Pulmonology at [facility] [place] [place] [address] Social History Tobacco Use Types Packs/Day [...] 08/2511/05/2015 125 mcg Tablet mouth every morning. gabapentin (NEURONTIN) 800 1-2 T at bedtime, 30 tablet 3 11/05/2015 mg TabletIndications: call if not Insomnia, unspecified type better in 1 week. predniSONE (DELTASONE) 5 mg Take 5 mg [...] documented as of this encounter Procedure Notes Mary Caraballo MD - 09/28/2015 7:19 PM ESTAssociated Order(s): PULMONARY FUNCTION TEST PFT interpretation. Spirometry: ( ) Normal spirometry ( ) Obstructive ventilatory defect ( ) mild (FEV1 % pred >70%), ( ) moderate (60-69), ( ) moderately severe (50-59) ( ) severe (35-49), ( ) very severe (<35) ( ) Suspected restrictive defect (reduced FVC with normal FEV1/FVC), no obstruction ( ) concomitant restrictive ventilatory defect may exist ( reduced FVC and FEV1/FVC). Bronchodilator reponse: ( )Yes ( )No Lung Volumes: ( ) No evidence of restrictive ventilatory defect ( Normal TLC ) ( ) Restrictive ventilatory defect ( TLC <LLN) ( ) air trapping Diffusing Capacity: (x ) Normal diffusing capacity ( ) Reduced diffusing capacity ( ) mild , ( ) moderate (40-60% pred), ( ) severe Pulse oximetry: Resting SpO2 In room air. ( ) Normal ( x ) reduced. ( <95%) Desaturation during ambulation ( ) Yes ( x ) No Comment: Mary Caraballo MD Pulmonary/Critical Care [facility] documented in this encounter Plan of Treatment Not on filedocumented as of this encounter Procedures Procedure Name Priority Date/Time Associated Diagnosis Comme nts PULMONARY FUNCTION Routine 09/28/2015 7:19 PM Chronic obstruct danika Results for this TEST EST asthma procedure are i n the results section. documented in this encounter Results Pulmonary Function Testing (09/28/2015 7:19 PM EST) Narrative Mary Caraballo MD - 09/28/2015 7:19 P M EST Mary Caraballo MD ? 09/28/2015 ??7:19 PM PFT interpretation. ?? Spirometry: ?? ( ??) Normal spirometry ( ??) Obstructive ventilatory defect ( ??) mild (FEV1 % pred >70%), ( ??) mo derate (60-69), ( ??) moderately severe (50-59) ( ??) severe (35-49), ( ??) very severe (<35) ( ??) Suspected restrictive defect (redu sue FVC with normal FEV1/FVC), no obstruction ( ??) concomitant restrictive ventilator y defect may exist ( reduced FVC and FEV1/FVC). ?? Bronchodilator reponse: ( ??)Yes ??( ??) No Lung Volumes: ( ??) No evidence of restrictive ventila tory defect ( Normal TLC ) ( ??) Restrictive ventilatory defect ( T LC <LLN) ( ??) air trapping Diffusing Capacity: (x ??) Normal diffusing capacity ( ??) Reduced diffusing capacity ??( ??) mild , ( ??) moderate (40-60% p red), ( ??) severe Pulse oximetry: Resting ??SpO2 ??In room air. ??( ??) No rmal ( x ??) reduced. ??( <95%) Desaturation during ??ambulation ( ?? ) Yes ( x ??) No Comment: Mary Caraballo MD Pulmonary/Critical Care [facility] Raegan Del Rio MD PFT ORDERABLES documented in this encounter Visit Diagnoses Diagnosis Chronic obstructive asthma Chronic obstructive asthma, unspecified documented in this encounter Care Teams Digital Sales Executive Relationship Specialty Start Date End Date Kunal Nesbitt MD PCP - General Family Medicine 06/09/15 04/03/16 documented as of this encounter
--- OUTSIDE RECORDS SUMMARY | 2022-05-27 14:53 | XMS_ITS | Encounter Summary ---
:1960 Author Organization [facility] [place] [address] Care Team Providers Name Role Phone Kunal Nesbitt MD Primary Care Provider Reason for Visit Reason Comments Other Encounter Details Date Type Department Care Team Description 09/11/2015 Telephone Allergy at [facility] Raegan Del Rio MD [facility] [place] [address] ALLERGY AND IMMUNOLOGY [phone] [place], [place] [address] (Wo rk) Social History Tobacco [...] this encounter Miscellaneous Notes Telephone Encounter - Raegan Del Rio MD - 09/11/2015 1:52 PM EST Pt. notified of PFT results : Spirometry is borderline normal. ??There is no significant change following inhaled bronchodilator therapy. Will extend workup with DLCO and pulse ox. while ambulating documented in this encounter Plan of Treatment Not on filedocumented as of this encounter Visit Diagnoses Not on filedocumented in this encounter Care Teams Marketing Operations Analyst Relationship Specialty Start Date End Date Kunal Nesbitt MD PCP - General Family Medicine 06/09/15 04/03/16 documented as of this encounter
--- OUTSIDE RECORDS SUMMARY | 2022-05-27 14:53 | XMS_ITS | Encounter Summary ---
:1960 Author Organization [facility] [place] [address] Care Team Providers Name Role Phone Kunal Nesbitt MD Primary Care Provider Encounter Details Date Type Department Care Team Description 09/11/2015 Orders Only [place] at [facility] Raegan Del Rio, Chronic obstructive [facility] [place] [address] ALLERGY AND IMMUNOLOGY [place], [place] [address] Social History Tobacco Use Types [...] of this encounter Results Pulmonary Function Testing (09/28/2015 [...] No Comment: Mary Caraballo MD Pulmonary/Critical Care [facility] Raegan Del Rio MD PFT ORDERABLES documented in this encounter Visit Diagnoses Diagnosis Chronic obstructive asthma Chronic obstructive asthma, unspecified Chronic obstructive asthma Chronic obstructive asthma, unspecified documented in this encounter Care Teams Pad Machine Operator Relationship Specialty Start Date End Date Kunal Nesbitt MD PCP - General Family Medicine 06/09/15 04/03/16 documented as of this encounter
--- OUTSIDE RECORDS SUMMARY | 2022-05-27 14:53 | XMS_ITS | Encounter Summary ---
:1960 Author Organization [facility] [place] [address] Care Team Providers Name Role Phone Kunal Nesbitt MD Primary Care Provider Reason for Visit Reason Onset Date Comments Other 11/17/2015 Appointment Encounter Details Date Type Department Care Team Description 11/17/2015 Telephone Rheumatology at [facility] Kristy Asher RN Other (Appointment) [place] [address] Social History Tobacco Use Types Packs/Day [...] Telephone Encounter - Kristy Asher RN - 11/18/2015 3:14 PM EDT Appointment scheduled. Telephone Encounter - Kristy Asher RN - 11/17/2015 4:03 PM EDT Call received from Francie in regards to appointment. She states she is not able to come at 2:00 pm and wants an earlier appointment. I advised she should call to cancel appointment or call office secretary todiscuss possibly changing times with another patient. Telephone Encounter - Kristy Asher RN - 11/17/2015 2:57 PM EDT Francie calls today and is requesting to have an earlier (Late am) appointment with Dr. Lowe on 11/23/15. RTC and asked Francie to RTC to discuss. documented in this encounter Plan of Treatment Not on filedocumented as of this encounter Visit Diagnoses Not on filedocumented in this encounter Care Teams Technology Infusion Specialist Relationship Specialty Start Date End Date Kunal Nesbitt MD PCP - General Family Medicine 06/09/15 04/03/16 documented as of this encounter
--- OUTSIDE RECORDS SUMMARY | 2022-05-27 14:53 | XMS_ITS | Encounter Summary ---
:1960 Author Organization [facility] Address [facility] [place] [address] Care Team Providers Name Role Phone Kunal Nesbitt MD Primary Care Provider Reason for Visit Reason Onset Date Comments Other 11/26/2015 Medication Questions Encounter Details Date Type Department Care Team Description 11/26/2015 Telephone [place]ology [place] [facility] [place]y Asher, Other ([facility] Marquis kingsley RN Questions) [place] [address] Social History Tobacco Use Types Packs/Day Years [...] Telephone Encounter - Patricio Lowe MD - 12/02/2015 9:19 AM EDT Spoke to patient. She will start the Cellcept. Have also switched her thrice weekly double strength Bactrim to single strength daily due to chronic sinus issues. Patricio Lowe Telephone Encounter - Kristy Asher RN - 12/01/2015 11:28 AM EDT I spoke with rFancie today and she states that she is scared to to try another medication. She would like to know if Dr. Lowe has something more natural that she can take. I advised that I would send her concerns to Dr. Lowe. rFancie states that Dr. Lowe is aware of her fears of new medications. Telephone Encounter - Kristy Asher RN - 11/30/2015 10:06 AM EDT Multiple phone calls back and forth and still no contact. I have asked Francie to call and choose option #1 and ask secretary administrative assistant to put her call through to this nurse. Telephone Encounter - Kristy Asher RN - 11/26/2015 10:17 AM EDT Francie calls today and reports that she has changed her mind about taking new medication. RTC and asked Francie to call back. documented in this encounter Plan of Treatment Not on filedocumented as of this encounter Visit Diagnoses Not on filedocumented in this encounter Care Teams Labeling Specialist Relationship Specialty Start Date End Date Kunal Nesbitt MD PCP - General Family Medicine 06/09/15 04/03/16 documented as of this encounter
--- OUTSIDE RECORDS SUMMARY | 2022-05-27 14:53 | XMS_ITS | Encounter Summary ---
:1960 Author Organization [facility] [place] [address] Care Team Providers Name Role Phone Kunal Nesbitt MD Primary Care Provider Encounter Details Date Type Department Care Team Description 12/02/2015 Orders Only [place] [facility] [place]ricio Lowe, Acute recurrent pansinusitis ; [facility] Need for pneumocystis [place] [address] CENTER [phone] RHEUMATOLOGY DEPT. [place], [place] [address] Social History Tobacco Use Types [...] chemotherapy documented in this encounter Care Teams Loader Helper Relationship Specialty Start Date End Date Kunal Nesbitt MD PCP - General Family Medicine 06/09/15 04/03/16 documented as of this encounter
--- OUTSIDE RECORDS SUMMARY | 2022-05-27 14:53 | XMS_ITS | Encounter Summary ---
:1960 Author Organization [facility] [place] [address] Care Team Providers Name Role Phone Kunal Nesbitt MD Primary Care Provider Reason for Referral Consultation (Routine) - Duplicate Referral Specialty Diagnoses / Procedures Referred By Contact Refer red To Contact Pulmonology Diagnoses Chronic obstructive asthma Raegan Del Rio MD [facility] [place] [address] [place] [address] [facility] [place] [address] [place] [address] Referral ID Status Reason Start Expiration Visits Visits Date Date Requested Authorized [id number] Duplicate Consult, 09/29/2015 09/28/2016 1 1 Referral Test & Treat Encounter Details Date Type Department Care Team Description 09/29/2015 Telephone Allergy at [facility] Raegan Del Rio MD [facility] [place] [address] ALLERGY AND IMMUNOLOGY [phone] [place], [place] [address] (Wo rk) Social History Tobacco [...] Encounter - Raegan Del Rio MD - 09/29/2015 10:28 AM EST I called the pt to discuss most recent PFT results: DLCO was WNL, no desat. on ambulating, reduced O2 sat. at rest Discussed with Dr Caraballo by phone Pt. still having shortness of breath with even mild exertion Will place referral to Pulm. for addl. suggestions re: evaluation and management documented in this encounter Plan of Treatment Scheduled Referrals Name Type Priority Associated Diagnoses Order S chedule Referral to Outpatient Referral Routine Chronic obstructive O rdered: Pulmonology asthma 09/29/2015 documented as of this encounter Visit Diagnoses Diagnosis Chronic obstructive asthma Chronic obstructive asthma, unspecified documented in this encounter Care Teams Net Developer Contract Relationship Specialty Start Date End Date Kunal Nesbitt MD PCP - General Family Medicine 06/09/15 04/03/16 documented as of this encounter
--- OUTSIDE RECORDS SUMMARY | 2022-05-27 14:53 | XMS_ITS | Encounter Summary ---
:1960 [place] [address] Care Team Providers Name Role Phone Kunal Nesbitt MD Primary Care Provider Encounter Details Date Type Department Care Team Description 11/04/2015 Hospital Encounter Radiology Library at [facility], Denise Iraheta [facility] [place] [address] PULMONARY MEDICINE [phone] [place], [place] [address] (Wo rk) Social History Tobacco [...] 08/2511/05/2015 125 mcg Tablet mouth every morning. hydroxychloroquine Take 2 tablets by 60 tablet 6 10/08/2015 11/23/2015 (PLAQUENIL) 200 mg Tablet mouth daily. gabapentin (NEURONTIN) 800 1-2 T at bedtime, [...] Associated Diagnosis Comme nts FILM LIBRARY Routine 11/04/2015 12:00 AM Pain Results for this STORAGE ONLY DX EDT procedure ar e in CHEST the results section. documented in this encounter Results Film Library- Storage only DX Chest (11/04/2015 12:00 AM EDT) Specimen (Source) Anatomical Location Collection Method / Collectio n Time Received Time / Laterality Volume Narrative [facility] - 01/05/2016 11:52 AM EDT This exam is for storage only and is aut o-finalizing. Ke Oseguera MD IMG FILM LIBRARY ORDERABLES Performing Organization Address City/State/ZIP Code Phon e Number [facility] [place], [place] documented in this encounter Visit Diagnoses Diagnosis Pain Generalized pain documented in this encounter Care Teams Salvage Grinder Relationship Specialty Start Date End Date Kunal Nesbitt MD PCP - General Family Medicine 06/09/15 04/03/16 documented as of this encounter
--- OUTSIDE RECORDS SUMMARY | 2022-05-27 14:53 | XMS_ITS | Encounter Summary ---
:1960 Author Organization [facility] [place] [address] Care Team Providers Name Role Phone Kunal Nesbitt MD Primary Care Provider Reason for Visit Reason Comments Allergies Asthma Encounter Details Date Type Department Care Team Description 09/09/2015 Office Visit Allergy at [facility] Raegan Del Rio, Chronic obstructive asthma; [facility] [place] [address] ALLERGY AND [phone] IMMUNOLOGY [place], [place] [address] Social History Tobacco Use Types [...] Sign Reading Time Taken Comments Blood Pressure 141/76 09/09/2015 10:25 AM EST Pulse 69 09/09/2015 10:25 AM EST Temperature - - Respiratory Rate - - Oxygen Saturation - - Inhaled Oxygen Concentration - - Weight 90.3 kg (199 lb) 09/09/2015 10:25 AM EST Height 162.6 cm (5' 4) 09/09/2015 10:25 AM EST Body Mass Index 34.16 09/09/2015 10:25 AM EST documented in this encounter Patient Instructions Patient InstructionsHiRaegan plascencia MD - 09/09/2015 11:25 AM EST pfts today continue flovent 2 puffs twice a day use albuterol every 4-6 hrs as needed rinse/gargle after flovent use spacer stop nasal spray and just use nasal saline spray or gel check with pcp about pneumonia shot documented in this encounter Progress Notes Raegan Del Rio MD - 09/09/2015 1:38 PM EST Subjective: Patient ID: Francie Yusuf is a 55 y.o. female. HPI Francie is here because of asthma and chronic rhinitis. She was last seen in this clinic in 2011 for these conditions. -reports that she has shortness of breath with minimal exertion such as climbing 1 flight of stairs and walking a short distance on level ground -she typically stops and within a few moments is able to breathe normally w/o needing to use her rescue inhaler - had PFTs done ~ 5 mos ago at [facility] with reportedly normal results ( she was on ~ 20 mg prednisone/day at that time ) -is now taking 5 mg prednisone/day -she has been diagnosed as having lupus and is on Plaquenil 200 mg 2 tabs/day -is followed by Dr Lowe in Rheum. and by Dr Valera in Hem-Onc. for amyloidosis -she had hemothorax and hemopericardium last year requiring drainage -takes Flovent 220 2 puffs bid for asthma -reports nocturnal awakenings ~ 4x/wk., but does not use albuterol every time- currently uses albuterol ~ once a wk. -former smoker 1.5 PPD x ~ 15 yrs. -no ER visits recently for asthma -asthma interferes with ADL daily as noted above -cannot recall ever using Advair, or Symbicort Reports perennial nasal congestion worse at night -no obvious triggers -uses a nasal rx spray but can't recall the name of it -takes Mucinex and Zyrtec daily with ? benefit -notes that she has had some epistaxis -does not aim nasal spray away from septum -allergy skin testing several yrs ago was borderline + to dog -denies nasal/sinus surgery -has 3-6 sinus infections / yr. which are treated with abx. These are not diagnosed by sinus imaging, but rather clinically . -saw Dr Tate , ENT, prev. who said she had a deviated nasal septum -took abx ~ 2 wks ago for presumed sinusitis PH: Active Ambulatory Problems Diagnosis Date Noted ??? 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 Asthma 10/28/2010 ??? Sinusitis, chronic 10/28/2010 ??? Antiphospholipid antibody syndrome 10/28/2010 ??? Edema of both legs 10/28/2010 ??? Miscarriage 10/28/2010 ??? Thyroid nodule 12/30/2010 ??? Amyloidosis 01/17/2011 ??? Amyloidosis cutis 01/18/2011 ??? S/P complete thyroidectomy 07/16/2012 ??? Cardiac tamponade 01/24/2015 ??? Acute bloody pericarditis 01/24/2015 ??? Supratherapeutic INR 01/24/2015 ??? Pleural effusion 01/24/2015 ??? Chronic rhinitis 09/09/2015 Resolved Ambulatory Problems Diagnosis Date Noted ??? No Resolved Ambulatory Problems Past Medical History Diagnosis Date ??? Hypertension ??? Anti-phospholipid antibody syndrome ??? Eczema ??? Herniated disc ??? Anemia, iron deficiency ??? Asthma ??? Pneumonia Your Medications These changes are accurate as of: 09/09/15 1:52 PM. If you have any questions, ask your nurse or doctor. Continued medications, unchanged Dose Details albuterol 90 mcg/actuation Hfaa Commonly known as: PROVENTIL HFA;VENTOLIN HFA;PROAIR Inhale 2 puffs into the lungs every 4 hours as needed for Wheezing. Use with spacer 2 puff Refills: 0 aspirin 81 mg Tbec Take 1 tablet by mouth daily. 81 mg Refills: 0 cetirizine 10 mg Tab Commonly known as: ZyrTEC Take 10 mg by mouth daily. 10 mg Refills: 0 fluticasone 220 mcg/actuation Hfaa Commonly known as: FLOVENT Inhale 2 puffs into the lungs 2 times daily. 2 puff Refills: 0 hydrochlorothiazide 25 mg Tab Commonly known as: HYDRODIURIL daily. Refills: 0 hydroxychloroquine 200 mg Tab Commonly known as: PLAQUENIL Take 1 tablet by mouth 2 times daily. 200 mg Quantity: 60 tablet Refills: 3 ibuprofen 800 mg Tab Commonly known as: ADVIL;MOTRIN Take 1 tablet by mouth every 8 hours as needed for Pain. 800 mg Quantity: 30 tablet Refills: 12 levothyroxine 112 mcg Tab Commonly known as: SYNTHROID Take 125 mcg by mouth daily. 125 mcg Refills: 0 predniSONE 5 mg Tab Commonly known as: DELTASONE Take 5 mg by mouth daily. 5 mg Refills: 0 simvastatin 20 mg Tab Commonly known as: ZOCOR Take 20 mg by mouth nightly. 20 mg Refills: 0 TYLENOL EXTRA STRENGTH 500 mg Tab Take by mouth as needed. Take 1-2 tabs of the (500mg) Tablets Generic drug: acetaminophen Refills: 0 STOPPED Medications ipratropium 0.06 % [place] Commonly known as: ATROVENT Stopped by: Raegan Del Rio MD levalbuterol 45 mcg/actuation Hfaa Commonly known as: XOPENEX HFA Stopped by: Raegan Del Rio MD No Known Allergies FH: non contributory for this visit SH: former smoker Env. survey: 2 cats, 1 dog, no smoking , + woodstove Review of Systems HENT: Positive for congestion, nosebleeds and postnasal drip. Eyes: Positive for redness and itching. Respiratory: Positive for cough, chest tightness and shortness of breath. Gastrointestinal: Reflux Musculoskeletal: Positive for myalgias and arthralgias. Neurological: Positive for weakness, numbness and headaches. Hematological: Bruises/bleeds easily. Psychiatric/Behavioral: Depression/anxiety All other systems reviewed and are negative. Objective: Physical Exam Constitutional: No distress. HENT: Right Ear: External ear normal. Left Ear: External ear normal. Mouth/Throat: Oropharynx is clear and moist. irritated area on nasal septum, L>R, which is scabbed over Eyes: Right eye exhibits no discharge. Left eye exhibits no discharge. Neck: Neck supple. Cardiovascular: Normal heart sounds. Pulmonary/Chest: Breath sounds normal. Musculoskeletal: normal gait and station Skin: No rash noted. Psychiatric: Thought content normal. Vitals Office Visit from 09/09/2015 in Allergy Weight - Scale 90.266 kg (199 lb) Height 162.6 cm (5' 4) BSA (Calculated - sq m) 2.02 sq meters BMI (Calculated) 34.2 Heart Rate 69 BP 141/76 mmHg PFTs done today in pul.lab : results given pre- and post-B.D. FVC 79 / 78 % pred. FEV1 81 / 81 % pred. FEV1/FVC 101 / 104 % pred. FEF 25 75 92 / 103 % pred. Spirometry read as borderline normal Assessment and Plan: 1) Moderate persistent asthma Francie has had worsening shortness of breath with minimal exertion for several mos., as well as nocturnal awakenings ~ 4x/wk. and interference with ADL. She currently uses albuterol ~ once a week . She is currently on 5 mg prednisone/day (had been on higher doses last year -she has been diagnosed with lupus and sees Dr Lowe in Rheum.) She reports that PFTs done last year at [facility] were normal, but that report is not available to me today, therefore I asked that she have it sent to me for review. PFTs done today in Pul. lab are as noted above and were read as borderline normal. Will extend workup with DLCO and pulse oximetry while ambulating. As I told her , her symptoms of shortness of breath may be in part , but perhaps not entirely , due to asthma, as deconditioning may also be playing a role. She does report that she is not very active during the winter months. For now, she will continue Flovent 220 2 puffs bid with a spacer and rinse/gargle after use. She will check with her PCP re: if/ when Pneumovax was given-if she has not received this, I recommend that it be given . 2) Chronic rhinitis, with nasal congestion as prominent symptom She has evidence on exam today of irritation of nasal septum, therefore, advised that she d/c the nasal rx spray ( she will let me know the name of this ) and use nasal saline spray or saline gel for 2-3 wks. instead . It is unlikely that Zyrtec or Mucinex will make much of a difference regarding her nasal congestion therefore she may d/c these. 60 min. visit, 40 min. spent in counseling the pt. on the above issues and in answering questions documented in this encounter Plan of Treatment Not on filedocumented as of this encounter Results Pulmonary Function Testing (09/11/2015 [...] obstructive asthma Chronic obstructive asthma, unspecified Chronic rhinitis Chronic obstructive asthma Chronic obstructive asthma, unspecified documented in this encounter Care Teams Licensing Services Clerk Relationship Specialty Start Date End Date Kunal Nesbitt MD PCP - General Family Medicine 06/09/15 04/03/16 documented as of this encounter
--- OUTSIDE RECORDS SUMMARY | 2022-05-27 14:53 | XMS_ITS | Encounter Summary ---
:1960 Author Organization [facility] Address [address] [place] [address] Care Team Providers Name Role Phone Kunal Nesbitt MD Primary Care Provider Encounter Details Date Type Department Care Team Description 07/06/2015 Office Visit Rheumatology at [facility] Patricio Lowe SLE (systemic lupus erythema tosus); [facility] MD Sravan Antiphospholipid antibody positive; [facility] Pericarditis in systemic lup us erythematosus; [place], [place] CENTER Lupus anticoagulant positive [phone] RHEUMATOLOGY [phone] [place] [address] Social History Tobacco Use Types Packs/Day Years [...] Sign Reading Time Taken Comments Blood Pressure 139/66 07/06/2015 12:00 PM EST Pulse 66 07/06/2015 12:00 PM EST Temperature 36.6 ??C (97.8 ??F) 07/06/2015 12:00 PM EST Respiratory Rate - - Oxygen Saturation 97% 07/06/2015 12:00 PM EST Inhaled Oxygen Concentration - - Weight 90.7 kg (200 lb) 07/06/2015 12:00 PM EST Height 165.1 cm (5' 5) 07/06/2015 12:00 PM EST Body Mass Index 33.28 07/06/2015 12:00 PM EST documented in this encounter Patient Instructions Patient InstructionsPatricio Lowe MD - 07/06/2015 12:39 PM EST 1. Lab work today 2. Stay on Prednisone and Plaquenil medications 3. Plan on getting colonoscopy through Dr Nesbitt 4. Return in [address] Lowe 5. Work on walking longer distances on a daily basis. documented in this encounter Progress Notes Patricio Lowe MD - 07/06/2015 12:20 PM EST Subjective: Patient ID: Francie Yusuf is a 55 y.o. female last seen in 2012 with a background of anti-phospholipid syndrome (on coumdin since 2001 after white matter changes identified on MRI. Anti-Cardiolipin. IgG and IgM positive, Anti- Beta 2 Glycoprotein positive. IgM 82, lupus Anticoagulant negative and YELENA 1 :640. No clots); amyloidosis cutis (no evidence of systemic amyloid) and hypothyroidism. Last seen in 2012 with isolated anti-phospholipid syndrome which has been well controlled on coumadin for > 10 years in terms of HANSEN, paresthesias. Had skin biopsy summer 2014 felt to be more c/w SLE, no amyloid seen Bone marrow biopsy in : negative for amyloid. No iron seen, presumed deficiency perhaps due to several episodes of hemorrhage in pericardium and lung Interval History: When last seen in February, she was doing well and we planned on tapering her prednisone to 5 mg/d. Mistakenly, she was feeling so well that she tapered off prednisone and within 1-2 weeks had recurrent left sided chest pain presumed due to pericarditis, admitted to cardiology and started on prednisone 20mg/d in April. Cardiac echo was negative. She was put on a slow prednisone taper and has been on 5 mg/d since 06.15.15. 1. Left sided chest wall pain: not much better. Still persistent. Notes that ibuprofen seems to be quite effective 2. Insomnia/Weight gain: bother her 3. LE edema seems controlled 4. Breathing is good, sometimes uses inhaler at night 5. Episode of diverticulitis 4-5 weeks ago with LLQ pain. A colonoscopy was proposed. No arthritis or joint symptoms Review of Systems Constitutional: No fevers, chills, malaise improved Skin: no rashes no Raynauds HEENT: ++ [...] CXR and echocardiogram. She was transferred to [facility] s/p IR [...] 2. Venous stasis disease Objective: Physical Exam Healthy appearing woman looking stated age in NAD. She has gained weight Blood pressure 139/66, pulse 66, temperature 36.6 ??C (97.8 ??F), temperature source Oral, height 165.1 cm (5' 5), weight 90.719 kg (200 lb), SpO2 97 %. Skin exam: No UE bruising . No telangectasias. Brownish elevated plaques on LE, largest is 3 cm across, most are <0.5 cm. Normal nailfold exam. No digital ulcers, cuticular overgrowth. There no longer is significant lower extremity swelling. HEENT: moist mucus membranes, +salivary pooling. Mild submandibular tenderness, no parotid enlargement. Neck supple JVD<5 cm. no bruits. Chest: decreased breath sounds left base unchanged. Diffuse sternochondral tenderness, mild, no splinting Cor: RR no rub Abd: normal Joint exam UE joint exam: normal except for marichuy OA. No active synovitis Extremities: edema trace if at all Neuro: non-focal Assessment and Plan: Lots of issues, both acute symptomatic and chronic management in character, but overall, considerable improvement and stability 1. Left sided chest wall pain: Pleural or pericardial, not much change with prednisone, so will taper while using ibuprofen on a schedule 2-3 x a day, allowing 8 hours before and 3 hours after taking ASA. Leave on prednisone 5 mg/d 2. Systemic Lupus Erythematosus: With pleuritis, pericarditis, + YELENA and consumption of complement C3, C4, ANITA today 3. Iron Deficiency/Diverticulitis: Two reasons for colonoscopy. Plan 1. Labs today including C4, C3, ANITA 2. Colonscopy through PCP Dr. Nesbitt 3. Return in 3 months, no change in Prednisone/Plaquenil Level 4 follow up Patricio Lowe M.D. Addendum: ESR normal. Low C3, C4, low titer Ro. Note sent to patient to exercise and stay on meds. documented in this encounter Plan of Treatment Scheduled Orders Name Type Priority Associated Diagnoses Order S chedule C3 Complement Lab Routine SLE (systemic lupus Expecte d: 07/06/2015, erythematosus) Expires: 06/15 C4 Complement Lab Routine SLE (systemic lupus Expecte d: 07/06/2015, erythematosus) Expires: 06/15 documented as of this encounter Procedures Procedure Name Priority Date/Time Associated Diagnosis Comme nts EXTRACTABLE NUCLEAR Routine 07/06/2015 12:57 SLE (systemic lup us Results for this ANTIGEN (ANITA) AB PM EST erythematosus) procedure are in the results section. HEMOGRAM Routine 07/06/2015 12:57 Pericarditis in Results for this PM EST systemic lupus procedure are in erythematosus the results Lupus anticoagulant section. positive DIFFERENTIAL, Routine 07/06/2015 12:57 Pericarditis in Results for this AUTOMATED PM EST systemic lupus procedure are in erythematosus the results Lupus anticoagulant section. positive SEDIMENTATION RATE Routine 07/06/2015 12:57 Pericarditis in Re sults for this PM EST systemic lupus procedure are in erythematosus the results Lupus anticoagulant section. positive CBC (WITH DIFF) Routine 07/06/2015 12:57 Pericarditis in PM EST systemic lupus erythematosus Lupus anticoagulant positive C3 COMPLEMENT Routine 07/06/2015 12:57 Pericarditis in Results for this PM EST systemic lupus procedure are in erythematosus the results Lupus anticoagulant section. positive C4 COMPLEMENT Routine 07/06/2015 12:57 Pericarditis in Results for this PM EST systemic lupus procedure are in erythematosus the results Lupus anticoagulant section. positive documented in this encounter Results (ABNORMAL) Differential, Automated (07/06/2015 12:57 PM EST) [facility] Method Time Signature Neutrophils % 84.9 % CERNER MILLENNIUM Neutr Abs (ANC) 7.10 (H) 1.50 - CERNER 6.30 MILLENNIUM x10(3)/mc L Lymphocytes % 9.4 % CERNER MILLENNIUM Lymphocytes Abs 0.8 (L) 1.0 - 3.6 CERNER x10(3)/mc MILLENNIUM L Monocytes % 4.5 % CERNER MILLENNIUM Monocyte Abs 0.4 0.2 - 1.0 CERNER x10(3)/mc MILLENNIUM L Eosinophils % 1.0 % CERNER MILLENNIUM Eosinophils Abs 0.1 0.0 - 0.5 CERNER x10(3)/mc MILLENNIUM L Basophils % 0.1 % CERNER MILLENNIUM Basophils Abs 0.0 0.0 - 0.2 CERNER x10(3)/mc MILLENNIUM L Immature Gran % 0.10 % CERNER MILLENNIUM Comment: Immature granulocytes(IG's)percentage an d absolute count will include metamyelocytes, myelocytes, and promyelo cytes. Blood smears from CBCs yielding IG's will be scanned manually for concor dance. If this scan disagrees with the automated IG or if promyelocytes are not ed, a manual differential will be performed. Cheryl Gran Abs 0.01 0.00 - 0.05 x10(3)/mcL CER NER MILLENNIUM Specimen Anatomical Collection Method Collection Time Receive d Time (Source) Location / / Volume Laterality Blood specimen 07/06/2015 12:57 5 1:05 (specimen) PM EST PM EST Resulting Agency Comment Spec In Lab Patricio Lowe MD HEMATOLOGY ORDERABLES Performing Organization Address City/State/[place] [address] CERNER MILLENNIUM Hemogram (07/06/2015 12:57 PM EST) P athologist Signature WBC 8.4 4.0 - 10.0 CERNER x10(3)/mcL MILLENNIUM RBC 5.03 3.93 - 5.22 CERNER x10(6)/mcL MILLENNIUM Hemoglobin 13.6 11.2 - 15.7 CERNER gm/dL MILLENNIUM Hematocrit 40.5 34.0 - 45.0 CERNER % MILLENNIUM MCV 80.5 79.0 - 94.0 CERNER fL MILLENNIUM MCH 27.0 26.6 - 32.2 CERNER pg MILLENNIUM MCHC 33.6 32.0 - 36.5 CERNER gm/dL MILLENNIUM Platelets 288 145 - 370 CERNER x10(3)/mcL MILLENNIUM RDWSD 42.4 35.0 - 46.0 CERNER fL MILLENNIUM RDWCV 14.4 10.9 - 14.4 CERNER % MILLENNIUM MPV 9.8 9.0 - 12.0 CERNER fL MILLENNIUM Specimen Anatomical Collection Method Collection Time Receive d Time (Source) Location / / Volume Laterality Blood specimen 07/06/2015 12:57 5 1:05 (specimen) PM EST PM EST Resulting Agency Comment Spec In Lab Patricio Lowe MD HEMATOLOGY ORDERABLES Performing Organization Address City/[facility]/ZIP Code Phon e Number [address] CERNER MILLENNIUM (ABNORMAL) C4 Complement (07/06/2015 12:57 PM EST) P athologist Signature C4 Complement 3 (L) 10 - 40 [facility] mg/dL [facility] Spec[facility] Anatomical Collection Method Collection Time Receive d Time (Source) Location / / Volume Laterality Blood specimen 07/06/2015 12:57 5 1:05 (specimen) PM EST PM EST Resulting Agency Comment Spec In Lab Patricio Lowe MD CHEMISTRY ORDERABLES Performing Organization Address City/[facility]/ZIP Code Phon e Number [address] CERNER MILLENNIUM (ABNORMAL) C3 Complement (07/06/2015 12:57 PM EST) P athologist Signature C3 Complement 83 (L) 90 - 180 [facility]ER mg/dL [facility] Specimen Anatomical Collection Method Collection Time Receive d Time (Source) Location / / Volume Laterality Blood specimen 07/06/2015 12:57 5 1:05 (specimen) PM EST PM EST Resulting Agency Comment Spec In Lab Patricio Lowe MD CHEMISTRY ORDERABLES Performing Organization Address City/[facility]/[place] [address] CERNER MILLENNIUM Sedimentation rate (07/06/2015 12:57 PM EST) P athologist Signature Sed Rate 9 0 - 20 CERNER mm/hr MILLENNIUM Specimen Anatomical Collection Method Collection Time Receive d Time (Source) Location / / Volume Laterality Blood specimen 07/06/2015 12:57 5 1:05 (specimen) PM EST PM EST Resulting Agency Comment Spec In Lab Patricio Lowe MD HEMATOLOGY ORDERABLES Performing Organization Address City/State/[place] [address] CERNER MILLENNIUM (ABNORMAL) Extractable Nuclear Antigen (ANITA) Ab (07/06/2015 12:57 PM EST) [facility] Method Time Signature ANITA Ab CERNER Test ?Result ?Flag ??Unit ??RefValue MILLENNIUM Ab to Extractable Nuclear Ag Eval,S ??SS-A/Ro Ab, IgG, S ?1.0 ?H ?U -- REFERENCE VALUE -- <1.0 (Negative) Interpretation: Positive (>=1.0) ??SS-B/La Ab, IgG, S ?<0.2 ?U -- REFERENCE VALUE -- <1.0 (Negative) ??Sm Ab, IgG, S ? <0.2 ? U -- REFERENCE VALUE -- <1.0 (Negative) ??SENIOR ACCOUNTING ASSOCIATE Ab, IgG, S ?0.4 ? U -- REFERENCE VALUE -- <1.0 (Negative) ??Scl 70 Ab, IgG, S ? <0.2 ?U -- REFERENCE VALUE -- <1.0 (Negative) ??Duyen 1 Ab, IgG, S ? <0.2 ?U -- REFERENCE VALUE -- <1.0 (Negative) Test Performed by: [place] [address] Dispatcher [employer]: Kerri Olson, Ph.D. (A) Specimen Anatomical Collection Method Collection Time Receive d Time (Source) Location / / Volume Laterality Blood specimen 07/06/2015 12:57 5 3:47 (specimen) PM EST PM EST Resulting Agency Comment Spec In Lab Patricio Lowe MD IMMUNOLOGY ORDERABLES Performing Organization Address City/State/[place] [address] [facility] documented in this encounter Visit Diagnoses Diagnosis SLE (systemic lupus erythematosus) Systemic lupus erythematosus Antiphospholipid antibody positive Other and unspecified nonspecific immuno logical findings Pericarditis in systemic lupus erythemat osus Systemic lupus erythematosus Lupus anticoagulant positive Other and unspecified nonspecific immuno logical findings documented in this encounter Care Teams Battery Charger Tester Relationship Specialty Start Date End Date Kunal Nesbitt MD PCP - General Family Medicine 06/09/15 04/03/16 documented as of this encounter
--- OUTSIDE RECORDS SUMMARY | 2022-05-27 14:53 | XMS_ITS | Encounter Summary ---
:1960 Author Organization [facility] [place] [address] Care Team Providers Name Role Phone Kunal Nesbitt MD Primary Care Provider Reason for Visit Reason Comments Shortness of Breath Auth/Cert Specialty Diagnoses / Procedures Referred By Contact Refer red To Contact Diagnoses Chest pain Hypoxia Chest pain, unspecified chest pain type Procedures chest pain Referral ID Status Reason Start Date Expiration Date Visits Requ ested Visits Authorized [id number] 1 1 Encounter Details Date Type Department Care Team Description 11/05/2015 - [address] Diana Masters MD [facility] [place] [address] Chest pain, unspecified chest pain type; 11/09/2015 Encounter [place]án [place] [address] SOB (shortness of breath); [facility] [place] [address] ILD (interstitial lung disease); [facility] [place] [place] [address] Chest pain, unspecified; [address] [place] [address] Nonspecific abnormal electrocardiogram ( ECG) (EKG); [place], [place] [address] Antiphospholipid syndrome [id number] Social History Tobacco Use Types Packs/Day Years [...] Sign Reading Time Taken Comments Blood Pressure 150/78 11/09/2015 7:53 AM EDT Pulse 65 11/09/2015 7:53 AM EDT Temperature 36.5 ??C (97.7 ??F) 11/09/2015 7:53 AM EDT Respiratory Rate 20 11/09/2015 7:53 AM EDT Oxygen Saturation 98% 11/09/2015 7:53 AM EDT Inhaled Oxygen Concentration - - Weight 90.9 kg (200 lb 6.4 oz) 11/05/2015 11:24 PM EDT Height 162.6 cm (5' 4) 11/05/2015 11:24 PM EDT Body Mass Index 34.4 11/05/2015 11:24 PM EDT documented in this encounter Discharge Summaries Cm Stafford MD - 11/09/2015 2:17 PM EDT Discharge Summary Patient Name: Francie Yusuf Patient Age: 55 y.o. Language: Palestinian Race: White Ethnicity: Not nor Admit date: 11/05/2015 Discharge date and time: 11/09/2015 2:32 PM Attending Physician: Cm Stafford MD Discharge Physician: CM STAFFORD MD Follow-up Recommendations for Providers: 1. TPMT enzyme levels are pending at discharge. 2. Consider bisphosphonate treatment if steroids are to be prolonged. Inpatient Provider Contact Information: For questions regarding this document or issues relating to this hospitalization on the Medical Service, please contact your inpatient physician through the [facility] [employer] . Issues after hours and on weekends will be handled by the Hospitalist staff on-call. Discharge Diagnoses (Hospital Problems) and Secondary Diagnoses (Chronic Problems): Active Hospital Problems Diagnosis ??? Chest pain ??? Hypoxia Resolved Hospital Problems Diagnosis Date Resolved No resolved problems to display. Active Non-Hospital Problems Diagnosis ??? Chronic rhinitis ??? S/P complete thyroidectomy ??? Amyloidosis cutis ??? Amyloidosis ??? Thyroid nodule ??? Lumbar disc herniation with radiculopathy ??? Asthma ??? Sinusitis, chronic ??? Edema of both legs ??? Miscarriage Operations/Major Procedures: Operations: Other Major Procedures: None History of Presentation: Francie Yusuf is a 55 y.o. female w/ hypothyroidism, lupus (with anti-phos Ab, on chronic prednisone, with chronic left sided chest pain), amyloidosis, asthma, chronic sinusutis who presents to the ED with ongoing SOB and sinus congestion. Her symptoms started 8-9 weeks ago with a usual URI, but then she worsened after a small period getting better with sinus congestion, shortness of breath. She has had antibiotics x 4 treatment courses with no improvement (azithromycin, clarithromycin, bactrim, levofloxacin). Finally, she presented to [facility] for SOB yesterday, and was given a nebulized therapy and discharged on prednisone 80mg PO QD. She doesn't feel that the prednisone has helped. She has substernal chest pain that is worse with coughing and movement, is 3/10, and is unlike anything she has felt before. She has NOBLE, fatigue, and desaturates to the low 90s on RA with minimal walking about the room while I am talking to her. In the ED, EKG is done showing possible ST depressions laterally and the ED staff would like her observed overnight for cardiac rule-out. However, CT PE is also done showing no PE but showing patchy airspace disease. Hospital Course: The patient was admitted to the medicine service. Pulmonary and Rheumatology consultations were obtained. The etiology of her lung findings was felt to be SLE. The summary from her Pulmonary consult isas follows: Complex and curious 55 yo woman with hx of lupus, who presented initially with some BUSINESS SUPPORT LIAISON problems andthen later with pericarditis.?? Responded to prednisone, and maintained by Dr. Lowe successfully on5 mg/d and Plaquenil, at least until last few weeks when she has begun feeling fatigue, malaise, mild dyspnea, and respirophasic chest pains. Has had several courses of antibiotics, w/o impact and CT done yesterday revealed no PE, but patchy GGO predominantly in subpleural regions. She is not immunocompromised, so there is no indication for BAL to r/o OI. 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 This is not amenable to diagnosis with transbronchial biopsy, and would require VATS bx to confirm. However, ILD in the setting of a known connective tissue disease is not an indication for a lung biopsy (what can we learn?), but rather an indication for more aggressive antiinflammatory therapy.?? Though she has responded to 20 mg/d for her prior manifestations, the presence of lupuslung raises the stakes, and would recommend continuing the 80 qd for at least a few more days prior to re-evaluation. Discussed with Dr. Lowe who is in agreement with this. Rheumatology was in agreement. She was started on Prednisone 80 mg with some improvement in her symptoms. TPMT enzyme level was checked and is pending at the time of discharge. Bactrim was started for PJP prophylaxis. She did develop some LLE pain, but this was consistent with her prior sciatica. There was no edema, so no LE duplex was checked. IF this continues, would consider a duplex. Vital Signs at Discharge: BP: 150/78 mmHg, Heart Rate: 65, Temp: 36.5 ??C (97.7 ??F), Resp: 20, BMI (Calculated): 34.5 Height: 162.6 cm (5' 4) (11/05/152323) Weight - Scale: 90.901 kg (200 lb 6.4 oz) (11/05/152323) Functional and Cognitive Status: Good Important Studies and Lab Data: Labs: Last 3 wbc, hgb, hct plt Recent Labs 11/08/15 0502 11/07/15 0654 11/06/15 0302 WBC 4.3 3.6* 5.9 HGB 13.4 12.8 13.2 HCT 39.9 38.6 39.4 PLATELET 204 161 213 Last 3 Lytes Recent Labs 11/08/15 0502 11/07/15 0654 11/06/15 0302 NA 142 142 140 K 3.6 3.7 3.4* CL 103 105 97* CO2 27 26 27 BUN 16 17 15 CREATININE 0.72 0.64* 0.85 Last 3 LFTs Recent Labs 04/06/15 1108 03/10/15 1723 02/03/15 1553 AST 19 21 18 ALT 17 22 23 ALKPHOS 67 69 88 BILITOT 0.3 0.3 0.3 BILIDIR 0.1 0.1 0.1 Last CRP, SEDRATE Recent Labs 11/07/15 0654 CRP 63.0 SEDRATE 17 Results for FRANCIE YUSUF ( ) as of 11/09/2015 14:25 Ref. Range 11/05/2015 16:00 11/06/2015 03:02 11/06/2015 09:09 Troponin-T Latest Ref Range: <=0.03 ng/mL <0.03 <0.03 <0.03 CK, Total Latest Ref Range: 0-160 unit/L 145 101 91 Results for FRANCIE YUSUF ( ) as of 11/09/2015 14:25 Ref. Range 11/05/2015 16:00 C3 Complement Latest Ref Range: 90-180 mg/dL 75 (L) C4 Complement Latest Ref Range: 10-40 mg/dL 4 (L) IgG Latest Ref Range: 700-1600 mg/dL 707 IgA Latest Ref Range: 70-400 mg/dL 75 IgM Latest Ref Range: 40-230 mg/dL 187 Results for FRANCIE YUSUF ( ) as of 11/09/2015 14:25 Ref. Range 11/05/2015 16:00 Hepatitis A Ab Latest Ref Range: Negative Negative HepB Surface Ab Unknown Negative HepB Surface Ag Latest Ref Range: Negative Negative Hepatitis C Ab Latest Ref Range: Negative Negative Rapid Virus Antigen Stain DFA Negative for Adenovirus Antigen DFA Negative for Human Metapneumovirus Antigen DFA Negative for Influenza Virus Type A Antigen DFA Negative for Influenza Virus Type B Antigen DFA Negative for Parainfluenza Virus Type 1 Antigen DFA Negative for Parainfluenza Virus Type 2 Antigen DFA Negative for Parainfluenza Virus Type 3 Antigen DFA Negative for Respiratory Syncytial Virus Antigen Studies: CT angiogram of pulmonary arteries ?? FINDINGS: Pulmonary arteries: Normal caliber.?? No intraluminal filling defects. Other cardiovascular structures: No significant findings. No significant pericardial fluid. No pleural fluid. Patchy subsegmental opacities at the lung bases. Unchanged appearance to the 3 mm nodular density in the right upper lobe. A cystic bleb is present at the right lung apex. Patchy focal opacities throughout the left lung periphery. ? Lungs and airways:? No significant findings patchy airspace opacities.. Pleura and pericardium: No significant findings. Mediastinum and hilar structures: No lymphadenopathy. ? Limited views of the upper abdomen: Unchanged appearance to 3 small low-density lesions within the liver, too small to characterize likely representing hepatic cysts. Additional hypodensity noted along the right lobe periphery. ?? IMPRESSION: No acute pulmonary embolism identified. Patchy bilateral airspace opacities are present more significant than on prior study. Inflammatory process is not excluded. Multiple too small to further characterize hypodensities within the liver now numbering approximately 5.?? Statistically given their small size is likely representing a hepatic cysts. Echo: SUMMARY: ?? 1. The left ventricular chamber size is normal. Left ventricular wall thickness is normal. There is normal global left ventricular systolic function. The quantitative left ventricular ejection fraction by biplane Fisher's method is 70%. There are no left ventricular segmental wall motion abnormalities. Doppler assessment is consistent with normal left sided filling pressure. ?? 2. Right ventricular chamber size, wall thickness, and systolic function are within normal limits. The estimated pulmonary artery systolic pressure is 23 mmHg. 3. There is no hemodynamically significant valvular disease. ?? 4. See remainder of report for additional findings.?? Prior study 04/2015 with no major changes. PFT's Restrictive defect, FEV1 and FVC both 65% predicted, with 65% DLCO. Lung volumes not measured. Pending Studies and Lab Data: TPMT Levels Discharge Conditions/Prognosis: Good Discharge to: Home Updated Allergies/ADRs: No Known Allergies Immunizations Given this Hospitalization: Immunization History Administered Date(s) Administered ??? Influenza Vaccine w/Preservative, Split 05/13/2013, 05/14/2014, 04/07/2015 Discharge Medications: Your Medications New Medications Dose Details sulfamethoxazole-trimethoprim 800-160 mg Tab Commonly known as: BACTRIM DS Take 1 tablet by mouth three times a week. 1 tablet Quantity: 20 tablet Refills: 0 Continued medications with new dosing Dose Details levothyroxine 125 mcg Tab Commonly known as: SYNTHROID Take 125 mcg by mouth nightly. What changed: Another medication with the same name was removed. Continue taking this medication, and follow the directions you see here. 125 mcg Refills: 0 predniSONE 20 mg Tab Commonly known as: DELTASONE Take 4 tablets by mouth daily. What changed: - medication strength - how much to take 80 mg Quantity: 80 tablet Refills: 1 Continued medications, unchanged Dose Details albuterol 90 [...] mg Tab Commonly known as: PLAQUENIL Take 2 tablets by mouth daily. 400 mg Quantity: 60 tablet Refills: 6 ibuprofen 800 mg Tab Commonly known as: ADVIL;MOTRIN Take 1 tablet by mouth every 8 hours as needed for Pain. 800 mg Quantity: 30 tablet Refills: 12 simvastatin 20 mg Tab Commonly known as: ZOCOR Take 20 mg by mouth nightly. 20 mg Refills: 0 TYLENOL EXTRA STRENGTH 500 mg Tab Take by mouth as needed. Take 1-2 tabs of the (500mg) Tablets Generic drug: acetaminophen Refills: 0 Smoking Status at Discharge: History Smoking status ??? Former Smoker -- 1.50 packs/day for 15 years ??? Types: Cigarettes ??? Quit date: 08/14/1992 Smokeless tobacco ??? Never Used Instructions Given to Patient at Discharge: Patient Instructions Instruction after leaving the hospital Why you were hospitalized: Lupus Lung Disease Call your doctor or seek medical attention if you develop the following: Increased SOB Activity level: As tolerated Diet: No restrictions Driving: No restrictions Shower/Bath: No restrictions Your Inpatient Doctor(s) at [facility]: CM STAFFORD MD General Instructions None Future Appointments Provider Department Dept Phone 11/09/2015 4:00 PM PFT TEST [facility] Pulmonary Function Testing [phone] 01/18/2016 11:00 AM Patricio Lowe MD Rheumatology [phone] 04/04/2016 2:00 PM LABORATORY, TECH [facility] [phone] 04/04/2016 3:00 PM Kelsey Whitney MD [facility] [phone] 04/04/2016 3:00 PM Farzaneh Valera MD [facility] [phone] Discharge References/Attachments None documented in this encounter Discharge Instructions Patient InstructionsCm Stafford MD - 11/09/2015 2:31 PM EDT Instruction after leaving the hospital Why you were hospitalized: Lupus Lung Disease Call your doctor or seek medical attention if you develop the following: Increased SOB Activity level: As tolerated Diet: No restrictions Driving: No restrictions Shower/Bath: No restrictions Your Inpatient Doctor(s) at [facility]: CM STAFFORD MD documented in this encounter Medications at Time [...] by 0 tablet mouth nightly. predniSONE (DELTASONE) 20 mg Take 4 tablets by 80 tablet 1 11/09/2015 11/25/2016 Tablet mouth daily. sulfamethoxazole-trimethopri Take 1 tablet by 20 tablet 0 0 11/09/2015 12/02/2015 m (BACTRIM DS) 800-160 mg mouth three times Tablet a week. hydroxychloroquine Take 2 tablets by 60 tablet 6 10/08/2015 11/23/2015 (PLAQUENIL) 200 mg Tablet mouth daily. ibuprofen (ADVIL;MOTRIN) 800 Take 1 tablet by 30 tablet 12 0 05/03/2015 02/04/2016 mg Tablet mouth every 8 hours as needed for Pain. hydrochlorothiazide daily. 0 02/03/201504/25 (HYDRODIURIL) 25 mg Tablet acetaminophen (TYLENOL EXTRA Take by mouth as 0 0 01/13/2011 02/22/2017 STRENGTH) 500 mg tablet needed. Reported on 09/19/2016 documented as of this encounter Progress Notes Kirsten Gonzalez RN - 11/09/2015 4:30 PM EDT Patient Name: Francie Yusuf Patient Age: 55 y.o. Birthdate: 1960 Admit date: 11/05/2015 Attending Physician: No att. providers found Pt discharged home. AVS reviewed with pt, all questions answered. All belongings accounted for. PIV removed. Pt left in the care of friend. Cm Stafford MD - 11/09/2015 2:32 PM EDT Hospital Medicine - Attending Day of Discharge Documentation Discharge diagnosis Active Hospital Problems Diagnosis ??? Chest pain ??? Hypoxia Resolved Hospital Problems Diagnosis Date Resolved No resolved problems to display. Secondary Issues Active Non-Hospital Problems Diagnosis ??? Chronic rhinitis ??? S/P complete thyroidectomy ??? Amyloidosis cutis ??? Amyloidosis ??? Thyroid nodule ??? Lumbar disc herniation with radiculopathy ??? Asthma ??? Sinusitis, chronic ??? Edema of both legs ??? Miscarriage I have personally seen and examined the patient and they are ready for discharge. I spent >30 minutes (Day of Discharge Code 44337) involved in the final examination of the patient, discussion of the hospital stay, instructions for continuing care to all relevant caregivers, and preparation of discharge records, prescriptions and referral forms. Case discussed with Pulm. Plan to discharge on 80mg prednisone daily. Bactrim for PJP prophylaxis. F/U with Pulm has been arranged. PFT's reviewed. Plans ? Discharge to Home ? Follow-up scheduled with Pulm ? Please see the Discharge Summary for complete details of any medication changes and additional plans. Didier Oakley PTA - 11/09/2015 11:39 AM EDT Physical Therapy Treatment Note Visit #: 2 Patient Dx: Francie Yusuf is a 55 y.o. female admitted on 11/05/2015 by Tory Teran MD for URI for 8-9 weeks with chest pain.?? Pt transferred from an OSH. She has been on abx and prednisone with little relief of chest pain or shortness of breath.?? Possible ST depression in the ED.?? Cardiac enzymes have been negative. CT negative for PE.?? Suspected PNA vs pulmonary process from Lupus.?? NPO for possible bronchoscopy.?? Rheumatology and pulmonary consulted.?? PT requested.. Precautions: Left sciatica with chronic pain; fall risk; Amyloidosis with plaques LEs with risk to breakdown. Staff communication/Mobility Recommendations: 1. Pt. to utilize no assistive device for ambulation with nursing. ?? 2. Please encourage up to chair for meal times as able. ?? 3. Pt encouraged to ambulate frequently with staff, getting into the bathroom for toileting and walking out in the barrios >/= 3 times daily as able. 4. Use walker or a cane if sciatica pain. Interval History: tolerating RA S: That was the biggest workout I've had since I've been here O: Patient seen for 20 mins for strength, endurance, and functional mobility to address goals. Pt demonstrated the following ?? Seated upright in chair, agreeable to therapy ?? Sit - stand with supervision, no AD ?? Ambulate x200ft with supervision, no AD, steady, step through gait ?? Ascend/Descend one flight of stairs, using step to step gait and one hand rail ?? Sit-supine on a flat bed with supervision ?? Supine to sit on a flat bed with supervision 30 Second Chair Stand Test Score: 10 Comments: VC to remind pt she was trying to do as many as possible, anticipate pt should be able to complete the same amount for the 60-64 age group but still below the 25th percentile Normal Values: As specified below. Scores less than 8 (unassisted) stands are associated with lower levels of functional ability Range of scores between the 25% and 75% percentiles Age Number of stands - Women Number of stands - Men 60 - 64 12 - 17 14 - 19 65 - 69 11 - 16 12 - 18 Adam RE, Brenden CJ (1999). Functional fitness normative scores for community residing older adults ages 60-94. Journal of Aging and Physical Activity, 7, 160-179. ?? Left pt seated in chair, all needs met, nursing aware Pain: Did no c/o of pain Education: Pt/family education ongoing regarding strength, endurance, functional mobility and the role of therapy. A: Pt presents with sufficient strength, endurance and safety awareness to perform bed mobility, ambulate, ascend and descend stairs. Pt does not require an assistive device. Encourage pt to ambulate as much as possible during her hospital stay and after discharge. At this point in time, pt has met all in-pt therapy goals and is safe for discharge when medically ready. Physical Therapy Goals: 1. Pt. to demonstrate understanding of appropriate exercises. MET 2. Pt. to perform bed mobility with modified independence with HOB flat. MET?? 3. Pt. to perform sit to and from stand transfers with modified indepence and LRAD ??MET 4. Pt. to ambulate >150 feet with independent with increased time using a LRAD. MET 5. Pt. to ambulate up/down 2 step/stairs with supervision, using?? one railing and straight cane. MET 6. Family or caregiver to demonstrate understanding of therapeutic interventions to support the careof the patient. MET Discharge Recommendations: Based on the current findings noted during this evaluation, patient could benefit from Outpatient Therapy Services when medically ready for hospital discharge. ?? This recommendation is based on the patient's Current physical impairments, Prior functional status,Potential to return to prior level of function and Patient motivation and may change based on patient progress during this hospitalization. P: Cont per POC as outlined on 3..15. Total time spent with patient: 20 minutes Total timed interventions: 20 minutes Pt seen and note written in conjunction w/ POONAM Bruce Pager: [phone] Didier Oakley PTA Physical Therapy Rehabilitation Department Fracisco García - 11/09/2015 11:08 AM EDT IN-PATIENT PULMONARY FOLLOW UP NOTE: Primary Team: Hospital Medicine Dr Stafford Consulting Attending: Dr Lemus This is a 55 y.o. female admitted to [facility] on 11/05/2015 3:21 PM and seen initially by the pulmonary consult service on 11/06/15 for new patchy ggo and mild hypoxemia in the setting of lupus on hydroxychloroquine and prednisone 5mg daily. Also background lupus and antiphospholipid syndrome Interval History: Over the weekend started prednisone 80mg daily with some symptomatic benefit No fever, less oxygen required A little less wheezy Feels legs are a little more swollen and amyloid skin changes more prominent ??? sulfamethoxazole-trimethoprim 1 tablet Oral Once per day on Mon ??? hydrochlorothiazide 25 mg Oral Daily ??? predniSONE 80 mg Oral Daily ??? aspirin 81 mg Oral Daily ??? loratadine 10 mg Oral Daily ??? hydroxychloroquine 400 mg Oral Daily ??? levothyroxine 125 mcg Oral Nightly ??? simvastatin 20 mg Oral QPM ??? sodium chloride 0.9 % 5 mL Intravenous BID ??? senna-docusate 2 tablet Oral BID Physical Exam: BP 150/78 mmHg Pulse 65 Temp(Src) 36.5 ??C (97.7 ??F) (Oral) Resp 20 Ht 162.6 cm (5' 4) Wt 90.901 kg (200 lb 6.4 oz) BMI 34.38 kg/m2 SpO2 98% RA Less wheezy than a few days ago Cutaneous amyloid on legs with a little venous congestion Data: Lab Results Component Value Date WBC 4.3 11/08/2015 HGB 13.4 11/08/2015 HCT 39.9 11/08/2015 PLATELET 204 11/08/2015 No new data since last seen Assessment: In discussion with her primary control systems designer it seems most likey that this is a flare of lupus withpulmonary involvement Seems to be responding well to prednisone so far Recommendations: Consider LE dopplers to exclude DVT (has refused heparin, less mobile, calf symptoms and known antiphospholipid symdrome) PFTs today pre discharge (I have ordered and PFT lab will schedule) Prednisone and steroid sparing agents per rheumatology Would start PJP prophylaxis with Bactrim given likely significant steroid doses for a while We will see in pulmonary clinic at follow up Doesn't necessarily need inhaled corticosteroid if on po steroids Patient see with Dr Alcala and recommendations discussed with Dr Binta GARCÍA MD Pulmonary and Critical Care Fellow Pager [phone] Associated attestation - Kolby Lemus MD - 11/09/2015 2:19 PM EDT Pulmonary/CCM Attending I have independently interviewed and examined the patient on rounds and discussed recommendations with Dr. Stafford. I agree with the documented findings of the fellow, Dr. García, and make the following additions and/or revisions: Very interesting lady followed by Dr. Lowe in rheumatology clinic foranti-phospholipid antibody syndrome, cutaneous amyloidosis, and what appears to be lupus erythematosus (prominent history of serositis). She was admitted with respiratory insufficiency and pulmonary infiltrates. I agree with prevailing opinions that this probably represents lupus pneumonitis, now being treated with prednisone. On examination, she has prolonged expiratory phase and late-expiratory central wheezing. On the legs were seen violaceous plaques consistent with her amyloidosis, although there was more venous congestion than I expected. No palpable cord, however. She has not been accepting heparin prophylaxis. I agree with TMP-SMX prophylaxis, DVT study of legs (as high-risk patient), and PFT today, the latter of which will serve as good baseline for future follow-up. KOLBY LEMUS MD 11/09/2015 2:19 PM Shana Ortez RN - 11/08/2015 2:57 PM EDT Patient Name:Francie Yusuf [facility] Telemetry Note Diagnosis r/t telemetry: Chest discomfort Subjective: I think my chest discomfort is a little better today; 09/23 Objective: Pt denies dizziness/lightheadedness, worsened SOB. VSS BP: 132/69 HR 83 Rhythm Sinus rhythm/sinus bradycardia; Rare PJCs and Rare non-sustained junctional rhythm RR 22 Pox 98% on RA Cardiac meds Hydrochlorothiazide restarted today, as ordered Assessment: Pt tolerating rate and rhythm. Plan: Dr. Brantley notified of rare PJCs. Continue tele monitoring, assess hemodynamic tolerance of dysrhythmia, see tele strip (in paper chart). NT Sylvia Brantley MD - 11/08/2015 9:45 AM EDT Hospital Medicine Attending Daily Progress Note Admit Date: 11/05/2015 Hospital Day 3 days Active Hospital Problems Diagnosis ??? Chest pain ??? Hypoxia Resolved Hospital Problems Diagnosis Date Resolved No resolved problems to display. PMH Active Non-Hospital Problems Diagnosis ??? Chronic rhinitis ??? S/P complete thyroidectomy ??? Amyloidosis cutis ??? Amyloidosis ??? Thyroid nodule ??? Lumbar disc herniation with radiculopathy ??? Asthma ??? Sinusitis, chronic ??? Edema of both legs ??? Miscarriage Inpatient Medications: Scheduled ??? potassium chloride 40 mEq Oral Once ??? predniSONE 80 mg Oral Daily ??? aspirin 81 mg Oral Daily ??? loratadine 10 mg Oral Daily ??? hydroxychloroquine 400 mg Oral Daily ??? levothyroxine 125 mcg Oral Nightly ??? simvastatin 20 mg Oral QPM ??? sodium chloride 0.9 % 5 mL Intravenous BID ??? senna-docusate 2 tablet Oral BID ??? mometasone 220 mcg Inhalation BID Continuous infusions: PRN: acetaminophen, ibuprofen, sodium chloride 0.9 %, lidocaine, ondansetron OR ondansetron, zolpidem Interval History: No acute events overnight C. Diff negative Subjective/ROS: Patient reports breathing is about the same and she can occasionally hear wheezes. Chest pain seems to be improving but still has pain with deep breathes. Having LLE pain from sciatica. No nausea, vomiting, or abdominal pain. Physical Exam Vitals Range last 24 hrs Temperature Temp: [36.4 ??C (97.5 ??F)-36.6 ??C (97.9 ??F)] Heart Rate Heart Rate: [57-72] Blood Pressure BP: (126-148)/(62-70) Respiratory Rate Resp: [18-22] SpO2 SpO2: [96 %-99 %] No intake or output data in the 24 hours ending 11/08/15 0945 Patient Vitals for the past 168 hrs: Weight 11/05/15 2324 90.901 kg (200 lb 6.4 oz) Body mass index is 34.38 kg/(m^2). Physical Exam General: Pleasant female laying in bed in [facility]. HEENT: MMM. Cardio/chest: (+)Mild tenderness on palpation of chest. Normal s1/s2. RRR. No m/r/g. Resp: Crackles at left lung base. Diffuse rhonchi. Abd: (+)BS. Soft. NT. ND. Ext: No BLE edema. Skin: Warm and dry. No rashes. Neuro: AAO x 3. Grossly intact. Studies reviewed in eDH. Remarkable for the following: LABS: Recent Labs 11/08/15 0502 11/07/15 0654 11/06/15 0302 WBC 4.3 3.6* 5.9 HGB 13.4 12.8 13.2 HCT 39.9 38.6 39.4 PLATELET 204 161 213 Recent Labs 11/05/15 1600 INR 0.9 Recent Labs 11/08/15 0502 11/07/15 0654 11/06/15 0302 NA 142 142 140 K 3.6 3.7 3.4* CL 103 105 97* CO2 BUN 16 17 15 CREATININE 0.72 0.64* 0.85 No results for input(s): AST, ALT, ALKPHOS, BILITOT, BILIDIR in the last 168 hours. Recent Labs 11/08/15 0502 11/07/15 0654 11/06/15 0302 CALCIUM 7.1* 7.0* 7.4* Recent Labs 11/06/15 0909 11/06/15 0302 11/05/15 1600 CK 91 101 145 TROPONINT <0.03 <0.03 <0.03 No results for input(s): HA1C in the last 7068 hours. FSBG Trend No results for input(s): POCGLU in the last 72 hours. MICRO: No results for input(s): URINECULTURE in the last 720 hours. No results for input(s): GRAMSTAIN, BFCX, LOWERRESPCX, TISSUECX in the last 720 hours. No results for input(s): BLOODCX in the last 720 hours. ECG: Recent Labs 11/05/15 1516 DIAGLINE Normal sinus rhythm Poor R wave progression Possible Left atrial enlargement Inferior infarct (cited on or before 22-JAN-2015) Nonspecific ST and T wave abnormality When compared with ECG of 01-MAY-2015 16:42, No significant change was found Confirmed by MD BARRERA, LATASHA ([id number]) on 11/06/2015 10:29:57 PM QTCCALC 473 VASCULAR: No results for input(s): VBTEXTRPT in the last 720 hours. IMAGING: CXR 11/05/15 IMPRESSION: ?? No acute cardiopulmonary process. CT CHEST 11/05/15 IMPRESSION: No acute pulmonary embolism identified. Patchy bilateral airspace opacities are present more significant than on prior study. Inflammatory process is not excluded. Multiple too small to further characterize hypodensities within the liver now numbering approximately 5.?? Statistically given their small size is likely representing a hepatic cysts. ?? OTHER Studies: Echo 11/07/15 SUMMARY: ?? 1. The left ventricular chamber size is normal. Left ventricular wall thickness is normal. There is normal global left ventricular systolic function. The quantitative left ventricular ejection fraction by biplane Fisher's method is 70%. There are no left ventricular segmental wall motion abnormalities. Doppler assessment is consistent with normal left sided filling pressure. ?? 2. Right ventricular chamber size, wall thickness, and systolic function are within normal limits. The estimated pulmonary artery systolic pressure is 23 mmHg. 3. There is no hemodynamically significant valvular disease. ?? 4. See remainder of report for additional findings.?? Prior study 04/2015 with no major changes. Pericardium: The pericardium appears normal and there is no evidence of a pericardial effusion. ?? Assessment: Francie Yusuf is a 55 yo female with a PMH significant for antiphospholipid syndrome (anticardiolipin IgG and IgM positive)/SLE (YELENA pos, hypocomplementemia, h/o hemopericarditis and inflammatory pericarditis), amyloidosis cutis, asthma, chronic sinusitis, and hypothyroidism who presents with increasing shortness of breath, chest pain, and fatigue. Of note, about 8-9 weeks ago she developed nasal congestion, sinus pressure, headaches, and fatigue. Given her h/o sinus infections, she was was given four courses of antibiotics (Augmentin, clarithromycin, Bactrim, levofloxacin) without improvement. CTnegative for PE but shows patchy bilateral airspace opacities. Appreciate rheumatology and pulmonaryconsults. Currently, there is concern that the patient has lung involvement of her lupus (ie NSIP). Plan: # Chest pain/hypoxia/cough - EKG with ST-depression in lateral leads, cardiac enzymes x 3 sets negative - CT negative for PE but shows patchy bilateral airspace opacities are present more significant thanon prior study. Inflammatory process is not excluded. - Pt has h/o hemopericardium, echo on 11/07/15 w/o pericardial effusion - Telemetry - Check ESR, C3,C4, CRP, dsDNA, quantitative immunoglobulins, quantiferon, hep panel, TPMT enzyme - Continue ibuprofen PRN for chest pain - Prednisone 80 mg daily (per pulm/rheum recommendations) - Loratidine 10 mg daily - Duonebs Q4H prn for possible symptom relief - Mometasone 220 mcg BID - Supplemental O2 PRN - Appreciate rheumatology and pulmonary consults # Lupus - ASA 81 mg daily - Hydroxychloroquine 400 mg daily - Simvastatin 20 mg qPM - Prednisone 80 mg daily # Hypothyrodism - Levothyroxine 125 mcg qhs # HTN - HCTZ 25 mg daily # Routine IV access: PIV Tubes/Drains: None DVT PPX: SCDs, ambulation, heparin SQ BID (has h/o hemopericardium in 01/2015 but this was in settingof INR 9.2) Anticipated Disposition: Home Code status: Full Code -- patient would NOT want to be on life support for more than a few days if she was not improving. Team Pager(MD Coverage 06/03): # [phone] PCP: KUNAL NESBITT MD [phone] Attestation: IPI Certification I certify that I am a D-H credentialed attending provider with admitting privileges and that the patient meets or has met medical necessity to require an inpatient IPI level of care meeting a minimum of two midnights or is on the [facility] inpatient only procedure list (status C) due to: hypoxia. SYLVIA BRANTLEY MD 11/08/2015 Natalya Becerra RN - 11/08/2015 5:58 AM EDT Patient Name:Francie Gonzales Yusuf 2/3 [facility] Telemetry Note Diagnosis r/t telemetry: Chest pain Subjective: My lower leg is hurting. Objective: Apical pulse regular, BPs stable Last value Range last 12 hrs Temperature Temp: 36.6 ??C (97.9 ??F) Temp: [36.5 ??C (97.7 ??F)-36.6 ??C (97.9 ??F)] Heart Rate Heart Rate: 57 Heart Rate: [57-64] Blood Pressure BP: 134/62 mmHg BP: (132-148)/(62-70) Respiratory Rate Resp: 20 Resp: [20] SpO2 SpO2: 97 % SpO2: [96 %-97 %] Cardiac meds: see MAR Assessment: SR/SB, HR 50-75, No events, ME 0.17, QRS 0.11, RR 0.91, QT 0.43, QTC 0.45 Plan: Continue tele monitoring, assess hemodynamic tolerance of dysrythmia, see tele strip in patient medical record. Kristen Gonzalez RN - 11/07/2015 5:29 PM EDT Cardiac/Telemetry Nursing Progress Note [id number] Subjective: I do have some chest pain. Objective: Vital Signs: See Vital signs below Cardiac Meds: See online MAR Labs: See labs in online chart. Assessment: HR 57-82; Alarms 100/50; No events; ME 0.16, QRS 0.07, RR 0.98, QT 0.41, QTc 0.41 Plan: Continue telemetry monitoring. Notify MD of any changes. See Attached Tele Strip. (in green paper chart). Last value Range last 12 hrs Temperature Temp: 36.6 ??C (97.9 ??F) Temp: [36.4 ??C (97.5 ??F)-36.6 ??C (97.9 ??F)] Heart Rate Heart Rate: 63 Heart Rate: [63-68] Blood Pressure BP: 126/69 mmHg BP: (121-127)/(59-69) Respiratory Rate Resp: 18 Resp: [18] SpO2 SpO2: 99 % SpO2: [95 %-99 %] Mary Caraballo MD - 11/07/2015 12:16 PM EDT [facility] Pulmonary consult follow up: Active problems: -suspected lupus related ILD Past 24 hour event: I personally saw the patient No major changes over night. Unchanged breathing status. Medications: Scheduled Meds: ??? [START ON 11/08/2015] predniSONE 80 mg Oral Daily ??? aspirin 81 mg Oral Daily ??? loratadine 10 mg Oral Daily ??? hydroxychloroquine 400 mg Oral Daily ??? levothyroxine 125 mcg Oral Nightly ??? simvastatin 20 mg Oral QPM ??? sodium chloride 0.9 % 5 mL Intravenous BID ??? senna-docusate 2 tablet Oral BID ??? mometasone 220 mcg Inhalation BID Continuous Infusions: PRN Meds:.acetaminophen, ibuprofen, sodium chloride 0.9 %, lidocaine, ondansetron OR ondansetron, zolpidem Physical Exam: Last value Range last 48 hrs Temperature Temp: 36.4 ??C (97.5 ??F) Temp: [36.4 ??C (97.5 ??F)-37.5 ??C (99.5 ??F)] Heart Rate Heart Rate: 65 Heart Rate: [64-79] Blood Pressure BP: 127/66 mmHg BP: (118-152)/(56-74) Respiratory Rate Resp: 18 Resp: [15-20] SpO2 SpO2: 98 % SpO2: [90 %-99 %] Gen: Average stature, AOx3, comfortable. HEENT: No palor. Nodes: Nostridor, supple Chest: scattered rhonchi. Basal fine crackles on left. Cor: RRR, S1S2, No MRG. Abd: ND Extrem: no C/C Neuro: no focal deficits Diagnostic Studies: CT 11/05/2015 B/l patchy LL dominant primarily subpleural GGO. 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 The patient to start 80mg of prednisone today. I spent more than 50% of this 30 minute visit in direct counseling and/or floor time in coordinationof care, reviewing charts/records/labs/tests, or discussion with other health care providers. Sylvia Brantley MD - 11/07/2015 9:46 AM EDT Hospital Medicine Attending Daily Progress Note Admit Date: 11/05/2015 Hospital Day 2 days Active Hospital Problems Diagnosis ??? Chest pain ??? Hypoxia Resolved Hospital Problems Diagnosis Date Resolved No resolved problems to display. PMH Active Non-Hospital Problems Diagnosis ??? Chronic rhinitis ??? S/P complete thyroidectomy ??? Amyloidosis cutis ??? Amyloidosis ??? Thyroid nodule ??? Lumbar disc herniation with radiculopathy ??? Asthma ??? Sinusitis, chronic ??? Edema of both legs ??? Miscarriage Inpatient Medications: Scheduled ??? aspirin 81 mg Oral Daily ??? loratadine 10 mg Oral Daily ??? hydroxychloroquine 400 mg Oral Daily ??? levothyroxine 125 mcg Oral Nightly ??? predniSONE 5 mg Oral Daily ??? simvastatin 20 mg Oral QPM ??? sodium chloride 0.9 % 5 mL Intravenous BID ??? senna-docusate 2 tablet Oral BID ??? mometasone 220 mcg Inhalation BID Continuous infusions: PRN: acetaminophen, ibuprofen, sodium chloride 0.9 %, lidocaine, ondansetron OR ondansetron, zolpidem Interval History: No acute events overnight Seen by rheumatology and pulmonary Subjective/ROS: Patient reports breathing about the same. Reports chest pain when taking deep breaths or coughing. Pain less severe than when she had pericarditis in January 2015. No nausea, vomiting, or abdominal pain. Having diarrhea. Physical Exam Vitals Range last 24 hrs Temperature Temp: [36.4 ??C (97.5 ??F)-36.8 ??C (98.2 ??F)] Heart Rate Heart Rate: [64-68] Blood Pressure BP: (118-133)/(58-68) Respiratory Rate Resp: [18-20] SpO2 SpO2: [95 %-99 %] Intake/Output Summary (Last 24 hours) at 11/07/15 0946 Last data filed at 11/07/15 0825 Gross per 24 hour Intake 1364 ml Output 0 ml Net 1364 ml Patient Vitals for the past 168 hrs: Weight 11/05/15 2324 90.901 kg (200 lb 6.4 oz) Body mass index is 34.38 kg/(m^2). Physical Exam General: Pleasant female laying in bed in [facility]. HEENT: MMM. Cardio/chest: (+)Mild tenderness on palpation of chest. Normal s1/s2. RRR. No m/r/g. Resp: Crackles at left lung base. Diffuse rhonchi. Abd: (+)BS. Soft. NT. ND. Ext: No BLE edema. Skin: Warm and dry. No rashes. Neuro: AAO x 3. Grossly intact. Studies reviewed in eDH. Remarkable for the following: LABS: Recent Labs 11/07/15 0654 11/06/15 0302 11/05/15 1600 WBC 3.6* 5.9 7.5 HGB 12.8 13.2 13.7 HCT 38.6 39.4 40.4 PLATELET 161 213 216 Recent Labs 11/05/15 1600 INR 0.9 Recent Labs 11/07/15 0654 11/06/15 0302 11/05/15 1600 NA 142 140 136 K 3.7 3.4* 3.1* CL 105 97* 95* CO2 26 27 25 BUN 17 15 18 CREATININE 0.64* 0.85 0.79 No results for input(s): AST, ALT, ALKPHOS, BILITOT, BILIDIR in the last 168 hours. Recent Labs 11/07/15 0654 11/06/15 0302 11/05/15 1600 CALCIUM 7.0* 7.4* 7.6* Recent Labs 11/06/15 0909 11/06/15 0302 11/05/15 1600 CK 91 101 145 TROPONINT <0.03 <0.03 <0.03 No results for input(s): HA1C in the last 7068 hours. FSBG Trend No results for input(s): POCGLU in the last 72 hours. MICRO: No results for input(s): URINECULTURE in the last 720 hours. No results for input(s): GRAMSTAIN, BFCX, LOWERRESPCX, TISSUECX in the last 720 hours. No results for input(s): BLOODCX in the last 720 hours. ECG: Recent Labs 11/05/15 1516 DIAGLINE Normal sinus rhythm Poor R wave progression Possible Left atrial enlargement Inferior infarct (cited on or before 22-JAN-2015) Nonspecific ST and T wave abnormality When compared with ECG of 01-MAY-2015 16:42, No significant change was found Confirmed by MD RUST ALAN ([id number]) on 11/06/2015 10:29:57 PM QTCCALC 473 VASCULAR: No results for input(s): VBTEXTRPT in the last 720 hours. IMAGING: CXR 11/05/15 IMPRESSION: ?? No acute cardiopulmonary process. CT CHEST 11/05/15 IMPRESSION: No acute pulmonary embolism identified. Patchy bilateral airspace opacities are present more significant than on prior study. Inflammatory process is not excluded. Multiple too small to further characterize hypodensities within the liver now numbering approximately 5.?? Statistically given their small size is likely representing a hepatic cysts. ?? OTHER Studies: Echo 11/07/15 SUMMARY: ?? 1. The left ventricular chamber size is normal. Left ventricular wall thickness is normal. There is normal global left ventricular systolic function. The quantitative left ventricular ejection fraction by biplane Fisher's method is 70%. There are no left ventricular segmental wall motion abnormalities. Doppler assessment is consistent with normal left sided filling pressure. ?? 2. Right ventricular chamber size, wall thickness, and systolic function are within normal limits. The estimated pulmonary artery systolic pressure is 23 mmHg. 3. There is no hemodynamically significant valvular disease. ?? 4. See remainder of report for additional findings.?? Prior study 04/2015 with no major changes. Pericardium: The pericardium appears normal and there is no evidence of a pericardial effusion. ?? Assessment: Francie Yusuf is a 55 yo female with a PMH significant for antiphospholipid syndrome (anticardiolipin IgG and IgM positive)/SLE (YELENA pos, hypocomplementemia, h/o hemopericarditis and inflammatory pericarditis), amyloidosis cutis, asthma, chronic sinusitis, and hypothyroidism who presents with increasing shortness of breath, chest pain, and fatigue. Of note, about 8-9 weeks ago she developed nasal congestion, sinus pressure, headaches, and fatigue. Given her h/o sinus infections, she was was given four courses of antibiotics (Augmentin, clarithromycin, Bactrim, levofloxacin) without improvement. CTnegative for PE but shows patchy bilateral airspace opacities. Appreciate rheumatology and pulmonaryconsults. Currently, there is concern that the patient has lung involvement of her lupus (ie NSIP). Plan: # Chest pain/hypoxia/cough - EKG with ST-depression in lateral leads, cardiac enzymes x 3 sets negative - CT negative for PE but shows patchy bilateral airspace opacities are present more significant thanon prior study. Inflammatory process is not excluded. - Pt has h/o pericardial effusion, echo on 11/07/15 w/o pericardial effusion - Telemetry - Check ESR, C3,C4, CRP, dsDNA, quantitative immunoglobulins, quantiferon, hep panel - Continue ibuprofen PRN for chest pain - Prednisone 80 mg daily (per pulm/rheum recommendations) - Loratidine 10 mg daily - Duonebs Q4H for possible symptom relief - Mometasone 220 mcg BID - Supplemental O2 PRN - Appreciate rheumatology and pulmonary consults # Lupus - ASA 81 mg daily - Hydroxychloroquine 400 mg daily - Simvastatin 20 mg qPM - Prednisone 80 mg daily # Diarrhea - Check C. diff # Hypothyrodism - Levothyroxine 125 mcg qhs # HTN - Hold HCTZ 25 mg daily as BP controlled # Routine IV access: PIV Tubes/Drains: None DVT PPX: SCDs, ambulation, hx of hemopericardial tamponade in past with warfarin, caution with anti-coag Anticipated Disposition: Home Code status: Full Code -- patient would NOT want to be on life support for more than a few days if she was not improving. Team Pager(MD Coverage 06/03): # [phone] PCP: KUNAL NESBITT MD [phone] Attestation: IPI Certification I certify that I am a D-H credentialed attending provider with admitting privileges and that the patient meets or has met medical necessity to require an inpatient IPI level of care meeting a minimum of two midnights or is on the CMS inpatient only procedure list (status C) due to: hypoxia. SYLVIA BRANTLEY MD 11/07/2015 Diana Barrett RN - 11/07/2015 6:16 AM EDT Cardiac/Telemetry Nursing Progress Note [id number] Subjective: I am having some chest pain, but this is normal for me. Objective: Vital Signs: See Vital signs below Cardiac Meds: See online MAR Labs: See labs in online chart. Assessment: SR/SB 55-90; HR 53<55 not sustained, ME 0.17 QRS 0.09 RR 0.95 QT 0.46 QTc 0.47 Plan: Continue telemetry monitoring. Notify MD of any changes. See Attached Tele Strip. (in green paper chart). Last value Range last 12 hrs Temperature Temp: (pt asleep) Temp: [36.5 ??C (97.7 ??F)] Heart Rate Heart Rate: 64 Heart Rate: [64-67] Blood Pressure BP: 133/66 mmHg BP: (118-133)/(58-66) Respiratory Rate Resp: 20 Resp: [18-20] SpO2 SpO2: 96 % SpO2: [96 %-99 %] Kirsten Gonzalez RN - 11/06/2015 5:31 PM EDT Cardiac/Telemetry Nursing Progress Note [id number] Subjective: The pain is only when I'm coughing. Objective: Vital Signs: See Vital signs below Cardiac Meds: See online MAR Labs: See labs in online chart. Assessment: HR 60-80, Alarms 100/50, No events, ME 0.18, QRS 0.09, RR 0.94, QT 0.39, QTc 0.40 Plan: Continue telemetry monitoring. Notify MD of any changes. See Attached Tele Strip. (in green paper chart). Last value Range last 12 hrs Temperature Temp: 36.8 ??C (98.2 ??F) Temp: [36.7 ??C (98.1 ??F)-36.8 ??C (98.2 ??F)] Heart Rate Heart Rate: 66 Heart Rate: [66-72] Blood Pressure BP: 131/68 mmHg BP: (128-137)/(56-68) Respiratory Rate Resp: 20 Resp: [18-20] SpO2 SpO2: 97 % SpO2: [96 %-98 %] Tory Lloyd MD - 11/06/2015 3:46 PM EDT Hospital Medicine Attending Daily Progress Note Admit Date: 11/05/2015 Hospital Day 1 day Active Hospital Problems Diagnosis ??? Chest pain ??? Hypoxia Resolved Hospital Problems Diagnosis Date Resolved No resolved problems to display. PMH Active Non-Hospital Problems Diagnosis ??? Chronic rhinitis ??? S/P complete thyroidectomy ??? Amyloidosis cutis ??? Amyloidosis ??? Thyroid nodule ??? Lumbar disc herniation with radiculopathy ??? Asthma ??? Sinusitis, chronic ??? Edema of both legs ??? Miscarriage Inpatient Medications: Scheduled ??? aspirin 81 mg Oral Daily ??? loratadine 10 mg Oral Daily ??? hydroxychloroquine 400 mg Oral Daily ??? levothyroxine 125 mcg Oral Nightly ??? predniSONE 5 mg Oral Daily ??? simvastatin 20 mg Oral QPM ??? sodium chloride 0.9 % 5 mL Intravenous BID ??? senna-docusate 2 tablet Oral BID ??? mometasone 220 mcg Inhalation BID Continuous infusions: ??? dextrose 5% and sodium chloride 0.9% with potassium chloride 20 mEq 100 mL/hr (11/06/15 0853) PRN: acetaminophen, ibuprofen, sodium chloride 0.9 %, lidocaine, ondansetron OR ondansetron, zolpidem Interval History: Pt seen and examined. She denied any worsening of her symptoms overnight. No new episode of chest pain. ROS: as above Physical Exam Vitals Range last 24 hrs Temperature Temp: [36.7 ??C (98.1 ??F)-37.3 ??C (99.1 ??F)] Heart Rate Heart Rate: [66-74] Blood Pressure BP: (128-150)/(56-71) Respiratory Rate Resp: [15-20] SpO2 SpO2: [90 %-99 %] Intake/Output Summary (Last 24 hours) at 11/06/15 1546 Last data filed at 11/06/15 0854 Gross per 24 hour Intake 910 ml Output 0 ml Net 910 ml Patient Vitals for the past 168 hrs: Weight 11/05/15 2324 90.901 kg (200 lb 6.4 oz) Body mass index is 34.38 kg/(m^2). Physical Exam Constitutional: She is oriented to person, place, and time. She appears well- nourished. No distress. HENT: ?? Head: Atraumatic. Eyes: EOM are normal. Neck: Neck supple. Cardiovascular: Normal rate.? No murmur heard. Pulmonary/Chest: Effort normal. No stridor. She has coarse breath sounds b/l in the lower lung zones. She exhibits no tenderness. Abdominal: She exhibits no distension. There is no tenderness. Musculoskeletal: She exhibits no edema. Neurological: She is alert and oriented to person, place, and time. Skin: Skin is warm. Psychiatric: She has a normal mood and affect. Studies reviewed in eDH. Remarkable for the following: LABS: Last 3 wbc, hgb, hct plt Recent Labs 11/06/15 0302 11/05/15 1600 07/06/15 1257 WBC 5.9 7.5 8.4 HGB 13.2 13.7 13.6 HCT 39.4 40.4 40.5 PLATELET 213 216 288 FSBG Trend No results for input(s): POCGLU in the last 72 hours. MICRO: No results for input(s): URINECULTURE in the last 720 hours. No results for input(s): GRAMSTAIN, BFCX, LOWERRESPCX, TISSUECX in the last 720 hours. No results for input(s): BLOODCX in the last 720 hours. ECG: Recent Labs 11/05/15 1516 DIAGLINE Normal sinus rhythm Possible Left atrial enlargement Inferior infarct (cited on or before 22-JAN-2015) Abnormal ECG When compared with ECG of 01-MAY-2015 16:42, No significant change was found QTCCALC 473 VASCULAR: No results for input(s): VBTEXTRPT in the last 720 hours. IMAGING: CT CHEST 11/04 No acute pulmonary embolism identified. Patchy bilateral airspace opacities are present more significant than on prior study. Inflammatory process is not excluded. Multiple too small to further characterize hypodensities within the liver now numbering approximately 5.?? Statistically given their small size is likely representing a hepatic cysts OTHER Studies: Assessment: Francie Yusuf is a 55 y.o. female w/ hypothyroidism, lupus (with chronic chest pain per rheum), amyloidosis, asthma, chronic sinusitis who presents now with ongoing SOB/hypoxia without a clear etiology. Plan: #chest pain - ACS ruled out , 3 sets of cardiac enzymes, EKG -negative -pt has h/p pericardial effusion, will get ECHO to r/o a recurrent/worsening effusion Continue home meds including ibuprofen for chest pain per outpatient rheum recs -Telemetry # hypoxia/ cough - possible development of new intestinal lung disease -Duonebs Q4H for possible symptom relief -Hold burst steroids, hold antibiotics -- would give anaerobic and atypical coverage if she became acutely unwell -pulmonary consulted for possible bronchoscopy, involve the rheumatology team if needed -keep SpO2 > 92% with O2 for hypoxia Discussed Advanced Directives and Code Status. The patient wishesto be Full Code -- patient would NOT want to be on life support for more than a few days if she was not improving. IV access: piv Tubes/Drains: DVT PPX: SCDs, holding anticoag in case of bronch +, also has hx of hemopericardial tamponade in past with warfarin, so beware anti-coag Anticipated Disposition :home Goals of Care: Team Pager(MD Coverage 06/03): # [phone] PCP: KUNAL NESBITT MD [phone] Attestation: IPI Certification I certify that I am a D-H credentialed attending provider with admitting privileges and that the patient meets or has met medical necessity to require an inpatient IPI level of care meeting a minimum of two midnights or is on the CMS inpatient only procedure list (status C) due to: hypoxia. Tory Lloyd MD 11/06/2015 Buffy Kerr RN - 11/06/2015 8:50 AM EDT Office of Care Management (OCM) / Industrial Engineering Professor(CM)/ Initial Assessment Discussed patient with Provider Team and in multidisciplinary discharge-planning rounds. Reviewed record and interviewed patient. Introduced/reviewed CM role and services accepted. REASON for HOSPITALIZATION: SOB, chest pain HPI ?? Francie Yusuf is a 55 y.o. female w/ hypothyroidism, lupus (with anti-phos Ab, on chronic prednisone, with chronic left sided chest pain), amyloidosis, asthma, chronic sinusutis who presents to the ED with ongoing SOB and sinus congestion. Her symptoms started 8-9 weeks ago with a usual URI, but then she worsened after a small period getting better with sinus congestion, shortness of breath. She has had antibiotics x 4 treatment courses with no improvement (azithromycin, clarithromycin, bactrim, levofloxacin). Finally, she presented to [facility] for SOB yesterday, and was given a nebulized therapy and discharged on prednisone 80mg PO QD. She doesn't feel that the prednisone has helped. PMH Past Medical History Diagnosis Date ??? Hypertension ??? Anti-phospholipid antibody syndrome ??? Eczema ??? Herniated disc ??? Anemia, iron deficiency ??? Asthma ??? Pneumonia X2 ??? Thyroid nodule ??? Amyloidosis cutis 2010 ??? Cardiac tamponade 01/24/2015 PREVIOUS FUNCTIONAL STATUS: independent CURRENT FUNCTIONAL STATUS:independent SOCIAL / FAMILY SUPPORTS:, lives with Corby Doshi in [place], [place]. Corby is available to help pt if the need arises. ADVANCE DIRECTIVES: none on file HEALTH /PRESCRIPTION COVERAGE:[place] Medicaid CURRENT HOME/COMMUNITY SERVICES/EQUIPMENT: DME:none Home Health Agency:none FISH DRIER REFERRAL: as needed PRIMARY CARE PHYSICIAN: KUNAL NESBITT MD [address],[facility] [id number] POTENTIAL DISCHARGE NEEDS: pt denies need for any home services at this time ANTICIPATED BARRIERS TO DISCHARGE:none indicated at this time TRANSPORTATION @ D/C:Corby PLAN: CM will continue to monitor progress, follow for continuity of care and assist with discharge planning while hospitalized CM Buffy CORREIA, RN, [facility] pager [phone] documented in this encounter H&P Notes Fabián Kwan MD - 11/05/2015 9:36 PM EDT Patient Name: Francie Yusuf Patient Age: 55 y.o. Birthdate: 1960 Admit date: 11/05/2015 Attending Physician: Diana Mcnamara MD Inpatient Hospital Medicine - Admission Note Problem List: There are no hospital problems to display for this patient. Active Non-Hospital Problems Diagnosis ??? Chronic rhinitis ??? S/P complete thyroidectomy ??? Amyloidosis cutis ??? Amyloidosis ??? Thyroid nodule ??? Lumbar disc herniation with radiculopathy ??? Asthma ??? Sinusitis, chronic ??? Edema of both legs ??? Miscarriage ID: 55 y.o. Female presents to [facility] with SOB and chest pain History of Present Illness: HPI Francie Yusuf is a 55 y.o. female w/ hypothyroidism, lupus (with anti-phos Ab, on chronic prednisone, with chronic left sided chest pain), amyloidosis, asthma, chronic sinusutis who presents to the ED with ongoing SOB and sinus congestion. Her symptoms started 8-9 weeks ago with a usual URI, but then she worsened after a small period getting better with sinus congestion, shortness of breath. She has had antibiotics x 4 treatment courses with no improvement (azithromycin, clarithromycin, bactrim, levofloxacin). Finally, she presented to [facility] for SOB yesterday, and was given a nebulized therapy and discharged on prednisone 80mg PO QD. She doesn't feel that the prednisone has helped. She has substernal chest pain that is worse with coughing and movement, is 3/10, and is unlike anything she has felt before. She has NOBLE, fatigue, and desaturates to the low 90s on RA with minimal walking about the room while I am talking to her. In the ED, EKG is done showing possible ST depressions laterally and the ED staff would like her observed overnight for cardiac rule-out. However, CT PE is also done showing no PE but showing patchy airspace disease. Review of Systems: Review of Systems Negative apart from what is mentioned above Past Medical and Surgical History: Past Medical History Diagnosis Date ??? Hypertension ??? Anti-phospholipid antibody syndrome ??? Eczema ??? Herniated disc ??? Anemia, iron deficiency ??? Asthma ??? Pneumonia X2 ??? Thyroid nodule ??? Amyloidosis cutis 2010 ??? Cardiac tamponade 01/24/2015 Past Surgical History Procedure Laterality Date ??? Bone marrow biopsy ??? Hysterectomy ??? Pro thyroidectomy 06/01/2012 THYROIDECTOMY, TOTAL OR COMPLETE performed by LINDA RANGEL at [facility] ??? Prg somatosensory test, any/all per. nerves, trunk or head 06/01/2012 FACIAL NERVE MONITORING, SETUP performed by LINDA RANGEL at [facility] ??? Pro bone marrow aspiration w/bx through same incision/site Right 06/09/2015 [place] BONE MARROW ASP PERFORMED W/BX THRU BX INCISION performed by Farzaneh Valera MD at [facility] ??? Pro bone marrow bx, needle/trocar Right 06/09/2015 ([facility] BONE MARROW,BIOPSY performed by Farzaneh Valera MD at [facility] Prior To Admission Medications: (Not in a hospital admission) Allergies: No Known Allergies Family History: Family History Problem Relation Age of Onset ??? Hypertension Mother ??? Hypertension Brother ??? Rheumatoid Arthritis Father ??? Rheumatoid Arthritis Brother Social History and Habits: History Social History ??? Marital Status: Spouse Name: N/A Number of Children: N/A ??? Years of Education: N/A Occupational History ??? unemployed Social History Main Topics ??? Smoking status: Former Smoker -- 1.50 packs/day Types: Cigarettes Quit date: 08/14/1992 ??? Smokeless tobacco: Never Used ??? Alcohol Use: 0.6 oz/week 1 Glasses of wine per week Comment: per week ??? Drug Use: No ??? Sexual Activity: Partners: Male Other Topics Concern ??? Not on file Social History Narrative Immunizations: Immunization History Administered Date(s) Administered ??? Influenza Vaccine w/Preservative, Split 05/13/2013, 05/14/2014, 04/07/2015 Physical Exam: Last Set of Vitals and range of vitals over past 24 hours: Last value Range last 24 hrs Temperature Temp: 37.5 ??C (99.5 ??F) Temp: [37.5 ??C (99.5 ??F)] Heart Rate Heart Rate: 72 Heart Rate: [66-79] Blood Pressure BP: 133/69 mmHg BP: (133-152)/(63-74) Respiratory Rate Resp: 19 Resp: [19] SpO2 SpO2: 93 % SpO2: [90 %-94 %] There is no weight on file to calculate BMI. Physical Exam Constitutional: She is oriented to person, place, and time. She appears well- nourished. No distress. HENT: Head: Atraumatic. Eyes: EOM are normal. Neck: Neck supple. Cardiovascular: Normal rate. No murmur heard. Pulmonary/Chest: Effort normal. No stridor. She has wheezes (Very faint). She has rales (Scattered, more in bases). She exhibits no tenderness. Abdominal: She exhibits no distension. There is no tenderness. Musculoskeletal: She exhibits no edema. Neurological: She is alert and oriented to person, place, and time. Skin: Skin is warm. Psychiatric: She has a normal mood and affect. Laboratory (Last 24 Hours): Recent Results (from the past 24 hour(s)) Basic Metabolic Panel (non-fasting) Result Value Ref Range Glucose Lvl 124 65 - 199 mg/dL BUN 18 8 - 18 mg/dL Creatinine 0.79 0.70 - 1.20 mg/dL Sodium 136 135 - 145 mmol/L Potassium 3.1 (L) 3.5 - 5.0 mmol/L Chloride 95 (L) 98 - 107 mmol/L CO2 25 22 - 31 mmol/L Anion Gap 16 (H) 5 - 15 mmol/L Calcium 7.6 (L) 8.5 - 10.5 mg/dL Estimated GFR >60 >=60 Prothrombin Time Result Value Ref Range PT 12.6 12.0 - 15.0 sec INR 0.9 0.9 - 1.1 APTT Result Value Ref Range PTT 26 25 - 35 sec Cardiac Enzymes Result Value Ref Range Troponin-T <0.03 <=0.03 ng/mL CK, Total 145 0 - 160 unit/L Hemogram Result Value Ref Range WBC 7.5 4.0 - 10.0 x10(3)/mcL RBC 5.06 3.93 - 5.22 x10(6)/mcL Hemoglobin 13.7 11.2 - 15.7 gm/dL Hematocrit 40.4 34.0 - 45.0 % MCV 79.8 79.0 - 94.0 fL MCH 27.1 26.6 - 32.2 pg MCHC 33.9 32.0 - 36.5 gm/dL Platelets 216 145 - 370 x10(3)/mcL RDWSD 40.8 35.0 - 46.0 fL RDWCV 14.1 10.9 - 14.4 % MPV 10.0 9.0 - 12.0 fL Differential, Automated Result Value Ref Range Neutrophils % 92.4 % Neutr Abs (ANC) 6.92 (H) 1.50 - 6.30 x10(3)/mcL Lymphocytes % 3.2 % Lymphocytes Abs 0.2 (L) 1.0 - 3.6 x10(3)/mcL Monocytes % 4.3 % Monocyte Abs 0.3 0.2 - 1.0 x10(3)/mcL Eosinophils % 0.0 % Eosinophils Abs 0.0 0.0 - 0.5 x10(3)/mcL Basophils % 0.0 % Basophils Abs 0.0 0.0 - 0.2 x10(3)/mcL Immature Gran % 0.10 % Cheryl Gran Abs 0.01 0.00 - 0.05 x10(3)/mcL Gold Tube HOLD Result Value Ref Range Gold Hold Sample in lab. Rapid Respiratory Virus Antigen Panel Nasopharyngeal Swab Result Value Ref Range Rapid Virus Antigen Stain DFA Negative for Adenovirus Antigen DFA Negative for Human Metapneumovirus Antigen DFA Negative for Influenza Virus Type A Antigen DFA Negative for Influenza Virus Type B Antigen DFA Negative for Parainfluenza Virus Type 1 Antigen DFA Negative for Parainfluenza Virus Type 2 Antigen DFA Negative for Parainfluenza Virus Type 3 Antigen DFA Negative for Respiratory Syncytial Virus Antigen Microbiology: None Radiology: 11/05/15 -- CT PE protocol No acute pulmonary embolism identified. Patchy bilateral airspace opacities are present more significant than on prior study. Inflammatory process is not excluded. Multiple too small to further characterize hypodensities within the liver now numbering approximately 5.?? Statistically given their small size is likely representing a hepatic cysts. 11/05/15 -- CXR No acute cardiopulmonary process. Other Studies: 11/05/15 -- EKG Sinus rhythm, lateral ST depressions, slightly more pronounced than on prior EKGs Assessment: Francie Yusuf is a 55 y.o. female w/ hypothyroidism, lupus (with chronic chest pain per rheum), amyloidosis, asthma, chronic sinusutis who presents now with ongoing SOB without a clear etiology. Firstly, if she had chronic sinusitis, I'm not sure why it has not improved with antibiotics. I think more likely is that she either has an occult pneumonia that is partially treated (and not very evident due to her immunosuppression), OR she has an autoimmune process such as lupus pulmonary involvement which has yet to be diagnosed. Either way, she is hypoxic and so should be admitted. Otherwise I will hold off on giving her further burst steroids, and instead just monitor overnight with the possibility of rheum/pulm consultation in the AM to look at the CT and discuss whether bronch vs ongoing empiric steroid is indicated. Notably Dr. Lowe is her control systems designer here and knows her well. As for this chest pain, it seems non-cardiac despite the minimal changes on EKG. Will rule-out and monitor on telemetry. Plan: ?? Admit to hospital medicine ?? Duonebs Q4H for possible symptom relief ?? Hold burst steroids, hold antibiotics -- would give anaerobic and atypical coverage if she becameacutely unwell ?? Consider pulm consult in AM for bronch, rheum consult in AM for ?lupus lung process ?? O2 for hypoxia -- patient desats to low 90s on minimal movement ?? Telemetry ?? Repeat EKG tomorrow AM and look at lateral leads ?? Cardiac enzymes x 3 for rule out. ?? Continue home meds including ibuprofen for chest pain per outpatient rheum recs ?? Physical Therapy referral ?? DVT Prophylaxis -- SCDs, holding anticoag in case of bronch + procedure in AM, also has hx of hemopericardial tamponade in past with warfarin, so beware anti-coag ?? If currently a smoker - advised about smoking cessation and will provide smoking cessation material and support. ?? Pneumovax and Influenza Immunizations given as needed. ?? Discussed Advanced Directives and Code Status. The patient wishesto be Full Code -- patient wouldNOT want to be on life support for more than a few days if she was not improving. A copy of this document will be sent to the patient's Primary Care Physician and/or Referring Physician. IPI Certification I certify that I am a D-H credentialed attending provider with admitting privileges and that the patient meets or has met medical necessity to require an inpatient IPI level of care meeting a minimum of two midnights or is on the [facility] inpatient only procedure list (status C) due to: acute respiratory compromise and/or hypoxia requiring assessment every 4 hours and the ability to respond immediately tothe patient's need FABIÁN KWAN MD 11/05/2015 documented in this encounter Procedure Notes Ke Huang MD - 11/12/2015 12:26 PM EDTAssociated Order(s): PULMONARY FUNCTION TEST FVC,FEV1 are low. FEV1/FVC within normal limits. Diffusing capacity low. IMPRESSION: Restrictive lung disease. documented in this encounter ED Notes Savanna Valentin RN - 11/05/2015 10:13 PM EDT Medicine team speaking with patient Savanna Valentin RN - 11/05/2015 9:[address] Ulrich speaking with patient and Savanna Valentin RN - 11/05/2015 7:47 PM EDT Patient resting on stretcher with at bedside. Patient inquiring when CT scan will be performed. Will call CT scan to find a time frame for patient. Vitals as noted. Will continue to monitor. Mckinley Ulrich MD - 11/05/2015 3:24 PM EDT Francie Yusuf a 55 y.o.female was seen with a CC of: Chief Complaint Patient presents with ??? Shortness of Breath I saw this patient at ~ 3:24 PM. HPI: Francie Yusuf is a 55 y.o. female with previous h/o antiphospholipid syndrome, obese, asthma, cardiac now presenting with shortness of breath, cough and wheezing. The patient reports over the pastmonth she has had shortness of breath, she reports this initially started with sinus pain, she has been on 4 rounds of antibiotics through her primary care physician has had no improvement. Throughout this time she reports that she has had shortness of breath but has had no chest pain or chest discomfort. She does report that the shortness of breath is somewhat worse when lying down and also when exerting herself. She is chronically on steroids for her lupus, just yesterday she went to an outside ED and was evaluated, she reports that she had a negative evaluation there but they recommended increasing her baseline steroids to 80 mg daily. Several last 2 weeks she has had a nonproductive cough, this is been associated with chest discomfort substernally without any radiation to her arms, shoulder, jaw or back. Denies any pleuritic nature to the chest pain. She denies any fevers or chills. Patient Vitals for the past 8 hrs: BP Temp Temp src Pulse Resp SpO2 11/05/15 1512 152/74 mmHg 37.5 ??C (99.5 ??F) Oral 79 19 94 % I have reviewed the vital signs which are notable for: Low end saturations Review of Systems Constitutional: Negative for fever, chills and activity change. HENT: Negative for congestion and sore throat. Eyes: Negative for visual disturbance. Respiratory: Positive for cough and shortness of breath. Negative for chest tightness and wheezing. Cardiovascular: Positive for chest pain. Negative for palpitations and leg swelling. Gastrointestinal: Negative for nausea, vomiting, abdominal pain, diarrhea, constipation, blood in stool and abdominal distention. Genitourinary: Negative for dysuria, hematuria and difficulty urinating. Musculoskeletal: Negative for back pain, neck pain and neck stiffness. Skin: Negative for rash. Neurological: Negative for dizziness and headaches. Psychiatric/Behavioral: Negative for confusion. Physical Exam Constitutional: She is oriented to person, place, and time. She appears well- developed and well-nourished. No distress. HENT: Head: Normocephalic and atraumatic. Eyes: Pupils are equal, round, and reactive to light. Neck: Normal range of motion. Cardiovascular: Normal rate, regular rhythm and normal heart sounds. Exam reveals no gallop and no friction rub. No murmur heard. Pulmonary/Chest: Effort normal. No respiratory distress. She has wheezes. She has no rales. She exhibits no tenderness. Course breath sounds bilaterally, intermittent wheezes Abdominal: Soft. She exhibits no distension. There is no tenderness. There is no guarding. Musculoskeletal: Normal range of motion. She exhibits no edema. Neurological: She is alert and oriented to person, place, and time. Skin: Skin is warm and dry. She is not diaphoretic. Psychiatric: She has a normal mood and affect. Nursing note and vitals reviewed. ED Course: - Medications, allergies and past medical history reviewed - Patient interviewed and examined -Discussed with attending physciain -I have reviewed the labs which are notable for: Overall labs are reassuring, troponin negative, DFAnegative -I have reviewed the imaging which is notable for: CT showing no evidence of pulmonary embolism although there is an area of opacity suggestive of inflammatory process -I have reviewed the EKG which is notable for: ST depressions laterally MDM: Francie Yusuf is a 55 y.o. female presenting with one month of cough, wheezing, intermittent chest pain primarily with coughing and shortness of breath. She reports shortness of breath is primarily with exertion but also when lying down. It appeared that the patient could have a pneumonia or bronchitis, chest x-ray showed no evidence of pneumonia. Her initial labs were reassuring, troponin was negative, given her antiphospholipid disease and not really being on Coumadin we were concerned that she could have developed a pulmonary embolism, there was no evidence of this on CT. CT did show concern for possible inflammatory process. Of note on EKG she did have new ST depressions laterally, troponin was negative, despite this we do feel that the patient needs to have full cardiac rule out and provocative testing. We have discussed return precautions and the patient is in agreement with the plan.Given this we feel that the patient should be admitted, we discussed this with the internal medicineteam and they will admit to their service. Disposition: Admission Mckinley Ulrich MD PGY-3 Pager [phone] This note was created using [employer] voice recognition software. Mckinley Ulrich MD Resident 11/05/15 9650 Associated attestation - Diana Mcnamara MD - 11/08/2015 3:11 PM EDT ED ATTENDING ATTESTATION NOTE The patient was seen in conjunction with Dr. Ulrich, the resident physician. I have independently performed the torres portions of the history and physical exam. I have reviewed the nursing notes, vital signs, and all diagnostic studies personally including labs, imaging studies and EKGs. I have discussedthe details of the case with the resident and agree with the assessment and plan as described in theresident note above unless noted otherwise below. documented in this encounter Miscellaneous Notes Plan of Care - Ilir Haley RN - 11/09/2015 6:20 AM EDT Problem: General Plan of Care Goal: Plan of Care Review Outcome: Ongoing (Interventions Implemented as Appropriate) 11/09/15 0528 Plan of Care Review Plan of Care Outcome Status ongoing (interventions implemented as appropriate) Progress improving Coping/Psychosocial Response Interventions Plan of Care Reviewed with patient OUTCOME EVALUATION NOTE: OUTCOME SUMMARY: Pt A&O x4, VSS, able to utilize call light appropriately. Pt denied headache, nausea/vomiting, visual changes, and dizziness/lightheadedness; not diaphoretic. Skin pale, warm, and dry. Pt endorsed SOB during the night, however her VS and O2 sat were stable; 1L O2 via NC applied for comfort. Shortness of breath gradually dissipated over the span of a couple hours. Pt medicated w/ Tylenol and Ibuprofen overnight for chronic sciatic pain primarily in L calf. Pt endorsed mild chest tightness, however stated it is improving. No acute events overnight. Will continue to monitor, assess for and addresscomfort needs, ensure safety, and notify MD of any changes. PLAN MOVING FORWARD: - Pain management - Monitor respiratory status INDIVIDUALIZED FALL PREVENTION: Individual Risk Factors: Rivera Fall Risk medium of 35 for presence of invasive catheters and secondary dx. Reinforced education to call appropriately. Assistance: Independent in room. Supervision: Intermittent; pt able to call appropriately for assistance. Surveillance: Telemetry, purposeful rounding. Pt declines Masimo. Cardiac/Telemetry Nursing Progress Note - [id number] Subjective: See progress note above. Objective: See progress note above. Vital Signs: See vital signs below. Cardiac Meds: See online MAR. Labs: See labs in online results review. Assessment: SR/SB, HR 45-80. No events. Plan: Continue telemetry monitoring. Notify MD of any changes. See telemetry report in patient's paper chart. Last value Range last 12 hrs Temperature Temp: 36.3 ??C (97.3 ??F) Temp: [36.3 ??C (97.3 ??F)] Heart Rate Heart Rate: 52 Heart Rate: [52-61] Blood Pressure BP: 127/63 mmHg BP: (127-132)/(63-68) Respiratory Rate Resp: 18 Resp: [18] SpO2 SpO2: 99 % SpO2: [94 %-99 %] CPG OUTCOME EVALUATION: Goal: Individualization and Mutuality Outcome: Ongoing (Interventions Implemented as Appropriate) Goal: Fall Prevention-Safe Patient Handling Outcome: Ongoing (Interventions Implemented as Appropriate) Goal: Infection Control Outcome: Ongoing (Interventions Implemented as Appropriate) Goal: Discharge Needs Assessment Outcome: Ongoing (Interventions Implemented as Appropriate) Problem: Respiratory Insufficiency (Adult, Obstetrics) Goal: Acid/Base Balance Patient will demonstrate the desired outcomes. Outcome: Ongoing (Interventions Implemented as Appropriate) 11/09/15 05 Respiratory Insufficiency (Adult, Obstetrics) Acid/Base Balance making progress toward outcome Goal: Effective Ventilation Patient will demonstrate the desired outcomes. Outcome: Ongoing (Interventions Implemented as Appropriate) 11/09/15527 Respiratory Insufficiency (Adult, Obstetrics) Effective Ventilation making progress toward outcome Plan of Care - Shana Ortez RN - 11/08/2015 1:54 PM EDT Problem: General Plan of Care Goal: Plan of Care Review Outcome: Ongoing (Interventions Implemented as Appropriate) 11/08/15 1346 Plan of Care Review Plan of Care Outcome Status ongoing (interventions implemented as appropriate) Progress improving Coping/Psychosocial Response Interventions Plan of Care Reviewed with patient OUTCOME EVALUATION NOTE: OUTCOME SUMMARY: Pt reports slight improvement in chest discomfort today; 2/10. L calf pain well- controlled with acetaminophen and ibuprofen. Ambulation encouraged. Pt ambulated off of unit independently x 1. Reviewed with pt importance of walking at least 3 times per day out of the room if she declines heparin injections and SCDs. Pt verbalized understanding. PLAN MOVING FORWARD: Continue to monitor pain and pain management. Continue to encourage activity and ambulation, especially if pt continues to decline heparin injections and SCDs. INDIVIDUALIZED FALL PREVENTION: Assistance: Independent Supervision: Independent Surveillance: Regular rounding by staff; call lay in reach. CPG OUTCOME EVALUATION: Goal: Individualization and Mutuality Outcome: Ongoing (Interventions Implemented as Appropriate) 11/08/15 1346 Mutuality/Individual Preferences What questions do you have about your health or care? Pt's questions answered (after review with ) regarding heparin injections as r/t pt's history of hemopericardium. Goal: Fall Prevention-Safe Patient Handling Outcome: Ongoing (Interventions Implemented as Appropriate) 11/08/15 0935 11/08/15 1139 11/08/15 1346 Safety Interventions Safety Precautions/Fall Reduction -- nonskid shoes/slippers when out of bed;room near unit station -- Musculoskeletal Interventions Activity/Level of Assistance -- up ad darryl;up in barrios;up in room;ambulated;independently -- Positioning -- HOB up 30-45 degrees;supine;independent -- Muscle Strengthening -- -- activity/mobility promoted;personal routines for BADL/IADL promoted;sitting on edge of bed encouraged Activity and Safety Assistive Device -- -- None Rivera Fall Risk History of Falling 0 -- -- Secondary Diagnosis 15 -- -- Ambulatory Aids 0 -- -- Intravenous Therapy/Heparin/Saline Lock 20 -- -- Gait/Transferring 0 -- -- Mental Status 0 -- -- Score 35 -- -- OTHER Rivera Fall Risk Med -- -- Goal: Infection Control Outcome: Ongoing (Interventions Implemented as Appropriate) 11/08/15 11311/08/15 1346 Coping/Psychosocial Response Interventions Counseling -- problem solving facilitated Safety Interventions Isolation Precautions standard precautions maintained -- Infection Prevention -- hydration promoted;nutrition promoted;promote handwashing;bronchial hygiene promoted Goal: Discharge Needs Assessment Outcome: Ongoing (Interventions Implemented as Appropriate) Problem: Respiratory Insufficiency (Adult, Obstetrics) Goal: Acid/Base Balance Patient will demonstrate the desired outcomes. Outcome: Ongoing (Interventions Implemented as Appropriate) 11/08/15 1346 Respiratory Insufficiency (Adult, Obstetrics) Acid/Base Balance making progress toward outcome Goal: Effective Ventilation Patient will demonstrate the desired outcomes. Outcome: Ongoing (Interventions Implemented as Appropriate) 11/08/15 1346 Respiratory Insufficiency (Adult, Obstetrics) Effective Ventilation making progress toward outcome Plan of Care - Natalya Becerra RN - 11/08/2015 4:07 AM EDT Problem: General Plan of Care Goal: Plan of Care Review Outcome: Ongoing (Interventions Implemented as Appropriate) 11/08/15 0401 Plan of Care Review Plan of Care Outcome Status ongoing (interventions implemented as appropriate) Progress progress toward functional goals as expected Coping/Psychosocial Response Interventions Plan of Care Reviewed with patient OUTCOME EVALUATION NOTE: OUTCOME SUMMARY: Pt A+Ox4, calm and cooperative. She had c/o pain in her left calf, given PRN ibuprofen with little effect, requested PRN tylenol 30 mins after. Pt weaned down to 1 L NC, sats remain stable, she states she would like to leave O2 on while asleep for personal comfort. No major events overnight. PLAN MOVING FORWARD: Start prednisone and assess for symptom improvement, discharge once symptoms are better managed, wean oxygen, pain management, continue to monitor and notify MD of acute changes. INDIVIDUALIZED FALL PREVENTION: Assistance: Independent Supervision: Independent Surveillance: Masimo, Telemetry, Purposeful rounding CPG GOAL OUTCOME EVALUATION: Goal: Individualization and Mutuality Outcome: Ongoing (Interventions Implemented as Appropriate) Goal: Fall Prevention-Safe Patient Handling Outcome: Ongoing (Interventions Implemented as Appropriate) 11/07/15195711/07/15 2346 Rivera Fall Risk History of Falling 0 -- Secondary Diagnosis 15 -- Ambulatory Aids 0 -- Intravenous Therapy/Heparin/Saline Lock 20 -- Gait/Transferring 0 -- Mental Status 0 -- Score 35 -- Activity and Safety Assistive Device Oxygen -- OTHER Rivera Fall Risk Med -- Safety Interventions Safety Precautions/Fall Reduction -- elopement precautions initiated Musculoskeletal Interventions Activity/Level of Assistance up ad darryl;independently -- Positioning -- independent Goal: Infection Control Outcome: Ongoing (Interventions Implemented as Appropriate) 11/07/151957 Coping/Psychosocial Response Interventions Counseling calming techniques promoted;emotional support provided;personal strengths integrated;reassurance provided;relaxation techniques promoted;verbalization of feelings encouraged Safety Interventions Isolation Precautions standard precautions maintained Infection Prevention bronchial hygiene promoted;hydration promoted;nutrition promoted;promote handwashing;rest/sleep promoted Goal: Discharge Needs Assessment Outcome: Ongoing (Interventions Implemented as Appropriate) Problem: Respiratory Insufficiency (Adult, Obstetrics) Goal: Acid/Base Balance Patient will demonstrate the desired outcomes. Outcome: Ongoing (Interventions Implemented as Appropriate) 11/08/15 040 Respiratory Insufficiency (Adult, Obstetrics) Acid/Base Balance making progress toward outcome Goal: Effective Ventilation Patient will demonstrate the desired outcomes. Outcome: Ongoing (Interventions Implemented as Appropriate) 11/08/15400 Respiratory Insufficiency (Adult, Obstetrics) Effective Ventilation making progress toward outcome Consult Note - Osito Del Valle MD - 11/07/2015 8:53 PM EDT Rheumatology Inpatient Consult Note Reason for Consult: Francie Yusuf presents today at the request of the primary team for evaluation of SLE flare HPI: Francie Yusuf is a 55 y.o. female who presented to [facility] on 11/06/15 for shortness of breath. We have been asked to evaluate for lupus flare. Francie Yusuf is a 55yo F w/ a PMH significant for antiphospholipid syndrome (anticardiolipin IgG and IgM positive; ASA 81mg only)/SLE (YELENA pos, hypocomplementemia, h/o hemopericarditis and inflammatory pericarditis), amyloidosis cutis, asthma, and hypothyroidism who p/w ten days of increasing shortness of breath, chest pain, and fatigue.?? She notes that about eight weeks ago, she developed nasal congestion, sinus pressure, headaches, and fatigue.?? She has a h/o sinus infections and was given four courses of antibiotics (Augmentin, clarithromycin, Bactrim, levofloxacin) with no effect.?? About two weeks ago, her sinus congestion evolved into shortness of breath particularly with lying flat and exertion.?? Around that time she developed anterior-medial pleuritic chest pain as well.?? She presented to an OSH yesterday and was given 80mg prednisone without a clear diagnosis.?? She took one dose of prednisone yesterday morning but did not notice any improvement and presented to our ED.?? CXR, CT-PE, EKG, viral DFA, and CBC were unremarkable.?? Her O2 sats were low and dropped with minimal activity so she was admitted for w/u. Ms. Yusuf notes that she has mild asthma which seems to have been slowly getting worse over the past several months but that her current symptoms are an acute change.?? She otherwise has been well-controlled on 5mg prednisone since 04/2015. Rheumatology labs to date: YELENA 1:640 centromere pattern C3 83 (06/2015) C4 3 (06/2015) Anti-CCP neg RF 22 Anti-dsDNA neg ANITA pos Anti-SSa 1.1 IgG 628 (03/2015) IgA 62 (03/2015) IgM 150 (03/2015) Interval: - started on PO prednisone 80mg Subjective: - chest pain less - dyspnea and chest congestion unchanged Patient Active Problem List Diagnosis Date Noted ??? Chest pain 11/05/2015 ??? Hypoxia 11/05/2015 ??? Chronic rhinitis 09/09/2015 ??? Cardiac tamponade 01/24/2015 ??? Acute bloody pericarditis 01/24/2015 ??? Pleural effusion 01/24/2015 ??? S/P complete thyroidectomy 07/16/2012 ??? Amyloidosis cutis 01/18/2011 ??? Amyloidosis 01/17/2011 ??? Thyroid nodule 12/30/2010 ??? 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 Asthma 10/28/2010 ??? Sinusitis, chronic 10/28/2010 ??? Antiphospholipid antibody syndrome 10/28/2010 ??? Edema of both legs 10/28/2010 ??? Miscarriage 10/28/2010 Past Medical History Diagnosis Date ??? Hypertension ??? Anti-phospholipid antibody syndrome ??? Eczema ??? Herniated disc ??? Anemia, iron deficiency ??? Asthma ??? Pneumonia X2 ??? Thyroid nodule ??? Amyloidosis cutis 2010 ??? Cardiac tamponade 01/24/2015 ??? Asthma 10/28/2010 ??? Chronic rhinitis 09/09/2015 ??? 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 Sinusitis, chronic 10/28/2010 Past Surgical History Procedure Laterality Date ??? Bone marrow biopsy ??? Hysterectomy ??? Pro thyroidectomy 06/01/2012 THYROIDECTOMY, TOTAL OR COMPLETE performed by LINDA RANGEL at [facility] OR ??? Prg somatosensory test, any/all per. nerves, trunk or head 06/01/2012 FACIAL NERVE MONITORING, SETUP performed by LINDA RANGEL at [facility] OR ??? Pro bone marrow aspiration w/bx through same incision/site Right 06/09/2015 ([facility]) BONE MARROW ASP PERFORMED W/BX THRU BX INCISION performed by Farzaneh Valera MD at [facility] ??? Pro bone marrow bx, needle/trocar Right 06/09/2015 ([facility]) BONE MARROW,BIOPSY performed by Farzaneh Valera MD at [facility] History Substance Use Topics ??? Smoking status: Former Smoker -- 1.50 packs/day for 15 years Types: Cigarettes Quit date: 08/14/1992 ??? Smokeless tobacco: Never Used ??? Alcohol Use: 1.2 oz/week 1 Glasses of wine, 1 Cans of beer per week Comment: per week Family History Problem Relation Age of Onset ??? Hypertension Mother ??? Hypertension Brother ??? Rheumatoid Arthritis Father ??? Rheumatoid Arthritis Brother ??? Chronic Obstructive Pulmonary Disease Mother Relevant Medications: Patient's medications, allergies, past medical, surgical, social and family histories were reviewed and updated as appropriate. Physical Examination: BP 148/70 mmHg Pulse 64 Temp(Src) 36.5 ??C (97.7 ??F) (Oral) Resp 20 Ht 162.6 cm (5' 4) Wt 90.901 kg (200 lb 6.4 oz) BMI 34.38 kg/m2 SpO2 97% Gen: NAD, lying in bed comfortably, AAOx3 HEENT: no conjuntival injection, oral cavity dry, no ulcers Neck: supple, no LAD CV: distant heart sounds, RRR, nl S1/S2, no m/r/g Resp: no resp distress w/ 2L NC, diffuse wheeze b/l, anterior crackles Abd: soft, nontender, nondistended Skin: no rashes, chronic venous stasis skin changes calf, amyloid nodules b/l lower legs MSK: no joint tenderness, swelling, or erythema Laboratory Data: Last 3 wbc, hgb, hct plt Recent Labs 11/07/15 0654 11/06/15 0302 11/05/15 1600 WBC 3.6* 5.9 7.5 HGB 12.8 13.2 13.7 HCT 38.6 39.4 40.4 PLATELET 161 213 216 Last 3 Lytes Recent Labs 11/07/15 0654 11/06/15 0302 11/05/15 1600 NA 142 140 136 K 3.7 3.4* 3.1* CL 105 97* 95* CO2 26 27 25 BUN 17 15 18 CREATININE 0.64* 0.85 0.79 Last 3 LFTs Recent Labs 04/06/15 1108 03/10/15 1723 02/03/15 1553 AST 19 21 18 ALT 17 22 23 ALKPHOS 67 69 88 BILITOT 0.3 0.3 0.3 BILIDIR 0.1 0.1 0.1 Last CRP, SEDRATE Recent Labs 11/07/15 0654 CRP 63.0 SEDRATE 17 Studies: Chest CT:IMPRESSION: Patchy bilateral airspace opacities are present more significant than on prior study. Inflammatory process is not excluded. Assessment: Franice Yusuf is a 55 y.o. female who presents today with shortness of breath and pleuritic chest pain. As of today she is on higher dose prednisone 80mg. There does not seem to be an infectious process going on, and pulmonary agrees that this is likely lupus related lung disease. Once her symptoms are improved, we will start tapering her steroids, and will likley need to use another steroid sparing agent as an outpatient. This could include imuran, so TPMT enzyme levels would be helpful if drawn now. She is wheezing, and some of this may also represent poorly controlled asthma, so duonebs maybe helpful as well. We would check C3,C4, ESR, quantitative immunoglobulins (as they have been trending down, and she may be developing CVID) and dsDNA. In anticipation of possibly treating with DMARD outpatient we would check quantiferon and hep serologies. Plan: Medications: pred 80mg daily Labs: ESR, C3,C4, CRP, dsDNA, quantitative immunoglobulins, quantiferon, hep panel, TPMT enzyme level OSITO DEL VALLE MD 11/07/2015 Associated attestation - Chelsy Jones DO - 11/08/2015 3:00 PM EDT ATTENDING ADDENDUM The patient's history was reviewed, and I interviewed and examined the patient with Dr. Del Valle. I agree with his summary, findings, and plan. Pt is a 55 yof with SLE and APLAS admitted w dyspnea, decr o2 sats and changes on CT estrada concerning for NSIP. Pulm on board, rec 80 mg of prednisone. Will need to be vigilant for risk of VTE given APlAS and use of high dose corticosteroids, con't asa. Will dicuss w pulm pjp prophylaxis and consideration for bisphosphonate. Pls check vit D levels and ensure pt is taking calcium and vit d. tmpt levels in prep for steroid sparing agent -complement and ds DNA pending Plan of Care - Kirsten Gonzalez RN - 11/07/2015 2:22 PM EDT Problem: General Plan of Care Goal: Plan of Care Review Outcome: Ongoing (Interventions Implemented as Appropriate) 11/07/15 0724 Coping/Psychosocial Response Interventions Plan of Care Reviewed with patient OUTCOME EVALUATION NOTE: OUTCOME SUMMARY: Pt is A&Ox4, VSS, c/o 2/10 pain, given PRN ibuprofen with good effect. Pt on 2L NC, SpO2 96-98%.Pt placed on contact precautions to r/o c. Diff, sample sent to lab. Droplet precautions d/c'd. Pt started on 80mg prednisone daily, see MAR. Echo performed today, see results. PIV intact. Will continue to monitor and notify MD of any changes. PLAN MOVING FORWARD: -Monitor resp status -Monitor labs INDIVIDUALIZED FALL PREVENTION: Oxygen, SOB Assistance: Independent while ambulating in room Supervision: Independent with ADLs Surveillance: Hourly rounding, Room near unit station, Call lay in reach CPG OUTCOME EVALUATION: Goal: Individualization and Mutuality Outcome: Ongoing (Interventions Implemented as Appropriate) 11/06/15 0001 Mutuality/Individual Preferences What anxieties, fears or concerns do you have about your health or care? Patient upset about what isgoing on. What questions do you have about your health or care? No What information would help us give you more personalized care? None Goal: Fall Prevention-Safe Patient Handling Outcome: Ongoing (Interventions Implemented as Appropriate) 11/07/15 0724 11/07/15 1210 Rivera Fall Risk History of Falling 0 -- Secondary Diagnosis 15 -- Ambulatory Aids 0 -- Intravenous Therapy/Heparin/Saline Lock 20 -- Gait/Transferring 0 -- Mental Status 0 -- Score 35 -- Activity and Safety Assistive Device Oxygen -- OTHER Rivera Fall Risk Med -- Safety Interventions Safety Precautions/Fall Reduction -- environmental modification;fall reduction program maintained;lighting adjusted for task/safety;low bed;nonskid shoes/slippers when out of bed;room near unit station Musculoskeletal Interventions Activity/Level of Assistance up ad darryl;independently -- Positioning -- independent Goal: Infection Control Outcome: Ongoing (Interventions Implemented as Appropriate) 11/07/15 0711/07/15 1052 Safety Interventions Isolation Precautions -- contact precautions initiated;droplet precautions discontinued Infection Prevention bronchial hygiene promoted;environmental surveillance;hydration promoted;nutrition promoted;promote handwashing;rest/sleep promoted -- Coping/Psychosocial Response Interventions Counseling calming techniques promoted;emotional support provided;goal setting facilitated;relaxation techniques promoted -- Goal: Discharge Needs Assessment Outcome: Ongoing (Interventions Implemented as Appropriate) 11/06/15 0012 Living Environment Transportation Available car Problem: Respiratory Insufficiency (Adult, Obstetrics) Goal: Acid/Base Balance Patient will demonstrate the desired outcomes. Outcome: Ongoing (Interventions Implemented as Appropriate) 11/06/15 1421 Respiratory Insufficiency (Adult, Obstetrics) Acid/Base Balance making progress toward outcome Goal: Effective Ventilation Patient will demonstrate the desired outcomes. Outcome: Ongoing (Interventions Implemented as Appropriate) 11/06/15 1421 Respiratory Insufficiency (Adult, Obstetrics) Effective Ventilation making progress toward outcome Plan of Care - Diana Barrett RN - 11/07/2015 5:56 AM EDT Problem: General Plan of Care Goal: Plan of Care Review Outcome: Ongoing (Interventions Implemented as Appropriate) 11/06/152014 Coping/Psychosocial Response Interventions Plan of Care Reviewed with patient OUTCOME EVALUATION NOTE: OUTCOME SUMMARY: Pt A&Ox4, VSS. Pt c/o 3/10 substernal chest pain and left calf pain. Pt states CP is normal and frequently comes and goes. MD made aware of chest pain - no new orders obtained, rec to monitor tele. PRN ibuprofen given with positive effect. Maintaining sats on 2L NC. Independent in the room without issue. No acute events, will CTM and notify MD of any changes. PLAN MOVING FORWARD: Monitor resp status, bronchoscopy?, monitor labs INDIVIDUALIZED FALL PREVENTION: Assistance: Independent Supervision: Independent Surveillance: Carlee, fely lay within reach, purposeful rounding, room near nurses station CPG GOAL OUTCOME EVALUATION: Goal: Individualization and Mutuality Outcome: Ongoing (Interventions Implemented as Appropriate) 11/06/15 0001 Mutuality/Individual Preferences What anxieties, fears or concerns do you have about your health or care? Patient upset about what isgoing on. What questions do you have about your health or care? No What information would help us give you more personalized care? None Goal: Fall Prevention-Safe Patient Handling Outcome: Ongoing (Interventions Implemented as Appropriate) 11/06/15201411/07/15 0416 Rivera Fall Risk History of Falling 0 -- Secondary Diagnosis 15 -- Ambulatory Aids 0 -- Intravenous Therapy/Heparin/Saline Lock 20 -- Gait/Transferring 0 -- Mental Status 0 -- Score 35 -- Activity and Safety Assistive Device Oxygen -- OTHER Rivera Fall Risk Med -- Safety Interventions Safety Precautions/Fall Reduction -- lighting adjusted for task/safety Musculoskeletal Interventions Activity/Level of Assistance up ad darryl;up in room;independently -- Positioning -- independent Goal: Infection Control Outcome: Ongoing (Interventions Implemented as Appropriate) 11/06/152014 Safety Interventions Isolation Precautions droplet precautions maintained Infection Prevention bronchial hygiene promoted;environmental surveillance;hydration promoted;nutrition promoted;promote handwashing;rest/sleep promoted Coping/Psychosocial Response Interventions Counseling calming techniques promoted;emotional support provided;verbalization of feelings encouraged;personal strengths integrated;problem solving facilitated Goal: Discharge Needs Assessment Outcome: Ongoing (Interventions Implemented as Appropriate) 11/06/15 0012 Living Environment Transportation Available car Problem: Respiratory Insufficiency (Adult, Obstetrics) Goal: Acid/Base Balance Patient will demonstrate the desired outcomes. Outcome: Ongoing (Interventions Implemented as Appropriate) 11/06/15 1421 Respiratory Insufficiency (Adult, Obstetrics) Acid/Base Balance making progress toward outcome Goal: Effective Ventilation Patient will demonstrate the desired outcomes. Outcome: Ongoing (Interventions Implemented as Appropriate) 11/06/15 1421 Respiratory Insufficiency (Adult, Obstetrics) Effective Ventilation making progress toward outcome Consult Note - Osito Del Valle MD - 11/06/2015 8:51 PM EDT Rheumatology Inpatient Consult Note Reason for Consult: Francie Yusuf presents today at the request of the primary team for evaluation of SLE flare HPI: Francie Yusuf is a 55 y.o. female who presented to [facility] on 11/06/15 for shortness of breath. We have been asked to evaluate for lupus flare. Francie Yusuf is a 55yo F w/ a PMH significant for antiphospholipid syndrome (anticardiolipin IgG and IgM positive; ASA 81mg only)/SLE (YELENA pos, hypocomplementemia, h/o hemopericarditis and inflammatory pericarditis), amyloidosis cutis, asthma, and hypothyroidism who p/w ten days of increasing shortness of breath, chest pain, and fatigue.?? She notes that about eight weeks ago, she developed nasal congestion, sinus pressure, headaches, and fatigue.?? She has a h/o sinus infections and was given four courses of antibiotics (Augmentin, clarithromycin, Bactrim, levofloxacin) with no effect.?? About two weeks ago, her sinus congestion evolved into shortness of breath particularly with lying flat and exertion.?? Around that time she developed anterior-medial pleuritic chest pain as well.?? She presented to an OSH yesterday and was given 80mg prednisone without a clear diagnosis.?? She took one dose of prednisone yesterday morning but did not notice any improvement and presented to our ED.?? CXR, CT-PE, EKG, viral DFA, and CBC were unremarkable.?? Her O2 sats were low and dropped with minimal activity so she was admitted for w/u. Ms. Yusuf notes that she has mild asthma which seems to have been slowly getting worse over the past several months but that her current symptoms are an acute change.?? She otherwise has been well-controlled on 5mg prednisone since 04/2015. Rheumatology labs to date: YELENA 1:640 centromere pattern C3 83 (06/2015) C4 3 (06/2015) Anti-CCP neg RF 22 Anti-dsDNA neg ANITA pos Anti-SSa 1.1 IgG 628 (03/2015) IgA 62 (03/2015) IgM 150 (03/2015) Rheumatic history (x) means positive Iritis/uveitis Oral / Nasal Ulcers Dry mouth/eyes x Pleuritis/Pericarditis x PE/DVT/Spontaneous x IBD Photosensitivity rash Discoid rash Psoriasis Dactylitis Raynaud???s Inflammatory arthritis Anemia/leukopenia/thrombocytopenia ROS: Constitutional:?? no fevers, chills; positive fatigue Skin: no rashes, no Raynauds; positive amyloid nodules lower leg (chronic) HEENT: no sinus pain, epistaxis, HANSEN; positive dry eyes and dry mouth (chronic) Respiratory: no cough, hemoptysis; positive SOB, NOBLE, pleuritic chest pain CV: no claudication, palpitations GI: no abd pain, normal bowel movements : no dysuria, normal voiding Neuro: no focal deficit. Patient Active Problem List Diagnosis Date Noted ??? Chest pain 11/05/2015 ??? Hypoxia 11/05/2015 ??? Chronic rhinitis 09/09/2015 ??? Cardiac tamponade 01/24/2015 ??? Acute bloody pericarditis 01/24/2015 ??? Pleural effusion 01/24/2015 ??? S/P complete thyroidectomy 07/16/2012 ??? Amyloidosis cutis 01/18/2011 ??? Amyloidosis 01/17/2011 ??? Thyroid nodule 12/30/2010 ??? 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 Asthma 10/28/2010 ??? Sinusitis, chronic 10/28/2010 ??? Antiphospholipid antibody syndrome 10/28/2010 ??? Edema of both legs 10/28/2010 ??? Miscarriage 10/28/2010 Past Medical History Diagnosis Date ??? Hypertension ??? Anti-phospholipid antibody syndrome ??? Eczema ??? Herniated disc ??? Anemia, iron deficiency ??? Asthma ??? Pneumonia X2 ??? Thyroid nodule ??? Amyloidosis cutis 2010 ??? Cardiac tamponade 01/24/2015 ??? Asthma 10/28/2010 ??? Chronic rhinitis 09/09/2015 ??? 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 Sinusitis, chronic 10/28/2010 Past Surgical History Procedure Laterality Date ??? Bone marrow biopsy ??? Hysterectomy ??? Pro thyroidectomy 06/01/2012 THYROIDECTOMY, TOTAL OR COMPLETE performed by LINDA RANGEL at [facility] OR ??? Prg somatosensory test, any/all per. nerves, trunk or head 06/01/2012 FACIAL NERVE MONITORING, SETUP performed by LINDA RANGEL at [facility] OR ??? Pro bone marrow aspiration w/bx through same incision/site Right 06/09/2015 ([facility]) BONE MARROW ASP PERFORMED W/BX THRU BX INCISION performed by Farzaneh Valera MD at [facility] ??? Pro bone marrow bx, needle/trocar Right 06/09/2015 ([facility]) BONE MARROW,BIOPSY performed by Farzaneh Valera MD at [facility] History Substance Use Topics ??? Smoking status: Former Smoker -- 1.50 packs/day for 15 years Types: Cigarettes Quit date: 08/14/1992 ??? Smokeless tobacco: Never Used ??? Alcohol Use: 1.2 oz/week 1 Glasses of wine, 1 Cans of beer per week Comment: per week Family History Problem Relation Age of Onset ??? Hypertension Mother ??? Hypertension Brother ??? Rheumatoid Arthritis Father ??? Rheumatoid Arthritis Brother ??? Chronic Obstructive Pulmonary Disease Mother Relevant Medications: Patient's medications, allergies, past medical, surgical, social and family histories were reviewed and updated as appropriate. Physical Examination: BP 118/58 mmHg Pulse 67 Temp(Src) 36.6 ??C (97.9 ??F) (Oral) Resp 18 Ht 162.6 cm (5' 4) Wt 90.901 kg (200 lb 6.4 oz) BMI 34.38 kg/m2 SpO2 97% Gen: NAD, lying in bed comfortably, AAOx3 HEENT: no conjuntival injection, oral cavity dry, no ulcers Neck: supple, no LAD CV: distant heart sounds, RRR, nl S1/S2, no m/r/g Resp: no resp distress w/ 2L NC, diffuse wheeze b/l, anterior crackles Abd: soft, nontender, nondistended Skin: no rashes, chronic venous stasis skin changes calf, amyloid nodules b/l lower legs MSK: no joint tenderness, swelling, or erythema Laboratory Data: Last 3 wbc, hgb, hct plt Recent Labs 11/06/15 0302 11/05/15 1600 07/06/15 1257 WBC 5.9 7.5 8.4 HGB 13.2 13.7 13.6 HCT 39.4 40.4 40.5 PLATELET 213 216 288 Last 3 Lytes Recent Labs 11/06/15 0302 11/05/15 1600 05/03/15 0555 NA 140 136 143 K 3.4* 3.1* 3.7 CL 97* 95* 102 CO2 27 25 27 BUN 15 18 12 CREATININE 0.85 0.79 0.73 Last 3 LFTs Recent Labs 04/06/15 1108 03/10/15 1723 02/03/15 1553 AST 19 21 18 ALT 17 22 23 ALKPHOS 67 69 88 BILITOT 0.3 0.3 0.3 BILIDIR 0.1 0.1 0.1 Last CRP, SEDRATE Recent Labs 07/06/15 1257 02/03/15 1553 CRP -- -- 5.0 SEDRATE 9 < > 17 < > = values in this interval not displayed. Studies: Assessment: Francie Yusuf is a 55 y.o. female who presents today with shortness of breath and pleuritic chest pain. Given that she has received numerous courses of antibiotics, this seems less likely bacterial, and more likely related to her underlying connective tissue disease, possibly with pleurisy/pericarditis. She is wheezing, and some of this may also represent poorly controlled asthma. While we would continue steroids as the worry of infection is low, we would use lower doses as she has responded to 20mgin the past. We would check C3,C4, ESR, quantitative immunoglobulins (as they have been trending down, and she may be developing CVID) and dsDNA. In anticipation of possibly treating with DMARD outpatient we would check quantiferon and hep serologies. Plan: Medications: pred 20mg daily Labs: ESR, C3,C4, CRP, dsDNA, quantitative immunoglobulins, quantiferon, hep panel Procedures: bronch today Discussion and guidance: likely asthma vs lupus flare Please place consult order if you would like us to follow with you OSITO DEL VALLE MD 11/06/2015 Associated attestation - Chelsy Jones DO - 11/07/2015 6:13 PM EDT Pt is a 55 yof with a hx sle history. She Has known +YELENA, APLAS and hx of hemopericarditis and pericarditis who recently developed sinusitis treated w repeated courses of atb therapy without improvement. Over the last 10 days she has noted incr dysnea, chest pain and fatigue. O2 sats noted to be in the low 90s, auscultation reveals wheezing and rhonchi, CT scan shows findings c/w NSIP. Discussed with patient initiation of corticosteroids at a dose of 40mg, patient was very resistant to this dosingregimen and would agree to 20 mg dosing. Would also recommend the initiation of bronchodilator therapy/nebulizer therapy. Will plan to further discuss w her steroid sparing therapy. Med Student Consult - Taya Matos - 11/06/2015 3:59 PM EDT ?? Medical Student Rheumatology Inpatient Consult Note Reason for Consult:?? Francie Yusuf presents today at the request of the primary team for evaluation of lupus-related lung disease HPI: Francie Yusuf is a 55yo F w/ a PMH significant for antiphospholipid syndrome (anticardiolipin IgG and IgM positive; ASA 81mg only)/SLE (YELENA pos, hypocomplementemia, h/o hemopericarditis and inflammatory pericarditis), amyloidosis cutis, asthma, and hypothyroidism who p/w ten days of increasing shortness of breath, chest pain, and fatigue. She notes that about eight weeks ago, she developed nasal congestion, sinus pressure, headaches, and fatigue. She has a h/o sinus infections and was given four courses of antibiotics (Augmentin, clarithromycin, Bactrim, levofloxacin) with no effect. About two weeks ago, her sinus congestion evolved into shortness of breath particularly with lying flat and exertion. Around that time she developed anterior-medial pleuritic chest pain as well. She presented to an OSH and was given 80mg prednisone without a clear diagnosis. She took one dose of prednisone yesterday morning but did not notice any improvement and presented to our ED. CXR, CT-PE, EKG, viral DFA, and CBC were unremarkable. Her O2 sats were low and dropped with minimal activity so she was admitted for w/u. Ms. Yusuf notes that she has mild asthma which seems to have been slowly getting worse over the past several months but that her current symptoms are an acute change. She otherwise has been well-controlled on 5mg prednisone since 04/2015. Rheumatology labs to date: EYLENA 1:640 centromere pattern C3 83 (06/2015) C4 3 (06/2015) Anti-CCP neg RF 22 Anti-dsDNA neg ANITA pos Anti-SSa 1.1 IgG 628 (03/2015) IgA 62 (03/2015) IgM 150 (03/2015) ROS: Constitutional:?? no fevers, chills; positive fatigue Skin: no rashes, no Raynauds; positive amyloid nodules lower leg (chronic) HEENT: no sinus pain, epistaxis, HANSEN; positive dry eyes and dry mouth (chronic) Respiratory: no cough, hemoptysis; positive SOB, NOBLE, pleuritic chest pain CV: no claudication, palpitations GI: no abd pain, normal bowel movements : no dysuria, normal voiding Neuro: no focal deficit. Past Medical History Diagnosis Date ??? Hypertension ??? Anti-phospholipid antibody syndrome ??? Eczema ??? Herniated disc ??? Anemia, iron deficiency ??? Asthma ??? Pneumonia X2 ??? Thyroid nodule ??? Amyloidosis cutis 2010 ??? Cardiac tamponade 01/24/2015 ??? Asthma 10/28/2010 ??? Chronic rhinitis 09/09/2015 ??? 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 Sinusitis, chronic 10/28/2010 Past Surgical History Procedure Laterality Date ??? Bone marrow biopsy ??? Hysterectomy ??? Pro thyroidectomy 06/01/2012 THYROIDECTOMY, TOTAL OR COMPLETE performed by LINDA RANGEL at [facility] OR ??? Prg somatosensory test, any/all per. nerves, trunk or head 06/01/2012 FACIAL NERVE MONITORING, SETUP performed by LINDA RANGEL at [facility] OR ??? Pro bone marrow aspiration w/bx through same incision/site Right 06/09/2015 ([facility]) BONE MARROW ASP PERFORMED W/BX THRU BX INCISION performed by Farzaneh Valera MD at [facility] ??? Pro bone marrow bx, needle/trocar Right 06/09/2015 ([facility]) BONE MARROW,BIOPSY performed by Farzaneh Valera MD at [facility] History Substance Use Topics ??? Smoking status: Former Smoker -- 1.50 packs/day for 15 years Types: Cigarettes Quit date: 08/14/1992 ??? Smokeless tobacco: Never Used ??? Alcohol Use: 1.2 oz/week 1 Glasses of wine, 1 Cans of beer per week Comment: per week Family History: Mother with OA Sibling with RA Relevant Medications: 5mg prednisone QD 400mg hydroxychloroquine QD 81mg ASA Physical Examination: Filed Vitals: 11/06/15 1543 BP: 131/68 Pulse: 66 Temp: 36.8 ??C (98.2 ??F) Resp: 20 Gen: NAD, appears stated age, lying in bed with several pillows HEENT: no conjuntival injection, oral cavity dry Neck: supple, no LAD CV: distant heart sounds, RRR, nl S1/S2, no m/r/g Resp: no resp distress w/ 2L NC, diffuse wheeze b/l, anterior crackles Abd: soft, nontender, nondistended Skin: no rashes, chronic venous stasis skin changes calf, amyloid nodules b/l lower legs MSK: no joint tenderness, swelling, or erythema Laboratory Data:? Recent Results (from the past 24 hour(s)) Cardiac Enzymes Result Value Ref Range Troponin-T <0.03 <=0.03 ng/mL CK, Total 101 0 - 160 unit/L Basic Metabolic Panel (non-fasting) Result Value Ref Range Glucose Lvl 124 65 - 199 mg/dL BUN 15 8 - 18 mg/dL Creatinine 0.85 0.70 - 1.20 mg/dL Sodium 140 135 - 145 mmol/L Potassium 3.4 (L) 3.5 - 5.0 mmol/L Chloride 97 (L) 98 - 107 mmol/L CO2 27 22 - 31 mmol/L Anion Gap 16 (H) 5 - 15 mmol/L Calcium 7.4 (L) 8.5 - 10.5 mg/dL Estimated GFR >60 >=60 Hemogram Result Value Ref Range WBC 5.9 4.0 - 10.0 x10(3)/mcL RBC 4.83 3.93 - 5.22 x10(6)/mcL Hemoglobin 13.2 11.2 - 15.7 gm/dL Hematocrit 39.4 34.0 - 45.0 % MCV 81.6 79.0 - 94.0 fL MCH 27.3 26.6 - 32.2 pg MCHC 33.5 32.0 - 36.5 gm/dL Platelets 213 145 - 370 x10(3)/mcL RDWSD 43.2 35.0 - 46.0 fL RDWCV 14.4 10.9 - 14.4 % MPV 9.9 9.0 - 12.0 fL Differential, Automated Result Value Ref Range Neutrophils % 76.4 % Neutr Abs (ANC) 4.49 1.50 - 6.30 x10(3)/mcL Lymphocytes % 11.2 % Lymphocytes Abs 0.7 (L) 1.0 - 3.6 x10(3)/mcL Monocytes % 12.2 % Monocyte Abs 0.7 0.2 - 1.0 x10(3)/mcL Eosinophils % 0.0 % Eosinophils Abs 0.0 0.0 - 0.5 x10(3)/mcL Basophils % 0.0 % Basophils Abs 0.0 0.0 - 0.2 x10(3)/mcL Immature Gran % 0.20 % Cheryl Gran Abs 0.01 0.00 - 0.05 x10(3)/mcL Cardiac Enzymes Result Value Ref Range Troponin-T <0.03 <=0.03 ng/mL CK, Total 91 0 - 160 unit/L Studies: CT-PE protocol 11/04/14: 1. No acute pulmonary embolism identified. 2. Patchy bilateral airspace opacities are present more significant than on prior study. Inflammatory process is not excluded. 3. Multiple too small to further characterize hypodensities within the liver now numbering approximately 5.?? Statistically given their small size is likely representing a hepatic cysts. CXR 11/04/14: no acute cardiopulmonary process EKG 11/04/14: NSR, possible LAE, old inferior infarct Assessment: Francie Yusuf is a 55yo F w/ a PMH significant for antiphospholipid syndrome/SLE, amyloidosis cutis, asthma, and hypothyroidism who p/w ten days of increasing shortness of breath, chest pain, and fatigue. It is possible that her symptoms are 2/2 inflammatory interstitial lung disease, infection (likely viral or fungal), or exacerbation of reactive airways (ie asthma or COPD). Lupus most commonly causes NISP, alveolar hemorrhage, pneumonitis, or pleural disease. Given the absence of hemoptysis, and the subacute nature of her illness, NISP is most likely. However, despite a negative EKG,pericarditis cannot be completely ruled out at this time. In addition, Ms. Yusuf has known hypocomplementemia and down-trending immunoglobulins which suggests a CVID picture and makes infectious causes more likely. Before treating for a lupus-related interstitial process, it will be prudent to rule outinfection and RAD. In addition, we recommend some labs as stated below. Plan: Recommend bronchoscopy and BAL for culture to r/o infectious causes Recommend repeat ESR, CRP, complement, IgA, IgM, IgG, anti-dsDNA Recommend TB and hepatitis screen for potential immunomodulatory therapy May consider starting 20mg prednisone taper after r/o infection (has responded to 20mg w/ flares in the past) Rheumatology will continue to follow this patient. Taya Matos, MS4 11/06/2015 Pager# [phone] ? Associated attestation - Chelsy Jones DO - 11/07/2015 6:14 PM EDT Pt see and examined with the medical student and fellow. Pls see attestation of Dr Del Valle's note Plan of Care - Kirsten Gonzalez RN - 11/06/2015 2:34 PM EDT Problem: General Plan of Care Goal: Plan of Care Review Outcome: Ongoing (Interventions Implemented as Appropriate) 11/06/15 0725 Coping/Psychosocial Response Interventions Plan of Care Reviewed with patient OUTCOME EVALUATION NOTE: OUTCOME SUMMARY: Pt is A&Ox4, VSS, c/o 3/10 pain, given PRN acetaminophen with good effect. Pt on 2L NC, SpO2 96-98%. Continuous IV fluids changed to include potassium, K 3.4, see MAR. Wound care in to see pt this afternoon. Diet advanced to [facility]-diet from NPO, no procedure today. Will continue to monitor and notify MD of any changes. PLAN MOVING FORWARD: -Monitor resp status -Monitor labs INDIVIDUALIZED FALL PREVENTION: Oxygen, IV tubing, SOB Assistance: Independent while ambulating in room Supervision: Independent with ADLs Surveillance: Hourly rounding, Room near unit station, Call lay in reach CPG OUTCOME EVALUATION: Goal: Individualization and Mutuality Outcome: Ongoing (Interventions Implemented as Appropriate) 11/06/15 0001 Mutuality/Individual Preferences What anxieties, fears or concerns do you have about your health or care? Patient upset about what isgoing on. What questions do you have about your health or care? No What information would help us give you more personalized care? None Goal: Fall Prevention-Safe Patient Handling Outcome: Ongoing (Interventions Implemented as Appropriate) 11/06/15 0725 11/06/15 1318 Rivera Fall Risk History of Falling 0 -- Secondary Diagnosis 0 -- Ambulatory Aids 0 -- Intravenous Therapy/Heparin/Saline Lock 20 -- Gait/Transferring 10 -- Mental Status 0 -- Score 30 -- Activity and Safety Assistive Device Oxygen -- OTHER Rivera Fall Risk Med -- Safety Interventions Safety Precautions/Fall Reduction -- environmental modification Musculoskeletal Interventions Activity/Level of Assistance -- up ad darryl Positioning -- independent Goal: Infection Control Outcome: Ongoing (Interventions Implemented as Appropriate) 11/06/15 0725 11/06/15 1318 Safety Interventions Isolation Precautions -- droplet precautions maintained Infection Prevention environmental surveillance;hydration promoted;nutrition promoted;promote handwashing;rest/sleep promoted -- Coping/Psychosocial Response Interventions Counseling calming techniques promoted;emotional support provided;goal setting facilitated;relaxation techniques promoted -- Goal: Discharge Needs Assessment Outcome: Ongoing (Interventions Implemented as Appropriate) 11/06/15 0012 Living Environment Transportation Available car Problem: Respiratory Insufficiency (Adult, Obstetrics) Goal: Identify Signs and Symptoms and Related Risk Factors Signs and symptoms and related risk factors are identified upon initiation of Human Response Clinical Practice Guideline (CPG) Outcome: Outcome (s) achieved Date Met: 11/06/15 11/06/15 1421 Respiratory Insufficiency Related Risk Factors (Respiratory Insufficiency) activity intolerance;fear/anxiety Signs and Symptoms (Respiratory Insufficiency) cough (productive/ineffective) Goal: Acid/Base Balance Patient will demonstrate the desired outcomes. Outcome: Ongoing (Interventions Implemented as Appropriate) 11/06/15 1421 Respiratory Insufficiency (Adult, Obstetrics) Acid/Base Balance making progress toward outcome Goal: Effective Ventilation Patient will demonstrate the desired outcomes. Outcome: Ongoing (Interventions Implemented as Appropriate) 11/06/15 1421 Respiratory Insufficiency (Adult, Obstetrics) Effective Ventilation making progress toward outcome Consult Note - Jenny Al RN - 11/06/2015 2:17 PM EDT Certified Wound Care Nurse Note Situation: Asked to see Francie Yusuf by Vahid Young RN for scabbed area right ankle. Background: eD-H notes reviewed for history, admitting diagnosis and active problem list. Wound Assessment and Care Provided: The patient was seen this afternoon in room 337-A in bed. Permission received to assess legs. Patient reports areas are due to amyloidosis, they become papular and she states that she bumped the area against something and that is how the area occurred. There are hyperpigmented spots on both legs, there is a scab 1 cm x 0.8 cm on the right lateral leg. Cleansed withdermal wound cleanser and a Mepilex Border applied. Austin Score: 22 Last Pressure Ulcer Prevention assessment: Shift Pressure Ulcer Prevention Occiput: No Injury Thoracic Spine: No Injury Sacral: No Injury Ischial - left: No Injury Ischial - right: No Injury Heel - left: Existing Injury Heel - right: Existing Injury Elbow - left: No Injury Elbow - right: No Injury Device Sites: O2 sat monitor, oxygen tubing, IV sites Nutritional Status Wt Readings from Last 1 Encounters: 11/05/15 90.901 kg (200 lb 6.4 oz) Body mass index is 34.38 kg/(m^2). Labs Lab Results Component Value Date ALBUMIN 4.1 04/06/2015 ALBUMIN 4.4 03/10/2015 ALBUMIN 4.4 02/03/2015 WBC 5.9 11/06/2015 WBC 7.5 11/05/2015 WBC 8.4 07/06/2015 HGB 13.2 11/06/2015 HGB 13.7 11/05/2015 HGB 13.6 07/06/2015 HCT 39.4 11/06/2015 HCT 40.4 11/05/2015 HCT 40.5 07/06/2015 Nutritional Intake Nutrition Assessments Diet/Nutrition Prescription: NPO Nutrition Risk Screen (Admission and every 4 days/sig change): no indicators present Current bed: Versa Care Assessment: The patient is with diagnosed amyloidosis cutis to which there was trauma resulting in partial thickness skin loss that now has a scab. Mepilex Border applied to keep the area covered whilein the hospital and provide moist wound healing. Wound Care Recommendations: Mepilex Border dressing-change every 3 days and PRN to right lateral le. Cleanse wound with dermal wound cleanser. 2. Apply Mepilex Border dressing Refer to adult/pediatric pressure ulcer prevention job aid in the clinical policy library. Discussed plan with: RN: Kirsten Please contact JENNY AL RN on pager [phone] or the wound care team at [phone] or pager [phone] skin and wound care concerns or questions. Initial Assessments - Beatrice Garcia, PT - 11/06/2015 9:42 AM EDT Physical Therapy Evaluation Patient profile: Francie Yusuf is a 55 y.o. female admitted on 11/05/2015 by Tory Teran MD for URI for 8-9 weeks with chest pain. Pt transferred from an OSH. She has been on abx and prednisone with little relief of chest pain or shortness of breath. Possible ST depression in the ED. Cardiac enzymes have been negative. CT negative for PE. Suspected PNA vs pulmonary process from Lupus. NPOfor possible bronchoscopy. Rheumatology and pulmonary consulted. PT requested.. PMH: Past Medical History Diagnosis Date ??? Hypertension ??? Anti-phospholipid antibody syndrome ??? Eczema ??? Herniated disc ??? Anemia, iron deficiency ??? Asthma ??? Pneumonia X2 ??? Thyroid nodule ??? Amyloidosis cutis 2010 ??? Cardiac tamponade 01/24/2015 ??? Asthma 10/28/2010 ??? Chronic rhinitis 09/09/2015 ??? 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 Sinusitis, chronic 10/28/2010 Past Surgical History Procedure Laterality Date ??? Bone marrow biopsy ??? Hysterectomy ??? Pro thyroidectomy 06/01/2012 THYROIDECTOMY, TOTAL OR COMPLETE performed by LINDA RANGEL at [facility] OR ??? Prg somatosensory test, any/all per. nerves, trunk or head 06/01/2012 FACIAL NERVE MONITORING, SETUP performed by LINDA RANGEL at [facility] OR ??? Pro bone marrow aspiration w/bx through same incision/site Right 06/09/2015 ([facility]) BONE MARROW ASP PERFORMED W/BX THRU BX INCISION performed by Farzaneh Valera MD at [facility] ??? Pro bone marrow bx, needle/trocar Right 06/09/2015 ([facility]) BONE MARROW,BIOPSY performed by Farzaneh Valera MD at [facility] Social History: Patient lives with their partner in a 2 story home but she lives on the 1 [address] floor. She does not work. Boyfriend does work. . . Stairs: 2 with a rail to enter. Baseline Mobility: Despite illness pt has remained mobile, able to drive, walks without a device. Last few days had difficulty doing housework, due to SOB and CP. Went to her PT appointment to treat her Chronic left Sciatica. She grocery shops and walks in the community. Equipment at home: NE Precautions/Special Considerations: Left sciatica with chronic pain; orthostatic hypotension; droplet precautions; fall risk; NPO; supplemental O2; Amyloidosis with plaques LEs with risk to breakdown. Activity Orders: up with assist.. Staff communication/Mobility Recommendations: ?? Pt. to utilize no assistive device with one handhold and minimal assist for ambulation with nursing. ?? Please encourage up to chair for meal times as able. ?? Pt encouraged to ambulate frequently with staff, getting into the bathroom for toileting and walking out in the [place] >/= 3 times daily as able. ?? Use walker or a cane if sciatica pain. Subjective: ???I have had this sciatica since last January. The PTs fixed it once but it is not going away this time. I have been in PT 3-4 weeks. They massage my left buttock and use ice or heat. I do stretches too. I can not walk much now because I am too SOB. I got real dizzy when I got up to use the bathroom earlier.?? Objective: Pt seen for evaluation today. Pain: Left sciatic pain, radiates to left calf with sitting and standing. Vital Signs: Sp02: 98% on 3L HR: 70s BP: supine, 135/56, sitting 122/64 and standing 110/62. Mental Status: alert, oriented to person, place, and time Musculoskeletal: ROM: grossly wfls for transfers and standing. Strength: Moves all extremities well and equally in supine, taking good resistance distally. Sensation: Denied numbness or paresthesias Skin and Soft Tissue: LE purple areas, below knees, where amyloid plaques located. Right medial calfwith scab Bed Mobility: Supine to Sit: rolling left, slow, HOB 30, supervision Sit to Supine: same Transfers: Sit to Stand: supervision Stand to Sit: supervision Gait: Pt refused due to c/o SOB Balance: Sitting: fair with UE support due to buttock pain Standing: fair, with decreased wt bearing noted on LLE. Informed Consent: The patient understands and agrees to the PT treatment plan and goals. Education: patient have been educated on Bed mobility, Transfers, Exercise, Positioning, Role of therapy, Balance and Discharge planning and needs reinforcement. understanding. Encouraged pt to performher LE stretches she learned from outpt PT. Requested pt try sitting up in the chair later. Pt told t o not get up quick and position slowly from supine to and from stand. PT cut short by need for IV team to see pt and other consults in the waiting. Patient status, treatment, and mobility recommendations discussed with nursing. Requested that nursing order pt a heating pad for her back. Assessment: Francie Yusuf presents to PT with URI with progressive SOB and CP x 2 months. It is feltthat this is likely not cardiac but full w/u is pending. Could be related to a PNA and underlying asthma and lupus. Pt demonstrated some orthostatic BP changes, chronic left sciatica, lethargy, mild SOB but c/o NOBLE, and impaired mobility due to SOB and orthostasis. The pt would benefit from skilled therapy services to maximize functional independence while in the hospital and to address limitations as noted above. Will follow up early next week to assure independence for home. May need a cane for painful LLE during ambulation. Can continue outpt PT for sciatica treatment. Should mobilize with nursing, with FWW if necessary, over the weekend. OOB to chair should be encouraged. Goals: To be achieved by dc. 1. Pt. to demonstrate understanding of appropriate exercises. 2. Pt. to perform bed mobility with modified independence with HOB flat. 3. Pt. to perform sit to and from stand transfers with modified indepence and LRAD 4. Pt. to ambulate >150 feet with independent with increased time using a LRAD. 5. Pt. to ambulate up/down 2 step/stairs with supervision, using one railing and straight cane. 6. Family or caregiver to demonstrate understanding of therapeutic interventions to support the careof the patient. Plan: Pt to be seen 2-3 times per week for therapy including Bed mobility, Transfers, Assistive device/technique, Stairs, Exercise, Breathing exercises, Positioning, Safety , Precautions/protocol, Gait , Role of therapy, Balance and Discharge planning. Patient agrees with plan as stated above. Discharge Recommendations: Based on the current findings noted during this evaluation, patient could benefit from Outpatient Therapy Services when medically ready for hospital discharge. This recommendation is based on the patient's Current physical impairments, Prior functional status,Potential to return to prior level of function and Patient motivation and may change based on patient progress during this hospitalization. Consult Recommendations: Occupational Therapy consult energy conservation Equipment needs: TBD Total time spent with patient: 26 minutes EV Total timed interventions: 0 minutes BEATRICE GARCIA, PT 11/06/2015 Pager: [phone] Physical Therapy Rehabilitation Department Consult Note - Fracisco García T - 11/06/2015 8:24 AM EDT Pulmonology Consult Note Patient Name: Francie Yusuf Service: Pulmonology Consults Admit Date: 11/05/2015 Hospital Day: 1 Patient Description: Francie Yusuf is a 55 y.o. female with SLE (on chronic prednisone and hydroxychloroquine), antiphospholipid antibodies (now off warfarin after hemopericardium in January 2015), cutaneous AL amyloidosis, asthma, and chronic sinusitis who is admitted to [facility] for management of dyspnea and cough over the past 8-9 weeks. Active Pulmonary Problems: # Worsening dyspnea/cough over 8-9 weeks # Asthma Subjective: HPI: Francie Yusuf is a 55 y.o. female with SLE (on chronic prednisone and hydroxychloroquine), antiphospholipid antibodies (now off warfarin after hemopericardium in January 2015), cutaneous AL amyloidosis, asthma, and chronic sinusitis who is admitted to [facility] for management of dyspnea and cough over the past 8-9 weeks. The patient states that she first began developing symptoms of an upper respiratory infection (cough, headache, sinus congestion) approximately 9 weeks ago. This was not unusual for her as she has struggle with chronic sinusitis before. However, she then developed a dry cough, chest tightness, and dyspnea. Over the course of her illness she has now been treated with four different antibiotics (azithromycin, clarithromycin, bactrim, levofloxacin). Francie reports that none of these antibiotics have been helpful. On Monday (11/04/15), she presented to the [facility] ED and was treated with 3 different nebulizers and her prednisone dose was increased from 5mg daily to 80mg daily. Thepatient only took one dose of the 80mg prednisone, and she is unsure if it made any difference in her symptoms. Yesterday (11/05/15) Francie felt that her chest tightness, cough, and shortness of breath were worse, and she decided to come to [facility]. Francie reports that h er sinus congestion has improved since this all began about 9 weeks ago. However, she notes continued dyspnea and non-productive cough, which are not improving. The patient also describes intermittent chills, which she says began approximately 3 days ago. The patient denies fevers and hemoptysis. ROS: Review of Systems Constitutional: Positive for chills. Negative for fever. HENT: Negative for congestion, rhinorrhea and sore throat. Eyes: Negative for visual disturbance. Respiratory: Positive for chest tightness, shortness of breath and wheezing. Negative for cough. Cardiovascular: Negative for chest pain and leg swelling. Gastrointestinal: Negative for nausea, vomiting and abdominal pain. Endocrine: Negative for polyuria. Genitourinary: Positive for menstrual problem. Negative for dysuria and frequency. Musculoskeletal: Negative for myalgias and arthralgias. Skin: Negative for rash. Allergic/Immunologic: Negative for immunocompromised state. Neurological: Negative for headaches. Hematological: Does not bruise/bleed easily. Psychiatric/Behavioral: Negative for confusion. Medications Prior to Admission: Prescriptions prior to admission Medication Sig Dispense Refill Last Dose ??? levothyroxine (SYNTHROID) 125 mcg Tablet Take 125 mcg by mouth nightly. 11/05/2015 at Unknown time ??? hydroxychloroquine (PLAQUENIL) 200 mg Tablet Take 2 tablets by mouth daily. 60 tablet 6 11/05/2015 at Unknown time ??? fluticasone (FLOVENT) 220 mcg/actuation HFA Aerosol Inhaler Inhale 2 puffs into the lungs 2 times daily. 11/05/2015 at Unknown time ??? predniSONE (DELTASONE) 5 mg Tablet Take 5 mg by mouth daily. 11/05/2015 at Unknown time ??? ibuprofen (ADVIL;MOTRIN) 800 mg Tablet Take 1 tablet by mouth every 8 hours as needed for Pain. 30 tablet 12 11/05/2015 at Unknown time ??? hydrochlorothiazide (HYDRODIURIL) 25 mg Tablet daily. 0 11/05/2015 at Unknown time ??? cetirizine (ZYRTEC) 10 mg Tablet Take 10 mg by mouth daily. 11/05/2015 at Unknown time ??? aspirin 81 mg Tablet, Delayed Release (E.C.) Take 1 tablet by mouth daily. 11/05/2015 at Unknown time ??? simvastatin (ZOCOR) 20 mg tablet Take 20 mg by mouth nightly. 11/04/2015 at Unknown time ??? albuterol (PROVENTIL HFA;VENTOLIN HFA;PROAIR) 90 mcg/actuation HFA Aerosol Inhaler Inhale 2 puffs into the lungs every 4 hours as needed for Wheezing. Use with spacer Unknown at Unknown time ??? acetaminophen (TYLENOL EXTRA STRENGTH) 500 mg tablet Take by mouth as needed. Take 1-2 tabs of the (500mg) Tablets Unknown at Unknown time Allergies: No Known Allergies Past Medical History: Past Medical History Diagnosis Date ??? Hypertension ??? Anti-phospholipid antibody syndrome ??? Eczema ??? Herniated disc ??? Anemia, iron deficiency ??? Asthma ??? Pneumonia X2 ??? Thyroid nodule ??? Amyloidosis cutis 2010 ??? Cardiac tamponade 01/24/2015 ??? Asthma 10/28/2010 ??? Chronic rhinitis 09/09/2015 ??? 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 Sinusitis, chronic 10/28/2010 Past Surgical History Procedure Laterality Date ??? Bone marrow biopsy ??? Hysterectomy ??? Pro thyroidectomy 06/01/2012 THYROIDECTOMY, TOTAL OR COMPLETE performed by LINDA RANGEL at [facility] MA[facility] OR ??? Prg somatosensory test, any/all per. nerves, trunk or head 06/01/2012 FACIAL NERVE MONITORING, SETUP performed by LINDA RANGEL at [facility] MA[facility] OR ??? Pro bone marrow aspiration w/bx through same incision/site Right 06/09/2015 ([facility]) BONE MARROW ASP PERFORMED W/BX THRU BX INCISION performed by Farzaneh Valera MD at [facility] ??? Pro bone marrow bx, needle/trocar Right 06/09/2015 ([facility]) BONE MARROW,BIOPSY performed by Farzaneh Valera MD at [facility] Social History: History Social History ??? Marital Status: Spouse Name: N/A Number of Children: N/A ??? Years of Education: N/A Occupational History ??? unemployed Social History Main Topics ??? Smoking status: Former Smoker -- 1.50 packs/day for 15 years Types: Cigarettes Quit date: 08/14/1992 ??? Smokeless tobacco: Never Used ??? Alcohol Use: 1.2 oz/week 1 Glasses of wine, 1 Cans of beer per week Comment: per week ??? Drug Use: No ??? Sexual Activity: No Other Topics Concern ??? Not on file Social History Narrative Francie lives with a friend. She has a son and daughter. She has two cats and a dog. There is some mold in the house. 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 Family History: Family History Problem Relation Age of Onset ??? Hypertension Mother ??? Hypertension Brother ??? Rheumatoid Arthritis Father ??? Rheumatoid Arthritis Brother ??? Chronic Obstructive Pulmonary Disease Mother Objective: Vitals: T Temp: [36.9 ??C (98.4 ??F)-37.5 ??C (99.5 ??F)] HR Heart Rate: [66-79] BP BP: (133-152)/(56-74) RR Resp: [15-20] SpO2 SpO2: [90 %-99 %] IO Wt Last 90.901 kg (200 lb 6.4 oz) Admit 90.9 kg Physical Exam: GEN Pleasant woman, resting in bed, alert and oriented, in NAD HEENT Conjunctiva are anicteric and without injection, oropharynx clear, moist mucus membranes CV RRR, normal S1/S2, no murmurs/rubs/gallops appreciated, radial pulses easily palpable PULM Normal respiratory effort, breath sounds are coarse throughout on exhalation, there are scattered soft expiratory wheezes GI Abdomen obese, soft, non-tender, non-distended, + bowel sounds, no guarding, no rebound MSK No peripheral edema appreciated. DERM There are hyperpigmented lesions (some nodular in appearance) over the bilateral shins. NEURO General/Mental Status: Alert and oriented Cranial Nerves: EOMI Labs: CBC: Recent Labs 11/06/15 0302 11/05/15 1600 WBC 5.9 7.5 HGB 13.2 13.7 PLATELET 213 216 BMP: Recent Labs 11/06/15 0302 11/05/15 1600 05/03/15 0555 NA 140 136 143 K 3.4* 3.1* 3.7 CL 97* 95* 102 CO2 27 25 27 BUN 15 18 12 CREATININE 0.85 0.79 0.73 GLUCOSE 124 124 100 Calcium, Magnesium, Phosphate: Recent Labs 11/06/15 0302 11/05/15 1600 CALCIUM 7.4* 7.6* Troponin: Recent Labs 11/06/15 0909 11/06/15 0302 11/05/15 1600 TROPONINT <0.03 <0.03 <0.03 CK 91 101 145 Coags: Recent Labs 11/05/15 1600 05/01/15 1640 01/28/15 0342 PT 12.6 13.4 14.6 PTT 26 34 30 INR 0.9 1.0 1.1 Micro: Rapid Respiratory Virus Antigen Panel: Negative Radiology/Studies: CT Chest PE Protocol (11/05/15): Lungs and airways:? No significant findings patchy airspace opacities.. Pleura and pericardium: No significant findings. Mediastinum and hilar structures: No lymphadenopathy. IMPRESSION: No acute pulmonary embolism identified. Patchy bilateral airspace opacities are present more significant than on prior study. Inflammatory process is not excluded. Multiple too small to further characterize hypodensities within the liver now numbering approximately 5.?? Statistically given their small size is likely representing a hepatic cysts. Chest XR (11/05/15): FINDINGS: ?? Bibasilar streaky opacities are present, likely mild atelectasis. Otherwise, the lungs are clear. No pneumothorax or pleural effusion. Stable cardiomediastinal silhouette, which is notable for mild cardiomegaly. Normal pulmonary vascular markings. No acute osseous findings. ?? IMPRESSION: ?? No acute cardiopulmonary process. PFTs (09/28/15): Normal diffusion capacity PFTs (09/09/15): FVC 2.82L FEV1 2.27L FEV1/FVC 0.81 Assessment and Recommendations: Not clear whether current pulmonary symptoms (dry cough, wheeze, chest pain, dyspnea) along with mild hypoxemia and patchy bilateral ground glass opacities, are due to an infectious or inflammatory process. Patient felt to have lupus although serology mixed (YELENA positive, SS-A weakly positive, ds DNA negative, hypocomplementemic). Doses of immunosuppresants have been low over last few months (Hydroxychloroquine 400mg and prednisone 5mg daily) and so patient is not really at risk for opportunistic infections and has received ample antibiotics for typical and atypical bacterial infections. Overall the presentation is most consistent with an inflammatory lung disease, an early cellular NSIP pattern, a ssociated with known connective tissue disease. # Recommendations: 1. We're not sure that bronchoscopy to exclude infectious agents is really necessarily here but Dr Huang will speak with patient's primary control systems designer Dr Lowe before coming to a decision. Dr Caraballo is covering for the weekend and Dr Huang will update him with plans. 2. Wheeze and a history of asthma. Regular bronchodilator such as duoneb 4 times daily and a low dose of inhaled corticosteroid BID (patient has previously taken flovent) is recommended Thank you for the consult. Will follow. DEONTE CASTREJON MD 11/06/2015 Internal Medicine, PGY 1 Pulmonology Consults Pager: #[phone] Associated attestation - Ke Huang MD - 11/06/2015 10:50 PM EDT Pulmonary/CCM Attending I have independently interviewed and examined the patient on rounds and discussed management with Dr. García. I agree with his documented findings and make the following additions and/or revisions: Complex and curious 55 yo woman with hx of lupus, who presented initially with some BUSINESS SUPPORT LIAISON problems and then later with pericarditis. Responded to prednisone, and maintained by Dr. Lowe successfully on 5 mg/d and Plaquenil, at least until last few weeks when she has begun feeling fatigue, malaise, mild dyspnea, and respirophasic chest pains. Has had several courses of antibiotics, w/o impact and CT done yesterday revealed no PE, but patchy GGO predominantly in subpleural regions. She is not immunocompromised, so there is no indication for BAL to r/o OI. GGO and symptoms of serositis, and constitutional symptoms strongly suggestive of lupus flare with new onset cellular NSIP (non-specific interstitial pneumonitis). This is not amenable to diagnosis with transbronchial biopsy, and would require VATS bx to confirm. However, ILD in the setting of a known connective tissue disease is not an indication for a lung biopsy (what can we learn?), but rather an indication for more aggressive antiinflammatory therapy. Though she has responded to 20 mg/d for her prior manifestations, the presence of lupus lung raises the stakes, and would recommend continuing the 80 qd for at least a few more days prior to re-evaluation. Discussed with Dr. Lowe who is in agreement with this. Agree with rec's per Dr. García. Sandra Huang MD [id number] Plan of Care - Vahid Young RN - 11/06/2015 5:06 AM EDT Problem: General Plan of Care Goal: Plan of Care Review Outcome: Ongoing (Interventions Implemented as Appropriate) 11/06/15116 Coping/Psychosocial Response Interventions Plan of Care Reviewed with patient Goal: Individualization and Mutuality Outcome: Ongoing (Interventions Implemented as Appropriate) 11/06/15 0001 Mutuality/Individual Preferences What anxieties, fears or concerns do you have about your health or care? Patient upset about what isgoing on. What questions do you have about your health or care? No What information would help us give you more personalized care? None Goal: Fall Prevention-Safe Patient Handling Outcome: Ongoing (Interventions Implemented as Appropriate) 11/06/15 0117 Rivera Fall Risk History of Falling 0 Secondary Diagnosis 0 Ambulatory Aids 0 Intravenous Therapy/Heparin/Saline Lock 20 Gait/Transferring 0 Mental Status 0 Score 20 OTHER Rivera Fall Risk Low Safety Interventions Safety Precautions/Fall Reduction environmental modification;fall reduction program maintained;lighting adjusted for task/safety;low bed;room near unit station Musculoskeletal Interventions Activity/Level of Assistance up ad darryl Positioning HOB up 15 degrees;supine Goal: Infection Control Outcome: Ongoing (Interventions Implemented as Appropriate) 11/06/15 011 Coping/Psychosocial Response Interventions Counseling emotional support provided;calming techniques promoted Goal: Discharge Needs Assessment Outcome: Ongoing (Interventions Implemented as Appropriate) 11/06/15 0012 Living Environment Transportation Available car OUTCOME EVALUATION NOTE: OUTCOME SUMMARY: AO, VSS, on tele. Arrived on floor over night. Admitted to ED for chest pain and SOB. No c/o pain, sob, chest pain or other symptoms during shift. Has wound on right ankle-wound care consulted. Will continue to monitor and notify MD of acute changes. PLAN MOVING FORWARD: -monitor labs (cardiac enzymes x3) -fluid therapy -oxygen therapy -telemetry CPG GOAL OUTCOME EVALUATION: Assistance: Independent-Standby Supervision: Independent with ADL's Surveillance: deyvi Bejarano rounding Cardiac/Telemetry Nursing Progress Note [id number] Objective: Vital Signs: See Vital signs below Cardiac Meds: See online MAR Labs: See labs in online chart. Assessment: tele report showed sinus rhythm, 60-90, pt denied chest pain or SOB, VSS (See flow sheet), will continue to monitor and notify MD of acute changes. Plan: Continue telemetry monitoring. Notify MD of any changes. See Attached Tele Strip. (in green paper chart). Last value Range last 12 hrs Temperature Temp: 36.9 ??C (98.4 ??F) Temp: [36.9 ??C (98.4 ??F)] Heart Rate Heart Rate: 73 Heart Rate: [66-74] Blood Pressure BP: 146/66 mmHg BP: (133-150)/(63-71) Respiratory Rate Resp: 20 Resp: [15-20] SpO2 SpO2: 98 % SpO2: [90 %-99 %] Med Student Progress Note - Matteo Dahl - 11/05/2015 3:45 PM EDT Medical Student ED Note Francie Yusuf is an 55 y.o. female who presents to the ED with: Chief Complaint Patient presents with ??? Shortness of Breath I saw this patient 11/05/2015 at 3:45pm HPI: Francie Yusuf is a 55 y.o. female with a history of asthma, cardiac tampanode and antiphospholipid syndrome who presents to the ED ongoing shortness of breath and chest pain. Patient reports that her respiratory problems started about 8 weeks ago with sinus congestion that she believes is now in her chest. She reports that she has been treated with 4 rounds of antibiotics including; Augmentin, clarithromycin, Levaquin, and bactrim with little to no improvement. She presented to [facility] last night for worsening shortness of breath, she apparently had a negative chest xray and negative labs and was d/c on prednisone 80 mg QID. She reports no improvement in her breathing, has dyspnea on exertion and while lying flat, increased fatigue, and 3/10 non-radiating mid-sternal pleuritic chest pain. She denies fever, chills, hemoptysis, headache Review of Systems: Review of Systems Objective: Vitals: Patient Vitals for the past 24 hrs: BP Temp Temp src Pulse Resp SpO2 11/05/15 1512 152/74 mmHg 37.5 ??C (99.5 ??F) Oral 79 19 94 % Physical Exam: Physical Exam Gen: 55 y.o. yo female who looks their age in no apparent distress, A&Oxperson,place,situation HEENT: PERRL, EOMI, sclera anicteric, OP clear, moist mucous membranes Neck: Supple with full ROM, no LAD or thyromegaly, no bruits CV: RRR w/ norm S1/S2, no m/r/g noted, Resp: breathing with little difficulty on RA, diffuse wheeze bilaterally throughout Abd: soft, nontender, nondistended, normoactive Extr: warm and well perfused, no edema, clubbing, or cyanosis Skin: Intact with no rashes, lesions, petechiae, or ecchymoses Neuro: CN 2-12 grossly intact; no focal deficits grossly noted. Labs: No leukocytosis, negative cardiac enzymes, negative DFA Other Studies: EKG: new lateral ST depressions CT scan: patchy bi.ateral opacities unclear if inflammatory process CXR: no acute cardiopulmonary process ED Course: - Patient seen under supervision of Dr. Montana Ulrich - Medications, allergies and past medical history reviewed Assessment and Plan: Assessment: 55 y.o. female complaining of worsening shortness of breath and pleuritic chest pain. Working-up thefollowing diagnosis ? WI - Her EKG shows slight ST depressions in leads V4-V6, troponin-T, but negative troponin-t ? Acute exacerbation of asthma however she has not had improvement with nebulized treatments or high dose prednisone. ? Lupus contributing to an inflammatory process in the lung ? Pulmonary embolism - she has an underlying history of anti-phospholipid syndrome, INR 0.9, negative CT scan ? ARDS - negative CXR and CT Plan: - admit to hospital medicine given the worsening SOB and new lateral ST depressions - Cardiac stress test - Pulmonology consult Signed: Matteo Hesham, MS4 Pager #[phone] ED Triage - Susan Joy, RN - 11/05/2015 3:16 PM EDT Pt presents to ED with c/o ongoing shortness of breath and sinus congestion. Pt has been treated forsinus infections x 4 rounds of Abx, noes no improvement. Was seen at [facility] yesterday for worsening shortness of breath. Told she had negative results from Xray and labwork, discharged on Prednisone. Arrives today with dyspnea on exertion, increased fatigue, inability to recover quickly after activity. Notes 3/10 midsternal CP, worsened with cough and deep inspiration and movement. Skin w/p/d, RR even and unlabored at rest. documented in this encounter Plan of Treatment Not on filedocumented as of this encounter Procedures Procedure Name Priority Date/Time Associated Comments Diagnosis PULMONARY FUNCTION TEST Routine 11/12/2015 12:27 ILD (intersti tial Results for this PM EDT lung disease) procedure are in the results section. CYBER SYSTEMS ADMINISTRATOR SCAN 11/10/2015 12:00 AM EDT HEMOGRAM Routine 11/08/2015 5:02 Results for this AM EDT procedure are i n the results section. DIFFERENTIAL, AUTOMATED Routine 11/08/2015 5:02 R esults for this AM EDT procedure are i n the results section. TPMT ENZYME Routine 11/08/2015 5:02 Results for this AM EDT procedure are i n the results section. CBC (WITH DIFF) Routine 11/08/2015 5:02 AM EDT BASIC METABOLIC PANEL Routine 11/08/2015 5:02 Res ults for this (NON-FASTING) AM EDT procedure are in the results section. C. DIFFICILE SCREEN Routine 11/07/2015 10:34 Resu lts for this AM EDT procedure are i n the results section. ECHOCARDIOGRAM COMPLETE Routine 11/07/2015 10:06 Chest pain, Results for this AM EDT unspecified chest procedure are in pain type the results section. HEMOGRAM Routine 11/07/2015 6:54 Results for this AM EDT procedure are i n the results section. DIFFERENTIAL, AUTOMATED Routine 11/07/2015 6:54 R esults for this AM EDT procedure are i n the results section. SEDIMENTATION RATE Routine 11/07/2015 6:54 Result s for this AM EDT procedure are i n the results section. CBC (WITH DIFF) Routine 11/07/2015 6:54 AM EDT CRP, CARDIAC RISK (HS Routine 11/07/2015 6:54 Res ults for this CRP) AM EDT procedure are i n the results section. BASIC METABOLIC PANEL Routine 11/07/2015 6:54 Res ults for this (NON-FASTING) AM EDT procedure are in the results section. CARDIAC ENZYMES Routine 11/06/2015 9:09 Results f or this ([facility]) AM EDT procedure are i n the results section. HEMOGRAM Routine 11/06/2015 3:02 Results for this AM EDT procedure are i n the results section. DIFFERENTIAL, AUTOMATED Routine 11/06/2015 3:02 R esults for this AM EDT procedure are i n the results section. CARDIAC ENZYMES Routine 11/06/2015 3:02 Results f or this ([facility]) AM EDT procedure are i n the results section. CBC (WITH DIFF) Routine 11/06/2015 3:02 AM EDT BASIC METABOLIC PANEL Routine 11/06/2015 3:02 Res ults for this (NON-FASTING) AM EDT procedure are in the results section. CT CHEST PULMONARY STAT 11/05/2015 8:11 Result s for this EMBOLISM W CONTRAST PM EDT procedur e are in the results section. XR CHEST PA AND LATERAL STAT 11/05/2015 4:14 R esults for this PM EDT procedure are i n the results section. RESP VIRUS AG PANEL STAT 11/05/2015 4:01 Resul ts for this PM EDT procedure are i n the results section. IMMUNOGLOBULINS, STAT 11/05/2015 4:00 Results for this QUANTITATIVE PM EDT procedure are i n the results section. HEMOGRAM STAT 11/05/2015 4:00 Results for this PM EDT procedure are i n the results section. DIFFERENTIAL, AUTOMATED STAT 11/05/2015 4:00 R esults for this PM EDT procedure are i n the results section. GOLD TUBE HOLD STAT 11/05/2015 4:00 Results fo r this PM EDT procedure are i n the results section. CARDIAC ENZYMES STAT 11/05/2015 4:00 Results f or this ([facility]) PM EDT procedure are i n the results section. HEPATITIS C ANTIBODY STAT 11/05/2015 4:00 Resu lts for this PM EDT procedure are i n the results section. HEPATITIS A ANTIBODY, STAT 11/05/2015 4:00 Res ults for this TOTAL PM EDT procedure are i n the results section. HEPATITIS B SURFACE STAT 11/05/2015 4:00 Resul ts for this ANTIBODY PM EDT procedure are i n the results section. HEPATITIS B SURFACE STAT 11/05/2015 4:00 Resul ts for this ANTIGEN PM EDT procedure are i n the results section. APTT STAT 11/05/2015 4:00 Results for this PM EDT procedure are i n the results section. PROTHROMBIN TIME STAT 11/05/2015 4:00 Results for this PM EDT procedure are i n the results section. CBC (WITH DIFF) STAT 11/05/2015 4:00 PM EDT C3 COMPLEMENT STAT 11/05/2015 4:00 Results for this PM EDT procedure are i n the results section. C4 COMPLEMENT STAT 11/05/2015 4:00 Results for this PM EDT procedure are i n the results section. BASIC METABOLIC PANEL STAT 11/05/2015 4:00 Res ults for this (NON-FASTING) PM EDT procedure are in the results section. EKG 12-LEAD STAT 11/05/2015 3:16 Results for this PM EDT procedure are i n the results section. documented in this encounter Results Pulmonary Function Testing (11/12/2015 12:27 PM EDT) Narrative Ke Huang MD - 11/12/2015 12:27 PM EDT Ke Huang MD ? 11/12/2015 12:27 PM FVC,FEV1 are low. FEV1/FVC within normal limits. Diffusing capacity low. IMPRESSION: Restrictive lung disease. Kolby Lemus MD PFT ORDERABLES SCAN DOC: CYBER SYSTEMS ADMINISTRATOR (11/10/2015 12:00 AM EDT) Narrative This result has an attachment that is no t available. Scanning Provider MEDIA MGR SCAN EXT ORDR/RSLT (ABNORMAL) Differential, Automated (11/08/2015 5:02 AM EDT) [facility] Method Time Signature Neutrophils % 69.2 % [facility] Neutr Abs (ANC) 2.95 1.50 - [facility] 6.30 [facility] x10(3)/[facility] LABORATORY Lymphocytes % 20.7 % [facility] Lymphocytes Abs 0.9 (L) 1.0 - 3.6 [facility] x10(3)/[facility] LABORATORY Monocytes % 9.6 % [facility] Monocyte Abs 0.4 0.2 - 1.0 [facility] x10(3)/[facility] LABORATORY Eosinophils % 0.0 % [facility] Eosinophils Abs 0.0 0.0 - 0.5 [facility] x10(3)/[facility] LABORATORY Basophils % 0.0 % [facility] Basophils Abs 0.0 0.0 - 0.2 [facility] x10(3)/[facility] LABOR[facility]ORY Immature Gran % 0.50 % [facility] Comment: Immature granulocytes(IG's)percentage an d absolute count will include metamyelocytes, myelocytes, and promyelo cytes. Blood smears from CBCs yielding IG's will be scanned manually for concmurray danjanel. If this scan disagrees with the automated IG or if promyelocytes are not ed, a manual differential will be performed. Cheryl Gran Abs 0.02 0.00 - 0.05 x10(3)/[place] [facility] LABORATORY Specimen Anatomical Collection Method Collection Time Receive d Time (Source) Location / / Volume Laterality Blood specimen 11/08/2015 5:02 AM 016 5:17 (specimen) EDT AM EDT Resulting Agency Comment Spec In Lab Fabián Kwan MD HEMATOLOGY ORDERABLES Performing Organization Address City/State/ZIP Code Phon e Number [place] [id number]OS[address] LAB[address]ORY [address] Hemogram (11/08/2015 5:02 AM EDT) athologist Signature WBC 4.3 4.0 - 10.0 [facility] x10(3)/[facility] LABORATORY RBC 4.94 3.93 - 5.22 [facility] x10(6)/[facility] LABORATORY Hemoglobin 13.4 11.2 - 15.7 [facility] gm/dL [facility] LABORATORY Hematocrit 39.9 34.0 - 45.0 [facility] LABORATORY MCV 80.8 79.0 - 94.0 [facility] LABORATORY MCH 27.1 26.6 - 32.2 [facility] LABORATORY MCHC 33.6 32.0 - 36.5 [facility] gm/dL [facility] LABORATORY Platelets 204 145 - 370 [facility] x10(3)/[facility] LABORATORY RDWSD 41.4 35.0 - 46.0 [facility] LABORATORY RDWCV 14.0 10.9 - 14.4 [facility] LABORATORY MPV 9.8 9.0 - 12.0 [facility] LABORATORY Specimen Anatomical Collection Method Collection Time Receive d Time (Source) Location / / Volume Laterality Blood specimen 11/08/2015 5:02 AM 016 5:17 (specimen) EDT AM EDT Resulting Agency Comment Spec In Lab Fabián Kwan MD HEMATOLOGY ORDERABLES Performing Organization Address City/[facility]/[place] [address] [facility] [address]ORY [address] TPMT Enzyme (11/08/2015 5:02 AM EDT) athologist Signature TPMT Enzyme See Note [facility] LABORATORY Comment: Please see scanned report in Ch art Review under the Non-DH Laboratory Heading. Specimen Anatomical Collection Method Collection Time Receive d Time (Source) Location / / Volume Laterality Blood specimen 11/08/2015 5:02 AM 016 8:08 (specimen) EDT AM EDT Narrative This result has an attachment that is no t available. Resulting Agency Comment Spec In Lab Sylvia Brantley MD CHEMISTRY ORDERABLES Performing Organization Address City/State/[place] [address] (ABNORMAL) Basic Metabolic Panel (non-fasting) (11/08/2015 5:02 AM EDT) athologist Signature Glucose Lvl 105 65 - 199 [facility] mg/dL [facility] LABORATORY Comment: Diabetes: >=200 mg/dL plus symp toms BUN 16 8 - 18 mg/dL [facility] LABORATORY Creatinine 0.72 0.70 - 1.20 mg/dL [facility] LABORATORY Comment: Please note that the pediatric reference intervals supplied above were not validated at [facility]. Results from pediatri c patients should be interpreted in conjunction to the patient's age, height and muscle mass. Sodium 142 135 - 145 mmol/L [facility] LABORATORY Potassium 3.6 3.5 - 5.0 mmol/L [facility] LABORATORY Comment: Please note: ??Patients with WBC >100,00 0 may have falsely elevated Potassium levels. ??For accurate Potassium quantif ication in these patients send serum separator tube (gold top) for subsequent determinations. ??Contact the Clinical Chemistry Laboratory if there are any qu estions. Chloride 103 98 - 107 mmol/L [facility] LABORATORY CO2 27 22 - 31 mmol/L [facility] LABORATORY Anion Gap 12 5 - 15 mmol/L [facility] LABORATORY Calcium 7.1 (L) 8.5 - 10.5 mg/dL [facility] LABORATORY Estimated GFR >60 >=60 [facility] Comment: This estimated GFR (eGFR) [...] the following links into your internet browser. [email or web address] Specimen Anatomical Collection Method Collection Time Receive d Time (Source) Location / / Volume Laterality Blood specimen 11/08/2015 5:02 AM 016 5:17 (specimen) EDT AM EDT Resulting Agency Comment Spec In Lab Fabián Kwan MD CHEMISTRY ORDERABLES Performing Organization Address City/[facility]/[place] [address] C. Difficile Screen (11/07/2015 10:34 AM EDT) Analysis Performed At Patho logist Time Signature C Diff Screen Negative Negative [facility] LABORATORY Specimen Anatomical Collection Method Collection Time Receive d Time (Source) Location / / Volume Laterality Stool specimen 11/07/2015 10:34 6 (specimen) AM EDT 11:10 AM EDT Resulting Agency Comment Spec In Lab Sylvia Brantley MD MICROBIOLOGY - GENERAL ORDER RINA Performing Organization Address City/[facility]/[place] [address] ECHOCARDIOGRAM COMPLETE (11/07/2015 10:06 AM EDT) P athologist Signature EF 70 [facility]ART[facility] SYSTEM Anatomical Region Laterality Modality Other Specimen (Source) Anatomical Location Collection Method / Collectio n Time Received Time / Laterality Volume 11/07/2015 Narrative 11/07/2015 12:49 PM EDT Procedure: ?Transthoracic Echocardiogram Patient: ?YUSUF FRANCIE N ? (Age): 1960(55y) Med Rec#: ? [id number] ?Sex: ?F ? Site Loc: ? [facility] ?Ht / Wt: ??163(cm)/91(kg) Pt. Loc: ?Adult Floor ? BSA: ?1.96 Study Date: ?? 11/07/2015 ?Pt. Type: Inpatient Tape: ? Referring: Gabino Spears Reading: Eber Toledo ([id number]) Die Cast Patternmaker: Doris Baron BA [facility] Diagnosis: *ICD-10-PCS Chest pain, unspecified (R0 7.9) CPT Codes: *Echo Full (52811) *Spectral Doppler (05332) *Color Doppler (08655) Rhythm: ? Sinus BP: ? 121/59 SUMMARY: 1. The left ventricular chamber size is normal. Left ventricular wall thickness is normal. There is normal awilda bal left ventricular systolic function. The quantitative left ventricu lar ejection fraction by biplane Fisher's method is 70%. There are no le ft ventricular segmental wall motion abnormalities. Doppler assessment is consistent with normal left sided filling pressure. 2. Right ventricular chamber size, wall thickness, and systolic function are within normal limits. The estimated pulmonary artery systolic pressure is 23 mmHg. 3. There is no hemodynamically significa nt valvular disease. 4. See remainder of report for additiona l findings. ??Prior study 04/2015 with no major changes. Findings ? : Study Quality: ? Adequate Left Ventricle: ? The left ventricul ar chamber size is normal. ?Left ventricular wall thickness is normal. ?There is normal global left ventri cular systolic function. ?The quantitative left ventricular ejection fraction by biplane Fisher's method is 70%. ?There are no left ventricular segm ental wall motion abnormalities. ?Doppler assessment is consistent w ith normal left sided filling pressure. Left Atrium: ? The left atrium is no rmal in size. (32 ml/m2 by volume index) Right Ventricle: ? Right ventricular chamber size, wall thickness, and systolic function are within normal limi ts. ?The estimated pulmonary artery sys tolic pressure is 23 mmHg. ?The estimated right atrial pressur e is 3 mmHg. Right Atrium: ? The right atrium jessenia ears normal. Aortic Valve: ? The aortic valve is tricuspid. ?There is aortic annular calcificat ion. ?There is no evidence of aortic autumn ve stenosis. ?There is a trace of aortic regurgi tation present. Mitral Valve: ? The mitral valve jessenia ears normal in structure and function. ?There is trace mitral regurgitatio n present. Tricuspid Valve: ? The tricuspid autumn ve appears normal in structure and function. ?There is trace tricuspid regurgita tion present. Pulmonic Valve: ? The pulmonic valve appears normal in structure and function. Pericardium: ? The pericardium appea rs normal and there is no evidence of a pericardial effusion. Aorta: ? The aortic root is normal i n size. ?The ascending aorta is normal in s ize. Pulmonary Artery: ? The main pulmona ry artery appears normal. Venous: ? The inferior vena cava jessenia ears normal in size. ?There is a greater than 50% respir atory change in the inferior vena cava dimension. Misc: ? See remainder of report for additional findings. ?Two-dimensional echo, spectral Dop pler and color Doppler performed. Chambers 2D ?Value ?Units (Range) ? IVSd (2D) ? 0.9 ?cm ? LVPWd (2D) ?0.9 ?cm ? IVS:LVPW ratio (2D) 1 ?ratio ? LVIDd (2D) ?4.4 ?cm ? LVIDs (2D) ?2.4 ?cm ? LVIDd (2D) index ?2.2 ?cm/m2 ? LVIDs (2D) index ?1.2 ?cm/m2 ? LV FS (2D) ?44 ? % ? EF Teichholz (2D) ?? 76 ? % ? Ao root diameter (2D2.9 ?cm (2.1 - 3.6) ? Ascending Ao ?3.3 ?cm (2 - 3.5) ? Volumes/Mass ?Value ?Units (Range) ? LA Area 4 CH ?17.9 ? cm2 (<21) ? RA AREA 4CH ? 15.2 ? cm2 ? LA ESV SP 4CH (MOD) 72.1 ? ml ? LA ESV SP 2CH (MOD) 49.2 ? ml ? LA ESV BP (MOD) ? 63 ? ml ? LA ESV BP (MOD) inde32.1 ? ml/m2 ? LV ESV SP 4CH (MOD) 18.9 ? ml ? LV ESV SP 2CH (MOD) 23.2 ? ml ? LV EDV BP ? 72.2 ? ml ? LV ESV BP ? 21.2 ? ml ? BP EF (MOD) ? 71 ? % ? LV mass (2D) ?123.8 ?g ? LV mass (2D) index ??63.2 ? g/m2 ? Diastolic/Systolic Function ?Value ?Units (Range) ? MV E-wave Vmax ?0.8 ?m/sec ? MV deceleration [id number] ?msec ? MV A-wave Vmax ?0.7 ?m/sec ? MV E:A ratio ?1.1 ?ratio ? LV E:e' septal ratio9.6 ?ratio ? Tricuspid Valve ?Value ?Units (Range) ? TAPSE ? 1.9 ?cm ? TR Vmax ? 2.2 ?m/sec ? TR peak gradient ?19.9 ? mmHg ? RAP ? 3 ?mmHg ? RVSP ?23 ? mmHg ? Measurement Trending Name ? 11/07/2015 ? LV EDV BP ?7 2.2 LVIDd (2D) ? 4. 39 LV ESV BP ?2 1.2 LA ESV BP (MOD) ?63 LVIDs (2D) ? 2. 44 Wall Motion: Segment Name ?Rest ? Base-Anteroseptal ?? Normal ? Base-Anterior ? Normal ? Base-Anterolateral ??Normal ? Base-Posterolateral Normal ? Base-Inferior ? Normal ? Base-Inferoseptal ?? Normal ? Mid-Anteroseptal ?Normal ? Mid-Anterior ?Normal ? Mid-Anterolateral ?? Normal ? Mid-Posterolateral ??Normal ? Mid-Inferior ?Normal ? Mid-Inferoseptal ?Normal ? Corral-Septal ? Normal ? Corral-Anterior ? Normal ? Corral-Lateral ?Normal ? Corral-Inferior ? Normal ? Corral-Tip ?Normal ? This report has been electronically sign ed by: _ Eber Toledo MD ? 11/07/2015 12:48:57 Images reviewed and interpretation verif ied [facility] Procedure Note Eber Toledo MD - 11/07/2015For matting of this note might be different from the original. Procedure: Transthoracic Echocardiogram Patient: YUSUF FRANCIE Gonzales (Age): [birth year](55y) Med Rec#: [id number] Sex: F Site Loc: [facility] Ht / Wt: 163(cm)/91(kg) Pt. Loc: Adult Floor BSA: 1.96 Study Date: 11/07/2015 Pt. Type: Inpatie nt Tape: Referring: Gabino Spears Reading: Eber Toledo ([id number]) Die Cast Patternmaker: Doris Baron BA, [facility] Diagnosis: *ICD-10-PCS Chest pain, unspecified (R0 7.9) CPT Codes: *Echo Full (45635) *Spectral Doppler (17865) *Color Doppler (01843) Rhythm: Sinus BP: 121/59 SUMMARY: 1. The left ventricular chamber size is normal. Left ventricular wall thickness is normal. There is normal awilda bal left ventricular systolic function. The quantitative left ventricu lar ejection fraction by biplane Fisher's method is 70%. There are no le ft ventricular segmental wall motion abnormalities. Doppler assessment is consistent with normal left sided filling pressure. 2. Right ventricular chamber size, wall thickness, and systolic function are within normal limits. The estimated pulmonary artery systolic pressure is 23 mmHg. 3. There is no hemodynamically significa nt valvular disease. 4. See remainder of report for additiona l findings. Prior study 04/2015 with no major changes. Findings : Study Quality: Adequate Left Ventricle: The left ventricular nishi mber size is normal. Left ventricular wall thickness is norm al. There is normal global left ventricular systolic function. The quantitative left ventricular eject ion fraction by biplane Fisher's method is 70%. There are no left ventricular segmental wall motion abnormalities. Doppler assessment is consistent with n ormal left sided filling pressure. Left Atrium: The left atrium is normal i n size. (32 ml/m2 by volume index) Right Ventricle: Right ventricular chamb er size, wall thickness, and systolic function are within normal limi ts. The estimated pulmonary artery systolic pressure is 23 mmHg. The estimated right atrial pressure is 3 mmHg. Right Atrium: The right atrium appears n ormal. Aortic Valve: The aortic valve is tricus pid. There is aortic annular calcification. There is no evidence of aortic valve st enosis. There is a trace of aortic regurgitatio n present. Mitral Valve: The mitral valve appears n ormal in structure and function. There is trace mitral regurgitation pre sent. Tricuspid Valve: The tricuspid valve jessenia ears normal in structure and function. There is trace tricuspid regurgitation present. Pulmonic Valve: The pulmonic valve appea rs normal in structure and function. Pericardium: The pericardium appears nor mal and there is no evidence of a pericardial effusion. Aorta: The aortic root is normal in size . The ascending aorta is normal in size. Pulmonary Artery: The main pulmonary art snow appears normal. Venous: The inferior vena cava appears n ormal in size. There is a greater than 50% respiratory change in the inferior vena cava dimension. Misc: See remainder of report for additi onal findings. Two-dimensional echo, spectral Doppler and color Doppler performed. Chambers 2D Value Units (Range) IVSd (2D) 0.9 cm LVPWd (2D) 0.9 cm IVS:LVPW ratio (2D) 1 ratio LVIDd (2D) 4.4 cm LVIDs (2D) 2.4 cm LVIDd (2D) index 2.2 cm/m2 LVIDs (2D) index 1.2 cm/m2 LV FS (2D) 44 % EF Teichholz (2D) 76 % Ao root diameter (2D2.9 cm (2.1 - 3.6) Ascending Ao 3.3 cm (2 - 3.5) Volumes/Mass Value Units (Range) LA Area 4 CH 17.9 cm2 (<21) RA AREA 4CH 15.2 cm2 LA ESV SP 4CH (MOD) 72.1 ml LA ESV SP 2CH (MOD) 49.2 ml LA ESV BP (MOD) 63 ml LA ESV BP (MOD) inde32.1 ml/m2 LV ESV SP 4CH (MOD) 18.9 ml LV ESV SP 2CH (MOD) 23.2 ml LV EDV BP 72.2 ml LV ESV BP 21.2 ml BP EF (MOD) 71 % LV mass (2D) 123.8 g LV mass (2D) index 63.2 g/m2 Diastolic/Systolic Function Value Units (Range) MV E-wave Vmax 0.8 m/sec MV deceleration [id number] msec MV A-wave Vmax 0.7 m/sec MV E:A ratio 1.1 ratio LV E:e' septal ratio9.6 ratio Tricuspid Valve Value Units (Range) TAPSE 1.9 cm TR Vmax 2.2 m/sec TR peak gradient 19.9 mmHg RAP 3 mmHg RVSP 23 mmHg Measurement Trending Name 11/07/2015 LV EDV BP 72.2 LVIDd (2D) 4.39 LV ESV BP 21.2 LA ESV BP (MOD) 63 LVIDs (2D) 2.44 Wall Motion: Segment Name Rest Base-Anteroseptal Normal Base-Anterior Normal Base-Anterolateral Normal Base-Posterolateral Normal Base-Inferior Normal Base-Inferoseptal Normal Mid-Anteroseptal Normal Mid-Anterior Normal Mid-Anterolateral Normal Mid-Posterolateral Normal Mid-Inferior Normal Mid-Inferoseptal Normal Corral-Septal Normal Corral-Anterior Normal Corral-Lateral Normal Corral-Inferior Normal Corral-Tip Normal This report has been electronically sign ed by: _ Eber Toledo MD 11/07/2015 12:48: 57 Images reviewed and interpretation verif ied [facility] Tory Lloyd MD ECHO ORDERABLES High Sensitivity CRP (11/07/2015 6:54 AM EDT) P athologist Signature CRP High Sens 63.0 mg/L [facility] Comment: Interpretations: 1) For [...] Volume Laterality Blood specimen Venous Draw / 11/07/2015 6:54 AM 2015 7:08 (specimen) Unknown EDT AM EDT Resulting Agency Comment Spec In Lab Fabián Kwan MD CHEMISTRY ORDERABLES Performing Organization Address City/State/[place] [address] Sedimentation rate (11/07/2015 6:54 AM EDT) P athologist Signature Sed Rate 17 0 - 20 [facility] mm/hr [facility] Specimen Anatomical Collection Method Collection Time Receive d Time (Source) Location / / Volume Laterality Blood specimen Venous Draw / 11/07/2015 6:54 AM 2015 7:05 (specimen) Unknown EDT AM EDT Resulting Agency Comment Spec In Lab Fabián Kwan MD HEMATOLOGY ORDERABLES Performing Organization Address City/State/[place] [address] (ABNORMAL) Differential, Automated (11/07/2015 6:54 AM EDT) [facility] Method Time Signature Neutrophils % 65.7 % [facility] Neutr Abs (ANC) 2.35 1.50 - [facility] 6.30 [facility] x10(3)/[facility] LABORATORY Lymphocytes % 21.6 % [facility] Lymphocytes Abs 0.8 (L) 1.0 - 3.6 [facility] x10(3)/[facility] LABORATORY Monocytes % 11.5 % [facility] Monocyte Abs 0.4 0.2 - 1.0 [facility] x10(3)/[facility] LABORATORY Eosinophils % 0.6 % [facility] Eosinophils Abs 0.0 0.0 - 0.5 [facility] x10(3)/[facility] LABORATORY Basophils % 0.0 % [facility] Basophils Abs 0.0 0.0 - 0.2 [facility] x10(3)/[facility] LABORATORY Immature Gran % 0.60 % [facility] Comment: Immature granulocytes(IG's)percentage an d absolute count will include metamyelocytes, myelocytes, and promyelo cytes. Blood smears from CBCs yielding IG's will be scanned manually for concor dance. If this scan disagrees with the automated IG or if promyelocytes are not ed, a manual differential will be performed. Cheryl Gran Abs 0.02 0.00 - 0.05 x10(3)/[facility] Specimen Anatomical Collection Method Collection Time Receive d Time (Source) Location / / Volume Laterality Blood specimen 11/07/2015 6:54 AM 016 7:05 (specimen) EDT AM EDT Resulting Agency Comment Spec In Lab Fabián Kwan MD HEMATOLOGY ORDERABLES Performing Organization Address City/State/ZIP Code Phon [place] [address] (ABNORMAL) Hemogram (11/07/2015 6:54 AM EDT) athologist Signature WBC 3.6 (L) 4.0 - 10.0 [facility] x10(3)/[facility] LABORATORY RBC 4.69 3.93 - [place] 5.22 [facility] x10(6)/[facility] LABORATORY Hemoglobin 12.8 11.2 - [place] 15.7 gm/dL [facility] Hematocrit 38.6 34.0 - [place] 45.0 % [facility] MCV 82.3 79.0 - [facility] 94.0 [facility] LABORATORY MCH 27.3 26.6 - [place] 32.2 pg [facility] MCHC 33.2 32.0 - [place] 36.5 gm/dL [facility] Platelets 161 145 - 370 [facility] x10(3)/[facility] LABORATORY RDWSD 44.1 35.0 - [facility] 46.0 [facility] LABORATORY RDWCV 14.8 (H) 10.9 - [place] 14.4 % [facility] LABORATORY MPV 9.6 9.0 - 12.0 [facility] LABORATORY Specimen Anatomical Collection Method Collection Time Receive d Time (Source) Location / / Volume Laterality Blood specimen 11/07/2015 6:54 AM 016 7:05 (specimen) EDT AM EDT Resulting Agency Comment Spec In Lab Fabián Kwan MD HEMATOLOGY ORDERABLES Performing Organization Address City/State/[place] [address] (ABNORMAL) Basic Metabolic Panel (non-fasting) (11/07/2015 6:54 AM EDT) athologist Signature Glucose Lvl 88 65 - 199 [facility] mg/dL [facility] Comment: Diabetes: >=200 mg/dL plus symp toms BUN 17 8 - 18 mg/dL [facility] LABORATORY Creatinine 0.64 (L) 0.70 - 1.20 mg/dL [facility] Comment: Please note that the pediatric reference intervals supplied above were not validated at [facility]. Results from pediatri c patients should be interpreted in conjunction to the patient's age, height and muscle mass. Sodium 142 135 - 145 mmol/L [facility] Potassium 3.7 3.5 - 5.0 mmol/L [facility] Comment: Please note: ??Patients with WBC >100,00 0 may have falsely elevated Potassium levels. ??For accurate Potassium quantif ication in these patients send serum separator tube (gold top) for subsequent determinations. ??Contact the Clinical Chemistry Laboratory if there are any qu estions. Chloride 105 98 - 107 mmol/L [facility] CO2 26 22 - 31 mmol/L [facility] Anion Gap 11 5 - 15 mmol/L [facility] Calcium 7.0 (L) 8.5 - 10.5 mg/dL [facility] Estimated GFR >60 >=60 [facility] Comment: This estimated GFR (eGFR) [...] the following links into your internet browser. [email or web address] Specimen Anatomical Collection Method Collection Time Receive d Time (Source) Location / / Volume Laterality Blood specimen 11/07/2015 6:54 AM 016 7:05 (specimen) EDT AM EDT Resulting Agency Comment Spec In Lab Fabián Kwan MD CHEMISTRY ORDERABLES Performing Organization Address City/State/[place] [address] Cardiac Enzymes (11/06/2015 9:09 AM EDT) athologist Signature Troponin-T <0.03 <=0.03 [facility] ng/mL [facility] Comment: 0.03 ng/mL: Represents the 99th percenti le upper reference limit for normals. >0.03 ng/mL: Elevated cardiac troponin T level indicative of myocardial damage. Diagnosis of acute, evolving or recent M I requires a typical rise and gradual fall of cTnT with at least ONE of the fo llowing: a) Ischemic symptoms b) Development of pathologic Q waves on the ECG c) ECG changes indicative of eschemia (S -T segment elevation/depression) d) Coronary artery intervention Serial bloods should be obtained for derrick ting on admission, at 6 to 9 hrs and again at 12 to 24 hrs if earlier samples are negative and the clinical index of suspicion is high. Reference: [Myocardial infarction redefined? a consensus document of the Joint Society of Cardiology/[place] [employer] f [employer] Committee for the redefinition of myocardial infarction. ? ?Journal of the [place] [employer] 2000; 36: 959-969] CK, Total 91 0 - 160 unit/L [facility] Specimen Anatomical Collection Method Collection Time Receive d Time (Source) Location / / Volume Laterality Blood specimen 11/06/2015 9:09 AM 016 9:20 (specimen) EDT AM EDT Resulting Agency Comment Spec In Lab Fabián Kwan MD CHEMISTRY ORDERABLES Performing Organization Address City/State/ZIP Code Phon e Number [place] [id number]OS[address] LAB[address]ORY Drive (ABNORMAL) Differential, Automated (11/06/2015 3:02 AM EDT) [facility] Method Time Signature Neutrophils % 76.4 % [facility] Neutr Abs (ANC) 4.49 1.50 - [facility] 6.30 [facility] x10(3)/[facility] LABORATORY Lymphocytes % 11.2 % [facility] Lymphocytes Abs 0.7 (L) 1.0 - 3.6 [facility] x10(3)/[facility] LABORATORY Monocytes % 12.2 % [facility] Monocyte Abs 0.7 0.2 - 1.0 [facility] x10(3)/[facility] LABORATORY Eosinophils % 0.0 % [facility] Eosinophils Abs 0.0 0.0 - 0.5 [facility] x10(3)/[facility] LABORATORY Basophils % 0.0 % [facility] Basophils Abs 0.0 0.0 - 0.2 [facility] x10(3)/[facility] LABORATORY Immature Gran % 0.20 % [facility] Comment: Immature granulocytes(IG's)percentage an d absolute count will include metamyelocytes, myelocytes, and promyelo cytes. Blood smears from CBCs yielding IG's will be scanned manually for concor dance. If this scan disagrees with the automated IG or if promyelocytes are not ed, a manual differential will be performed. Cheryl Gran Abs 0.01 0.00 - 0.05 x10(3)/[facility] LABORATORY Specimen Anatomical Collection Method Collection Time Receive d Time (Source) Location / / Volume Laterality Blood specimen 11/06/2015 3:02 AM 016 3:44 (specimen) EDT AM EDT Resulting Agency Comment Spec In Lab Fabián Kwan MD HEMATOLOGY ORDERABLES Performing Organization Address City/State/[place] [address] Hemogram (11/06/2015 3:02 AM EDT) P athologist Signature WBC 5.9 4.0 - 10.0 [facility] LABORATORY RBC 4.83 3.93 - 5.22 [facility](6[facility] LABORATORY Hemoglobin 13.2 11.2 - 15.7 [facility] gm/dL [facility] LABORATORY Hematocrit 39.4 34.0 - 45.0 [facility] LABORATORY MCV 81.6 79.0 - 94.0 [facility] LABORATORY MCH 27.3 26.6 - 32.2 [facility] LABORATORY MCHC 33.5 32.0 - 36.5 [facility] gm/dL [facility] LABORATORY Platelets 213 145 - 370 [facility] x10(3)/[facility] LABORATORY RDWSD 43.2 35.0 - 46.0 [facility] LABORATORY RDWCV 14.4 10.9 - 14.4 [facility] LABORATORY MPV 9.9 9.0 - 12.0 [facility] LABORATORY Specimen Anatomical Collection Method Collection Time Receive d Time (Source) Location / / Volume Laterality Blood specimen 11/06/2015 3:02 AM 016 3:44 (specimen) EDT AM EDT Resulting Agency Comment Spec In Lab Fabián Kwan MD HEMATOLOGY ORDERABLES Performing Organization Address City/[facility]/[place] [address] Cardiac Enzymes (11/06/2015 3:02 AM EDT) P athologist Signature Troponin-T <0.03 <=0.03 [facility] ng/mL [facility] LABORATORY Comment: 0.03 ng/mL: Represents the 99th percenti le upper reference limit for normals. >0.03 ng/mL: Elevated cardiac troponin T level indicative of myocardial damage. Diagnosis of acute, evolving or recent M I requires a typical rise and gradual fall of cTnT with at least ONE of the fo llowing: a) Ischemic symptoms b) Development of pathologic Q waves on the ECG c) ECG changes indicative of eschemia (S -T segment elevation/depression) d) Coronary artery intervention Serial bloods should be obtained for derrick ting on admission, at 6 to 9 hrs and again at 12 to 24 hrs if earlier samples are negative and the clinical index of suspicion is high. Reference: [Myocardial infarction redefined? a consensus document of the Joint Society of Cardiology/[place] [employer] o f [employer] Committee for the redefinition of myocardial infarction. ? ?Journal of the [place] [employer]iology 2000; 36: 959-969] CK, Total 101 0 - 160 unit/L [facility] LABORATORY Specimen Anatomical Collection Method Collection Time Receive d Time (Source) Location / / Volume Laterality Blood specimen 11/06/2015 3:02 AM 016 3:44 (specimen) EDT AM EDT Resulting Agency Comment Spec In Lab Fabián Kwan MD CHEMISTRY ORDERABLES Performing Organization Address City/State/ZIP Code Phon e Number [facility] [place] [address] (ABNORMAL) Basic Metabolic Panel (non-fasting) (11/06/2015 3:02 AM EDT) athologist Signature Glucose Lvl 124 65 - 199 [facility] mg/dL [facility] LABORATORY Comment: Diabetes: >=200 mg/dL plus symp toms BUN 15 8 - 18 mg/dL [facility] LABORATORY Creatinine 0.85 0.70 - 1.20 mg/dL [facility] LABORATORY Comment: Please note that the pediatric reference intervals supplied above were not validated at [facility]. Results from pediatri c patients should be interpreted in conjunction to the patient's age, height and muscle mass. Sodium 140 135 - 145 mmol/L [facility] LABORATORY Potassium 3.4 (L) 3.5 - 5.0 mmol/L [facility] LABORATORY Comment: Please note: ??Patients with WBC >100,00 0 may have falsely elevated Potassium levels. ??For accurate Potassium quantif ication in these patients send serum separator tube (gold top) for subsequent determinations. ??Contact the Clinical Chemistry Laboratory if there are any qu estions. Chloride 97 (L) 98 - 107 mmol/L [facility] LABORATORY CO2 27 22 - 31 mmol/L [facility] LABOR[facility]ORY Anion Gap 16 (H) 5 - 15 mmol/L [facility] LABORATORY Calcium 7.4 (L) 8.5 - 10.5 mg/dL [facility] LABORATORY Estimated GFR >60 >=60 [facility] LABORATORY Comment: This estimated GFR (eGFR) [...] the following links into your internet browser. [email or web address] Specimen Anatomical Collection Method Collection Time Receive d Time (Source) Location / / Volume Laterality Blood specimen 11/06/2015 3:02 AM 016 3:44 (specimen) EDT AM EDT Resulting Agency Comment Spec In Lab Fabián Kwan MD CHEMISTRY ORDERABLES Performing Organization Address City/State/[place] [address] Chest Pulmonary Embolism With Contrast (11/05/2015 8:11 PM EDT) Anatomical Region Laterality Modality Chest Computed Tomography Specimen (Source) Anatomical Location Collection Method / Collectio n Time Received Time / Laterality Volume Impressions 11/05/2015 8:51 PM EDT IMPRESSION: No acute pulmonary embolism identified. Patchy bilateral airspace opacities are present more significant than on prior study. Inflammatory process is not exclu ded. Multiple too small to further characteri ze hypodensities within the liver now numbering approximately 5. ??Statistical ly given their small size is likely representing a hepatic cysts. Narrative 11/05/2015 8:51 PM EDT EXAMINATION: CT angiogram of pulmonary arteries CLINICAL HISTORY: SOB, h/o antiphospholi pid, PE? TECHNIQUE: Helical CT angiogram of the c hest was performed after intravenous contrast administration of 95cc of Omnip aque 350. ??Thin-section reconstructions as well as coronal and sagittal MIP refo rmatted images were generated to aid in evaluation. COMPARISON: CTA 05/01/[address] FINDINGS: Pulmonary arteries: Normal caliber. ??No intraluminal filling defects. Other cardiovascular structures: No sign ificant findings. No significant pericardial fluid. No pleural fluid. Pat jeanie subsegmental opacities at the lung bases. Unchanged appearance to the 3 mm nodular density in the right upper lobe. A cystic bleb is present at the right mirela ng apex. Patchy focal opacities throughout the left lung periphery. ? Lungs and airways:? No significant findi ngs patchy airspace opacities.. Pleura and pericardium: No significant f indings. Mediastinum and hilar structures: No lym phadenopathy. ? Limited views of the upper abdomen: Unch anged appearance to 3 small low-density lesions within the liver, too small to c haracterize likely representing hepatic cysts. Additional hypodensity noted pedro g the right lobe periphery. Procedure Note Qi Godwin MD - 11/05/2015Forma tting of this note might be different from the original. EXAMINATION: CT angiogram of pulmonary a rteries CLINICAL HISTORY: SOB, h/o antiphospholi pid, PE? TECHNIQUE: Helical CT angiogram of the c hest was performed after intravenous contrast administration of 95cc of Omnip aque 350. Thin-section reconstructions as well as coronal and sagittal MIP refo rmatted images were generated to aid in evaluation. COMPARISON: CTA 05/01/[address] FINDINGS: Pulmonary arteries: Normal caliber. No i ntraluminal filling defects. Other cardiovascular structures: No sign ificant findings. No significant pericardial fluid. No pleural fluid. Pat jeanie subsegmental opacities at the lung bases. Unchanged appearance to the 3 mm nodular density in the right upper lobe. A cystic bleb is present at the right mirela ng apex. Patchy focal opacities throughout the left lung periphery. ? Lungs and airways:? No significant findi ngs patchy airspace opacities.. Pleura and pericardium: No significant f indings. Mediastinum and hilar structures: No lym phadenopathy. ? Limited views of the upper abdomen: Unch anged appearance to 3 small low-density lesions within the liver, too small to c haracterize likely representing hepatic cysts. Additional hypodensity noted pedro g the right lobe periphery. IMPRESSION IMPRESSION: No acute pulmonary embolism identified. Patchy bilateral airspace opacities are present more significant than on prior study. Inflammatory process is not exclu ded. Multiple too small to further characteri ze hypodensities within the liver now numbering approximately 5. Statistically given their small size is likely representing a hepatic cysts. Diana Mcnamara MD IMG CT ORDERABLES XR Chest Routine PA & Lateral (11/05/2015 4:14 PM EDT) Anatomical Region Laterality Modality Chest N/A Digital Radiography Specimen (Source) Anatomical Location Collection Method / Collectio n Time Received Time / Laterality Volume Impressions 11/05/2015 4:22 PM EDT IMPRESSION: No acute cardiopulmonary process. I have personally reviewed the image(s) and the residents interpretation and agree with the findings, Patricio sher 11/05/2015 4:22 PM Narrative 11/05/2015 4:22 PM EDT EXAMINATION: XR CHEST ROUTINE PA AND LATERAL CLINICAL HISTORY: cough, SOB TECHNIQUE: PA and lateral chest radiogra phs, standing. COMPARISON: Chest radiograph 02/03/2015. FINDINGS: Bibasilar streaky opacities are present, likely mild atelectasis. Otherwise, the lungs are clear. No pneumothorax or pleu ral effusion. Stable cardiomediastinal silhouette, which is notable for mild ca rdiomegaly. Normal pulmonary vascular markings. No acute osseous findings. Procedure Note Patricio Ortiz MD - 11/05/2015Formatt ing of this note might be different from the original. EXAMINATION: XR CHEST ROUTINE PA AND LAT ERAL CLINICAL HISTORY: cough, SOB TECHNIQUE: PA and lateral chest radiogra phs, standing. COMPARISON: Chest radiograph 02/03/2015. FINDINGS: Bibasilar streaky opacities are present, likely mild atelectasis. Otherwise, the lungs are clear. No pneumothorax or pleu ral effusion. Stable cardiomediastinal silhouette, which is notable for mild ca rdiomegaly. Normal pulmonary vascular markings. No acute osseous findings. IMPRESSION IMPRESSION: No acute cardiopulmonary process. I have personally reviewed the image(s) and the residents interpretation and agree with the findings, Patricio sher 11/05/2015 4:22 PM Diana Mcnamara MD IMG DX ORDERABLES Rapid Respiratory Virus Antigen Panel Nasopharyngeal Swab (11/05/2015 4:01 PM EDT) Component Value Ref Test Analysis Performed At [facility] Method Time Signature Rapid Virus DFA Negative for Adenovirus Antigen [place] Antigen DFA Negative for Human Metapneumovirus Antigen [facility] DFA Negative for Influenza Virus Type A Antigen [facility] DFA Negative for Influenza Virus Type B Antigen [facility] DFA Negative for Parainfluenza Virus Type 1 Antigen LABORATORY DFA Negative for Parainfluenza Virus Type 2 Antigen DFA Negative for Parainfluenza Virus Type 3 Antigen DFA Negative for Respiratory Syncytial Virus Antigen Specimen (Source) Anatomical Collection Method Collection Time Re ceived Time Location / / Volume Laterality Nasopharyngeal swab 11/05/2015 4:01 11/04 (specimen) PM EDT 4:25 PM EDT Resulting Agency Comment Spec In Lab Diana Mcnamara MD MICROBIOLOGY - GENERAL ORDER RINA Performing Organization Address City/State/ZIP Code Phon e Number [address] Hepatitis A Antibody, Total (11/05/2015 4:00 PM EDT) [facility] Signature Hepatitis A Ab Negative Negative [facility] LABORATORY Specimen Anatomical Collection Method Collection Time Receive d Time (Source) Location / / Volume Laterality Blood specimen Venous Draw / 11/05/2015 4:00 PM 2015 4:56 (specimen) Unknown EDT PM EDT Resulting Agency Comment Spec In Lab Diana Mcnamara MD IMMUNOLOGY ORDERABLES Performing Organization Address City/[facility]/ZIP [facility] Phon e Number [address] Hepatitis C Antibody (11/05/2015 4:00 PM EDT) Analysis Performed At [facility] Hepatitis C Ab Negative Negative [facility] LABORATORY Specimen Anatomical Collection Method Collection Time Receive d Time (Source) Location / / Volume Laterality Blood specimen Venous Draw / 11/05/2015 4:00 PM 2015 4:56 (specimen) Unknown EDT PM EDT Resulting Agency Comment Spec In Lab Diana Mcnamara MD IMMUNOLOGY ORDERABLES Performing Organization Address City/[facility]/ZIP Code Phon e Number [address] Hepatitis B Surface Antigen (11/05/2015 4:00 PM EDT) Analysis Performed At [facility] HepB Surface Negative Negative [facility] LABORATORY Specimen Anatomical Collection Method Collection Time Receive d Time (Source) Location / / Volume Laterality Blood specimen Venous Draw / 11/05/2015 4:00 PM 2015 4:56 (specimen) Unknown EDT PM EDT Resulting Agency Comment Spec In Lab Diana Mcnamara MD CHEMISTRY ORDERABLES Performing Organization Address City/[facility]/[place] [address] Hepatitis B Surface Antibody (11/05/2015 4:00 PM EDT) Analysis Performed At [facility] Signature HepB Surface Negative [facility] LABORATORY Comment: Expected Results: Vaccinated: Positive Unvaccinated: Negative Please note: A positive result for this assay is consistent with a concentration of anti-HBs antibodies >10 mIU/ml, which indicates that anti-HBs antibodies have been detected at levels consistent with protective immunity against HBV infection. Specimen Anatomical Collection Method Collection Time Receive d Time (Source) Location / / Volume Laterality Blood specimen Venous Draw / 11/05/2015 4:00 PM 2015 4:56 (specimen) Unknown EDT PM EDT Resulting Agency Comment Spec In Lab Diana Mcnamara MD IMMUNOLOGY ORDERABLES Performing Organization Address City/[facility]/ZIP Code Phon e Number [address] (ABNORMAL) C4 Complement (11/05/2015 4:00 PM EDT) P athologist Signature C4 Complement 4 (L) 10 - 40 [place] [facility] mg/dL [facility] LABORATORY Specimen Anatomical Collection Method Collection Time Receive d Time (Source) Location / / Volume Laterality Blood specimen Venous Draw / 11/05/2015 4:00 PM 2015 4:56 (specimen) Unknown EDT PM EDT Resulting Agency Comment Spec In Lab Diana Mcnamara MD CHEMISTRY ORDERABLES Performing Organization Address City/[facility]/[place] [address] (ABNORMAL) C3 Complement (11/05/2015 4:00 PM EDT) P athologist Signature C3 Complement 75 (L) 90 - 180 [facility] mg/dL [facility] LABORATORY Specimen Anatomical Collection Method Collection Time Receive d Time (Source) Location / / Volume Laterality Blood specimen Venous Draw / 11/05/2015 4:00 PM 2015 4:56 (specimen) Unknown EDT PM EDT Resulting Agency Comment Spec In Lab Diana Mcnamara MD CHEMISTRY ORDERABLES Performing Organization Address City/[facility] Phon e Number [address] Immunoglobulins, Quantitative (11/05/2015 4:00 PM EDT) P athologist Signature IgG 707 700 - 1,600 [facility] mg/dL [facility] LABORATORY IgA 75 70 - 400 [place] [facility] mg/dL [facility] LABORATORY IgM 187 40 - 230 [facility] mg/dL [facility] LABORATORY Specimen Anatomical Collection Method Collection Time Receive d Time (Source) Location / / Volume Laterality Blood specimen Venous Draw / 11/05/2015 4:00 PM 2015 4:56 (specimen) Unknown EDT PM EDT Resulting Agency Comment Spec In Lab Diana Mcnamara MD CHEMISTRY ORDERABLES Performing Organization Address City/[facility]/ZIP Code Phon e Number [address] Gold Tube HOLD (11/05/2015 4:00 PM EDT) P athologist Signature Gold Hold Sample in [facility] lab. [facility] LABORATORY Specimen Anatomical Collection Method Collection Time Receive d Time (Source) Location / / Volume Laterality Blood specimen Venous Draw / 11/05/2015 4:00 PM 2015 4:25 (specimen) Unknown EDT PM EDT Diana Mcnamara MD CHEMISTRY ORDERABLES Performing Organization Address City/[facility]/ZIP Code Phon e Number [address] (ABNORMAL) Differential, Automated (11/05/2015 4:00 PM EDT) Patholo gist Method Time Signature Neutrophils % 92.4 % [facility] LABORATORY Neutr Abs (ANC) 6.92 (H) 1.50 - [facility] 6.30 [facility] x10(3)/[facility] L LABORATORY Lymphocytes % 3.2 % [facility] LABORATORY Lymphocytes Abs 0.2 (L) 1.0 - 3.6 [facility] x10(3)/[facility] LABORATORY Monocytes % 4.3 % [facility] LABORATORY Monocyte Abs 0.3 0.2 - 1.0 [facility] x10(3)/[facility] LABORATORY Eosinophils % 0.0 % [facility] LABORATORY Eosinophils Abs 0.0 0.0 - 0.5 [facility] x10(3)/[facility] LABORATORY Basophils % 0.0 % [facility] LABORATORY Basophils Abs 0.0 0.0 - 0.2 [facility] x10(3)/[facility] LABORATORY Immature Gran % 0.10 % [facility] LABORATORY Comment: Immature granulocytes(IG's)percentage an d absolute count will include metamyelocytes, myelocytes, and promyelo cytes. Blood smears from CBCs yielding IG's will be scanned manually for concor dance. If this scan disagrees with the automated IG or if promyelocytes are not ed, a manual differential will be performed. Cheryl Gran Abs 0.01 0.00 - 0.05 x10(3)/[facility] LABORATORY Specimen Anatomical Collection Method Collection Time Receive d Time (Source) Location / / Volume Laterality Blood specimen 11/05/2015 4:00 PM 016 4:25 (specimen) EDT PM EDT Resulting Agency Comment Spec In Lab Diana Mcnamara MD HEMATOLOGY ORDERABLES Performing Organization Address City/State/[place] [address] Hemogram (11/05/2015 4:00 PM EDT) P athologist Signature WBC 7.5 4.0 - 10.0 [facility] x10(3)/[facility] LABORATORY RBC 5.06 3.93 - 5.22 [facility] x10(6)/[facility] LABORATORY Hemoglobin 13.7 11.2 - 15.7 [facility] LABORATORY Hematocrit 40.4 34.0 - 45.0 [facility] LABORATORY MCV 79.8 79.0 - 94.0 [facility] LABORATORY MCH 27.1 26.6 - 32.2 [facility] LABORATORY MCHC 33.9 32.0 - 36.5 [facility] gm/dL [facility] LABORATORY Platelets 216 145 - 370 [facility] x10(3)/[facility] LABORATORY RDWSD 40.8 35.0 - 46.0 [facility] RDWCV 14.1 10.9 - 14.4 [facility] LABORATORY MPV 10.0 9.0 - 12.0 [facility] LABORATORY Specimen Anatomical Collection Method Collection Time Receive d Time (Source) Location / / Volume Laterality Blood specimen 11/05/2015 4:00 PM 016 4:25 (specimen) EDT PM EDT Resulting Agency Comment Spec In Lab Diana Mcnamara MD HEMATOLOGY ORDERABLES Performing Organization Address City/[facility] [place] [address] Cardiac Enzymes (11/05/2015 4:00 PM EDT) P athologist Signature Troponin-T <0.03 <=0.03 [facility] ng/mL [facility] LABORATORY Comment: 0.03 ng/mL: Represents the 99th percenti le upper reference limit for normals. >0.03 ng/mL: Elevated cardiac troponin T level indicative of myocardial damage. Diagnosis of acute, evolving or recent M I requires a typical rise and gradual fall of cTnT with at least ONE of the fo llowing: a) Ischemic symptoms b) Development of pathologic Q waves on the ECG c) ECG changes indicative of eschemia (S -T segment elevation/depression) d) Coronary artery intervention Serial bloods should be obtained for derrick ting on admission, at 6 to 9 hrs and again at 12 to 24 hrs if earlier samples are negative and the clinical index of suspicion is high. Reference: [Myocardial infarction redefined? a consensus document of the Joint Society of Cardiology/[place] [employer] o f [employer]iology Committee for the redefinition of myocardial infarction. ? ?Journal of the [place] [employer]iology 2000; 36: 959-969] CK, Total 145 0 - 160 unit/L [facility] LABORATORY Specimen Anatomical Collection Method Collection Time Receive d Time (Source) Location / / Volume Laterality Blood specimen 11/05/2015 4:00 PM 016 4:25 (specimen) EDT PM EDT Resulting Agency Comment Spec In Lab Diana Mcnamara MD CHEMISTRY ORDERABLES Performing Organization Address City/[facility]/[place] [address] APTT (11/05/2015 4:00 PM EDT) P athologist Signature PTT 26 25 - 35 sec [facility] LABORATORY Comment: The recommended therapeutic range for fu ll dose, unfractionated heparin at [facility] is 80 ? 114 seconds. The use of the anti-Xa (heparin) level rather than the PTT is recommended for monitoring anticoagul ation intensity in critically ill patients receiving unfractionated hepari n by continuous IV infusion. Specimen Anatomical Collection Method Collection Time Receive d Time (Source) Location / / Volume Laterality Blood specimen 11/05/2015 4:00 PM 016 4:25 (specimen) EDT PM EDT Resulting Agency Comment Spec In Lab Diana Mcnamara MD HEMATOLOGY ORDERABLES Performing Organization Address City/State/[place] [address] Prothrombin Time (11/05/2015 4:00 PM EDT) athologist Signature PT 12.6 12.0 - 15.0 [facility] LABORATORY Comment: An INR <2.0 indicates adequate procoagul ant activity for hemostasis in most patients without underlying bleeding dis orders, though the INR may not adequately reflect hemostatic capacity i n patients with liver disease and synthetic impairment. The recommended ta rget INR range for therapeutic anticoagulation is 2.0 ? 3.0 for most applications, though lower and higher ranges may be appropriate depending on c linical circumstances. INR 0.9 0.9 - 1.1 [facility] LABORATORY Specimen Anatomical Collection Method Collection Time Receive d Time (Source) Location / / Volume Laterality Blood specimen 11/05/2015 4:00 PM 016 4:25 (specimen) EDT PM EDT Resulting Agency Comment Spec In Lab Diana Mcnamara MD HEMATOLOGY ORDERABLES Performing Organization Address City/State/[place] [address] (ABNORMAL) Basic Metabolic Panel (non-fasting) (11/05/2015 4:00 PM EDT) athologist Signature Glucose Lvl 124 65 - 199 [facility] mg/dL [facility] LABORATORY Comment: Diabetes: >=200 mg/dL plus symp toms BUN 18 8 - 18 mg/dL [facility] LABORATORY Creatinine 0.79 0.70 - 1.20 mg/dL [facility] LABORATORY Comment: Please note that the pediatric reference intervals supplied above were not validated at [facility]. Results from pediatri c patients should be interpreted in conjunction to the patient's age, height and muscle mass. Sodium 136 135 - 145 mmol/L [facility] Potassium 3.1 (L) 3.5 - 5.0 mmol/L [facility] Comment: Please note: ??Patients with WBC >100,00 0 may have falsely elevated Potassium levels. ??For accurate Potassium quantif ication in these patients send serum separator tube (gold top) for subsequent determinations. ??Contact the Clinical Chemistry Laboratory if there are any qu estions. Chloride 95 (L) 98 - 107 mmol/L [facility] CO2 25 22 - 31 mmol/L [facility] Anion Gap 16 (H) 5 - 15 mmol/L [facility] Calcium 7.6 (L) 8.5 - 10.5 mg/dL [facility] Estimated GFR >60 >=60 [facility] Comment: This estimated GFR (eGFR) [...] the following links into your internet browser. [email or web address] Specimen Anatomical Collection Method Collection Time Receive d Time (Source) Location / / Volume Laterality Blood specimen 11/05/2015 4:00 PM 016 4:25 (specimen) EDT PM EDT Resulting Agency Comment Spec In Lab Diana Mcnamara MD CHEMISTRY ORDERABLES Performing Organization Address City/State/[place] [address] EKG 12 Lead (11/05/2015 3:16 PM EDT) Component Value Ref Range Test Analysis Performed Pathologis t Method Time At Signature Ventricular rate 75 BPM MUSE SYSTEM Atrial Rate 75 BPM MUSE SYSTEM P-R Interval 146 ms MUSE SYSTEM QRS Duration 98 ms MUSE SYSTEM Q-T Interval 424 ms MUSE SYSTEM QTC Calculated 473 ms MUSE SYSTEM (Bezet) Calculated P [place] 35 degrees MUSE SYSTEM Calculated R [place] -20 degrees MUSE SYSTEM Calculated T [place] -7 degrees MUSE SYSTEM INTERPRETATION Normal sinus rhythm MUSE SYSTEM Poor R wave progression Possible Left atrial enlargement Inferior infarct (cited on or before 22-JAN-2015) Nonspecific ST and T wave abnormality When compared with ECG of 01-MAY-2015 16:42, No significant change was found Confirmed by MD BARRERA, LATASHA ([id number]) on 11/06/2015 10:29:57 PM Specimen Anatomical Collection Method Collection Time Receive d Time (Source) Location / / Volume Laterality 11/05/2015 3:16 PM 6 EDT 10:29 PM EDT Narrative This result has an attachment that is no t available. Diana Mcnamara MD ECG ORDERABLES Performing Organization Address City/State/ZIP Code Phon e Number MUSE SYSTEM documented in this encounter Visit Diagnoses Diagnosis Chest pain, unspecified chest pain type SOB (shortness of breath) Shortness of breath ILD (interstitial lung disease) Postinflammatory pulmonary fibrosis Chest pain, unspecified Nonspecific abnormal electrocardiogram ( ECG) (EKG) Antiphospholipid syndrome Primary hypercoagulable state Chest pain Chest pain, unspecified Hypoxia Hypoxemia documented in this encounter Admitting Diagnoses Diagnosis Chest pain Chest pain, unspecified Hypoxia Hypoxemia documented in this encounter Administered Medications Inactive Administered Medications - up to 3 most recent administrations Medication Order MAR Action Action Date Dose Rate Site acetaminophen (TYLENOL) tablet 650 Given 11/09/2015 9:13 AM EDT 650 mg mg 650 mg, Oral, EVERY 6 HOURS PRN, Starting on Rena 11/05/15 at 2320, Until 11/09/15 at 1758, Pain, Fever, Maximum dose of acetaminophen is 4000 mg from all sources in 24 hours., Routine Given 11/09/2015 1:30 AM EDT 650 mg Given 11/08/2015 6:02 PM EDT 650 mg aspirin EC tablet 81 mg Given 11/09/2015 8:13 AM EDT 81 mg 81 mg, Oral, DAILY, First dose on Mon11/06/15 at 0900, Until Discontinued, Routine Given 11/08/2015 9:35 AM EDT 81 mg Given 11/07/2015 8:22 AM EDT 81 mg dextrose 5% and sodium chloride New Bag 11/05/2015 11:45 PM ED T 1,000 mLs 100 mL/hr 0.45% infusion 1,000 mL, at 100 mL/hr, Intravenous, CONTINUOUS, Starting on Mon11/06/15 at 0015, Until Mon11/06/15 at 0842 dextrose 5% and sodium chloride New Bag 11/06/2015 8:53 AM EDT 100 mL/hr 100 mL/hr 0.9% with potassium chloride 20 mEq infusion 100 mL/hr, Intravenous, CONTINUOUS, Starting on Mon11/06/15 at 0900, Until Mon11/06/15 at 1558 hydrochlorothiazide (HYDRODIURIL) tablet 25 mg Given 11/09/2015 8:13 AM EDT 25 mg 25 mg, Oral, DAILY, First dose on Mon11/08/15 at 1100, Until Discontinued, Routine Given 11/08/2015 10:52 AM EDT 25 mg hydroxychloroquine (PLAQUENIL) tablet 40 0 mg Given 11/09/2015 8:13 AM EDT 400 mg 400 mg, Oral, DAILY, First dose on Mon11/06/15 at 0900, Until Discontinued, Routine Given 11/08/2015 9:36 AM EDT 400 mg Given 11/07/2015 8:22 AM EDT 400 mg ibuprofen (ADVIL;MOTRIN) tablet 800 mg Given 11/09/2015 1:23 PM EDT 800 mg 800 mg, Oral, EVERY 8 HOURS PRN, Starting on Mon11/05/15 at 2320, Until Mon11/09/15 at 1758, Pain, Administer orally with milk or food to minimize GI irritation, Routine Given 11/09/2015 4:40 AM EDT 800 mg Given 11/08/2015 8:36 PM EDT 800 mg iohexol (OMNIPAQUE) 350 mg/mL solution Given 11/05/2015 8:06 PM EDT 33,250 mg 33,250 mg 33,250 mg (95 mL), Intravenous, ONCE PRN, 1 dose, Starting on Mon11/05/15 at 2004, Until Mon11/05/15 at 2006, Per Protocol, Routine levothyroxine (SYNTHROID) tablet 125 mcg Given 11/08/2015 8:35 PM EDT 125 mcg 125 mcg, Oral, NIGHTLY, First dose on Mon11/05/15 at 2345, Until Discontinued, Routine Given 11/07/2015 8:04 PM EDT 125 mcg Given 11/06/2015 8:05 PM EDT 125 mcg loratadine (CLARITIN) tablet 10 mg Given 11/09/2015 8:13 AM EDT 10 mg 10 mg, Oral, DAILY, First dose on Mon11/06/15 at 0900, Until Discontinued Given 11/08/2015 9:36 AM EDT 10 mg Given 11/07/2015 8:22 AM EDT 10 mg mometasone (ASMANEX) aerosol 1 puff Given 11/09/2015 8:12 AM EDT 1 puff 1 puff (220 mcg), Inhalation, 2 TIMES DAILY, First dose on Rena 11/05/15 at 2345, Until Discontinued, Fluticasone changed per P&T approved therapeutic interchange policy, Routine Given 11/08/2015 8:34 PM EDT 1 puff Given 11/08/2015 9:38 AM EDT 1 puff potassium chloride (K-DUR/KLOR-CON) extended Given 9:42 AM EDT 40 mEq release tablet 40 mEq 40 mEq, Oral, ONCE, 1 dose, On Mon11/06/15 at 0900, 20 mEq tablet may be dissolved in water for administration, Routine potassium chloride (K-DUR/KLOR-CON) extended Given 10:52 AM EDT 40 mEq release tablet 40 mEq 40 mEq, Oral, ONCE, 1 dose, On Mon11/08/15 at 1000, 20 mEq tablet may be dissolved in water for administration, Routine predniSONE (DELTASONE) tablet 5 mg Given 11/07/2015 8:22 AM EDT 5 mg 5 mg, Oral, DAILY, First dose on Mon11/06/15 at 0900, Until Discontinued, Routine Given 11/06/2015 8:44 AM EDT 5 mg predniSONE (DELTASONE) tablet 75 mg Given 11/07/2015 12:09 PM EDT 75 mg 75 mg, Oral, ONCE, 1 dose, On Mon11/07/15 at 1200, Routine predniSONE (DELTASONE) tablet 80 mg Given 11/09/2015 8:13 AM EDT 80 mg 80 mg, Oral, DAILY, First dose on 11/08/15 at 0900, Until Discontinued, Routine Given 11/08/2015 9:36 AM EDT 80 mg simvastatin (ZOCOR) tablet 20 mg Given 11/09/2015 8:13 AM EDT 20 mg 20 mg, Oral, EVERY EVENING, First dose on Rena 11/05/15 at 2345, Until Discontinued, Routine Given 11/08/2015 9:40 AM EDT 20 mg Given 11/07/2015 10:13 AM EDT 20 mg sodium chloride 0.9 % flush 5 mL Given 11/09/2015 8:14 AM EDT 5 mLs 5 mL, Intravenous, 2 TIMES DAILY, First dose on Rena 11/05/15 at 2345, Until Discontinued, Routine Given 11/08/2015 9:33 AM EDT 5 mLs Given 11/07/2015 8:04 PM EDT 5 mLs sulfamethoxazole-trimethoprim (BACTRIM DS) Given 11/08 11:13 AM EDT 1 tablet 800-160 mg per tablet 1 tablet 1 tablet, Oral, THREE TIMES WEEKLY (Mon, , Mon) (Once per day on Mon), First dose on Mon11/09/15 at 1100, Until Discontinued, Routine, Indication for (Active or Suspected): Prophylaxis documented in this encounter Active and Recently Administered Medications Times are shown in EDT. Scheduled Medication Order 11/07/2015 11/08/2015 11/09/2015 aspirin EC tablet 81 mg (CANCELED) 0822 (Given - Provi sylvain: Kirsten Gonzalez RN) 0935 (Given - Provider: Shana Ortez RN) 0813 (Given - Provider: Kirsten Gonzalez RN) 81 mg, Oral, DAILY, First dose on Mon at 0900, Until Discontinued, Routine hydrochlorothiazide (HYDRODIURIL) tablet 25 mg (CANCELED) 1052 (Given - Provider: Shana Ortez RN) 0813 (Given - Provider: Kirsten myers RN) 25 mg, Oral, DAILY, First dose on Sun at 1100, Until Discontinued, Routine hydroxychloroquine (PLAQUENIL) tablet 400 mg (CANCELED ) 0822 (Given - Provider: Kirsten Gonzalez RN) 0936 (Given - Provider: Shana Ortez RN) 0813 (Given - Provider: Kirsten Gonzalez RN) 400 mg, Oral, DAILY, First dose on Mon at 0900, Until Discontinued, Routine levothyroxine (SYNTHROID) tablet 125 mcg (CANCELED) 20 (Given - Provider: Natalya Boyle RN) 2034 (Given - Provider: Ilir Haley RN) 125 mcg, Oral, NIGHTLY, First dose on Th u 11/05/15 at 2345, Until Discontinued, Routine loratadine (CLARITIN) tablet 10 mg (CANCELED) 0822 (Gi riley - Provider: Kirsten Gonzalez RN) 0936 (Given - Provider: Shana Ortez RN) 08 (Given - Provider: Kirsten Gonzalez RN) 10 mg, Oral, DAILY, First dose on Mon11/06/15 at 0900, Until Dis continued mometasone (ASMANEX) aerosol 1 puff (CANCELED) 0900 (N ot Given - Provider: Kirsten Gonzalez RN - Reason: Patient/family refused)2003 (Given - Provider: Natalya Boyle RN) 09 (Given - Provider: Shana aggarwal RN)2033 (Given - Provider: Ilir Haley RN) 08 (Given - Provider: Kirsten Gonzalez RN) 1 puff (220 mcg), Inhalation, 2 TIMES DA MARIN, First dose on Rena 11/05/15 at 2345, Until Discontinued, Fluticasone changed per P&T approved therapeutic interchange policy, Routine potassium chloride (K-DUR/KLOR-CON) extended release tablet 40 mEq (COMPLETED) 1052 (Given - Provider: Shana Ortez RN) 40 mEq, Oral, ONCE, 1 dose, 11/08/15 at 1000, 20 mEq tablet may be dissolved in water for administration, Routine predniSONE (DELTASONE) tablet 5 mg (CANCELED) 08 (Gi riley - Provider: Kirsten Gonzalez RN) 5 mg, Oral, DAILY, First dose on 10/13 at 0900, Until Discontinued, Routine predniSONE (DELTASONE) tablet 75 mg (COMPLETED) 1209 ( Given - Provider: Kirsten Gonzalez RN) 75 mg, Oral, ONCE, 1 dose, 11/07/15 at 1200, Routine predniSONE (DELTASONE) tablet 80 mg (CANCELED) 0936 (Given - Provider: Shana Ortez RN) 0813 (Given - Provider: Kirsten myers RN) 80 mg, Oral, DAILY, First dose on Mon at 0900, Until Discontinued, Routine simvastatin (ZOCOR) tablet 20 mg (CANCELED) 1013 (Give n - Provider: Kirsten Gonzalez RN) 0940 (Given - Provider: Shana aggarwal RN)1700 (Canceled Entry - Provider: Shana Ortez RN - Reason: See comment - Comment: Taken in morning per pt preference/home routine.) 0813 (Given - Provider: Kirsten Gonzalez RN) 20 mg, Oral, EVERY EVENING, First dose o n Rena 11/05/15 at 2345, Until Discontinued, Routine sodium chloride 0.9 % flush 5 mL (CANCELED) 0823 (Give n - Provider: Kirsten Gonzalez RN)2004 (Given - Provider: Natalya Boyle RN) 0933 (Given - Provider: Shana Ortez RN)2100 (Not Given - Provider: Ilir Haley RN - Reason: Order parameters not met - Comment: already flushed) 0814 (Given - Provider: Kirsten Gonzalez RN) 5 mL, Intravenous, 2 TIMES DAILY, First dose on Rena 11/05/15 at 2345, Until Discontinued, Routine sulfamethoxazole-trimethoprim (BACTRIM DS) 800-160 mg per tablet 1 tablet 1113 (Given - Provider: Kirsten Gonzalez RN) 1 tablet, Oral, THREE TIMES WEEKLY (Once per day on Mon), First dose on Mon11/09/15 at 1100, Until Discontinued, Routine PRN Medication Order 11/07/2015 11/08/2015 11/09/2015 acetaminophen (TYLENOL) tablet 650 mg (CANCELED) 2157 (Given - Provider: Natalya Boyle RN) 1019 (Given - Provider: Shana aggarwal RN)1802 (Given - Provider: Saima Rivera RN) 0130 (Given - Provider: Ilir paniagua RN)0913 (Given - Provider: Kirsten Gonzalez RN) 650 mg, Oral, EVERY 6 HOURS PRN, Startin g Rena 11/05/15 at 2320, Until 11/09/15 at 1758, Pain, Fever, Maximum dose of acetaminophen is 4000 mg from all sources in 24 hours., Routine ibuprofen (ADVIL;MOTRIN) tablet 800 mg (CANCELED) 0107 (Given - Provider: Diana Barrett RN)1209 (Given - Provider: Kirsten Gonzalez RN)1958 (Given - Provider: Natalya Boyle RN) 0434 (Given - Provider: Tana Velasquez RN)1238 (Given - Provider: Shana Ortez RN)2036 (Given - Provider: Ilir Haley RN) 0440 (Given - Provider: Ilir paniagua RN)1323 (Given - Provider: Saima Rivera RN) 800 mg, Oral, EVERY 8 HOURS PRN, Startin g Rena 11/05/15 at 2320, Until Mon11/09/15 at 1758, Pain, Administer orally with milk or food to minimize GI irritation, Routine documented in this encounter Care Teams Swamper Relationship Specialty Start Date End Date Kunal Nesbitt MD PCP - General Family Medicine 06/09/15 04/03/16 documented as of this encounter
--- OUTSIDE RECORDS SUMMARY | 2022-05-27 14:53 | XMS_ITS | Encounter Summary ---
:1960 Author Organization [facility] [place] [address] Care Team Providers Name Role Phone Kunal Nesbitt MD Primary Care Provider Reason for Referral Consultation (Routine) - Closed Specialty Diagnoses / Procedures Referred By Contact Refer red To Contact Ophthalmology Diagnoses Sicca syndrome Patricio Lowe MD Miller, Donald M, MD [facility] RHEUMATOLOGY DEPT. [place] [address] [place] [address] Fax: Referral ID Status Reason Start Date Expiration Date Visits V isits Requested Authorized [id number] Closed Consult, 11/23/2015 11/22/2016 1 1 Test & Treat Encounter Details Date Type Department Care Team Description 11/23/2015 Office Visit Rheumatology at [facility] Patricio Lowe MD Lupus; [facility] [place] [address] RHEUMATOLOGY DEP T. [place], [place] [address] (Wo rk) Social History Tobacco [...] Sign Reading Time Taken Comments Blood Pressure 157/78 11/23/2015 8:20 AM EDT Pulse 62 11/23/2015 8:20 AM EDT Temperature 36.5 ??C (97.7 ??F) 11/23/2015 8:20 AM EDT Respiratory Rate - - Oxygen Saturation 99% 11/23/2015 8:20 AM EDT Inhaled Oxygen Concentration - - Weight 93.4 kg (206 lb) 11/23/2015 8:20 AM EDT Height 162.6 cm (5' 4) 11/23/2015 8:20 AM EDT Body Mass Index 35.36 11/23/2015 8:20 AM EDT documented in this encounter Patient Instructions Patient InstructionsPatricio Lowe MD - 11/23/2015 8:53 AM EDT 1. Labs today 2. Reduce prednisone to 60 mg for the rest of the month of November, if doing well, then reduce to 40 mg/d on December 12 3. Start Azathioprine (Imuran) 1 T at bedtime for 2 days, then 2 T a day at bedtime for 2 days, if doing well, increase to 3 T a day thereafter 4. Labs at home 2 weeks after starting Imuran (Azathioprine) 5. Reduce Plaquenil to 200 mg/d 6. Make Opthalmology referral for lacrimal duct plugging 7. Return in 1 month 8. Recommend using bacitracin ointment at bedtime and in am for dry nasal passages 9. Increase walking to 40 minutes or more every day documented in this encounter Progress Notes Patricio Lowe MD - 11/23/2015 8:25 AM EDT Subjective: Patient ID: Francie Yusuf [...] of breath prompting an admission to [facility] where patchy subsegmental opacities were seen in the lung and she was given a course of prednisone 80 mg/d since no obvious infections were noted. She was discharged on 11.12.15. TPMT returned normal. Interval History: She reports that her breathing is much better and back to normal. Back to her baseline, still [id number] mg of prednisone a day. Occasional inhaler use at night. Taking prednisone 1. Left sided chest wall pain: much better with higher doses of prednisone. Need for ibuprofen has lessened. Walking not that much. 2. Insomnia/Weight gain: Intermittently poor. 3. LE [...] and echocardiogram. She was transferred to [facility] s/p IR guided drainage of 70cc of [...] NAD. She has gained weight Blood pressure 157/78, pulse 62, temperature 36.5 ??C (97.7 ??F), temperature source Oral, height 162.6 cm (5' 4), weight 93.441 kg (206 lb), SpO2 99 %. Skin exam: No [...] splinting Cor: RR no rub Abd: normal Back: +SLR now gone Joint exam UE joint exam: normal except for marichuy OA. 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 TPMT normal. Time to start Azathioprine and taper prednisone as tolerated. Sicca needs help with lacrimal duct plugging 1. Labs today 2. Reduce prednisone to 60 mg for the rest of the month of November, if doing well, then reduce to 40 mg/d on December 12 3. Start Azathioprine (Imuran) 1 T at bedtime for 2 days, then 2 T a day at bedtime for 2 days, if doing well, increase to 3 T a day thereafter 4. Labs at home 2 weeks after starting Imuran (Azathioprine) 5. Reduce Plaquenil to 200 mg/d 6. Make Opthalmology referral for lacrimal duct plugging 7. Return in 1 month 8. Recommend using bacitracin ointment at bedtime and in am for dry nasal passages 9. Increase walking to 40 minutes or more every day 10. Stay on Bactrim tiw 11. Discuss bisphosphonates at next visit Level 5 follow up Patricio Lowe M.D. Note to patient sent about labs, which are okay Recent Results (from the past 24 hour(s)) Comprehensive metabolic panel (non-fasting) Result Value Ref Range Glucose Lvl 92 65 - 199 mg/dL BUN 19 (H) 8 - 18 mg/dL Creatinine 0.87 0.70 - 1.20 mg/dL Sodium 140 135 - 145 mmol/L Potassium 3.6 3.5 - 5.0 mmol/L Chloride 97 (L) 98 - 107 mmol/L CO2 28 22 - 31 mmol/L Anion Gap 15 5 - 15 mmol/L Calcium 7.9 (L) 8.5 - 10.5 mg/dL Total Protein 6.4 6.1 - 8.0 gm/dL Albumin 3.9 3.2 - 5.2 gm/dL AST 17 0 - 30 unit/L ALT 22 0 - 30 unit/L Alk Phos 58 40 - 104 unit/L Total Bilirubin 0.3 0.2 - 1.3 mg/dL Bili, Direct 0.1 0.0 - 0.3 mg/dL Estimated GFR >60 >=60 Sedimentation rate Result Value Ref Range Sed Rate 6 0 - 20 mm/hr Hemogram Result Value Ref Range WBC 15.5 (H) 4.0 - 10.0 x10(3)/mcL RBC 5.00 3.93 - 5.22 x10(6)/mcL Hemoglobin 13.8 11.2 - 15.7 gm/dL Hematocrit 40.8 34.0 - 45.0 % MCV 81.6 79.0 - 94.0 fL MCH 27.6 26.6 - 32.2 pg MCHC 33.8 32.0 - 36.5 gm/dL Platelets 314 145 - 370 x10(3)/mcL RDWSD 43.5 35.0 - 46.0 fL RDWCV 14.8 (H) 10.9 - 14.4 % MPV 9.5 9.0 - 12.0 fL Differential, Automated Result Value Ref Range Neutrophils % 86.7 % Neutr Abs (ANC) 13.45 (H) 1.50 - 6.30 x10(3)/mcL Lymphocytes % 8.0 % Lymphocytes Abs 1.2 1.0 - 3.6 x10(3)/mcL Monocytes % 4.2 % Monocyte Abs 0.6 0.2 - 1.0 x10(3)/mcL Eosinophils % 0.1 % Eosinophils Abs 0.0 0.0 - 0.5 x10(3)/mcL Basophils % 0.0 % Basophils Abs 0.0 0.0 - 0.2 x10(3)/mcL Immature Gran % 1.00 % Cheryl Gran Abs 0.15 (H) 0.00 - 0.05 x10(3)/mcL documented in this encounter Miscellaneous Notes Addendum Note - Karina Whiteside - 11/23/2015 9:31 AM EDT Addended by: KARINA WHITESIDE on: 11/23/2015 09:31 AM Modules accepted: Orders documented in this encounter Plan of Treatment Scheduled Referrals Name Type Priority Associated Order Schedule Diagnoses Referral to Outpatient Referral Routine Sicca syndrome Ordere d: Ophthalmology 11/23/2015 documented as of this encounter Procedures Procedure Name Priority Date/Time Associated Comments Diagnosis HEMOGRAM Routine 11/23/2015 9:25 AM Lupus Results for this EDT Sicca syndrome procedure are in the results section. DIFFERENTIAL, Routine 11/23/2015 9:25 AM Lupus Results for this AUTOMATED EDT Sicca syndrome procedure are in the results section. SEDIMENTATION RATE Routine 11/23/2015 9:25 AM Lupus Results for this EDT Sicca syndrome procedure are in the results section. CBC (WITH DIFF) Routine 11/23/2015 9:25 AM Lupus EDT Sicca syndrome COMPREHENSIVE Routine 11/23/2015 9:25 AM Lupus Results for this METABOLIC PANEL EDT Sicca syndrome procedure are in (NON-FASTING) the results section. documented in this encounter Results (ABNORMAL) Differential, Automated (11/23/2015 9:25 AM EDT) [facility] Method Time Signature Neutrophils % 86.7 % [facility] Neutr Abs (ANC) 13.45 (H) 1.50 - [facility] 6.30 [facility] x10(3)/[facility] LABORATORY Lymphocytes % 8.0 % [facility] Lymphocytes Abs 1.2 1.0 - 3.6 [facility] x10(3)/[facility] LABORATORY Monocytes % 4.2 % [facility] Monocyte Abs 0.6 0.2 - 1.0 [facility] x10(3)/[facility] LABORATORY Eosinophils % 0.1 % [facility] Eosinophils Abs 0.0 0.0 - 0.5 [facility] x10(3)/[facility] LABORATORY Basophils % 0.0 % [facility] Basophils Abs 0.0 0.0 - 0.2 [facility] x10(3)/[facility] LABORATORY Immature Gran % 1.00 % [facility] Comment: Immature granulocytes(IG's)percentage an d absolute count will include metamyelocytes, myelocytes, and promyelo cytes. Blood smears from CBCs yielding IG's will be scanned manually for concor dance. If this scan disagrees with the automated IG or if promyelocytes are not ed, a manual differential will be performed. Cheryl Gran Abs 0.15 (H) 0.00 - 0.05 x10(3)/[facility] LABORATORY Specimen Anatomical Collection Method Collection Time Receive d Time (Source) Location / / Volume Laterality Blood specimen 11/23/2015 9:25 AM 016 9:33 (specimen) EDT AM EDT Resulting Agency Comment Spec In Lab Patricio Lowe MD HEMATOLOGY ORDERABLES Performing Organization Address City/State/[place] [address] (ABNORMAL) Hemogram (11/23/2015 9:25 AM EDT) P athologist Signature WBC 15.5 (H) 4.0 - 10.0 [facility] x10(3)/[facility] LABORATORY RBC 5.00 3.93 - [facility] 5.22 [facility] x10(6)/[facility] LABORATORY Hemoglobin 13.8 11.2 - [facility] 15.[facility] gm/dL [facility] Hematocrit 40.8 34.0 - [facility] 45.0 % [facility] MCV 81.6 79.0 - [facility] 94.0 fL [facility] MCH 27.6 26.6 - [facility] 32.2 pg [facility] MCHC 33.8 32.0 - [place] 36.5 gm/dL [facility] Platelets 314 145 - 370 [place] x10(3)/[facility] LABORATORY RDWSD 43.5 35.0 - [place] 46.0 [facility] LABORATORY RDWCV 14.8 (H) 10.9 - [place] 14.4 % [facility] LABORATORY MPV 9.5 9.0 - 12.0 [facility] LABORATORY Specimen Anatomical Collection Method Collection Time Receive d Time (Source) Location / / Volume Laterality Blood specimen 11/23/2015 9:25 AM 016 9:33 (specimen) EDT AM EDT Resulting Agency Comment Spec In Lab Patricio Lowe MD HEMATOLOGY ORDERABLES Performing Organization Address City/[facility]/ZIP Code Phon e Number [address] Sedimentation rate (11/23/2015 9:25 AM EDT) athologist Signature Sed Rate 6 0 - 20 [facility] mm/hr [facility]ORATORY Specimen Anatomical Collection Method Collection Time Receive d Time (Source) Location / / Volume Laterality Blood specimen 11/23/2015 9:25 AM 016 9:33 (specimen) EDT AM EDT Resulting Agency Comment Spec In Lab Patricio Lowe MD HEMATOLOGY ORDERABLES Performing Organization Address City/[facility] [place] [address] (ABNORMAL) Comprehensive metabolic panel (non-fasting) (11/23/2015 9:25 AM EDT) athologist Signature Glucose Lvl 92 65 - 199 [facility] mg/dL [facility] Comment: Diabetes: >=200 mg/dL plus symp toms BUN 19 (H) 8 - 18 mg/dL [facility] Creatinine 0.87 0.70 - 1.20 mg/dL [facility] Comment: Please note that the pediatric reference intervals supplied above were not validated at [facility]. Results from pediatri c patients should be interpreted in conjunction to the patient's age, height and muscle mass. Sodium 140 135 - 145 mmol/L [facility] Potassium 3.6 3.5 - 5.0 mmol/L [facility] Comment: Please note: ??Patients with WBC >100,00 0 may have falsely elevated Potassium levels. ??For accurate Potassium quantif ication in these patients send serum separator tube (gold top) for subsequent determinations. ??Contact the Clinical Chemistry Laboratory if there are any qu estions. Chloride 97 (L) 98 - 107 mmol/L [facility] CO2 28 22 - 31 mmol/L [facility] Anion Gap 15 5 - 15 mmol/L [facility] Calcium 7.9 (L) 8.5 - 10.5 mg/dL [facility] Total Protein 6.4 6.1 - 8.0 gm/dL [facility] Albumin 3.9 3.2 - 5.2 gm/dL [facility] AST 17 0 - 30 unit/L [facility] ALT 22 0 - 30 unit/L [facility] Alk Phos 58 40 - 104 unit/L [facility] Total Bilirubin 0.3 0.2 - 1.3 mg/dL [facility] Bili, Direct 0.1 0.0 - 0.3 mg/dL [facility] Estimated GFR >60 >=60 [facility] [...] the following links into your internet browser. [email or web address] Specimen Anatomical Collection Method Collection Time Receive d Time (Source) Location / / Volume Laterality Blood specimen 11/23/2015 9:25 AM 016 9:33 (specimen) EDT AM EDT Resulting Agency Comment Spec In Lab Patricio Lowe MD CHEMISTRY ORDERABLES Performing Organization Address City/State/[place] [address] documented in this encounter Visit Diagnoses Diagnosis Lupus Systemic lupus erythematosus Sicca syndrome documented in this encounter Care Teams Credit Office Manager Relationship Specialty Start Date End Date Kunal Nesbitt MD PCP - General Family Medicine 06/09/15 04/03/16 documented as of this encounter
--- OUTSIDE RECORDS SUMMARY | 2022-05-27 14:53 | XMS_ITS | Encounter Summary ---
:1960 Author Organization [place] [address] Care Team Providers Name Role Phone Kunal Nesbitt MD Primary Care Provider Reason for Visit Reason Onset Date Comments Medication Refill 11/25/2015 Encounter Details Date Type Department Care Team Description 11/25/2015 Refill Rheumatology at [facility] Kristy Asher, [place] [address] Social History Tobacco Use Types Packs/Day [...] Encounter - Kristy Asher RN - 11/26/2015 8:32 AM EDT Francie returns call and she is willing to try new medication. I have mailed patient education for her to read. Telephone Encounter - Kristy Asher RN - 11/25/2015 2:21 PM EDT I have asked Francie to RTC and ask the legal secretary to put her call through to me as we have been back and forth several times. This is in regards to a medication change. documented in this encounter Plan of Treatment Not on filedocumented as of this encounter Visit Diagnoses Not on filedocumented in this encounter Care Teams Athletic Gear Custodian Relationship Specialty Start Date End Date Kunal Nesbitt MD PCP - General Family Medicine 06/09/15 04/03/16 documented as of this encounter
--- OUTSIDE RECORDS SUMMARY | 2022-05-27 14:53 | XMS_ITS | Encounter Summary ---
:1960 Author Organization [facility] [place] [address] Care Team Providers Name Role Phone Kunal Nesbitt MD Primary Care Provider Reason for Visit Auth/Cert - Closed Specialty Diagnoses / Procedures Referred By Contact Refer red To Contact Diagnoses cutaneous amyloid with lymphoid infiltrate Procedures ([facility] MSURG) BONE MARROW ASP PERFORMED W/BX THRU BX INCISION Referral ID Status Reason Start Date Expiration Date Visits Requ ested Visits Authorized [id number] Closed 1 1 Encounter Details Date Type Department Care Team Description 06/09/2015 Hospital Outpatient Surgery [place], Amyloidos is cutis; Encounter Center Raegan Veloz MD Amyloidosis; [facility] Antiphosp holipid antibody syndrome Hospital CENTER [facility] HEMATOLOGY/ONCOL [facility] [place] [id number] [phone] Social History Tobacco Use Types Packs/Day Years [...] 5pm or on a weekend: Call the [facility] transfer table operator at and ask for the physician product development consultant covering for your doctor. Instructions following sedation [...] drainage occurs, please contact your [address] ??? [place] [address] ??? [phone] ??? [email or web address] [facility] ??? [facility] ??? [facility] ??? .[facility] documented in this encounter Medications at Time [...] (ATROVENT) 0.06 1 03/16/20 15 09/09/2015 % [place], Non-Aerosol hydrochlorothiazide daily. 0 02/03/201504/25 (HYDRODIURIL) 25 [...] as of this encounter H&P Notes Shantelle Richards, EDUARDO - 06/09/2015 11:23 AM EDT Images from [...] procedure. Discharge to: Home Shantelle Richards, MSN, HOTEL SECURITY OFFICER Nurse Practitioner Section of Hematology/Oncology [facility] Office phone: documented in this encounter Procedure Notes Shantelle Richards APRN - 06/09/2015 11:41 AM EDTAssociated Order(s): ([facility]) UNILAT BONE MARROW BIOSPY; ([facility])BONE MARROW ASP PERFORMED W/BX THRU BX INCISION BONE MARROW BIOPSY AND ASPIRATION PROCEDURE NOTE Bone Marrow Biopsy & Aspiration with Conscious Sedation - Unilateral Date/Time of Procedure: 06/09/2015 Proceduralist: Shantelle Richards, RN, MS, FOOD EXPEDITOR DIAGNOSIS: Amyloid Pre-Procedure: (x) Consent signed and [...] procedure are i n the results section. ([facility] MSURG)BONE MARROW Routine 06/09/2015 11:42 R esults for this ASP PERFORMED W/BX THRU AM EDT proc edure are in BX INCISION the results section. ([facility] MSURG) BONE MARROW Routine 06/09/2015 11:42 Results [...] PANEL Routine 06/09/2015 11:40 Amyloidosis c utis ([facility]APD) AM EDT Amyloidosis Antiphospholipid antibody syndrome ([facility] MSURG) BONE MARROW 06/09/2015 11:28 cutaneous misty loid BIOPSY; DIAGNOSTIC ([facility] AM EDT with lymphoid 1.37) infiltrate ([facility] MSURG) BONE MARROW 06/09/2015 11:28 cutaneous misty [...] Component Value Ref Test Analysis Performed At [facility] Range Method Time Signature Cytogenetics Final Report CERNER Acquired Report [employer] ? [id number] Specimen Type: Bone Marrow Specimen Condition: ~3mL, [...] Organization Address City/State/ZIP [place] [address] [facility]BONE MARROW ASP PERFORMED W/BX THRU BX INCISION (06/09/2015 11:42 AM EDT) Narrative Shantelle Richards, HOTEL SECURITY OFFICER - 06/09/2015 11:42 AM EDT Shantelle Richards APRN ? 06/09/2015 11:42 AM BONE MARROW BIOPSY AND ASPIRATION PROCED URE NOTE Bone Marrow Biopsy & Aspiration with Con scious Sedation - Unilateral Date/Time of Procedure: 06/09/2015 Proceduralist: Shantelle Richards, RN, MS, FOOD EXPEDITOR DIAGNOSIS: Amyloid Pre-Procedure: (x) Consent signed and [...] (06/09/2015 11:42 AM EDT) Narrative Shantelle Richards, HOTEL SECURITY OFFICER - 06/09/2015 11:42 AM EDT Shantelle Richards, EDUARDO ? 06/09/2015 11:42 AM BONE MARROW BIOPSY AND ASPIRATION PROCED URE NOTE Bone Marrow Biopsy & Aspiration with Con scious Sedation - Unilateral Date/Time of Procedure: 06/09/2015 Proceduralist: Shantelle Richards, RN, MS, FOOD EXPEDITOR DIAGNOSIS: Amyloid Pre-Procedure: (x) Consent signed and [...] Component Value Ref Test Analysis Performed At [facility] Range Method Time Signature Bone Marrow The signing pathologist has (i) examined the relevant preparation(s) for the [facility] Final Report specimen(s) and (ii) rendered or confirmed the diagnosis (es). [facility] Accession Number: [id number] ? Location: . ?Macho w Cytometry DIAGNOSIS [...] the Clinical Flow Cytometry Laboratory jade sher [facility]. It has not been cleared or approved [...] high complexity clinical laboratory testing. SPECIMEN PROCESSING [facility]-[id number] Cells for immunophenotypic a nalysis were derived [...] gative) A1 ?CD138 ? See above discussion ?[facility] ?[facility] CLINICAL INFORMATION Specimen: ? Bone marrow aspirate and biop sy, right Clinical Diagnosis: ? [facility] light chain [place] amyloidosis Indication for Study: ?? Evaluate for plasma cell neoplasm Specimen (Source) Anatomical Collection Method Collection Time Re ceived Time Location / / Volume Laterality 06/09/2015 11:40 AM EDT Farzaneh Valera MD PATHOLOGY/CYTOLOGY ORDERABLE S Performing Organization Address City/State/ZIP Code Phon e Number [place] [phone] [facility] Immunophenotyping Flow Cytometry (06/09/2015 11:40 AM EDT) Component Value Ref Test Analysis Performed At [facility] gist Range Method Time Signature Immunophenotyping See [place] Flow Comment [facility] Comment: When completed by the Pathologist, the F low Cytometry Report ([id number]) will display under the Pathology Results se ction within [facility]. Specimen Anatomical Collection Method Collection Time Receive d Time (Source) Location / / Volume Laterality Bone marrow 06/09/2015 11:40 06/09/2015 specimen AM EDT 12:33 PM EDT (specimen) Resulting Agency Comment Spec In Lab Farzaneh Valera MD HEMATOLOGY ORDERABLES Performing Organization Address City/[facility]/ZIP [place] [address] CERNER MILLENNIUM Iron Stain, Bone Marrow (06/09/2015 11:40 AM EDT) [facility] Method Time Signature Iron Stain BM See [...] Organization Address City/[facility]/ZIP Code Phon e Number [address] CERNER MILLENNIUM (ABNORMAL) Differential, Manual (06/09/2015 11:00 AM EDT) [facility] Method Time Signature Neutrophil % 90 % [...] Organization Address City/[facility] Code Phon e Number [address] CERNER MILLENNIUM (ABNORMAL) Hemogram [...] Organization Address City/[facility]/ZIP [place] [address] CERNER MILLENNIUM documented in this encounter Visit Diagnoses Diagnosis Amyloidosis cutis Other amyloidosis Amyloidosis Amyloidosis, unspecified Antiphospholipid antibody syndrome Primary hypercoagulable state documented in this encounter Active and Recently Administered Medications Times are shown in EDT. PRN Medication Order 06/07/2015 06/08/2015 06/09/2015 fentaNYL 50 mcg/mL multi-dose injection (CANCELED) 1130 (Given - Provider: Bipin Carbone RN)1135 (Given - Provider: Bipin Carbone RN) 25-50 mcg, Intravenous, EVERY 5 MIN PRN, Starting 06/09/15 at 1045, Until 06/09/15 at 1234, Pain, Hold for respiratory rate less than 8 breaths per minute. (maximum dose 200 mcg), Intra-Operative (Intra-Procedure), Routine midazolam (PF) (VERSED) 1 mg/mL multi-dose injection 0.5-2 mg (C ANCELED) 1130 (Given - Provider: Bipin Carbone RN)1134 (Given - Provider: Bipin Carbone RN) 0.5-2 mg, Intravenous, EVERY 5 MIN PRN, Starting 06/09/15 at 1045, Until 06/09/15 at 1234, Sleep, Anxiety, Hold for delirium/agitation. (Maximum dose 5 mg)., Intra-Operative (Intra-Procedure), Routine documented in this encounter Care Teams Pallet Assembler Relationship Specialty Start Date End Date Kunal Nesbitt MD PCP - General Family Medicine 06/09/15 04/03/16 documented as of this encounter
--- OUTSIDE RECORDS SUMMARY | 2022-05-27 14:53 | XMS_ITS | Encounter Summary ---
:1960 Author Organization [facility] [place] [address] Care Team Providers Name Role Phone Kunal Nesbitt MD Primary Care Provider Encounter Details Date Type Department Care Team Description 11/11/2015 Orders Only Rheumatology at [facility] Osito Del Valle MD Popliteal cyst, [facility] [place] [address] GENERAL INTERNAL [phone] [place], [place] [address] Social History Tobacco Use Types [...] as of this encounter Visit Diagnoses Diagnosis Popliteal cyst, unspecified laterality documented in this encounter Care Teams Quality Control Projectionist Relationship Specialty Start Date End Date Kunal Nesbitt MD PCP - General Family Medicine 06/09/15 04/03/16 documented as of this encounter
--- OUTSIDE RECORDS SUMMARY | 2022-05-27 14:53 | XMS_ITS | Encounter Summary ---
:1960 Author Organization [facility] [place] [address] Care Team Providers Name Role Phone Kunal Nesbitt MD Primary Care Provider Encounter Details Date Type Department Care Team Description 06/17/2015 Notes Only Hematology and Oncology at [facility] Farzaneh urban MD [facility] Marquis kingsley HEMATOLOGY/[place] [address] [place] [address] [phone] (Wo rk) Social History Tobacco Use Types [...] encounter Progress Notes Farzaneh Valera MD - 06/17/2015 1:55 PM EST I called the patient with the results of her bone marrow biopsy. There was no signs of multiple myeloma, plasma cell dyscrasia, or amyloid in the marrow. It was noted that she had no iron stores. I have never checked iron studies on her. Her CBC is essentially stable. Loss of iron stores is the first sign of iron deficiency. Therefore, I strongly recommended that shehave her baseline colonoscopy, which she has never had. I told her I would share this information with her primary care physician, who can order the colonoscopy for her. Return to clinic as previously scheduled with me in March 2016. Most recent CBC: Results for DHEERAJ YUSUF ( ) as of 06/17/2015 13:51 Ref. Range 06/09/2015 11:00 WBC Latest Range: 4.0-10.0 x10(3)/mcL 10.5 (H) RBC Latest Range: 3.93-5.22 x10(6)/mcL 4.99 Hemoglobin Latest Range: 11.2-15.7 gm/dL 13.3 Hematocrit Latest Range: 34.0-45.0 % 39.9 MCV Latest Range: 79.0-94.0 fL 80.0 MCH Latest Range: 26.6-32.2 pg 26.7 MCHC Latest Range: 32.0-36.5 gm/dL 33.3 RDWSD Latest Range: 35.0-46.0 fL 43.1 RDWCV Latest Range: 10.9-14.4 % 14.8 (H) Platelets Latest Range: 145-370 x10(3)/mcL 305 MPV Latest Range: 9.0-12.0 fL 10.0 Neutr Abs (ANC) Latest Range: 1.50-6.30 x10(3)/mcL 9.57 (H) Neutrophil % Latest Units: % 90 Band % Latest Units: % 1 Lymphocyte % Latest Units: % 7 Monocyte % Latest Units: % 1 Eosinophil % Latest Units: % 1 Neutrophil Abs Latest Range: 1.5-6.3 x10(3)/mcL 9.5 (H) Band Abs Latest Range: 0.2-0.6 x10(3)/mcL 0.1 (L) Lymphocyte Abs Latest Range: 1.0-3.6 x10(3)/mcL 0.7 (L) Monocyte Abs Latest Range: 0.2-1.0 x10(3)/mcL 0.1 (L) Eosinophil Abs Latest Range: 0.0-0.5 x10(3)/mcL 0.[address] No range found 100 Plat Estimate No range found Normal RBC Morphology No range found Normal Bone marrow biopsy report: DIAGNOSIS 1. Slight neutrophilia, peripheral blood. 2. Normocellular marrow with maturing trilineage hematopoiesis. 3. No morphologic evidence for marrow involvement by plasma cell neoplasm or amyloidosis. 4. Absent storage iron (see Discussion). documented in this encounter Plan of Treatment Not on filedocumented as of this encounter Visit Diagnoses Not on filedocumented in this encounter Care Teams Hourly Manager Relationship Specialty Start Date End Date Kunal Nesbitt MD PCP - General Family Medicine 06/09/15 04/03/16 documented as of this encounter
--- OUTSIDE RECORDS SUMMARY | 2022-05-27 14:53 | XMS_ITS | Encounter Summary ---
:1960 Author Organization [facility] [place] [address] Care Team Providers Name Role Phone Kunal Nesbitt MD Primary Care Provider Reason for Visit Reason Onset Date Comments Other 11/05/2015 questions Encounter Details Date Type Department Care Team Description 11/05/2015 Telephone Rheumatology at [facility] Lorena Jessica, Other (questions) [facility] [place] [address] Social History Tobacco Use Types Packs/Day [...] Telephone Encounter - Kristy Asher RN - 11/05/2015 2:27 PM EDT I spoke with Francie and she is currently on her way to the ER for Respiratory issues for which she was seen in [facility] ER last night. Francie is able to speak with me without SOB. She states that something is wrong. Reports her breathing as Shallow. Not coughing anything up. Denies any fevers. Francie was given the treatment listed below and was discharged with Prednisone 80 mg QID. She is concerned this is too high of a dose. Francie states she has been having Respiratory problems for the last 8 weeks. I advised her that I would send her message to Dr. Lowe. Telephone Encounter - Lorena Jessica RN - 11/05/2015 11:38 AM EDT Francie called and left message that she was seen in ER at [facility] for sinus and chest congestion and sounding raspy. She says they gave her three different nebulizer treatments and IV steroids. She saysthey have increased her dose of steroids to a very high dose and she wants to make sure Dr. Lowe thinks the dose is ok to take. Called Francie to find out more information, but she was not available. Left message asking her to call back and have nurse paged to discuss further. documented in this encounter Plan of Treatment Not on filedocumented as of this encounter Visit Diagnoses Not on filedocumented in this encounter Care Teams Medical Records Auditor Relationship Specialty Start Date End Date Kunal Nesbitt MD PCP - General Family Medicine 06/09/15 04/03/16 documented as of this encounter
--- OUTSIDE RECORDS SUMMARY | 2022-05-27 14:53 | XMS_ITS | Encounter Summary ---
:1960 Author Organization [facility] [place] [address] Care Team Providers Name Role Phone Kunal Nesbitt MD Primary Care Provider Encounter Details Date Type Department Care Team Description 11/09/2015 Orders Only Pulmonology at [facility] Fracisco García, ILD (interstitial lung [facility]ron MD disease) [place] [address] DR [phone] PULMONARY MEDICI [place], [place] [address] Social History Tobacco Use Types [...] of this encounter Results Pulmonary Function Testing (11/12/2015 12:27 PM EDT) Narrative Ke Huang MD - 11/12/2015 12:27 PM EDT Ke Huang MD ? 11/12/2015 12:27 PM FVC,FEV1 are low. FEV1/FVC within normal limits. Diffusing capacity low. IMPRESSION: Restrictive lung disease. Logan Lemus MD PFT ORDERABLES documented in this encounter Visit Diagnoses Diagnosis Chest pain, unspecified chest pain type SOB (shortness of breath) Shortness of breath ILD (interstitial lung disease) Postinflammatory pulmonary fibrosis Chest pain, unspecified Nonspecific abnormal electrocardiogram ( ECG) (EKG) Antiphospholipid syndrome Primary hypercoagulable state Chest pain Chest pain, unspecified Hypoxia Hypoxemia ILD (interstitial lung disease) Postinflammatory pulmonary fibrosis documented in this encounter Care Teams Class B Truck Driver Relationship Specialty Start Date End Date Kunal Nesbitt MD PCP - General Family Medicine 06/09/15 04/03/16 documented as of this encounter
--- OUTSIDE RECORDS SUMMARY | 2022-05-27 14:53 | XMS_ITS | Encounter Summary ---
:1960 Author Organization [facility] Address [address] [place] [address] Care Team Providers Name Role Phone Kunal Nesbitt MD Primary Care Provider Encounter Details Date Type Department Care Team Description 09/28/2015 Office Visit Rheumatology at [facility] Patricio Lowe, Insomnia, unspecified type; [facility] Lupus; [facility] Sciatica, left; [place] [address] [place] amyloidosis [phone] RHE[address] DEPT. [place], [place] [address] Social History Tobacco Use Types [...] Sign Reading Time Taken Comments Blood Pressure 135/63 09/28/2015 10:44 AM EST Pulse 76 09/28/2015 10:44 AM EST Temperature 36.6 ??C (97.8 ??F) 09/28/2015 10:44 AM EST Respiratory Rate - - Oxygen Saturation 94% 09/28/2015 10:44 AM EST Inhaled Oxygen Concentration - - Weight 94.8 kg (209 lb) 09/28/2015 10:44 AM EST Height 164.5 cm (5' 4.76) 09/28/2015 10:44 AM EST Body Mass Index 35.03 09/28/2015 10:44 AM EST documented in this encounter Patient Instructions Patient InstructionsPatricio Lowe MD - 09/28/2015 11:14 AM EST 1. Gabapentin 800 mg at bedtime for 2-3 days if not sleeping well, increase to 2 T (1600 mg) at bedtime. Call if not sleeping well 2. Agree with PT for back 3. Will ask Dr. Whitney to evaluate skin lesions 4. Return in 3 months 5. Stay on prednisone. documented in this encounter Progress Notes Patricio Lowe MD - 09/28/2015 10:52 AM EST Subjective: Patient ID: Francie Yusuf [...] lung Interval History: When last seen in June she was doing well and had her prednisone to 5 mg/d to avoid flares. 1. Left sided chest wall pain: much better. Definitely better, happens occasionally. Taking ibuprofen 800 mg 2 x a day with benefit. 2. Insomnia/Weight gain: Having trouble falling asleep. Tried on melatonin without much benefit. Never been on trazodone. Does not remember when she has on gabapentin, but she is familiar with it. 3. LE edema seems controlled: Little bit. Under control 4. Breathing is good, sometimes uses inhaler at night 5. Episode of diverticulitis May 2015 with LLQ pain/anemia: colonscopy planned for 6. New issue of pain in left calf: evaluated by X-rays and PT regulated. This started before X-mas. Pain is in calf, hurts at night, with inactivity. Pain is very sharp, not improved by stretches. Not associated with activity, but having left buttock pain with sitting. Has a PMH of a 'lumbar disc' in that was left sided and improved with conservative therapy. 7. 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 She thinks the color is changing. No arthritis or joint symptoms Review of [...] echocardiogram. She was transferred to [facility] s/p IR guided drainage of 70cc of [...] NAD. She has gained weight Blood pressure 135/63, pulse 76, temperature 36.6 ??C (97.8 ??F), temperature source Oral, height 164.5 cm (5' 4.76), weight 94.802 kg (209 lb), SpO2 94 %. Skin exam: No UE bruising . [...] RR no rub Abd: normal Back: +SLR on left 30 degrees, right sided toe paresthesias with SLR Joint exam UE joint exam: normal except for marichuy OA. No active synovitis Extremities: edema trace if at all Neuro: non-focal Assessment and Plan: Generally better 1. Left sided chest wall pain: Resolved with ibuprofen 2. Systemic Lupus Erythematosus: Appears stable to improved, will keep on prednisone 5 mg/d 3. Iron Deficiency/Diverticulitis: Colonoscopy in October 2015 4. Sciatica as probable cause of left calf pain: Conservative management is appropriate 5. Sleep disturbance: trial of gabapentin 800-1600 mg at bedtime 6. Cutaneous amyloid color change: Due to HCQ? Will ask Dr. Whitney to see. 7. Return in 3 months Level 4 follow up Patricio Lowe M.D. documented in this encounter Plan of Treatment Not on filedocumented as of this encounter Visit Diagnoses Diagnosis Insomnia, unspecified type Lupus Systemic lupus erythematosus Sciatica, left Cutaneous amyloidosis Other amyloidosis documented in this encounter Care Teams Cfa Relationship Specialty Start Date End Date Kunal Nesbitt MD PCP - General Family Medicine 06/09/15 04/03/16 documented as of this encounter
--- OUTSIDE RECORDS SUMMARY | 2022-05-27 14:53 | XMS_ITS | Encounter Summary ---
:1960 [place] [address] Care Team Providers Name Role Phone Kunal Nesbitt MD Primary Care Provider Encounter Details Date Type Department Care Team Description 10/13/2015 Hospital Encounter Radiology Library at [facility], Denise Iraheta [facility] [place] [address] PULMONARY MEDICINE [phone] [place], [place] [address] (Wo rk) Social History Tobacco [...] Associated Diagnosis Comme nts FILM LIBRARY Routine 10/13/2015 12:00 AM Pain Results for this STORAGE ONLY DX EST procedure ar e in CHEST the results section. documented in this encounter Results Film Library- Storage only DX Chest (10/13/2015 12:00 AM EST) Specimen (Source) Anatomical Location Collection Method / Collectio n Time Received Time / Laterality Volume Narrative [facility] - 01/05/2016 11:26 AM EDT This exam is for storage only and is aut o-finalizing. Ke Oseguera MD IMG FILM LIBRARY ORDERABLES Performing Organization Address City/State/ZIP Code Phon e Number [facility] [place], [place] documented in this encounter Visit Diagnoses Diagnosis Pain Generalized pain documented in this encounter Care Teams Baker Pie Relationship Specialty Start Date End Date Kunal Nesbitt MD PCP - General Family Medicine 06/09/15 04/03/16 documented as of this encounter
--- OUTSIDE RECORDS SUMMARY | 2022-05-27 14:54 | XMS_ITS | Encounter Summary ---
:1960 [place] [address] Care Team Providers Name Role Phone MorganPariblanco Degroot APRN Primary Care Provider Encounter Details Date Type Department Care Team Description 03/24/2015 Hospital Encounter Radiology Library at [facility], Denise Iraheta [facility] [place] [address] PULMONARY MEDICINE [phone] [place], [place] [address] (Wo rk) Social History Tobacco [...] 20 mg by 0 tablet mouth nightly. hydroxychloroquine 1 03/14/20152014 (PLAQUENIL) 200 mg Tablet ipratropium (ATROVENT) 0.06 1 03/16/20 15 09/09/2015 % [place], Non-Aerosol levofloxacin (LEVAQUIN) 500 0 03/19/20 15 05/01/2015 mg Tablet predniSONE (DELTASONE) 20 mg 0 015 05/01/2015 Tablet hydrochlorothiazide daily. 0 02/03/201504/25 (HYDRODIURIL) 25 mg [...] Associated Diagnosis Comme nts FILM LIBRARY Routine 03/24/2015 12:00 AM Pain Results for this STORAGE ONLY DX EDT procedure ar e in CHEST the results section. documented in this encounter Results Film Library- Storage only DX Chest (03/24/2015 12:00 AM EDT) Specimen (Source) Anatomical Location Collection Method / Collectio n Time Received Time / Laterality Volume Narrative [facility] - 01/05/2016 11:20 AM EDT This exam is for storage only and is aut o-finalizing. MD RANDY Mayer FILM LIBRARY ORDERABLES Performing Organization Address City/State/ZIP Code Phon e Number [place], [place] documented in this encounter Visit Diagnoses Diagnosis Pain Generalized pain documented in this encounter Care Teams Course Instructor Relationship Specialty Start Date End Date Charlene Morgan APRN PCP - General 04/26/13 06/08/15 documented as of this encounter
--- OUTSIDE RECORDS SUMMARY | 2022-05-27 14:54 | XMS_ITS | Encounter Summary ---
:1960 Author Organization [place] [address] Care Team Providers Name Role Phone Eddie Charleneblanco Degroot APRN Primary Care Provider Encounter Details Date Type Department Care Team Description 02/04/2015 Telephone Rheumatology at [facility] [place] [address] Social History Tobacco Use Types Packs/Day [...] this encounter Miscellaneous Notes Telephone Encounter - Ina Espinoza LPN - 02/04/2015 4:05 PM EDT Called and L/M for Francie with message from Dr. Lowe and to RTC if she has questions or when she finds out from the PCP about resuming the HCTZ. Telephone Encounter - Patricio Lowe MD - 02/04/2015 2:39 PM EDT Ms. Yusuf is a bit confused. She told me that her PCP, Charlene Morgan, was telling her to resume ghd HCTZ. She should call Charlene Morgan and check. If that is not the case, let me know. Also tell Francie, I sent her a letter that should arrive by Monday about her labs Patricio Lowe Telephone Encounter - Ina Espinoza LPN - 02/04/2015 1:27 PM EDT Medication corrected as per conversation with Francie. Telephone Encounter - Ina Espinoza LPN - 02/04/2015 1:03 PM EDT Francie calls and said she was seen yesterday and she has questions about her meds on her list that she's not taking and some she is taking but confused on some. Called and spoke with Francie and she said her medications are not correct she is currently taking Prilosec 20 mg a day and not 40, Levothyroxine is 125 mcg a day not 112. She has been put on Cetirizinean HCI 10 mg a day per her PCP. Francie is also concerned because she is looking at her list of meds and noticed the HCTZ was D/C and she isn't sure why since she spoke to Dr. Lowe yesterday about the edema in her lower legs and on the plan it states to take the HCTZ. Message will be forwarded to Dr. Lowe. documented in this encounter Plan of Treatment Not on filedocumented as of this encounter Visit Diagnoses Not on filedocumented in this encounter Care Teams Overweaver Relationship Specialty Start Date End Date Charlene Morgan APRN PCP - General 04/26/13 06/08/15 documented as of this encounter
--- OUTSIDE RECORDS SUMMARY | 2022-05-27 14:54 | XMS_ITS | Encounter Summary ---
:1960 Author Organization [place] [address] Care Team Providers Name Role Phone Charlene Morgan EDUARDO Primary Care Provider Encounter Details Date Type Department Care Team Description 02/10/2015 Telephone [place]umatology at [facility] Patricio Lowe MD [facility] [place] [address] RHEUMATOLOGY DEPT. [phone] [place], [place] [address] (Wo rk) Social History Tobacco [...] Telephone Encounter - Patricio Lowe MD - 02/10/2015 9:28 AM EDT I checked in with Ms. 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 Fatigue: Sleeping better with improved control of chest wall pain with tramadol 3. Breathing/Leg edema/HTN: Breathing stable. Unable to break HCTZ 25 mg tablets into 12.5 mg as suggested by Dr. Morgan. Has been trying 25 mg every other day. Little or no change in edema. Recommended trying HCTZ 25 mg daily 4. Will initiate loading dose with Plaquenil 800 mg/d for 3-4 weeks with plan to lower dose to 400 mg/d Patricio Lowe documented in this encounter Plan of Treatment Not on filedocumented as of this encounter Visit Diagnoses Not on filedocumented in this encounter Care Teams Senior Staff Psychologist Relationship Specialty Start Date End Date Charlene Morgan APRN PCP - General 04/26/13 06/08/15 documented as of this encounter
--- OUTSIDE RECORDS SUMMARY | 2022-05-27 14:54 | XMS_ITS | Encounter Summary ---
:1960 Author Organization [facility] [place] [address] Care Team Providers Name Role Phone Morgan, Charleneblanco Degroot APRN Primary Care Provider Encounter Details Date Type Department Care Team Description 02/23/2015 Telephone Rheumatology at [facility] [place] [address] Social History Tobacco Use Types Packs/Day [...] Telephone Encounter - Ina Espinoza LPN - 02/23/2015 3:25 PM EDT Called and L/M for Francie on machine for Francie with the information below from Dr. Lowe. Telephone Encounter - Patricio Lowe MD - 02/23/2015 3:18 PM EDT She should stay on the Prednisone until I see her in follow up. Her echocardiogram was very good.. Patricio Lowe Telephone Encounter - Ina Espinoza LPN - 02/23/2015 11:57 AM EDT Francie calls wanting to know if she is to continue with the Prednisone 20 mg and or dose she need tostop it? She currently has 4 tabs left and if she is to continue or taper she needs a refill. Greciaeis also wondering if Dr. Lowe Received the results of her Echo Cardiogram or if he even new she hadthis on 02/12/15? Looking back in the note from 01/2015 states to continue the Prednisone 20 mg. Script will be sent toDr. Lowe. documented in this encounter Plan of Treatment Not on filedocumented as of this encounter Visit Diagnoses Not on filedocumented in this encounter Care Teams Manufacturing Engineer Chief Relationship Specialty Start Date End Date Charlene Morgan APRN PCP - General 04/26/13 06/08/15 documented as of this encounter
--- OUTSIDE RECORDS SUMMARY | 2022-05-27 14:54 | XMS_ITS | Encounter Summary ---
:1960 Author Organization [facility] [place] [address] Care Team Providers Name Role Phone Charlene Morgan APRN Primary Care Provider Encounter Details Date Type Department Care Team Description 05/01/2015 Orders Only Radiology [facility] Charlene Preston, [facility] [address] [place], [place] [id number] [place] [address] [phone] Social History Tobacco Use Types Packs/Day Years [...] on filedocumented in this encounter Care Teams Hoister Relationship Specialty Start Date End Date Charlene Morgan APRN PCP - General 04/26/13 06/08/15 documented as of this encounter
--- OUTSIDE RECORDS SUMMARY | 2022-05-27 14:54 | XMS_ITS | Encounter Summary ---
:1960 Author Organization [place] [address] Care Team Providers Name Role Phone Charlene Morgan APRN Primary Care Provider Encounter Details Date Type Department Care Team Description 05/21/2015 Telephone Rheumatology at [facility] Kristy Asher, [place] [address] Social History Tobacco Use Types Packs/Day [...] Telephone Encounter - Kristy Asher RN - 05/21/2015 12:07 PM EDT Francie calls today to discuss medication changes by her PCP and to find out about an appointment scheduled with Farzaneh Hardy. I returned her call and asked her to call back. documented in this encounter Plan of Treatment Not on filedocumented as of this encounter Visit Diagnoses Not on filedocumented in this encounter Care Teams Senior Sales Compensation Analyst Relationship Specialty Start Date End Date Charlene Morgan APRN PCP - General 04/26/13 06/08/15 documented as of this encounter
--- OUTSIDE RECORDS SUMMARY | 2022-05-27 14:54 | XMS_ITS | Encounter Summary ---
:1960 [place] [address] Care Team Providers Name Role Phone MorganPariblanco Degroot APRN Primary Care Provider Encounter Details Date Type Department Care Team Description 06/07/2015 Hospital Encounter Radiology Library at [facility], Denise Iraheta [facility] [place] [address] PULMONARY MEDICINE [phone] [place], [place] [address] (Wo rk) Social History Tobacco [...] tablet mouth nightly. predniSONE (DELTASONE) 5 mg Take 4 tablets by 120 tablet 11 0 05/11/2015 06/09/2015 TabletIndications: mouth daily. Use Pericarditis in systemic as instructed, lupus erythematosus, Lupus taper as anticoagulant positive instructed ibuprofen (ADVIL;MOTRIN) Take 1 tablet by 30 tablet 12 05/0302/04/2016 800 mg Tablet mouth every 8 hours as needed for Pain. predniSONE (DELTASONE) 10 Take 2 tablets by 28 tablet 2 07/06/2015 mg Tablet mouth daily for 1 week followed by 1 tablet by mouth hydroxychloroquine Take 1 tablet by 60 tablet 3 04/07/2015 10/08/2015 (PLAQUENIL) 200 mg Tablet mouth 2 times daily. ipratropium (ATROVENT) 0.06 1 03/16/20 15 09/09/2015 % [place], Non-Aerosol hydrochlorothiazide daily. 0 02/03/201504/25 (HYDRODIURIL) 25 mg Tablet levothyroxine (SYNTHROID) Take 125 mcg by 0 11/05/2015 112 mcg Tablet mouth daily. Levalbuterol Tartrate 45 Inhale 1-2 puffs 0 09/09/2015 mcg/actuation HFA Aerosol into the lungs Inhaler every 4 hours as needed for Wheezing. acetaminophen (TYLENOL Take by mouth as 0 011 02/22/2017 EXTRA STRENGTH) 500 mg needed. Reported tablet on 09/19/2016 documented as of this encounter Plan of Treatment Not on filedocumented as of this encounter Procedures Procedure Name Priority Date/Time Associated Diagnosis Comme nts FILM LIBRARY Routine 06/07/2015 12:00 AM Pain Results for this STORAGE ONLY DX EDT procedure ar e in ABDOMEN the results section. documented in this encounter Results Film Library- Storage only DX Abdomen (06/07/2015 12:00 AM EDT) Specimen (Source) Anatomical Location Collection Method / Collectio n Time Received Time / Laterality Volume Narrative [facility] - 01/05/2016 11:22 AM EDT This exam is for storage only and is aut o-finalizing. Ke Oseguera MD IMG FILM LIBRARY ORDERABLES Performing Organization Address City/State/ZIP Code Phon e Number [place], [place] documented in this encounter Visit Diagnoses Diagnosis Pain Generalized pain documented in this encounter Care Teams Metal Tank Erector Relationship Specialty Start Date End Date Charlene Morgan APRN PCP - General 04/26/13 06/08/15 documented as of this encounter
--- OUTSIDE RECORDS SUMMARY | 2022-05-27 14:54 | XMS_ITS | Encounter Summary ---
:1960 Author Organization [facility] Address [address] [place] [address] Care Team Providers Name Role Phone Eddie Charleneblanco Degroot APRN Primary Care Provider Encounter Details Date Type Department Care Team Description 02/03/2015 Hospital Encounter XRay at [place] Pericarditis in systemic lup us erythematosus; 1 [facility] SLE (systemic lupus erythema tosus); [place], [place] Anti-phospholip id antibody syndrome; [id number] Hypocomplementemia; [phone] Hemopericardium Social History Tobacco Use Types Packs/Day Years [...] Sig Dispensed Refills Start Date End Date aspirin 81 mg Tablet, Take 1 tablet by 0 01/29/20 15 Delayed Release (E.C.) mouth daily. albuterol (PROVENTIL Inhale 2 puffs 0 HFA;VENTOLIN HFA;PROAIR) 90 into the lungs mcg/actuation HFA Aerosol every 4 hours as Inhaler needed for Wheezing. Use with spacer simvastatin (ZOCOR) 20 mg Take 20 mg by 0 tablet mouth nightly. hydrochlorothiazide daily. 0 02/03/201504/25 (HYDRODIURIL) 25 mg Tablet hydroxychloroquine 2 T twice daily 180 tablet 3 02/04/2015 0 02/04/2015 (PLAQUENIL) 200 mg for 4 weeks, then TabletIndications: SLE reduce to 1 T (systemic lupus twice daily erythematosus), thereafter Anti-phospholipid antibody syndrome predniSONE (DELTASONE) 20 Take 1 tablet by 30 tablet 0 01/1202/23/2015 mg Tablet mouth daily. levothyroxine (SYNTHROID) Take 125 mcg by 0 [...] Priority Date/Time Associated Diagnosis Comme nts XR CHEST PA AND Routine 02/03/2015 4:05 PM Pericarditis in Res ults for this LATERAL EDT systemic lupus procedure are in erythematosus the results SLE (systemic lupus section. erythematosus) Anti-phospholipid antibody syndrom e Hypocomplementem ia Hemopericardium documented in this encounter Results XR chest routine PA & lateral (02/03/2015 4:05 PM EDT) Anatomical Region Laterality Modality Chest N/A Radiographic Imaging Specimen (Source) Anatomical Collection Method Collection Time Re ceived Time Location / / Volume Laterality 02/03/2015 4:05 PM EDT Impressions 02/03/2015 5:12 PM EDT IMPRESSION: Trace residual left-sided pl eural fluid. Narrative 02/03/2015 5:12 PM EDT EXAMINATION: CHEST ROUTINE 2 VIEWS CLINICAL HISTORY: history of hemopericar dium and bloody pleural effusion with persistent left sided pain, follow up fi lm TECHNIQUE: PA and lateral views of the c hest. ? COMPARISON: 01/28/2015. FINDINGS: Trace residual pleural fluid a t the left base. Right-sided pleural fluid resolved. Minimal residual linear atelectasis versus scarring at the bases. Otherwise, lungs appear symmetric ally expanded and clear. Cardiac silhouette within normal limits. Unchang ed pulmonary vessel markings. No interval osseous findings. Procedure Note Lucy Tesfaye MD - 02/03/2015Formatt ing of this note might be different from the original. EXAMINATION: CHEST ROUTINE 2 VIEWS CLINICAL HISTORY: history of hemopericar dium and bloody pleural effusion with persistent left sided pain, follow up fi lm TECHNIQUE: PA and lateral views of the c hest. COMPARISON: 01/28/2015. FINDINGS: Trace residual pleural fluid a t the left base. Right-sided pleural fluid resolved. Minimal residual linear atelectasis versus scarring at the bases. Otherwise, lungs appear symmetric ally expanded and clear. Cardiac silhouette within normal limits. Unchang ed pulmonary vessel markings. No interval osseous findings. IMPRESSION IMPRESSION: Trace residual left-sided pl eural fluid. Patricio Lowe MD IMG DX ORDERABLES documented in this encounter Visit Diagnoses Diagnosis Pericarditis in systemic lupus erythemat osus Systemic lupus erythematosus SLE (systemic lupus erythematosus) Systemic lupus erythematosus Anti-phospholipid antibody syndrome Primary hypercoagulable state Hypocomplementemia Other specified disorders involving the immune mechanism Hemopericardium documented in this encounter Care Teams Sound Printer Relationship Specialty Start Date End Date Charlene Morgan APRN PCP - General 04/26/13 06/08/15 documented as of this encounter
--- OUTSIDE RECORDS SUMMARY | 2022-05-27 14:54 | XMS_ITS | Encounter Summary ---
:1960 Author Organization [facility] [place] [address] Care Team Providers Name Role Phone Morgan, Charleneblanco Degroot APRN Primary Care Provider Encounter Details Date Type Department Care Team Description 03/10/2015 Follow-Up Rheumatology at [facility] Patricio Lowe, SLE (systemic lupus erythema tosus); [facility] Marquis kingsley MD Essential hypertension; [place] [address] [facility] Bilateral edema of lower ext remity [phone] RHEUMATOLOGY DEP [place], [place] [address] Social History Tobacco Use Types [...] Sign Reading Time Taken Comments Blood Pressure 136/76 03/10/2015 4:24 PM EDT Pulse 81 03/10/2015 4:24 PM EDT Temperature 36.7 ??C (98 ??F) 03/10/2015 4:24 PM EDT Respiratory Rate - - Oxygen Saturation 97% 03/10/2015 4:24 PM EDT Inhaled Oxygen Concentration - - Weight 88.9 kg (196 lb) 03/10/2015 4:24 PM EDT Height 163.8 cm (5' 4.5) 03/10/2015 4:24 PM EDT Body Mass Index 33.12 03/10/2015 4:24 PM EDT documented in this encounter Patient Instructions Patient InstructionsPatricio Lowe MD - 03/10/2015 4:59 PM EDT 1. Labs today including C4, C3, CMP, CBC 2. Increase baby aspirin to 2 T daily 3. Taper prednisone to 15 mg/d for 2 weeks, then 10 mg/d for 2 weeks, then 5 mg/d thereafter 4. F/U with Dr. Lowe 6-8 weeks 5. Call if new problems develop 6. Reduce Plaquenil to 400 mg once a day documented in this encounter Progress Notes Patricio Lowe MD - 03/10/2015 4:42 PM EDT Subjective: Patient ID: Francie Yusuf [...] 10 years in terms of HANSEN, paresthesias. No recurrence, no problems. Interval History: 1. LE edema: better with HCTZ 25 mg/d 2. Left sided chest wall pain: better with less need for tramadol 3. Insomnia: lessened with prednisone 20 mg/d 4. Energy: Good, much improved 5. Breathing is good, sometimes uses inhaler at night Review of Systems Constitutional: No fevers, chills, malaise much improved! Skin: no rashes no Raynauds HEENT: ++ sicca sx, change in hearing, taste sinus pain, HANSEN, change in taste. Respiratory: ++ chest pain, no shortness of breath CV: [...] CXR and echocardiogram. She was transferred to [facility] s/p IR guided drainage of 70cc of [...] symptoms. Other Medical Problems 1. Cutaneous Amyloid: stable 2. Venous stasis disease Review of Systems Constitutional: No fevers, chills, malaise. Skin: no rashes no Raynauds HEENT: ++ sicca sx, change in hearing, taste sinus pain, HANSEN, change in taste. Respiratory: ++ chest pain, no shortness of breath CV: no NOBLE, angina sx, claudication Back: No sciatica, pain with standing GI: no abd pain, normal bowel movements : no dysuria, normal voiding, no nocturia Neuro: no focal deficit. Objective: Physical Exam Healthy appearing woman looking stated age in NAD. Blood pressure 136/76, pulse 81, temperature 36.7 ??C (98 ??F), temperature source Oral, height 163.8 cm (5' 4.5), weight 88.905 kg (196 lb), SpO2 97 %. Skin exam: Some UE bruising and atraumatic hematoma on left extensor surface of humerus. No telangectasias. Brownish elevated plaques on LE, largest is 3 cm across, most are <0.5 cm. Normal nailfoldexam. No digital ulcers, cuticular overgrowth. There no longer issingificant lower extremity swelling. HEENT: moist mucus membranes, +salivary pooling. Mild submandibular tenderness, no parotid enlargement. Neck supple JVD<5 cm. no bruits. Chest: decreased breath sounds left base unchanged Cor: RR no rub Abd: no longer LLQ tenderness otherwise normal Joint exam UE joint exam: normal except for marichuy OA. No active synovitis Extremities: No longer has 2+ edema to mid calves, merely trace if at all Neuro: non-focal Recent Results (from the past 24 hour(s)) Sedimentation rate Result Value Ref Range Sed Rate 8 0 - 20 mm/hr Comprehensive metabolic panel (non-fasting) Result Value Ref Range Glucose Lvl 111 65 - 199 mg/dL BUN 15 8 - 18 mg/dL Creatinine 0.77 0.70 - 1.20 mg/dL Sodium 142 135 - 145 mmol/L Potassium 4.0 3.5 - 5.0 mmol/L Chloride 98 98 - 107 mmol/L CO2 26 22 - 31 mmol/L Anion Gap 18 (H) 5 - 15 mmol/L Calcium 8.4 (L) 8.5 - 10.5 mg/dL Total Protein 7.1 6.1 - 8.0 gm/dL Albumin 4.4 3.2 - 5.2 gm/dL AST 21 0 - 30 unit/L ALT 22 0 - 30 unit/L Alk Phos 69 40 - 104 unit/L Total Bilirubin 0.3 0.2 - 1.3 mg/dL Bili, Direct 0.1 0.0 - 0.3 mg/dL Estimated GFR >60 >=60 C3 Complement Result Value Ref Range C3 Complement 98 90 - 180 mg/dL C4 Complement Result Value Ref Range C4 Complement 4 (L) 10 - 40 mg/dL Hemogram Result Value Ref Range WBC 12.0 (H) 4.0 - 10.0 x10(3)/mcL RBC 4.98 3.93 - 5.22 x10(6)/mcL Hemoglobin 13.7 11.2 - 15.7 gm/dL Hematocrit 40.5 34.0 - 45.0 % MCV 81.3 79.0 - 94.0 fL MCH 27.5 26.6 - 32.2 pg MCHC 33.8 32.0 - 36.5 gm/dL Platelets 352 145 - 370 x10(3)/mcL RDWSD 40.3 35.0 - 46.0 fL RDWCV 13.6 10.9 - 14.4 % MPV 9.6 9.0 - 12.0 fL Differential, Automated Result Value Ref Range Neutrophils % 85.3 % Neutr Abs (ANC) 10.23 (H) 1.50 - 6.30 x10(3)/mcL Lymphocytes % 10.3 % Lymphocytes Abs 1.2 1.0 - 3.6 x10(3)/mcL Monocytes % 3.8 % Monocyte Abs 0.4 0.2 - 1.0 x10(3)/mcL Eosinophils % 0.1 % Eosinophils Abs 0.0 0.0 - 0.5 x10(3)/mcL Basophils % 0.2 % Basophils Abs 0.0 0.0 - 0.2 x10(3)/mcL Immature Gran % 0.30 % Cheryl Gran Abs 0.04 0.00 - 0.05 x10(3)/mcL Assessment and Plan: Lots of issues, both acute symptomatic and chronic management in character, but overall, considerable improvement 1. LE edema: better with HCTZ 25 mg/d. Potassium + renal function stable 2. Left sided chest wall pain: better with less need for tramadol: No change in physical exam. Will taper prednisone with plan to get down to 5 mg/d in April now that loaded with HCQ 3. Insomnia: lessened with prednisone 20 mg/d, should improve with steroid tapering 4. Energy: Good, much improved 5. Breathing is good, sometimes uses inhaler at night: This seems unrelated to pleural effusion and appears relatively long standing 6. Systemic Lupus Erythematosus: She almost certainly still has consumption of complement as denotedby low C4. However, treating a complement level e.g. A lab test is not indicated. 7. Antiphospholipid Antibody Syndrome: I have articulated the considerable ambiguity of the situation in my previous note. I have reviewed the situation with Ms. Yusuf. Understandably she is less interested in resuming coumadin therapy without signs of any recurrence of the symptoms that provoked this t herapy. 8. Purpura: Probably a combination of prednisone and ASA therapy. Plan 1. Labs today including C4, C3, CMP, CBC 2. Increase baby aspirin to 2 T daily 3. Taper prednisone to 15 mg/d for 2 weeks, then 10 mg/d for 2 weeks, then 5 mg/d thereafter 4. F/U with Dr. Lowe 6-8 weeks 5. Call if new problems develop 6. Reduce Plaquenil to 400 mg once a day 7. Plan to get CXR and genotype for C4 copy number variation in my lab 8. Return in 2 months with plan to gradually extend intervals to every 3-4 months if doing well Level 5 follow up Patricio Lowe M.D. documented in this encounter Plan of Treatment Not on filedocumented as of this encounter Procedures Procedure Name Priority Date/Time Associated Diagnosis Comme nts HEMOGRAM Routine 03/10/2015 5:23 SLE (systemic lupus Resul ts for this PM EDT erythematosus) procedure are in the results section. DIFFERENTIAL, Routine 03/10/2015 5:23 SLE (systemic lupus Resu lts for this AUTOMATED PM EDT erythematosus) procedure are in the results section. SEDIMENTATION RATE Routine 03/10/2015 5:23 SLE (systemic lupus Results for this PM EDT erythematosus) procedure are in the results section. CBC (WITH DIFF) Routine 03/10/2015 5:23 SLE (systemic lupus PM EDT erythematosus) C3 COMPLEMENT Routine 03/10/2015 5:23 SLE (systemic lupus Resu lts for this PM EDT erythematosus) procedure are in the results section. C4 COMPLEMENT Routine 03/10/2015 5:23 SLE (systemic lupus Resu lts for this PM EDT erythematosus) procedure are in the results section. COMPREHENSIVE Routine 03/10/2015 5:23 SLE (systemic lupus Resu lts for this METABOLIC PANEL PM EDT erythematosus) procedure are in (NON-FASTING) Essential the results hypertension section. documented in this encounter Results (ABNORMAL) Differential, Automated (03/10/2015 5:23 PM EDT) [facility] Method Time Signature Neutrophils % 85.3 % CERNER MILLENNIUM Neutr Abs (ANC) 10.23 (H) 1.50 - CERNER 6.30 MILLENNIUM x10(3)/mc L Lymphocytes % 10.3 % CERNER MILLENNIUM Lymphocytes Abs 1.2 1.0 - 3.6 CERNER x10(3)/mc MILLENNIUM L Monocytes % 3.8 % CERNER MILLENNIUM Monocyte Abs 0.4 0.2 - 1.0 CERNER x10(3)/mc MILLENNIUM L Eosinophils % 0.1 % CERNER MILLENNIUM Eosinophils Abs 0.0 0.0 - 0.5 CERNER x10(3)/mc MILLENNIUM L Basophils % 0.2 % CERNER MILLENNIUM Basophils Abs 0.0 0.0 - 0.2 CERNER x10(3)/mc MILLENNIUM L Immature Gran % 0.30 % CERNER MILLENNIUM Comment: Immature granulocytes(IG's)percentage an d absolute count will include metamyelocytes, myelocytes, and promyelo cytes. Blood smears from CBCs yielding IG's will be scanned manually for concor dance. If this scan disagrees with the automated IG or if promyelocytes are not ed, a manual differential will be performed. Cheryl Gran Abs 0.04 0.00 - 0.05 x10(3)/mcL CER NER MILLENNIUM Specimen Anatomical Collection Method Collection Time Receive d Time (Source) Location / / Volume Laterality Blood specimen 03/10/2015 5:23 PM 015 5:54 (specimen) EDT PM EDT Resulting Agency Comment Spec In Lab Patricio Lowe MD HEMATOLOGY ORDERABLES Performing Organization Address City/[facility]/ZIP [place] [address] CERNER MILLENNIUM (ABNORMAL) Hemogram (03/10/2015 5:23 PM EDT) P athologist Signature WBC 12.0 (H) 4.0 - 10.0 CERNER x10(3)/mcL MILLENNIUM RBC 4.98 3.93 - CERNER 5.22 MILLENNIUM x10(6)/mcL Hemoglobin 13.7 11.2 - CERNER 15.7 gm/dL MILLENNIUM Hematocrit 40.5 34.0 - CERNER 45.0 % MILLENNIUM MCV 81.3 79.0 - CERNER 94.0 fL MILLENNIUM MCH 27.5 26.6 - CERNER 32.2 pg MILLENNIUM MCHC 33.8 32.0 - CERNER 36.5 gm/dL MILLENNIUM Platelets 352 145 - 370 CERNER x10(3)/mcL MILLENNIUM RDWSD 40.3 35.0 - CERNER 46.0 fL MILLENNIUM RDWCV 13.6 10.9 - CERNER 14.4 % MILLENNIUM MPV 9.6 9.0 - 12.0 CERNER fL MILLENNIUM Specimen Anatomical Collection Method Collection Time Receive d Time (Source) Location / / Volume Laterality Blood specimen 03/10/2015 5:23 PM 015 5:54 (specimen) EDT PM EDT Resulting Agency Comment Spec In Lab Patricio Lowe MD HEMATOLOGY ORDERABLES Performing Organization Address City/[facility]/ZIP [place] [address] CERNER MILLENNIUM (ABNORMAL) C4 Complement (03/10/2015 5:23 PM EDT) P athologist Signature C4 Complement 4 (L) 10 - 40 CERNER mg/dL MILLENNIUM Specimen Anatomical Collection Method Collection Time Receive d Time (Source) Location / / Volume Laterality Blood specimen 03/10/2015 5:23 PM 015 5:54 (specimen) EDT PM EDT Resulting Agency Comment Spec In Lab Patricio Lowe MD CHEMISTRY ORDERABLES Performing Organization Address City/[facility]/ZIP Code Phon e Number [place] [address] CERNER MILLENNIUM C3 Complement (03/10/2015 5:23 PM EDT) athologist Signature C3 Complement 98 90 - 180 CERNER mg/dL MILLENNIUM Specimen Anatomical Collection Method Collection Time Receive d Time (Source) Location / / Volume Laterality Blood specimen 03/10/2015 5:23 PM 015 5:54 (specimen) EDT PM EDT Resulting Agency Comment Spec In Lab Patricio Lowe MD CHEMISTRY ORDERABLES Performing Organization Address City/[facility] Phon e Number [place] [address] CERNER MILLENNIUM (ABNORMAL) Comprehensive metabolic panel (non-fasting) (03/10/2015 5:23 PM EDT) athologist Signature Glucose Lvl 111 65 - 199 CERNER mg/dL MILLENNIUM Comment: Diabetes: >=200 mg/dL plus symp toms BUN 15 8 - 18 mg/dL CERNER MILLENNIUM Creatinine 0.77 0.70 - 1.20 mg/dL CERNER MILL ENNIUM Comment: Please note that the pediatric reference intervals supplied above were not validated at [facility]. Results from pediatri c patients should be interpreted in conjunction to the patient's age, height and muscle mass. Sodium 142 135 - 145 mmol/L CERNER JARETH NIUM Potassium 4.0 3.5 - 5.0 mmol/L CERNER JARETH NIUM Comment: Please note: ??Patients with WBC >100,00 0 may have falsely elevated Potassium levels. ??For accurate Potassium quantif ication in these patients send serum separator tube (gold top) for subsequent determinations. ??Contact the Clinical Chemistry Laboratory if there are any qu estions. Chloride 98 98 - 107 mmol/L CERNER MILLENN IUM CO2 26 22 - 31 mmol/L CERNER MILLENNI UM Anion Gap 18 (H) 5 - 15 mmol/L CERNER MILLENNIU M Calcium 8.4 (L) 8.5 - 10.5 mg/dL CERNER JARETH NIUM Total Protein 7.1 6.1 - 8.0 gm/dL BECKIE MIL LENNIUM Albumin 4.4 3.2 - 5.2 gm/dL CERNER MILLENN IUM AST 21 0 - 30 unit/L CERNER MILLENNIU M ALT 22 0 - 30 unit/L CERNER MILLENNIU M Alk Phos 69 40 - 104 unit/L CERNER MILLENN IUM Total Bilirubin 0.3 0.2 - 1.3 mg/dL BECKIE M ILLENNIUM Bili, Direct 0.1 0.0 - 0.3 mg/dL NANDONER MILL ENNIUM Estimated GFR >60 >=60 NANDONER SUSYENNIU M Comment: This estimated GFR (eGFR) value was [...] the following links into your internet browser. [email or web address] Specimen Anatomical Collection Method Collection Time Receive d Time (Source) Location / / Volume Laterality Blood specimen 03/10/2015 5:23 PM 015 5:54 (specimen) EDT PM EDT Resulting Agency Comment Spec In Lab Patricio Lowe MD CHEMISTRY ORDERABLES Performing Organization Address City/[facility]/[place] [address] CERNER MILLENNIUM Sedimentation rate (03/10/2015 5:23 PM EDT) P athologist Signature Sed Rate 8 0 - 20 CERNER mm/hr MILLENNIUM Specimen Anatomical Collection Method Collection Time Receive d Time (Source) Location / / Volume Laterality Blood specimen 03/10/2015 5:23 PM 015 5:54 (specimen) EDT PM EDT Resulting Agency Comment Spec In Lab Patricio Lowe MD HEMATOLOGY ORDERABLES Performing Organization Address City/[facility] Code Phon [place] [address] [facility] documented in this encounter Visit Diagnoses Diagnosis SLE (systemic lupus erythematosus) Systemic lupus erythematosus Essential hypertension Unspecified essential hypertension Bilateral edema of lower extremity Edema documented in this encounter Care Teams Inspector And Clerk Relationship Specialty Start Date End Date Charlene Morgan APRN PCP - General 04/26/13 06/08/15 documented as of this encounter
--- OUTSIDE RECORDS SUMMARY | 2022-05-27 14:54 | XMS_ITS | Encounter Summary ---
:1960 Author Organization [facility] [place] [address] Care Team Providers Name Role Phone Charlene Morgan APRN Primary Care Provider Reason for Visit Reason Onset Date Comments Medication Refill 02/23/2015 Encounter Details Date Type Department Care Team Description 02/23/2015 Refill Rheumatology at [facility] Patricio Lowe MD [facility] [place] [address] RHEUMATOLOGY DEPT. [phone] [place], [place] [address] (Wo rk) Social History Tobacco [...] on filedocumented in this encounter Care Teams Health Program Analyst Relationship Specialty Start Date End Date Charlene Morgan APRN PCP - General 04/26/13 06/08/15 documented as of this encounter
--- OUTSIDE RECORDS SUMMARY | 2022-05-27 14:54 | XMS_ITS | Encounter Summary ---
:1960 Author Organization [facility] [place] [address] Care Team Providers Name Role Phone Charlene Morgan APRN Primary Care Provider Encounter Details Date Type Department Care Team Description 02/05/2015 Telephone Rheumatology at [facility] [place] [address] Social History Tobacco Use Types Packs/Day [...] Telephone Encounter - Ina Espinoza LPN - 02/09/2015 12:53 PM EDT Francie calls looking for clarification on her Plaquenil. Called and spoke with Francie and clarified the Plaquenil script for her she is to take 2 tabs in themorning and afternoon for four weeks and 1 tab BID there after. Francie verbalized understanding. Telephone Encounter - Patricio Lowe MD - 02/05/2015 8:29 PM EDT A detailed letter was mailed on February 04, 2015. I will try to call her Patricio Lowe Telephone Encounter - Ina Espinoza LPN - 02/05/2015 11:32 AM EDT Francie calls looking for her blood work and x-ray results. documented in this encounter Plan of Treatment Not on filedocumented as of this encounter Visit Diagnoses Not on filedocumented in this encounter Care Teams Assembler Dc Field Yoke Relationship Specialty Start Date End Date Charlene Morgan APRN PCP - General 04/26/13 06/08/15 documented as of this encounter
--- OUTSIDE RECORDS SUMMARY | 2022-05-27 14:54 | XMS_ITS | Encounter Summary ---
:1960 Author Organization [facility] Address [facility] [place] [address] Care Team Providers Name Role Phone Gonzales Chingblanco Degroot APRN Primary Care Provider Reason for Visit Reason Comments Follow-up Encounter Details Date Type Department Care Team Description 04/06/2015 Office Visit Hematology and Kelsey Whitney MD Neoplasm of unspecified nature of bone, soft tissue, and skin; Oncology at [facility] Primary localized cutaneous amyloidosis [facility] [address] [place], [place] RD-DERMATOLOGY [id number] [place] [address] [phone] Social History Tobacco Use Types Packs/Day Years [...] Sign Reading Time Taken Comments Blood Pressure 137/74 04/06/2015 2:16 PM EDT Pulse 80 04/06/2015 2:16 PM EDT Temperature 37 ??C (98.6 ??F) 04/06/2015 2:16 PM EDT Respiratory Rate 18 04/06/2015 2:16 PM EDT Oxygen Saturation 97% 04/06/2015 2:16 PM EDT Inhaled Oxygen Concentration - - Weight - - Height - - Body Mass Index - - documented in this encounter Progress Notes Kelsey Whitney MD - 04/06/2015 2:11 PM EDT Interdisciplinary Cutaneous Lymphoma Clinic [facility] FOLLOW-UP PATIENT ENCOUNTER - 04/06/2015 Deheraj Yusuf : 1960 Staff Provider: Kelsey Whitney MD Resident provider: Zander Gr MD I am seeing this patient today in the interdisciplinary lymphoma clinic along with Dr. Farzaneh Maynard PAST SKIN HISTORY: Nodular amyloid -rx 5mg/cc kenalog injection [place] 01/2011 Itchy rash in setting of antiphospholipid syndrome & nodular amyloidosis, hypocomplementemia -multiple topical steroids -antihistamine not helpful -resolved spontaneously Antiphospholipid antibody syndrome Diagnosis: nodular anyloid CC: Follow up INTERIM HPI: .Dheeraj Yusuf is a 55 y.o. year old here for follow up. INTERIM MEDICAL HISTORY: In January patient was hospitalized [place] [facility] [place] effusion and pericardial effusion, s/p pericardiocentesis. She has stopped taking coumadin for her anti-phospholipid antibody syndrome and is taking aspirin instead. About 10 days prior to visit, one of the lesions on her legs developed a blood blister, which bled this morning. Patient denies trauma to area. She was evaluated by PCP and started on keflex at that time. Other lesions on her legs unchanged. She has noticedincreased bruising since being on prednisone and aspirin. She is currently on prednisone taper (10 mg daily, with plan to decrease to 5 mg this week). She has been on prednisone since January 2015. Immunoglobulin screening with no M-spike as of January 2015. 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 Itch is about a 0/10. Level of skin discomfort: none No other skin concerns: none MEDS: Current Outpatient Prescriptions on File Prior to Visit Medication Sig Dispense Refill ??? hydrochlorothiazide (HYDRODIURIL) 25 mg Tablet daily. 0 ??? cetirizine (ZYRTEC) 10 mg Tablet Take 10 mg by mouth daily. ??? aspirin 81 mg Tablet, Delayed Release (E.C.) Take 1 tablet by mouth daily. ??? levothyroxine (SYNTHROID) 112 mcg Tablet Take 125 mcg by mouth daily. ??? albuterol (PROVENTIL HFA;VENTOLIN HFA;PROAIR) 90 mcg/actuation HFA Aerosol Inhaler Inhale 2 puffs into the lungs every 4 hours as needed for Wheezing. Use with spacer ??? Levalbuterol Tartrate 45 mcg/actuation HFA Aerosol Inhaler Inhale 1-2 puffs into the lungs every4 hours as needed for Wheezing. ??? simvastatin (ZOCOR) 20 mg tablet Take 20 mg by mouth nightly. ??? acetaminophen (TYLENOL EXTRA STRENGTH) 500 mg tablet Take by mouth as needed. Take 1-2 tabs of the (500mg) Tablets No current facility-administered medications on file prior to visit. ALLERGIES: No Known Allergies PHYSICAL EXAM GENERAL: Appears well and is in no acute distress. Alert and oriented. SKIN: A total body skin exam except for the genitalia was performed. This includes examination of the skin of the face, ears, neck, chest, axillae, left and right upper and lower extremities, hands, feet, abdomen, back, and buttocks. The genitalia, perineum, and perianal areas were not examined. 1. Right lateral distal leg with ~2.5 cm hemorrhagic bulla with underlying nodule 2. Bilateral legs with few (5-8) discrete pink to quezada nodules with surrounding hyperpigmentation, ranging in size from 1-2.5 cm LYMPH: No abnormal lymphadenopathy. No cervical, axillary or inguinal adenopathy LABORATORY STUDIES REVIEWED: Last wbc, hgb, hct plt Recent Labs 04/06/15 1108 WBC 10.6* HGB 13.8 HCT 40.6 Last 3 Lytes Recent Labs 04/06/15 1108 03/10/15 1723 02/03/15 1553 NA 141 142 143 K 3.9 4.0 4.5 CL 99 98 101 CO2 29 26 28 BUN 14 15 10 CREATININE 0.88 0.77 0.76 Results for DHEERAJ YUSUF ( ) as of 04/06/2015 16:52 Ref. Range 04/06/2015 11:08 Total Prot Elec Latest Range: 6.1-8.0 gm/dL 6.2 Albumin Elect Latest Range: 3.60-6.00 gm/dL 4.10 Alpha1-Globulin Latest Range: 0.10-0.30 gm/dL 0.20 Alpha2-Globulin Latest Range: 0.40-0.90 gm/dL 0.79 Beta Globulin Latest Range: 0.50-1.00 gm/dL 0.60 Gamma Globulin Latest Range: 0.50-1.30 gm/dL 0.51 M1 Band Latest Range: None Detected gm/dL None Detected Scan No range found See Note IgG Latest Range: 700-1600 mg/dL 628 (L) IgA Latest Range: 70-400 mg/dL 62 (L) IgM Latest Range: 40-230 mg/dL 150 ASSESSMENT/PLAN: 1. Cutaneous nodular amyloidosis No evidence of systemic amyloidosis at present. Patient is currently on no therapy for the skin lesions. The bullous lesion most likely represents a propensity for bleeding as patient is on aspirin andprednisone. - Continue to monitor; no treatment at this time - Fat pad biopsy performed today to evaluate for systemic amyloidosis - If hemorrhagic bulla becomes more symptomatic, patient may get some relief from lancing the lesion. History of nodular amyloidosis- fat pad biopsy to rule out systemic involvement. (Reports of bulloushemorrhagic lesions associated with development of systemic amyloidosis) Procedure: Skin biopsy by punch technique. Location: left abdomen Discussed indications for the procedure and expectations including risks and benefits. Verbal consent obtained. Skin prep with alcohol. Local anesthesia: buffered 1% lidocaine with 1/100,000 epinephrine. A 5 mm punch biopsy to the level of the subcutis was performed. Wound closed with monofilament suture. There were no complications; the patient tolerated the procedure well. The wound was dressed. Post-procedure expectations (including discomfort management), wound care and activity restrictions were reviewed. Follow-up based on pathology results. Suture removal: 10-12 days 2. Follow up : 1 year; sooner if needed. I am documenting this encounter acting as the scribe for and in the presence of Dr. Whitney: WILLIAM JONES LPN I saw and evaluated this patient with Dr. Gr and I agree with them as documented--he assisted me in scribing the note today. I performed the above scribed service and agree with the accuracy of the documentation in this encounter. Kelsey Whitney MD Section of Dermatology [facility] CC: CHING GONZALES APRN (General) None (Regular Care Provider) documented in this encounter Plan of Treatment Not on filedocumented as of this encounter Procedures Procedure Name Priority Date/Time Associated Diagnosis Comme nts SPECIMEN TO Routine 04/06/2015 3:19 PM Neoplasm of Results f or this PATHOLOGY (NON-OR) EDT unspecified nature pro cedure are in of bone, soft the results tissue, and skin section. documented in this encounter Results Specimen to Pathology (NON-OR) (04/06/2015 3:19 PM EDT) Specimen Anatomical Collection Method Collection Time Receive d Time (Source) Location / / Volume Laterality AP Specimen 04/06/2015 3:19 PM 5 3:19 EDT PM EDT Narrative [facility] - 04/06/2015 3:19 PM E DT Specimen requisition ordered. ??Separate Pathology report to follow Kelsey Whitney MD PATHOLOGY/CYTOLOGY ORDERABLE S Performing Organization Address City/State/[place] [address] [facility] documented in this encounter Visit Diagnoses Diagnosis Neoplasm of unspecified nature of bone, soft tissue, and skin Primary localized cutaneous amyloidosis Other amyloidosis documented in this encounter Care Teams Street Supervisor Relationship Specialty Start Date End Date Ching Goznales APRN PCP - General 04/26/13 06/08/15 documented as of this encounter
--- OUTSIDE RECORDS SUMMARY | 2022-05-27 14:54 | XMS_ITS | Encounter Summary ---
:1960 Author Organization [facility] [place] [address] Care Team Providers Name Role Phone Charlene Gonzales EDUARDO Primary Care Provider Reason for Visit Reason Comments Shortness of Breath Encounter Details Date Type Department Care Team Description 05/01/2015 - Hospital Intermediate Alla Melendrez MD [facility] [place] [address] Pericardial effusion; 05/03/2015 Encounter Cardiac Care Unit Josue Bee MD [facility] [place] [address] Pericarditis; [facility] [place] [address] Social History Tobacco Use Types Packs/Day Years [...] Sign Reading Time Taken Comments Blood Pressure 136/77 05/03/2015 11:35 AM EDT Pulse 76 05/03/2015 11:35 AM EDT Temperature 36.5 ??C (97.7 ??F) 05/03/2015 11:35 AM EDT Respiratory Rate 18 05/03/2015 11:35 AM EDT Oxygen Saturation 95% 05/03/2015 11:35 AM EDT Inhaled Oxygen Concentration - - Weight 90.9 kg (200 lb 6.4 oz) 05/03/2015 5:54 AM EDT Height 167.6 cm (5' 6) 05/01/2015 9:30 PM EDT Body Mass Index 32.35 05/01/2015 9:30 PM EDT documented in this encounter Discharge Summaries Mary Navarro MD - 05/03/2015 9:11 PM EDT Discharge Summary Patient Name: Dheeraj Yusuf Patient Age: 55 y.o. Language: Finnish Race: White Ethnicity: Not nor Admit date: 05/01/2015 Discharge date and time: 05/03/2015 Attending Physician: No att. providers found Discharge Physician: Mary Navarro MD Follow-up Recommendations for Providers: - Patient was discharged on prednisone 20mg daily for 1 week followed by a taper to 10mg QD. Please further taper base on her symptoms. Inpatient Provider Contact Information: For questions regarding this document or issues relating to this hospitalization on the Medical Service, please contact your inpatient physician through the [facility] . Issues after hours and on weekends will be handled by the Hospitalist staff on-call. Discharge Diagnoses (Hospital Problems) and Secondary Diagnoses (Chronic Problems): There are no hospital problems to display for this patient. Active Non-Hospital Problems Diagnosis ??? S/P complete thyroidectomy ??? Amyloidosis cutis ??? Amyloidosis ??? Thyroid nodule ??? Lumbar disc herniation with radiculopathy ??? Asthma ??? Sinusitis, chronic ??? Edema of both legs ??? Miscarriage Operations/Major Procedures: Operations: Other Major Procedures: None History of Presentation: Dheeraj Yusuf is a 55 y.o. female with past medical history significant for HTN, HLD, cutaneous amyloidosis, asthma, hypothyroidism, anti-phospholipid syndrome, probable SLE and recent hospitalization for pericardial tamponade from hemopericardium in the setting of a supra-therapeutic INR requiring per icardiocentesis who presents with complaints of chest pain. She states that a couple of days ago shedeveloped chest pain that was worse with lying flat and improved with sitting up and standing. The chest pain is described as sharp and worse with deep breaths. States that it localized to the center of her chest with no radiation. She states that it is similar in nature to the chest pain she had previously when admitted for pericardiocentesis in January. She states that she presented to her PCP's office who was concerned for PE,obtained a D-dimer which was elevated and then scheduled the patient for aCT PE protocol. Her CT revealed no PE however did reveal a pericardial effusion and she was instructed to present to [facility] thereafter. In the ED, she complains of the chest pain with lying down flat however is comfortably sitting up in the chair. She denies shortness of breath, lightheadedness or dizziness. No recent illnesses, no fevers or chills. Patient states that she has been in her normal state of health lately.She has felt well since her pericardiocentesis with no reoccurrence of the chest pain. She states that she has followed up with rheumatology since and had been doing well. She was recently weaned off of prednisone, which she had been on since her hospitalization in January. She took her last doses over this past weekend (04/25- 04/26). She also has bumped her dose of aspirin 81 mg daily to BID per recommendations from rheumatology. She no longer takes coumadin and has not since her hospitalization in January. Hospital Course: # Pericarditis Ms. Yusuf was admitted to the cardiology floor where a TTE revealed a a trace pericardial effusoion with no evidence of tamponade. HEr prednisone was started at 20mg QD and she was given colchicine. Herpan improved greatly and was controlled with tylenol PO. She was discharged on 05/03 with close follow up. # Leg Pain Ms. Yusuf noted a 1 week hx of left leg pain. Given her antiphospholipid syndrome, concer was high for a DVT. Ultrasond could not be completed in house and was thus deferred to an outpatient workup. Anticoagulation was not given empirically given her hx of hemopericardium w/ tamponade. Vital Signs at Discharge: BP: 136/77 mmHg, Heart Rate: 76, Temp: 36.5 ??C (97.7 ??F), Resp: 18, BMI (Calculated): 32.4 Height: 167.6 cm (5' 6) (05/01/150) Weight - Scale: 90.9 kg (200 lb 6.4 oz) (05/03/15 0554) Functional and Cognitive Status: Stable, at baseline Important Studies and Lab Data: Labs: Last 3 wbc, hgb, hct plt Recent Labs 05/03/15 0555 05/02/15 0357 05/01/152146 WBC 5.9 9.9 7.5 HGB 12.6 13.6 13.3 HCT 38.7 40.0 39.5 PLATELET 290 336 360 Last 3 Lytes Recent Labs 05/03/15 0555 05/02/15 0357 05/01/15 1640 NA 143 141 139 K 3.7 4.0 3.1* CL 102 98 95* CO2 27 27 29 BUN 12 11 9 CREATININE 0.73 0.75 0.77 Last Ca, Mg, Phos Recent Labs 05/03/15 0555 CALCIUM 7.5* Last 3 ProBNP, Trop, CK Recent Labs 05/01/15 2147 05/01/15 1640 CK 83 -- TROPONINT <0.03 <0.03 PROBNP -- 65 Studies: TTE, 05/02: SUMMARY: 1. There is a trivial pericardial effusion. There is no evidence of tamponade or constrictive physiology. 2. The left ventricular chamber size is normal. Left ventricular wall thickness is normal. There are no left ventricular segmental wall motion abnormalities. There is normal global left ventricular systolic function. The visually estimated left ventricular ejection fraction is 65%. 3. Right ventricular chamber size, wall thickness, and systolic function are within normal limits. 4. There is no hemodynamically significant valve disease. 5. See remainder of report for additional findings. Pending Studies and Lab Data: none Discharge Conditions/Prognosis: good Discharge to: home Updated Allergies/ADRs: No Known Allergies Immunizations Given this Hospitalization: Immunization History Administered Date(s) Administered ??? Influenza Vaccine w/Preservative, Split 05/13/2013, 05/14/2014 Discharge Medications: Your Medications New Medications Dose Details ibuprofen 800 mg Tab Commonly known as: ADVIL;MOTRIN Take 1 tablet by mouth every 8 hours as needed for Pain. 800 mg Quantity: 30 tablet Refills: 12 Continued medications with new dosing Dose Details aspirin 81 mg Tbec Take 1 tablet by mouth daily. What changed: when to take this 81 mg Refills: 0 predniSONE 10 mg Tab Commonly known as: DELTASONE Take 2 tablets by mouth daily for 1 week followed by 1 tablet by mouth What changed: - medication strength - additional instructions Quantity: 28 tablet Refills: 2 Continued medications, unchanged Dose Details albuterol 90 mcg/actuation Hfaa Commonly known as: PROVENTIL HFA;VENTOLIN HFA;PROAIR Inhale 2 puffs into the lungs every 4 hours as needed for Wheezing. Use with spacer 2 puff Refills: 0 cetirizine 10 mg Tab Commonly known as: ZyrTEC Take 10 mg by mouth daily. 10 mg Refills: 0 hydrochlorothiazide 25 mg Tab Commonly known as: HYDRODIURIL daily. Refills: 0 hydroxychloroquine 200 mg Tab Commonly known as: PLAQUENIL Take 1 tablet by mouth 2 times daily. 200 mg Quantity: 60 tablet Refills: 3 ipratropium 0.06 % [place] Commonly known as: ATROVENT Refills: 1 levalbuterol 45 mcg/actuation Hfaa Commonly known as: XOPENEX HFA Inhale 1-2 puffs into the lungs every 4 hours as needed for Wheezing. 1-2 puff Refills: 0 levothyroxine 112 mcg Tab Commonly known as: SYNTHROID Take 125 mcg by mouth daily. 125 mcg Refills: 0 simvastatin 20 mg Tab Commonly known as: ZOCOR Take 20 mg by mouth nightly. 20 mg Refills: 0 TYLENOL EXTRA STRENGTH 500 mg Tab Take by mouth as needed. Take 1-2 tabs of the (500mg) Tablets Generic drug: acetaminophen Refills: 0 STOPPED Medications cephalexin 500 mg Cap Commonly known as: KEFLEX levofloxacin 500 mg Tab Commonly known as: LEVAQUIN Smoking Status at Discharge: History Smoking status ??? Former Smoker -- 1.50 packs/day ??? Types: Cigarettes ??? Quit date: 08/14/1992 Smokeless tobacco ??? Never Used Instructions Given to Patient at Discharge: Patient Instructions Patient Instructions on Discharge to Home Why you were hospitalized - Chest Pain due to Pericarditis Call your doctor or seek medical attention if you develop the following - chest pain, shortness of breath, feeling dizzy upon standing, passing out, diarrhea, constipation lasting longer than 2 days, fevers (temperature over 100.3), chills, abdominal pain, vomiting, difficulty or discomfort when urinating, bloody or black bowel movements, or any other acute or concerning symptom. Activity level - No restrictions, but take it easy for the next few days Diet - No restrictions, but eat healthy Driving - No restrictions Home Oxygen Therapy - N/A Other Important Instructions Medication Changes: Prednisone 20mg daily for 1 week followed by 10mg daily. We will schedule follow-up with Rheumatology to help guide a further taper down for you. For pain, you may take tylenol 1000mg up to 4 times daily as needed or ibuprofen 800mg three times daily. Follow-up Appointments No future appointments. We will schedule appointments for you on Monday and will call you with the date and time. Your Inpatient Medical Team at [facility] Name(s) of your inpatient provider(s): Dr. Josue Mendez For questions regarding issues relating to your hospitalization on the Hospital Medicine Service, please contact your inpatient physician through the [facility] [phone]. Issues after hours and on weekends will be handled by the Hospitalist staff on-call. Your Primary Care Provider CHARLENE GONZALES, CORPORATE TREASURER (General) [phone] General Instructions None Future Appointments and Orders Future Orders Complete By Expires Duplex Study for DVT, Bilat legs [VAS40 Custom] 05/04/2015 (Approximate) 05/03/2016 Process Instructions: Scheduling Instructions: Questions: Indication for study/signs & symptoms: LLE pain x1 week in a woman with anti- phospholipid syndrome Question to be answered: Presence or abscence of DVT Should this service/procedure be billed to the research sponsor?: Which location will this be performed?: External Discharge References/Attachments None documented in this encounter Discharge Instructions Patient InstructionsMary Navarro MD - 05/03/2015 11:27 AM EDT Patient Instructions on Discharge to Home Why you were hospitalized - Chest Pain due to Pericarditis Call your doctor or seek medical attention if you develop the following - chest pain, shortness of breath, feeling dizzy upon standing, passing out, diarrhea, constipation lasting longer than 2 days, fevers (temperature over 100.3), chills, abdominal pain, vomiting, difficulty or discomfort when urinating, bloody or black bowel movements, or any other acute or concerning symptom. Activity level - No restrictions, but take it easy for the next few days Diet - No restrictions, but eat healthy Driving - No restrictions Home Oxygen Therapy - N/A Other Important Instructions Medication Changes: Prednisone 20mg daily for 1 week followed by 10mg daily. We will schedule follow-up with Rheumatology to help guide a further taper down for you. For pain, you may take tylenol 1000mg up to 4 times daily as needed or ibuprofen 800mg three times daily. Follow-up Appointments No future appointments. We will schedule appointments for you on Monday and will call you with the date and time. Your Inpatient Medical Team at [facility] Name(s) of your inpatient provider(s): Dr. Josue Mendez For questions regarding issues relating to your hospitalization on the Hospital Medicine Service, please contact your inpatient physician through the [facility] [phone]. Issues after hours and on weekends will be handled by the Hospitalist staff on-call. Your Primary Care Provider CHARLENE GONZALES, CORPORATE TREASURER (General) [phone] documented in this encounter Medications at Time [...] 20 mg by 0 tablet mouth nightly. ibuprofen (ADVIL;MOTRIN) 800 Take 1 tablet by [...] (ATROVENT) 0.06 1 03/16/20 15 09/09/2015 % [place], Non-Aerosol hydrochlorothiazide daily. 0 02/03/201504/25 (HYDRODIURIL) 25 [...] documented as of this encounter Progress Notes Josue Bee MD - 05/03/2015 9:11 PM EDT Cardiology Day of Discharge Note The patient was seen and examined on rounds. Vital signs were stable, a thorough physical exam was conducted, and the patients most recent lab values were reviewed. Last value Range last 24 hrs Temperature Temp: 36.5 ??C (97.7 ??F) Temp: [36.4 ??C (97.5 ??F)-36.7 ??C (98.1 ??F)] Heart Rate Heart Rate: 76 Heart Rate: [65-76] Blood Pressure BP: 136/77 mmHg BP: (129-136)/(66-77) Respiratory Rate Resp: 18 Resp: [18] SpO2 SpO2: 95 % SpO2: [95 %-97 %] GEN: alert woman in NAD, comfortable HEENT: AT/NC, PERRL, EOMI, anicteric. MMM. Neck is supple, without LAD, or thyroidmegaly. CV: Normal rate, regular rhythm. Normal S1/S2, without M/R/G. No JVD. Radial and DP pulses 2+ bilaterally. PULM: Lungs clear to auscultation and percussion bilaterally. No increased WOB. ABD: Soft, nontender, nondistended, no masses. Normo-active bowel sounds. No hepatosplenomegaly. EXT: WWP without edema, cyanosis, or clubbing. SKIN: Warm and dry without rashes or lesions. NEURO: A & O x3. CN II-XII intact and symmetric. No other focal deficits appreciated. Assessment/Plan: Medications were reviewed, and a discharge plan was finalized. IV access was removed, and the patient was provided with educational material prior to discharge. The patient was discharged in stable condition. Please see the discharge summary (05/03/2015) for a comprehensive assessment and plan. STAFF ADDENDUM Patient interviewed and examined. Medical record reviewed. I agree with the Intercurrent History Past Medical History Physical Exam Objective Data Assessment and Plan as detailed by Dr. Navarro, with whom the patient was interviewed, examined, and discussed, with the following additions and/or exceptions. Lyle Dixon RN - 05/03/2015 2:42 PM EDT Patient has been alert and oriented this shift. VSS. No reports or pain or discomfort. Has been ambulating independently on unit. Discharge order acknowledged. IV and Telemetry discontinued. AVS printed and provided to patient. AVS and medication list reviewed with patient; all questions answered at this time. Patient discharged to [facility] with her friend in stable condition. Anita Zazueta RN - 05/02/2015 11:42 PM EDT Pt c/o 10/21 Left sided chest aching underneath her breast and aching in her left calf, pain in chestsimilar to what she has been having, pt requested tylenol, which was given, pain still present, notified, call light within reach, will continue to monitor. MD Ernandez to bedside, will give 325mg ASA Mary Navarro MD - 05/02/2015 10:29 PM EDT Inpatient Cardiology Progress Note Patient Name: Dheeraj Yusuf Date of Admission: 05/01/2015 ( Hospital Day 1 day ) Service: S1 albaro Gonzales Yusuf is a 55 y.o. female with past medical history significant for HTN, HLD, cutaneous amyloidosis, asthma, hypothyroidism, anti-phospholipid syndrome, probable SLE and recent hospitalization for pericardial tamponade from hemopericardium in the setting of a supra-therapeutic INR requiring anton cardiocentesis who presents with complaints of chest pain. Patient presents with chest pain consistent with pericarditis in the setting of recently tapering off steroids Active Ambulatory Problems Diagnosis Date Noted ??? [...] Supratherapeutic INR 01/24/2015 ??? Pleural effusion 01/24/2015 Resolved Ambulatory Problems Diagnosis Date Noted ??? No Resolved Ambulatory Problems Past Medical History Diagnosis Date ??? Hypertension ??? Anti-phospholipid antibody syndrome ??? Eczema ??? Herniated disc ??? Anemia, iron deficiency ??? Asthma ??? Pneumonia Former smoker 60 pack years, quit 11 ago 24 hr events: - No acute events overnight ROS: Denies, SOB, palpitations, PND, Orthopnea, dizziness/LH, LE swelling or pain, n/v, abd pain. Endorses / retrosternal chest pain improved from 10/21 yesterday. Patient complains of cramping in left calf worse for past few days. Telemetry: Sinus rhythm 70 - 85 Cardiac Meds: Nitro .4 Simvastatin 20 Aspirin 81mg BID Other Meds: acetomenaphen cholchcine .6 mg daily Levothyroxine Prednisone 20 mg daily PO Hydroxychloroquine 200 mg BID Physical Exam: Last value Range last 24 hrs Temperature Temp: 36.5 ??C (97.7 ??F) Temp: [36.5 ??C (97.7 ??F)-36.7 ??C (98.1 ??F)] Heart Rate Heart Rate: 70 Heart Rate: [70-80] Blood Pressure BP: 139/69 mmHg BP: (129-145)/(63-88) Respiratory Rate Resp: 18 Resp: [17-20] SpO2 SpO2: 98 % SpO2: [93 %-98 %] Intake/Output Summary (Last 24 hours) at 05/02/159 Last data filed at 05/02/15 2100 Gross per 24 hour Intake 1140 ml Output 2075 ml Net -935 ml Patient Vitals for the past 168 hrs: Weight 05/02/15 0500 90.5 kg (199 lb 8.3 oz) 05/01/15 2130 91 kg (200 lb 9.9 oz) Gen: pleasant female in NAD HEENT: atraumatic, no lymphadenopathy, mucous membranes moist CV: RRR, s1/s2 of nl character and amplitude, no m/r/g, JVP at level with clavicle Resp: Clear to auscultation Abd: nondistended, soft, NT, nabs throughout Ext: WWP, ++ dp/pt pulses, No edema. Calf tender on left, no mass, swelling, or cords. Neuro: alert and responsive. Without focal deficit Labs Recent Labs 05/02/15 0357 05/01/15 2147 05/01/15 1640 WBC 9.9 7.5 8.7 HGB 13.6 13.3 13.7 HCT 40.0 39.5 41.8 PLATELET 336 360 382* Recent Labs 05/02/15 0357 05/01/15 1640 NA 141 139 K 4.0 3.1* CL 98 95* CO2 27 29 BUN 11 9 CREATININE 0.75 0.77 No results for input(s): AST, ALT, ALKPHOS, BILITOT, BILIDIR in the last 168 hours. Recent Labs 05/02/15 0357 CALCIUM 8.1* MAGNESIUM 0.83 Recent Labs 05/01/15 1640 INR 1.0 PT 13.4 PTT 34 Recent Labs 05/01/15 2147 05/01/15 1640 CK 83 -- TROPONINT <0.03 <0.03 Diagnostic Studies: EKG 05/02/15 NSR, low voltage, poor R wave progression Unchanged from EKG 01/2015 4pm Normal sinus rhythm Inferior infarct (cited on or before 22-JAN-2015) Cannot rule out Anterior infarct , age undetermined Abnormal ECG When compared with ECG of 23-JAN-2015 04:25, Questionable change in QRS duration Minimal criteria for Anterior infarct are now present 05/01 CT chest IMPRESSION: 1. No pulmonary emboli. 2. Interval resolution of the previously seen bilateral pleural effusions. 3. Mild/moderate sized pericardial effusion, slightly increased when compared with the prior CT scan. TTE 01/26/15 SUMMARY: 1. Limited follow up s/p pericardiocentesis. 2. There is a small-moderate sized posterior pericardial effusion. TTE 01/22/15 SUMMARY: 1. There is a large circumferential pericardial effusion. Echocardiographic findings suggest cardiac tamponade, including right ventricular and right atrial diastolic collapse, respiratory variation in Doppler flows, and plethora of the IVC. 2. The left ventricular chamber size is normal. Mild concentric left ventricular hypertrophy is observed. The quantitative left ventricular ejection fraction by biplane Fisher's method is 68%. 3. There is no hemodynamically significant valve disease. 4. See remainder of report for additional findings. ASSESSMENT: Dheeraj Yusuf is a 55 y.o. female with past medical history significant for HTN, HLD, cutaneous amyloidosis, asthma, hypothyroidism, anti-phospholipid syndrome, probable SLE and recent hospitalization for pericardial tamponade from hemopericardium in the setting of a supra-therapeutic INR requiring per icardiocentesis who presents with complaints of chest pain. Patient presents with chest pain consistent with pericarditis in the setting of recently tapering off steroids which were started on her initial hospitalization for pericarditis. Her outpatient workup after s/p hospitalization is notable for probable SLE and she has been treated with plaquenil and has completed a taper of her prednisone thispast weekend. 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 Her presentation today with the development of another pericardial effusion once weaning off the s teroids is again concerning for an autoimmune etiology (likely her SLE) causing her recurrent perciarditis. Steroid treatment increases risk of reoccurrence but now that steroids have been used they are likely necessary to decrease inflammation. Started steroids and colchicine for treatment. Will require slow taper. colchicine may reduce risk of reoccurrence this time. Despite her presenation with elevated JVP and distant heart sounds, she is not hypotensive, is overall hemodynamically stable and her pericardial effusion is not likely large enough to cause tamponade. PLAN: Pericarditis with pericardial effusion - initiate prednisone 20 dosing and colchicine .3 mg daily - monitor for any changes in hemodynamics -if stable over night and pain tolerable discharge home on prednisone 20 mg and colchicine .3 mg daily. Prednisone taper quickly to 5 then hold, then taper off of 5 over course of weeks to months. Colchicine continue for 3-6 months. Patient will follow up with rheumatology. SLE - continue home plaquenil Antiphospholipid syndrome - continue home ASA BID Hypothyroid - continue home synthroid Other - Home medications: continue home ASA and zocor dosing - DVT prophylaxis: SCDs - GI prophylaxis: none indicated - Code Status: FULL CODE - Dispo: admit to S1 cardiology service, pager [phone] MARY NAVARRO MD Cardiology S1 (pgr. [phone]) Josue Bee MD - 05/02/2015 6:19 AM EDT Inpatient Cardiology Progress Note Patient Name: Dheeraj Yusuf Date of Admission: 05/01/2015 ( Hospital Day 1 day ) Service: S1 albaro Yusuf is a 55 y.o. female with past medical history significant for HTN, HLD, cutaneous amyloidosis, asthma, hypothyroidism, anti-phospholipid syndrome, probable SLE and recent hospitalization for pericardial tamponade from hemopericardium in the setting of a supra-therapeutic INR requiring anton cardiocentesis who presents with complaints of chest pain. Patient presents with chest pain consistent with pericarditis in the setting of recently tapering off steroids Active Ambulatory Problems Diagnosis Date Noted ??? [...] Supratherapeutic INR 01/24/2015 ??? Pleural effusion 01/24/2015 Resolved Ambulatory Problems Diagnosis Date Noted ??? No Resolved Ambulatory Problems Past Medical History Diagnosis Date ??? Hypertension ??? Anti-phospholipid antibody syndrome ??? Eczema ??? Herniated disc ??? Anemia, iron deficiency ??? Asthma ??? Pneumonia Former smoker 60 pack years, quit 11 ago 24 hr events: - No acute events overnight ROS: Denies, SOB, palpitations, PND, Orthopnea, dizziness/LH, LE swelling or pain, n/v, abd pain. Endorses 2/10 retrosternal chest pain improved from 3/10 yesterday. Patient complains of cramping in left calf worse for past few days. Telemetry: Sinus rhythm 70 - 85 Cardiac Meds: Nitro .4 Simvastatin 20 Aspirin 81mg BID Other Meds: acetomenaphen cholchcine .6 mg daily Levothyroxine Prednisone 20 mg daily PO Hydroxychloroquine 200 mg BID Physical Exam: Last value Range last 24 hrs Temperature Temp: 36.6 ??C (97.9 ??F) Temp: [36.2 ??C (97.2 ??F)-36.8 ??C (98.2 ??F)] Heart Rate Heart Rate: 80 Heart Rate: [74-84] Blood Pressure BP: 145/88 mmHg BP: (134-164)/(68-88) Respiratory Rate Resp: 20 Resp: [16-30] SpO2 SpO2: 93 % SpO2: [93 %-99 %] Intake/Output Summary (Last 24 hours) at 05/02/15 06 Last data filed at 05/02/15 0349 Gross per 24 hour Intake 450 ml Output 650 ml Net -200 ml Patient Vitals for the past 168 hrs: Weight 05/02/15 0500 90.5 kg (199 lb 8.3 oz) 05/01/15 2130 91 kg (200 lb 9.9 oz) Gen: pleasant female in NAD HEENT: atraumatic, no lymphadenopathy, mucous membranes moist CV: RRR, s1/s2 of nl character and amplitude, no m/r/g, JVP at level with clavicle Resp: Clear to auscultation Abd: nondistended, soft, NT, nabs throughout Ext: WWP, ++ dp/pt pulses, No edema. Calf tender on left, no mass, swelling, or cords. Neuro: alert and responsive. Without focal deficit Labs Recent Labs 05/02/15 0357 05/01/15214605/01/15 1640 WBC 9.9 7.5 8.7 HGB 13.6 13.3 13.7 HCT 40.0 39.5 41.8 PLATELET 336 360 382* Recent Labs 05/02/15 0357 05/01/15 1640 NA 141 139 K 4.0 3.1* CL 98 95* CO2 27 29 BUN 11 9 CREATININE 0.75 0.77 No results for input(s): AST, ALT, ALKPHOS, BILITOT, BILIDIR in the last 168 hours. Recent Labs 05/02/15 0357 CALCIUM 8.1* MAGNESIUM 0.83 Recent Labs 05/01/15 1640 INR 1.0 PT 13.4 PTT 34 Recent Labs 05/01/15214605/01/15 1640 CK 83 -- TROPONINT <0.03 <0.03 Diagnostic Studies: EKG 05/02/15 NSR, low voltage, poor R wave progression Unchanged from EKG 01/2015 4pm Normal sinus rhythm Inferior infarct (cited on or before 22-JAN-2015) Cannot rule out Anterior infarct , age undetermined Abnormal ECG When compared with ECG of 12-WESLEY-2015 04:25, Questionable change in QRS duration Minimal criteria for Anterior infarct are now present 05/01 CT chest IMPRESSION: 1. No pulmonary emboli. 2. Interval resolution of the previously seen bilateral pleural effusions. 3. Mild/moderate sized pericardial effusion, slightly increased when compared with the prior CT scan. TTE 01/26/15 SUMMARY: 1. Limited follow up s/p pericardiocentesis. 2. There is a small-moderate sized posterior pericardial effusion. TTE 01/22/15 SUMMARY: 1. There is a large circumferential pericardial effusion. Echocardiographic findings suggest cardiac tamponade, including right ventricular and right atrial diastolic collapse, respiratory variation in Doppler flows, and plethora of the IVC. 2. The left ventricular chamber size is normal. Mild concentric left ventricular hypertrophy is observed. The quantitative left ventricular ejection fraction by biplane Fisher's method is 68%. 3. There is no hemodynamically significant valve disease. 4. See remainder of report for additional findings. ASSESSMENT: Dheeraj Yusuf is a 55 y.o. female with past medical history significant for HTN, HLD, cutaneous amyloidosis, asthma, hypothyroidism, anti-phospholipid syndrome, probable SLE and recent hospitalization for pericardial tamponade from hemopericardium in the setting of a supra-therapeutic INR requiring per icardiocentesis who presents with complaints of chest pain. Patient presents with chest pain consistent with pericarditis in the setting of recently tapering off steroids which were started on her initial hospitalization for pericarditis. Her outpatient workup after s/p hospitalization is notable for probable SLE and she has been treated with plaquenil and has completed a taper of her prednisone thispast weekend. 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 Her presentation today with the development of another pericardial effusion once weaning off the s teroids is again concerning for an autoimmune etiology (likely her SLE) causing her recurrent perciarditis. Steroid treatment increases risk of reoccurrence but now that steroids have been used they are likely necessary to decrease inflammation. Started steroids and colchicine for treatment. Will require slow taper. colchicine may reduce risk of reoccurrence this time. Despite her presenation with elevated JVP and distant heart sounds, she is not hypotensive, is overall hemodynamically stable and her pericardial effusion is not likely large enough to cause tamponade. PLAN: Pericarditis with pericardial effusion - initiate prednisone 20 dosing and colchicine .3 mg daily - monitor for any changes in hemodynamics -if stable over night and pain tolerable discharge home on prednisone 20 mg and colchicine .3 mg daily. Prednisone taper quickly to 5 then hold, then taper off of 5 over course of weeks to months. Colchicine continue for 3-6 months. Patient will follow up with rheumatology. SLE - continue home plaquenil Antiphospholipid syndrome - continue home ASA BID Hypothyroid - continue home synthroid Other - Home medications: continue home ASA and zocor dosing - DVT prophylaxis: SCDs - GI prophylaxis: none indicated - Code Status: FULL CODE - Dispo: admit to S1 cardiology service, pager [phone] VLAD MENDEZ MD Cardiology S1 (pgr. [phone]) Low suspicion of DVT left leg but given complaints and history of Antiphospholipid syndrome, duplex ultrasound of leg ordered to rule out. Pain pre-dates admission, heparin not currently on board because of history of hemopericardium. Aspirin for antiphospholipid management. -Will follow ultrasound STAFF ADDENDUM Patient interviewed and examined. Medical record reviewed. I agree with the Intercurrent History Past Medical History Physical Exam Objective Data Assessment and Plan as detailed by Dr. Mendez, with whom the patient was interviewed, examined, and discussed, with thefollowing additions and/or exceptions. Her echo showed only a trivial pericardial effusion with no evidence of tamponade or constrictive physiology. I agree with the plan as detailed above. documented in this encounter H&P Notes Josue Bee MD - 05/01/2015 6:41 PM EDT Cardiology Admission History and Physical Patient Name: Dheeraj Yusuf Service: S1 Team Responsible Attending: Dr. Cristal MD PCP: CHARLENE GONZALES APRN (General) PCP phone #: [phone] ID/Chief Complaint: Chest pain History of Present Illness: Dheeraj Yusuf is a 55 y.o. female with past medical history significant for HTN, HLD, cutaneous amyloidosis, asthma, hypothyroidism, anti-phospholipid syndrome, probable SLE and recent hospitalization for pericardial tamponade from hemopericardium in the setting of a supra-therapeutic INR requiring per icardiocentesis who presents with complaints of chest pain. She states that a couple of days ago shedeveloped chest pain that was worse with lying flat and improved with sitting up and standing. The chest pain is described as sharp and worse with deep breaths. States that it localized to the center of her chest with no radiation. She states that it is similar in nature to the chest pain she had previously when admitted for pericardiocentesis in January. She states that she presented to her PCP's office who was concerned for PE,obtained a D-dimer which was elevated and then scheduled the patient for aCT PE protocol. Her CT revealed no PE however did reveal a pericardial effusion and she was instructed [place] [facility] [place]. In the ED, she complains of the chest pain with lying down flat however is comfortably sitting up in the chair. She denies shortness of breath, lightheadedness or dizziness. No recent illnesses, no fevers or chills. Patient states that she has been in her normal state of health lately.She has felt well since her pericardiocentesis with no reoccurrence of the chest pain. She states that she has followed up with rheumatology since and had been doing well. She was recently weaned off of prednisone, which she had been on since her hospitalization in January. She took her last doses over this past weekend (04/25- 04/26). She also has bumped her dose of aspirin 81 mg daily to BID per recommendations from rheumatology. She no longer takes coumadin and has not since her hospitalization in January. Review of Systems: GENERAL HEENT CV PULM x All negative x All negative All negative x All negative Weight loss Headache x Chest Pain Non-productive cough Weight gain Vision change Palpitations Productive cough Fevers Sinus congestion Orthopnea Wheezing Chills Hoarseness LE edema Hemoptysis Night sweats Epistaxis PND Pleuritic pain Fatigue Syncope SOB Claudication NOBLE MSK RENAL ENDO GI x All negative x All negative x All negative x All negative Arthralgias Frequency Heat intolerance Blood in stool Myalgias Urgency Cold intolerance Dysphagia Weakness Hematuria Polydipsia Odynophagia Stiffness Flank pain Polyphagia Abdominal discomfort Dysuria Cushingoid Constipation Foamy urine Diarrhea Discharge Nausea/Vomiting LYMPH SKIN NEURO PSYCH x All negative x All negative x All negative x All negative Swollen nodes Rash Seizures Depressed affect Tender nodes Ulcers Tremors Occupational stress Diffuse nodes Bruising Spasticity Anxiety Local nodes Tanned skin Focal weakness Insomnia Night sweats Telangiectasias Diplopia Paresthesias Dizziness Problem List/Past Medical History Patient Active Problem List Diagnosis ??? Cardiac tamponade ??? Acute bloody pericarditis ??? Supratherapeutic INR ??? Pleural effusion ??? S/P complete thyroidectomy ??? Amyloidosis cutis ??? 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 Followed by [facility]ak[facility] and [facility]. W/U to date w/ neg ECHO at [facility]. CT w/ one para-aortic 2cm LN which we will follow. Neg SPEP and 24 hour urine at [facility]. Neg fat pad biopsy. BMBx [...] In addition, there is superficial anddeep perivascular Mcintire+, Lambda- plasma cell infiltrate. Please correlate with [...] calf pain on reclining ??? Miscarriage One Meds: No current facility-administered medications on file prior to encounter. Current Outpatient Prescriptions on File Prior to Encounter Medication Sig Dispense Refill ??? hydroxychloroquine (PLAQUENIL) 200 mg Tablet Take 1 tablet by mouth 2 times daily. 60 tablet 3 ??? cephalexin (KEFLEX) 500 mg Capsule 0 ??? ipratropium (ATROVENT) 0.06 % [place], Non-Aerosol 1 ??? levofloxacin (LEVAQUIN) 500 mg Tablet 0 ??? predniSONE (DELTASONE) 20 mg Tablet 0 ??? hydrochlorothiazide (HYDRODIURIL) 25 mg Tablet daily. [...] Take 1-2 tabs of the (500mg) Tablets Allergies: No Known Allergies Family History: Father had RA Grandfather DM Social History: Tobacco: former smoker, quit 11 years ago, smoked 2 packs per day for 30 years EtOH: rare Living Situation: lives with a friend [facility] Vitals: Last value Range last 24 hrs Temperature Temp: 36.2 ??C (97.2 ??F) Temp: [36.2 ??C (97.2 ??F)] Heart Rate Heart Rate: 79 Heart Rate: [79-82] Blood Pressure BP: 143/77 mmHg BP: (143-164)/(77-85) Respiratory Rate Resp: 23 Resp: [16-23] SpO2 SpO2: 96 % SpO2: [96 %-99 %] Examination: General: Pleasant, alert, appropriate, in NAD. Appears stated age. HEENT: EOMI, PERRL, anicteric sclera Neck: Supple with normal ROM Cardiac: Distant heart sounds, normal S1 and S2, Regular rate and rhythm; No murmrs/gallops/rubs appreciated. JVP elevated to jaw line. No pulsus paradoxus appreciated Respiratory: Nonlabored. Clear to auscultation bilaterally; No wheezes/ rhonci/ rales. Abd: obese,+ BS; soft, non-tender, non-distended Ext: WWP without le edema, cyanosis or clubbing. DPP 2+ bilaterally. Hyperpigmented nodules on lowerextremities bilaterally consistent with cutaneous amyloid Neuro: II-XII grossly intact. Alert and orientated, no-focal deficits, sensation intact to crude touch Skin: No rashs, no lesions, no petechiae Lines: PIVs Laboratory: CBC: Recent Labs 05/01/15 1640 04/06/15 1108 03/10/15 1723 WBC 8.7 10.6* 12.0* HGB 13.7 13.8 13.7 PLATELET 382* 315 352 Chemistry: Recent Labs 05/01/15 1640 04/06/15 1108 03/10/15 1723 NA 139 141 142 K 3.1* 3.9 4.0 CL 95* 99 98 CO2 29 29 26 BUN 9 14 15 CREATININE 0.77 0.88 0.77 GLUCOSE 105 100 111 Recent Labs 04/06/15 1108 03/10/15 1723 02/03/15 1553 CALCIUM 8.3* 8.4* 8.5 LFT's: Recent Labs 04/06/15 1108 03/10/15 1723 02/03/15 1553 BILITOT 0.3 0.3 0.3 BILIDIR 0.1 0.1 0.1 ALBUMIN 4.1 4.4 4.4 ALKPHOS 67 69 88 ALT 17 22 23 AST 19 21 18 Coags: Recent Labs 05/01/15 1640 PT 13.4 INR 1.0 PTT 34 Cardiac enzymes: Recent Labs 05/01/15 1640 TROPONINT <0.03 Endocrine: Recent Labs 01/23/15 0325 TSH 5.17* Heme: No results for input(s): LDH, HAPTOGLOBIN, URICACID in the last 168 hours. Microbiology: None Diagnostic Studies: EKG 05/02/15 NSR, low voltage, poor R wave progression Unchanged from EKG 01/2015 CT chest IMPRESSION: 1. No pulmonary emboli. 2. Interval resolution of the previously seen bilateral pleural effusions. 3. Mild/moderate sized pericardial effusion, slightly increased when compared with the prior CT scan. TTE 01/26/15 SUMMARY: 1. Limited follow up s/p pericardiocentesis. 2. There is a small-moderate sized posterior pericardial effusion. TTE 01/22/15 SUMMARY: 1. There is a large circumferential pericardial effusion. Echocardiographic findings suggest cardiac tamponade, including right ventricular and right atrial diastolic collapse, respiratory variation in Doppler flows, and plethora of the IVC. 2. The left ventricular chamber size is normal. Mild concentric left ventricular hypertrophy is observed. The quantitative left ventricular ejection fraction by biplane Fisher's method is 68%. 3. There is no hemodynamically significant valve disease. 4. See remainder of report for additional findings. ASSESSMENT: Dheeraj Yusuf is a 55 y.o. female with past medical history significant for HTN, HLD, cutaneous amyloidosis, asthma, hypothyroidism, anti-phospholipid syndrome, probable SLE and recent hospitalization for pericardial tamponade from hemopericardium in the setting of a supra-therapeutic INR requiring per icardiocentesis who presents with complaints of chest pain. Patient presents with chest pain consistent with pericarditis in the setting of recently tapering off steroids which were started on her initial hospitalization for pericarditis. Her outpatient workup after s/p hospitalization is notable for probable SLE and she has been treated with plaquenil and has completed a taper of her prednisone thispast weekend. 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 Her presentation today with the development of another pericardial effusion once weaning off the s teroids is again concerning for an autoimmune etiology (likely her SLE) causing her recurrent perciarditis. Thus, will initiate a regimen of steroids and colchicine for treatment. Despite her presenation with elevated JVP and distant heart sounds, she is not hypotensive, is overall hemodynamically stable and her pericardial effusion is not likely large enough to cause tamponade. She would likely benefit again from pericardiocentesis if there is adequate fluid, and therefore will make NPO, plan otherwise is as follows. PLAN: Admit to Cardiology, S1 Team Pager #[phone] Pericarditis with pericardial effusion - initiate prednisone dosing and colchicine - consider pericardiocentesis, NPO at midnight - monitor for any changes in hemodynamics SLE - continue home plaquenil Antiphospholipid syndrome - continue home ASA BID Hypothyroid - continue home synthroid Other - Home medications: continue home ASA and zocor dosing - DVT prophylaxis: SCDs - GI prophylaxis: none indicated - Code Status: FULL CODE - Dispo: admit to S1 cardiology service, pager [phone] FAUSTO MITCHELL, DO PGY2 Internal medicine STAFF ADDENDUM Patient interviewed and examined. Medical record reviewed. I agree with the History of Present Illness Past Medical History Family History, Social History Review of Systems Physical Exam Objective Data Assessment and Plan as detailed by Dr. Mitchell, with whom the patient was interviewed, examined, and discussed, with the following additions and/or exceptions. Based on her clinical presentation she is experiencing recurrentpericarditis following a steroid taper, a well described phenomena. She has mild pain, mild SOB, andno findings on exam to suggest any tamponade physiology. Will repeat her echocardiogram to insure this. Last time steroids alone without colchicine quelled her symptoms. Can restart her on 20 mg po QD and taper in a matter of days down to 10 mg. Can likely bring that down to 5 mg in a week. Would thentaper by by 1 mg increments over a month unless her symptoms recur. documented in this encounter ED Notes Nash Quezada RN - 05/01/2015 7:06 PM EDT Consult team down to see pt. Pt has been up independent without difficulty. Awaiting admit orders and bed. Alla Melendrez MD - 05/01/2015 4:25 PM EDT Dheeraj Yusuf is an 55 y.o. female who presents to the ED with: Chief Complaint Patient presents with ??? Shortness of Breath I saw this patient 05/01/2015 at 4:25 PM HPI Dheeraj Yusuf is a 55 y.o. female with PMH sig for antiphospholipid antibody syndrome, amyloidosis, hypertension, hyperlipidemia, and prior pericardial tamponade (in setting of supratherapeutic INR when patient was on coumadin, 1L sanguinous output after pericardiocentesis) who presents to the Emergency Department with chest pain and shortness of breath. Patient reports 2 days of increasing chest pain. Pain is central, sharp, worse with exertion, pleuritic, and worse with laying flat. Better sittingup, currently mild, severe when laying down. Also reports associated dyspnea on exertion. No shortness of breath at rest. Patient reports years of bilateral lower extremity edema, currently trace and at baseline. Denies cough. Denies fevers, chills, diaphoresis. Patient was seen by her primary care provider for this who ordered a d-dimer which was elevated. Patient was sent for CTA this morning at OSH. CTA demonstrated no pulmonary embolism but a pericardial effusion. Patient was told to report to the emergency department at [facility] for further evaluation of her pericardial effusion. Review of Systems: Review of Systems Constitutional: Negative for fever, chills and diaphoresis. HENT: Negative for congestion, rhinorrhea and sore throat. Respiratory: Positive for shortness of breath. Negative for cough and wheezing. Cardiovascular: Positive for chest pain and leg swelling. Negative for palpitations. Gastrointestinal: Negative for nausea, vomiting, abdominal pain, diarrhea and constipation. Genitourinary: Negative for dysuria, urgency and frequency. Musculoskeletal: Negative for back pain. Skin: Negative for color change and rash. Neurological: Negative for dizziness, light-headedness and headaches. Hematological: Does not bruise/bleed easily. No longer on Coumadin, currently takes aspirin daily Psychiatric/Behavioral: Negative for confusion and agitation. Physical Exam: Patient Vitals for the past 24 hrs: BP Temp Temp src Pulse Resp SpO2 05/01/15 1405 164/85 mmHg 36.2 ??C (97.2 ??F) Oral 82 16 99 % Physical Exam Constitutional: She is oriented to person, place, and time. She appears well- developed and well-nourished. No distress. HENT: Head: Normocephalic and atraumatic. Mouth/Throat: Oropharynx is clear and moist. Eyes: Conjunctivae are normal. Pupils are equal, round, and reactive to light. Neck: Normal range of motion. No JVD present. No tracheal deviation present. Cardiovascular: Normal rate, regular rhythm and intact distal pulses. Heart sounds distant Pulmonary/Chest: Effort normal and breath sounds normal. No stridor. No respiratory distress. She has no wheezes. She has no rales. Abdominal: Soft. Bowel sounds are normal. She exhibits no distension. There is no tenderness. Musculoskeletal: Normal range of motion. She exhibits no edema or tenderness. Neurological: She is alert and oriented to person, place, and time. Skin: Skin is warm and dry. No rash noted. She is not diaphoretic. Psychiatric: She has a normal mood and affect. Her behavior is normal. Laboratory Results: BMP are unremarkable, coags are within normal limits, cardiac enzymes are within normal limits Imaging Results: All images have been reviewed by me, and the following interpretations are my own: CT scan shows a pericardial effusion and no sign of a pulmonary embolism ED Course: - Patient was evaluated and discussed with Dr. Melendrez - Medications, allergies and past medical history reviewed - EKG shows normal sinus rhythm with inferior / lateral T-wave flattening, no acute ST segment changes Assessment and Plan: Assessment: 55 y.o. female with 2 days of chest pain with a recurrent pericardial effusion. Patient is hemodynamically stable in the emergency department. Patient is nontoxic-appearing. Patient is not showing signs of heart failure or cardiac tamponade on physical exam in the setting of her pericardial effusion. I'm uncertain what is causing patient's pericardial effusion at this point, and the etiology of her effusion needs further workup. Patient's chest pain could likely be explained by her pericardial effusion given the fact that it is positional and pleuritic, however I cannot rule out all other causes of chest pain at this point completely. There is no sign of a pulmonary embolism on CT scanin this patient with antiphospholipid antibody syndrome. Acute coronary syndrome is certainly still a possibility given patient's age and exertional nature of the pain. EKG does not show an ST elevation AL, however there are some T-wave abnormalities and patient should be followed by repeat EKGs and cardiac enzymes to rule out rule out AL further. Patient was discussed with cardiology, who agrees that the patient needs to be admitted to the hospital. Patient was admitted to cardiology for further workup of her pericardial effusion and to rule out acute coronary syndrome. Patient was comfortable with admission to the hospital. Patient was admitted to hospital stable condition. Glen Lindsey MD Resident 05/02/15 0027 ED ATTENDING ATTESTATION NOTE The patient was seen in conjunction with Dr. Lindsey, the resident physician. I have independently performed the torres portions of the history and physical exam. I have reviewed the nursing notes, vital signs, and all diagnostic studies personally including labs, imaging studies and EKGs. I have discussed the details of the case with the resident and agree with the assessment and plan as described in the resident note above unless noted otherwise below. Brief Summary: SOB and above with recurrent pericardial effusion. No tamponade physiology on my eval. EKG reviewed by me negative for acute ischemia. Final Assessment: as above. Alla Melendrez MD 05/03/15 0340 documented in this encounter Miscellaneous Notes Plan of Care - Anita Zazueta RN - 05/03/2015 5:20 AM EDT Problem: General Plan of Care Goal: Plan of Care Review Outcome: Ongoing (Interventions Implemented as Appropriate) 05/03/15 0510 Plan of Care Review Plan of Care Outcome Status ongoing (interventions implemented as appropriate) Progress progress toward functional goals as expected Coping/Psychosocial Response Interventions Plan of Care Reviewed with patient OUTCOME EVALUATION NOTE: OUTCOME SUMMARY: Pt had an episode of chest discomfort, Tylenol given with no relief, MD Ernandez into see pt, extra dose of 325mg ASA ordered, pt slept well the rest of the night. PLAN MOVING FORWARD: Possible DVT study on Left lower leg today INDIVIDUALIZED FALL PREVENTION: Assistance: Independent Supervision: Telemetry, call light within reach, rings appropriately Surveillance: Hourly rounding CPG GOAL OUTCOME EVALUATION: Goal: Individualization and Mutuality Outcome: Ongoing (Interventions Implemented as Appropriate) 05/02/15 0300 05/03/15 0510 Individualization Patient Specific Preferences -- honored Mutuality/Individual Preferences What anxieties, fears or concerns do you have about your health or care? none -- What questions do you have about your health or care? none -- What information would help us give you more personalized care? none -- Goal: Fall Prevention-Safe Patient Handling Outcome: Ongoing (Interventions Implemented as Appropriate) 05/02/15 2130 Safety Interventions Safety Precautions/Fall Reduction environmental modification;fall reduction program maintained;lighting adjusted for task/safety;nonskid shoes/slippers when out of bed Rivera Fall Risk History of Falling 0 Secondary Diagnosis 15 Ambulatory Aids 0 Intravenous Therapy/Heparin/Saline Lock 20 Gait/Transferring 0 Mental Status 0 Score 35 OTHER Rivera Fall Risk Med Musculoskeletal Interventions Activity/Level of Assistance up in room;independently Positioning independent Goal: Infection Control Outcome: Ongoing (Interventions Implemented as Appropriate) 05/01/15212905/02/152129 Safety Interventions Isolation Precautions -- standard precautions maintained Infection Prevention -- rest/sleep promoted;promote handwashing;hydration promoted;nutrition promoted;environmental surveillance Coping/Psychosocial Response Interventions Counseling emotional support provided;reassurance provided;personal strengths integrated -- Goal: Discharge Needs Assessment Outcome: Ongoing (Interventions Implemented as Appropriate) 05/01/15200005/03/15 05 Discharge Needs Assessment Concerns to be Addressed -- no discharge needs identified Current Health Anticipated Changes Related to Illness none -- Living Environment Transportation Available family or friend will provide -- Plan of Care - Jennifer Rodriges RN - 05/02/2015 4:38 AM EDT Problem: General Plan of Care Goal: Plan of Care Review 05/01/152129 Coping/Psychosocial Response Interventions Plan of Care Reviewed with patient OUTCOME EVALUATION NOTE: OUTCOME SUMMARY: 2014 - Pt arrived from the ED via wheelchair, telemetry initiated, pt in NSR. VSS, some c/o of lower left leg pain. Bengay given, PRN acetaminophen given with some effect. PLAN MOVING FORWARD: NPO for possible procedure INDIVIDUALIZED FALL PREVENTION: Assistance: Stand by assist Supervision: Call lay within reach. Rings appropriately. Surveillance: Purposeful hourly rounding, telemetry. Goal: Infection Control 05/02/15 0431 Safety Interventions Isolation Precautions standard precautions maintained Initial Assessments - Annemarie Sutton RN - 05/01/2015 7:44 PM EDT Office of Care Management/Initial Assessment Macroeconomics Professor Annemarie Sutton RN, ACM (pager [phone]) Patient: Dheeraj Gonzales Yusuf : 1960 (55 y.o.) Home: [place] [address]* LOS: 0 days Reviewed record and interviewed patient. Introduced CM role and services accepted. Patient Active Problem List Diagnosis Code ??? 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 Asthma 493.90 ??? Sinusitis, chronic 473.9 ??? Antiphospholipid antibody syndrome 289.81 ??? Edema of both legs 782.3 ??? Miscarriage 634.90 ??? Thyroid nodule 241.0 ??? 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 S/P complete thyroidectomy V45.89 ??? Cardiac tamponade 423.3 ??? Acute bloody pericarditis 420.90 ??? Supratherapeutic INR 790.92 ??? Pleural effusion 511.9 ?? Social/Family situation: Lives with friend Corby, who patient reports is in good health, supportive, and available to assist at home. Extended Emergency Contact Information Primary Emergency Contact: Marshall Simms Relation: Sibling Secondary Emergency Contact: Reginaldo Simms Relation: Sibling ?? Code status: Full Code ?? Advance directives: No. Discussed with patient importance and process for doing Advance Directives. Provided copy of [place] Advance Directive booklet. ?? Insurance coverage: [place] [employer] ?? Admission status: 05/01/15 IPI Order to Admit is entered. ?? [place] [facility] [place]: 01/[place]/15 after treatment for cardiac tamponade, acute bloody pericarditis, supratherapeutic INR, pleural effusion, antiphospholipid antibody syndrome. Was discharged home. ?? Anticipated barriers to discharge: None ?? Financial concerns: None ?? Identified patient/family concerns r/t discharge: None ?? Se[employer] referral indicated: No ?? Baseline functional status/mobility: Independent ?? Bathing: Independent ?? Dressing: Independent ?? Toileting: Independent ?? Transferring: Independent ?? Continence: Independent ?? Feeding: Independent ?? Able to use a telephone on own initiative: Yes ?? Takes care of all shopping needs independently: Yes ?? Plans, prepares, and serves adequate meals independently: Yes ?? Maintains house alone with occasional assistance with heavy work: Yes ?? Does personal laundry completely: Yes ?? Travels independently on public transportation or drives own car: Drives own car ?? Is responsible for taking medication in correct dosages at correct time: Yes ?? Manages financial matters independently (budgets, writes checks, pays rent and bills, goes to bank); collects and keeps track of income: Yes ?? Current home/community services/equipment: None ?? Current functional status/mobility: Independent ?? Anticipated discharge date: Plan of care is evolving ?? Anticipated discharge place: Home into the care of friend Corby ?? Anticipated discharge needs: None ?? Transportation at discharge: Friend Corby ?? PCP: CHARLENE GONZALES, CORPORATE TREASURER (General), Plan: Care Management will continue to monitor progress, follow for continuity of care, and assist with discharge planning. ED Triage - Nash Quezada RN - 05/01/2015 2:08 PM EDT 55 yo female, sent from [facility] for abnormal CTA done today. Neg PE study, pt does have early pericardial effusion. Pt was admitted for same back in January. Pt is no longer on Coumadin. A&Ox3, gcs 15, pt talking in full sentences, no acute respiratory distress noted. CRN aware of pt arrival. documented in this encounter Plan of Treatment Not on filedocumented as of this encounter Procedures Procedure Name Priority Date/Time Associated Diagnosis Comme nts CARDING DOUBLER SCAN 05/04/2015 12:00 AM EDT HEMOGRAM Routine 05/03/2015 5:55 Results for this AM EDT procedure are i n the results section. DIFFERENTIAL, Routine 05/03/2015 5:55 Results for this AUTOMATED AM EDT procedure are i n the results section. CBC (WITH DIFF) Routine 05/03/2015 5:55 AM EDT MAGNESIUM Routine 05/03/2015 5:55 Results for this AM EDT procedure are i n the results section. BASIC METABOLIC PANEL Routine 05/03/2015 5:55 Res ults for this (NON-FASTING) AM EDT procedure are in the results section. ECHOCARDIOGRAM Routine 05/02/2015 1:03 Pericarditis Results fo r this TRANSTHORACIC(LEB) PM EDT procedure are in the results section. HEMOGRAM Routine 05/02/2015 3:57 Results for this AM EDT procedure are i n the results section. DIFFERENTIAL, Routine 05/02/2015 3:57 Results for this AUTOMATED AM EDT procedure are i n the results section. CBC (WITH DIFF) Routine 05/02/2015 3:57 AM EDT MAGNESIUM Routine 05/02/2015 3:57 Results for this AM EDT procedure are i n the results section. BASIC METABOLIC PANEL Routine 05/02/2015 3:57 Res ults for this (NON-FASTING) AM EDT procedure are in the results section. HEMOGRAM Routine 05/01/2015 9:47 Results for this PM EDT procedure are i n the results section. DIFFERENTIAL, Routine 05/01/2015 9:47 Results for this AUTOMATED PM EDT procedure are i n the results section. CARDIAC ENZYMES STAT 05/01/2015 9:47 Results f or this ([facility] [place] [place] PM EDT procedure are i n the results section. CBC (WITH DIFF) Routine 05/01/2015 9:47 PM EDT REQUEST FOR 2ND READ Routine 05/01/2015 4:[address] CHEST PM EDT procedure are i n the results section. EKG 12-LEAD STAT 05/01/2015 4:42 Results for this PM EDT procedure are i n the results section. HEMOGRAM STAT 05/01/2015 4:40 Results for this PM EDT procedure are i n the results section. DIFFERENTIAL, STAT 05/01/2015 4:40 Results for this AUTOMATED PM EDT procedure are i n the results section. GOLD TUBE HOLD STAT 05/01/2015 4:40 Results fo r this PM EDT procedure are i n the results section. CREATININE STAT 05/01/2015 4:40 Results for this PM EDT procedure are i n the results section. APTT STAT 05/01/2015 4:40 Results for this PM EDT procedure are i n the results section. PROTHROMBIN TIME STAT 05/01/2015 4:40 Results for this PM EDT procedure are i n the results section. CBC (WITH DIFF) STAT 05/01/2015 4:40 PM EDT BUN STAT 05/01/2015 4:40 Results for this PM EDT procedure are i n the results section. TROPONIN STAT 05/01/2015 4:40 Results for this PM EDT procedure are i n the results section. PRO-BRAIN NATRIURETIC STAT 05/01/2015 4:40 Res ults for this PEPTIDE PM EDT procedure are i n the results section. GLUCOSE, RANDOM STAT 05/01/2015 4:40 Results f or this PM EDT procedure are i n the results section. ELECTROLYTES PANEL STAT 05/01/2015 4:40 Result s for this PM EDT procedure are i n the results section. documented in this encounter Results SCAN DOC: CARDING DOUBLER (05/04/2015 12:00 AM EDT) Narrative This result has an attachment that is no t available. Scanning Provider MEDIA MGR SCAN EXT ORDR/RSLT Differential, Automated (05/03/2015 5:55 AM EDT) P athologist Signature Neutrophils % 69.9 % CERNER MILLENNIUM Neutr Abs (ANC) 4.13 1.50 - CERNER 6.30 MILLENNIUM x10(3)/mcL Lymphocytes % 18.1 % CERNER MILLENNIUM Lymphocytes Abs 1.1 1.0 - 3.6 CERNER x10(3)/mcL MILLENNIUM Monocytes % 7.6 % CERNER MILLENNIUM Monocyte Abs 0.4 0.2 - 1.0 CERNER x10(3)/mcL MILLENNIUM Eosinophils % 3.6 % CERNER MILLENNIUM Eosinophils Abs 0.2 0.0 - 0.5 CERNER x10(3)/mcL MILLENNIUM Basophils % 0.5 % CERNER MILLENNIUM Basophils Abs 0.0 0.0 - 0.2 CERNER x10(3)/mcL MILLENNIUM Immature Gran % 0.30 % CERNER MILLENNIUM Comment: Immature granulocytes(IG's)percentage an d absolute count will include metamyelocytes, myelocytes, and promyelo cytes. Blood smears from CBCs yielding IG's will be scanned manually for mila german. If this scan disagrees with the automated IG or if promyelocytes are not ed, a manual differential will be performed. Cheryl Gran Abs 0.02 0.00 - 0.05 x10(3)/mcL CER NER MILLENNIUM Specimen Anatomical Collection Method Collection Time Receive d Time (Source) Location / / Volume Laterality Blood specimen 05/03/2015 5:55 AM 09/20/2 015 6:03 (specimen) EDT AM EDT Resulting Agency Comment Spec In Lab Josue Bee MD HEMATOLOGY ORDERABLES Performing Organization Address City/State/[place] [address] CERNER MILLENNIUM (ABNORMAL) Hemogram (05/03/2015 5:55 AM EDT) P athologist Signature WBC 5.9 4.0 - 10.0 CERNER x10(3)/mcL MILLENNIUM RBC 4.83 3.93 - CERNER 5.22 MILLENNIUM x10(6)/mcL Hemoglobin 12.6 11.2 - CERNER 15.7 gm/dL MILLENNIUM Hematocrit 38.7 34.0 - CERNER 45.0 % MILLENNIUM MCV 80.1 79.0 - CERNER 94.0 fL MILLENNIUM MCH 26.1 (L) 26.6 - CERNER 32.2 pg MILLENNIUM MCHC 32.6 32.0 - CERNER 36.5 gm/dL MILLENNIUM Platelets 290 145 - 370 CERNER x10(3)/mcL MILLENNIUM RDWSD 42.1 35.0 - CERNER 46.0 fL MILLENNIUM RDWCV 14.5 (H) 10.9 - CERNER 14.4 % MILLENNIUM MPV 9.4 9.0 - 12.0 CERNER fL MILLENNIUM Specimen Anatomical Collection Method Collection Time Receive d Time (Source) Location / / Volume Laterality Blood specimen 05/03/2015 5:55 AM 015 6:03 (specimen) EDT AM EDT Resulting Agency Comment Spec In Lab Josue Bee MD HEMATOLOGY ORDERABLES Performing Organization Address City/State/[place] [address] CERNER MILLENNIUM Magnesium (05/03/2015 5:55 AM EDT) P athologist Signature Magnesium 0.82 0.69 - 1.07 CERNER mmol/L MILLENNIUM Specimen Anatomical Collection Method Collection Time Receive d Time (Source) Location / / Volume Laterality Blood specimen 05/03/2015 5:55 AM 015 6:04 (specimen) EDT AM EDT Resulting Agency Comment Spec In Lab Josue Bee MD CHEMISTRY ORDERABLES Performing Organization Address City/State/ZIP [place] [address] CERNER MILLENNIUM (ABNORMAL) Basic Metabolic Panel (non-fasting) (05/03/2015 5:55 AM EDT) athologist Signature Glucose Lvl 100 65 - 199 CERNER mg/dL MILLENNIUM Comment: Diabetes: >=200 mg/dL plus symp toms BUN 12 8 - 18 mg/dL CERNER MILLENNIUM Creatinine 0.73 0.70 - 1.20 mg/dL CERNER MILL ENNIUM Comment: Please note that the pediatric reference intervals supplied above were not validated at [facility] [place] Results from pediatri c patients should be interpreted in conjunction to the patient's age, height and muscle mass. Sodium 143 135 - 145 mmol/L CERNER JARETH NIUM Potassium 3.7 3.5 - 5.0 mmol/L CERNER JARETH NIUM Comment: Please note: ??Patients with WBC >100,00 0 may have falsely elevated Potassium levels. ??For accurate Potassium quantif ication in these patients send serum separator tube (gold top) for subsequent determinations. ??Contact the Clinical Chemistry Laboratory if there are any qu estions. Chloride 102 98 - 107 mmol/L CERNER MILLENN IUM CO2 27 22 - 31 mmol/L CERNER MILLENNI UM Anion Gap 14 5 - 15 mmol/L CERNER MILLENNIU M Calcium 7.5 (L) 8.5 - 10.5 mg/dL CERNER JARETH NIUM Estimated GFR >60 >=60 CERNER MILLENNIU M Comment: This estimated GFR (eGFR) value [...] the following links into your internet browser. [email or web address] Specimen Anatomical Collection Method Collection Time Receive d Time (Source) Location / / Volume Laterality Blood specimen 05/03/2015 5:55 AM 015 6:04 (specimen) EDT AM EDT Resulting Agency Comment Spec In Lab Josue Bee MD CHEMISTRY ORDERABLES Performing Organization Address City/State/[place] [address] [facility] Echocardiogram Transthoracic(Leb) (05/02/2015 1:03 PM EDT) P athologist Signature EF 65 HEART[employer] SYSTEM Anatomical Region Laterality Modality Other Specimen (Source) Anatomical Location Collection Method / Collectio n Time Received Time / Laterality Volume 05/02/2015 Narrative 05/02/2015 1:44 PM EDT Procedure: ?Transthoracic Echocardiogram Patient: ?YUSUF DHEERAJ N ? (Age): 1960(55y) Med Rec#: ? [id number] ?Sex: ?F ? [place] [facility] [place]Ht / Wt: ??167.6(cm)/90.5( Pt. Loc: ?Adult Floor ? BSA: ?2 Study Date: ?? 05/02/2015 ?Pt. Type: Inpatient Tape: ? Referring: Josue Bee ([id number]) Referring: YUDITH Reading: Josue Bee ([id number]) Tile Layer Drainage: Rosibel Garcia Diagnosis: CPT Codes: *Echo Full (16236) *Spectral Doppler (37363) *Color Doppler (23080) Indication: ?? Pericarditis BP: ? 129/67 SUMMARY: 1. There is a trivial pericardial effusi on. There is no evidence of tamponade or constrictive physiology. 2. The left ventricular chamber size is normal. Left ventricular wall thickness is normal. There are no left v entricular segmental wall motion abnormalities. There is normal global le ft ventricular systolic function. The visually estimated left ve ntricular ejection fraction is 65%. 3. Right ventricular chamber size, wall thickness, and systolic function are within normal limits. 4. There is no hemodynamically significa nt valve disease. 5. See remainder of report for additiona l findings. FINDINGS: ? Left Ventricle ?The left ventricular chamber size is normal. ?Left ventricular wall thickness is normal. ?There is no evidence of LVOT obstr uction. ?There is normal global left ventri cular systolic function. ?The visually estimated left ventri cular ejection fraction is ??65%. ?There are no left ventricular segm ental wall motion abnormalities. ?Doppler assessment is consistent w ith normal left sided filling pressure. Left Atrium ?The left atrium is normal in size. 30 ml/m2 by volume index. Right Ventricle ?Right ventricular chamber size, wa ll thickness, and systolic function are within normal limits. ?The estimated pulmonary artery sys tolic pressure is 21 mmHg. ?The estimated right atrial pressur e is 3 mmHg. Right Atrium ?The right atrium appears normal. Aortic Valve ?The aortic valve is tricuspid. ?Focal aortic leaflet calcification is visualized. ?Systolic excursion of the aortic v alve is normal. ?There is aortic annular calcificat ion. ?There is no evidence of aortic autumn ve stenosis. ?There is a trace of aortic regurgi tation present. Mitral Valve ?The mitral valve leaflets are mild ly thickened. ?There is trace mitral regurgitatio n present. Tricuspid Valve ?The tricuspid valve appears normal in structure and function. ?There is trace tricuspid regurgita tion present. Pulmonic Valve ?The pulmonic valve appears normal in structure and function. ?There is trace pulmonic regurgitat ion present. Pericardium ?A trivial pericardial effusion is visualized. ?A pericardial fat pad is visualize d. ?There is no echo evidence of peric ardial tamponade. Aorta ?The aortic root is normal in size. ?The ascending aorta is normal in s ize. Pulmonary Artery ?The main pulmonary artery appears normal. Venous ?The inferior vena cava appears nor mal in size. ?There is a greater than 50% respir atory change in the inferior vena cava dimension. Misc ?Two-dimensional echo, spectral Dop pler and color Doppler performed. Chambers 2D ?Value ?Units (Range) ? IVSd (2D) ? 1.1 ?cm ? LVPWd (2D) ?1 ?cm ? IVS:LVPW ratio (2D) 1.1 ?ratio ? LVIDd (2D) ?4.5 ?cm ? LVIDs (2D) ?2.5 ?cm ? LVIDd (2D) index ?2.2 ?cm/m2 ? LVIDs (2D) index ?1.3 ?cm/m2 ? LV FS (2D) ?44 ? % ? EF Teichholz (2D) ?? 75 ? % ? Ao root diameter (2D3.2 ?cm (2.1 - 3.6) ? Ascending Ao ?3.3 ?cm (2 - 3.5) ? Volumes/Mass ?Value ?Units (Range) ? LA Area 4 CH ?21 ? cm2 (<21) ? LA ESV BP (A/L) inde29.9 ? ml/m2 ? RA AREA 4CH ? 14 ? cm2 ? LA ESV SP 4CH (MOD) 60.5 ? ml ? LA ESV SP 2CH (MOD) 45.6 ? ml ? LV mass (2D) ?166.7 ?g ? LV mass (2D) index ??83.3 ? g/m2 ? Diastolic/Systolic Function ?Value ?Units (Range) ? MV E-wave Vmax ?0.9 ?m/sec ? MV deceleration bauc648.4 ? msec ? MV A-wave Vmax ?0.7 ?m/sec ? MV E:A ratio ?1.2 ?ratio ? LV septal e' Vmax ?? 0.1 ?m/sec ? LV E:e' septal ratio8.6 ?ratio ? Tricuspid Valve ?Value ?Units (Range) ? TR Vmax ? 2.1 ?m/sec ? TR peak gradient ?18.3 ? mmHg ? RAP ? 3 ?mmHg ? RVSP ?21 ? mmHg ? Measurement Trending Name ? 05/02/2015 ?01/23/2015 ?01/22/2015 ? LVIDd (2D) ? 4. 45 3.62 LVIDs (2D) ? 2. 5 1.63 Wall Motion: Segment Name ?Rest ? Base-Anteroseptal ?? Normal ? Base-Anterior ? Normal ? Base-Anterolateral ??Normal ? Base-Posterolateral Normal ? Base-Inferior ? Normal ? Base-Inferoseptal ?? Normal ? Mid-Anteroseptal ?Normal ? Mid-Anterior ?Normal ? Mid-Anterolateral ?? Normal ? Mid-Posterolateral ??Normal ? Mid-Inferior ?Normal ? Mid-Inferoseptal ?Normal ? [place]-Septal ? Normal ? [place]-Anterior ? Normal ? [place]-Lateral ?Normal ? [place]-Inferior ? Normal ? [place]-Tip ?Normal ? This report has been electronically sign ed by: _ Josue Bee MD ? 05/02/2015 13 :43:54 Images reviewed and interpretation verif ied [facility] Cardiac Ultrasound Laboratory Procedure Note Josue Bee MD - 05/02/2015Formatt ing of this note might be different from the original. Procedure: Transthoracic Echocardiogram Patient: LISANDRO BURROUGHS(Age): [birth year](55y) Med Rec#: [id number] Sex: F [place] [facility] [place] Ht / Wt: 167.6(cm)/90.5( Pt. Loc: Adult Floor BSA: 2 Study Date: 05/02/2015 Pt. Type: Inpatie nt Tape: Referring: Josue Bee ([id number]) Referring: YUDITH Reading: Josue Bee ([id number]) Tile Layer Drainage: Rosibel Garcia Diagnosis: CPT Codes: *Echo Full (50133) *Spectral Doppler (80135) *Color Doppler (47601) Indication: Pericarditis BP: 129/67 SUMMARY: 1. There is a trivial pericardial effusi on. There is no evidence of tamponade or constrictive physiology. 2. The left ventricular chamber size is normal. Left ventricular wall thickness is normal. There are no left v entricular segmental wall motion abnormalities. There is normal global le ft ventricular systolic function. The visually estimated left ve ntricular ejection fraction is 65%. 3. Right ventricular chamber size, wall thickness, and systolic function are within normal limits. 4. There is no hemodynamically significa nt valve disease. 5. See remainder of report for additiona l findings. FINDINGS: Left Ventricle The left ventricular chamber size is no rmal. Left ventricular wall thickness is norm al. There is no evidence of LVOT obstructio n. There is normal global left ventricular systolic function. The visually estimated left ventricular ejection fraction is 65%. There are no left ventricular segmental wall motion abnormalities. Doppler assessment is consistent with n ormal left sided filling pressure. Left Atrium The left atrium is normal in size. 30 m l/m2 by volume index. Right Ventricle Right ventricular chamber size, wall th ickness, and systolic function are within normal limits. The estimated pulmonary artery systolic pressure is 21 mmHg. The estimated right atrial pressure is 3 mmHg. Right Atrium The right atrium appears normal. Aortic Valve The aortic valve is tricuspid. Focal aortic leaflet calcification is v isualized. Systolic excursion of the aortic valve is normal. There is aortic annular calcification. There is no evidence of aortic valve st enosis. There is a trace of aortic regurgitatio n present. Mitral Valve The mitral valve leaflets are mildly th ickened. There is trace mitral regurgitation pre sent. Tricuspid Valve The tricuspid valve appears normal in s tructure and function. There is trace tricuspid regurgitation present. Pulmonic Valve The pulmonic valve appears normal in st ructure and function. There is trace pulmonic regurgitation p resent. Pericardium A trivial pericardial effusion is visua lized. A pericardial fat pad is visualized. There is no echo evidence of pericardia l tamponade. Aorta The aortic root is normal in size. The ascending aorta is normal in size. Pulmonary Artery The main pulmonary artery appears sonia l. Venous The inferior vena cava appears normal i n size. There is a greater than 50% respiratory change in the inferior vena cava dimension. [facility] [place] Two-dimensional echo, spectral Doppler and color Doppler performed. Chambers 2D Value Units (Range) IVSd (2D) 1.1 cm LVPWd (2D) 1 cm IVS:LVPW ratio (2D) 1.1 ratio LVIDd (2D) 4.5 cm LVIDs (2D) 2.5 cm LVIDd (2D) index 2.2 cm/m2 LVIDs (2D) index 1.3 cm/m2 LV FS (2D) 44 % EF Teichholz (2D) 75 % Ao root diameter (2D3.2 cm (2.1 - 3.6) Ascending Ao 3.3 cm (2 - 3.5) Volumes/Mass Value Units (Range) LA Area 4 CH 21 cm2 (<21) LA ESV BP (A/L) inde29.9 ml/m2 RA AREA 4CH 14 cm2 LA ESV SP 4CH (MOD) 60.5 ml LA ESV SP 2CH (MOD) 45.6 ml LV mass (2D) 166.7 g LV mass (2D) index 83.3 g/m2 Diastolic/Systolic Function Value Units (Range) MV E-wave Vmax 0.9 m/sec MV deceleration yecp161.4 msec MV A-wave Vmax 0.7 m/sec MV E:A ratio 1.2 ratio LV septal e' Vmax 0.1 m/sec LV E:e' septal ratio8.6 ratio Tricuspid Valve Value Units (Range) TR Vmax 2.1 m/sec TR peak gradient 18.3 mmHg RAP 3 mmHg RVSP 21 mmHg Measurement Trending Name 05/02/2015 01/23/2015 01/22/2015 LVIDd (2D) 4.45 3.62 LVIDs (2D) 2.5 1.63 Wall Motion: Segment Name Rest Base-Anteroseptal Normal Base-Anterior Normal Base-Anterolateral Normal Base-Posterolateral Normal Base-Inferior Normal Base-Inferoseptal Normal Mid-Anteroseptal Normal Mid-Anterior Normal Mid-Anterolateral Normal Mid-Posterolateral Normal Mid-Inferior Normal Mid-Inferoseptal Normal [place]-Septal Normal [place]-Anterior Normal [place]-Lateral Normal [place]-Inferior Normal [place]-Tip Normal This report has been electronically sign ed by: _ Josue Bee MD 05/02/2015 13:43:54 Images reviewed [facility] Josue Bee MD ECHO ORDERABLES (ABNORMAL) Differential, Automated (05/02/2015 3:57 AM EDT) [facility] gist Method Time Signature Neutrophils % 90.8 % CERNER MILLENNIUM Neutr Abs (ANC) 8.98 (H) 1.50 - CERNER 6.30 MILLENNIUM x10(3)/mc L Lymphocytes % 5.8 % CERNER MILLENNIUM Lymphocytes Abs 0.6 (L) 1.0 - 3.6 CERNER x10(3)/mc MILLENNIUM L Monocytes % 2.6 % CERNER MILLENNIUM Monocyte Abs 0.3 0.2 - 1.0 CERNER x10(3)/mc MILLENNIUM L Eosinophils % 0.6 % CERNER MILLENNIUM Eosinophils Abs 0.1 0.0 [...] Location / / Volume Laterality Blood specimen 05/02/2015 3:57 AM 015 4:04 (specimen) EDT AM EDT Resulting Agency Comment Spec In Lab Josue Bee MD HEMATOLOGY ORDERABLES Performing Organization Address City/State/ZIP Code Phon e Number [place] [phone] CERNER MILLENNIUM (ABNORMAL) Hemogram (05/02/2015 3:57 AM EDT) athologist Signature WBC 9.9 4.0 - 10.0 CERNER x10(3)/mcL MILLENNIUM RBC 5.07 3.93 - CERNER 5.22 MILLENNIUM x10(6)/mcL Hemoglobin 13.6 11.2 - CERNER 15.7 gm/dL MILLENNIUM Hematocrit 40.0 34.0 - CERNER 45.0 % MILLENNIUM MCV 78.9 (L) 79.0 - CERNER 94.0 fL MILLENNIUM MCH 26.8 26.6 - CERNER 32.2 pg MILLENNIUM MCHC 34.0 32.0 - CERNER 36.5 gm/dL MILLENNIUM Platelets 336 145 - 370 CERNER x10(3)/mcL MILLENNIUM RDWSD 42.1 35.0 - CERNER 46.0 fL MILLENNIUM RDWCV 14.8 (H) 10.9 - CERNER 14.4 % MILLENNIUM MPV 9.2 9.0 - 12.0 [facility]L [facility] Spec[facility] Anatomical Collection Method Collection Time Receive d Time (Source) Location / / Volume Laterality Blood specimen 05/02/2015 3:57 AM 015 4:04 (specimen) EDT AM EDT Resulting Agency Comment Spec In Lab Josue Bee MD HEMATOLOGY ORDERABLES Performing Organization Address City/State/ZIP Code Phon e Number [address] [facility] Magnesium (05/02/2015 3:57 AM EDT) P athologist Signature Magnesium 0.83 0.69 - 1.07 CERNER mmol/L [facility] Specimen Anatomical Collection Method Collection Time Receive d Time (Source) Location / / Volume Laterality Blood specimen 05/02/2015 3:57 AM 015 4:04 (specimen) EDT AM EDT Resulting Agency Comment Spec In Lab Josue Bee MD CHEMISTRY ORDERABLES Performing Organization Address City/[facility]/ZIP Code Phon e Number [address] [facility] (ABNORMAL) Basic Metabolic Panel (non-fasting) (05/02/2015 3:57 AM EDT) athologist Signature Glucose Lvl 133 65 - 199 CERNER mg/dL MILLENNIUM Comment: Diabetes: >=200 mg/dL plus symp toms BUN 11 8 - 18 mg/dL CERNER MILLENNIUM Creatinine 0.75 0.70 - 1.20 mg/dL CERNER MILL ENNIUM Comment: Please note that the pediatric reference intervals supplied above were [place] validated [place] [facility] [place] Results from pediatri c patients should be interpreted in conjunction to the patient's age, height and muscle mass. Sodium 141 135 - 145 mmol/L CERNER JARETH NIUM [...] - 107 mmol/L CERNER MILLENN IUM CO2 27 22 - 31 mmol/L CERNER MILLENNI UM Anion Gap 16 (H) 5 - 15 mmol/L CERNER MILLENNIU M Calcium 8.1 (L) 8.5 - 10.5 mg/dL CERNER JARETH NIUM Estimated GFR >60 >=60 CERNER MILLENNIU M Comment: This estimated GFR (eGFR) value [...] the following links into your internet browser. [email or web address] [email or web address] Specimen Anatomical Collection Method Collection Time Receive d Time (Source) Location / / Volume Laterality Blood specimen 05/02/2015 3:57 AM 015 4:04 (specimen) EDT AM EDT Resulting Agency Comment Spec In Lab Josue Bee MD CHEMISTRY ORDERABLES Performing Organization Address City/State/ZIP Code Phon e Number [place] [phone] CERNER MILLENNIUM Differential, Automated (05/01/2015 9:47 PM EDT) P athologist Signature Neutrophils % 75.9 % CERNER MILLENNIUM Neutr Abs (ANC) 5.72 1.50 - CERNER 6.30 MILLENNIUM x10(3)/mcL Lymphocytes % 13.0 % CERNER MILLENNIUM Lymphocytes Abs 1.0 1.0 - 3.6 CERNER x10(3)/mcL MILLENNIUM Monocytes % 9.0 % CERNER MILLENNIUM Monocyte Abs 0.7 0.2 - 1.0 CERNER x10(3)/mcL MILLENNIUM Eosinophils % 1.7 % CERNER MILLENNIUM Eosinophils Abs 0.1 0.0 - 0.5 CERNER x10(3)/mcL MILLENNIUM Basophils % 0.3 % CERNER MILLENNIUM Basophils Abs 0.0 0.0 - 0.2 CERNER x10(3)/mcL MILLENNIUM Immature Gran % 0.10 % CERNER MILLENNIUM [...] Location / / Volume Laterality Blood specimen 05/01/2015 9:47 PM 015 9:53 (specimen) EDT PM EDT Resulting Agency Comment Spec In Lab Farzaneh Valera MD HEMATOLOGY ORDERABLES Performing Organization Address City/State/[place] [address] CERNER MILLENNIUM (ABNORMAL) Hemogram (05/01/2015 9:47 PM EDT) P athologist Signature WBC 7.5 4.0 - 10.0 CERNER x10(3)/mcL MILLENNIUM RBC 5.02 3.93 - CERNER 5.22 MILLENNIUM x10(6)/mcL Hemoglobin 13.3 11.2 - CERNER 15.7 gm/dL MILLENNIUM Hematocrit 39.5 34.0 - CERNER 45.0 % MILLENNIUM MCV 78.7 (L) 79.0 - CERNER 94.0 fL MILLENNIUM MCH 26.5 (L) 26.6 - CERNER 32.2 pg MILLENNIUM MCHC 33.7 32.0 - CERNER 36.5 gm/dL MILLENNIUM Platelets 360 145 - 370 CERNER x10(3)/mcL MILLENNIUM RDWSD 42.1 35.0 - CERNER 46.0 fL MILLENNIUM RDWCV 14.8 (H) 10.9 - CERNER 14.4 % MILLENNIUM MPV 9.1 9.0 - 12.0 CERNER fL MILLENNIUM Specimen Anatomical Collection Method Collection Time Receive d Time (Source) Location / / Volume Laterality Blood specimen 05/01/2015 9:47 PM 015 9:53 (specimen) EDT PM EDT Resulting Agency Comment Spec In Lab Farzaneh Valera MD HEMATOLOGY ORDERABLES Performing Organization Address City/State/[place] [address] CERNER MILLENNIUM Cardiac Enzymes (05/01/2015 9:47 PM EDT) P athologist Signature Troponin-T <0.03 <=0.03 CERNER ng/mL MILLENNIUM Comment: 0.03 ng/mL: Represents the 99th percenti [...] consensus document of the Joint Society of Cardiology/[place] [employer] o f [employer] Committee for the redefinition of myocardial infarction. ? ?Journal of the [place] [employer] 2000; 36: 959-969] CK, Total 83 0 - 160 unit/L [facility] Specimen Anatomical Collection Method Collection Time Receive d Time (Source) Location / / Volume Laterality Blood specimen 05/01/2015 9:47 PM 015 9:53 (specimen) EDT PM EDT Resulting Agency Comment Spec In Lab Josue Bee MD CHEMISTRY ORDERABLES Performing Organization Address City/State/[place] [address] [place] Request For 2nd Read CT Chest (05/01/2015 4:57 PM EDT) Anatomical Region Laterality Modality Chest Other Specimen (Source) Anatomical Collection Method Collection Time Re ceived Time Location / / Volume Laterality 05/01/2015 4:57 PM EDT Impressions 05/01/2015 5:39 PM EDT IMPRESSION: 1. ??No pulmonary emboli. 2. ??Interval resolution of the previous ly seen bilateral pleural effusions. 3. ??Mild/moderate sized pericardial eff usion, slightly increased when compared with the prior CT scan. This report was reviewed by Eber díaz at 05/01/2015 5:34 PM Film and interpretation reviewed by the attending Narrative 05/01/2015 5:39 PM EDT EXAMINATION: OUTSIDE CT CHEST CLINICAL HISTORY: SOB, chest pain; What Modality is the exam? CT Scan; Body Part (please add comments as necessary): PE p rotocol; I believe a reinterpretation of this exam may alter care of Patient. Yes TECHNIQUE: Reinterpretation of outside C T scan. CT scan chest with contrast. COMPARISON: CT scan chest 01/24/2015. FINDINGS: No pulmonary artery filling defect. The heart is normal in size. There is a mild/moderate sized pericardial effusion , slightly increased when compared with the prior CT scan. There has been interval resolution of th e previously seen bilateral pleural effusions. Minimal atelectasis or scarri ng is visualized in the lung bases. A 3 mm nodular opacity in the right uppe r lobe (series 1, image 21) is unchanged. An air cyst in the right uppe r lobe is also unchanged. No focal consolidation is visualized. Two small low-density lesions in the alicia er are too small to characterize, but statistically likely represent cysts. Th e remaining visualized portions of the upper abdomen are unremarkable. No suspicious osseous lesions. Sclerotic focus in the mid thoracic vertebrae is most consistent with a bone island. Procedure Note Eber Morales MD - 05/01/2015Form atting of this note might be different from the original. EXAMINATION: OUTSIDE CT CHEST CLINICAL HISTORY: SOB, chest pain; What Modality is the exam? CT Scan; Body Part (please add comments as necessary): PE p rotocol; I believe a reinterpretation of this exam may alter care of Patient. Yes TECHNIQUE: Reinterpretation of outside C T scan. CT scan chest with contrast. COMPARISON: CT scan chest 01/24/2015. FINDINGS: No pulmonary artery filling defect. The heart is normal in size. There is a mild/moderate sized pericardial effusion , slightly increased when compared with the prior CT scan. There has been interval resolution of th e previously seen bilateral pleural effusions. Minimal atelectasis or scarri ng is visualized in the lung bases. A 3 mm nodular opacity in the right uppe r lobe (series 1, image 21) is unchanged. An air cyst in the right uppe r lobe is also unchanged. No focal consolidation is visualized. Two small low-density lesions in the alicia er are too small to characterize, but statistically likely represent cysts. Th e remaining visualized portions of the upper abdomen are unremarkable. No suspicious osseous lesions. Sclerotic focus in the mid thoracic vertebrae is most consistent with a bone island. IMPRESSION IMPRESSION: 1. No pulmonary emboli. 2. Interval resolution of the previously seen bilateral pleural effusions. 3. Mild/moderate sized pericardial effus ion, slightly increased when compared with the prior CT scan. This report was reviewed by Eber díaz at 05/01/2015 5:34 PM Film and interpretation reviewed by the attending Alla Melendrez MD IMG OUTSIDE INTERPRETATION O RDERABLES EKG 12 Lead (05/01/2015 4:42 PM EDT) Component Value Ref Range Test Analysis Performed Pathologis t Method Time At Signature Ventricular rate 78 BPM MUSE SYSTEM Atrial Rate 78 BPM MUSE SYSTEM P-R Interval 146 ms MUSE SYSTEM QRS Duration 98 ms MUSE SYSTEM Q-T Interval 422 ms MUSE SYSTEM QTC Calculated 481 ms MUSE SYSTEM (Bezet) Calculated P Briscoe 33 degrees MUSE SYSTEM Calculated R Briscoe -20 degrees MUSE SYSTEM Calculated T Briscoe -9 degrees MUSE SYSTEM INTERPRETATION Normal sinus rhythm MUSE SYSTEM Consider Inferior infarct (cited on or before 22-JAN-2015) Poor R-wave progression Nonspecific T wave abnormality Abnormal ECG Confirmed by MD Denson Douglas ([id number]) on 05/02/2015 10:09:17 A M Specimen Anatomical Collection Method Collection Time Receive d Time (Source) Location / / Volume Laterality 05/01/2015 4:42 PM 5 EDT 10:09 AM EDT Alla Melendrez MD ECG ORDERABLES Performing Organization Address City/State/ZIP Code Phon e Number MUSE SYSTEM Troponin T (05/01/2015 4:40 PM EDT) P athologist Signature Troponin-T <0.03 <=0.03 CERNER ng/mL MILLENNIUM Comment: 0.03 ng/mL: Represents the 99th percenti [...] consensus document of the Joint Society of Cardiology/[place] [employer] o f [employer] Committee for the redefinition of myocardial infarction. ? ?Journal of the [place] [employer]iology 2000; 36: 959-969] Specimen Anatomical Collection Method Collection Time Receive d Time (Source) Location / / Volume Laterality Blood specimen Venous Draw / 05/01/2015 4:40 PM 2014 5:08 (specimen) Unknown EDT PM EDT Resulting Agency Comment Spec In Lab Alla Melendrez MD CHEMISTRY ORDERABLES Performing Organization Address City/State/[place] [address] CERNER MILLENNIUM Gold Tube HOLD (05/01/2015 4:40 PM EDT) P athologist Signature Gold Hold Sample in CERNER lab. MILLENNIUM Specimen Anatomical Collection Method Collection Time Receive d Time (Source) Location / / Volume Laterality Blood specimen Venous Draw / 05/01/2015 4:40 PM 2014 4:55 (specimen) Unknown EDT PM EDT Alla Melendrez MD CHEMISTRY ORDERABLES Performing Organization Address City/State/[place] [address] CERNER MILLENNIUM (ABNORMAL) Differential, Automated (05/01/2015 4:40 PM EDT) Patholo gist Method Time Signature Neutrophils % 83.5 % CERNER MILLENNIUM Neutr Abs (ANC) 7.30 (H) 1.50 - CERNER 6.30 MILLENNIUM x10(3)/mc L Lymphocytes % 9.4 % CERNER MILLENNIUM Lymphocytes Abs 0.8 (L) 1.0 - 3.6 CERNER x10(3)/mc MILLENNIUM L Monocytes % 5.4 % CERNER MILLENNIUM Monocyte Abs 0.5 0.2 - 1.0 CERNER x10(3)/mc MILLENNIUM L Eosinophils % 1.4 % CERNER MILLENNIUM Eosinophils Abs 0.1 0.0 [...] Location / / Volume Laterality Blood specimen 05/01/2015 4:40 PM 015 4:55 (specimen) EDT PM EDT Resulting Agency Comment Spec In Lab Alla Melendrez MD HEMATOLOGY ORDERABLES Performing Organization Address City/State/[place] [address] CERNER MILLENNIUM (ABNORMAL) Hemogram (05/01/2015 4:40 PM EDT) P athologist Signature WBC 8.7 4.0 - 10.0 CERNER x10(3)/mcL MILLENNIUM RBC 5.23 (H) 3.93 - CERNER 5.22 MILLENNIUM x10(6)/mcL Hemoglobin 13.7 11.2 - CERNER 15.7 gm/dL MILLENNIUM Hematocrit 41.8 34.0 - CERNER 45.0 % MILLENNIUM MCV 79.9 79.0 - CERNER 94.0 fL MILLENNIUM MCH 26.2 (L) 26.6 - CERNER 32.2 pg MILLENNIUM MCHC 32.8 32.0 - CERNER 36.5 gm/dL MILLENNIUM Platelets 382 (H) 145 - 370 CERNER x10(3)/mcL MILLENNIUM RDWSD 41.9 35.0 - CERNER 46.0 fL MILLENNIUM RDWCV 14.5 (H) 10.9 - CERNER 14.4 % MILLENNIUM MPV 9.6 9.0 - 12.0 CERNER fL MILLENNIUM Specimen Anatomical Collection Method Collection Time Receive d Time (Source) Location / / Volume Laterality Blood specimen 05/01/2015 4:40 PM 015 4:55 (specimen) EDT PM EDT Resulting Agency Comment Spec In Lab Alla Melendrez MD HEMATOLOGY ORDERABLES Performing Organization Address City/State/[place] [address] CERNER MILLENNIUM Prothrombin Time (05/01/2015 4:40 PM EDT) P athologist Signature PT 13.4 12.0 - 15.0 CERNER sec MILLENNIUM Comment: Transfusion Committee Guidelines: INR less than 2.0, PTT less than OR equal to 43.5 seconds, or Fibrinogen greater t fernandes or equal to 100 mg/dl indicate adequate procoagulant activity for hemos tasis in patients without underlying bleeding disorders. INR 1.0 0.9 - 1.1 [facility] Specimen Anatomical Collection Method Collection Time Receive d Time (Source) Location / / Volume Laterality Blood specimen 05/01/2015 4:40 PM 015 4:55 (specimen) EDT PM EDT Resulting Agency Comment Spec In Lab Alla Melendrez MD HEMATOLOGY ORDERABLES Performing Organization Address City/[facility]/ZIP Code Phon e Number [address] [facility] APTT (05/01/2015 4:40 PM EDT) athologist Signature PTT 34 25 - 35 sec [facility] Comment: Recommended therapeutic PTT range for fu ll dose unfractionated heparin is 80-114 seconds. Specimen Anatomical Collection Method Collection Time Receive d Time (Source) Location / / Volume Laterality Blood specimen 05/01/2015 4:40 PM 015 4:55 (specimen) EDT PM EDT Resulting Agency Comment Spec In Lab Alla Melendrez MD HEMATOLOGY ORDERABLES Performing Organization Address [facility] Code Phon e Number [address] [facility] pro-Brain Natriuretic Peptide (05/01/2015 4:40 PM EDT) P athologist Signature ProBNP 65 <=125 pg/mL [facility] Specimen Anatomical Collection Method Collection Time Receive d Time (Source) Location / / Volume Laterality Blood specimen 05/01/2015 4:40 PM 015 4:55 (specimen) EDT PM EDT Resulting Agency Comment Spec In Lab Alla Melendrez MD CHEMISTRY ORDERABLES Performing Organization Address City/[facility] Phon e Number [address] [facility] M[facility] (ABNORMAL) Electrolytes panel (05/01/2015 4:40 PM EDT) athologist Signature Sodium 139 135 - 145 CERNER mmol/L MILLENNIUM Potassium 3.1 (L) 3.5 - 5.0 CERNER mmol/L MILLENNIUM Comment: Please note: ??Patients with WBC >100,00 0 may have falsely elevated Potassium levels. ??For accurate Potassium quantif ication in these patients send serum separator tube (gold top) for subsequent determinations. ??Contact the Clinical Chemistry Laboratory if there are any qu estions. Chloride 95 (L) 98 - 107 mmol/L CERNER MILLENN IUM CO2 29 22 - 31 mmol/L CERNER MILLENNI UM Anion Gap 15 5 - 15 mmol/L CERNER MILLENNIU M Specimen Anatomical Collection Method Collection Time Receive d Time (Source) Location / / Volume Laterality Blood specimen 05/01/2015 4:40 PM 015 4:55 (specimen) EDT PM EDT Resulting Agency Comment Spec In Lab Alla Melendrez MD CHEMISTRY ORDERABLES Performing Organization Address [facility]/ZIP [facility] Phon e Number [address] CERNER MILLENNIUM BUN (05/01/2015 4:40 PM EDT) athologist Signature BUN 9 8 - 18 CERNER mg/dL MILLENNIUM Specimen Anatomical Collection Method Collection Time Receive d Time (Source) Location / / Volume Laterality Blood specimen 05/01/2015 4:40 PM 015 4:55 (specimen) EDT PM EDT Resulting Agency Comment Spec In Lab Alla Melendrez MD CHEMISTRY ORDERABLES Performing Organization Address [facility] Phon e Number [address] CERNER MILLENNIUM Glucose, random (05/01/2015 4:40 PM EDT) athologist Signature Glucose Lvl 105 65 - 199 CERNER mg/dL MILLENNIUM Comment: Diabetes: >=200 mg/dL plus symp toms Specimen Anatomical Collection Method Collection Time Receive d Time (Source) Location / / Volume Laterality Blood specimen 05/01/2015 4:40 PM 015 4:55 (specimen) EDT PM EDT Resulting Agency Comment Spec In Lab Alla Melendrez MD CHEMISTRY ORDERABLES Performing Organization Address City/[facility]/ZIP Code Phon e Number [address] BECKIE FLORES Creatinine (05/01/2015 4:40 PM EDT) athologist Signature Creatinine 0.77 0.70 - 1.20 CERNER mg/dL [facility] Comment: Please note that the pediatric reference intervals supplied above were not validated [place] [facility] [place] Results from pediatri c patients should be interpreted in conjunction to the patient's age, height and muscle mass. Estimated GFR >60 >=60 CERNER PURNIMAIU M Comment: This estimated GFR (eGFR) value [...] the following links into your internet browser. [email or web address] [email or web address] Specimen Anatomical Collection Method Collection Time Receive d Time (Source) Location / / Volume Laterality Blood specimen 05/01/2015 4:40 PM 015 4:55 (specimen) EDT PM EDT Resulting Agency Comment Spec In Lab Alla Melendrez MD CHEMISTRY ORDERABLES Performing Organization Address [facility]/ZIP [facility] Phon e Number [address] [facility] documented in this encounter Visit Diagnoses Diagnosis Pericardial effusion Unspecified disease of pericardium Pericarditis Unspecified disease of pericardium Antiphospholipid antibody syndrome Primary hypercoagulable state documented in this encounter Administered Medications Inactive Administered Medications - up to 3 most recent administrations Medication Order MAR Action Action Date Dose Rate Site acetaminophen (TYLENOL) tablet Given 05/02/2015 10:49 PM EDT 650 mg 650 mg 650 mg, Oral, EVERY 4 HOURS PRN, Starting on 05/02/15 at 0322, Until 05/03/15 at 0934, Pain, Maximum dose of acetaminophen is 4000 mg from all sources in 24 hours., Routine Given 05/02/2015 11:19 AM EDT 650 mg Given 05/02/2015 3:30 AM EDT 650 mg acetaminophen (TYLENOL) tablet 975 mg Given 05/03/2015 9:46 AM EDT 975 mg 975 mg, Oral, EVERY 6 HOURS PRN, Starting on 05/03/15 at 0945, Until 05/03/15 at 1638, Pain, Maximum dose of acetaminophen is 4000 mg from all sources in 24 hours., Routine aspirin EC tablet 81 mg Given 05/03/2015 8:23 AM EDT 81 mg 81 mg, Oral, 2 TIMES DAILY, First dose (after last modification) on 05/02/15 at 0900, Until Discontinued, Routine Given 05/02/2015 9:21 PM EDT 81 mg Given 05/02/2015 9:22 AM EDT 81 mg aspirin tablet 325 mg Given 05/03/2015 1:29 AM EDT 325 mg 325 mg, Oral, ONCE, 1 dose, On 05/03/15 at 0030, Routine colchicine (COLCRYS) tablet 0.6 mg Given 05/03/2015 8:22 AM EDT 0.6 mg 0.6 mg, Oral, DAILY, First dose on 05/02/15 at 0000, Until Discontinued, Maximum dose: 2.4 mg/ 24 hours, Routine Given 05/02/2015 12:37 AM EDT 0.6 mg hydrochlorothiazide (HYDRODIURIL) tablet 25 Given 05/03/2015 10:35 AM EDT 25 mg mg 25 mg, Oral, DAILY, First dose on 05/03/15 at 0900, Until Discontinued, Routine hydroxychloroquine (PLAQUENIL) tablet 20 0 mg Given 05/03/2015 8:22 AM EDT 200 mg 200 mg, Oral, 2 TIMES DAILY, First dose on 05/02/15 at 0900, Until Discontinued, Routine Given 05/02/2015 9:21 PM EDT 200 mg Given 05/02/2015 9:23 AM EDT 200 mg ibuprofen (ADVIL;MOTRIN) tablet 600 mg Given 05/02/2015 12:59 PM EDT 600 mg 600 mg, Oral, ONCE, 1 dose, On 05/02/15 at 1315, Administer orally with milk or food to minimize GI irritation. Maximum dose of 3200 mg from all sources in 24 hours, Routine ibuprofen (ADVIL;MOTRIN) tablet 800 mg Given 05/03/2015 1:50 PM EDT 800 mg 800 mg, Oral, EVERY 8 HOURS PRN, Starting on 05/03/15 at 1010, Until 05/03/15 at 1638, Pain, Administer orally with milk or food to minimize GI irritation. Maximum dose of 3200 mg from all sources in 24 hours, Routine levothyroxine (SYNTHROID) tablet 125 mcg Given 05/02/2015 9:21 PM EDT 125 mcg 125 mcg, Oral, EVERY MORNING, First dose on Mon05/01/15 at 2345, Until Discontinued, Routine Given 05/02/2015 12:38 AM EDT 125 mcg loratadine (CLARITIN) tablet 10 mg Given 05/03/2015 8:23 AM EDT 10 mg 10 mg, Oral, DAILY, First dose on 05/02/15 at 0900, Until Discontinued Given 05/02/2015 9:23 AM EDT 10 mg methyl salicylate-menthol (BENGAY) 15-10 % cream Given 05/03/2015 8:25 AM EDT Topical (Top), 2 TIMES DAILY, First dose on Mon05/01/15 at 2315, Until Discontinued Given 05/02/2015 9:22 PM EDT Given 05/02/2015 9:25 AM EDT potassium chloride (K-DUR/KLOR-CON) extended Given 12:35 AM EDT 60 mEq release tablet 60 mEq 60 mEq, Oral, ONCE, 1 dose, On Mon05/01/15 at 2200, 20 mEq tablet may be dissolved in water for administration, Routine predniSONE (DELTASONE) tablet 20 mg Given 05/03/2015 8:23 AM EDT 20 mg 20 mg, Oral, DAILY, First dose on 05/02/15 at 0000, Until Discontinued, Routine Given 05/02/2015 12:37 AM EDT 20 mg simvastatin (ZOCOR) tablet 20 mg Given 05/03/2015 6:41 AM EDT 20 mg 20 mg, Oral, NIGHTLY, First dose on Mon05/01/15 at 2300, Until Discontinued, Routine Given 05/02/2015 9:23 AM EDT 20 mg sodium chloride 0.9 % flush 5 mL Given 05/03/2015 8:27 AM EDT 5 mLs 5 mL, Intravenous, 2 TIMES DAILY, First dose on Mon05/01/15 at 2200, Until Discontinued, Routine Given 05/02/2015 9:22 PM EDT 5 mLs Given 05/02/2015 12:36 AM EDT 5 mLs sodium chloride 0.9 % flush 5 mL Given 05/02/2015 9:22 PM EDT 5 mLs 5 mL, Intravenous, EVERY 12 HOURS, First dose on Mon05/01/15 at 2145, Until Discontinued, Day of Surgery (Day of Procedure), Routine sodium chloride 0.9% infusion New Bag 05/02/2015 12:47 AM EDT 100 mL/hr 100 mL/hr 100 mL/hr, Intravenous, ONCE, 1 dose, On Mon05/01/15 at 2145, Day of Surgery (Day of Procedure) documented in this encounter Active and Recently Administered Medications Times are shown in EDT. Scheduled Medication Order 05/01/2015 05/02/2015 05/03/2015 aspirin EC tablet 81 mg (CANCELED) 921 (Given - Provider: Lyle Dixon RN)2120 (Given - Provider: Anita Zazueta, RN) 822 (Given - Provider: Lyle Dixon, KALA) 81 mg, Oral, 2 TIMES DAILY, First dose o n 05/02/15 at 0900, Until Discontinued, Routine aspirin tablet 325 mg (COMPLETED) 128 (Given - Provider: Anita Zazueta, KALA) 325 mg, Oral, ONCE, 1 dose, 05/03/15 at 0030, Routine colchicine (COLCRYS) tablet 0.6 mg (CANCELED) 003 (Given - Provider: Jennifer Rodriges RN) 08 (Given - Provider: Lyle zurita RN) 0.6 mg, Oral, DAILY, First dose on Sat at 0000, Until Discontinued, Maximum dose: 2.4 mg/ 24 hours, Routine hydrochlorothiazide (HYDRODIURIL) tablet 25 mg (CANCELED) 1035 (Given - Provider: Lyle Dixon, KALA) 25 mg, Oral, DAILY, First dose on Sun at 0900, Until Discontinued, Routine hydroxychloroquine (PLAQUENIL) tablet 200 mg (CANCELED) 922 (Given - Provider: Lyle Dixon RN)2120 (Given - Provider: Anita Zazueta RN) 08 (Given - Provider: Lyle Dixon RN) 200 mg, Oral, 2 TIMES DAILY, First dose on 05/02/15 at 0900, Until Discontinued, Routine ibuprofen (ADVIL;MOTRIN) tablet 600 mg (COMPLETED) 125 (Given - Provider: Lyle Dixon RN) 600 mg, Oral, ONCE, 1 dose, 05/02/15 at 1315, Administer orally with milk or food to minimize GI irritation. Maximum dose of 3200 mg from all sources in 24 hours, Routine levothyroxine (SYNTHROID) tablet 125 mcg (CANCELED) 37 (Given - Provider: Jennifer Rodriges RN)2120 (Given - Provider: Anita Zazueta RN) 125 mcg, Oral, EVERY MORNING, First dose on Mon05/01/15 at 2345, Until Discontinued, Routine loratadine (CLARITIN) tablet 10 mg (CANCELED) 922 (Given - Provider: Lyle Dixon RN) 822 (Given - Provider: Lyle zurita RN) 10 mg, Oral, DAILY, First dose on 05/02/15 at 0900, Until Dis continued methyl salicylate-menthol (BENGAY) 15-10 % cream (CANCELED) 27 (Given - Provider: Jennifer Rodriges RN)924 (Given - Provider: Lyle Dixon RN)2121 (Given - Provider: Anita Zazueta RN) 08 (Given - Provider: Lyle Dixon RN) Topical (Top), 2 TIMES DAILY, First dose on Mon05/01/15 at 2315 potassium chloride (K-DUR/KLOR-CON) extended release tablet 60 mEq (COMPLETED) 003 (Given - Provider: Jennifer Rodriges RN) 60 mEq, Oral, ONCE, 1 dose, Mon05/01/15 at 2200, 20 mEq tablet may be dissolved in water for administration, Routine predniSONE (DELTASONE) tablet 20 mg (CANCELED) 003 (Given - Provider: Jennifer Rodriges RN) 08 (Given - Provider: Lyle zurita RN) 20 mg, Oral, DAILY, First dose on Mon at 0000, Until Discontinued, Routine simvastatin (ZOCOR) tablet 20 mg (CANCELED) 2300 (Not Given - Provider: Jennifer Rodriges RN - Reason: See comment - Comment: pt took in the am) 0923 (Given - Provider: Lyle Dixon RN - Comment: patient takes this in the morning; requested this morning) 0641 (Given - Provider: Ella Youngblood) 20 mg, Oral, NIGHTLY, First dose on Mon05/01/15 at 2300, Until Discontinued, Routine sodium chloride 0.9 % flush 5 mL (CANCELED) 0036 (Given - Provider: Jennifer Rodriges RN)0900 (Not Given - Provider: Lyle Dixon RN - Reason: Loss of access - Comment: only has one IV)2121 (Given - Provider: Anita Zazueta RN) 08 (Given - Provider: Lyle Dixon RN) 5 mL, Intravenous, 2 TIMES DAILY, First dose on Mon05/01/15 at 2200, Until Discontinued, Routine sodium chloride 0.9 % flush 5 mL (CANCELED) 2144 (Not Given - Provider: Jennifer Rodriges RN - Reason: See comment - Comment: 3 orders) 0945 (Not Given - Provider: Lyle Dixon RN - Reason: See comment - Comment: IV infusing)2121 (Given - Provider: Anita Zazueta RN) 0945 (Not Given - Provider: Lyle Dixon RN - Reason: Loss of access - Comment: flushed with am mediation pass) 5 mL, Intravenous, EVERY 12 HOURS, First dose on Mon05/01/15 at 2145, Until Discontinued, Day of Surgery (Day of Procedure), Routine sodium chloride 0.9% infusion (COMPLETED) 0047 (New Bag - Provider: Jennifer Rodriges RN) 100 mL/hr, at 100 mL/hr, Intravenous, ON CE, 1 dose, Mon05/01/15 at 2145, Day of Surgery (Day of Procedure) PRN Medication Order 05/01/2015 05/02/2015 05/03/2015 acetaminophen (TYLENOL) tablet 650 mg (CANCELED) 0330 (Given - Provider: Jennifer Rodriges, KALA)1119 (Given - Provider: Lyle Dixon, KALA)2249 (Given - Provider: Anita Zazueta RN) 650 mg, Oral, EVERY 4 HOURS PRN, Startin g 05/02/15 at 0322, Until 05/03/15 at 0934, Pain, Maximum dose of acetaminophen is 4000 mg from all sources in 24 hours., Routine acetaminophen (TYLENOL) tablet 975 mg (CANCELED) 0946 (Given - Provider: Lyle Dixon, KALA) 975 mg, Oral, EVERY 6 HOURS PRN, Startin g 05/03/15 at 0945, Until 05/03/15 at 1638, Pain, Maximum dose of acetaminophen is 4000 mg from all sources in 24 hours., Routine ibuprofen (ADVIL;MOTRIN) tablet 800 mg 1350 (Given - Provider: Lyle Dixon, KALA) 800 mg, Oral, EVERY 8 HOURS PRN, Startin g 05/03/15 at 1010, Until 05/03/15 at 1638, Pain, Administer orally with milk or food to minimize GI irritation. Maximum dose of 3200 mg from all sources in 24 hours, Routine documented in this encounter Care Teams Training And Development Professional Relationship Specialty Start Date End Date Charlene Gonzales APRN PCP - General 04/26/13 06/08/15 documented as of this encounter
--- OUTSIDE RECORDS SUMMARY | 2022-05-27 14:54 | XMS_ITS | Encounter Summary ---
:1960 Author Organization [place] [address] Care Team Providers Name Role Phone Morgan, Charleneblanco Degroot APRN Primary Care Provider Reason for Visit Reason Onset Date Comments Other 03/10/2015 appointment Encounter Details Date Type Department Care Team Description 03/10/2015 Telephone Rheumatology at [facility] Lorena Jessica Other (appointment) [facility] [place] [phone] Social History Tobacco Use Types Packs/Day [...] Telephone Encounter - Lorena Jessica RN - 03/10/2015 10:08 AM EDT Francie called and left message asking if Dr. Lowe can see her any earlier than 4:30 today. documented in this encounter Plan of Treatment Not on filedocumented as of this encounter Visit Diagnoses Not on filedocumented in this encounter Care Teams Detail Assembler Relationship Specialty Start Date End Date Charlene Morgan APRN PCP - General 04/26/13 06/08/15 documented as of this encounter
--- OUTSIDE RECORDS SUMMARY | 2022-05-27 14:54 | XMS_ITS | Encounter Summary ---
:1960 Author Organization [facility] [place] [address] Care Team Providers Name Role Phone Eddie Charleneblanco Degroot APRN Primary Care Provider Encounter Details Date Type Department Care Team Description 04/06/2015 Hospital Encounter Hematology and CLINIC, CONV [place]cology [place] [facility] Farzaneh Valera MD [facility] HEMATOLOGY/[place] [address] [place] [address] Social History Tobacco Use Types Packs/Day [...] 20 mg by 0 tablet mouth nightly. cephalexin (KEFLEX) 500 mg 0 5 05/01/2015 Capsule hydroxychloroquine 1 03/14/20152014 (PLAQUENIL) 200 mg Tablet ipratropium (ATROVENT) 0.06 1 03/16/20 15 09/09/2015 % [place], Non-Aerosol levofloxacin (LEVAQUIN) 500 0 03/19/20 15 [...] Procedure Name Priority Date/Time Associated Diagnosis Comme [facility] SURGICAL PATHOLOGY Routine 04/06/2015 3:19 PM Res ults for this REPORT EDT procedure are i n the results section. documented in this encounter Results Surgical Pathology Report (04/06/2015 3:19 PM EDT) Component Value Ref Test Analysis Performed At [facility] Method Time Signature Surgical CERNER Pathology ? [facility] Report ? Provider: ?? LOUIS SALEEM ?Pt. Name: ?? DHEERAJ YUSUF ? Acc #: ?[id number] ? Pt. ? Col Date: ?? 5 ? /Sex: ?1960,(55 years),Female ? Rec Date: ?? 04/06/2015 ? LOC: ?3K ? SURGICAL PATHOLOGY ? DIAGNOSIS ? Skin, left abdomen, punch biopsy: ?- Skin with a de ep perivascular lymphocytic infiltrate and fibroadipose ? tissue; negative for amyloidosis. See discussion. ? CR-0 ? 04/07/15 ? BJM ? 04/08/15 Verified by: ? Tanesha RAMOS, Nelson Cho ? Dermatopatholo gist ? (Electronic Si gnature) ? The attending pathologist whose signature appears o n this report has ? reviewed all diagnostic slides and has edited the massiel ss and/or ? microscopic portion of the report in rendering the fi nal pathologic ? diagnosis. ? DISCUSSION ? [place] red stains do n ot demonstrate amyloidosis. The underlying etiology ? for the lymphoid infiltrate is un clear in these sections, however, this ? could reflect a manifestation of an underlying system ic process. ? Clinicopathologic cor relation is recommended. Drs. Bragg and Davey have ? reviewed this case and concur with this diagnosis. ? ADDITIONAL STUDIES ? Special stains are performed. ? Block ? Stain ? Result ( Positive / Negative ) ? A1, A2 ?[place] Red ? Negative for misty loid. ? GROSS DESCRIPTION ? A - Labeled/Fixative: Patient's demographics, MRN, fo rmalin. ? Quantity/Size: Single, 0.4 cm diameter; excised to 0. 4 cm. ? Tissue Description: Nonoriented glistening, [place] skin punch and two ? irregular, yellow nod ular portions of subcutaneous adipose tissue measuring ? 0.2 x 0.2 x 0.2 cm and 0.5 x 0.3 x 0.3 cm. ? Sections/Processing: The skin punch is bisected, submitted as (A1). ??The ? separate portions of fat submitted in toto as (A2). ( T2) ??shb ? CLINICAL INFORMATION ? Specimen Submitted: ? A - Skin, left abdomen-fat pad biopsy, punch (3) ? [facility] ? Provider: ?? LOUIS SALEEM ?Pt. Name: ?? DHEERAJ YUSUF ? Acc #: ?[id number] ? Pt. ? Col Date: ?? 5 ? /Sex: ?1960,(55 years),Female ? Rec Date: ?? 04/06/2015 ? LOC: ?3K ? SURGICAL PATHOLOGY ? Clinical History: ? History of nodular amyloidosis ? Clinical Diagnosis: ? Rule out systemic involvement Specimen (Source) Anatomical Collection Method Collection Time Re ceived Time Location / / Volume Laterality 04/06/2015 3:19 PM EDT Louis Saleem MD PATHOLOGY/CYTOLOGY ORDERABLE S Performing Organization Address City/State/ZIP [place] [address] [facility] documented in this encounter Visit Diagnoses Not on filedocumented in this encounter Care Teams Calendering Supervisor Relationship Specialty Start Date End Date Charlene Morgan, DOMESTIC VIOLENCE ADVOCATE PCP - General 04/26/13 06/08/15 documented as of this encounter
--- OUTSIDE RECORDS SUMMARY | 2022-05-27 14:54 | XMS_ITS | Encounter Summary ---
:1960 Author Organization [facility] [place] [address] Care Team Providers Name Role Phone Charlene Morgan APRN Primary Care Provider Encounter Details Date Type Department Care Team Description 04/15/2015 Orders Only Hematology and Oncology at [facility] [place] [phone] HEMATOLOGY/ONCOLOGY [phone] [address]PT[address] [place], [place] [address] (Wo rk) Social History Tobacco [...] of this encounter Plan of Treatment Scheduled Orders Name Type Priority Associated Diagnoses Order S chedule ([facility] MSURG)BONE Procedures Routine One Time for 1 MARROW ASP PERFORMED Occurre nces starting W/BX THRU BX INCISION 2014 until 04/15/2015 ([facility] MSURG) UNILAT Procedures Routine One Time for 1 BONE MARROW BIOSPY Occurrenc es starting 04/15/2015 unti l 04/15/2015 documented as of this encounter Visit Diagnoses Not on filedocumented in this encounter Care Teams Per Diem Clerk Relationship Specialty Start Date End Date Charlene Morgan APRN PCP - General 04/26/13 06/08/15 documented as of this encounter
--- OUTSIDE RECORDS SUMMARY | 2022-05-27 14:54 | XMS_ITS | Encounter Summary ---
:1960 Author Organization [facility] [place] [address] Care Team Providers Name Role Phone Charlene Morgan APRN Primary Care Provider Encounter Details Date Type Department Care Team Description 02/24/2015 Telephone Rheumatology at [facility] In[place] [address] Social History Tobacco Use Types Packs/Day [...] Telephone Encounter - Ina Espinoza LPN - 02/24/2015 4:12 PM EDT Francie calls wondering if she can take Tylenol PM extra strength? Called and spoke with Francie and let her know it was ok to take the tylenol PM and to make sure she keeps track of all Tylenol intake ans to not exceed over 4,000 mg a day of any tylenol. I also let her know that the Tylenol PM some people feel groggy in the morning from taking it. Francie verbalized un derstanding. documented in this encounter Plan of Treatment Not on filedocumented as of this encounter Visit Diagnoses Not on filedocumented in this encounter Care Teams Dairy Clerk Relationship Specialty Start Date End Date Charlene Morgan APRN PCP - General 04/26/13 06/08/15 documented as of this encounter
--- OUTSIDE RECORDS SUMMARY | 2022-05-27 14:54 | XMS_ITS | Encounter Summary ---
:1960 Author Organization [place] [address] Care Team Providers Name Role Phone Charlene Morgan APRN Primary Care Provider Reason for Visit Reason Onset Date Comments Medication Refill 04/07/2015 Encounter Details Date Type Department Care Team Description 04/07/[address] [facility] Kristy [place]her, [place] [address] Social History Tobacco Use Types Packs/Day [...] on filedocumented in this encounter Care Teams Director Of Analytics Relationship Specialty Start Date End Date Charlene Morgan APRN PCP - General 04/26/13 06/08/15 documented as of this encounter
--- OUTSIDE RECORDS SUMMARY | 2022-05-27 14:54 | XMS_ITS | Encounter Summary ---
:1960 Author Organization [facility] Address [address] [place] [address] Care Team Providers Name Role Phone Charlene Morgan EDUARDO Primary Care Provider Encounter Details Date Type Department Care Team Description 04/06/2015 Follow-Up Hematology and Farzaneh Valera; Oncology at [facility] MD Roselia Amyloidosis; [facility] Ant iphospholipid antibody syndrome Drive [address] [place] HEMATOLOGY/ONCOLOGY [id number] DEPT. [phone] [place], [place] [address] (Wo rk) Social History Tobacco [...] encounter Progress Notes Farzaneh Valera MD - 04/09/2015 1:11 AM EDT Images from the original note were not included. Hematology Clinic [facility] [place] [id number] FOLLOW-UP PATIENT EVALUATION PROBLEM LIST: 1. Hypertension. [...] W/U to date w/ neg ECHO at [facility]. CT w/ one para-aortic 2cm LN which we will follow. Neg SPEP and 24 hour urine at [facility]. Neg fat pad biopsy. BMBx not yet completed. a. repeat CT, February 2010, with no pathologically enlarged adenopathy. Bone marrow biopsy negative for amyloid and lymphoma. B. CT February 2014 with 1cm (short axis) para-aortic LN. Otherwise negative. SPEP, SFLC remain neg. Patient Active Problem List Diagnosis ??? Cardiac tamponade ??? Acute bloody pericarditis ??? Supratherapeutic INR ??? Pleural effusion ??? S/P complete thyroidectomy ??? Amyloidosis cutis ??? 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 Followed by Severiano Pineda. W/U to date w/ neg ECHO at [facility]. CT w/ one para-aortic 2cm LN which we will follow. Neg SPEP and 24 hour urine at [facility]. Neg fat pad biopsy. [...] In addition, there is superficial anddeep perivascular Mayflower+, Lambda- plasma cell infiltrate. Please correlate with [...] LN. Otherwise negative. SPEP, SFLC remain neg. ??? Thyroid nodule ??? Lumbar disc herniation [...] in her medical condition. No new concerns. Last saw Francie, she was hospitalized with a hemorrhagic pericardial effusion. Her INR was significantly elevated. This has led to a long discussion between rheumatology and coagulation team as to whether she needs to be anticoagulated. I reviewed these notes. Francie is presently off anticoagulation and she is comfortable with this decision. Her PCP called because she appears to hemorrhage into one of her amyloid lesions. She does not remember bumping it could have. Dr. Felder I reviewed the case reports of hemorrhagic detainees amyloid. After reviewing Caity other lesions and her history, as well as the fact that she's had a recent lab evaluation and CT of the chest in January all of which showed no evidence of systemic amyloid. She alsohad a CT of chest abdomen and pelvis in 2013 with no adenopathy. In order to completely rule out systemic amyloid we decided to do a fat pad biopsy today. At the time of this dictation, the results areback negative. No other sx/sx of systemic amyloid. ROS [...] MUSCULOSKELETAL: No spinal or chest wall tenderness. LABORATORY STUDIES No results found for this [...] bilateral shins. The SQ nodules continue to progress. They bother her cosmetically. Unfortunately excision or XRT are likely to not cure problem and may not improve overall cosmetic result. Sysetmic w/u neg in past. CT today showed a single small periaortic lymph node it is essentially stable, mildly increased. Short axis is still 1 cm. Unlikely to be of any clinical significance. Dr. Whitney and I did another literature search and there really is no change in recommended therapy for cutaneous amyloid. Options for treatment all have their downside, mostly they would be disfiguring in their own right. Treatments available do not change the overall course of disease. She had a CAT scan of chest abdomen and pelvis one year ago which was negative. At the time of her pericardial effusion/hemorrhage, she had a CT of the chest which also showed no adenopathy. This was in January 2015. SPEP and serum free light chains were negative in January 2015 as well. Just to be sure there is no signs of stomach amyloid, we decided to do a fat pad biopsy today. At the time of the dictation, the results are back and they're negative for systemic amyloid. However in lymphoid interval infiltrate is noted. Significance of this is unclear. I will call the patient and recommend a bone marrow biopsy just to be sure there is no signs of an underlying lymphoma. Will plan to see her back in one year w/ Dr. Whitney. Plan cbc, cmp, sflc, spep and Quant ig At the time of the appointment. I would not plan another CAT scan for 2-3 years, unless clinically indicated. Pt seen in multidisciplinary clinic with Dr. Whitney of Dermatology. total time:30 time in counsellin Copy Maria Fournier APRN documented in this encounter Plan of Treatment Not on filedocumented as of this encounter Procedures Procedure Name Priority Date/Time Associated Comments Diagnosis IMMUNOGLOBULIN FREE STAT 04/06/2015 11:08 Amyloidosis cutis Results for this LIGHT CHAINS, SERUM AM EDT Amyloidosis procedure are in Antiphospholipid the results antibody syndrome section. IMMUNOGLOBULINS, STAT 04/06/2015 11:08 Amyloidosis cu tis Results for this QUANTITATIVE AM EDT Amyloidosis procedure are in Antiphospholipid the results antibody syndrome section. HEMOGRAM STAT 04/06/2015 11:08 Amyloidosis cut is Results for this AM EDT Amyloidosis procedure are in Antiphospholipid the results antibody syndrome section. DIFFERENTIAL, AUTOMATED STAT 04/06/2015 11:08 Amyloid osis cutis Results for this AM EDT Amyloidosis procedure are in Antiphospholipid the results antibody syndrome section. CBC (WITH DIFF) STAT 04/06/2015 11:08 Amyloidosis cut is AM EDT Amyloidosis Antiphospholipid antibody syndrome PROTEIN STAT 04/06/2015 11:08 Amyloidosis cut is Results for this ELECTROPHORESIS, SERUM AM EDT Amyloidos is procedure are in Antiphospholipid the results antibody syndrome section. COMPREHENSIVE METABOLIC STAT 04/06/2015 11:08 Amyloid osis cutis Results for this PANEL (NON-FASTING) AM EDT Amyloidosis procedure are in Antiphospholipid the results antibody syndrome section. documented in this encounter Results Free Light Chains, Serum (04/04/2016 2:00 PM EDT) P athologist Signature Mayflower Free 0.81 0.33 - [place] JIG[place] Light Chains 1.94 mg/dL [facility] Lambda Free 0.81 0.57 - [place] Light Chains 2.63 mg/dL [facility] Mayflower/Lambda 1.0000 0.2600 - [place] Free Light 1.6500 [facility] LABORATORY Specimen Anatomical Collection Method Collection Time Receive d Time (Source) Location / / Volume Laterality Blood specimen 04/04/2016 2:00 PM 016 2:07 (specimen) EDT PM EDT Resulting Agency Comment Spec In Lab Farzaneh Valera MD CHEMISTRY ORDERABLES Performing Organization Address City/[facility]/ZIP Code Phon e Number [address] (ABNORMAL) Immunoglobulins, Quantitative (04/04/2016 2:00 PM EDT) athologist Signature IgG 475 (L) 700 - 1,600 [facility] mg/dL [facility] IgA 38 (L) 70 - 400 [facility] JIGAR mg/dL [facility] IgM 82 40 - 230 [facility] JIGAR mg/dL [facility] Specimen Anatomical Collection Method Collection Time Receive d Time (Source) Location / / Volume Laterality Blood specimen 04/04/2016 2:00 PM 016 2:07 (specimen) EDT PM EDT Resulting Agency Comment Spec In Lab Farzaneh Valera MD CHEMISTRY ORDERABLES Performing Organization Address City/[facility]/ZIP [facility] [place] [address] (ABNORMAL) Protein Electrophoresis, serum (04/04/2016 2:00 PM EDT) Patholo gist Method Time Signature Total Prot 6.4 6.1 - 8.0 [facility] Elec gm/dL [facility] Albumin Elect 4.50 3.60 - [place] 6.00 [facility] gm/[facility] LABORATORY Alpha1-Globul 0.20 0.10 - [place] in 0.30 [facility] LABORATORY Alpha2-Globul 0.71 0.40 - [place] in 0.90 [facility] LABORATORY Beta Globulin 0.58 0.50 - [facility] 1.00 [facility] LABORATORY Gamma 0.42 (L) 0.50 - [facility] Globulin 1.30 [facility] LABORATORY M1 Band Comments [facility] Below [facility] SPEP Comments See Note [facility] Comment: Serum protein electrophoresis (PEP) show [...] Valera MD CHEMISTRY ORDERABLES Performing Organization Address City/[facility]/[place] [address] (ABNORMAL) Lactate Dehydrogenase (04/04/2016 2:00 PM EDT) P athologist Signature LDH 269 (H) 110 - 220 [facility] unit/L [facility] Specimen Anatomical Collection Method Collection Time Receive d Time (Source) Location / / Volume Laterality Blood specimen 04/04/2016 2:00 PM 016 2:07 (specimen) EDT PM EDT Resulting Agency Comment Spec In Lab Farzaneh Valera MD CHEMISTRY ORDERABLES Performing Organization Address City/[facility]/[place] [address] (ABNORMAL) Comprehensive metabolic panel (non-fasting) (04/04/2016 2:00 PM EDT) P athologist Signature Glucose Lvl 101 65 - 199 [facility] mg/dL [facility] Comment: Diabetes: >=200 mg/dL plus symp toms BUN 13 8 - 18 mg/dL [facility] Creatinine 0.80 0.70 - 1.20 mg/dL [facility] Comment: Please note that the pediatric reference intervals supplied above were not validated at [facility]. Results from pediatri c patients should be interpreted in conjunction to the patient's age, height and muscle mass. Sodium 144 135 - 145 mmol/L [facility] Potassium 3.7 3.5 - 5.0 mmol/L [facility] Comment: Please note: ??Patients with WBC >100,00 0 may have falsely elevated Potassium levels. ??For accurate Potassium quantif ication in these patients send serum separator tube (gold top) for subsequent determinations. ??Contact the Clinical Chemistry Laboratory if there are any qu estions. Chloride 101 98 - 107 mmol/L [facility] CO2 26 22 - 31 mmol/L [facility] Anion Gap 17 (H) 5 - 15 mmol/L [facility] Calcium 8.5 8.5 - 10.5 mg/dL [facility] Total Protein 6.7 6.1 - 8.0 gm/dL [facility] Albumin 4.4 3.2 - 5.2 gm/dL [facility] AST 23 0 - 30 unit/L [facility] ALT 19 0 - 30 unit/L [facility] Alk Phos 54 40 - 104 unit/L [facility] Total Bilirubin 0.3 0.2 - 1.3 mg/dL [facility] Bili, Direct 0.1 0.0 - 0.3 mg/dL [facility] Estimated GFR >60 >=60 [facility] Comment: This estimated GFR (eGFR) [...] the following links into your internet browser. [email or web address] Specimen Anatomical Collection Method Collection Time Receive d Time (Source) Location / / Volume Laterality Blood specimen 04/04/2016 2:00 PM 016 2:07 (specimen) EDT PM EDT Resulting Agency Comment Spec In Lab Farzaneh Valera MD CHEMISTRY ORDERABLES Performing Organization Address City/State/ZIP Code Phon e Number [place] [phone] HOSPITAL LAB[address]ORY Drive (ABNORMAL) Differential, Automated (04/06/2015 11:08 AM EDT) [facility] gist Method Time Signature Neutrophils % 85.1 % CERNER MILLENNIUM Neutr Abs (ANC) 9.06 (H) 1.50 - CERNER 6.30 MILLENNIUM x10(3)/mc L Lymphocytes % 8.6 % CERNER MILLENNIUM Lymphocytes Abs 0.9 (L) 1.0 - 3.6 CERNER x10(3)/mc MILLENNIUM L Monocytes % 4.8 % CERNER MILLENNIUM Monocyte Abs 0.5 0.2 - 1.0 CERNER x10(3)/mc MILLENNIUM L Eosinophils % 1.1 % CERNER MILLENNIUM Eosinophils Abs 0.1 0.0 - 0.5 CERNER x10(3)/mc MILLENNIUM L Basophils % 0.2 % CERNER MILLENNIUM Basophils Abs 0.0 0.0 - 0.2 CERNER x10(3)/mc MILLENNIUM L Immature Gran % 0.20 % CERNER MILLENNIUM Comment: Immature granulocytes(IG's)percentage an [...] Location / / Volume Laterality Blood specimen 04/06/2015 11:08 5 (specimen) AM EDT 11:20 AM EDT Resulting Agency Comment Spec In Lab Farzaneh Valera MD HEMATOLOGY ORDERABLES Performing Organization Address City/State/[place] [address] CERNER MILLENNIUM (ABNORMAL) Hemogram (04/06/2015 11:08 AM EDT) P athologist Signature WBC 10.6 (H) 4.0 - 10.0 CERNER x10(3)/mcL MILLENNIUM RBC 5.07 3.93 - CERNER 5.22 MILLENNIUM x10(6)/mcL Hemoglobin 13.8 11.2 - CERNER 15.7 gm/dL MILLENNIUM Hematocrit 40.6 34.0 - CERNER 45.0 % MILLENNIUM MCV 80.1 79.0 - CERNER 94.0 fL MILLENNIUM MCH 27.2 26.6 - CERNER 32.2 pg MILLENNIUM MCHC 34.0 32.0 - CERNER 36.5 gm/dL MILLENNIUM Platelets 315 145 - 370 CERNER x10(3)/mcL MILLENNIUM RDWSD 40.3 35.0 - CERNER 46.0 fL MILLENNIUM RDWCV 14.0 10.9 - CERNER 14.4 % MILLENNIUM MPV 9.4 9.0 - 12.0 CERNER fL MILLENNIUM Specimen Anatomical Collection Method Collection Time Receive d Time (Source) Location / / Volume Laterality Blood specimen 04/06/2015 11:08 5 (specimen) AM EDT 11:20 AM EDT Resulting Agency Comment Spec In Lab Farzaneh Valera MD HEMATOLOGY ORDERABLES Performing Organization Address City/[facility]/ZIP Code Phon e Number [address] CERNER MILLENNIUM (ABNORMAL) Free Light Chains, Serum (04/06/2015 11:08 AM EDT) Patholo gist Method Time Signature Mayflower Free 1.42 0.33 - CERNER Light Chains 1.94 mg/dL MILLENNIUM Lambda Free 0.84 0.57 - CERNER Light Chains 2.63 mg/dL MILLENNIUM Mayflower/Lambda 1.6905 (H) 0.2600 - CERNER Free Light 1.6500 MILLENNIUM Chain Ratio Specimen Anatomical Collection Method Collection Time Receive d Time (Source) Location / / Volume Laterality Blood specimen 04/06/2015 11:08 201 5 (specimen) AM EDT 11:20 AM EDT Resulting Agency Comment Spec In Lab Farzaneh Valera MD CHEMISTRY ORDERABLES Performing Organization Address City/[facility]/ZIP Code Phon e Number [address] CERNER MILLENNIUM (ABNORMAL) Immunoglobulins, Quantitative (04/06/2015 11:08 AM EDT) P athologist Signature IgG 628 (L) 700 - 1,600 CERNER mg/dL MILLENNIUM IgA 62 (L) 70 - 400 CERNER mg/dL MILLENNIUM IgM 150 40 - 230 CERNER mg/dL MILLENNIUM Specimen Anatomical Collection Method Collection Time Receive d Time (Source) Location / / Volume Laterality Blood specimen 04/06/2015 11:08 5 (specimen) AM EDT 11:20 AM EDT Resulting Agency Comment Spec In Lab Farzaneh Valera MD CHEMISTRY ORDERABLES Performing Organization Address City/[facility]/ZIP Code Phon e Number [address] CERNER MILLENNIUM Protein Electrophoresis, serum (04/06/2015 11:08 AM EDT) Patholo gist Method Time Signature Total Prot 6.2 6.1 - 8.0 CERNER Elec gm/dL MILLENNIUM Albumin Elect 4.10 3.60 - 6.00 CERNER gm/dL MILLENNIUM Alpha1-Globul 0.20 0.10 - 0.30 CERNER in gm/dL MILLENNIUM Alpha2-Globul 0.79 0.40 - 0.90 CERNER in gm/dL MILLENNIUM Beta Globulin 0.60 0.50 - 1.00 CERNER gm/dL MILLENNIUM Gamma 0.51 0.50 - 1.30 CERNER Globulin gm/dL MILLENNIUM M1 Band None None CERNER Detected Detected MILLENNIUM gm/dL Scan See Note CERNER MILLENNIUM Comment: Please see scanned report in Ch art Review under the D-[facility] Laboratory Heading. Specimen Anatomical Collection Method Collection Time Receive d Time (Source) Location / / Volume Laterality Blood specimen 04/06/2015 11:08 04/06/201 5 (specimen) AM EDT 11:20 AM EDT Narrative This result has an attachment that is no t available. Resulting Agency Comment Spec In Lab Farzaneh Valera MD CHEMISTRY ORDERABLES Performing Organization Address City/State/ZIP Code Phon e Number [place] [phone]OS[address] LAB[address]ORY [address] CERNER MILLENNIUM (ABNORMAL) Comprehensive metabolic panel (non-fasting) (04/06/2015 11:08 AM EDT) athologist Signature Glucose Lvl 100 65 - 199 CERNER mg/dL MILLENNIUM Comment: Diabetes: >=200 mg/dL plus symp toms BUN 14 8 - 18 mg/dL CERNER MILLENNIUM Creatinine 0.88 0.70 - 1.20 mg/dL CERNER MILL ENNIUM Comment: Please note that the pediatric reference intervals supplied above were not validated at [facility]. Results from pediatri c patients should be interpreted in conjunction to the patient's age, height and muscle mass. Sodium 141 135 - 145 mmol/L CERNER JARETH NIUM Potassium 3.9 3.5 - 5.0 mmol/L CERNER JARETH NIUM Comment: Please note: ??Patients with WBC >100,00 0 may have falsely elevated Potassium levels. ??For accurate Potassium quantif ication in these patients send serum separator tube (gold top) for subsequent determinations. ??Contact the Clinical Chemistry Laboratory if there are any qu estions. Chloride 99 98 - 107 mmol/L CERNER MILLENN IUM CO2 29 22 - 31 mmol/L CERNER MILLENNI UM Anion Gap 13 5 - 15 mmol/L CERNER MILLENNIU M Calcium 8.3 (L) 8.5 - 10.5 mg/dL CERNER JARETH NIUM Total Protein 6.6 6.1 - 8.0 gm/dL CERNER MIL LENNIUM Albumin 4.1 3.2 - 5.2 gm/dL CERNER MILLENN IUM AST 19 0 - 30 unit/L CERNER MILLENNIU M ALT 17 0 - 30 unit/L CERNER MILLENNIU M Alk Phos 67 40 - 104 unit/L CERNER MILLENN IUM Total Bilirubin 0.3 0.2 - 1.3 mg/dL BECKIE M ILLENNIUM Bili, Direct 0.1 0.0 - 0.3 mg/dL CERTAINA MILL ENNIUM Estimated GFR >60 >=60 BECKIE JAINAZAELQI Veloz Comment: This estimated GFR (eGFR) value was [...] the following links into your internet browser. [email or web address] Specimen Anatomical Collection Method Collection Time Receive d Time (Source) Location / / Volume Laterality Blood specimen 04/06/2015 11:08 5 (specimen) AM EDT 11:20 AM EDT Resulting Agency Comment Spec In Lab Farzaneh Valera MD CHEMISTRY ORDERABLES Performing Organization Address City/State/[place] [address] BECKIE FLORES documented in this encounter Visit Diagnoses Diagnosis Amyloidosis cutis Other amyloidosis Amyloidosis Amyloidosis, unspecified Antiphospholipid antibody syndrome Primary hypercoagulable state documented in this encounter Care Teams Hvac Field Service Technician Relationship Specialty Start Date End Date Charlene Morgan APRN PCP - General 04/26/13 06/08/15 documented as of this encounter
--- OUTSIDE RECORDS SUMMARY | 2022-05-27 14:54 | XMS_ITS | Encounter Summary ---
:1960 Author Organization [facility] [place] [address] Care Team Providers Name Role Phone Gonzales, Charleneblanco Degroot APRN Primary Care Provider Reason for Visit Reason Comments Follow-up Encounter Details Date Type Department Care Team Description 03/03/2015 Follow-Up Hematology and Krissy Yao Antiphosph olipid antibody Oncology at [facility] MD Ella syndrome (Primary Dx) [facility] DR Mcelroy [place] H[place]Y/[place] [id number] [place] DEPT. [phone] [place], [place] [address] Social History Tobacco Use Types [...] Sign Reading Time Taken Comments Blood Pressure 155/82 03/03/2015 10:25 AM EDT Pulse 75 03/03/2015 10:25 AM EDT Temperature 36.5 ??C (97.7 ??F) 03/03/2015 10:25 AM EDT Respiratory Rate 20 03/03/2015 10:25 AM EDT Oxygen Saturation 99% 03/03/2015 10:25 AM EDT Inhaled Oxygen Concentration - - Weight 88.8 kg (195 lb 12.3 oz) 03/03/2015 10:25 AM EDT Height 164.4 cm (5' 4.72) 03/03/2015 10:25 AM EDT Body Mass Index 32.86 03/03/2015 10:25 AM EDT documented in this encounter Progress Notes Krissy Orosco MD - 03/05/2015 3:17 PM EDT [facility] [place] [address] [facility] THROMBOSIS FOLLOW-UP DATE OF VISIT 03/03/2015 Patient Francie Yusuf 1960 PRIMARY CARE PHYSICIAN CHARLENE GONZALES APRN PRIMARY SENIOR SOFTWARE DEVELOPMENT MANAGER LIBRA LOWE MD THROMBOSIS PROBLEM LIST: 1. 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 Valera INTERVAL HISTORY: Francie Yusuf is a 55 year-old woman with history of antiphospholipid syndrome, who is seen in follow-up after hospital discharge for hemopericardium and pericarditis in the setting of supratherapeuticINR of 9. Francie has been off warfarin since her hospital discharge. I was asked to see her in hospital for management of her antiphospholipid syndrome in the setting of significant bleeding. At that time I recommended to hold off warfarin given the significant bleeding and unknown etiology of her hemopericardium. I recommended her to take low dose aspirin 81 mg PO daily which she has been taking. She denies any bleeding issues on aspirin. She denies any new headache or new neurologic symptom after being off warfarin. In interim, she was seen by Dr. Lowe who thought that her pericarditis could possibly be due to lupus. She is currently on plaquenil and prednisone. Her recent echo showed normal EFwith no evidence of pericardial effusion. She continues to feel improved. She still feels fatigue. Her chest pain has significantly improved with no dyspnea. PAST MEDICAL HISTORY Patient Active Problem List Diagnosis Code ??? [...] Supratherapeutic INR 790.92 ??? Pleural effusion 511.9 OPERATIVE PROCEDURES Past Surgical History Procedure Laterality Date ??? Bone marrow biopsy ??? Hysterectomy ??? Thyroidectomy 06/01/2012 THYROIDECTOMY, TOTAL OR COMPLETE performed by LINDA RANGEL at [facility] MAIN OR ??? Somatosensory test, any/all per. nerves, trunk or head 06/01/2012 FACIAL NERVE MONITORING, SETUP performed by LINDA RANGEL at [facility] MAIN OR MEDICATIONS Current Outpatient Prescriptions on File Prior to Visit Medication Sig Dispense Refill ??? predniSONE (DELTASONE) 20 mg Tablet Take 1 tablet by mouth daily. 30 tablet 0 ??? cetirizine (ZYRTEC) 10 mg Tablet [...] facility-administered medications on file prior to visit. ADVERSE DRUG REACTIONS Allergies as of 03/03/2015 ??? (No Known Allergies) FAMILY HISTORY History of RA - brother, father SOCIAL HISTORY Former smoker, quit 1992 Alcohol: one drink/week REVIEW OF SYSTEMS Fevers/chills/sweats No Recent infections No Unexplained weight loss No Headache/lightheadedness/syncope No Sinus pain/pressure No Oral sores/lesions/bleeding No Sore throat/dysphagia No Nosebleeds No Cough/SOB/chest pain/heart racing Chest pain improved, no SOB Nausea/vomiting/dyspepsia No Abdominal pain No Diarrhea/constipation No Urinary pain, burning, incontinence No Hematuria No Vaginal discharge/bleeding No Skin rashes/ulcers Hyperpigmentation of previous skin lesions Back/joint pain/swelling No Leg swelling/pain/redness Mild LE swelling Bruising/petechiae/bleeding/melena No Sensory/motor No Polydipsia/polyuria/heat/cold intol No Lumps/bumps/swollen glands No Other Fatigue PHYSICAL EXAMINATION BP 155/82 Pulse 75 Temp(Src) 36.5 ??C (97.7 ??F) (Temporal) Resp 20 Ht 164.4 cm (5' 4.72) Wt 88.8 kg (195 lb 12.3 oz) BMI 32.86 kg/m2 SpO2 99% GENERAL: Well-appearing, articulate white female. HEENT: Oropharynx clear; no mucosal lesions, petechiae, bleeding, thrush or ulcers. NECK: Supple; no cervical, supraclavicular or submental adenopathy. BREASTS: Exam deferred. CHEST: Clear to auscultation/percussion. No rales, rhonchi, wheezes. HEART: Regular rate and rhythm; no murmur, rub, gallop ABDOMEN: Soft, non-tender, no hepatosplenomegaly. GENITOURINARY: Exam deferred. EXTREMITIES: No clubbing, cyanosis. Mid pitting edema. No erythema, tenderness or palpable cords. No venous varicosities. No hemosiderin deposits. Peripheral pulses palpable. MUSCULOSKELETAL: Spine nontender. No acutely inflamed joints. SKIN: No ecchymoses, petechiae, ulcers or rashes. Hyperpigmented skin lesions on both LE from LYMPH: No palpable lymph nodes. NEUROLOGIC: Alert, oriented. Speech clear, coherent. No focal deficits noted. PSYCHIATRIC: Appropriate affect, no apparent distress. LABORATORY STUDIES Ref. Range 03/03/2015 11:30 Lupus Anticoag Latest Range: Neg Neg Other antiphospholipid antibodies pending RADIOGRAPHIC STUDIES None IMPRESSION Francie Yusuf is a 55 y.o. woman with history of antiphospholipid syndrome on chronic anticoagulation with warfarin since 2001 who presented with pericarditis and hemopericardium in January 2015 in the setting of supra-therapeutic INR of 9. Her pericarditis was thought to be due to SLE. She is currently on plaquenil and prednisone. Because of such a significant bleeding event, I have recommended to holdwarfarin and consider aspirin for prevention of arterial thrombosis. She has been doing well on aspirin 81 mg PO daily without recurrent neurologic symptom. I reviewed the Vanesa International Consensus Conference Criteria for Diagnosis of Antiphospholipid Syndrome: Clinical criteria consist of: 1) Vascular thrombosis (arterial, venous or small vessel), AND/OR 2) morbidity (unexplained loss after 10 weeks gestation, premature before 34 weeks due to eclampsia, severe pre-eclampsia or placental insufficiency, or recurrent loss before 10 weeks gestation) Laboratory criteria consist the presence of: 1) Lupus anticoagulant, AND/OR 2) Anticardiolipin antibody (IgM or IgG) in moderate or high titer (i.e., >/=40 MPL or GPL), AND/OR 3) Scxr-uxnf4-yzlvcksgfgmw-1 antibody (IgM or IgG) at a level >99th percentile (i.e., >100 units in [facility] laboratory). The relevant antiphospholipid antibody must be demonstrated in the plasma or serum on two occasions at least 12 weeks apart. The diagnosis of antiphospholipid syndrome should be avoided if both clinical and laboratory criteria are not met. Classification of APS should be avoided if less than 12 weeks or more than 5 years separate the positive aPL test and the clinical manifestation (Loreto Christy et al., International consensus statement on an update of the classification criteria for definite antiphospholipid syndrome. J Thromb Haemost 2006;4:295-306. Francie has history of probably arterial thrombosis based on the white matter changes on her brain imaging. She has no personal history of DVT or PE. Her history of loss at 10 weeks could possibly be spontaneous. I reviewed her previous lab in 2001 which showed elevated anticardiolipin and anti beta-2 glycoprotein antibody that were elevated, but they were not high enough to meet the [facility] criteria above.I do not know if she did have a repeat testing done at some point, but I cannot see a repeat one in [facility] system. I recommend to perform a repeat testing today. The systematic reviews by Guy et al has show that lupus anticoagulant is the most strongly relatedto thrombosis. On the other hand, isolated elevated pbua-Y2-ezywqtgoattc was weakly associated with clinical manifestaiton of APS. In a [place] study, LA positivity increased the risk of stroke 48-fold and the risk of NC 11-fold. Anti B2-GPI only double the risk of stroke but not NC. Patients with triple positive antibodies are at highest risk of thrombosis. In her case, her LA has been persistently negative which is in her favor regarding thrombotic risk. Repeat anticardiolipin antibodies and anti beta 2 glycoprotein antibodies are still pending. I reviewed the controversy about the role of anticoagulation in patients with arterial thrombosis, or non venous thrombosis. The WARSS/APASS study does not show a definite benefit for warfarin comparedto high dose aspirin (325 mg daily) for secondary prevention of stroke in patients with APS. However, the study did not mandate confirmation of persistence of the antibody over time, thus whether thosewith persistent antibodies are at higher risk for thrombosis with one or the other antithrombotic approach is unknown. Current recommendations for treatment of non-cerebral arterial thrombosis in antiphospholipid syndrome are for full anticoagulation with a plasmatic anticoagulant (e.g., heparin, warfarin), and this isbased on extrapolation from venous thromboembolism data without the existence of comparable data on arterial thrombosis. In view of this and the results of WARSS/APASS, therefore, antiplatelet agents are considered reasonable for cerebral arterial thrombosis, along with aggressive treatment of classical cardiovascular risk factors (hypertension, dyslipidemia etc.), especially in the setting of significant bleeding with warfarin. Currently there is no available of data of efficacy and safety of new oral anticoagulant in the setting of APS, therefore I would not recommend to use it at this time. At the end of our conversation, I told her that the decision of restarting anticoagulation or not will be based primarily on the her risk of recurrent bleeding in the future. Given that we now know that the etiology of her pericarditis is likely due to SLE which is now treated. Her risk of developing r ecurrent hemipericardium is going to be lower. I wonder if the concurrent use of NSAIDuse that was given to her for possible costochondritis prior to admission to [facility] was the cause of her supratherapeutic INR. While I think that continuing antiplatelet therapy with aspirin 325 mg PO daily is reasonable in hercase, I will defer the final recommendation to Dr. Lowe who knows her better than me. She will follow-up with Dr. Lowe next week. If Dr. Lowe agrees with continuing antiplatelet therapy, I would recommend to increase the dose of aspirin to 325 mg PO daily. PLAN/RECOMMENDATIONS 1. Pending anticardiolipin and anti beta2 glycoprotein antibodies. I will call her with result. 2. Continue aspirin 81 mg PO daily for now. If Dr. Lowe agrees with continuing antiplatelet therapy, then I would recommend to increase the dose of aspirin 325 mg PO daily 3. Aggressive treatment of cardiovascular risk factor: hyperlipidemia. All of her questions were answered at her satisfaction. While I won't schedule to see her back for routine follow up, she knows that she can call our office if she has any questions or concerns. I willcall her with lab result. Krissy Orosco MD Addendum 03/11/2015 Her lab again showed negative lupus anticoagulant. Her anticardiolipin IgM and anti beta 2 glycoprotein IgM were elevated, but not high enough to meet the current Vanesa criteria of antiphospholipid syndrome. The clinical significance of elevated level of these antibodies that do not meet the criteriaof APS is unknown. We will call her with result. Lab result: Ref. Range 03/03/2015 11:30 Lupus Anticoag Latest Range: Neg Neg B2GPI IgG Latest Range: <=20 unit(s) <21 B2GPI IgM Latest Range: <=20 unit(s) 59 (H) Cardiolipin IgG Latest Range: <=22 GPL unit(s) <23 Cardiolipin IgM Latest Range: <=10 MPL unit(s) 37 (H) Krissy Orosco MD [facility] documented in this encounter Plan of Treatment Not on filedocumented as of this encounter Procedures Procedure Name Priority Date/Time Associated Diagnosis Comme nts LUPUS ANTICOAGULANT Routine 03/03/2015 11:30 Antiphospholipid Results for this AM EDT antibody syndrome procedure are in the results section. BETA-2 GLYCOPROTEIN Routine 03/03/2015 11:30 Antiphospholipid Results for this ANTIBODIES AM EDT antibody syndrome procedure are in the results section. CARDIOLIPIN ANTIBODY Routine 03/03/2015 11:30 Antiphospholipid Results for this SCREEN AM EDT antibody syndrome procedure are in the results section. documented in this encounter Results (ABNORMAL) Cardiolipin Antibody Screen (03/03/2015 11:30 AM EDT) P athologist Signature Cardiolipin IgG <23 <=22 GPL CERNER unit(s) MILLENNIUM Comment: Ranges ? GPL ------- ? ------ Normal ?<23 Low Positive ? 23-35 Moderate Positive ?36 -50 High Positive ? >5 0 Cardiolipin IgM 37 (H) <=10 MPL unit(s) CERNER MILLENNIUM Comment: Ranges ?MPL ----- ?----- Normal ?<11 Low Positive ? 11-20 Moderate Positive ?21 -30 High Positive ? >3 0 Specimen Anatomical Collection Method Collection Time Receive d Time (Source) Location / / Volume Laterality Blood specimen 03/03/2015 11:30 5 2:09 (specimen) AM EDT PM EDT Resulting Agency Comment Spec In Lab Krissy Yao MD IMMUNOLOGY ORDERABLES Performing Organization Address City/[facility]/ZIP Code Phon e Number [address] [facility] Lupus Anticoagulant (03/03/2015 11:30 AM EDT) P athologist Signature Lupus Anticoag Neg Neg [facility] Specimen Anatomical Collection Method Collection Time Receive d Time (Source) Location / / Volume Laterality Blood specimen 03/03/2015 11:30 5 (specimen) AM EDT 11:46 AM EDT Resulting Agency Comment Spec In Lab Krissy Yao MD HEMATOLOGY ORDERABLES Performing Organization Address City/[facility]/ZIP Code Phon e Number [address] [facility] (ABNORMAL) Beta-2 glycoprotein antibodies (03/03/2015 11:30 AM EDT) P athologist Signature B2GPI IgG <21 <=20 CERNER unit(s) MILLENNIUM Comment: Ranges ?Units ----- ? ----- Normal ? <21 Low Positive (+) ? 21-50 Moderate Positive (+) ? 51- 100 High Positive (+) ?>1 00 B2GPI IgM 59 (H) <=20 unit(s) BECKIE FLORES Comment: Ranges ? Units ----- ?----- Normal ?<21 Low Positive (+) ? 21 -50 Moderate Positive (+) ?51-1 00 High Positive (+) ? >100 B2GPI Interp No comment BECKIE JAINYVONNEU M Specimen Anatomical Collection Method Collection Time Receive d Time (Source) Location / / Volume Laterality Blood specimen 03/03/2015 11:30 5 2:09 (specimen) AM EDT PM EDT Resulting Agency Comment Spec In Lab Krissy Yao MD IMMUNOLOGY ORDERABLES Performing Organization Address City/State/[place] [address] BECKIE FLORES documented in this encounter Visit Diagnoses Diagnosis Antiphospholipid antibody syndrome - [facility] Primary hypercoagulable state documented in this encounter Care Teams Assistant Purchasing Manager Relationship Specialty Start Date End Date Charlene Gonzales APRN PCP - General 04/26/13 06/08/15 documented as of this encounter
--- OUTSIDE RECORDS SUMMARY | 2022-05-27 14:54 | XMS_ITS | Encounter Summary ---
:1960 Author Organization [facility] [place] [address] Care Team Providers Name Role Phone Eddie Charleneblanco Degroot APRN Primary Care Provider Encounter Details Date Type Department Care Team Description 05/06/2015 Telephone Hematology and Oncology at [facility] Farzaneh urban MD [facility] Marquis kingsley HEMATOLOGY/[place] [address] [place] [address] [phone] (Wo rk) Social History Tobacco Use Types [...] this encounter Miscellaneous Notes Telephone Encounter - Farzaneh Valera MD - 05/06/2015 3:17 PM EDT Chart reviewed. Pt recently re-admitted to cardiology with recurrent pleural effusions. Sent home onLD Prednisone. I left message on her cell phone that Dr Whitney and I had discussed her after her last appt. in light of the recurrent pericardial effusion, we want to be absolutely sure there is no signs that her amyloid has spread to be systemic. To date it is cutaneous only, in our previous workup for systemic disease was negative. However, to be complete, we would like to do a repeat bone marrow biopsy at her convenience. I called her left message with this information. My community youth secretary will call to book the sedated marrow. I suggested that getting it done within 1 month or so would be kaur. I will call her with the results, return to clinic as previously scheduled documented in this encounter Plan of Treatment Not on filedocumented as of this encounter Visit Diagnoses Not on filedocumented in this encounter Care Teams Fisher Trawl Line Relationship Specialty Start Date End Date Charlene Morgan APRN PCP - General 04/26/13 06/08/15 documented as of this encounter
--- OUTSIDE RECORDS SUMMARY | 2022-05-27 14:54 | XMS_ITS | Encounter Summary ---
:1960 Author Organization [facility] [address] Care Team Providers Name Role Phone Eddie Charleneblanco Degroot APRN Primary Care Provider Encounter Details Date Type Department Care Team Description 03/12/2015 Telephone [place] [facility], [place] [address] Social History Tobacco Use Types Packs/Day [...] this encounter Miscellaneous Notes Telephone Encounter - Arlene Patel RN - 03/12/2015 10:30 AM EDT T/c to patient and reviewed lab results and recommendations outlined below by Dr. Orosco. Patient had an opportunity to have questions answered. Arlene Patel, MSN, RN ===View-only below this line=== ----- Message ----- From: Krissy Orosco MD Sent: 03/11/2015 4:36 PM To: Arlene Patel RN Subject: please call her tomorrow Arlene, I called Francie today but went to answering machine. Please try to call her again tomorrow and review the result of antiphospholipid panel. Her lab showed elevated anticardiolipin antibody and anti beta 2 glycoprotein antibodies, but these are not high enough to meet the criteria of antiphospholipid syndrome. See my note for details. Thanks, Krissy 03/03/15 Dr. Orosco's PLAN/RECOMMENDATIONS 1. Pending anticardiolipin and anti beta2 [...] on filedocumented in this encounter Care Teams Auger Machine Offbearer Relationship Specialty Start Date End Date Charlene Morgan APRN PCP - General 04/26/13 06/08/15 documented as of this encounter
--- OUTSIDE RECORDS SUMMARY | 2022-05-27 14:54 | XMS_ITS | Encounter Summary ---
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 Hemopericardium; [place], [place] [address] Acute chest pain; [phone] Bilateral leg e dioni (Work) Social History Tobacco Use Types Packs/Day Years [...] Sign Reading Time Taken Comments Blood Pressure 145/69 02/03/2015 2:35 PM EDT Pulse 78 02/03/2015 2:35 PM EDT Temperature 36.8 ??C (98.2 ??F) 02/03/2015 2:35 PM EDT Respiratory Rate - - Oxygen Saturation 98% 02/03/2015 2:35 PM EDT Inhaled Oxygen Concentration - - Weight 91 kg (200 lb 9.6 oz) 02/03/2015 2:35 PM EDT Height 167.6 cm (5' 6) 02/03/2015 2:35 PM EDT Body Mass Index 32.38 02/03/2015 2:35 PM EDT documented in this encounter Patient Instructions Patient InstructionsPatricio Lowe MD - 02/03/2015 3:16 PM EDT 1. Chest X-ray today 2. Lab work today 3. Suggest trying full tramadol at bedtime for sleep, take with food 4. If tramadol does not work, may try oxycodone 5 mg at bedtime 5. Call if not sleeping well in 1 week 6. Restart HCTZ for blood pressure and lower extremity edema 7. If labs are consistent with lupus and show no new bleeding, will start Hydroxychloroquine (Plaquenil) and maintain Prednisone 20 mg/d documented in this encounter Progress Notes Patricio Lowe MD - 02/03/2015 2:54 PM EDT Subjective: Patient ID: Francie Yusuf is a 54 y.o. female last seen in 2012 with [...] paresthesias. No recurrence, no problems. Interval History: She presented ~1 week ago with 3 week h/o sharp chest pain 01/02/2015 with two ED visits at OSH was given Aspirin and Ibuprofen for suspicion of costocondritis. She presented to OSH (01/22/2015) with dyspnea, chest pain and a INR of 9.2. Cardiac tamponade was identified on CXR and echocardiogram. She was transferred to [facility] s/p IR guided drainage of 70cc of [...] light chains. She was placed on Aspirin by Hematology and discharged 6 days ago. She reports feeling tired and run down. This has not changed since January 02 when it all began. She continues to have have left sided chest pain that occurred following left thoracentesis. Pain is 2-3/10, but keeps her from sleeping. Has not tried tramadol for this, was nauseated when she took it. No joint pain except for swelling of legs, which began when she was in the hospital, worsened since she went home. No skin rashes. No fevers, chills Other issues: 1. LE swelling worse in [...] looking stated age in NAD. Blood pressure 145/69, pulse 78, temperature 36.8 ??C (98.2 ??F), temperature source Oral, height 167.6 cm (5' 6), weight 90.992 kg (200 lb 9.6 oz), SpO2 98 %. Skin exam: No telangectasias. Brownish elevated plaques on LE, largest is 3 cm across, most are <0.5 cm. Normal nailfold exam. No digital ulcers, cuticular overgrowth. There is lower extremity swelling. HEENT: moist mucus membranes, but chewing gum, +salivary pooling. Mild submandibular tenderness, noparotid enlargement. Neck supple JVD<5 cm. no bruits. Chest: decreased breath sounds left base Cor: RR no rub Abd: LLQ tenderness otherwise normal Joint exam UE joint exam: normal except for marichuy OA. No active synovitis Extremities: 2+ edema to mid calves Neuro: non-focal Chest X-ray: improved or stable, small left sided effusion, Assessment and Plan: Lots of issues, both acute symptomatic and chronic management in character Acute Issues A) Poor quality sleep and fatigue in association with left sided chest pain that began after drainage. 1. Tramadol trial if not able to sleep, may try oxycodone 5 mg at HS 2. If prednisone keeping her awake, may try ambien or lorazepam B) LE edema: Likely chronic venous insufficiency, no signs of right sided CHF with JVD<5. 1. Agree with plan to resume HCTZ, but would have low threshold to push dose and up it as needed Chronic Issues: The nub of the situation in this patient pivots on two questions. First, how much of her presentation was simply due to an INR of 9? Bleeding can occur in any site inthat situation. Alternatively, was underlying inflammation a co-factor whose effect was magnified byher INR? The second question is whether the past track record of coumadin in controlling her neurologic symptoms is an argument for continued therapy with this agent. 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 No matter what serological profile exists in terms of YELENA positivity, she has complementconsumption which is likely due to immune complex disease, which in the context of her positive YELENA is most c/w with systemic lupus. In other words, she does not have an isolated low titer antiphospholipid antibody in the context of a prior stroke syndrome that was defined in the [facility] study, in whichASA was equivalent to coumadin in preventing recurrences. It couldbe argued that this is closer to [facility] or that of [place]. Moreover, aspirin was a failure in primary prevention as well (See Nisha Calle) Unfortunately, there is no exact data set that accounts for the relative risk of TEAM PRIMARY CARE PHYSICIAN recurrence. Thus, it becomes one for careful and informed decision-making and I have begun this discussion with Ms. Yusuf while sorting out her sense of well-being. There are obvious things that can be done while waiting for labs to return Plan: I will see back in 5 weeks 1. Pain control and optimizing sleep with tramadol/oxycodone 2. BP control and LE edema control 3. If hypocomplementemia is present, consider loading with Plaquenil 400 mg bid for a month then tapering her prednisone. Plaquenil use has been shown to be negatively associated with APS recurrence glenis lupus population 4. Consider immunosuppression as needed 5. Remain on Aspirin and introduce topic of coumadin resumption after 1 month, when hopefully thingshave stabilized. It is an uncertain issue and I will reach out to colleagues at other institutions for their thoughts as well as discuss with hematology. Ultimately, it depends on the patient and how she weights (ASA vs Coumadin) and the chance of recurrent TEAM PRIMARY CARE PHYSICIAN clot vs recurrent bleed. In this regard,risk mitigation by careful INR monitoring is possible for bleeding, and perhaps Plaquenil use might potentiate any effect of aspirin. Level 5 follow up Patricio Lowe M.D. Addendum: Labs are appended. Chest X-ray shows resolution of pleural effusion on left. Blood count showing leukocytosis, but still has thrombocytosis and CRP of 5, both c/w inflammation despite prednisone 20 mg/d. I believe these are c/w active immune complex disease as suggested by hypocomplementemia. I will write patient and instruct for her to start Hydroxychloroquine with loading 400 mg bid beginning next week to continue for 4 weeks until follow up in late February. We will leave on aspirin until we can sort out the question of inflammatory disease. Will have complements rechecked at next visit tosee if they have normalized. Letter sent to patient Recent Results (from the past 24 hour(s)) COMPREHENSIVE METABOLIC PANEL (NON-FASTING) Result Value Ref Range Glucose Lvl 109 65 - 199 mg/dL BUN 10 8 - 18 mg/dL Creatinine 0.76 0.70 - 1.20 mg/dL Sodium 143 135 - 145 mmol/L Potassium 4.5 3.5 - 5.0 mmol/L Chloride 101 98 - 107 mmol/L CO2 28 22 - 31 mmol/L Anion Gap 14 5 - 15 mmol/L Calcium 8.5 8.5 - 10.5 mg/dL Total Protein 6.8 6.1 - 8.0 gm/dL Albumin 4.4 3.2 - 5.2 gm/dL AST 18 0 - 30 unit/L ALT 23 0 - 30 unit/L Alk Phos 88 40 - 104 unit/L Total Bilirubin 0.3 0.2 - 1.3 mg/dL Bili, Direct 0.1 0.0 - 0.3 mg/dL Estimated GFR >60 >=60 HIGH SENSITIVITY CRP Result Value Ref Range CRP High Sens 5.0 SEDIMENTATION RATE Result Value Ref Range Sed Rate 17 0 - 20 mm/hr HEMOGRAM Result Value Ref Range WBC 13.6 (*) 4.0 - 10.0 x10(3)/mcL RBC 4.46 3.93 - 5.22 x10(6)/mcL Hemoglobin 12.2 11.2 - 15.7 gm/dL Hematocrit 37.6 34.0 - 45.0 % MCV 84.3 79.0 - 94.0 fL MCH 27.4 26.6 - 32.2 pg MCHC 32.4 32.0 - 36.5 gm/dL Platelets 437 (*) 145 - 370 x10(3)/mcL RDWSD 42.9 35.0 - 46.0 fL RDWCV 14.1 10.9 - 14.4 % MPV 9.4 9.0 - 12.0 fL DIFFERENTIAL, AUTOMATED Result Value Ref Range Neutrophils % 88.6 Neutr Abs (ANC) 12.01 (*) 1.50 - 6.30 x10(3)/mcL Lymphocytes % 9.1 Lymphocytes Abs 1.2 1.0 - 3.6 x10(3)/mcL Monocytes % 1.9 Monocyte Abs 0.3 0.2 - 1.0 x10(3)/mcL Eosinophils % 0.1 Eosinophils Abs 0.0 0.0 - 0.5 x10(3)/mcL Basophils % 0.1 Basophils Abs 0.0 0.0 - 0.2 x10(3)/mcL Immature Gran % 0.20 Cheryl Gran Abs 0.03 0.00 - 0.05 x10(3)/mcL documented in this encounter Miscellaneous Notes Addendum Note - Patricio Lowe MD - 02/04/2015 12:57 PM EDT Addended by: PATRICIO LOWE on: 02/04/2015 12:57 PM Modules accepted: Orders documented in this encounter Plan of Treatment Not on filedocumented as of this encounter Procedures Procedure Name Priority Date/Time Associated Diagnosis Comme nts HEMOGRAM Routine 02/03/2015 3:53 Pericarditis in Results f or this PM EDT systemic lupus procedure are in erythematosus the results SLE (systemic lupus section. erythematosus) Anti-phospholipid antibody syndrom e Hypocomplementem ia Hemopericardium DIFFERENTIAL, Routine 02/03/2015 3:53 Pericarditis in Results for this AUTOMATED PM EDT systemic lupus procedure are in erythematosus the results SLE (systemic lupus section. erythematosus) Anti-phospholipid antibody syndrom e Hypocomplementem ia Hemopericardium SEDIMENTATION RATE Routine 02/03/2015 3:53 Pericarditis in Res ults for this PM EDT systemic lupus procedure are in erythematosus the results SLE (systemic lupus section. erythematosus) Anti-phospholipid antibody syndrom e Hypocomplementem ia Hemopericardium CBC (WITH DIFF) Routine 02/03/2015 3:53 Pericarditis in PM EDT systemic lupus erythematosus SLE (systemic lupus erythematosus) Anti-phospholipid antibody syndrom e Hypocomplementem ia Hemopericardium CRP, CARDIAC RISK (HS Routine 02/03/2015 3:53 Pericarditis in Results for this CRP) PM EDT systemic lupus procedure are in erythematosus the results SLE (systemic lupus section. erythematosus) Anti-phospholipid antibody syndrom e Hypocomplementem ia Hemopericardium COMPREHENSIVE Routine 02/03/2015 3:53 Pericarditis in Results for this METABOLIC PANEL PM EDT systemic lupus procedure are in (NON-FASTING) erythematosus the results SLE (systemic lupus section. [...] fluid. Patricio Lowe MD IMG DX ORDERABLES (ABNORMAL) Differential, Automated (02/03/2015 3:53 PM EDT) [facility] gist Method Time Signature Neutrophils % 88.6 % CERNER MILLENNIUM Neutr Abs (ANC) 12.01 (H) 1.50 - CERNER 6.30 MILLENNIUM x10(3)/mc L Lymphocytes % 9.1 % CERNER MILLENNIUM Lymphocytes Abs 1.2 1.0 - 3.6 CERNER x10(3)/mc MILLENNIUM L Monocytes % 1.9 % CERNER MILLENNIUM Monocyte Abs 0.3 0.2 [...] performed. Cheryl Gran Abs 0.03 0.00 - 0.05 x10(3)/mcL CER NER MILLENNIUM Specimen Anatomical Collection Method Collection Time Receive d Time (Source) Location / / Volume Laterality Blood specimen 02/03/2015 3:53 PM 015 4:13 (specimen) EDT PM EDT Resulting Agency Comment Spec In Lab Patricio Lowe MD HEMATOLOGY ORDERABLES Performing Organization Address City/State/[place] [address] CERNER MILLENNIUM (ABNORMAL) Hemogram (02/03/2015 3:53 PM EDT) athologist Signature WBC 13.6 (H) 4.0 - 10.0 CERNER x10(3)/mcL MILLENNIUM RBC 4.46 3.93 - CERNER 5.22 MILLENNIUM x10(6)/mcL Hemoglobin 12.2 11.2 - CERNER 15.7 gm/dL MILLENNIUM Hematocrit 37.6 34.0 - CERNER 45.0 % MILLENNIUM MCV 84.3 79.0 - CERNER 94.0 fL MILLENNIUM MCH 27.4 26.6 - CERNER 32.2 pg MILLENNIUM MCHC 32.4 32.0 - CERNER 36.5 gm/dL MILLENNIUM Platelets 437 (H) 145 - 370 CERNER x10(3)/mcL MILLENNIUM RDWSD 42.9 35.0 - CERNER 46.0 fL MILLENNIUM RDWCV 14.1 10.9 - CERNER 14.4 % MILLENNIUM MPV 9.4 9.0 - 12.0 [facility] fL [facility] Specimen Anatomical Collection Method Collection Time Receive d Time (Source) Location / / Volume Laterality Blood specimen 02/03/2015 3:53 PM 015 4:13 (specimen) EDT PM EDT Resulting Agency Comment Spec In Lab Patricio Lowe MD HEMATOLOGY ORDERABLES Performing Organization Address City/State/ZIP Code Phon e Number [address] [facility] Sedimentation rate (02/03/2015 3:53 PM EDT) P athologist Signature Sed Rate 17 0 - 20 CERNER mm/hr [facility] Specimen Anatomical Collection Method Collection Time Receive d Time (Source) Location / / Volume Laterality Blood specimen 02/03/2015 3:53 PM 015 4:13 (specimen) EDT PM EDT Resulting Agency Comment Spec In Lab Patricio Lowe MD HEMATOLOGY ORDERABLES Performing Organization Address City/[facility]/ZIP Code Phon e Number [address] [facility] High Sensitivity CRP (02/03/2015 3:53 PM EDT) P athologist Signature CRP High Sens 5.0 mg/L [facility] Comment: Interpretations: 1) For accurate cardiac risk [...] the test package insert) References: 1. Sugey TA et. al. ??AHA/CDC Scientif ic Statement: Markers of Inflammation and Cardiovascular Disease. ??Circulatio n 2003; 107:499-511 2. Ridker PM. ??Clinical applications of C-reactive protein for cardiovascular disease detection and prevention. ??Circ ulation 2003; 107:363-369 Specimen Anatomical Collection Method Collection Time Receive d Time (Source) Location / / Volume Laterality Blood specimen 02/03/2015 3:53 PM 015 4:13 (specimen) EDT PM EDT Resulting Agency Comment Spec In Lab Patricio Lowe MD CHEMISTRY ORDERABLES Performing Organization Address City/State/ZIP Code Phon e Number [place] [phone] CERNER MILLENNIUM Comprehensive metabolic panel (non-fasting) (02/03/2015 3:53 PM EDT) athologist Signature Glucose Lvl 109 65 - 199 CERNER mg/dL MILLENNIUM Comment: Diabetes: >=200 mg/dL plus symp toms BUN 10 8 - 18 mg/dL CERNER MILLENNIUM Creatinine 0.76 0.70 - 1.20 mg/dL CERNER MILL ENNIUM Comment: Please note that the pediatric reference intervals supplied above were not validated at [facility]. Results from pediatri c patients should be interpreted in conjunction to the patient's age, height and muscle mass. Sodium 143 135 - 145 mmol/L CERNER JARETH NIUM Potassium 4.5 3.5 - 5.0 mmol/L CERNER JARETH NIUM Comment: Please note: ??Patients with WBC >100,00 0 may have falsely elevated Potassium levels. ??For accurate Potassium quantif ication in these patients send serum separator tube (gold top) for subsequent determinations. ??Contact the Clinical Chemistry Laboratory if there are any qu estions. Chloride 101 98 - 107 mmol/L CERNER MILLENN IUM CO2 28 22 - 31 mmol/L CERNER MILLENNI UM Anion Gap 14 5 - 15 mmol/L CERNER MILLENNIU M Calcium 8.5 8.5 - 10.5 mg/dL CERNER JARETH NIUM Total Protein 6.8 6.1 - 8.0 gm/dL CERNER MIL LENNIUM Albumin 4.4 3.2 - 5.2 gm/dL CERNER MILLENN IUM AST 18 0 - 30 unit/L CERNER MILLENNIU M ALT 23 0 - 30 unit/L CERNER MILLENNIU M Alk Phos 88 40 - 104 unit/L CERNER MILLENN IUM Total Bilirubin 0.3 0.2 - 1.3 mg/dL CERNER M ILLENNIUM Bili, Direct 0.1 0.0 - 0.3 mg/dL CERNER MILL ENNIUM Estimated GFR >60 >=60 CERNER MILLENNIU M [...] the following links into your internet browser. [email or web address] Specimen Anatomical Collection Method Collection Time Receive d Time (Source) Location / / Volume Laterality Blood specimen 02/03/2015 3:53 PM 015 4:13 (specimen) EDT PM EDT Resulting Agency Comment Spec In Lab Patricio Lowe MD CHEMISTRY ORDERABLES Performing Organization Address City/State/ZIP Code Phon e Number [place] [phone] CERNER MILLENNIUM documented in this encounter Visit Diagnoses Diagnosis Pericarditis in systemic lupus erythemat osus Systemic lupus erythematosus SLE (systemic lupus erythematosus) Systemic lupus erythematosus Anti-phospholipid antibody syndrome Primary hypercoagulable state Hypocomplementemia Other specified disorders involving the immune mechanism Hemopericardium Acute chest pain Chest pain, unspecified Bilateral leg edema Edema Pericarditis in systemic lupus erythemat osus Systemic lupus erythematosus SLE (systemic lupus erythematosus) Systemic lupus erythematosus Anti-phospholipid antibody syndrome Primary hypercoagulable state Hypocomplementemia Other specified disorders involving the immune mechanism Hemopericardium documented in this encounter Care Teams Boiler Attendant Relationship Specialty Start Date End Date Charlene Morgan APRN PCP - General 04/26/13 06/08/15 documented as of this encounter
--- OUTSIDE RECORDS SUMMARY | 2022-05-27 14:55 | XMS_ITS | Encounter Summary ---
:1960 Author Organization [facility] [address] Care Team Providers Name Role Phone Eddie Charleneblanco Degroot APRN Primary Care Provider Encounter Details Date Type Department Care Team Description 01/22/2015 [facility] Mallory ericardial effusion Josef Cho MD with cardiac [facility] [address] [place], [place] CARD[place]OLOGY [place]PT. [id number] [place], [place] [phone] [facility] Social History Tobacco Use Types Packs/Day Years Used Date Former Smoker Cigarettes 1.5 Quit: 08/14/18 93 Alcohol Use Standard Drinks/Week Comments Yes 1 [...] 01/29/20 15 Delayed Release (E.C.) mouth daily. simvastatin (ZOCOR) 20 Take 20 mg by mouth 0 mg tablet nightly. bisacodyl (DULCOLAX) 10 Place 1 suppository 0 02/03/2015 mg Suppository rectally daily as needed. senna-docusate Take 1 tablet by 0 01/28/201501/13 (PERICOLACE) 8.6-50 mg mouth 2 times daily Tablet as needed for Constipation. predniSONE (DELTASONE) Take 1 tablet by 30 tablet 0 015 02/23/2015 20 mg Tablet mouth daily. polyethylene glycol Take 17 g by mouth 0 01/29/20 15 02/03/2015 (MIRALAX) 17 gram Powder daily as needed. in Packet fexofenadine (WAQAR) Take 180 mg by mouth 0 01/28/2015 60 mg tablet daily. acetaminophen (TYLENOL Take by mouth as 0 011 02/22/2017 EXTRA STRENGTH) 500 mg needed. Reported on tablet 09/19/2016 WARFARIN SODIUM 0 10/25/2010 5 (WARFARIN ORAL) documented as of this encounter Plan of Treatment Not on filedocumented as of this encounter Procedures Procedure Name Priority Date/Time Associated Comments Diagnosis ECHOCARDIOGRAM Routine 01/22/2015 4:04 Pericardial Results fo r this TRANSTHORACIC(LEB) PM EDT effusion with procedur e are in cardiac tamponade the result s section. documented in this encounter Results Echocardiogram Transthoracic(Leb) (01/22/2015 4:04 PM EDT) P athologist Signature EF 68 HEARTLAB SYSTEM Anatomical Region Laterality Modality Other Specimen (Source) Anatomical Location Collection Method / Collectio n Time Received Time / Laterality Volume 01/22/2015 Narrative 01/22/2015 5:01 PM EDT Procedure: ?Transthoracic Echocardiogram Patient: ?YUSUF DHEERAJ N ? (Age): 1960(54y) Med Rec#: ? [id number] ?Sex: ?F ? Site Loc: ? [facility] [place] ?Ht / Wt: ??168(cm)/93(kg) Pt. Loc: ?Electrical Manager ?BSA: ?2.02 Study Date: ?? 01/22/2015 ?Pt. Type: Inpatient Tape: ? Referring: Yury Arellano Referring: BREA MATHEW D Reading: Tanner Villasenor ([id number]) Link Wire Fabric Machine Operator: Daniel Muñoz [facility] Interpreting Fellow: Brenda Martínez ([id number]) Diagnosis: *Pericardial effusion (423.9) CPT Codes: *Echo Full (44390) *Spectral Doppler (88189) *Color Doppler (84895) BP: ? 134/84 SUMMARY: 1. There is a large circumferential anton cardial effusion. Echocardiographic findings suggest cardi ac tamponade, including right ventricular and right atrial diastolic c ollapse, respiratory variation in Doppler flows, and plethora of the IV C. ?? 2. The left ventricular chamber size is normal. ??Mild concentric left ventricular hypertrophy is observed. ??T he quantitative left ventricular ejection fraction by biplane Fisher's m ethod is 68%. ?? 3. There is no hemodynamically significa nt valve disease. 4. See remainder of report for additiona l findings. FINDINGS: ? Left Ventricle ?The left ventricular chamber size is normal. ?Mild concentric left ventricular h ypertrophy is observed. ?There is mild septal hypertrophy o f the left ventricle. ?There is normal global left ventri cular systolic function. ?The quantitative left ventricular ejection fraction by biplane Fisher's method is 68%. ?There are no left ventricular segm ental wall motion abnormalities. Left Atrium ?The left atrium is normal in size. 9 ml/m2 Right Ventricle ?Right ventricular chamber size, wa ll thickness, and systolic function are within normal limits. ?The estimated pulmonary artery sys tolic pressure is 26 mmHg. ?The estimated right atrial pressur e is 8 mmHg. Right Atrium ?The right atrium is normal in size . Aortic Valve ?The aortic valve is probably tricu spid. ?There is no evidence of aortic autumn ve thickening. ?There is no evidence of aortic autumn ve stenosis. ?There is a trace of aortic regurgi tation present. Mitral Valve ?The mitral valve appears normal in structure and function. ?There is trace mitral regurgitatio n present. Tricuspid Valve ?The tricuspid valve appears normal in structure and function. ?There is mild (1+/4+) tricuspid re gurgitation present. Pulmonic Valve ?The pulmonic valve is not well vis ualized. ?There is no evidence of pulmonic r egurgitation. Pericardium ?There is a large circumferential p ericardial effusion. ?Right ventricular diastolic collap se is present. ?Right atrial collapse is present. ?The study is consistent with cardi ac tamponade. ?A left pleural effusion is present . Pulmonary Artery ?The main pulmonary artery appears normal. Venous ?The inferior vena cava appears nor mal in size. ?There is less than 50% respiratory change in the inferior vena cava dimension consistent with elevated right atrial pressure. Misc ?There is no hemodynamically signif icant valve disease. ?See remainder of report for additi onal findings. ?Two-dimensional echo, spectral Dop pler and color Doppler performed. Chambers 2D ?Value ?Units (Range) ? IVSd (2D) ? 1.5 ?cm ? LVPWd (2D) ?1.1 ?cm ? IVS:LVPW ratio (2D) 1.3 ?ratio ? LVIDd (2D) ?3.6 ?cm ? LVIDs (2D) ?1.6 ?cm ? LVIDd (2D) index ?1.8 ?cm/m2 ? LVIDs (2D) index ?0.8 ?cm/m2 ? LV FS (2D) ?55 ? % ? EF Teichholz (2D) ?? 86 ? % ? Ao root diameter (2D3 ?cm (2.1 - 3.6) ? Ascending Ao ?3 ?cm (2 - 3.5) ? Volumes/Mass ?Value ?Units (Range) ? LA Area 4 CH ?12 ? cm2 (<21) ? LA ESV BP (A/L) inde9 ?ml/m2 ? RA AREA 4CH ? 9 ?cm2 ? LA ESV SP 4CH (MOD) 13 ? ml ? LA ESV SP 2CH (MOD) 24 ? ml ? LA ESV BP (MOD) ? 18 ? ml ? LA ESV BP (MOD) inde8.9 ?ml/m2 ? LV EDV SP 4CH (MOD) 32 ? ml ? LV ESV SP 4CH (MOD) 10 ? ml ? EF SP 4CH (MOD) ? 69 ? % ? LV EDV SP 2CH (MOD) 47 ? ml ? LV ESV SP 2CH (MOD) 12 ? ml ? EF SP 2CH (MOD) ? 74 ? % ? LV EDV BP ? 38 ? ml ? LV ESV BP ? 12 ? ml ? BP EF (MOD) ? 68 ? % ? LV mass (2D) ?159.4 ?g ? LV mass (2D) index ??78.9 ? g/m2 ? Diastolic/Systolic Function ?Value ?Units (Range) ? MV E-wave Vmax ?0.4 ?m/sec ? MV deceleration [id number] ?msec ? MV A-wave Vmax ?0.5 ?m/sec ? MV E:A ratio ?0.8 ?ratio ? LV septal e' Vmax ?? 0.1 ?m/sec ? LV E:e' septal ratio7.1 ?ratio ? Tricuspid Valve ?Value ?Units (Range) ? TR Vmax ? 2.1 ?m/sec ? TR peak gradient ?18 ? mmHg ? RAP ? 8 ?mmHg ? RVSP ?26 ? mmHg ? Measurement Trending Name ? 01/22/2015 ? LV EDV BP ?3 8 LVIDd (2D) ? 3. 62 LV ESV BP ?1 2 LA ESV BP (MOD) ?18 LVIDs (2D) ? 1. 63 Wall Motion: Segment Name ?Rest ? Base-Anteroseptal ?? Normal ? Base-Anterior ? Normal ? Base-Anterolateral ??Normal ? Base-Posterolateral Normal ? Base-Inferior ? Normal ? Base-Inferoseptal ?? Normal ? Mid-Anteroseptal ?Normal ? Mid-Anterior ?Normal ? Mid-Anterolateral ?? Normal ? Mid-Posterolateral ??Normal ? Mid-Inferior ?Normal ? Mid-Inferoseptal ?Normal ? Bos[place]-Septal ? Normal ? Bos[place]-Anterior ? Normal ? [place]-Lateral ?Normal ? [place]-Inferior ? Normal ? Bos[place]-Tip ?Normal ? This report has been electronically sign ed by: _ Tanner Villasenor. ? 01/22/2015 17:0 0:37 Images reviewed and interpretation bryn larkin [facility] Procedure Note Tanner Villasenor MD - 01/22/2015Format ting of this note might be different from the original. Procedure: Transthoracic Echocardiogram Patient: LISANDRO Gonzales (Age): [birth year](54y) Med Rec#: [id number] Sex: F Site Loc: [facility] [place] Ht / Wt: 168(cm)/93(kg) Pt. Loc: Electrical Manager BSA: 2.02 Study Date: 01/22/2015 Pt. Type: Inpatie nt Tape: Referring: Yury Arellano Referring: BREA MATHEW D Reading: Tanner Villasenor ([id number]) Link Wire Fabric Machine Operator: Daniel Muñoz [facility] Interpreting Fellow: Brenda Martínez ([id number]) Diagnosis: *Pericardial effusion (423.9) CPT Codes: *Echo Full (92629) *Spectral Doppler (15099) *Color Doppler (52455) BP: 134/84 SUMMARY: 1. There is a large circumferential anton cardial effusion. Echocardiographic findings suggest cardi ac tamponade, including right ventricular and right atrial diastolic c ollapse, respiratory variation in Doppler flows, and plethora of the IV C. 2. The left ventricular chamber size is normal. Mild concentric left ventricular hypertrophy is observed. The quantitative left ventricular ejection fraction by biplane Fisher's m ethod is 68%. 3. There is no hemodynamically significa nt valve disease. 4. See remainder of report for additiona l findings. FINDINGS: Left Ventricle The left ventricular chamber size is no rmal. Mild concentric left ventricular hypert rophy is observed. There is mild septal hypertrophy of the left ventricle. There is normal global left ventricular systolic function. The quantitative left ventricular eject ion fraction by biplane Fisher's method is 68%. There are no left ventricular segmental wall motion abnormalities. Left Atrium The left atrium is normal in size.9 ml/ m2 Right Ventricle Right ventricular chamber size, wall th ickness, and systolic function are within normal limits. The estimated pulmonary artery systolic pressure is 26 mmHg. The estimated right atrial pressure is 8 mmHg. Right Atrium The right atrium is normal in size. Aortic Valve The aortic valve is probably tricuspid. There is no evidence of aortic valve th ickening. There is no evidence of aortic valve st enosis. There is a trace of aortic regurgitatio n present. Mitral Valve The mitral valve appears normal in stru cture and function. There is trace mitral regurgitation pre sent. Tricuspid Valve The tricuspid valve appears normal in s tructure and function. There is mild (1+/4+) tricuspid regurgi tation present. Pulmonic Valve The pulmonic valve is not well visualiz ed. There is no evidence of pulmonic regurg itation. Pericardium There is a large circumferential perica rdial effusion. Right ventricular diastolic collapse is present. Right atrial collapse is present. The study is consistent with cardiac ta mponade. A left pleural effusion is present. Pulmonary Artery The main pulmonary artery appears sonia l. Venous The inferior vena cava appears normal i n size. There is less than 50% respiratory mcnair ge in the inferior vena cava dimension consistent with elevated right atrial pressure. Misc There is no hemodynamically significant valve disease. See remainder of report for additional findings. Two-dimensional echo, spectral Doppler and color Doppler performed. Chambers 2D Value Units (Range) IVSd (2D) 1.5 cm LVPWd (2D) 1.1 cm IVS:LVPW ratio (2D) 1.3 ratio LVIDd (2D) 3.6 cm LVIDs (2D) 1.6 cm LVIDd (2D) index 1.8 cm/m2 LVIDs (2D) index 0.8 cm/m2 LV FS (2D) 55 % EF Teichholz (2D) 86 % Ao root diameter (2D3 cm (2.1 - 3.6) Ascending Ao 3 cm (2 - 3.5) Volumes/Mass Value Units (Range) LA Area 4 CH 12 cm2 (<21) LA ESV BP (A/L) inde9 ml/m2 RA AREA 4CH 9 cm2 LA ESV SP 4CH (MOD) 13 ml LA ESV SP 2CH (MOD) 24 ml LA ESV BP (MOD) 18 ml LA ESV BP (MOD) inde8.9 ml/m2 LV EDV SP 4CH (MOD) 32 ml LV ESV SP 4CH (MOD) 10 ml EF SP 4CH (MOD) 69 % LV EDV SP 2CH (MOD) 47 ml LV ESV SP 2CH (MOD) 12 ml EF SP 2CH (MOD) 74 % LV EDV BP 38 ml LV ESV BP 12 ml BP EF (MOD) 68 % LV mass (2D) 159.4 g LV mass (2D) index 78.9 g/m2 Diastolic/Systolic Function Value Units (Range) MV E-wave Vmax 0.4 m/sec MV deceleration [id number] msec MV A-wave Vmax 0.5 m/sec MV E:A ratio 0.8 ratio LV septal e' Vmax 0.1 m/sec LV E:e' septal ratio7.1 ratio Tricuspid Valve Value Units (Range) TR Vmax 2.1 m/sec TR peak gradient 18 mmHg RAP 8 mmHg RVSP 26 mmHg Measurement Trending Name 01/22/2015 LV EDV BP 38 LVIDd (2D) 3.62 LV ESV BP 12 LA ESV BP (MOD) 18 LVIDs (2D) 1.63 Wall Motion: Segment Name Rest Base-Anteroseptal Normal Base-Anterior Normal Base-Anterolateral Normal Base-Posterolateral Normal Base-Inferior Normal Base-Inferoseptal Normal Mid-Anteroseptal Normal Mid-Anterior Normal Mid-Anterolateral Normal Mid-Posterolateral Normal Mid-Inferior Normal Mid-Inferoseptal Normal Bosworth-Septal Normal Bosworth-Anterior Normal Bosworth-Lateral Normal Bosworth-Inferior Normal Bosworth-Tip Normal This report has been electronically sign ed by: _ Tanner Villasenor 01/22/2015 17:00:37 Images reviewed and interpretation bryn larkin [facility] Yury Arellano MD ECHO ORDERABLES documented in this encounter Visit Diagnoses Diagnosis Pericardial effusion with cardiac tampon ronel documented in this encounter Care Teams Indoor Landscaper/Gardener Relationship Specialty Start Date End Date Charlene Morgan APRN PCP - General 04/26/13 06/08/15 documented as of this encounter
--- OUTSIDE RECORDS SUMMARY | 2022-05-27 14:55 | XMS_ITS | Encounter Summary ---
:1960 Author Organization [facility] [place] [address] Care Team Providers Name Role Phone Charlene Morgan EDUARDO Primary Care Provider Encounter Details Date Type Department Care Team Description 01/22/2015 - Hospital Intermediate Cardiac Yury Colon MD [facility] [place] [address] Pericardial 01/28/2015 Encounter Care Unit Miles Potter II, MD [facility] [place] [address] [facility] Linden Pacheco MD [facility] [place] [address] [place] [id number] Social History Tobacco Use Types Packs/Day Years [...] Sign Reading Time Taken Comments Blood Pressure 145/65 01/28/2015 4:19 PM EDT Pulse 78 01/28/2015 4:19 PM EDT Temperature 36.4 ??C (97.5 ??F) 01/28/2015 4:19 PM EDT Respiratory Rate 18 01/28/2015 4:19 PM EDT Oxygen Saturation 96% 01/28/2015 4:19 PM EDT Inhaled Oxygen Concentration - - Weight 89.6 kg (197 lb 8.5 oz) 01/28/2015 6:22 AM EDT Height 167.6 cm (5' 6) 01/22/2015 1:38 PM EDT Body Mass Index 31.88 01/22/2015 1:38 PM EDT documented in this encounter Discharge Summaries Jese Ortiz - 01/28/2015 10:01 AM EDT Discharge Summary Patient Name: Francie Yusuf Patient Age: 54 y.o. Language: Trinidadian Race: White Ethnicity: Not nor Admit date: 01/22/2015 Discharge date and time: 01/28/2015 6 PM Attending Physician: Linden Pacheco MD Discharge Physician: Jese Ortiz MD Follow-up Recommendations for Providers: Patient admitted with hemopericardium and cardiac tamponade in the setting of supratherapeutic INR. Subsequently also developed bloody pleural effusion. Both were drained. Cause remained unclear. She was reversed and coumadin stopped. Bleeding appeared to resolve. She was started on ASA 81 and also prednisone 20 mg, as rheumatology suspected autoimmune process as a potential etiology. She will follow-up closely w/ rheumatology, hematology, and primary care. Plans as follows: (1) rheum to follow-up rheum work-up and dictate prednisone course (2) hem to guide further APLA testing and consider optimal anticoagulation strategy (currently on ASA 81, may consider ASA 325 or anticoagulation pending course and work-up) (3) HCTZ was held given stable BPs and recent hemopericardium. This may be restarted if her course is stable and she requires antihypertensive therapy (4) recommend TTE in ~1-2 months to assess for any recurrence of hemopericardium (5) see labs to f/u below Inpatient Provider Contact Information: For questions regarding this document or issues relating to this hospitalization, please contact your regular Table Games Shift Manager or [facility] clinic. Issues after hours and on weekends will be handled by the Solution Engineer on-call ([phone] then ask for on-call inspector wire rope). Discharge Diagnoses (Hospital Problems) and Secondary Diagnoses (Chronic Problems): Active Hospital Problems Diagnosis ??? Cardiac tamponade ??? Acute bloody pericarditis ??? Supratherapeutic INR ??? Pleural effusion ??? Antiphospholipid antibody syndrome Resolved Hospital Problems Diagnosis Date Resolved No resolved problems to display. Active Non-Hospital Problems Diagnosis ??? S/P complete thyroidectomy ??? Amyloidosis cutis ??? Amyloidosis ??? Thyroid nodule ??? Lumbar disc herniation with radiculopathy ??? Asthma ??? Sinusitis, chronic ??? Edema of both legs ??? Miscarriage Operations/Major Procedures: 01/22 Pericardiocentesis/Drain placement (Denise) History of Presentation (per Admission H&P on 01/22/2015): Francie Yusuf is a 54 year old female with a history of antiphospholipid antibody syndrome, amyloidosis, HTN, HLD, hypothyroidism, asthma and osteoarthritis who presented in transfer on 01/22 with pericardial tamponade. Francie reports that beginning January 02, she noted gradual onset of chest pressure and discomfort, as well as progressive dyspnea. She had been seen by her PCP and in the ED twice since that time, with negative workup until this morning, when she was again seen by her PCP for acute worsening of dyspnea and chest pain overnight; she was advised by her PCP to undergo further evaluation in her local ED. She reports that her chest discomfort is intense, sharp and knot-like; she notes that itis worsened with leaning forward, kneeling, walking or climbing stairs. Workup at the outside hospital revealed pericardial tamponade and supratherapeutic INR. - Imaging: CXR: significant pericardial effusion TTE: significant pericardial effusion - Lab work: CBC: WBC 13.4, Hgb 10.3, Platelets 526, ANC 11 CMP (partial records): 130/2.9/108/27/19/0.8, AST 41, ALT 56 INR > 9.2 ProBNP 481 D-dimer 4115 - Medications: Vitamin K 2.5 mg PO KCl 40 mEq PO [facility] [place] continued care. Hospital Course: Francie was admitted to the CV on 01/22 with hemopericardium producing pericardial tamponade. The etiology of her pericardial effusion was not clear; it was thought likely secondary to supratherapeuticINR (>9.2 on initial presentation), although the etiology of her supratherapeutic INR was similarly unclear, given her long history of warfarin use without significant dietary or medication changes (although she reports new use of krill oil, which may have been a culprit). She received vitamin K and FFP, and underwent pericardiocentesis on 01/22, with ~1 L of sanguinous output. Her chest pigtail was removed on 01/23. She experienced an increased oxygen need on 01/24, with CXR showing a new large L pleural effusion; a chest tube was placed by IR on 01/25 and removed on 01/27. Rheumatology was consulted, and reported concern for pleuropericarditis secondary to an autoimmune cause and she was started on prednisone 20 mg PO daily at their recommendation. Hematology was consulted for recommendations regarding long-term anticoagulation. They noted that only one set of APLA labs were documented in the chart, and so they recommended another set of these labs once the patient has completed her prednisone course in order to confirm the diagnosis. They felt that starting ASA 81 would be reasonable with theresolution of bleeding and to consider full dose ASA or reconsidering anticoagulation in the future depending on the results of her work-up and her clinical course. On 01/28 her CXR was significantly improved, she was asymptomatic and appeared clinically stable. She experienced some mild L calf pain but DVT study was negative. She was discharged home with plans for close follow-up. Vital Signs at Discharge: BP: 145/65 mmHg, Heart Rate: 78, Temp: 36.4 ??C (97.5 ??F), Resp: 18, BMI (Calculated): 33.1 Height: 167.6 cm (5' 6) (01/22/15 1338) Weight - Scale: 89.6 kg (197 lb 8.5 oz) (01/28/15 0622) Functional and Cognitive Status: full/normal Important Studies and Lab Data: Labs: Last 3 wbc, hgb, hct plt Recent Labs 01/28/15 0342 01/27/15 0434 01/26/15 034 WBC 7.6 6.8 5.6 HGB 12.0 11.7 9.8* HCT 36.3 35.1 29.4* PLATELET 501* 472* 432* Last 3 Lytes Recent Labs 01/28/15 0342 01/27/15 04301/26/15 034 NA 140 138 141 K 3.8 4.4 3.7 CL 99 99 101 CO2 29 26 26 BUN 14 10 10 CREATININE 0.75 0.60* 0.57* Last 3 Coags Recent Labs 01/28/15 0342 01/27/15 04301/26/15 034 PT 14.6 16.2* 16.7* INR 1.1 1.2* 1.3* PTT 30 32 32 Pericardial fluid cultures - negative Pleural fluid leukemia/lymphoma screen - negative Extractable nuclear antigen panel - negative DS DNA - negative Ref. Range 01/28/2015 12:05 IgG Latest Range: 700-1600 mg/dL 721 IgA Latest Range: 70-400 mg/dL 103 IgM Latest Range: 40-230 mg/dL 176 Ref. Range 01/27/2015 09:31 C3 Complement Latest Range: 90-180 mg/dL 97 C4 Complement Latest Range: 10-40 mg/dL 2 (L) Complement Total Latest Range: 30 - 75 unit/mL 21 (L) Studies: - CXR 01/22: Increased left hemithorax opacity compatible with atelectasis and effusion partially of scarring enlarged cardiac silhouette. - CT chest 01/22: 1. Large amount of circumferential pericardial fluid, with elevated attenuation, consistent with nonsimple fluid. Cannot assess for vascular integrity or for pericardial nodules/masses in the absence of intravenous contrast. 2. Small left and very small right simple pleural effusions. 3. Partial compressive atelectasis of the lingula and left lower lobe. No gross pulmonary mass seen. - Pericardiocentesis 01/22: 780 cc of sanguinous fluid withdrawn - RUQ ultrasound 01/23: The liver is large but normal in echogenicity. There are no gallstones seen and no biliary ductal dilatation. Right pleural effusion. - 01/23 TTE: 1. Limited follow up s/p pericardiocentesis. 2. There is a small-moderate sized posterior pericardial effusion. - CXR 01/24: Large left-sided pleural effusion without change. Small right-sided pleural effusion. - CT chest 01/24: 1. Significant interval decrease in size of pericardial effusion as above. 2. Interval increase in now large left sided pleural effusion with worsening adjacent compressive lingular and left lower lobe atelectasis. There appears to be some heterogeneity of the left pleural fluid, raising possibility of blood/blood clots; vascular integrity cannot be assessed on this unenhanced exam. 3. Interval slight increase in size of small right pleural effusion. 4. Otherwise no significant interval change. - TTE 01/26: 1. Limited echocardiogram follow up for pericardial effusion 2. Global left ventricular wall motion and contractility are probably within normal limits. The visually estimated left ventricular ejection fraction is 65% The right ventricle is probably normal in size. 3. Normal valve structures 4. Normal chamber dimensions 5. There is a small posterior pericardial effusion. There is no echo or doppler evidence of pericardial tamponade. When compared to the prior 01/23/15 study, the effusion appears smaller Pending Studies and Lab Data: Free light chains YELENA SPEP Final pleural fluid cultures Final pericardial fluid AFB and fungal cultures Discharge Conditions/Prognosis: Good Discharge to: Home Updated Allergies/ADRs: No Known Allergies Immunizations Given this Hospitalization: Immunization History Administered Date(s) Administered ??? Influenza Vaccine w/Preservative, Split 05/13/2013 Discharge Medications: Your Medications New Medications Dose Details aspirin 81 mg Tbec Take 1 tablet by mouth daily. 81 mg Refills: 0 bisacodyl 10 mg Supp Commonly known as: DULCOLAX Place 1 suppository rectally daily as needed. 10 mg Refills: 0 polyethylene glycol 17 gram Pwpk Commonly known as: MIRALAX Take 17 g by mouth daily as needed. 17 g Refills: 0 predniSONE 20 mg Tab Commonly known as: DELTASONE Take 1 tablet by mouth daily. 20 mg Quantity: 30 tablet Refills: 0 senna-docusate 8.6-50 mg Tab Commonly known as: PERICOLACE Take 1 tablet by mouth 2 times daily as needed for Constipation. 1 tablet Refills: 0 Continued medications with new dosing Dose Details levothyroxine 112 mcg Tab Commonly known as: SYNTHROID Take 112 mcg by mouth daily. What changed: Another medication with the same name was removed. Continue taking this medication, and follow the directions you see here. 112 mcg Refills: 0 Continued medications, unchanged Dose Details albuterol 90 mcg/actuation Hfaa Commonly known as: PROVENTIL HFA;VENTOLIN HFA;PROAIR Inhale 2 puffs into the lungs every 4 hours as needed for Wheezing. Use with spacer 2 puff Refills: 0 calcium-vitamin D 500 mg(1,250mg) -200 unit Tab Take 1 tablet by mouth daily. 1 tablet Refills: 0 Levalbuterol Tartrate 45 mcg/actuation Hfaa Inhale 1-2 puffs into the lungs every 4 hours as needed for Wheezing. 1-2 puff Refills: 0 omeprazole 40 mg Cpdr Commonly known as: PriLOSEC Take 40 mg by mouth daily. 40 mg Refills: 0 simvastatin 20 mg Tab Commonly known as: ZOCOR Take 20 mg by mouth nightly. 20 mg Refills: 0 TYLENOL EXTRA STRENGTH 500 mg Tab Take by mouth as needed. Take 1-2 tabs of the (500mg) Tablets Generic drug: acetaminophen Refills: 0 STOPPED Medications fexofenadine 60 mg Tab Commonly known as: WAQAR hydrochlorothiazide 25 mg Tab Commonly known as: HYDRODIURIL Gpsin-IS0-NLD-YBA-CG8-Exq-Astx 1000-130(40-80) mg Cap traMADol 50 mg Tab Commonly known as: ULTRAM WARFARIN ORAL Smoking Status at Discharge: History Smoking status ??? Former Smoker -- 1.50 packs/day ??? Types: Cigarettes ??? Quit date: 08/14/1992 Smokeless tobacco ??? Never Used Instructions Given to Patient at Discharge: Patient Instructions Instruction after leaving the hospital Why you were hospitalized: Bleeding around your heart and around your lungs (called hemopericardium and hemothorax). At this point we are unsure of the underlying cause, although your coumadin level being high likely contributed to the bleeding Call your doctor or seek medical attention if you develop the following: Chest pain, recurrent shortness of breath, leg or arm pain or swelling, bleeding, fevers, chills, lightheadedness, dizziness, orany other new or concerning symptoms Activity level: as tolerated Diet: no changes Driving: NO DRIVING with use of sedating drugs/medications and/or feeling of dizziness/lightheadedness, passing out Shower/Bath: no changes Specific instructions related to your condition: (1) The rheumatology team is concerned that the bleeding may have been related to an autoimmune condition, which is why you have been prescribed prednisone. You can continue taking 20 mg daily for now.They will decide on a further dosing when they see you in follow-up (2) For now the recommendation of the hematology team is to take a baby aspirin daily. In the futurethis may be increased to a full aspirin daily. They will also do further testing with regards to antiphospholipid antibody syndrome in the future, most likely once you are off steroids. (3) We will recommend to your primary care doctor that you have another echocardiogram (ultrasound of the heart) to make sure there is no more fluid around the heart Primary Care Provider Charlene Morgan APRN March 05 @ 8:15 AM Rheumatology provider: Since Dr. Lowe is gone currently the rheumatology will decide on who and when you will be seen and contact you with that information. You can call them if you have not heard from them by next week (call [phone] to reach the [facility] and then ask to be connected to rheumatology clinic scheduling) Hematology Provider Dr. Krissy Orosco March 03 @ 10:30 AM Your Inpatient Doctor(s) at [facility]: Attending Table Games Shift Manager: Solution Engineer: Dr. Guerra Medicine Residents: Drs. Ortiz/Tyrone General Instructions None Future Appointments Provider Department Dept Phone 03/03/2015 10:30 AM Krissy Orosco MD [facility] [phone] Discharge References/Attachments None documented in this encounter Discharge Instructions Patient InstructionsJese Ortiz - 01/27/2015 7:17 PM EDT Instruction after leaving the hospital Why you were hospitalized: Bleeding around your heart and around your lungs (called hemopericardium and hemothorax). At this point we are unsure of the underlying cause, although your coumadin level being high likely contributed to the bleeding Call your doctor or seek medical attention if you develop the following: Chest pain, recurrent shortness of breath, leg or arm pain or swelling, bleeding, fevers, chills, lightheadedness, dizziness, orany other new or concerning symptoms Activity level: as tolerated Diet: no changes Driving: NO DRIVING with use of sedating drugs/medications and/or feeling of dizziness/lightheadedness, passing out Shower/Bath: no changes Specific instructions related to your condition: (1) The rheumatology team is concerned that the bleeding may have been related to an autoimmune condition, which is why you have been prescribed prednisone. You can continue taking 20 mg daily for now.They will decide on a further dosing when they see you in follow-up (2) For now the recommendation of the hematology team is to take a baby aspirin daily. In the futurethis may be increased to a full aspirin daily. They will also do further testing with regards to antiphospholipid antibody syndrome in the future, most likely once you are off steroids. (3) We will recommend to your primary care doctor that you have another echocardiogram (ultrasound of the heart) to make sure there is no more fluid around the heart Primary Care Provider Charlene Morgan APRN March 05 @ 8:15 AM Rheumatology provider: Since Dr. Lowe is gone currently the rheumatology will decide on who and when you will be seen and contact you with that information. You can call them if you have not heard from them by next week (call [phone] to reach the [facility] and then ask to be connected to rheumatology clinic scheduling) Hematology Provider Dr. Krissy Orosco March 03 @ 10:30 AM Your Inpatient Doctor(s) at [facility]: Attending Table Games Shift Manager: Solution Engineer: Dr. Guerra Medicine Residents: Drs. Ortiz/Tyrone documented in this encounter Medications at Time of Discharge Medication Sig Dispensed Refills Start Date End Date aspirin 81 mg Tablet, Take 1 tablet by 0 01/29/20 15 Delayed Release (E.C.) mouth daily. albuterol (PROVENTIL Inhale 2 puffs into 0 HFA;VENTOLIN HFA;PROAIR) the lungs every 4 90 mcg/actuation HFA hours as needed for Aerosol Inhaler Wheezing. Use with spacer simvastatin (ZOCOR) 20 Take 20 mg by [...] gram Powder daily as needed. in Packet levothyroxine Take 125 mcg by mouth 0 11/05/2015 (SYNTHROID) 112 mcg daily. Tablet Levalbuterol Tartrate 45 Inhale 1-2 puffs into 0 09/09/2015 mcg/actuation HFA the lungs every 4 Aerosol Inhaler hours as needed for Wheezing. calcium-vitamin D 500 Take 1 tablet by 0 02/03/2015 mg(1,250mg) -200 unit mouth daily. Tablet acetaminophen (TYLENOL Take by mouth as 0 011 02/22/2017 EXTRA STRENGTH) 500 mg needed. Reported on tablet 09/19/2016 documented as of this encounter Progress Notes Krissy Orosco MD - 01/28/2015 4:41 PM EDT Images from the original note were not included. Heme/Onc Consult Followup Note Attending: Dr. Krissy Orosco Reason for Consult: Antiphospholipid syndrome Interval History: -no overnight events -chest pressure better -new left leg pain, went for doppler ultrasound -chest tube removed Scheduled Meds: ??? predniSONE 20 mg Oral Daily ??? melatonin 3 mg Oral Nightly ??? lidocaine 1 patch Transdermal Daily And ??? lidocaine 1 patch Transdermal Nightly ??? sodium chloride 0.9 % 5 mL Intravenous Q12H ??? chlorhexidine 15 mL Oral 2 times per day ??? levothyroxine 112 mcg Oral QAM ??? esomeprazole 40 mg Oral Daily ??? simvastatin 20 mg Oral QPM Continuous Infusions: ??? sodium chloride 0.9% PRN Meds:.acetaminophen, polyethylene glycol (MIRALAX)oral powder, bisacodyl, senna-docusate, promethazine OR promethazine, sodium chloride 0.9 %, lidocaine, sodium chloride 0.9%, albuterol Active Problems: Active Hospital Problems Diagnosis ??? Cardiac tamponade ??? Acute bloody pericarditis ??? Supratherapeutic INR ??? Pleural effusion ??? Antiphospholipid antibody syndrome Resolved Hospital Problems Diagnosis Date Resolved No resolved problems to display. Secondary Problems: Patient Active Problem List Diagnosis Code ??? [...] Supratherapeutic INR 790.92 ??? Pleural effusion 511.9 Last value Range last 24 hrs Temperature Temp: 36.4 ??C (97.5 ??F) Temp: [36.4 ??C (97.5 ??F)-37 ??C (98.6 ??F)] Heart Rate Heart Rate: 78 Heart Rate: [68-81] Blood Pressure BP: 145/65 mmHg BP: (128-146)/(61-85) Respiratory Rate Resp: 18 Resp: [18] SpO2 SpO2: 96 % SpO2: [96 %-100 %] Intake/Output Summary (Last 24 hours) at 01/28/15 1641 Last data filed at 01/28/15 0817 Gross per 24 hour Intake 420 ml Output 751 ml Net -331 ml Patient Vitals for the past 168 hrs: Weight 01/28/15 0622 89.6 kg (197 lb 8.5 oz) 01/27/15 0554 89.7 kg (197 lb 12 oz) 01/26/15 0444 95.437 kg (210 lb 6.4 oz) 01/25/15 0705 93 kg (205 lb 0.4 oz) 01/24/15 0610 92.1 kg (203 lb 0.7 oz) 01/23/15 0646 91.7 kg (202 lb 2.6 oz) 01/22/15 1338 92.8 kg (204 lb 9.4 oz) Constitutional: pleasant, cooperative; no apparent distress; H&N: oral mucosa - moist Cardiovascular: RRR, no m/r/g, 2+ radial and pedal pulses Respiratory: decreased breath sounds at bilateral bases (L>R) Hem/Lymph/Immuno: No palpable lymphadenopathy GI: Soft, NT, ND, no organomegaly, BS+ : No CVA tenderness Skin: multiple hyperpigmented nodules/plaques on lower extremities Neuro: no focal deficits Extremities: No peripheral edema Labs: Recent Labs 01/28/15 0342 01/27/15 0434 01/26/15 0344 WBC 7.6 6.8 5.6 HGB 12.0 11.7 9.8* HCT 36.3 35.1 29.4* PLATELET 501* 472* 432* Recent Labs 01/28/15 0342 01/27/15 0434 01/26/15 0344 NA 140 138 141 K 3.8 4.4 3.7 CL 99 99 101 CO2 29 26 26 BUN 14 10 10 CREATININE 0.75 0.60* 0.57* Recent Labs 01/24/15 0514 01/23/15 0325 01/22/15 1400 AST 16 26 33* ALT 26 33* 42* ALKPHOS 126* 119* 137* BILITOT 0.4 0.5 0.6 BILIDIR 0.2 0.2 0.2 Recent Labs 01/28/15 0342 01/27/15 0434 01/26/15 0344 CALCIUM 8.2* 8.0* 7.7* Impression/Plan: 54 year old woman with antiphospholipid syndrome presenting with a hemopericardium and left hemothorax of unclear etiology. Rheumatology suggests it is autoimmune in nature and have her on prednisone. Her pleural fluid malignant screen is negative. We are still awaiting the pericardial effusion cytology. It appears the bleeding has stopped and the chest tube was removed. Her counts are stable. In regards to prophylaxis, we recommend starting low dose Aspirin 81mg for now and eventually titrating up to 325mg. We do not recommend Coumadin at this time given her bleeding. We will have her follow up inour clinic. We do not recommend retesting for APLA right now, we would wait until after she is off prednisone before retesting. Eber Bolden MD Hematology/Oncology fellow Pager [phone]*+*+*+*+*+*+*+*+*+*+*+*+*+*+*+*+*+*+*+*+*+*+*+*+*+*+*+*+*+*+*+*+*+*+*+*+*+* Thrombosis Attending Physician I have independently interviewed and examined this patient and have personally reviewed the relevantclinical, laboratory and radiological data with Dr. Bolden, Hematology/Oncology Fellow. [facility], with which I concur, for complete details of our encounter with this patient. I have reviewed and endorse the recommendations as outlined and have made any additions/corrections below. Mrs. Yusuf is a 54 year old woman with history of antiphospholipid syndrome who has been on chronic anticoagulation with warfarin since 2001. She was admitted for hemopericardium and bloody left pleuraleffusion in the setting of supratherapeutic INR of 9. We were asked to manage her anticoagulation inthe setting of APS. Her chest pain and dyspnea have resolved after pericardiocentesis and chest tube placement. Her chest pain tube was removed yesterday without accumulation of the fluid. No malignant cell was seen on the pleural fluid. The cytology screen on the pericardial fluid is pending. DDx of her pericardial/ pleural effusion include viral infection, rheumatologic condition, malignancy. Today she complained of anew left calf pain. Ultrasound doppler was performed which showed no evidence of DVT. Given that her bleeding has subsided, I would recommend to start aspirin at 81 mg PO daily and if she is tolerating it without bleeding issues, this can be titrated up to 325 mg PO daily in the future.I explained to her that the dose of aspirin studied in the WARSS/APASS study was 325 mg daily, and it is reasonable to use that dose in this setting; however, it is not known whether this dose is superior to an 81 mg daily dose. In the setting of recent life-threatening bleeding, I recommend to start with a lower dose of aspirin 81 mg PO daily and titrate up to 325 mg PO daily after a few weeks. ?? Consider starting aspirin 81 mg PO daily and if tolerating well without bleeding in 2 weeks, can increase the dose to 325 mg PO daily ?? No ongoing anticoagulation at this point ?? Discontinue Krill oil and avoid NSAIDs while on aspirin to minimize bleeding risk ?? Will plan to see her back in 4-6 weeks for follow up and consider repeat her antiphospholipid panel at that time. Krissy Orosco MD Duyen Hansenanna Madi - 01/28/2015 5:52 AM EDT Inpatient Cardiology Progress Note: Name: Francie Yusuf : 1960 LOS: 6 days Location: [id number] ID: Francie Yusuf is a 54 year old female with a history of antiphospholipid antibody syndrome, amyloidosis, HTN, HLD, hypothyroidism, asthma and osteoarthritis who presented in transfer on 01/22 with hemopericardium producing cardiac tamponade of unclear etiology (but thought secondary to supratherapeutic INR vs ?viral pericarditis) Active Hospital Problems Diagnosis ??? Cardiac tamponade ??? Acute bloody pericarditis ??? Supratherapeutic INR ??? Pleural effusion ??? Antiphospholipid antibody syndrome Resolved Hospital Problems Diagnosis Date Resolved No resolved problems to display. Active Non-Hospital Problems Diagnosis ??? S/P complete thyroidectomy ??? Amyloidosis cutis ??? Amyloidosis ??? Thyroid nodule ??? Lumbar disc herniation with radiculopathy ??? Asthma ??? Sinusitis, chronic ??? Edema of both legs ??? Miscarriage 24 Hour Events/Subjective: - no acute events overnight - chest tube removed yesterday afternoon without complication and decreased discomfort at insertion site - ambulated without difficulty yesterday afternoon - reports new-onset L leg pain, with no associated edema, erythema, warmth - seen by hematology, with recommendation for ASA use after bleeding stops; recommended labs pending - denies chest pain, shortness of breath, reports poor sleep Telemetry: - NSR, HR 60s-90s, no ectopy Scheduled Meds: ??? predniSONE 20 mg Oral Daily ??? melatonin 3 mg Oral Nightly ??? lidocaine 1 patch Transdermal Daily And ??? lidocaine 1 patch Transdermal Nightly ??? sodium chloride 0.9 % 5 mL Intravenous Q12H ??? chlorhexidine 15 mL Oral 2 times per day ??? levothyroxine 112 mcg Oral QAM ??? esomeprazole 40 mg Oral Daily ??? simvastatin 20 mg Oral QPM Continuous Infusions: ??? sodium chloride 0.9% PRN Meds:.acetaminophen, polyethylene glycol (MIRALAX)oral powder, senna- docusate, promethazine OR promethazine, sodium chloride 0.9 %, lidocaine, sodium chloride 0.9%, albuterol Vitals: Last value Range last 24 hrs Temperature Temp: 37 ??C (98.6 ??F) Temp: [36.3 ??C (97.3 ??F)-37 ??C (98.6 ??F)] Heart Rate Heart Rate: 68 Heart Rate: [68-79] Blood Pressure BP: 128/72 mmHg BP: (126-145)/(61-85) Art BP BP (Arterial Line): 0/0 mmHg BP (Arterial Line): -- O2 Delivery Oxygen Therapy O2 Device: None (Room air) O2 Flow Rate (L/min): 2 L/min SpO2 SpO2: 96 % SpO2: [96 %-100 %] on 2 L Respiratory Rate Resp: 18 Resp: [18-20] In/Out's: Intake/Output Summary (Last 24 hours) at 01/28/15 1052 Last data filed at 01/28/15 0817 Gross per 24 hour Intake 420 ml Output 771 ml Net -351 ml Patient Vitals for the past 168 hrs: Weight 01/28/15 0622 89.6 kg (197 lb 8.5 oz) 01/27/15 0554 89.7 kg (197 lb 12 oz) 01/26/15 0444 95.437 kg (210 lb 6.4 oz) 01/25/15 0705 93 kg (205 lb 0.4 oz) 01/24/15 0610 92.1 kg (203 lb 0.7 oz) 01/23/15 0646 91.7 kg (202 lb 2.6 oz) 01/22/15 1338 92.8 kg (204 lb 9.4 oz) Exam Gen: Pleasant, mildly anxious middle-aged female, lying in bed in no acute distress HEENT: NC/AT, PERRL, EOMI, anicteric sclera, MMM Neck: Supple, no JVD CV: RRR, normal S1/S2, no murmurs, rubs or gallops appreciated Resp: CTAB, no wheezes, rales or rhonchi Abd: Soft, mildly distended, non-tender, NABS, no masses appreciated EXT: Trace LE edema in bilateral lower extremities, no cyanosis or clubbing, intact distal pulses, no associated edema, erythema or warmth in LLE Skin: Lower extremity venous stasis changes, hyperpigmented nodules over bilateral calves Labs Recent Labs 01/28/15 0342 01/27/15 0434 01/26/15 0344 WBC 7.6 6.8 5.6 HGB 12.0 11.7 9.8* HCT 36.3 35.1 29.4* PLATELET 501* 472* 432* Recent Labs 01/28/15 0342 01/27/15 0434 01/26/15 0344 NA 140 138 141 K 3.8 4.4 3.7 CL 99 99 101 CO2 29 26 26 BUN 14 10 10 CREATININE 0.75 0.60* 0.57* Recent Labs 01/28/15 0342 01/27/15 0434 01/26/15 0344 CALCIUM 8.2* 8.0* 7.7* Recent Labs 01/24/15 0514 01/23/15 0325 01/22/15 1400 BILITOT 0.4 0.5 0.6 BILIDIR 0.2 0.2 0.2 AST 16 26 33* ALT 26 33* 42* ALKPHOS 126* 119* 137* Recent Labs 01/28/15 0342 01/27/15 0434 01/26/15 0344 INR 1.1 1.2* 1.3* PTT 30 32 32 No results for input(s): CK in the last 168 hours. Invalid input(s): TROPONIN Microbiology - Calcofluor white stain: Negative - Gram stain: Negative - Pleural fluid culture: No growth (final) Imaging: - CXR 01/22: Increased left hemithorax opacity compatible with atelectasis and effusion partially of scarring enlarged cardiac silhouette. - CT chest 01/22: 1. Large amount of circumferential pericardial fluid, with elevated attenuation, consistent with nonsimple fluid. Cannot assess for vascular integrity or for pericardial nodules/masses in the absence of intravenous contrast. 2. Small left and very small right simple pleural effusions. 3. Partial compressive atelectasis of the lingula and left lower lobe. No gross pulmonary mass seen. - Pericardiocentesis 01/22: 780 cc of sanguinous fluid withdrawn - RUQ ultrasound 01/23: The liver is large but normal in echogenicity. There are no gallstones seen and no biliary ductal dilatation. Right pleural effusion. - 01/23 TTE: 1. Limited follow up s/p pericardiocentesis. 2. There is a small-moderate sized posterior pericardial effusion. - CXR 01/24: Large left-sided pleural effusion without change. Small right-sided pleural effusion. - CT chest 01/24: 1. Significant interval decrease in size of pericardial effusion as above. 2. Interval increase in now large left sided pleural effusion with worsening adjacent compressive lingular and left lower lobe atelectasis. There appears to be some heterogeneity of the left pleural fluid, raising possibility of blood/blood clots; vascular integrity cannot be assessed on this unenhanced exam. 3. Interval slight increase in size of small right pleural effusion. 4. Otherwise no significant interval change. - TTE 01/26: 1. Limited echocardiogram follow up for pericardial effusion 2. Global left ventricular wall motion and contractility are probably within normal limits. The visually estimated left ventricular ejection fraction is 65% The right ventricle is probably normal in size. 3. Normal valve structures 4. Normal chamber dimensions 5. There is a small posterior pericardial effusion. There is no echo or doppler evidence of pericardial tamponade. When compared to the prior 01/23/15 study, the effusion appears smaller Assessment Francie Yusuf is a 54 year old female with a history of antiphospholipid antibody syndrome (on warfarin), amyloidosis, HTN, HLD, hypothyroidism, asthma and osteoarthritis who presented in transfer on 01/22 with hemopericardium producing pericardial tamponade. Etiology of her pericardial effusion is not clear; likely secondary to supratherapeutic INR (>9.2 on initial presentation), although etiology of supratherapeutic INR is unclear, given her long history of warfarin use without significant dietaryor medication changes (although she reports new use of krill oil, which may have been a culprit). She underwent pericardiocentesis on 01/22, with ~1 L of sanguinous output; her chest pigtail was removedon 01/23. She experienced an increased oxygen need on 01/24, with CXR showing a new large L pleural effusion; a chest tube was placed by IR on 01/25, with ~2 L of serosanguinous output thus far. INR remains mildly elevated at 1.2 today (s/p vitamin K and FFP). Given hemopericardium and new bloody L pleural effusion, have held warfarin and administered additional vitamin K to achieve an INR ~1. 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 Hematology was consulted for further recommendations regarding long-term anticoagulation; they recommend use of ASA rather than warfarin, with additional lab work including fluid cytology, leukemia/lymphoma screen, SPEP and serum free light chains (pending). Will evaluate for re-accumulation of pleural fluid via CXR and rule out LLE DVT via duplex study; anticipate discharge to [facility] pending results of those studies, with close PCP, heme and rheum follow up. Plan: # Hemopericardium with tamponade, resolved - thought possibly secondary to supratherapeutic INR, ?viral pericarditis - s/p pericardiocentesis 01/22 - rheumatology consulted, question of pleuropericarditis secondary to autoimmune process - follow up additional lab work: YELENA, dsDNA, C3, C4, CH50, ANITA, INCOME TAX EXPERT, anti-Sm Ab - hematology consulted, seek to rule out malignancy with fluid cytology, leukemia/lymphoma screen, SPEP, serum free light chains, quantitative immunoglobulins - prednisone 20 mg PO daily - outpatient rheumatology follow up # L hemothorax - s/p L-sided thoracentesis with chest tube 01/25-01/27 - repeat CXR today # ?Antiphospholipid antibody syndrome on warfarin, with supratherapeutic INR (>9.2) on admission - continue to hold warfarin - per heme recommendation, will discharge on ASA - rule out LLE DVT with duplex study today # Routine - Chronic conditions: continue home simvastatin, synthroid, albuterol - DVT PPx: SCDs, holding warfarin at this time - GI PPx: esomeprazole 40 mg PO daily - Diet/Fluids: healthy/none - Access: PIV - CODE STATUS: FULL CODE - Dispo: possible discharge to home, pending results of CXR, LLE duplex Traci Hansen MD Internal Medicine, PGY-1 Cardiology S2 team pager # [phone] 01/28/2015 Associated attestation - Linden Pacheco MD - 01/28/2015 4:47 PM EDT Images from the original note were not included. Cardiology Staff Day of Discharge Note This patient was seen today with the team and was personally interviewed and examined. Agree with documentation by Dr. Hansen. Summary of Clinical History and Overnight Events: This patient was seen today and personally interviewed and examined. Agree with documentation by Traci Hansen MD, which I have reviewed and independently confirmed. Briefly, she has done well overnight. She had some calf tenderness this morning and we ruled out DVT with a duplex study. A CXR today showed resolution of her pleural effusion and continued reduction in her heart size. She appears stable for discharge. Discharge Planning: As this was expected to be the day of discharge, we used this daily visit as an opportunity to review: ?? Events of hospitalization ?? Discharge medications ?? Post-discharge activity including any appropriate restrictions ?? Follow-up After the above, I answered all questions. Summary of Plan: 1. Discharge today 2. Disposition: Home 3. Medication changes: Documented in formal discharge summary 4. Planned follow-up: Detailed in discharge summary. Linden Pacheco MD, [place], [facility] Edwina Escobedo PA - 01/27/2015 3:37 PM EDT VIR Note: left chest tube removal outputs < 150 cc in 24 hours, team requesting removal The retention suture/chest tube were cut and the tube removed. A sterile occlusive dressing with vaseline gauze was then applied. The patient tolerated the procedure well. No immediate complications noted. Traci Hansen - 01/27/2015 5:33 AM EDT Inpatient Cardiology Progress Note: Name: Francie Yusuf : 1960 LOS: 5 days Location: [address] [place] [address] ID: Francie Yusuf is a 54 year old female with a history of antiphospholipid antibody syndrome, amyloidosis, HTN, HLD, hypothyroidism, asthma and osteoarthritis who presented in transfer on 01/22 with hemopericardium producing cardiac tamponade of unclear etiology (but thought secondary to supratherapeutic INR vs ?viral pericarditis) Active Hospital Problems Diagnosis ??? Cardiac tamponade ??? Acute bloody pericarditis ??? Supratherapeutic INR ??? Pleural effusion ??? Antiphospholipid antibody syndrome Resolved Hospital Problems Diagnosis Date Resolved No resolved problems to display. Active Non-Hospital Problems Diagnosis ??? S/P complete thyroidectomy ??? Amyloidosis cutis ??? Amyloidosis ??? Thyroid nodule ??? Lumbar disc herniation with radiculopathy ??? Asthma ??? Sinusitis, chronic ??? Edema of both legs ??? Miscarriage 24 Hour Events/Subjective: - no acute events overnight - limited drainage overnight, ~100 cc of serosanguinous output over last 12 hours - TTE yesterday showed EF of 65%, small posterior pericardial effusion decreased from prior - reports continued discomfort at chest tube site, pain with rolling in bed or sitting up abruptly - denies chest pain, shortness of breath, reports improved sleep Telemetry: - NSR, HR 60s-80s, no ectopy Scheduled Meds: ??? predniSONE 20 mg Oral Daily ??? acetaminophen 1,000 mg Oral TID ??? melatonin 3 mg Oral Nightly ??? lidocaine 1 patch Transdermal Daily And ??? lidocaine 1 patch Transdermal Nightly ??? sodium chloride 0.9 % 5 mL Intravenous Q12H ??? chlorhexidine 15 mL Oral 2 times per day ??? levothyroxine 112 mcg Oral QAM ??? esomeprazole 40 mg Oral Daily ??? simvastatin 20 mg Oral QPM Continuous Infusions: ??? sodium chloride 0.9% PRN Meds:.HYDROmorphone OR HYDROmorphone, senna-docusate, promethazine OR promethazine, sodium chloride 0.9 %, lidocaine, sodium chloride 0.9%, albuterol, docusate sodium Vitals: Last value Range last 24 hrs Temperature Temp: 36.4 ??C (97.5 ??F) Temp: [36.4 ??C (97.5 ??F)-37 ??C (98.6 ??F)] Heart Rate Heart Rate: 75 Heart Rate: [67-75] Blood Pressure BP: 126/67 mmHg BP: (126-171)/(67-81) Art BP BP (Arterial Line): 0/0 mmHg BP (Arterial Line): -- O2 Delivery Oxygen Therapy O2 Device: Nasal cannula O2 Flow Rate (L/min): 2 L/min SpO2 SpO2: 98 % SpO2: [96 %-100 %] on 2 L Respiratory Rate Resp: 18 Resp: [16-20] In/Out's: Intake/Output Summary (Last 24 hours) at 01/27/15 1135 Last data filed at 01/27/15 1002 Gross per 24 hour Intake 810 ml Output 1655 ml Net -845 ml Patient Vitals for the past 168 hrs: Weight 01/27/15 0554 89.7 kg (197 lb 12 oz) 01/26/15 0444 95.437 kg (210 lb 6.4 oz) 01/25/15 0705 93 kg (205 lb 0.4 oz) 01/24/15 0610 92.1 kg (203 lb 0.7 oz) 01/23/15 0646 91.7 kg (202 lb 2.6 oz) 01/22/15 1338 92.8 kg (204 lb 9.4 oz) Exam Gen: Pleasant, mildly anxious middle-aged female, lying in bed in no acute distress HEENT: NC/AT, PERRL, EOMI, anicteric sclera, MMM Neck: Supple, no JVD CV: RRR, normal S1/S2, no murmurs, rubs or gallops appreciated Resp: CTA, remains mildly diminished at L base, no wheezes, rales or rhonchi; chest tube in place with overlying dressing clean/dry/intact Abd: Soft, mildly distended, non-tender, NABS, no masses appreciated EXT: Trace LE edema in bilateral lower extremities, no cyanosis or clubbing, intact distal pulses Skin: Lower extremity venous stasis changes, hyperpigmented nodules over bilateral calves Labs Recent Labs 01/27/15 0434 01/26/15 0344 01/25/15 0455 WBC 6.8 5.6 6.9 HGB 11.7 9.8* 8.9* HCT 35.1 29.4* 26.7* PLATELET 472* 432* 385* Recent Labs 01/27/15 0434 01/26/15 0344 01/25/15 0455 NA 138 141 140 K 4.4 3.7 3.7 CL 99 101 103 CO2 26 26 29 BUN 10 10 12 CREATININE 0.60* 0.57* 0.57* Recent Labs 01/27/15 0434 01/26/15 0344 01/25/15 0455 CALCIUM 8.0* 7.7* 7.7* Recent Labs 01/24/15 0514 01/23/15 0325 01/22/15 1400 BILITOT 0.4 0.5 0.6 BILIDIR 0.2 0.2 0.2 AST 16 26 33* ALT 26 33* 42* ALKPHOS 126* 119* 137* Recent Labs 01/27/15 0434 01/26/15 0344 01/25/15 0455 INR 1.2* 1.3* 1.4* PTT 32 32 35 No results for input(s): CK in the last 168 hours. Invalid input(s): TROPONIN Microbiology - Calcofluor white stain: Negative - Gram stain: Negative - Pleural fluid culture: No growth x 4 days Imaging: - CXR 01/22: Increased left hemithorax opacity compatible with atelectasis and effusion partially of scarring enlarged cardiac silhouette. - CT chest 01/22: 1. Large amount of circumferential pericardial fluid, with elevated attenuation, consistent with nonsimple fluid. Cannot assess for vascular integrity or for pericardial nodules/masses in the absence of intravenous contrast. 2. Small left and very small right simple pleural effusions. 3. Partial compressive atelectasis of the lingula and left lower lobe. No gross pulmonary mass seen. - Pericardiocentesis 01/22: 780 cc of sanguinous fluid withdrawn - RUQ ultrasound 01/23: The liver is large but normal in echogenicity. There are no gallstones seen and no biliary ductal dilatation. Right pleural effusion. - 01/23 TTE: 1. Limited follow up s/p pericardiocentesis. 2. There is a small-moderate sized posterior pericardial effusion. - CXR 01/24: Large left-sided pleural effusion without change. Small right-sided pleural effusion. - CT chest 01/24: 1. Significant interval decrease in size of pericardial effusion as above. 2. Interval increase in now large left sided pleural effusion with worsening adjacent compressive lingular and left lower lobe atelectasis. There appears to be some heterogeneity of the left pleural fluid, raising possibility of blood/blood clots; vascular integrity cannot be assessed on this unenhanced exam. 3. Interval slight increase in size of small right pleural effusion. 4. Otherwise no significant interval change. - TTE 01/26: 1. Limited echocardiogram follow up for pericardial effusion 2. Global left ventricular wall motion and contractility are probably within normal limits. The visually estimated left ventricular ejection fraction is 65% The right ventricle is probably normal in size. 3. Normal valve structures 4. Normal chamber dimensions 5. There is a small posterior pericardial effusion. There is no echo or doppler evidence of pericardial tamponade. When compared to the prior 01/23/15 study, the effusion appears smaller Assessment Francie Yusuf is a 54 year old female with a history of antiphospholipid antibody syndrome (on warfarin), amyloidosis, HTN, HLD, hypothyroidism, asthma and osteoarthritis who presented in transfer on 01/22 with hemopericardium producing pericardial tamponade. Etiology of her pericardial effusion is not clear; likely secondary to supratherapeutic INR (>9.2 on initial presentation), although etiology of supratherapeutic INR is unclear, given her long history of warfarin use without significant dietaryor medication changes (although she reports new use of krill oil, which may have been a culprit). She underwent pericardiocentesis on 01/22, with ~1 L of sanguinous output; her chest pigtail was removedon 01/23. She experienced an increased oxygen need on 01/24, with CXR showing a new large L pleural effusion; a chest tube was placed by IR on 01/25, with ~2 L of serosanguinous output thus far. INR remains mildly elevated at 1.2 today (s/p vitamin K and FFP). 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 Hematology consult is pending for further recommendations regarding long-term anticoagulation. Further medical management as outlined below: Plan: # Hemopericardium with tamponade, resolving - thought possibly secondary to supratherapeutic INR, ?viral pericarditis - rheumatology consulted, question of pleuropericarditis secondary to autoimmune process - follow up additional lab work: YELENA, dsDNA, C3, C4, CH50, ANITA, INCOME TAX EXPERT, anti-Sm Ab - prednisone 20 mg PO daily # L hemothorax - s/p L-sided thoracentesis 01/25 by IR, minimal drainage in last 24 hours - anticipate chest tube removal by IR today - additional vitamin K 1.25 mg PO today # Antiphospholipid antibody syndrome on warfarin, with supratherapeutic INR (>9.2) - continue to hold warfarin - heme consult pending # Routine - Chronic conditions: continue home simvastatin, synthroid, albuterol - DVT PPx: SCDs, holding warfarin at this time - GI PPx: esomeprazole 40 mg PO daily - Diet/Fluids: healthy/none - Access: PIV - CODE STATUS: FULL CODE - Dispo: continued ICCU monitoring Traci Hansen MD Internal Medicine, PGY-1 Cardiology S2 team pager # [phone] 01/27/2015 Associated attestation - Linden Pacheco MD - 01/27/2015 2:39 PM EDT Images from the original note were not included. Cardiology Staff Addendum: This patient was seen today and personally interviewed and examined. Agree with documentation by Dr.Joanna Hansen, which I have reviewed and independently confirmed. Briefly, she had no events overnight and describes a slight improvement in her chest pain. She is receiving prednisone 20 mg daily uponthe recommendation of the rheumatology service and management of her pleural pericardial process. [place] awaiting hematology consult. Examination today is relatively unchanged. She has fairly clear lungs bilaterally. Plan today: 1. Remove chest tube 2. Continue prednisone 3. Hematology consult regarding antiphospholipid antibody syndrome and safety of withholding warfarin Linden Pacheco MD, [place], [facility] Jovanni Tamayo MD - 01/26/2015 4:23 PM EDT Rheumatology Fellow Inpatient Follow up Note Reason for initial consult: Need for continuing anticoagulation on a patient with APLS on coumadin since 2001 with hemopericardium in setting of elevated INR of 9.2 Brief summary 54 year old woman with a background of anti-phospholipid syndrome (on coumdin since 2001 after whitematter changes identified on MRI. Anti-Cardiolipin. IgG and IgM positive, Anti- Beta 2 Glycoprotein positive. IgM 82, lupus Anticoagulant negative and YELENA 1:640. No clots); amyloidosis cutis (no evidence of systemic amyloid) and hypothyroidism. Presented with 3 week h/o sharp chest pain 01/02/2015 with two ED visits at OSH was given Aspirin and Ibuprofen for suspicion of costocondritis. She presentedto OSH (01/22/2015) with dyspnea, chest pain and a INR of 9.2. Cardiac tamponade was identified on CXR and echocardiogram. [place] [facility] [place] guided drainage of 70cc of serosanguinous fluid and reversal of INR with FFP and Vitamin K. Unclear etiology of elevated INR- no recent antibiotics, no change in diet, no new vitamin or herbal supplements. Interval Hx: - continued SOB and increasing O2 requirements despite pericardiocentesis - repeat imaging on 01/24/[address] chest s/o increased left pleural effusion. - IR guided drainage of 1000cc of serosanguinous pleural fluid on 01/25/15 despite reversal of INR ROS: +oral sores +sicca symptoms No rash or photosensitivity No raynaud's No alopecia No arthralgias Miscarried 3rd in 1st trimester after 2 previous healthy births No h/o clots Physical Exam: Temp: [36.6 ??C (97.9 ??F)-36.9 ??C (98.4 ??F)] Heart Rate: [64-71] Resp: [16-20] BP: (140-171)/(71-77) SpO2: [96 %-100 %] General: AAOx3, NAD HEENT: Mucous membranes are moist, no oral mucosal ulcerations Neuro: Alert and oriented x3. Skin: (+) multiple non-tender hyperpigmented nodules on bilateral lower extremities, (-)ulcers, (-)rash Nails: no capillary drop outs Labs: Results for FRANCIE YUSUF ( ) as of 01/26/2015 15:47 01/23/2015 03:25 01/24/2015 05:14 01/25/2015 04:55 01/26/2015 03:44 PT 28.1 (H) 26.1 (H) 18.0 (H) 16.7 (H) INR 2.4 (H) 2.2 (H) 1.4 (H) 1.3 (H) PTT 45 (H) 42 (H) 35 32 Studies: 01/24/15 CT chest: IMPRESSION: 1. Significant interval decrease in size of pericardial effusion as above. 2. Interval increase in now large left sided pleural effusion with worsening adjacent compressive lingular and left lower lobe atelectasis. There appears to be some heterogeneity of the left pleural fluid, raising possibility of blood/blood clots; vascular integrity cannot be assessed on this unenhanced exam. 3. Interval slight increase in size of small right pleural effusion. 4. Otherwise no significant interval change. Assessment: Francie Yusuf is a 54 y.o. female with h/o anti-phospholipid syndrome, amyloidosis cutis and hypothyroidism. Initial presentation consistent with tamponade physiology and found to have hemopericardium s/p IR guided drainage in setting of elevated INR 9.2 with unclear cause of supratheraputic INR. Progr essed to hemothorax despite reversal of INR. 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 APLS is possibly secondary to lupus with prior +YELENA 1:640, low complements but negative dsDNA. Will repeat Lupus serology today and start steroids. Plan: - Recommend starting prednisone 20 mg tonight - please check YELENA, dsDNA, C3, C4, CH50 and ANITA, [employer] and Rees Ab - We would like to continue anticoagulation but would appreciate Hematology/Coagulation team opinionon anticoagulation and if anticoagulation favored what would be most appropriate agent in her case. We will continue to follow with you. Please call on-call Rheumatology Fellow with questions Recommendations discussed with Cardiology team and Rheumatology attending. Dr. Tamayo. Cheri Dorman MD Rheumatology Fellow #[id number] I have seen the patient and reviewed the resident's above history and I agree with the details as written. The assessment and plan were formulated in discussion with me and I agree with them as documented. Pertinent History: APLS with white matter lesions but no event Pertinent Exam: INR elevation w/o explanation contributing to hemopericardium and bloody pleural effusion Major issues addressed: +YELENA low complements and APLS suggests SLE Plan: prednisone for polyserositis. Consult coag for suggestions on anticoagulation Edwina Escobedo PA - 01/26/2015 6:18 AM EDT Interventional Radiology Inpatient- Progress Note Post procedure day #1 s/p LEFT chest tube placement Responsible Attending: Linden Pacheco MD Problem List: Active Hospital Problems Diagnosis ??? Cardiac tamponade ??? Acute bloody pericarditis ??? Supratherapeutic INR ??? Pleural effusion ??? Antiphospholipid antibody syndrome Resolved Hospital Problems Diagnosis Date Resolved No resolved problems to display. Active Non-Hospital Problems Diagnosis ??? S/P complete thyroidectomy ??? Amyloidosis cutis ??? Amyloidosis ??? Thyroid nodule ??? Lumbar disc herniation with radiculopathy ??? Asthma ??? Sinusitis, chronic ??? Edema of both legs ??? Miscarriage Time of patient encounter: 629 24 Hour Events: Overall breathing improved however she is having some sharp discomfort from with tube with deep breaths No fevers or cough Physical Exam Last Set of Vitals and range of vitals over past 24 hours: Last value Range last 24 hrs Temperature Temp: 36.8 ??C (98.2 ??F) Temp: [36.2 ??C (97.2 ??F)-36.8 ??C (98.2 ??F)] Heart Rate Heart Rate: 64 Heart Rate: [63-78] Blood Pressure BP: 146/74 mmHg BP: (131-172)/(60-80) Respiratory Rate Resp: 16 Resp: [16] SpO2 SpO2: 96 % SpO2: [96 %-100 %] Intake/Output Summary (Last 24 hours) at 01/26/1518 Last data filed at 01/26/15 0221 Gross per 24 hour Intake 350 ml Output 2450 ml Net -2100 ml GEN: NAD LEFT chest tube dressing CDI No crepitus in region Connected to LWS output ~1000 cc serosanguinous No air leak No new imaging Assessment / Plan: 54 y.o. female w/ h/o antiphospholipid antibody syndrome (on coumadin), amyloidosis, HTN, hypothyroidism, asthma and supra-therapeutic INR (9) transferred on 01/22 with pericardial tamponade (etiology unclear) s/p pericardial drain (bloody pericardial effusion), now removed. Patient w/ persistent SOB and report of increased O2 need. CT shows increased left pleural effusion from 01/22, now w/ mixed heterogeneity c/w blood/blood clot. Chest tube placed yesterday without issue. Good output from tube. Would recommend continuing LWS until outputs are less than 150 cc in 24 hours. Will continue to follow along with you. KOLE Shelton 01/26/2015 Traci Hansen - 01/26/2015 5:34 AM EDT Inpatient Cardiology Progress Note: Name: Francie Yusuf : 1960 LOS: 4 days Location: [id number] ID: Francie Yusuf is a 54 year old female with a history of antiphospholipid antibody syndrome, amyloidosis, HTN, HLD, hypothyroidism, asthma and osteoarthritis who presented in transfer on 01/22 with hemopericardium producing cardiac tamponade of unclear etiology (but thought secondary to supratherapeutic INR vs ?viral pericarditis) Active Hospital Problems Diagnosis ??? Cardiac tamponade ??? Acute bloody pericarditis ??? Supratherapeutic INR ??? Pleural effusion ??? Antiphospholipid antibody syndrome Resolved Hospital Problems Diagnosis Date Resolved No resolved problems to display. Active Non-Hospital Problems Diagnosis ??? S/P complete thyroidectomy ??? Amyloidosis cutis ??? Amyloidosis ??? Thyroid nodule ??? Lumbar disc herniation with radiculopathy ??? Asthma ??? Sinusitis, chronic ??? Edema of both legs ??? Miscarriage 24 Hour Events/Subjective: - no acute events overnight - reports continued discomfort at chest tube site, pain with rolling in bed - ~800 cc serosanguinous output in last 24 hours - denies chest pain, shortness of breath, reports fatigue from poor sleep Telemetry: - NSR, HR 60-75, no ectopy Scheduled Meds: ??? acetaminophen 1,000 mg Oral TID ??? melatonin 3 mg Oral Nightly ??? lidocaine 1 patch Transdermal Daily And ??? lidocaine 1 patch Transdermal Nightly ??? sodium chloride 0.9 % 5 mL Intravenous Q12H ??? chlorhexidine 15 mL Oral 2 times per day ??? levothyroxine 112 mcg Oral QAM ??? esomeprazole 40 mg Oral Daily ??? simvastatin 20 mg Oral QPM Continuous Infusions: ??? sodium chloride 0.9% PRN Meds:.HYDROmorphone OR HYDROmorphone, senna-docusate, sodium chloride 0.9 %, lidocaine, sodium chloride 0.9%, albuterol, docusate sodium Vitals: Last value Range last 24 hrs Temperature Temp: 36.6 ??C (97.9 ??F) Temp: [36.2 ??C (97.2 ??F)-36.9 ??C (98.4 ??F)] Heart Rate Heart Rate: 67 Heart Rate: [63-78] Blood Pressure BP: 156/77 mmHg BP: (131-172)/(60-80) Art BP BP (Arterial Line): 0/0 mmHg BP (Arterial Line): -- O2 Delivery Oxygen Therapy O2 Device: Nasal cannula O2 Flow Rate (L/min): 2 L/min SpO2 SpO2: 99 % SpO2: [96 %-99 %] on 2 L Respiratory Rate Resp: 18 Resp: [16-18] In/Out's: Intake/Output Summary (Last 24 hours) at 01/26/15 1208 Last data filed at 01/26/15 1136 Gross per 24 hour Intake 700 ml Output 2575 ml Net -1875 ml Patient Vitals for the past 168 hrs: Weight 01/26/15 0444 95.437 kg (210 lb 6.4 oz) 01/25/15 0705 93 kg (205 lb 0.4 oz) 01/24/15 0610 92.1 kg (203 lb 0.7 oz) 01/23/15 0646 91.7 kg (202 lb 2.6 oz) 01/22/15 1338 92.8 kg (204 lb 9.4 oz) Exam Gen: Pleasant, mildly anxious middle-aged female, lying in bed in no acute distress HEENT: NC/AT, PERRL, EOMI, anicteric sclera, MMM Neck: Supple, no JVD CV: RRR, normal S1/S2, no murmurs, rubs or gallops appreciated Resp: CTA, remains mildly diminished at L base, no wheezes, rales or rhonchi Abd: Soft, mildly distended, non-tender, NABS, no masses appreciated EXT: Trace LE edema in bilateral lower extremities, no cyanosis or clubbing, intact distal pulses Skin: Lower extremity venous stasis changes, hyperpigmented nodules over bilateral calves Labs Recent Labs 01/26/15 03401/25/15 0455 01/24/15 1516 WBC 5.6 6.9 9.3 HGB 9.8* 8.9* 10.0* HCT 29.4* 26.7* 29.9* PLATELET 432* 385* 419* Recent Labs 01/26/15 03401/25/15 0455 01/24/15 0514 NA 141 140 139 K 3.7 3.7 3.5 CL 101 103 98 CO2 26 29 29 BUN 10 12 18 CREATININE 0.57* 0.57* 0.64* Recent Labs 01/26/15 03401/25/15 0455 01/24/15 0514 CALCIUM 7.7* 7.7* 7.7* Recent Labs 01/24/15 0514 01/23/15 0325 01/22/15 1400 BILITOT 0.4 0.5 0.6 BILIDIR 0.2 0.2 0.2 AST 16 26 33* ALT 26 33* 42* ALKPHOS 126* 119* 137* Recent Labs 01/26/15 0344 01/25/15 0455 01/24/15 0514 INR 1.3* 1.4* 2.2* PTT 32 35 42* No results for input(s): CK in the last 168 hours. Invalid input(s): TROPONIN Microbiology - Calcofluor white stain: Negative - Gram stain: Negative - Pleural fluid culture: No growth x 2 days Imaging: - CXR 01/22: Increased left hemithorax opacity compatible with atelectasis and effusion partially of scarring enlarged cardiac silhouette. - CT chest 01/22: 1. Large amount of circumferential pericardial fluid, with elevated attenuation, consistent with nonsimple fluid. Cannot assess for vascular integrity or for pericardial nodules/masses in the absence of intravenous contrast. 2. Small left and very small right simple pleural effusions. 3. Partial compressive atelectasis of the lingula and left lower lobe. No gross pulmonary mass seen. - Pericardiocentesis 01/22: 780 cc of sanguinous fluid withdrawn - RUQ ultrasound 01/23: The liver is large but normal in echogenicity. There are no gallstones seen and no biliary ductal dilatation. Right pleural effusion. - 01/23 TTE: 1. Limited follow up s/p pericardiocentesis. 2. There is a small-moderate sized posterior pericardial effusion. - CXR 01/24: Large left-sided pleural effusion without change. Small right-sided pleural effusion. - CT chest 01/24: 1. Significant interval decrease in size of pericardial effusion as above. 2. Interval increase in now large left sided pleural effusion with worsening adjacent compressive lingular and left lower lobe atelectasis. There appears to be some heterogeneity of the left pleural fluid, raising possibility of blood/blood clots; vascular integrity cannot be assessed on this unenhanced exam. 3. Interval slight increase in size of small right pleural effusion. 4. Otherwise no significant interval change. - TTE 01/26: Pending Assessment Francie Yusuf is a 54 year old female with a history of antiphospholipid antibody syndrome (on warfarin), amyloidosis, HTN, HLD, hypothyroidism, asthma and osteoarthritis who presented in transfer on 01/22 with hemopericardium producing pericardial tamponade. Etiology of her pericardial effusion is not clear; likely secondary to supratherapeutic INR (>9.2 on initial presentation), although etiology of supratherapeutic INR is unclear, given her long history of warfarin use without significant dietaryor medication changes (although she reports new use of krill oil, which may have been a culprit). She underwent pericardiocentesis on 01/22, with ~1 L of sanguinous output; her chest pigtail was removedon 01/23. She experienced an increased oxygen need on 01/24, with CXR showing a new large L pleural effusion; a chest tube was placed by IR on 01/25, with ~1.8 of serosanguinous output thus far. INR remains mildly elevated at 1.3 today (s/p vitamin K and FFP. Given hemopericardium and new bloody L pleural effusion, will hold warfarin and administer additional vitamin K to achieve an INR ~1. Further medical management as outlined below: Plan: # L hemothorax - s/p L-sided thoracentesis 01/25 by IR - additional vitamin K 1.25 mg PO today # Hemopericardium with tamponade, resolving - thought possibly secondary to supratherapeutic INR, ?viral pericarditis - repeat TTE today - continue acetaminophen 1000 mg PO TID # Antiphospholipid antibody syndrome on warfarin, with supratherapeutic INR (>9.2) - continue to hold warfarin - further rheumatology input appreciated # Routine - Chronic conditions: continue home simvastatin, synthroid, albuterol - DVT PPx: SCDs, holding warfarin at this time - GI PPx: esomeprazole 40 mg PO daily - Diet/Fluids: healthy/none - Access: PIV - CODE STATUS: FULL CODE - Dispo: continued ICCU monitoring Traci Hansen MD Internal Medicine, PGY-1 Cardiology S2 team pager # [phone] 01/26/2015 Associated attestation - Linden Pacheco MD - 01/26/2015 4:57 PM EDT Images from the original note were not included. Cardiology Staff Addendum: This patient was seen today and personally interviewed and examined. Agree with documentation by Traci Hansen M.D., which I have reviewed and independently confirmed. Briefly, she has been stable overnight following drainage of about a liter from her left pleural space yesterday in interventional radiology. Overnight she has put out another 800 mL or so. She has some mild respirophasic pain. Her examination is notable for improvement in the findings on her left lung. Her transthoracic echocardiogram today showed only a small posterior fusion. We continued to feel the need to reverse her warfarin associated coagulopathy given bleeding into both her pericardial and pleural space. Linden Pacheco MD, [place], [facility] Shadia Rodriguez RN - 01/25/2015 8:42 PM EDT Pt had CT placed for left sided pleural effusion. Drained 125 mL from 1515 to 1730, MD aware. VSS. Pt c/o of positional pain with CT, relieved with tylenol. Shadia Rodriguez RN Andressa Duckworth RN - 01/25/2015 2:00 PM EDT [facility] Name: FRANCIE YUSUF Date of : 1960 AGE 54 y.o. Address: [facility] [address] [facility] [address] (home) [phone] (work) Mobile: No relevant phone numbers on file. Referring Provider: Brea Jackman REASON FOR VISIT: Question Answer Comment Where will study be performed? [facility]- Radiology Laterality Left Is the patient on anticoagulant / anitplatelet therapy ? Coumadin Reason for exam and clinical history: rapidly expanding L effusion w/ CT evidence blood/clot. occurs after tamponade/bloody pericardial efffusion (INR 9); new O2 req't Exam/Procedure requested: drainage. Is the patient ? No (Assessment/plan from provider's note, bottom of page) Copy/paste from provider's note (for CT's) No Known Allergies Pertinent PMH: Patient Active Problem List Diagnosis Code ??? [...] Supratherapeutic INR 790.92 ??? Pleural effusion 511.9 Pertinent PSH: Past Surgical History Procedure Laterality Date ??? Bone marrow biopsy ??? Hysterectomy ??? Thyroidectomy 06/01/2012 THYROIDECTOMY, TOTAL OR COMPLETE performed by LINDA RANGEL at [facility] MAIN OR ??? Somatosensory test, any/all per. nerves, trunk or head 06/01/2012 FACIAL NERVE MONITORING, SETUP performed by LINDA RANGEL at [facility] MA[facility] OR Date/Procedure Med's given/comments 01/25/15 left sided chest tube Fentanyl 150mcg IV. Pt tolerated with some discomfort. Laboratory Results: Lab Results Component Value Date INR 1.4* 01/25/2015 No components found for: PT/PTT Lab Results Component Value Date CREATININE 0.57* 01/25/2015 Lab Results Component Value Date K 3.7 01/25/2015 Lab Results Component Value Date PLATELET 385* 01/25/2015 Medications: Prior to Admission medications Medication Sig Start Date End Date Taking? Authorizing Provider levothyroxine (SYNTHROID) 112 mcg Tablet Take 112 mcg by mouth daily. Yes PROVIDER, HISTORICAL albuterol (PROVENTIL HFA;VENTOLIN HFA;PROAIR) 90 mcg/actuation HFA Aerosol Inhaler Inhale 2 puffs into the lungs every 4 hours as needed for Wheezing. Use with spacer Yes PROVIDER, HISTORICAL hydrochlorothiazide (HYDRODIURIL) 25 mg Tablet Take 25 mg by mouth daily. Yes PROVIDER, HISTORICAL omeprazole (PRILOSEC) 40 mg Capsule, Delayed Release(E.C.) Take 40 mg by mouth daily. Yes PROVIDER, HISTORICAL traMADol (ULTRAM) 50 mg Tablet Take 50 mg by mouth every 6 hours as needed for Pain. Yes PROVIDER, HISTORICAL Levalbuterol Tartrate 45 mcg/actuation HFA Aerosol Inhaler Inhale 1-2 puffs into the lungs every 4 hours as needed for Wheezing. Yes PROVIDER, HISTORICAL calcium-vitamin D 500 mg(1,250mg) -200 unit Tablet Take 1 tablet by mouth daily. Yes PROVIDER, HISTORICAL [id number]-[id number]-[id number]-Astx 1000-130(40-80) mg Capsule Take 1 capsule by mouth daily. Yes PROVIDER, HISTORICAL fexofenadine (WAQAR) 60 mg tablet Take 180 mg by mouth daily. Yes PROVIDER, HISTORICAL simvastatin (ZOCOR) 20 mg tablet Take 20 mg by mouth nightly. Yes PROVIDER, HISTORICAL acetaminophen (TYLENOL EXTRA STRENGTH) 500 mg tablet Take by mouth as needed. Take 1-2 tabs of the (500mg) Tablets 01/13/11 Yes PROVIDER, HISTORICAL WARFARIN SODIUM (WARFARIN ORAL) 10/25/10 Yes ++++ FOR OUTPATIENT SCAN'S: I have informed this patient that they require a moving van driver to be present and in the building to drive them home after this procedure. In the absence of a moving van driver, IR will not beable to perform this procedure and will need to reschedule. Pt verbalized understanding of these inst ructions during the pre-procedure education via phone. (initials) Traci Hansen - 01/25/2015 5:23 AM EDT Inpatient Cardiology Progress Note: Name: Francie Yusuf : 1960 LOS: 3 days Location: [address] [place] [id number]-B ID: Francie Yusuf is a 54 year old female with a history of antiphospholipid antibody syndrome, amyloidosis, HTN, HLD, hypothyroidism, asthma and osteoarthritis who presented in transfer on 01/22 with hemopericardium producing cardiac tamponade of unclear etiology (but thought secondary to supratherapeutic INR vs ?viral pericarditis) Active Hospital Problems Diagnosis ??? Cardiac tamponade ??? Acute bloody pericarditis ??? Supratherapeutic INR ??? Pleural effusion ??? Antiphospholipid antibody syndrome Resolved Hospital Problems Diagnosis Date Resolved No resolved problems to display. Active Non-Hospital Problems Diagnosis ??? S/P complete thyroidectomy ??? Amyloidosis cutis ??? Amyloidosis ??? Thyroid nodule ??? Lumbar disc herniation with radiculopathy ??? Asthma ??? Sinusitis, chronic ??? Edema of both legs ??? Miscarriage 24 Hour Events/Subjective: - no acute events overnight - CT chest yesterday showed large left sided pleural effusion with worsening adjacent compressive lingular and left lower lobe atelectasis - slept poorly, no relief with 3 mg melatonin - NPO since midnight for anticipated chest tube placement by IR - received vitamin K 5 mg and FFP yesterday - reports baseline shortness of breath this AM (remains on 2 L via NC), denies chest pain - reports anxiety about chest tube placement Telemetry: - NSR, HR 70-80, no ectopy Scheduled Meds: ??? acetaminophen 1,000 mg Oral TID ??? melatonin 3 mg Oral Nightly ??? lidocaine 1 patch Transdermal Daily And ??? lidocaine 1 patch Transdermal Nightly ??? sodium chloride 0.9 % 5 mL Intravenous Q12H ??? chlorhexidine 15 mL Oral 2 times per day ??? levothyroxine 112 mcg Oral QAM ??? esomeprazole 40 mg Oral Daily ??? simvastatin 20 mg Oral QPM Continuous Infusions: ??? sodium chloride 0.9% PRN Meds:.HYDROmorphone, sodium chloride 0.9 %, lidocaine, sodium chloride 0.9%, albuterol, docusatesodium Vitals: Last value Range last 24 hrs Temperature Temp: 36.6 ??C (97.9 ??F) Temp: [36.5 ??C (97.7 ??F)-37.1 ??C (98.8 ??F)] Heart Rate Heart Rate: 71 Heart Rate: [69-83] Blood Pressure BP: 146/71 mmHg BP: (124-149)/(49-77) Art BP BP (Arterial Line): 0/0 mmHg BP (Arterial Line): (0-144)/(0-61) O2 Delivery Oxygen Therapy O2 Device: Nasal cannula O2 Flow Rate (L/min): 2 L/min SpO2 SpO2: 100 % SpO2: [96 %-100 %] on 2 L Respiratory Rate Resp: 16 Resp: [16-18] In/Out's: Intake/Output Summary (Last 24 hours) at 01/25/15 1110 Last data filed at 01/25/15 0907 Gross per 24 hour Intake 1805 ml Output 870 ml Net 935 ml Patient Vitals for the past 168 hrs: Weight 01/25/15 0705 93 kg (205 lb 0.4 oz) 01/24/15 0610 92.1 kg (203 lb 0.7 oz) 01/23/15 0646 91.7 kg (202 lb 2.6 oz) 01/22/15 1338 92.8 kg (204 lb 9.4 oz) Exam Gen: Pleasant, mildly anxious middle-aged female, lying in bed in no acute distress HEENT: NC/AT, PERRL, EOMI, anicteric sclera, MMM Neck: Supple, no JVD CV: RRR, heart sounds diminished, no murmurs, rubs or gallops appreciated Resp: CTA but significantly diminished in L base Abd: Soft, mildly distended, non-tender, NABS, no masses appreciated EXT: Trace LE edema in bilateral lower extremities, no cyanosis or clubbing, intact distal pulses Skin: Lower extremity venous stasis changes, hyperpigmented nodules over bilateral calves Labs Recent Labs 01/25/15 0455 01/24/15 1516 01/24/15 0514 WBC 6.9 9.3 9.9 HGB 8.9* 10.0* 9.3* HCT 26.7* 29.9* 27.9* PLATELET 385* 419* 390* Recent Labs 01/25/15 0455 01/24/15 0514 01/23/15 0325 NA 140 139 141 K 3.7 3.5 4.0 CL 103 98 98 CO2 29 29 29 BUN 12 18 21* CREATININE 0.57* 0.64* 0.80 Recent Labs 01/25/15 0455 01/24/15 0514 01/23/15 0325 CALCIUM 7.7* 7.7* 7.9* Recent Labs 01/24/15 0514 01/23/15 0325 01/22/15 1400 BILITOT 0.4 0.5 0.6 BILIDIR 0.2 0.2 0.2 AST 16 26 33* ALT 26 33* 42* ALKPHOS 126* 119* 137* Recent Labs 01/25/15 0455 01/24/15 0514 01/23/15 0325 INR 1.4* 2.2* 2.4* PTT 35 42* 45* No results for input(s): CK in the last 168 hours. Invalid input(s): TROPONIN Microbiology - Calcofluor white stain: Negative - Gram stain: Negative - Pleural fluid culture: No growth x 2 days Imaging: - CXR 01/22: Increased left hemithorax opacity compatible with atelectasis and effusion partially of scarring enlarged cardiac silhouette. - CT chest 01/22: 1. Large amount of circumferential pericardial fluid, with elevated attenuation, consistent with nonsimple fluid. Cannot assess for vascular integrity or for pericardial nodules/masses in the absence of intravenous contrast. 2. Small left and very small right simple pleural effusions. 3. Partial compressive atelectasis of the lingula and left lower lobe. No gross pulmonary mass seen. - Pericardiocentesis 01/22: 780 cc of sanguinous fluid withdrawn - RUQ ultrasound 01/23: The liver is large but normal in echogenicity. There are no gallstones seen and no biliary ductal dilatation. Right pleural effusion. - 01/23 TTE: 1. Limited follow up s/p pericardiocentesis. 2. There is a small-moderate sized posterior pericardial effusion. - CXR 01/24: Large left-sided pleural effusion without change. Small right-sided pleural effusion. - CT chest 01/24: 1. Significant interval decrease in size of pericardial effusion as above. 2. Interval increase in now large left sided pleural effusion with worsening adjacent compressive lingular and left lower lobe atelectasis. There appears to be some heterogeneity of the left pleural fluid, raising possibility of blood/blood clots; vascular integrity cannot be assessed on this unenhanced exam. 3. Interval slight increase in size of small right pleural effusion. 4. Otherwise no significant interval change. Assessment Francie Yusuf is a 54 year old female with a history of antiphospholipid antibody syndrome (on warfarin), amyloidosis, HTN, HLD, hypothyroidism, asthma and osteoarthritis who presented in transfer on 01/22 with hemopericardium producing pericardial tamponade. Etiology of her pericardial effusion is not clear; likely secondary to supratherapeutic INR (>9.2 on initial presentation), although etiology of supratherapeutic INR is unclear, given her long history of warfarin use without significant dietaryor medication changes. She underwent pericardiocentesis on 01/22, with ~1 L of sanguinous output; herchest pigtail was removed on 01/23. She experienced an increased oxygen need on 01/24, with CXR showing a new large L pleural effusion; anticipate thoracentesis by IR today. INR remains mildly elevated at 1.4 today (s/p vitamin K and FFP). Given hemopericardium and new (presumed) bloody L pleural effusion, will hold warfarin and administer additional vitamin K to achieve an INR ~1. Further medical manag ement as outlined below: Plan: # New large L-sided effusion, with concern for hemothorax - s/p vitamin K, FFP yesterday - L-sided thoracentesis by IR today - additional vitamin K 1.25 mg PO today # Hemopericardium with tamponade, resolving - thought possibly secondary to supratherapeutic INR, ?viral pericarditis - repeat TTE tomorrow (01/26) - continue acetaminophen 1000 mg PO TID # Antiphospholipid antibody syndrome on warfarin, with supratherapeutic INR (>9.2) - continue to hold warfarin - rheumatology input appreciated # Routine - Chronic conditions: continue home simvastatin, synthroid, albuterol - DVT PPx: SCDs, holding warfarin at this time - GI PPx: esomeprazole 40 mg PO daily - Diet/Fluids: healthy/none - Access: PIV - CODE STATUS: FULL CODE - Dispo: Pending clinical course Traci Hansen MD Internal Medicine, PGY-1 Cardiology S2 team pager # [phone] 01/25/2015 Associated attestation - Linden Pacheco MD - 01/25/2015 3:36 PM EDT Images from the original note were not included. CARDIOLOGY STAFF ADDENDUM: This patient was seen today and personally interviewed and examined. Agree with documentation by Traci Hansen M.D., which I have reviewed and independently confirmed. BRIEF CLINICAL HISTORY: Despite the demonstration of a large fluid collection (primarily blood) around her left lung, she has been fairly stable overnight. She remains on 2 L of oxygen and is fairly comfortable. Her hemoglobin has dropped from 10-8.9. Her INR is 1.4 today. EXAM: Her examination is unchanged and is accurately documented by Dr. Hansen. ASSESSMENT: Unfortunately, she continues to suffer from bleeding complications. Her coagulopathy remains incompletely reversed. PLAN: 1. Placement of a pleural tube to remove some of the large collection of fluid/blood in her left lung and to assist in lung expansion and improve her breathing 2. Vitamin K 3. Repeat transthoracic echocardiogram tomorrow to reassess pericardial process Lindne Pacheco MD, FA, [facility] Anna Ingram RN - 01/24/2015 11:26 PM EDT OUTCOME EVALUATION NOTE: OUTCOME SUMMARY: Pt received all four bags of FFP tonight without any S/S of complications. Pt is reporting no pain at this point in time. Pt having a difficult time falling asleep, observe to be awake at 0230. 3mg of melatonin isn't working. Day shift provider aware of the situation. PLAN MOVING FORWARD: Pt to go down to IR tomorrow to see what is going on with her Lt lung. Pt has been NPO since midnight. INDIVIDUALIZED FALL PREVENTION: Assistance: Ambulation and transfers Supervision: Bathroom and ADL's Surveillance: Monitoring tele/heart rhythm, breathing, O2 saturation level CPG GOAL OUTCOME EVALUATION: Annie Carlos RN - 01/24/2015 6:50 PM EDT FFP initiated at 1730, pt paige well. No symptoms or reactions noted. There is a discrepancy on the FFP bag which states the volume is 243ml. The volume appears closer to 350ml. Will document the accurate mls given. Blood bank contacted and notified as well as Dr. Ware and the order is to continue to give the 4 bags of FFP and document the the total volume given. Rajesh Curry MD - 01/24/2015 6:33 PM EDT Images from the original note were not included. VASCULAR AND INTERVENTIONAL RADIOLOGY PRE-PROCEDURE NOTE Name: Francie Yusuf Date of : 1960 Referring Physician: Katelyn Hammer Indication: New O2 requirement; large left pleural effusion Planned Procedure: LEFT chest tube placement Chief Complaint/HPI: 54 y.o. female w/ h/o antiphospholipid antibody syndrome (on coumadin), amyloidosis, HTN, hypothyroidism, asthma and supra-therapeutic INR (9) transferred on 01/22 with pericardial tamponade (etiology unclear) s/p pericardial drain (bloody pericardial effusion), now removed. Patient w/ persistent SOB and report of increased O2 need. CT shows increased left pleural effusion from 01/22, now w/ mixed heterogeneity c/w layering/clotted blood. Patient currently afebrile, HDS and w/ SpO2 98% on 2L NC. INR 2.2 We have been consulted for chest tube placement Patient Active Problem List Diagnosis Code ??? [...] Supratherapeutic INR 790.92 ??? Pleural effusion 511.9 No Known Allergies Inpatient medications: Reviewed Last Value 24 Hour Range Temperature 37.1 ??C (98.8 ??F) Temp: [36.5 ??C (97.7 ??F)-37.1 ??C (98.8 ??F)] Heart Rate 79 Heart Rate: [69-83] Blood Pressure 144/49 mmHg BP: (122-147)/(49-77) Respiratory Rate 18 Resp: [16-22] SpO2 98 % SpO2: [91 %-98 %] Labs: Recent Labs 01/24/15 1516 01/24/1551301/23/15 032 WBC 9.3 9.9 10.0 HGB 10.0* 9.3* 9.5* HCT 29.9* 27.9* 28.3* PLATELET 419* 390* 403* Recent Labs 01/24/15 0501/23/1532401/22/15203301/22/15 1400 NA 139 141 -- 132* K 3.5 4.0 3.5 3.3* CL 98 98 -- 87* CO2 29 29 -- 25 BUN 18 21* -- 20* CREATININE 0.64* 0.80 -- 0.71 Recent Labs 01/24/15 0501/23/1532401/22/15 1400 AST 16 26 33* ALT 26 33* 42* ALKPHOS 126* 119* 137* BILITOT 0.4 0.5 0.6 BILIDIR 0.2 0.2 0.2 Recent Labs 01/24/1551301/23/1532401/22/15 1400 PT 26.1* 28.1* 57.1* INR 2.2* 2.4* 5.9* PTT 42* 45* 56* Imaging: Effusion similar in size compared to CXR from 01/23 Physical Exam: Pending (to be performed in angio) Assessment / Plan: 54 y.o. female w/ large left pleural effusion, likely blood/blood clot in settingof supratherapeutic INR (2.2 from 9) with SOB, currently HDS and minimally symptomatic. Recommend continued reversal of anticoagulation. Will plan chest tube placement tomorrow. Planned access site: LEFT Consent: Pending 01/24/2015 -- Rajesh Curry MD Fellow, Vascular and Interventional Radiology Pager: [phone] Galo Hammer MD - 01/24/2015 6:11 AM EDT Inpatient Cardiology Progress Note: Name: Francie Gonzales [place] : 1960 LOS: 2 days Location: [id number] ID: Francie Yusuf is a 54 year old female with a history of antiphospholipid antibody syndrome, amyloidosis, HTN, HLD, hypothyroidism, asthma and osteoarthritis who presented in transfer on 01/22 with bloody pericardial tamponade of unclear etiology (? Viral pericarditis) Active Hospital Problems Diagnosis ??? Cardiac tamponade ??? Acute bloody pericarditis ??? Supratherapeutic INR ??? Pleural effusion ??? Antiphospholipid antibody syndrome Resolved Hospital Problems Diagnosis Date Resolved No resolved problems to display. Active Non-Hospital Problems Diagnosis ??? S/P complete thyroidectomy ??? Amyloidosis cutis ??? Amyloidosis ??? Thyroid nodule ??? Lumbar disc herniation with radiculopathy ??? Asthma ??? Sinusitis, chronic ??? Edema of both legs ??? Miscarriage 24 Hour Events/Subjective: - out to floor mid-AM - TTE (repeat): residual small/mod posterior -5cc OP all day --> drain pulled 5pm -Rheum consulted: rec restart warfarin, no add'l insights into etiology given - SOB cont's to improve but had multiple PND episodes (RN's wondering about anxiety) - site CP is now mild and only w/ deep inspiration and turning -ambulated yest w/ O2 and felt great - O2 went from 0.5L to 2L o/n - RN noted new wincing o/n -24 pain meds: 2 mg PO dilaudid x1 (01/23 8:45), APAP 1000mg x1 (01/24 01h00) Telemetry: - NSR, HR 70-80, freq PAC, freq atrial bigem Scheduled Meds: ??? phytonadione 5 mg Oral Once ??? lidocaine 1 patch Transdermal Daily And ??? lidocaine 1 patch Transdermal Nightly ??? sodium chloride 0.9 % 5 mL Intravenous Q12H ??? chlorhexidine 15 mL Oral 2 times per day ??? levothyroxine 112 mcg Oral QAM ??? esomeprazole 40 mg Oral Daily ??? simvastatin 20 mg Oral QPM Continuous Infusions: ??? sodium chloride 0.9% PRN Meds:.acetaminophen, HYDROmorphone, sodium chloride 0.9 %, lidocaine, sodium chloride 0.9%, albuterol, docusate sodium Vitals: Last value Range last 24 hrs Temperature Temp: 37.1 ??C (98.8 ??F) Temp: [36.7 ??C (98.1 ??F)-37.1 ??C (98.8 ??F)] Heart Rate Heart Rate: 76 Heart Rate: [72-83] Blood Pressure BP: 147/63 mmHg BP: (116-147)/(47-69) Art BP BP (Arterial Line): -- O2 Delivery Oxygen Therapy O2 Device: Nasal cannula O2 Flow Rate (L/min): 2 L/min SpO2 SpO2: 98 % SpO2: [91 %-98 %] Respiratory Rate Resp: 18 Resp: [18-22] In/Out's: Intake/Output Summary (Last 24 hours) at 01/24/15 0940 Last data filed at 01/24/15 0806 Gross per 24 hour Intake 400 ml Output 210 ml Net 190 ml Patient Vitals for the past 168 hrs: Weight 01/24/15 0610 92.1 kg (203 lb 0.7 oz) 01/23/15 0646 91.7 kg (202 lb 2.6 oz) 01/22/15 1338 92.8 kg (204 lb 9.4 oz) Exam Gen: Pleasant, mildly anxious middle-aged female, lying in bed in no acute distress HEENT: NC/AT, PERRL, EOMI, anicteric sclera, MMM Neck: Supple, no JVD CV: nl rate, reg, very diminished, no rub, drain bandage has scant dried blood, NT to palpation Resp: CTA but very reduced inferior 2/3rd L posterior (also [id number]) Abd: Soft, mildly distended, non-tender, NABS, no masses appreciated EXT: 1+ edema tibial (stable) in bilateral lower extremities, no cyanosis or clubbing, intact distalpulses Skin: Lower extremity venous stasis changes, hyperpigmented nodules over bilateral calves Labs Recent Labs 01/24/15 0514 01/23/15 0325 01/22/15 1400 WBC 9.9 10.0 12.9* HGB 9.3* 9.5* 9.9* HCT 27.9* 28.3* 29.1* PLATELET 390* 403* 493* Recent Labs 01/24/15 0514 01/23/15 0325 01/22/15 2034 01/22/15 1400 NA 139 141 -- 132* K 3.5 4.0 3.5 3.3* CL 98 98 -- 87* CO2 29 29 -- 25 BUN 18 21* -- 20* CREATININE 0.64* 0.80 -- 0.71 Recent Labs 01/24/15 0514 01/23/1532401/22/15 1400 CALCIUM 7.7* 7.9* 7.7* Recent Labs 01/24/15 0514 01/23/15 03201/22/15 1400 BILITOT 0.4 0.5 0.6 BILIDIR 0.2 0.2 0.2 AST 16 26 33* ALT 26 33* 42* ALKPHOS 126* 119* 137* Recent Labs 01/24/1551301/23/1532401/22/15 1400 INR 2.2* 2.4* 5.9* PTT 42* 45* 56* No results for input(s): CK in the last 168 hours. Invalid input(s): TROPONIN Microbiology - Calcofluor white stain: Negative - Gram stain: Negative - cx neg Interval Studies/Imaging 01/23 RUQ: hepatomeg, nl echogenecity, nl biliary tree 01/23 TTE: sm-mod post effusion CXR : large L sided effusion Assessment Francie Yusuf is a 54 year old female with a history of antiphospholipid antibody syndrome (on warfarin), amyloidosis, HTN, HLD, hypothyroidism, asthma and osteoarthritis who presented in transfer on 01/22 with pericardial tamponade. Etiology of her pericardial effusion is not clear; our primary ddx was APLA syndrome vs viral pericarditis. Rheum didn't really weigh in on this phenom or about how severe her APLA is, so we'll re-connect w/ them today. Pericardial drain out but still has some residual posterior effusion, so will need recurrent TTE Monday. Didn't do great o/n w/ some wincing, lack of resolution of CP/SOB, worse O2 need and now exam and CXR findings c/w new large L pleural effusin. Given rapidity and still-therapeutic INR (2.2 from 2.4), we have to think blood. RUQ u/s from yest showed nl (but enlarged liver) w/o add'l abnormalities. Plan: #New large L-sided effusion, c/f hemothorax -vitamin k oral now -stat CT chest -may need thoracentesis -may need FFP # Pericardial effusion with tamponade, unclear etiology; cx neg - repeat TTE Monday -start scheduled APAP # Antiphospholipid antibody syndrome on warfarin, with supratherapeutic INR (>9.2) - continue to hold warfarin - rheumatology consult # Routine - Chr cond: cond simva, synthroid, albuterol - DVT PPx: SCDs, holding warfarin at this time - GI PPx: esomeprazole 40 mg PO daily - Diet/Fluids: healthy/none - Access: PIV - CODE STATUS: FULL CODE - Dispo: floor Galo Hammer MD Cardiology S2 team pager # [phone] 01/24/2015 Associated attestation - Linden Pacheco MD - 01/24/2015 12:28 PM EDT Images from the original note were not included. Cardiology Staff Addendum: This patient was seen today and personally interviewed and examined. Agree with documentation by Dr.Jeff Hammer, which I have reviewed and independently confirmed. Briefly, while stable overnight and having less chest pain, her CXR this morning shows a new large left pleural effusion, concerning for a hemothorax. Her INR this morning is 2.2. Exam notable for decreased breath sounds and dullness left lower 1/2 lung field. Assess: Concern for bleeding into left pleural space, although she is minimally symptomatic from this. In addition to working this up, I see no choice but to fully reverse her anticoagulation. Plan: 1. Addition of Tylenol for pain control 2. CT of chest with hope of differentiating between blood versus pleural fluid in left chest 3. Vit. K Linden Pacheco MD, [facility], [facility] Traci Hansen - 01/23/2015 5:11 AM EDT Inpatient Cardiology Progress Note: Name: Francie Gonzales Yusuf : 1960 LOS: 1 days Location: [facility] ID: Francie Yusuf is a 54 year old female with a history of antiphospholipid antibody syndrome, amyloidosis, HTN, HLD, hypothyroidism, asthma and osteoarthritis who presented in transfer on 01/22 with pericardial tamponade of unclear etiology. There are no hospital problems to display for this patient. Active Non-Hospital Problems Diagnosis ??? S/P complete thyroidectomy ??? Amyloidosis cutis ??? Amyloidosis ??? Thyroid nodule ??? Lumbar disc herniation with radiculopathy ??? Asthma ??? Sinusitis, chronic ??? Antiphospholipid antibody syndrome ??? Edema of both legs ??? Miscarriage 24 Hour Events/Subjective: - admitted in transfer yesterday afternoon - TTE on admission showed a large circumferential pericardial effusion with tamponade (right ventricular and right atrial diastolic collapse, respiratory variation in Doppler flows, plethora of the IVC) with EF of 68% and no significant valvular disease - CT chest without contrast showed a large amount of circumferential pericardial fluid; unable to assess for vascular integrity or pericardial nodules/masses; no gross pulmonary mass seen - CXR with left hemithorax opacity compatible with atelectasis and effusion partially obscuring enlarged cardiac silhouette - underwent pericardiocentesis yesterday evening, with 780 cc of sanguinous fluid removed; ~70 of drainage since that time - no acute events overnight, remained hemodynamically stable - reports breathing feels improved, but notes persistent pain at thoracentesis site (received 2 mg PO dilaudid and 0.4 mg IV dilaudid x 2 overnight with resolution of pain) Telemetry: - NSR, HR 70s-90s, rare PVCs Scheduled Meds: ??? sodium chloride 0.9 % 5 mL Intravenous Q12H ??? chlorhexidine 15 mL Oral 2 times per day ??? levothyroxine 112 mcg Oral QAM ??? esomeprazole 40 mg Oral Daily ??? simvastatin 20 mg Oral QPM Continuous Infusions: ??? sodium chloride 0.9% PRN Meds:.HYDROmorphone, sodium chloride 0.9 %, lidocaine, sodium chloride 0.9%, albuterol, docusatesodium, potassium chloride OR potassium chloride, acetaminophen Vitals: Last value Range last 24 hrs Temperature Temp: 37.1 ??C (98.8 ??F) Temp: [36.5 ??C (97.7 ??F)-37.1 ??C (98.8 ??F)] Heart Rate Heart Rate: 72 Heart Rate: [71-123] Blood Pressure BP: 107/74 mmHg BP: (107-148)/(51-101) Art BP BP (Arterial Line): -- O2 Delivery Oxygen Therapy O2 Device: Nasal cannula O2 Flow Rate (L/min): 1 L/min SpO2 SpO2: 97 % SpO2: [93 %-100 %] Respiratory Rate Resp: 21 Resp: [13-34] In/Out's: Intake/Output Summary (Last 24 hours) at 01/23/15 0743 Last data filed at 01/23/15 0600 Gross per 24 hour Intake 1906 ml Output 2095 ml Net -189 ml Patient Vitals for the past 168 hrs: Weight 01/23/15 0646 91.7 kg (202 lb 2.6 oz) 01/22/15 1338 92.8 kg (204 lb 9.4 oz) Exam Gen: Pleasant, mildly anxious middle-aged female, lying in bed in no acute distress HEENT: NC/AT, PERRL, EOMI, anicteric sclera, MMM Neck: Supple, no JVD CV: RRR, diminished rub most appreciable over RUSB, newly appreciable S1/S2, no murmurs or gallops Chest: L pigtail in place, with serosanguinous drainage; site with no associated edema, erythema, discharge Resp: CTAB, slightly diminished breath sounds over L base, no increased work of breathing Abd: Soft, mildly distended, non-tender, NABS, no masses appreciated EXT: 1+ edema in bilateral lower extremities, no cyanosis or clubbing, intact distal pulses Skin: Lower extremity venous stasis changes, hyperpigmented nodules over bilateral calves Neuro: A&Ox4, CN II - XII grossly intact, moving all 4 extremities spontaneously, no focal deficits Labs Recent Labs 01/23/15 0325 01/22/15 1400 WBC 10.0 12.9* HGB 9.5* 9.9* HCT 28.3* 29.1* PLATELET 403* 493* Recent Labs 01/23/15 0325 01/22/15203301/22/15 1400 NA 141 -- 132* K 4.0 3.5 3.3* CL 98 -- 87* CO2 29 -- 25 BUN 21* -- 20* CREATININE 0.80 -- 0.71 Recent Labs 01/23/1532401/22/15 1400 CALCIUM 7.9* 7.7* Recent Labs 01/23/15 0325 01/22/15 1400 BILITOT 0.5 0.6 BILIDIR 0.2 0.2 AST 26 33* ALT 33* 42* ALKPHOS 119* 137* Recent Labs 01/23/1532401/22/15 1400 INR 2.4* 5.9* PTT 45* 56* No results for input(s): CK in the last 168 hours. Invalid input(s): TROPONIN Microbiology - Calcofluor white stain: Negative - Gram stain: Negative Interval Studies/Imaging - CXR 01/22: Increased left hemithorax opacity compatible with atelectasis and effusion partially obscuring enlarged cardiac silhouette - CT chest without contrast 01/22: 1. Large amount of circumferential pericardial fluid, with elevated attenuation, consistent with nonsimple fluid. Cannot assess for vascular integrity or for pericardial nodules/masses in the absence of intravenous contrast. 2. Small left and very small right simple pleural effusions. 3. Partial compressive atelectasis of the lingula and left lower lobe. No gross pulmonary mass seen. - TTE 01/22: 1. There is a large circumferential pericardial [...] There is no hemodynamically significant valve disease. - Pericardiocentesis 01/22: Successful pericardiocentesis for tamponade with removal of 780 cc of sanguinous fluid Assessment Francie Yusuf is a 54 year old female with a history of antiphospholipid antibody syndrome (on warfarin), amyloidosis, HTN, HLD, hypothyroidism, asthma and osteoarthritis who presented in transfer on 01/22 with pericardial tamponade. Etiology of her pericardial effusion is not clear; potential causes include infectious (viral, bacterial, fungal) although she denies prior illness, malignancy (particuarlylung or breast cancer, mesothelioma), or hypothyroidism (TSH mildly elevated at 5.2); she denies recent trauma, TN, prior pericardiotomy or mediastinal radiation. She denied medication changes with theexception of new [id number] vitamin D and calcium supplementation. Additional workup on admission included CXR (enlarged cardiac silhouette, left hemithorax opacity compatible with atelectasis and effusion), chest CT (large amount of circumferential pericardial fluid, no gross pulmonary mass seen), and TTE (large circumferential pericardial effusion, findings consistent with cardiac tamponade, EF of 68%). She underwent pericardiocentesis on the evening of 01/22, with ~800 cc of sanguinous fluidremoved. She remains hemodynamically stable, with minimal serosanguinous output overnight. Repeat TTE is pending this morning. INR is no longer supratherapeutic at 2.4 this morning; will hold warfarin and discuss its future role with her dry primer powder blender, Dr. Lowe. Additional workup today to include abdominal ultrasound in light of new hepatomegaly and abdominal pain. Plan: # Pericardial effusion with tamponade, unclear etiology - repeat TTE this AM - continue to monitor output, with possible removal of pigtail this afternoon if drainage remains minimal - follow up fluid studies # Antiphospholipid antibody syndrome on warfarin, with supratherapeutic INR (>9.2) - [place] [facility], currently 2.4 s/p vitamin K and FFP administration - continue to hold warfarin - rheumatology consult - discussion of warfarin with Dr. Lowe # Hepatomegaly with abdominal pain - RUQ ultrasound with dopplers today - continue to trend LFTs # Hypothyroidism s/p total thryoidectomy - TSH mildly elevated at 5.1 - continue home levothyroxine 112 mcg PO daily # Asthma - albuterol 2 puffs q6h PRN # Hyperlipidemia - continue simvastatin 20 mg PO daily # Routine - DVT PPx: SCDs, holding warfarin at this time - GI PPx: esomeprazole 40 mg PO daily - Diet/Fluids: healthy/none - Access: PIV - CODE STATUS: FULL CODE - Dispo: transfer to floor today Traci Hansen MD PGY-1, Internal Medicine Cardiology S2 team pager # [phone] 01/23/2015 Associated attestation - Linden Pacheco MD - 01/23/2015 3:37 PM EDT Images from the original note were not included. CARDIOLOGY STAFF ADDENDUM: This patient was seen today and personally interviewed and examined. Agree with documentation by Traci Hansen M.D., which I have reviewed and independently confirmed. BRIEF CLINICAL HISTORY: I am assuming staff responsibility for this interesting 54-year-old woman who is being treated for her antiphospholipid antibody syndrome with Coumadin. She also has cutaneous amyloid. She was admitted with a preceding history of intermittent chest discomfort and dyspnea and came in with more intense pain and was found to have a large pericardial effusion with evidence of tempand not. Yesterday she underwent placement of a pericardial catheter which drained 780 mL of franklybloody fluid. She had an elevated INR of 9.2 and has received both fresh frozen plasma and vitamin Kwith an INR today of 2.4. She has been stable overnight although continues to have chest discomfort. She had relatively small amounts of drainage overnight (about 70 mL). EXAM: On physical examination this morning she appeared in only mild distress. Her cardiac exam was unremarkable. She had no jugular venous distention. I could not detect a rub. Her lungs were clear. She had a trace of lower extremity edema. ASSESSMENT: In summary, this is a 54-year-old woman with amyloidosis, antiphospholipid antibody syndrome, and anemia, who presents with a pericardial bleed in the context of a market elevation of her INR. I suspect she had a pre- existing pericarditis during the last few weeks and this became hemorrhagic in the context of her coagulopathy. PLAN: 1. Rheumatology input on long-term management of her antiphospholipid antibody syndrome (does she definitely need warfarin?) 2. Hold warfarin for now 3. Trial addition of NSAID for pain (in addition to narcotics as needed) 4. Pull pericardial catheter Linden Pacheco MD, FA, FACC documented in this encounter H&P Notes Yury Colon MD - 01/22/2015 2:18 PM EDT [facility] Department of Cardiology Inpatient History and Physical Note Patient info: Francie Yusuf 1960 [id number] CHARLENE MORGAN, APPLICATION CONSULTANT Date of Admission: 01/22/2015 ( Hospital Day 0 days ) Attending: Dr. Colon Service: Inpatient cardiology Source: Patient, chart review Chief Complaint: Progressive dyspnea, chest pain/pressure Patient ID: Francie Yusuf is a 54 year old female with a history of antiphospholipid antibody syndrome, amyloidosis, HTN, HLD, hypothyroidism, asthma and osteoarthritis who presented in transfer on 01/22 with pericardial tamponade. History of Present Illness: Francie reports that beginning January 02, she noted gradual onset of chest pressure and discomfort, as well as progressive dyspnea. She had been seen by her PCP and in the ED twice since that time, with negative workup until this morning, when she was again seen by her PCP for acute worsening of dyspnea and chest pain overnight; she was advised by her PCP to undergo further evaluation in her local ED. She reports that her chest discomfort is intense, sharp and knot-like; she notes that it is worsened with leaning forward, kneeling, walking or climbing stairs. Workup at the outside hospital revealed pericardial tamponade and supratherapeutic INR. - Imaging: CXR: significant pericardial effusion TTE: significant pericardial effusion - Lab work: CBC: WBC 13.4, Hgb 10.3, Platelets 526, ANC 11 CMP (partial records): 130/2.9/108/27/19/0.8, AST 41, ALT 56 INR > 9.2 ProBNP 481 D-dimer 4115 - Medications: Vitamin K 2.5 mg PO KCl 40 mEq PO [facility] [place]. ROS: Constitutional - Negative for fevers, chills, weight gain/loss, +appetite loss or +fatigue HEENT - Negative for difficulty swallowing, nasal congestion, postnasal drip, visual changes, blurriness, or visual loss, change in hearing or tinnitus. Cardiovascular - Negative for +chest pain, palpitations, dyspnea on exertion, paroxysmal nocturnal dyspnea, orthopnea, syncope or pre-syncope +bilateral leg swelling Respiratory - Negative for +shortness of breath, wheeze, +cough, or sputum production Gastrointestinal - Negative for +abdominal pain, nausea, vomiting, acid reflux, dysphagia, +constipation, diarrhea, melena, hematochezia, +abdominal distention Genitourinary - Negative for dysuria, urgency, frequency, hesitancy or hematuria Endocrine - Negative for polydipsia, polyuria, palpitations, cold or heat intolerance or change in skin or nails. Heme/Lymph - Negative for easy bruising or bleeding, lymph node swelling, night sweats Musculoskeletal - Negative for myalgias, arthralgias, joint swelling, erythema or warmth, weakness Skin - Negative for rash or new concerning lesions Neurological - Negative for +headaches, changes in hearing or vision, blurry vision, double vision, dizziness, focal or generalized weakness or sensory deficit, dysarthria, new memory problems, +lightheadedness Psych - Negative for depression, anxiety, +sleep disturbance Past Medical History: Past Medical History Diagnosis Date ??? Hypertension ??? Anti-phospholipid antibody syndrome ??? Eczema ??? Herniated disc ??? Anemia, iron deficiency ??? Asthma ??? Pneumonia X2 ??? Thyroid nodule ??? Amyloidosis cutis 2010 Past Surgical History: Past Surgical History Procedure Laterality Date ??? Bone marrow biopsy ??? Hysterectomy ??? Thyroidectomy 06/01/2012 THYROIDECTOMY, TOTAL OR COMPLETE performed by LINDA RANGEL at [facility] MAIN OR ??? Somatosensory test, any/all per. nerves, trunk or head 06/01/2012 FACIAL NERVE MONITORING, SETUP performed by LINDA RANGEL at [facility] MAIN OR Medication History: Outpatient Prescriptions Marked as Taking for the 01/22/15 encounter (Hospital Encounter) with Yury Colon MD Medication Sig Dispense Refill ??? levothyroxine (SYNTHROID) 112 mcg Tablet Take 112 mcg by mouth daily. ??? albuterol (PROVENTIL HFA;VENTOLIN HFA;PROAIR) 90 mcg/actuation HFA Aerosol Inhaler Inhale 2 puffs into the lungs every 4 hours as needed for Wheezing. Use with spacer ??? hydrochlorothiazide (HYDRODIURIL) 25 mg Tablet Take 25 mg by mouth daily. ??? omeprazole (PRILOSEC) 40 mg Capsule, Delayed Release(E.C.) Take 40 mg by mouth daily. ??? traMADol (ULTRAM) 50 mg Tablet Take 50 mg by mouth every 6 hours as needed for Pain. ??? Levalbuterol Tartrate 45 mcg/actuation HFA Aerosol Inhaler Inhale 1-2 puffs into the lungs every4 hours as needed for Wheezing. ??? calcium-vitamin D 500 mg(1,250mg) -200 unit Tablet Take 1 tablet by mouth daily. ??? Cfqhs-BS7-ILA-TJM-QF6-Tqw-Astx 1000-130(40-80) mg Capsule Take 1 capsule by mouth daily. ??? fexofenadine (WAQAR) 60 mg tablet Take 180 mg by mouth daily. ??? simvastatin (ZOCOR) 20 mg tablet Take 20 mg by mouth nightly. ??? acetaminophen (TYLENOL EXTRA STRENGTH) 500 mg tablet Take by mouth as needed. Take 1-2 tabs of the (500mg) Tablets ??? WARFARIN SODIUM (WARFARIN ORAL) Allergies: No Known Allergies Social History: History Social History ??? Marital Status: Spouse Name: N/A Number of Children: N/A ??? Years of Education: N/A Occupational History ??? unemployed Social History Main Topics ??? Smoking status: Former Smoker -- 1.50 packs/day Types: Cigarettes Quit date: 08/14/1992 ??? Smokeless tobacco: Not on file ??? Alcohol Use: 0.6 oz/week 1 Glasses of wine per week Comment: per week ??? Drug Use: No ??? Sexual Activity: Not on file Other Topics Concern ??? Not on file Social History Narrative ??? No narrative on file Family History: Family History Problem Relation Age of Onset ??? Hypertension Mother ??? Hypertension Brother ??? Rheumatoid Arthritis Father ??? Rheumatoid Arthritis Brother PHYSICAL EXAM: Vitals: Last value Range last 24 hrs Temperature Temp: 36.5 ??C (97.7 ??F) Temp: [36.5 ??C (97.7 ??F)] Heart Rate Heart Rate: 97 Heart Rate: [89-97] Blood Pressure BP: 134/84 mmHg BP: (134-141)/(84-100) Respiratory Rate Resp: 25 Resp: [25] SpO2 SpO2: 99 % SpO2: [98 %-99 %] Intake/Output Summary (Last 24 hours) at 01/22/15 1418 Last data filed at 01/22/15 1359 Gross per 24 hour Intake 0 ml Output 0 ml Net 0 ml Patient Vitals for the past 168 hrs: Weight 01/22/15 1338 92.8 kg (204 lb 9.4 oz) Wt Readings from Last 3 Encounters: 01/22/15 92.8 kg (204 lb 9.4 oz) 03/10/14 88.4 kg (194 lb 14.2 oz) 05/20/13 88.905 kg (196 lb) Physical Exam: Gen: Pleasant, mildly anxious middle-aged female, lying in bed in no acute distress HEENT: NC/AT, PERRL, EOMI, anicteric sclera, MMM Neck: Supple, no JVD CV: Friction rub, muffled heart sounds Resp: CTAB, diminished breath sounds over L base, no increased work of breathing Abd: Soft, mildly distended, NABS, diffusely tender to palpation, no masses appreciated EXT: 1+ edema in bilateral lower extremities, no cyanosis or clubbing, intact distal pulses Skin: Lower extremity venous stasis changes, hyperpigmented nodules over bilateral calves Neuro: A&Ox4, CN II - XII grossly intact, moving all 4 extremities spontaneously, no focal deficits Labs: Recent Labs 01/22/15 1400 WBC 12.9* HGB 9.9* PLATELET 493* Recent Labs 01/22/15 1400 NA 132* K 3.3* CL 87* CO2 25 BUN 20* CREATININE 0.71 Recent Labs 01/22/15 1400 CALCIUM 7.7* Recent Labs 01/22/15 1400 AST 33* ALT 42* ALKPHOS 137* BILITOT 0.6 BILIDIR 0.2 No results for input(s): TROPONINT, CK in the last 168 hours. No results for input(s): PHART, EPG2AQO, PO2ART, QTW9IMU in the last 168 hours. Recent Labs 01/22/15 1400 PT 57.1* PTT 56* INR 5.9* Imaging Studies: - CXR 01/22: Pending - CT chest 01/22: Pending Assessment Francie Yusuf is a 54 year old female with a history of antiphospholipid antibody syndrome (on warfarin), amyloidosis, HTN, HLD, hypothyroidism, asthma and osteoarthritis who presented in transfer on 01/22 with pericardial tamponade. Etiology of her pericardial effusion is not yet clear; potential causesinclude infectious (viral, bacterial, fungal), malignancy (particuarly lung or breast cancer, mesothelioma), or hypothyroidism; (no history of recent trauma, TN, prior pericardiotomy or mediastinal radiation). She remains hemodynamically stable, with low suspicion for aortic dissection or free wall rupture. TTE, CXR, and CT of the chest are pending; anticipate further evaluation in medical laboratory technician this afternoon. Supratherapeutic INR is of unclear etiology; has dropped to 5.9 following vitamin K administration, and will administer FFP prior to transfer to medical laboratory technician. Plan: # Pericardial effusion with tamponade, unclear etiology - TTE pending - CXR pending - chest CT pending - anticipate transfer to medical laboratory technician thereafter for pericardial drainage # Antiphospholipid antibody syndrome on warfarin, with supratherapeutic INR (>9.2) - hold warfarin; INR [place] to [facility] - s/p vitamin K 2.5 mg PO x 1 - 4 units FFP pending # Hypothyroidism s/p total thryoidectomy - continue home levothyroxine 112 mcg PO daily - TSH pending # Asthma - albuterol 2 puffs q6h PRN # Hyperlipidemia - continue simvastatin 20 mg PO daily # Routine - DVT PPx: SCDs, holding warfarin for supratherapeutic INR - GI PPx: esomeprazole 40 mg PO daily - Diet/Fluids: NPO/none - Access: PIV - CODE STATUS: FULL CODE - Advanced Care Planning: - Dispo: Admit to S2, CVCC status Traci Hansen MD PGY-1, Internal Medicine Cardiology, S2 Service Pager [phone] 01/22/2015 I have interviewed and examined this patient, reviewed our findings and recommendations with her Fern agree with Dr. Hansen's note. documented in this encounter Procedure Notes Edwina Chavez MD - 01/25/2015 2:21 PM EDT Vascular and Interventional Radiology Procedure Note Procedure: US-guided chest tube placement A#: [id number] Indication: 54 y.o. female w/ h/o antiphospholipid antibody syndrome (on coumadin), amyloidosis, HTN, hypothyroidism, asthma and supra-therapeutic INR (9) transferred on 01/22 with pericardial tamponade(etiology unclear) s/p pericardial drain (bloody pericardial effusion), now removed. Patient w/ persi stent SOB and report of increased O2 need. CT shows increased left pleural effusion from 01/22, now w/ mixed heterogeneity c/w blood/blood clot. Consent: After discussing risks (including infection and hemorrhage), and benefits, informed verbal and written consent was obtained. Technique: A moment of truth was performed and the patient and procedure correctly identified. Splitdoses of fentanyl were administered by the IR nurse during continuous monitoring of pulse, blood pressure and oxygen saturation for alleviation of discomfort. The posterior left hemithorax was prepped and draped in the usual sterile fashion. Maximal sterile barrier technique was used throughout the procedure. 1% lidocaine was used as local anesthesia. Under US guidance, the pleural space was entered with a 21 gauge needle. There was free return of sanguinous pleural fluid. An .018 inch wire was placed into the pleural space and a 4 Fr introducer advanced. Inner dilator and wire removed and an .035 inch guidewire advanced. The tract was then dilated to 8 Fr and an 8 Fr pigtail catheter was advanced into the left pleural space. Locking loop was formed and catheter location in pleural fluid confirmed with U/S. The drain was connected to pleurovac drainage system (-20 cm H2O LWS). The patient tolerated the procedure with minimal discomfort. Complications: None immediate EBL: <1 cc Medications: 150 mg Fentanyl IV <10 cc 1% lidocaine SQ Findings: 1. Moderate left pleural effusion by U/S 2. U/S guided 8 Fr chest tube placement with expected return of sanguinous fluid. Fellow: Rajesh Curry MD Attending: Dr. Scott Oseguera, Dr. Chavez, was not present for this procedure. documented in this encounter Miscellaneous Notes Plan of Care - Brian Goff RN - 01/28/2015 4:29 AM EDT Problem: General Plan of Care Goal: Plan of Care Review 01/24/15 0630 01/27/151999 Plan of Care Review Plan of Care Outcome Status ongoing (interventions implemented as appropriate) -- Progress improving -- Coping/Psychosocial Response Interventions Plan of Care Reviewed with -- patient Goal: Individualization and Mutuality 01/24/15629 Individualization Patient Specific Goals adequate pain control Patient Specific Interventions encourage movement, prn tylenol Goal: Fall Prevention-Safe Patient Handling 01/27/151999 Safety Interventions Safety Precautions/Fall Reduction environmental modification;fall reduction program maintained;lighting adjusted for task/safety;low bed;muscle strengthening facilitated;nonskid shoes/slippers when outof bed;room near unit station;traffic safety administrator;supervised activity Musculoskeletal Interventions Activity/Level of Assistance up in room;independently Positioning independent Muscle Strengthening activity/mobility promoted;strengthening exercises performed Self-Care Promotion independence encouraged while providing assistance;personal/BADL objects within reach Rivera Fall Risk History of Falling 0 Secondary Diagnosis 15 Ambulatory Aids 0 Intravenous Therapy/Heparin/Saline Lock 20 Gait/Transferring 0 Mental Status 0 Score 35 Activity and Safety Assistive Device Oxygen OTHER Rivera Fall Risk Med Goal: Infection Control 01/27/151999 Safety Interventions Isolation Precautions standard precautions maintained Infection Prevention bronchial hygiene promoted;environmental surveillance;hydration promoted;nutrition promoted;promote handwashing;rest/sleep promoted Coping/Psychosocial Response Interventions Counseling calming techniques promoted;emotional support provided;reassurance provided;relaxation techniques promoted;understanding of situation facilitated;verbalization of feelings encouraged Goal: Discharge Needs Assessment 01/24/15 0630 01/26/15 1100 01/28/154 Discharge Needs Assessment Concerns to be Addressed no discharge needs identified -- -- Equipment Needed After Discharge -- -- none Self-Care Equipment Currently Used at Home -- -- none Current Health Anticipated Changes Related to Illness -- -- none Living Environment Transportation Available -- family or friend will provide;car -- Problem: Pain, Acute (Adult, Obstetrics) Intervention: Pain Management Interventions 01/27/15 2139 Pain/Comfort Interventions Pain Management Interventions multimodal measures utilized;medication dose titrated to patient response;activity minimized;relaxation promoted Goal: Identify Signs and Symptoms and Related Risk Factors Signs and symptoms and related risk factors are identified upon initiation of Human Response Clinical Practice Guideline (CPG) 01/28/15 0424 Pain, Acute Related Risk Factors (Acute Pain) fatigue;stress Signs and Symptoms (Acute Pain) sleep pattern alteration Goal: Acceptable Pain Control/Comfort Level Patient will demonstrate the desired outcomes. 01/27/15 0253 Pain, Acute (Adult, Obstetrics) Acceptable Pain Control/Comfort Level making progress toward outcome Problem: Fall/Trauma/Injury Risk (Adult, Obstetrics) Intervention: Muscle Strengthening 01/27/151999 Musculoskeletal Interventions Muscle Strengthening activity/mobility promoted;strengthening exercises performed Intervention: Self-Care Promotion 01/27/151999 Musculoskeletal Interventions Self-Care Promotion independence encouraged while providing assistance;personal/BADL objects within reach Intervention: Reality Orientation 01/27/151999 Cognitive/Perceptual/Neuro Interventions Reality Orientation calendar in view;clock in view;daily routine promoted;emotional support provided Intervention: Sensory Stimulation Regulation 01/28/15423 Cognitive/Perceptual/Neuro Interventions Sensory Stimulation Regulation calming techniques promoted;care clustered;lighting decreased Intervention: Sensation Impairment Protection 01/27/151999 Peripheral Neurovascular Interventions Sensation Impairment Protection environment clear of obstacles/tripping hazards;skin surveillance Intervention: Visual Performance Enhancement 01/27/151999 HEENT Interventions Visual Performance Enhancement lighting provided/adjusted;consistent room organization maintained Goal: Absence of Trauma/Injury/Falls Patient will demonstrate the desired outcomes. 01/27/15252 Fall/Trauma/Injury Risk (Adult, Obstetrics) Absence of Trauma/Injury/Falls making progress toward outcome Problem: Cardiac Output, Decreased (Adult, Obstetrics) Intervention: Airway/Ventilation Management 01/27/151999 Respiratory Interventions Airway/Ventilation Management activity adjusted to patient tolerance;bronchial hygiene promoted;comfort measures provided;hydration promoted Intervention: Hemodynamic Stabilization 01/27/151999 Cardiac Interventions Hemodynamic Stabilization quiet environment promoted Intervention: Dysrhythmia Management 01/27/151999 Cardiac Interventions Dysrhythmia Management electrolytes adjusted Intervention: Fluid Management 01/27/151999 Nutrition Interventions Fluid Management fluids promoted Intervention: Functional Edna/Activity Promotion 01/27/151999 Musculoskeletal Interventions Functional Edna/Activity Promotion ambulation to/from bathroom promoted;sitting for BADLs encouraged Goal: Adequate Cardiac Output/Effective Tissue Perfusion Patient will demonstrate the desired outcomes. 01/28/15423 Cardiac Output, Decreased (Adult, Obstetrics) Adequate Cardiac Output/Effective Tissue Perfusion making progress toward outcome Problem: Skin Integrity Impairment, Risk/Actual (Adult, Obstetrics) Intervention: Pressure Reduction Devices 01/27/151999 Skin Interventions Pressure Reduction Devices pressure-redistributing mattress utilized Intervention: Pressure Reduction Techniques 01/27/151999 Skin Interventions Pressure Reduction Techniques tubing/devices free from under/on patient Intervention: Skin/Mucous Membrane Protection 01/27/151999 Skin Interventions Skin/Mucous Membrane Protection tubing/devices free from under/on patient Intervention: Wound Healing Promotion 01/27/151999 Skin Interventions Wound Healing Promotion sleep/rest promoted Goal: Skin Integrity/Wound Healing Patient will demonstrate the desired outcomes. 01/27/15 025 Skin Integrity Impairment, Risk/Actual (Adult, Obstetrics) Skin Integrity/Wound Healing making progress toward outcome Comments: OUTCOME EVALUATION NOTE: OUTCOME SUMMARY: Alert and oriented. Pt slept for most of the shift. Pt's incisional pain control with tylenol. Pt denies chest pain, SOB, or fatigue during the shift. Ambulating independently in the room. VSS. HR in 60-90s SR PLAN MOVING FORWARD: Continue to monitor. INDIVIDUALIZED FALL PREVENTION: Assistance: Independent Supervision: During ambulating. Ring call light appropriately Surveillance: Hourly rounding and PRn CPG GOAL OUTCOME EVALUATION: Pt continue to make progress toward goals and discharge Plan of Care - Shadia Rodriguez RN - 01/27/2015 6:33 PM EDT Problem: Pain, Acute (Adult, Obstetrics) Goal: Identify Signs and Symptoms and Related Risk Factors Signs and symptoms and related risk factors are identified upon initiation of Human Response Clinical Practice Guideline (CPG) Outcome: Ongoing (Interventions Implemented as Appropriate) 01/24/15 0630 Pain, Acute Related Risk Factors (Acute Pain) anxiety;fatigue;stress Signs and Symptoms (Acute Pain) facial mask of pain/grimace;fatigue/weakness;verbalization of pain descriptors Goal: Acceptable Pain Control/Comfort Level Patient will demonstrate the desired outcomes. Outcome: Ongoing (Interventions Implemented as Appropriate) 01/27/15 0253 Pain, Acute (Adult, Obstetrics) Acceptable Pain Control/Comfort Level making progress toward outcome Problem: Fall/Trauma/Injury Risk (Adult, Obstetrics) Goal: Absence of Trauma/Injury/Falls Patient will demonstrate the desired outcomes. Outcome: Ongoing (Interventions Implemented as Appropriate) 01/27/15 0253 Fall/Trauma/Injury Risk (Adult, Obstetrics) Absence of Trauma/Injury/Falls making progress toward outcome Problem: Cardiac Output, Decreased (Adult, Obstetrics) Goal: Adequate Cardiac Output/Effective Tissue Perfusion Patient will demonstrate the desired outcomes. Outcome: Ongoing (Interventions Implemented as Appropriate) 01/27/15 0253 Cardiac Output, Decreased (Adult, Obstetrics) Adequate Cardiac Output/Effective Tissue Perfusion achieves outcome Comments: OUTCOME EVALUATION NOTE: OUTCOME SUMMARY: CT out today. Pt reports pain is improved post removal, requiring only 2 mg dilaudid now instead of 4 mg dilaudid. Ambulating now independently. No SOB reported. Ambulated 320 ft, no symptoms reported during or after walk. PLAN MOVING FORWARD: Pain management, monitor INR/CP/SOB INDIVIDUALIZED FALL PREVENTION: Assistance: ind Supervision: Call lay within reach Surveillance: Tele, rounding CPG OUTCOME EVALUATION: ongoing Consult Note - Krissy Orosco MD - 01/27/2015 12:31 PM EDT Images from the original note were not included. Hematology/Oncology Attending: Krissy Orosco Initial Consult Date: 01/27/15 Admission Date: 01/22/2015 Service: Cardiology Attending: Linden Pacheco MD Consult Question: We are seeing Francie Yusuf for evaluation of antiphospholipid syndrome. I have reviewed the available records, interviewed, and examined the patient. HPI: Ms. Yusuf is a 54 year old woman with a history of antiphospholipid syndrome on coumadin since 2001, cutaneous amyloidosis, who in late December started to have worsening shortness of breath and severe, sharp, chest pain. She was evaluated at an outside hospital on 01/22 and a TTE showed a pericardial effusion with an INR >9.2. Her platelets were 526 and Hgb was 10.3. She was given Vitamin K 2.5mg PO once and immediately transferred [place] [facility] on arrival [place] [facility] [place] 5.9. She was given 4 units of FFP (total of 8 units on this admission, last 2 days ago). She showed evidence of tamponade physiology. A CT showed a large pericardial effusion. She underwent a pericardiocentesis and 780cc's of bloody f luid was drained. . On 01/24, she had a CXR showing worsening of her left pleural effusion. Her INR was 2.2 and thus Vitamin K 2.5mg was given. She underwent a chest tube placement on 01/25 and drained 800cc of bloody fluid. Her INR today was 1.3 and thus an additional vitamin K 1.25mg was given. She is being evaluated by rheumatology for possible Lupus. She has a prior positive YELENA but negative dsDNA. She has been started on steroids. In regards to her history of APLA, she was diagnosed in 2001. She originally saw Dr. Lowe from rheumatology for a workup of unexplained headaches and facial numbness. She had a MRI that showed white matter changes. Per chart review, the workup for APLA showed: 09/27/01 Anti-cardiolipin Ig (normal <15) Anti-cardiolipin IgM: 17 (<13) Anti-b2-GP IgG <21 (<20) Tzsy-hbuy-6-glycoprotein IgM 82 (<20) She denies any history of DVT/PE/CVA/TN. She had one miscarriage in 1999 at ~10 weeks and 2 successful deliveries. Her sister also had a miscarriage. Since starting coumadin, she has had a few episodesof severe epistaxis requiring cauterization. She also had worsening menorrhagia while on coumadin that required dilation/curettage and an eventual hysterectomy. She denies any other bleeding. In regards to her amyloid cutis, she is followed by dermatology and hematology in clinic. Her last visit was 1 year ago. The lesions have been stable although she notes a new skin lesion on her right leg. Past Medical History: Patient Active Problem List Diagnosis ??? Cardiac tamponade ??? Acute bloody pericarditis ??? Supratherapeutic INR ??? Pleural effusion ??? S/P complete thyroidectomy ??? Amyloidosis cutis ??? 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 Followed by [facility] and [facility]. W/U to date w/ neg ECHO at [facility]. CT w/ one para-aortic 2cm LN which we will follow. Neg SPEP and 24 hour urine at [facility]. Neg fat pad biopsy. BMBx not [...] In addition, there is superficial anddeep perivascular Kelso+, Lambda- plasma cell infiltrate. Please correlate with [...] remain negative. A/P- cutaneous amyloidosis with symptomatic densno lesions. ?? CT February 2014 with 1cm [...] calf pain on reclining ??? Miscarriage One History Social History ??? Marital Status: Spouse [...] ??? Not on file Social History Narrative Family History Problem Relation Age of Onset ??? Hypertension Mother ??? Hypertension Brother ??? Rheumatoid Arthritis Father ??? Rheumatoid Arthritis Brother ROS: Except as stated in HPI, all other systems reviewed and negative. Meds: reviewed in MAR, notable for following: Scheduled Meds: ??? predniSONE 20 mg Oral Daily ??? acetaminophen 1,000 mg Oral TID ??? melatonin 3 mg Oral Nightly ??? lidocaine 1 patch Transdermal Daily And ??? lidocaine 1 patch Transdermal Nightly ??? sodium chloride 0.9 % 5 mL Intravenous Q12H ??? chlorhexidine 15 mL Oral 2 times per day ??? levothyroxine 112 mcg Oral QAM ??? esomeprazole 40 mg Oral Daily ??? simvastatin 20 mg Oral QPM Continuous Infusions: ??? sodium chloride 0.9% PRN Meds:.HYDROmorphone OR HYDROmorphone, senna-docusate, promethazine OR promethazine, sodium chloride 0.9 %, lidocaine, sodium chloride 0.9%, albuterol, docusate sodium Outpatient medications: No current facility-administered medications on file prior to encounter. Current Outpatient Prescriptions on File Prior to Encounter Medication Sig Dispense Refill ??? fexofenadine (WAQAR) 60 mg tablet Take 180 mg by mouth daily. ??? simvastatin (ZOCOR) 20 mg tablet Take 20 mg by mouth nightly. ??? acetaminophen (TYLENOL EXTRA STRENGTH) 500 mg tablet Take by mouth as needed. Take 1-2 tabs of the (500mg) Tablets ??? WARFARIN SODIUM (WARFARIN ORAL) Allergies: Review of patient's allergies indicates no known allergies. Physical Exam: Last value Range last 24 hrs Temperature Temp: 36.4 ??C (97.5 ??F) Temp: [36.4 ??C (97.5 ??F)-37 ??C (98.6 ??F)] Heart Rate Heart Rate: 75 Heart Rate: [68-75] Blood Pressure BP: 126/67 mmHg BP: (126-171)/(67-81) Respiratory Rate Resp: 18 Resp: [16-20] SpO2 SpO2: 98 % on RA SpO2: [96 %-100 %] Intake/Output Summary (Last 24 hours) at 01/27/15 1232 Last data filed at 01/27/15 1222 Gross per 24 hour Intake 810 ml Output 1450 ml Net -640 ml Constitutional: pleasant, cooperative; no apparent distress; H&N: oral mucosa - moist, no oral lesions Cardiovascular: RRR, no m/r/g, 2+ radial and pedal pulses Respiratory: decreased breath sounds at bilateral bases (L>R) Hem/Lymph/Immuno: No palpable lymphadenopathy GI: Soft, NT, ND, no organomegaly, BS+ : No CVA tenderness Skin: multiple hyperpigmented nodules/plaques on lower extremities Neuro: no focal deficits Extremities: No peripheral edema Labs: Recent Labs 01/27/15 0434 01/26/15 0344 01/25/15 0455 01/24/15 1516 01/24/15 0514 WBC 6.8 5.6 6.9 9.3 9.9 HGB 11.7 9.8* 8.9* 10.0* 9.3* PLATELET 472* 432* 385* 419* 390* Lab Results Component Value Date NEUTROABS 6.10 01/27/2015 Recent Labs 01/27/15 0434 01/26/15 0344 01/25/15 0455 01/24/15 0514 01/23/15 0325 NA 138 141 140 139 141 K 4.4 3.7 3.7 3.5 4.0 CL 99 101 103 98 98 CO2 26 26 29 29 29 BUN 10 10 12 18 21* CREATININE 0.60* 0.57* 0.57* 0.64* 0.80 GLUCOSE 127 102 104 108 117 CALCIUM 8.0* 7.7* 7.7* 7.7* 7.9* Recent Labs 01/26/15 0344 01/24/15 0514 01/23/15 0325 01/22/15 1400 PROT 5.7* 5.8* 6.3 6.6 ALBUMIN -- 3.2 3.5 3.6 BILITOT -- 0.4 0.5 0.6 BILIDIR -- 0.2 0.2 0.2 AST -- 16 26 33* ALT -- 26 33* 42* ALKPHOS -- 126* 119* 137* Recent Labs 01/27/15 0434 01/26/15 0344 01/25/15 0455 01/24/15 0514 01/23/15 0325 INR 1.2* 1.3* 1.4* 2.2* 2.4* PT 16.2* 16.7* 18.0* 26.1* 28.1* PTT 32 32 35 42* 45* Radiology/Studies: Reviewed CT and CXR images on this admission ASSESSMENT/PLAN: The patient is a 54 y.o. woman with a history of antiphospholipid syndrome, presenting with a hemopericardium and hemothorax. First in regards to her antiphosopholipid syndrome, the diagnosis is suspected and confirmed (S[place]oro criteria) based on both clinical (history arterial/venous thromboses and/or history of miscarriages, more suspicious if in 3rd trimester) and laboratory evidence (elevated anticardiolipin or vnrugvrg6fwuerzpleths IgG/IgM; presence of lupus anticoagulant). She denies any history of DVTs. She has a questionable history of a CVA based on a brain MRI in the setting of headaches of unclear etiology. Shehad a miscarriage but only one and that was in her first trimester. She also had an elevated anti-beta2 glycoprotein IgM. It is not clear from the chart review that the original diagnostic labs were ever repeated after a period of 6 weeks to confirm the diagnosis. We would consider repeating the testsbut as an outpatient. But we would continue to treat her as if she has APLS. Once the bleeding stops, we would like to restart her on anticoagulation. The question is whether or not we would restart Coumadin or if we can get away with just giving Aspirin given she only a history of a questionable CVA.She should be on compression stocking for DVT prophylaxis. As to why she is bleeding, it is unclear. The primary team has a working diagnosis of a possible viral pericarditis. Rheumatology is also on board and thinks this is likely autoimmune in nature. They are working the patient up for lupus and have started steroids. As we are from heme/onc, naturally we worry about a possible malignancy. Please send off pleural/pericardial fluid for cytology and a lymphoma/leukemia screen. She has a history of amyloid cutis. She last saw dermatology in 02/2014. She notes a new nodule on her leg since she was last seen. Per Dr. Valera, who she follows in hematology clinic, the treatments we have right now will not change the overall course of disease. But please check a SPEP and serum free light chains to ensure there is no underlying plasma cell dyscrasia as if shehas one, than AL amyloidosis would be on the differential which can cause a pericardial effusion. Thank you for the courtesy of this consult. Don't hesitate to call us should you have any questions/concerns. Eber Bolden MD Hematology/Oncology fellow Pager [phone] +*+*+*+*+*+*+*+*+*+*+*+*+*+*+*+*+*+*+*+*+*+*+*+*+*+*+*+*+*+*+*+*+*+*+*+*+*+* Thrombosis Attending Physician I have independently interviewed and examined this patient and have personally reviewed the relevantclinical, laboratory and radiological data with Dr. Bolden, Hematology/Oncology Fellow. Please refer tothe comprehensive consultation note above, with which I concur, for complete details of our encounter with this patient. I have reviewed and endorse the recommendations as outlined and have made any additions/corrections below. Mrs. Yusuf is a 54 year old woman with history of antiphospholipid syndrome who has been on chronic anticoagulation with warfarin since 2001. She was admitted for hemopericardium and bloody left pleuraleffusion in the setting of supratherapeutic INR of 9. We were asked to manage her anticoagulation. First I reviewed the [employer] Consensus Conference [...] (i.e., >/=40 MPL or GPL), AND/OR 3) Ktor-hzfu9-omzlgyhkcegn-1 antibody (IgM or IgG) at a level >99th percentile (i.e., >100 units in [facility] [place]). The relevant antiphospholipid antibody must be [...] be spontaneous. I reviewed her previous lab which showed elevated anticardiolipin and anti beta-2 glycoprotein antibody that were elevated, but they were not high enough to meet the criteria above and I have not seen a repeat lab testing. I would recommend to repeat the testing to confirm the diagnosis of APS, but would not recommend to perform it now because acute inflammation could possibly cause elevation of these antibodies. Currently I agree with her primary cardiology team that anticoagulation should be held at this point. We discussed that given that she has never had history of DVT/PE, we can consider to put her on antiplatelet therapy with aspirin for secondary prevention of arterial disease once her bleeding subsided. The efficacy data supporting a role for anticoagulation in ischemic stroke associated with anticardiolipin antibodies are weak, and the best study (WARSS/APASS) in this area does not show a definite benefit for warfarin compared to high dose aspirin (325 mg daily). Moreover, the presence of anticardiolipin antibodies at the time of the acute event did not predict or an increased risk for recurrent events in either the warfarin or aspirin group in this study. That said, the WARSS/APASS study did not mandate confirmation of persistence of the antibody over time, thus whether those with persistent anti bodies are at higher risk for thrombosis with one or the other antithrombotic approach is unknown. Current recommendations for treatment of non-cerebral arterial thrombosis in antiphospholipid syndrome are for full anticoagulation with a plasmatic anticoagulant (e.g., heparin, warfarin), and this isbased purely on extrapolation from venous thromboembolism data without the existence of comparable data on arterial thrombosis. In view of this and the results of WARSS/APASS, therefore, antiplatelet agents are considered reasonable for cerebral arterial thrombosis in this case, along with aggressive treatment of classical cardiovascular risk factors (hypertension, dyslipidemia etc.). 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 While I don't think that her symptom is related to cardiac amyloidosis, it would be good to check SPEP, serum free light chain, quantitative immunoglobuline. I would also recommend to send the fluid out for cytology and lymphoma/leukemia screen if there is still some available. ?? Hold antiplatelet and anticoagulation therapy for now ?? Consider aspirin 325 mg PO once daily once bleeding subsided. If there is still a concern of bleeding, may start with aspirin 81 mg PO daily before increasing the dose to 325 mg PO daily. ?? Mechanical thrombophylaxis during hospitalization including venodyne, compression stocking, ambulation to minimize VTE risk ?? Check SPEP, SLC, quantitative immunoglobuline ?? If possible, please send fluid sample to cytology and lymphoma/leukemia to rule out malignancy ?? Will plan to recheck her antiphospholipid panel in the outpatient setting Krissy Orosco MD Thrombosis Clinic Plan of Care - Jarett Davison RN - 01/27/2015 5:41 AM EDT Problem: General Plan of Care Goal: Plan of Care Review Outcome: Ongoing (Interventions Implemented as Appropriate) 01/24/1562901/26/15 1920 Plan of Care Review Plan of Care Outcome Status ongoing (interventions implemented as appropriate) -- Progress improving -- Coping/Psychosocial Response Interventions Plan of Care Reviewed with -- patient;spouse Goal: Individualization and Mutuality Outcome: Ongoing (Interventions Implemented as Appropriate) 01/24/1562901/26/15 1100 Individualization Patient Specific Goals adequate pain control -- Patient Specific Interventions encourage movement, prn tylenol -- Mutuality/Individual Preferences What anxieties, fears or concerns do you have about your health or care? -- anxiety r/t AAS vs coumadin med managment What questions do you have about your health or care? -- none What information would help us give you more personalized care? -- none Goal: Fall Prevention-Safe Patient Handling Outcome: Ongoing (Interventions Implemented as Appropriate) 01/26/15 0923 01/26/151919 Safety Interventions Safety Precautions/Fall Reduction -- fall reduction program maintained;family at bedside;lighting adjusted for task/safety;low bed;nonskid shoes/slippers when out of bed;supervised activity Musculoskeletal Interventions Activity/Level of Assistance -- up in room Positioning -- independent Muscle Strengthening activity/mobility promoted -- Self-Care Promotion independence encouraged while providing assistance -- Rivera Fall Risk History of Falling -- 0 Secondary Diagnosis -- 15 Ambulatory Aids -- 0 Intravenous Therapy/Heparin/Saline Lock -- 20 Gait/Transferring -- 0 Mental Status -- 0 Score -- 35 Activity and Safety Assistive Device -- Oxygen OTHER Rivera Fall Risk -- Med Goal: Infection Control Outcome: Ongoing (Interventions Implemented as Appropriate) 01/24/15 0801/26/151919 Safety Interventions Isolation Precautions -- standard precautions maintained Infection Prevention -- bronchial hygiene promoted;environmental surveillance;hydration promoted;nutrition promoted;promote handwashing;rest/sleep promoted Coping/Psychosocial Response Interventions Counseling calming techniques promoted -- Goal: Discharge Needs Assessment Outcome: Ongoing (Interventions Implemented as Appropriate) 01/24/15 0630 01/26/15 1100 Discharge Needs Assessment Concerns to be Addressed no discharge needs identified -- Living Environment Transportation Available -- family or friend will provide;car Problem: Pain, Acute (Adult, Obstetrics) Goal: Identify Signs and Symptoms and Related Risk Factors Signs and symptoms and related risk factors are identified upon initiation of Human Response Clinical Practice Guideline (CPG) Outcome: Ongoing (Interventions Implemented as Appropriate) 01/24/15629 Pain, Acute Related Risk Factors (Acute Pain) anxiety;fatigue;stress Signs and Symptoms (Acute Pain) facial mask of pain/grimace;fatigue/weakness;verbalization of pain descriptors Goal: Acceptable Pain Control/Comfort Level Patient will demonstrate the desired outcomes. Outcome: Ongoing (Interventions Implemented as Appropriate) 01/27/15 025 Pain, Acute (Adult, Obstetrics) Acceptable Pain Control/Comfort Level making progress toward outcome Problem: Fall/Trauma/Injury Risk (Adult, Obstetrics) Goal: Identify Signs and Symptoms and Related Risk Factors Signs and symptoms and related risk factors are identified upon initiation of Human Response Clinical Practice Guideline (CPG) Outcome: Ongoing (Interventions Implemented as Appropriate) 01/24/15 0630 Fall/Trauma/Injury Risk Personal Related Risk Factors (Fall/Trauma/Injury Risk) emotional state;fatigue/slowed reaction time;sleep disturbance Environmental Related Risk Factors (Fall/Trauma/Injury Risk) environment unfamiliar Physiological Related Risk Factors (Fall/Trauma/Injury Risk) pain Signs and Symptoms (Fall/Trauma/Injury Risk) presence of risk factors Goal: Absence of Trauma/Injury/Falls Patient will demonstrate the desired outcomes. Outcome: Ongoing (Interventions Implemented as Appropriate) 01/27/15252 Fall/Trauma/Injury Risk (Adult, Obstetrics) Absence of Trauma/Injury/Falls making progress toward outcome Problem: Cardiac Output, Decreased (Adult, Obstetrics) Goal: Identify Signs and Symptoms and Related Risk Factors Signs and symptoms and related risk factors are identified upon initiation of Human Response Clinical Practice Guideline (CPG) Outcome: Outcome (s) achieved Date Met: 01/27/15 Goal: Adequate Cardiac Output/Effective Tissue Perfusion Patient will demonstrate the desired outcomes. Outcome: Ongoing (Interventions Implemented as Appropriate) 01/27/15252 Cardiac Output, Decreased (Adult, Obstetrics) Adequate Cardiac Output/Effective Tissue Perfusion achieves outcome Problem: Skin Integrity Impairment, Risk/Actual (Adult, Obstetrics) Goal: Identify Signs and Symptoms and Related Risk Factors Signs and symptoms and related risk factors are identified upon initiation of Human Response Clinical Practice Guideline (CPG) Outcome: Ongoing (Interventions Implemented as Appropriate) Goal: Skin Integrity/Wound Healing Patient will demonstrate the desired outcomes. Outcome: Ongoing (Interventions Implemented as Appropriate) 01/27/15252 Skin Integrity Impairment, Risk/Actual (Adult, Obstetrics) Skin Integrity/Wound Healing making progress toward outcome Comments: OUTCOME EVALUATION NOTE: OUTCOME SUMMARY: Improved pain control overnight from night prior. Pt receiving PRN Dilaudid Q4 withgood effect. Scant drainage from CT. PLAN MOVING FORWARD: Pain control, Pleural CT remains in INDIVIDUALIZED FALL PREVENTION: Call lay within reach. Pt rings appropriately. See flow sheet for additional documented safety measures taken. Assistance: Stand by assist Supervision: 24 hours Surveillance: Hourly purposeful rounding CPG OUTCOME EVALUATION: Pt skin intact Pt remained free of falls. Pt asymptomatic to dysthymias. Med Student Progress Note - Ale Howard - 01/27/2015 5:09 AM EDT Inpatient Cardiology Progress Note Patient Name: Francie Gonzales Yusuf Service: Cardiology Responsible Attending: Linden Pacheco MD Reason for continued hospitalization: Patient is a 54 y/o female with a PMH notable for HTN, anti-phospholipid antibody syndrome, anemia, thyroid nodule and amyloidosis cutis that was admitted on 01/22 with hemopericardium/cardiac tamponadethat developed a hemothorax on 01/24 after removal of chest pigtail. Active Problems: Pericardial Tamponade Hemothorax HTN Antiphospholipid antibody syndrome Amyloidosis 24 hour events/subjective: - no acute events overnight - seen by rheumatology yesterday; recommended prednisone 20 mg and to check YELENA, dsDNA, C3, C4, CH50, ANITA, INCOME TAX EXPERT and Rees Ab. Would also like input from hem/coagulation team regarding coumadin. - drained 100 cc in the last 24 hours - denies SOB, abdominal pain, nausea, vomiting - states improved chest pain; received scheduled dilaudid 4 mg Q4HR yesterday - patient reports constipation, no BM for 2 days Review of Systems: Review of Systems Constitutional: Positive for activity change. Negative for appetite change. Respiratory: Positive for chest tightness. Negative for cough and shortness of breath. Cardiovascular: Negative for chest pain, palpitations and leg swelling. Improved respirophasic chest pain Gastrointestinal: Negative for abdominal pain and abdominal distention. Telemetry: HR: 62-86; NSR; no events Meds: Scheduled Meds: ??? predniSONE 20 mg Oral Daily ??? acetaminophen 1,000 mg Oral TID ??? melatonin 3 mg Oral Nightly ??? lidocaine 1 patch Transdermal Daily And ??? lidocaine 1 patch Transdermal Nightly ??? sodium chloride 0.9 % 5 mL Intravenous Q12H ??? chlorhexidine 15 mL Oral 2 times per day ??? levothyroxine 112 mcg Oral QAM ??? esomeprazole 40 mg Oral Daily ??? simvastatin 20 mg Oral QPM Continuous Infusions: ??? sodium chloride 0.9% PRN Meds:HYDROmorphone OR HYDROmorphone, senna-docusate, promethazine OR promethazine, sodium chloride 0.9 %, lidocaine, sodium chloride 0.9%, albuterol, docusate sodium Physical Exam: Vital Signs: Temp: [36.4 ??C (97.5 ??F)-37 ??C (98.6 ??F)] Heart Rate: [67-75] Resp: [16-20] BP: (126-171)/(67-81) SpO2: [96 %-100 %] Intake/Output Summary (Last 24 hours) at 01/27/15 1137 Last data filed at 01/27/15 1002 Gross per 24 hour Intake 810 ml Output 1430 ml Net -620 ml Patient Vitals for the past 168 hrs: Weight 01/27/15 0554 89.7 kg (197 lb 12 oz) 01/26/15 0444 95.437 kg (210 lb 6.4 oz) 01/25/15 0705 93 kg (205 lb 0.4 oz) 01/24/15 0610 92.1 kg (203 lb 0.7 oz) 01/23/15 0646 91.7 kg (202 lb 2.6 oz) 01/22/15 1338 92.8 kg (204 lb 9.4 oz) Physical Exam Constitutional: She is oriented to person, place, and time. She appears well- developed and well-nourished. No distress. Eyes: Conjunctivae are normal. No scleral icterus. Neck: No JVD present. Cardiovascular: Normal rate, regular rhythm and normal heart sounds. Exam reveals no gallop and no friction rub. No murmur heard. Pulmonary/Chest: Effort normal and breath sounds normal. No respiratory distress. She has no wheezes. She has no rales. She exhibits no tenderness. Abdominal: Soft. Bowel sounds are normal. She exhibits no distension and no mass. There is no tenderness. There is no rebound and no guarding. Neurological: She is alert and oriented to person, place, and time. Skin: Skin is warm and dry. She is not diaphoretic. Lab Comments: Recent Labs 01/27/15 0434 01/26/15 0344 01/25/15 0455 WBC 6.8 5.6 6.9 HGB 11.7 9.8* 8.9* HCT 35.1 29.4* 26.7* PLATELET 472* 432* 385* Recent Labs 01/27/15 0434 INR 1.2* Recent Labs 01/27/15 0434 01/26/15 0344 01/25/15 0455 NA 138 141 140 K 4.4 3.7 3.7 CL 99 101 103 CO2 26 26 29 BUN 10 10 12 CREATININE 0.60* 0.57* 0.57* Recent Labs 01/24/15 0514 01/23/15 0325 01/22/15 1400 AST 16 26 33* ALT 26 33* 42* ALKPHOS 126* 119* 137* BILITOT 0.4 0.5 0.6 BILIDIR 0.2 0.2 0.2 Recent Labs 01/27/15 0434 01/26/15 0344 01/25/15 0455 CALCIUM 8.0* 7.7* 7.7* No results for input(s): CK, TROPONINT in the last 168 hours. Pertinent Radiographic/Diagnostic Results: TTE: SUMMARY: 1. Limited echocardiogram follow up for pericardial effusion 2. Global left ventricular wall motion and contractility are probably within normal limits. The visually estimated left ventricular ejection fraction is 65% The right ventricle is probably normal in size. 3. Normal valve structures 4. Normal chamber dimensions 5. There is a small posterior pericardial effusion. There is no echo or doppler evidence of pericardial tamponade. When compared to the prior 01/23/15 study, the effusion appears smaller Thoracentesis: Findings: 1. Moderate left pleural effusion by U/S 2. U/S guided 8 Fr chest tube placement with expected return of sanguinous fluid. Assessment: Patient is a 54 y/o female with a PMH notable for HTN, anti- phospholipid antibody syndrome, anemia, thyroid nodule and amyloidosis cutis that was admitted on 01/22 with hemopericardium/cardiac tamponade that developed a hemothorax on 01/24 after removal of chest pigtail. Physical exam at time of admittance consistent with diagnosis of cardiac tamponade. She had distant heart sounds and pulsus paradoxus. CT results were also consistent with diagnosis as it revealed a large pericardial effusion. Etiology of her current presentation is still unknown. Pericardial effusions are most often caused by infections, malignancy or endocrine abnormalities most specifically hypothyroidism. Trauma can alsolead to this presentation but patient denies recent trauma as well as recent surgery. In the case ofour patient, hemopericardium was most likely due to supratherapeutic INR (>9.2).Pericardiocentesis was performed on 01/22 and yielded ~1L of serosanginous fluid. After pericardial drain tube was removed on Monday (01/23) patient experienced an increased O2 need and on further evaluation was noted to have a L pleural effusion. Thoracentesis was performed and ~2L of serosanguinous fluid has been drained thus far. Output in the last 24 hours has been ~100 cc; tube may be removed today. INR remains mildly elevated today at 1.2 (s/p vitamin K and FFP). Will administer additional vitaminK until an INR of 1 has been reached. Rheumatology has been involved in patient care and in trying to formulate a cause for excessive bleeding. The thought is that pleuropericarditis is secondary to an autoimmune cause. They have suggestedadding prednisone 20 mg to medication list as well as checking for multiple labs to evaluate for lupus (still pending). Regarding rheumatologic disorders patient would benefit from warfarin administration however given her unexplained bleeding this medication needs to be held. Rheumatology also recommended hematology c/s to aid in determining the best treatment plan regarding intermediate anticoagulation. PLAN OF MANAGEMENT: #Left hemothorax - additional vitamin K 1.25 mg PO today - anticipate chest tube removal by IR today # Hemopericardium with tamponade, unclear etiology - rheumatology consulted; cause maybe of autoimmune etiology - f/u additional lab work: YELENA, dsDNA, C3, C4, CH50, ANITA, INCOME TAX EXPERT, anti-Sm Ab - Prednisone 20 mg PO daily # Antiphospholipid antibody syndrome on warfarin, with supratherapeutic INR (>9.2) - continue to hold warfarin; [place] [facility] 5.[facility]; now 1.2 - heme c/s pending per rheumatology recommendation # Hypothyroidism s/p total thryoidectomy - continue home levothyroxine 112 mcg PO daily # Asthma - albuterol 2 puffs q6h PRN # Hyperlipidemia - continue simvastatin 20 mg PO daily # Routine - DVT PPx: SCDs, holding warfarin for supratherapeutic INR - GI PPx: esomeprazole 40 mg PO daily - Diet/Fluids:regular/none - Access: PIV - CODE STATUS: FULL CODE - Dispo: pending clinical course Ale Howard MS3 Pager#[phone] 01/27/2015 Plan of Care - Shadia Rodriguez RN - 01/26/2015 5:59 PM EDT Problem: Pain, Acute (Adult, Obstetrics) Goal: Acceptable Pain Control/Comfort Level Patient will demonstrate the desired outcomes. Outcome: Ongoing (Interventions Implemented as Appropriate) 01/24/15 232 Pain, Acute (Adult, Obstetrics) Acceptable Pain Control/Comfort Level making progress toward outcome Problem: Fall/Trauma/Injury Risk (Adult, Obstetrics) Goal: Absence of Trauma/Injury/Falls Patient will demonstrate the desired outcomes. Outcome: Ongoing (Interventions Implemented as Appropriate) 01/24/15 232 Fall/Trauma/Injury Risk (Adult, Obstetrics) Absence of Trauma/Injury/Falls making progress toward outcome Problem: Cardiac Output, Decreased (Adult, Obstetrics) Goal: Adequate Cardiac Output/Effective Tissue Perfusion Patient will demonstrate the desired outcomes. Outcome: Ongoing (Interventions Implemented as Appropriate) 01/24/151 Cardiac Output, Decreased (Adult, Obstetrics) Adequate Cardiac Output/Effective Tissue Perfusion making progress toward outcome Comments: OUTCOME EVALUATION NOTE: OUTCOME SUMMARY: Pain controled with po dilaudid and tylenol, pt states pain can still be positional with ambulation.Encouraged ambulation and pt participation in care. CT dressing CDI. 70 mL [address] output [address] during shift, serosanguinous becoming more clear. Consult with rheumatology, will begin steroids. PLAN MOVING FORWARD: Steroids per rheumatology, cont to monitor CT, manage pain, encourage ambulation/independence INDIVIDUALIZED FALL PREVENTION: Assistance: 1 assist Supervision: Call lay within reach Surveillance: Tele, rounding CPG OUTCOME EVALUATION: ongoing Care Management - Daxa Lees RN - 01/26/2015 10:24 AM EDT Office of Care Management Clinical Diesel Pile Hammer Operator Patient Name: Francie Yusuf : 1960, 54 yrs Admission Date: 01/22/2015 1:30 PM Attending: Linden Pacheco MD Order to Admit: signed Discussed patient with Provider Team and in multidisciplinary discharge-planning rounds. Reviewed record and interviewed patient. Introduced/reviewed CRC role and services accepted. REASON for HOSPITALIZATION: [place] [facility] [place] cardiac [place]on[place]. Has chest tube. history of antiphospholipid antibody syndrome (on warfarin), amyloidosis, HTN, HLD, hypothyroidism, asthma and osteoarthritis PMH: Refer to H&P for details PREVIOUS FUNCTIONAL STATUS: Independent with all ADLs, personal care and driving CURRENT FUNCTIONAL STATUS: Resting in hospital bed on tele, O2 and has CT SOCIAL / FAMILY SUPPORTS: stated lives with friend and will have 24/7 care once d/c. Home is 3 stories and bedroom is on 2nd floor. No issues with mobility prior to illness. Ambulates unassisted. ADVANCE DIRECTIVES: On File (), Requested Copy(), None on File (x) HEALTH /PRESCRIPTION COVERAGE: [facility] CURRENT HOME/COMMUNITY SERVICES/EQUIPMENT: DME: none Home Health Agency: none CAMP HOUSEKEEPER REFERRAL: Notified CAMP HOUSEKEEPER - for Support/Financial/Medication Assistance; See CAMP HOUSEKEEPER notes for further needs. Pt has concerns re: cost of being in hospital and how will pay for everything. Referral to KARIS[facility] Bourgeois. PRIMARY CARE PHYSICIAN: CHARLENE MORGAN, APPLICATION CONSULTANT [phone] POTENTIAL DISCHARGE NEEDS: Unable to determine @ this time. Discussed [facility] vs Snf/Rehab TRANSPORTATION @ D/C: friend PLAN: CRC will continue to monitor progress, follow for continuity of care and assist with dischargeplanning while hospitalized Daxa Lees RN Office of Care Management Clinical Diesel Pile Hammer Operator Covering for Dominique Sanz Pager [phone] Med Student Progress Note - Ale Howard - 01/26/2015 6:47 AM EDT Inpatient Cardiology Progress Note Patient Name: Francie Gonzales Yusuf Service: Cardiology Responsible Attending: Linden Pacheco MD Reason for continued hospitalization: Patient is a 54 y/o female with a PMH notable for HTN, anti-phospholipid antibody syndrome, anemia, thyroid nodule and amyloidosis cutis that was admitted on 01/22 with hemopericardium/cardiac tamponade. Active Problems: Pericardial Tamponade HTN Antiphospholipid antibody syndrome Amyloidosis 24 hour events/subjective: - no acute events overnight - Repeat TTE today - CT chest from Sat. showed large left sided pleural effusion with worsening adjacent compressive lingular and left lower lobe atelectasis - 1 L drained during thoracentesis; 800 cc in last 24 hours - Patient reports respirophasic CP with varying intensity - Denies SOB, abdominal pain,nausea, vomiting and swelling Review of Systems: Review of Systems Constitutional: Positive for activity change. Negative for appetite change. Respiratory: Positive for chest tightness. Negative for cough and shortness of breath. Cardiovascular: Positive for chest pain. Negative for palpitations and leg swelling. Respirophasic chest pain Gastrointestinal: Negative for abdominal pain and abdominal distention. Telemetry: HR: 60-75; NSR Meds: Scheduled Meds: ??? acetaminophen 1,000 mg Oral TID ??? melatonin 3 mg Oral Nightly ??? lidocaine 1 patch Transdermal Daily And ??? lidocaine 1 patch Transdermal Nightly ??? sodium chloride 0.9 % 5 mL Intravenous Q12H ??? chlorhexidine 15 mL Oral 2 times per day ??? levothyroxine 112 mcg Oral QAM ??? esomeprazole 40 mg Oral Daily ??? simvastatin 20 mg Oral QPM Continuous Infusions: ??? sodium chloride 0.9% PRN Meds:HYDROmorphone OR HYDROmorphone, senna-docusate, sodium chloride 0.9 %, lidocaine, sodium chloride 0.9%, albuterol, docusate sodium Physical Exam: Vital Signs: Temp: [36.2 ??C (97.2 ??F)-36.8 ??C (98.2 ??F)] Heart Rate: [63-78] Resp: [16] BP: (131-172)/(60-80) SpO2: [96 %-100 %] Intake/Output Summary (Last 24 hours) at 01/26/15 0648 Last data filed at 01/26/15 0600 Gross per 24 hour Intake 350 ml Output 2550 ml Net -2200 ml Patient Vitals for the past 168 hrs: Weight 01/26/15 0444 95.437 kg (210 lb 6.4 oz) 01/25/15 0705 93 kg (205 lb 0.4 oz) 01/24/15 0610 92.1 kg (203 lb 0.7 oz) 01/23/15 0646 91.7 kg (202 lb 2.6 oz) 01/22/15 1338 92.8 kg (204 lb 9.4 oz) Physical Exam Constitutional: She is oriented to person, place, and time. She appears well- developed and well-nourished. No distress. Eyes: Conjunctivae are normal. No scleral icterus. Neck: No JVD present. Cardiovascular: Normal rate, regular rhythm and normal heart sounds. Exam reveals no gallop and no friction rub. No murmur heard. Pulmonary/Chest: Effort normal and breath sounds normal. No respiratory distress. She has no wheezes. She has no rales. She exhibits no tenderness. Abdominal: Soft. Bowel sounds are normal. She exhibits no distension and no mass. There is no tenderness. There is no rebound and no guarding. Neurological: She is alert and oriented to person, place, and time. Skin: Skin is warm and dry. She is not diaphoretic. Lab Comments: Recent Labs 01/26/15 0344 01/25/15 0455 01/24/15 1516 WBC 5.6 6.9 9.3 HGB 9.8* 8.9* 10.0* HCT 29.4* 26.7* 29.9* PLATELET 432* 385* 419* Recent Labs 01/26/15 0344 INR 1.3* Recent Labs 01/26/15 0344 01/25/15 0455 01/24/15 0514 NA 141 140 139 K 3.7 3.7 3.5 CL 101 103 98 CO2 26 29 29 BUN 10 12 18 CREATININE 0.57* 0.57* 0.64* Recent Labs 01/24/15 0514 01/23/15 0325 01/22/15 1400 AST 16 26 33* ALT 26 33* 42* ALKPHOS 126* 119* 137* BILITOT 0.4 0.5 0.6 BILIDIR 0.2 0.2 0.2 Recent Labs 01/26/15 0344 01/25/15 0455 01/24/15 0514 CALCIUM 7.7* 7.7* 7.7* No results for input(s): CK, TROPONINT in the last 168 hours. Pertinent Radiographic/Diagnostic Results: TTE: SUMMARY: 1. Limited echocardiogram follow up for pericardial effusion 2. Global left ventricular wall motion and contractility are probably within normal limits. The visually estimated left ventricular ejection fraction is 65% The right ventricle is probably normal in size. 3. Normal valve structures 4. Normal chamber dimensions 5. There is a small posterior pericardial effusion. There is no echo or doppler evidence of pericardial tamponade. When compared to the prior 01/23/15 study, the effusion appears smaller Thoracentesis: Findings: 1. Moderate left pleural effusion by U/S 2. U/S guided 8 Fr chest tube placement with expected return of sanguinous fluid. Assessment: Patient is a 54 y/o female with a PMH notable for HTN, anti- phospholipid antibody syndrome, anemia, thyroid nodule and amyloidosis cutis that was admitted on 01/22 with hemopericardium/cardiac tamponade. Physical exam consistent with diagnosis of cardiac tamponade. She had distant heart sounds and pulsus paradoxus. CT results were also consistent with diagnosis as it revealed a large pericardial effusion. Etiology of her current presentation is still unknown. Pericardial effusions are most often caused by infections, malignancy or endocrine abnormalities most specifically hypothyroidism. Trauma can alsolead to this presentation but patient denies recent trauma as well as recent surgery. Hemopericardium most likely due to supratherapeutic INR on presentation.Pericardiocentesis done on 01/22 yielded ~1Lof serosanginous fluid. After pericardial drain tube was removed on Monday patient experienced an increased O2 need and was noted to have a L pleural effusion. Thoracentesis drained ~1L of serosanguinous fluid. We will f/u with dry primer powder blender to investigate whether the pleural effusion and pericardial effusion can be a manifestation of rheumatologic process. For the time being coumadin should be discontinued. Regarding her supratherapeutic INR she was given vitamin K and FFP; INR today down to 1.3. Patient will be given more vitamin K today. Will continue to closely monitor INR. PLAN OF MANAGEMENT: #Left hemothorax - additional vitamin K 1.25 mg PO today # Pericardial effusion with tamponade, unclear etiology - repeat TTE today - continue acetaminophen 1000 mg PO TID # Antiphospholipid antibody syndrome on warfarin, with supratherapeutic INR (>9.2) - hold warfarin; [place] [facility] - f/u with rheumatology # Hypothyroidism s/p total thryoidectomy - continue home levothyroxine 112 mcg PO daily # Asthma - albuterol 2 puffs q6h PRN # Hyperlipidemia - continue simvastatin 20 mg PO daily # Routine - DVT PPx: SCDs, holding warfarin for supratherapeutic INR - GI PPx: esomeprazole 40 mg PO daily - Diet/Fluids:regular/none - Access: PIV - CODE STATUS: FULL CODE - Dispo: pending clinical course Ale Janet YoungKianna MS3 Pager#[phone] 01/26/2015 Plan of Care - Anna Ingram RN - 01/24/2015 11:23 PM EDT Problem: General Plan of Care Goal: Plan of Care Review Outcome: Ongoing (Interventions Implemented as Appropriate) 01/24/1562901/24/151931 Plan of Care Review Plan of Care Outcome Status ongoing (interventions implemented as appropriate) -- Progress improving -- Coping/Psychosocial Response Interventions Plan of Care Reviewed with -- patient Goal: Individualization and Mutuality Outcome: Ongoing (Interventions Implemented as Appropriate) 01/24/15 0630 Individualization Patient Specific Goals adequate pain control Patient Specific Interventions encourage movement, prn tylenol Goal: Fall Prevention-Safe Patient Handling Outcome: Ongoing (Interventions Implemented as Appropriate) 01/24/15 19101/24/15 19301/24/15 2321 Safety Interventions Safety Precautions/Fall Reduction assistive device;environmental modification;fall reduction programmaintained;lighting adjusted for task/safety;low bed;muscle strengthening facilitated;nonskid shoes/slippers when out of bed;supervised activity -- -- Musculoskeletal Interventions Activity/Level of Assistance up in room;with walker;with 1-person assist -- -- Positioning -- independent -- Muscle Strengthening -- activity/mobility promoted;mobility in bed promoted;personal routines for BADL/IADL promoted;sitting on edge of bed encouraged;strengthening exercises performed;up in chair encouraged for meals and activities -- Self-Care Promotion -- -- toileting assistance provided;personal/BADL objects within reach;instruction in safe use of adaptive equipment provided;independence encouraged while providing assistance;assistance provided to decrease frustration Rivera Fall Risk History of Falling 0 -- -- Secondary Diagnosis 15 -- -- Ambulatory Aids 0 -- -- Intravenous Therapy/Heparin/Saline Lock 20 -- -- Gait/Transferring 0 -- -- Mental Status 0 -- -- Score 35 -- -- Activity and Safety Assistive Device -- Oxygen;Front wheel walker -- OTHER Rivera Fall Risk Med -- -- Goal: Infection Control Outcome: Ongoing (Interventions Implemented as Appropriate) 01/24/15 0801/24/151918 Safety Interventions Isolation Precautions -- standard precautions maintained Infection Prevention -- bronchial hygiene promoted;environmental surveillance;hydration promoted;nutrition promoted;promote handwashing;rest/sleep promoted Coping/Psychosocial Response Interventions Counseling calming techniques promoted -- Goal: Discharge Needs Assessment Outcome: Ongoing (Interventions Implemented as Appropriate) Problem: Pain, Acute (Adult, Obstetrics) Goal: Acceptable Pain Control/Comfort Level Patient will demonstrate the desired outcomes. Outcome: Ongoing (Interventions Implemented as Appropriate) 01/24/152320 Pain, Acute (Adult, Obstetrics) Acceptable Pain Control/Comfort Level making progress toward outcome Problem: Fall/Trauma/Injury Risk (Adult, Obstetrics) Intervention: Muscle Strengthening 01/24/151931 Musculoskeletal Interventions Muscle Strengthening activity/mobility promoted;mobility in bed promoted;personal routines for BADL/IADL promoted;sitting on edge of bed encouraged;strengthening exercises performed;up in chair encouraged for meals and activities Intervention: Self-Care Promotion 01/24/152320 Musculoskeletal Interventions Self-Care Promotion toileting assistance provided;personal/BADL objects within reach;instruction in safe use of adaptive equipment provided;independence encouraged while providing assistance;assistanceprovided to decrease frustration Intervention: Sensation Impairment Protection 01/24/151918 Peripheral Neurovascular Interventions Sensation Impairment Protection skin surveillance;environment clear of obstacles/tripping hazards Intervention: Visual Performance Enhancement 01/24/151918 HEENT Interventions Visual Performance Enhancement lighting provided/adjusted Goal: Absence of Trauma/Injury/Falls Patient will demonstrate the desired outcomes. Outcome: Ongoing (Interventions Implemented as Appropriate) 01/24/152320 Fall/Trauma/Injury Risk (Adult, Obstetrics) Absence of Trauma/Injury/Falls making progress toward outcome Problem: Cardiac Output, Decreased (Adult, Obstetrics) Goal: Adequate Cardiac Output/Effective Tissue Perfusion Patient will demonstrate the desired outcomes. Outcome: Ongoing (Interventions Implemented as Appropriate) 01/24/15 2321 Cardiac Output, Decreased (Adult, Obstetrics) Adequate Cardiac Output/Effective Tissue Perfusion making progress toward outcome Plan of Care - Neena Blackmon RN - 01/24/2015 6:40 AM EDT Problem: General Plan of Care Goal: Plan of Care Review Outcome: Ongoing (Interventions Implemented as Appropriate) 01/24/15629 Plan of Care Review Plan of Care Outcome Status ongoing (interventions implemented as appropriate) Progress improving Coping/Psychosocial Response Interventions Plan of Care Reviewed with patient OUTCOME EVALUATION NOTE: OUTCOME SUMMARY: Assumed care at 2300. VSS, though remained on 2L nc overnight with occasional momentary desat to high 80s. Pt c/o 4/10 pain at incision site, worse with inspiration and movement. Pt appeared tense, so ambulation encouraged and pain improved with movement and prn tylenol. Pt anxious with lots of vague complaints about pain, sore throat, etc, given lots of reassurance. Ambulated 1 loop without difficulty, though stated she felt fatigued. PLAN MOVING FORWARD: Possible re-echo today. Rheumatology consult, though high INR on admission may have been due to med interaction. INDIVIDUALIZED FALL PREVENTION: Assistance: Independent with ambulation, needs some assistance with positioning. Supervision: Intermittent, callbell in reach and rings appropriately. Surveillance: Hourly rounding CPG OUTCOME EVALUATION: Goal: Individualization and Mutuality Outcome: Ongoing (Interventions Implemented as Appropriate) 01/24/15629 Individualization Patient Specific Goals adequate pain control Patient Specific Interventions encourage movement, prn tylenol Goal: Fall Prevention-Safe Patient Handling Outcome: Ongoing (Interventions Implemented as Appropriate) 01/24/15629 Safety Interventions Safety Precautions/Fall Reduction environmental modification;fall reduction program maintained;lighting adjusted for task/safety;nonskid shoes/slippers when out of bed Goal: Infection Control Outcome: Ongoing (Interventions Implemented as Appropriate) 01/24/15629 Safety Interventions Isolation Precautions standard precautions maintained Goal: Discharge Needs Assessment Outcome: Ongoing (Interventions Implemented as Appropriate) 01/24/15629 Discharge Needs Assessment Concerns to be Addressed no discharge needs identified Problem: Pain, Acute (Adult, Obstetrics) Goal: Identify Signs and Symptoms and Related Risk Factors Signs and symptoms and related risk factors are identified upon initiation of Human Response Clinical Practice Guideline (CPG) Outcome: Outcome (s) achieved Date Met: 01/24/15 01/24/15629 Pain, Acute Related Risk Factors (Acute Pain) anxiety;fatigue;stress Signs and Symptoms (Acute Pain) facial mask of pain/grimace;fatigue/weakness;verbalization of pain descriptors Goal: Acceptable Pain Control/Comfort Level Patient will demonstrate the desired outcomes. Outcome: Ongoing (Interventions Implemented as Appropriate) 01/24/15629 Pain, Acute (Adult, Obstetrics) Acceptable Pain Control/Comfort Level making progress toward outcome Problem: Fall/Trauma/Injury Risk (Adult, Obstetrics) Goal: Identify Signs and Symptoms and Related Risk Factors Signs and symptoms and related risk factors are identified upon initiation of Human Response Clinical Practice Guideline (CPG) Outcome: Outcome (s) achieved Date Met: 01/24/15 01/24/15629 Fall/Trauma/Injury Risk Personal Related Risk Factors (Fall/Trauma/Injury Risk) emotional state;fatigue/slowed reaction time;sleep disturbance Environmental Related Risk Factors (Fall/Trauma/Injury Risk) environment unfamiliar Physiological Related Risk Factors (Fall/Trauma/Injury Risk) pain Signs and Symptoms (Fall/Trauma/Injury Risk) presence of risk factors Goal: Absence of Trauma/Injury/Falls Patient will demonstrate the desired outcomes. Outcome: Ongoing (Interventions Implemented as Appropriate) Problem: Cardiac Output, Decreased (Adult, Obstetrics) Goal: Identify Signs and Symptoms and Related Risk Factors Signs and symptoms and related risk factors are identified upon initiation of Human Response Clinical Practice Guideline (CPG) Outcome: Outcome (s) achieved Date Met: 01/24/15 01/24/15 06 Cardiac Output, Decreased Personal Related Risk Factors (Cardiac Output, Decreased) stress Physiological Related Risk Factors (Cardiac Output, Decreased) decreased cardiac pump function Signs and Symptoms (Cardiac Output, Decreased) dyspnea;shortness of breath Goal: Adequate Cardiac Output/Effective Tissue Perfusion Patient will demonstrate the desired outcomes. Outcome: Ongoing (Interventions Implemented as Appropriate) 01/24/15629 Cardiac Output, Decreased (Adult, Obstetrics) Adequate Cardiac Output/Effective Tissue Perfusion making progress toward outcome Plan of Care - Shadia Rodriguez RN - 01/23/2015 7:42 PM EDT Problem: Pain, Acute (Adult, Obstetrics) Goal: Identify Signs and Symptoms and Related Risk Factors Signs and symptoms and related risk factors are identified upon initiation of Human Response Clinical Practice Guideline (CPG) Outcome: Ongoing (Interventions Implemented as Appropriate) 01/23/151929 Pain, Acute Related Risk Factors (Acute Pain) anxiety;fatigue;stress Signs and Symptoms (Acute Pain) verbalization of pain descriptors Goal: Acceptable Pain Control/Comfort Level Patient will demonstrate the desired outcomes. Outcome: Ongoing (Interventions Implemented as Appropriate) 01/23/151929 Pain, Acute (Adult, Obstetrics) Acceptable Pain Control/Comfort Level making progress toward outcome Problem: Fall/Trauma/Injury Risk (Adult, Obstetrics) Goal: Absence of Trauma/Injury/Falls Patient will demonstrate the desired outcomes. Outcome: Ongoing (Interventions Implemented as Appropriate) Comments: OUTCOME EVALUATION NOTE: OUTCOME SUMMARY: Pt had hepatic US today, results show hepatomegaly. Pt had pigtail cath out, PO tramadol for pain atsite. Pt on 2L O2 for comfort/anxiety, sating 91 on RA. Pt now in sinus arrhythmia was previously MD AMINTA aware, likely related to irritation from pigtail cath. PLAN MOVING FORWARD: Cont to hold warfarin, monitor for S/S bleeding, CP, SOB. INDIVIDUALIZED FALL PREVENTION: Assistance: 1 assist Supervision: Call lay within reach Surveillance: Tele, rounding CPG OUTCOME EVALUATION: ongoing Med Student Consult - eK Avalos MD - 01/23/2015 3:22 PM EDT Patient Name: Francie Yusuf Patient Age: 54 y.o. Birthdate: 1960 Admit date: 01/22/2015 Attending Physician: Linden Pacheco MD Rheumatology Inpatient Consult Note MEDICAL STUDENT NOTE Reason for Consult: Review of Ms Yusuf today (01/23/2015) at the request of Cardiology team for evaluation of patient with antiphospholipid syndrome post- pericardiocentesis for cardiac tamponade. HPI: Ms Yusuf is a pleasant 54 year old woman with a background of anti- phospholipid syndrome, amyloidosis cutis and hypothyroidism. The patient initially presented to her [facility] with dyspnea, chest pain and a INR of 9.2. Cardiac tamponade was identified on CXR and echoca rdiogram. She was subsequently transferred to [facility] emergency department for further investigation and management (01/22/2015). Ms Yusuf presented with 3 week history (beginning 01/02/2015) of intermittent, severe, ???knot-like?? chest pain. This pain was sharp in character, 10 /10 severity and radiated into her neck. The pain was exacerbated by leaning forward and with walking and had no identifiable relievers. Chest pain wasassociated with dyspnea and nausea. During the 3 weeks preceding admission [facility] She was suspected to be experiencing costochondritis or pleurisy and wasmanaged with aspirin and ibuprofen. NSAID use may possibly have precipitated her elevated INR. Ms Yusuf???s antiphospholipid syndrome has been managed with Warfarin since 2001. She initially presented with 1x miscarriage, headaches, lightheadedness and peripheral tingling. White matter changes were identified on MRI. - Anti-Cardiolipin. IgG and IgM positive - Anti- Beta 2 Glycoprotein (apoliprotein H) positive. IgM 82 - YELENA positive. 1:640 centromere and associated with anti-mitochondrial pattern (2008) - RF positive. 15 (2008) - ???ve dsDNA 2011 Since beginning Warfarin Ms Yusuf has been otherwise asymptomatic. She is reviewed by Dr Mynor reyesin Rheumatology outpatients. Prior to her admission she reported no bruises, painful joints or nose bleeds. Her target INR is 2-3, it is checked monthly and monitored by her PCP. Regarding other rheumatological symptoms Ms Yusuf reports severe dry eyes and dry mouth which requireuse of oral sprays and eye drops. She reports cervical spine pain, stiffness and numbness however this is believed to be due to OA. NO: Acute joint inflammation, psoriatic plaques, nail changes, rashestriggered by UV light, difficulty swallowing, alopecia, scalp tenderness, jaw claudication, GERD, calcinosis, raynaud's phenomenon, digital ulcers, eye pain or uveitis. Following admission: - On Physical examination patient was found to have muffled heart sounds and signs of pulsus paradoxus. Pericardial effusion identified on CXR, CT-Chest and TTE - Echocardiogram reported of cardiac tamponade. A 6 Yoruba pigtail catheter was placed into pericardial space and 780 cc of sanguinous fluid withdrawn. Patient tolerated procedure well. - Pigtail left in place for continuous drainage at 5-7cm of h20. - 70 cc of serosanguinous fluid drained from pericardial space overnight. - Pericardial fluid sent for cultures, smears, chemistries, cell counts, and cytology - all WNL. - INR > 9.2 (01/22/2015), managed with vitamin K and FFP. - ProBNP 481 - D-dimer 4115 - INR 2.4 (01/23/2015) ROS: General (-)fevers, (-)chills, (-)night sweats, (-)wt loss/gain, (-) fatigue, HEENT (-)head trauma, (+)vision change (blurred vision), (-)tinnitus, (- )epistaxis, (-)sore throat, (-)bleeding gums, (-)oral ulcers, (+)dry eyes, (+)dry mouth, (-)dysphagia, (-)GERD, (-)photo sensitivity, (-)Hair loss, (-)vertigo CVS (+)chest pain, (-)palpitations, (-)pedal edema, (-)PND, (-)orthopnea. Pulm (-)shortness of breath, (-)NOBLE, (-)wheezes, (-)cough, (-)pleuritic pain GI (-)N/V, (-)abdominal pain, (+) constipation, (-)emesis, (-)hematemesis, (- )hematochezia, (-)change in appetite (-)hematuria, (-)dysuria, (-)frequency, (-)nocturia, (-)genital ulcers MS (-)muscle weakness, (-)paralysis, (+)joint pain, (-)hx of arthritis Endo (-)thyroid disorders, (-)diabetes, (-)temperature intolerance. Neuro (-)focal weakness, (-)paresthesias, (-)gait instability. Skin (-)Raynaud's, ulcers Psych (-) mood disorder. PMH: - Amyloidosis cutis - Anti-phospholipid syndrome - Thyroid nodule - Eczema - Anemia - Asthma - HTN PSH: - Hysterectomy - Thyroidectomy Allergies: - NKDA Family History: - Father: Rheumatoid arthritis - Mother: HTN - Brother: HTN, Rheumatoid arthritis Social History: - Unemployed. 30 pack year history. Occasional ETOH use. No recreational drug use. MEDICAL STUDENT NOTE Physical Examination: VS: WNL General Inspection: Patient calm and comfortable at rest. No signs of distress. Warm and well perfused. Dermatology: Multiple amyloid nodules bilaterally on shins. HEENT: No tenderness of scalp or jaw on palpation. No oral ulcers visible. Neck: Neck supple. No lymphadenopathy. No bruits. No elevated JVP. CVS: Left pigtail in place, with serosanguinous drainage. Erythema or discharge. Pulses regular and of normal character. Temporal arteries palpable bilaterally. Normal S1/S. No murmurs. Peripheral pulses intact. Chest: Normal expansion. Bilateral air entry. No crackles or wheeze Abdomen: Soft. Non-tender. No organomegaly. Bowel sounds present. MSK - Hand: No synovitis, muscle wasting or deformity. Full range of movement. Bilateral bouchards and heberdens nodes. MSK - Elbow: No tenderness on palpation of medial or lateral epicondyle. Normal range of motion. No nodules. MSK - Shoulder: No asymmetry, muscle wasting, scars or deformity. No synovitis or swelling. Normal reduced range of motion in shoulders bilaterally. MSK - Hip: No asymmetry, muscle wasting, scars or deformities. No joint effusions or swellings. No tenderness on palpation over anterior superior iliac crest, greater trochanter. MSK -Knee: No asymmetry, muscle wasting, scars or deformities. No joint effusions or swellings. No tenderness on palpation of femoral epichondyle or tibial tuberosity. MSK - Ankles: No tenderness on palpation of the ankles or MTP joint bilaterally. Normal range of movement. MEDICAL STUDENT NOTE Assessment & Plan: - Thank you for involving the rheumatology team in this interesting consult. - Ms Yusuf is a pleasant 54 year old woman with a background of anti-phospholipid syndrome, amyloidosis cutis and hypothyroidism. She was seen post- pericardiocentesis for cardiac tamponade. #1 Pericardial effusion with tamponade - INR on presentation to [facility] ~9.2 (01/22/2015). - INR on [place] [facility], currently 2.4 (01/23/2015) following FFP and vitamin K administration - Ms Yusuf has taken warfarin since 2001. Her target INR is 2-3, it is checked monthly and monitored by her PCP. - She reports no recent trauma, change in diet and is confident that she did not mistakenly take additional warfarin tablets. - It is possible that the aspirin and ibuprofen prescribed at her local ED for suspected costocondritis / pleurisy may have precipitated her elevated INR and cardiac tamponade. - She otherwise reports no new medications. - Query? Cardiac Tamponade secondary to increased INR. We believe that tamponade is unlikely to be due to other cause. #2 Antiphospholipid antibody syndrome on warfarin - [place] [facility], currently 2.4 (01/23/2015) following FFP and vitamin K administration - Warfarin currently on hold. - Given the patient???s history of APL syndrome and suspected CVA (white matter changes on MRI) we are hesitant to stop her anti-coagulation. - Recommend restarting warfarin. Target INR 2-3. - Closely monitor INR as patient is at risk of developing thrombus. Mendoza Smith MS4 RHEUMATOLOGY ATTENDING NOTE: The pt was seen and evaluated in consultation with the Rheumatology Consult Service at pt's bedside.For details of the consult, please refer to medical student Mendoza Smith' detailed consult report. I discussed with the Rheumatology Consult Team about this pt. I reviewed Dr. Mendoza Smith' clinical assessment and agreed with him on his recommendations. In brief, the pt was a 54-year-old female with a history of anti-phospholipid antibody syndrome on chronic coumadin therapy who developedpericardial effusion with tamponade. The pt's tamponade is likely related to the use of aspirin and i buprofen use in addition to her coumadin use. The pt's clinical history and physical examination revealed no stigmata of any rheumatic diseases. Because of her history of antiphospholipid antibody syndrome, she will need to continue coumadin therapy. Ke Avalos MD PhD Med Student Progress Note - IrahetaJoanneKianna Ale N - 01/23/2015 6:47 AM EDT Inpatient Cardiology Progress Note Patient Name: Francie Gonzales Yusuf Service: Cardiology Responsible Attending: Linden Pacheco MD Reason for continued hospitalization: Patient is a 54 y/o female with a PMH notable for HTN, anti-phospholipid antibody syndrome, anemia, thyroid nodule and amyloidosis cutis presenting with a 3 wk. history of intense, sharp chest pain. Active Problems: Pericardial Tamponade HTN Antiphospholipid antibody syndrome Amyloidosis 24 hour events/subjective: - admitted to CV - TTE and Pericardiocentesis done (results below) - Patient states she feels better this morning but is still a little sore - Required dilaudid during the night to be able to sleep - 70 cc of serosanguinous fluid drained from pericardial space overnight. - Pericardial fluid lab results all WNL Review of Systems: Review of Systems Constitutional: Positive for activity change and appetite change. Respiratory: Positive for chest tightness. Negative for cough and shortness of breath. Cardiovascular: Negative for chest pain, palpitations and leg swelling. Gastrointestinal: Negative for abdominal pain and abdominal distention. Telemetry:HR 70-80s, NSR Meds: Scheduled Meds: ??? sodium chloride 0.9 % 5 mL Intravenous Q12H ??? chlorhexidine 15 mL Oral 2 times per day ??? levothyroxine 112 mcg Oral QAM ??? esomeprazole 40 mg Oral Daily ??? simvastatin 20 mg Oral QPM Continuous Infusions: ??? sodium chloride 0.9% PRN Meds:HYDROmorphone, sodium chloride 0.9 %, lidocaine, sodium chloride 0.9%, albuterol, docusate sodium, potassium chloride OR potassium chloride, acetaminophen Physical Exam: Vital Signs: Temp: [36.5 ??C (97.7 ??F)-37.1 ??C (98.8 ??F)] Heart Rate: [71-123] Resp: [13-34] BP: (107-148)/(51-101) SpO2: [93 %-100 %] Intake/Output Summary (Last 24 hours) at 01/23/15 0742 Last data filed at 01/23/15 0600 Gross per 24 hour Intake 1906 ml Output 2095 ml Net -189 ml Patient Vitals for the past 168 hrs: Weight 01/23/15 0646 91.7 kg (202 lb 2.6 oz) 01/22/15 1338 92.8 kg (204 lb 9.4 oz) Physical Exam Constitutional: She is oriented to person, place, and time. She appears well- developed and well-nourished. No distress. Eyes: Conjunctivae are normal. No scleral icterus. Neck: No JVD present. Cardiovascular: Normal rate, regular rhythm and normal heart sounds. Exam reveals no gallop and no friction rub. No murmur heard. Pulmonary/Chest: Effort normal and breath sounds normal. No respiratory distress. She has no wheezes. She has no rales. She exhibits no tenderness. Abdominal: Soft. Bowel sounds are normal. She exhibits no distension and no mass. There is no tenderness. There is no rebound and no guarding. Neurological: She is alert and oriented to person, place, and time. Skin: Skin is warm and dry. She is not diaphoretic. Lab Comments: Recent Labs 01/23/15 0325 01/22/15 1400 WBC 10.0 12.9* HGB 9.5* 9.9* HCT 28.3* 29.1* PLATELET 403* 493* Recent Labs 01/23/15 032 INR 2.4* Recent Labs 01/23/15 0325 01/22/15 2034 01/22/15 1400 NA 141 -- 132* K 4.0 3.5 3.3* CL 98 -- 87* CO2 29 -- 25 BUN 21* -- 20* CREATININE 0.80 -- 0.71 Recent Labs 01/23/15 0325 01/22/15 1400 AST 26 33* ALT 33* 42* ALKPHOS 119* 137* BILITOT 0.5 0.6 BILIDIR 0.2 0.2 Recent Labs 01/23/15 0325 01/22/15 1400 CALCIUM 7.9* 7.7* No results for input(s): CK, TROPONINT in the last 168 hours. Pertinent Radiographic/Diagnostic Results: TTE: SUMMARY: 1. There is a large circumferential [...] See remainder of report for additional findings. Pericardiocentesis: Pericardiocentesis performed using echo and fluoroscopic guidance. FFP was given prior to and during the procedure to correct an elevated INR An apical window used. An 6 Fr pigtail placed into pericardial space and 780 cc of sanguinous fluid withdrawn. Sent for cultures, smears, chemistries, cell counts, and cytology. Patient tolerated procedure well. Pigtail left in place for continuous drainage at 5-7cm of h20. Assessment: Patient is a 54 y/o female with a PMH notable for HTN, anti- phospholipid antibody syndrome, anemia, thyroid nodule (s/p thyroidectomy) and amyloidosis cutis admitted from OSH for managementof pericardial tamponade. Physical exam consistent with diagnosis. She had distant heart sounds and pulsus paradoxus. CT results were also consistent with diagnosis as it revealed a large pericardial effusion. Etiology of her current presentation is still unknown. Pericardial effusions are most often caused by infections, malignancy or endocrine abnormalities most specifically hypothyroidism. Trauma can alsolead to this presentation but patient denies recent trauma as well as recent surgery. We will f/u with dry primer powder blender to obtain more history regarding her antiphospholipid antibody syndrome as this most likely played a role in formation of her pericardial effusion. For the time being coumadin should be discontinued. She is currently hemodynamically stable. Pericardiocentesis done last evening (findings above). 780 cc of serosanguinous fluid was drained Regarding her supratherapeutic INR she was given vitamin K and FFP; INR today down to 2.4. Will continue to monitor. On exam she was noted to have an enlarged liver, RUQ u/s will be ordered in order to evaluate this further as it may have played a role in current presentation. Regarding pain, nurse suggested a lidoderm patch for pain management. Will assess whether this is sufficient to make patient comfortable. Pericardial drain may be removed at a later time today, transfer to floor if she remains hemodynamically stable. PLAN OF MANAGEMENT: # Pericardial effusion with tamponade, unclear etiology - remove pericardial drain later today - lidoderm patch - dilaudid PRN # Antiphospholipid antibody syndrome on warfarin, with supratherapeutic INR (>9.2) - hold warfarin; IN[place] [facility] - s/p vitamin K 2.5 mg PO x 1 - s/p 4 units FFP - c/s rheumatology (Dr. Price) - obtain RUQ u/s # Hypothyroidism s/p total thryoidectomy - continue home levothyroxine 112 mcg PO daily # Asthma - albuterol 2 puffs q6h PRN # Hyperlipidemia - continue simvastatin 20 mg PO daily # Routine - DVT PPx: SCDs, holding warfarin for supratherapeutic INR - GI PPx: esomeprazole 40 mg PO daily - Diet/Fluids: NPO/none - Access: PIV - CODE STATUS: FULL CODE - Advanced Care Planning: - Dispo:transfer to floor Ale Howard MS3 Pager#[phone] 01/23/2015 Associated attestation - Linden Pacheco MD - 01/23/2015 3:20 PM EDT Images from the original note were not included. Cardiology Staff: Agree with Ale's very comprehensive note.. She has been hemodynamically stable overnight althoughstill have a fair amount of pain. Although the bleed was clearly aggravated by her supratherapeutic INR, the reason for the location of her bleed remains unclear. We are asking for input from Rheumatology service regarding long-term treatment and necessity for anticoagulation. We will likely be pulling the pericardial tube later today. Linden Pacheco MD, [facility], [facility] Med Student H&P - Ale Howard - 01/22/2015 3:07 PM EDT Cardiology Admission H&P Patient Name: Francie Yusuf Date of : 1960 Age: 54 y.o. Hospital Admit Date: 01/22/2015 Inpatient Attending: Yury Colon MD PCP: CHARLENE MORGAN APRN Presenting Diagnosis/Chief Complaint: chest pain Active Problem List: There are no hospital problems to display for this patient. History of Present Illness: HPI Comments: Patient is a 54 y/o female with a PMH notable for HTN, anti- phospholipid antibody syndrome, anemia, thyroid nodule and amyloidosis cutis presenting with a 3 wk. history of intense, sharp chest pain. Patient states that on 01/02 she began to experience chest pain that was intense, sharp and felt like a knot. She states that this pain was intensified whenever she would bend forward, knelt or walked. Patient states that nothing she did helped ease the pain. Patient states she went to ED on 2 occasions prior to today. On both occasions they never found anything and she was sent home. Last night patient states she was unable to sleep and was having a hard time breathing. She went to see her PCP who then sent her to her local hospital. OSH records: Work-up at the local hospital showed pericardial tamponade and supra-therapeutic INR. - Imaging: CXR: significant pericardial effusion TTE: significant pericardial effusion - Lab work: CBC: WBC 13.4, Hgb 10.3, Platelets 526, ANC 11 CMP (partial records): 130/2.9/108/27/19/0.8, AST 41, ALT 56 INR > 9.2 ProBNP 481 D-dimer 4115 - Medications given: Vitamin K 2.5 mg PO KCl 40 mEq PO After evaluation she was diagnosed with pericardial tamponade and [place] [facility] [place] [facility]. Past Medical History: Past Medical History Diagnosis Date ??? Hypertension ??? Anti-phospholipid antibody syndrome ??? Eczema ??? Herniated disc ??? Anemia, iron deficiency ??? Asthma ??? Pneumonia X2 ??? Thyroid nodule ??? Amyloidosis cutis 2010 Surgical History/Problems: Past Surgical History Procedure Laterality Date ??? Bone marrow biopsy ??? Hysterectomy ??? Thyroidectomy 06/01/2012 THYROIDECTOMY, TOTAL OR COMPLETE performed by LINDA RANGEL at [facility] MA[facility] OR ??? Somatosensory test, any/all per. nerves, trunk or head 06/01/2012 FACIAL NERVE MONITORING, SETUP performed by LINDA RANGEL at [facility] MA[facility] OR Significant Family History: Family History Problem Relation Age of Onset ??? Hypertension Mother ??? Hypertension Brother ??? Rheumatoid Arthritis Father ??? Rheumatoid Arthritis Brother Social History: History Social History ??? Marital Status: Spouse Name: N/A Number of Children: N/A ??? Years of Education: N/A Occupational History ??? unemployed Social History Main Topics ??? Smoking status: Former Smoker -- 1.50 packs/day Types: Cigarettes Quit date: 08/14/1992 ??? Smokeless tobacco: Not on file ??? Alcohol Use: 0.6 oz/week 1 Glasses of wine per week Comment: per week ??? Drug Use: No ??? Sexual Activity: Not on file Other Topics Concern ??? Not on file Social History Narrative REVIEW OF SYSTEMS: Review of Systems Constitutional: Positive for activity change, appetite change and fatigue. Negative for fever, chills, diaphoresis and unexpected weight change. Difficulty walking and going up and down stairs Eyes: Negative for visual disturbance. Respiratory: Positive for cough, chest tightness and shortness of breath. Negative for choking and wheezing. Dry cough Cardiovascular: Positive for chest pain and leg swelling. Negative for palpitations. Gastrointestinal: Positive for abdominal pain, constipation and abdominal distention. Negative for nausea, vomiting, diarrhea and blood in stool. Skin: Negative for rash. Neurological: Positive for weakness, light-headedness and headaches. Negative for dizziness, tremorsand numbness. Medications: Prescriptions prior to admission Medication Sig Dispense Refill ??? levothyroxine (SYNTHROID) 112 mcg Tablet Take 112 mcg by mouth daily. ??? albuterol (PROVENTIL HFA;VENTOLIN HFA;PROAIR) 90 mcg/actuation HFA Aerosol Inhaler Inhale 2 puffs into the lungs every 4 hours as needed for Wheezing. Use with spacer ??? hydrochlorothiazide (HYDRODIURIL) 25 mg Tablet Take 25 mg by mouth daily. ??? omeprazole (PRILOSEC) 40 mg Capsule, Delayed Release(E.C.) Take 40 mg by mouth daily. ??? traMADol (ULTRAM) 50 mg Tablet Take 50 mg by mouth every 6 hours as needed for Pain. ??? Levalbuterol Tartrate 45 mcg/actuation HFA Aerosol Inhaler Inhale 1-2 puffs into the lungs every4 hours as needed for Wheezing. ??? calcium-vitamin D 500 mg(1,250mg) -200 unit Tablet Take 1 tablet by mouth daily. ??? Xfniz-YH2-KOM-XXH-DE4-Esc-Astx 1000-130(40-80) mg Capsule Take 1 capsule by mouth daily. ??? fexofenadine (WAQAR) 60 mg tablet Take 180 mg by mouth daily. ??? simvastatin (ZOCOR) 20 mg tablet Take 20 mg by mouth nightly. ??? acetaminophen (TYLENOL EXTRA STRENGTH) 500 mg tablet Take by mouth as needed. Take 1-2 tabs of the (500mg) Tablets ??? WARFARIN SODIUM (WARFARIN ORAL) ??? [DISCONTINUED] levothyroxine (SYNTHROID) 125 mcg tablet Take 1 tablet by mouth every morning. 30tablet 5 Allergies: No Known Allergies PHYSICAL EXAM: Last set of vital signs: BP 142/82 Pulse 91 Temp(Src) 36.5 ??C (97.7 ??F) (Oral) Resp 24 Ht 167.6 cm (5' 6) Wt 92.8 kg (204 lb 9.4 oz) BMI 33.04 kg/m2 SpO2 98% Physical Exam Constitutional: She is oriented to person, place, and time. She appears well- developed and well-nourished. No distress. HENT: Head: Normocephalic and atraumatic. Right Ear: External ear normal. Left Ear: External ear normal. Eyes: Conjunctivae and EOM are normal. Right eye exhibits no discharge. Left eye exhibits no discharge. Neck: No JVD present. Cardiovascular: Normal rate and regular rhythm. Exam reveals friction rub. Distant heart sounds Pulmonary/Chest: Effort normal. No respiratory distress. She has decreased breath sounds in the right lower field and the left lower field. She has no wheezes. She exhibits tenderness. Abdominal: Bowel sounds are normal. She exhibits distension. She exhibits no mass. There is no tenderness. There is no rebound and no guarding. Musculoskeletal: She exhibits edema. Neurological: She is alert and oriented to person, place, and time. No cranial nerve deficit. She exhibits normal muscle tone. Skin: Skin is warm and dry. No rash noted. She is not diaphoretic. Diagnostics: EKG: Component Results Component Value Ref Range & Units Status Ventricular rate 90 BPM Final Atrial Rate 90 BPM Final P-R Interval 128 ms Final QRS Duration 90 ms Final Q-T Interval 402 ms Final QTC Calculated (Bezet) 491 ms Final Calculated P [place] 31 degrees Final Calculated R [place] -7 degrees Final Calculated T [place] -35 degrees Final INTERPRETATION Final Sinus rhythm with Premature atrial complexes in a pattern of bigeminy Inferior infarct , age undetermined ST & T wave abnormality, consider lateral ischemia Abnormal ECG No previous ECGs available CXR IMPRESSION: Increased left hemithorax opacity compatible with atelectasis and effusion partially of scarring enlarged cardiac silhouette. CT chest: IMPRESSION: No significant interval change in the radiograph previously obtained at 1610 hours. Status post pericardiocentesis there remains opacification of the left hemithorax and cardiac enlargement. LABS: Recent Results (from the past 24 hour(s)) PROTHROMBIN TIME Result Value Ref Range PT 57.1 (*) 12.5 - 15.5 sec INR 5.9 (*) 0.9 - 1.1 APTT Result Value Ref Range PTT 56 (*) 25 - 35 sec HEMOGRAM Result Value Ref Range WBC 12.9 (*) 4.0 - 10.0 x10(3)/mcL RBC 3.55 (*) 3.93 - 5.22 x10(6)/mcL Hemoglobin 9.9 (*) 11.2 - 15.7 gm/dL Hematocrit 29.1 (*) 34.0 - 45.0 % MCV 82.0 79.0 - 94.0 fL MCH 27.9 26.6 - 32.2 pg MCHC 34.0 32.0 - 36.5 gm/dL Platelets 493 (*) 145 - 370 x10(3)/mcL RDWSD 41.1 35.0 - 46.0 fL RDWCV 13.6 10.9 - 14.4 % MPV 9.7 9.0 - 12.0 fL DIFFERENTIAL, AUTOMATED Result Value Ref Range Neutrophils % 86.1 Neutr Abs (ANC) 11.11 (*) 1.50 - 6.30 x10(3)/mcL Lymphocytes % 5.6 Lymphocytes Abs 0.7 (*) 1.0 - 3.6 x10(3)/mcL Monocytes % 7.8 Monocyte Abs 1.0 0.2 - 1.0 x10(3)/mcL Eosinophils % 0.1 Eosinophils Abs 0.0 0.0 - 0.5 x10(3)/mcL Basophils % 0.2 Basophils Abs 0.0 0.0 - 0.2 x10(3)/mcL Immature Gran % 0.20 Cheryl Gran Abs 0.03 0.00 - 0.05 x10(3)/mcL ASSESSMENT: Patient is a 54 y/o female with a PMH notable for HTN, anti- phospholipid antibody syndrome, anemia, thyroid nodule (s/p thyroidectomy) and amyloidosis cutis admitted from OSH for managementof pericardial tamponade. Physical exam consistent with diagnosis. She has distant heart sounds and pulsus paradoxus. CT results also consistent with diagnosis as it reveals a large pericardial effusion. Etiology of her current presentation is still unknown. Pericardial effusions are most often caused by infections, malignancy or endocrine abnormalities most specifically hypothyroidism. Trauma can alsolead to this presentation but patient denies recent trauma as well as recent surgery. She is currently hemodynamically stable. CXR, Chest CT and TTE done for further evaluation (results above). Pericardiocentesis scheduled for tonight. Regarding her supratherapeutic INR she was given vitamin K and FFP. PLAN OF MANAGEMENT: # Pericardial effusion with tamponade, unclear etiology - TTE pending - anticipate transfer to medical laboratory technician thereafter for pericardial drainage # Antiphospholipid antibody syndrome on warfarin, with supratherapeutic INR (>9.2) - hold warfarin; INR [place] to [facility] - s/p vitamin K 2.5 mg PO x 1 - 4 units FFP pending # Hypothyroidism s/p total thryoidectomy - continue home levothyroxine 112 mcg PO daily - TSH pending # Asthma - albuterol 2 puffs q6h PRN # Hyperlipidemia - continue simvastatin 20 mg PO daily # Routine - DVT PPx: SCDs, holding warfarin for supratherapeutic INR - GI PPx: esomeprazole 40 mg PO daily - Diet/Fluids: NPO/none - Access: PIV - CODE STATUS: FULL CODE - Advanced Care Planning: - Dispo: Admit to S2, CVCC status Provider: Ale Howard MS3 Provider #: [id number] 01/22/2015 documented in this encounter Plan of Treatment Pending Results Name Type Priority Associated Diagnoses Date/Ti me Cardiac Catheterization Cardiac Cath Routine 01/12 7:35 PM EDT Transfuse thawed plasma Blood Bank Routine 01/12 5:47 PM EDT Transfuse thawed plasma Blood Bank Routine 01/12 5:30 PM EDT Transfuse thawed plasma Blood Bank Routine 01/12 8:15 PM EDT Transfuse thawed plasma Blood Bank Routine 01/12 10:24 PM EDT Transfuse thawed plasma Blood Bank Routine 01/12 12:30 AM EDT documented as of this encounter Procedures Procedure Name Priority Date/Time Associated Comments Diagnosis LAB SCAN 01/29/2015 12:00 AM EDT KITCHEN MANAGER SCAN 01/29/2015 12:00 AM EDT XR CHEST PA AND LATERAL Routine 01/28/2015 3:18 R esults for this PM EDT procedure are i n the results section. IMMUNOGLOBULINS, Routine 01/28/2015 12:05 Results for this QUANTITATIVE PM EDT procedure are i n the results section. DUPLEX FOR DVT, LEG, Routine 01/28/2015 11:07 Res ults for this UNILAT AM EDT procedure are i n the results section. HEMOGRAM Routine 01/28/2015 3:42 Results for this AM EDT procedure are i n the results section. DIFFERENTIAL, AUTOMATED Routine 01/28/2015 3:42 R esults for this AM EDT procedure are i n the results section. APTT Routine 01/28/2015 3:42 Results for this AM EDT procedure are i n the results section. PROTHROMBIN TIME Routine 01/28/2015 3:42 Results for this AM EDT procedure are i n the results section. CBC (WITH DIFF) Routine 01/28/2015 3:42 AM EDT BASIC METABOLIC PANEL Routine 01/28/2015 3:42 Res ults for this (NON-FASTING) AM EDT procedure are in the results section. IMMUNOGLOBULIN FREE Routine 01/27/2015 7:42 Resul ts for this LIGHT CHAINS, SERUM PM EDT procedur e are in the results section. PROTEIN Routine 01/27/2015 7:42 Results for this ELECTROPHORESIS, SERUM PM EDT proce dure are in the results section. EXTRACTABLE NUCLEAR Routine 01/27/2015 9:31 Resul ts for this ANTIGEN (ANITA) AB AM EDT procedure a re in the results section. U1RNP ANTIBODY Routine 01/27/2015 9:31 Results fo r this AM EDT procedure are i n the results section. DNA ANTIBODY Routine 01/27/2015 9:31 Results for this (DOUBLE-STRANDED) AM EDT procedure are in the results section. SM ANTIBODY Routine 01/27/2015 9:31 Results for this AM EDT procedure are i n the results section. YELENA TITER Routine 01/27/2015 9:31 Results for this AM EDT procedure are i n the results section. COMPLEMENT, TOTAL Routine 01/27/2015 9:31 Results for this AM EDT procedure are i n the results section. C3 COMPLEMENT Routine 01/27/2015 9:31 Results for this AM EDT procedure are i n the results section. C4 COMPLEMENT Routine 01/27/2015 9:31 Results for this AM EDT procedure are i n the results section. YELENA Routine 01/27/2015 9:31 Results for this AM EDT procedure are i n the results section. HEMOGRAM Routine 01/27/2015 4:34 Results for this AM EDT procedure are i n the results section. DIFFERENTIAL, AUTOMATED Routine 01/27/2015 4:34 R esults for this AM EDT procedure are i n the results section. APTT Routine 01/27/2015 4:34 Results for this AM EDT procedure are i n the results section. PROTHROMBIN TIME Routine 01/27/2015 4:34 Results for this AM EDT procedure are i n the results section. CBC (WITH DIFF) Routine 01/27/2015 4:34 AM EDT BASIC METABOLIC PANEL Routine 01/27/2015 4:34 Res ults for this (NON-FASTING) AM EDT procedure are in the results section. ECHOCARDIOGRAM Routine 01/26/2015 8:07 Pericardial Results fo r this TRANSTHORACIC(LEB) AM EDT effusion procedure are in the results section. HEMOGRAM Routine 01/26/2015 3:44 Results for this AM EDT procedure are i n the results section. DIFFERENTIAL, AUTOMATED Routine 01/26/2015 3:44 R esults for this AM EDT procedure are i n the results section. APTT Routine 01/26/2015 3:44 Results for this AM EDT procedure are i n the results section. PROTHROMBIN TIME Routine 01/26/2015 3:44 Results for this AM EDT procedure are i n the results section. CBC (WITH DIFF) Routine 01/26/2015 3:44 AM EDT PROTEIN, TOTAL Routine 01/26/2015 3:44 Results fo r this AM EDT procedure are i n the results section. LACTATE DEHYDROGENASE Routine 01/26/2015 3:44 Res ults for this AM EDT procedure are i n the results section. BASIC METABOLIC PANEL Routine 01/26/2015 3:44 Res ults for this (NON-FASTING) AM EDT procedure are in the results section. IR CHEST TUBE PLACEMENT Routine 01/25/2015 2:29 R esults for this PM EDT procedure are i n the results section. FLUID REVIEW REPORT Routine 01/25/2015 2:10 Resul ts for this PM EDT procedure are i n the results section. LEUKEMIA LYMPHOMA Routine 01/25/2015 2:10 Results for this SCREEN (FORMERLY PM EDT procedure a re in MALIGNANT CELL SCREEN) the r esults section. BODY FLUID CULTURE, Routine 01/25/2015 2:10 Resul ts for this AEROBIC PM EDT procedure are i n the results section. CELL COUNT BODY FLUID Routine 01/25/2015 2:10 Res ults for this PM EDT procedure are i n the results section. HEMATOCRIT BODY FLUID Routine 01/25/2015 2:10 Res ults for this PM EDT procedure are i n the results section. PROTEIN LEVEL BODY Routine 01/25/2015 2:10 Result s for this FLUID PM EDT procedure are i n the results section. LACTATE DEHYDROGENASE Routine 01/25/2015 2:10 Res ults for this BODY FLUID PM EDT procedure are i n the results section. ANAEROBIC CULTURE Routine 01/25/2015 1:34 Results for this PM EDT procedure are i n the results section. BODY FLUID CULTURE, Routine 01/25/2015 1:34 AEROBIC & ANAEROBIC PM EDT HEMOGRAM Routine 01/25/2015 4:55 Results for this AM EDT procedure are i n the results section. DIFFERENTIAL, AUTOMATED Routine 01/25/2015 4:55 R esults for this AM EDT procedure are i n the results section. APTT Routine 01/25/2015 4:55 Results for this AM EDT procedure are i n the results section. PROTHROMBIN TIME Routine 01/25/2015 4:55 Results for this AM EDT procedure are i n the results section. CBC (WITH DIFF) Routine 01/25/2015 4:55 AM EDT BASIC METABOLIC PANEL Routine 01/25/2015 4:55 Res ults for this (NON-FASTING) AM EDT procedure are in the results section. TRANSFUSE THAWED PLASMA Routine 01/25/2015 12:30 AM EDT TRANSFUSE THAWED PLASMA Routine 01/24/2015 10:24 PM EDT TRANSFUSE THAWED PLASMA Routine 01/24/2015 8:15 PM EDT TRANSFUSE THAWED PLASMA Routine 01/24/2015 5:30 PM EDT PREPARE THAWED PLASMA Routine 01/24/2015 3:20 Res ults for this PM EDT procedure are i n the results section. HEMOGRAM Routine 01/24/2015 3:16 Results for this PM EDT procedure are i n the results section. URINE HOLD Routine 01/24/2015 2:30 Results for this PM EDT procedure are i n the results section. URINE CULTURE Routine 01/24/2015 2:30 Results for this PM EDT procedure are i n the results section. CT CHEST WO CONTRAST STAT 01/24/2015 1:10 Resu lts for this (GENERIC) PM EDT procedure are i n the results section. URINE HOLD Routine 01/24/2015 12:14 Results for this PM EDT procedure are i n the results section. URINALYSIS WITH REFLEX Routine 01/24/2015 12:14 R esults for this CULTURE PM EDT procedure are i n the results section. XR CHEST PA AND LATERAL Routine 01/24/2015 9:18 R esults for this AM EDT procedure are i n the results section. HEMOGRAM Routine 01/24/2015 5:14 Results for this AM EDT procedure are i n the results section. DIFFERENTIAL, AUTOMATED Routine 01/24/2015 5:14 R esults for this AM EDT procedure are i n the results section. APTT Routine 01/24/2015 5:14 Results for this AM EDT procedure are i n the results section. PROTHROMBIN TIME Routine 01/24/2015 5:14 Results for this AM EDT procedure are i n the results section. CBC (WITH DIFF) Routine 01/24/2015 5:14 AM EDT HEPATIC FUNCTION PANEL Routine 01/24/2015 5:14 Re sults for this AM EDT procedure are i n the results section. BASIC METABOLIC PANEL Routine 01/24/2015 5:14 Res ults for this (NON-FASTING) AM EDT procedure are in the results section. US ABDOMEN LIMITED Routine 01/23/2015 4:24 Result s for this PM EDT procedure are i n the results section. ECHOCARDIOGRAM Routine 01/23/2015 7:48 Pericardial Results fo r this TRANSTHORACIC(LEB) AM EDT effusion procedure are in the results section. XR CHEST ONE VIEW STAT 01/23/2015 4:45 Results for this AM EDT procedure are i n the results section. EKG 12-LEAD STAT 01/23/2015 4:25 Pericardial Results for this AM EDT effusion procedure are i n the results section. SCAN, PERIPHERAL BLOOD Routine 01/23/2015 3:25 Re sults for this AM EDT procedure are i n the results section. NUCLEATED RED BLOOD Routine 01/23/2015 3:25 Resul ts for this CELLS AM EDT procedure are i n the results section. HEMOGRAM Routine 01/23/2015 3:25 Results for this AM EDT procedure are i n the results section. DIFFERENTIAL, AUTOMATED Routine 01/23/2015 3:25 R esults for this AM EDT procedure are i n the results section. APTT Routine 01/23/2015 3:25 Results for this AM EDT procedure are i n the results section. PROTHROMBIN TIME Routine 01/23/2015 3:25 Results for this AM EDT procedure are i n the results section. CBC (WITH DIFF) Routine 01/23/2015 3:25 AM EDT TSH Routine 01/23/2015 3:25 Results for this AM EDT procedure are i n the results section. HEPATIC FUNCTION PANEL Routine 01/23/2015 3:25 Re sults for this AM EDT procedure are i n the results section. BASIC METABOLIC PANEL Routine 01/23/2015 3:25 Res ults for this (NON-FASTING) AM EDT procedure are in the results section. POTASSIUM Routine 01/22/2015 8:34 Results for this PM EDT procedure are i n the results section. XR CHEST ONE VIEW Routine 01/22/2015 8:23 Results for this PM EDT procedure are i n the results section. EKG 12-LEAD Routine 01/22/2015 7:53 Pericardial Results for this PM EDT effusion procedure are i n the results section. CARDIAC CATHETERIZATION Routine 01/22/2015 7:35 PM EDT BODY FLUID CULTURE Routine 01/22/2015 7:33 Result s for this AUTOMATED PM EDT procedure are i n the results section. NON-MEAT GRADING MACHINE OPERATOR FINAL REPORT Routine 01/22/2015 7:32 Resu lts for this PM EDT procedure are i n the results section. BODY FLUID HOLD STAT 01/22/2015 7:22 Results f or this PM EDT procedure are i n the results section. CHOLESTEROL LEVEL BODY STAT 01/22/2015 7:22 Re sults for this FLUID PM EDT procedure are i n the results section. CELL COUNT BODY FLUID STAT 01/22/2015 7:22 Res ults for this PM EDT procedure are i n the results section. PROTEIN LEVEL BODY STAT 01/22/2015 7:22 Result s for this FLUID PM EDT procedure are i n the results section. LACTATE DEHYDROGENASE STAT 01/22/2015 7:22 Res ults for this BODY FLUID PM EDT procedure are i n the results section. GLUCOSE LEVEL BODY STAT 01/22/2015 7:22 Result s for this FLUID PM EDT procedure are i n the results section. PH BODY FLUID STAT 01/22/2015 7:22 Results for this PM EDT procedure are i n the results section. TRANSFUSE THAWED PLASMA Routine 01/22/2015 6:39 PM EDT TRANSFUSE THAWED PLASMA Routine 01/22/2015 6:28 PM EDT TRANSFUSE THAWED PLASMA Routine 01/22/2015 6:12 PM EDT FUNGUS CULTURE & CALC Routine 01/22/2015 5:31 STAIN PM EDT ANAEROBIC CULTURE Routine 01/22/2015 5:31 Results for this PM EDT procedure are i n the results section. BODY FLUID CULTURE, Routine 01/22/2015 5:31 AEROBIC & ANAEROBIC PM EDT AFB CULTURE Routine 01/22/2015 5:31 Results for this PM EDT procedure are i n the results section. FUNGAL STAIN Routine 01/22/2015 5:31 Results for this PM EDT procedure are i n the results section. BODY FLUID CULTURE, Routine 01/22/2015 5:31 Resul ts for this AEROBIC PM EDT procedure are i n the results section. FUNGUS CULTURE Routine 01/22/2015 5:31 Results fo r this PM EDT procedure are i n the results section. TRANSFUSE THAWED PLASMA Routine 01/22/2015 5:[address] CHEST WO CONTRAST STAT 01/22/2015 5:08 Resu lts for this (GENERIC) PM EDT procedure are i n the results section. XR CHEST ONE VIEW STAT 01/22/2015 4:15 Results for this PM EDT procedure are i n the results section. PREPARE THAWED PLASMA STAT 01/22/2015 3:35 Res ults for this PM EDT procedure are i n the results section. ABO/RH TYPING Routine 01/22/2015 3:25 Results for this PM EDT procedure are i n the results section. ANTIBODY SCREEN Routine 01/22/2015 3:25 Results f or this PM EDT procedure are i n the results section. TYPE AND SCREEN Routine 01/22/2015 3:25 [place] [place] [place] PM EDT EKG 12-LEAD Routine 01/22/2015 2:09 Pericardial Results for this PM EDT effusion procedure are i n the results section. CMP W/FASTING GLUCOSE STAT 01/22/2015 2:00 Res ults for this PM EDT procedure are i n the results section. HEMOGRAM STAT 01/22/2015 2:00 Results for this PM EDT procedure are i n the results section. DIFFERENTIAL, AUTOMATED STAT 01/22/2015 2:00 R esults for this PM EDT procedure are i n the results section. APTT STAT 01/22/2015 2:00 Results for this PM EDT procedure are i n the results section. PROTHROMBIN TIME STAT 01/22/2015 2:00 Results for this PM EDT procedure are i n the results section. CBC (WITH DIFF) STAT 01/22/2015 2:00 PM EDT documented in this encounter Results SCAN DOC: KITCHEN MANAGER (01/29/2015 12:00 AM EDT) Narrative This result has an attachment that is no t available. Scanning Provider MEDIA MGR SCAN EXT ORDR/RSLT SCAN DOC: LAB (01/29/2015 12:00 AM EDT) Narrative This result has an attachment that is no t available. Scanning Provider MEDIA MGR SCAN EXT ORDR/RSLT XR chest routine PA & lateral (01/28/2015 3:18 PM EDT) Anatomical Region Laterality Modality Chest N/A Radiographic Imaging Specimen (Source) Anatomical Collection Method Collection Time Re ceived Time Location / / Volume Laterality 01/28/2015 3:18 PM EDT Impressions 01/28/2015 3:28 PM EDT IMPRESSION: Marked interval reduction of left pleura l effusion. No pneumothorax. Narrative 01/28/2015 3:28 PM EDT EXAMINATION: CHEST ROUTINE 2 VIEWS CLINICAL HISTORY: 54 y/o F who p/w hemop ericardium w/ cardiac tamponade now s/p pericardiocentesis, subsequent hemothora x, chest tube removed yesterday, ?reaccumulation TECHNIQUE: Standing PA and lateral chest COMPARISON: 01/24/2013 FINDINGS: There has been a marked interval reducti on in the size of the left pleural effusion and at least some reduction in the size of the cardiac silhouette, which is now normal in caliber. There ar e small residual pleural effusions and bibasilar atelectasis. Otherwise, the mirela ngs are clear. No pneumothorax or other complication is seen. Procedure Note Patricio Ortiz MD - 01/28/2015Formatt ing of this note might be different from the original. EXAMINATION: CHEST ROUTINE 2 VIEWS CLINICAL HISTORY: 54 y/o F who p/w hemop ericardium w/ cardiac tamponade now s/p pericardiocentesis, subsequent hemothora x, chest tube removed yesterday, ?reaccumulation TECHNIQUE: Standing PA and lateral chest COMPARISON: 01/24/2013 FINDINGS: There has been a marked interval reducti on in the size of the left pleural effusion and at least some reduction in the size of the cardiac silhouette, which is now normal in caliber. There ar e small residual pleural effusions and bibasilar atelectasis. Otherwise, the mirela ngs are clear. No pneumothorax or other complication is seen. IMPRESSION IMPRESSION: Marked interval reduction of left pleura l effusion. No pneumothorax. Linden Pacheco MD IMG DX ORDERABLES Immunoglobulins, Quantitative (01/28/2015 12:05 PM EDT) athologist Signature IgG 721 700 - 1,600 CERNER mg/dL MILLENNIUM IgA 103 70 - 400 CERNER mg/dL MILLENNIUM IgM 176 40 - 230 CERNER mg/dL MILLENNIUM Specimen Anatomical Collection Method Collection Time Receive d Time (Source) Location / / Volume Laterality Blood specimen 01/28/2015 12:05 201 5 (specimen) PM EDT 12:35 PM EDT Resulting Agency Comment Spec In Lab Linden Pacheco MD CHEMISTRY ORDERABLES Performing Organization Address City/[facility]/ZIP Code [place] [address] CERNER MILLENNIUM Duplex for DVT, Leg, Unilat (01/28/2015 11:07 AM EDT) Component Value Ref Test Analysis Performed At [facility] gist Range Method Time Signature VB Text VASCUBASE Report Department: Vascular Surgery Lab Patient: [id number] (FRANCIE YUSUF) CPT Code: 24039 ICD-9: 729.5 Referring Physician: LINDEN PACHECO Indication: ??Left lower extremity pain; ? DVT ICD9 Diagnosis Code: 729.5 LEFT: Patent common femoral vein and popliteal vein with spo ntaneous, respirophasic Doppler wavefo cassandra that respond normally to augmentation maneuvers. The common femoral vein, sap henofemoral junction, femoral vein through the thigh and popliteal vein are fully compressible. Patent posterior tibial and peroneal veins with no evidence of thrombus. Interpretation: LEFT: ??No evidence of lower extremity deep venous thrombosi s. Comparison: ??No previous study in our vascular lab da tabase for comparison. Electronically Signed by: JOVANNI ZAZUETA on 2015-01-28 03:18:3 8 PM VB Text End of Report VASCUBASE Report Specimen (Source) Anatomical Collection Method Collection Time Re ceived Time Location / / Volume Laterality 01/28/2015 11:07 AM EDT Linden Pacheco MD VASCULAR ORDERABLES Performing Organization Address City/State/ZIP Code Phon e Number [id number] Differential, Automated (01/28/2015 3:42 AM EDT) P athologist Signature Neutrophils % 71.4 % CERNER MILLENNIUM Neutr Abs (ANC) 5.46 1.50 - CERNER 6.30 MILLENNIUM x10(3)/mcL Lymphocytes % 15.1 % CERNER MILLENNIUM Lymphocytes Abs 1.2 1.0 - 3.6 CERNER x10(3)/mcL MILLENNIUM Monocytes % 9.0 % CERNER MILLENNIUM Monocyte Abs 0.7 0.2 - 1.0 CERNER x10(3)/mcL MILLENNIUM Eosinophils % 3.7 % CERNER MILLENNIUM Eosinophils Abs 0.3 0.0 - 0.5 CERNER x10(3)/mcL MILLENNIUM Basophils % 0.3 % CERNER MILLENNIUM Basophils Abs 0.0 0.0 - 0.2 CERNER x10(3)/mcL MILLENNIUM Immature Gran % 0.50 % CERNER MILLENNIUM Comment: Immature granulocytes(IG's)percentage an [...] Location / / Volume Laterality Blood specimen 01/28/2015 3:42 AM 015 4:01 (specimen) EDT AM EDT Resulting Agency Comment Spec In Lab Linden Pacheco MD HEMATOLOGY ORDERABLES Performing Organization Address City/State/ZIP [place] [address] CERNER MILLENNIUM (ABNORMAL) Hemogram (01/28/2015 3:42 AM EDT) P athologist Signature WBC 7.6 4.0 - 10.0 CERNER x10(3)/mcL MILLENNIUM RBC 4.36 3.93 - 5.22 CERNER x10(6)/mcL MILLENNIUM Hemoglobin 12.0 11.2 - 15.7 CERNER gm/dL MILLENNIUM Hematocrit 36.3 34.0 - 45.0 CERNER % MILLENNIUM MCV 83.3 79.0 - 94.0 CERNER fL MILLENNIUM MCH 27.5 26.6 - 32.2 CERNER pg MILLENNIUM MCHC 33.1 32.0 - 36.5 CERNER gm/dL MILLENNIUM Platelets 501 (H) 145 - 370 CERNER x10(3)/mcL MILLENNIUM RDWSD 41.0 35.0 - 46.0 CERNER fL MILLENNIUM RDWCV 13.5 10.9 - 14.4 CERNER % MILLENNIUM MPV 8.7 (L) 9.0 - 12.0 CERNER fL MILLENNIUM Specimen Anatomical Collection Method Collection Time Receive d Time (Source) Location / / Volume Laterality Blood specimen 01/28/2015 3:42 AM 015 4:01 (specimen) EDT AM EDT Resulting Agency Comment Spec In Lab Linden Pacheco MD HEMATOLOGY ORDERABLES Performing Organization Address City/State/[place] [address] CERNER MILLENNIUM APTT (01/28/2015 3:42 AM EDT) P athologist Signature PTT 30 25 - 35 sec CERNER MILLENNIUM Comment: Recommended therapeutic PTT range for fu ll dose unfractionated heparin is 80-114 seconds. Specimen Anatomical Collection Method Collection Time Receive d Time (Source) Location / / Volume Laterality Blood specimen 01/28/2015 3:42 AM 015 4:01 (specimen) EDT AM EDT Resulting Agency Comment Spec In Lab Linden Pacheco MD HEMATOLOGY ORDERABLES Performing Organization Address City/[facility]/[place] [address] CERNER MILLENNIUM Prothrombin Time (01/28/2015 3:42 AM EDT) P athologist Signature PT 14.6 12.5 - 15.5 CERNER sec MILLENNIUM Comment: Transfusion Committee Guidelines: INR less than 2.0, PTT less than OR equal to 43.5 seconds, or Fibrinogen greater t fernandes or equal to 100 mg/dl indicate adequate procoagulant activity for hemos tasis in patients without underlying bleeding disorders. INR 1.1 0.9 - 1.1 CERNER [facility] Specimen Anatomical Collection Method Collection Time Receive d Time (Source) Location / / Volume Laterality Blood specimen 01/28/2015 3:42 AM 015 4:01 (specimen) EDT AM EDT Resulting Agency Comment Spec In Lab Linden Pacheco MD HEMATOLOGY ORDERABLES Performing Organization Address City/State/ZIP Code [place] [address] CERNER MILLENNIUM (ABNORMAL) Basic Metabolic Panel (non-fasting) (01/28/2015 3:42 AM EDT) P athologist Signature Glucose Lvl 104 65 - 199 CERNER mg/dL MILLENNIUM Comment: Diabetes: >=200 mg/dL plus symp toms BUN 14 8 - 18 mg/dL CERNER MILLENNIUM Creatinine 0.75 0.70 - 1.20 mg/dL CERNER MILL ENNIUM Comment: Please note that the pediatric reference intervals supplied above were not validated at [facility] Results from pediatri c patients should be interpreted in conjunction to the patient's age, height and muscle mass. Sodium 140 135 - 145 mmol/L CERNER JARETH NIUM Potassium 3.8 3.5 - 5.0 mmol/L CERNER JARETH NIUM [...] 31 mmol/L CERNER MILLENNI UM Anion Gap 12 5 - 15 mmol/L CERNER MILLENNIU M Calcium 8.2 (L) 8.5 - 10.5 mg/dL CERNER JARETH [...] the following links into your internet browser. [email or web address] Specimen Anatomical Collection Method Collection Time Receive d Time (Source) Location / / Volume Laterality Blood specimen 01/28/2015 3:42 AM 015 4:01 (specimen) EDT AM EDT Resulting Agency Comment Spec In Lab Linden Pacheco MD CHEMISTRY ORDERABLES Performing Organization Address City/[facility]/ZIP [facility] [place] Phon e Number [address] CERNER MILLENNIUM Free Light Chains, Serum (01/27/2015 7:42 PM EDT) P athologist Signature [place] Free 1.82 0.33 - CERNER Light Chains 1.94 mg/dL MILLENNIUM Lambda Free 1.21 0.57 - CERNER Light Chains 2.63 mg/dL MILLENNIUM [place]/Lambda 1.5041 0.2600 - CERNER Free Light 1.6500 MILLENNIUM Chain Ratio Specimen Anatomical Collection Method Collection Time Receive d Time (Source) Location / / Volume Laterality Blood specimen 01/27/2015 7:42 PM 015 8:13 (specimen) EDT PM EDT Resulting Agency Comment Spec In Lab Linden Pacheco MD CHEMISTRY ORDERABLES Performing Organization Address [facility] Phon e Number [address] CERNER MILLENNIUM (ABNORMAL) Protein Electrophoresis, serum (01/27/2015 7:42 PM EDT) Patholo gist Method Time Signature Total Prot 5.8 (L) 6.1 - 8.0 CERNER Elec gm/dL MILLENNIUM Albumin Elect 3.37 (L) 3.60 - 6.00 CERNER gm/dL MILLENNIUM Alpha1-Globul 0.27 0.10 - 0.30 CERNER in gm/dL MILLENNIUM Alpha2-Globul 0.94 (H) 0.40 - 0.90 CERNER in gm/dL MILLENNIUM Beta Globulin 0.61 0.50 - 1.00 CERNER gm/dL MILLENNIUM Gamma 0.61 0.50 - 1.30 CERNER Globulin gm/dL MILLENNIUM M1 Band None None CERNER Detected Detected MILLENNIUM gm/dL Scan See Note CERNER MILLENNIUM Comment: Please see scanned report in Ch art Review under the [facility] Laboratory Heading. Specimen Anatomical Collection Method Collection Time Receive d Time (Source) Location / / Volume Laterality Blood specimen 01/27/2015 7:42 PM 015 8:13 (specimen) EDT PM EDT Narrative This result has an attachment that is no t available. Resulting Agency Comment Spec In Lab Linden Pacheco MD CHEMISTRY ORDERABLES Performing Organization Address [facility] Phon e Number [address] CERNER MILLENNIUM YELENA Titer (01/27/2015 9:31 AM EDT) athologist Signature YELENA Titer POSITIVE CERNER [facility]USYDI[facility] Comment: MIXED PATTERN SEEN 1:640 Titer seen with Centromere pattern. ??Is highly correlated with CREST syndrome of PSS. 1:160 Cytoplasmic pattern presen t using HEP-2 substrate. ??Is suggestive of autoantibodies to mitochondria or smooth muscle. Specimen Anatomical Collection Method Collection Time Receive d Time (Source) Location / / Volume Laterality Blood specimen 01/27/2015 9:31 AM 015 (specimen) EDT 12:12 PM EDT Resulting Agency Comment Spec In Lab Linden Pacheco MD IMMUNOLOGY ORDERABLES Performing Organization Address [facility] Phon e Number [address] CERNER SUSYENNIUM U1RNP Antibody (01/27/2015 9:31 AM EDT) athologist Signature U1RNP Auto Ab TNP [facility] SUSY[facility] Comment: Cancelled due to duplicate test on this order Test Performed by: [employer] [address], [place] [address] Ice Skater: Shawnee Roman Specimen Anatomical Collection Method Collection Time Receive d Time (Source) Location / / Volume Laterality Blood specimen Venous Draw / 01/27/2015 9:31 AM 2014 2:34 (specimen) Unknown EDT PM EDT Resulting Agency Comment Spec In Lab Linden Pacheco MD IMMUNOLOGY ORDERABLES Performing Organization Address [facility]/ZIP Code Phon e Number [address] CERNER [facility]USYDIAM[facility] Sm Antibody (01/27/2015 9:31 AM EDT) P athologist Signature Sm Auto Ab TNP [facility] Comment: Cancelled due to duplicate test on this order Test Performed by: Garcia [place] [address] Ice Skater: Shawnee Roman Specimen Anatomical Collection Method Collection Time Receive d Time (Source) Location / / Volume Laterality Blood specimen 01/27/2015 9:31 AM 015 1:37 (specimen) EDT PM EDT Resulting Agency Comment Spec In Lab Linden Pacheco MD IMMUNOLOGY ORDERABLES Performing Organization Address [facility] Code Phon e Number [address] [facility] SUSYDIAMOND [facility]IL[facility]ENTERIUM (ABNORMAL) Extractable Nuclear Antigen (ANITA) Ab (01/27/2015 9:31 AM EDT) Patholo gist Method Time Signature ANITA Ab CERNER Test ?Result ?Flag ??Unit ??RefValue [facility] Ab to Extractable Nuclear Ag Eval,S ??SS-A/Ro Ab, IgG, S ?1.1 ?H ?U -- REFERENCE VALUE -- <1.0 (Negative) Interpretation: Positive (>=1.0) ??SS-B/La Ab, IgG, S ?<0.2 ?U -- REFERENCE VALUE -- <1.0 (Negative) ??Sm Ab, IgG, S ? <0.2 ? U -- REFERENCE VALUE -- <1.0 (Negative) ??INCOME TAX EXPERT Ab, IgG, S ?0.7 ? U -- REFERENCE VALUE -- <1.0 (Negative) ??Scl 70 Ab, IgG, S ? <0.2 ?U -- REFERENCE VALUE -- <1.0 (Negative) ??Duyen 1 Ab, IgG, S ? <0.2 ?U -- REFERENCE VALUE -- <1.0 (Negative) Test Performed by: Garcia [place] [address] Ice Skater: Kerri Olson, Ph.D. (A) Specimen Anatomical Collection Method Collection Time Receive d Time (Source) Location / / Volume Laterality Blood specimen 01/27/2015 9:31 AM 015 1:37 (specimen) EDT PM EDT Resulting Agency Comment Spec In Lab Linden Pacheco MD IMMUNOLOGY ORDERABLES Performing Organization Address [facility]/State/[place] [address] CERTAINA MILLENNIUM (ABNORMAL) Complement, Total (01/27/2015 9:31 AM EDT) P athologist Signature Complement 21 (L) 30 - 75 CERNER Total unit/mL MILLENNIUM Comment: Test Performed by: [employer] [address] [address] Ice Skater: Kerri Olson, P h.D. Specimen Anatomical Collection Method Collection Time Receive d Time (Source) Location / / Volume Laterality Blood specimen 01/27/2015 9:31 AM 015 1:37 (specimen) EDT PM EDT Resulting Agency Comment Spec In Lab Linden Pacheco MD CHEMISTRY ORDERABLES Performing Organization Address City/[facility]/ZIP Code Phon e Number [address] CERNER MILLENNIUM (ABNORMAL) C4 Complement (01/27/2015 9:31 AM EDT) athologist Signature C4 Complement 2 (L) 10 - 40 CERNER mg/dL MILLENNIUM Specimen Anatomical Collection Method Collection Time Receive d Time (Source) Location / / Volume Laterality Blood specimen 01/27/2015 9:31 AM 015 9:36 (specimen) EDT AM EDT Resulting Agency Comment Spec In Lab Linden Pacheco MD CHEMISTRY ORDERABLES Performing Organization Address City/[facility]/ZIP Code Phon e Number [address] CERNER MILLENNIUM C3 Complement (01/27/2015 9:31 AM EDT) athologist Signature C3 Complement 97 90 - 180 CERNER mg/dL MILLENNIUM Specimen Anatomical Collection Method Collection Time Receive d Time (Source) Location / / Volume Laterality Blood specimen 01/27/2015 9:31 AM 015 9:36 (specimen) EDT AM EDT Resulting Agency Comment Spec In Lab Linden Pacheco MD CHEMISTRY ORDERABLES Performing Organization Address City/[facility]/ZIP Code Phon e Number [address] CERNER MILLENNIUM DNA Antibody (Double-Stranded) (01/27/2015 9:31 AM EDT) athologist Signature DNA Ab (DS) Neg Neg CERNER MILLENNIUM Specimen Anatomical Collection Method Collection Time Receive d Time (Source) Location / / Volume Laterality Blood specimen 01/27/2015 9:31 AM 015 (specimen) EDT 12:12 PM EDT Resulting Agency Comment Spec In Lab Linden Pacheco MD CHEMISTRY ORDERABLES Performing Organization Address City/[facility] [facility]/ZIP Code Phon e Number [address] CERNER MILLENNIUM (ABNORMAL) YELENA (01/27/2015 9:31 AM EDT) P athologist Signature YELENA Titer to Neg CERNER follow (A) MILLENNIUM Specimen Anatomical Collection Method Collection Time Receive d Time (Source) Location / / Volume Laterality Blood specimen 01/27/2015 9:31 AM 015 (specimen) EDT 12:12 PM EDT Resulting Agency Comment Spec In Lab Linden Pacheco MD IMMUNOLOGY ORDERABLES Performing Organization Address City/State/ZIP Code Phon e Number [place] [phone]OS[address] CERNER MILLENNIUM (ABNORMAL) Differential, Automated (01/27/2015 4:34 AM EDT) Patholo gist Method Time Signature Neutrophils % 90.2 % CERNER MILLENNIUM Neutr Abs (ANC) 6.10 1.50 - CERNER 6.30 MILLENNIUM x10(3)/mcL Lymphocytes % 5.6 % CERNER MILLENNIUM Lymphocytes Abs 0.4 (L) 1.0 - 3.6 CERNER x10(3)/mcL MILLENNIUM Monocytes % 3.1 % CERNER MILLENNIUM Monocyte Abs 0.2 0.2 - 1.0 CERNER x10(3)/mcL MILLENNIUM Eosinophils % 0.7 % CERNER MILLENNIUM Eosinophils Abs 0.0 0.0 - 0.5 CERNER x10(3)/mcL MILLENNIUM Basophils % 0.1 % CERNER MILLENNIUM Basophils [...] Location / / Volume Laterality Blood specimen 01/27/2015 4:34 AM 015 4:52 (specimen) EDT AM EDT Resulting Agency Comment Spec In Lab Linden Pacheco MD HEMATOLOGY ORDERABLES Performing Organization Address City/[facility]/ZIP Code Phon e Number [address] CERNER MILLENNIUM (ABNORMAL) Hemogram (01/27/2015 4:34 AM EDT) P athologist Signature WBC 6.8 4.0 - 10.0 CERNER x10(3)/mcL MILLENNIUM RBC 4.28 3.93 - 5.22 CERNER x10(6)/mcL MILLENNIUM Hemoglobin 11.7 11.2 - 15.7 CERNER gm/dL MILLENNIUM Hematocrit 35.1 34.0 - 45.0 CERNER % MILLENNIUM MCV 82.0 79.0 - 94.0 CERNER fL MILLENNIUM MCH 27.3 26.6 - 32.2 CERNER pg MILLENNIUM MCHC 33.3 32.0 - 36.5 CERNER gm/dL MILLENNIUM Platelets 472 (H) 145 - 370 CERNER x10(3)/mcL MILLENNIUM RDWSD 40.4 35.0 - 46.0 CERNER fL MILLENNIUM RDWCV 13.4 10.9 - 14.4 CERNER % MILLENNIUM MPV 8.5 (L) 9.0 - 12.0 CERNER fL MILLENNIUM Specimen Anatomical Collection Method Collection Time Receive d Time (Source) Location / / Volume Laterality Blood specimen 01/27/2015 4:34 AM 015 4:52 (specimen) EDT AM EDT Resulting Agency Comment Spec In Lab Linden Pacheco MD HEMATOLOGY ORDERABLES Performing Organization Address City/State/[place] [address] CERNER MILLENNIUM APTT (01/27/2015 4:34 AM EDT) P athologist Signature PTT 32 25 - 35 sec CERNER MILLENNIUM Comment: Recommended therapeutic PTT range for fu ll dose unfractionated heparin is 80-114 seconds. Specimen Anatomical Collection Method Collection Time Receive d Time (Source) Location / / Volume Laterality Blood specimen 01/27/2015 4:34 AM 015 4:52 (specimen) EDT AM EDT Resulting Agency Comment Spec In Lab Linden Pacheco MD HEMATOLOGY ORDERABLES Performing Organization Address City/[facility] [place] [address] [facility] M[facility]UM (ABNORMAL) Prothrombin Time (01/27/2015 4:34 AM EDT) P athologist Signature PT 16.2 (H) 12.5 - 15.5 CERNER sec MILLENNIUM Comment: Transfusion Committee Guidelines: INR less than 2.0, PTT less than OR equal to 43.5 seconds, or Fibrinogen greater t fernandes or equal to 100 mg/dl indicate adequate procoagulant activity for hemos tasis in patients without underlying bleeding disorders. INR 1.2 (H) 0.9 - 1.1 CERNER MILLENNIUM Specimen Anatomical Collection Method Collection Time Receive d Time (Source) Location / / Volume Laterality Blood specimen 01/27/2015 4:34 AM 015 4:52 (specimen) EDT AM EDT Resulting Agency Comment Spec In Lab Linden Pacheco MD HEMATOLOGY ORDERABLES Performing Organization Address City/[facility]/ZIP Code Phon e Number [address] [facility]) Basic Metabolic Panel (non-fasting) (01/27/2015 4:34 AM EDT) P athologist Signature Glucose Lvl 127 65 - 199 CERNER mg/dL MILLENNIUM Comment: Diabetes: >=200 mg/dL plus symp toms BUN 10 8 - 18 mg/dL CERNER MILLENNIUM Creatinine 0.60 (L) 0.70 - 1.20 mg/dL CERNER MILL ENNIUM Comment: Please note that the pediatric reference intervals supplied above were not validated [place] [facility] Results from pediatri c patients should be interpreted in conjunction to the patient's age, height and muscle mass. Sodium 138 135 - 145 mmol/L CERNER JARETH NIUM Potassium 4.4 3.5 - 5.0 mmol/L CERNER JARETH NIUM [...] - 15 mmol/L CERNER MILLENNIU M Calcium 8.0 (L) 8.5 - 10.5 mg/dL CERNER JARETH [...] the following links into your internet browser. [email or web address] [email or web address] Specimen Anatomical Collection Method Collection Time Receive d Time (Source) Location / / Volume Laterality Blood specimen 01/27/2015 4:34 AM 015 4:52 (specimen) EDT AM EDT Resulting Agency Comment Spec In Lab Linden Pacheco MD CHEMISTRY ORDERABLES Performing Organization Address City/State/[place] [address] BECKIE JAINENNIUM Echocardiogram Transthoracic(Leb) (01/26/2015 8:07 AM EDT) P athologist Signature EF 65 [facility] Anatomical Region Laterality Modality Other Specimen (Source) Anatomical Location Collection Method / Collectio n Time Received Time / Laterality Volume 01/26/2015 Narrative 01/26/2015 8:58 AM EDT Procedure: ?Transthoracic Echocardiogram Patient: ?LISANDRO ESQUEDA N ? (Age): 1960(54y) Med Rec#: ? [id number] ?Sex: ?F ? Site Loc: ? DH ?Ht / Wt: ??165(cm)/95(kg) Pt. Loc: ?Adult Floor ? BSA: ?2.02 Study Date: ?? 01/26/2015 ?Pt. Type: Inpatient Tape: ? Referring: BREA JACKMAN D Referring: Linden Pacheco Reading: Alexey Mosqueda ([id number]) Justice Of The Peace: Conor Interiano Diagnosis: *Pericardial effusion (423.9) CPT Codes: *Echo LTD (70601) *Color Doppler (86207) *Doppler LTD (49103) Indication: ?? F/U Pericardial Effusion Rhythm: ? Sinus BP: ? 146/74 SUMMARY: 1. Limited echocardiogram follow up for pericardial effusion 2. Global left ventricular wall motion a nd contractility are probably within normal limits. The visually estim ated left ventricular ejection fraction is 65% The right ventricle is p robably normal in size. 3. Normal valve structures 4. Normal chamber dimensions 5. There is a small posterior pericardia l effusion. ??There is no echo or doppler evidence of pericardial tamponad e. ??When compared to the prior 01/23/15 study, the effusion appears smal ler FINDINGS: ? Study Quality ?Adequate Left Ventricle ?The left ventricular chamber size is normal. ?Global left ventricular wall motio n and contractility are probably within normal limits. ?The visually estimated left ventri cular ejection fraction is 65% ?Doppler assessment is consistent w ith normal left sided filling pressure. Right Ventricle ?The right ventricle is probably no rmal in size. ?Right ventricular global systolic function is poorly visualized. Pericardium ?There is a small posterior pericar dial effusion. ?There is no echo evidence of peric ardial tamponade. Venous ?The inferior vena cava appears nor mal in size. ?There is less than 50% respiratory change in the inferior vena cava dimension consistent with elevated right atrial pressure. Misc ?Two-dimensional echo and limited s pectral Doppler performed. Diastolic/Systolic Function ?Value ?Units (Range) ? MV E-wave Vmax ?0.9 ?m/sec ? MV deceleration [id number] ?msec ? MV A-wave Vmax ?0.4 ?m/sec ? MV E:A ratio ?2.1 ?ratio ? LV septal e' Vmax ?? 0.1 ?m/sec ? LV E:e' septal ratio9.7 ?ratio ? This report has been electronically sign ed by: _ Alexey Mosqueda MD ? 01/26/2015 08:58: 25 Images reviewed and interpretation verif ied [facility] Cardiac Ultrasound Laboratory Procedure Note Alexey Mosqueda MD - 01/26/2015 Procedure: Transthoracic Echocardiogram Patient: LISANDRO Gonzales (Age): [birth year](54y) [facility] Rec#: [id number] Sex: F [place] [facility] Ht / Wt: 165(cm)/95(kg) Pt. Loc: Adult Floor BSA: 2.02 Study Date: 01/26/2015 Pt. Type: Inpatie nt Tape: Referring: BREA JACKMAN D Referring: Linden Pacheco Reading: Alexey Mosqueda ([id number]) Justice Of The Peace: Conor Interiano Diagnosis: *Pericardial effusion (423.9) CPT Codes: *Echo LTD (36164) *Color Doppler (76258) *Doppler LTD (78027) Indication: F/U Pericardial Effusion Rhythm: Sinus BP: 146/74 SUMMARY: 1. Limited echocardiogram follow up for pericardial effusion 2. Global left ventricular wall motion a nd contractility are probably within normal limits. The visually estim ated left ventricular ejection fraction is 65% The right ventricle is p robably normal in size. 3. Normal valve structures 4. Normal chamber dimensions 5. There is a small posterior pericardia l effusion. There is no echo or doppler evidence of pericardial tamponad e. When compared to the prior 01/23/15 study, the effusion appears smal ler FINDINGS: Study Quality Adequate Left Ventricle The left ventricular chamber size is no rmal. Global left ventricular wall motion and contractility are probably within normal limits. The visually estimated left ventricular ejection fraction is 65% Doppler assessment is consistent with n ormal left sided filling pressure. Right Ventricle The right ventricle is probably normal in size. Right ventricular global systolic funct ion is poorly visualized. Pericardium There is a small posterior pericardial effusion. There is no echo evidence of pericardia l tamponade. Venous The inferior vena cava appears normal i n size. There is less than 50% respiratory mcnair ge in the inferior vena cava dimension consistent with elevated right atrial pressure. [facility] and limited spectr al Doppler performed. Diastolic/Systolic Function Value Units (Range) MV E-wave Vmax 0.9 m/sec MV deceleration [id number] msec MV A-wave Vmax 0.4 m/sec MV E:A ratio 2.1 ratio LV septal e' Vmax 0.1 m/sec LV E:e' septal ratio9.7 ratio This report has been electronically sign ed by: _ Alexey Mosqueda MD 01/26/2015 08:58:25 Images reviewed and interpretation verif ied [facility] Cardiac Ultrasound Laboratory Linden Pacheco MD ECHO ORDERABLES Lactate Dehydrogenase (01/26/2015 3:44 AM EDT) athologist Signature LDH 214 110 - 220 CERNER unit/L MILLENNIUM Specimen Anatomical Collection Method Collection Time Receive d Time (Source) Location / / Volume Laterality Blood specimen Venous Draw / 01/26/2015 3:44 AM 2014 4:25 (specimen) Unknown EDT AM EDT Resulting Agency Comment Spec In Lab Linden Pacheco MD CHEMISTRY ORDERABLES Performing Organization Address City/State/ZIP Code Phon e Number [address] CERNER MILLENNIUM (ABNORMAL) Protein, total (01/26/2015 3:44 AM EDT) P athologist Signature Total Protein 5.7 (L) 6.1 - 8.0 CERNER gm/dL MILLENNIUM Specimen Anatomical Collection Method Collection Time Receive d Time (Source) Location / / Volume Laterality Blood specimen Venous Draw / 01/26/2015 3:44 AM 2014 4:25 (specimen) Unknown EDT AM EDT Resulting Agency Comment Spec In Lab Linden Pacheco MD CHEMISTRY ORDERABLES Performing Organization Address City/[facility]/ZIP Code Phon e Number [address] CERNER MILLENNIUM (ABNORMAL) Differential, Automated (01/26/2015 3:44 AM EDT) [facility] gist Method Time Signature Neutrophils % 75.6 % CERNER MILLENNIUM Neutr Abs (ANC) 4.24 1.50 - CERNER 6.30 MILLENNIUM x10(3)/mcL Lymphocytes % 13.8 % CERNER MILLENNIUM Lymphocytes Abs 0.8 (L) 1.0 - 3.6 CERNER x10(3)/mcL MILLENNIUM Monocytes % 7.9 % CERNER MILLENNIUM Monocyte Abs 0.4 0.2 - 1.0 CERNER x10(3)/mcL MILLENNIUM Eosinophils % 2.3 % CERNER MILLENNIUM Eosinophils Abs 0.1 0.0 - 0.5 CERNER x10(3)/mcL MILLENNIUM Basophils % 0.2 % CERNER MILLENNIUM Basophils Abs 0.0 0.0 - 0.2 CERNER x10(3)/mcL MILLENNIUM Immature Gran % 0.20 % CERNER MILLENNIUM [...] Location / / Volume Laterality Blood specimen 01/26/2015 3:44 AM 015 4:17 (specimen) EDT AM EDT Resulting Agency Comment Spec In Lab Linden Pacheco MD HEMATOLOGY ORDERABLES Performing Organization Address City/State/ZIP [place] [address] CERNER MILLENNIUM (ABNORMAL) Hemogram (01/26/2015 3:44 AM EDT) P athologist Signature WBC 5.6 4.0 - 10.0 CERNER x10(3)/mcL MILLENNIUM RBC 3.55 (L) 3.93 - CERNER 5.22 MILLENNIUM x10(6)/mcL Hemoglobin 9.8 (L) 11.2 - CERNER 15.7 gm/dL MILLENNIUM Hematocrit 29.4 (L) 34.0 - CERNER 45.0 % MILLENNIUM MCV 82.8 79.0 - CERNER 94.0 fL [facility] MCH 27.6 26.6 - CERNER 32.2 pg [facility] MCHC 33.3 32.0 - CERNER 36.5 gm/dL [facility] Platelets 432 (H) 145 - 370 CERNER x10(3)/mcL [facility] RDWSD 41.2 35.0 - CERNER 46.0 fL [facility] RDWCV 13.5 10.9 - CERNER 14.4 % [facility] MPV 8.8 (L) 9.0 - 12.0 CERNER fL [facility] Specimen Anatomical Collection Method Collection Time Receive d Time (Source) Location / / Volume Laterality Blood specimen 01/26/2015 3:44 AM 015 4:17 (specimen) EDT AM EDT Resulting Agency Comment Spec In Lab Linden Pacheco MD HEMATOLOGY ORDERABLES Performing Organization Address [facility] [place] [address] [facility] MILLENNIUM APTT (01/26/2015 3:44 AM EDT) P athologist Signature PTT 32 25 - 35 sec [facility] Comment: Recommended therapeutic PTT range for fu ll dose unfractionated heparin is 80-114 seconds. Specimen Anatomical Collection Method Collection Time Receive d Time (Source) Location / / Volume Laterality Blood specimen 01/26/2015 3:44 AM 015 4:17 (specimen) EDT AM EDT Resulting Agency Comment Spec In Lab Linden Pacheco MD HEMATOLOGY ORDERABLES Performing Organization Address [facility] [place] [address] [facility] MILLENNIUM (ABNORMAL) Prothrombin Time (01/26/2015 3:44 AM EDT) P athologist Signature PT 16.7 (H) 12.5 - 15.5 CERNER sec MILLENNIUM Comment: Transfusion Committee Guidelines: INR less than 2.0, PTT less than OR equal to 43.5 seconds, or Fibrinogen greater t fernandes or equal to 100 mg/dl indicate adequate procoagulant activity for hemos tasis in patients without underlying bleeding disorders. INR 1.3 (H) 0.9 - 1.1 CERNER MILLENNIUM Specimen Anatomical Collection Method Collection Time Receive d Time (Source) Location / / Volume Laterality Blood specimen 01/26/2015 3:44 AM 015 4:17 (specimen) EDT AM EDT Resulting Agency Comment Spec In Lab Linden Pacheco MD HEMATOLOGY ORDERABLES Performing Organization Address City/State/ZIP Code Phon e Number [place] [phone] HOSPITAL LAB[address] Drive CERNER MILLENNIUM (ABNORMAL) Basic Metabolic Panel (non-fasting) (01/26/2015 3:44 AM EDT) athologist Signature Glucose Lvl 102 65 - 199 CERNER mg/dL MILLENNIUM Comment: Diabetes: >=200 mg/dL plus symp toms BUN 10 8 - 18 mg/dL CERNER MILLENNIUM Creatinine 0.57 (L) 0.70 - 1.20 mg/dL CERNER MILL ENNIUM Comment: Please note that the pediatric reference intervals supplied above were not validated [place] [facility] Results from pediatri c patients should be [...] - 15 mmol/L CERNER MILLENNIU M Calcium 7.7 (L) 8.5 - 10.5 mg/dL CERNER JARETH [...] the following links into your internet browser. [email or web address] [email or web address] Specimen Anatomical Collection Method Collection Time Receive d Time (Source) Location / / Volume Laterality Blood specimen 01/26/2015 3:44 AM 015 4:17 (specimen) EDT AM EDT Resulting Agency Comment Spec In Lab Linden Pacheco MD CHEMISTRY ORDERABLES Performing Organization Address City/State/ZIP Code Phon e Number [place] [phone] HOSPITAL LAB[address] Drive [facility] [employer] IR chest drainage procedure (01/25/2015 2:29 PM EDT) Anatomical Region Laterality Modality Chest X-Ray Angiography Specimen (Source) Anatomical Collection Method Collection Time Re ceived Time Location / / Volume Laterality 01/25/2015 2:29 PM EDT Narrative 01/26/2015 12:31 PM EDT Procedure: US-guided chest tube placement A#: [id number] Indication: 54 y.o. female w/ h/o antiph ospholipid antibody syndrome (on coumadin), amyloidosis, HTN, hypothyroid ism, asthma and supra-therapeutic INR (9) transferred on 01/22 with pericardial tamponade (etiology unclear) s/p pericardial drain (bloody pericardial ef fusion), now removed. Patient w/ persistent SOB and report of increased O [address] shows increased left pleural effusion from 01/22, now w/ mixed heterog eneity c/w blood/blood clot. Consent: After discussing risks (includi ng infection and hemorrhage), and benefits, informed verbal and written co nsent was obtained. Technique: A moment of truth was perform ed and the patient and procedure correctly identified. Split doses of fen tanyl were administered by the IR nurse during continuous monitoring of pulse, b lood pressure and oxygen saturation for alleviation of discomfort. The posterior left hemithorax was preppe d and draped in the usual sterile fashion. Maximal sterile barrier techniq ue was used throughout the procedure. 1% lidocaine was used as local anesthesia. Under US guidance, the pleural space was entered with a 21 gauge needle. There wa s free return of sanguinous pleural fluid. An .018 inch wire was placed into the pleural space and a 4 Fr introducer advanced. Inner dilator and wire removed and an .035 inch guidewire advanced. The tract was then dilated to 8 Fr and a n 8 Fr pigtail catheter was advanced into the left pleural space. Locking loo p was formed and catheter location in pleural fluid confirmed with U/S. The drain was connected to pleurovac coreen inage system (-20 cm H2O LWS). The patient tolerated the procedure with min imal discomfort. Complications: None immediate EBL: <1 cc Medications: 150 mg Fentanyl IV <10 cc 1% lidocaine SQ Findings: 1. Moderate left pleural effusion by U/S 2. U/S guided 8 Fr chest tube placement with expected return of sanguinous fluid. Fellow: Rajesh Curry MD Attending: Dr. Scott Oseguera, Dr. Chavez, was not present for this p rocedure. Film and interpretation reviewed by the attending Procedure Note Edwina Chavez MD - 01/26/2015 Procedure: US-guided chest tube placemen t A#: [id number] Indication: 54 y.o. female w/ h/o antiph ospholipid antibody syndrome (on coumadin), amyloidosis, HTN, hypothyroid ism, asthma and supra-therapeutic INR (9) transferred on 01/22 with pericardial tamponade (etiology unclear) s/p pericardial drain (bloody pericardial ef fusion), now removed. Patient w/ persistent SOB and report of increased O [address] shows increased left pleural effusion from 01/22, now w/ mixed heterog eneity c/w blood/blood clot. Consent: After discussing risks (includi ng infection and hemorrhage), and benefits, informed verbal and written co nsent was obtained. Technique: A moment of truth was perform ed and the patient and procedure correctly identified. Split doses of fen tanyl were administered by the IR nurse during continuous monitoring of pulse, b lood pressure and oxygen saturation for alleviation of discomfort. The posterior left hemithorax was preppe d and draped in the usual sterile fashion. Maximal sterile barrier techniq ue was used throughout the procedure. 1% lidocaine was used as local anesthesia. Under US guidance, the pleural space was entered with a 21 gauge needle. There wa s free return of sanguinous pleural fluid. An .018 inch wire was placed into the pleural space and a 4 Fr introducer advanced. Inner dilator and wire removed and an .035 inch guidewire advanced. The tract was then dilated to 8 Fr and a n 8 Fr pigtail catheter was advanced into the left pleural space. Locking loo p was formed and catheter location in pleural fluid confirmed with U/S. The drain was connected to pleurovac coreen inage system (-20 cm H2O LWS). The patient tolerated the procedure with min imal discomfort. Complications: None immediate EBL: <1 cc Medications: 150 mg Fentanyl IV <10 cc 1% lidocaine SQ Findings: 1. Moderate left pleural effusion by U/S 2. U/S guided 8 Fr chest tube placement with expected return of sanguinous fluid. Fellow: Rajesh Curry MD Attending: Dr. Chavez I, Dr. Chavez, was not present for this p rocedure. Film and interpretation reviewed by the attending Linden Pacheco MD IMG IR ORDERABLES Fluid Review Report (01/25/2015 2:10 PM EDT) Component Value Ref Test Analysis Performed At [employer] Range Method Time Signature Fluid Review CERNER Report ? [facility] ? Provider: ?? BABITA DOMINGUEZ ?Pt. Name: ?? SEBLE JUSTIN FRANCIE Janet ? Acc #: ?[id number] ? Pt. ? Col Date: ?? 5 ? /Sex: ?1960,(54 years),Female ? Rec Date: ?? 01/27/2015 ? LOC: ?[facility] ? MORPHOLOGIC HEMATOLOGY: FLUID REVIEW ? ---Clinical Information--- ? Specimen: ? Left Pleural Fluid ? Clinical Diagnosis: ? Antiphospholipid synd trice, pleural effusion ? Indication for Study: ?? Leukemia/Lymphoma Screen ? ---Preparation--- ? Microscopic Description: ?WBC/ul: ?2863 ?RBC/uL ? [id number] ? 200 cells counted on cytocentrifuge preparation . ? # ?Neut: ??17 ?Lymph: 41 ?Phag: ??132 ?Eos: ?? 0 ?Baso: ??2 ?Meso: ??8 ?Other: 0 ? ---Interpretation--- ? Mixed inflammatory infiltrate. No malignant cells are seen on the ? cytocentrifuge preparation. ? 01/28/15 ? DAVID ? 01/28/15 Verified by: ? JAY IRVING ? Hematopatholog ist ? (Electronic Si gnature) ? The attending pathologist whose signature appears o n this report has ? reviewed all diagnostic slides and has edited the massiel ss and/or ? microscopic portion of the report in rendering the fi nal pathologic ? diagnosis. Specimen (Source) Anatomical Collection Method Collection Time Re ceived Time Location / / Volume Laterality 01/25/2015 2:10 PM EDT Babita Dominguez DO PATHOLOGY/CYTOLOGY ORDERABLE S Performing Organization Address City/State/ZIP [place] [address] CERNER MILLENNIUM Leukemia Lymphoma Screen (01/25/2015 2:10 PM EDT) Patholo gist Method Time Signature LLS BF Type Pleural CERNER fluid MILLENNIUM Leukemia See Comment CERNER Lymphoma MILLENNIUM Screen Comment: See Fluid Review Report [id number] under Hematopathology Reports. Specimen Anatomical Collection Method Collection Time Receive d Time (Source) Location / / Volume Laterality Pleural fluid Other / Unknown 01/25/2015 2:10 PM 01/27 7:03 specimen EDT PM EDT (specimen) Resulting Agency Comment Spec In Lab Linden Pacheco MD BODY FLUIDS AND STOOLS ORDER RINA Performing Organization Address City/State/ZIP Code Phon e Number [id number] CERNER MILLENNIUM (ABNORMAL) Body fluid culture (01/25/2015 2:10 PM EDT) Component Value Ref Test [facility] Range Method Time Signature Body Fluid CERNER Culture ? Patient Name: Valentine YUSUF ? Ordered By: LINDEN PACHECO ? MR#: [id number] ?LOC: ??[facility] ? /Sex: ??1960 (54 years), ? Female ? PROCEDURE: Body Fluid Culture ?SOURCE: Pleural Fl ? COLLECTED: 01/25/2015 14:10 ? STARTED: 01/25/2015 15:01 ? STAINS / PREPARATIONS ? Gram Stain Report ? Verified:01/25/2015 15:52 ? Cytocentrifuge Gram Stain performed ? White Blood Cells seen ? No microorganisms seen. ? FINAL REPORT ? Final Report ? Verified:01/29/2015 11:35 ? One colony of Coagulase negative Staphylococcus speci es ? PRELIMINARY REPORT ? Preliminary Report ? Verified:01/28/2015 11:02 ? One colony of Coagulase negative Staphylococcus speci es ? (A) Specimen Anatomical Collection Method Collection Time Receive d Time (Source) Location / / Volume Laterality Pleural fluid 01/25/2015 2:10 PM 01/26/20 15 3:01 specimen EDT PM EDT (specimen) Resulting Agency Comment Spec In Lab Linden Pacheco MD MICROBIOLOGY - GENERAL ORDER RINA Performing Organization Address City/[facility] Phon e Number [address] CERNER MILLENNIUM Protein Level Body Fluid Pleural, Left (01/25/2015 2:10 PM EDT) P athologist Signature Protein, BF 3.5 gm/dL CERNER MILLENNIUM Comment: There is no reference range available fo r the specimen type submitted. For determination of transudative vs. ex udative pleural effusions: Transudates: Pleural Total Protein/Serum Total Protein < 0.5 Exudates: Pleural Total Protein/Serum To alvina Protein > 0.5 Protein BF Type Pleural, Left CERNER MIL LENNIUM Specimen Anatomical Collection Method Collection Time Receive d Time (Source) Location / / Volume Laterality Pleural fluid 01/25/2015 2:10 PM 01/26/20 15 2:40 specimen EDT PM EDT (specimen) Resulting Agency Comment Spec In Lab Linden Pacheco MD BODY FLUIDS AND STOOLS ORDER RINA Performing Organization Address [facility] Phon e Number [address] CERNER MILLENNIUM Lactate Dehydrogenase Body Fluid Pleural, Left (01/25/2015 2:10 PM EDT) P athologist Signature LDH BF 383 unit/L CERNER MILLENNIUM Comment: No reference range is available for the specimen type submitted. ??The performance of this assay for the submit richard type has not been validated and results should be interpreted accordingl y and with regard to the patient's clinical status. LDH, BF Type Pleural, Left CERNER JARETH NIUM Specimen Anatomical Collection Method Collection Time Receive d Time (Source) Location / / Volume Laterality Pleural fluid 01/25/2015 2:10 PM 01/26/20 15 2:40 specimen EDT PM EDT (specimen) Resulting Agency Comment Spec In Lab Linden Pacheco MD BODY FLUIDS AND STOOLS ORDER RINA Performing Organization Address City/[facility]/ZIP Code Phon e Number [address] CERNER MILLENNIUM Hematocrit Body Fluid Pleural, Left (01/25/2015 2:10 PM EDT) athologist Signature HCT BF Type Pleural, CERNER Left MILLENNIUM HCT BF 3.5 % CERNER MILLENNIUM Comment: A HCT of 1% corresponds to RBC of 100,000/ul Specimen Anatomical Collection Method Collection Time Receive d Time (Source) Location / / Volume Laterality Pleural fluid 01/25/2015 2:10 PM 01/26/20 15 2:40 specimen EDT PM EDT (specimen) Resulting Agency Comment Spec In Lab Linden Pacheco MD BODY FLUIDS AND STOOLS ORDER RINA Performing Organization Address City/[facility]/ZIP [facility] Phon e Number [address] CERNER MILLENNIUM Cell Count Body Fluid Pleural, Left (01/25/2015 2:10 PM EDT) [facility] Method Time Signature Spec Type BF Pleural, CERNER Left MILLENNIUM Color BF Red CERNER MILLENNIUM Appearance BF Slightly CERNER Cloudy MILLENNIUM Nucl Cell BF 2,863 /mcl CERNER Ct MILLENNIUM Comment: If Nucleated Cell Count equals zero, No Scan or Differential is performed. If Nucleated Cell Count equals 1-5, Smea r is scanned but no results are reported unless abnormalities are seen. If Nucleated Cell Count equals [address], Differential is reported. Nucleated Cell Count results are correla richard with body fluid type and clinical condition. Neut Absolute BF 229 /mcl CERNER JARETH NIUM Neutrophil BF 8 % CERNER MILLENNIU M Lymphocyte BF 20 % CERNER MILLENNIU M Macrophage BF 67 % CERNER MILLENNIU M Comment: SIGNET RING CELLS PRESENT RARE RBC AND RARE WBC PHAGOCYTOSIS PRESE NT Basophil BF 1 % CERNER MILLENNIUM Mesothelial BF 4 % CERNER MILLENNI UM Tot Diff Ct BF 200 Cells CERNER MILLENNI UM Specimen Anatomical Collection Method Collection Time Receive d Time (Source) Location / / Volume Laterality Pleural fluid 01/25/2015 2:10 PM 01/26/20 15 2:40 specimen EDT PM EDT (specimen) Resulting Agency Comment Spec In Lab Linden Pacheco MD BODY FLUIDS AND STOOLS ORDER RINA Performing Organization Address City/State/[place] [address] BECKIE FELTONIUM Anaerobic Culture (01/25/2015 1:34 PM EDT) [employer] Method Time Signature Anaerobic CERNER Culture ? Patient Name: Valentine YUSUF ? Ordered By: LINDEN PACHECO ? MR#: [id number] ?LOC: ??[facility] ? /Sex: ??1960 (54 years), ? Female ? PROCEDURE: Anaerobic Culture ?SOURCE: Pleural Fl ? COLLECTED: 01/25/2015 13:34 ? STARTED: 01/25/2015 15:01 ? FINAL REPORT ? Final Report ? Verified:01/29/2015 14:25 ? No anaerobic organisms isolated ? PRELIMINARY REPORT ? Preliminary Report ? Verified:01/26/2015 13:03 ? No anaerobic organisms isolated to date ? Specimen Anatomical Collection Method Collection Time Receive d Time (Source) Location / / Volume Laterality Pleural fluid 01/25/2015 1:34 PM 01/26/20 15 3:01 specimen EDT PM EDT (specimen) Resulting Agency Comment Spec In Lab Linden Pacheco MD MICROBIOLOGY - GENERAL ORDER RINA Performing Organization Address City/State/[place] [address] CERNER MILLENNIUM (ABNORMAL) Differential, Automated (01/25/2015 4:55 AM EDT) [employer] Method Time Signature Neutrophils % 78.2 % CERNER MILLENNIUM Neutr Abs (ANC) 5.39 1.50 - CERNER 6.30 MILLENNIUM x10(3)/mcL Lymphocytes % 10.2 % CERNER MILLENNIUM Lymphocytes Abs 0.7 (L) 1.0 - 3.6 CERNER x10(3)/mcL MILLENNIUM Monocytes % 9.3 % CERNER MILLENNIUM Monocyte Abs 0.6 0.2 - 1.0 CERNER x10(3)/mcL MILLENNIUM Eosinophils % 1.9 % CERNER MILLENNIUM Eosinophils Abs 0.1 0.0 - 0.5 CERNER x10(3)/mcL MILLENNIUM Basophils % 0.1 % CERNER MILLENNIUM Basophils [...] Location / / Volume Laterality Blood specimen 01/25/2015 4:55 AM 015 5:14 (specimen) EDT AM EDT Resulting Agency Comment Spec In Lab Linden Pacheco MD HEMATOLOGY ORDERABLES Performing Organization Address City/State/ZIP [place] [address] CERNER MILLENNIUM (ABNORMAL) Hemogram (01/25/2015 4:55 AM EDT) P athologist Signature WBC 6.9 4.0 - 10.0 CERNER x10(3)/mcL MILLENNIUM RBC 3.21 (L) 3.93 - CERNER 5.22 MILLENNIUM x10(6)/mcL Hemoglobin 8.9 (L) 11.2 - CERNER 15.7 gm/dL MILLENNIUM Hematocrit 26.7 (L) 34.0 - CERNER 45.0 % MILLENNIUM MCV 83.2 79.0 - CERNER 94.0 fL MILLENNIUM MCH 27.7 26.6 - CERNER 32.2 pg MILLENNIUM MCHC 33.3 32.0 - CERNER 36.5 gm/dL MILLENNIUM Platelets 385 (H) 145 - 370 CERNER x10(3)/mcL MILLENNIUM RDWSD 41.5 35.0 - CERNER 46.0 fL MILLENNIUM RDWCV 13.6 10.9 - CERNER 14.4 % MILLENNIUM MPV 8.7 (L) 9.0 - 12.0 CERNER fL MILLENNIUM Specimen Anatomical Collection Method Collection Time Receive d Time (Source) Location / / Volume Laterality Blood specimen 01/25/2015 4:55 AM 015 5:14 (specimen) EDT AM EDT Resulting Agency Comment Spec In Lab Linden Pacheco MD HEMATOLOGY ORDERABLES Performing Organization Address City/[facility]/ZIP Code Phon [place] [address] CERNER MILLENNIUM APTT (01/25/2015 4:55 AM EDT) P athologist Signature PTT 35 25 - 35 sec CERNER MILLENNIUM Comment: Recommended therapeutic PTT range for fu ll dose unfractionated heparin is 80-114 seconds. Specimen Anatomical Collection Method Collection Time Receive d Time (Source) Location / / Volume Laterality Blood specimen 01/25/2015 4:55 AM 015 5:14 (specimen) EDT AM EDT Resulting Agency Comment Spec In Lab Linden Pacheco MD HEMATOLOGY ORDERABLES Performing Organization Address City/State/ZIP Code Phon e Number [address] CERNER MILLENNIUM (ABNORMAL) Prothrombin Time (01/25/2015 4:55 AM EDT) athologist Signature PT 18.0 (H) 12.5 - 15.5 CERNER sec MILLENNIUM Comment: Transfusion Committee Guidelines: INR less than 2.0, PTT less than OR equal to 43.5 seconds, or Fibrinogen greater t fernandes or equal to 100 mg/dl indicate adequate procoagulant activity for hemos tasis in patients without underlying bleeding disorders. INR 1.4 (H) 0.9 - 1.1 CERNER MILLENNIUM Specimen Anatomical Collection Method Collection Time Receive d Time (Source) Location / / Volume Laterality Blood specimen 01/25/2015 4:55 AM 015 5:14 (specimen) EDT AM EDT Resulting Agency Comment Spec In Lab Linden Pacheco MD HEMATOLOGY ORDERABLES Performing Organization Address City/State/[place] [address] CERNER MILLENNIUM (ABNORMAL) Basic Metabolic Panel (non-fasting) (01/25/2015 4:55 AM EDT) P athologist Signature Glucose Lvl 104 65 - 199 CERNER mg/dL MILLENNIUM Comment: Diabetes: >=200 mg/dL plus symp toms BUN 12 8 - 18 mg/dL CERNER MILLENNIUM Creatinine 0.57 (L) 0.70 - 1.20 mg/dL CERNER MILL ENNIUM Comment: Please note that the pediatric reference intervals supplied above were not validated at [facility] Results from pediatri c patients should be interpreted in conjunction to the patient's age, height and muscle mass. Sodium 140 135 - 145 mmol/L CERNER JARETH NIUM [...] estions. Chloride 103 98 - 107 mmol/L CERNER MILLENN IUM CO2 29 22 - 31 mmol/L CERNER MILLENNI UM Anion Gap 8 5 - 15 mmol/L CERNER MILLENNIU M Calcium 7.7 (L) 8.5 - 10.5 mg/dL CERNER JARETH [...] the following links into your internet browser. [email or web address] [email or web address]/DHnkf Specimen Anatomical Collection Method Collection Time Receive d Time (Source) Location / / Volume Laterality Blood specimen 01/25/2015 4:55 AM 015 5:14 (specimen) EDT AM EDT Resulting Agency Comment Spec In Lab Linden Pacheco MD CHEMISTRY ORDERABLES Performing Organization Address City/State/ZIP [place] [address] CERAncancoIUM Prepare thawed plasma (01/24/2015 3:20 PM EDT) athologist Signature Dispensed? Yes CERNER MILLENNIUM Specimen Anatomical Collection Method Collection Time Receive d Time (Source) Location / / Volume Laterality Blood specimen 01/24/2015 3:20 PM 015 3:17 (specimen) EDT PM EDT Resulting Agency Comment Spec In Lab Linden Pacheco MD BLOOD BANK ORDERABLES Performing Organization Address City/[facility]/[place] [address] CERNER MILLENNIUM (ABNORMAL) Hemogram (01/24/2015 3:16 PM EDT) P athologist Signature WBC 9.3 4.0 - 10.0 CERNER x10(3)/mcL MILLENNIUM RBC 3.57 (L) 3.93 - CERNER 5.22 MILLENNIUM x10(6)/mcL Hemoglobin 10.0 (L) 11.2 - CERNER 15.7 gm/dL MILLENNIUM Hematocrit 29.9 (L) 34.0 - CERNER 45.0 % MILLENNIUM MCV 83.8 79.0 - CERNER 94.0 fL MILLENNIUM MCH 28.0 26.6 - CERNER 32.2 pg MILLENNIUM MCHC 33.4 32.0 - CERNER 36.5 gm/dL MILLENNIUM Platelets 419 (H) 145 - 370 CERNER x10(3)/mcL MILLENNIUM RDWSD 41.7 35.0 - CERNER 46.0 fL MILLENNIUM RDWCV 13.7 10.9 - CERNER 14.4 % MILLENNIUM MPV 8.9 (L) 9.0 - 12.0 CERNER fL MILLENNIUM Specimen Anatomical Collection Method Collection Time Receive d Time (Source) Location / / Volume Laterality Blood specimen 01/24/2015 3:16 PM 015 3:26 (specimen) EDT PM EDT Resulting Agency Comment Spec In Lab Linden Pacheco MD HEMATOLOGY ORDERABLES Performing Organization Address City/[facility]/[place] [address] [facility] MILLENNIUM Urine Hold (01/24/2015 2:30 PM EDT) P athologist Signature Urine Hold Sample in [facility] lab. MILLENNIUM Specimen Anatomical Collection Method Collection Time Receive d Time (Source) Location / / Volume Laterality Urine specimen Urine / Unknown 01/24/2015 2:30 PM 01/12 2:40 (specimen) EDT PM EDT Linden Pacheco MD URINE ORDERABLES Performing Organization Address City/State/ZIP Code [place] [address] BECKIE FLORES Urine culture Urine (01/24/2015 2:30 PM EDT) [facility] gist Method Time Signature Urine Culture [facility] ? Patient Name: LISANDRO, FRANCIE Gonzales ? Ordered By: LINDEN PACHECO ? MR#: [id number] ?LOC: ??[facility] ? /Sex: ??1960 (54 years), ? Female ? PROCEDURE: Urine Culture ?SOURCE: U CC ? COLLECTED: 01/24/2015 14:30 ? STARTED: 01/24/2015 15:01 ? FINAL REPORT ? Final Report ? Verified:01/25/2015 15:02 ? 1,000-9,000 cfu/ml Gram Negative Rods ? 1,000-9,000 cfu/ml Gram Positive organisms , probable contaminant ? Specimen (Source) Anatomical Collection Method Collection Time Re ceived Time Location / / Volume Laterality Urine specimen 01/24/2015 2:30 01/24/2015 3:01 obtained by clean PM EDT PM EDT catch procedure (specimen) Resulting Agency Comment Spec In Lab Linden Pacheco MD MICROBIOLOGY - GENERAL ORDER RINA Performing Organization Address City/State/ZIP [place] [address] BECK[address] [employer] CT chest WO contrast (01/24/2015 1:10 PM EDT) Anatomical Region Laterality Modality Chest Computed Tomography Specimen (Source) Anatomical Collection Method Collection Time Re ceived Time Location / / Volume Laterality 01/24/2015 1:10 PM EDT Impressions 01/24/2015 1:55 PM EDT IMPRESSION: 1. ??Significant interval decrease in si ze of pericardial effusion as above. 2. ??Interval increase in now large left sided pleural effusion with worsening adjacent compressive lingular and left l ower lobe atelectasis. There appears to be some heterogeneity of the left pleura l fluid, raising possibility of blood/blood clots; vascular integrity ca nnot be assessed on this unenhanced exam. 3. ??Interval slight increase in size of small right pleural effusion. 4. ??Otherwise no significant interval c hange. Narrative 01/24/2015 1:55 PM EDT EXAMINATION: CT Chest Without IV Contrast CLINICAL HISTORY: a/w tamponade 2/2 bloo dy effusion (on warfarin for anti-phospholipid Ig synd.) tapped 01/22, drain out 01/23. ??now having O2 demand w/ new lg L-sided pleural effusion on CX R. ??c/f hemothorax TECHNIQUE: Helical axial CT images the c hest obtained without the administration of intravenous contrast. Coronal and sag ittal reformatted images were also reconstructed. COMPARISON: PA and lateral radiographs t he chest from earlier same day, 01/24/2015; unenhanced chest CT, 5. FINDINGS: Lack of intravenous contrast minutes liliana ws diagnostic sensitivity. In comparison to the prior chest CT of 01/22/2015, ther e has been significant interval decrease in size of the pericardial effusion, ove rall likely small amount of residual pericardial fluid seen, noting evaluatio n of the pericardium overlying the left ventricle is limited by adjacent left lo wer lobe compressive atelectasis and lack of intravenous contrast. There is o verall mild to moderate cardiomegaly. There has been interval significant incr ease in size of the now large left-sided pleural effusion with adjacent moderate airless left lung in the left lower lobe and lingula likely representing compress danika atelectasis. Overall attenuation of the left pleural fluid measures water at tenuation, however, there do appear to be areas of slightly increased attenuati on which may represent areas of blood/blood clots. Vascular integrity ca nnot be assessed on this noncontrast exam. ??There has been interval increase in size of the small right pleural effusion with mild adjacent compressive atelectasis. Overall attenuation the right pleural fluid is water attenuation . No pneumothorax is identified.1 Persistent linear and bandlike opacities in the left upper likely representing subsegmental atelectasis and mild atelec tasis in the right middle lobe medially. 3 mm noncalcified right upper lobe pulmo nary nodule (series 3, image 24) and small right upper lobe bleb/air cyst are unchanged, stable dating back to at least 11/15/2010 CT. Central airways appea r patent. Stable mild dilatation of the ascending thoracic aorta, measuring up to 3.6 cm in diameter. No significant interval nishi nge in mediastinal lymphadenopathy. No pathologically enlarged axillary lymph n odes, bilaterally. Evaluation of the jany is significantly limited by lack of intravenous contrast and adjacent left lung compressive atelectasis. The visualized unenhanced upper abdomen is unremarkable. No interval osseous findings. Procedure Note Chelsy Wilson MD - 01/24/2015Formatt ing of this note might be different from the original. EXAMINATION: CT Chest Without IV Contras t CLINICAL HISTORY: a/w tamponade 2/2 bloo dy effusion (on warfarin for anti-phospholipid Ig synd.) tapped 01/22, drain out 01/23. now having O2 demand w/ new lg L-sided pleural effusion on CX R. c/f hemothorax TECHNIQUE: Helical axial CT images the c hest obtained without the administration of intravenous contrast. Coronal and sag ittal reformatted images were also reconstructed. COMPARISON: PA and lateral radiographs t he chest from earlier same day, 01/24/2015; unenhanced chest CT, 5. FINDINGS: Lack of intravenous contrast minutes liliana ws diagnostic sensitivity. In comparison to the prior chest CT of 01/22/2015, ther e has been significant interval decrease in size of the pericardial effusion, ove rall likely small amount of residual pericardial fluid seen, noting evaluatio n of the pericardium overlying the left ventricle is limited by adjacent left lo wer lobe compressive atelectasis and lack of intravenous contrast. There is o verall mild to moderate cardiomegaly. There has been interval significant incr ease in size of the now large left-sided pleural effusion with adjacent moderate airless left lung in the left lower lobe and lingula likely representing compress danika atelectasis. Overall attenuation of the left pleural fluid measures water at tenuation, however, there do appear to be areas of slightly increased attenuati on which may represent areas of blood/blood clots. Vascular integrity ca nnot be assessed on this noncontrast exam. There has been interval increase i n size of the small right pleural effusion with mild adjacent compressive atelectasis. Overall attenuation the right pleural fluid is water attenuation . No pneumothorax is identified.1 Persistent linear and bandlike opacities in the left upper likely representing subsegmental atelectasis and mild atelec tasis in the right middle lobe medially. 3 mm noncalcified right upper lobe pulmo nary nodule (series 3, image 24) and small right upper lobe bleb/air cyst are unchanged, stable dating back to at least 11/15/2010 CT. Central airways appea r patent. Stable mild dilatation of the ascending thoracic aorta, measuring up to 3.6 cm in diameter. No significant interval nishi nge in mediastinal lymphadenopathy. No pathologically enlarged axillary lymph n odes, bilaterally. Evaluation of the jany is significantly limited by lack of intravenous contrast and adjacent left lung compressive atelectasis. The visualized unenhanced upper abdomen is unremarkable. No interval osseous findings. IMPRESSION IMPRESSION: 1. Significant interval decrease in size of pericardial effusion as above. 2. Interval increase in now large left s ided pleural effusion with worsening adjacent compressive lingular and left l ower lobe atelectasis. There appears to be some heterogeneity of the left pleura l fluid, raising possibility of blood/blood clots; vascular integrity ca nnot be assessed on this unenhanced exam. 3. Interval slight increase in size of s mall right pleural effusion. 4. Otherwise no significant interval nishi nge. Linden Pacheco MD IMG CT ORDERABLES Urine Hold (01/24/2015 12:14 PM EDT) P athologist Signature Urine Hold Sample in [facility] lab. [facility] Specimen Anatomical Collection Method Collection Time Receive d Time (Source) Location / / Volume Laterality Urine specimen Urine / Unknown 01/24/2015 12:14 2014 (specimen) PM EDT 12:26 PM EDT Linden Pacheco MD URINE ORDERABLES Performing Organization Address City/State/ZIP Code Phon e Number [place] [phone] CERNER MILLENNIUM (ABNORMAL) Urinalysis with microscopic (01/24/2015 12:14 PM EDT) [facility] gist Method Time Signature Glucose UA Negative Negative CERNER mg/dL MILLENNIUM Protein UA 30 (A) Negative CERNER mg/dL MILLENNIUM Bilirubin UA Negative Negative CERNER mg/dL MILLENNIUM Comment: Clinical correlation required for positi ve Urine Bilirubin results as false positive may occur with some drugs and d rug related products. If a false positive is suspected a serum total bili hung should be considered if clinically indicated. Urobilinogen UA >=4.0 (A) Normal mg/dL [facility] MILL ENNIUM pH UA 7.0 5.0 - 8.0 [facility] Blood UA Negative Negative mg/dL [facility] MILLDIAMOND [facility]IL[facility]ENTERI UM Ketones UA 20 (A) Negative mg/dL [facility] MILLENN IUM Nitrite UA Negative Negative [facility] MILLENNIUM Leukocytes UA Negative Negative mcL [facility] Appearance UA Hazy (A) Clear [facility] MILLENNIU M Spec [place] UA 1.026 1.002 - 1.030 [facility] MIL LENNIUM Color UA Yellow Yellow [facility] MILLENNIUM RBC UA 3 0 - 4 /HPF [facility] MILLENNIUM WBC UA 4 0 - 5 /HPF [facility] MILLENNIUM Bacteria UA Rare (A) None /HPF [facility] MILLENNIUM Squam Epith UA 9 (H) <=4 /HPF [facility] MILLDIAMOND CHILDREN'[facility]ENTERI UM Specimen Anatomical Collection Method Collection Time Receive d Time (Source) Location / / Volume Laterality Urine specimen 01/24/2015 12:14 5 (specimen) PM EDT 12:26 PM EDT Resulting Agency Comment Spec In Lab Linden Pacheco MD URINE ORDERABLES Performing Organization Address City/State/ZIP Code Phon e Number [place] [phone]OS[address]ITAL [address] BECKIE ReversingLabsIUM XR chest routine PA & lateral (01/24/2015 9:18 AM EDT) Anatomical Region Laterality Modality Chest N/A Radiographic Imaging Specimen (Source) Anatomical Collection Method Collection Time Re ceived Time Location / / Volume Laterality 01/24/2015 9:18 AM EDT Impressions 01/24/2015 10:46 AM EDT IMPRESSION: Large left-sided pleural effusion withou t change. Small right-sided pleural effusion. Narrative 01/24/2015 10:46 AM EDT EXAMINATION: CHEST ROUTINE 2 VIEWS CLINICAL HISTORY: s/p tamponade from blo bridgette effusion (INR 9, on warf for anti-phospholipid), drain pulled 01/23. ? ?cont'd O2 need. ??reduced/[id number] on most of L lung TECHNIQUE: PA and lateral chest COMPARISON: January 23, 2015 FINDINGS: There is a large left-sided pleural effu jennifer and a small right-sided pleural effusion. The left-sided effusion has no t changed significantly since the prior examination. Aeration of the left upper lung appears improved although this may be due to changes in patient positioning between the two studies (present study is standing and prior study was sent upr ight). The right lung is clear. Procedure Note Alexey Camp MD - 01/24/2015 EXAMINATION: CHEST ROUTINE 2 VIEWS CLINICAL HISTORY: s/p tamponade from blo bridgette effusion (INR 9, on warf for anti-phospholipid), drain pulled 01/23. c ont'd O2 need. reduced/[id number] on most of L lung TECHNIQUE: PA and lateral chest COMPARISON: January 23, 2015 FINDINGS: There is a large left-sided pleural effu jnenifer and a small right-sided pleural effusion. The left-sided effusion has no t changed significantly since the prior examination. Aeration of the left upper lung appears improved although this may be due to changes in patient positioning between the two studies (present study is standing and prior study was sent upr ight). The right lung is clear. IMPRESSION IMPRESSION: Large left-sided pleural effusion withou t change. Small right-sided pleural effusion. Linden Pacheco MD IMG DX ORDERABLES (ABNORMAL) Differential, Automated (01/24/2015 5:14 AM EDT) [facility] gist Method Time Signature Neutrophils % 79.4 % CERNER MILLENNIUM Neutr Abs (ANC) 7.86 (H) 1.50 - CERNER 6.30 MILLENNIUM x10(3)/mc L Lymphocytes % 9.0 % CERNER MILLENNIUM Lymphocytes Abs 0.9 (L) 1.0 - 3.6 CERNER x10(3)/mc MILLENNIUM L Monocytes % 9.9 % CERNER MILLENNIUM Monocyte Abs 1.0 0.2 - 1.0 CERNER x10(3)/mc MILLENNIUM L [...] Location / / Volume Laterality Blood specimen 01/24/2015 5:14 AM 015 5:37 (specimen) EDT AM EDT Resulting Agency Comment Spec In Lab Linden Pacheco MD HEMATOLOGY ORDERABLES Performing Organization Address City/State/ZIP [place] [address] CERNER MILLENNIUM (ABNORMAL) Hemogram (01/24/2015 5:14 AM EDT) athologist Signature WBC 9.9 4.0 - 10.0 CERNER x10(3)/mcL MILLENNIUM RBC 3.34 (L) 3.93 - CERNER 5.22 MILLENNIUM x10(6)/mcL Hemoglobin 9.3 (L) 11.2 - CERNER 15.7 gm/dL MILLENNIUM Hematocrit 27.9 (L) 34.0 - CERNER 45.0 % MILLENNIUM MCV 83.5 79.0 - CERNER 94.0 fL MILLENNIUM MCH 27.8 26.6 - CERNER 32.2 pg MILLENNIUM MCHC 33.3 32.0 - CERNER 36.5 gm/dL MILLENNIUM Platelets 390 (H) 145 - 370 CERNER x10(3)/mcL MILLENNIUM RDWSD 41.8 35.0 - CERNER 46.0 fL MILLENNIUM RDWCV 13.7 10.9 - CERNER 14.4 % MILLENNIUM MPV 9.5 9.0 - 12.0 CERNER fL MILLENNIUM Specimen Anatomical Collection Method Collection Time Receive d Time (Source) Location / / Volume Laterality Blood specimen 01/24/2015 5:14 AM 015 5:37 (specimen) EDT AM EDT Resulting Agency Comment Spec In Lab Linden Pacheco MD HEMATOLOGY ORDERABLES Performing Organization Address City/State/ZIP Code Phon e Number [address] [facility] SUSYENNIUM (ABNORMAL) APTT (01/24/2015 5:14 AM EDT) P athologist Signature PTT 42 (H) 25 - 35 sec [facility] Comment: Recommended therapeutic PTT range for fu ll dose unfractionated heparin is 80-114 seconds. Specimen Anatomical Collection Method Collection Time Receive d Time (Source) Location / / Volume Laterality Blood specimen 01/24/2015 5:14 AM 015 5:37 (specimen) EDT AM EDT Resulting Agency Comment Spec In Lab Linden Pacheco MD HEMATOLOGY ORDERABLES Performing Organization Address City/State/[place] [address] [facility] MILLENNIUM (ABNORMAL) Prothrombin Time (01/24/2015 5:14 AM EDT) P athologist Signature PT 26.1 (H) 12.5 - 15.5 CERNER sec MILLENNIUM Comment: Transfusion Committee Guidelines: INR less than 2.0, PTT less than OR equal to 43.5 seconds, or Fibrinogen greater t fernandes or equal to 100 mg/dl indicate adequate procoagulant activity for hemos tasis in patients without underlying bleeding disorders. INR 2.2 (H) 0.9 - 1.1 CERNER MILLENNIUM Specimen Anatomical Collection Method Collection Time Receive d Time (Source) Location / / Volume Laterality Blood specimen 01/24/2015 5:14 AM 015 5:37 (specimen) EDT AM EDT Resulting Agency Comment Spec In Lab Linden Pacheco MD HEMATOLOGY ORDERABLES Performing Organization Address [facility] [place] [address] CERNER MILLENNIUM (ABNORMAL) Hepatic Function Panel (01/24/2015 5:14 AM EDT) P athologist Signature Total Protein 5.8 (L) 6.1 - 8.0 CERNER gm/dL MILLENNIUM Albumin 3.2 3.2 - 5.2 CERNER gm/dL MILLENNIUM AST 16 0 - 30 CERNER unit/L MILLENNIUM ALT 26 0 - 30 CERNER unit/L MILLENNIUM Alk Phos 126 (H) 40 - 104 CERNER unit/L MILLENNIUM Total 0.4 0.2 - 1.3 CERNER Bilirubin mg/dL MILLENNIUM Bili, Direct 0.2 0.0 - 0.3 CERNER mg/dL MILLENNIUM Specimen Anatomical Collection Method Collection Time Receive d Time (Source) Location / / Volume Laterality Blood specimen 01/24/2015 5:14 AM 015 5:37 (specimen) EDT AM EDT Resulting Agency Comment Spec In Lab Linden Pacheco MD CHEMISTRY ORDERABLES Performing Organization Address [facility] [place] [address] CERNER MILLENNIUM (ABNORMAL) Basic Metabolic Panel (non-fasting) (01/24/2015 5:14 AM EDT) athologist Signature Glucose Lvl 108 65 - 199 CERNER mg/dL MILLENNIUM Comment: Diabetes: >=200 mg/dL plus symp toms BUN 18 8 - 18 mg/dL CERNER MILLENNIUM Creatinine 0.64 (L) 0.70 - 1.20 mg/dL CERNER MILL ENNIUM Comment: Please note that the pediatric reference intervals supplied above were not validated at [facility] Results from pediatri c patients should be interpreted in conjunction to the patient's age, height and muscle mass. Sodium 139 135 - 145 mmol/L CERNER JARETH NIUM Potassium 3.5 3.5 - 5.0 mmol/L CERNER JARETH NIUM [...] 31 mmol/L CERNER MILLENNI UM Anion Gap 12 5 - 15 mmol/L CERNER MILLENNIU M Calcium 7.7 (L) 8.5 - 10.5 mg/dL CERNER JARETH [...] the following links into your internet browser. [email or web address] [email or web address]/DHnkf Specimen Anatomical Collection Method Collection Time Receive d Time (Source) Location / / Volume Laterality Blood specimen 01/24/2015 5:14 AM 015 5:37 (specimen) EDT AM EDT Resulting Agency Comment Spec In Lab Linden Pacheco MD CHEMISTRY ORDERABLES Performing Organization Address City/State/ZIP Code [place] [address] [facility] JAINLiteScape TechnologiesEC[facility] US abdomen limited (01/23/2015 4:24 PM EDT) Anatomical Region Laterality Modality Abdomen Ultrasound Specimen (Source) Anatomical Collection Method Collection Time Re ceived Time Location / / Volume Laterality 01/23/2015 4:24 PM EDT Narrative 01/23/2015 4:34 PM EDT Abdominal ?(Signed Final 01/23/2015 04:34 ? pm) Patient Info ID #: ? [id number] ?: ??[birth year] (54 yrs) Name: ? FRANCIE YUSUF ?Visit Date: 01/23/2015 04:19 pm Performed By Performed By: ?Bonny Ramsay RDMS Attending: ? Pia RAMOS, Danny Whitehead Referred By: ? GALO HAMMER MD Service(s) Provided ??UABDLIM - Abdominal Limited Survey Si ngle ? [id number] ??Organ or Quadrant - [id number] Indications ??hepatomegaly. ??occurs in setting war farin for anti- ??phospholipid antibody syndrome. ??a/w tamponade ??from bloody pericardial effusion on w arfarin (INR ??was 9) ----- Liver ----- Right Lobe Length: ?? 20.22 ??cm Echogenicity/Echotexture: ?? Normal Comment: ?Hepatomegaly Gallbladder Cholelithiasis: ?No stones visua lized Wall Thickness: ?2.6 mm Focal Tenderness: ?Negative sonogra phic Yadav's sign Biliary Tract Intrahepatic Ducts: ?? Normal Extrahepatic Ducts: ?? Normal Common Duct Size: ? 5.2 ? mm -------- Pancreas -------- Head: ? Normal Tail: ? Poorly visua lized due to overlying bowel Body: ? Normal Right Kidney Size (cm) ?L: ??10.88 Cortical Thickness: ?Normal Cortical Echogenicity: ?? Normal Hydronephrosis: ?No sonogr aphic evidence ----- Aorta ----- Comment: ?Normal in caliber where v isualized. --- IVC --- Normal in caliber where visualized. Fluid Collections Right pleural effusion. Impression Ultrasound - Abdomen Limited - Summary The liver is large but normal in echoge nicity. There are no gallstones seen and no kylah iary ductal dilatation. Right pleural effusion. I ??viewed the images and agree with abel carson interpretation. ? Danny Palacio MD Electronically Signed Final Report ?? 04:34 pm Procedure Note Danny Palacio MD - 01/23/2015Format ting of this note might be different from the original. Abdominal (Signed Final 01/23/2015 04:3 4 pm) Patient Info ID #: [id number] : [birth year] (54 y rs) Name: FRANCIE Gonzales YUSUF Visit Date: 015 04:19 pm Performed By Performed By: Bonny Ramsay RDMS Attending: Danny Palacio MD Referred By: GALO HAMMER MD Service(s) Provided UABDLIM - Abdominal [place] [id number] Organ or Quadrant - [id number] Indications hepatomegaly. 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 a/w petersen ponade from bloody pericardial effusion on (INR was 9) ----- Liver ----- Right Lobe Length: 20.22 cm Echogenicity/Echotexture: Normal Comment: Hepatomegaly Gallbladder Cholelithiasis: No stones visualized Wall Thickness: 2.6 mm Focal Tenderness: Negative sonographic Yadav's sign Biliary Tract Intrahepatic Ducts: Normal Extrahepatic Ducts: Normal Common Duct Size: 5.2 mm -------- Pancreas -------- Head: Normal Tail: Poorly visualized due to overlyin g bowel Body: Normal Right Kidney Size (cm) L: 10.88 Cortical Thickness: Normal Cortical Echogenicity: Normal Hydronephrosis: No sonographic evidence ----- Aorta ----- Comment: Normal in caliber where visual ized. --- IVC --- Normal in caliber where visualized. Fluid Collections Right pleural effusion. Impression Ultrasound - Abdomen Limited - Summary The liver is large but normal in echoge nicity. There are no gallstones seen and no kylah iary ductal dilatation. Right pleural effusion. I viewed the images and agree with the above interpretation. Danyn Palacio MD Electronically Signed Final Report 01/23 04:34 pm Linden Pacheco MD IMG US GEN ORDERABLES Echocardiogram Transthoracic(Leb) (01/23/2015 7:48 AM EDT) Anatomical Region Laterality Modality Other Specimen (Source) Anatomical Location Collection Method / Collectio n Time Received Time / Laterality Volume 01/23/2015 Narrative 01/23/2015 8:28 AM EDT Procedure: ?Transthoracic Echocardiogram Patient: ?YUSUF FRANCIE N ? (Age): 1960(54y) Med Rec#: ? [id number] ?Sex: ?F ? [place] Loc[place] ? [facility] ?Ht / Wt: ??167(cm)/93(kg) Pt. Loc: ?[facility] ? BSA: ?2.02 Study Date: ?? 01/23/2015 ?Pt. Type: Inpatient Tape: ? Referring: BREA JACKMAN D Reading: Jesse Spears ([id number]) Justice Of The Peace: Ke Jim MS, CS Diagnosis: *Pericardial effusion (423.9) CPT Codes: *Echo LTD (55471) BP: ? /107 HR: ? 74 SUMMARY: 1. Limited follow up s/p pericardiocente sis. 2. There is a small-moderate sized poste rior pericardial effusion. FINDINGS: ? Left Ventricle ?There is normal global left ventri cular systolic function. ??Ejection fraction is estimated to be 70%. ?There are no left ventricular segm ental wall motion abnormalities. Pericardium ?There is a small posterior pericar dial effusion. ?A pericardial fat pad is visualize d. ?Bilateral pleural effusions are pr esent. Venous ?The inferior vena cava appears nor mal in size. ?There is a greater than 50% respir atory change in the inferior vena cava dimension. Misc ?Two-dimensional echo and limited s pectral Doppler performed. Wall Motion: Segment Name ?Rest ? Base-Anteroseptal ?? Normal ? Base-Anterior ? Normal ? Base-Anterolateral ??Normal ? Base-Posterolateral Normal ? Base-Inferior ? Normal ? Base-Inferoseptal ?? Normal ? Mid-Anteroseptal ?Normal ? Mid-Anterior ?Normal ? Mid-Anterolateral ?? Normal ? Mid-Posterolateral ??Normal ? Mid-Inferior ?Normal ? Mid-Inferoseptal ?Normal ? [place]-Septal ? Normal ? [place]-Anterior ? Normal ? [place]-Lateral ?Normal ? [place]-Inferior ? Normal ? [place]-Tip ?Normal ? This report has been electronically sign ed by: _ Jesse Spears M.D. ? 01/23/2015 08:28:02 Images reviewed and interpretation bryn larkin [facility] Cardiac Ultrasound Laboratory Procedure Note Jesse Spears MD - 01/23/2015Format ting of this note might be different from the original. Procedure: Transthoracic Echocardiogram Patient: LISANDRO Gonzales (Age): [birth year](54y) Med Rec#: [id number] Sex: F [place] [facility] Ht / Wt: 167(cm)/93(kg) Pt. Loc: [facility] BSA: 2.02 Study Date: 01/23/2015 Pt. Type: Inpatie nt Tape: Referring: BREA JACKMAN D Reading: Jesse Spears ([id number]) Justice Of The Peace: Ke Jim MS, RDCS Diagnosis: *Pericardial effusion (423.9) CPT Codes: *Echo LTD (24340) BP: /107 HR: 74 SUMMARY: 1. Limited follow up s/p pericardiocente sis. 2. There is a small-moderate sized poste rior pericardial effusion. FINDINGS: Left Ventricle There is normal global left ventricular systolic function. Ejection fraction is estimated to be 70%. There are no left ventricular segmental wall motion abnormalities. Pericardium There is a small posterior pericardial effusion. A pericardial fat pad is visualized. Bilateral pleural effusions are present . Venous The inferior vena cava appears normal i n size. There is a greater than 50% respiratory change in the inferior vena cava dimension. Misc Two-dimensional echo and limited spectr al Doppler performed. Wall Motion: Segment Name Rest Base-Anteroseptal Normal Base-Anterior Normal Base-Anterolateral Normal Base-Posterolateral Normal Base-Inferior Normal Base-Inferoseptal Normal Mid-Anteroseptal Normal Mid-Anterior Normal Mid-Anterolateral Normal Mid-Posterolateral Normal Mid-Inferior Normal Mid-Inferoseptal Normal [place]-Septal Normal [place]-Anterior Normal [place]-Lateral Normal [place]-Inferior Normal [place]-Tip Normal This report has been electronically sign ed by: _ Jesse Spears M.D. 01/23/2015 08:28: 02 Images reviewed and interpretation verif ied [facility] Cardiac Ultrasound Laboratory Jarett Walker MD ECHO ORDERABLES XR chest PA or AP- 1 view (01/23/2015 4:45 AM EDT) Anatomical Region Laterality Modality Chest N/A Radiographic Imaging Specimen (Source) Anatomical Collection Method Collection Time Re ceived Time Location / / Volume Laterality 01/23/2015 4:45 AM EDT Narrative 01/23/2015 5:42 AM EDT EXAMINATION: CHEST ONE VIEW/XPORT CLINICAL HISTORY: s/p pericardiocentesis w/ pleuritic pain TECHNIQUE: Single portable frontal chest radiograph. COMPARISON: Chest CT and radiographs Jan. COMMENTS: Portable technique, supine pos itioning, patient rotation, submaximal inspiration, underpenetration, and monit or leads overlying the chest wall render suboptimal assessment; within these conf niurka: FINDINGS/IMPRESSION: Monitor leads overlie the chest wall. Re demonstration of mid to lower LEFT hemithorax opacification which, and minerva oboration with the CT chest January 22, 2015, may reflect any combination of ple ural effusion, pericardial effusion, consolidation. There is interval hazy ap pearance of the LEFT upper lung, possibly reflecting increasing pleural e ffusion. Small RIGHT pleural effusion with adjacent consolidation without othe r RIGHT confluent airspace opacity seen. Assessment for potential pneumothorax pr ecluded due to semierect positioning. Procedure Note Nabil Diaz MD - 01/23/2015 EXAMINATION: CHEST ONE VIEW/XPORT CLINICAL HISTORY: s/p pericardiocentesis w/ pleuritic pain TECHNIQUE: Single portable frontal chest radiograph. COMPARISON: Chest CT and radiographs Jan. COMMENTS: Portable technique, supine pos itioning, patient rotation, submaximal inspiration, underpenetration, and monit or leads overlying the chest wall render suboptimal assessment; within these conf niurka: FINDINGS/IMPRESSION: Monitor leads overlie the chest wall. Re demonstration of mid to lower LEFT hemithorax opacification which, and minerva oboration with the CT chest January 22, 2015, may reflect any combination of ple ural effusion, pericardial effusion, consolidation. There is interval hazy ap pearance of the LEFT upper lung, possibly reflecting increasing pleural e ffusion. Small RIGHT pleural effusion with adjacent consolidation without othe r RIGHT confluent airspace opacity seen. Assessment for potential pneumothorax pr ecluded due to semierect positioning. Yury Colon MD IMG DX ORDERABLES EKG 12 Lead (01/23/2015 4:25 AM EDT) Component Value Ref Range Test Analysis Performed Pathologis t Method Time At Signature Ventricular rate 75 BPM MUSE SYSTEM Atrial Rate 75 BPM MUSE SYSTEM P-R Interval 120 ms MUSE SYSTEM QRS Duration 82 ms MUSE SYSTEM Q-T Interval 432 ms MUSE SYSTEM QTC Calculated 482 ms MUSE SYSTEM (Bezet) Calculated P [place] 26 degrees MUSE SYSTEM Calculated R [place] -5 degrees MUSE SYSTEM Calculated T [place] -21 degrees MUSE SYSTEM INTERPRETATION Normal sinus rhythm with sinus arrhythmia MUSE SYSTEM Possible Inferior infarct (cited on or before 22-JAN-2015) Prolonged QTc When compared with ECG of 22-JAN-2015 19:53, Nonspecific T wave abnormality no longer evident in Lateral leads Confirmed by MD GABY, AVA ([id number]) on 01/23/2015 1:32:2 5 PM Specimen Anatomical Collection Method Collection Time Receive d Time (Source) Location / / Volume Laterality 01/23/2015 4:25 AM 5 1:32 EDT PM EDT Yury Colon MD ECG ORDERABLES Performing Organization Address City/State/ZIP Code Phon e Number MUSE SYSTEM Nucleated Red Blood Cells (01/23/2015 3:25 AM EDT) P athologist Signature nRBC % Auto 0.0 % CERNER MILLENNIUM nRBC Abs Auto 0.000 0.000 - CERNER 0.012 MILLENNIUM x10(3)/mcL Specimen Anatomical Collection Method Collection Time Receive d Time (Source) Location / / Volume Laterality Blood specimen 01/23/2015 3:25 AM 015 3:31 (specimen) EDT AM EDT Resulting Agency Comment Spec In Lab Yury Colon MD HEMATOLOGY ORDERABLES Performing Organization Address City/[facility]/[place] [address] CERNER MILLENNIUM Scan, Peripheral Blood (01/23/2015 3:25 AM EDT) [facility] gist Method Time Signature Plat Estimate Increased CERNER MILLENNIUM RBC Morphology Normal CERNER MILLENNIUM Giant Less than 1 /HPF CERNER Platelets MILLENNIUM Specimen Anatomical Collection Method Collection Time Receive d Time (Source) Location / / Volume Laterality Blood specimen 01/23/2015 3:25 AM 015 3:31 (specimen) EDT AM EDT Resulting Agency Comment Spec In Lab Yury Colon MD HEMATOLOGY ORDERABLES Performing Organization Address City/[facility]/[place] [address] CERNER MILLENNIUM (ABNORMAL) Differential, Automated (01/23/2015 3:25 AM EDT) [facility] gist Method Time Signature Neutrophils % 79.1 % CERNER MILLENNIUM Neutr Abs (ANC) 7.88 (H) 1.50 - CERNER 6.30 MILLENNIUM x10(3)/mc L Lymphocytes % 15.2 % CERNER MILLENNIUM Lymphocytes Abs 1.5 1.0 - 3.6 CERNER x10(3)/mc MILLENNIUM L Monocytes % 5.0 % CERNER MILLENNIUM Monocyte Abs 0.5 0.2 - 1.0 CERNER x10(3)/mc MILLENNIUM L Eosinophils % 0.2 % CERNER MILLENNIUM Eosinophils Abs 0.0 0.0 [...] Location / / Volume Laterality Blood specimen 01/23/2015 3:25 AM 015 3:31 (specimen) EDT AM EDT Resulting Agency Comment Spec In Lab Yury Colon MD HEMATOLOGY ORDERABLES Performing Organization Address City/State/ZIP [place] [address] CERNER MILLENNIUM (ABNORMAL) Hemogram (01/23/2015 3:25 AM EDT) P athologist Signature WBC 10.0 4.0 - 10.0 CERNER x10(3)/mcL MILLENNIUM RBC 3.44 (L) 3.93 - CERNER 5.22 MILLENNIUM x10(6)/mcL Hemoglobin 9.5 (L) 11.2 - CERNER 15.7 gm/dL MILLENNIUM Hematocrit 28.3 (L) 34.0 - CERNER 45.0 % MILLENNIUM MCV 82.3 79.0 - CERNER 94.0 fL ENNIUM MCH 27.6 26.6 - CERNER 32.2 pg ENNIUM MCHC 33.6 32.0 - CERNER 36.5 gm/dL ENNIUM Platelets 403 (H) 145 - 370 CERNER x10(3)/mcL ENNIUM RDWSD 41.3 35.0 - CERNER 46.0 fL ENNIUM RDWCV 13.5 10.9 - CERNER 14.4 % ENNIUM MPV 9.6 9.0 - 12.0 CERNER fL MILLENNIUM Specimen Anatomical Collection Method Collection Time Receive d Time (Source) Location / / Volume Laterality Blood specimen 01/23/2015 3:25 AM 015 3:31 (specimen) EDT AM EDT Resulting Agency Comment Spec In Lab Yury Colon MD HEMATOLOGY ORDERABLES Performing Organization Address City/[facility]/ZIP Code Phon e Number [address] [facility] M[facility]UM (ABNORMAL) APTT (01/23/2015 3:25 AM EDT) P athologist Signature PTT 45 (H) 25 - 35 sec CERNER MILLENNIUM Comment: Recommended therapeutic PTT range for fu ll dose unfractionated heparin is 80-114 seconds. Specimen Anatomical Collection Method Collection Time Receive d Time (Source) Location / / Volume Laterality Blood specimen 01/23/2015 3:25 AM 015 3:31 (specimen) EDT AM EDT Resulting Agency Comment Spec In Lab Linden Pacheco MD HEMATOLOGY ORDERABLES Performing Organization Address City/[facility]/ZIP Code Phon e Number [address] [facility] MILLENNIUM (ABNORMAL) Prothrombin Time (01/23/2015 3:25 AM EDT) P athologist Signature PT 28.1 (H) 12.5 - 15.5 CERNER sec MILLENNIUM Comment: Transfusion Committee Guidelines: INR less than 2.0, PTT less than OR equal to 43.5 seconds, or Fibrinogen greater t fernandes or equal to 100 mg/dl indicate adequate procoagulant activity for hemos tasis in patients without underlying bleeding disorders. INR 2.4 (H) 0.9 - 1.1 CERNER MILLENNIUM Specimen Anatomical Collection Method Collection Time Receive d Time (Source) Location / / Volume Laterality Blood specimen 01/23/2015 3:25 AM 015 3:31 (specimen) EDT AM EDT Resulting Agency Comment Spec In Lab Linden Pacheco MD HEMATOLOGY ORDERABLES Performing Organization Address [facility] Phon e Number [address] CERNER MILLENNIUM (ABNORMAL) Hepatic Function Panel (01/23/2015 3:25 AM EDT) athologist Signature Total Protein 6.3 6.1 - 8.0 CERNER gm/dL MILLENNIUM Albumin 3.5 3.2 - 5.2 CERNER gm/dL MILLENNIUM AST 26 0 - 30 CERNER unit/L MILLENNIUM ALT 33 (H) 0 - 30 CERNER unit/L MILLENNIUM Alk Phos 119 (H) 40 - 104 CERNER unit/L MILLENNIUM Total 0.5 0.2 - 1.3 CERNER Bilirubin mg/dL MILLENNIUM Bili, Direct 0.2 0.0 - 0.3 CERNER mg/dL MILLENNIUM Specimen Anatomical Collection Method Collection Time Receive d Time (Source) Location / / Volume Laterality Blood specimen 01/23/2015 3:25 AM 015 3:31 (specimen) EDT AM EDT Resulting Agency Comment Spec In Lab Linden Pacheco MD CHEMISTRY ORDERABLES Performing Organization Address [facility] [place] [address] CERNER MILLENNIUM (ABNORMAL) Basic Metabolic Panel (non-fasting) (01/23/2015 3:25 AM EDT) P athologist Signature Glucose Lvl 117 65 - 199 CERNER mg/dL MILLENNIUM Comment: Diabetes: >=200 mg/dL plus symp toms BUN 21 (H) 8 - 18 mg/dL CERNER MILLENNIUM Creatinine 0.80 0.70 - 1.20 mg/dL CERNER MILL ENNIUM Comment: Please note that the pediatric reference intervals supplied above were not validated at [facility] Results from pediatri c patients should be [...] - 15 mmol/L CERNER MILLENNIU M Calcium 7.9 (L) 8.5 - 10.5 mg/dL CERNER JARETH [...] the following links into your internet browser. [email or web address] [email or web address] Specimen Anatomical Collection Method Collection Time Receive d Time (Source) Location / / Volume Laterality Blood specimen 01/23/2015 3:25 AM 015 3:31 (specimen) EDT AM EDT Resulting Agency Comment Spec In Lab Linden Pacheco MD CHEMISTRY ORDERABLES Performing Organization Address City/State/ZIP [place] [address] CERNER MILLENNIUM (ABNORMAL) TSH (01/23/2015 3:25 AM EDT) athologist Signature TSH 5.17 (H) 0.27 - 4.20 CERNER mcIU/mL MILLENNIUM Specimen Anatomical Collection Method Collection Time Receive d Time (Source) Location / / Volume Laterality Blood specimen 01/23/2015 3:25 AM 015 3:31 (specimen) EDT AM EDT Resulting Agency Comment Spec In Lab uYry Colon MD CHEMISTRY ORDERABLES Performing Organization Address City/[facility]/[place] [address] CERNER MILLENNIUM Potassium (01/22/2015 8:34 PM EDT) athologist Signature Potassium 3.5 3.5 - 5.0 CERNER mmol/L MILLENNIUM Comment: Please note: ??Patients with WBC >100,00 0 may have falsely elevated Potassium levels. ??For accurate Potassium quantif ication in these patients send serum separator tube (gold top) for subsequent determinations. ??Contact the Clinical Chemistry Laboratory if there are any qu estions. Specimen Anatomical Collection Method Collection Time Receive d Time (Source) Location / / Volume Laterality Blood specimen 01/22/2015 8:34 PM 015 8:41 (specimen) EDT PM EDT Resulting Agency Comment Spec In Lab Linden Pacheco MD CHEMISTRY ORDERABLES Performing Organization Address City/[facility]/ZIP Code Phon e Number [address] CERNER MILLENNIUM XR chest PA or AP- 1 view (01/22/2015 8:23 PM EDT) Anatomical Region Laterality Modality Chest N/A Radiographic Imaging Specimen (Source) Anatomical Collection Method Collection Time Re ceived Time Location / / Volume Laterality 01/22/2015 8:23 PM EDT Impressions 01/22/2015 8:39 PM EDT IMPRESSION: No significant interval change in the ra diograph previously obtained at 1610 hours. Status post pericardiocentesis th ere remains opacification of the left hemithorax and cardiac enlargement. Narrative 01/22/2015 8:39 PM EDT EXAMINATION: CHEST ONE VIEW/XPORT CLINICAL HISTORY: 54/F presenting with a large pericardial effusion, s/p pericardiocentesis COMPARISON: Prior chest 01/22/2015 and [facility] CT scan without contrast 01/22/2015. FINDINGS: Portable AP chest radiograph at 2015 zeenat rs. Compared to the earlier film there remains no significant change in the lef t mid to lower hemithorax opacity compared to previous. There remains a la rge likely pericardial and possibly pleural effusion which obscures the left heart border. The heart is grossly enlarged. Right lung remains clear as do es the left upper lung. Procedure Note Qi Godwin MD - 01/22/2015Forma tting of this note might be different from the original. EXAMINATION: CHEST ONE VIEW/XPORT CLINICAL HISTORY: 54/F presenting with a large pericardial effusion, s/p pericardiocentesis COMPARISON: Prior chest 01/22/[address] scan without contrast 01/22/2015. FINDINGS: Portable AP chest radiograph at 2015 zeenat rs. Compared to the earlier film there remains no significant change in the lef t mid to lower hemithorax opacity compared to previous. There remains a la rge likely pericardial and possibly pleural effusion which obscures the left heart border. The heart is grossly enlarged. Right lung remains clear as do es the left upper lung. IMPRESSION IMPRESSION: No significant interval change in the ra diograph previously obtained at 1610 hours. Status post pericardiocentesis th ere remains opacification of the left hemithorax and cardiac enlargement. Jarett Walker MD IMG DX ORDERABLES Transfuse thawed plasma (01/22/2015 8:20 PM EDT) Yury Colon MD NURSING TREATMENT ORDERABLES - BLOOD ADMIN Transfuse thawed plasma (01/22/2015 8:20 PM EDT) Yury Colon MD NURSING TREATMENT ORDERABLES - BLOOD ADMIN Transfuse thawed plasma (01/22/2015 8:08 PM EDT) Yury Colon MD NURSING TREATMENT ORDERABLES - BLOOD ADMIN Transfuse thawed plasma (01/22/2015 8:05 PM EDT) Yury Colon MD NURSING TREATMENT ORDERABLES - BLOOD ADMIN Transfuse thawed plasma (01/22/2015 8:05 PM EDT) Yury Colon MD NURSING TREATMENT ORDERABLES - BLOOD ADMIN EKG 12 Lead (01/22/2015 7:53 PM EDT) Component Value Ref Range Test Analysis Performed Pathologis t Method Time At Signature Ventricular rate 81 BPM MUSE SYSTEM Atrial Rate 81 BPM MUSE SYSTEM P-R Interval 126 ms MUSE SYSTEM QRS Duration 90 ms MUSE SYSTEM Q-T Interval 426 ms MUSE SYSTEM QTC Calculated 494 ms MUSE SYSTEM (Bezet) Calculated P [place] 19 degrees MUSE SYSTEM Calculated R [place] -3 degrees MUSE SYSTEM Calculated T [place] -29 degrees MUSE SYSTEM INTERPRETATION Sinus rhythm with Premature atrial complexes MUSE SYSTEM Low voltage QRS Possible Inferior infarct (cited on or before 22-JAN-2015) Poor R-wave progression V1-3 Abnormal ECG When compared with ECG of 22-JAN-2015 14:09, Borderline criteria for Anterolateral infarct are now Presen t Nonspecific T wave abnormality has replaced inve rted T waves in Lateral leads Confirmed by MD GABY, AVA ([id number]) on 01/23/2015 1:26:3 8 PM Specimen Anatomical Collection Method Collection Time Receive d Time (Source) Location / / Volume Laterality 01/22/2015 7:53 PM 5 1:26 EDT PM EDT Jarett Walker MD ECG ORDERABLES Performing Organization Address City/State/ZIP Code Phon e Number MUSE SYSTEM Body Fluid Culture Auto (01/22/2015 7:33 PM EDT) [facility] gist Method Time Signature Body Fluid CERNER Culture ? Patient Name: Valentine YUSUF ? Ordered By: YURY COLON MILLENNIUM Automated ? MR#: [id number] ?LOC : ??[facility] ? /Sex: ??1960 (54 years), ? Female ? PROCEDURE: Body Fluid Culture Automated ?SOURCE: Pericardial Fl ? COLLECTED: 01/22/2015 19:33 ? STARTED: 01/22/2015 19:33 ? FINAL REPORT ? Final Report ? Verified:01/27/2015 23:01 ? No growth at 5 days. ? PRELIMINARY REPORT ? Preliminary Report ? Verified:01/26/2015 23:01 ? No growth at 4 days. ? Specimen (Source) Anatomical Collection Method Collection Time Re ceived Time Location / / Volume Laterality Pericardial fluid 01/22/2015 7:33 015 7:33 specimen (specimen) PM EDT PM EDT Resulting Agency Comment Spec In Lab Yury Colon MD MICROBIOLOGY - GENERAL ORDER RINA Performing Organization Address City/State/[place] [address] [facility] Non-Orthotic Finish Grinding Technician Final Report (01/22/2015 7:32 PM EDT) Component Value Ref Test Analysis Performed At [facility] gist Range Method Time Signature Non-Orthotic Finish Grinding Technician [facility] Final Report ? [facility] ? Provider: ?? BABITA DOMINGUEZ ?Pt. Name: ?? SEBLE JUSTIN, FRANCIE Gonzales ? Acc #: ?[id number] ?Pt. MRN: ?[id number] ? Col Date: ?? 5 ? /Sex: ?1960,(54 years),Female ? Rec Date: ?? 01/27/2015 ? LOC: ?[facility] ? CYTOPATHOLOGY: ??NGYN ? ---Cytopathologic Diagnosis--- ? See Comment ? 01/29/15 ?Screened by: ? LMY ? Rescreened by: ?? YARN WASHER ? 01/29/15 ?Verified by: ? ANDREAS RAMOS, Tamar JIN ?Pathol ogist ? (Electronic Signature) ? ---Comment--- ? Pericardial Fluid, Pericardiocentesis: ? Red blood cells and white blood cells are prese nt. ??Cell block shows ? similar features. These findings likely represent the blood in the ? hemopericardium. ? ---Clinical Information--- ? Specimen Source: ?Pericardial Fluid, Pericardiocentesis ? Pertinent Clinical Data and Significant Therapy: ?Concerns of mariah gnancy 54 F w/ APLA progressive dyspnea, w/u show large ? hemopericardium and l arge L sided pleural effusion. concerns for underlying ? malignant process ? Clinical Impression: ?(not provided) ? Pertinent Radiologic Findings: ?(not provided) ? Gross Description: ?Received fresh, approximately 150 ml. total volume of cloudy, bloody ? fluid. ?Total Preparation: Liquid Based Prep 1; Cell Blo ck 1. Specimen (Source) Anatomical Collection Method Collection Time Re ceived Time Location / / Volume Laterality 01/22/2015 7:32 PM EDT Babita Dominguez DO PATHOLOGY/CYTOLOGY ORDERABLE S Performing Organization Address [facility]/State/ZIP Code Phon e Number [place] [phone] CERNER MILLENNIUM Body Fluid HOLD (01/22/2015 7:22 PM EDT) Patholo gist Method Time Signature Hold BF Type Sample in CERNER lab. MILLENNIUM Specimen Anatomical Collection Method Collection Time Receive d Time (Source) Location / / Volume Laterality Body fluid Other / Unknown 01/22/2015 7:22 PM 2014 7:23 specimen EDT PM EDT (specimen) Yury Colon MD BODY FLUIDS AND STOOLS ORDER RINA Performing Organization Address City/[facility] Phon e Number [address] [facility] Cholesterol Level Body Fluid Pericardial Fluid (01/22/2015 7:22 PM EDT) P athologist Signature Chol, BF 6 mg/dL [facility] Comment: No reference range is available for the specimen type submitted. ??The performance of this assay for the submit richard type has not been validated and results should be interpreted accordingl y and with regard to the patient's clinical status. Chol, BF Type Pericardial fl CERNER MILL ENNIUM Specimen (Source) Anatomical Collection Method Collection Time Re ceived Time Location / / Volume Laterality Pericardial fluid 01/22/2015 7:22 015 7:22 specimen (specimen) PM EDT PM EDT Resulting Agency Comment Spec In Lab Yury Colon MD BODY FLUIDS AND STOOLS ORDER RINA Performing Organization Address [facility] Phon e Number [address] [facility] Lactate Dehydrogenase Body Fluid Pericardial Fluid (01/22/2015 7:22 PM EDT) P athologist Signature LDH BF Not Perf unit/L [facility] Comment: No reference range is available for the specimen type submitted. ??The performance of this assay for the submit richard type has not been validated and results should be interpreted accordingl y and with regard to the patient's clinical status. LDH, BF Type Pericardial fl CERNER MILLE NNIUM Specimen (Source) Anatomical Collection Method Collection Time Re ceived Time Location / / Volume Laterality Pericardial fluid 01/22/2015 7:22 015 7:22 specimen (specimen) PM EDT PM EDT Resulting Agency Comment Spec In Lab Yury Colon MD BODY FLUIDS AND STOOLS ORDER RINA Performing Organization Address [facility]/[place] [address] CERNER MILLENNIUM Protein Level Body Fluid Pericardial Fluid (01/22/2015 7:22 PM EDT) P athologist Signature Protein, BF Not Perf gm/dL CERNER MILLENNIUM Comment: Called by: mundo, Read back by: Noe olsen e/Time:01/22/15 20:22. Unable to quantitate due to sample hemol ysis. ??Sample redraw suggested. There is no reference range available fo r the specimen type submitted. For determination of transudative vs. ex udative pleural effusions: Transudates: Pleural Total Protein/Serum Total Protein < 0.5 Exudates: Pleural Total Protein/Serum To alvina Protein > 0.5 Protein BF Type Pericardial fl CERNER [place] LLENNIUM Specimen (Source) Anatomical Collection Method Collection Time Re ceived Time Location / / Volume Laterality Pericardial fluid 01/22/2015 7:22 015 7:22 specimen (specimen) PM EDT PM EDT Resulting Agency Comment Spec In Lab Yury Colon MD BODY FLUIDS AND STOOLS ORDER RINA Performing Organization Address [facility] [place] [address] CERNER MILLENNIUM Glucose Level Body Fluid Pericardial Fluid (01/22/2015 7:22 PM EDT) P athologist Signature Glucose, BF 49 mg/dL CERNER MILLENNIUM Comment: No reference range is available for the specimen type submitted. ??The performance of this assay for the submit richard type has not been validated and results should be interpreted accordingl y and with regard to the patient's clinical status. Gluc, BF Type Pericardial fl CERNER MILL ENNIUM Specimen (Source) Anatomical Collection Method Collection Time Re ceived Time Location / / Volume Laterality Pericardial fluid 01/22/2015 7:22 015 7:22 specimen (specimen) PM EDT PM EDT Resulting Agency Comment Spec In Lab Yury Colon MD BODY FLUIDS AND STOOLS ORDER RINA Performing Organization Address City/[facility]/ZIP Code Phon e Number [address] CERNER MILLENNIUM pH Body Fluid Other (01/22/2015 7:22 PM EDT) P athologist Signature pH Body Fluid 7.14 CERNER MILLENNIUM Comment: No reference range is available for the specimen type submitted. ??The performance of this assay for the submit richard type has not been validated and results should be interpreted accordingl y and with regard to the patient's clinical status. pH BF Type Other CERNER MILLENNIUM Specimen Anatomical Collection Method Collection Time Receive d Time (Source) Location / / Volume Laterality Specimen of 01/22/2015 7:22 PM 5 7:22 unknown material EDT PM EDT (specimen) Resulting Agency Comment Spec In Lab Yury Colon MD BODY FLUIDS AND STOOLS ORDER RINA Performing Organization Address City/[facility]/ZIP Code Phon e Number [address] CERNER MILLENNIUM Cell Count Body Fluid Pericardial Fluid (01/22/2015 7:22 PM EDT) Patholo gist Method Time Signature Spec Type BF Pericardial fl CERNER MILLENNIUM Color BF Red CERNER MILLENNIUM Appearance BF Cloudy CERNER MILLENNIUM Comment: Small clot present Nucl Cell BF Ct 7,785 /mcl CERNER MILLENN IUM Comment: Counts may be inaccurate due to presence of small clot If Nucleated Cell Count equals zero, No Scan or Differential is performed. If Nucleated Cell Count equals 1-5, Smea r is scanned but no results are reported unless abnormalities are seen. If Nucleated Cell Count equals [address], Differential is reported. Nucleated Cell Count results are correla richard with body fluid type and clinical condition. Neut Absolute BF 4,671 /mcl CERNER JARETH NIUM Neutrophil BF 60 % CERNER MILLENNIU M Lymphocyte BF 32 % CERNER MILLENNIU M Macrophage BF 6 % CERNER MILLENNIU M Eosinophil BF 1 % CERNER MILLENNIU M Basophil BF 1 % CERNER MILLENNIUM Tot Diff Ct BF 200 Cells CERNER MILLENNI UM Specimen (Source) Anatomical Collection Method Collection Time Re ceived Time Location / / Volume Laterality Pericardial fluid 01/22/2015 7:22 015 7:22 specimen (specimen) PM EDT PM EDT Resulting Agency Comment Spec In Lab Yury Colon MD BODY FLUIDS AND STOOLS ORDER RINA Performing Organization Address City/State/[place] [address] BECKIE JAINSPENCER Calcofluor White Stain (01/22/2015 5:31 PM EDT) Component Value Ref Test Analysis Performed At [employer] Range Method Time Signature Calcofluor CERNER White Stain ? Patient Name: Valentine YUSUF ? Ordered By: YURY COLON ? MR#: [id number] ?LOC: ??[facility] ? /Sex: ??1960 (54 years), ? Female ? PROCEDURE: Calcofluor White Stain ?SOURCE: Pericardial Fl ? COLLECTED: 01/22/2015 17:31 ? STARTED: 01/22/2015 19:31 ? STAINS / PREPARATIONS ? Calcofluor Stain Report ? Verified:01/22/2015 22:32 ? Calcofluor White Preparation: Negative ? Specimen (Source) Anatomical Collection Method Collection Time Re ceived Time Location / / Volume Laterality Pericardial fluid 01/22/2015 5:31 015 7:31 specimen (specimen) PM EDT PM EDT Resulting Agency Comment Spec In Lab Yury Colon MD MICROBIOLOGY - GENERAL ORDER RINA Performing Organization Address City/State/ZIP [place] [address] BECKIE FLORES Anaerobic Culture (01/22/2015 5:31 PM EDT) [employer] Method Time Signature Anaerobic CERNER Culture ? Patient Name: Valentine YUSUF ? Ordered By: YURY COLON ? MR#: [id number] ?LOC: ??[facility] ? /Sex: ??1960 (54 years), ? Female ? PROCEDURE: Anaerobic Culture ?SOURCE: Pericardial Fl ? COLLECTED: 01/22/2015 17:31 ? STARTED: 01/22/2015 19:31 ? FINAL REPORT ? Final Report ? Verified:01/26/2015 12:51 ? No anaerobic organisms isolated ? PRELIMINARY REPORT ? Preliminary Report ? Verified:01/23/2015 16:38 ? No anaerobic organisms isolated to date ? Specimen (Source) Anatomical Collection Method Collection Time Re ceived Time Location / / Volume Laterality Pericardial fluid 01/22/2015 5:31 015 7:31 specimen (specimen) PM EDT PM EDT Resulting Agency Comment Spec In Lab Yury Colon MD MICROBIOLOGY - GENERAL ORDER RINA Performing Organization Address City/State/ZIP Code [place] [address] BECKIE FELTONIUM Body fluid culture (01/22/2015 5:31 PM EDT) Component Value Ref Test Analysis Performed At [facility] gist Range Method Time Signature Body Fluid CERNER Culture ? Patient Name: Valentine YUSUF ? Ordered By: YURY COLON SUSYAZAELJAN ? MR#: [id number] ?LOC: ??[facility] ? /Sex: ??1960 (54 years), ? Female ? PROCEDURE: Body Fluid Culture ?SOURCE: Pericardial Fl ? COLLECTED: 01/22/2015 17:31 ? STARTED: 01/22/2015 19:31 ? STAINS / PREPARATIONS ? Gram Stain Report ? Verified:01/22/2015 20:08 ? Cytocentrifuge Gram Stain performed ? White Blood Cells seen ? No microorganisms seen. ? FINAL REPORT ? Final Report ? Verified:01/28/2015 13:25 ? No growth ? PRELIMINARY REPORT ? Preliminary Report ? Verified:01/23/2015 10:17 ? No growth to date. ? Specimen (Source) Anatomical Collection Method Collection Time Re ceived Time Location / / Volume Laterality Pericardial fluid 01/22/2015 5:31 015 7:31 specimen (specimen) PM EDT PM EDT Resulting Agency Comment Spec In Lab Yury Colon MD MICROBIOLOGY - GENERAL ORDER RINA Performing Organization Address City/State/ZIP Code Phon e Number [address] [employer] culture Pericardial Fluid (01/22/2015 5:31 PM EDT) [employer] Method Time Signature Acid Fast CERNER Bacilli ? Patient Name: Valentine YUSUF ? Ordered By: YURY COLON Culture ? MR#: [id number] ?LOC: ??[facility] ? /Sex: ??1960 (55 years), ? Female ? PROCEDURE: Acid Fast Bacilli Culture ?SOURCE: Pericardial Fl ? COLLECTED: 01/22/2015 17:31 ? STARTED: 01/22/2015 19:31 ? STAINS / PREPARATIONS ? Acid Fast Stain Report ? Verified:01/23/2015 21:11 ? No Acid Fast Bacilli seen ? FINAL REPORT ? Final Report ? Verified:03/20/2015 12:03 ? No Acid Fast Bacilli isolated ? PRELIMINARY REPORT ? Preliminary Report ? Verified:03/13/2015 14:01 ? No acid fast bacilli isolated at 7 weeks. ? Specimen (Source) Anatomical Collection Method Collection Time Re ceived Time Location / / Volume Laterality Pericardial fluid 01/22/2015 5:31 015 7:31 specimen (specimen) PM EDT PM EDT Resulting Agency Comment Spec In Lab Yury Colon MD MICROBIOLOGY - GENERAL ORDER RINA Performing Organization Address City/State/[place] [address] BECKIE FLORES Fungus culture Pericardial Fluid (01/22/2015 5:31 PM EDT) [employer] Method Time Signature Fungus BECKIE Culture ? Patient Name: Valentine YUSUF N ? Ordered By: YURY COLON ? MR#: [id number] ?LOC: ??[facility] ? /Sex: ??1960 (54 years), ? Female ? PROCEDURE: Fungus Culture ?SOURCE: Pericardial Fl ? COLLECTED: 01/22/2015 17:31 ? STARTED: 01/22/2015 19:31 ? FINAL REPORT ? Final Report ? Verified:02/24/2015 07:26 ? No Fungus isolated ? PRELIMINARY REPORT ? Preliminary Report ? Verified:01/23/2015 07:21 ? No Fungus isolated to date ? Specimen (Source) Anatomical Collection Method Collection Time Re ceived Time Location / / Volume Laterality Pericardial fluid 01/22/2015 5:31 015 7:31 specimen (specimen) PM EDT PM EDT Resulting Agency Comment Spec In Lab Yury Colon MD MICROBIOLOGY - GENERAL ORDER RINA Performing Organization Address City/State/[place] [address] chest WO contrast (01/22/2015 5:08 PM EDT) Anatomical Region Laterality Modality Chest Computed Tomography Specimen (Source) Anatomical Collection Method Collection Time Re ceived Time Location / / Volume Laterality 01/22/2015 5:08 PM EDT Impressions 01/22/2015 5:26 PM EDT IMPRESSION: 1. Large amount of circumferential peric ardial fluid, with elevated attenuation, consistent with nonsimple fluid. Cannot assess for vascular integrity or for pericardial nodules/masses in the absenc e of intravenous contrast. 2. Small left and very small right simpl e pleural effusions. 3. Partial compressive atelectasis of th e lingula and left lower lobe. No gross pulmonary mass seen. Narrative 01/22/2015 5:26 PM EDT EXAMINATION: CT Chest Without Contrast CLINICAL HISTORY: 54 y/o F w/ pericardia l tamponade of unclear etiology; per discussion with Dr. Colon, question mass TECHNIQUE: 3.75 mm thick axial contiguou s sections were obtained through the chest via helical acquisition without in travenous contrast administration. Thin-section reconstructions as well as coronal and sagittal reformatted images were generated. COMPARISON: 03/10/2014. FINDINGS: Pulmonary parenchyma: Due to pericardial effusion and left pleural effusion, there is partial compressive atelectasis of the lingula on left lower lobe. No pulmonary parenchymal masses are identif ied. Airways: No significant findings. Pleura: Small left and very small right pleural effusions with attenuation of 7 Hounsfield units on the left, 3 Hounsfie ld units on the right, consistent with simple fluid. Lymph nodes:Interval enlargement of medi astinal lymph nodes, such as a 13 mm short axis upper right paratracheal lymp h node on series 2 image 21 and a 17 mm short axis subcarinal lymph node on seri es 2 image 35. Hilar lymph nodes not assessable in the absence of intravenous contrast. Heart, pericardium, and great vessels: L arge amount of circumferential pericardial fluid with attenuation of 35 Hounsfield units, consistent with nonsimple fluid. As this study was reque sted without intravenous contrast, vascular integrity cannot be assessed. N o definite gross change in caliber of thoracic great vessels. Cannot assess fo r pericardial nodules or masses in the absence of contrast. Upper abdomen: A small amount of high at tenuation material within the lumen of the gastroesophageal junction may reflec t ingested material such as medication. Allowing for noncontrast technique, a fe w tiny hepatic hypodensities seen on prior, appear unchanged, too small to ac curately characterize, most likely cysts. Skeletal structures: No significant inte rval findings. Procedure Note Lucy Tesfaye MD - 01/22/2015Formatt ing of this note might be different from the original. EXAMINATION: CT Chest Without Contrast CLINICAL HISTORY: 54 y/o F w/ pericardia l tamponade of unclear etiology; per discussion with Dr. oClon, question mass TECHNIQUE: 3.75 mm thick axial contiguou s sections were obtained through the chest via helical acquisition without in travenous contrast administration. Thin-section reconstructions as well as coronal and sagittal reformatted images were generated. COMPARISON: 03/10/2014. FINDINGS: Pulmonary parenchyma: Due to pericardial effusion and left pleural effusion, there is partial compressive atelectasis of the lingula on left lower lobe. No pulmonary parenchymal masses are identif ied. Airways: No significant findings. Pleura: Small left and very small right pleural effusions with attenuation of 7 Hounsfield units on the left, 3 Hounsfie ld units on the right, consistent with simple fluid. Lymph nodes:Interval enlargement of medi astinal lymph nodes, such as a 13 mm short axis upper right paratracheal lymp h node on series 2 image 21 and a 17 mm short axis subcarinal lymph node on seri es 2 image 35. Hilar lymph nodes not assessable in the absence of intravenous contrast. Heart, pericardium, and great vessels: L arge amount of circumferential pericardial fluid with attenuation of 35 Hounsfield units, consistent with nonsimple fluid. As this study was reque sted without intravenous contrast, vascular integrity cannot be assessed. N o definite gross change in caliber of thoracic great vessels. Cannot assess fo r pericardial nodules or masses in the absence of contrast. Upper abdomen: A small amount of high at tenuation material within the lumen of the gastroesophageal junction may reflec t ingested material such as medication. Allowing for noncontrast technique, a fe w tiny hepatic hypodensities seen on prior, appear unchanged, too small to ac curately characterize, most likely cysts. Skeletal structures: No significant inte rval findings. IMPRESSION IMPRESSION: 1. Large amount of circumferential peric ardial fluid, with elevated attenuation, consistent with nonsimple fluid. Cannot assess for vascular integrity or for pericardial nodules/masses in the absenc e of intravenous contrast. 2. Small left and very small right simpl e pleural effusions. 3. Partial compressive atelectasis of th e lingula and left lower lobe. No gross pulmonary mass seen. Yury Colon MD IMG CT ORDERABLES XR chest PA or AP- 1 view (01/22/2015 4:15 PM EDT) Anatomical Region Laterality Modality Chest N/A Radiographic Imaging Specimen (Source) Anatomical Collection Method Collection Time Re ceived Time Location / / Volume Laterality 01/22/2015 4:15 PM EDT Impressions 01/22/2015 4:29 PM EDT IMPRESSION: Increased left hemithorax opacity compatible with atelectasis and effusion partially of scarring enlarged cardiac silhouette. Narrative 01/22/2015 4:29 PM EDT EXAMINATION: CHEST ONE VIEW/XPORT CLINICAL HISTORY: 54 y/o F w/ pericardia l tamponade TECHNIQUE: Portable AP chest radiograph on ??01/22/2015 at 1610 hours. COMPARISON: Portable AP chest radiograph on 01/22/2015 at 1135 hours. FINDINGS: No change in opacity in the le ft mid to lower hemithorax compatible with atelectasis and effusion obscuring the left heart border. Nevertheless, the cardiac silhouette is enlarged. Grossly clear right lung. Pulmonary vessel markings appear within normal limits. No definite pleural effusion on the right. Procedure Note Lucy Tesfaye MD - 06/11/2015Formatt ing of this note might be different from the original. EXAMINATION: CHEST ONE VIEW/XPORT CLINICAL HISTORY: 54 y/o F w/ pericardia l tamponade TECHNIQUE: Portable AP chest radiograph on 01/22/2015 at 1610 hours. COMPARISON: Portable AP chest radiograph on 01/22/2015 at 1135 hours. FINDINGS: No change in opacity in the le ft mid to lower hemithorax compatible with atelectasis and effusion obscuring the left heart border. Nevertheless, the cardiac silhouette is enlarged. Grossly clear right lung. Pulmonary vessel markings appear within normal limits. No definite pleural effusion on the right. IMPRESSION IMPRESSION: Increased left hemithorax op acity compatible with atelectasis and effusion partially of scarring enlarged cardiac silhouette. Yury Colon MD IMG DX ORDERABLES Prepare thawed plasma (01/22/2015 3:35 PM EDT) athologist Signature Dispensed? Yes [facility] Specimen Anatomical Collection Method Collection Time Receive d Time (Source) Location / / Volume Laterality Blood specimen 01/22/2015 3:35 PM 015 3:39 (specimen) EDT PM EDT Yury Colon MD BLOOD BANK ORDERABLES Performing Organization Address City/State/ZIP Code Phon e Number [address] [facility] Antibody screen (01/22/2015 3:25 PM EDT) [employer] Method Time Signature Ab Screen Negative [facility] Expires at 01/25/2015 BECKIE [id number] on: SUSYENNIUM Specimen Anatomical Collection Method Collection Time Receive d Time (Source) Location / / Volume Laterality Blood specimen 01/22/2015 3:25 PM 015 4:37 (specimen) EDT PM EDT Resulting Agency Comment Spec In Lab Yury Colon MD BLOOD BANK ORDERABLES Performing Organization Address City/[facility]/ZIP Code Phon e Number [address] [facility] ABO/Rh Typing (01/22/2015 3:25 PM EDT) athologist Signature ABORh Type O Pos CERNER MILLENNIUM Specimen Anatomical Collection Method Collection Time Receive d Time (Source) Location / / Volume Laterality Blood specimen 01/22/2015 3:25 PM 015 4:37 (specimen) EDT PM EDT Resulting Agency Comment Spec In Lab Yury Colon MD BLOOD BANK ORDERABLES Performing Organization Address City/State/[place] [address] CERNER MILLENNIUM EKG 12 Lead (01/22/2015 2:09 PM EDT) Component Value Ref Range Test Analysis Performed Pathologis t Method Time At Signature Ventricular rate 90 BPM MUSE SYSTEM Atrial Rate 90 BPM MUSE SYSTEM P-R Interval 128 ms MUSE SYSTEM QRS Duration 90 ms MUSE SYSTEM Q-T Interval 402 ms MUSE SYSTEM QTC Calculated 491 ms MUSE SYSTEM (Bezet) Calculated P [place] 31 degrees MUSE SYSTEM Calculated R [place] -7 degrees MUSE SYSTEM Calculated T [place] -35 degrees MUSE SYSTEM INTERPRETATION Sinus rhythm with Premature atrial complexes in a pattern of bigeminy MUSE SYSTEM Inferior infarct , age undetermined ST & T wave abnormality, consider lateral ischemia Abnormal ECG No previous ECGs available Confirmed by MD GABY, AVA ([id number]) on 01/22/2015 2:46:3 3 PM Specimen Anatomical Collection Method Collection Time Receive d Time (Source) Location / / Volume Laterality 01/22/2015 2:09 PM 5 2:46 EDT PM EDT Miles Luong II, MD ECG ORDERABLES Performing Organization Address City/[facility]/ZIP Code Phon e Number MUSE SYSTEM (ABNORMAL) Differential, Automated (01/22/2015 2:00 PM EDT) Patholo gist Method Time Signature Neutrophils % 86.1 % CERNER MILLENNIUM Neutr Abs (ANC) 11.11 (H) 1.50 - CERNER 6.30 MILLENNIUM x10(3)/mc L Lymphocytes % 5.6 % CERNER MILLENNIUM Lymphocytes Abs 0.7 (L) 1.0 - 3.6 CERNER x10(3)/mc MILLENNIUM L Monocytes % 7.8 % CERNER MILLENNIUM Monocyte Abs 1.0 0.2 - 1.0 CERNER x10(3)/mc MILLENNIUM L [...] Location / / Volume Laterality Blood specimen 01/22/2015 2:00 PM 015 2:25 (specimen) EDT PM EDT Resulting Agency Comment Spec In Lab Yury Colon MD HEMATOLOGY ORDERABLES Performing Organization Address City/State/[place] [address] CERNER MILLENNIUM (ABNORMAL) Hemogram (01/22/2015 2:00 PM EDT) P athologist Signature WBC 12.9 (H) 4.0 - 10.0 CERNER x10(3)/mcL MILLENNIUM RBC 3.55 (L) 3.93 - CERNER 5.22 MILLENNIUM x10(6)/mcL Hemoglobin 9.9 (L) 11.2 - CERNER 15.7 gm/dL MILLENNIUM Hematocrit 29.1 (L) 34.0 - CERNER 45.0 % MILLENNIUM MCV 82.0 79.0 - CERNER 94.0 fL MILLENNIUM MCH 27.9 26.6 - CERNER 32.2 pg MILLENNIUM MCHC 34.0 32.0 - CERNER 36.5 gm/dL MILLENNIUM Platelets 493 (H) 145 - 370 CERNER x10(3)/mcL MILLENNIUM RDWSD 41.1 35.0 - CERNER 46.0 fL MILLENNIUM RDWCV 13.6 10.9 - CERNER 14.4 % [facility] MPV 9.7 9.0 - 12.0 CERNER [facility] Specimen Anatomical Collection Method Collection Time Receive d Time (Source) Location / / Volume Laterality Blood specimen 01/22/2015 2:00 PM 015 2:25 (specimen) EDT PM EDT Resulting Agency Comment Spec In Lab Yury Colon MD HEMATOLOGY ORDERABLES Performing Organization Address City/[facility]/ZIP Code Phon e Number [address] [facility] APTT (01/22/2015 2:00 PM EDT) P athologist Signature PTT 56 (H) 25 - 35 sec CERNER [facility] Comment: Recommended therapeutic PTT range for fu ll dose unfractionated heparin is 80-114 seconds. Specimen Anatomical Collection Method Collection Time Receive d Time (Source) Location / / Volume Laterality Blood specimen 01/22/2015 2:00 PM 015 2:25 (specimen) EDT PM EDT Resulting Agency Comment Spec In Lab Yury Colon MD HEMATOLOGY ORDERABLES Performing Organization Address City/[facility]/ZIP Code Phon e Number [address] [facility] Prothrombin Time (01/22/2015 2:00 PM EDT) P athologist Signature PT 57.1 12.5 - CERNER (Critical) 15.5 sec [facility] Comment: Called by: j carlos, Read back by: fan mccallum, Date/Time:01/22/15 15:05. Transfusion Committee Guidelines: INR less than 2.0, PTT less than OR equal to 43.5 seconds, or Fibrinogen greater t fernandes or equal to 100 mg/dl indicate adequate procoagulant activity for hemos tasis in patients without underlying bleeding disorders. INR 5.9 (H) 0.9 - 1.1 [facility] Specimen Anatomical Collection Method Collection Time Receive d Time (Source) Location / / Volume Laterality Blood specimen 01/22/2015 2:00 PM 015 2:25 (specimen) EDT PM EDT Resulting Agency Comment Spec In Lab Yury Colon MD HEMATOLOGY ORDERABLES Performing Organization Address City/State/ZIP Code [place] [address] CERNER MILLENNIUM (ABNORMAL) CMP w/fasting Glucose (01/22/2015 2:00 PM EDT) P athologist Signature Glucose 141 (H) 65 - 99 CERNER Fasting mg/dL MILLENNIUM Comment: ?Fasting* Glucose Interpretive C riteria Normal ?65-99 mg/dL Impaired Fasting glucose ?100-125 mg/dL Consistent with Diabetes Mellitus ? >or= 126 mg/dL *Fasting is defined as no caloric intake for at least 8 hours In the absence of unequivocal hypergly cemia a plasma glucose value of >or= 126 mg/dL should be repeated on a subseq uent day. Diagnosis and Classification of Diabetes Mellitus, Position Statement from the [place] [employer]. ??Diabete s Care, Volume 33, Supplement 1, Aug 2009 BUN 20 (H) 8 - 18 mg/dL CERNER MILLENNIUM Creatinine 0.71 0.70 - 1.20 mg/dL CERNER MILL ENNIUM Comment: Please note that the pediatric reference intervals supplied above were not validated at [facility] Results from pediatri c patients should be interpreted in conjunction to the patient's age, height and muscle mass. Sodium 132 (L) 135 - 145 mmol/L CERNER JARETH NIUM Potassium 3.3 (L) 3.5 - 5.0 mmol/L CERNER JARETH NIUM Comment: Please note: ??Patients with WBC >100,00 0 may have falsely elevated Potassium levels. ??For accurate Potassium quantif ication in these patients send serum separator tube (gold top) for subsequent determinations. ??Contact the Clinical Chemistry Laboratory if there are any qu estions. Chloride 87 (L) 98 - 107 mmol/L CERNER MILLENN IUM CO2 25 22 - 31 mmol/L CERNER MILLENNI UM Anion Gap 20 (H) 5 - 15 mmol/L BECKIE JAINENNIU M Calcium 7.7 (L) 8.5 - 10.5 mg/dL BECKIE JAINEN NIUM Total Protein 6.6 6.1 - 8.0 gm/dL BECKIE MIL LENNIUM Albumin 3.6 3.2 - 5.2 gm/dL CERNER SUSYENN IUM AST 33 (H) 0 - 30 unit/L CERNER MILLENNIU M ALT 42 (H) 0 - 30 unit/L CERNER MILLENNIU M Alk Phos 137 (H) 40 - 104 unit/L CERNER MILLENN IUM Total Bilirubin 0.6 0.2 - 1.3 mg/dL BECKIE M ILLENNIUM Bili, Direct 0.2 0.0 - 0.3 mg/dL BECKIE MILL ENNIUM Estimated GFR >60 >=60 NANDONER MILLENNIU M Comment: This estimated GFR (eGFR) [...] the following links into your internet browser. [email or web address] http://[employer]/DHMCnkf Specimen Anatomical Collection Method Collection Time Receive d Time (Source) Location / / Volume Laterality Blood specimen 01/22/2015 2:00 PM 015 2:25 (specimen) EDT PM EDT Resulting Agency Comment Spec In Lab Yury Colon MD CHEMISTRY ORDERABLES Performing Organization Address City/State/ZIP [place] [address] [facility] documented in this encounter Visit Diagnoses Diagnosis Cardiac tamponade - Primary Pericardial effusion Unspecified disease of pericardium Antiphospholipid antibody syndrome Primary hypercoagulable state Acute bloody pericarditis Acute pericarditis, unspecified Supratherapeutic INR Abnormal coagulation profile Pleural effusion Unspecified pleural effusion documented in this encounter Administered Medications Inactive Administered Medications - up to 3 most recent administrations Medication Order MAR Action Action Date Dose Rate Site acetaminophen (TYLENOL) tablet Given 01/24/2015 12:48 AM EDT 1,0 00 mg 1,000 mg 1,000 mg, Oral, EVERY 8 HOURS PRN, Starting on Mon01/24/15 at 0030, Until Mon01/24/15 at 0949, Pain, Maximum dose of acetaminophen is 4000 mg from all sources in 24 hours., Routine acetaminophen (TYLENOL) tablet 1,000 mg Given 01/28/2015 5:38 AM EDT 1,000 mg 1,000 mg, Oral, 3 TIMES DAILY, First dose (after last modification) on 01/24/15 at 1500, Until Discontinued, Maximum dose of acetaminophen is 4000 mg from all sources in 24 hours., Routine Given 01/27/2015 9:39 PM EDT 1,000 mg Given 01/27/2015 3:41 PM EDT 1,000 mg acetaminophen (TYLENOL) tablet 325 mg Given 01/23/2015 12:14 AM EDT 325 mg 325 mg, Oral, ONCE, 1 dose, On Mon01/23/15 at 0015, Maximum dose of acetaminophen is 4000 mg from all sources in 24 hours., Routine acetaminophen (TYLENOL) tablet 650 mg Given 01/22/2015 10:01 PM EDT 650 mg 650 mg, Oral, EVERY 8 HOURS PRN, Starting on Mon01/22/15 at 2142, Until Rena 01/22/15 at 2357, Pain, Maximum dose of acetaminophen is 4000 mg from all sources in 24 hours., Routine acetaminophen (TYLENOL) tablet 650 mg Given 01/23/2015 8:40 PM EDT 650 mg 650 mg, Oral, EVERY 4 HOURS PRN, Starting on Mon01/23/15 at 0000, Until 01/24/15 at 0015, Pain, Maximum dose of acetaminophen is 4000 mg from all sources in 24 hours., Routine Given 01/23/2015 3:58 PM EDT 650 mg Given 01/23/2015 11:58 AM EDT 650 mg chlorhexidine (PERIDEX) 0.12 % oral solution Given 9:00 AM EDT 15 mLs 15 mL 15 mL, Oral, EVERY 12 HOURS SCHEDULED (2 times per day), First dose on Mon01/22/15 at 2100, Until Discontinued, To brush teeth, Routine Given 01/27/2015 9:40 PM EDT 15 mLs Given 01/27/2015 9:00 AM EDT 15 mLs esomeprazole (NexIUM) capsule 40 mg Given 01/28/2015 9:26 AM EDT 40 mg 40 mg, Oral, DAILY, First dose on Rena 01/22/15 at 1500, Until Discontinued, Routine Given 01/27/2015 9:02 AM EDT 40 mg Given 01/26/2015 8:56 AM EDT 40 mg fentaNYL 50mcg/mL injection Given 01/25/2015 2:05 PM EDT 50 mcg 25-50 mcg, Intravenous, EVERY 5 MIN PRN, Starting on 01/25/15 at 1313, Until 01/25/15 at 1416, Pain, Angio/IR (Intra-Procedure), Routine Given 01/25/2015 1:55 PM EDT 50 mcg Given 01/25/2015 1:50 PM EDT 50 mcg HYDROmorphone (DILAUDID) injection 0.2 m g Given 01/26/2015 1:11 AM EDT 0.2 mg 0.2 mg, Intravenous, ONCE, 1 dose, On Mon01/26/15 at 0130, Routine HYDROmorphone (DILAUDID) injection 0.4 m g Given 01/23/2015 3:28 AM EDT 0.4 mg 0.4 mg, Intravenous, ONCE, 1 dose, On Mon01/23/15 at 0345, Routine HYDROmorphone (DILAUDID) injection 0.4 m g Given 01/23/2015 4:30 AM EDT 2 mg 0.4 mg, Intravenous, ONCE, 1 dose, On Mon01/23/15 at 0430, Routine HYDROmorphone (DILAUDID) injection 0.4 m g Given 01/26/2015 2:52 AM EDT 0.4 mg 0.4 mg, Intravenous, ONCE, 1 dose, On Mon01/26/15 at 0300, Routine HYDROmorphone (DILAUDID) injection 0.6 m g Given 01/26/2015 5:37 AM EDT 0.6 mg 0.6 mg, Intravenous, ONCE, 1 dose, On Mon01/26/15 at 0545, Routine HYDROmorphone (DILAUDID) tablet 2 mg Given 01/23/2015 2:54 AM EDT 2 mg 2 mg, Oral, EVERY 6 HOURS PRN, Starting on Mon01/23/15 at 0246, Until Mon01/23/15 at 0659, Pain, Routine HYDROmorphone (DILAUDID) tablet 2 mg Given 01/25/2015 10:40 PM EDT 2 mg 2 mg, Oral, EVERY 4 HOURS PRN, Starting on Mon01/23/15 at 0700, Until Mon01/26/15 at 0242, Pain, Routine Given 01/23/2015 8:36 AM EDT 2 mg HYDROmorphone (DILAUDID) tablet 2 mg Given 01/27/2015 5:41 PM EDT 2 mg 2 mg, Oral, EVERY 4 HOURS PRN, Starting on Mon01/26/15 at 0242, Until Mon01/28/15 at 0608, Pain, for mild pain (1-3), May give an additional 2 mg once if pain not relieved in 30-60 minutes., Routine HYDROmorphone (DILAUDID) tablet 4 mg Given 01/27/2015 1:20 PM EDT 4 mg 4 mg, Oral, EVERY 4 HOURS PRN, Starting on Mon01/26/15 at 0242, Until Mon01/28/15 at 0608, Pain, for moderate to severe pain (4-10), May give an additional 2 mg once if pain not relieved in 30-60 minutes., Routine Given 01/27/2015 9:02 AM EDT 4 mg Given 01/27/2015 4:54 AM EDT 4 mg levothyroxine (SYNTHROID) tablet 112 mcg Given 01/28/2015 5:39 AM EDT 112 mcg 112 mcg, Oral, EVERY MORNING, First dose on Mon01/23/15 at 0600, Until Discontinued, Routine Given 01/27/2015 5:54 AM EDT 112 mcg Given 01/26/2015 5:37 AM EDT 112 mcg lidocaine (LIDODERM) 5 %(700 mg/patch) patch Given 9:24 AM EDT 1 patch 1 patch 1 patch, Transdermal, DAILY, First dose on Mon01/23/15 at 0900, Until Discontinued, Apply patch(es) for 12 hours, and then remove for 12 hours, Routine Given 01/27/2015 9:02 AM EDT 1 patch Given 01/26/2015 8:57 AM EDT 1 patch lidocaine (LIDODERM) patch Given 01/24/2015 9:00 PM 1 patch 11- Chest (Left) REMOVAL EDT Transdermal, NIGHTLY, First dose on Mon01/23/15 at 2100, Until Discontinued, Remove Lidocaine Patch melatonin tablet 3 mg Given 01/25/2015 12:00 AM EDT 3 mg 3 mg, Oral, NIGHTLY, First dose on 01/24/15 at 2315, Until Discontinued, Routine phytonadione (MEPHYTON) tablet 1.25 mg Given 01/25/2015 3:21 PM EDT 1.25 mg 1.25 mg, Oral, ONCE, 1 dose, On 01/25/15 at 1245, Routine phytonadione (MEPHYTON) tablet 1.25 mg Given 01/26/2015 1:49 PM EDT 1.25 mg 1.25 mg, Oral, ONCE, 1 dose, On 01/26/15 at 1400, Routine phytonadione (MEPHYTON) tablet 1.25 mg Given 01/27/2015 3:40 PM EDT 1.25 mg 1.25 mg, Oral, ONCE, 1 dose, On Mon01/27/15 at 1315, Routine phytonadione (MEPHYTON) tablet 5 mg Given 01/24/2015 11:28 AM EDT 5 mg 5 mg, Oral, ONCE, 1 dose, On 01/24/15 at 1000, Routine potassium chloride (K-DUR/KLOR-CON) extended Given 07/2015 8:36 AM EDT 20 mEq release tablet 20 mEq 20 mEq, Oral, EVERY 4 HOURS PRN, Starting on Rena 01/22/15 at 1618, Until Mon01/23/15 at 1021, hypokalemia, Administer for serum potassium (mMol/L) of 3.9 - 4 See instructions for Potassium Protocol in online policies., Routine potassium chloride (K-DUR/KLOR-CON) extended Given 06/2015 4:27 PM EDT 40 mEq release tablet 40 mEq 40 mEq, Oral, EVERY 4 HOURS PRN, Starting on Rena 01/22/15 at 1618, Until Mon01/23/15 at 1021, hypokalemia, Administer for serum potassium (mMol/L) of 3.6 - 3.8 See instructions for Potassium Protocol in online policies., Routine potassium chloride (K-DUR/KLOR-CON) extended Given 06/2015 10:01 PM EDT 40 mEq release tablet 40 mEq 40 mEq, Oral, ONCE, 1 dose, On Rena 01/22/15 at 2200, 20 mEq tablet may be dissolved in water for administration, Routine potassium chloride (K-DUR/KLOR-CON) extended Given 5:54 PM EDT 40 mEq release tablet 40 mEq 40 mEq, Oral, ONCE, 1 dose, On 01/24/15 at 1715, Routine predniSONE (DELTASONE) tablet 20 mg Given 01/28/2015 9:26 AM EDT 20 mg 20 mg, Oral, DAILY, First dose on 01/26/15 at 2100, Until Discontinued, Routine Given 01/26/2015 8:35 PM EDT 20 mg promethazine (PHENERGAN) tablet 12.5 mg Given 01/26/2015 1:49 PM EDT 12.5 mg 12.5 mg, Oral, EVERY 6 HOURS PRN, Starting on Mon01/26/15 at 1324, Until Mon01/28/15 at 2031, Nausea, Routine senna-docusate (PERICOLACE) 8.6-50 mg per Given 01/28/2015 9 :29 AM EDT 1 tablet tablet 1 tablet 1 tablet, Oral, 2 TIMES DAILY PRN, Starting on 01/26/15 at 0526, Until Mon01/28/15 at 2031, Constipation, Give if no bowel movement qd., Routine Given 01/26/2015 8:57 AM EDT 1 tablet simvastatin (ZOCOR) tablet 20 mg Given 01/28/2015 5:40 PM EDT 20 mg 20 mg, Oral, EVERY EVENING, First dose on Rena 01/22/15 at 1700, Until Discontinued, Routine Given 01/27/2015 5:41 PM EDT 20 mg Given 01/26/2015 4:12 PM EDT 20 mg sodium chloride 0.9 % flush 5 mL Given 01/28/2015 3:17 AM EDT 5 mLs 5 mL, Intravenous, EVERY 12 HOURS, First dose on Rena 01/22/15 at 1430, Until Discontinued, Routine Given 01/25/2015 2:30 AM EDT 5 mLs Given 01/24/2015 4:41 PM EDT 5 mLs traMADol (ULTRAM) tablet 25 mg Given 01/23/2015 5:46 PM EDT 25 mg 25 mg, Oral, ONCE, 1 dose, On Mon01/23/15 at 1800, Routine documented in this encounter Active and Recently Administered Medications Times are shown in EDT. Scheduled Medication Order 01/26/2015 01/27/2015 01/28/2015 acetaminophen (TYLENOL) tablet 1,000 mg (CANCELED) 085 6 (Given - Provider: Shadia Rodriguez RN)1600 (Given - Provider: Shadia Rodriguez RN)2035 (Given - Provider: Jarett Davison RN) 09 (Given - Provider: Ella Trent N)154 (Given - Provider: Shadia Rodriguez RN)213 (Given - Provider: Brian Goff, KALA) 0538 (Given - Provider: Brian Goff RN) 1,000 mg, Oral, 3 TIMES DAILY, First dos e on Mon01/24/15 at 1500, Until Discontinued, Maximum dose of acetaminophen is 4000 mg from all sources in 24 hours., Routine chlorhexidine (PERIDEX) 0.12 % oral solution 15 mL (CA NCELED) 0900 (Given - Provider: Shadia Rodriguez RN)2035 (Given - Provider: Jarett Davison RN) 0900 (Given - Provider: Shadia Rodriguez RN)2140 (Given - Provider: Brian Goff RN) 0900 (Given - Provider: Rosamaria Park, RN) 15 mL, Oral, EVERY 12 HOURS SCHEDULED (2 times per day), First dose on Mon01/22/15 at 2100, Until Discontinued, To brush teeth, Routine esomeprazole (NexIUM) capsule 40 mg (CANCELED) 0856 (G iven - Provider: Shadia Rodriguez RN) 09 (Given - Provider: Shadia Rodriguez RN) 0926 (Given - Provider: Rosamaria Park, RN) 40 mg, Oral, DAILY, First dose on Rena 06/28 at 1500, Until Discontinued, Routine HYDROmorphone (DILAUDID) injection 0.2 mg (COMPLETED) 011 (Given - Provider: Jarett Davison RN) 0.2 mg, Intravenous, ONCE, 1 dose, Mon01/26/15 at 0130, Routine HYDROmorphone (DILAUDID) injection 0.4 mg (COMPLETED) 0252 (Given - Provider: Jarett Davison RN) 0.4 mg, Intravenous, ONCE, 1 dose, Mon01/26/15 at 0300, Routine HYDROmorphone (DILAUDID) injection 0.6 mg (COMPLETED) 0537 (Given - Provider: Jarett Davison RN) 0.6 mg, Intravenous, ONCE, 1 dose, Mon01/26/15 at 0545, Routine levothyroxine (SYNTHROID) tablet 112 mcg (CANCELED) 05 37 (Given - Provider: Jarett Davison RN) 0554 (Given - Provider: Jarett Davison RN) 0539 (Given - Provider: Brian Goff RN) 112 mcg, Oral, EVERY MORNING, First dose on Mon01/23/15 at 0600, Until Discontinued, Routine lidocaine (LIDODERM) 5 %(700 mg/patch) patch 1 patch ( CANCELED) 0857 (Given - Provider: Shadia Rodriguez RN) 09 (Given - Provider: Shadia Rodriguez RN) 0924 (Given - Provider: Rosamaria Park, KALA) 1 patch, Transdermal, DAILY, First dose on Mon01/23/15 at 0900, Until Discontinued, Apply patch(es) for 12 hours, and then remove for 12 hours, Routine phytonadione (MEPHYTON) tablet 1.25 mg (COMPLETED) 134 9 (Given - Provider: Shadia Rodriguez RN) 1.25 mg, Oral, ONCE, 1 dose, Mon01/26/15 at 1400, Routine phytonadione (MEPHYTON) tablet 1.25 mg (COMPLETED) 1540 (Given - Provider: Shadia Rodriguez RN) 1.25 mg, Oral, ONCE, 1 dose, Mon01/27/15 at 1315, Routine predniSONE (DELTASONE) tablet 20 mg 2035 (Given - Provider: Greg Davison RN) 0926 (Given - Provider: Rosamaria Park, RN) 20 mg, Oral, DAILY, First dose on Mon at 2100, Until Discontinued, Routine simvastatin (ZOCOR) tablet 20 mg (CANCELED) 1612 (Give n - Provider: Shadia Rodriguez RN) 1741 (Given - Provider: Sahdia Rodriguez, RN) 1740 (Given - Provider: Rosamaria Park RN) 20 mg, Oral, EVERY EVENING, First dose o n Rena 01/22/15 at 1700, Until Discontinued, Routine sodium chloride 0.9 % flush 5 mL (CANCELED) 0230 (Not Given - Provider: Jarett Davison RN - Reason: Order parameters not met)1430 (Not Given - Provider: Shadia Rodriguez RN - Reason: See comment - Comment: given with morning meds) 0230 (Not Given - Provider: Jarett Davison RN - Reason: Order parameters not met)1430 (Not Given - Provider: Shadia Rodriguez RN - Reason: See comment - Comment: given earlier in shift) 0317 (Given - Provider: Brian Goff RN)1430 (Not Given - Provider: Rosamaria Park RN - Reason: Transfer to a Procedural area) 5 mL, Intravenous, EVERY 12 HOURS, First dose on Rena 01/22/15 at 1430, Until Discontinued, Routine PRN Medication Order 01/26/2015 01/27/2015 01/28/2015 bisacodyl (DULCOLAX) suppository 10 mg 10 mg, Rectal, DAILY PRN, Starting Mon at 1104, Until Mon01/28/15 at 2031, Constipation, Routine HYDROmorphone (DILAUDID) tablet 2 mg (CANCELED) 0333 ( See Alternative - Provider: Jarett Davison RN)0857 (See Alternative - Provider: Shadia Rodriguez RN)1349 (See Alternative - Provider: Shadia Rodriguez, RN)1820 (See Alternative - Provider: Shadia Rodriguez RN) 0454 (See Alternative - Provider: Jarett Davison RN)0902 (See Alternative - Provider: Shadia Rodriguez, RN)1320 (See Alternative - Provider: Shadia Rodriguez, RN)1741 (Given - Provider: Shadia Rodriguez, RN) 2 mg, Oral, EVERY 4 HOURS PRN, Starting 01/26/15 at 0242, Until Mon01/28/15 at 0608, Pain, for mild pain (1-3), May give an additional 2 mg once if pain not relieved in 30-60 minutes., Routine 2346 (See Alternative - Provider: Jarett Davison, KALA) HYDROmorphone (DILAUDID) tablet 4 mg (CANCELED) 0333 ( Given - Provider: Jarett Davison RN)0857 (Given - Provider: Shadia Rodriguez, RN)1349 (Given - Provider: Shadia Rodriguez, RN)1820 (Given - Provider: Shadia Rodriguez, RN)2346 (Given - Provider: Jarett Davison RN) 0454 (Given - Provider: Ella Pizano N)0902 (Given - Provider: Shadia Rodriguez, RN)1320 (Given - Provider: Shadia Rodriguez, RN)1741 (See Alternative - Provider: Shadia Rodriguez RN) 4 mg, Oral, EVERY 4 HOURS PRN, Starting 01/26/15 at 0242, Until Mon01/28/15 at 0608, Pain, for moderate to severe pain (4-10), May give an additional 2 mg once if pain not relieved in 30-60 minutes., Routine polyethylene glycol (MIRALAX) packet 17 g 17 g, Oral, DAILY PRN, Starting 01/28 at 1051, Until Mon01/28/15 at 2030, Constipation, Routine promethazine (PHENERGAN) tablet 12.5 mg (CANCELED) 134 9 (Given - Provider: Shadia Rodriguez RN) 12.5 mg, Oral, EVERY 6 HOURS PRN, Starti ng Mon01/26/15 at 1324, Until Mon01/28/15 at 2030, Nausea, Routine senna-docusate (PERICOLACE) 8.6-50 mg per tablet 1 tab let 0857 (Given - Provider: Shadia Rodriguez RN) 0929 (Given - Provider: Marquis Park RN) 1 tablet, Oral, 2 TIMES DAILY PRN, Start ing Mon01/26/15 at 0526, Until Mon01/28/15 at 2030, Constipation, Give if no bowel movement qd., Routine documented in this encounter Care Teams Special Event Assistant Relationship Specialty Start Date End Date Charlene Morgan APRN PCP - General 04/26/13 06/08/15 documented as of this encounter
--- OUTSIDE RECORDS SUMMARY | 2022-05-27 14:55 | XMS_ITS | Encounter Summary ---
:1960 Author Organization [facility] [place] [address] Care Team Providers Name Role Phone Charlene Morgan EDUARDO Primary Care Provider Encounter Details Date Type Department Care Team Description 01/22/2015 Orders Only Cardiology at [facility] Miles Luong II, [facility] [place] [address] [facility] [phone] CARDIOLOGY DEPT. [place], [place] [address] (Wo rk) Social History Tobacco [...] Associated Diagnosis Comme nts FILM LIBRARY Routine 01/22/2015 12:53 PM Results for this STORAGE ONLY DX EDT procedure ar e in CHEST the results section. documented in this encounter Results Film Library- Storage only DX Chest (01/22/2015 12:53 PM EDT) Anatomical Region Laterality Modality Other Specimen (Source) Anatomical Collection Method Collection Time Re ceived Time Location / / Volume Laterality 01/22/2015 12:53 PM EDT Narrative 01/22/2015 12:58 PM EDT This is a Non-reportable exam Procedure Note ERICKSON, UNSIGNED REPORT - 01/22/2015Formatt ing of this note might be different from the original. This is a Non-reportable exam Miles Luong II, MD IMRuchi FILM LIBRARY ORDERABLES documented in this encounter Visit Diagnoses Not on filedocumented in this encounter Care Teams Expediter Clerk Relationship Specialty Start Date End Date Charlene Morgan APRN PCP - General 04/26/13 06/08/15 documented as of this encounter
--- OUTSIDE RECORDS SUMMARY | 2022-05-27 14:56 | XMS_ITS | Encounter Summary ---
:1960 Author Organization [facility] [place] [address] Care Team Providers Name Role Phone Charlene Morgan EDUARDO Primary Care Provider Encounter Details Date Type Department Care Team Description 01/21/2015 Orders Only Cardiology at [facility] [place] Miles Luong II, [facility] [place] [address] [facility] [phone] CARDIOLOGY DEPT. [place], [place] [address] (Wo rk) Social History Tobacco [...] Associated Diagnosis Comme nts FILM LIBRARY Routine 01/21/2015 12:55 PM Results for this STORAGE ONLY DX EDT procedure ar e in CHEST the results section. documented in this encounter Results Film Library- Storage only DX Chest (01/21/2015 12:55 PM EDT) Anatomical Region Laterality Modality Other Specimen (Source) Anatomical Collection Method Collection Time Re ceived Time Location / / Volume Laterality 01/21/2015 12:55 PM EDT Narrative 01/22/2015 1:00 PM EDT This is a Non-reportable exam Procedure Note ERICKSON, UNSIGNED REPORT - 01/22/2015Formatt ing of this note might be different from the original. This is a Non-reportable exam Miles Luong II, MD IMRuchi FILM LIBRARY ORDERABLES documented in this encounter Visit Diagnoses Not on filedocumented in this encounter Care Teams Certified Corporate Travel Executive Relationship Specialty Start Date End Date Charlene Morgan APRN PCP - General 04/26/13 06/08/15 documented as of this encounter
--- OUTSIDE RECORDS SUMMARY | 2022-05-27 14:56 | XMS_ITS | Encounter Summary ---
:1960 Author Organization [facility] [place] [address] Care Team Providers Name Role Phone Eddie Charleneblanco Degroot APRN Primary Care Provider Reason for Visit Reason Onset Date Comments Other 09/23/2013 question Encounter Details Date Type Department Care Team Description 09/23/2013 Telephone [place]ology [place] [facility] Lorena Jessica, Other (question) [facility] [place] [address] Social History Tobacco Use Types Packs/Day [...] Telephone Encounter - Lorena Jessica RN - 09/25/2013 2:56 PM EST Called Francie and left message relaying Dr. Lowe's response below. Telephone Encounter - Patricio Lowe MD - 09/25/2013 11:27 AM EST Send Francie my regards but I don't do disability papers. Her PCP is her best bet. If that does not work, we refer to Rehab Medicine. Patricio Lowe Telephone Encounter - Lorena Jessica RN - 09/25/2013 11:10 AM EST Francie calls again today leaving message asking if Dr. Lowe will complete disability paperwork for her as she is unable to work. Telephone Encounter - Lorena Jessica RN - 09/23/2013 2:11 PM EST Francie called and left message asking if Dr. Lowe would complete a form saying she is unable to work and under his care. Called her back and left message that usually we recommend patients have these completed by pcp, but if she would like to fax form over I can show it to him to see if he is agreeable to complete. Asked her to call back with any questions. documented in this encounter Plan of Treatment Not on filedocumented as of this encounter Visit Diagnoses Not on filedocumented in this encounter Care Teams Rug Clipper Relationship Specialty Start Date End Date Charlene Morgan APRN PCP - General 04/26/13 06/08/15 documented as of this encounter
--- OUTSIDE RECORDS SUMMARY | 2022-05-27 14:56 | XMS_ITS | Encounter Summary ---
:1960 Author Organization [place] [address] Care Team Providers Name Role Phone Maria García APRN Primary Care Provider Reason for Visit Reason Comments Establish Care thyroid nodule Encounter Details Date Type Department Care Team Description 05/21/2012 [facility] MD Murtaza (Primary Dx) [facility] [address] [place] GENERAL SURGERY [address] [place] [address] [phone] Social History Tobacco Use Types Packs/Day Years [...] Sign Reading Time Taken Comments Blood Pressure 146/74 05/21/2012 10:01 AM EDT Pulse 76 05/21/2012 10:01 AM EDT Temperature - - Respiratory Rate - - Oxygen Saturation 99% 05/21/2012 10:01 AM EDT Inhaled Oxygen Concentration - - Weight 87.1 kg (192 lb) 05/21/2012 10:01 AM EDT Height 165.1 cm (5' 5) 05/21/2012 10:01 AM EDT Body Mass Index 31.95 05/21/2012 10:01 AM EDT documented in this encounter Progress Notes Maurilio Choi MD - 05/21/2012 11:52 AM EDT See H&P in Surgical Consult on 05/21/2012. documented in this encounter H&P Notes Maurilio Choi MD - 05/21/2012 11:53 AM EDT Reason for Visit: Francie Yusuf is a 52 y.o. female who is seen in consultation per MARIA GARCÍA APRN and Zack Magana MD because of a Symptomatic bilateral thyroid nodules. History of Present Illness: She Was noted to have a thyroid nodule about [address] Maynard who follow her for amyloidosis. She had an US and was referred to Dr. Magana for US guided FNA. US revealed: [facility] - Ultrasound Thyroid - [id number] Indications F/u nodules Right Lobe Date L(cm) AP(cm) TV(cm) 11/15/10 5.3 2.2 2.2 ------- Lesions ------- # Date Location Description L AP TV (cm) 1 11/15/10 Upper lobe Heterogeneous 0.9 0.7 0.8 2 11/15/10 Mid lobe Solid with 3.2 1.2 1.7 cystic component 3 11/15/10 Lower lobe Heterogeneous 0.7 0.7 0.8 Comment: Multiple nodules seen --------- Left Lobe --------- Date L(cm) AP(cm) TV(cm) 11/15/10 4.3 1.6 1.8 ------- Lesions ------- # Date Location Description L AP TV (cm) 1 11/15/10 Upper lobe Cystic nodule 0.3 0.2 0.3 with debris 2 11/15/10 Mid lobe Heterogeneous 1.6 2.1 1.6 Comment: Multiple nodules seen ------- Isthmus ------- Measurement: 3 mm Comment: Normal texture Impression Ultrasound - Thyroid - Summary Abnormal thyroid exam- see discussion below Bilateral multiple nodule thyroids. The largest one on the left is somewhat worrisome for malignancy, with macrocalcifications and hypervascularity, so would suggest FNA. The largest nodule on the right is larger, 3.2 but appears blander, hypovascular and no calcifications. But consider FNA of these lesion also. Can not exclude lymphoma but less likely. Cytology revealed: Bilateral Nodules: Negative for Malignancy She had a 1 year follow up US that showed bilateral nodules with no changer, but she has developed worsening compression symptoms. She has a family history of thyroid disease With a mother who underwent thyroidectomy for MNG. She has no history of head or neck irradiation. She has no dysphagia or dysphonia. This has been felt on physical exam. ROS: No H/O asthma, NV, stroke, pulmonary embolus or phlebitis. Comprehensive review of systems otherwise negative and non-contributory. PMSH: Surgical history: T&A; NISSA/USO Active medical problems: amyloidosis; antiphospholipid antibody syndrome -- treated with coumadin; asthma; HLP Tobacco: (x) Former Smoker, 25 Pack-years, discontinued at age 42. ETOH: < daily I have reviewed the relevant laboratory tests and imaging studies. Allergies as of 05/21/2012 ??? (No Known Allergies) Current outpatient prescriptions ordered prior to encounter Medication Sig Dispense Refill ??? Inhalational Spacing Device (VORTEX HOLDING CHAMBER ADULT) Spcr by [facility].(Non-Drug; Combo Route) route. use with inhalers 1 each 2 ??? simvastatin (ZOCOR) 20 mg tablet Take 20 mg by mouth nightly. ??? loratadine (CLARITIN) 10 mg tablet Take 10 mg by mouth daily. ??? acetaminophen (TYLENOL EXTRA STRENGTH) 500 mg tablet Take by mouth as needed. Take 1-2 tabs of the (500mg) Tablets ??? WARFARIN SODIUM (WARFARIN ORAL) ??? fluticasone (FLOVENT HFA) 110 mcg/Actuation inhaler 2 Puff(s), Inh, Twice daily ??? Levalbuterol Tartrate (XOPENEX HFA) 45 mcg/Actuation inhaler ??? clobetasol (TEMOVATE) 0.05 % cream Apply 1 applicator topically 2 times daily. 30 g 2 PE: General: Well developed, well nourished 52 y.o. female in NAD. Skin: warm, dry, good turgor, nonicteric. Neck: She has a dominant, movable, nontender nodule in the right and left lobes of the thyroid measuring 2.0 - 2.5 cm in greatest dimension with no adenopathy. HEENT: MICHAEL, EOM's full, sclera nonicteric, otherwise unremarkable. Back: no tenderness to AP or lateral compression. Lungs: Clear BS bilaterally without wheezes, rales or rhonchi. Card: Heart sounds normal, no murmurs, gallops, rubs or S3. Extremities: warm, no edema. Neuro: Awake, alert and oriented x 3., [place] negative bilaterally. Imp: Symptomatic MNG. Plan: Recommend proceeding with total thyroidectomy. She understands the implications, indications, potential complications and agrees to proceed. Will sign in through SDS. Consent is signed. Send copy to MARIA GARCÍA APRN and Zack Magana MD, Patricio Lowe MD and Farzaneh Maynard MD. documented in this encounter Plan of Treatment Not on filedocumented as of this encounter Procedures Procedure Name Priority Date/Time Associated Diagnosis Comme nts FACIAL NERVE Routine 05/21/2012 10:32 AM EDT MONITORING, SETUP THYROIDECTOMY,TOTAL OR Routine 05/21/2012 10:32 AM EDT COMPLETE documented in this encounter Visit Diagnoses Diagnosis Thyroid nodule - Primary Nontoxic uninodular goiter documented in this encounter Care Teams Retail Field Merchandiser Relationship Specialty Start Date End Date Maria García APRN PCP - General 07/06/10 09/09/12 documented as of this encounter
--- OUTSIDE RECORDS SUMMARY | 2022-05-27 14:56 | XMS_ITS | Encounter Summary ---
:1960 Author Organization [facility] [place] [address] Care Team Providers Name Role Phone Maria Fournier APRN Primary Care Provider Reason for Referral Surgical (Routine) - Closed Specialty Diagnoses / Procedures Referred By Contact Refer red To Contact General Surgery Diagnoses Thyroid nodule Zack Magana MD Colacchio, Thomas A, [address] [place] [address] [facility] GENERAL SURGERY [place], [place] [address] Phone: Fax: Referral ID Status Reason Start Date Expiration Date Visits V isits Requested Authorized [id number] Closed Specialty 05/10/2012 11/06/2012 1 1 Service Requested Reason for Visit Reason Onset Date Comments Thyroid Problem 05/10/2012 Encounter Details Date Type Department Care Team Description 05/10/2012 Telephone Endocrinology at [facility] Nellie Murillo LPN Thyroid Problem [facility] [place] [address] Social History Tobacco Use Types Packs/Day [...] this encounter Miscellaneous Notes Telephone Encounter - Nellie Martin LPN - 05/10/2012 10:29 AM EDT Patient calls has decides she wants to have surgery for thyroid nodules. Forward to Dr Magana to place surgical referral. documented in this encounter Plan of Treatment Scheduled Referrals Name Type Priority Associated Diagnoses Order S chedule REFERRAL TO Outpatient Referral Routine Thyroid nodule Ordere d: GENERAL SURGERY 05/10/2012 documented as of this encounter Visit Diagnoses Diagnosis Thyroid nodule - Primary Nontoxic uninodular goiter documented in this encounter Care Teams Master Tax Advisor Relationship Specialty Start Date End Date Maria Fournier APRN PCP - General 07/06/10 09/09/12 documented as of this encounter
--- OUTSIDE RECORDS SUMMARY | 2022-05-27 14:56 | XMS_ITS | Encounter Summary ---
:1960 [place] [address] Care Team Providers Name Role Phone Maria Fournier APRN Primary Care Provider Encounter Details Date Type Department Care Team Description 06/01/2012 Anesthesia Event Main Operating Room Hao Griffith MD [facility] [place] [address] [facility] Suzie Parker MD [facility] [place] [address] [facility] [place] [address] Anesthesia Record Procedure Summary Procedure Name Responsible Anesthesia Start Anesthesia Stop Time Anesthesiologist Time THYROIDECTOMY, Hao Braxton MD 06/01/12 1054 06/01/12 1315 TOTAL OR COMPLETE (WRVU 15.04) (N/A Neck) Events Date Time Event Comment 06/01/2012 1046 1054 Start 1315 Stop No medications on file. Agents No agents on file. Blood No blood administrations on file. Lines, Drains, and Airways Type Details Placement Removal Incision 06/01/12; neck; 04/11/22 06/01/12 0000 by Nohemi , 04/11/22 1715 by Nohemi (LDA cleanup utility KALA Salazar RA#[id number]); 1715 (LDA cleanup utility RA#[id number]) PIV 06/01/12; 1055; 06/02/12; 06/01/12 1055 by Junior, 06/02/12 0828 by Simón, 0828 KALA Sheppard LNA documented in this encounter Social History Tobacco Use Types Packs/Day Years [...] on file documented as of this encounter OR Notes Anesthesia Postprocedure Evaluation - Hao Braxton MD - 06/02/2012 10:25 AM EDT Patient: Francie Yusuf Procedure(s) Performed: Procedure(s): THYROIDECTOMY, TOTAL OR COMPLETE FACIAL NERVE MONITORING, SETUP The patient met discharge criteria prior to my evaluation. There were no apparent complications. Anesthesia Preprocedure Evaluation - Hao Braxton MD - 05/31/2012 3:23 PM EDT Today I evaluated Francie Yusuf a 52 y.o. female. Procedure(s): THYROIDECTOMY, TOTAL OR COMPLETE FACIAL NERVE MONITORING, SETUP Patient Active Problem List Diagnoses ??? Amyloidosis cutis ??? Amyloidosis 10/29/09- eval of right medial denson lesion, [...] In addition, there is superficial anddeep perivascular Speed+, Lambda- plasma cell infiltrate. Please correlate with [...] Right adnexal cysts. 7. Status post hysterectomy. 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 ??? Thyroid nodule ??? 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 Asthma ??? Sinusitis, chronic ??? Antiphospholipid antibody syndrome ??? Edema of both legs With calf pain on reclining ??? Miscarriage One Past Medical History Diagnosis Date ??? Hypertension ??? Anti-phospholipid antibody syndrome ??? Eczema ??? Herniated disc ??? Anemia, iron deficiency ??? Asthma ??? Pneumonia X2 ??? Thyroid nodule ??? Amyloidosis cutis 2010 Past Surgical History Procedure Date ??? Bone marrow biopsy ??? Hysterectomy History Substance Use Topics ??? Smoking status: Former Smoker -- 1.5 packs/day Types: Cigarettes Quit date: 08/14/1992 ??? Smokeless tobacco: Not on file ??? Alcohol Use: 0.6 oz/week 1 Glasses of wine per week per week No Known Allergies Medications: MAR and/or home medications have been reviewed. Physical Exam: There were no vitals filed for this visit. There is no height or weight on file to calculate BMI. Airway Assessment: Mallampati: II TM distance: >3 FB Neck ROM: full Cardiovascular Assessment: Pulmonary Assessment: Dental Assessment: (+) upper dentures and lower dentures [facility] Assessment: Anesthesia Plan: ASA 3 General with intravenous induction 52F with a past medical history significant for mild asthma and cutaneous amyloidosis presenting with symptomatic multinodular goiter scheduled for thyroidectomy. Plan for GA with ETT for nerve monitoring Informed Consent: Anesthetic plan and risks discussed with patient. Plan discussed with attending and resident. [facility]. Assessment: documented in this encounter Miscellaneous Notes Addendum Note - Padma Ibarra - 06/04/2012 12:09 PM EDT Addendum created 06/04/12 1209 by Padma Ibarra Modules edited:Anesthesia Events, Anesthesia Responsible Staff documented in this encounter Plan of Treatment Not on filedocumented as of this encounter Visit Diagnoses Not on filedocumented in this encounter Care Teams Enamel Sprayer Relationship Specialty Start Date End Date Maria Fournier APRN PCP - General 07/06/10 09/09/12 documented as of this encounter
--- OUTSIDE RECORDS SUMMARY | 2022-05-27 14:56 | XMS_ITS | Encounter Summary ---
:1960 Author Organization [place] [address] Care Team Providers Name Role Phone Maria García APRN Primary Care Provider Reason for Visit Reason Comments Follow Up Surgery s/p thyroidectomy Encounter Details Date Type Department Care Team Description 07/16/2012 Office Visit General Surgery at [facility] Choi S/P complete [facility] [place] Murtaza thyroidectomy ([facility] Dx) [facility] [address] [place], [place] GENERAL SURGERY [address] [place] [address] [phone] Social History Tobacco Use Types Packs/Day Years [...] Sign Reading Time Taken Comments Blood Pressure 146/75 07/16/2012 10:53 AM EST Pulse 67 07/16/2012 10:53 AM EST Temperature - - Respiratory Rate - - Oxygen Saturation 99% 07/16/2012 10:53 AM EST Inhaled Oxygen Concentration - - Weight 88 kg (194 lb 0.1 oz) 07/16/2012 10:53 AM EST Height - - Body Mass Index 30.75 06/01/2012 10:23 AM EDT documented in this encounter Progress Notes Maurilio Choi MD - 07/16/2012 11:07 AM EST Reason for Visit: Francie Gonzales Yusuf returns. History of Present Illness: She is S/P a total thyroidectomy performed on 06/01/12 for what turned out to be a MNG. She is not having any dysphagia or dysphonia. She has no symptoms of increased or decreased T4 and is otherwise feeling well. T4/TSH today: pending PMH: Current Outpatient Prescriptions on File Prior to Visit Medication Sig Dispense Refill ??? fluticasone (FLONASE) 50 mcg/actuation nasal spray 1 spray by Each Nare route daily. 16 g 12 ??? calcium carbonate 648 mg calcium tablet Take 2 tablets by mouth 3 times daily. ??? cholecalciferol, Vitamin D3, 400 unit tablet Take 1 tablet by mouth 3 times daily. ??? levothyroxine (SYNTHROID) 125 mcg tablet Take 1 tablet by mouth every morning. 30 tablet 5 ??? Inhalational Spacing Device (VORTEX HOLDING CHAMBER ADULT) Spcr by [facility].(Non-Drug; Combo Route) route. use with inhalers 1 [...] Tartrate (XOPENEX HFA) 45 mcg/Actuation inhaler ??? OXYcodone (ROXICODONE) 5 mg immediate release tablet Take 1-2 tablets by mouth every 4 hours as needed for Pain. 30 tablet 0 Allergies as of 07/16/2012 ??? (No Known Allergies) PE: Neck: Wound is healing well with some residual postoperative swelling. Imp: Good postoperative course. Euthyroid. Plan: I have advised her that she should continue to see Dr. MARIA GARCÍA APRN and have her TFT's checkedon an annual basis. Return to clinic prn. Send copy to Dr. MARIA GARCÍA APRN. documented in this encounter Plan of Treatment Not on filedocumented as of this encounter Procedures Procedure Name Priority Date/Time Associated Diagnosis Comme nts TSH Routine 07/16/2012 10:37 AM S/P complete Results for this EST thyroidectomy procedure are in the results section. T4 TOTAL Routine 07/16/2012 10:37 AM S/P complete Results for this EST thyroidectomy procedure are in the results section. documented in this encounter Results TSH (07/16/2012 10:37 AM EST) athologist Signature TSH 3.23 0.27 - 4.20 CERNER mcIU/mL M[facility]EN[facility] Specimen Anatomical Collection Method Collection Time Receive d Time (Source) Location / / Volume Laterality Blood specimen 07/16/2012 10:37 2 (specimen) AM EST 10:53 AM EST Resulting Agency Comment Spec In Lab Maurilio Choi MD CHEMISTRY ORDERABLES Performing Organization Address City/State/[place] [address] CERNER [facility]EN[facility] T4 (07/16/2012 10:37 AM EST) athologist Signature T4, total 10.3 5.1 - 10.8 CERNER mcg/dL [facility] Comment: Reference Range: [place] Cord Blood: ??6.9-14.4 mcg/dL Females: ??7.2-14.2 mcg/dL Pediatric ranges: ??Interpret with cauti on-ranges have not been verified Specimen Anatomical Collection Method Collection Time Receive d Time (Source) Location / / Volume Laterality Blood specimen 07/16/2012 10:37 2 (specimen) AM EST 10:53 AM EST Resulting Agency Comment Spec In Lab Maurilio Choi MD CHEMISTRY ORDERABLES Performing Organization Address City/State/ZIP Code Phon e Number [address] [facility] documented in this encounter Visit Diagnoses Diagnosis S/P complete thyroidectomy - Primary Other postprocedural status documented in this encounter Care Teams Talent Management Manager Relationship Specialty Start Date End Date Maria García APRN PCP - General 07/06/10 09/09/12 documented as of this encounter
--- OUTSIDE RECORDS SUMMARY | 2022-05-27 14:56 | XMS_ITS | Encounter Summary ---
:1960 Author Organization [facility] [place] [address] Care Team Providers Name Role Phone Unknown Primary Care Provider Unavailable Reason for Visit Reason Comments Follow-up Encounter Details Date Type Department Care Team Description 02/11/2013 Office Visit Hematology and Louis Saleem MD Mycosis fungoides, Oncology at [facility] unspecified site, [facility] DR santos and [facility] organ sites (Primary [place], [place] RD-DERMATOLOGY Dx) [address] [place] [address] [phone] Social History Tobacco Use Types Packs/Day Years [...] documented as of this encounter Progress Notes Louis Saleem MD - 02/11/2013 4:31 PM EDT Date of office visit: 02/11/2013 Francieubaldo Yusuf : 1960 Provider: Louis Saleem MD Prior Skin History Nodular amyloid -rx 5mg/cc kenalog injection [place] 01/2011 Itchy rash in setting of antiphospholipid syndrome & nodular amyloidosis, hypocomplementemia -multiple topical steroids -antihistamine not helpful -resolved spontaneously Antiphospholipid antibody syndrome HPI Francie Yusuf is a 52 y.o. year old female. Notes a few new skin lesions. Interim health: Had thyroid out. New diagnosis of osteoarthritis. PAST MEDICAL HX Patient Active Problem List Diagnoses Code ??? 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 Asthma 493.90 ??? Sinusitis, chronic 473.9 ??? Antiphospholipid antibody syndrome 289.81 ??? Edema of both legs 782.3 ??? Miscarriage 634.90 ??? Thyroid nodule 241.0 ??? 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 S/P complete thyroidectomy V45.89 MEDS: Current Outpatient Prescriptions Medication Sig Dispense Refill ??? cetirizine (ZYRTEC) 10 mg tablet Take 10 mg by mouth daily. ??? fluticasone (FLONASE) 50 mcg/actuation nasal spray [...] mouth every morning. 30 tablet 5 ??? OXYcodone (ROXICODONE) 5 mg immediate release tablet Take 1-2 tablets by mouth every 4 hours as needed for Pain. 30 tablet 0 ??? Inhalational Spacing Device (VORTEX HOLDING CHAMBER ADULT) [place]cr [place] [facility]Non-Drug; Combo Route) route. use with inhalers 1 [...] Levalbuterol Tartrate (XOPENEX HFA) 45 mcg/Actuation inhaler ADR: Review of patient's allergies indicates no known allergies. FAMILY HX: SOCIAL HX: ROS General: feeling well Skin: denies other skin complaints EXAM General: NAD, pleasant, cooperative. SKIN EXAM: Exam of scalp, ears, neck, face. Exam of chest, back, arms, hands. Exam of buttocks, suprapubic skin and hips. Exam of legs and feet. No exam of genitalia. Significant skin findings: Right lower leg medial 2cm nodule, hyperpigmented, and right lower leg 1cm yellowish brown plaque, similar plaque on the anterior left lower leg. Pigmented patch right upper abdomen ASSESSMENT/PLAN 1. Nodular amyloid - no change. I discussed no intervention for this is recommended. 2. Benign nevus spilus- right upper abdomen - no change. Return to clinic: 1 year I am documenting this encounter acting as the scribe for and in the presence of Dr. Saleem: LOUIS SALEEM MD, DELIVERY ASSOCIATE I reviewed and edited this note above, a scribed service performed by my nurse, and on closure of this note I agree with the accuracy of the documentation in this encounter. Louis Saleem MD Section of Dermatology [facility] documented in this encounter Plan of Treatment Not on filedocumented as of this encounter Visit Diagnoses Diagnosis Mycosis fungoides, unspecified site, ext ranodal and solid organ sites - Primary documented in this encounter Care Teams Director Process Improvement Relationship Specialty Start Date End Date Unknown PCP - General 09/10/12 04/25/13 None documented as of this encounter
--- OUTSIDE RECORDS SUMMARY | 2022-05-27 14:56 | XMS_ITS | Encounter Summary ---
:1960 Author Organization [facility] Address [address] [place] [address] Care Team Providers Name Role Phone MorganCharlene beebe Zane CLARK Primary Care Provider Reason for Visit Reason Comments Antiphospholipid Syndrome Encounter Details Date Type Department Care Team Description 05/20/2013 [place] [facility] [place] Lowe, Cervical arthritis (Primary Dx); [facility] Plantar fasciitis, bilateral; [facility]; [place] [address] [place] [address] Antiphospholipid antibody positive; [phone] RHEUMATOLOGY Rheumatoid fact or positive DEPT. [place], [place] [address] Social History Tobacco Use Types [...] Sign Reading Time Taken Comments Blood Pressure 123/68 05/20/2013 1:45 PM EDT Pulse 69 05/20/2013 1:45 PM EDT Temperature 36.7 ??C (98.1 ??F) 05/20/2013 1:45 PM EDT Respiratory Rate - - Oxygen Saturation 97% 05/20/2013 1:45 PM EDT Inhaled Oxygen Concentration - - Weight 88.9 kg (196 lb) 05/20/2013 1:45 PM EDT Height 165.1 cm (5' 5) 05/20/2013 1:45 PM EDT Body Mass Index 32.62 05/20/2013 1:45 PM EDT documented in this encounter Patient Instructions Patient InstructionsPatricio Lowe MD - 05/20/2013 2:34 PM EDT 1. Neck pain: recommend trial of soft collar and not doing exercises for 2-3 weeks, if better let tincture of time help with neck. 2. Plantar Fasciitis INSERTS: [employer] Inserts [place] Basic Foot Orthosis Catlog number [id number] URL: http://www.[employer]/search/?[email or web address]=2255 Night Splint: Available from [employer] website above or from Sofea. Recommend dorsal night splint 3. Labs today to assess of rheumatoid arthritis risk, but I am unimpressed by exam 4. Return in 1 year. documented in this encounter Progress Notes Patricio Lowe MD - 05/20/2013 2:11 PM EDT Subjective: Patient ID: Francie Yusuf is a 53 y.o. female seen in annuals f/u for her antiphospholipid antibody syndrome treated with Coumadin since 2001 for HANSEN, facial twitching and dysesthesias, and white matterchanges on MRI with symptomatic improvement with treatment. Low titer YELENA 1:80 centromere at 2000evaluation increasing to 1:640 in 2008 and associated with anti- mitochondrial pattern. 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 Whitney and Caesar since 2009 Hypocomplementemia noted at that time. Amyloid on LE has now gone, last lesion was earlier this spring. Is being aggressively monitored by Dr. Bengston with CT scan chest/abd/neck,labs. Ig levels stable. Elevated kappa/lambda light chains. Interval History: Isolated anti-phospholipid syndrome which has been well controlled on coumadin for nearly 10 years in terms of HANSEN, paresthesias. No recurrence, no problems. Other issues: 1. LE swelling worse in summer months 2. Plantar pain in am worse upon rising or standing 3. Degenerative cervical spine disease with X-rays: Pain,stiffness or numbness, without benefit for cervical traction, right-sided 4. RA has been raised as a concern with positive RF 55 by PCP. No headaches facial twitching, dysesthesias. No obvious emergence of symptoms. Other Medical Problems 1. Cutaneous Amyloid: stable 2. Venous stasis disease ROS: Rare bleeding issues usually related to INR being high. Occasionally swollen legs, dry mouth and eyes, emerged in the last 1.5-2 years. No change with stopping loratadine. Woodstove, not using humidifier, awakens with dry mouth No Raynauds. No digital ulcers. Stays busy, exercises. Currently being followed by them. New event was thyroid surgery for nodules in June 01, 2012. Histology was benign. Feeling pretty good. Objective: Physical Exam Healthy appearing woman looking stated age in NAD. Blood pressure 123/68, pulse 69, temperature 36.7 ??C (98.1 ??F), temperature source Oral, height 165.1 cm (5' 5), weight 88.905 kg (196 lb), SpO2 97.00%.No telangectasias. No more plaques on LE, largest is 3 cm across, most are <0.5cm. Normal nailfold exam. No digital ulcers, cuticular overgrowth. HEENT: moist mucus membranes despite no drinking for hours, +salivary pooling. Mild submandibular tenderness, no parotid enlargement. Neck supple with pain on lateral flexion, tender over C7 facet, right. no bruits. UE joint exam: normal except for marichuy OA. No active synovitis Assessment and Plan: Lots of issues: 1. Antiphospholipid antibody syndrome: Stable and doing well on coumadin. Well maintained by Charlene Morgan 2. Neck pain: recommend trial of soft collar and not doing exercises for 2-3 weeks, if better let tincture of time help with neck. 3. Plantar Fasciitis INSERTS: [employer] Basic Foot Orthosis Catlog number [id number] URL: http://www.[employer]/search/?[email or web address] Night Splint: Available from [employer] website above or from Sofea. Recommend dorsal night splint 4. Labs today to assess of rheumatoid arthritis risk, but I am unimpressed by exam. Will check CCP test and CRP. 5. Return in 1 year. Level 5 follow up Patricio Lowe M.D. Addendum: Low titer positive RF. CRP 7.4 mg/L the source of which is not clear. This does not appearto be RA given lack of joint symptoms. Will send note to patient while awaiting CCP documented in this encounter Miscellaneous Notes Addendum Note - Preston Ledezma - 05/20/2013 2:59 PM EDT Addended by: PRESTON LEDEZMA on: 05/20/2013 02:59 PM Modules accepted: Orders documented in this encounter Plan of Treatment Not on filedocumented as of this encounter Procedures Procedure Name Priority Date/Time Associated Comments Diagnosis ANTI-CYCLIC Routine 05/20/2013 3:10 PM Rheumatoid factor Resu lts for this CITRULLINATED PEPTIDE EDT positive proced ure are in AB the results section. DIFFERENTIAL, Routine 05/20/2013 3:10 PM Results for this AUTOMATED EDT procedure are i n the results section. CBC (WITH DIFF) Routine 05/20/2013 3:10 PM Rheumatoid factor R esults for this EDT positive procedure are i n the results section. RHEUMATOID FACTOR, Routine 05/20/2013 3:10 PM Rheumatoid facto r Results for this QUANT EDT positive procedure are i n the results section. CRP, CARDIAC RISK (HS Routine 05/20/2013 3:10 PM Rheumatoid fa ctor Results for this CRP) EDT positive procedure are i n the results section. documented in this encounter Results (ABNORMAL) Differential, Automated (05/20/2013 3:10 PM EDT) [facility] Method Time Signature Neutrophils % 77.0 (H) 34.0 - CERNER 71.0 % MILLENNIUM Neutr Abs (ANC) 6.67 (H) 1.50 - CERNER 6.30 MILLENNIUM x10(3)/mc L Lymphocytes % 15.1 (L) 19.0 - CERNER 53.0 % MILLENNIUM Lymphocytes Abs 1.3 1.0 - 3.6 CERNER x10(3)/mc MILLENNIUM L Monocytes % 6.2 4.0 - CERNER 13.0 % MILLENNIUM Monocyte Abs 0.5 0.2 - 1.0 CERNER x10(3)/mc MILLENNIUM L Eosinophils % 1.4 0.0 - 7.0 CERNER % MILLENNIUM Eosinophils Abs 0.1 0.0 - 0.5 CERNER x10(3)/mc MILLENNIUM L Basophils % 0.2 0.0 - 2.0 CERNER % MILLENNIUM Basophils Abs 0.0 0.0 - 0.2 CERNER x10(3)/mc MILLENNIUM L Immature Gran % 0.10 0.00 - CERNER 0.66 % MILLENNIUM Comment: Immature granulocytes(IG's)percentage an d absolute [...] Location / / Volume Laterality Blood specimen 05/20/2013 3:10 PM 013 3:23 (specimen) EDT PM EDT Patricio Lowe MD HEMATOLOGY ORDERABLES Performing Organization Address City/State/ZIP Code Phon e Number [place] [id number] CERNER MILLENNIUM (ABNORMAL) Rheumatoid factor, quant (05/20/2013 3:10 PM EDT) P athologist Signature RF 22 (H) <=14 IU/mL CERNER MILLENNIUM Specimen Anatomical Collection Method Collection Time Receive d Time (Source) Location / / Volume Laterality Blood specimen 05/20/2013 3:10 PM 013 3:23 (specimen) EDT PM EDT Resulting Agency Comment Spec In Lab Patricio Lowe MD IMMUNOLOGY ORDERABLES Performing Organization Address City/State/ZIP Code Phon e Number [address] CERNER MILLENNIUM Cyclic Citrullinated Peptide (05/20/2013 3:10 PM EDT) P athologist Signature Anti-Cyc Cit <2.0 <=5.0 u/ml CERNER Peptide MILLENNIUM Specimen Anatomical Collection Method Collection Time Receive d Time (Source) Location / / Volume Laterality Blood specimen 05/20/2013 3:10 PM 013 8:08 (specimen) EDT AM EDT Resulting Agency Comment Spec In Lab Patricio Lowe MD CHEMISTRY ORDERABLES Performing Organization Address City/[facility]/ZIP Code Phon e Number [address] CERNER MILLENNIUM CBC (with Diff) (05/20/2013 3:10 PM EDT) P athologist Signature WBC 8.7 4.0 - 10.0 CERNER x10(3)/mcL MILLENNIUM RBC 5.10 3.93 - 5.22 CERNER x10(6)/mcL MILLENNIUM Hemoglobin 14.3 11.2 - 15.7 CERNER gm/dL MILLENNIUM Hematocrit 42.2 34.0 - 45.0 CERNER % MILLENNIUM MCV 82.7 79.0 - 94.0 CERNER fL MILLENNIUM MCH 28.0 26.6 - 32.2 CERNER pg MILLENNIUM MCHC 33.9 32.0 - 36.5 CERNER gm/dL MILLENNIUM Platelets 258 145 - 370 CERNER x10(3)/mcL MILLENNIUM RDWSD 39.9 35.0 - 46.0 CERNER fL MILLENNIUM RDWCV 13.2 10.9 - 14.4 CERNER % MILLENNIUM MPV 9.7 9.0 - 12.0 CERNER fL MILLENNIUM Specimen Anatomical Collection Method Collection Time Receive d Time (Source) Location / / Volume Laterality Blood specimen 05/20/2013 3:10 PM 013 3:23 (specimen) EDT PM EDT Resulting Agency Comment Spec In Lab Patricio Lowe MD HEMATOLOGY ORDERABLES Performing Organization Address [facility]/ZIP Code Phon e Number [address] [facility] High Sensitivity CRP (05/20/2013 3:10 PM EDT) P athologist Signature CRP High Sens 7.4 mg/L [facility] Comment: Interpretations: 1) For accurate cardiac [...] Location / / Volume Laterality Blood specimen 05/20/2013 3:10 PM 013 3:23 (specimen) EDT PM EDT Resulting Agency Comment Spec In Lab Patricio Lowe MD CHEMISTRY ORDERABLES Performing Organization Address City/[facility]/ZIP Code Phon e Number [address] [facility] documented in this encounter Visit Diagnoses Diagnosis Cervical arthritis - Primary Cervical spondylosis without myelopathy Plantar fasciitis, bilateral Plantar fascial fibromatosis Osteoarthritis Osteoarthrosis, unspecified whether gene ralized or localized, unspecified site Antiphospholipid antibody positive Other and unspecified nonspecific immuno logical findings Rheumatoid factor positive Other and unspecified nonspecific immuno logical findings documented in this encounter Care Teams It Risk Analyst Relationship Specialty Start Date End Date Charlene Morgan APRN PCP - General 04/26/13 06/08/15 documented as of this encounter
--- OUTSIDE RECORDS SUMMARY | 2022-05-27 14:56 | XMS_ITS | Encounter Summary ---
:1960 Author Organization [facility] [place] [address] Care Team Providers Name Role Phone Maria Fournier APRN Primary Care Provider Encounter Details Date Type Department Care Team Description 06/05/2012 Orders Only General Surgery at Maurilio Choi S/P [place] [facility] [place] Murtaza (Primary Dx) [facility] [address] [place] [address] [place] [address] [phone] Social History Tobacco Use Types Packs/Day Years [...] on filedocumented as of this encounter Results TSH (07/16/2012 10:37 AM EST) athologist Signature TSH 3.23 0.27 - 4.20 CERNER mcIU/mL MILLENNIUM Specimen Anatomical Collection Method Collection Time Receive d Time (Source) Location / / Volume Laterality Blood specimen 07/16/2012 10:37 2 (specimen) AM EST 10:53 AM EST Resulting Agency Comment Spec In Lab Maurilio Choi MD CHEMISTRY ORDERABLES Performing Organization Address City/[facility]/ZIP Code Phon e Number [address] [facility] MILLEN[facility]UM T4 (07/16/2012 10:37 AM EST) P athologist Signature T4, total 10.3 5.1 - 10.8 CERNER mcg/dL MILLENNIUM Comment: Reference Range: [place] Cord Blood: ??6.9-14.4 mcg/dL Females: ??7.2-14.2 mcg/dL Pediatric ranges: ??Interpret with cauti on-ranges have not been verified Specimen Anatomical Collection Method Collection Time Receive d Time (Source) Location / / Volume Laterality Blood specimen 07/16/2012 10:37 2 (specimen) AM EST 10:53 AM EST Resulting Agency Comment Spec In Lab Maurilio Choi MD CHEMISTRY ORDERABLES Performing Organization Address City/[facility]/ZIP Code Phon e Number [address] [facility] documented in this encounter Visit Diagnoses Diagnosis S/P thyroidectomy - Primary Other postprocedural status documented in this encounter Care Teams Software Engineering Project Manager Relationship Specialty Start Date End Date Maria Fournier APRN PCP - General 07/06/10 09/09/12 documented as of this encounter
--- OUTSIDE RECORDS SUMMARY | 2022-05-27 14:56 | XMS_ITS | Encounter Summary ---
:1960 Author Organization [facility] [place] [address] Care Team Providers Name Role Phone Unknown Primary Care Provider Unavailable Reason for Visit Reason Onset Date Comments Follow-up 02/12/2013 Discuss POC Encounter Details Date Type Department Care Team Description 02/12/2013 Telephone Hematology and Oncology Loretta Barahona, Follow-up (Discuss POC) at [facility] [place] [address] Social History Tobacco Use Types Packs/Day [...] this encounter Miscellaneous Notes Telephone Encounter - Loretta Barahona, RN - 02/12/2013 11:49 AM EDT Received request from Dr Valera with request to contact pt re CT scan scheduling. She will not order CT scan until RTC in 1 year. She states that last CT looked good and she wants to minimize radiation exposure. Spoke to pt to discuss MD instruction, aware that CT will not be ordered until RTC as indicated above. Discussed contacting clinic office with further questions or concerns. documented in this encounter Plan of Treatment Not on filedocumented as of this encounter Visit Diagnoses Not on filedocumented in this encounter Care Teams Therapeutic Recreation Assistant Relationship Specialty Start Date End Date Unknown PCP - General 09/10/12 04/25/13 None documented as of this encounter
--- OUTSIDE RECORDS SUMMARY | 2022-05-27 14:56 | XMS_ITS | Encounter Summary ---
:1960 Author Organization [facility] Address [address] [place] [address] Care Team Providers Name Role Phone Maria Fournier APRN Primary Care Provider Encounter Details Date Type Department Care Team Description 03/13/2012 Orders Only Hematology and Farzaneh Valera cutis [place] [facility] [place] (Primary Dx) [facility] [address] [place] H[place]Y/ONCOLOGY [address] DEPT. [phone] [place], [place] [address] (Wo rk) Social History Tobacco [...] this encounter Results Free Light Chains, Serum (02/11/2013 2:49 PM EDT) P athologist Signature [place] Free 1.75 0.33 - CERNER Light Chains 1.94 mg/dL MILLENNIUM Lambda Free 1.19 0.57 - CERNER Light Chains 2.63 mg/dL MILLENNIUM [place]/Lambda 1.4706 0.2600 - CERNER Free Light 1.6500 MILLENNIUM Chain Ratio Specimen Anatomical Collection Method Collection Time Receive d Time (Source) Location / / Volume Laterality Blood specimen 02/11/2013 2:49 PM 013 3:03 (specimen) EDT PM EDT Resulting Agency Comment Spec In Lab Farzaneh Valera MD CHEMISTRY ORDERABLES Performing Organization Address City/[facility] Phon e Number [address] CERNER MILLENNIUM Protein Electrophoresis, serum (02/11/2013 2:49 PM EDT) Patholo gist Method Time Signature Total Prot 6.4 6.1 - 8.0 CERNER Elec gm/dL MILLENNIUM Albumin Elect 4.22 3.60 - 6.00 CERNER gm/dL MILLENNIUM Alpha1-Globul 0.21 0.10 - 0.30 CERNER in gm/dL MILLENNIUM Alpha2-Globul 0.73 0.40 - 0.90 CERNER in gm/dL MILLENNIUM Beta Globulin 0.56 0.50 - 1.00 CERNER gm/dL MILLENNIUM Gamma 0.68 0.50 - 1.30 CERNER Globulin gm/dL MILLENNIUM M1 Band None None CERNER Detected Detected MILLENNIUM gm/dL Scan See Note CERNER MILLENNIUM Comment: Please see scanned report in art Review under the [facility] Laboratory Heading. Specimen Anatomical Collection Method Collection Time Receive d Time (Source) Location / / Volume Laterality Blood specimen 02/11/2013 2:49 PM 013 3:03 (specimen) EDT PM EDT Narrative This result has an attachment that is no t available. Resulting Agency Comment Spec In Lab Farzaneh Valera MD CHEMISTRY ORDERABLES Performing Organization Address City/[facility]/ZIP [facility] Phon e Number [address] CERNER MILLENNIUM (ABNORMAL) Comprehensive metabolic panel (non-fasting) (02/11/2013 2:49 PM EDT) P athologist Signature Glucose Lvl 92 60 - 199 CERNER mg/dL MILLENNIUM Comment: Diabetes: >=200 mg/dL plus symp toms BUN 10 8 - 18 mg/dL CERNER MILLENNIUM Creatinine 0.62 (L) 0.70 - 1.20 mg/dL CERNER MILL ENNIUM Comment: Please note that the pediatric reference intervals supplied above were not validated at [facility]. Results from [...] estions. Chloride 104 98 - 107 mmol/L CERNER MILLENN IUM CO2 24 22 - 31 mmol/L CERNER MILLENNI UM Anion Gap 12 5 - 15 mmol/L CERNER MILLENNIU M Calcium 8.6 8.5 - 10.5 mg/dL CERNER JARETH NIUM Total Protein 6.8 6.4 - 8.3 gm/dL CERNER MIL LENNIUM Albumin 4.4 3.2 - 5.2 gm/dL CERNER MILLENN IUM AST 27 0 - 30 unit/L CERNER MILLENNIU M ALT 25 0 - 30 unit/L CERNER MILLENNIU M Alk Phos 79 40 - 104 unit/L CERNER MILLENN IUM Total Bilirubin 0.2 0.2 - 1.3 mg/dL CERNER M ILLENNIUM [...] the following links into your internet browser. http://www.nkdep.nih.gov/lab-evaluation. shtml http://www.kidney.org/professionals/ Specimen Anatomical Collection Method Collection Time Receive d Time (Source) Location / / Volume Laterality Blood specimen 02/11/2013 2:49 PM 013 3:03 (specimen) EDT PM EDT Resulting Agency Comment Spec In Lab Farzaneh Valera MD CHEMISTRY ORDERABLES Performing Organization Address City/[facility]/[place] [address] CERNER MILLENNIUM CBC (with Diff) (02/11/2013 2:49 PM EDT) P athologist Signature WBC 7.0 4.0 - 10.0 CERNER x10(3)/mcL MILLENNIUM RBC 5.02 3.93 - 5.22 CERNER x10(6)/mcL MILLENNIUM Hemoglobin 14.3 11.2 - 15.7 CERNER gm/dL MILLENNIUM Hematocrit 41.4 34.0 - 45.0 CERNER % MILLENNIUM MCV 82.5 79.0 - 94.0 CERNER fL MILLENNIUM MCH 28.5 26.6 - 32.2 CERNER pg MILLENNIUM MCHC 34.5 32.0 - 36.5 CERNER gm/dL MILLENNIUM Platelets 274 145 - 370 CERNER x10(3)/mcL MILLENNIUM RDWSD 40.5 35.0 - 46.0 CERNER fL MILLENNIUM RDWCV 13.5 10.9 - 14.4 CERNER % MILLENNIUM MPV 9.6 9.0 - 12.0 CERNER fL MILLENNIUM Specimen Anatomical Collection Method Collection Time Receive d Time (Source) Location / / Volume Laterality Blood specimen 02/11/2013 2:49 PM 013 3:03 (specimen) EDT PM EDT Resulting Agency Comment Spec In Lab Farzaneh Valera MD HEMATOLOGY ORDERABLES Performing Organization Address City/[facility]/[place] [address] [facility] documented in this encounter Visit Diagnoses Diagnosis Amyloidosis cutis - Primary Other amyloidosis documented in this encounter Care Teams Concrete Fence Builder Relationship Specialty Start Date End Date Maria Fournier APRN PCP - General 07/06/10 09/09/12 documented as of this encounter
--- OUTSIDE RECORDS SUMMARY | 2022-05-27 14:56 | XMS_ITS | Encounter Summary ---
:1960 Author Organization [place] [address] Care Team Providers Name Role Phone Charlene Morgan APRN Primary Care Provider Encounter Details Date Type Department Care Team Description 03/10/2014 Hospital Encounter Hematology and Oncol ogy at [facility] [place] [address] Social History Tobacco Use Types Packs/Day [...] Sig Dispensed Refills Start Date End Date simvastatin (ZOCOR) 20 mg Take 20 mg by mouth 0 tablet nightly. fexofenadine (WAQAR) 60 Take 180 mg by mouth 0 01/28/2015 mg tablet daily. lisinopril Take 10 mg by mouth 0 01/22 (PRINIVIL;ZESTRIL) 10 mg daily. tablet levothyroxine (SYNTHROID) Take 1 tablet by 30 tablet 5 05/1401/22/2015 125 mcg tablet mouth every morning. [place] [facility] [place]; 1 each 2 012 01/22/2015 Device (V[employer] HOLDING Combo Route) route. CHAMBER ADULT) use with inhalers SpcrIndications: Asthma acetaminophen (TYLENOL Take by mouth as 0 011 02/22/2017 EXTRA STRENGTH) 500 mg needed. Reported on tablet 09/19/2016 WARFARIN SODIUM (WARFARIN 0 10/25/2010 01/28/2015 ORAL) fluticasone (FLOVENT HFA) 2 Puff(s), Inh, 0 10/2501/22/2015 110 mcg/Actuation inhaler Twice daily Levalbuterol Tartrate 0 10/25/201006/2015 (XOPENEX HFA) 45 mcg/Actuation inhaler documented as of this encounter Plan of Treatment Not on filedocumented as of this encounter Visit Diagnoses Not on filedocumented in this encounter Care Teams Glue Jointer Operator Relationship Specialty Start Date End Date Charlene Morgan APRN PCP - General 04/26/13 06/08/15 documented as of this encounter
--- OUTSIDE RECORDS SUMMARY | 2022-05-27 14:56 | XMS_ITS | Encounter Summary ---
:1960 Author Organization [facility] [place] [address] Care Team Providers Name Role Phone ShantanuMaria singer APRN Primary Care Provider Reason for Visit Reason Comments Follow-up Encounter Details Date Type Department Care Team Description 03/12/2012 Office Visit Hematology and Kelsey Whitney MD Amyloidosis of skin Oncology at [facility] (Primary Dx) [facility] [address] [place], [place] RD-DERMATOLOGY [address] [place] [address] [phone] Social History Tobacco Use Types Packs/Day Years [...] Sign Reading Time Taken Comments Blood Pressure 150/90 03/12/2012 1:53 PM EDT Pulse - - Temperature - - Respiratory Rate - - Oxygen Saturation - - Inhaled Oxygen Concentration - - Weight 85.2 kg (187 lb 13.3 oz) 03/12/2012 1:53 PM EDT Height - - Body Mass Index 31.26 09/12/2011 1:13 PM EST documented in this encounter Progress Notes Kelsey Whitney MD - 03/12/2012 2:[address] [facility] Francie Yusuf : 1960 Physician: Kelsey Whitney MD Date of service: 03/12/2012 Prior Skin History Nodular amyloid -rx 5mg/cc kenalog injection [place] 01/2011 Itchy rash in setting of antiphospholipid syndrome & nodular amyloidosis, hypocomplementemia -multiple topical steroids -antihistamine not helpful -resolved spontaneously Antiphospholipid antibody syndrome HPI: Ms. Francie Yusuf is a 52 y.o. 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 Reason for visit: Follow-up- nodular amyloidosis. She has been well. 2 weeks ago had a severe sunburn on the bilateralLE and there is some remaining inflammation there and peeling. She has not noticed any new lesions consistent with nodular amyloid. She reports no changes in her health. She continues to have some mild swelling in the bilateral LE. She continues on coumadin for antiphospholipid ab syndrome and she will see Dr. Lowe next month. PROBLEM LIST: 1. Hypertension. 2. Antiphospholipid syndrome. [...] the time. 7. with one miscarriage. 8. Asthma and chronic allergic rhinitis 9. Pneumonia times two. 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 Followed by [facility] and [facility]. W/U to date w/ neg ECHO at [facility]. CT w/ one para-aortic 2cm LN which we will follow. Neg SPEP and 24 hour urine at [facility]. Neg fat pad biopsy. BMBx not yet completed. a. repeat CT, February 2010, with no pathologically enlarged adenopathy. Bone marrow biopsy negative foramyloid and lymphoma.. Past Medical History: Patient Active Problem List Diagnoses Code ??? 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 Asthma 493.90AE ??? Sinusitis, chronic 473.9AG ??? Antiphospholipid antibody syndrome 289.81DA ??? Edema of both legs 782.3BX ??? Miscarriage 634.90H ??? Thyroid nodule 241.0B ??? Amyloidosis 277.30B ??? Amyloidosis cutis 277.39CB Medications: Current outpatient prescriptions ordered prior to encounter Medication Sig Dispense Refill ??? Inhalational Spacing Device (V[employer] HOLDING CHAMBER ADULT) Spcr by [facility]Non-Drug; Combo Route) route. use with inhalers 1 each 2 ??? simvastatin (ZOCOR) 20 mg tablet Take 20 mg by mouth nightly. ??? loratadine (CLARITIN) 10 mg tablet Take 10 mg by mouth daily. ??? WARFARIN SODIUM (WARFARIN ORAL) ??? fluticasone (FLOVENT HFA) 110 mcg/Actuation inhaler 2 Puff(s), Inh, Twice daily ??? Levalbuterol Tartrate (XOPENEX HFA) 45 mcg/Actuation inhaler ??? clobetasol (TEMOVATE) 0.05 % cream Apply 1 applicator topically 2 times daily. 30 g 2 ??? acetaminophen (TYLENOL EXTRA STRENGTH) 500 mg tablet Take by mouth as needed. Take 1-2 tabs of the (500mg) Tablets ??? DISCONTD: multivitamin (THERAGRAN) tablet Take 1 tablet by mouth daily. Allergies: No Known Allergies Family History: Social History: Review of Systems: - General: Feels well. - Skin: As per HPI; no other skin concerns. Examination - Constitutional: Patient was alert, well-appearing and in no noticeable distress. - Skin: A full skin examination was performed. This includes the head, neck, face and scalp including behind the ears. The chest, abdomen, back, and axillae, as well as the arms, hands, palms, fingers.Legs, feet, toes and soles were also examined. Buttocks and breasts were also examined with patient consent. Genitalia were not examined. Specific skin findings: bilateral LE eythema. Medial right LE with ~3.5 x 1.5 cm boggy oval brownishnodule. There are a couple other more flesh colored papulonodules on that leg. Recent Results (from the past 24 hour(s)) CBC (WITH DIFF) Component Value Range ??? WBC 6.8 4.0 - 10.0 (x10(3)/mcL) ??? RBC 4.94 3.93 - 5.22 (x10(6)/mcL) ??? Hemoglobin 13.8 11.2 - 15.7 (gm/dL) ??? Hematocrit 40.0 34.0 - 45.0 (%) ??? MCV 81.0 79.0 - 94.0 (fL) ??? MCH 27.9 26.6 - 32.2 (pg) ??? MCHC 34.5 32.0 - 36.5 (gm/dL) ??? Platelets 258 145 - 370 (x10(3)/mcL) ??? RDWSD 41.4 35.0 - 46.0 (fL) ??? RDWCV 14.0 10.9 - 14.4 (%) ??? MPV 9.4 9.0 - 12.0 (fL) COMPREHENSIVE METABOLIC PANEL (NON-FASTING) Component Value Range ??? Glucose Lvl 99 60 - 199 (mg/dL) ??? BUN 9 8 - 18 (mg/dL) ??? Creatinine 0.65 (*) 0.70 - 1.20 (mg/dL) ??? Sodium 140 135 - 145 (mmol/L) ??? Potassium 3.8 3.5 - 5.0 (mmol/L) ??? Chloride 104 98 - 107 (mmol/L) ??? CO2 27 22 - 31 (mmol/L) ??? Anion Gap 9 5 - 15 (mmol/L) ??? Calcium 8.6 8.5 - 10.5 (mg/dL) ??? Total Protein 6.7 6.4 - 8.3 (gm/dL) ??? Albumin 4.2 3.2 - 5.2 (gm/dL) ??? AST 23 0 - 30 (unit/L) ??? ALT 18 0 - 30 (unit/L) ??? Alk Phos 83 40 - 104 (unit/L) ??? Total Bilirubin 0.3 0.2 - 1.3 (mg/dL) ??? Bili, Direct 0.1 0.0 - 0.3 (mg/dL) ? ? Estimated GFR >60 >=60 PROTEIN ELECTROPHORESIS, SERUM Component Value Range ??? Total Prot Elec 6.4 6.1 - 8.0 (gm/dL) IMMUNOGLOBULINS, QUANTITATIVE Component Value Range ??? IgG 822 700 - 1600 (mg/dL) ??? IgA 83 70 - 400 (mg/dL) ??? IgM 299 (*) 40 - 230 (mg/dL) DIFFERENTIAL, AUTOMATED Component Value Range ??? Neutrophils % 70.6 34.0 - 71.0 (%) ??? Neutr Abs (ANC) 4.77 1.50 - 6.30 (x10(3)/mcL) ??? Lymphocytes % 15.1 (*) 19.0 - 53.0 (%) ??? Lymphocytes Abs 1.0 1.0 - 3.6 (x10(3)/mcL) ??? Monocytes % 11.8 4.0 - 13.0 (%) ??? Monocyte Abs 0.8 0.2 - 1.0 (x10(3)/mcL) ??? Eosinophils % 2.2 0.0 - 7.0 (%) ??? Eosinophils Abs 0.2 0.0 - 0.5 (x10(3)/mcL) ??? Basophils % 0.3 0.0 - 2.0 (%) ??? Basophils Abs 0.0 0.0 - 0.2 (x10(3)/mcL) ??? Immature Gran % 0.00 0.00 - 0.66 (%) ??? Cheryl Gran Abs 0.00 0.00 - 0.05 (x10(3)/mcL) Assessment/Plan 1. Nodular amyloid. Stable, no new lesions. 2. Patient usually also sees Dr. Valera; I will forward this note to her to see if she wishes to make a f/u visit. Additionally, last year patient had thyroid U/S and biopsy of 2 nodules; f/u U/S wasrecommended. Patient recalled the need for this f/u exam. She does not desire to see same provider if further evaluation is needed. I will Have to find out who else she could see for this and arrange that f/u. 3. F/u with me in 1 year, sooner prn. RTC Instructed to call for questions/concerns. Kelsey Whitney MD Section of Dermatology [facility] documented in this encounter Plan of Treatment Not on filedocumented as of this encounter Visit Diagnoses Diagnosis Amyloidosis of skin - Primary Amyloidosis, unspecified documented in this encounter Care Teams Food Court Team Member Relationship Specialty Start Date End Date Maria Fournier APRN PCP - General 07/06/10 09/09/12 documented as of this encounter
--- OUTSIDE RECORDS SUMMARY | 2022-05-27 14:56 | XMS_ITS | Encounter Summary ---
:1960 Author Organization [place] [address] Care Team Providers Name Role Phone MorganPariblanco Degroot APRN Primary Care Provider Encounter Details Date Type Department Care Team Description 01/22/2015 Surgery Director Nicu Jarett Lange, CARDIAC CATHETERIZATION [facility] [place] [address] CARDIOLOGY DEPT. [phone] [place], [place] [address] (Wo rk) Social History Tobacco [...] Sign Reading Time Taken Comments Blood Pressure 128/79 01/22/2015 2:00 PM EDT Pulse 91 01/22/2015 2:00 PM EDT Temperature 36.5 ??C (97.7 ??F) 01/22/2015 1:38 PM EDT Respiratory Rate 24 01/22/2015 2:00 PM EDT Oxygen Saturation 98% 01/22/2015 2:00 PM EDT Inhaled Oxygen Concentration - - Weight 92.8 kg (204 lb 9.4 oz) 01/22/2015 1:38 PM EDT Height 167.6 cm (5' 6) 01/22/2015 1:38 PM EDT Body Mass Index 31.88 01/22/2015 1:38 PM EDT documented in this encounter Discharge Summaries Jese Ortiz - 01/28/2015 10:01 AM EDT Discharge Summary Patient Name: Francie Gonzales Yusuf Patient Age: 54 y.o. Language: Gabonese Race: White Ethnicity: Not nor Admit date: 01/22/2015 Discharge date and time: 01/28/2015 6 PM Attending Physician: Linden Pacheco MD Discharge Physician: Jese Otriz MD Follow-up Recommendations for Providers: Patient admitted [...] to this hospitalization, please contact your regular Client Service Representative or [facility] Cardiology clinic. Issues after hours and on weekends will be handled by the Restaurant Crew Person on-call ([phone] then ask for on-call hourly sign language interpreter). Discharge Diagnoses (Hospital Problems) and Secondary Diagnoses [...] mEq PO She was subsequently transferred via [facility] to [facility] for continued care. Hospital Course: Francie was admitted to the [facility] on 01/22 with hemopericardium producing pericardial tamponade. [...] 3 Lytes Recent Labs 01/28/15 0342 01/27/15 0434 01/26/15 0344 NA 140 138 141 K 3.8 4.4 3.7 CL 99 99 101 CO2 29 26 26 BUN 14 10 10 CREATININE 0.75 0.60* 0.57* Last 3 Coags Recent Labs 01/28/15 0342 01/27/15 0434 01/26/15 0344 PT 14.6 16.2* 16.7* INR 1.1 1.2* [...] 25 mg Tab Commonly known as: HYDRODIURIL Zfatu-DM8-KUY-XHC-DF7-Sor-Astx 1000-130(40-80) mg Cap traMADol 50 mg Tab [...] heard from them by next week (call [phone] to reach the [facility] [place] and then ask to be connected to rheumatology clinic scheduling) Hematology Provider Dr. Krissy Orosco March 03 @ 10:30 AM Your Inpatient Doctor(s) at [facility]: Attending Client Service Representative: Restaurant Crew Person: Dr. Guerra Medicine Residents: Drs. Ortiz/Tyrone General Instructions None Future Appointments Provider Department Dept Phone 03/03/2015 10:30 AM Krissy Orosco MD [facility] Hem Onc [phone] Discharge References/Attachments None documented in this encounter [...] heard from them by next week (call [phone] to reach the [facility] [place] and then ask to be connected to rheumatology clinic scheduling) Hematology Provider Dr. Krissy Orosco March 03 @ 10:30 AM Your Inpatient Doctor(s) at [facility]: Attending Client Service Representative: Restaurant Crew Person: Dr. Guerra Medicine Residents: Drs. Ortiz/Tyrone documented [...] retesting. Eber Bolden MD Hematology/Oncology fellow Pager [phone]*+*+*+*+*+*+*+*+*+*+*+*+*+*+*+*+*+*+*+*+*+*+*+*+*+*+*+*+*+*+*+*+*+*+*+*+*+* Thrombosis Attending Physician I have independently [...] panel at that time. Krissy Orosco MD HamiltonTraci Madi - 01/28/2015 5:52 AM EDT Inpatient Cardiology Progress Note: Name: Francie Yusuf : 1960 LOS: 6 days Location: [address] [place] [address]B ID: Francie Yusuf is a 54 year [...] DVT via duplex study; anticipate discharge to [facility] pending results of those studies, with close PCP, heme and rheum follow up. Plan: # Hemopericardium with tamponade, resolved - thought possibly secondary to supratherapeutic INR, ?viral pericarditis - s/p pericardiocentesis 01/22 - rheumatology consulted, question of pleuropericarditis secondary to autoimmune process - follow up additional lab work: YELENA, dsDNA, C3, C4, CH50, ANITA, TOOL MAKER BENCH, anti-Sm Ab - hematology consulted, seek to [...] Medicine, PGY-1 Cardiology S2 team pager # [phone] 01/28/2015 Associated attestation - Linden Pacheco MD [...] Detailed in discharge summary. Linden Pacheco MD, [facility] Edwina Escobedo PA - 01/27/2015 3:37 PM EDT VIR Note: left chest tube removal outputs < 150 cc in 24 hours, team requesting removal The retention suture/chest tube were cut and the tube removed. A sterile occlusive dressing with vaseline gauze was then applied. The patient tolerated the procedure well. No immediate complications noted. raci Schneider - 01/27/2015 5:33 AM EDT Inpatient Cardiology Progress Note: Name: Francie Yusuf : 1960 LOS: 5 days Location: 449/449-B ID: Francie Yusuf is [...] calves Labs Recent Labs 01/27/15 0434 01/26/15 03401/25/15 0455 WBC 6.8 5.6 6.9 HGB 11.7 9.8* 8.9* HCT 35.1 29.4* 26.7* PLATELET 472* 432* 385* Recent Labs 01/27/15 0434 01/26/15 0344 01/25/15 0455 NA 138 141 140 K 4.4 3.7 3.7 CL 99 101 103 CO2 26 26 29 BUN 10 10 12 CREATININE 0.60* 0.57* 0.57* Recent Labs 01/27/15 0434 01/26/1534301/25/15 0455 CALCIUM 8.0* 7.7* 7.7* Recent Labs 01/24/15 0514 01/23/15 0325 01/22/15 1400 BILITOT 0.4 0.5 0.6 BILIDIR 0.2 0.2 0.2 AST 16 26 33* ALT 26 33* 42* ALKPHOS 126* 119* 137* Recent Labs 01/27/15 0434 01/26/15 03401/25/15 0455 INR 1.2* 1.3* 1.4* PTT 32 [...] work: YELENA, dsDNA, C3, C4, CH50, ANITA, TOOL MAKER BENCH, anti-Sm Ab - prednisone 20 mg PO [...] Medicine, PGY-1 Cardiology S2 team pager # [phone] 01/27/2015 Associated attestation - Linden Pacheco MD [...] safety of withholding warfarin Linden Pacheco MD, [facility], [facility] Jovanni Tamayo MD - 01/26/2015 4:23 PM [...] CXR and echocardiogram. She was transferred to [facility] s/p IR guided drainage of 70cc of [...] YELENA, dsDNA, C3, C4, CH50 and ANITA, TOOL MAKER BENCH and Rees Ab - We would like to continue anticoagulation but would appreciate Hematology/Coagulation team opinionon anticoagulation and if anticoagulation favored what would be most appropriate agent in her case. We will continue to follow with you. Please call on-call Rheumatology Fellow with questions Recommendations discussed with Cardiology team and Rheumatology attending. Dr. Tamayo. Cheri Dorman MD Rheumatology Fellow #[phone] I have seen the patient and reviewed [...] Intake/Output Summary (Last 24 hours) at 01/26/15 0618 Last data filed at 01/26/15 0221 Gross [...] Yusuf : 1960 LOS: 4 days Location: [address] [place] [address] ID: Francie Yusuf is a 54 year [...] Vitals for the past 168 hrs: Weight 06/15/15 0444 95.437 kg (210 lb 6.4 oz) [...] over bilateral calves Labs Recent Labs 01/26/15 0344 01/25/15 0455 01/24/15 1516 WBC 5.6 6.9 9.3 HGB 9.8* 8.9* 10.0* HCT 29.4* 26.7* 29.9* PLATELET 432* 385* 419* Recent Labs 01/26/15 0344 01/25/15 0455 01/24/15 0514 NA 141 140 139 K 3.7 3.7 3.5 CL 101 103 98 CO2 26 29 29 BUN 10 12 18 CREATININE 0.57* 0.57* 0.64* Recent Labs 01/26/15 0344 01/25/15 0455 01/24/15 [...] Medicine, PGY-1 Cardiology S2 team pager # [phone] 01/26/2015 Associated attestation - Linden Pacheco MD [...] pericardial and pleural space. Linden Pacheco MD, FAJADE, FACC Shadia Rodriguez RN - 01/25/2015 8:42 PM EDT Pt had CT placed for left sided pleural effusion. Drained 125 mL from 1515 to 1730, MD aware. VSS. Pt c/o of positional pain with CT, relieved with tylenol. Shadia Rodriguez, RN Andressa Duckworth RN - 01/25/2015 2:00 PM EDT ANGIO NURSING DATABASE Name: FRANCIE YUSUF Date of : 1960 AGE 54 y.o. Address: [facility] [address] [facility] [address] (home) [phone] (work) Mobile: No relevant phone numbers on [...] OR COMPLETE performed by LINDA RANGEL at [facility] MAIN OR ??? Somatosensory test, any/all per. nerves, trunk or head 06/01/2012 FACIAL NERVE MONITORING, SETUP performed by LINDA RANGEL at [facility] MAIN OR Date/Procedure Med's given/comments 01/25/15 left [...] tablet by mouth daily. Yes PROVIDER, HISTORICAL Jjoek-JG6-RCC-WKF-TR0-Qwq-Astx 1000-130(40-80) mg Capsule Take 1 capsule by [...] informed this patient that they require a route sales delivery driver to be present and in the building to drive them home after this procedure. In the absence of a route sales delivery driver, IR will not beable to perform this procedure and will need to reschedule. Pt verbalized understanding of these inst ructions during the pre-procedure education via phone. (initials) Traci Hansen - 01/25/2015 5:23 AM EDT Inpatient Cardiology Progress Note: Name: Francie Yusuf : 1960 LOS: 3 days Location: 449/449-B ID: Francie Yusuf is [...] Medicine, PGY-1 Cardiology S2 team pager # [phone] 01/25/2015 Associated attestation - Linden Pacheco MD [...] transthoracic echocardiogram tomorrow to reassess pericardial process Linden Pacheco MD, [facility] Anna Ingram RN - 01/24/2015 [...] %-98 %] Labs: Recent Labs 01/24/15 1516 01/24/1514 01/23/15 0325 WBC 9.3 9.9 10.0 HGB 10.0* 9.3* 9.5* HCT 29.9* 27.9* 28.3* PLATELET 419* 390* 403* Recent Labs 06/13/51301/23/1532401/22/154 01/22/15 1400 NA 139 141 -- 132* K 3.5 4.0 3.5 3.3* CL 98 98 -- 87* CO2 29 29 -- 25 BUN 18 21* -- 20* CREATININE 0.64* 0.80 -- 0.71 Recent Labs 01/24/15 0514 01/23/15 0325 01/22/15 1400 AST 16 26 33* ALT 26 33* 42* ALKPHOS 126* 119* 137* BILITOT 0.4 0.5 0.6 BILIDIR 0.2 0.2 0.2 Recent Labs 01/24/15 0514 01/23/15 0325 01/22/15 1400 PT 26.1* 28.1* 57.1* INR 2.2* [...] MD Fellow, Vascular and Interventional Radiology Pager: [phone] Galo Hammer MD - 01/24/2015 6:11 AM EDT Inpatient Cardiology Progress Note: Name: Francie Yusuf : 1960 LOS: 2 days Location: [address] [place] [address] ID: Francie Yusuf is a 54 year [...] very reduced inferior 2/3rd L posterior (also lgpx-2-dyqnhxrkjc) Abd: Soft, mildly distended, non-tender, NABS, no masses appreciated EXT: 1+ edema tibial (stable) in bilateral lower extremities, no cyanosis or clubbing, intact distalpulses Skin: Lower extremity venous stasis changes, hyperpigmented nodules over bilateral calves Labs Recent Labs 01/24/1551301/23/1532401/22/15 1400 WBC 9.9 10.0 12.9* HGB 9.3* 9.5* 9.9* HCT 27.9* 28.3* 29.1* PLATELET 390* 403* 493* Recent Labs 01/24/1551301/23/1532401/22/15203301/22/15 1400 NA 139 141 -- 132* K 3.5 4.0 3.5 3.3* CL 98 98 -- 87* CO2 29 29 -- 25 BUN 18 21* -- 20* CREATININE 0.64* 0.80 -- 0.71 Recent Labs 01/24/1551301/23/15 0325 01/22/15 1400 CALCIUM 7.7* 7.9* 7.7* Recent Labs 01/24/15 0501/23/15 0325 01/22/15 1400 BILITOT 0.4 0.5 0.6 [...] Hammer MD Cardiology S2 team pager # [phone] 01/24/2015 Associated attestation - Linden Pacheco MD [...] chest 3. Vit. K Linden Pacheco MD, [facility] Traci Hansen - 01/23/2015 5:11 AM EDT Inpatient Cardiology Progress Note: Name: Francie Yusuf : 1960 LOS: 1 days Location: 20/CV20-A ID: Francie Yusuf is a 54 year [...] spontaneously, no focal deficits Labs Recent Labs 01/23/1532401/22/15 1400 WBC 10.0 12.9* HGB 9.5* 9.9* HCT 28.3* 29.1* PLATELET 403* 493* Recent Labs 01/23/1532401/22/154 01/22/15 1400 NA 141 -- 132* K 4.0 3.5 3.3* CL 98 -- 87* CO2 29 -- 25 BUN 21* -- 20* CREATININE 0.80 -- 0.71 Recent Labs 01/23/1532401/22/15 1400 CALCIUM 7.9* 7.7* Recent Labs 01/23/1532401/22/15 1400 BILITOT 0.5 0.6 BILIDIR 0.2 0.2 AST 26 33* ALT 33* 42* ALKPHOS 119* 137* Recent Labs 01/23/15 0325 01/22/15 1400 INR 2.4* 5.9* PTT 45* 56* [...] elevated at 5.2); she denies recent trauma, NC, prior pericardiotomy or mediastinal radiation. She denied medication changes with theexception of new qsbj-hlg-pxfzlta vitamin D and calcium supplementation. Additional workup [...] and discuss its future role with her professor of vegetable science, Dr. Lowe. Additional workup today to include [...] INR (>9.2) - INR on admission to [facility] 5.9, currently 2.4 s/p vitamin K and [...] Internal Medicine Cardiology S2 team pager # [phone] 01/23/2015 Associated attestation - Linden Pacheco MD [...] Pull pericardial catheter Linden Pacheco MD, FA, [facility] documented in this encounter H&P Notes Yury Colon MD - 01/22/2015 2:18 PM EDT [facility] Department of Cardiology Inpatient History and Physical Note Patient info: Francie Yusuf 1960 [id number] CHARLENE MORGAN, PHYSICIAN RELATIONS SPECIALIST Date of Admission: 01/22/2015 ( Hospital Day [...] mEq PO [facility] for continued care. ROS: Constitutional - Negative [...] OR COMPLETE performed by LINDA RANGEL at [facility] MAIN OR ??? Somatosensory test, any/all per. nerves, trunk or head 06/01/2012 FACIAL NERVE MONITORING, SETUP performed by LINDA RANGEL at [facility] MAIN OR Medication History: Outpatient Prescriptions Marked [...] Take 1 tablet by mouth daily. ??? Ntglx-BR5-OCC-ZCC-KY8-Bpe-Astx 1000-130(40-80) mg Capsule Take 1 capsule by [...] 168 hours. No results for input(s): PHART, QXG4RXL, PO2ART, QPC6NHV in the last 168 hours. Recent Labs [...] or hypothyroidism; (no history of recent trauma, NC, prior pericardiotomy or mediastinal radiation). She remains hemodynamically stable, with low suspicion for aortic dissection or free wall rupture. TTE, CXR, and CT of the chest are pending; anticipate further evaluation in cath lab nurse this afternoon. Supratherapeutic INR is of unclear etiology; has dropped to 5.9 following vitamin K administration, and will administer FFP prior to transfer to cath lab nurse. Plan: # Pericardial effusion with tamponade, unclear etiology - TTE pending - CXR pending - chest CT pending - anticipate transfer to cath lab nurse thereafter for pericardial drainage # Antiphospholipid antibody syndrome on warfarin, with supratherapeutic INR (>9.2) - hold warfarin; INR on admission to [facility] 5.9 - s/p vitamin K 2.5 mg [...] PGY-1, Internal Medicine Cardiology, S2 Service Pager [phone] 01/22/2015 I have interviewed and examined this patient, reviewed our findings and recommendations with her Fern agree with Dr. Hansen's note. documented in this encounter Procedure Notes Edwina Chavez MD - 01/25/2015 2:21 PM EDT Vascular and Interventional Radiology Procedure Note Procedure: US-guided chest tube placement A#: [id number] Indication: 54 y.o. female w/ h/o antiphospholipid [...] of Care Goal: Plan of Care Review 01/24/1562901/27/151999 Plan of Care Review Plan of Care [...] facilitated;nonskid shoes/slippers when outof bed;room near unit station;plant safety leader;supervised activity Musculoskeletal Interventions Activity/Level of Assistance up [...] Discharge Needs Assessment 01/24/15 0630 01/26/15 1100 01/28/15 0424 Discharge Needs Assessment Concerns to be Addressed [...] Interventions Fluid Management fluids promoted Intervention: Functional [place]/Activity Promotion 01/27/151999 Musculoskeletal Interventions Functional [place]/Activity Promotion ambulation to/from bathroom promoted;sitting for BADLs [...] Healing Patient will demonstrate the desired outcomes. 01/27/15252 Skin Integrity Impairment, Risk/Actual (Adult, Obstetrics) [...] 2.5mg PO once and immediately transferred to [facility]. Her INR on arrival to [facility] was 5.9. She was given 4 units [...] IgM: 17 (<13) Anti-b2-GP IgG <21 (<20) Iytl-ynvt-8-glycoprotein IgM 82 (<20) She denies any history of DVT/PE/CVA/NC. She had one miscarriage in 1999 at [...] In addition, there is superficial anddeep perivascular [place]+, Lambda- plasma cell infiltrate. Please correlate with [...] trimester) and laboratory evidence (elevated anticardiolipin or mnimbizo0hhkejhcrvyfy IgG/IgM; presence of lupus anticoagulant). She denies [...] questions/concerns. Eber Bolden MD Hematology/Oncology fellow Pager [phone]*+*+*+*+*+*+*+*+*+*+*+*+*+*+*+*+*+*+*+*+*+*+*+*+*+*+*+*+*+*+*+*+*+*+*+*+*+* Thrombosis Attending Physician I have independently [...] (i.e., >/=40 MPL or GPL), AND/OR 3) Qebl-niii9-ctcccdvjedfk-1 antibody (IgM or IgG) at a level >99th percentile (i.e., >100 units in [facility] laboratory). The relevant antiphospholipid antibody must be [...] Implemented as Appropriate) 01/24/15 0630 01/26/15 1100 Individualization Patient Specific Goals adequate pain [...] Ongoing (Interventions Implemented as Appropriate) 01/26/15 0923 01/26/15 1920 Safety Interventions Safety Precautions/Fall Reduction -- fall [...] Outcome: Ongoing (Interventions Implemented as Appropriate) 01/24/15 0601/26/15 1100 Discharge Needs Assessment Concerns to be [...] Outcome: Ongoing (Interventions Implemented as Appropriate) 01/24/15 06 Fall/Trauma/Injury Risk Personal Related Risk Factors (Fall/Trauma/Injury Risk) emotional state;fatigue/slowed reaction time;sleep disturbance Environmental Related Risk Factors (Fall/Trauma/Injury Risk) environment unfamiliar Physiological Related Risk Factors (Fall/Trauma/Injury Risk) pain Signs and Symptoms (Fall/Trauma/Injury Risk) presence of risk factors Goal: Absence of Trauma/Injury/Falls Patient will demonstrate the desired outcomes. Outcome: Ongoing (Interventions Implemented as Appropriate) 01/27/15 025 Fall/Trauma/Injury Risk (Adult, Obstetrics) Absence of Trauma/Injury/Falls [...] Ongoing (Interventions Implemented as Appropriate) 01/27/15 025 Skin Integrity Impairment, Risk/Actual (Adult, [...] check YELENA, dsDNA, C3, C4, CH50, ANITA, TOOL MAKER BENCH and Rees Ab. Would also like input [...] Lab Comments: Recent Labs 01/27/15 0434 01/26/15 03401/25/15454 WBC 6.8 5.6 6.9 HGB 11.7 9.8* 8.9* HCT 35.1 29.4* 26.7* PLATELET 472* 432* 385* Recent Labs 01/27/15 0434 INR 1.2* Recent Labs 01/27/15 0434 01/26/15 0344 06/14/15 0455 NA 138 141 140 K 4.4 [...] in determining the best treatment plan regarding snf anticoagulation. PLAN OF MANAGEMENT: #Left hemothorax - additional vitamin K 1.25 mg PO today - anticipate chest tube removal by IR today # Hemopericardium with tamponade, unclear etiology - rheumatology consulted; cause maybe of autoimmune etiology - f/u additional lab work: YELENA, dsDNA, C3, C4, CH50, ANITA, TOOL MAKER BENCH, anti-Sm Ab - Prednisone 20 mg PO daily # Antiphospholipid antibody syndrome on warfarin, with supratherapeutic INR (>9.2) - continue to hold warfarin; INR on admission to [facility] 5.9; now 1.2 - heme c/s pending [...] Dispo: pending clinical course Ale Howard MS3 Pager#[phone] 01/27/2015 Plan of Care - Shadia Rodriguez RN - 01/26/2015 5:59 PM EDT Problem: Pain, Acute (Adult, Obstetrics) Goal: Acceptable Pain Control/Comfort Level Patient will demonstrate the desired outcomes. Outcome: Ongoing (Interventions Implemented as Appropriate) 01/24/15 2321 Pain, Acute (Adult, Obstetrics) Acceptable Pain Control/Comfort Level making progress toward outcome Problem: Fall/Trauma/Injury Risk (Adult, Obstetrics) Goal: Absence of Trauma/Injury/Falls Patient will demonstrate the desired outcomes. Outcome: Ongoing (Interventions Implemented as Appropriate) 01/24/15 2321 Fall/Trauma/Injury Risk (Adult, Obstetrics) Absence of Trauma/Injury/Falls [...] AM EDT Office of Care Management Clinical Manager Instrumentation Patient Name: Francie Gonzales Yusuf : 1960, 54 yrs Admission Date: 01/22/2015 1:30 PM Attending: Linden Pacheco MD Order to Admit: signed Discussed patient with Provider Team and in multidisciplinary discharge-planning rounds. Reviewed record and interviewed patient. Introduced/reviewed CRC role and services accepted. REASON for HOSPITALIZATION: Transfer to [facility] with cardiac tamponade. Has chest tube. history [...] None on File (x) HEALTH /PRESCRIPTION COVERAGE: [facility] CURRENT HOME/COMMUNITY SERVICES/EQUIPMENT: DME: none Home Health Agency: none CALL CENTER SUPPORT REPRESENTATIVE REFERRAL: Notified CALL CENTER SUPPORT REPRESENTATIVE - for Support/Financial/Medication Assistance; See CALL CENTER SUPPORT REPRESENTATIVE notes for further needs. Pt has concerns re: cost of being in hospital and how will pay for everything. Referral to KARISSA Bourgeois. PRIMARY CARE PHYSICIAN: CHARLENE MORGAN, PHYSICIAN RELATIONS SPECIALIST [phone] POTENTIAL DISCHARGE NEEDS: Unable to determine @ this time. Discussed VNA vs Snf/Rehab TRANSPORTATION @ D/C: friend PLAN: CRC will continue to monitor progress, follow for continuity of care and assist with dischargeplanning while hospitalized Daxa Lees RN Office of Care Management Clinical Manager Instrumentation Covering for Dominique Sanz Pager [phone] Med Student Progress Note - Ale Howard - 01/26/2015 6:47 AM EDT Inpatient Cardiology Progress Note Patient Name: Francie Gonzales Yusuf Service: Cardiology Responsible Attending: Linden Pcaheco MD Reason for continued hospitalization: Patient is [...] of serosanguinous fluid. We will f/u with professor of vegetable science to investigate whether the pleural effusion and [...] - hold warfarin; INR on admission to [facility] 5.9 - f/u with rheumatology # Hypothyroidism [...] Dispo: pending clinical course Ale Howard MS3 Pager#[phone] 01/26/2015 Plan of Care - Anna Ingram [...] Handling Outcome: Ongoing (Interventions Implemented as Appropriate) 01/24/15191801/24/15193101/24/15 2321 Safety Interventions Safety Precautions/Fall Reduction assistive [...] Outcome: Ongoing (Interventions Implemented as Appropriate) 01/24/152320 Cardiac Output, Decreased (Adult, Obstetrics) Adequate Cardiac [...] Outcome (s) achieved Date Met: 01/24/15 01/24/15 0630 Fall/Trauma/Injury Risk Personal Related Risk [...] Outcome (s) achieved Date Met: 01/24/15 01/24/15629 Cardiac Output, Decreased Personal Related Risk Factors (Cardiac Output, Decreased) stress Physiological Related Risk Factors (Cardiac Output, Decreased) decreased cardiac pump function Signs and Symptoms (Cardiac Output, Decreased) dyspnea;shortness of breath Goal: Adequate Cardiac Output/Effective Tissue Perfusion Patient will demonstrate the desired outcomes. Outcome: Ongoing (Interventions Implemented as Appropriate) 01/24/1530 Cardiac Output, Decreased (Adult, Obstetrics) Adequate Cardiac [...] OUTCOME EVALUATION: ongoing Med Student Consult - Ke Avalos MD - 01/23/2015 3:22 PM EDT [...] hypothyroidism. The patient initially presented to her [facility] with dyspnea, chest pain and a INR of 9.2. Cardiac tamponade was identified on CXR and echoca rdiogram. She was subsequently transferred to [facility] emergency department for further investigation and [...] weeks preceding admission Ms Yusuf visiting a nearbyEmergency Department twice. She was suspected to be [...] Echocardiogram reported of cardiac tamponade. A 6 Kazakh pigtail catheter was placed into pericardial space [...] with tamponade - INR on presentation to [facility] ~9.2 (01/22/2015). - INR on admission to [facility] 5.9, currently 2.4 (01/23/2015) following FFP and [...] on warfarin - INR on admission to [facility] 5.9, currently 2.4 (01/23/2015) following FFP and [...] MD PhD Med Student Progress Note - Ale Howard - 01/23/2015 6:47 AM EDT Inpatient Cardiology [...] Amyloidosis 24 hour events/subjective: - [facility] - TTE and Pericardiocentesis done (results below) [...] is not diaphoretic. Lab Comments: Recent Labs 01/23/1532401/22/15 1400 WBC 10.0 12.9* HGB 9.5* 9.9* HCT 28.3* 29.1* PLATELET 403* 493* Recent Labs 01/23/15324 INR 2.4* Recent Labs 01/23/1532401/22/154 01/22/15 1400 NA 141 -- 132* K 4.0 3.5 3.3* CL 98 -- 87* CO2 29 -- 25 BUN 21* -- 20* CREATININE 0.80 -- 0.71 Recent Labs 01/23/1532401/22/15 1400 AST 26 33* ALT 33* 42* ALKPHOS 119* 137* BILITOT 0.5 0.6 BILIDIR 0.2 0.2 Recent Labs 01/23/1532401/22/15 1400 CALCIUM 7.9* 7.7* No results for [...] as recent surgery. We will f/u with professor of vegetable science to obtain more history regarding her antiphospholipid [...] - hold warfarin; INR on admission to [facility] 5.9 - s/p vitamin K 2.5 mg [...] - Dispo:transfer to floor Ale Howard MS3 Pager#[phone] 01/23/2015 Associated attestation - Linden Pacheco MD [...] pericardial tube later today. Linden Pacheco MD, [facility], [facility] Med Student H&P - Ale Howard - [...] Platelets 526, ANC 11 CMP (partial records): 130/2.9/108///0.8, AST 41, ALT 56 INR > 9.2 ProBNP 481 D-dimer 4115 - Medications given: Vitamin K 2.5 mg PO KCl 40 mEq PO After evaluation she was diagnosed with pericardial tamponade and transported to [facility] Past Medical History: Past Medical History Diagnosis Date ??? Hypertension ??? Anti-phospholipid antibody syndrome ??? Eczema ??? Herniated disc ??? Anemia, iron deficiency ??? Asthma ??? Pneumonia X2 ??? Thyroid nodule ??? Amyloidosis cutis 2010 Surgical History/Problems: Past Surgical History Procedure Laterality Date ??? Bone marrow biopsy ??? Hysterectomy ??? Thyroidectomy 06/01/2012 THYROIDECTOMY, TOTAL OR COMPLETE performed by LINDA RANGEL at [facility] MAIN OR ??? Somatosensory test, any/all per. nerves, trunk or head 06/01/2012 FACIAL NERVE MONITORING, SETUP performed by LINDA RANGEL at [facility] MAIN OR Significant Family History: Family History [...] Take 1 tablet by mouth daily. ??? [id number]-Astx 1000-130(40-80) mg Capsule Take 1 capsule by [...] Calculated (Bezet) 491 ms Final Calculated P Hawthorne 31 degrees Final Calculated R Hawthorne -7 degrees Final Calculated T Hawthorne -35 degrees Final INTERPRETATION Final Sinus rhythm [...] - TTE pending - anticipate transfer to cath lab nurse thereafter for pericardial drainage # Antiphospholipid antibody syndrome on warfarin, with supratherapeutic INR (>9.2) - hold warfarin; INR on admission to [facility] 5.9 - s/p vitamin K 2.5 mg [...] Advanced Care Planning: - Dispo: Admit to , CVCC status Provider: Ale Howard MS3 Provider [...] Diagnosis LAB SCAN 01/29/2015 12:00 AM EDT 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 NON-WINDOW AND SIDING CRAFTSMAN FINAL REPORT Routine 01/22/2015 7:32 Resu lts [...] section. TYPE AND SCREEN Routine 01/22/2015 3:25 ([facility]/CGP/HORTENSIA) PM EDT EKG 12-LEAD Routine 01/22/2015 2:09 [...] documented in this encounter Results SCAN DOC: BUILDING ARCHITECTURAL DESIGNER (01/29/2015 12:00 AM EDT) Narrative This result [...] ORDERABLES Immunoglobulins, Quantitative (01/28/2015 12:05 PM EDT) P athologist Signature IgG 721 700 - 1,600 CERNER mg/dL MILLENNIUM IgA 103 70 - 400 CERNER mg/dL MILLENNIUM IgM 176 40 - 230 CERNER mg/dL MILLENNIUM Specimen Anatomical Collection Method Collection Time Receive d Time (Source) Location / / Volume Laterality Blood specimen 01/28/2015 12:05 5 (specimen) PM EDT 12:35 PM EDT Resulting Agency Comment Spec In Lab Linden Pacheco MD CHEMISTRY ORDERABLES Performing Organization Address City/State/ZIP Code Phon e Number [place] [id number] CERNER MILLENNIUM Duplex for DVT, Leg, Unilat (01/28/2015 11:07 AM EDT) Component Value Ref Test Analysis Performed At [facility] gist Range Method Time Signature VB Text VASCUBASE Report Department: Vascular Surgery Lab Patient: [id number] (FRANCIE YUSUF) CPT Code: 55635 ICD-9: 729.5 Referring Physician: LINDEN PACHECO Indication: [...] Organization Address City/State/[place] [address] CERNER MILLENNIUM (ABNORMAL) Hemogram [...] Pacheco MD HEMATOLOGY ORDERABLES Performing Organization Address City/[facility]/[place] [address] CERNER MILLENNIUM APTT (01/28/2015 3:42 AM EDT) P athologist Signature PTT 30 25 - 35 sec [facility] MILLENNIUM Comment: Recommended therapeutic PTT range for fu ll dose unfractionated heparin is 80-114 seconds. Specimen Anatomical Collection Method Collection Time Receive d Time (Source) Location / / Volume Laterality Blood specimen 01/28/2015 3:42 AM 015 4:01 (specimen) EDT AM EDT Resulting Agency Comment Spec In Lab Linden Pacheco MD HEMATOLOGY ORDERABLES Performing Organization Address City/[facility] Code Phon e Number [address] [facility] MILLENNIUM Prothrombin Time (01/28/2015 3:42 AM EDT) P athologist Signature PT 14.6 12.5 - 15.5 [facility] sec MILLENNIUM Comment: Transfusion Committee Guidelines: INR less than 2.0, PTT less than OR equal to 43.5 seconds, or Fibrinogen greater t fernandes or equal to 100 mg/dl indicate adequate procoagulant activity for hemos tasis in patients without underlying bleeding disorders. INR 1.1 0.9 - 1.1 [facility] Specimen Anatomical Collection Method Collection Time Receive d Time (Source) Location / / Volume Laterality Blood specimen 01/28/2015 3:42 AM 015 4:01 (specimen) EDT AM EDT Resulting Agency Comment Spec In Lab Linden Pacheco MD HEMATOLOGY ORDERABLES Performing Organization Address City/[facility]/ZIP [facility] [place] [address] [facility] MILLENNIUM (ABNORMAL) Basic Metabolic Panel (non-fasting) (01/28/2015 3:42 AM EDT) athologist Signature Glucose Lvl 104 65 - 199 CERNER mg/dL MILLENNIUM Comment: Diabetes: >=200 mg/dL plus symp toms BUN 14 8 - 18 mg/dL CERNER MILLENNIUM Creatinine 0.75 0.70 - 1.20 mg/dL CERNER MILL ENNIUM Comment: Please note that the pediatric reference intervals supplied above were not validated at [facility]. Results from pediatri c patients should be [...] the following links into your internet browser. [email or web address] Specimen Anatomical Collection Method Collection Time Receive d Time (Source) Location / / Volume Laterality Blood specimen 01/28/2015 3:42 AM 015 4:01 (specimen) EDT AM EDT Resulting Agency Comment Spec In Lab iLnden Pacheco MD CHEMISTRY ORDERABLES Performing Organization Address City/[facility]/ZIP Code Phon e Number [address] CERNER MILLENNIUM Free Light Chains, Serum (01/27/2015 7:42 PM EDT) P athologist Signature [place] Free 1.82 0.33 - CERNER Light Chains 1.94 mg/dL MILLENNIUM Lambda Free 1.21 0.57 - CERNER Light Chains 2.63 mg/dL MILLENNIUM [place]/Lambda 1.5041 0.2600 - CERNER Free Light 1.6500 MILLENNIUM Chain Ratio Specimen Anatomical Collection Method Collection Time Receive d Time (Source) Location / / Volume Laterality Blood specimen 01/27/2015 7:42 PM 015 8:13 (specimen) EDT PM EDT Resulting Agency Comment Spec In Lab Linden Pacheco MD CHEMISTRY ORDERABLES Performing Organization Address City/[facility]/ZIP [facility] Phon e Number [address] CERNER MILLENNIUM (ABNORMAL) Protein [...] Pacheco MD CHEMISTRY ORDERABLES Performing Organization Address City/[facility]/ZIP Code Phon e Number [address] CERNER MILLENNIUM YELENA Titer (01/27/2015 9:31 AM EDT) athologist Signature YELENA Titer POSITIVE [facility] Comment: MIXED PATTERN SEEN 1:640 Titer seen [...] Pacheco MD IMMUNOLOGY ORDERABLES Performing Organization Address City/[facility] Phon e Number [address] [facility] U1RNP Antibody (01/27/2015 9:31 AM EDT) athologist Signature U1RNP Auto Ab TNP [facility] Comment: Cancelled due to duplicate test on this order Test Performed by: [place] [address] Education Program Specialist: [place] Roman Specimen Anatomical Collection Method Collection Time Receive d Time (Source) Location / / Volume Laterality Blood specimen Venous Draw / 01/27/2015 9:31 AM 2014 2:34 (specimen) Unknown EDT PM EDT Resulting Agency Comment Spec In Lab Linden Pacheco MD IMMUNOLOGY ORDERABLES Performing Organization Address City/[facility] Phon e Number [address] [facility] MILLENNIUM Sm Antibody (01/27/2015 9:31 AM EDT) athologist Signature Sm Auto Ab TNP [facility] Comment: Cancelled due to duplicate test on this order Test Performed by: [facility] [address], [place] [address] Education Program Specialist: [place] Roman Specimen Anatomical Collection Method Collection Time Receive d Time (Source) Location / / Volume Laterality Blood specimen 01/27/2015 9:31 AM 015 1:37 (specimen) EDT PM EDT Resulting Agency Comment Spec In Lab Linden Pacheco MD IMMUNOLOGY ORDERABLES Performing Organization Address City/State/ZIP Code Phon e Number [address] CERNER MILLENNIUM (ABNORMAL) Extractable Nuclear Antigen (ANITA) Ab (01/27/2015 9:31 AM EDT) [facility] Method Time Signature ANITA Ab CERNER Test ?Result ?Flag ??Unit ??RefValue MILLENNIUM Ab to Extractable Nuclear Ag Eval,S ??SS-A/Ro Ab, IgG, S ?1.1 ?H ?U -- REFERENCE VALUE -- <1.0 (Negative) Interpretation: Positive (>=1.0) ??SS-B/La Ab, IgG, S ?<0.2 ?U -- REFERENCE VALUE -- <1.0 (Negative) ??Sm Ab, IgG, S ? <0.2 ? U -- REFERENCE VALUE -- <1.0 (Negative) ??TOOL MAKER BENCH Ab, IgG, S ?0.7 ? U -- REFERENCE VALUE -- <1.0 (Negative) ??Scl 70 Ab, IgG, S ? <0.2 ?U -- REFERENCE VALUE -- <1.0 (Negative) ??Duyen 1 Ab, IgG, S ? <0.2 ?U -- REFERENCE VALUE -- <1.0 (Negative) Test Performed by: [facility] [place] [address] Education Program Specialist: Kerri Olson, Ph.D. (A) Specimen Anatomical Collection Method Collection Time Receive d Time (Source) Location / / Volume Laterality Blood specimen 01/27/2015 9:31 AM 015 1:37 (specimen) EDT PM EDT Resulting Agency Comment Spec In Lab Linden Pacheco MD IMMUNOLOGY ORDERABLES Performing Organization Address City/[facility] Code Phon e Number [address] CERNER MILLENNIUM (ABNORMAL) Complement, Total (01/27/2015 9:31 AM EDT) P athologist Signature Complement 21 (L) 30 - 75 CERNER Total unit/mL MILLENNIUM Comment: Test Performed by: [facility] [place] [address] Education Program Specialist: Kerri Olson, P h.D. Specimen Anatomical Collection Method Collection Time Receive d Time (Source) Location / / Volume Laterality Blood specimen 01/27/2015 9:31 AM 015 1:37 (specimen) EDT PM EDT Resulting Agency Comment Spec In Lab Linden Pacheco MD CHEMISTRY ORDERABLES Performing Organization Address City/[facility]/ZIP Code Phon e Number [address] CERNER MILLENNIUM (ABNORMAL) C4 Complement (01/27/2015 9:31 AM EDT) P athologist Signature C4 Complement 2 (L) 10 - 40 CERNER mg/dL MILLENNIUM Specimen Anatomical Collection Method Collection Time Receive d Time (Source) Location / / Volume Laterality Blood specimen 01/27/2015 9:31 AM 015 9:36 (specimen) EDT AM EDT Resulting Agency Comment Spec In Lab Linden Pacheco MD CHEMISTRY ORDERABLES Performing Organization Address City/[facility]/ZIP [facility] [place] [address] CERNER MILLENNIUM C3 Complement (01/27/2015 9:31 AM EDT) P athologist Signature C3 Complement 97 90 - 180 CERNER mg/dL [facility] Specimen Anatomical Collection Method Collection Time Receive d Time (Source) Location / / Volume Laterality Blood specimen 01/27/2015 9:31 AM 015 9:36 (specimen) EDT AM EDT Resulting Agency Comment Spec In Lab Linden Pacheco MD CHEMISTRY ORDERABLES Performing Organization Address [facility]/[place] [address] CERNER SUSYENNIUM DNA Antibody (Double-Stranded) (01/27/2015 9:31 AM EDT) P athologist Signature DNA Ab (DS) Neg Neg CERNER [facility] Specimen Anatomical Collection Method Collection Time Receive d Time (Source) Location / / Volume Laterality Blood specimen 01/27/2015 9:31 AM 015 (specimen) EDT 12:12 PM EDT Resulting Agency Comment Spec In Lab Linden Pacheco MD CHEMISTRY ORDERABLES Performing Organization Address City/[facility]/ZIP Code Phon e Number [address] CERNER SUSYENNIUM (ABNORMAL) YELENA (01/27/2015 9:31 AM EDT) P athologist Signature YELENA Titer to Neg CERNER follow (A) MILLENNIUM Specimen Anatomical Collection Method Collection Time Receive d Time (Source) Location / / Volume Laterality Blood specimen 01/27/2015 9:31 AM 015 (specimen) EDT 12:12 PM EDT Resulting Agency Comment Spec In Lab Linden Pacheco MD IMMUNOLOGY ORDERABLES Performing Organization Address City/State/[place] [address] CERNER MILLENNIUM (ABNORMAL) Differential, [...] Organization Address City/State/[place] [address] CERNER MILLENNIUM (ABNORMAL) Hemogram (01/27/2015 [...] MCHC 33.3 32.0 - 36.5 CERNER gm/dL [facility] Platelets 472 (H) 145 - 370 CERNER x10(3)/mcL MILLENNIUM RDWSD 40.4 35.0 - 46.0 CERNER fL MILLENNIUM RDWCV 13.4 10.9 - 14.4 CERNER % [facility] MPV 8.5 (L) 9.0 - 12.[address] Specimen Anatomical Collection Method Collection Time Receive d Time (Source) Location / / Volume Laterality Blood specimen 01/27/2015 4:34 AM 015 4:52 (specimen) EDT AM EDT Resulting Agency Comment Spec In Lab Linden Pacheco MD HEMATOLOGY ORDERABLES Performing Organization Address City/State/ZIP Code Phon e Number [address] [facility] APTT (01/27/2015 4:34 AM EDT) athologist Signature PTT 32 25 - 35 sec [facility] Comment: Recommended therapeutic PTT range for fu ll dose unfractionated heparin is 80-114 seconds. Specimen Anatomical Collection Method Collection Time Receive d Time (Source) Location / / Volume Laterality Blood specimen 01/27/2015 4:34 AM 015 4:52 (specimen) EDT AM EDT Resulting Agency Comment Spec In Lab Linden Pacheco MD HEMATOLOGY ORDERABLES Performing Organization Address City/State/[place] [address] [facility] MILLENNIUM (ABNORMAL) Prothrombin Time (01/27/2015 4:34 AM [...] Organization Address City/State/ZIP [place] [address] CERNER MILLENNIUM (ABNORMAL) Basic Metabolic Panel (non-fasting) (01/27/2015 4:34 AM EDT) athologist Signature Glucose Lvl 127 65 - 199 CERNER mg/dL MILLENNIUM Comment: Diabetes: >=200 mg/dL plus symp toms BUN 10 8 - 18 mg/dL CERNER MILLENNIUM Creatinine 0.60 (L) 0.70 - 1.20 mg/dL CERNER MILL ENNIUM Comment: Please note that the pediatric reference intervals supplied above were not validated at [facility]. Results from pediatri c patients should be [...] Calcium 8.0 (L) 8.5 - 10.5 mg/dL BECKIE TYSON Estimated GFR >60 >=60 BECKIE Veloz Comment: This estimated GFR (eGFR) value [...] the following links into your internet browser. [email or web address] Specimen Anatomical Collection Method Collection Time Receive d Time (Source) Location / / Volume Laterality Blood specimen 01/27/2015 4:34 AM 015 4:52 (specimen) EDT AM EDT Resulting Agency Comment Spec In Lab Linden Pacheco MD CHEMISTRY ORDERABLES Performing Organization Address City/State/[place] [address] BECKIE FLORES Echocardiogram Transthoracic(Leb) (01/26/2015 8:07 AM EDT) P athologist Signature EF 65 [facility] Anatomical Region Laterality Modality Other Specimen (Source) Anatomical Location Collection Method / Collectio n Time Received Time / Laterality Volume 01/26/2015 Narrative 01/26/2015 8:58 AM EDT Procedure: ?Transthoracic Echocardiogram Patient: ?YUSUF FRANCIE N ? (Age): 1960(54y) Med Rec#: ? [id number] ?Sex: ?F ? Site Loc: ? [facility] ?Ht / Wt: ??165(cm)/95(kg) Pt. Loc: ?Adult Floor ? BSA: ?2.02 Study Date: ?? 01/26/2015 ?Pt. Type: Inpatient Tape: ? Referring: BREA JACKMAN D Referring: Linden Pacheco Reading: Alexey Mosqueda ([id number]) [employer]: Conor Interiano Diagnosis: *Pericardial effusion (423.9) CPT Codes: *Echo LTD (83410) *Color Doppler (49961) *Doppler LTD (44877) Indication: ?? F/U Pericardial Effusion Rhythm: ? [...] E-wave Vmax ?0.9 ?m/sec ? MV deceleration [id number] ?msec ? MV A-wave Vmax ?0.4 ?m/sec ? MV E:A ratio ?2.1 ?ratio ? LV septal e' Vmax ?? 0.1 ?m/sec ? LV E:e' septal ratio9.7 ?ratio ? This report has been electronically sign ed by: _ Alexey Mosqueda MD ? 01/26/2015 08:58: 25 Images reviewed and interpretation [facility] Cardiac Ultrasound Laboratory Procedure Note Alexey Mosqueda MD - 01/26/2015 Procedure: Transthoracic Echocardiogram Patient: LISANDRO BRUROUGHS(Age): [birth year](54y) Med Rec#: [id number] Sex: F Site Loc: [facility] Ht / Wt: 165(cm)/95(kg) Pt. Loc: Adult Floor BSA: 2.02 Study Date: 01/26/2015 Pt. Type: Inpatie nt Tape: Referring: BREA JACKMAN D Referring: Linden Pacheco Reading: Alexey Mosqueda ([id number]) [employer]: Conor Interiano Diagnosis: *Pericardial effusion (423.9) CPT Codes: *Echo LTD (47997) *Color Doppler (40930) *Doppler LTD (82578) Indication: F/U Pericardial Effusion Rhythm: Sinus BP: [...] dimension consistent with elevated right atrial pressure. [facility] and limited spectr al Doppler performed. Diastolic/Systolic Function Value Units (Range) MV E-wave Vmax 0.9 m/sec MV deceleration [id number] msec MV A-wave Vmax 0.4 m/sec MV E:A ratio 2.1 ratio LV septal e' Vmax 0.1 m/sec LV E:e' septal ratio9.7 ratio This report has been electronically sign ed by: _ Alexey Mosqueda MD 01/26/2015 08:58:25 Images reviewed and interpretation ver ied [facility] Cardiac Ultrasound Laboratory Linden Pacheco MD ECHO [...] Address City/State/ZIP Code Phon e Number [address] CERNER MILLENNIUM (ABNORMAL) Protein, total (01/26/2015 3:44 AM EDT) athologist [facility] Total Protein 5.7 (L) 6.1 - 8.0 CERNER gm/dL MILLENNIUM Specimen Anatomical Collection Method Collection Time Receive d Time (Source) Location / / Volume Laterality Blood specimen Venous Draw / 01/26/2015 3:44 AM 2014 4:25 (specimen) Unknown EDT AM EDT Resulting Agency Comment Spec In Lab Linden Pacheco MD CHEMISTRY ORDERABLES Performing Organization Address City/State/ZIP Code Phon e Number [address] CERNER MILLENNIUM (ABNORMAL) Differential, Automated (01/26/2015 3:44 AM EDT) [facility] gist Method Time Signature Neutrophils % 75.6 [...] Organization Address City/State/ZIP Code [place] [address] CERNER MILLENNIUM (ABNORMAL) Hemogram (01/26/2015 3:44 AM EDT) P athologist Signature WBC 5.6 4.0 - 10.0 CERNER x10(3)/mcL MILLENNIUM RBC 3.55 (L) 3.93 - CERNER 5.22 MILLENNIUM x10(6)/mcL Hemoglobin 9.8 (L) 11.2 - CERNER 15.7 gm/dL MILLENNIUM Hematocrit 29.4 (L) 34.0 - CERNER 45.0 % MILLENNIUM MCV 82.8 79.0 - CERNER 94.0 fL MILLENNIUM MCH 27.6 26.6 - CERNER 32.2 pg MILLENNIUM MCHC 33.3 32.0 - CERNER 36.5 gm/dL MILLENNIUM Platelets 432 (H) 145 - 370 CERNER x10(3)/mcL MILLENNIUM RDWSD 41.2 35.0 - CERNER 46.0 fL MILLENNIUM RDWCV 13.5 10.9 - CERNER 14.4 % MILLENNIUM MPV 8.8 (L) 9.0 - 12.0 [facility] fL [facility] Specimen Anatomical Collection Method Collection Time Receive d Time (Source) Location / / Volume Laterality Blood specimen 01/26/2015 3:44 AM 015 4:17 (specimen) EDT AM EDT Resulting Agency Comment Spec In Lab Linden Pacheco MD HEMATOLOGY ORDERABLES Performing Organization Address City/[facility]/ZIP Code Phon e Number [address] [facility] APTT (01/26/2015 3:44 AM EDT) P athologist Signature PTT 32 25 - 35 sec [facility] Comment: Recommended therapeutic PTT range for fu ll dose unfractionated heparin is 80-114 seconds. Specimen Anatomical Collection Method Collection Time Receive d Time (Source) Location / / Volume Laterality Blood specimen 01/26/2015 3:44 AM 015 4:17 (specimen) EDT AM EDT Resulting Agency Comment Spec In Lab Linden Pacheco MD HEMATOLOGY ORDERABLES Performing Organization Address City/[facility]/ZIP Code Phon e Number [address] [facility] (ABNORMAL) Prothrombin Time (01/26/2015 3:44 AM EDT) P athologist Signature PT 16.7 (H) 12.5 - 15.5 [facility] MILLENNIUM Comment: Transfusion Committee Guidelines: INR less than 2.0, PTT less than OR equal to 43.5 seconds, or Fibrinogen greater t fernandes or equal to 100 mg/dl indicate adequate procoagulant activity for hemos tasis in patients without underlying bleeding disorders. INR 1.3 (H) 0.9 - 1.1 [facility] Specimen Anatomical Collection Method Collection Time Receive d Time (Source) Location / / Volume Laterality Blood specimen 01/26/2015 3:44 AM 015 4:17 (specimen) EDT AM EDT Resulting Agency Comment Spec In Lab Linden Pacheco MD HEMATOLOGY ORDERABLES Performing Organization Address City/[facility]/ZIP [place] [address] CERNER MILLENNIUM (ABNORMAL) Basic [...] supplied above were not validated at [facility]. Results from pediatri c patients should be [...] the following links into your internet browser. [email or web address] Specimen Anatomical Collection Method Collection Time Receive d Time (Source) Location / / Volume Laterality Blood specimen 01/26/2015 3:44 AM 015 4:17 (specimen) EDT AM EDT Resulting Agency Comment Spec In Lab Linden Pacheco MD CHEMISTRY ORDERABLES Performing Organization Address City/State/ZIP Code Phon e Number [place] [phone] BECKIE [employer] IR chest drainage procedure (01/25/2015 2:29 PM EDT) Anatomical Region Laterality Modality Chest X-Ray Angiography Specimen (Source) Anatomical Collection Method Collection Time Re ceived Time Location / / Volume Laterality 01/25/2015 2:29 PM EDT Narrative 01/26/2015 12:31 PM EDT Procedure: US-guided chest tube placement A#: [id number] Indication: 54 y.o. female w/ h/o antiph [...] Procedure: US-guided chest tube placemen t A#: [id number] Indication: 54 y.o. female w/ h/o antiph [...] Component Value Ref Test Analysis Performed At [facility] gist Range Method Time Signature Fluid Review CERNER Report ? [facility] ? Provider: ?? BABITA DOMINGUEZ ?Pt. Name: ?? FRANCIE PRU[address]T [address] ? Acc #: ?[id number] ? Pt. ? Col Date: ?? 5 ? /Sex: ?1960,(54 years),Female ? Rec Date: ?? 01/27/2015 ? LOC: ?[facility] ? MORPHOLOGIC HEMATOLOGY: FLUID REVIEW ? ---Clinical Information--- ? Specimen: ? Left Pleural Fluid ? Clinical Diagnosis: ? Antiphospholipid synd trice, pleural effusion ? Indication for Study: ?? Leukemia/Lymphoma Screen ? ---Preparation--- ? Microscopic Description: ?WBC/ul: ?2863 ?RBC/uL ? 079921 ? 200 cells counted on cytocentrifuge preparation [...] Organization Address City/State/ZIP [place] [address] CERNER MILLENNIUM Leukemia Lymphoma [...] Address City/State/ZIP Code Phon e Number [place] [phone] BECKIE FLORES (ABNORMAL) Body fluid culture (01/25/2015 2:10 PM EDT) Component Value Ref Test Analysis Performed At [facility] [facility] Method Time Signature Body Fluid CERNER Culture ? Patient Name: Valentine YUSUF ? Ordered By: LINDEN PACHECO ? MR#: [id number] ?LOC: ??[facility] ? /Sex: ??1960 (54 years), [...] - GENERAL ORDER RINA Performing Organization Address City/[facility] Code Phon e Number [address] CERNER MILLENNIUM Protein Level [...] AND STOOLS ORDER RINA Performing Organization Address City/[facility] Code Phon e Number [address] CERNER MILLENNIUM Lactate Dehydrogenase [...] AND STOOLS ORDER RINA Performing Organization Address City/[facility]/ZIP Code Phon e Number [address] CERNER MILLENNIUM Hematocrit Body Fluid Pleural, Left (01/25/2015 2:10 PM EDT) P athologist Signature HCT BF Type Pleural, CERNER [...] AND STOOLS ORDER RINA Performing Organization Address City/[facility]/ZIP Code Phon e Number [address] CERNER MILLENNIUM Cell Count Body Fluid Pleural, Left (01/25/2015 2:10 PM EDT) Patholo gist Method [...] Organization Address City/State/ZIP [place] [address] CERNER MILLENNIUM Anaerobic Culture (01/25/2015 1:34 PM EDT) [facility] Method Time Signature Anaerobic CERNER Culture ? Patient Name: Valentine YUSUF ? Ordered By: LINDEN PACHECO ? MR#: [id number] ?LOC: ??[facility] ? /Sex: ??1960 (54 years), [...] Organization Address City/State/ZIP Code Phon e Number [place] [id number] CERNER MILLENNIUM (ABNORMAL) Differential, Automated (01/25/2015 4:55 AM EDT) [facility] Method Time Signature Neutrophils % 78.2 % [...] Pacheco MD HEMATOLOGY ORDERABLES Performing Organization Address City/[facility]/ZIP Code Phon e Number [address] CERNER MILLENNIUM (ABNORMAL) Hemogram (01/25/2015 [...] Organization Address City/State/[place] [address] [facility] MILLENNIUM APTT (01/25/2015 4:55 AM EDT) P athologist Signature PTT 35 25 - 35 sec [facility] Comment: Recommended therapeutic PTT range for fu ll dose unfractionated heparin is 80-114 seconds. Specimen Anatomical Collection Method Collection Time Receive d Time (Source) Location / / Volume Laterality Blood specimen 01/25/2015 4:55 AM 015 5:14 (specimen) EDT AM EDT Resulting Agency Comment Spec In Lab Linden Pacheco MD HEMATOLOGY ORDERABLES Performing Organization Address [facility] Phon e Number [address] CERNER MILLENNIUM (ABNORMAL) Prothrombin Time (01/25/2015 4:55 AM EDT) P athologist Signature PT 18.0 (H) 12.5 - [...] Pacheco MD HEMATOLOGY ORDERABLES Performing Organization Address City/[facility]/ZIP Code Phon e Number [address] CERNER MILLENNIUM (ABNORMAL) Basic Metabolic [...] supplied above were not validated at [facility]. Results from pediatri c patients should be [...] the following links into your internet browser. [email or web address] Specimen Anatomical Collection Method Collection Time Receive d Time (Source) Location / / Volume Laterality Blood specimen 01/25/2015 4:55 AM 015 5:14 (specimen) EDT AM EDT Resulting Agency Comment Spec In Lab Linden Pacheco MD CHEMISTRY ORDERABLES Performing Organization Address City/[facility]/ZIP Code Phon e Number [address] BECKIE [employer]IUM Prepare thawed plasma (01/24/2015 3:20 PM EDT) P athologist Signature Dispensed? Yes CERTAINA [employer]UM Specimen Anatomical Collection Method Collection Time Receive d Time (Source) Location / / Volume Laterality Blood specimen 01/24/2015 3:20 PM 015 3:17 (specimen) EDT PM EDT Resulting Agency Comment Spec In Lab Linden Pacheco MD BLOOD BANK ORDERABLES Performing Organization Address City/[facility] [place] [address] CERTAINA FELTONIUM (ABNORMAL) Hemogram (01/24/2015 3:16 PM EDT) athologist Signature WBC 9.3 4.0 - 10.0 CERNER x10(3)/mcL MILLENNIUM RBC 3.57 (L) 3.93 - CERNER 5.22 MILLENNIUM x10(6)/mcL Hemoglobin 10.0 (L) 11.2 - CERNER 15.7 gm/dL MILLENNIUM Hematocrit 29.9 (L) 34.0 - CERNER 45.0 % MILLENNIUM MCV 83.8 79.0 - CERNER 94.0 fL [facility] MCH 28.0 26.6 - [facility] 32.2 pg [facility] MCHC 33.4 32.0 - [facility] 36.5 gm/dL [facility] Platelets 419 (H) 145 - 370 CERNER x10(3)/mcL MILLENNIUM RDWSD 41.7 35.0 - CERNER 46.0 fL [facility] RDWCV 13.7 10.9 - [facility] 14.4 % MILLENNIUM MPV 8.9 (L) 9.0 - 12.0 CERNER fL [facility] Specimen Anatomical Collection Method Collection Time Receive d Time (Source) Location / / Volume Laterality Blood specimen 01/24/2015 3:16 PM 015 3:26 (specimen) EDT PM EDT Resulting Agency Comment Spec In Lab Linden Pacheco MD HEMATOLOGY ORDERABLES Performing Organization Address City/[facility]/ZIP Code Phon e Number [address] [facility] Urine Hold (01/24/2015 2:30 PM EDT) athologist Signature Urine Hold Sample in [facility] lab. [facility] Specimen Anatomical Collection Method Collection Time Receive d Time (Source) Location / / Volume Laterality Urine specimen Urine / Unknown 01/24/2015 2:30 PM 01/12 2:40 (specimen) EDT PM EDT Linden Pacheco MD URINE ORDERABLES Performing Organization Address City/[facility]/ZIP [facility] [place] [address] [facility] Urine culture Urine (01/24/2015 2:30 PM EDT) [facility] Method Time Signature Urine Culture [facility] ? Patient Name: FRANCIE YUSUF ? Ordered By: LINDEN PACHECO ? MR#: [id number] ?LOC: ??[facility] ? /Sex: ??1960 (54 years), [...] Organization Address City/State/ZIP [place] [address] [place] J[employer] CT chest WO contrast (01/24/2015 1:10 PM [...] Without IV Contrast CLINICAL HISTORY: a/w tamponade 2/ bloo dy effusion (on warfarin for anti-phospholipid [...] significant interval nishi nge. Linden Pacheco MD IM CT ORDERABLES Urine Hold (01/24/2015 12:14 PM EDT) athologist Signature Urine Hold Sample in CERNER lab. [facility] Specimen Anatomical Collection Method Collection Time Receive d Time (Source) Location / / Volume Laterality Urine specimen Urine / Unknown 01/24/2015 12:14 2014 (specimen) PM EDT 12:26 PM EDT Linden Pacheco MD URINE ORDERABLES Performing Organization Address City/State/[place] [address] CERNER MILLENNIUM (ABNORMAL) Urinalysis with microscopic (01/24/2015 12:14 PM EDT) [facility] Method Time Signature Glucose UA Negative Negative [...] indicated. Urobilinogen UA >=4.0 (A) Normal mg/dL CERNER MILL ENNIUM pH UA 7.0 5.0 - 8.0 CERNER MILLENNIUM Blood UA Negative Negative mg/dL CERNER MILLENNI UM Ketones UA 20 (A) Negative mg/dL CERNER MILLENN IUM Nitrite UA Negative Negative CERNER MILLENNIUM Leukocytes UA Negative Negative mcL CERNER JARETH NIUM Appearance UA Hazy (A) Clear CERNER MILLENNIU M Spec [place] UA 1.026 1.002 - 1.030 CERNER MIL LENNIUM Color UA Yellow Yellow CERNER MILLENNIUM RBC UA 3 0 - 4 /HPF CERNER MILLENNIUM WBC UA 4 0 - 5 /HPF CERNER MILLENNIUM Bacteria UA Rare (A) None /HPF CERNER MILLENNIUM Squam Epith UA 9 (H) <=4 /HPF CERNER MILLENNI UM Specimen Anatomical Collection Method Collection Time Receive d Time (Source) Location / / Volume Laterality Urine specimen 01/24/2015 12:14 5 (specimen) PM EDT 12:26 PM EDT Resulting Agency Comment Spec In Lab Linden Pacheco MD URINE ORDERABLES Performing Organization Address City/State/[place] [address] CERNER MILLENNIUM XR chest routine PA & lateral (01/24/2015 [...] drain pulled 01/23. ? ?cont'd O2 need. ??reduced/ujva-wb-hjad on most of L lung TECHNIQUE: PA [...] drain pulled 01/23. c ont'd O2 need. reduced/ecux-iv-oatp on most of L lung TECHNIQUE: PA [...] (ABNORMAL) Differential, Automated (01/24/2015 5:14 AM EDT) [facility] Method Time Signature Neutrophils % 79.4 % [...] Organization Address City/State/ZIP Code [place] [address] CERNER MILLENNIUM (ABNORMAL) Hemogram (01/24/2015 5:14 AM EDT) P athologist Signature WBC 9.9 4.0 - 10.0 CERNER x10(3)/mcL MILLENNIUM RBC 3.34 (L) 3.93 - CERNER 5.22 MILLENNIUM x10(6)/mcL Hemoglobin 9.3 (L) 11.2 - CERNER 15.7 gm/dL MILLENNIUM Hematocrit 27.9 (L) 34.0 - CERNER 45.0 % MILLENNIUM MCV 83.5 79.0 - CERNER 94.0 fL MILLENNIUM MCH 27.8 26.6 - CERNER 32.2 pg [facility] MCHC 33.3 32.0 - CERNER 36.5 gm/dL [facility] Platelets 390 (H) 145 - 370 CERNER x10(3)/mcL [facility] RDWSD 41.8 35.0 - CERNER 46.0 fL [facility] RDWCV 13.7 10.9 - CERNER 14.4 % [facility] MPV 9.5 9.0 - 12.0 CERNER fL [facility] Specimen Anatomical Collection Method Collection Time Receive d Time (Source) Location / / Volume Laterality Blood specimen 01/24/2015 5:14 AM 015 5:37 (specimen) EDT AM EDT Resulting Agency Comment Spec In Lab Linden Pacheco MD HEMATOLOGY ORDERABLES Performing Organization Address City/[facility]/[place]IP [place] [address] CERNER MILLENNIUM (ABNORMAL) APTT (01/24/2015 5:14 AM EDT) P athologist Signature PTT 42 (H) 25 - 35 sec CERNER MILLENNIUM Comment: Recommended therapeutic PTT range for fu ll dose unfractionated heparin is 80-114 seconds. Specimen Anatomical Collection Method Collection Time Receive d Time (Source) Location / / Volume Laterality Blood specimen 01/24/2015 5:14 AM 015 5:37 (specimen) EDT AM EDT Resulting Agency Comment Spec In Lab Linden Pacheco MD HEMATOLOGY ORDERABLES Performing Organization Address City/[facility]/[place] [address] CERNER MILLENNIUM (ABNORMAL) Prothrombin Time (01/24/2015 5:14 AM [...] Pacheco MD HEMATOLOGY ORDERABLES Performing Organization Address [facility]/ZIP [facility] Phon e Number [address] CERNER MILLENNIUM (ABNORMAL) Hepatic Function Panel (01/24/2015 5:14 AM EDT) athologist Signature Total Protein 5.8 (L) 6.1 [...] Pacheco MD CHEMISTRY ORDERABLES Performing Organization Address City/[facility] Phon e Number [address] CERNER MILLENNIUM (ABNORMAL) Basic Metabolic [...] supplied above were not validated at [facility]. Results from pediatri c patients should be [...] the following links into your internet browser. [email or web address] Specimen Anatomical Collection Method Collection Time Receive d Time (Source) Location / / Volume Laterality Blood specimen 01/24/2015 5:14 AM 015 5:37 (specimen) EDT AM EDT Resulting Agency Comment Spec In Lab Linden Pacheco MD CHEMISTRY ORDERABLES Performing Organization Address City/State/ZIP Code Phon e Number [place] [id number]OS[address] CERNER MILLENNIUM US abdomen limited (01/23/2015 4:24 PM EDT) Anatomical Region Laterality Modality Abdomen Ultrasound Specimen (Source) Anatomical Collection Method Collection Time Re ceived Time Location / / Volume Laterality 01/23/2015 4:24 PM EDT Narrative 01/23/2015 4:34 PM EDT Abdominal ?(Signed Final 01/23/2015 04:34 ? pm) Patient Info ID #: ? [id number] ?: ??[birth year] (54 yrs) Name: ? FRANCIE YUSUF ?Visit Date: 01/23/2015 04:19 pm Performed By Performed By: ?Bonny Ramsay RDMS Attending: ? Pia RAMOS, Danny Whitehead Referred By: ? GALO HAMMER MD Service(s) Provided ??UABDLIM - Abdominal Limited Survey Si ngle ? [id number] ??Organ or Quadrant - [id number] Indications ??hepatomegaly. ??occurs in setting war farin [...] ??viewed the images and agree with abel degroot above interpretation. ? Danny Palacio MD Electronically Signed Final Report ?? 04:34 pm Procedure Note Danny Palacio MD - 01/23/2015Format ting of this note might be different from the original. Abdominal (Signed Final 01/23/2015 04:3 4 pm) Patient Info ID #: [id number] : [birth year] (54 y rs) Name: FRANCIE YUSUF Visit Date: 015 04:19 pm Performed By Performed By: Bonny Ramsay RDMS Attending: Danny Palacio MD Referred By: GALO HAMMER MD Service(s) Provided UABDLIM - Abdominal Limited Survey [place] [id number] Organ or Quadrant - [id number] Indications hepatomegaly. occurs in setting warfari n [...] images and agree with the above interpretation. Danny Palacio MD Electronically Signed Final Report 01/23 04:34 pm Linden Pacheco MD IMG US GEN ORDERABLES Echocardiogram Transthoracic(Leb) (01/23/2015 7:48 AM EDT) Anatomical Region Laterality Modality Other Specimen (Source) Anatomical Location Collection Method / Collectio n Time Received Time / Laterality Volume 01/23/2015 Narrative 01/23/2015 8:28 AM EDT Procedure: ?Transthoracic Echocardiogram Patient: ?YUSUF FRANCIE N ? (Age): 1960(54y) Med Rec#: ? [id number] ?Sex: ?F ? Site Loc: ? [facility] ?Ht / Wt: ??167(cm)/93(kg) Pt. Loc: ?[facility] ? BSA: ?2.02 Study Date: ?? 01/23/2015 ?Pt. Type: Inpatient Tape: ? Referring: BREA JACKMAN D Reading: Jesse Spears ([id number]) Railroad Police: [place], [facility] Diagnosis: *Pericardial effusion (423.9) CPT Codes: *Echo LTD (31053) BP: ? /107 HR: ? 74 SUMMARY: [...] ? Mid-Inferior ?Normal ? Mid-Inferoseptal ?Normal ? [place]-Septal ? Normal ? [place]-Anterior ? Normal ? [place]-Lateral ?Normal ? [place]-Inferior ? Normal ? [place]-Tip ?Normal ? This report has been electronically sign ed by: _ Jesse Spears M.D. ? 01/23/2015 08:28:02 Images reviewed and interpretation [facility] Cardiac Ultrasound Laboratory Procedure Note Jesse Spears MD - 01/23/2015Format ting of this note might be different from the original. Procedure: Transthoracic Echocardiogram Patient: LISANDRO BURROUGHS(Age): [birth year](54y) Med Rec#: [id number] Sex: F Site Loc: [facility] Ht / Wt: 167(cm)/93(kg) Pt. Loc: [facility] BSA: 2.02 Study Date: 01/23/2015 Pt. Type: Inpatie nt Tape: Referring: BREA JACKMAN D Reading: Jesse Spears ([id number]) Railroad Police: Ke Jim MS, [facility] Diagnosis: *Pericardial effusion (423.9) CPT Codes: *Echo LTD (15706) BP: /107 HR: 74 SUMMARY: 1. Limited [...] change in the inferior vena cava dimension. [facility] Two-dimensional echo and limited spectr al Doppler performed. Wall Motion: Segment Name Rest Base-Anteroseptal Normal Base-Anterior Normal Base-Anterolateral Normal Base-Posterolateral Normal Base-Inferior Normal Base-Inferoseptal Normal Mid-Anteroseptal Normal Mid-Anterior Normal Mid-Anterolateral Normal Mid-Posterolateral Normal Mid-Inferior Normal Mid-Inferoseptal Normal [place]-Septal Normal [place]-Anterior Normal [place]-Lateral Normal [place]-Inferior Normal [place]-Tip Normal This report has been electronically sign ed by: _ Jesse Spears M.D. 01/23/2015 08:28: 02 Images reviewed and interpretation [facility] Jarett Walker MD ECHO [...] 482 ms MUSE SYSTEM (Bezet) Calculated P [place] 26 degrees MUSE SYSTEM Calculated R [place] -5 degrees MUSE SYSTEM Calculated T [place] -21 degrees MUSE SYSTEM INTERPRETATION Normal sinus [...] Red Blood Cells (01/23/2015 3:25 AM EDT) athologist Signature nRBC % Auto 0.0 % CERNER MILLENNIUM nRBC Abs Auto 0.000 0.000 - CERNER 0.012 MILLENNIUM x10(3)/mcL Specimen Anatomical Collection Method Collection Time Receive d Time (Source) Location / / Volume Laterality Blood specimen 01/23/2015 3:25 AM 015 3:31 (specimen) EDT AM EDT Resulting Agency Comment Spec In Lab Yury Colon MD HEMATOLOGY ORDERABLES Performing Organization Address City/[facility]/ZIP Code Phon e Number [address] CERNER MILLENNIUM Scan, Peripheral Blood (01/23/2015 3:25 AM EDT) [facility] Method Time Signature Plat Estimate Increased CERNER MILLENNIUM RBC Morphology Normal CERNER MILLENNIUM Giant Less than 1 /HPF CERNER Platelets MILLENNIUM Specimen Anatomical Collection Method Collection Time Receive d Time (Source) Location / / Volume Laterality Blood specimen 01/23/2015 3:25 AM 015 3:31 (specimen) EDT AM EDT Resulting Agency Comment Spec In Lab Yury Colon MD HEMATOLOGY ORDERABLES Performing Organization Address City/[facility]/ZIP Code Phon e Number [address] CERNER MILLENNIUM (ABNORMAL) Differential, Automated (01/23/2015 3:25 AM EDT) [facility] gist Method Time Signature Neutrophils % 79.1 [...] Organization Address City/State/ZIP Code Phon e Number [place] [phone]OS[address]ITAL [address] CERNER MILLENNIUM (ABNORMAL) Hemogram (01/23/2015 3:25 AM EDT) P athologist Signature WBC 10.0 4.0 - 10.0 CERNER x10(3)/mcL MILLENNIUM RBC 3.44 (L) 3.93 - CERNER 5.22 MILLENNIUM x10(6)/mcL Hemoglobin 9.5 (L) 11.2 - CERNER 15.7 gm/dL MILLENNIUM Hematocrit 28.3 (L) 34.0 - CERNER 45.0 % MILLENNIUM MCV 82.3 79.0 - CERNER 94.0 fL MILLENNIUM MCH 27.6 26.6 - CERNER 32.2 pg MILLENNIUM MCHC 33.6 32.0 - CERNER 36.5 gm/dL MILLENNIUM Platelets 403 (H) 145 - 370 CERNER x10(3)/mcL MILLENNIUM RDWSD 41.3 35.0 - CERNER 46.0 fL [facility] RDWCV 13.5 10.9 - CERNER 14.4 % [facility] MPV 9.6 9.0 - 12.0 [facility] Specimen Anatomical Collection Method Collection Time Receive d Time (Source) Location / / Volume Laterality Blood specimen 01/23/2015 3:25 AM 015 3:31 (specimen) EDT AM EDT Resulting Agency Comment Spec In Lab Yury Colon MD HEMATOLOGY ORDERABLES Performing Organization Address City/[facility]/ZIP Code Phon e Number [address] [facility] (ABNORMAL) APTT (01/23/2015 3:25 AM EDT) P athologist Signature PTT 45 (H) 25 - 35 sec [facility] Comment: Recommended therapeutic PTT range for fu ll dose unfractionated heparin is 80-114 seconds. Specimen Anatomical Collection Method Collection Time Receive d Time (Source) Location / / Volume Laterality Blood specimen 01/23/2015 3:25 AM 015 3:31 (specimen) EDT AM EDT Resulting Agency Comment Spec In Lab Linden Pacheco MD HEMATOLOGY ORDERABLES Performing Organization Address City/[facility]/ZIP Code Phon e Number [address] [facility] (ABNORMAL) Prothrombin Time (01/23/2015 3:25 AM EDT) P athologist Signature PT 28.1 (H) 12.5 - 15.5 [facility] Comment: Transfusion Committee Guidelines: INR less than 2.0, PTT less than OR equal to 43.5 seconds, or Fibrinogen greater t fernandes or equal to 100 mg/dl indicate adequate procoagulant activity for hemos tasis in patients without underlying bleeding disorders. INR 2.4 (H) 0.9 - 1.1 [facility] Specimen Anatomical Collection Method Collection Time Receive d Time (Source) Location / / Volume Laterality Blood specimen 01/23/2015 3:25 AM 015 3:31 (specimen) EDT AM EDT Resulting Agency Comment Spec In Lab Linden Pacheco MD HEMATOLOGY ORDERABLES Performing Organization Address City/[facility]/ZIP Code Phon e Number [address] CERNER MILLENNIUM (ABNORMAL) Hepatic [...] Pacheco MD CHEMISTRY ORDERABLES Performing Organization Address [facility] Phon e Number [address] CERNER MILLENNIUM (ABNORMAL) Basic Metabolic Panel (non-fasting) (01/23/2015 3:25 AM EDT) athologist Signature Glucose Lvl 117 65 - 199 CERNER mg/dL MILLENNIUM Comment: Diabetes: >=200 mg/dL plus symp toms BUN 21 (H) 8 - 18 mg/dL CERNER MILLENNIUM Creatinine 0.80 0.70 - 1.20 mg/dL CERNER MILL ENNIUM Comment: Please note that the pediatric reference intervals supplied above were not validated at [facility]. Results from pediatri c patients should be [...] the following links into your internet browser. [email or web address] Specimen Anatomical Collection Method Collection Time Receive d Time (Source) Location / / Volume Laterality Blood specimen 01/23/2015 3:25 AM 015 3:31 (specimen) EDT AM EDT Resulting Agency Comment Spec In Lab Linden Pacheco MD CHEMISTRY ORDERABLES Performing Organization Address City/State/ZIP Code Phon e Number [place] [phone]OS[address] CERNER MILLENNIUM (ABNORMAL) TSH (01/23/2015 3:25 AM EDT) P athologist Signature TSH 5.17 (H) 0.27 - 4.20 CERNER mcIU/mL MILLENNIUM Specimen Anatomical Collection Method Collection Time Receive d Time (Source) Location / / Volume Laterality Blood specimen 01/23/2015 3:25 AM 015 3:31 (specimen) EDT AM EDT Resulting Agency Comment Spec In Lab Yury Colon MD CHEMISTRY ORDERABLES Performing Organization Address City/State/ZIP [place] [address] CERNER MILLENNIUM Potassium (01/22/2015 8:34 PM EDT) P athologist Signature Potassium 3.5 3.5 - 5.0 [...] Organization Address City/State/ZIP Code [place] [address] [facility] [address] CERNER MILLENNIUM XR chest PA [...] 494 ms MUSE SYSTEM (Bezet) Calculated P [place] 19 degrees MUSE SYSTEM Calculated R [place] -3 degrees MUSE SYSTEM Calculated T [place] -29 degrees MUSE SYSTEM INTERPRETATION Sinus rhythm [...] Fluid Culture Auto (01/22/2015 7:33 PM EDT) [facility] Method Time Signature Body Fluid CERNER Culture ? Patient Name: Valentine YUSUF ? Ordered By: YURY COLON MILLENNIUM Automated ? MR#: [id number] ?LOC : ??[facility]CU ? /Sex: ??1960 (54 [...] Organization Address City/State/ZIP [place] [address] [facility] Non-Tire Layer Final Report (01/22/2015 7:32 PM EDT) Component Value Ref Test Analysis Performed At [facility] Range Method Time Signature Non-Tire Layer [facility] Final Report ? [facility] ? Provider: ?? BABITA DOMINGUEZ ?Pt. Name: ?? SEBLE JUSTIN, FRANCIE Gonzales ? Acc #: ?[id number] ?Pt. MRN: ?[id number] ? Col Date: ?? 5 ? /Sex: ?1960,(54 years),Female ? Rec Date: ?? 01/27/2015 ? LOC: ?ICCU ? CYTOPATHOLOGY: ??NGYN ? ---Cytopathologic Diagnosis--- ? See Comment ? 01/29/15 ?Screened by: ? LMY ? Rescreened by: ?? MATE FISHING VESSEL ? 01/29/15 ?Verified by: ? Tamar JOHNS MD ?Pathol ogist ? (Electronic Signature) ? ---Comment--- [...] Organization Address City/State/ZIP [place] [address] [facility] Body Fluid HOLD (01/22/2015 7:22 PM EDT) [facility] gist Method Time Signature Hold BF Type Sample in [facility] lab. [facility] Specimen Anatomical Collection Method Collection Time Receive d Time (Source) Location / / Volume Laterality Body fluid Other / Unknown 01/22/2015 7:22 PM 2014 7:23 specimen EDT PM EDT (specimen) Yury Colon MD BODY FLUIDS AND STOOLS ORDER RINA Performing Organization Address City/[facility]/ZIP Code Phon e Number [address] CERNER MILLENNIUM Cholesterol Level Body Fluid Pericardial Fluid (01/22/2015 7:22 PM EDT) athologist Signature Chol, BF 6 mg/dL CERNER MILLENNIUM Comment: No reference range [...] AND STOOLS ORDER RINA Performing Organization Address [facility] Phon e Number [address] CERNER MILLENNIUM Lactate Dehydrogenase Body Fluid Pericardial Fluid (01/22/2015 7:22 PM EDT) athologist Signature LDH BF Not Perf unit/L CERNER MILLENNIUM Comment: No reference range [...] AND STOOLS ORDER RINA Performing Organization Address City/[facility]/ZIP Code Phon e Number [address] CERNER MILLENNIUM Protein Level Body Fluid Pericardial Fluid (01/22/2015 7:22 PM EDT) athologist Signature Protein, BF Not Perf gm/dL [...] 0.5 Protein BF Type Pericardial fl CERNER NC LLENNIUM Specimen (Source) Anatomical Collection Method Collection Time Re ceived Time Location / / Volume Laterality Pericardial fluid 01/22/2015 7:22 015 7:22 specimen (specimen) PM EDT PM EDT Resulting Agency Comment Spec In Lab Yury Colon MD BODY FLUIDS AND STOOLS ORDER RINA Performing Organization Address [facility]/ZIP Code Phon e Number [address] CERNER MILLENNIUM Glucose Level Body Fluid Pericardial Fluid (01/22/2015 7:22 PM EDT) athologist Signature Glucose, BF 49 mg/dL CERNER [...] AND STOOLS ORDER RINA Performing Organization Address [facility] Code Phon e Number [address] CERNER MILLENNIUM pH Body Fluid Other (01/22/2015 7:22 PM EDT) athologist Signature pH Body Fluid 7.14 CERNER [...] AND STOOLS ORDER RINA Performing Organization Address City/[facility] [place] [address] CERNER MILLENNIUM Cell Count Body Fluid Pericardial Fluid (01/22/2015 7:22 PM EDT) [facility] Method Time Signature Spec Type BF Pericardial [...] AND STOOLS ORDER RINA Performing Organization Address City/[facility] Code [place] [address] CERNER MILLENNIUM Calcofluor White Stain (01/22/2015 5:31 PM EDT) Component Value Ref Test Analysis Performed At [facility] Range Method Time Signature Calcofluor CERNER White Stain ? Patient Name: Valentine YUSUF ? Ordered By: YURY COLON ? MR#: [id number] ?LOC: ??CVCC ? /Sex: ??1960 (54 years), [...] Address City/State/ZIP Code Phon e Number [place] [address] CERNER MILLENNIUM Anaerobic Culture (01/22/2015 5:31 PM EDT) [facility] Method Time Signature Anaerobic CERNER Culture ? Patient Name: Valentine YUSUF ? Ordered By: YURY COLON ? MR#: [id number] ?LOC: ??ICCU ? /Sex: ??1960 (54 years), [...] Organization Address City/State/ZIP Code Phon e Number [place] [address] [facility] Body fluid culture (01/22/2015 5:31 PM EDT) Component Value Ref Test Analysis Performed At Patholo gist Range Method Time Signature Body Fluid CERNER Culture ? Patient Name: Valentine YUSUF ? Ordered By: YURY COLON [facility] ? MR#: [id number] ?LOC: ??ICCU ? /Sex: ??1960 (54 years), [...] Address City/State/ZIP Code Phon e Number [place] [facility] [place] [address] [employer] culture Pericardial Fluid (01/22/2015 5:31 PM EDT) [facility] Method Time Signature Acid Fast CERNER Bacilli ? Patient Name: Valentine YUSUF ? Ordered By: YURY COLON MILLSPENCER Culture ? MR#: [id number] ?LOC: ??[facility]CU ? /Sex: ??1960 (55 years), [...] Organization Address City/State/ZIP [place] [address] [employer] [employer] Fungus culture Pericardial Fluid (01/22/2015 5:31 PM EDT) [facility] Method Time Signature Fungus CERNER Culture ? Patient Name: Valentine YUSUF ? Ordered By: YURY COLON ? MR#: [id number] ?LOC: ??[facility]CU ? /Sex: ??1960 (54 years), [...] EDT Resulting Agency Comment Spec In Lab Yruy Colon MD MICROBIOLOGY - GENERAL ORDER RINA Performing Organization Address City/State/ZIP Code Phon e Number [place] [id number] [facility] CT chest WO contrast (01/22/2015 5:08 PM [...] right. Procedure Note Lucy Tesfaye MD - 01/22/2015Formatt [...] Prepare thawed plasma (01/22/2015 3:35 PM EDT) P athologist Signature Dispensed? Yes [facility] Specimen Anatomical Collection Method Collection Time Receive d Time (Source) Location / / Volume Laterality Blood specimen 01/22/2015 3:35 PM 015 3:39 (specimen) EDT PM EDT Yury Colon MD BLOOD BANK ORDERABLES Performing Organization Address [facility] [place] [address] [facility] Antibody screen (01/22/2015 3:25 PM EDT) [facility] gist Method Time Signature Ab Screen Negative [facility] Inter MILLENNIUM Expires at 01/25/2015 [facility] 2359 on: SUSYENNIUM Specimen Anatomical Collection Method Collection Time Receive d Time (Source) Location / / Volume Laterality Blood specimen 01/22/2015 3:25 PM 015 4:37 (specimen) EDT PM EDT Resulting Agency Comment Spec In Lab Yury Colon MD BLOOD BANK ORDERABLES Performing Organization Address City/[facility]/[place] [address] [facility] SUSYENNIUM ABO/Rh Typing (01/22/2015 3:25 PM EDT) athologist Signature ABORh Type O Pos [facility] SUSYEN[facility] Specimen Anatomical Collection Method Collection Time Receive d Time (Source) Location / / Volume Laterality Blood specimen 01/22/2015 3:25 PM 015 4:37 (specimen) EDT PM EDT Resulting Agency Comment Spec In Lab Yury Colon MD BLOOD BANK ORDERABLES Performing Organization Address City/[facility] [place] [address] CERNER MILLENNIUM EKG 12 Lead (01/22/2015 2:09 PM EDT) Component Value Ref Range Test Analysis Performed Patholog t Method Time At Signature Ventricular rate 90 BPM MUSE SYSTEM Atrial Rate 90 BPM MUSE SYSTEM P-R Interval 128 ms MUSE SYSTEM QRS Duration 90 ms MUSE SYSTEM Q-T Interval 402 ms MUSE SYSTEM QTC Calculated 491 ms MUSE SYSTEM (Bezet) Calculated P [place] 31 degrees MUSE SYSTEM Calculated R [place] -7 degrees MUSE SYSTEM Calculated T [place] -35 degrees MUSE SYSTEM INTERPRETATION Sinus rhythm [...] II, MD ECG ORDERABLES Performing Organization Address City/State/ZIP Code Phon e Number MUSE SYSTEM (ABNORMAL) Differential, Automated (01/22/2015 2:00 PM EDT) [facility] gist Method Time Signature Neutrophils % 86.1 [...] Organization Address City/State/ZIP Code Phon e Number [place] [id number] CERNER MILLENNIUM (ABNORMAL) Hemogram [...] 10.9 - CERNER 14.4 % MILLENNIUM MPV 9.7 9.0 - 12.0 CERNER fL MILLENNIUM Specimen Anatomical Collection Method Collection Time Receive d Time (Source) Location / / Volume Laterality Blood specimen 01/22/2015 2:00 PM 015 2:25 (specimen) EDT PM EDT Resulting Agency Comment Spec In Lab Yury Colon MD HEMATOLOGY ORDERABLES Performing Organization Address City/State/[place] [address] CERNER MILLENNIUM (ABNORMAL) APTT (01/22/2015 2:00 PM EDT) P athologist Signature PTT 56 (H) 25 - 35 sec CERNER MILLENNIUM Comment: Recommended therapeutic PTT range for fu ll dose unfractionated heparin is 80-114 seconds. Specimen Anatomical Collection Method Collection Time Receive d Time (Source) Location / / Volume Laterality Blood specimen 01/22/2015 2:00 PM 015 2:25 (specimen) EDT PM EDT Resulting Agency Comment Spec In Lab Yury Colon MD HEMATOLOGY ORDERABLES Performing Organization Address City/[facility]/[place] [address] CERNER MILLENNIUM (ABNORMAL) Prothrombin Time (01/22/2015 2:00 PM EDT) athologist Signature PT 57.1 12.5 - CERNER (Critical) 15.5 sec MILLENNIUM Comment: Called by: j carlos, Read back by: fan mccallum, Date/Time:01/22/15 15:05. Transfusion Committee Guidelines: INR less than 2.0, PTT less than OR equal to 43.5 seconds, or Fibrinogen greater t fernandes or equal to 100 mg/dl indicate adequate procoagulant activity for hemos tasis in patients without underlying bleeding disorders. INR 5.9 (H) 0.9 - 1.1 CERNER MILLENNIUM Specimen Anatomical Collection Method Collection Time Receive d Time (Source) Location / / Volume Laterality Blood specimen 01/22/2015 2:00 PM 015 2:25 (specimen) EDT PM EDT Resulting Agency Comment Spec In Lab Yury Colon MD HEMATOLOGY ORDERABLES Performing Organization Address City/[facility]/[place] [address] CERNER MILLENNIUM (ABNORMAL) CMP [...] of Diabetes Mellitus, Position Statement from the [employer]. ??Diabete s Care, Volume 33, Supplement 1, Aug 2009 BUN 20 (H) 8 - 18 mg/dL CERNER MILLENNIUM Creatinine 0.71 0.70 - 1.20 mg/dL CERNER MILL ENNIUM Comment: Please note that the pediatric reference intervals supplied above were not validated at [facility]. Results from pediatri c patients should be interpreted in conjunction to the patient's age, height and muscle mass. Sodium 132 (L) 135 - 145 mmol/L CERNER JARETH NIUM Potassium 3.3 (L) 3.5 - 5.0 mmol/L CERNER JARTEH NIUM Comment: Please note: ??Patients with WBC [...] Gap 20 (H) 5 - 15 mmol/L CERNER MILLENNIU M Calcium 7.7 (L) 8.5 - 10.5 mg/dL CERNER JARETH NIUM Total Protein 6.6 6.1 - 8.0 gm/dL CERNER MIL LENNIUM Albumin 3.6 3.2 - 5.2 gm/dL CERNER MILLENN IUM AST 33 (H) 0 - 30 unit/L CERNER MILLENNIU M ALT 42 (H) 0 - 30 unit/L BECKIE FELTONIU M Alk Phos 137 (H) 40 - 104 unit/L BECKIE FELTON IUM Total Bilirubin 0.6 0.2 - 1.3 mg/dL BECKIE Veloz ILLENNIUM Bili, Direct 0.2 0.0 - 0.3 mg/dL [place] JAIN ENNIUM Estimated GFR >60 >=60 BECKIE FELTONIU M Comment: This estimated GFR (eGFR) value [...] the following links into your internet browser. [email or web address]://[email or web address] [email or web address] Specimen Anatomical Collection Method Collection Time Receive d Time (Source) Location / / Volume Laterality Blood specimen 01/22/2015 2:00 PM 015 2:25 (specimen) EDT PM EDT Resulting Agency Comment Spec In Lab Yury Colon MD CHEMISTRY ORDERABLES Performing Organization Address City/State/ZIP Code [place] [address] BECKIE FLORES documented in this encounter Visit Diagnoses Not on filedocumented in this encounter Administered Medications Inactive Administered Medications - up to 3 most recent administrations Medication Order MAR Action Action Date Dose Rate Site fentaNYL 50 mcg/mL multi-dose Given 01/22/2015 6:16 PM EDT 25 mc g injection ONCE PRN, Starting on Rena 01/22/15 at 1816, Until Rena 01/22/15 at 1935, Intra-Operative (Intra-Procedure), Routine midazolam (PF) (VERSED) 1 mg/mL multi-dose Given 01/22/2015 6:14 PM EDT 1 mg injection ONCE PRN, Starting on Rena 01/22/15 at 1814, Until Rena 01/22/15 at 1935, Cath (Intra-Procedure), Routine sodium chloride 0.9% infusion New Bag 01/22/2015 6:05 PM EDT 10 mL/hr 10 mL/hr CONTINUOUS PRN, Starting on Rena 01/22/15 at 1805, Until Rena 01/22/15 at 1935, Cath (Intra-Procedure) documented in this encounter Active and Recently Administered Medications Times are shown in EDT. Scheduled Medication Order 01/26/2015 01/27/2015 01/28/2015 acetaminophen (TYLENOL) tablet 1,000 mg (CANCELED) 085 6 (Given - Provider: Shadia Rodriguez RN)1600 (Given - Provider: Shadia Rodriguez RN)2035 (Given - Provider: Jarett Davison RN) 0902 (Given - Provider: Ella Trent N)154 (Given - Provider: Shadia Rodriguez RN)213 (Given - Provider: Brian Goff, KALA) 0538 (Given - Provider: Brian Goff RN) 1,000 mg, Oral, 3 TIMES DAILY, First dos e on 01/24/15 at 1500, Until Discontinued, Maximum dose of acetaminophen is 4000 mg from all sources in 24 hours., Routine chlorhexidine (PERIDEX) 0.12 % oral solution 15 mL (CA NCELED) 0900 (Given - Provider: Shadia Rodriguez RN)2035 (Given - Provider: Jarett Davison RN) 09 (Given - Provider: Shadia Rodriguez RN)2140 (Given - Provider: Brian Goff, KALA) 0900 (Given - Provider: Rosamaria Park, RN) 15 mL, Oral, EVERY 12 HOURS SCHEDULED (2 times per day), First dose on Rena 01/22/15 at 2100, Until Discontinued, To brush teeth, Routine esomeprazole (NexIUM) capsule 40 mg (CANCELED) 0856 (G iven - Provider: Shadia Rodriguez RN) 09 (Given - Provider: Shadia Rodriguez RN) 0926 (Given - Provider: Rosamaria Park, RN) 40 mg, Oral, DAILY, First dose on Rena 06/28 at 1500, Until Discontinued, Routine HYDROmorphone (DILAUDID) injection 0.2 mg (COMPLETED) 011 (Given - Provider: aJrett Davison RN) 0.2 mg, Intravenous, ONCE, 1 [...] Jarett Davison RN) 0539 (Given - Provider: Biran Goff RN) 112 mcg, Oral, EVERY MORNING, [...] mg (COMPLETED) 1540 (Given - Provider: Shadia Rodriguez, KALA) 1.25 mg, Oral, ONCE, 1 dose, Mon01/27/15 at 1315, Routine predniSONE (DELTASONE) tablet 20 mg 203 (Given - Provider: Greg Davison RN) 0926 (Given - Provider: Rosamaria Park, KALA) 20 mg, Oral, DAILY, First dose on Mon at 2100, Until Discontinued, Routine simvastatin (ZOCOR) tablet 20 mg (CANCELED) 1612 (Give n - Provider: Shadia Rodriguez RN) 1741 (Given - Provider: Shadia Rodriguez, RN) 1740 (Given - Provider: Rosamaria [...] Rodriguez, RN)1820 (See Alternative - Provider: Shadia Rodriguez, RN) 0454 (See Alternative - Provider: Jarett Davison RN)0902 (See Alternative - Provider: Shadia Rodriguez RN)1320 (See Alternative - Provider: Shadia Rodriguez, RN)1741 (Given - Provider: Shadia Rodriguez, RN) 2 mg, Oral, EVERY 4 HOURS PRN, Starting 01/26/15 at 0242, Until Mon01/28/15 at 0608, Pain, for mild pain (1-3), May give an additional 2 mg once if pain not relieved in 30-60 minutes., Routine 2346 (See Alternative - Provider: Jarett Davison RN) HYDROmorphone (DILAUDID) tablet 4 mg (CANCELED) 0333 ( Given - Provider: Jarett Davison RN)0857 (Given - Provider: Shadia Rodriguez, RN)1349 (Given - Provider: Shadia Rodriguez, RN)1820 (Given - Provider: Shadia Rodriguez RN)2346 (Given - Provider: Jarett Davison RN) 0454 (Given - Provider: Ella Pizano N)0902 (Given - Provider: Shadia Rodriguez, RN)1320 (Given - Provider: Shadia Rodriguez RN)1741 (See Alternative - Provider: Shadia Rodriguez [...] tab let 0857 (Given - Provider: Shadia Rodriguez, RN) 0929 (Given - Provider: Marquis Park RN) 1 tablet, Oral, 2 TIMES DAILY PRN, Start ing Mon01/26/15 at 0526, Until Mon01/28/15 at 2030, Constipation, Give if no bowel movement qd., Routine documented in this encounter Care Teams Logging Engineer Relationship Specialty Start Date End Date Charlene Morgan APRN PCP - General 04/26/13 06/08/15 documented as of this encounter
--- OUTSIDE RECORDS SUMMARY | 2022-05-27 14:56 | XMS_ITS | Encounter Summary ---
:1960 Author Organization [facility] [place] [address] Care Team Providers Name Role Phone Maria Fournier APRN Primary Care Provider Encounter Details Date Type Department Care Team Description 05/30/2012 Orders Only Anesthesiology Mia Wu, KOLE [facility] [place] [address] PRE-ADMISSION TESTING [phone] [place], [place] [address] Anesthesia Record Procedure Summary Procedure Name Responsible [...] 0000 by Nohemi , 04/11/22 1715 by Nohemi, (LDA cleanup utility KALA Salazar RA#[id number]); 1715 (LDA cleanup utility RA#[id number]) PIV 06/01/12; 1055; 06/02/12; 06/01/12 1055 by Junior, 06/02/12 0828 by Simón 28 Jayda Barraza RN Jennifer Veloz, YAMILKA documented in this encounter Social History Tobacco [...] on filedocumented in this encounter Care Teams Artist Relationship Manager Relationship Specialty Start Date End Date Maria Fournier APRN PCP - General 07/06/10 09/09/12 documented as of this encounter
--- OUTSIDE RECORDS SUMMARY | 2022-05-27 14:56 | XMS_ITS | Encounter Summary ---
:1960 Author Organization [facility] [place] [address] Care Team Providers Name Role Phone ShantanuMaria singer EDUARDO Primary Care Provider Reason for Visit Reason Onset Date Comments Other 06/28/2012 Encounter Details Date Type Department Care Team Description 06/28/2012 Telephone Rheumatology at [facility] Zeinab Torres, [place] [address] Social History Tobacco Use Types Packs/Day [...] this encounter Miscellaneous Notes Telephone Encounter - Zeinab Torres RN - 06/28/2012 2:59 PM EST Lola has called back. This nurse tried her again. Reached Lola who asks for confirmation of past appt. Was able to offer confirmation that pt was in our clinic on 06/11/[address] Bart Lowe. Pt wasnot here today in rheumatology. Lola asks about up coming appts, none currently scheduled. Telephone Encounter - Zeinab Torres RN - 06/28/2012 11:15 AM EST Pt asking that we call the [facility] pt financial assistance program called [facility] to confirm for employees there that she was seen in our clinic. This is in regards to reimbursement for gas money. Pt asks that we call a Lola Alexander at [phone]. Called the number provided but just got voicemail. Asked for callback in regards to this pt's request. documented in this encounter Plan of Treatment Not on filedocumented as of this encounter Visit Diagnoses Not on filedocumented in this encounter Care Teams Service Member Relationship Specialty Start Date End Date Maria Fournier APRN PCP - General 07/06/10 09/09/12 documented as of this encounter
--- OUTSIDE RECORDS SUMMARY | 2022-05-27 14:56 | XMS_ITS | Encounter Summary ---
:1960 Author Organization [facility] [place] [address] Care Team Providers Name Role Phone Unknown Primary Care Provider Unavailable Reason for Visit Reason Comments Follow-up Encounter Details Date Type Department Care Team Description 02/11/2013 Follow-Up Hematology and Farzaneh Valera cutis [place] [facility] [place] (Primary Dx) [facility] [place] [address] HEMATOLOGY/ONCOLOGY [phone] DEPT[address] [place], [place] [address] (Wo rk) Social History Tobacco [...] Sign Reading Time Taken Comments Blood Pressure 151/80 02/11/2013 4:13 PM EDT Pulse 62 02/11/2013 4:13 PM EDT Temperature - - Respiratory Rate 17 02/11/2013 4:13 PM EDT Oxygen Saturation 98% 02/11/2013 4:13 PM EDT Inhaled Oxygen Concentration - - Weight 88.3 kg (194 lb 10.7 oz) 02/11/2013 4:13 PM EDT Height 165 cm (5' 4.96) 02/11/2013 4:13 PM EDT Body Mass Index 32.43 02/11/2013 4:13 PM EDT documented in this encounter Progress Notes Farzaneh Valera MD - 02/11/2013 4:52 PM EDT Images from the original note were not included. [place] [address] FOLLOW-UP PATIENT EVALUATION PROBLEM LIST: [...] W/U to date w/ neg ECHO at [facility]. CT w/ one para-aortic 2cm LN which we will follow. Neg SPEP and 24 hour urine at [facility]. Neg fat pad biopsy. BMBx not yet completed. a. repeat CT, February 2010, with no pathologically enlarged adenopathy. Bone marrow biopsy negative for amyloid and lymphoma. INTERIM HISTORY OF PRESENT ILLNESS: Ms. 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 She notes more skin nodules on shins. They bother her cosmetically and she hides her legs. R med denson w/ 2.8 cm 2.5cm raised amyoid deposit. R latter calf with .7X 0.7 inch nodule A couple smaller ones as well. On L denson w/ several small 1cm lesions on R denson. No other sx/sx of systemic amyloid. ROS Energy level:stable Pain: No Appetite:good Fevers/chills/sweats:No Bruising/bleeding/melena:No Recent infections:No HEENT: negative Nausea/vomiting/diarrhea/constipation:No SOB/NOBLE/chest pain:No Change in adenopathy or other masses:No Unexpected weight loss or gain:No Skin rashes or petechiae:as above Musculoskeletal complaints:No Extremities: Negative upper and lower bilaterally Neurologic symptoms:No MEDS: Current Outpatient Prescriptions on File Prior to Visit Medication Sig Dispense Refill ??? levothyroxine (SYNTHROID) 125 mcg tablet Take [...] Tartrate (XOPENEX HFA) 45 mcg/Actuation inhaler ??? DISCONTD: fluticasone (FLONASE) 50 mcg/actuation nasal spray 1 spray by Each Nare route daily. 16 g 12 ??? DISCONTD: calcium carbonate 648 mg calcium tablet Take 2 tablets by mouth 3 times daily. ??? DISCONTD: cholecalciferol, Vitamin D3, 400 unit tablet Take 1 tablet by mouth 3 times daily. ??? DISCONTD: OXYcodone (ROXICODONE) 5 mg immediate release tablet Take 1-2 tablets by mouth every 4hours as needed for Pain. 30 tablet 0 ??? DISCONTD: loratadine (CLARITIN) 10 mg tablet Take 10 mg by mouth daily. 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 Yusuf appears well and is [...] nodules on bilateaal shins per HPI above. NEUROLOGICAL: Alert and oriented to person, place and time. MUSCULOSKELETAL: No spinal or chest wall tenderness. Largest lesion R med calf LABORATORY STUDIES Recent Results (from the past 24 hour(s)) CBC (WITH DIFF) Component Value Range WBC 7.0 4.0 - 10.0 x10(3)/mcL RBC 5.02 3.93 - 5.22 x10(6)/mcL Hemoglobin 14.3 11.2 - 15.7 gm/dL Hematocrit 41.4 34.0 - 45.0 % MCV 82.5 79.0 - 94.0 fL MCH 28.5 26.6 - 32.2 pg MCHC 34.5 32.0 - 36.5 gm/dL Platelets 274 145 - 370 x10(3)/mcL RDWSD 40.5 35.0 - 46.0 fL RDWCV 13.5 10.9 - 14.4 % MPV 9.6 9.0 - 12.0 fL COMPREHENSIVE METABOLIC PANEL (NON-FASTING) Component Value Range Glucose Lvl 92 60 - 199 mg/dL BUN 10 8 - 18 mg/dL Creatinine 0.62 (*) 0.70 - 1.20 mg/dL Sodium 140 135 - 145 mmol/L Potassium 3.8 3.5 - 5.0 mmol/L Chloride 104 98 - 107 mmol/L CO2 24 22 - 31 mmol/L Anion Gap 12 5 - 15 mmol/L Calcium 8.6 8.5 - 10.5 mg/dL Total Protein 6.8 6.4 - 8.3 gm/dL Albumin 4.4 3.2 - 5.2 gm/dL AST 27 0 - 30 unit/L ALT 25 0 - 30 unit/L Alk Phos 79 40 - 104 unit/L Total Bilirubin 0.2 0.2 - 1.3 mg/dL Bili, Direct 0.1 0.0 - 0.3 mg/dL Estimated GFR >60 >=60 PROTEIN ELECTROPHORESIS, SERUM Component Value Range Total Prot Elec 6.4 6.1 - 8.0 gm/dL DIFFERENTIAL, AUTOMATED Component Value Range Neutrophils % 73.1 (*) 34.0 - 71.0 % Neutr Abs (ANC) 5.16 1.50 - 6.30 x10(3)/mcL Lymphocytes % 15.5 (*) 19.0 - 53.0 % Lymphocytes Abs 1.1 1.0 - 3.6 x10(3)/mcL Monocytes % 9.1 4.0 - 13.0 % Monocyte Abs 0.6 0.2 - 1.0 x10(3)/mcL Eosinophils % 1.7 0.0 - 7.0 % Eosinophils Abs 0.1 0.0 - 0.5 x10(3)/mcL Basophils % 0.3 0.0 - 2.0 % Basophils Abs 0.0 0.0 - 0.2 x10(3)/mcL Immature Gran % 0.30 0.00 - 0.66 % Cheryl Gran Abs 0.02 0.00 - 0.05 x10(3)/mcL RADIOLOGY STUDIES REVIEWED: none ASSESSMENT/PLAN: 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 The SQ nodules continue to progress. They bother her cosmetically. Unfortunately excision or XRT are likely to not cure problem and may not improve overall cosmetic result. Sysetmic w/u neg in past. Will plan to see her back in one year w/ Dr. Whitney. She will get labs and CT CAP at that time. I was going to get the CT in the next few weeks but in review of her history it seem premature to repeat CT. If the next CT is stable then I do not see indication for further imaging. Pt seen in multidisciplinary clinic with Dr. Whitney of Dermatology. total time:30 time in counsellin Copy Maria Fournier APRN documented in this encounter Plan of Treatment Not on filedocumented as of this encounter Procedures Procedure Name Priority Date/Time Associated Comments Diagnosis IMMUNOGLOBULIN FREE STAT 02/11/2013 2:49 Amyloidosis cutis Results for this LIGHT CHAINS, SERUM PM EDT procedur e are in the results section. DIFFERENTIAL, AUTOMATED STAT 02/11/2013 2:49 Amyloidosis cu tis Results for this PM EDT procedure are i n the results section. CBC (WITH DIFF) STAT 02/11/2013 2:49 Amyloidosis cutis Resu lts for this PM EDT procedure are i n the results section. PROTEIN STAT 02/11/2013 2:49 Amyloidosis cutis Results for this ELECTROPHORESIS, SERUM PM EDT proce dure are in the results section. COMPREHENSIVE METABOLIC STAT 02/11/2013 2:49 Amyloidosis cu tis Results for this PANEL (NON-FASTING) PM EDT procedur e are in the results section. documented in this encounter Results (ABNORMAL) Free Light Chains, Serum (03/10/2014 10:48 AM EDT) Patholo gist Method Time Signature [place] Free 1.72 0.33 - CERNER Light Chains 1.94 mg/dL MILLENNIUM Lambda Free 1.00 0.57 - CERNER Light Chains 2.63 mg/dL MILLENNIUM [place]/Lambda 1.7200 (H) 0.2600 - CERNER Free Light 1.6500 MILLENNIUM Chain Ratio Specimen Anatomical Collection Method Collection Time Receive d Time (Source) Location / / Volume Laterality Blood specimen 03/10/2014 10:48 4 (specimen) AM EDT 10:53 AM EDT Resulting Agency Comment Spec In Lab Farzaneh Valera MD CHEMISTRY ORDERABLES Performing Organization Address City/State/[place] [address] CERNER MILLENNIUM Immunoglobulins, Quantitative (03/10/2014 10:48 AM EDT) P athologist Signature IgG 819 700 - 1600 CERNER mg/dL MILLENNIUM IgA 76 70 - 400 CERNER mg/dL MILLENNIUM IgM 218 40 - 230 CERNER mg/dL MILLENNIUM Specimen Anatomical Collection Method Collection Time Receive d Time (Source) Location / / Volume Laterality Blood specimen 03/10/2014 10:48 4 (specimen) AM EDT 10:53 AM EDT Resulting Agency Comment Spec In Lab Farzaneh Valera MD CHEMISTRY ORDERABLES Performing Organization Address City/[facility]/ZIP Code Phon e Number [address] CERNER MILLENNIUM Protein Electrophoresis, serum (03/10/2014 10:48 AM EDT) Patholo gist Method Time Signature Total Prot 6.4 6.4 - 8.3 CERNER Elec gm/dL MILLENNIUM Albumin Elect 4.22 3.60 - 6.00 CERNER gm/dL MILLENNIUM Alpha1-Globul 0.21 0.10 - 0.30 CERNER in gm/dL MILLENNIUM Alpha2-Globul 0.72 0.40 - 0.90 CERNER in gm/dL MILLENNIUM Beta Globulin 0.53 0.50 - 1.00 CERNER gm/dL MILLENNIUM Gamma 0.71 0.50 - 1.30 CERNER Globulin gm/dL MILLENNIUM M1 Band None None CERNER Detected Detected MILLENNIUM gm/dL Scan See Note CERNER MILLENNIUM Comment: Please see scanned report in Ch art Review under the [facility] Laboratory Heading. Specimen Anatomical Collection Method Collection Time Receive d Time (Source) Location / / Volume Laterality Blood specimen 03/10/2014 10:48 4 (specimen) AM EDT 10:53 AM EDT Narrative This result has an attachment that is no t available. Resulting Agency Comment Spec In Lab Farzaneh Valera MD CHEMISTRY ORDERABLES Performing Organization Address City/[facility]/ZIP Code Phon e Number [address] CERNER MILLENNIUM (ABNORMAL) Lactate Dehydrogenase (03/10/2014 10:48 AM EDT) P athologist Signature LDH 243 (H) 110 - 220 CERNER unit/L MILLENNIUM Specimen Anatomical Collection Method Collection Time Receive d Time (Source) Location / / Volume Laterality Blood specimen 03/10/2014 10:48 4 (specimen) AM EDT 10:53 AM EDT Resulting Agency Comment Spec In Lab Farzaneh Valera MD CHEMISTRY ORDERABLES Performing Organization Address City/State/ZIP Code Phon e Number [place] [phone] CERNER MILLENNIUM Comprehensive metabolic panel (non-fasting) (03/10/2014 10:48 AM EDT) P athologist Signature Glucose Lvl 102 60 - 199 CERNER mg/dL MILLENNIUM Comment: Diabetes: >=200 mg/dL plus symp toms BUN 9 8 - 18 mg/dL CERNER MILLENNIUM Creatinine 0.74 0.70 - 1.20 mg/dL CERNER MILL ENNIUM [...] estions. Chloride 100 98 - 107 mmol/L CERNER MILLENN IUM CO2 26 22 - 31 mmol/L CERNER MILLENNI UM Anion Gap 13 5 - 15 mmol/L CERNER MILLENNIU M Calcium 8.5 8.5 - 10.5 mg/dL CERNER JARETH NIUM Total Protein 6.9 6.4 - 8.3 gm/dL CERNER MIL LENNIUM Albumin 4.3 3.2 - 5.2 gm/dL CERNER MILLENN IUM AST 26 0 - 30 unit/L CERNER MILLENNIU M ALT 24 0 - 30 unit/L CERNER MILLENNIU M Alk Phos 86 40 - 104 unit/L CERNER MILLENN IUM [...] the following links into your internet browser. [email or web address] Specimen Anatomical Collection Method Collection Time Receive d Time (Source) Location / / Volume Laterality Blood specimen 03/10/2014 10:48 4 (specimen) AM EDT 10:53 AM EDT Resulting Agency Comment Spec In Lab Farzaneh Valera MD CHEMISTRY ORDERABLES Performing Organization Address City/State/ZIP Code Phon e Number [place] [phone] CERNER MILLENNIUM (ABNORMAL) Differential, Automated (02/11/2013 2:49 PM EDT) [facility] Method Time Signature Neutrophils % 73.1 (H) 34.0 - CERNER 71.0 % MILLENNIUM Neutr Abs (ANC) 5.16 1.50 - CERNER 6.30 MILLENNIUM x10(3)/mc L Lymphocytes % 15.5 (L) 19.0 - CERNER 53.0 % MILLENNIUM Lymphocytes Abs 1.1 1.0 - 3.6 CERNER x10(3)/mc MILLENNIUM L Monocytes % 9.1 4.0 - CERNER 13.0 % MILLENNIUM Monocyte Abs 0.6 0.2 - 1.0 CERNER x10(3)/mc MILLENNIUM L Eosinophils % 1.7 0.0 - 7.0 CERNER % MILLENNIUM Eosinophils Abs 0.1 0.0 - 0.5 CERNER x10(3)/mc MILLENNIUM L Basophils % 0.3 0.0 - 2.0 CERNER % MILLENNIUM Basophils Abs 0.0 0.0 - 0.2 CERNER x10(3)/mc MILLENNIUM L Immature Gran % 0.30 0.00 - CERNER 0.66 % MILLENNIUM Comment: [...] PM 013 3:03 (specimen) EDT PM EDT Farzaneh Valera MD HEMATOLOGY ORDERABLES Performing Organization Address City/[facility]/ZIP [facility] Phon e Number [address] CERNER MILLENNIUM Free Light Chains, Serum (02/11/2013 2:49 PM EDT) P athologist Signature [place] Free 1.75 0.33 - CERNER Light Chains 1.94 mg/dL MILLENNIUM Lambda Free 1.19 0.57 - CERNER Light Chains 2.63 mg/dL MILLENNIUM [place]/Lambda 1.4706 0.2600 - CERNER Free Light 1.6500 MILLENNIUM Chain Ratio Specimen Anatomical Collection Method Collection Time Receive d Time (Source) Location / / Volume Laterality Blood specimen 02/11/2013 2:49 PM 013 3:03 (specimen) EDT PM EDT Resulting Agency Comment Spec In Lab Farzaneh Valera MD CHEMISTRY ORDERABLES Performing Organization Address City/[facility] Phon e Number [address] CERNER MILLENNIUM Protein Electrophoresis, [...] Organization Address City/State/[place] [address] CERNER MILLENNIUM (ABNORMAL) Comprehensive metabolic panel (non-fasting) (02/11/2013 2:49 PM EDT) athologist Signature Glucose Lvl 92 60 - [...] M Calcium 8.6 8.5 - 10.5 mg/dL CERTAINA JARETH NIUM Total Protein 6.8 6.4 - 8.3 gm/dL CERNER MIL LENNIUM Albumin 4.4 3.2 - 5.2 gm/dL CERNER MILLENN IUM AST 27 0 - 30 unit/L CERNER MILLENNIU M ALT 25 0 - 30 unit/L CERNER MILLENNIU M Alk Phos 79 40 - 104 unit/L CERNER MILLENN IUM Total Bilirubin 0.2 0.2 - 1.3 mg/dL NANDONER M ILLENNIUM Bili, Direct 0.1 0.0 - [...] Organization Address City/State/[place] [address] CERNER MILLENNIUM CBC (with [...] Platelets 274 145 - 370 CERNER x10(3)/mcL ENNIUM RDWSD 40.5 35.0 - 46.0 CERNER fL MILLENNIUM RDWCV 13.5 10.9 - 14.4 CERNER % MILLENNIUM MPV 9.6 9.0 - 12.0 [facility]ER fL [facility] Specimen Anatomical Collection Method Collection Time Receive d Time (Source) Location / / Volume Laterality Blood specimen 02/11/2013 2:49 PM 013 3:03 (specimen) EDT PM EDT Resulting Agency Comment Spec In Lab Farzaneh Valera MD HEMATOLOGY ORDERABLES Performing Organization Address City/State/[place] [address] [facility] documented in this encounter Visit Diagnoses Diagnosis Amyloidosis cutis - Primary Other amyloidosis documented in this encounter Care Teams Shipyard Helper Relationship Specialty Start Date End Date Unknown PCP - General 09/10/12 04/25/13 None documented as of this encounter
--- OUTSIDE RECORDS SUMMARY | 2022-05-27 14:56 | XMS_ITS | Encounter Summary ---
:1960 [place] [address] Care Team Providers Name Role Phone ShantanuArchie monsalve EDUARDO Primary Care Provider Encounter Details Date Type Department Care Team Description 06/01/2012 Surgery Main Operating Room Linda Choi, THYROIDECTOMY, TOTAL OR Raegan Varghese MD COMPLETE (WRVU 15.04) [facility] [address] [place] [address] [place] [address] [phone] (Wo rk) Social History Tobacco Use Types [...] Sign Reading Time Taken Comments Blood Pressure 176/86 06/01/2012 2:00 PM EDT Pulse 77 06/01/2012 2:00 PM EDT Temperature 36.8 ??C (98.2 ??F) 06/01/2012 1:04 PM EDT Respiratory Rate 21 06/01/2012 2:00 PM EDT Oxygen Saturation 90% 06/01/2012 2:00 PM EDT Inhaled Oxygen Concentration - - Weight 87.1 kg (192 lb) 06/01/2012 10:23 AM EDT Height 169.2 cm (5' 6.6) 06/01/2012 10:23 AM EDT Body Mass Index 30.43 06/01/2012 10:23 AM EDT documented in this encounter Discharge Instructions Patient InstructionsMela Ahuja MD - 06/01/2012 4:31 PM EDT Instructions following Thyroid or Parathyroid Surgery What to Expect Following Surgery: Swelling and/or bruising under and around the incision is normal. It is usually greatest on the second or third day following surgery. You may also feel the sensation of swelling or firmness that can last for a month or more Your scar will be most visible for 1-2 months following your operation and will gradually fade over the next 6-8 months. As it heals, a scar looks more pink or red than the skin around it. You may feel a ???healing ridge?? directly under the incision. This is normal and will go away whenhealing is complete in 3-6 months. The skin just above and below your incision will feel numb. This will improve over several months but some patients may have long-term decrease in sensation over these areas You may notice minor difficulty in swallowing which will improve over time. Your voice may be hoarse or weak at first--because the surgery was near the voice box--but usually recovers over several weeks Incision Care: Keep dressing on your incision for the next 2 days, then you may remove dressing and leave incision open to air. Remove dressing and replace with dry gauze if it becomes saturated or wet in the next 2 days, replace as needed. If there are pieces of tape directly on the skin (steri-strips), please leave them on until they fall off on their own. You may trim them back as they peel up, or just remove them after 2 weeks. Once dressing is removed in 2 days you may shower and get incision wet. Pat dry immediately following. Do not scrub area vigorously for the next 2 weeks. Do not soak incision under water (i.e. bath or swimming) for the next 3 weeks to prevent a wound infection. Do not use any ointments/salves/Vitamin E on the incision until after your first follow-up appointment as these may impair early wound healing Incisions are sensitive to sunlight. For 1 year after surgery you should use sunscreen when outdoorsfor long periods of time to prevent permanent darkening of the scar. This includes tanning booths Diet & Activity: No restrictions in your diet are necessary. Activity as tolerated by your comfort level. You may return to work in 7 - 14 days or sooner if desired. NO DRIVING for at least 8 hours following any dose of an opioid pain medication if one was prescribed for you. Thyroid Hormone: If you had a thyroid operation, you may be prescribed thyroid hormone replacement (levothyroxine, synthroid, levothroid) to take daily. Usual starting dose is 125 mcg (micrograms) daily and we will give you an initial prescription for an 8 week supply. Take this at the same time each day. A blood test will performed at your first follow-up visit to ensure dosing is correct for you. Coumadin (Warfarin): You may restart your coumadin at your regular dose on Monday, June 04. Pain Management: Take NSAIDS like ibuprofen (motrin, advil), naproxen (Naprosyn, Aleve), or acetaminophen (Tylenol) every 6 hours for the first 3-5 days following surgery to help minimize pain. Use opioid (Percocet, Vicodin, Tylenol #3) pain medications for severe pain, and do not take with alcohol. To prevent Tylenol overdose do not take Tylenol doses within 4-6 hours before or after these medications (they contain Tylenol as well) Opioid medications typically cause constipation, so we suggest using a stool softener in addition (metamucil, colace...etc.) You may apply ice or cold packs to the incision for 15-20 minutes several times a day for the first 2-3 days following surgery to help with discomfort You may feel some stiffness/soreness in your shoulders, back, and neck. This may take a few days or weeks to go away completely. You may use moist warm heat, heating pad, or massage to these areas for 15-20 minutes several times a day. Do not be afraid to move your neck - gently flexing and stretching your neck muscles and light massage will help prevent stiffness Pathology Report: All specimens removed at surgery are analyzed by a pathologist. This report usually takes 4 businessdays to be ready. Dr. Choi will call you with this report as soon as it is available. Calcium Supplementation: Your body???s calcium levels may fall following a total thyroidectomy or parathyroid operation, which usually lasts only a few days. Take two 600 mg (1200mg total) calcium citrate tablets or capsules with 400mg vitamin D tablets or capsules (you can buy this over the counter at your pharmacy or grocery store) three times a day untilyou speak with Dr. Choi about your path report. He will review your need to continue this at that time. If you notice a tingling sensation in your hands, feet, around your mouth, or develop muscle spasms then please call the General Surgery nurse at [phone], since this may mean that you need morecalcium. Follow-up Appointment: Will be scheduled with Dr. Choi in 6 weeks Date and time as well as any required labs will be mailed to you Please call [phone] to confirm date and time of your appointment if you do not hear from us in the next 4 weeks Call Doctor for: Worsening redness or drainage from your incision lasting longer than 5 days following surgery Any foul-smelling drainage from the incision Fevers greater than 101 degrees F Persistent nausea or vomiting (this may be related to opioid pain medications) Tingling in your hands, feet or around your mouth, or muscle spasms not relieved by calcium supplementation. Phone number for questions: [phone] before 5 PM weekdays [phone] after 5 PM and on weekends/holidays AttachmentsThe following attachments cannot be sent through Care Everywhere. THYROIDECTOMY: WHAT TO EXPECT AT HOME ([place])documented in this encounter Medications at Time of Discharge Medication Sig Dispensed Refills Start Date End Date simvastatin (ZOCOR) 20 mg Take 20 mg by mouth 0 tablet nightly. calcium carbonate 648 mg Take 2 tablets by 0 05/1402/11/2013 calcium tablet mouth 3 times daily. cholecalciferol, Vitamin Take 1 tablet by 0 06/0102/11/2013 D3, 400 unit tablet mouth 3 times daily. levothyroxine (SYNTHROID) Take 1 tablet by 30 tablet 5 05/1401/22/2015 125 mcg tablet mouth every morning. OXYcodone (ROXICODONE) 5 Take 1-2 tablets by 30 tablet 0 02/11/2013 mg immediate release mouth every 4 hours tablet as needed for Pain. Inhalational Spacing by [facility].(Non-Drug; 1 each 2 012 01/22/2015 Device (VORTEX HOLDING Combo Route) route. CHAMBER ADULT) use with inhalers SpcrIndications: Asthma loratadine (CLARITIN) 10 Take 10 mg by mouth 0 02/11/2013 mg tablet daily. acetaminophen (TYLENOL Take by mouth as 0 011 02/22/2017 EXTRA STRENGTH) 500 mg needed. Reported on tablet 09/19/2016 WARFARIN SODIUM (WARFARIN 0 10/25/2010 01/28/2015 ORAL) fluticasone (FLOVENT HFA) 2 Puff(s), Inh, 0 10/2501/22/2015 110 mcg/Actuation inhaler Twice daily Levalbuterol Tartrate 0 10/25/201006/2015 (XOPENEX HFA) 45 mcg/Actuation inhaler documented as of this encounter Progress Notes Rebecca Hughes RN - 06/02/2012 9:55 AM EDT Discharged pt to home with friend. Gave discharge instructions and discussed them with patient. She states understanding. Scripts were sent to pharm. Pt assisted via wheelchair to entrance. IV removed.Pt paige. Food and drink. No c/o nausea and pain controlled with oxycodone. Gurwinder Puri - 06/02/2012 8:25 AM EDT Pod 1 thyroidectomy Doing well No acute events Pain well controlled toleratign po No dysphagia No strodor ambulatoyr Vitals and ins and outs reviewed nad cdi No swelling ctabl rrr Ready for dc Will restart coumadin at regular dose on Monday Farzaneh Montero RN - 06/01/2012 1:15 PM EDT Admitted to PACU. Hand off received from Ben Ibarra CRNA. See flowsheets for assessments. 1335states I can't catch my breath. Lung sounds clear throughout, 02 sats 100% on room air. Patient states this happens at home. 1430 intermittently states I feel woozy , occasionally states feels short of breath. Lungs and oxygen sats remain benign. Agrees that she feels anxios, reassurance provided, encouraged to rest. 1545 states comfortable, calmer, would like to go to room. Meets PACU D/C criteria. 1555 hand off to KALA Montelongo [facility] documented in this encounter H&P Notes Linda Choi MD - 05/31/2012 6:17 PM EDT H&P INTERVAL NOTE - 24 HOUR UPDATE I have reviewed the pre-procedure H&P completed by me on 05/21/12. Condition unchanged since H&P originally performed. Source Note - Linda Choi MD - 05/21/2012 11:53 AM EDT Reason for Visit: Francie Yusuf is a 52 y.o. female who is seen in consultation per ARCHIE GARCÍA APRN and Zack Magana MD because of a Symptomatic bilateral thyroid nodules. History of Present Illness: She Was noted to have a thyroid nodule about [address] Maynard who follow her for amyloidosis. She had an US and was referred to Dr. Magana for US guided FNA. US revealed: [facility] - Ultrasound Thyroid - [id number] Indications F/u nodules Right Lobe Date L(cm) [...] on physical exam. ROS: No H/O asthma, [place], stroke, pulmonary embolus or phlebitis. Comprehensive review [...] Device ([employer]ING CHAMBER ADULT) Spcr by [facility].(Non-Drug; Combo Route) route. use with inhalers [...] developed, well nourished 52 y.o. female in [facility]. Skin: warm, dry, good turgor, nonicteric. Neck: [...] agrees to proceed. Will sign in through [facility]. Consent is signed. Send copy to ARCHIE GARCÍA APRN and Zack Magana MD, Patricio Lowe MD and Farzaneh Maynard MD. documented in this encounter Miscellaneous Notes Miscellaneous - Provider, Scanning - 06/04/2012 11:08 PM EDT Op Note - Noam Weathers - 06/01/2012 4:33 PM EDT [facility] [place] Patient Name: Francie Yusuf : [id number] MR#: [id number] Case Date: 06/01/2012 Surgeon: Surgeon(s) and Role: * LINDA CHOI MD - Primary * NOAM WEATHERS MD - Resident-Surgeon Chief Preoperative diagnosis: MNG Postoperative diagnosis: MNG Procedure(s): THYROIDECTOMY, TOTAL OR COMPLETE FACIAL NERVE MONITORING, SETUP Anesthesia: General Estimated Blood Loss: 20cc Drains: none Disposition: awakened from anesthesia, extubated and taken to the recovery room in a stable condition, having suffered no apparent untoward event. Condition: doing well without problems (Please see the Surgical Encounter Summary for any Implant and Specimen details pertinent to this patient.) HPI/Surgical Indications: 52 y/o F with bilateral thyroid nodules and mild compression symptoms. Biopsies in 2010 were benign. Procedure Description: The patient was brought to the operating room and placed supine on the operating table. General endotracheal anesthesia was induced without event. A natural crease in the neckline was marked with a marking pen. This area was infiltrated with 0.25% Sensorcaine with epinephrine. The patient's anterior neck was then prepped and draped in sterile fashion. A timeout procedure was done and all members of the OR team were in agreement. A 15-blade was used to incise the skin over the area of the previously marked crease. The incision was carried down through the subcutaneous tissue and platysma muscle using electrocautery. The median raphe of the strap muscles was identified and this was divided in vertical fashion using electrocautery. This exposed the thyroid gland, which was from is lateral attachments to the strap muscles on the left side using electrocautery. The superior thyroid vessels were identified and divided using a combination of hand ties and harmonic scalpel. The dissection was then carried inferiorly, divided the middle thyroid vein and inferior pole vessels in a similar fashion. During the dissection, the left recurrent laryngeal nerve was identified and its function was confirmed using the laryngeal nerve stimulator. The parathyroid glands were also identified and preserved. The thyroid was taken off its attachments to the trachea using a combination of electrocautery and hand ties. The dissection on the right side was carried out in identical fashion. The right superior pole vessles, middle thyroid vein, and inferior pole vessels were divided with hand ties and the harmonic scalpel. The right recurrent laryngeal nerve was visualized and function confirmed with the nervestimulator. The total thyroid was sent to pathology as a specimen. A Valsalva maneuver to 30mm Hg was performed by anesthesia to evaluate hemostasis on both sides of the wound. Surgicel was placed along the trachea in the thyroid bed bilaterally. With meticulous hemostasis achieved, the strap muscles were reapproximated using a 4-0 Monocryl in running, partially locking fashion. The platysma muscle was closed with 4-0 Monocryl in a running, partially locking fashion. The skin was reapproximated using a 4-0 Monocryl in a running subcuticular fashion. A dry, sterile dressing was placed over the wound. All counts were correct at the conclusion of the case. The patient tolerated the procedure well and was extubated in the operating room without event. The patient was taken to the PACU in stable condition. Miscellaneous - Provider, [facility] - 06/01/2012 2:12 PM EDT OR Attestation - Linda Choi MD - 06/01/2012 12:41 PM EDT Attestation: Case Date: 06/01/2012 I was present and I participated during the entire procedure (does not need to include opening and closing). LINDA CHOI MD 06/01/2012 Brief Op Note - Linda Choi MD - 06/01/2012 12:41 PM EDT Brief Operative Note Patient Name: Francie Gonzales [place] : [id number] MR#: [id number] Case Date: 06/01/2012 Surgeon: Surgeon(s) and Role: * LINDA CHOI MD - Primary * NOAM WEATHERS MD - Resident-Surgeon Chief Preoperative diagnosis: MNG Postoperative diagnosis: MNG Procedure(s): THYROIDECTOMY, TOTAL OR COMPLETE FACIAL NERVE MONITORING, SETUP Anesthesia: General Findings: Bi RLN identified and preserved. Complications: none Fluids: 500ml Estimated Blood Loss: 20ml Drains: none Disposition: awakened from anesthesia, extubated and taken to the recovery room in a stable condition, having suffered no apparent untoward event. Condition: doing well without problems (Please see the Surgical Encounter Summary for any Implant and Specimen details pertinent to this patient.) documented in this encounter Plan of Treatment Not on filedocumented as of this encounter Procedures Procedure Name Priority Date/Time Associated Comments Diagnosis POCT GLUCOSE Routine 06/01/2012 3:15 PM Results f or this EDT procedure are i n the results section. SURGICAL PATHOLOGY Routine 06/01/2012 1:06 PM Res ults for this REPORT EDT procedure are i n the results section. SPECIMEN TO PATHOLOGY Routine 06/01/2012 12:32 Re sults for this PM EDT procedure are i n the results section. FACIAL NERVE 06/01/2012 10:46 MNG MONITORING, SETUP AM EDT PERIPHERAL (WRVU 0.54) THYROIDECTOMY, TOTAL 06/01/2012 10:46 MNG OR COMPLETE (WRVU AM EDT 15.04) PROTHROMBIN TIME STAT 06/01/2012 10:20 Results for this AM EDT procedure are i n the results section. documented in this encounter Results POCT GLUCOSE (06/01/2012 3:15 PM EDT) P athologist Signature POC Glucose 145 60 - 199 CERNER mg/dL [facility] Comment: Supplemental ranges: <110 mg/dL before meals <200 mg/dL all other times of the day Specimen Anatomical Collection Method Collection Time Receive d Time (Source) Location / / Volume Laterality Blood specimen 06/01/2012 3:15 PM 012 3:15 (specimen) EDT PM EDT Linda Choi MD POINT OF CARE TEST ORDERABLE S Performing Organization Address City/State/[place] [address] [facility] SURGICAL PATHOLOGY REPORT (06/01/2012 1:06 PM EDT) Component Value Ref Test Analysis Performed At [facility] Range Method Time Signature Surgical [facility] Pathology ? [facility] Report ? Provider: ?? LINDA CHOI Pt. Name: ?? Valentine YUSUF ? Acc #: ?[id number] ?Pt. MRN: ?[id number] ? Col Date: ?? 06/01/20 12 ?/Sex: ?1960,(52 years),Female ? Rec Date: ?? 06/01/2012 ?LOC: ?[facility] ? SURGICAL PATHOLOGY ? ---Pathologic Diagnosis--- ? Thyroidectomy ?Multinodular goiter ?One (0/1) lymph node negative for malignancy ? 06/04/12 ? VAM ? 06/04/12 Verified by: ? Vish Yadav MD ? Pathologist ? (Electronic Si gnature) ? The attending pathologist whose signature appears o n this report has ? reviewed all diagnostic slides and has edited the massiel ss and/or ? microscopic portion of the report in rendering the fi nal pathologic ? diagnosis. ? ---Microscopic Description--- ? Slides reviewed, microscopic description not recorded . ? ---Gross Description--- ? Labeled/Fixative: ? Total thyroid, fresh. ? Qty/Size/Weight: ?Single, 7.1 x 4.1 x 2. 0 cm, 21 g. ? Tissue Description: ? Total thyroidectomy spec imen. ?External Surface: ?Smooth, tense, purple- red. ?Parathyroid(s) ? Not identified. ?Lesion: ?Multiple nodules are noted throughout both lobes ? including a large, quezada-yellow nodule in the right ? upper to mid lobe, up to 2.0 x 1.5 x 1.3 cm. ??There is focal calcification ? in one nodule in the left lower pole. ?Remaining parenchyma: ??Homogeneous, red-brown. ? Sections/Processing: ?Naturopathic Physician sections are submitted as follows: ? (1-6) right lobe from upper to lower pole; (7) ? sales representative [employer] isthmus; (8-12) left lobe from ? upper to lower pole. ??(R12) ??aje/PPS ? ---Clinical Information--- ? Specimen Submitted: ? A - Total thyroid ? Clinical History/Diagnosis: ? MNG Specimen (Source) Anatomical Collection Method Collection Time Re ceived Time Location / / Volume Laterality 06/01/2012 1:06 PM EDT Linda Choi MD PATHOLOGY/CYTOLOGY ORDERABLE S Performing Organization Address City/State/[place] [address] [facility] Specimen to Pathology (surgical or derm) (06/01/2012 12:32 PM EDT) Specimen Anatomical Collection Method Collection Time Receive d Time (Source) Location / / Volume Laterality AP Specimen 06/01/2012 12:32 06/01/2012 PM EDT 12:32 PM EDT Narrative CERNER PURNIMAIUM - 06/01/2012 12:32 PM EDT Specimen requisition ordered. ??Separate Pathology report to follow Linda Choi MD PATHOLOGY/CYTOLOGY ORDERABLE S Performing Organization Address City/[facility]/ZIP Code Phon e Number [address] [facility] Prothrombin Time (06/01/2012 10:20 AM EDT) P athologist Signature PT 12.8 11.9 - 14.7 [facility] SUSYENNIUM Comment: [facility] Transfusion Committee Guidelines: I NR less than 2.0, PTT less than OR equal to 43.5 seconds, or Fibrinogen gre ater than or equal to 100 mg/dl indicate adequate procoagulant activity for hemostasis in patients without underlying bleeding disorders. INR 1.0 0.9 - 1.1 [facility] Specimen Anatomical Collection Method Collection Time Receive d Time (Source) Location / / Volume Laterality Blood specimen 06/01/2012 10:20 2 (specimen) AM EDT 10:20 AM EDT Resulting Agency Comment Spec In Lab Heriberto Treviño MD HEMATOLOGY ORDERABLES Performing Organization Address City/State/ZIP Code Phon e Number [address] [facility] documented in this encounter Visit Diagnoses Not on filedocumented in this encounter Administered Medications Inactive Administered Medications - up to 3 most recent administrations Medication Order MAR Action Action Date Dose Rate Site acetaminophen (TYLENOL) tablet Given 06/02/2012 7:00 AM EDT 1,00 0 mg 1,000 mg 1,000 mg, Oral, EVERY 6 HOURS, First dose on Mon06/01/12 at 1330, Until Discontinued, Maximum dose of acetaminophen is 4000 mg from all sources in 24 hours., Routine Given 06/02/2012 12:30 AM EDT 1,000 mg Given 06/01/2012 7:00 PM EDT 1,000 mg BUpivacaine-epiNEPHrine 0.25 Given 06/01/2012 11:29 AM 1 mg 19- Surgical Site %-1:200,000 injection EDT ONCE PRN, Starting on Mon06/01/12 at 1129, Until Mon06/01/12 at 1554, Intra-Operative (Intra-Procedure), Routine calcium carbonate tablet 1,296 mg Given 06/02/2012 8:10 AM EDT 1,296 mg 1,296 mg (1,200 mg), Oral, 3 TIMES DAILY, First dose on Mon06/01/12 at 1500, Until Discontinued Given 06/01/2012 9:00 PM EDT 1,296 mg ceFAZolin (ANCEF) 1g in dextrose 5% 50mL Given 06/01/2012 11:06 AM EDT 1 g 1,000 mg (1 g), Intravenous, ONCE, 1 dose, On Mon06/01/12 at 1045, Administer over 30 Minutes, Redose after 4 hours., Day of Surgery (Day of Procedure), Indication for (Active or Suspected): Prophylaxis cellulose, oxidized (SURGICEL) Given 06/01/2012 12:26 PM 1 each 19- Surgical Site 4 x 8 pad EDT ONCE PRN, Starting on Mon06/01/12 at 1226, Until Mon06/01/12 at 1554, Intra-Operative (Intra-Procedure), Routine cholecalciferol (Vitamin D3) tablet 400 Given 06/02/2012 9:20 AM EDT 400 Units Units 400 Units, Oral, 3 TIMES DAILY, First dose on Mon06/01/12 at 1500, Until Discontinued, Routine Given 06/01/2012 9:00 PM EDT 400 Units fentaNYL 50mcg/mL injection Given 06/01/2012 3:10 PM EDT 25 mcg 25-50 mcg, Intravenous, EVERY 5 MIN PRN, Starting on Mon06/01/12 at 1256, Until Mon06/01/12 at 1601, Pain, for breakthrough pain, Hold for respiratory rate less than 10 per minute. Maximum dose: 250 mcg over one hour., PACU Recovery, Routine Given 06/01/2012 2:20 PM EDT 25 mcg Given 06/01/2012 1:43 PM EDT 50 mcg fluticasone (FLOVENT) 110 mcg/actuation Given 06/02/2012 8:11 AM EDT 2 puffs inhaler 2 puff 2 puff, Inhalation, 2 TIMES DAILY, First dose on Mon06/01/12 at 1345, Until Discontinued, Shake well; Rinse mouth after administration., Routine Given 06/01/2012 9:00 PM EDT 2 puffs Given 06/01/2012 1:45 PM EDT 2 puffs lactated ringers infusion 1,000 New Bag 06/01/2012 10:53 AM ED T 1,000 mLs 100 mL/hr mL 1,000 mL, at 100 mL/hr, Intravenous, CONTINUOUS, Starting on Mon06/01/12 at 1045, Until Mon06/01/12 at 1554, Day of Surgery (Day of Procedure) levothyroxine (SYNTHROID) tablet 125 mcg Given 06/02/2012 7:00 AM EDT 125 mcg 125 mcg, Oral, EVERY MORNING, First dose on 06/02/12 at 0600, Until Discontinued, Routine ondansetron (ZOFRAN) injection 4 mg Given 06/01/2012 4:36 PM EDT 4 mg 4 mg, Intravenous, EVERY 8 HOURS PRN, Starting on Mon06/01/12 at 1312, Until 06/02/12 at 1158, Nausea, Vomiting, If multiple antiemetics are ordered, use ondansetron first. May repeat times one in 30 minutes if ineffective. , Routine OXYcodone (ROXICODONE) immediate release Given 06/02/2012 9:20 A M EDT 10 mg tablet 5-10 mg 5-10 mg, Oral, EVERY 4 HOURS PRN, Starting on Mon06/01/12 at 1312, Until 06/02/12 at 1158, Pain, May repeat once in 30 minutes if ineffective., Routine Given 06/02/2012 5:12 AM EDT 5 mg documented in this encounter Active and Recently Administered Medications Times are shown in EDT. Scheduled Medication Order 05/31/2012 06/01/2012 06/02/2012 acetaminophen (TYLENOL) tablet 1,000 mg (CANCELED) 1415 (Given - Provider: Farzaneh Montero RN)1900 (Given - Provider: Jayda Anand RN) 0030 (Given - Provider: Sahara Estrada, RN)0130 (Canceled Entry - Provider: Jayda Anand RN)0700 (Given - Provider: Sahara Estrada RN) 1,000 mg, Oral, EVERY 6 HOURS, First dos e on Mon06/01/12 at 1330, Until Discontinued, Maximum dose of acetaminophen is 4000 mg from all sources in 24 hours., Routine calcium carbonate tablet 1,296 mg 1500 ( Not Given - Provider: Jayda Anand RN - Reason: See comment - Comment: Pt. nauseated)2100 (Given - Provider: Jayda Anand RN) 0810 (Given - Provider: Rebecca jordan RN) 1,296 mg, Oral, 3 TIMES DAILY, First dos e on Mon06/01/12 at 1500, Until Discontinued, Routine ceFAZolin (ANCEF) 1g in dextrose 5% 50mL (COMPLETED) 1045 (Due)1106 (Given - Provider: Suzie Parker MD) 1 g = 1,000 mg, Intravenous, ONCE, 1 dos e, Mon06/01/12 at 1045, for 30 Minutes, Redose after 4 hours., Day of Surgery (Day of Procedure) cholecalciferol (Vitamin D3) tablet 400 Units 1500 (Not Given - Provider: Jayda Anand RN - Reason: See comment - Comment: Pt. nauseated)2100 (Given - Provider: Jayda Anand RN) 0920 (Given - Provider: Rebecca jordan RN) 400 Units, Oral, 3 TIMES DAILY, First do se on Mon06/01/12 at 1500, Until Discontinued, Routine fluticasone (FLOVENT) 110 mcg/actuation inhaler 2 puff (CAN ELED) 1345 (Given - Provider: Farzaneh Montero RN)2100 (Given - Provider: Jayda Anand RN) 0811 (Given - Provider: Rebecca Hughes RN) 2 puff, Inhalation, 2 TIMES DAILY, First dose on Mon06/01/12 at 1345, Until Discontinued, Shake well; Rinse mouth after administration., Routine levothyroxine (SYNTHROID) tablet 125 mcg 0700 (Given - Provider: Sahara Estrada, KALA) 125 mcg, Oral, EVERY MORNING, First dose on 06/02/12 at 0600, Until Discontinued, Routine Continuous Medication Order 05/31/2012 06/01/2012 06/02/2012 lactated ringers infusion 1,000 mL (CANCELED) 1053 (New Bag - Provider: Jayda Pacheco, RN) 1,000 mL, at 100 mL/hr, Intravenous, CON TINUOUS, Starting Mon06/01/12 at 1045, Until Mon06/01/12 at 1554, Day of Surgery (Day of Procedure) PRN Medication Order 05/31/2012 06/01/2012 06/02/2012 BUpivacaine-epiNEPHrine 0.25 %-1:200,000 injection (CANCELED ) 1129 (Given - Provider: Linda Choi MD - Comment: 10ml given.) ONCE PRN, Starting Mon06/01/12 at 1129, Until Mon06/01/12 at 1554, Intra- Operative (Intra-Procedure), Routine cellulose, oxidized (SURGICEL) 4 x 8 pad (CANCELED) 1226 (Given - Provider: Linda Choi MD) ONCE PRN, Starting Mon06/01/12 at 1226, Until Mon06/01/12 at 1554, Intra- Operative (Intra-Procedure), Routine fentaNYL 50mcg/mL injection (CANCELED) 1 310 (Given - Provider: Farzaneh Montero RN)1324 (Given - Provider: Farzaneh Montero RN)1343 (Given - Provider: Farzaneh Montero RN)1420 (Given - Provider: Farzaneh Montero RN)1510 (Given - Provider: Farzaneh Montero RN) 25-50 mcg, Intravenous, EVERY 5 MIN PRN, Starting Mon06/01/12 at 1256, Until Mon06/01/12 at 1601, Pain, for breakthrough pain, Hold for respiratory rate less than 10 per minute. Maximum dose: 250 mcg over one hour., PACU Recovery, Routine ondansetron (ZOFRAN) injection 4 mg (CANCELED) 1636 (Given - Provider: Jayda Anand RN) 4 mg, Intravenous, EVERY 8 HOURS PRN, St arting 06/01/12 at 1312, Until 06/02/12 at 1158, Nausea, Vomiting, If multiple antiemetics are ordered, use ondansetron first. May repeat times one in 30 minutes if ineffective. , Routine OXYcodone (ROXICODONE) immediate release tablet 5-10 mg 0512 (Given - Provider: Melissa Marley RN)0920 (Given - Provider: Rebecca Hughes RN) 5-10 mg, Oral, EVERY 4 HOURS PRN, Starti ng Fri 06/01/12 at 1312, Until 06/02/12 at 1158, Pain, May repeat once in 30 minutes if ineffective., Routine documented in this encounter Care Teams Operation Research Analyst Relationship Specialty Start Date End Date Archie García APRN PCP - General 07/06/10 09/09/12 documented as of this encounter
--- OUTSIDE RECORDS SUMMARY | 2022-05-27 14:56 | XMS_ITS | Encounter Summary ---
:1960 Author Organization [place] [address] Care Team Providers Name Role Phone Maria Fournier APRN Primary Care Provider Reason for Visit Reason Comments Thyroid Nodule Encounter Details Date Type Department Care Team Description 05/03/2012 Office Visit Endocrinology at [facility] Zack Castro MD Thyroid nodule [address] [address] [place] [address] [phone] (Wo rk) Social History Tobacco Use Types [...] as of this encounter Patient Instructions Patient InstructionsZack Magana MD - 05/03/2012 10:54 AM EDT Nodules are unchanged. Thyroidectomy would be an option if neck symptoms develop. documented in this encounter Progress Notes Zack Magana MD - 05/03/2012 10:54 AM EDT Francie Yusuf is a 52 y.o. year old female who presents for follow-up. She has a history of thyroid nodules. Bilateral dominant nodules were biopsies in 2010 and found to be cytologically benign. History of H+N XRT exposure: No Family history of thyroid cancer: No Thyroid Compressive symptoms: Globus sensation: Yes Dysphagia: No Dysphonia: No Dyspnea: No Symptoms of thyroid hormone excess / deficiency: Heat intolerance: No Cold intolerance: No Diarrhea: No Constipation: No Weight loss / gain: No Anxiety: No Jitteriness: No Temors: No Palpitations: No Difficulty concentrating: No Lab Results Component Value Date/Time TSH 2.28 12/30/10 11:58 AM Review of Systems See HPI. All other systems negative. Physical Exam GENERAL: A+O x 3; Comfortable; Mood and affect appropriate. EYES: Sclera clear, no conjunctival injection; No stare, lid lag or proptosis. NECK: Trachea is midline; Thyroid not enlarged; There are no palpable thyroid nodules; No cervical adenopathy. SKIN: Skin is neither fine and moist nor excessively dry; No rashes noted. NEURO: Cranial nerves grossly intact; DTRs have normal relaxation phase. EXT: Gait and station normal; No tremor; No thyroid acropachy or pretibial myedema. THYROID ULTRASOUND: Indication: Thyroid nodule Date: 05/03/2012 Comparison: 11/15/2010 Real time images of the thyroid gland were obtained using a SonAcademixDirectaxx and an HFL38/[id number] broadband linear array transducer. Right Lobe: The right lobe is dominated by a large iso to hypoechoic nodule posteriorly that measures 1.2x1.8x3.0cm. Previously 1.2x1.7x3.2cm. The nodule has sharp margins; There are no intranodular calcifications; There is minimal flow on color doppler. Left Lobe: The left lobe is dominated by a large iso to hypoechoic nodule posteriorly that measures 1.6x1.7x2.1cm. Previously 1.6x1.6x2.1cm. The nodule has sharp margins; There are no intranodular calcifications; There is minimal flow on color doppler. ASSESSMENT / PLAN: Thyroid nodules Bilateral dominant nodules Minimal compressive symptoms Euthyroid Benign cytology in 2010 No significant interval change 2010 - 2011. We discussed the option of surgery if her compressive symptoms worsen. As her TSH is normal, there is no role for LT4. . documented in this encounter Plan of Treatment Not on filedocumented as of this encounter Visit Diagnoses Diagnosis Thyroid nodule Nontoxic uninodular goiter documented in this encounter Care Teams Cutter Hot Knife Relationship Specialty Start Date End Date Maria Fournier APRN PCP - General 07/06/10 09/09/12 documented as of this encounter
--- OUTSIDE RECORDS SUMMARY | 2022-05-27 14:56 | XMS_ITS | Encounter Summary ---
:1960 Author Organization [facility] Address [address] [place] [address] Care Team Providers Name Role Phone Morgan, Charleneblanco Degroot APRN Primary Care Provider Reason for Visit Reason Comments Follow-up Encounter Details Date Type Department Care Team Description 03/10/2014 Follow-Up Hematology and Farzaneh Valera cutzayda (Primary Dx); Oncology at [facility] MD Roselia Amyloidosis; [facility] Ant iphospholipid antibody syndrome [address] [place] HEMATOLOGY/ONCOLOGY [address] DEPT. [phone] [place], [place] [address] (Wo rk) Social History Tobacco [...] Sign Reading Time Taken Comments Blood Pressure 143/69 03/10/2014 1:42 PM EDT Pulse 80 03/10/2014 1:42 PM EDT Temperature 36.9 ??C (98.4 ??F) 03/10/2014 1:42 PM EDT Respiratory Rate 18 03/10/2014 1:42 PM EDT Oxygen Saturation 97% 03/10/2014 1:42 PM EDT Inhaled Oxygen Concentration - - Weight 88.4 kg (194 lb 14.2 oz) 03/10/2014 1:42 PM EDT Height 165.5 cm (5' 5.16) 03/10/2014 1:42 PM EDT Body Mass Index 32.27 03/10/2014 1:42 PM EDT documented in this encounter Progress Notes Farzaneh Valera MD - 03/10/2014 1:10 PM EDT Images from the original note were not included[place] [address] FOLLOW-UP PATIENT EVALUATION PROBLEM LIST: 1. Hypertension. [...] W/U to date w/ neg ECHO at [facility]. CT w/ one para-aortic 2cm LN which we will follow. Neg SPEP and 24 hour urine at [facility]. Neg fat pad biopsy. BMBx not yet completed. a. repeat CT, February 2010, with no pathologically enlarged adenopathy. Bone marrow biopsy negative for amyloid and lymphoma. B. CT February 2014 with 1cm (short axis) para-aortic LN. Otherwise negative. SPEP, SFLC remain neg. Patient Active Problem List Diagnosis ??? S/P complete thyroidectomy ??? Amyloidosis cutis ??? 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 Followed by [facility] Blakely and [facility]. W/U to date w/ neg ECHO at [facility]. CT w/ one para-aortic 2cm LN which we will follow. Neg SPEP and 24 hour urine at [facility]. Neg fat pad biopsy. BMBx not [...] In addition, there is superficial anddeep perivascular Orchid+, Lambda- plasma cell infiltrate. Please correlate with [...] in her medical condition. No new concerns. R med denson w/ 3 cm 2.5cm raised amyoid deposit. Slightly larger. New 1.5X1.5 cm lesion that is a marketing analytics manager mariah flesh tone on the R lateral calf/ankle. R lateral calf with 2hdU1va inch nodule A couple smaller ones as well. On L denson w/ several small 1cm lesions on R denson. No lesions other than legs - full skin check completed. No other sx/sx of systemic amyloid. ROS Energy level:stable Pain: No Appetite:good Fevers/chills/sweats:No Bruising/bleeding/melena:No Recent infections:No HEENT: negative Nausea/vomiting/diarrhea/constipation:No SOB/NOBLE/chest pain:No Change in adenopathy or other masses:No Unexpected weight loss or gain:No Skin rashes or petechiae:as above Musculoskeletal complaints:No Extremities: Negative upper and lower bilaterally Neurologic symptoms:No MEDS: Current Outpatient Prescriptions on File Prior to Visit Medication Sig Dispense Refill ??? fexofenadine (WAQAR) 60 mg tablet Take 180 mg by mouth daily. ??? lisinopril (PRINIVIL;ZESTRIL) 10 mg tablet Take 10 mg by mouth daily. ??? levothyroxine (SYNTHROID) 125 mcg tablet Take 1 tablet by mouth every morning. 30 tablet 5 ??? Inhalational Spacing Device (VORTEX HOLDING CHAMBER ADULT) [place] [facility]; Combo Route) route. use with inhalers 1 [...] Levalbuterol Tartrate (XOPENEX HFA) 45 mcg/Actuation inhaler No current facility-administered medications on file prior to visit. 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 Yusuf appears well and is [...] MUSCULOSKELETAL: No spinal or chest wall tenderness. Right Medial calf Right Medial calf Right lateral calf/ankle LABORATORY STUDIES Recent Results (from the past 24 hour(s)) COMPREHENSIVE METABOLIC PANEL (NON-FASTING) Component Value Range Glucose Lvl 102 60 - 199 mg/dL BUN 9 8 - 18 mg/dL Creatinine 0.74 0.70 - 1.20 mg/dL Sodium 139 135 - 145 mmol/L Potassium 3.9 3.5 - 5.0 mmol/L Chloride 100 98 - 107 mmol/L CO2 26 22 - 31 mmol/L Anion Gap 13 5 - 15 mmol/L Calcium 8.5 8.5 - 10.5 mg/dL Total Protein 6.9 6.4 - 8.3 gm/dL Albumin 4.3 3.2 - 5.2 gm/dL AST 26 0 - 30 unit/L ALT 24 0 - 30 unit/L Alk Phos 86 40 - 104 unit/L Total Bilirubin 0.3 0.2 - 1.3 mg/dL Bili, Direct 0.1 0.0 - 0.3 mg/dL Estimated GFR >60 >=60 LACTATE DEHYDROGENASE Component Value Range LDH 243 (*) 110 - 220 unit/L PROTEIN ELECTROPHORESIS, SERUM Component Value Range Total Prot Elec 6.4 6.4 - 8.3 gm/dL IMMUNOGLOBULINS, QUANTITATIVE Component Value Range IgG 819 700 - 1600 mg/dL IgA 76 70 - 400 mg/dL IgM 218 40 - 230 mg/dL HEMOGRAM Component Value Range WBC 7.4 4.0 - 10.0 x10(3)/mcL RBC 5.16 3.93 - 5.22 x10(6)/mcL Hemoglobin 14.7 11.2 - 15.7 gm/dL Hematocrit 43.1 34.0 - 45.0 % MCV 83.5 79.0 - 94.0 fL MCH 28.5 26.6 - 32.2 pg MCHC 34.1 32.0 - 36.5 gm/dL Platelets 263 145 - 370 x10(3)/mcL RDWSD 38.7 35.0 - 46.0 fL RDWCV 12.8 10.9 - 14.4 % MPV 9.6 9.0 - 12.0 fL DIFFERENTIAL, AUTOMATED Component Value Range Neutrophils % 74.4 (*) 34.0 - 71.0 % Neutr Abs (ANC) 5.50 1.50 - 6.30 x10(3)/mcL Lymphocytes % 17.0 (*) 19.0 - 53.0 % Lymphocytes Abs 1.3 1.0 - 3.6 x10(3)/mcL Monocytes % 5.9 4.0 - 13.0 % Monocyte Abs 0.4 0.2 - 1.0 x10(3)/mcL Eosinophils % 2.3 0.0 - 7.0 % Eosinophils Abs 0.2 0.0 - 0.5 x10(3)/mcL Basophils % 0.3 0.0 - 2.0 % Basophils Abs 0.0 0.0 - 0.2 x10(3)/mcL Immature Gran % 0.10 0.00 - 0.66 % Cheryl Gran Abs 0.01 0.00 - 0.05 x10(3)/mcL RADIOLOGY STUDIES REVIEWED: [...] node, as described above. Otherwise stable examination. ASSESSMENT/PLAN: Francie has SQ amyloid of bilateral [...] not change the overall course of disease. Francie gets very nervous the appointments and during our appointment she became lightheaded And warm. After lying down and having some cold fluid she felt better and felt that she could Get home safely. Will plan to see her back in [...] Date/Time Associated Comments Diagnosis IMMUNOGLOBULIN FREE STAT 03/10/2014 10:48 Amyloidosis cutis Results for this LIGHT CHAINS, SERUM AM EDT Amyloidosis procedure are in Antiphospholipid the results antibody syndrome section. IMMUNOGLOBULINS, STAT 03/10/2014 10:48 Amyloidosis cu tis Results for this QUANTITATIVE AM EDT Amyloidosis procedure are in Antiphospholipid the results antibody syndrome section. HEMOGRAM STAT 03/10/2014 10:48 Amyloidosis cut is Results for this AM EDT Amyloidosis procedure are in Antiphospholipid the results antibody syndrome section. DIFFERENTIAL, AUTOMATED STAT 03/10/2014 10:48 Amyloid osis cutis Results for this AM EDT Amyloidosis procedure are in Antiphospholipid the results antibody syndrome section. CBC (WITH DIFF) STAT 03/10/2014 10:48 Amyloidosis cut is AM EDT Amyloidosis Antiphospholipid antibody syndrome PROTEIN STAT 03/10/2014 10:48 Amyloidosis cut is Results for this ELECTROPHORESIS, SERUM AM EDT Amyloidos is procedure are in Antiphospholipid the results antibody syndrome section. LACTATE DEHYDROGENASE STAT 03/10/2014 10:48 Amyloidos is cutis Results for this AM EDT Amyloidosis procedure are in Antiphospholipid the results antibody syndrome section. COMPREHENSIVE METABOLIC STAT 03/10/2014 10:48 Amyloid osis cutis Results for this PANEL (NON-FASTING) AM EDT Amyloidosis procedure are in Antiphospholipid the results antibody syndrome section. documented in this encounter Results (ABNORMAL) Free Light Chains, Serum (04/06/2015 11:08 AM EDT) [facility] Method Time Signature Orchid Free 1.42 0.33 - CERNER Light Chains 1.94 mg/dL MILLENNIUM Lambda Free 0.84 0.57 - CERNER Light Chains 2.63 mg/dL MILLENNIUM Orchid/Lambda 1.6905 (H) 0.2600 - CERNER Free Light 1.6500 MILLENNIUM Chain Ratio Specimen Anatomical Collection Method Collection Time Receive d Time (Source) Location / / Volume Laterality Blood specimen 04/06/2015 11:08 5 (specimen) AM EDT 11:20 AM EDT Resulting Agency Comment Spec In Lab Farzaneh Valera MD CHEMISTRY ORDERABLES Performing Organization Address City/State/ZIP Code Phon e Number [address] CERNER MILLENNIUM (ABNORMAL) Immunoglobulins, Quantitative (04/06/2015 11:08 AM EDT) athologist Signature IgG 628 (L) 700 - [...] Valera MD CHEMISTRY ORDERABLES Performing Organization Address City/[facility]/ZIP Code Phon e Number [address] CERNER MILLENNIUM Protein Electrophoresis, serum (04/06/2015 11:08 AM EDT) [facility] Method Time Signature Total Prot 6.2 6.1 [...] Organization Address City/State/[place] [address] CERNER MILLENNIUM (ABNORMAL) Comprehensive metabolic panel (non-fasting) (04/06/2015 11:08 AM EDT) athologist Signature Glucose Lvl 100 65 - 199 CERNER mg/dL MILLENNIUM Comment: Diabetes: >=200 mg/dL plus symp toms BUN 14 8 - 18 mg/dL CERNER MILLENNIUM Creatinine 0.88 0.70 - 1.20 mg/dL CERNER MILL ENNIUM Comment: Please note that the pediatric reference intervals supplied above were not validated at [facility]. Results from pediatri c patients should be [...] Total Bilirubin 0.3 0.2 - 1.3 mg/dL [facility] Bili, Direct 0.1 0.0 - [...] the following links into your internet browser. [email or web address] Specimen Anatomical Collection Method Collection Time Receive d Time (Source) Location / / Volume Laterality Blood specimen 04/06/2015 11:08 5 (specimen) AM EDT 11:20 AM EDT Resulting Agency Comment Spec In Lab Farzaneh Valera MD CHEMISTRY ORDERABLES Performing Organization Address City/State/ZIP Code Phon e Number [place] [phone] CERNER MILLENNIUM (ABNORMAL) Differential, Automated (03/10/2014 10:48 AM EDT) [facility] Method Time Signature Neutrophils % 74.4 (H) 34.0 - CERNER 71.0 % MILLENNIUM Neutr Abs (ANC) 5.50 1.50 - CERNER 6.30 MILLENNIUM x10(3)/mc L Lymphocytes % 17.0 (L) 19.0 - CERNER 53.0 % MILLENNIUM Lymphocytes Abs 1.3 1.0 - 3.6 CERNER x10(3)/mc MILLENNIUM L Monocytes % 5.9 4.0 - CERNER 13.0 % MILLENNIUM Monocyte Abs 0.4 0.2 - 1.0 CERNER x10(3)/mc MILLENNIUM L Eosinophils % 2.3 0.0 - 7.0 CERNER % MILLENNIUM Eosinophils Abs 0.2 0.0 - 0.5 CERNER x10(3)/mc MILLENNIUM L [...] Organization Address City/State/[place] [address] CERNER MILLENNIUM Hemogram (03/10/2014 10:48 AM EDT) P athologist Signature WBC 7.4 4.0 - 10.0 CERNER x10(3)/mcL MILLENNIUM RBC 5.16 3.93 - 5.22 CERNER x10(6)/mcL MILLENNIUM Hemoglobin 14.7 11.2 - 15.7 CERNER gm/dL MILLENNIUM Hematocrit 43.1 34.0 - 45.0 CERNER % MILLENNIUM MCV 83.5 79.0 - 94.0 CERNER fL MILLENNIUM MCH 28.5 26.6 - 32.2 CERNER pg MILLENNIUM MCHC 34.1 32.0 - 36.5 CERNER gm/dL MILLENNIUM Platelets 263 145 - 370 CERNER x10(3)/mcL MILLENNIUM RDWSD 38.7 35.0 - 46.0 CERNER fL MILLENNIUM RDWCV 12.8 10.9 - 14.4 CERNER % MILLENNIUM MPV 9.6 9.0 - 12.0 CERNER fL MILLENNIUM Specimen Anatomical Collection Method Collection Time Receive d Time (Source) Location / / Volume Laterality Blood specimen 03/10/2014 10:48 4 (specimen) AM EDT 10:53 AM EDT Resulting Agency Comment Spec In Lab Farzaneh Valera MD HEMATOLOGY ORDERABLES Performing Organization Address City/[facility]/ZIP Code Phon e Number [address] CERNER MILLENNIUM (ABNORMAL) Free Light Chains, Serum (03/10/2014 10:48 AM EDT) Patholo gist Method Time Signature Orchid Free 1.72 0.33 - CERNER Light Chains 1.94 mg/dL MILLENNIUM Lambda Free 1.00 0.57 - CERNER Light Chains 2.63 mg/dL MILLENNIUM Orchid/Lambda 1.7200 (H) 0.2600 - CERNER Free Light 1.6500 MILLENNIUM Chain Ratio Specimen Anatomical Collection Method Collection Time Receive d Time (Source) Location / / Volume Laterality Blood specimen 03/10/2014 10:48 4 (specimen) AM EDT 10:53 AM EDT Resulting Agency Comment Spec In Lab Farzaneh Valera MD CHEMISTRY ORDERABLES Performing Organization Address City/[facility]/ZIP Code Phon e Number [address] CERNER MILLENNIUM Immunoglobulins, Quantitative (03/10/2014 [...] Valera MD CHEMISTRY ORDERABLES Performing Organization Address City/[facility]/ZIP Code Phon e Number [address] CERNER MILLENNIUM Protein Electrophoresis, [...] Valera MD CHEMISTRY ORDERABLES Performing Organization Address City/[facility]/ZIP Code Phon e Number [address] CERNER MILLENNIUM (ABNORMAL) Lactate [...] Organization Address City/State/ZIP Code Phon e Number [place] [phone] CERNER MILLENNIUM Comprehensive metabolic panel (non-fasting) (03/10/2014 10:48 AM EDT) athologist Signature Glucose Lvl 102 60 - 199 CERNER mg/dL MILLENNIUM Comment: Diabetes: >=200 mg/dL plus symp toms BUN 9 8 - 18 mg/dL CERNER MILLENNIUM Creatinine 0.74 0.70 - 1.20 mg/dL CERNER MILL ENNIUM Comment: Please note that the pediatric reference intervals supplied above were not validated at [facility]. Results from pediatri c patients should be [...] MILL ENNIUM Estimated GFR >60 >=60 BECKIE ANN Roselia Comment: This estimated GFR (eGFR) value was [...] the following links into your internet browser. [email or web address] Specimen Anatomical Collection Method Collection Time Receive d Time (Source) Location / / Volume Laterality Blood specimen 03/10/2014 10:48 4 (specimen) AM EDT 10:53 AM EDT Resulting Agency Comment Spec In Lab Farzaneh Valera MD CHEMISTRY ORDERABLES Performing Organization Address City/State/[place] [address] BECKIE FELTONIUM documented in this encounter Visit Diagnoses Diagnosis Amyloidosis cutis - Primary Other amyloidosis Amyloidosis Amyloidosis, unspecified Antiphospholipid antibody syndrome Primary hypercoagulable state documented in this encounter Care Teams Boating Safety Officer Relationship Specialty Start Date End Date Charlene Morgan APRN PCP - General 04/26/13 06/08/15 documented as of this encounter
--- OUTSIDE RECORDS SUMMARY | 2022-05-27 14:56 | XMS_ITS | Encounter Summary ---
:1960 [place] [address] Care Team Providers Name Role Phone Charlene Morgan Zane CLARK Primary Care Provider Encounter Details Date Type Department Care Team Description 01/03/2015 Hospital Encounter Radiology Library at [facility], Denise Iraheta [facility] [place] [address] PULMONARY MEDICINE [phone] [place], [place] [address] (Wo rk) Social History Tobacco [...] mg by mouth 0 tablet nightly. fexofenadine (WAQRA) 60 Take 180 mg by mouth 0 01/28/2015 mg tablet daily. lisinopril Take 10 mg by mouth 0 01/22 (PRINIVIL;ZESTRIL) 10 mg daily. tablet levothyroxine (SYNTHROID) Take 1 tablet by 30 tablet 5 05/1401/22/2015 125 mcg tablet mouth every morning. [place]halational [place] [facility]; 1 each 2 09/12/ 012 01/22/2015 Device (VORTEX HOLDING Combo Route) [...] Associated Diagnosis Comme nts FILM LIBRARY Routine 01/03/2015 12:00 AM Pain Results for this STORAGE ONLY DX EDT procedure ar e in CHEST the results section. documented in this encounter Results Film Library- Storage only DX Chest (01/03/2015 12:00 AM EDT) Specimen (Source) Anatomical Location Collection Method / Collectio n Time Received Time / Laterality Volume Narrative [facility] - 01/05/2016 11:18 AM EDT This exam is for storage only and is aut o-finalizing. Ke Oseguera MD IMRuchi FILM LIBRARY ORDERABLES Performing Organization Address City/State/ZIP Code Phon e Number [facility] [place], [place] documented in this encounter Visit Diagnoses Diagnosis Pain Generalized pain documented in this encounter Care Teams Shim Plug Cutter Relationship Specialty Start Date End Date Charlene Morgan APRN PCP - General 04/26/13 06/08/15 documented as of this encounter
--- OUTSIDE RECORDS SUMMARY | 2022-05-27 14:56 | XMS_ITS | Encounter Summary ---
:1960 Author Organization [facility] [place] [address] Care Team Providers Name Role Phone Pari Gonzalesblanco Degroot APRN Primary Care Provider Reason for Visit Reason Comments Follow-up CTCL Encounter Details Date Type Department Care Team Description 03/10/2014 Office Visit Hematology and Kelsey Whitney MD Amyloidosis cutis Oncology at [facility] (Primary Dx) [facility] DR Becky [address] [place], [place] RD-DERMATOLOGY [address] [place] [address] [phone] Social History Tobacco Use Types Packs/Day Years [...] documented as of this encounter Progress Notes Kelsey Whitney MD - 03/10/2014 1:47 PM EDT Dermatology [facility] [place] [address] FOLLOW-UP PATIENT ENCOUNTER - 03/10/2014 Francie Yusuf : 1960 Staff Provider: Kelsey Whitney MD PAST SKIN HISTORY: Nodular amyloid -rx 5mg/cc kenalog injection [place] 01/2011 Itchy rash in setting of antiphospholipid syndrome & nodular amyloidosis, hypocomplementemia -multiple topical steroids -antihistamine not helpful -resolved spontaneously Antiphospholipid antibody syndrome CC: Follow up cutaneous lymphoma INTERIM HPI: .Francie Yusuf is a 54 y.o. year old here for follow up of nodular amyloid. She has been well. She has one new lesion on the lateral right lower leg. This is not tender or itchy. The otherlesions have hyperpigmented and are less indurated. REVIEW OF SYSTEMS: Constitutional: Fevers/chills/drenching sweats: no fevers, no night sweats Energy level: good Recent infections: no problem with infections, no increase in infections Unexpected weight loss of >10% baseline body weight: no Pain: no Appetite:good Change in adenopathy or other masses: no Skin: Itch level: scale of 1-10: No itchy. MEDS: Current Outpatient Prescriptions Medication Sig Dispense Refill ??? fexofenadine (WAQAR) 60 mg tablet Take 180 mg by mouth daily. ??? lisinopril (PRINIVIL;ZESTRIL) 10 mg tablet Take 10 mg by mouth daily. ??? levothyroxine (SYNTHROID) 125 mcg tablet Take 1 tablet by mouth every morning. 30 tablet 5 ??? Inhalational Spacing Device (VORTEX HOLDING CHAMBER ADULT) [place] [facility] [place]; Combo Route) route. use with inhalers 1 [...] Levalbuterol Tartrate (XOPENEX HFA) 45 mcg/Actuation inhaler Current Facility-Administered Medications Medication Dose Route Frequency Provider Last Rate Last Dose ??? [COMPLETED] iohexol (OMNIPAQUE) 350 mg iodine/mL injection 38,500 mg 110 mL Intravenous Once PRAnita Lamb MD 38,500 mg at 03/10/14 1226 ??? [COMPLETED] iohexol (OMNIPAQUE) 350 mg iodine/mL injection 17,500 mg 50 mL Oral Once PRN Anita Marte MD 17,500 mg at 03/10/14 1226 ALLERGIES: NKDA PHYSICAL EXAM GENERAL: Appears well and is in no acute distress. Alert and oriented. SKIN: Yellow-brown nodule about 1.3 cm on the lateral aspect of the right lower leg. There are 3 other hyperpigmented nodules on the right lower leg, and two more subtle lesions on the left. LYMPH: No abnormal lymphadenopathy. No cervical, axillary or inguinal adenopathy CT February 2014 with 1cm (short axis) para-aortic LN. Otherwise negative. SPEP, SFLC remain neg. ASSESSMENT/PLAN: 1. Nodular amyloid-- she is not interested in pursuing RT for the new lesion. I am concerned that any available treatment will result in some morbidity -- ie prolonged healing, and , will not meet desired outcome which is better cosmesis. For Now, no treatment advised. ?? 2. Follow up : Annual with me. I am seeing her today with Dr. Farzaneh Valera. She did become anxious during the visit and lightheaded. Lying down and reassurance were helpful. Dr. Maynard is monitoring/evaluating on an annual interval for any hematologic conditions associated with the amyloid. I am documenting this encounter acting as the scribe for and in the presence of Dr. Whitney: WILLIAM JONES LPN I performed the above scribed service and agree with the accuracy of the documentation in this encounter. Kelsey Whitney MD Section of Dermatology [facility] CC: CHARLENE GONZALES, AUDIT OFFICER None documented in this encounter Plan of Treatment Not on filedocumented as of this encounter Visit Diagnoses Diagnosis Amyloidosis cutis - Primary Other amyloidosis documented in this encounter Care Teams Act English Tutor Relationship Specialty Start Date End Date Charlene Gonzales APRN PCP - General 04/26/13 06/08/15 documented as of this encounter
--- OUTSIDE RECORDS SUMMARY | 2022-05-27 14:56 | XMS_ITS | Encounter Summary ---
:1960 Author Organization [facility] [place] [address] Care Team Providers Name Role Phone Archie García APRN Primary Care Provider Encounter Details Date Type Department Care Team Description 06/01/2012 - Hospital Encounter Short Stay Unit at [facility] 06/02/2012 Raegan Hauser MD [facility] DR Pena GENERAL SURGERY [place], [place] [address] [phone] Social History Tobacco Use Types Packs/Day Years [...] Sign Reading Time Taken Comments Blood Pressure 118/56 06/02/2012 7:48 AM EDT Pulse 67 06/02/2012 7:48 AM EDT Temperature 36.7 ??C (98.1 ??F) 06/02/2012 7:48 AM EDT Respiratory Rate 12 06/02/2012 7:48 AM EDT Oxygen Saturation 97% 06/02/2012 7:48 AM EDT Inhaled Oxygen Concentration - - [...] please call the General Surgery nurse at [phone], since this may mean that you need morecalcium. Follow-up Appointment: Will be scheduled with Dr. Choi in 6 weeks Date and time as well as any required labs will be mailed to you Please call [phone] to confirm date and time of your [...] by calcium supplementation. Phone number for questions: [phone] before 5 PM weekdays [phone] after 5 PM and on weekends/holidays AttachmentsThe following attachments cannot be sent through Care Everywhere. THYROIDECTOMY: WHAT TO EXPECT AT HOME (GHANAIAN)documented in this encounter Medications at Time of [...] as needed for Pain. Inhalational Spacing by [facility]Non-Drug; 1 each 2 012 01/22/2015 Device (VORTEX [...] Magana for US guided FNA. US revealed: [facility] - Ultrasound Thyroid - [id number] Indications F/u nodules Right Lobe Date L(cm) [...] on physical exam. ROS: No H/O asthma, AR, stroke, pulmonary embolus or phlebitis. Comprehensive review [...] Device (VORTEX HOLDING CHAMBER ADULT) Spcr by [facility].(Non-Drug; Combo Route) route. use with inhalers 1 [...] developed, well nourished 52 y.o. female in [facility]. Skin: warm, dry, good turgor, nonicteric. [...] agrees to proceed. Will sign in through [facility]. Consent is signed. Send copy to ARCHIE GARCÍA APRN and Zack Magana MD, Patricio Lowe MD and Farzaneh Maynard MD. documented in this encounter Miscellaneous Notes Miscellaneous - Provider, Scanning - 06/04/2012 11:08 PM EDT Op Note - Noam Weathers - 06/01/2012 4:33 PM EDT [facility] [place] Patient Name: Francie Yusuf : [id number] MR#: [id number] Case Date: 06/01/2012 Surgeon: Surgeon(s) and Role: [...] PACU in stable condition. Miscellaneous - Provider, [facility] - 06/01/2012 2:12 PM EDT OR Attestation - Linda Choi MD - 06/01/2012 12:41 PM EDT Attestation: Case Date: 06/01/2012 I was present and I participated during the entire procedure (does not need to include opening and closing). LINDA CHOI MD 06/01/2012 Brief Op Note - Linda Choi MD - 06/01/2012 12:41 PM EDT Brief Operative Note Patient Name: Francie Yusuf : [id number] MR#: [id number] Case Date: 06/01/2012 Surgeon: Surgeon(s) and Role: [...] Glucose 145 60 - 199 CERNER mg/dL [facility] Comment: Supplemental ranges: <110 mg/dL before meals <200 mg/dL all other times of the day Specimen Anatomical Collection Method Collection Time Receive d Time (Source) Location / / Volume Laterality Blood specimen 06/01/2012 3:15 PM 012 3:15 (specimen) EDT PM EDT Linda Choi MD POINT OF CARE TEST ORDERABLE S Performing Organization Address City/State/ZIP [place] [address] [facility] SURGICAL PATHOLOGY REPORT (06/01/2012 1:06 PM EDT) Component Value Ref Test Analysis Performed At [facility] gist Range Method Time Signature Surgical [facility] Pathology ? [facility] Report ? Provider: ?? LINDA CHOI Pt. Name: ?? Valentine YUSUF ? Acc #: ?[id number] ?Pt. MRN: ?[id number] ? Col Date: ?? 06/01/20 12 ?/Sex: [...] pole. ?Remaining parenchyma: ??Homogeneous, red-brown. ? Sections/Processing: ?Bilingual Loan Processor sections are submitted as follows: ? (1-6) right lobe from upper to lower pole; (7) ? inbound customer service representative isthmus; (8-12) left lobe from ? upper to lower pole. ??(R12) ??aje/PPS ? ---Clinical Information--- ? Specimen Submitted: ? A - Total thyroid ? Clinical History/Diagnosis: ? MNG Specimen (Source) Anatomical Collection Method Collection Time Re ceived Time Location / / Volume Laterality 06/01/2012 1:06 PM EDT Linda Choi MD PATHOLOGY/CYTOLOGY ORDERABLE S Performing Organization Address City/State/[place] [address] [facility] Specimen to Pathology (surgical or derm) (06/01/2012 12:32 PM EDT) Specimen Anatomical Collection Method Collection Time Receive d Time (Source) Location / / Volume Laterality AP Specimen 06/01/2012 12:32 06/01/2012 PM EDT 12:32 PM EDT Narrative CERNER SUSYENNIUM - 06/01/2012 12:32 PM EDT Specimen requisition ordered. ??Separate Pathology report to follow Linda Choi MD PATHOLOGY/CYTOLOGY ORDERABLE S Performing Organization Address City/[facility]/ZIP Code Phon e Number [address] [facility] Prothrombin Time (06/01/2012 10:20 AM EDT) P athologist Signature PT 12.8 11.9 - 14.7 [facility] MILLENNIUM Comment: [facility] Transfusion Committee Guidelines: I NR less than 2.0, PTT less than OR equal to 43.5 seconds, or Fibrinogen gre ater than or equal to 100 mg/dl indicate adequate procoagulant activity for hemostasis in patients without underlying bleeding disorders. INR 1.0 0.9 - 1.1 [facility] Specimen Anatomical Collection Method Collection Time Receive d Time (Source) Location / / Volume Laterality Blood specimen 06/01/2012 10:20 2 (specimen) AM EDT 10:20 AM EDT Resulting Agency Comment Spec In Lab Heriberto Treviño MD HEMATOLOGY ORDERABLES Performing Organization Address City/State/ZIP Code Phon e Number [address] [facility] documented in this encounter Visit [...] Given 06/01/2012 7:00 PM EDT 1,000 mg calcium carbonate tablet 1,296 mg Given 06/02/2012 8:10 AM EDT 1,296 mg 1,296 mg (1,200 mg), Oral, 3 TIMES DAILY, First dose on Mon06/01/12 at 1500, Until Discontinued Given 06/01/2012 9:00 PM EDT 1,296 mg cholecalciferol (Vitamin D3) tablet 400 Given 06/02/2012 [...] mcg, Oral, EVERY MORNING, First dose on Mon06/02/12 at 0600, Until Discontinued, Routine ondansetron (ZOFRAN) [...] mg (CANCELED) 1415 (Given - Provider: Farzaneh Montero, KALA)1900 (Given - Provider: Jayda Anand RN) 0030 (Given - Provider: Sahara Estrada, KALA)0130 (Canceled Entry - Provider: Jayda Anand RN)0700 (Given - Provider: Sahara Estrada, KALA) 1,000 mg, Oral, EVERY 6 HOURS, First [...] fluticasone (FLOVENT) 110 mcg/actuation inhaler 2 puff (CANC ELED) 1345 (Given - Provider: Farzaneh Montero RN)2100 (Given - Provider: Jayda Anand RN) 0811 (Given - Provider: Rebecca Hughes RN) 2 puff, Inhalation, 2 TIMES DAILY, First dose on Mon06/01/12 at 1345, Until Discontinued, Shake well; Rinse mouth after administration., Routine levothyroxine (SYNTHROID) tablet 125 mcg 0700 (Given - Provider: Sahara Estrada, KALA) 125 mcg, Oral, EVERY MORNING, First dose on Mon06/02/12 at 0600, Until Discontinued, Routine Continuous Medication Order 05/31/2012 06/01/2012 06/02/2012 lactated ringers infusion 1,000 mL (CANCELED) 1053 (New Bag - Provider: Jayda Pacheco RN) 1,000 mL, at 100 mL/hr, Intravenous, [...] Provider: Linda Choi MD) ONCE PRN, Starting 06/01/12 at 1226, Until 06/01/12 at 1554, Intra- Operative (Intra-Procedure), Routine fentaNYL 50mcg/mL injection (CANCELED) 1 310 (Given - Provider: Farzaneh Montero RN)1324 (Given - Provider: Farzaneh Montero RN)1343 (Given - Provider: Farzaneh Montero, KALA)1420 (Given - Provider: Farzaneh Montero RN)1510 (Given - Provider: Farzaneh Montero RN) 25-50 mcg, Intravenous, EVERY 5 MIN PRN, Starting 06/01/12 at 1256, Until 06/01/12 at 1601, Pain, for breakthrough pain, Hold for respiratory rate less than 10 per minute. Maximum dose: 250 mcg over one hour., PACU Recovery, Routine ondansetron (ZOFRAN) injection 4 mg (CANCELED) 1636 (Given - Provider: Jayda Anand, KALA) 4 mg, Intravenous, EVERY 8 [address] PRN, St arting 06/01/12 at 1312, Until 06/02/12 at 1158, Nausea, Vomiting, If multiple antiemetics are ordered, use ondansetron first. May repeat times one in 30 minutes if ineffective. , Routine OXYcodone (ROXICODONE) immediate release tablet 5-10 mg 0512 (Given - Provider: Melissa Marley, KALA)0920 (Given - Provider: Rebecca Hughes, RN) 5-10 mg, Oral, EVERY 4 HOURS PRN, Starti ng Mon06/01/12 at 1312, Until 06/02/12 at 1158, Pain, May repeat once in 30 minutes if ineffective., Routine documented in this encounter Care Teams Remote Mortgage Underwriter Relationship Specialty Start Date End Date Archie García APRN PCP - General 07/06/10 09/09/12 documented as of this encounter
--- OUTSIDE RECORDS SUMMARY | 2022-05-27 14:56 | XMS_ITS | Encounter Summary ---
:1960 Author Organization [facility] [place] [address] Care Team Providers Name Role Phone Unknown Primary Care Provider Unavailable Encounter Details Date Type Department Care Team Description 02/11/2013 Hospital Encounter Hematology and CLINIC, CONV Oncology at [facility] Farzaneh Valera MD [facility] HEMAT[facility]/[place] [address] [place] [address] Social History Tobacco Use Types Packs/Day [...] 20 mg by mouth 0 tablet nightly. cetirizine (ZYRTEC) 10 mg Take 10 mg by mouth 0 05/20/2013 tabletIndications: daily. Amyloidosis cutis levothyroxine (SYNTHROID) Take 1 tablet by 30 tablet 5 05/1401/22/2015 125 mcg tablet mouth every morning. Inhalational Spacing by [facility].(Non-Drug; 1 each 2 012 01/22/2015 Device (VORTEX [...] on filedocumented in this encounter Care Teams Heavy Mobile Equipment Repairer Relationship Specialty Start Date End Date Unknown PCP - General 09/10/12 04/25/13 None documented as of this encounter
--- OUTSIDE RECORDS SUMMARY | 2022-05-27 14:56 | XMS_ITS | Encounter Summary ---
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 She is on coumadin for antiphospholipid antibody syndrome. I spoke with Dr Patricio Lowe who follows this pt and he has okayed her to be off the coumadin 7 days prior with no Bridge. documented in this encounter Plan of Treatment Not on filedocumented as of this encounter Visit Diagnoses Not on filedocumented in this encounter Care Teams Principal Network Architect Relationship Specialty Start Date End Date Maria Fournier APRN PCP - General 07/06/10 09/09/12 documented as of this encounter
--- OUTSIDE RECORDS SUMMARY | 2022-05-27 14:56 | XMS_ITS | Encounter Summary ---
:1960 Author Organization [facility] [place] [address] Care Team Providers Name Role Phone Charlene Morgan APRN Primary Care Provider Encounter Details Date Type Department Care Team Description 03/10/[address] [facility] [place] [facility] [place] [address] Social History Tobacco Use Types Packs/Day [...] tablet mouth every morning. [place]hal[place] [facility] [place]; 1 each 2 012 01/22/2015 Device [...] Name Priority Date/Time Associated Diagnosis Comme nts CT CHEST ABDOMEN Routine 03/10/2014 12:39 PM Resu lts for this PELVIS W CONTRAST EDT procedure are in (GENERIC) the results section. documented in this encounter Results CT chest, abdomen, & pelvis with contrast (03/10/2014 12:39 PM EDT) Anatomical Region Laterality Modality Computed Tomography Specimen (Source) Anatomical Collection Method Collection Time Re ceived Time Location / / Volume Laterality 03/10/2014 12:39 PM EDT Narrative 03/10/2014 3:[address] Chest / Abdomen / Pelvis With Contras t Clinical History amyloid assess for adenopathy Comparison CT of the chest abdomen pelvis with cont rast November 15, 2010. Technique Of the chest abdomen and pelvis was perf ormed following the intravenous administration of 110 mL of Omnipaque 35 0. Findings Chest: ??The lungs are overall stable wh en compared to prior study. ??The 3 mm right upper lobe nodule is unchanged in position and appearance from prior examination (series 3, image 19). ??A pn eumatocele in the right lung apex is also unchanged from prior exam. ??No new or enlarging pulmonary nodules. ??The patient is status post thyroidectomy. ?? No axillary, mediastinal, or hilar lymphadenopathy. ??No pericardial or ple ural effusion. Abdomen/pelvis: Multiple small retroperi toneal lymph nodes. The largest node is adjacent to the aorta and measures 1 cm in short axis, which is slightly increased from prior examination (series 2, image 81). No mesenteric or pelvic lymphadenopathy. As on prior examination, the liver conta ins multiple hypodensities, which are too small to further characterize. Vane l appearance of the gallbladder, pancreas, spleen, adrenal glands, and ki dneys. No intraperitoneal free air or free flui d. ??No free fluid in the pelvis. Normal appendix. ??The colon has shows d iverticular disease in the sigmoid colon shows diverticular disease without evide nce for acute diverticulitis. No aggressive osseous lesion. Impression 1. Slight interval increase in the size of a single periaortic lymph node, as described above. Otherwise stable examin ation. Film and interpretation reviewed by the attending Procedure Note Edwina Chavez MD - 03/10/[address] Chest / Abdomen / Pelvis With Contras t Clinical History amyloid assess for adenopathy Comparison CT of the chest abdomen pelvis with cont rast November 15, 2010. Technique Of the chest abdomen and pelvis was perf ormed following the intravenous administration of 110 mL of Omnipaque 35 0. Findings Chest: The lungs are overall stable when compared to prior study. The 3 mm right upper lobe nodule is unchanged in position and appearance from prior examination (series 3, image 19). A pneu matocele in the right lung apex is also unchanged from prior exam. No new o r enlarging pulmonary nodules. The patient is status post thyroidectomy. No axillary, mediastinal, or hilar lymphadenopathy. No pericardial or pleur al effusion. Abdomen/pelvis: Multiple small retroperi toneal lymph nodes. The largest node is adjacent to the aorta and measures 1 cm in short axis, which is slightly increased from prior examination (series 2, image 81). No mesenteric or pelvic lymphadenopathy. As on prior examination, the liver conta ins multiple hypodensities, which are too small to further characterize. Vane l appearance of the gallbladder, pancreas, spleen, adrenal glands, and ki dneys. No intraperitoneal free air or free flui d. No free fluid in the pelvis. Normal appendix. The colon has shows div erticular disease in the sigmoid colon shows diverticular disease without evide nce for acute diverticulitis. No aggressive osseous lesion. Impression 1. Slight interval increase in the size of a single periaortic lymph node, as described above. Otherwise stable examin ation. Film and interpretation reviewed by the attending Farzaneh Valera MD IMG CT ORDERABLES documented in this encounter Visit Diagnoses Not on filedocumented in this encounter Administered Medications Inactive Administered Medications - up to 3 most recent administrations Medication Order MAR Action Action Date Dose Rate Site iohexol (OMNIPAQUE) 350 mg Given 03/10/2014 12:26 PM EDT 17,500 mg iodine/mL injection 17,500 mg 17,500 mg (50 mL), Oral, ONCE PRN, 1 dose, Starting on Mon03/10/14 at 1226, Until Mon03/10/14 at 1226, Per Protocol, Routine iohexol (OMNIPAQUE) 350 mg iodine/mL Given 03/10/2014 12:26 PM E DT 38,500 mg injection 38,500 mg 38,500 mg (110 mL), Intravenous, ONCE PRN, 1 dose, Starting on Mon03/10/14 at 1226, Until Mon03/10/14 at 1226, Per Protocol, Routine documented in this encounter Care Teams Coke Drawer Hand Relationship Specialty Start Date End Date Charlene Morgan APRN PCP - General 04/26/13 06/08/15 documented as of this encounter
--- OUTSIDE RECORDS SUMMARY | 2022-05-27 14:56 | XMS_ITS | Encounter Summary ---
:1960 Author Organization [facility] [place] [address] Care Team Providers Name Role Phone Maria Fournier APRN Primary Care Provider Reason for Visit Reason Comments Follow-up Encounter Details Date Type Department Care Team Description 06/11/2012 [place] [facility]ric[place] Lowe, Anti-phospholipid antibody s yndrome (Primary Dx); [facility] Marquis Barcenas; [place] [address] [facility] Amyloidosis of skin; [phone] Sinus congestion RHEUMATOLOGY DEP [place], [place] [address] Social History Tobacco Use Types [...] Sign Reading Time Taken Comments Blood Pressure 145/86 06/11/2012 2:24 PM EDT Pulse 81 06/11/2012 2:24 PM EDT Temperature - - Respiratory Rate 18 06/11/2012 2:24 PM EDT Oxygen Saturation 98% 06/11/2012 2:24 PM EDT Inhaled Oxygen Concentration - - Weight 86.2 kg (190 lb) 06/11/2012 2:24 PM EDT Height - - Body Mass Index 30.12 06/01/2012 10:23 AM EDT documented in this encounter Patient Instructions Patient InstructionsPatricio Lowe MD - 06/11/2012 3:44 PM EDT 1. Body pillow to keep on side when sleeping 2. Bacitracin ointment at bedtime to nostrils 3. Flonase to nostrils daily 4. Hydration 5. Labs today. 6. Use humidifier every night for 2 weeks in bedroom and see if it makes difference 7. Consider lacrilube or Systane for dry eyes 2-3 x daily documented in this encounter Progress Notes Patricio Lowe MD - 06/11/2012 3:39 PM EDT Subjective: Patient ID: Francie Yusuf is a 52 y.o. female seen in annuals f/u for her antiphospholipid antibody syndrome HPI Ms Paramjit is seen in annual f/u for her antiphospholipid antibody syndrome treated with Coumadin since 2001 for HANSEN, facial twitching and dysesthesias, and white matter changes on MRI with symptomaticimprovement with treatment. Low titer YELENA 1:80 centromere at 2000evaluation increasing to 1:640 in 2008 and associated with anti-mitochondrial pattern. No headaches facial twitching, dysesthesias. Off the coumadin on 05.24 to 06.04. No obvious emergence of symptoms. 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 Whitney and Caesar. Hypocomplementemia noted at that time. Amyloid onLE has now gone, last lesion was earlier this spring. Is being aggressively monitored by Dr. Maynard with CT scan chest/abd/neck,labs. Ig levels stable. Elevated kappa/lambda light chains. ROS: Rare bleeding issues usually related to [...] looking stated age in NAD. Blood pressure 145/86, pulse 81, resp. rate 18, weight 86.183 kg (190 lb), SpO2 98.00%.No telangectasias. No more plaques on LE, largestis 3 cm across, most are <0.5 cm. Normal nailfold exam. No digital ulcers, cuticular overgrowth. HEENT: moist mucus membranes despite no drinking for hours, +salivary pooling. Mild submandibular tenderness, no parotid enlargement. Neck supple no bruits. Chest/Cor/Joint exam All normal. Assessment and Plan: No evidence of lupus, no evidence of limited scleroderma. Isolated anti- phospholipid syndrome which has been well controlled on coumadin for nearly 10 years in terms of HANSEN, paresthesias. Symptoms of sicca not evident by salivary inspection. They seem largely environmental, but Sjogrens or amyloid deposition is a problem, not that I think we would change therapy. Will employ bacitracin, humidifier, Flonase, lacrilube for various sicca sx. Level 5 follow up Patricio Lowe M.D. documented in this encounter Plan of Treatment Not on filedocumented as of this encounter Procedures Procedure Name Priority Date/Time Associated Comments Diagnosis EXTRACTABLE NUCLEAR Routine 06/11/2012 3:59 PM Sicca Re sults for this ANTIGEN (ANITA) AB EDT procedure a re in the results section. DNA ANTIBODY Routine 06/11/2012 3:59 PM Results f or this (DOUBLE-STRANDED) EDT procedure are in the results section. DIFFERENTIAL, Routine 06/11/2012 3:59 PM Results for this AUTOMATED EDT procedure are i n the results section. YELENA TITER Routine 06/11/2012 3:59 PM Results f or this EDT procedure are i n the results section. SEDIMENTATION RATE Routine 06/11/2012 3:59 PM Sicca Res ults for this EDT procedure are i n the results section. CBC (WITH DIFF) Routine 06/11/2012 3:59 PM Sicca Result s for this EDT procedure are i n the results section. YELENA Routine 06/11/2012 3:59 PM Sicca Results f or this EDT procedure are i n the results section. documented in this encounter Results YELENA TITER (06/11/2012 3:59 PM EDT) athologist Signature YELENA Titer positive BECKIE FELTONIUM Comment: mixed pattern present, 1:640 Titer seen with Centromere pattern. ??Is highly correlated with CREST syndrome of PSS. ??1:160 Cytoplasmic pattern pres ent using HEP-2 substrate. ??Is suggestive of autoantibodies to mitochondria or smooth muscle. Specimen Anatomical Collection Method Collection Time Receive d Time (Source) Location / / Volume Laterality Blood specimen 06/11/2012 3:59 PM 012 8:25 (specimen) EDT AM EDT Resulting Agency Comment Spec In Lab Patricio Lowe MD IMMUNOLOGY ORDERABLES Performing Organization Address City/[facility]/ZIP Code Phon e Number [address] BECKIE FELTONIUM DNA ANTIBODY (DOUBLE-STRANDED) (06/11/2012 3:59 PM EDT) athologist Signature DNA Ab (DS) Neg Neg BECKIE FELTONIUM Specimen Anatomical Collection Method Collection Time Receive d Time (Source) Location / / Volume Laterality Blood specimen 06/11/2012 3:59 PM 012 8:25 (specimen) EDT AM EDT Resulting Agency Comment Spec In Lab Patricio Lowe MD CHEMISTRY ORDERABLES Performing Organization Address City/[facility]/ZIP Code Phon e Number [address] BECKIE FELTONIUM (ABNORMAL) DIFFERENTIAL, AUTOMATED (06/11/2012 3:59 PM EDT) [facility] gist Method Time Signature Neutrophils % 69.8 34.0 - CERNER 71.0 % MILLENNIUM Neutr Abs (ANC) 5.17 1.50 - CERNER 6.30 MILLENNIUM x10(3)/mc L Lymphocytes % 15.0 (L) 19.0 - CERNER 53.0 % MILLENNIUM Lymphocytes Abs 1.1 1.0 - 3.6 CERNER x10(3)/mc MILLENNIUM L Monocytes % 11.3 4.0 - CERNER 13.0 % MILLENNIUM Monocyte Abs 0.8 0.2 - 1.0 CERNER x10(3)/mc MILLENNIUM L Eosinophils % 3.4 0.0 - 7.0 CERNER % MILLENNIUM Eosinophils Abs 0.2 0.0 - 0.5 CERNER x10(3)/mc MILLENNIUM L Basophils % 0.4 0.0 - 2.0 CERNER % MILLENNIUM Basophils [...] Location / / Volume Laterality Blood specimen 06/11/2012 3:59 PM 012 4:17 (specimen) EDT PM EDT Patricio Lowe MD HEMATOLOGY ORDERABLES Performing Organization Address City/State/ZIP Code Phon e Number [place] [phone] CERNER MILLENNIUM Extractable Nuclear Antigen (ANITA) Ab (06/11/2012 3:59 PM EDT) [facility] Method Time Signature ANITA Ab CERNER ? HI ? Expected MILLENNIUM Test ? Result ?LO ??Units ??Values Ab to Extractable Nuclear Ag Eval,S ??SS-A/Ro Ab, IgG, S ? <0.2 ?U -- EXPECTED VALUES -- <1.0 (Negative) ??SS-B/La Ab, IgG, S ? <0.2 ?U -- EXPECTED VALUES -- <1.0 (Negative) ??Sm Ab, IgG, S ?<0.2 ?U -- EXPECTED VALUES -- <1.0 (Negative) ??ROOM SERVICE MANAGER Ab, IgG, S ? 0.3 ? U -- EXPECTED VALUES -- <1.0 (Negative) ??Scl 70 Ab, IgG, S ?<0.2 ?U -- EXPECTED VALUES -- <1.0 (Negative) ??Duyen 1 Ab, IgG, S ?<0.2 ?U -- EXPECTED VALUES -- <1.0 (Negative) Test Performed by: [employer] [address], [place] [address] Manager Transplant: Kerri Juarez, Ph.D. Specimen Anatomical Collection Method Collection Time Receive d Time (Source) Location / / Volume Laterality Blood specimen 06/11/2012 3:59 PM 012 7:12 (specimen) EDT AM EDT Resulting Agency Comment Spec In Lab Patricio Lowe MD IMMUNOLOGY ORDERABLES Performing Organization Address City/State/ZIP Code Phon e Number [address] CERNER MILLENNIUM (ABNORMAL) YELENA (06/11/2012 3:59 PM EDT) athologist Signature YELENA Pos Titer Neg CERNER TF (A) MILLENNIUM Specimen Anatomical Collection Method Collection Time Receive d Time (Source) Location / / Volume Laterality Blood specimen 06/11/2012 3:59 PM 012 8:25 (specimen) EDT AM EDT Resulting Agency Comment Spec In Lab Patricio Lowe MD IMMUNOLOGY ORDERABLES Performing Organization Address City/State/ZIP Code Phon e Number [address] CERNER MILLENNIUM Sedimentation rate (06/11/2012 3:59 PM EDT) athologist Signature Sed Rate 15 0 - 20 CERNER mm/hr MILLENNIUM Specimen Anatomical Collection Method Collection Time Receive d Time (Source) Location / / Volume Laterality Blood specimen 06/11/2012 3:59 PM 012 4:17 (specimen) EDT PM EDT Resulting Agency Comment Spec In Lab Patricio Lowe MD HEMATOLOGY ORDERABLES Performing Organization Address City/State/ZIP Code Phon e Number [address] CERNER MILLENNIUM CBC (with Diff) (06/11/2012 3:59 PM EDT) athologist Signature WBC 7.4 4.0 - 10.0 CERNER x10(3)/mcL MILLENNIUM RBC 4.93 3.93 - 5.22 CERNER x10(6)/mcL MILLENNIUM Hemoglobin 14.1 11.2 - 15.7 CERNER gm/dL MILLENNIUM Hematocrit 41.1 34.0 - 45.0 CERNER % MILLENNIUM MCV 83.4 79.0 - 94.0 CERNER fL MILLENNIUM MCH 28.6 26.6 - 32.2 CERNER pg MILLENNIUM MCHC 34.3 32.0 - 36.5 CERNER gm/dL MILLENNIUM Platelets 272 145 - 370 CERNER x10(3)/mcL MILLENNIUM RDWSD 39.4 35.0 - 46.0 [facility] RDWCV 13.0 10.9 - 14.4 [facility] % [facility] MPV 9.4 9.0 - 12.0 [facility] Specimen Anatomical Collection Method Collection Time Receive d Time (Source) Location / / Volume Laterality Blood specimen 06/11/2012 3:59 PM 012 4:17 (specimen) EDT PM EDT Resulting Agency Comment Spec In Lab Patricio Lowe MD HEMATOLOGY ORDERABLES Performing Organization Address City/State/[place] [address] [facility] documented in this encounter Visit Diagnoses Diagnosis Anti-phospholipid antibody syndrome - Pr imary Primary hypercoagulable state Sicca Sicca syndrome Amyloidosis of skin Amyloidosis, unspecified Sinus congestion Other diseases of nasal cavity and sinus es documented in this encounter Care Teams Stamper Blocker Relationship Specialty Start Date End Date Maria Fournier APRN PCP - General 07/06/10 09/09/12 documented as of this encounter
--- OUTSIDE RECORDS SUMMARY | 2022-05-27 14:57 | XMS_ITS | Encounter Summary ---
:1960 [place] [address] Care Team Providers Name Role Phone Maria Fournier APRN Primary Care Provider Encounter Details Date Type Department Care Team Description 10/01/2011 Hospital Encounter Radiology Library at [facility], Denise Iraheta [facility] [place] [address] [place] [address] PULMONARY MEDICINE [phone] [place], [place] [address] (Wo rk) Social History Tobacco [...] 20 mg by mouth 0 tablet nightly. Inhalational Spacing by Misc.(Non-Drug; 1 each 2 012 01/22/2015 Device ([employer] Combo Route) route. CHAMBER ADULT) use with inhalers SpcrIndications: Asthma loratadine (CLARITIN) 10 Take 10 mg by mouth 0 02/11/2013 mg tablet daily. acetaminophen (TYLENOL Take by mouth as 0 011 02/22/2017 EXTRA STRENGTH) 500 mg needed. Reported on tablet 09/19/2016 multivitamin (THERAGRAN) Take 1 tablet by 0 03/12/2012 tablet mouth daily. WARFARIN SODIUM (WARFARIN 0 10/25/2010 01/28/2015 ORAL) fluticasone (FLOVENT HFA) 2 Puff(s), Inh, 0 10/2501/22/2015 110 mcg/Actuation inhaler Twice daily Levalbuterol Tartrate 0 10/25/201006/2015 (XOPENEX HFA) 45 mcg/Actuation inhaler documented as of this encounter Plan of Treatment Not on filedocumented as of this encounter Procedures Procedure Name Priority Date/Time Associated Diagnosis Comme nts FILM LIBRARY Routine 10/01/2011 12:00 AM Pain Results for this STORAGE ONLY DX EST procedure ar e in CHEST the results section. documented in this encounter Results Film Library- Storage only DX Chest (10/01/2011 12:00 AM EST) Specimen (Source) Anatomical Location Collection Method / Collectio n Time Received Time / Laterality Volume Narrative [facility] - 01/05/2016 11:50 AM EDT This exam is for storage only and is aut o-finalizing. Ke Oseguera MD IMRuchi FILM LIBRARY ORDERABLES Performing Organization Address City/State/ZIP Code Phon e Number [place], [place] documented in this encounter Visit Diagnoses Diagnosis Pain Generalized pain documented in this encounter Care Teams Extension Specialist Relationship Specialty Start Date End Date Maria Fournier APRN PCP - General 07/06/10 09/09/12 documented as of this encounter
--- OUTSIDE RECORDS SUMMARY | 2022-05-27 14:57 | XMS_ITS | Encounter Summary ---
:1960 Author Organization [facility] [place] [address] Care Team Providers Name Role Phone Maria Fournier APRN Primary Care Provider Encounter Details Date Type Department Care Team Description 01/17/2011 Hospital Encounter Laboratory CLINIC, [facility] Farzaneh Valera MD [facility] HEMATOLOGY/[place] [address] [place] [address] Social History Tobacco Use Types Packs/Day [...] Start Date End Date loratadine (CLARITIN) 10 Take 10 mg by mouth 0 02/11/2013 mg tablet daily. acetaminophen (TYLENOL Take by mouth as 0 011 02/22/2017 EXTRA STRENGTH) 500 mg needed. Reported on tablet 09/19/2016 multivitamin (THERAGRAN) Take 1 tablet by 0 03/12/2012 tablet mouth daily. fluticasone (VERAMYST) 2 sprays by Nasal 0 09/12/2011 27.5 mcg/Actuation nasal route daily. spray WARFARIN SODIUM (WARFARIN 0 10/25/2010 01/28/2015 ORAL) fluticasone (FLOVENT HFA) 2 Puff(s), Inh, 0 10/2501/22/2015 110 mcg/Actuation inhaler Twice daily Levalbuterol Tartrate 0 10/25/201006/2015 (XOPENEX HFA) 45 mcg/Actuation inhaler clobetasol (TEMOVATE) 1 Appl(s) Top Twice 0 10/2509/12/2011 0.05 % cream daily documented as of this encounter Plan of Treatment Not on filedocumented as of this encounter Visit Diagnoses Not on filedocumented in this encounter Care Teams Research And Development Technician Relationship Specialty Start Date End Date Maria Fournier APRN PCP - General 07/06/10 09/09/12 documented as of this encounter
--- OUTSIDE RECORDS SUMMARY | 2022-05-27 14:57 | XMS_ITS | Encounter Summary ---
:1960 Author Organization [facility] [place] [address] Care Team Providers Name Role Phone Maria Fournier APRN Primary Care Provider Encounter Details Date Type Department Care Team Description 01/13/2011 Abstract Hematology and Oncology at [facility], Guillermo Odom, [place] [address] Social History Tobacco Use Types Packs/Day Years Used Date Former Smoker Cigarettes 1.5 Quit: 08/14/18 93 Alcohol Use Standard Drinks/Week Comments Not Asked 0 (1 standard drink = 0.6 oz pure alcoho l) Sex Assigned at Date Recorded Not on file documented as of this encounter Last Filed Vital Signs Vital Sign Reading Time Taken Comments Blood Pressure - - Pulse - - Temperature - - Respiratory Rate - - Oxygen Saturation - - Inhaled Oxygen Concentration - - Weight 82.6 kg (181 lb 15.8 oz) 10/07/2010 1:20 PM EST Height 165.1 cm (5' 5) 10/07/2010 1:20 PM EST Body Mass Index 30.28 10/07/2010 1:20 PM EST documented in this encounter Plan of Treatment Not on filedocumented as of this encounter Visit Diagnoses Not on filedocumented in this encounter Care Teams Non Categorical Preschool Teacher Relationship Specialty Start Date End Date Maria Fournier APRN PCP - General 07/06/10 09/09/12 documented as of this encounter
--- OUTSIDE RECORDS SUMMARY | 2022-05-27 14:57 | XMS_ITS | Encounter Summary ---
:1960 Author Organization [facility] [place] [address] Care Team Providers Name Role Phone Maria Fournier APRN Primary Care Provider Encounter Details Date Type Department Care Team Description 11/15/2010 Orders Only Hematology and Oncology at [facility], Ros Veloz [facility] [place] [address] HEMATOLOGY/ONCOLOGY [phone] DEPT. [place], [place] [address] (Wo rk) Social History Tobacco [...] Priority Date/Time Associated Diagnosis Comme nts US THYROID SOFT Routine 11/15/2010 10:41 AM Resul ts for this TISSUE EDT procedure are i n the results section. documented in this encounter Results US THYROID SOFT TISSUE (11/15/2010 10:41 AM EDT) Anatomical Region Laterality Modality Pelvis Ultrasound Specimen (Source) Anatomical Collection Method Collection Time Re ceived Time Location / / Volume Laterality 11/15/2010 10:41 AM EDT Narrative 11/15/2010 11:01 AM EDT ?Thyroid Re port ? (Signed Final 11/15/2010 11 :01 am) Patient Info ID: ? [id number] ? : ??[birth year] (50 yrs) Name: ? DHEERAJ YUSUF ? Visit Date: 11/15/2010 10:33 am Procedures UTHYRD - Ultrasound Thyroid - [id number] ? [id number] Indications F/u nodules Right Lobe Date ? L(cm) ? AP(cm) ?TV(cm) 11/15/10 ? 5.3 ? 2.2 ? 2.2 ------- Lesions ------- # ?Date ?Location ?Description ?L ?AP ? TV (cm) 1 ?11/15/10 ?Upper lobe ?He terogeneous ?0.9 ?0.7 ?0.8 2 ?11/15/10 ?Mid lobe ?S olid with ? 3.2 ?1.2 ?1.7 ?cystic ?component 3 ?11/15/10 ?Lower lobe ?He terogeneous ?0.7 ?0.7 ?0.8 Comment: ?Multiple nodules seen --------- Left Lobe --------- Date ? L(cm) ? AP(cm) ?TV(cm) 11/15/10 ? 4.3 ? 1.6 ? 1.8 ------- Lesions ------- # ?Date ?Location ?Description ?L ?AP ? TV (cm) 1 ?11/15/10 ?Upper lobe ?Cy stic nodule ?0.3 ?0.2 ?0.3 ?with debris 2 ?11/15/10 ?Mid lobe ?H eterogeneous ?1.6 ?2.1 ?1.6 Comment: ?Multiple nodules seen ------- Isthmus ------- Measurement: ?3 ? mm Comment: ?Normal texture Impression Ultrasound - Thyroid - Summary Abnormal thyroid exam- see discussion b elow Bilateral multiple nodule thyroids. ??T he largest one on the left is somewhat worrisome for mariah gnancy, with macrocalcifications and hypervascularit y, so would suggest FNA. ??The largest nodule on th e right is larger, 3.2 but appears blander, hypovascular a nd no calcifications. But consider FNA of the se lesion also. Can not exclude lymphoma but less likel y. I ??viewed the images and agree with e above interpretation. Thank you for allowing us to participat e in the care of DHEERAJ YUSUF. Please do not hesitate t o call if you have any questions. ?Gregg priest MD Electronically Signed Final Report ?? 11:01 am Procedure Note Gregg Dotson MD - 11/15/2010Formatt ing of this note might be different from the original. Thyroid Report (Signed Final 11/15/2010 11:01 am) Patient Info ID: [id number] : [birth year] (50 yrs ) Name: DHEERAJ YUSUF Visit Date: 011 10:33 am Procedures UTHYRD - Ultrasound Thyroid - [id number] Indications F/u nodules Right Lobe Date L(cm) AP(cm) TV(cm) 11/15/10 5.3 2.2 2.2 ------- Lesions ------- # Date Location Description L AP TV (cm ) 1 11/15/10 Upper lobe Heterogeneous 0.9 0.7 0.8 2 11/15/10 Mid lobe Solid with 3.2 1.2 1.7 cystic component 3 11/15/10 Lower lobe Heterogeneous 0.7 0.7 0.8 Comment: Multiple nodules seen --------- Left Lobe --------- Date L(cm) AP(cm) TV(cm) 11/15/10 4.3 1.6 1.8 ------- Lesions ------- # Date Location Description L AP TV (cm ) 1 11/15/10 Upper lobe Cystic nodule 0.3 0.2 0.3 with debris 2 11/15/10 Mid lobe Heterogeneous 1.6 2 .1 1.6 Comment: Multiple nodules seen ------- Isthmus ------- Measurement: 3 mm Comment: Normal texture Impression Ultrasound - Thyroid - Summary Abnormal thyroid exam- see discussion b elow Bilateral multiple nodule thyroids. The largest one on the left is somewhat worrisome for mariah gnancy, with macrocalcifications and hypervascularit y, so would suggest FNA. The largest nodule on the right is larger, 3.2 but appears blander, hypovascular a nd no calcifications. But consider FNA of the se lesion also. Can not exclude lymphoma but less likel y. I viewed the images and agree with the above interpretation. Thank you for allowing us to participat e in the care of DHEERAJ YUSUF. Please do not hesitate t o call if you have any questions. Gregg Dotson MD Electronically Signed Final Report 11/15 11:01 am Farzaneh Valera MD IMG US GEN ORDERABLES documented in this encounter Visit Diagnoses Not on filedocumented in this encounter Care Teams Metal Sheet Roller Operator Relationship Specialty Start Date End Date Maria Fournier APRN PCP - General 07/06/10 09/09/12 documented as of this encounter
--- OUTSIDE RECORDS SUMMARY | 2022-05-27 14:57 | XMS_ITS | Encounter Summary ---
:1960 Author Organization [facility] [place] [address] Care Team Providers Name Role Phone Maria Fournier APRN Primary Care Provider Encounter Details Date Type Department Care Team Description 10/25/2010 Follow-Up Hematology and Oncology at Farzaneh Hampton MD [facility] Marquis kingsley HEMATOLOGY/[place] [address] [place] [address] [phone] (Wo rk) Social History Tobacco Use Types Packs/Day Years Used Date Never Assessed Sex Assigned at Date Recorded Not on file documented as of this encounter Plan of Treatment Not on filedocumented as of this encounter Visit Diagnoses Not on filedocumented in this encounter Care Teams Sawmill Production Worker Relationship Specialty Start Date End Date Maria Fournier APRN PCP - General 07/06/10 09/09/12 documented as of this encounter
--- OUTSIDE RECORDS SUMMARY | 2022-05-27 14:57 | XMS_ITS | Encounter Summary ---
:1960 Author Organization [facility] [place] [address] Care Team Providers Name Role Phone ShantanuMaria monsalve EDUARDO Primary Care Provider Reason for Referral Consultation (Routine) - Closed Specialty Diagnoses / Procedures Referred By Contact Refer red To Contact Endocrinology Diagnoses Multiple thyroid nodules Farzaneh Valera Golding, Allan C, MD MD [address] [facility] [place] [address] HEMATOLOGY/ONCOLOGY Phone: [place] [address] Referral ID Status Reason Start Date Expiration Date Visits V isits Requested Authorized [id number] Closed Specialty 11/15/2010 11/16/2010 1 1 Service Requested Reason for Visit Reason Onset Date Comments Results 11/15/2010 Encounter Details Date Type Department Care Team Description 11/15/2010 Telephone Hematology and Oncology at Farzaneh Hampton MD Results [facility] Marquis kingsley HEMATOLOGY/[place] [address] [place] [address] [phone] (Wo rk) Social History Tobacco Use Types Packs/Day Years Used Date Former Smoker Cigarettes 1.5 Quit: 08/14/18 93 Alcohol Use Standard Drinks/Week Comments Not Asked 0 (1 standard drink = 0.6 oz pure alcoho l) Sex Assigned at Date Recorded Not on file documented as of this encounter Miscellaneous Notes Telephone Encounter - Lola Licona - 11/18/2010 1:53 PM EDT Hi. [facility] didn't have the referral that you mentioned, so I just made the appt. The soonest appt theyhave with [place] is 12/16 at 930am. The department secretary said if that is too far out (which I assume it is) then you should email [place] directly. Thanks! M Telephone Encounter - Farzaneh Valera MD - 11/15/2010 11:16 AM EDT Called pt and left message that US shows thyroid nodules. Will refer to Dr. Yadav of [facility] for evaluation. Advised pt that these appts are often a few weeks out and this is OK. documented in this encounter Plan of Treatment Scheduled Referrals Name Type Priority Associated Order Schedule Diagnoses Ambulatory referral to Outpatient Referral Routine Multiple th yroid Ordered: Endocrinology nodules 11/15/2010 documented as of this encounter Visit Diagnoses Diagnosis Multiple thyroid nodules - Primary Nontoxic multinodular goiter documented in this encounter Care Teams Helper Shear Operator Relationship Specialty Start Date End Date Maria Fournier APRN PCP - General 07/06/10 09/09/12 documented as of this encounter
--- OUTSIDE RECORDS SUMMARY | 2022-05-27 14:57 | XMS_ITS | Encounter Summary ---
:1960 Author Organization [facility] [place] [address] Care Team Providers Name Role Phone Maria Fournier APRN Primary Care Provider Encounter Details Date Type Department Care Team Description 03/12/2012 Hospital Encounter Laboratory CLINIC, CONV [facility] Farzaneh Valera MD [facility] HEMATOLOGY/[place] [address] [place] [address] Social History Tobacco Use Types Packs/Day [...] Inhalational Spacing by Misc.(Non-Drug; 1 each 2 09/12/ 012 01/22/2015 Device [...] Date/Time Associated Comments Diagnosis IMMUNOGLOBULIN FREE STAT 03/12/2012 1:37 Amyloidosis Resul ts for this LIGHT CHAINS, SERUM PM EDT procedur e are in the results section. IMMUNOGLOBULINS, STAT 03/12/2012 1:37 Amyloidosis Results for this QUANTITATIVE PM EDT procedure are i n the results section. DIFFERENTIAL, AUTOMATED STAT 03/12/2012 1:37 R esults for this PM EDT procedure are i n the results section. CBC (WITH DIFF) STAT 03/12/2012 1:37 Amyloidosis Results f or this PM EDT procedure are i n the results section. PROTEIN STAT 03/12/2012 1:37 Amyloidosis Results for this ELECTROPHORESIS, SERUM PM EDT proce dure are in the results section. COMPREHENSIVE METABOLIC STAT 03/12/2012 1:37 Amyloidosis R esults for this PANEL (NON-FASTING) PM EDT procedur e are in the results section. documented in this encounter Results (ABNORMAL) DIFFERENTIAL, AUTOMATED (03/12/2012 1:37 PM EDT) [facility] Method Time Signature Neutrophils % 70.6 34.0 - CERNER 71.0 % MILLENNIUM Neutr Abs (ANC) 4.77 1.50 - CERNER 6.30 MILLENNIUM x10(3)/mc L Lymphocytes % 15.1 (L) 19.0 - CERNER 53.0 % MILLENNIUM Lymphocytes Abs 1.0 1.0 - 3.6 CERNER x10(3)/mc MILLENNIUM L Monocytes % 11.8 4.0 - CERNER 13.0 % MILLENNIUM Monocyte Abs 0.8 0.2 - 1.0 CERNER x10(3)/mc MILLENNIUM L Eosinophils % 2.2 0.0 - 7.0 CERNER % MILLENNIUM Eosinophils Abs 0.2 0.0 - 0.5 CERNER x10(3)/mc MILLENNIUM L Basophils % 0.3 0.0 - 2.0 CERNER % MILLENNIUM Basophils Abs 0.0 0.0 - 0.2 CERNER x10(3)/mc MILLENNIUM L Immature Gran % 0.00 0.00 - CERNER 0.66 % MILLENNIUM Comment: Immature granulocytes(IG's)percentage an d absolute count will include metamyelocytes, myelocytes, and promyelo cytes. Blood smears from CBCs yielding IG's will be scanned manually for concor dance. If this scan disagrees with the automated IG or if promyelocytes are not ed, a manual differential will be performed. Cheryl Gran Abs 0.00 0.00 - 0.05 x10(3)/mcL CER NER MILLENNIUM Specimen Anatomical Collection Method Collection Time Receive d Time (Source) Location / / Volume Laterality Blood specimen 03/12/2012 1:37 PM 012 1:48 (specimen) EDT PM EDT Farzaneh Valera MD HEMATOLOGY ORDERABLES Performing Organization Address City/State/ZIP Code Phon e Number [place] [phone] CERNER MILLENNIUM Free Light Chains, Serum (03/12/2012 1:37 PM EDT) athologist Signature Glenn Free 1.54 0.33 - CERNER Light Chains 1.94 mg/dL MILLENNIUM Comment: Please note that the performing location for this test has changed. ??As of 04/29/2011 Serum Immunoglobulin Free Lig ht Chains are being analyzed by the [facility]. ??There is NO CHANGE in units or reference intervals. Please contact the chemistry laboratory at [phone] with questions. Lambda Free Light Chains 1.65 0.57 - 2.63 mg/dL CERNER MILLENNIUM Comment: Please note that the performing location for this test has changed. ??As of 04/29/2011 Serum Immunoglobulin Free Lig ht Chains are being analyzed by the [facility]. ??There is NO CHANGE in units or reference intervals. Please contact the chemistry laboratory at [phone] with questions. Glenn/Lambda Free Light Chain Ratio 0.9333 0.2600 - 1.6500 CERNER MILLENNIUM Comment: Please note that the performing location for this test has changed. ??As of 04/29/2011 Serum Immunoglobulin Free Lig ht Chains are being analyzed by the [facility]. ??There is NO CHANGE in units or reference intervals. Please contact the chemistry laboratory at [phone] with questions. Specimen Anatomical Collection Method Collection Time Receive d Time (Source) Location / / Volume Laterality Blood specimen 03/12/2012 1:37 PM 012 1:48 (specimen) EDT PM EDT Resulting Agency Comment Spec In Lab Farzaneh Valera MD CHEMISTRY ORDERABLES Performing Organization Address City/[facility]/ZIP Code Phon e Number [address] CERNER MILLENNIUM (ABNORMAL) Immunoglobulins, Quantitative (03/12/2012 1:37 PM EDT) P athologist Signature IgG 822 700 - 1600 CERNER mg/dL MILLENNIUM IgA 83 70 - 400 CERNER mg/dL MILLENNIUM IgM 299 (H) 40 - 230 CERNER mg/dL MILLENNIUM Specimen Anatomical Collection Method Collection Time Receive d Time (Source) Location / / Volume Laterality Blood specimen 03/12/2012 1:37 PM 012 1:48 (specimen) EDT PM EDT Resulting Agency Comment Spec In Lab Farzaneh Valera MD CHEMISTRY ORDERABLES Performing Organization Address City/[facility]/ZIP Code Phon e Number [address] CERNER MILLENNIUM Protein Electrophoresis, serum (03/12/2012 1:37 PM EDT) Patholo gist Method Time Signature Total Prot 6.4 6.1 - 8.0 CERNER Elec gm/dL MILLENNIUM Albumin Elect 4.15 3.60 - 6.00 CERNER gm/dL MILLENNIUM Alpha1-Globul 0.20 0.10 - 0.30 CERNER in gm/dL MILLENNIUM Alpha2-Globul 0.68 0.40 - 0.90 CERNER in gm/dL MILLENNIUM Beta Globulin 0.57 0.50 - 1.00 CERNER gm/dL MILLENNIUM Gamma 0.79 0.50 - 1.30 CERNER Globulin gm/dL MILLENNIUM M1 Band None None CERNER Detected Detected MILLENNIUM gm/dL Scan See Note CERNER MILLENNIUM Comment: Please see scanned report in art Review under the [facility] Laboratory Heading. Specimen Anatomical Collection Method Collection Time Receive d Time (Source) Location / / Volume Laterality Blood specimen 03/12/2012 1:37 PM 012 1:48 (specimen) EDT PM EDT Narrative This result has an attachment that is no t available. Resulting Agency Comment Spec In Lab Farzaneh Valera MD CHEMISTRY ORDERABLES Performing Organization Address City/State/ZIP Code Phon e Number [place] [phone] CERNER MILLENNIUM (ABNORMAL) Comprehensive metabolic panel (non-fasting) (03/12/2012 1:37 PM EDT) athologist Signature Glucose Lvl 99 60 - 199 CERNER mg/dL MILLENNIUM Comment: Diabetes: >=200 mg/dL plus symp toms BUN 9 8 - 18 mg/dL CERNER MILLENNIUM Creatinine 0.65 (L) 0.70 - 1.20 mg/dL CERNER MILL ENNIUM Comment: Please note that the pediatric reference intervals supplied above were not validated at [facility]. Results from pediatri c patients should be [...] 31 mmol/L CERNER MILLENNI UM Anion Gap 9 5 - 15 mmol/L CERNER MILLENNIU M Calcium 8.6 8.5 - 10.5 mg/dL CERNER JARETH NIUM Total Protein 6.7 6.4 - 8.3 gm/dL CERNER MIL LENNIUM Albumin 4.2 3.2 - 5.2 gm/dL CERNER MILLENN IUM AST 23 0 - 30 unit/L CERNER MILLENNIU M ALT 18 0 - 30 unit/L CERNER MILLENNIU M Alk Phos 83 40 - 104 unit/L CERNER MILLENN IUM Total Bilirubin 0.3 0.2 - 1.3 mg/dL CERNER M ILLENNIUM Bili, Direct 0.1 0.0 - 0.3 mg/dL CERNER MILL ENNIUM Estimated GFR >60 >=60 CERNER MILLENNIU M Comment: The National Kidney Disease Education Pr ogram (NKDEP) has recommended all laboratories report estimated GFR (eGFR) along with plasma creatinine measurements to assist you with recognit ion of early kidney disease. Caveats: ??Plasma creatinine should be a t steady-state (unchanged within the past week). For patient s multiply eGFR by 1.2. The MDRD equation was developed using patients be tween the ages of 18 and 70 years. ?? The MDRD equation has not been validated for patients < 18 years of age and should not be used to assess renal function in the pediatric population. ??The MDRD eGFR equation will also overestimate the true GFR of patients above the age of 70. ??This overestimation is variable bu t increases with age. At present, NKDEP does NOT recommend usi ng the MDRD equation for drug dosing purposes and pharmacists should continue to use their current dosing methods. In addition, numerical eGFR values great er than 60 ml/min/1.73 square meters should be treated as > 60, and not an ex act number due to greater inaccuracies at these higher values. Per NKDEP, they classify normal renal function as any GFR >60ml/min/1.73 square meters; chronic kidney disease wh en GFR <60, and renal failure when GFR <15. ??This calculation may not be valid for patients with atypical muscle mass (very lean or obese), acute renal failur e, and in patients with diabetic kidney disease. References: http://nkdep.nih.gov/resources/NKDEP_Sug gestn4Labs_0606_508.pdf http://www.kidney.org/professionals/kls/ pdf/faq_gfr.pdf Veda Baker, Erick NA, Charles AK, Momo TS, Mainor AD, Lea SUZY. Relative performance of the MDRD and CKD-EPI equa tions for estimating glomerular filtration rate among patients with vari ed clinical presentations. Clin J Am Soc Nephrol;6:1963-72. Specimen Anatomical Collection Method Collection Time Receive d Time (Source) Location / / Volume Laterality Blood specimen 03/12/2012 1:37 PM 012 1:48 (specimen) EDT PM EDT Resulting Agency Comment Spec In Lab Farzaneh Valera MD CHEMISTRY ORDERABLES Performing Organization Address City/State/[place] [address] CERNER MILLENNIUM CBC (with Diff) (03/12/2012 1:37 PM EDT) P athologist Signature WBC 6.8 4.0 - 10.0 CERNER x10(3)/mcL MILLENNIUM RBC 4.94 3.93 - 5.22 CERNER x10(6)/mcL MILLENNIUM Hemoglobin 13.8 11.2 - 15.7 CERNER gm/dL MILLENNIUM Hematocrit 40.0 34.0 - 45.0 CERNER % MILLENNIUM MCV 81.0 79.0 - 94.0 CERNER fL MILLENNIUM MCH 27.9 26.6 - 32.2 CERNER pg MILLENNIUM MCHC 34.5 32.0 - 36.5 CERNER gm/dL MILLENNIUM Platelets 258 145 - 370 CERNER x10(3)/mcL MILLENNIUM RDWSD 41.4 35.0 - 46.0 CERNER fL MILLENNIUM RDWCV 14.0 10.9 - 14.4 CERNER % MILLENNIUM MPV 9.4 9.0 - 12.0 CERNER fL MILLENNIUM Specimen Anatomical Collection Method Collection Time Receive d Time (Source) Location / / Volume Laterality Blood specimen 03/12/2012 1:37 PM 012 1:48 (specimen) EDT PM EDT Resulting Agency Comment Spec In Lab Farzaneh Valera MD HEMATOLOGY ORDERABLES Performing Organization Address City/State/[place] [address] [facility] documented in this encounter Visit Diagnoses Diagnosis Amyloidosis Amyloidosis, unspecified documented in this encounter Care Teams Automobile Mechanic Radiator Relationship Specialty Start Date End Date Maria Fournier APRN PCP - General 07/06/10 09/09/12 documented as of this encounter
--- OUTSIDE RECORDS SUMMARY | 2022-05-27 14:57 | XMS_ITS | Encounter Summary ---
:1960 Author Organization [facility] Address [address] [place] [address] Care Team Providers Name Role Phone Maria Fournier APRN Primary Care Provider Reason for Visit Reason Comments Radiation Consult cutaneous amyloid right leg Encounter Details Date Type Department Care Team Description 03/07/2011 Office Visit Radiation Oncology at [facility], Christina Baker MD Amyloidosis cutis [facility] [place], [place] (Primary Dx) [address] [place], [place] RADIATION ONCOL OGY [address] [place] [address] [phone] Social History Tobacco Use Types Packs/Day Years [...] Sign Reading Time Taken Comments Blood Pressure 135/87 03/07/2011 9:00 AM EDT Pulse 72 03/07/2011 9:00 AM EDT Temperature - - Respiratory Rate - - Oxygen Saturation 98% 03/07/2011 9:00 AM EDT Inhaled Oxygen Concentration - - Weight 80.7 kg (178 lb) 03/07/2011 9:00 AM EDT Height 165.1 cm (5' 5) 03/07/2011 9:00 AM EDT pt state s hgt Body Mass Index 29.62 03/07/2011 9:00 AM EDT documented in this encounter Progress Notes Shantelle Jim MD - 03/07/2011 10:26 AM EDT Subjective: Patient ID: Francie Yusuf is a 51 y.o. female referred by Dr. 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 HPI: 01/17/[address] Whitney, @ which time noted being bothered by 4 cm amyloid lesion on medial lower leg, which had improved only slightly w/1L steroid injxn x 1. Other smaller lesions noted. Exam showed 4 cm brownish-pink nodule medial lower leg, rounded, & 3 other smaller 1 cm flesh colored nontender nodules. Note made that tx of nodular amyloid limited & larger lesion very large & excision would be ideal, but lesion too sizeable for primary closure so would like to avoid surgical approach. XRT consult discussed. 01/17/[address] Valera, w/note made that cutaneous amyloid lesions relatively stable & examshowing large 2 cm medial raised lesion R leg w/a small lesion on R leg & 3 small 1 cm lesions Lleg w/trace foot & ankle edema. Rec for referral for Rad Onc eval for discussion of xrt options & FU in 6 mos w/Dr. Whitney in [facility] clinic. Review of Systems: Areas of amyloid not painful, although if bumps larger lesion on R leg, it will be uncomfortable. Large amyloid lesion on R lower leg present for 1.5 yrs; increasing. + swelling bothlower legs x 1 yr. Appetite good. Energy level good. No h/o xrt. Objective: Physical Exam Constitutional: She is oriented to person, place, and time. She appears well- developed and well-nourished. No distress. HENT: Head: Normocephalic. Eyes: Conjunctivae and EOM are normal. Right eye exhibits no discharge. Left eye exhibits no discharge. No scleral icterus. Musculoskeletal: Normal range of motion. She exhibits edema (Trace ankle edema B.). She exhibits no tenderness. Neurological: She is alert and oriented to person, place, and time. No cranial nerve deficit. She exhibits normal muscle tone. Coordination normal. Skin: She is not diaphoretic. There is a 3.5 x 2.5 cm raised, soft, brown-pink growth on medial R denson, which is slightly tender on palpation. She has 3 other < 1 cm subq nodules on R lower leg. There is a < 1 cm subq noduleon L lower leg. Psychiatric: She has a normal mood and affect. Her behavior is normal. Judgment and thought content normal. 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 Extensive literature search shows no report on use of xrt for amyloidosis cutis. Discussion w/colleagues Severiano Jordan & Biju revealed 1 report of use of xrt for amyloidosis of trachea on 1 patient, & xrt was not helpful in that situation. Severiano Jordan & Biju do not feel xrt should be rec'd forMs. Paramjit. I discussed above w/MsEdgar Yusuf & did not recommend xrt for her. She indicated understanding of my recommendation. No problem-specific visit notes found for this encounter. Simba, Libia Barraza RN - 03/07/2011 9:28 AM EDT RADIATION ONCOLOGY NURSING INITIAL NURSING ASSESSMENT ADVANCE DIRECTIVES: In EDH [ ] Has documents [ ] Will bring in [ ] IF NO: Advance Directive pamphlet provided [ ] Patient declined info: [x ] Referral to Care Management [ ] PRESENTING SYSTEMS and PATHOLOGY: Cutaneous amyloid of bilateral shins. Dx 2010. Large 2cm medial raised lesion on R leg. On small lesion on R leg and 3 small 1cm lesions on L leg. Trace foot and ankleedema Referred for XRT consult by Dr Valera for right lower inner leg lesion . Prior Radiotherapy: [x ]no [ ]yes,site treated: Facility: Prior Chemotherapy: [ ]no [ ]yes,last treatment: Facility: Prior Hormonal Therapy:[ ]no [ ]yes,last treatment: Facility Past medical and Surgical History: See history section of eD-H At risk for fall? [ ]no [ ]yes, explanation: Review of Systems Constitutional: Positive for weight loss (intentional weight loss of 15 lbs over 3 months). Negativefor fever, chills and malaise/fatigue. HENT: History of sinus infections Eyes: Negative. Negative for blurred vision (wears drug store glasses for reading). Respiratory: Negative for cough and wheezing. Asthma Cardiovascular: Positive for palpitations (has been told she also has heart murmmer ), claudication (had blood clots ?TIA in the past) and leg swelling (ankle edema worseon right side). Gastrointestinal: Negative. Negative for heartburn, nausea, vomiting, diarrhea, constipation and blood in stool. Genitourinary: Negative. Negative for dysuria, urgency, frequency and hematuria. Musculoskeletal: Positive for back pain (lower back pain 2/10). Joint pain: right knee torn meniscus Skin: Positive for itching (using cream that Dr Whitney prescribed w/ partial relief) and rash (left hip). Neurological: Positive for headaches (occasional head ache in mornings). Negative for dizziness and seizures. Endo/Heme/Allergies: Positive for environmental allergies. Bruises/bleeds easily. Psychiatric/Behavioral: Negative for depression. The patient has insomnia. The patient is not nervous/anxious. Claustrophobia or requires sedation for MRIs [ ]no [ x]yes Has had MRI with our sedative and OK but not fun Allergy to CT or MRI contrast agent or iodine or shellfish [x ]no [ ]yes Diabetic and on metformin [ x]no [ ]yes Metal in body, implanted device, worked with metal, : No Body piercing [ ]no [x ] yesears Dentures [ ]no [x ]yesfull upper and lower Pacemaker [ x]no [ ]yes Difficulty breathing while lying flat [ x]no [ ]yes Kidney problems/creatinine [x ]no [ ]yes SOCIAL ASSESSMENT: See EDH social assessment information entered. Support Systems: Transportation:denies issues Barriers to treatment: none Financial Issues:denies LEARNING STYLE: Visual and verbal, wants written material and verbal discussion. documented in this encounter Plan of Treatment Not on filedocumented as of this encounter Visit Diagnoses Diagnosis Amyloidosis cutis - Primary Other amyloidosis documented in this encounter Care Teams Box Nailer Relationship Specialty Start Date End Date Maria Fournier APRN PCP - General 07/06/10 09/09/12 documented as of this encounter
--- OUTSIDE RECORDS SUMMARY | 2022-05-27 14:57 | XMS_ITS | Encounter Summary ---
:1960 Author Organization [place] [address] Care Team Providers Name Role Phone Maria Fournier APRN Primary Care Provider Encounter Details Date Type Department Care Team Description 10/25/2010 Office Visit Kelsey Wren MD [facility] [place] [address] [place] [address] [facility] [phone] [place], [place] [address] [phone] (Wo rk) Social History Tobacco Use Types Packs/Day Years Used Date Never Assessed Sex Assigned at Date Recorded Not on file documented as of this encounter Plan of Treatment Not on filedocumented as of this encounter Visit Diagnoses Not on filedocumented in this encounter Care Teams Test Hole Driller Relationship Specialty Start Date End Date Maria Fournier APRN PCP - General 07/06/10 09/09/12 documented as of this encounter
--- OUTSIDE RECORDS SUMMARY | 2022-05-27 14:57 | XMS_ITS | Encounter Summary ---
:1960 [place] [address] Care Team Providers Name Role Phone Maria Fournier APRN Primary Care Provider Encounter Details Date Type Department Care Team Description 10/07/2010 Office Visit Dermatology Raegan Del Rio MD [address] ALLERGY AND IMMUNOLOGY [address] [address] [phone] (Wo rk) Social History Tobacco Use Types Packs/Day Years Used Date Never Assessed Sex Assigned at Date Recorded Not on file documented as of this encounter Plan of Treatment Not on filedocumented as of this encounter Visit Diagnoses Not on filedocumented in this encounter Care Teams Vice President Of Talent Acquisition Relationship Specialty Start Date End Date Maria Fournier APRN PCP - General 07/06/10 09/09/12 documented as of this encounter
--- OUTSIDE RECORDS SUMMARY | 2022-05-27 14:57 | XMS_ITS | Encounter Summary ---
:1960 Author Organization [facility] [place] [address] Care Team Providers Name Role Phone ShantanuArchie monsalve EDUARDO Primary Care Provider Reason for Referral Consultation (Routine) - Closed Specialty Diagnoses / Procedures Referred By Contact Refer red To Contact Radiation Oncology Diagnoses Amyloidosis Farzaneh Valera Jarvis, Lesley A, MD MD [facility] D R RADIATION ONCOLOGY HEMATOLOGY/[place] [address] [place] [address] Referral ID Status Reason Start Date Expiration Date Visits V isits Requested Authorized [id number] Closed Consult, 01/17/2011 07/16/2011 1 1 Test & Treat Encounter Details Date Type Department Care Team Description 01/17/2011 Hospital Encounter Hematology and Farzaneh Valera Amyloidosis Oncology at [facility] MD [facility] [address] HEMATOLOGY/[place] [address] DEPT. [phone] [place], [place] [address] (Wo rk) Social History Tobacco [...] cream daily documented as of this encounter Progress Notes Farzaneh Valera MD - 01/17/2011 2:46 PM [place] [address] FOLLOW-UP PATIENT EVALUATION PROBLEM LIST: Patient Active Problem List Diagnoses Code ??? 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 Asthma 493.90AE ??? Sinusitis, chronic 473.9AG ??? Antiphospholipid antibody syndrome 289.81DA ??? Edema of both legs 782.3BX ??? Miscarriage 634.90H ??? Thyroid nodule 241.0B ??? 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 Hypertension. 2. Antiphospholipid syndrome. [...] W/U to date w/ neg ECHO at [facility]. CT w/ one para-aortic 2cm LN which we will follow. Neg SPEP and 24 hour urine at [facility]. Neg fat pad biopsy. BMBx not yet completed. a. repeat CT, February 2010, with no pathologically enlarged adenopathy. Bone marrow biopsy negative for amyloid and lymphoma. INTERIM HISTORY OF PRESENT ILLNESS: It was my pleasure to see Francie Yusuf back in clinic today. Francie Yusuf is a 50 y.o. 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 Only problem has been edema below kneein ankle and feet. Previous w/u was neg for 24 hour urine and ECHO which was normal. She had thyroidbiopsies that were benign. Followed by Dr. Magana. Since that time has noted numbness in face and discomfort in sinus and ears. cutanous amyloid lesions relativley stable. Large 2cm medial raised lesion on R leg. On small lesionon R lege and 3 small 1cm lesions on L leg. ROS Energy level:stable Pain: No Appetite:good Fevers/chills/sweats:No Bruising/bleeding/melena:No Recent infections:No HEENT: see above Nausea/vomiting/diarrhea/constipation:No SOB/NOBLE/chest pain:No Change in adenopathy or other masses:No Unexpected weight loss or gain:No Skin rashes or petechiae: see above Musculoskeletal complaints:No Extremities:edema of bilateral ankles. Dopplers with PCP are normal. Neurologic symptoms:No Mood: Normal Sleep: noifficulty sleeping MEDS: No outpatient prescriptions have been marked as taking for the 01/17/11 encounter (Hospital Encounter)with QUINCY FARZANEH VelozEdgar Allergies: No Known Allergies INTERIM SOCIAL HISTORY Changes in job, home situation, tobacco or alcohol use: see HPI PHYSICAL EXAM There were no vitals taken for this visit. There is no height or weight on file to calculate BSA. GENERAL: Francie Yusuf appears well and is in no acute distress. ENT: Oral pharynx clear. EYES: MICHAEL NECK: Supple without adenopathy. AXILLARY: no adenopathy OTHER LYMPH: no adenopathy CARDIAC: Regular rate and rhythm without S3,S4 or murmurs. LUNGS: Clear to auscultation./percussion ABDOMEN: Soft and non-tender without hepatosplenomegaly or masses. EXTREMITIES: No cyanosis, clubbing, edema or calf tenderness. SKIN: Large 2cm medial raised lesion on R leg. On small lesion on R lege and 3 small 1cm lesions on L leg. Trace foot and ankle edema. NEUROLOGICAL: Alert and oriented to person, place and time. MUSCULOSKELETAL: No spinal or chest wall tenderness. LABORATORY STUDIES Recent Results (from the past 72 hour(s)) CBC (WITH DIFF) Component Value Range ??? WBC 7.4 4.0 - 10.0 (x10(3)/mcL) ??? RBC 4.91 3.93 - 5.22 (x10(6)/mcL) ??? Hemoglobin 14.1 11.2 - 15.7 (gm/dL) ??? Hematocrit 41.2 34.0 - 45.0 (%) ??? MCV 83.9 79.0 - 94.0 (fL) ??? MCH 28.7 26.6 - 32.2 (pg) ??? MCHC 34.2 32.0 - 36.5 (gm/dL) ??? Platelets 269 145 - 370 (x10(3)/mcL) ??? RDWSD 40.5 35.0 - 46.0 (fL) ??? RDWCV 13.4 10.9 - 14.4 (%) ??? MPV 9.7 9.0 - 12.0 (fL) COMPREHENSIVE METABOLIC PANEL (NON-FASTING) Component Value Range ??? Glucose Lvl 91 60 - 199 (mg/dL) ??? BUN 10 8 - 18 (mg/dL) ??? Creatinine 0.67 (*) 0.70 - 1.20 (mg/dL) ??? Sodium 138 135 - 145 (mmol/L) ??? Potassium 3.7 3.5 - 5.0 (mmol/L) ??? Chloride 100 98 - 107 (mmol/L) ??? CO2 28 22 - 31 (mmol/L) ??? Anion Gap 10 5 - 15 (mmol/L) ??? Calcium 8.7 8.5 - 10.5 (mg/dL) ??? Total Protein 6.6 6.4 - 8.3 (gm/dL) ??? Albumin 4.2 3.2 - 5.2 (gm/dL) ??? AST 25 0 - 30 (unit/L) ??? ALT 22 0 - 30 (unit/L) ??? Alk Phos 65 40 - 104 (unit/L) ??? Total Bilirubin 0.3 0.2 - 1.3 (mg/dL) ??? Bili, Direct 0.1 0.0 - 0.3 (mg/dL) ? ? Estimated GFR >60 >=60 PROTEIN ELECTROPHORESIS, SERUM Component Value Range ??? Total Prot Elec 6.4 6.1 - 8.0 (gm/dL) IMMUNOGLOBULINS, QUANTITATIVE Component Value Range ??? IgG 769 700 - 1600 (mg/dL) ??? IgA 64 (*) 70 - 400 (mg/dL) ??? IgM 215 40 - 230 (mg/dL) REFLEX LAB-A-DIFF Component Value Range ??? Neutrophils % 73.4 (*) 34.0 - 71.0 (%) ??? Neutr Abs (ANC) 5.44 1.50 - 6.30 (x10(3)/mcL) ??? Lymphocytes % 15.5 (*) 19.0 - 53.0 (%) ??? Lymphocytes Abs 1.2 1.0 - 3.6 (x10(3)/mcL) ??? Monocytes % 7.0 4.0 - 13.0 (%) ??? Monocyte Abs 0.5 0.2 - 1.0 (x10(3)/mcL) ??? Eosinophils % 3.6 0.0 - 7.0 (%) ??? Eosinophils Abs 0.3 0.0 - 0.5 (x10(3)/mcL) ??? Basophils % 0.4 0.0 - 2.0 (%) ??? Basophils Abs 0.0 0.0 - 0.2 (x10(3)/mcL) ??? Immature Gran % 0.10 0.00 - 0.66 (%) ??? 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 I am not sure what to make of the LE edema but w/ neg systemic w/u one year ago I suspect it is more likley physiologic and not related to the amyloid. Could be related to her weight. She has lost about 12 # without change in edema. Will defer to PCP at this point She would like treatmetn of the larger amyloid lesion on her Right leg. She did not have a response to the steroid injection. Will refer to Dr. Jordan to discuss XRT options for her. If XRT is an option she prefers to have it at [email or web address]] if possible. RTC in [address] Whitney in [facility]. RTC in [address] Whitney in [facility] total time:30 time in counsellin Copy ARCHIE GARCÍA APRN documented in this encounter Plan of Treatment Scheduled Referrals Name Type Priority Associated Diagnoses Order S [facility] Ambulatory referral Outpatient Referral Routine Amyloidosis O rdered: to Radiation 01/17/2011 Oncology documented as of this encounter Procedures Procedure Name Priority Date/Time Associated Comments Diagnosis IMMUNOGLOBULINS, Routine 01/17/2011 1:27 PM Amyloidosis Resul ts for this QUANTITATIVE EDT procedure are i n the results section. DIFFERENTIAL, Routine 01/17/2011 1:27 PM Results for this AUTOMATED EDT procedure are i n the results section. CBC (WITH DIFF) Routine 01/17/2011 1:27 PM Amyloidosis Result s for this EDT procedure are i n the results section. PROTEIN Routine 01/17/2011 1:27 PM Amyloidosis Results f or this ELECTROPHORESIS, SERUM EDT proce dure are in the results section. COMPREHENSIVE Routine 01/17/2011 1:27 PM Amyloidosis Results for this METABOLIC PANEL EDT procedure ar e in (NON-FASTING) the results section. documented in this encounter Results (ABNORMAL) REFLEX LAB-A-DIFF (01/17/2011 1:27 PM EDT) [facility] Method Time Signature Neutrophils % 73.4 (H) 34.0 - CERNER 71.0 % MILLENNIUM Neutr Abs (ANC) 5.44 1.50 - CERNER 6.30 MILLENNIUM x10(3)/mc L Lymphocytes % 15.5 (L) 19.0 - CERNER 53.0 % MILLENNIUM Lymphocytes Abs 1.2 1.0 - 3.6 CERNER x10(3)/mc MILLENNIUM L Monocytes % 7.0 4.0 - CERNER 13.0 % MILLENNIUM Monocyte Abs 0.5 0.2 - 1.0 CERNER x10(3)/mc MILLENNIUM L Eosinophils % 3.6 0.0 - 7.0 CERNER % MILLENNIUM Eosinophils Abs 0.3 0.0 - 0.5 CERNER x10(3)/mc MILLENNIUM L [...] Location / / Volume Laterality Blood specimen 01/17/2011 1:27 PM 011 1:50 (specimen) EDT PM EDT Farzaneh Valera MD HEMATOLOGY ORDERABLES Performing Organization Address City/[facility]/ZIP Code Phon e Number [address] CERNER MILLENNIUM (ABNORMAL) Immunoglobulins, Quantitative (01/17/2011 1:27 PM EDT) P athologist Signature IgG 769 700 - 1600 CERNER mg/dL MILLENNIUM IgA 64 (L) 70 - 400 CERNER mg/dL MILLENNIUM IgM 215 40 - 230 CERNER mg/dL MILLENNIUM Specimen Anatomical Collection Method Collection Time Receive d Time (Source) Location / / Volume Laterality Blood specimen 01/17/2011 1:27 PM 011 1:50 (specimen) EDT PM EDT Farzaneh Valera MD CHEMISTRY ORDERABLES Performing Organization Address [facility]/ZIP Code Phon e Number [address] CERNER MILLENNIUM Serum Protein Electrophoresis (PEP) (01/17/2011 1:27 PM EDT) Patholo gist Method Time Signature Total Prot 6.4 6.1 - 8.0 CERNER Elec gm/dL MILLENNIUM Albumin Elect 4.09 3.60 - 6.00 CERNER gm/dL MILLENNIUM Alpha1-Globul 0.20 0.10 - 0.30 CERNER in gm/dL MILLENNIUM Alpha2-Globul 0.73 0.40 - 0.90 CERNER in gm/dL MILLENNIUM Beta Globulin 0.58 0.50 - 1.00 CERNER gm/dL MILLENNIUM Gamma 0.79 0.50 - 1.30 CERNER Globulin gm/dL MILLENNIUM M1 Band None None CERNER Detected Detected MILLENNIUM gm/dL Scan See Note CERNER MILLENNIUM Comment: Please see scanned report in art Review under the Non-DH Laboratory Heading. Specimen Anatomical Collection Method Collection Time Receive d Time (Source) Location / / Volume Laterality Blood specimen 01/17/2011 1:27 PM 011 1:50 (specimen) EDT PM EDT Narrative This result has an attachment that is no t available. Farzaneh Valera MD CHEMISTRY ORDERABLES Performing Organization Address City/State/ZIP Code Phon [place] [address] CERNER MILLENNIUM (ABNORMAL) Comprehensive metabolic panel (CMP) (01/17/2011 1:27 PM EDT) P athologist Signature Glucose Lvl 91 60 - 199 CERNER mg/dL MILLENNIUM Comment: Diabetes: >=200 mg/dL plus symp toms BUN 10 8 - 18 mg/dL CERNER MILLENNIUM Creatinine 0.67 (L) 0.70 - 1.20 mg/dL CERNER MILL ENNIUM Sodium 138 135 - 145 mmol/L CERNER [...] 31 mmol/L CERNER MILLENNI UM Anion Gap 10 5 - 15 mmol/L CERNER MILLENNIU M Calcium 8.7 8.5 - 10.5 mg/dL CERNER JARETH NIUM Total Protein 6.6 6.4 - 8.3 gm/dL CERNER MIL LENNIUM Albumin 4.2 3.2 - 5.2 gm/dL CERNER MILLENN IUM AST 25 0 - 30 unit/L CERNER MILLENNIU M ALT 22 0 - 30 unit/L CERNER MILLENNIU M Alk Phos 65 40 - 104 unit/L CERNER MILLENN IUM [...] week). For patient s multiply eGFR by 1.2.MDRD equation has not been validated for pediatric pat ients and is only valid for patients with age >= 18 years. At present, NKDEP does NOT recommend usi [...] kidney disease. References: http://nkdep.nih.gov/resources/NKDEP_Sug gestn4Labs_0606_508.pdf http://www.kidney.org/professionals/kls/ pdf/faq_gfr.pdf Specimen Anatomical Collection Method Collection Time Receive d Time (Source) Location / / Volume Laterality Blood specimen 01/17/2011 1:27 PM 011 1:50 (specimen) EDT PM EDT Farzaneh Valera MD CHEMISTRY ORDERABLES Performing Organization Address City/State/ZIP Code Phon e Number [place] [phone] [facility] MILLENNIUM CBC (with Diff) (01/17/2011 1:27 PM EDT) P athologist Signature WBC 7.4 4.0 - 10.0 CERNER x10(3)/mcL MILLENNIUM RBC 4.91 3.93 - 5.22 CERNER x10(6)/mcL MILLENNIUM Hemoglobin 14.1 11.2 - 15.7 CERNER gm/dL MILLENNIUM Hematocrit 41.2 34.0 - 45.0 CERNER % MILLENNIUM MCV 83.9 79.0 - 94.0 CERNER fL MILLENNIUM MCH 28.7 26.6 - 32.2 CERNER pg MILLENNIUM MCHC 34.2 32.0 - 36.5 CERNER gm/dL MILLENNIUM Platelets 269 145 - 370 CERNER x10(3)/mcL MILLENNIUM RDWSD 40.5 35.0 - 46.0 CERNER fL MILLENNIUM RDWCV 13.4 10.9 - 14.4 CERNER % MILLENNIUM MPV 9.7 9.0 - 12.0 CERNER fL MILLENNIUM Specimen Anatomical Collection Method Collection Time Receive d Time (Source) Location / / Volume Laterality Blood specimen 01/17/2011 1:27 PM 011 1:50 (specimen) EDT PM EDT Farzaneh Valera MD HEMATOLOGY ORDERABLES Performing Organization Address City/State/[place] [address] [facility] documented in this encounter Visit Diagnoses Diagnosis Amyloidosis Amyloidosis, unspecified documented in this encounter Care Teams Rigging Foreman Relationship Specialty Start Date End Date Archie García APRN PCP - General 07/06/10 09/09/12 documented as of this encounter
--- OUTSIDE RECORDS SUMMARY | 2022-05-27 14:57 | XMS_ITS | Encounter Summary ---
:1960 Author Organization [facility] [place] [address] Care Team Providers Name Role Phone Maria Fournier APRN Primary Care Provider Reason for Visit Reason Comments Thyroid Nodule Encounter Details Date Type Department Care Team Description 12/30/2010 Office Visit Endocrinology at [facility] C Zack Magana, Thyroid nodule [facility] (Primary Dx) Drive [address] [place] [phone] [place] [address] [phone] Social History Tobacco Use Types Packs/Day Years Used Date Former Smoker Cigarettes 1.5 Quit: 08/14/18 93 Alcohol Use Standard Drinks/Week Comments Not Asked 0 (1 standard drink = 0.6 oz pure alcoho l) Sex Assigned at Date Recorded Not on file documented as of this encounter Progress Notes Zack Magana MD - 12/30/2010 1:42 PM EDT I have seen the patient and reviewed the resident's above history and I agree with the details as written. The assessment and plan were formulated in discussion with me and I agree with them as documented. I was the attending physician supervising the resident in the above care and FNA ubert Thompson MD - 12/30/2010 12:02 PM EDT Reason: Thyroid nodules History: The patient is 50 years old female with PMH as below is seen here for thyroid nodule. The patient was found to have thyroid nodule in February of [address] scan[address] Her CT scan was likely done for amyloidosis work up, or for rheumatologic disease history. The patient had recent follow-up CT scan along with thyroid ultrasound. Her ultrasound showed stable right nodule, but also had left lobe nodule. Biopsy was recommended by Radiology. The patient has no known history of neck radiation and there is family history of thyroid cancer. Patient's mother did have large benign goiter which was eventually removed. She has no complaints. Thyroid Compressive symptoms: Globus sensation: No Dysphagia: No Dysphonia: No Dyspnea: No History of neck radiation: No F. History of thyroid cancer: No, Mother had benign goiter Constitutional: Denies heat / cold intolerance Denies weight changes Eyes: Denies eye/vision change ENT: Denies voice changes Pulmonary: Denies dyspnea Cardiovascular: Denies palpitations, leg swelling GI: Denies constipation, diarrhea Integumentary: Denies changes in perspiration / rash hyperpigmentation pruritis, changes in hair density Neurologic: Denies tremor, sleep disturbances Psychiatric: Denies depression, denies changes in behavior / anxiety Musculoskeletal: Denies proximal muscle weakness Past Medical History: Cutaneous amyloidosis Anti-phospholipid ant-body syndrome Asthma Medications: Reviewed with the patient Allergies: NKDA Family Hx: Thyroid cancer: No Mother with goiter Pituitary problems: No Hypercalcemia: No Social history: Tobacco: No Etoh: occasional Physical Exam: General: NAD,AAOx3 HEENT: EOMI, anicteric, PERRL, moist mucous membranes, no lid lag/exophtalmous Neck: No visible goiter. On palpation, has thyromegaly, likely double the size of normal. No obviousdominant nodule felt other than just enlarged gland bilateraly. No lymphadenopathy CV: S1 S2, RRR, No RGM Lungs: Clear Abd: soft, NT Neuro: reflexes 2+, no tremor of hands Extremities: no lower extremity edema Integumentary: Skin warm/dry , has lower extremity cutaneous amyloid lesions LABS: No recent labs Thyroid US was reviewed and is detailed below. Assessment: The patient is 50 y.o. female with thyroid nodules. The patient has no compressive symptoms. Clinically, she appears euthyroid. The patient has no known history of radiation exposure, and there is no family history of thyroid cancer. She has family history of benign goiter. Thyroid US was reviewed and the findings are consistent with multinodular goiter. She does have 2 large dominant nodules in each lobe. The left lobe nodule has slightly less clear borders than one in the right. Both of these nodules have some cystic degenration. Other than large size these nodules have no other high risk characteristics. At our institution, roughly 3-4% of similar appearing nodules turned out to be malignant. Due to large size we do recommend biopsy of these dominant lesions. We also recommend to obtain TSH. If her TSH is high in that case she will benefit from thyroid replacement both from hypothyroidism treatment and it will also slowdown the goiter growth. In general, approximately 5% of individuals have palpable thyroid nodules and 30% or more of adults have non-palpable nodules. The prevalence of nodules increases with age, so that perhaps 50% of individuals older than 60 years of age have nodules. Many of these nodules will be well under 1cm in size.The incidence of thyroid cancer is low, but rising.The prevalence of thyroid cancer is low compared with the prevalence of thyroid nodule. There have been a number of studies that have estimated risk of malignancy in thyroid nodule. The estimated risk varies with size and other characteristics of nodules selected for biopsy, the technique used for the biopsy, the institution and its referral patterns, and the characteristics of the local population. Most studies have estimated malignancy risk in nodules that are palpable or > 1cm on U/S to be in the range of 3-15%. Recommendations: We recommend biopsy of both left and right lobe dominant nodules. Option of monitoring alone was also discussed with the patient. Ms. Yusuf wishes to proceed with fine needle aspiration. We will also obtain TSH with next draw. If her pathology is benign then we will see her back in a year for follow-up thyroid ultrasound. Hubert Lloyd MD Zack Magana MD - 12/30/2010 11:46 AM EDT PROCEDURE: THYROID FNA Indication: Right and left dominant nodules. Informed consent was obtained after a discussion of the nature of the procedure, its risks, benefitsand possible alternatives. Immediately prior to the start of the procedure: - The patient's identity was confirmed using two identifiers - The intended procedure, patient positioning and availability of all required equipment was also confirmed. - The proper site(s)/side(s) of the nodule(s) was/were confirmed by visualization with ultrasound. The biopsy site(s) on the patient's neck was/were prepared using isopropyl alchohol. 2 passes of a 25g needle were performed at each site. The needle placement was ultrasound guided. The needle was visualized in the nodule in each pass. The procedure was well tolerated by the patient. The patient was given a thyroid FNA post-procedure handout upon completion. documented in this encounter Plan of Treatment Scheduled Orders Name Type Priority Associated Diagnoses Order S chedule Cytopathology Lab Routine Thyroid nodule Ordered: Non-Gynecological Cytopathology Lab Routine Thyroid nodule Ordered: Non-Gynecological documented as of this encounter Procedures Procedure Name Priority Date/Time Associated Diagnosis Comme nts NON-MUNICIPAL BOND TRADER FINAL Routine 12/30/2010 2:24 PM Results for this REPORT EDT procedure are i n the results section. NON-MUNICIPAL BOND TRADER FINAL Routine 12/30/2010 2:21 PM Results for this REPORT EDT procedure are i n the results section. TSH Routine 12/30/2010 11:58 AM Thyroid nodule Result s for this EDT procedure are i n the results section. documented in this encounter Results NON-MUNICIPAL BOND TRADER FINAL REPORT (12/30/2010 2:24 PM EDT) Component Value Ref Test Analysis Performed At [facility] Method Time Signature Non-Manager Project CERNER Final Report ? [facility] ? Provider: ?? ZACK MAGANA ?Pt. Name: ?? YUSUFDHEERAJ Janet ? Acc #: ?[id number] ?Pt. MRN: ?[id number] ? Col Date: ?? 1 ? /Sex: ?1960,(50 years),Female ? Rec Date: ?? 12/30/2010 ? LOC: ?5C ? CYTOPATHOLOGY: ??NGYN ? ---Adequacy--- ? Specimen submitted is satisfactory. ? ---Cytopathologic Diagnosis--- ? Negative for Malignancy ? 12/31/10 ?Screened by: ? FMQ ? Rescreened by: ?? ANNE,EJG ? 01/04/11 ?Verified by: ? Jamie RAMOS, Aden Grijalva ?Cytopa thologist ? (Electronic Signature) ? ---Comment--- ? Benign ? Compatible with a cruz ign follicular nodule (includes adenomatoid nodule; ? colloid nodule). ? Cytologic preservation: ?Adequate. ? Cellularity (follicular cells): ?Low. ? Colloid: ?A very small amount noted. ? Macrophages: ?Not noted. ? Architectural pattern: ?Predominantly macrofollicular pattern (see note) . ? Note: ?While the pattern is macrofollicular , colloid is not conspicuous. ?Suggest clinical correlation and follow-up as clinically indicated. ? ---Clinical Information--- ? Specimen Source: ?Thyroid: right (US-guided FNA) ? Pertinent Clinical Data and Significant Therapy: ? [facility] ? Provider: ?? ZACK MAGANA ?Pt. Name: ?? DHEERAJ YUSUF ? Acc #: ?[id number] ?Pt. MRN: ?[id number] ? Col Date: ?? 1 ? /Sex: ?1960,(50 years),Female ? Rec Date: ?? 12/30/2010 ? LOC: ?5C ? CYTOPATHOLOGY: ??NGYN ?Nodule. ? Clinical Impression: ?Goiter. ? Pertinent Radiologic Findings: ? Size: 3.2 ? Echogenicity: ??(none provided) ? Cystic: Partial ? Calcification: No ? Vascularity: Absent/Low ? Gross Description: ?Received in Cyto rich Red, approximately 10 ml. total volume of clear, ? pink fluid. ?Total Preparation: Liquid Based Prep 1; Diff Quik 2; Pap Stain 2. Specimen (Source) Anatomical Collection Method Collection Time Re ceived Time Location / / Volume Laterality 12/30/2010 2:24 PM EDT Zack Magana MD PATHOLOGY/CYTOLOGY ORDERABLE S Performing Organization Address City/State/Z[place] [address] [facility] NON-MUNICIPAL BOND TRADER FINAL REPORT (12/30/2010 2:21 PM EDT) Component Value Ref Test Analysis Performed At [facility] Range Method Time Signature Non-Manager Project [facility] Final Report ? [facility] ? Provider: ?? ZACK MAGANA ?Pt. Name: ?? DHEERAJ YUSUF ? Acc #: ?[id number] ?Pt. MRN: ?[id number] ? Col Date: ?? 1 ? /Sex: ?1960,(50 years),Female ? Rec Date: ?? 12/30/2010 ? LOC: ?5C ? CYTOPATHOLOGY: ??NGYN ? ---Adequacy--- ? Specimen submitted is satisfactory. ? ---Cytopathologic Diagnosis--- ? Negative for Malignancy ? 12/31/10 ?Screened by: ? FMQ ? Rescreened by: ?? ANNE,EJG ? 01/04/11 ?Verified by: ? Jamie RAMOS, Aden Grijalva ?Cytopa thologist ? (Electronic Signature) ? ---Comment--- ? Benign ? Compatible with a cruz ign follicular nodule (includes adenomatoid nodule; ? colloid nodule). ? Cytologic preservation: ?The Pap-stained slide has air-drying changes. ? Cellularity (follicular cells): ?Low to moderate. ? Colloid: ?Low to moderate quantity. ? Macrophages: ?Not conspicuous. ? Architectural pattern: ?Predominantly macrofollicular pattern (see note) . ? ---Clinical Information--- ? Specimen Source: ?Thyroid: left (US-guided FNA) ? Pertinent Clinical Data and Significant Therapy: ?Nodule. ? Clinical Impression: ? [facility] ? Provider: ?? ZACK MAGANA ?Pt. Name: ?? DHEERAJ YUSUF ? Acc #: ?[id number] ?Pt. MRN: ?[id number] ? Col Date: ?? 1 ? /Sex: ?1960,(50 years),Female ? Rec Date: ?? 12/30/2010 ? LOC: ?5C ? CYTOPATHOLOGY: ??NGYN ?Goiter. ? Pertinent Radiologic Findings: ? Size: 2.1 ? Echogenicity: (none provided) ? Cystic: No ? Calcification: No ? Vascularity: Absent/Low ? Gross Description: ?Received in Cyto rich Red, approximately 9 ml. total volume of clear, ? pink fluid. ?Total Preparation: Liquid Based Prep 1; Diff Quik 1; Pap Stain 1. Specimen (Source) Anatomical Collection Method Collection Time Re ceived Time Location / / Volume Laterality 12/30/2010 2:21 PM EDT Zack Magana MD PATHOLOGY/CYTOLOGY ORDERABLE S Performing Organization Address City/State/[place] [address] [facility] TSH (12/30/2010 11:58 AM EDT) athologist Signature TSH 2.28 0.27 - 4.20 CERNER mcIU/mL MILLENNIUM Specimen Anatomical Collection Method Collection Time Receive d Time (Source) Location / / Volume Laterality Blood specimen 12/30/2010 11:58 1 (specimen) AM EDT 12:03 PM EDT Zack Magana MD CHEMISTRY ORDERABLES Performing Organization Address City/State/[place] [address] BECKIE FLORES documented in this encounter Visit Diagnoses Diagnosis Thyroid nodule - Primary Nontoxic uninodular goiter documented in this encounter Care Teams Epic Beacon Analyst Relationship Specialty Start Date End Date Maria Fournier APRN PCP - General 07/06/10 09/09/12 documented as of this encounter
--- OUTSIDE RECORDS SUMMARY | 2022-05-27 14:57 | XMS_ITS | Encounter Summary ---
:1960 Author Organization [place] [address] Care Team Providers Name Role Phone Maria Fournier APRN Primary Care Provider Encounter Details Date Type Department Care Team Description 11/15/2010 Hospital Encounter Laboratory Farzaneh Valera [facility] MD Roselia [facility] [place] [phone] HEMATOLOGY/ONCOLOGY [phone] DEPT. [place], [place] [address] (Wo rk) Social History Tobacco Use Types Packs/Day Years Used Date Former Smoker Cigarettes 1.5 Quit: 08/14/18 93 Alcohol Use Standard Drinks/Week Comments Not Asked 0 (1 standard drink = 0.6 oz pure alcoho l) Sex Assigned at Date Recorded Not on file documented as of this encounter Medications at Time of Discharge Medication Sig Dispensed Refills Start Date End Date WARFARIN SODIUM (WARFARIN 0 10/25/2010 01/28/2015 ORAL) fluticasone (FLOVENT HFA) 2 Puff(s), Inh, 0 10/2501/22/2015 110 mcg/Actuation inhaler Twice daily Levalbuterol Tartrate 0 10/25/201006/2015 (XOPENEX HFA) 45 mcg/Actuation inhaler clobetasol (TEMOVATE) 0.05 1 Appl(s) Top Twice 0 10/25/2010 09/12/2011 % cream daily documented as of this encounter Plan of Treatment Not on filedocumented as of this encounter Procedures Procedure Name Priority Date/Time Associated Comments Diagnosis IMMUNOGLOBULINS, STAT 11/15/2010 11:29 Results for this QUANTITATIVE AM EDT procedure are i n the results section. DIFFERENTIAL, STAT 11/15/2010 11:29 Results fo r this AUTOMATED AM EDT procedure are i n the results section. IRON AND TIBC STAT 11/15/2010 11:29 Results fo r this AM EDT procedure are i n the results section. CBC (WITH DIFF) STAT 11/15/2010 11:29 Results for this AM EDT procedure are i n the results section. PROTEIN STAT 11/15/2010 11:29 Results for this ELECTROPHORESIS, SERUM AM EDT proce dure are in the results section. COMPREHENSIVE STAT 11/15/2010 11:29 Results fo r this METABOLIC PANEL AM EDT procedure ar e in (NON-FASTING) the results section. documented in this encounter Results (ABNORMAL) REFLEX LAB-A-DIFF (11/15/2010 11:29 AM EDT) [facility] gist Method Time Signature Neutrophils % 71.7 (H) 34.0 - CERNER 71.0 % MILLENNIUM Neutr Abs (ANC) 8.22 (H) 1.50 - CERNER 6.30 MILLENNIUM x10(3)/mc L Lymphocytes % 18.3 (L) 19.0 - CERNER 53.0 % MILLENNIUM Lymphocytes Abs 2.1 1.0 - 3.6 CERNER x10(3)/mc MILLENNIUM L Monocytes % 8.8 4.0 - CERNER 13.0 % MILLENNIUM Monocyte Abs 1.0 0.2 - 1.0 CERNER x10(3)/mc MILLENNIUM L Eosinophils % 0.7 0.0 - 7.0 CERNER % MILLENNIUM Eosinophils [...] Location / / Volume Laterality Blood specimen 11/15/2010 11:29 1 (specimen) AM EDT 11:50 AM EDT Farzaneh Valera MD HEMATOLOGY ORDERABLES Performing Organization Address City/[facility]/ZIP Code Phon e Number [address] CERNER MILLENNIUM (ABNORMAL) IMMUNOGLOBULINS, QUANTITATIVE (11/15/2010 11:29 AM EDT) P athologist Signature IgG 854 700 - 1600 CERNER mg/dL MILLENNIUM IgA 89 70 - 400 CERNER mg/dL MILLENNIUM IgM 287 (H) 40 - 230 CERNER mg/dL MILLENNIUM Specimen Anatomical Collection Method Collection Time Receive d Time (Source) Location / / Volume Laterality Blood specimen 11/15/2010 11:29 1 (specimen) AM EDT 11:59 AM EDT Farzaneh Valera MD CHEMISTRY ORDERABLES Performing Organization Address City/[facility]/ZIP Code Phon e Number [address] CERNER MILLENNIUM PROTEIN ELECTROPHORESIS, SERUM (11/15/2010 11:29 AM EDT) Patholo gist Method Time Signature Total Prot 7.2 6.1 - 8.0 CERNER Elec gm/dL MILLENNIUM Albumin Elect 4.62 3.60 - 6.00 CERNER gm/dL MILLENNIUM Alpha1-Globul 0.22 0.10 - 0.30 CERNER in gm/dL MILLENNIUM Alpha2-Globul 0.81 0.40 - 0.90 CERNER in gm/dL MILLENNIUM Beta Globulin 0.64 0.50 - 1.00 CERNER gm/dL MILLENNIUM Gamma 0.91 0.50 - 1.30 CERNER Globulin gm/dL MILLENNIUM M1 Band None None CERNER Detected Detected MILLENNIUM gm/dL Scan See Note CERNER MILLENNIUM Comment: Please see scanned report in Chart Ashley w under the Non-DH Laboratory Heading. Corrected from See Note on 11/15/10 16:1 9:13 EDT by Lupe Hope Specimen Anatomical Collection Method Collection Time Receive d Time (Source) Location / / Volume Laterality Blood specimen 11/15/2010 11:29 1 (specimen) AM EDT 11:59 AM EDT Narrative This result has an attachment that is no t available. Farzaneh Valera MD CHEMISTRY ORDERABLES Performing Organization Address City/State/[place] [address] CERNER MILLENNIUM (ABNORMAL) CBC (WITH DIFF) (11/15/2010 11:29 AM EDT) P athologist Signature WBC 11.5 (H) 4.0 - 10.0 CERNER x10(3)/mcL MILLENNIUM RBC 5.23 (H) 3.93 - CERNER 5.22 MILLENNIUM x10(6)/mcL Hemoglobin 14.8 11.2 - CERNER 15.7 gm/dL MILLENNIUM Hematocrit 43.1 34.0 - CERNER 45.0 % MILLENNIUM MCV 82.4 79.0 - CERNER 94.0 fL MILLENNIUM MCH 28.3 26.6 - CERNER 32.2 pg MILLENNIUM MCHC 34.3 32.0 - CERNER 36.5 gm/dL MILLENNIUM Platelets 323 145 - 370 CERNER x10(3)/mcL MILLENNIUM RDWSD 39.2 35.0 - CERNER 46.0 fL MILLENNIUM RDWCV 13.0 10.9 - CERNER 14.4 % MILLENNIUM MPV 10.1 9.0 - 12.0 CERNER fL MILLENNIUM Specimen Anatomical Collection Method Collection Time Receive d Time (Source) Location / / Volume Laterality Blood specimen 11/15/2010 11:29 1 (specimen) AM EDT 11:50 AM EDT Farzaneh Valera MD HEMATOLOGY ORDERABLES Performing Organization Address City/[facility]/ZIP Code Phon e Number [address] CERNER MILLENNIUM IRON AND TIBC (11/15/2010 11:29 AM EDT) athologist Signature Iron 112 30 - 150 CERNER mcg/dL MILLENNIUM TIBC 274 250 - 450 CERNER mcg/dL MILLENNIUM Iron Saturation 41 20 - 50 % CERNER MILLENNIUM Specimen Anatomical Collection Method Collection Time Receive d Time (Source) Location / / Volume Laterality Blood specimen 11/15/2010 11:29 1 (specimen) AM EDT 11:36 AM EDT Farzaneh Valera MD CHEMISTRY ORDERABLES Performing Organization Address City/[facility]/ZIP Code Phon e Number [address] CERNER MILLENNIUM COMPREHENSIVE METABOLIC PANEL (NON-FASTING) (11/15/2010 11:29 AM EDT) athologist Signature Glucose Lvl 100 60 - 199 CERNER mg/dL MILLENNIUM Comment: Diabetes: >=200 mg/dL plus symp toms BUN 11 8 - 18 mg/dL CERNER MILLENNIUM Creatinine 0.74 0.70 - 1.20 mg/dL CERNER MILL ENNIUM Sodium 139 135 - 145 mmol/L CERNER [...] 31 mmol/L CERNER MILLENNI UM Anion Gap 11 5 - 15 mmol/L CERNER MILLENNIU M Calcium 9.0 8.5 - 10.5 mg/dL CERNER JARETH NIUM Total Protein 7.5 6.4 - 8.3 gm/dL CERNER MIL LENNIUM Albumin 4.5 3.2 - 5.2 gm/dL BECKIE JAINENN IUM AST 16 0 - 30 unit/L BECKIE FELTONIU M ALT 14 0 - 30 unit/L BECKIE FELTONIU M Alk Phos 62 40 - 104 unit/L BECKIE JAINENN IUM Total Bilirubin 0.5 0.2 - 1.3 mg/dL BECKIE Veloz ILLENNIUM Bili, Direct 0.1 0.0 - 0.3 mg/dL BECKIE JAIN ENNIUM Estimated GFR >60 >=60 BECKIE FELTONIU M Comment: The National Kidney Disease Education Pr ogram (NKDEP) has recommended all laboratories report estimated GFR (eGFR) along with plasma creatinine measurements to assist you with recognit ion of early kidney disease. Caveats: ??Plasma creatinine should be a t steady-state (unchanged within the past week). ??Patient age > = 18 years, and for Americans multiply eGFR by 1.2. At present, NKDEP does NOT recommend usi [...] Location / / Volume Laterality Blood specimen 11/15/2010 11:29 1 (specimen) AM EDT 11:36 AM EDT Farzaneh Valera MD CHEMISTRY ORDERABLES Performing Organization Address City/State/ZIP Code Phon e Number [place], [place] [id number] [place] [address] [facility] documented in this encounter Visit Diagnoses Not on filedocumented in this encounter Care Teams Fish Bin Tender Relationship Specialty Start Date End Date Maria Fournier APRN PCP - General 07/06/10 09/09/12 documented as of this encounter
--- OUTSIDE RECORDS SUMMARY | 2022-05-27 14:57 | XMS_ITS | Encounter Summary ---
:1960 Author Organization [facility] [place] [address] Care Team Providers Name Role Phone Maria Fournier APRN Primary Care Provider Reason for Visit Reason Comments Follow-up Encounter Details Date Type Department Care Team Description 09/12/2011 Follow-Up Allergy at [facility] Raegan Del Rio, Asthma (Primary Dx) [facility] [place] [address] [facility] [phone] ALLERGY AND IMMUNOLOGY [place], [place] [address] (Wo rk) Social History Tobacco [...] Sign Reading Time Taken Comments Blood Pressure 148/77 09/12/2011 1:13 PM EST Pulse 71 09/12/2011 1:13 PM EST Temperature - - Respiratory Rate - - Oxygen Saturation - - Inhaled Oxygen Concentration - - Weight 81.6 kg (180 lb) 09/12/2011 1:13 PM EST Height 165.1 cm (5' 5) 09/12/2011 1:13 PM EST Body Mass Index 29.95 09/12/2011 1:13 PM EST documented in this encounter Patient Instructions Patient InstructionsHiRaegan plascencia MD - 09/12/2011 1:28 PM EST continue Flovent with spacer stop veramyst for 1 mo. then have nose re-looked at nasal saline daily rtc 1 yr. documented in this encounter Progress Notes Raegan Del Rio MD - 09/12/2011 1:52 PM EST Subjective: Patient ID: Francie Yusuf is a 51 y.o. female. HPI Here for f/u of asthma, non-allergic rhinitis, and chronic sinusitis. She has been doing well regarding asthma and does not require albuterol very often-continues [id number] 2 puffs bid but not with spacer. Has had some epistaxis recently ( is on coumadin ) and also uses Veramyst daily. Has not been using nasal saline rinses very often lately. She continues Claritin daily also for chronic rhinitis. Patient Active Problem List Diagnoses Code ??? 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 Asthma 493.90AE ??? Sinusitis, chronic 473.9AG ??? Antiphospholipid antibody syndrome 289.81DA ??? Edema of both legs 782.3BX ??? Miscarriage 634.90H ??? Thyroid nodule 241.0B ??? Amyloidosis 277.30B ??? 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 loratadine (CLARITIN) 10 mg tablet Take 10 mg by mouth daily. ??? acetaminophen (TYLENOL EXTRA STRENGTH) 500 mg tablet Take by mouth as needed. Take 1-2 tabs of the (500mg) Tablets ??? multivitamin (THERAGRAN) tablet Take 1 tablet by mouth daily. ??? DISCONTD: fluticasone (VERAMYST) 27.5 mcg/Actuation nasal spray 2 sprays by Nasal route daily. ??? WARFARIN SODIUM (WARFARIN ORAL) ??? fluticasone (FLOVENT HFA) 110 mcg/Actuation inhaler 2 Puff(s), Inh, Twice daily ??? Levalbuterol Tartrate (XOPENEX HFA) 45 mcg/Actuation inhaler ??? clobetasol (TEMOVATE) 0.05 % cream 1 Appl(s) Top Twice daily Review of Systems HENT: Positive for nosebleeds and congestion. Respiratory: Negative. Objective: Physical Exam Constitutional: She appears well-nourished. HENT: Right Ear: External ear normal. Left Ear: External ear normal. Mouth/Throat: Oropharynx is clear and moist. excoriated area on right nasal septum Pulmonary/Chest: Breath sounds normal. Skin: No rash noted. Psychiatric: She has a normal mood and affect. FEV1 86% WNL Assessment and Plan: 1. Asthma.stable on Flovent 110 2 puffs bid -pt was given Vortex to use with MDIs 2. Chronic non-allergic rhinitis,h/o sinusitis - use nasal saline rinses daily -Stop using Veramyst for 4 weeks because of septal irritation -have nasal exam before resuming use of Veramyst. Aim spray away from septum in future. RTC 1 yr. 10 min of 15 min visit spent in counseling on treatment of the above diagnoses documented in this encounter Plan of Treatment Not on filedocumented as of this encounter Visit Diagnoses Diagnosis Asthma - Primary Unspecified asthma documented in this encounter Care Teams Manager Water Relationship Specialty Start Date End Date Maria Fournier APRN PCP - General 07/06/10 09/09/12 documented as of this encounter
--- OUTSIDE RECORDS SUMMARY | 2022-05-27 14:57 | XMS_ITS | Encounter Summary ---
:1960 Author Organization [facility] Address [address] [place] [address] Care Team Providers Name Role Phone ShantanuMaria monsalve EDUARDO Primary Care Provider Reason for Visit Reason Comments Follow-up Encounter Details Date Type Department Care Team Description 09/12/2011 Follow-Up Hematology and [place], Amyloid disea se Oncology at [facility] MD Vasiliy (Primary Dx) [facility] [place] [address] HEMATOLOGY/ONCOLOGY [phone] [address] [place], [place] [address] (Wo rk) Social History [...] Sign Reading Time Taken Comments Blood Pressure 140/82 09/12/2011 2:01 PM EST Pulse - - Temperature - - Respiratory Rate - - Oxygen Saturation - - Inhaled Oxygen Concentration - - Weight 84.6 kg (186 lb 8.2 oz) 09/12/2011 2:01 PM EST Height - - Body Mass Index 31.04 09/12/2011 1:13 PM EST documented in this encounter Progress Notes Vasiliy He MD - 09/12/2011 2:40 PM [place] [address] FOLLOW-UP PATIENT EVALUATION PROBLEM LIST: Patient Active Problem List Diagnoses Code ??? 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 Asthma 493.90AE ??? Sinusitis, chronic 473.9AG ??? Antiphospholipid antibody syndrome 289.81DA ??? Edema of both legs 782.3BX ??? Miscarriage 634.90H ??? Thyroid nodule 241.0B ??? Amyloidosis 277.30B ??? 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 Hypertension. 2. Antiphospholipid syndrome. [...] to date w/ neg ECHO at [facility]. CT w/ one para-aortic 2cm LN which we will follow. Neg SPEP and 24 hour urine at [facility]. Neg fat pad biopsy. BMBx not yet completed. a. repeat CT, February 2010, with no pathologically enlarged adenopathy. Bone marrow biopsy negative for amyloid and lymphoma. INTERIM HISTORY OF PRESENT ILLNESS: It was my pleasure to see Francie Yusuf back in clinic today. Francie Yusuf is a 51 y.o. 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 Only problem has been edema below kneein ankle and feet. Previous w/u was neg for 24 hour urine and ECHO which was normal. SFLC were normal. She had thyroid biopsies that were benign. Followed by Dr. Magana. Since that time has noted numbness in face and discomfort in sinus and ears. 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 She is self conscious of these and wishes there was effected treatment for this condition. Feels good, denies systemic symptoms. ROS Energy level:stable Pain: No Appetite:good Fevers/chills/sweats:No Bruising/bleeding/melena:No Recent infections:No HEENT: see above Nausea/vomiting/diarrhea/constipation:No SOB/NOBLE/chest pain:No Change in adenopathy or other masses:No Unexpected weight loss or gain:No Skin rashes or petechiae: see above Musculoskeletal complaints:No Extremities:edema of bilateral ankles. Denies bone pain Neurologic symptoms:No Mood: Normal Sleep: noifficulty sleeping Current outpatient prescriptions ordered prior to encounter Medication Sig Dispense Refill ??? simvastatin (ZOCOR) 20 mg tablet Take 20 mg by mouth nightly. ??? clobetasol (TEMOVATE) 0.05 % cream Apply 1 applicator topically 2 times daily. 30 g 2 ??? loratadine (CLARITIN) 10 mg tablet Take [...] Levalbuterol Tartrate (XOPENEX HFA) 45 mcg/Actuation inhaler Allergies: No Known Allergies INTERIM SOCIAL HISTORY Changes in job, home situation, tobacco or alcohol use: see HPI PHYSICAL EXAM BP 140/82 Wt 84.6 kg (186 lb 8.2 oz) There is no height on file to calculate BSA. GENERAL: Francie Yusuf appears well and is in no acute distress. ENT: Oral pharynx clear. No macroglossia EYES: PERRLA NECK: Supple without adenopathy. AXILLARY: no adenopathy OTHER LYMPH: no adenopathy CARDIAC: Regular rate and rhythm without S3,S4 or murmurs. LUNGS: Clear to auscultation./percussion ABDOMEN: Soft and non-tender without hepatosplenomegaly or masses. EXTREMITIES: No cyanosis, clubbing, edema or calf tenderness. SKIN: Large 2.5cm medial raised lesion on R leg. On small lesion on R lege and 3 small 1cm lesions on L leg. Trace foot and ankle edema. NEUROLOGICAL: Alert and oriented to person, place and time. MUSCULOSKELETAL: No spinal or chest wall tenderness. LABORATORY STUDIES No labs today RADIOLOGY STUDIES REVIEWED: None ASSESSMENT/PLAN: Cutanous amyloid - Today we spent the visit providing reassurance. She asked many questions about new therapies. We didliterature searches during the visit and found on case of cutaneous amyloid treated with laser therapy, however, the outcome was not dramatic. We discussed that this is a abnormal protein deposit, and no therapy is effect to remove the protein. I will order labs next visit to continue ongoing screening for underlying cause of amyloidosis. RTC in [address] Valera/Devonte Time 20 min Time counseling 15min Copy MARIA GARCÍA APRN documented in this encounter Plan of Treatment Not on filedocumented as of this encounter Visit Diagnoses Diagnosis Amyloid disease - Primary Amyloidosis, unspecified documented in this encounter Care Teams Metallographer Relationship Specialty Start Date End Date Maria García APRN PCP - General 07/06/10 09/09/12 documented as of this encounter
--- OUTSIDE RECORDS SUMMARY | 2022-05-27 14:57 | XMS_ITS | Encounter Summary ---
:1960 Author Organization [facility] Address [facility] [place] [address] Care Team Providers Name Role Phone ShantanuMaria singer EDUARDO Primary Care Provider Reason for Visit Reason Onset Date Comments Other 01/05/2011 returning patient ca ll Encounter Details Date Type Department Care Team Description 01/05/2011 Telephone Endocrinology at [facility] Zack Castro, Other (returning [facility] Marquis kingsley MD patient call) [place] [address] [address] [address] [phone] [place], [place] [address] (Wo rk) Social History Tobacco Use Types Packs/Day Years Used Date Former Smoker Cigarettes 1.5 Quit: 08/14/18 93 Alcohol Use Standard Drinks/Week Comments Not Asked 0 (1 standard drink = 0.6 oz pure alcoho l) Sex Assigned at Date Recorded Not on file documented as of this encounter Miscellaneous Notes Telephone Encounter - Nellie Martin LPN - 01/05/2011 9:36 AM EDT returning patient call from 11:39 am on 01/04/11 regarding FNA and lab results. No answer left message on cell voice mail that there is a letter going out to her dated 01/04/[address] Magana. She can return my call if she would like at which time I will read to her the letter or she will be receiving the letter in a few days. documented in this encounter Plan of Treatment Not on filedocumented as of this encounter Visit Diagnoses Not on filedocumented in this encounter Care Teams Teacher Kindergarten Relationship Specialty Start Date End Date Maria Fournier APRN PCP - General 07/06/10 09/09/12 documented as of this encounter
--- OUTSIDE RECORDS SUMMARY | 2022-05-27 14:57 | XMS_ITS | Encounter Summary ---
:1960 Author Organization [facility] Address [facility] [place] [address] Care Team Providers Name Role Phone Maria Fournier APRN Primary Care Provider Reason for Visit Reason Comments Follow-up Encounter Details Date Type Department Care Team Description 09/12/2011 Office Visit Hematology and Kelsey Whitney MD Dermatitis (Primary Oncology at [facility] Dx) [facility] [address] [place] RD-DERMATOLOGY [address] [place] [address] [phone] Social History Tobacco Use Types Packs/Day Years [...] Time Taken Comments Blood Pressure 140/82 09/12/2011 1:57 PM EST Pulse - - Temperature - - Respiratory Rate - - Oxygen Saturation - - Inhaled Oxygen Concentration - - Weight 84.6 kg (186 lb 8.2 oz) 09/12/2011 1:57 PM EST Height - - Body Mass Index 31.04 09/12/2011 1:13 PM EST documented in this encounter Progress Notes Kelsey Whitney MD - 09/12/2011 1:33 PM EST DERMATOLOGY - ESTABLISHED PATIENT FOLLOW-UP Francie Yusuf Date of service: 09/12/2011 : 1960 Physician: Kelsey Whitney MD Prior Skin History: Derm Hx: Nodular amyloid -rx 5mg/cc kenalog injection IL 01/2011 Itchy rash in setting of antiphospholipid syndrome & nodular amyloidosis, hypocomplementemia -multiple topical steroids -antihistamine not helpful -resolved spontaneously Antiphospholipid antibody syndrome PROBLEM LIST: 1. Hypertension. 2. Antiphospholipid syndrome. [...] W/U to date w/ neg ECHO at [facility]. CT w/ one para-aortic 2cm LN which we will follow. Neg SPEP and 24 hour urine at [facility]. Neg fat pad biopsy. BMBx not yet completed. a. repeat CT, February 2010, with no pathologically enlarged adenopathy. Bone marrow biopsy negative for amyloid and lymphoma.. Chief Problem: No chief complaint on file. Ms. Francie Yusuf is a 51 y.o. female. 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 She thinks she has a couple new lesions. She has been healthy. Not getting frequent colds. Did have a flare recently of an itchy rash on the left upper thigh; no longer has topical steroid for this. That had resolved for months. Medical History: Patient Active Problem List Diagnoses [...] Take 1 tablet by mouth daily. ??? fluticasone (VERAMYST) 27.5 mcg/Actuation nasal spray 2 sprays by Nasal route daily. ??? WARFARIN SODIUM (WARFARIN ORAL) ??? fluticasone (FLOVENT HFA) 110 mcg/Actuation inhaler 2 Puff(s), Inh, Twice daily ??? Levalbuterol Tartrate (XOPENEX HFA) 45 mcg/Actuation inhaler ??? clobetasol (TEMOVATE) 0.05 % cream 1 Appl(s) Top Twice daily Allergies: No Known Allergies Family History: Social History: Review of Systems: - General: Feels well. - Skin: As per HPI; no other skin concerns. Examination: - Constitutional: Patient was alert, well-appearing and [...] Genitalia were not examined. Specific skin findings: 1. Right medial lower leg nodule about 4cm medial, one on anterior denson right about 1cm 2. Left anterior denson two nodules about 1cm each No cervical, axillary or inguinal adenopathy Several grouped papules And erythema on the left upper thigh in area about 4cm. 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 She did not have much effect with IL steroid. XRT was considered but due to lack of case reports radiation therapy did not recommend it. I do not advise surgery given the leg location and high risk for infection, dehisence, poor healing. I do not have other treatment at this time to offer. 2. Dermatitis- left upper thigh. Unknown trigger, similar to what she has had in the past. Recommendations: I discussed treating with 2 weeks of clobetasol , apply bid. May repeat after 2 weeks off if rash recurs. Prescriptions: clobetasol. RTC in 6 months. Instructed to call for questions/concerns. She was also seen today with Dr. He. > 1/2 of this 30 minute visit spent in counselling and discussion. Kelsey Whitney MD Section of Dermatology [facility] documented in this encounter Plan of Treatment Not on filedocumented as of this encounter Visit Diagnoses Diagnosis Dermatitis - Primary Contact dermatitis and other eczema, due to unspecified cause documented in this encounter Care Teams Surveillance Sensor Operator Relationship Specialty Start Date End Date Maria Fournier APRN PCP - General 07/06/10 09/09/12 documented as of this encounter
--- OUTSIDE RECORDS SUMMARY | 2022-05-27 14:57 | XMS_ITS | Encounter Summary ---
:1960 Author Organization [facility] [place] [address] Care Team Providers Name Role Phone Maria Fournier EDUARDO Primary Care Provider Encounter Details Date Type Department Care Team Description 11/15/2010 Hospital Encounter Hematology and Farzaneh Valera Oncology at [facility] MD Roselia [facility] ENTER Becky HEMATOLOGY/[place] [address] DEPT. [phone] [place], [place] [address] (Wo rk) Social History Tobacco [...] on filedocumented in this encounter Care Teams Sap Bobj Developer Relationship Specialty Start Date End Date Maria Fournier APRN PCP - General 07/06/10 09/09/12 documented as of this encounter
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
--- OUTSIDE RECORDS SUMMARY | 2022-05-27 14:57 | XMS_ITS | Encounter Summary ---
:1960 Author Organization [facility] [place] [address] Care Team Providers Name Role Phone Maria Fournier APRN Primary Care Provider Encounter Details Date Type Department Care Team Description 09/13/2011 Orders Only Hematology Oncology Farzaneh Valera myloidosis (Primary at [facility] MD Roselia Dx) [address] [place] [id number] HEMATOLOGY/ONCOLOGY [phone] DEPT. [place], [place] [address] (Wo rk) Social History Tobacco [...] this encounter Results Free Light Chains, Serum (03/12/2012 1:37 PM EDT) athologist Signature [place] Free 1.54 0.33 - CERNER Light Chains 1.94 mg/dL MILLENNIUM Comment: Please note that the performing location for this test has changed. ??As of 04/29/2011 Serum Immunoglobulin Free Lig ht Chains are being analyzed by the [facility] Chemistry Laboratory. ??There is NO CHANGE in units or reference intervals. Please contact the chemistry laboratory at [phone] with questions. Lambda Free Light Chains 1.65 0.57 - 2.63 mg/dL CERNER MILLENNIUM Comment: Please note that the performing location for this test has changed. ??As of 04/29/2011 Serum Immunoglobulin Free Lig ht Chains are being analyzed by the [facility] Chemistry Laboratory. ??There is NO CHANGE in units or reference intervals. Please contact the chemistry laboratory at [phone] with questions. [place]/Lambda Free Light Chain Ratio 0.9333 0.2600 - 1.6500 CERNER MILLENNIUM Comment: Please note that the performing location for this test has changed. ??As of 04/29/2011 Serum Immunoglobulin Free Lig ht Chains are being analyzed by the [facility] Chemistry Laboratory. ??There is NO CHANGE in units or reference intervals. Please contact the chemistry laboratory at [phone] with questions. Specimen Anatomical Collection Method Collection Time Receive d Time (Source) Location / / Volume Laterality Blood specimen 03/12/2012 1:37 PM 012 1:48 (specimen) EDT PM EDT Resulting Agency Comment Spec In Lab Farzaneh Valera MD CHEMISTRY ORDERABLES Performing Organization Address City/State/ZIP Code Phon e Number [place] [phone] CERNER MILLENNIUM (ABNORMAL) Immunoglobulins, Quantitative (03/12/2012 1:37 PM EDT) athologist Signature IgG 822 700 - 1600 [...] Valera MD CHEMISTRY ORDERABLES Performing Organization Address City/[facility]/ZIP Code Phon e Number [address] CERNER MILLENNIUM Protein Electrophoresis, [...] Valera MD CHEMISTRY ORDERABLES Performing Organization Address [facility]/ZIP Code Phon e Number [address] CERNER MILLENNIUM (ABNORMAL) Comprehensive [...] supplied above were not validated at [facility]. Results from pediatri c patients should be [...] disease. References: http://nkdep.nih.gov/resources/NKDEP_Sug gestn4Labs_0606_508.pdf http://www.kidney.org/professionals/kls/ pdf/faq_gfr.pdf Veda K, Erick NA, Charles AK, Momo TS, Mainor [...] Organization Address City/State/[place] [address] CERNER MILLENNIUM CBC (with [...] MCHC 34.5 32.0 - 36.5 CERNER gm/dL ENNIUM Platelets 258 145 - 370 CERNER x10(3)/mcL MILLENNIUM RDWSD 41.4 35.0 - 46.0 CERNER fL MILLENNIUM RDWCV 14.0 10.9 - 14.4 CERNER % MILLENNIUM MPV 9.4 9.0 - 12.0 CERNER fL [facility] Specimen Anatomical Collection Method Collection Time Receive d Time (Source) Location / / Volume Laterality Blood specimen 03/12/2012 1:37 PM 012 1:48 (specimen) EDT PM EDT Resulting Agency Comment Spec In Lab Farzaneh Valera MD HEMATOLOGY ORDERABLES Performing Organization Address City/State/[place] [address] [facility] documented in this encounter Visit Diagnoses Diagnosis Amyloidosis - Primary Amyloidosis, unspecified documented in this encounter Care Teams Sound Recordist Relationship Specialty Start Date End Date Maria Fournier APRN PCP - General 07/06/10 09/09/12 documented as of this encounter
--- OUTSIDE RECORDS SUMMARY | 2022-05-27 14:57 | XMS_ITS | Encounter Summary ---
:1960 Author Organization [facility] [place] [address] Care Team Providers Name Role Phone Maria Fournier APRN Primary Care Provider Encounter Details Date Type Department Care Team Description 11/15/[address] Scan at [facility], DR [facility] Farzaneh Valera MD [facility] DR HEMATOLOGY/[place] [address] [place] [phone] Social History Tobacco Use Types Packs/Day [...] Date Dose Rate Site iohexol (OMNIPAQUE) 350 mg/mL Given 11/15/2010 1:30 PM EDT 17,50 0 mg injection 17,500 mg 17,500 mg (50 mL), Oral, ONCE PRN, 1 dose, Starting on Mon11/15/10 at 1130, Until Mon11/15/10 at 1330, Per Protocol, Routine iohexol (OMNIPAQUE) 350 mg/mL injection Given 11/15/2010 1:40 PM EDT 38,500 mg 38,500 mg 38,500 mg (110 mL), Intravenous, ONCE PRN, 1 dose, Starting on Mon11/15/10 at 1330, Until Mon11/15/10 at 1340, Per Protocol, Routine documented in this encounter Care Teams Barrel Charrer Relationship Specialty Start Date End Date Maria Fournier APRN PCP - General 07/06/10 09/09/12 documented as of this encounter
--- OUTSIDE RECORDS SUMMARY | 2022-05-27 14:57 | XMS_ITS | Encounter Summary ---
:1960 Author Organization [facility] Address [facility] [address] Care Team Providers Name Role Phone Maria Fournier APRN Primary Care Provider Reason for Visit Reason Onset Date Comments Other 09/29/2011 question about a derrick t Encounter Details Date Type Department Care Team Description 09/29/2011 Telephone Orthopaedics at [facility] Ebonie Alfaro, RN Other (question about a [facility] D rive test) [place] [address] Social History Tobacco Use Types Packs/Day [...] this encounter Miscellaneous Notes Telephone Encounter - Ebonie Alfaro, RN - 09/29/2011 2:14 PM EST Francie Yusuf was seen by Radha Cook on 2008. Patient just found a letter today when cleaningfiles and felt that she never had a follow up for the test result listed below. Below is part of thenote from Radha Cook. Patient was seen on 09/14/[address] Lowe in the Rheumatology clinic perrecommendation of Radha., patient has also had many follow up visit in the Rheumatology clinic. Pt encouraged to call the rheumatology clinic with any question. Francie was agreeable to this plan and will call with any other questions. It was a pleasure meeting with you in the Orthopedic Clinic back on 07/14/2009. We now have the results of the blood work we sent away to rule out rheumatoid disease. Unfortunately, both your YELENA titer and rheumatoid factor screen are positive. Because of this result, we will set up a referral for you to be seen in Rheumatology. Radha SCHWARZ. documented in this encounter Plan of Treatment Not on filedocumented as of this encounter Visit Diagnoses Not on filedocumented in this encounter Care Teams Extruding Machine Operator Relationship Specialty Start Date End Date Maria Fournier APRN PCP - General 07/06/10 09/09/12 documented as of this encounter
--- OUTSIDE RECORDS SUMMARY | 2022-05-27 14:57 | XMS_ITS | Encounter Summary ---
:1960 Author Organization [facility] [place] [address] Care Team Providers Name Role Phone Maria Fournier APRN Primary Care Provider Encounter Details Date Type Department Care Team Description 11/15/2010 Orders Only Hematology and Oncology at [facility], Ros Veloz [facility] [place] [phone] HEMATOLOGY/ONCOLOGY [phone] DEPT. [place], [place] [address] (Wo rk) Social History Tobacco [...] Diagnosis Comme nts CT CHEST ABDOMEN Routine 11/15/2010 1:45 PM Resul ts for this PELVIS W CONTRAST EDT procedure are in (GENERIC) the results section. documented in this encounter Results CT CHEST, ABDOMEN, & PELVIS WITH CONTRAST (11/15/2010 1:45 PM EDT) Anatomical Region Laterality Modality Computed Tomography Specimen (Source) Anatomical Collection Method Collection Time Re ceived Time Location / / Volume Laterality 11/15/2010 1:45 PM EDT Impressions 11/16/2010 7:21 AM EDT IMPRESSION: ?? 1. ??Stable exam. 2. ??Stable thyroid nodules, which are b manoj evaluated on the thyroid ultrasound from earlier in the day. ??Pl ease refer to this report. ?? Film and interpretation reviewed by the attending Narrative 11/16/2010 7:[address] OF THE CHEST, ABDOMEN, AND PELVIS WIT H CONTRAST, NOVEMBER 15, 2010: INDICATION: ??Followup adenopathy, thyro id cyst seen on previous CT. COMPARISON: ??CT chest, abdomen, and pel vis February 24, 2010 and January 07, 2010. TECHNIQUE: Helical images were acquired of the chest, abdomen, and pelvis after the administration of Omnipaque-350, 110 mL, intravenously. ??Sagittal and coronal reformats were performed. FINDINGS: CHEST: ??The overall appearance of the c hest is unchanged. ??The 2 cm left thyroid nodule is similar in appearance to the prior and better demonstrated on the ultrasound from earlier in the day. ??There is a stable 3 mm right upper lobe pulmonary nodule seen on series #3, image #21. ??Additionally, a small pleural-based pulmonary nodule within th e right upper lobe is unchanged. ??No new pulmonary nodules or pulmonary opaci ties. ??No pleural or pericardial effusion. ??No mediastinal, axillary, or hilar lymphadenopathy. ABDOMEN: ??Multiple small retroperitonea l lymph nodes present, none of which are pathologically enlarged. ??The largest o f these is a left paraaortic lymph node seen on series #2, image #81, measuring 8 mm in short axis, which is unchanged from prior. ??Within the liver, multiple too small to characterize hypodensities are present. ??The largest of these are unchanged. ??The spleen, kidneys, adrenal glands, pancreas and gallbladder are nor mal. PELVIS: ??No free air or free fluid. ??D iverticulosis is present without diverticulitis. ??Otherwise, the bowel i s normal in course and caliber. ??The bladder is moderately distended and norm al in contour. ??The uterus is absent. ?? The previously identified right ovarian cyst is smaller on today's exam. ??No suspicious osseous lesion. Procedure Note Edwina Chavez MD - 11/16/2010 CT OF THE CHEST, ABDOMEN, AND PELVIS WIT H CONTRAST, NOVEMBER 15, 2010: INDICATION: Followup adenopathy, thyroid cyst seen on previous CT. COMPARISON: CT chest, abdomen, and pelvi s February 24, 2010 and January 07, 2010. TECHNIQUE: Helical images were acquired of the chest, abdomen, and pelvis after the administration of Omnipaque-350, 110 mL, intravenously. Sagittal and coronal reformats were performed. FINDINGS: CHEST: The overall appearance of the mick st is unchanged. The 2 cm left thyroid nodule is similar in appearance to the prior and better demonstrated on the ultrasound from earlier in the day. There is a stable 3 mm right upper lobe pulmonary nodule seen on series #3, image #21. Additionally, a small pleural-based pulmonary nodule within th e right upper lobe is unchanged. No new pulmonary nodules or pulmonary opaci ties. No pleural or pericardial effusion. No mediastinal, axillary, or h ilar lymphadenopathy. ABDOMEN: Multiple small retroperitoneal lymph nodes present, none of which are pathologically enlarged. The largest of these is a left paraaortic lymph node seen on series #2, image #81, measuring 8 mm in short axis, which is unchanged from prior. Within the liver, multiple t oo small to characterize hypodensities are present. The largest of these are un changed. The spleen, kidneys, adrenal glands, pancreas and gallbladder are nor mal. PELVIS: No free air or free fluid. Diver ticulosis is present without diverticulitis. Otherwise, the bowel is normal in course and caliber. The bladder is moderately distended and norm al in contour. The uterus is absent. The previously identified right ovarian cyst is smaller on today's exam. No suspicious osseous lesion. IMPRESSION IMPRESSION: 1. Stable exam. 2. Stable thyroid nodules, which are bet ter evaluated on the thyroid ultrasound from earlier in the day. Plea se refer to this report. 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
== END ==
PROVIDERS: PCP Family Medicine; Visit Provider Physician Assistant Medical
DX: K57.30 Diverticulosis of large intestine without perforation or abscess without bleeding (principal)
CPT/HCPCS: 74177

== ENCOUNTER → 2022-07-04 01:36 | Outpatient (CLI) | payer MEDICAID, SELFPAY ==
--- NOTE | 2022-07-04 | DI.MAMMO_ITS ---
Exam(s) MAMMO SCREENING EXAM: MAMMO SCREENING CLINICAL HISTORY: SCREENING MAMMO FOR BREAST CANCER Z12.39 TECHNIQUE: Mammograms were interpreted according to the usual protocol including computer analysis w [employer] CAD system, tomosynthesis and C-view imaging. COMPARISON: 2011 through 2019 FINDINGS: The breasts are composed of scattered fibroglandular densities, Breast Density category B. No suspicious masses or suspicious microcalcifications are seen. No skin thickening or abnormal axillary lymph nodes are seen. There has been no significant change from prior exams. IMPRESSION: BI-RADS Category 1, Negative mammogram Yearly screening mammography is recommended. Breast Density - Category B, scattered fibroglandular densities. A negative radiographic report should not delay biopsy if a dominant or clinically suspicious mass is present. Up to ten percent of cancers are not identified on mammography. A negative report may reinforce clinical impression. Adenosis and dense breasts may obscure an underlying neoplasm. False positive reports average 6 to 10%. Patient will receive a letter notifying them of these results.
== END ==
PROVIDERS: PCP Family Medicine; Visit Provider Family Medicine
DX: Z12.31 Encounter for screening mammogram for malignant neoplasm of breast (principal)
CPT/HCPCS: 77063; 77067

== ENCOUNTER 2022-11-17 11:46 | Outpatient (CLI) | payer MEDICARE, MEDICAID, SELFPAY ==
--- NOTE | 2022-11-17 12:02 | DI.RAD_ITS ---
Exam(s) XR KNEE RT 3V AP,LAT,CLAUDIA EXAM: XR KNEE RT 3V AP,LAT,CLAUDIA CLINICAL HISTORY: RIGHT KNEE PAIN. TECHNIQUE: 2D digital imaging was performed. COMPARISON: CR XR KNEE RT 2V AP,LAT from 07/16/2021 FINDINGS: 3 views Satisfactory position alignment of the components of the prosthesis. No fracture nor loosening evide nt. IMPRESSION: Stable satisfactory appearance. DATA REPOSITORY: RADIATION DOSE DELIVERED:
== END 2022-11-17 11:47 | disposition home or self-care (01) ==
LOC: DIORS 11:46
PROVIDERS: PCP Family Medicine; Referring Provider Family Medicine; Visit Provider Student in an Organized Health Care Education/Training Program
DX: Z96.651 Presence of right artificial knee joint (principal); W10.9XXA Fall (on) (from) unspecified stairs and steps, initial encounter; S80.01XA Contusion of right knee, initial encounter
CPT/HCPCS: 73562; 99213

== ENCOUNTER 2023-03-14 15:36 | Outpatient (REF) | payer MEDICARE, MEDICAID, SELFPAY ==
[2023-03-14 16:37] LABS: ALT 22 U/L (14-59); AST 21 U/L (15-37); Albumin 3.9 g/dL (3.4-5.0); Alkaline Phosphatase 95 U/L (46-116); Anion Gap 10.3 mmol/L (3-11); BUN 15 mg/dL (7-18); Bilirubin, Total 0.5 mg/dL (0.2-1.0); C-Reactive Protein 0.62 mg/dL (0.0-0.3); CO2 27.7 mmol/L (21.0-32.0); CREATININE 0.9 mg/dL (0.55-1.02); Calcium 8.3 mg/dL (8.5-10.1); Chloride 102 mmol/L (98-107); Estimated GFR 72.73 (mL/min/1.73m2); Glucose 101 mg/dL (74-106); Potassium 3.8 mmol/L (3.5-5.1); Sodium 140 mmol/L (136-145); TSH (W/Ref FT4) 14.13 uIU/mL (0.36-3.74); Total Protein 6.5 g/dL (6.4-8.2)
[2023-03-14 16:56] LABS: FREE T4 0.98 ng/dL (0.76-1.46)
== END 2023-03-14 15:37 | disposition home or self-care (01) ==
LOC: NCHCN 15:36
PROVIDERS: PCP Family Medicine; Visit Provider Family Medicine
DX: E89.0 Postprocedural hypothyroidism (principal); G62.9 Polyneuropathy, unspecified; E83.51 Hypocalcemia; R79.82 Elevated C-reactive protein (CRP)
CPT/HCPCS: 80053; 84439; 84443; 86140

== ENCOUNTER 2023-04-13 03:41 | Outpatient (CLI) | payer MEDICARE, MEDICAID, SELFPAY ==
[2023-04-13] MEDS: Albuterol HFA 18 GM 200 PUFF INH IH (14:27)
[2023-04-13] MEDS: Inhaler, Assist Device 1 EACH MC (14:28)
--- NOTE | 2023-04-14 15:47 | W.PFT ---
Date of service: 04/13/23 Time of Service: 12:51 Pulmonary Function Test Result Indications: Centromere antibody positive Interpretation Spirometry: No airflow limitation. Low FVC. No significant bronchodilator response. Lung Volumes: Normal lung volumes. Diffusion Capacity: Normal diffusion. Airway Pressure: Normal airways resistance. Impression Normal pulmonary function. Low FVC likely pseudo-restriction from obesity. Clinical Correlation therefore is recommended.
== END 2023-04-13 03:42 | disposition home or self-care (01) ==
LOC: RT 03:41
PROVIDERS: PCP Family Medicine; Visit Provider Student in an Organized Health Care Education/Training Program
DX: R76.0 Raised antibody titer (principal)
CPT/HCPCS: 94060; 94726; 94729

== ENCOUNTER → 2023-04-20 03:41 | Outpatient (CLI) | payer MEDICARE, MEDICAID, SELFPAY ==
--- NOTE | 2023-04-20 08:31 | DI.CT_ITS ---
Exam(s) CT CHEST WO EXAM: CT CHEST WO CLINICAL HISTORY: INTERSTITAL LUNG DISEASE,CENTROMERE ANTIBODY POSITIVE,R76.8. TECHNIQUE: Multi planar reconstructions were performed. CONTRAST MATERIAL: None COMPARISON: CT CHEST ABD PELVIS WITH CONTRAST from 01/07/2010 CR XR CHEST 2V PA LATERAL from 02/01/[address] ABDOMEN PELVIS W from 05/27/2022 FINDINGS: CHEST: LUNGS: There are multifocal bilateral small areas of subpleural infiltrate which were not evident on the prior chest CT scan of 2009. Also slightly increased when compared to the uppermost images of ab dominal CT scan performed 05/27/2022. There is also an area of nodular infiltrate in the lateral bas al segment of the left lower lobe measuring 1.8 x 1.0 cm which was not evident on 05/27/2022. No ass ociated pleural effusions. No focal findings evident in the trachea and mainstem bronchi. MEDIASTINUM: No obvious hilar adenopathy evident on this non few study. Slightly enlarged subcarinal lymph nodes are noted. CARDIAC: Heart size is normal. There is no pericardial effusion.Caliber of the thoracic aorta is wit hin normal limits. VISUALIZED UPPER ABDOMEN:Multiple small cysts in the liver again noted. OSSEOUS: No significant osseous lesions.No fractures. IMPRESSION: 1. There are multifocal bilateral small areas of subpleural infiltrate which were not evident on prio r chest CT scan of 2009 and have further increased when compared to the uppermost images of abdominal CT scan of May 2022. There is also an 18 x 10 mm nodular infiltrate in the left lower lobe whic h was not evident in May 2022. No pleural effusions. 2. Close follow-up recommended including repeat CT scan in 6 months, earlier if clinically indicated. RADIATION DOSE DELIVERED: 586.83mGy.cm Total DLP DATA REPOSITORY: All CT scans at this facility are submitted to the National Radiology Data Registry (NRDR) Dose Index Registry (DIR) with the [employer] (ACR). RADIATION OPTIMIZATION: All CT scans at this facility use at least one of these dose optimization te chniques: automated exposure control; mA and/or kV adjustment per patient size (includes targeted exa ms where dose is matched to clinical indication); or iterative reconstruction.
== END ==
PROVIDERS: PCP Family Medicine; Visit Provider Student in an Organized Health Care Education/Training Program
DX: R91.8 Other nonspecific abnormal finding of lung field (principal)
CPT/HCPCS: 71250

== ENCOUNTER 2023-06-04 14:20 | Emergency (ER) | payer MEDICARE, MEDICAID, SELFPAY ==
[2023-06-04 14:25] VITALS: BP 160/84; PULSE 70; RESP 18; TEMP 36.6; O2SAT 98
[2023-06-04 14:30] VITALS: BP 142/72
--- NOTE | 2023-06-04 14:30 | RT.EKG_ITS ---
APPROVED REPORT Exam: Resting ECG Reason for Exam: dizziness Patient Location: E HR:63 bpm ECG Measurements Heart Rate 63 AXIS ND 158 P 27 QRSd 117 QRS -22 QT 479 T -25 QTc 490 Conclusion Sinus rhythm...normal P axis, V-rate 60- 99 Probable left ventricular hypertrophy...(RaVL+SV3)xQRSd >300 Inferior infarct, old...Q >35mS, II III aVF No change vs 08/01
[2023-06-04 15:49] LABS: HCT 41.8 % (36.0-46.0); HGB 14.2 g/dL (11.2-15.7); MCH 27.5 pg (27.0-33.0); MCV 81 fL (80-95); MPV 9.1 fL (8.0-11.0); Platelet Count 247 10^3/uL (130-400); RBC 5.17 10^6/uL (3.93-5.22); RDW 13.2 % (11.7-14.6); RDW-SD 38.6 fL; WBC 7.68 10^3/uL (4.4-10.8)
[2023-06-04 16:00] VITALS: BP 148/63; PULSE 59; RESP 16; O2SAT 96
[2023-06-04 16:07] LABS: ALT 20 U/L (14-59); AST 21 U/L (15-37); Albumin 3.8 g/dL (3.4-5.0); Alkaline Phosphatase 96 U/L (46-116); Anion Gap 8.1 mmol/L (3-11); BUN 12 mg/dL (7-18); Bilirubin, Total 0.4 mg/dL (0.2-1.0); CO2 30.9 mmol/L (21.0-32.0); CREATININE 0.9 mg/dL (0.55-1.02); Calcium 8.4 mg/dL (8.5-10.1); Chloride 100 mmol/L (98-107); Estimated GFR 72.73 (mL/min/1.73m2); Glucose 101 mg/dL (74-106); Potassium 3.1 mmol/L (3.5-5.1); Sodium 139 mmol/L (136-145); Total Protein 7.2 g/dL (6.4-8.2); Troponin I < 50 ng/L (<or=60)
[2023-06-04] MEDS: Normal Saline 1,000 ML 1000 ML IV (16:08)
[2023-06-04 16:15] VITALS: BP 155/57; PULSE 57; RESP 16
--- NOTE | 2023-06-04 16:32 | ED.GENADUL_ITS ---
Discharge Plan Disposition Patient Disposition: Home Condition: Good Discharge Details Clinical Impression: Dizziness Primary Care Provider: Daniel Hinkle ED Provider: Micheline Landers Home Meds and New Rx's Prescriptions: Continued albuterol sulfate [ProAir HFA] 90 mcg/actuation HFA aerosol inhaler 2 puff Inhalation Q6H PRN (Reason: shortness of breath) ibuprofen 600 mg tablet 600 mg PO Q8H PRN (Reason: pain) Qty: 60 3RF hydroxychloroquine 200 MG tablet 200 mg PO DAILY Qty: 30 levothyroxine 125 MCG tablet 125 mcg PO HS simvastatin 20 MG tablet 20 mg PO DAILY calcium carbonate [Oyster Shell Calcium] 500 mg calcium (1,250 mg) Tablet 500 mg PO DAILY losartan-hydrochlorothiazide 100-12.5 mg Tablet 1 tab PO DAILY pramipexole 0.25 mg Tablet 0.25 mg PO QHS acetaminophen 500 mg tablet 1,000 mg PO Q8H PRN (Reason: pain) Qty: 90 3RF doxycycline hyclate 50 mg capsule 50 mg PO ONCE aspirin 81 mg Tablet,Delayed Release (Dr/Ec) 81 mg PO DAILY Discharge Instructions Instructions: Dizziness (ED) Additional Instructions: Return home and rest. Drink plenty of fluids. Call your primary care doc in the morning for a follow-up appointment so that they can do additional testing as needed. Medical Decision Making Patient was updated on her test results. She has no lightheadedness at this time. She has no evidence of anemia, hypoglycemia, dehydration, electrolyte abnormality except for low potassium, abnormality on physical exam, etc. She will follow-up with her primary care doc this week for additional testing as needed. Lab Data Lab results reviewed: Yes I reviewed the patient's lab results. Lab results narrative: Patient's CBC and troponin normal. Her Chem-20 is normal with the exception of a potassium of 3.1 and calcium of 8.4. ECG Data Attestation: I personally reviewed and interpreted this ECG (s) as follows: (Normal sinus rhythm at 65, LVH, Q waves in 3 and aVF, no change versus 08/01) Prior ECG tracings: available for review HPI General Date/Time Provider Initiated Documentation: 06/04/23 14:51 . HPI Narrative: This 63-year-old female patient presents with a chief complaint of lightheadedness that she has had off and on for the past week. She says she gets it randomly when she is sitting in a chair or when she bends over. It is not definitive typically orthostatic. She has had no chest pain or shortness of breath. There is no belly pain. She has no focal neurologic deficits. She has had no fever, chills, or URI symptoms. There is no headache. The dizzy symptoms are mild and she says she feels lightheaded sitting in the chair in front of me. She denies vertigo or a sensation of movement. The patient has not been pooping black or bloody stool. She does not have a history of pronounced anemia. Related Data Home Medications Medication Instructions Recorded Confirmed simvastatin 20 mg tablet 20 mg PO DAILY 11/15/12 06/04/23 hydroxychloroquine 200 mg tablet 200 mg PO DAILY #30 tab-caps 11/16/16 06/04/23 levothyroxine 125 mcg tablet 125 mcg PO HS 05/25/17 06/04/23 albuterol sulfate 90 mcg/actuation 2 puff inhalation Q6H PRN 10/04/18 06/04/23 aerosol inhaler (ProAir HFA) shortness of breath calcium carbonate 500 mg calcium 500 mg PO DAILY 07/05/19 06/04/23 (1,250 mg) tablet (Oyster Shell Calcium) losartan 100 1 tab PO DAILY 07/05/19 06/04/23 mg-hydrochlorothiazide 12.5 mg tablet pramipexole 0.25 mg tablet 0.25 mg PO QHS 07/05/19 06/04/23 acetaminophen 500 mg tablet 1,000 mg (2 x 500 mg) PO Q8H PRN 07/17/19 06/04/23 pain #90 tabs aspirin 81 mg tablet,delayed 81 mg PO DAILY 05/08/20 06/04/23 release ibuprofen 600 mg tablet 600 mg PO Q8H PRN pain #60 tabs 07/17/20 06/04/23 doxycycline hyclate 50 mg capsule 50 mg PO ONCE 06/04/23 06/04/23 Previous Rx's Medication Instructions Recorded acetaminophen 500 mg tablet 1,000 mg (2 x 500 mg) PO Q8H PRN 07/17/19 pain #90 tabs ibuprofen 600 mg tablet 600 mg PO Q8H PRN pain #60 tabs 07/17/20 Allergies Allergy/AdvReac Type Severity Reaction Status Date / Time oxycodone [From Percocet] AdvReac Intermediate Nausea Verified 06/04/23 14:28 General Stated Complaint: Dizzy/Sync PRISCILLA: 3 Review of Systems Constitutional Constitutional: Denies chills, Denies fever(s), Denies headache(s) and Denies weakness Eyes Eyes: Denies diplopia and Reports other (no redness) ENT Ears, Nose, Mouth, and Throat: Denies vertigo, Reports dizziness (Or lightheadedness), Denies otalgia, Denies headache(s), Denies nasal congestion, Denies nasal discharge, Denies neck pain and Denies sore throat Cardiovascular Cardiovascular: Denies chest pain, Denies palpitations and Denies dyspnea Respiratory Respiratory: Denies cough and Denies dyspnea Gastrointestinal Gastrointestinal: Denies abdominal pain, Denies diarrhea, Denies nausea and Denies vomiting Genitourinary Genitourinary: Denies dysuria Musculoskeletal Musculoskeletal: Denies myalgias, Denies muscle weakness, Denies neck pain, Denies numbness and Reports other (edema) Integumentary/Breasts Skin/Breast: Denies change in pigmentation and Denies rash Neurologic Neurologic: Denies vertigo, Reports dizziness (Or lightheadedness), Denies headache(s), Denies numbness and Denies weakness Endocrine Endocrine: Denies palpitations PFSH All Active Problems Dizziness (Acute) Headache (Acute) Urinary tract infection (Acute) Colovaginal fistula (Acute) Diverticulitis of sigmoid colon (Acute) Osteoarthritis of right knee (Chronic) s/p R TKA 07/17/19 Valgus deformity, not elsewhere classified, right knee (Chronic) Amyloidosis (Chronic) Herniated nucleus pulposus, lumbar (Chronic) Antiphospholipid syndrome (Chronic) Trigger thumb of right hand (Acute) Trigger thumb of left hand (Chronic) Nasal vestibulitis (Acute 11/02/17) Nasal congestion (Acute 06/19/14) Deviated nasal septum (Acute 06/19/14) Cephalgia (Acute 11/20/14) Constipation (Chronic) as above HTN (hypertension) (Chronic) GERD (gastroesophageal reflux disease) (Chronic) stable Lupus (Chronic) Medical History Normal colonoscopy [place] 11/13/[address] Natalya 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, severe diverticular dz, repeat 10 years. mg Hypocalcemia Asthma Allergic rhinitis Abnormal mammogram of right breast Degenerative joint disease Hyperlipidemia Pericarditis Eczema Chest wall pain Insomnia Sciatica, left side Surgical History 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) History of bone marrow biopsy S/P thyroidectomy H/O: hysterectomy Tonsillectomy Social History Smoking/Tobacco Use Status: Former Tobacco Use Quit Date: 08/14/99 Smoking risk assessment performed?: Yes Alcohol Intake: current Alcohol Intake frequency: a few times a week Alcohol type: beer and wine Drug use: Never Substance use type: does not use Current gender identity: female Do you feel safe at home: Yes Do you feel safe in your relationship?: Yes Exam Const General: no acute distress, well developed, well groomed and not in acute distress Nutritional Appearance: well nourished Orientation: alert and oriented x3 HENMT Head: normocephalic and atraumatic Ears: external ears normal Mouth: oropharynx normal and moist mucous membranes Throat: posterior oropharynx normal Eyes Conjunctivae: conjunctivae normal Neck Neck: full ROM and supple Chest Chest: normal inspection of the chest Resp Effort & Inspection: normal respiratory effort Auscultation: clear to auscultation bilaterally Cardio Rate: regular rate Rhythm: regular rhythm Heart Sounds: no murmurs and no rubs GI Inspection: normal to inspection Palpation: soft, nontender and other (non distended) Auscultation: normal bowel sounds Skin General skin exam: no rashes or lesions noted and other (pink, warm, dry) Neuro General: patient alert, patient awake and patient oriented x3 Cranial Nerves: CN's II-XI intact bilaterally Cognition: normal cognition Speech: speech normal Gait: normal gait Motor: strength 5/5 throughout and other (GARCIA) Sensory Exam: no sensory deficits noted Coordination: [id number] test normal and Romberg test normal Extrem General: normal to inspection, full ROM and pedal edema present Psych Mental Status: mental status grossly normal Speech and Movement: speech and movement normal Affect: normal affect Course Vital Signs Vital signs: Vital Signs Temperature 36.6 C 06/04/23 14:25 Pulse 70 06/04/23 14:25 Respiratory Rate 18 06/04/23 14:25 Blood Pressure 160/84 H 06/04/23 14:25 Pulse Oximetry 98 06/04/23 14:25 Temperature 36.6 C 06/04/23 14:25 Temperature Source Skin 06/04/23 14:25 Pulse 57 L 06/04/23 16:15 Respiratory Rate 16 06/04/23 16:15 Respiratory Effort Normal, Non-Labored 06/04/23 14:50 Respiratory Depth Normal 06/04/23 14:50 Respiratory Pattern Normal 06/04/23 14:50 Blood Pressure 155/57 H 06/04/23 16:15 Blood Pressure Position Sitting 06/04/23 14:25 Pulse Oximetry 96 06/04/23 16:00 Oxygen Delivery Method Room Air 06/04/23 16:15 Oxygen Flow Rate 0 06/04/23 16:15 Pain Level 0 06/04/23 16:15 Lab/Test Results Lab/Test Results: Laboratory Tests Range/Units 06/04/23 15:40 WBC (4.4-10.8) 10^3/uL 7.68 RBC (3.93-5.22) 10^6/uL 5.17 Hgb (11.2-15.7) g/dL 14.2 Hct (36.0-46.0) % 41.8 MCV (80-95) fL 81 MCH (27.0-33.0) pg 27.5 MCHC (32.0-36.0) % 34.0 RDW (11.7-14.6) % 13.2 Plt Count (130-400) 10^3/uL 247 MPV (8.0-11.0) fL 9.1 Sodium (136-145) mmol/L 139 Potassium (3.5-5.1) mmol/L 3.1 L Chloride (98-107) mmol/L 100 Carbon Dioxide (21.0-32.0) mmol/L 30.9 Anion Gap (3-11) mmol/L 8.1 BUN (7-18) mg/dL 12 Creatinine (0.55-1.02) mg/dL 0.9 Est GFR (CKD-EPI 2020) (mL/min/1.73m2) 72.73 Glucose (74-106) mg/dL 101 Calcium (8.5-10.1) mg/dL 8.4 L Total Bilirubin (0.2-1.0) mg/dL 0.4 AST (15-37) U/L 21 ALT (14-59) U/L 20 Alkaline Phosphatase (46-116) U/L 96 Troponin I (<or=60) ng/L < 50 Total Protein (6.4-8.2) g/dL 7.2 Albumin (3.4-5.0) g/dL 3.8
[2023-06-04] MEDS: Potassium Chloride 20 MEQ TABCR 40 MEQ PO (16:40)
[2023-06-04 17:07] VITALS: BP 119/54; PULSE 62; RESP 16; O2SAT 94
== END 2023-06-04 17:23 | disposition home or self-care (01) ==
PROVIDERS: Emergency Provider Emergency Medicine; PCP Family Medicine
DX: R42 Dizziness and giddiness (principal); E87.6 Hypokalemia; R94.31 Abnormal electrocardiogram [ECG] [EKG]; E89.0 Postprocedural hypothyroidism; Z87.891 Personal history of nicotine dependence
CPT/HCPCS: 80053; 85027; 93005; 96360; 99283; 84484; 93010; J3490

== ENCOUNTER → 2023-06-21 00:30 | Outpatient (CLI) | payer MEDICARE, MEDICAID, SELFPAY ==
--- NOTE | 2023-06-21 07:30 | DI.US_ITS ---
APPROVED REPORT EXAM: Comprehensive 2D, Doppler, and color-flow Echocardiogram Patient Location: Out-Patient Pre Wave Assembler: Luisa Marie RDCS (AE) Indications: Pulmonary hypertension with systemic disorder Other Information Study Quality: Adequate Conclusion Normal left ventricular chamber size. There is mild concentric left ventricular hypertrophy. Ejecti on fraction is 58% with normal wall motion Normal right ventricular size and systolic function Both atria are normal in size Aortic valve is mildly sclerotic and trileaflet without stenosis or regurgitation Normal mitral valve with trace regurgitation Normal tricuspid valve with mild regurgitation. Estimated right ventricular systolic pressure is 23 mmHg Wall motion Left Ventricle The left ventricle is normal size. The left ventricular systolic function is normal. The left ventric ular ejection fraction is within the normal range. Borderline concentric left ventricular hypertrophy . There is normal LV segmental wall motion. There is no ventricular septal defect visualized. LVEF is 58%. Right Ventricle The right ventricle is normal size. The right ventricular systolic function is normal. Atria The left atrium size is normal. The right atrium size is normal. The interatrial septum is intact wit h no evidence for an atrial septal defect. Aortic Valve The Aortic valve is mildly sclerotic. Aortic valve is trileaflet. There is no aortic valvular stenosi s. No aortic regurgitation is present. Mitral Valve The mitral valve is normal in structure. No evidence of mitral valve stenosis. Trace mitral regurgita tion. Tricuspid Valve The tricuspid valve is normal in structure. There is no tricuspid valve stenosis. Mild tricuspid regu rgitation. The RVSP is 23.3 mmHg. Pulmonic Valve The pulmonary valve is normal in structure. There is no pulmonic valvular stenosis. Trace pulmonic re gurgitation. Great Vessels The aortic root is normal in size. The ascending aorta is normal Aortic arch is not well visualized. IVC is normal in size and collapses >50% with inspiration. Pericardium There is no pericardial effusion. 2D Dimensions IVSD d PLAX 1.06 cm F: 0.6-1.0 Ao Root d 3.15 cm F: 2.7 - 3.3 LVPW d PLAX 1.09 cm F: 0.6 - 1.0 Ao Asc Diam d 3.22 cm F: 2.3 - 3.1 LVID d PLAX 4.01 cm F: 3.8 - 5.2 LVDs 2.80 cm F: 2.2 - 3.5 LV EF Teichholz 58.0 % FS 30.12 % LV EDV (Teich) 70.2 mL LV ESV (Teich) 29.5 mL M-Mode TAPSE 1.93 cm (M/F) >1.7 Auto EF LV EDV A4C 105.9 mL LV EDV A2C 92.0 mL LV EDV BP 100.0 mL LV ESV A4C 46.1 mL LV ESV A2C 39.0 mL LV ESV BP 43.0 mL LVEF(%) A4C 56.5 % LVEF(%) A2C 57.6 % LVEF(%) BP 57.0 % LV SV A4C 59.9 ml LV SV A2C 53.0 ml LV SV BP 56.9 ml LV CO A4C 3.4 L/min LV CO A2C 3.0 L/min LV CO BP 3.2 L/min HR A4C 56.87 BPM HR A2C 56.08 BPM LV EDV Index (BP) LV Strain Long Pk Overal Avg (s) 19.35 LA Volume LA Length A4C 5.1 cm LA Length A2C 5.3 cm LA Area A4C s 18.70 cm2 LA Area A2C s 16.41 cm2 LA Vol A4C A-L 58.19 mL LA Vol A2C A-L 42.99 mL LA Vol Biplane A-L 51.0 mL LA Vol/BSA A4C A-L LA Vol/BSA A2C A-L LA Vol/BSA BP A-L 26.0 mL/m2 LA Vol A4C MOD 53.7 mL LA Vol A2C MOD 40.7 mL LA Vol BP MOD 47.6 mL RA Volume RA Area A4C 11.9 cm2 RA ESV A4C (A-L) 26.3mL RA Vol/BSA A4C A-L RA Length A4C 4.6 cm RA ESV A4C (MOD) 25.2mL LV Diastology MV E' medial 0.090 (>0.07 m/s) MV E Vmax 0.87 (0.4-1.3 m/s) MV E/E' MED 9.66 (<14) MV A Vmax 0.75 (0.4-1.3 m/s) MV E' lateral 0.123 (>0.1 m/s) E/A Ratio 1.2 MV E/E' LAT 7.09 (<14) MV E' Average 0.107 m/s MV E/E'(average) 8.18 Aortic Valve AoV Vmax 1.93 m/s LVOT Vmax 1.16 m/s AoV Peak Grad 14.9 mmHg LVOT Peak Grad 5.4 mmHg AoV Area (Vmax) 1.79 cm2 LVOT VTI 0.328 m AoV VTI 0.493 m LVOT Mean Grad 3.2 mmHg AoV Mean Felix. 1.27 m/s LVOT SV 97.99 mL AoV Mean Grad 7.5 mmHg LVOT Diam s 1.95 cm AoV Area (VTI) 1.99 cm2 Velocity Ratio 0.60 Mitral Valve MV DT 185 (160-240 msec) Pulmonary Valve PV Vmax 1.02 (0.5-1.5 m/s) RVOT Vmax 0.59 m/s PV Peak Grad 4.2 mmHg RVOT Peak Gr. 1.4 mmHg PV Mean Felix 0.79 m/s RVOT VTI 0.164 m PV Mean Grad 2.6 mmHg RVOT Mean Gr. 0.8 mmHg Tricuspid Valve RA Pressure 3.00 mmHg TR Vmax 2.25 m/s TV S' 0.14 m/s TR Peak Grad 20.3 mmHg RVSP (TR) 23.3 mmHg
== END ==
PROVIDERS: PCP Family Medicine; Visit Provider Student in an Organized Health Care Education/Training Program
DX: I27.29 Other secondary pulmonary hypertension (principal)
CPT/HCPCS: 93306

== ENCOUNTER 2023-08-11 16:07 | Outpatient (REF) | payer MEDICARE, MEDICAID, SELFPAY ==
[2023-08-11 15:41] LABS: TSH (W/Ref FT4) 3.08 uIU/mL (0.36-3.74)
== END 2023-08-11 16:08 | disposition home or self-care (01) ==
LOC: NCHCN 16:07
PROVIDERS: PCP Family Medicine; Visit Provider Family Medicine
DX: E03.9 Hypothyroidism, unspecified (principal)
CPT/HCPCS: 84443

== ENCOUNTER 2023-08-17 14:42 | Outpatient (CLI) | payer MEDICARE, MEDICAID, SELFPAY ==
--- NOTE | 2023-08-17 14:00 | DI.RAD_ITS ---
Exam(s) XR KNEE LT 3V AP,LAT,CLAUDIA EXAM: XR KNEE LT 3V AP,LAT,CLAUDIA CLINICAL HISTORY: left knee pain. TECHNIQUE: 2D digital imaging was performed of the left knee. Three images were obtained. AP, late ral and PA tunnel views were obtained. COMPARISON: CR XR STANDING ALIGNMENT from 08/01/2019 At that FINDINGS: BONES: No acute fracture is present. No bony destructive lesion is seen. JOINTS: The knee is normally aligned. There is a moderate joint effusion. There is mild narrowing of the femoral tibial joint space. SOFT TISSUE: Atherosclerosis. IMPRESSION: 1. Mild narrowing of the femoral tibial joint space. 2. Moderate suprapatellar joint effusion. DATA REPOSITORY: RADIATION DOSE DELIVERED:
--- NOTE | 2023-08-17 14:00 | DI.RAD_ITS ---
Exam(s) XR KNEE RT 3V AP,LAT,CLAUDIA EXAM: XR KNEE RT 3V AP,LAT,CLAUDIA CLINICAL HISTORY: RIGHT KNEE PAIN. TECHNIQUE: 2D digital imaging was performed. Three images were obtained. PA tunnel, AP and lateral views were obtained. COMPARISON: CR XR KNEE RT 3V AP,LAT,CLAUDIA from 11/17/2022 FINDINGS: BONES: There are stable post operative changes of a right total knee replacement present. No fractur e or dislocation. JOINTS: The orthopedic hardware is in good position. No evidence of hardware loosening. SOFT TISSUE: Atherosclerosis. IMPRESSION: Stable postoperative changes. DATA REPOSITORY: RADIATION DOSE DELIVERED:
== END 2023-08-17 14:43 | disposition home or self-care (01) ==
LOC: DIORS 14:42
PROVIDERS: PCP Family Medicine; Referring Provider Family Medicine
DX: Z96.651 Presence of right artificial knee joint (principal); M17.12 Unilateral primary osteoarthritis, left knee
CPT/HCPCS: 20610; 73562; J1040

== ENCOUNTER → 2023-10-12 04:39 | Outpatient (CLI) | payer MEDICARE, MEDICAID, SELFPAY ==
--- NOTE | 2023-10-12 | DI.US_ITS ---
Exam(s) MG MAMMO DIAGNOSTIC BI US BREAST LT LIMITED EXAM: MG MAMMO DIAGNOSTIC BI CLINICAL HISTORY: DIAGNOSTIC, LT BREAST PAIN, N64.4. COMPARISON: US US BREAST LT LIMITED from 10/12/2023 TECHNIQUE: Craniocaudal and mediolateral oblique Full Field Digital Mammography views of both breast s with Computer Aided Diagnosis followed by Tomosynthesis and left breast ultrasound. FINDINGS: Mammography/Tomosynthesis: Masses/Architectural Distortion: None seen. Microcalcifications: No suspicious pleomorphic-type are seen. Skin Thickening/Nipple Retraction: None. Left breast US: Echotexture: Normal appearance of the glandular tissue. Shadowing: No suspicious foci. Cyst: None. Solid lesions: No suspicious masses.. Normal appearing intramammary lymph node in the 2 o'clock posi tion 4 cm from the nipple measuring 1.3 cm. Ductal dilation: None. IMPRESSION: 1. No evidence of malignancy is noted. 2. Unless there is more urgent need, follow-up screening mammography is recommended, as per [employer] [employer] guidelines. BI-RADS Category 1 - Negative Breast Density - Category B - Scattered areas of fibroglandular density Breast density category C or D implies that the patient has dense breast tissue. Dense breast tissue is very common and is not abnormal but dense breast tissue can make it harder to find cancer on a ma mmogram. Also, dense breast tissue may increase their breast cancer risk. This information about the result of the mammogram report was provided to the patient to raise their awareness. Use this report when you speak with the patient about their risks for breast cancer, which includes their family hist ory. At that time, you may recommend for more screening tests (Ultrasound or MRI) as they might be us eful based on their risk. A negative radiographic report should not delay biopsy if a dominant or clinically suspicious mass is present. Up to ten percent of cancers are not identified on mammography. A negative report may reinforce clinical impression. Adenosis and dense breasts may obscure an underlying neoplasm. False positive reports average 6 to 10%. Patient will receive a letter notifying them of these results.
== END ==
PROVIDERS: PCP Family Medicine; Visit Provider Physician Assistant Medical
DX: R92.8 Other abnormal and inconclusive findings on diagnostic imaging of breast (principal); Z12.31 Encounter for screening mammogram for malignant neoplasm of breast; N64.4 Mastodynia
CPT/HCPCS: 76642; 77062; 77066; G0279

== ENCOUNTER 2023-10-12 14:50 | Emergency (ER) | payer MEDICARE, MEDICAID, SELFPAY ==
[2023-10-12 14:55] VITALS: BP 167/52; PULSE 59; RESP 16; TEMP 36.6; O2SAT 99
--- NOTE | 2023-10-12 15:10 | ED.GENADUL_ITS ---
Discharge Plan Disposition Patient Disposition: Against Medical Advice Discharge Details Clinical Impression: Increased urinary frequency, Abdominal bloating Primary Care Provider: Daniel Hinkle ED Provider: Daniel Abernathy Home Meds and New Rx's Prescriptions: Continued ibuprofen 600 mg tablet 600 mg PO Q8H PRN (Reason: pain) Qty: 60 3RF albuterol sulfate [ProAir HFA] 90 mcg/actuation HFA aerosol inhaler 2 puff Inhalation Q6H PRN (Reason: shortness of breath) hydroxychloroquine 200 MG tablet 200 mg PO DAILY Qty: 30 levothyroxine 125 MCG tablet 125 mcg PO HS simvastatin 20 MG tablet 20 mg PO DAILY calcium carbonate [Oyster Shell Calcium] 500 mg calcium (1,250 mg) Tablet 500 mg PO DAILY losartan-hydrochlorothiazide 100-12.5 mg Tablet 1 tab PO DAILY pramipexole 0.25 mg Tablet 0.25 mg PO QHS acetaminophen 500 mg tablet 1,000 mg PO Q8H PRN (Reason: pain) Qty: 90 3RF aspirin 81 mg Tablet,Delayed Release (Dr/Ec) 81 mg PO DAILY Discharge Instructions Additional Instructions: You were seen in the emergency department for your abdominal bloating and your urinary frequency. A urinalysis was performed that showed no signs of a urinary tract infection. It was recommended that you undergo blood work and CT scan in an attempt to determine the cause of your symptoms. You elected to leave before your evaluation was completed. As we discussed, if you have worsening symptoms or you wish to return at any point to have your evaluation completed please return to the emergency department. Please certainly return if you develop any burning when you urinate any fevers any nausea vomiting or any abdominal pain. Otherwise please follow-up with your primary care provider later this week. HPI General Date/Time Provider Initiated Documentation: 10/12/23 14:57 . HPI Narrative: MDM This is an overall very well-appearing normothermic and not tachycardic 63-year-old female with abdominal bloating and urinary frequency concerning for the possibility of urinary tract infection. No pain out of proportion to suggest necrotizing soft tissue infection. Patient does have some mild left lower quadrant tenderness and as result I considered diverticulitis. If her urinalysis shows a clear signs of UTI will treat empirically with cephalexin given no reported abdominal pain and no GI symptoms. If her urinalysis is equivocal we will proceed with labs and imaging given her elevated BMI and her left lower quadrant tenderness. No rash to abdomen to suggest zoster. No right lower quadrant tenderness to suggest appendicitis. No history of ureterolithiasis and no flank pain to suggest ureterolithiasis. No fevers nor CVA tenderness so doubt pyelonephritis. No shortness of breath and no left upper quadrant pain to suggest referred pain. No cough to suggest pneumonia. No right upper quadrant tenderness no diarrhea no nausea to suggest acute cholecystitis. No history of trauma to suggest hip fracture. No nausea nor vomiting to suggest ovarian torsion. No abnormal vaginal discharge to suggest sexually-transmitted infection. No epigastric pain nor tenderness to suggest appendicitis. Given no fevers nor diarrhea my suspicion for any recurrent colovaginal fistula is low. 3:34 PM Patient's urinalysis was not consistent with UTI, nitrite & leukoesterase negative. I met with the patient and advised her that I was planning on obtaining blood work and a CT scan to further elucidate the cause of her pain. She requested to leave. She left prior to her evaluation being completed. We discussed return to the ED if you change your mind and wanted an evaluation if she developed any fevers difficulty urinating dysuria or any abdominal pain. She understood her return indications and advised PCP follow-up later this week. 1. I explained the current situation and condition to the patient. 2. I explained the recommended treatment for this condition -CT scan with blood work 3. I explained the risk of not having the recommended treatment -diverticulitis appendicitis sepsis and 4. The patient understands this information has no questions, and repeated back this information. 5. The patient states that they need to leave and will return if her symptoms worsen 6. Mental status is lucid and the patient has decision-making capacity. 7. Patient is withdrawing her consent for care. Chronic conditions affecting the care of the patient: Antiphospholipid syndrome elevated BMI History obtained from an outside historian: N/A External record review: [facility] [place] Medications: N/A Social determinants of health affecting disposition: N/A Management discussed with: N/A Treatment/interventions considered: CT scan and blood work but deferred based on patient preference Response to therapies provided: N/A HPI This is a 63-year-old female with a history of antiphospholipid syndrome and diverticulitis and colovaginal fistula arrived to the emergency department in the setting of bloating and urinary frequency which began yesterday evening. Patient first felt abdominal bloating. Today she has urinated 12 times since she woke up this morning. She denies dysuria. She remotely had a prior urinary tract infection. She has never had ureterolithiasis. She denies any recent falls. She denies any rashes to her abdomen. She has not had any back pain. She does not feel short of breath nor she have a cough. She denies fevers nausea vomiting diarrhea. No chest pain. Exam General: Well-appearing in no acute distress speaking in complete sentences. Head: Normocephalic, atraumatic. Eye: Extraocular eye movements intact. No conjunctival injection. No scleral icterus. Ear, nose, mouth, throat: Grossly normal inspection. Normal voice, handling secretions normally. Neck: Trachea midline. Cardiovascular: Well-perfused distal extremities. Regular rate and rhythm Respiratory: Nonlabored respiration. Clear lungs bilaterally. Gastrointestinal: Nondistended abdomen. Mild left lower quadrant tenderness. No rebound. No guarding. No right lower quadrant tenderness. No upper quadrant tenderness. No epigastric tenderness. Musculoskeletal: No edema. Moving all 4 extremities spontaneously. Skin: Normal for age and race, grossly normal temperature and turgor. No acute rash. Neurologic: Alert and appropriate, no apparent acute deficits. Psychiatric: Mood and manner are appropriate. Grooming and personal hygiene are appropriate. Related Data Home Medications Medication Instructions Recorded Confirmed simvastatin 20 mg tablet 20 mg PO DAILY 11/15/12 10/12/23 hydroxychloroquine 200 mg tablet 200 mg PO DAILY #30 tab-caps 11/16/16 10/12/23 levothyroxine 125 mcg tablet 125 mcg PO HS 05/25/17 10/12/23 albuterol sulfate 90 mcg/actuation 2 puff inhalation Q6H PRN 10/04/18 10/12/23 aerosol inhaler (ProAir HFA) shortness of breath calcium carbonate 500 mg calcium 500 mg PO DAILY 07/05/19 10/12/23 (1,250 mg) tablet (Oyster Shell Calcium) losartan 100 1 tab PO DAILY 07/05/19 10/12/23 mg-hydrochlorothiazide 12.5 mg tablet pramipexole 0.25 mg tablet 0.25 mg PO QHS 07/05/19 10/12/23 acetaminophen 500 mg tablet 1,000 mg (2 x 500 mg) PO Q8H PRN 07/17/19 10/12/23 pain #90 tabs aspirin 81 mg tablet,delayed 81 mg PO DAILY 05/08/20 10/12/23 release ibuprofen 600 mg tablet 600 mg PO Q8H PRN pain #60 tabs 08/17/23 10/12/23 Previous Rx's Medication Instructions Recorded acetaminophen 500 mg tablet 1,000 mg (2 x 500 mg) PO Q8H PRN 07/17/19 pain #90 tabs ibuprofen 600 mg tablet 600 mg PO Q8H PRN pain #60 tabs 08/17/23 Allergies Allergy/AdvReac Type Severity Reaction Status Date / Time oxycodone [From Percocet] AdvReac Intermediate Nausea Verified 10/12/23 14:55 General Stated Complaint: Abd Prob PRISCILLA: 3 Course Vital Signs Vital signs: Vital Signs Temperature 36.6 C 10/12/23 14:55 Pulse 59 L 10/12/23 14:55 Respiratory Rate 16 10/12/23 14:55 Blood Pressure 167/52 H 10/12/23 14:55 Pulse Oximetry 99 10/12/23 14:55 Temperature 36.6 C 10/12/23 14:55 Temperature Source Temporal Artery Scan 10/12/23 14:55 Pulse 59 L 10/12/23 14:55 Respiratory Rate 16 10/12/23 14:55 Respiratory Effort Normal, Non-Labored 10/12/23 14:58 Blood Pressure 167/52 H 10/12/23 14:55 Blood Pressure Position Sitting 10/12/23 14:55 Pulse Oximetry 99 10/12/23 14:55 Oxygen Delivery Method Room Air 10/12/23 14:55 Oxygen Flow Rate 0 10/12/23 14:55 Pain Level 3 10/12/23 14:55 Medical Decision Making Quality:SDOH Health Related Social Needs: No Data to Display PFSH All Active Problems (Updated 10/12/23 @ 15:30 by Daniel Abernathy MD) Abdominal bloating (Acute) Increased urinary frequency (Acute) Left knee DJD (Chronic) 80 mg Depo-medrol injection: 08/17/23 Headache (Acute) Urinary tract infection (Acute) Colovaginal fistula (Acute) Diverticulitis of sigmoid colon (Acute) Amyloidosis (Chronic) Herniated nucleus pulposus, lumbar (Chronic) Antiphospholipid syndrome (Chronic) Trigger thumb of right hand (Acute) Trigger thumb of left hand (Chronic) Nasal vestibulitis (Acute 11/02/17) Nasal congestion (Acute 06/19/14) Deviated nasal septum (Acute 06/19/14) Cephalgia (Acute 11/20/14) Constipation (Chronic) as above HTN (hypertension) (Chronic) GERD (gastroesophageal reflux disease) (Chronic) stable Lupus (Chronic) Medical History Normal colonoscopy [place] 11/13/[address] Natalya Styles at [facility], severe diverticular dz, repeat 10 years. 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
[2023-10-12 15:18] LABS: Bilirubin Negative (Negative); Blood Negative (Negative); Clarity Clear (Clear); Glucose Negative (Negative); Ketones Negative (Negative); Leukocyte Esterase Negative (Negative); Nitrite Negative (Negative); Specific Gravity 1.015 (1.005-1.025); Urobilinogen 0.2 mg/dL (Up to 0.2); pH 6.5 (5-8)
== END 2023-10-12 15:45 | disposition left against medical advice (07) ==
PROVIDERS: Emergency Provider Emergency Medicine; PCP Family Medicine
DX: R14.0 Abdominal distension (gaseous) (principal); R10.32 Left lower quadrant pain; R35.0 Frequency of micturition; Z53.29 Procedure and treatment not carried out because of patient's decision for other reasons
CPT/HCPCS: 76642; 77062; 77066; 99282; 81003; G0279

== ENCOUNTER 2023-11-10 11:39 | Outpatient (REF) | payer MEDICARE, SELFPAY ==
[2023-11-10 15:44] LABS: ALT 19 U/L (14-59); AST 17 U/L (15-37); Albumin 3.4 g/dL (3.4-5.0); Alkaline Phosphatase 97 U/L (46-116); BUN 14 mg/dL (7-18); Bilirubin, Total 0.5 mg/dL (0.2-1.0); CREATININE 0.9 mg/dL (0.55-1.02); Calcium 7.7 mg/dL (8.5-10.1); Chloride 103 mmol/L (98-107); Estimated GFR 72.73 (mL/min/1.73m2); Glucose 78 mg/dL (74-106); Potassium 3.5 mmol/L (3.5-5.1); Sodium 143 mmol/L (136-145); Total Protein 6.1 g/dL (6.4-8.2)
[2023-11-13 11:17] LABS: Lambda Free Light Chain 1.63 mg/dL (0.57-2.63)
[2023-11-13 15:44] LABS: Albumin g/dL 3.7 g/dL (3.6-5.2)
== END 2023-11-10 11:40 | disposition home or self-care (01) ==
LOC: NCHCN 11:39
PROVIDERS: PCP Family Medicine; Visit Provider Family Medicine
DX: E85.4 Organ-limited amyloidosis (principal)
CPT/HCPCS: 80053; 83883; 84165

== ENCOUNTER → 2023-11-14 04:24 | Outpatient (CLI) | payer MEDICARE, MEDICAID, SELFPAY ==
--- NOTE | 2023-11-14 07:45 | DI.CT_ITS ---
Exam(s) CT LOWER EXTREMITY RT WO EXAM: CT LOWER EXTREMITY RT WO CLINICAL HISTORY: RT KNEE pain, ?loosening,LT KNEE DJD,M25.561,T84.84XA. TECHNIQUE: Imaging Protocol: Axial computed tomography images with coronal and sagittal reformatted images were created and reviewed. Metal artifact reducing algorithm was used CONTRAST MATERIAL: Intravenous: None COMPARISON: CR XR KNEE RT 2V AP,LAT from 07/16/2021 CR XR KNEE RT 3V AP,LAT,CLAUDIA from 11/17/2022 CR XR KNEE LT 3V AP,LAT,CLAUDIA from 08/17/2023 CR XR KNEE RT 3V AP,LAT,CLAUDIA from 08/17/2023 FINDINGS: OSSEOUS: There is no obvious abnormal lucency around the femoral component prosthesis. There is a thin area of lucency around the tibial stem component evident. This is not seen on recent plain films August 2023. May be significant. No evidence of osteomyelitis. SOFT TISSUES: No abnormal fluid collections evident. IMPRESSION: There is a thin rim of hypodensity around the stem of the tibial component which may be significant w ith respect to loosening. Correlation with clinical findings recommended. Also possible nuclear bon e scan. RADIATION DOSE DELIVERED: Total DLP DATA REPOSITORY: All CT scans at this facility are submitted to the National Radiology Data Registry (NRDR) Dose Index Registry (DIR) with the [employer] (ACR). RADIATION OPTIMIZATION: All CT scans at this facility use at least one of these dose optimization te chniques: automated exposure control; mA and/or kV adjustment per patient size (includes targeted exa ms where dose is matched to clinical indication); or iterative reconstruction.
--- NOTE | 2023-11-14 07:45 | DI.MRI_ITS ---
Exam(s) MR LOWER JOINT LT WO EXAM: MR LOWER JOINT LT WO CLINICAL HISTORY: RT KNEE PAIN,? LOOSENING,T84.84XA,M25.561,LT KNEE DJD.M17.12 TECHNIQUE: Multiplanar multisequence MRI of the knee was performed. COMPARISON: MR MRI R LOWER JOINT WO CONT from 06/24/[address] CHEST WO from 04/20/2023 CR XR KNEE LT 3V AP,LAT,CLAUDIA from 08/17/2023 FINDINGS: EFFUSION: There is subcutaneous edema anterior and on both sides of the knee. No formed prepatellar fluid collection. There is a prominent joint effusion with synovial thickening. There is also a Jose er cyst in the medial popliteal fossa which measures 5 cm cephalocaudal length by 1.4 cm AP by 1.5 cm wide. Does not contain loose intra-articular bodies. MARROW:There is prominent subarticular bone edema in the lateral compartment both at the level of the lateral femoral condyle and lateral tibial plateau (see below). There is no abnormal intraosseous s ignal in the medial compartment nor within the patella. PATELLOFEMORAL COMPARTMENT: The quadriceps tendon is intact. The patellar ligament is intact. There is subcutaneous edema anterior to the patellar ligament but no tear nor abnormal signal within this structure. There is mild increased signal seen within the retropatellar cartilage over the lateral facet. No de ep fissures and no evidence of subarticular edema nor osteochondral defects in posterior patella.Ther e is no intraosseous signal to suggest recent patellar dislocation. There are no patellar retinacular tears. CRUCIATE LIGAMENTS: The anterior cruciate ligament is intact.The posterior cruciate ligament is intac t. MEDIAL COMPARTMENT/MEDIAL MENISCUS: There are no tears of the medial meniscus evident.There is mild u niform thinning of the articular cartilage over the medial femoral condyle. There are no osteochondr al defects. No subarticular edema in the medial compartment. Tiny marginal osteophyte noted off the outer aspect of the medial femoral condyle.. MEDIAL COLLATERAL LIGAMENT: Appears intact LATERAL COMPARTMENT/LATERAL MENISCUS: There is complex tear of the lateral meniscus. In the posterio r horn there is oblique tearing at the junction of the mid and inner thirds. There is attenuation of the anterior horn with element of outward extrusion.There significant focal areas of signal abnormal ity in the lateral half of the tibial plateau and weight-bearing surface of the lateral femoral condy le and these areas are surrounded by abundant intraosseous edema in the lateral femoral condyle and l ateral tibial plateau. Suspicious for developing osteochondral defects in addition to advanced narro wing of the articular cartilage over the main weight-bearing surfaces of the lateral compartment. ILIOTIBIAL BAND: Intact LATERAL COLLATERAL LIGAMENT COMPLEX: Fibular collateral ligament appears thin but without high-grade tear. Biceps femora is tendon appears intactPopliteus muscle and tendon are intact. IMPRESSION: 1. The main findings here in the lateral compartment where there is complex tear of the posterior hor n of the medial meniscus and element of outward extrusion of the anterior horn. There is significant loss of articular cartilage over the lateral femoral condyle and lateral tibial plateau with 2 oppos ing subarticular sub cm foci which may be developing osteochondral defects and both exhibit abundant surrounding bone edema in both the tibial plateau and lateral femoral condyle. There are no osteophy derrick. 2. The cruciate and medial collateral ligaments are intact. There appears to be some thinning of the fibular collateral ligament. The biceps femoris and popliteus components of the lateral collateral ligament complex appear unremarkable. 3. Mild findings in the patellofemoral compartment as described above. 4. There is a prominent knee joint effusion with some synovial thickening. There is also a Rosas cys t in the popliteal fossa measuring 5 cm lengthx 1.5 cm wide. There are no obvious loose intra-articu lar bodies evident. DATA REPOSITORY:
== END ==
PROVIDERS: PCP Family Medicine; Visit Provider Student in an Organized Health Care Education/Training Program
DX: M25.562 Pain in left knee (principal); M25.462 Effusion, left knee; M71.22 Synovial cyst of popliteal space [Baker], left knee; S83.282A Other tear of lateral meniscus, current injury, left knee, initial encounter; M25.561 Pain in right knee; T84.84XA Pain due to internal orthopedic prosthetic devices, implants and grafts, initial encounter; Z96.651 Presence of right artificial knee joint
CPT/HCPCS: 73721; 73700

== ENCOUNTER → 2023-11-22 05:16 | Outpatient (CLI) | payer MEDICARE, MEDICAID, SELFPAY ==
--- NOTE | 2023-11-22 07:30 | DI.NM_ITS ---
Exam(s) NM BONE SCAN 3 PHASE EXAM: NM BONE SCAN 3 PHASE CLINICAL HISTORY: ? loosening of prosthesis,rt knee pain,m25.561,z96.651. TECHNIQUE: Injected Dose: 26.8 mCi Tc-99m MDP COMPARISON: CR XR STANDING ALIGNMENT from 08/01/[address] ABDOMEN PELVIS W from 06/26/2020 CR XR KNEE RT 2V AP,LAT from 07/16/2021 CR XR KNEE LT 3V AP,LAT,CLAUDIA from 08/17/2023 CR XR KNEE RT 3V AP,LAT,CLAUDIA from 08/17/[address] LOWER EXTREMITY RT WO from 11/14/2023 MR MR LOWER JOINT LT WO from 11/14/2023 FINDINGS: Perfusion: Symmetric. Blood Pool: Increased soft tissue activity noted around the left knee. No abnormal soft tissue activ ity around the right knee. Delayed: Minimally increased activity seen at the lateral edge of the right patella. There is no abn ormal uptake around the femoral or tibial component of the right knee prosthesis. There is significa ntly increased uptake in the left knee corresponding to areas of marrow edema seen on recent MRI. In creased activity is also seen in both ankles, thoracic and lumbar spine, presumably related to degene rative changes. Could not small foci of increased activity are noted in the soft tissues of the righ t calf region which appears to correspond to calcifications noted on plain film, best seen on the leg length study 01 August 2019. IMPRESSION: 1. No evidence of abnormal uptake around the right knee prosthesis.. 2. Increased activity in the lateral femoral condyle lateral tibial plateau consistent with areas of marrow edema noted on recent MRI. DATA REPOSITORY:
== END ==
PROVIDERS: PCP Family Medicine; Visit Provider Student in an Organized Health Care Education/Training Program
DX: M25.561 Pain in right knee (principal); Z96.651 Presence of right artificial knee joint; R60.0 Localized edema
CPT/HCPCS: 78315

== ENCOUNTER 2023-11-22 19:07 | Outpatient (REF) | payer MEDICARE, MEDICAID, SELFPAY ==
[2023-11-24 15:40] LABS: Albumin, Urine % 15.2 %; Albumin, Urine mg/24hrs <5 mg/24hrs; Globulins, Urine % 84.8 %; Globulins, Urine mg/24hrs <25 mg/24hrs; Immunotyping, Urine (See Note); Total Protein Urine <5 mg/dL (See Note); Total Protein, Urine 24hrs <30 mg/24hrs (<150); Urine Volume 600 mL
== END 2023-11-22 19:08 | disposition home or self-care (01) ==
LOC: NCHCN 19:07
PROVIDERS: PCP Family Medicine; Visit Provider Family Medicine
DX: E85.4 Organ-limited amyloidosis (principal); Z87.19 Personal history of other diseases of the digestive system
CPT/HCPCS: 84156; 84166; 86335; 81050

== ENCOUNTER → 2023-11-27 13:45 | Outpatient (BNVA) | payer MEDICARE, MEDICAID, SELFPAY | PROVIDERS: PCP Family Medicine; Referring Provider Family Medicine; Visit Provider Student in an Organized Health Care Education/Training Program | DX: M17.12 Unilateral primary osteoarthritis, left knee (principal) | CPT/HCPCS: 20610; J1010; J1040 ==

== ENCOUNTER 2024-02-01 15:47 | Outpatient (REF) | payer MEDICARE, MEDICAID, SELFPAY ==
[2024-02-01 15:15] LABS: ALT 27 U/L (14-59); AST 23 U/L (15-37); Albumin 3.8 g/dL (3.4-5.0); Alkaline Phosphatase 108 U/L (46-116); Anion Gap 8.5 mmol/L (3-11); BUN 17 mg/dL (7-18); Bilirubin, Total 0.43 mg/dL (0.2-1.0); CO2 28.5 mmol/L (21.0-32.0); CREATININE 0.9 mg/dL (0.55-1.02); Calcium 8.2 mg/dL (8.5-10.1); Chloride 104 mmol/L (98-107); Estimated GFR 72.73 (mL/min/1.73m2); Glucose 101 mg/dL (74-106); Potassium 3.9 mmol/L (3.5-5.1); Sodium 141 mmol/L (136-145); TSH 2.94 uIU/Ml (0.36-3.74); Total Protein 6.6 g/dL (6.4-8.2)
== END 2024-02-01 15:48 | disposition home or self-care (01) ==
LOC: NCHCN 15:47
PROVIDERS: PCP Family Medicine; Visit Provider Student in an Organized Health Care Education/Training Program
DX: I10 Essential (primary) hypertension (principal)
CPT/HCPCS: 80053; 84443

== ENCOUNTER → 2024-02-26 02:41 | Outpatient (CLI) | payer MEDICARE, MEDICAID, SELFPAY ==
--- NOTE | 2024-02-26 | DI.CT_ITS ---
Exam(s) CT CHEST WO EXAM: CT CHEST WO CLINICAL HISTORY: R93.89 Abn findings on DI of other body structures, Former smoker, HX. TECHNIQUE: Multi planar reconstructions were performed. CONTRAST MATERIAL: None COMPARISON: CT CT ABDOMEN PELVIS W from 05/27/[address] CHEST WO from 04/20/2023 FINDINGS: CHEST: LUNGS: Small benign bulla in the peripheral aspect of the right upper lobe is unchanged. Small 2 mil limeter nodule in the peripheral aspect of the right upper lobe is also unchanged. Previously descri bed subpleural increased markings in the right lower lobe have slightly decreased but not completely resolved. There is no right pleural effusion. On the opposite-left side the subpleural increased markings in the lingular segment are unchanged. A lso unchanged are the subpleural increased markings in the left lower lobe. There is, however, a new nodule in the left lower lobe which measures 4 mm, (series 2/image 37). The more prominent nodular infiltrate in the lateral basal segment of the left lower lobe seen on 02/2023 have mostly resolved. MEDIASTINUM: Slightly prominent mediastinal fat lymph nodes again noted. Slightly prominent subcarin al lymph nodes again noted.No axillary nor supraclavicular adenopathy. CARDIAC: Heart size is normal. There is no pericardial effusion.Caliber of the thoracic aorta is wit hin upper normal limits. VISUALIZED UPPER ABDOMEN:There is mild splenomegaly noted. OSSEOUS: No significant osseous lesions.No fractures.. IMPRESSION: 1. The previously described findings on chest CT scan of 04/20/2023 a relatively stable. However, th ere is a new 4 millimeter nodule in the left lower lobe. Requires close follow-up. 2. Previously present nodular infiltrate in the left lower lobe has mostly resolved. 3. Persistent subpleural mild infiltrates bilaterally. No pleural effusions. 4. Mildly increased intrathoracic lymph nodes again noted. RADIATION DOSE DELIVERED: 487.57mGy.cm Total DLP DATA REPOSITORY: All CT scans at this facility are submitted to the National Radiology Data Registry (NRDR) Dose Index Registry (DIR) with the [employer] (ACR). RADIATION OPTIMIZATION: All CT scans at this facility use at least one of these dose optimization te chniques: automated exposure control; mA and/or kV adjustment per patient size (includes targeted exa ms where dose is matched to clinical indication); or iterative reconstruction.
== END ==
PROVIDERS: PCP Family Medicine; Visit Provider Student in an Organized Health Care Education/Training Program
DX: R93.89 Abnormal findings on diagnostic imaging of other specified body structures (principal); M17.12 Unilateral primary osteoarthritis, left knee
CPT/HCPCS: 20610; 71250; J1010

== ENCOUNTER 2024-02-28 03:55 | Outpatient (CLI) | payer MEDICARE, MEDICAID, SELFPAY ==
[2024-02-28 14:18] LABS: Abs Immature Grans 0.03 10^3/uL (0.0-0.06); Absolute Basophil Count 0.03 10^3/uL (0.0-0.2); Absolute Eosinophil Count 0.12 10^3/uL (0.0-0.7); Absolute Lymphocyte Count 1.07 10^3/uL (1.2-3.4); Absolute Monocyte Count 0.51 10^3/uL (0.1-0.8); Basophils % 0.4 %; Eosinophils % 1.6 %; HCT 38.7 % (36.0-46.0); HGB 13.2 g/dL (11.2-15.7); Immature Grans % 0.4 %; MCH 27.7 pg (27.0-33.0); MCHC 34.1 % (32.0-36.0); MCV 81 fL (80-95); MPV 8.8 fL (8.0-11.0); Monocytes % 6.7 %; Neutrophils % 76.9 %; Platelet Count 257 10^3/uL (130-400); RBC 4.76 10^6/uL (3.93-5.22); RDW 13.2 % (11.7-14.6); RDW-SD 39.2 fL; WBC 7.66 10^3/uL (4.4-10.8)
[2024-02-28 14:34] LABS: ALT 25 U/L (14-59); AST 16 U/L (15-37); Albumin 3.7 g/dL (3.4-5.0); Alkaline Phosphatase 85 U/L (46-116); Anion Gap 8.4 mmol/L (3-11); BUN 17 mg/dL (7-18); Bilirubin, Total 0.45 mg/dL (0.2-1.0); CO2 28.6 mmol/L (21.0-32.0); CREATININE 0.9 mg/dL (0.55-1.02); Calcium 7.6 mg/dL (8.5-10.1); Chloride 105 mmol/L (98-107); Estimated GFR 72.73 (mL/min/1.73m2); Glucose 96 mg/dL (74-106); LDH 223 U/L (81-234); Potassium 3.4 mmol/L (3.5-5.1); Sodium 142 mmol/L (136-145); Total Protein 6.7 g/dL (6.4-8.2)
[2024-02-29 09:39] LABS: IgA 48 mg/dL (85-499); IgG 528 mg/dL (610-1616); IgM 375 mg/dL (35-242); Kappa Free Light Chain 3.23 mg/dL (0.33-1.94); Lambda Free Light Chain 1.53 mg/dL (0.57-2.63)
[2024-02-29 14:13] LABS: Albumin 65.1 % (55.8-66.1); Albumin g/dL 4.1 g/dL (3.6-5.2); Total Protein 6.3 g/dL (6.3-8.2)
== END 2024-02-28 03:56 | disposition home or self-care (01) ==
LOC: LBO 03:55
PROVIDERS: PCP Student in an Organized Health Care Education/Training Program; Visit Provider Internal Medicine Hematology & Oncology
DX: E85.4 Organ-limited amyloidosis (principal); L99 Other disorders of skin and subcutaneous tissue in diseases classified elsewhere
CPT/HCPCS: 36415; 80053; 82784; 83615; 83883; 84165; 85025

== ENCOUNTER 2024-05-09 16:01 | Outpatient (REF) | payer MEDICARE, MEDICAID, SELFPAY ==
[2024-05-09 16:15] LABS: Calculated LDL 191 mg/dL (<100); Cholesterol 283 mg/dL (<200); HDL Cholesterol 51 mg/dL (40-60); Triglyceride 208 mg/dL (<150)
== END 2024-05-09 16:02 | disposition home or self-care (01) ==
LOC: NCHCN 16:01
PROVIDERS: PCP Student in an Organized Health Care Education/Training Program; Visit Provider Student in an Organized Health Care Education/Training Program
DX: Z13.220 Encounter for screening for lipoid disorders (principal)
CPT/HCPCS: 80061

== ENCOUNTER 2024-05-20 14:18 | Emergency (ER) | payer MEDICARE, MEDICAID, SELFPAY ==
[2024-05-20 14:20] VITALS: BP 167/84; PULSE 66; RESP 14; TEMP 35.8; O2SAT 98
--- NOTE | 2024-05-20 14:30 | DI.CT_ITS ---
Exam(s) CT ABDOMEN PELVIS W EXAM: CT ABDOMEN PELVIS W CLINICAL HISTORY: lower abd pain, vaginal discharge. TECHNIQUE: Imaging Protocol: Axial computed tomography images with coronal and sagittal reformatted images were created and reviewed CONTRAST MATERIAL: Intravenous: Omnipaque 350 Contrast volume:100 ml Oral: / no COMPARISON: No exams were available for comparison FINDINGS: ABDOMEN and PELVIS: Lung Bases: No acute findings. Liver: Normal density. No suspicious mass. Gallbladder and biliary tract: No radiodense calculus. No biliary dilation. Pancreas: Normal density. No abnormal calcifications or inflammatory process. No evidence of mass. Spleen: Normal. Kidneys: Normal size, contour and axis. No radiodense stones. No obstructive uropathy. No suspicious masses seen. Adrenal glands: No masses seen. Vasculature: Abdominal aorta non-dilated. Soft tissues: Unremarkable. Bladder: No gross wall thickening. No calculi.No focal mass. Bowel: No obstruction. No bowel wall thickening. Appendix normal. Descending and sigmoid diverticu losis. No evidence of diverticulitis. Normal quantity of stool. Peritoneal cavity: No ascites. No focal collection. No mesenteric inflammatory response. Bones: Degenerative changes and mild scoliosis. Reproductive organs: Hysterectomy. No vaginal abnormality visible. Lymph nodes: No pathologically enlarged lymph nodes. IMPRESSION:: No acute abnormality in the abdomen or pelvis. RADIATION DOSE DELIVERED: Total DLP DATA REPOSITORY: All CT scans at this facility are submitted to the National Radiology Data Registry (NRDR) Dose Index Registry (DIR) with the [employer] (ACR). RADIATION OPTIMIZATION: All CT scans at this facility use at least one of these dose optimization te chniques: automated exposure control; mA and/or kV adjustment per patient size (includes targeted exa ms where dose is matched to clinical indication); or iterative reconstruction.
--- NOTE | 2024-05-20 14:38 | ED.GENADUL_ITS ---
Discharge Plan Disposition Patient Disposition: Home Condition: Stable Discharge Details Clinical Impression: Abdominal pain of unknown etiology, Lupus, HTN (hypertension), Colovaginal fistula, Antiphospholipid syndrome Primary Care Provider: Randy Mauricio ED Provider: Nicole Peña Home Meds and New Rx's Prescriptions: No Action ibuprofen 600 mg tablet 600 mg PO Q8H PRN (Reason: pain) Qty: 60 3RF albuterol sulfate [ProAir HFA] 90 mcg/actuation HFA aerosol inhaler 2 puff Inhalation Q6H PRN (Reason: shortness of breath) hydroxychloroquine 200 MG tablet 200 mg PO DAILY Qty: 30 levothyroxine 125 MCG tablet 125 mcg PO HS simvastatin 20 MG tablet 20 mg PO DAILY calcium carbonate [Oyster Shell Calcium] 500 mg calcium (1,250 mg) Tablet 500 mg PO DAILY losartan-hydrochlorothiazide 100-12.5 mg Tablet 1 tab PO DAILY pramipexole 0.25 mg Tablet 0.25 mg PO QHS acetaminophen 500 mg tablet 1,000 mg PO Q8H PRN (Reason: pain) Qty: 90 3RF gabapentin 400 mg capsule 400 mg PO BID Patient Comments: TAKE ONE CAPSULE BY MOUTH TWICE A DAY aspirin 81 mg Tablet,Delayed Release (Dr/Ec) 81 mg PO DAILY Discharge Instructions Instructions: Abdominal Pain, Adult ED Additional Instructions: You were seen in the emergency department today for evaluation of lower abdominal pain for the last 2 weeks. In our department you have a full physical examination performed, had laboratory studies that were reassuring, and had a CT scan that did not show any abnormalities that would require emergent surgery or for you to be admitted to the hospital. Sometimes, we are unfortunately unable to determine the exact cause of symptoms in the emergency department setting, and next steps in workup will occur in the primary care environment. You need to contact your primary care doctor to schedule an appointment for reevaluation and to discuss next steps in management. You should return to the emergency department if you develop fever or chills, stop passing stool or flatus for greater than 24 hours, have sudden change or worsening in your abdominal pain, or any other symptoms that cause you concern. Thank you for allowing us to be part of your care. HPI General Mode of arrival: ambulatory . Date/Time Provider Initiated Documentation: 05/20/24 14:21 . Limitations to Documentation: no limitations . Information obtained by: patient and old records reviewed . HPI Narrative: HPI: This is a 64-year-old female patient with a past medical history most notable for diverticulitis, hysterectomy, complicated by fistula of the colon and vaginal cuff, history of GERD, lupus and antiphospholipid syndrome, who is presenting for evaluation of 2 weeks of bilateral left greater than right lower abdominal pain as well as a new vaginal discharge. The patient reports that she has noticed this pain that is mild but persistent, often responds to Tylenol or ibuprofen. She has noted a bernard red/brown discharge from her vagina, which caused her concern. The patient states that she has otherwise been feeling well, with no fevers, chills, nausea or vomiting, changes in oral intake, dysuria, diarrhea, or constipation. The patient reports that she has not engaged in sexual intercourse in several years and has a very low concern for STIs. Reports that she was once told that she was would likely need a colostomy due to her fistula, which would not be within her goals of care. The patient reports that the reason for seeking care today was because of the duration of symptoms as well as the failure of ibuprofen to improve her pain today. Reports last colonoscopy greater than 10 years ago. Exam: Gen: Awake and alert, in no apparent distress HEENT: Non-icteric sclera Neck: Supple Lungs: No apparent respiratory distress, normal respiratory effort. CV: Appears well perfused, strong distal pulses Abdomen: Non-distended, soft, minimal tenderness to palpation in the right and left lower quadrants without rigidity, rebound, or guarding. The patient has no overlying skin changes. MSK: Moves 4 extremities without apparent limitation in ROM Skin: Visualized skin without rashes, cyanosis. Neuro: Normal Gait, no obvious focal deficits or facial asymmetry. Speaks in full, clear sentences. Psych: Appropriate for situation. MDM: This is a 64-year-old female patient presenting for evaluation of bilateral lower abdominal pain. My differential includes but is not limited to intra- abdominal abnormalities including fistula, dehiscence of the vaginal cuff, consider diverticulitis, appendicitis, ovarian abnormalities including torsion, cyst, mass. I have a low concern for PID/TOA in this nonsexually active person, considered urinary tract infection, renal stones. The location of the pain is less concerning for cholecystitis, pancreatitis, gastritis. Patient has no personal history of aortic pathology to suggest aortic aneurysm. The patient has passed the stool within the last hour, making bowel obstruction less likely. Certainly considered malignancy, given her extended period of time since last screening. Exam is less concerning for mesenteric ischemia that this was certainly considered. We will obtain laboratory studies to include CBC, CMP, lipase, lactate, and urinalysis. I will provide the patient with a Tylenol for initial symptomatic management. Will obtain a CT abdomen pelvis with contrast to better characterize any abnormalities that could account for the patient's symptoms. ED Course: I independently interpreted the laboratory studies, which show no significant leukocytosis, anemia, or thrombocytopenia. The chemistry panel is without evidence of electrolyte abnormality, kidney dysfunction, or liver injury. Lactate is low as is lipase. Urinalysis with trace blood but no evidence of infectious findings such as pyuria or bacteria, in the absence of symptoms would not empirically treat based on this urinalysis. Independently interpreted the patient's CT imaging, which does not show any acute abnormalities to explain the patient's symptoms, and is specifically without evidence of diverticulitis, air in the urinary tract system suggestive of extension of fistula, or other specific abnormalities/findings. On reassessment the patient reports that her pain has slightly improved with the Tylenol, and she was advised that she will need to follow-up with her primary care provider to discuss next steps in workup and management given her reassuring emergency department workup today. At this time, the patient has had a full medical evaluation and is safe for discharge to home. They are hemodynamically stable, ambulatory, and tolerating PO. They are understanding of the follow-up plan and return precautions. They left our facility without incident. Nicole Peña MD Related Data Home Medications ?Medication ?Instructions ?Recorded ?Confirmed simvastatin 20 mg tablet 20 mg PO DAILY 11/15/12 05/20/24 hydroxychloroquine 200 mg tablet 200 mg PO DAILY #30 tab-caps 11/16/16 05/20/24 levothyroxine 125 mcg tablet 125 mcg PO HS 05/25/17 05/20/24 albuterol sulfate 90 mcg/actuation 2 puff inhalation Q6H PRN 10/04/18 05/20/24 aerosol inhaler (ProAir HFA) shortness of breath calcium carbonate (Oyster Shell 500 mg PO DAILY 07/05/19 05/20/24 Calcium) losartan 100 1 tab PO DAILY 07/05/19 05/20/24 mg-hydrochlorothiazide 12.5 mg tablet pramipexole 0.25 mg tablet 0.25 mg PO QHS 07/05/19 05/20/24 acetaminophen 500 mg tablet 1,000 mg (2 x 500 mg) PO Q8H PRN 07/17/19 05/20/24 pain #90 tabs aspirin 81 mg tablet,delayed 81 mg PO DAILY 05/08/20 05/20/24 release ibuprofen 600 mg tablet 600 mg PO Q8H PRN pain #60 tabs 08/17/23 05/20/24 gabapentin 400 mg capsule 400 mg PO BID 05/20/24 05/20/24 Previous Rx's ?Medication ?Instructions ?Recorded acetaminophen 500 mg tablet 1,000 mg (2 x 500 mg) PO Q8H PRN 07/17/19 pain #90 tabs ibuprofen 600 mg tablet 600 mg PO Q8H PRN pain #60 tabs 08/17/23 Allergies Allergy/AdvReac Type Severity Reaction Status Date / Time oxycodone (From Percocet) AdvReac Intermediate Nausea Verified 05/20/24 14:24 General Stated Complaint: Abd Prob PRISCILLA: 3 Course Vital Signs Vital signs: Vital Signs Temperature 35.8 C L 05/20/24 14:20 Pulse 66 05/20/24 14:20 Respiratory Rate 14 05/20/24 14:20 Blood Pressure 167/84 H 05/20/24 14:20 Pulse Oximetry 98 05/20/24 14:20 Temperature 35.8 C L 05/20/24 14:20 Temperature Source Skin 05/20/24 14:20 Pulse 66 05/20/24 14:20 Respiratory Rate 14 05/20/24 14:20 Respiratory Effort Normal, Non-Labored 05/20/24 14:23 Blood Pressure 167/84 H 05/20/24 14:20 Blood Pressure Position Sitting 05/20/24 14:20 Pulse Oximetry 98 05/20/24 14:20 Oxygen Delivery Method Room Air 05/20/24 14:20 Oxygen Flow Rate 0 05/20/24 14:20 Pain Level 3 05/20/24 14:20 Medical Decision Making Quality:SDOH Health Related Social Needs: No Data to Display PFSH All Active Problems (Updated 05/20/24 @ 16:26 by Nicole Peña MD) Abdominal pain of unknown etiology (Acute) Left knee DJD (Chronic) 80 mg Depo-medrol injection: 02/26/2024; 11/27/2023; 08/17/23 Headache (Acute) Urinary tract infection (Acute) Colovaginal fistula (Acute) Diverticulitis of sigmoid colon (Acute) Amyloidosis (Chronic) Herniated nucleus pulposus, lumbar (Chronic) Antiphospholipid syndrome (Chronic) Trigger thumb of right hand (Acute) Trigger thumb of left hand (Chronic) Nasal vestibulitis (Acute 11/02/17) Nasal congestion (Acute 06/19/14) Deviated nasal septum (Acute 06/19/14) Cephalgia (Acute 11/20/14) Constipation (Chronic) as above HTN (hypertension) (Chronic) GERD (gastroesophageal reflux disease) (Chronic) stable Lupus (Chronic) Medical History Normal colonoscopy [place] 11/13/[address] 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, severe diverticular dz, repeat 10 years. 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
[2024-05-20 14:55] LABS: Lactate 0.5 mmol/L (0.6-1.4)
[2024-05-20 14:56] LABS: Abs Immature Grans 0.02 10^3/uL (0.0-0.06); Absolute Basophil Count 0.04 10^3/uL (0.0-0.2); Absolute Eosinophil Count 0.17 10^3/uL (0.0-0.7); Absolute Monocyte Count 0.57 10^3/uL (0.1-0.8); Absolute Neutrophil Count 7.01 10^3/uL (1.2-6.7); Basophils % 0.5 %; HCT 41.6 % (36.0-46.0); HGB 14.1 g/dL (11.2-15.7); Immature Grans % 0.2 %; MCHC 33.9 % (32.0-36.0); MCV 83 fL (80-95); MPV 8.9 fL (8.0-11.0); Monocytes % 6.9 %; Neutrophils % 84.4 %; Platelet Count 236 10^3/uL (130-400); RBC 5.04 10^6/uL (3.93-5.22); RDW 13.2 % (11.7-14.6); RDW-SD 39.6 fL; WBC 8.31 10^3/uL (4.4-10.8)
[2024-05-20] MEDS: Acetaminophen 500 MG TAB 1000 MG PO (14:57)
[2024-05-20 15:22] LABS: ALT 24 U/L (14-59); AST 21 U/L (15-37); Albumin 3.6 g/dL (3.4-5.0); Alkaline Phosphatase 103 U/L (46-116); Anion Gap 7.1 mmol/L (3-11); BUN 15 mg/dL (7-18); Bilirubin, Total 0.41 mg/dL (0.2-1.0); CO2 29.9 mmol/L (21.0-32.0); CREATININE 0.9 mg/dL (0.55-1.02); Calcium 8.5 mg/dL (8.5-10.1); Chloride 104 mmol/L (98-107); Estimated GFR 72.28 (mL/min/1.73m2); Glucose 92 mg/dL (74-106); Lipase 45 U/L (16-77); Potassium 3.7 mmol/L (3.5-5.1); Sodium 141 mmol/L (136-145); Total Protein 6.9 g/dL (6.4-8.2)
[2024-05-20] MEDS: Omnipaque 350 MG/ML 100 ML BTL IJ (15:43)
[2024-05-20] MEDS: Normal Saline - Diluent 50 ML VIAL IJ (15:44)
[2024-05-20 16:12] LABS: Bilirubin Negative (Negative); Blood Trace-intact (Negative); Clarity Clear (Clear); Glucose Negative (Negative); Ketones Negative (Negative); Leukocyte Esterase Trace (Negative); Nitrite Negative (Negative); Urobilinogen 0.2 mg/dL (Up to 0.2)
[2024-05-20 16:18] LABS: Bacteria Negative HPF (Negative); C & S Indicated? No; Crystals Negative HPF (Negative); Epithelial Cells Rare HPF (Negative); Mucus Negative (Negative); WBC 0-2 HPF (0-5)
[2024-05-20 16:21] VITALS: BP 166/61; PULSE 59; TEMP 36.2; O2SAT 96
== END 2024-05-20 16:26 | disposition home or self-care (01) ==
PROVIDERS: Emergency Provider Emergency Medicine; PCP Student in an Organized Health Care Education/Training Program
DX: R10.30 Lower abdominal pain, unspecified (principal); N89.8 Other specified noninflammatory disorders of vagina; N82.3 Fistula of vagina to large intestine; M32.9 Systemic lupus erythematosus, unspecified; I10 Essential (primary) hypertension; D68.61 Antiphospholipid syndrome; Z79.82 Long term (current) use of aspirin
CPT/HCPCS: 36415; 80053; 83690; 99285; 74177; 81003; 81015; 83605; 83735; 85025; 99284; J3490

== ENCOUNTER → 2024-05-30 14:16 | Outpatient (BNVA) | payer MEDICARE, MEDICAID, SELFPAY | PROVIDERS: PCP Student in an Organized Health Care Education/Training Program; Referring Provider Student in an Organized Health Care Education/Training Program; Visit Provider Physician Assistant | DX: M17.12 Unilateral primary osteoarthritis, left knee (principal) | CPT/HCPCS: 20610; J1010 ==

== ENCOUNTER → 2024-08-29 13:16 | Outpatient (BNVA) | payer MEDICARE, MEDICAID, SELFPAY | PROVIDERS: PCP Student in an Organized Health Care Education/Training Program; Referring Provider Student in an Organized Health Care Education/Training Program; Visit Provider Student in an Organized Health Care Education/Training Program | DX: M17.12 Unilateral primary osteoarthritis, left knee (principal) | CPT/HCPCS: 20610; J1010 ==

== ENCOUNTER 2024-09-20 12:26 | Emergency (ER) | payer MEDICARE, MEDICAID, SELFPAY ==
[2024-09-20 12:31] VITALS: BP 135/80; PULSE 75; RESP 18; TEMP 37.3; O2SAT 93
[2024-09-20 12:34] VITALS: BP 135/80; PULSE 75; RESP 18; TEMP 37.3; O2SAT 93
[2024-09-20] MEDS: Acetaminophen 325 MG TAB 650 MG PO (13:36)
[2024-09-20] MEDS: predniSONE 20 MG TAB 40 MG PO (13:36)
[2024-09-20] MEDS: Albuterol/Ipratropium 3 ML UPD VIAL UPD (13:36)
[2024-09-20 14:13] LABS: COVID-19 PCR Negative (Negative); Influenza A PCR Positive (Negative); Influenza B PCR Negative (Negative); RSV PCR Negative (Negative)
[2024-09-20 14:14] LABS: Source Nasopharynx
--- NOTE | 2024-09-20 14:20 | DI.RAD_ITS ---
Exam(s) XR CHEST 2V PA LATERAL EXAM: XR CHEST 2V PA LATERAL CLINICAL HISTORY: cough, sob TECHNIQUE: 2D digital imaging was performed. Two views. COMPARISON: CR XR CHEST 2V PA LATERAL from 02/01/[address] CHEST WO from 02/26/2024 FINDINGS: HEART: Normal size. Aorta: Not dilated. PULMONARY VASCULATURE: Normal. MEDIASTINUM: Unremarkable. LUNGS: Clear. PLEURAL SPACE: No pleural effusion or pneumothorax. BONE:Unremarkable for age. SOFT TISSUES: Unremarkable. IMPRESSION: No acute abnormality. DATA REPOSITORY: RADIATION DOSE DELIVERED:
[2024-09-20 15:00] VITALS: BP 135/80; PULSE 75; RESP 15; RESP 18; TEMP 37.3; O2SAT 93
--- NOTE | 2024-09-20 16:05 | ED.GENADUL_ITS ---
Discharge Plan Disposition Patient Disposition: Home Condition: Stable Discharge Details Clinical Impression: Influenza A Primary Care Provider: Randy Mauricio ED Provider: Kerri Guerra Home Meds and New Rx's Prescriptions: New prednisone 20 mg tablet 40 mg PO DAILY Qty: 10 0RF Continued ibuprofen 600 mg tablet 600 mg PO Q8H PRN (Reason: pain) Qty: 60 3RF albuterol sulfate [ProAir HFA] 90 mcg/actuation HFA aerosol inhaler 2 puff Inhalation Q6H PRN (Reason: shortness of breath) hydroxychloroquine 200 MG tablet 200 mg PO DAILY Qty: 30 levothyroxine 125 MCG tablet 125 mcg PO HS simvastatin 20 MG tablet 20 mg PO DAILY calcium carbonate [Oyster Shell Calcium] 500 mg calcium (1,250 mg) Tablet 500 mg PO DAILY losartan-hydrochlorothiazide 100-12.5 mg Tablet 1 tab PO DAILY pramipexole 0.25 mg Tablet 0.25 mg PO QHS acetaminophen 500 mg tablet 1,000 mg PO Q8H PRN (Reason: pain) Qty: 90 3RF gabapentin 400 mg capsule 400 mg PO BID Patient Comments: TAKE ONE CAPSULE BY MOUTH TWICE A DAY aspirin 81 mg Tablet,Delayed Release (Dr/Ec) 81 mg PO DAILY Discharge Instructions Instructions: Flu, Adult ED Additional Instructions: Take prednisone as prescribed Use your inhaler 2 puffs every 4-6 hours as needed for cough, wheeze, shortness of breath Supportive care with Tylenol Please be reevaluated in 48 to 72 hours should you have new or worsening symptoms please return for reassessment earlier Referrals: Randy Mauricio [Primary Care Provider] - 2 days HPI General Date/Time Provider Initiated Documentation: 09/20/24 13:26 . HPI Narrative: The patient is a 64-year-old female with a history of amyloidosis, antiphospholipid syndrome, lupus, immunosuppression with Plaquenil, and hypertension, presenting with a report of coughing, myalgias, and fatigue for the past 6 to 7 days. She reports no known sick contacts at her workplace. She does not endorse any significant chest pain unless she is coughing. There is no calf pain or sw elling. She also does not report any rashes or lesions. She has a history of asthma, for which she uses an inhaler at home. She does not have any additional complaints at this time. Related Data Home Medications ?Medication ?Instructions ?Recorded ?Confirmed simvastatin 20 mg tablet 20 mg PO DAILY 11/15/12 09/20/24 hydroxychloroquine 200 mg tablet 200 mg PO DAILY #30 tab-caps 11/16/16 09/20/24 levothyroxine 125 mcg tablet 125 mcg PO HS 05/25/17 09/20/24 albuterol sulfate 90 mcg/actuation 2 puff inhalation Q6H PRN 10/04/18 09/20/24 aerosol inhaler (ProAir HFA) shortness of breath calcium carbonate (Oyster Shell 500 mg PO DAILY 07/05/19 09/20/24 Calcium) losartan 100 1 tab PO DAILY 07/05/19 09/20/24 mg-hydrochlorothiazide 12.5 mg tablet pramipexole 0.25 mg tablet 0.25 mg PO QHS 07/05/19 09/20/24 acetaminophen 500 mg tablet 1,000 mg (2 x 500 mg) PO Q8H PRN 07/17/19 09/20/24 pain #90 tabs aspirin 81 mg tablet,delayed 81 mg PO DAILY 05/08/20 09/20/24 release ibuprofen 600 mg tablet 600 mg PO Q8H PRN pain #60 tabs 08/17/23 09/20/24 gabapentin 400 mg capsule 400 mg PO BID 05/20/24 09/20/24 prednisone 20 mg tablet 40 mg (2 x 20 mg) PO DAILY #10 tabs 09/20/24 Previous Rx's ?Medication ?Instructions ?Recorded acetaminophen 500 mg tablet 1,000 mg (2 x 500 mg) PO Q8H PRN 07/17/19 pain #90 tabs ibuprofen 600 mg tablet 600 mg PO Q8H PRN pain #60 tabs 08/17/23 prednisone 20 mg tablet 40 mg (2 x 20 mg) PO DAILY #10 tabs 09/20/24 Allergies Allergy/AdvReac Type Severity Reaction Status Date / Time No Known Allergies Allergy Verified 09/20/24 12:33 General Stated Complaint: GenMedical PRISCILLA: 3 Exam Narrative Exam Narrative: General Appearance: Patient is alert and oriented, not in acute distress. Vital signs: Within normal limits. HEENT: Uvula is midline, oropharynx is patent, mucous membranes are moist. Respiratory: Wheezes are present throughout the lungs and breath sounds are mildly diminished. Patient is not in significant respiratory distress. Cardiovascular: Cardiac rate and rhythm are regular. Back, Musculoskeletal: No peripheral edema. Skin: Warm and dry, no rash. Neurological: Normal. Course Vital Signs Vital signs: Vital Signs Temperature 37.3 C 09/20/24 12:31 Pulse 75 09/20/24 12:31 Respiratory Rate 18 09/20/24 12:31 Blood Pressure 135/80 09/20/24 12:31 Pulse Oximetry 93 09/20/24 12:31 Temperature 37.3 C 09/20/24 15:00 Temperature Source Oral 09/20/24 12:34 Pulse 75 09/20/24 15:00 Respiratory Rate 15 09/20/24 15:00 Respiratory Effort Normal 09/20/24 15:00 Respiratory Depth Normal 09/20/24 15:00 Respiratory Pattern Normal 09/20/24 15:00 Blood Pressure 135/80 09/20/24 15:00 Pulse Oximetry 93 09/20/24 15:00 Lab/Test Results Lab/Test Results: Laboratory Tests Range/Units 09/20/24 13:30 COVID-19 Source Nasopharynx SARS-CoV-2 (PCR) (Negative) Negative Influenza Type A (PCR) (Negative) Positive A Influenza Type B (PCR) (Negative) Negative RSV (PCR) (Negative) Negative Medical Decision Making Initial Assessment: 64-year-old female with history of amyloidosis, antiphospholipid syndrome, lupus, hypertension, and asthma. Presents with coughing, myalgias, and fatigue for 6 to 7 days. No significant chest pain unless coughing. No calf pain or swelling. No rashes or lesions. Alert and oriented, in no acute distress, wheezes throughout, mildly diminished breath sounds, regular cardiac rate and rhythm, no peripheral edema, uvula midline, oropharynx patent, moist mucous membranes. Differential Diagnosis: - Influenza A: Positive result from panel. Symptomatic for 6 days, does not meet criteria for Tamiflu. Plan: Steroid regimen due to asthma history and exacerbating symptoms, including bronchospasm and wheezing. Use inhaler 2 puffs every 4-6 hours. Continue hydration at home. Seek immediate medical attention if symptoms worsen or new complaints arise. ED Course: - Chest x-ray ordered due to immunocompromised state and longevity of symptoms. - Panels for influenza, COVID-19, and RSV conducted. - Positive result for influenza A. - Chest x-ray reviewed by me, no evidence of acute bacterial source of symptoms. - Steroid regimen initiated. - Inhaler use instructed: 2 puffs every 4-6 hours. - Advised continued hydration at home. - Encouraged to return immediately if new or worsening complaints. Final Assessment: Positive influenza A with no acute bacterial source on chest x-ray. Initiated steroid regimen and instructed inhaler use due to asthma history and exacerbating symptoms. Advised hydration and to seek immediate medical attention if symptoms worsen. Clinical Impression: - Influenza A Disposition: - Discharge MDM Components Evaluation: - Number of Differential Diagnoses or Management Options: Influenza A - Amount and Complexity of Data Reviewed: Chest x-ray, influenza, COVID-19, and RSV panels - Risk of Complication and Morbidity or Mortality: High due to immunocompromised state and history of asthma. Quality:[facility] Health Related Social Needs: No Data to Display PFSH All Active Problems (Updated 09/20/24 @ 14:44 by KOLE Killian) Influenza A (Acute) Left knee DJD (Chronic) 80 mg Depo-medrol injection: 08/29/24; 05/30/2024; 02/26/2024; 11/27/2023; 08/17/23 Headache (Acute) Urinary tract infection (Acute) Colovaginal fistula (Acute) Diverticulitis of sigmoid colon (Acute) Amyloidosis (Chronic) Herniated nucleus pulposus, lumbar (Chronic) Antiphospholipid syndrome (Chronic) Trigger thumb of right hand (Acute) Trigger thumb of left hand (Chronic) Nasal vestibulitis (Acute 11/02/17) Nasal congestion (Acute 06/19/14) Deviated nasal septum (Acute 06/19/14) Cephalgia (Acute 11/20/14) Constipation (Chronic) as above HTN (hypertension) (Chronic) GERD (gastroesophageal reflux disease) (Chronic) stable Lupus (Chronic) Medical History Normal colonoscopy [place] 11/13/[address] 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 mg Hypocalcemia Asthma Allergic rhinitis Abnormal mammogram of right breast Degenerative joint disease Hyperlipidemia Pericarditis Eczema Chest wall pain Insomnia Sciatica, left side Surgical History 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) History of bone marrow biopsy S/P thyroidectomy H/O: hysterectomy Tonsillectomy Social History Smoking/Tobacco Use Status: Former Tobacco Use Quit Date: 08/14/99 Smoking risk assessment performed?: Yes Alcohol Intake: current Alcohol Intake frequency: a few times a week Alcohol type: beer and wine Drug use: Never Substance use type: does not use Housing: house Current gender identity: female Do you feel safe at home: Yes Do you feel safe in your relationship?: Yes PAWSS Have you Been Recently Intoxicated or Drunk Within the Last 30 days?: No Have you Ever Experienced Previous Episodes of Alcohol Withdrawal?: No Have you ever Experienced Withdrawal Seizures?: No Have you ever Experienced Delirium Tremens(DT)s?: No Have you ever undergone Alcohol Rehabilitation Treatment (i.e, inpt ot outpatient treatment programs)?: No Have you ever Experienced Blackouts?: No Have you ever Combined Alcohol with other Downers within the last 90 days?: No Have you ever Combined Alcohol with any other Substance of Abuse during the last 90 days?: No Positive Blood Alcohol level on Presentation? [PCS.BAL]: No Evidence of Increased Autonomic Activity (i.e. HR>120, tremor, sweating, agitation, nausea)?: No Result: 0
== END 2024-09-20 15:02 | disposition home or self-care (01) ==
PROVIDERS: Emergency Provider Physician Assistant; PCP Student in an Organized Health Care Education/Training Program
DX: J10.1 Influenza due to other identified influenza virus with other respiratory manifestations (principal); E85.9 Amyloidosis, unspecified; M32.9 Systemic lupus erythematosus, unspecified; I10 Essential (primary) hypertension; Z79.69 Long term (current) use of other immunomodulators and immunosuppressants; Z87.891 Personal history of nicotine dependence
CPT/HCPCS: 87637; 94640; 99285; 71046; 99284; J7512; J7620

== ENCOUNTER 2024-09-23 07:46 | Emergency (ER) | payer MEDICARE, MEDICAID, SELFPAY ==
[2024-09-23 07:52] VITALS: BP 173/68; PULSE 63; RESP 18; TEMP 36.6; O2SAT 95
--- NOTE | 2024-09-23 07:59 | W.ED.GENAD ---
Discharge Plan Disposition Patient Disposition: Home Discharge Details Clinical Impression: Chest pain, unspecified Primary Care Provider: Randy Mauricio ED Provider: Daniel Abernathy Home Meds and New Rx's Prescriptions: New benzonatate 100 mg capsule 100 mg PO BID PRNQty: 7 0RF Continued ibuprofen 600 mg tablet 600 mg PO Q8H PRN (Reason: pain) Qty: 60 3RF albuterol sulfate [ProAir HFA] 90 mcg/actuation HFA aerosol inhaler 2 puff Inhalation Q6H PRN (Reason: shortness of breath) hydroxychloroquine 200 MG tablet 200 mg PO DAILY Qty: 30 levothyroxine 125 MCG tablet 125 mcg PO HS simvastatin 20 MG tablet 20 mg PO DAILY calcium carbonate [Oyster Shell Calcium] 500 mg calcium (1,250 mg) Tablet 500 mg PO DAILY losartan-hydrochlorothiazide 100-12.5 mg Tablet 1 tab PO DAILY pramipexole 0.25 mg Tablet 0.25 mg PO QHS acetaminophen 500 mg tablet 1,000 mg PO Q8H PRN (Reason: pain) Qty: 90 3RF gabapentin 400 mg capsule 400 mg PO BID Patient Comments: TAKE ONE CAPSULE BY MOUTH TWICE A DAY aspirin 81 mg Tablet,Delayed Release (Dr/Ec) 81 mg PO DAILY prednisone 20 mg tablet 40 mg PO DAILY Qty: 10 0RF Discharge Instructions Additional Instructions: You are seen in emerged part for your chest pain. Your blood work showed no sign of heart attack. Your kidneys showed no sign of any injury. Please return to the emergency department if you pass out develop chest pain that is associated with sweating or any other concerns. Otherwise please follow-up with a primary care provider. Discharge Data Discharge Date/Time-TO BE ENTERED AT DEPARTURE: 09/23/24 10:40 HPI General Date/Time Provider Initiated Documentation: 09/23/24 07:59. HPI Narrative: MDM This is overall very well-appearing normothermic and not tachycardic 64-year-old female with shortness of breath chest pain concerning for possibility of ACS for official receive troponin testing at ECG. Given chest pain shortness of breath will obtain D-dimer to rule stratify for PE. No pain or proportion to suggest necrotizing soft tissue infection. No tearing quality to suggest aortic dissection. Equal breath sounds and no trauma making my suspicion low for pneumothorax. Not hypotensive nor dialysis patients without tamponade. No rash to chest to suggest zoster. No history of recent emesis to suggest increased risk for esophageal rupture. Will obtain chest x-ray to assess for pneumonia. ECG showing normal sinus rhythm rate of 64. Interventricular conduction delay. Left axis deviation no signs of LVH. Poor R wave progression. Low voltage. Inferior mild ST segment depressions to inversions in lead III and aVF. Compared to prior dated 2 years ago poor R wave progression is similar. Left axis is similar. T wave inversions are similar. ST segment depressions are slightly more pronounced. 10:26 PM CBC without anemia thrombocytopenia nor leukocytosis. Base metabolic panel reassuring with mild hypocalciummia for which patient will receive oral repletion. Negative D-dimer. Chest x-ray without infiltrate. Patient and I discussed that she should follow-up with her primary care provider return to the emergency department for syncope worsening chest pain or any other concerns. HPI This is a 64-year-old female right emergency department via private vehicle in setting of chest pain. Patient reports she was diagnosed last week with influenza. She was prescribed prednisone. She said that she has pain in her chest and back when she coughs. She has had generalized bodyaches. She denies fevers nausea dysuria frequency and abdominal pain. She denies routine tobacco. She rarely drinks alcohol. She does endorse chills. She says her symptoms have been interfering with her sleep. No recent trauma to chest. No rash. No history of dialysis. Exam General: Well-appearing in no acute distress speaking in complete sentences. Head: Normocephalic, atraumatic. Eye: Extraocular eye movements intact. No conjunctival injection. No scleral icterus. Ear, nose, mouth, throat: Grossly normal inspection. Normal voice, handling secretions normally. Neck: Trachea midline. Cardiovascular: Well-perfused distal extremities. Regular rate and rhythm Respiratory: Nonlabored respiration. Clear lungs bilaterally. Gastrointestinal: Nondistended abdomen. Musculoskeletal: No edema. Moving all 4 extremities spontaneously. Skin: Normal for age and race, grossly normal temperature and turgor. No acute rash. Neurologic: Alert and appropriate, no apparent acute deficits. Psychiatric: Mood and manner are appropriate. Grooming and personal hygiene are appropriate. Related Data Home Medications ?Medication ?Instructions ?Recorded ?Confirmed simvastatin 20 mg tablet 20 mg PO DAILY 11/15/12 09/23/24 hydroxychloroquine 200 mg tablet 200 mg PO DAILY #30 tab-caps 11/16/16 09/23/24 levothyroxine 125 mcg tablet 125 mcg PO HS 05/25/17 09/23/24 albuterol sulfate 90 mcg/actuation 2 puff inhalation Q6H PRN 10/04/18 09/23/24 aerosol inhaler (ProAir HFA) shortness of breath calcium carbonate (Oyster Shell 500 mg PO DAILY 07/05/19 09/23/24 Calcium) losartan 100 1 tab PO DAILY 07/05/19 09/23/24 mg-hydrochlorothiazide 12.5 mg tablet pramipexole 0.25 mg tablet 0.25 mg PO QHS 07/05/19 09/23/24 acetaminophen 500 mg tablet 1,000 mg (2 x 500 mg) PO Q8H PRN 07/17/19 09/23/24 pain #90 tabs aspirin 81 mg tablet,delayed 81 mg PO DAILY 05/08/20 09/23/24 release ibuprofen 600 mg tablet 600 mg PO Q8H PRN pain #60 tabs 08/17/23 09/23/24 gabapentin 400 mg capsule 400 mg PO BID 05/20/24 09/23/24 prednisone 20 mg tablet 40 mg (2 x 20 mg) PO DAILY #10 tabs 09/20/24 09/23/24 benzonatate 100 mg capsule 100 mg PO BID PRN #7 caps 09/23/24 Previous Rx's ?Medication ?Instructions ?Recorded acetaminophen 500 mg tablet 1,000 mg (2 x 500 mg) PO Q8H PRN 07/17/19 pain #90 tabs ibuprofen 600 mg tablet 600 mg PO Q8H PRN pain #60 tabs 08/17/23 prednisone 20 mg tablet 40 mg (2 x 20 mg) PO DAILY #10 tabs 09/20/24 benzonatate 100 mg capsule 100 mg PO BID PRN #7 caps 09/23/24 Allergies Allergy/AdvReac Type Severity Reaction Status Date / Time No Known Allergies Allergy Verified 09/23/24 07:51 General Stated Complaint: RespSymp PRISCILLA: 3 Course Vital Signs Vital signs: Vital Signs Temperature 36.6 C 09/23/24 07:52 Pulse 63 09/23/24 07:52 Respiratory Rate 18 09/23/24 07:52 Blood Pressure 173/68 H 09/23/24 07:52 Pulse Oximetry 95 09/23/24 07:52 Temperature 36.6 C 09/23/24 07:52 Temperature Source Oral 09/23/24 07:52 Pulse 63 09/23/24 07:52 Respiratory Rate 18 09/23/24 07:52 Blood Pressure 173/68 H 09/23/24 07:52 Blood Pressure Position Supine 09/23/24 07:52 Pulse Oximetry 95 09/23/24 07:52 Pain Level 6 09/23/24 07:52 Medical Decision Making Quality:SDOH Health Related Social Needs: No Data to Display PFSH All Active Problems (Updated 09/23/24 @ 10:27 by Daniel Abernathy MD) Chest pain, unspecified (Acute) Influenza A (Acute) Left knee DJD (Chronic) 80 mg Depo-medrol injection: 08/29/24; 05/30/2024; 02/26/2024; 11/27/2023; 08/17/23 Headache (Acute) Urinary tract infection (Acute) Colovaginal fistula (Acute) Diverticulitis of sigmoid colon (Acute) Amyloidosis (Chronic) Herniated nucleus pulposus, lumbar (Chronic) Antiphospholipid syndrome (Chronic) Trigger thumb of right hand (Acute) Trigger thumb of left hand (Chronic) Nasal vestibulitis (Acute 11/02/17) Nasal congestion (Acute 06/19/14) Deviated nasal septum (Acute 06/19/14) Cephalgia (Acute 11/20/14) Constipation (Chronic) as above HTN (hypertension) (Chronic) GERD (gastroesophageal reflux disease) (Chronic) stable Lupus (Chronic) Medical History Normal colonoscopy [place] 11/13/[address] 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
--- NOTE | 2024-09-23 08:15 | RT.EKG_ITS ---
APPROVED REPORT Exam: Resting ECG Reason for Exam: Chest pain Patient Location: E HR:64 bpm ECG Measurements Heart Rate 64 AXIS MD 160 P 55 QRSd 100 QRS -10 QT 430 T -19 QTc 444 Conclusion Sinus rhythm...normal P axis, V-rate 60- 99 Supraventricular bigeminy...bigeminy string>4 w/ SV complexes Probable anterior infarct, age indeterminate...Q >35mS, T neg, V2-V5 No STEMI
[2024-09-23 08:45] LABS: Abs Immature Grans 0.02 10^3/uL (0.0-0.06); Absolute Basophil Count 0.01 10^3/uL (0.0-0.2); Absolute Lymphocyte Count 0.44 10^3/uL (1.2-3.4); Absolute Monocyte Count 0.48 10^3/uL (0.1-0.8); Absolute Neutrophil Count 3.66 10^3/uL (1.2-6.7); Basophils % 0.2 %; HCT 43.7 % (36.0-46.0); HGB 14.2 g/dL (11.2-15.7); Immature Grans % 0.4 %; Lymphocytes % 9.5 %; MCH 27.5 pg (27.0-33.0); MCHC 32.5 % (32.0-36.0); MCV 85 fL (80-95); MPV 9.1 fL (8.0-11.0); Monocytes % 10.4 %; Neutrophils % 79.5 %; Platelet Count 263 10^3/uL (130-400); RBC 5.16 10^6/uL (3.93-5.22); RDW 13.5 % (11.7-14.6); RDW-SD 42.1 fL; WBC 4.61 10^3/uL (4.4-10.8)
--- NOTE | 2024-09-23 09:30 | DI.RAD_ITS ---
Exam(s) XR CHEST 2V PA LATERAL EXAM: XR CHEST 2V PA LATERAL CLINICAL HISTORY: difficulty breathing. TECHNIQUE: 2D digital imaging was performed. COMPARISON: CR XR CHEST 2V PA LATERAL from 09/20/2024 FINDINGS: 2 views: Heart size is upper normal. The mediastinum is not widened. There are no pulmonary infiltrates nor pleural effusions. No Audrey B lines. IMPRESSION: No acute pulmonary findings.No significant radiographic change compared to 09/20/2024. DATA REPOSITORY: RADIATION DOSE DELIVERED:
[2024-09-23 09:46] LABS: BUN 21 mg/dL (7-18); CREATININE 0.9 mg/dL (0.55-1.02); Calcium 7.8 mg/dL (8.5-10.1); Chloride 102 mmol/L (98-107); Estimated GFR 72.28 (mL/min/1.73m2); Glucose 127 mg/dL (74-106); Potassium 3.6 mmol/L (3.5-5.1); Sodium 140 mmol/L (136-145); Troponin I 4 ng/L (<or=51)
[2024-09-23 10:04] LABS: D-Dimer 482 ng/mlFEU (<500)
[2024-09-23] MEDS: Calcium Carbonate *TUMS* 500 MG CHEW 1000 MG PO (10:18)
[2024-09-23 10:23] LABS: Troponin I < 4 ng/L (<or=51)
[2024-09-23 10:33] VITALS: BP 158/72; PULSE 64; RESP 18; TEMP 36.6; O2SAT 98
== END 2024-09-23 10:40 | disposition home or self-care (01) ==
PROVIDERS: Emergency Provider Emergency Medicine; PCP Student in an Organized Health Care Education/Training Program
DX: R07.9 Chest pain, unspecified (principal); R09.89 Other specified symptoms and signs involving the circulatory and respiratory systems; R06.02 Shortness of breath
CPT/HCPCS: 36415; 80048; 93005; 99285; 71046; 84484; 85025; 85379; 93010; 99284

== ENCOUNTER 2024-10-31 15:30 | Emergency (ER) | payer MEDICARE, MEDICAID, SELFPAY ==
[2024-10-31 15:32] VITALS: BP 147/77; PULSE 70; RESP 18; TEMP 36.7; O2SAT 95
[2024-10-31 15:36] VITALS: BP 147/77; PULSE 70; RESP 18; TEMP 36.7; O2SAT 95
--- NOTE | 2024-10-31 20:11 | ED.GENADUL_ITS ---
Discharge Plan Disposition Patient Disposition: Home Condition: Stable Discharge Details Clinical Impression: Cellulitis, Open wound of skin Primary Care Provider: Randy Mauricio ED Provider: Kerri Guerra Home Meds and New Rx's Prescriptions: New mupirocin 2 % ointment 1 applic topical BID Qty: 22 0RF cephalexin 500 mg capsule 500 mg PO Q6H 7 Days Qty: 28 0RF Continued ibuprofen 600 mg tablet 600 mg PO Q8H PRN (Reason: pain) Qty: 60 3RF albuterol sulfate [ProAir HFA] 90 mcg/actuation HFA aerosol inhaler 2 puff Inhalation Q6H PRN (Reason: shortness of breath) hydroxychloroquine 200 MG tablet 200 mg PO DAILY Qty: 30 levothyroxine 125 MCG tablet 125 mcg PO HS simvastatin 20 MG tablet 20 mg PO DAILY calcium carbonate [Oyster Shell Calcium] 500 mg calcium (1,250 mg) Tablet 500 mg PO DAILY losartan-hydrochlorothiazide 100-12.5 mg Tablet 1 tab PO DAILY pramipexole 0.25 mg Tablet 0.25 mg PO QHS acetaminophen 500 mg tablet 1,000 mg PO Q8H PRN (Reason: pain) Qty: 90 3RF gabapentin 400 mg capsule 400 mg PO BID Patient Comments: TAKE ONE CAPSULE BY MOUTH TWICE A DAY aspirin 81 mg Tablet,Delayed Release (Dr/Ec) 81 mg PO DAILY Discharge Instructions Instructions: Cellulitis (Skin Infection), Adult ED Additional Instructions: keep wound clean and dry apply cover to wound when you are wearing socks try to allow to air dry when at home apply mupirocin twice daily take antibiotic as prescribed return earlier with spreading redness, fever worsening pain, Referrals: Randy Mauricio [Primary Care Provider] - 3 days Discharge Data Discharge Date/Time-TO BE ENTERED AT DEPARTURE: 10/31/24 15:48 HPI General Date/Time Provider Initiated Documentation: 10/31/24 15:37 . HPI Narrative: This 8-year-old female with history of amyloidosis antiphospholipid syndrome GERD hypertension diverticulosis presents with report of wound to right lower leg states she thinks she bumped her leg and she has amyloid on the areas that she has had an open wound and she is concerned it is infected as she noticed that it was painful yesterday she thinks she has had the room for 5 days. She denies any fever or chills or additional injuries. She has any chest pain or shortness of breath. Related Data Home Medications ?Medication ?Instructions ?Recorded ?Confirmed simvastatin 20 mg tablet 20 mg PO DAILY 11/15/12 10/31/24 hydroxychloroquine 200 mg tablet 200 mg PO DAILY #30 tab-caps 11/16/16 10/31/24 levothyroxine 125 mcg tablet 125 mcg PO HS 05/25/17 10/31/24 albuterol sulfate 90 mcg/actuation 2 puff inhalation Q6H PRN 10/04/18 10/31/24 aerosol inhaler (ProAir HFA) shortness of breath calcium carbonate (Oyster Shell 500 mg PO DAILY 07/05/19 10/31/24 Calcium) losartan 100 1 tab PO DAILY 07/05/19 10/31/24 mg-hydrochlorothiazide 12.5 mg tablet pramipexole 0.25 mg tablet 0.25 mg PO QHS 07/05/19 10/31/24 acetaminophen 500 mg tablet 1,000 mg (2 x 500 mg) PO Q8H PRN 07/17/19 10/31/24 pain #90 tabs aspirin 81 mg tablet,delayed 81 mg PO DAILY 05/08/20 10/31/24 release ibuprofen 600 mg tablet 600 mg PO Q8H PRN pain #60 tabs 08/17/23 10/31/24 gabapentin 400 mg capsule 400 mg PO BID 05/20/24 10/31/24 cephalexin 500 mg capsule 500 mg PO Q6H 7 days #28 caps 10/31/24 mupirocin 2 % topical ointment 1 applic topical BID #22 grams 10/31/24 Previous Rx's ?Medication ?Instructions ?Recorded acetaminophen 500 mg tablet 1,000 mg (2 x 500 mg) PO Q8H PRN 07/17/19 pain #90 tabs ibuprofen 600 mg tablet 600 mg PO Q8H PRN pain #60 tabs 08/17/23 cephalexin 500 mg capsule 500 mg PO Q6H 7 days #28 caps 10/31/24 mupirocin 2 % topical ointment 1 applic topical BID #22 grams 10/31/24 Allergies Allergy/AdvReac Type Severity Reaction Status Date / Time No Known Allergies Allergy Verified 10/31/24 15:35 General Stated Complaint: Cellulitis PRISCILLA: 3 Exam Narrative Exam Narrative: 64-year-old female alert and oriented no acute distress right lower leg approximately an inch above the ankle on the medial and posterior aspect there approximately dime size wounds which have surrounding erythema approximately 1 inch. Patient is neurovascularly intact without any crepitus or purulent drainage Course Vital Signs Vital signs: Vital Signs Temperature 36.7 C 10/31/24 15:32 Pulse 70 10/31/24 15:32 Respiratory Rate 18 10/31/24 15:32 Blood Pressure 147/77 H 10/31/24 15:32 Pulse Oximetry 95 10/31/24 15:32 Temperature 36.7 C 10/31/24 15:36 Pulse 70 10/31/24 15:36 Respiratory Rate 18 10/31/24 15:36 Blood Pressure 147/77 H 10/31/24 15:36 Pulse Oximetry 95 10/31/24 15:36 Medical Decision Making 64-year-old female presenting with wounds to right lower extremity with surrounding cellulitis, will prescribe mupirocin ointment and Keflex for suspected cellulitis. Very low clinical suspicion for DVT given localized area of redness neurovascularly intact. No indication for imaging as there is no significant trauma to the area. As patient is nontoxic in appearance indication for blood work recheck in 24 to 48 hours encouraged return precautions reviewed and patient expressed understanding Quality:SDOH Health Related Social Needs: No Data to Display PFSH All Active Problems (Updated 10/31/24 @ 15:54 by KOLE Killian) Open wound of skin (Acute) Cellulitis (Acute) Left knee DJD (Chronic) 80 mg Depo-medrol injection: 08/29/24; 05/30/2024; 02/26/2024; 11/27/2023; 08/17/23 Headache (Acute) Urinary tract infection (Acute) Colovaginal fistula (Acute) Diverticulitis of sigmoid colon (Acute) Amyloidosis (Chronic) Herniated nucleus pulposus, lumbar (Chronic) Antiphospholipid syndrome (Chronic) Trigger thumb of right hand (Acute) Trigger thumb of left hand (Chronic) Nasal vestibulitis (Acute 11/02/17) Nasal congestion (Acute 06/19/14) Deviated nasal septum (Acute 06/19/14) Cephalgia (Acute 11/20/14) Constipation (Chronic) as above HTN (hypertension) (Chronic) GERD (gastroesophageal reflux disease) (Chronic) stable Lupus (Chronic) Medical History Normal colonoscopy [place] 11/13/[address] 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 mg Hypocalcemia Asthma Allergic rhinitis Abnormal mammogram of right breast Degenerative joint disease Hyperlipidemia Pericarditis Eczema Chest wall pain Insomnia Sciatica, left side Surgical History 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) History of bone marrow biopsy S/P thyroidectomy H/O: hysterectomy Tonsillectomy Social History Smoking/Tobacco Use Status: Former Tobacco Use Quit Date: 08/14/99 Smoking risk assessment performed?: Yes Alcohol Intake: current Alcohol Intake frequency: a few times a week Alcohol type: beer and wine Drug use: Never Substance use type: does not use Housing: house Current gender identity: female Do you feel safe at home: Yes Do you feel safe in your relationship?: Yes PAWSS Have you Been Recently Intoxicated or Drunk Within the Last 30 days?: No Have you Ever Experienced Previous Episodes of Alcohol Withdrawal?: No Have you ever Experienced Withdrawal Seizures?: No Have you ever Experienced Delirium Tremens(DT)s?: No Have you ever undergone Alcohol Rehabilitation Treatment (i.e, inpt ot outpatient treatment programs)?: No Have you ever Experienced Blackouts?: No Have you ever Combined Alcohol with other Downers within the last 90 days?: No Have you ever Combined Alcohol with any other Substance of Abuse during the last 90 days?: No Positive Blood Alcohol level on Presentation? [PCS.BAL]: No Evidence of Increased Autonomic Activity (i.e. HR>120, tremor, sweating, agitation, nausea)?: No Result: 0
== END 2024-10-31 15:48 | disposition home or self-care (01) ==
LOC: ER 16:23
PROVIDERS: Emergency Provider Physician Assistant; PCP Student in an Organized Health Care Education/Training Program
DX: L03.115 Cellulitis of right lower limb (principal); I10 Essential (primary) hypertension; E78.5 Hyperlipidemia, unspecified; E85.9 Amyloidosis, unspecified; D68.61 Antiphospholipid syndrome; Z79.82 Long term (current) use of aspirin; Z87.891 Personal history of nicotine dependence
CPT/HCPCS: 99283

== ENCOUNTER 2024-11-06 15:21 | Outpatient (REF) | payer MEDICARE, MEDICAID, SELFPAY ==
[2024-11-06 16:44] LABS: Anion Gap 8.8 mmol/L (3-11); BUN 14 mg/dL (7-18); CO2 28.2 mmol/L (21.0-32.0); CREATININE 0.7 mg/dL (0.55-1.02); Calcium 7.8 mg/dL (8.5-10.1); Calculated LDL 107 mg/dL (<100); Chloride 106 mmol/L (98-107); Cholesterol 194 mg/dL (<200); Estimated GFR 97.72 (mL/min/1.73m2); Glucose 101 mg/dL (74-106); HDL Cholesterol 40 mg/dL (>or=50); Sodium 143 mmol/L (136-145); Triglyceride 237 mg/dL (<150); Vitamin D 25 Total 15 ng/mL (30-100)
== END 2024-11-06 15:22 | disposition home or self-care (01) ==
LOC: NCHCN 15:21
PROVIDERS: PCP Student in an Organized Health Care Education/Training Program; Visit Provider Student in an Organized Health Care Education/Training Program
DX: E78.5 Hyperlipidemia, unspecified (principal); E83.51 Hypocalcemia
CPT/HCPCS: 80048; 80061; 82306

== ENCOUNTER 2024-11-19 00:56 | Outpatient (CLI) | payer MEDICARE, MEDICAID, SELFPAY ==
--- NOTE | 2024-11-19 | DI.CT_ITS ---
Exam(s) CT CHEST WO EXAM: CT CHEST WO CLINICAL HISTORY: CT OF CHEST ABNORMAL, R93.89 F/U FROM 02/26/24 NODULE L LOBE 4MM TECHNIQUE: Imaging Protocol: Axial computed tomography images with coronal and sagittal reformatted images were created and reviewed. Computer aided detection (CAD) was utilized. CONTRAST MATERIAL: Intravenous: Omnipaque 350 Contrast volume:structured data ml. COMPARISON: CT CT CHEST WO from 04/20/[address] CHEST WO from 02/26/2024 CR XR CHEST 2V PA LATERAL from 09/23/2024 FINDINGS: Pulmonary parenchyma: No consolidation. No dominant measurable mass. Calcified granuloma lateral rig ht upper lobe. Scattered micro nodules at both posterior lung bases. No suspicious nodules. 4 mill imeter nodule noted at the left lower lobe on the prior exam is not visible on today's study.Stable a reas of scarring in the right middle lobe and lingula. Tracheobronchial tree: No bronchiectasis or mucous plugging. Mediastinum and [place]: No dominant adenopathy or fluid collection. Pleura: No effusion. No pneumothorax. Heart: The heart is mildly dilated. Mild coronary artery calcifications are seen. Aortic valve calc ifications. Aorta: Thoracic aorta non-dilated. Mild atherosclerotic changes. Pulmonary arteries: No gross evidence of emboli. Upper abdomen: No acute findings. Stable enlarged spleen. Bones: Degenerative changes in the spine. Soft tissues: Unremarkable. IMPRESSION: No suspicious pulmonary nodules. Previously noted 4 millimeter nodule at the left lower lobe is not v isualized on the current exam. RADIATION DOSE DELIVERED: 206.55mGy.cm Total DLP DATA REPOSITORY: All CT scans at this facility are submitted to the National Radiology Data Registry (NRDR) Dose Index Registry (DIR) with the [employer] ([employer]). RADIATION OPTIMIZATION: All CT scans at this facility use at least one of these dose optimization te chniques: automated exposure control; mA and/or kV adjustment per patient size (includes targeted exa ms where dose is matched to clinical indication); or iterative reconstruction.
== END 2024-11-19 01:16 ==
LOC: DI 00:56
PROVIDERS: PCP Student in an Organized Health Care Education/Training Program; Visit Provider Student in an Organized Health Care Education/Training Program
DX: R91.8 Other nonspecific abnormal finding of lung field
CPT/HCPCS: 71250

== ENCOUNTER 2024-11-27 12:13 | Emergency (ER) | payer MEDICARE, MEDICAID, SELFPAY ==
[2024-11-27 12:24] VITALS: BP 171/80; PULSE 64; RESP 18; TEMP 36.6; O2SAT 96
[2024-11-27 13:13] VITALS: BP 158/76; PULSE 63; RESP 22; TEMP 36.7; O2SAT 98
[2024-11-27 15:00] VITALS: BP 195/65; PULSE 61; O2SAT 99
[2024-11-27 15:03] VITALS: BP 187/73
--- NOTE | 2024-11-27 16:00 | W.ED.GENAD ---
Discharge Plan Disposition Patient Disposition: Home Condition: Stable Discharge Details Clinical Impression: Petechial rash, HTN (hypertension) Primary Care Provider: Randy Mauricio ED Provider: Evan Whitmore Home Meds and New Rx's Prescriptions: Continued ibuprofen 600 mg tablet 600 mg PO Q8H PRN (Reason: pain) Qty: 60 3RF albuterol sulfate [ProAir HFA] 90 mcg/actuation HFA aerosol inhaler 2 puff Inhalation Q6H PRN (Reason: shortness of breath) hydroxychloroquine 200 MG tablet 200 mg PO DAILY Qty: 30 levothyroxine 125 MCG tablet 125 mcg PO HS simvastatin 20 MG tablet 20 mg PO DAILY calcium carbonate [Oyster Shell Calcium] 500 mg calcium (1,250 mg) Tablet 500 mg PO DAILY losartan-hydrochlorothiazide 100-12.5 mg Tablet 1 tab PO DAILY pramipexole 0.25 mg Tablet 0.25 mg PO QHS acetaminophen 500 mg tablet 1,000 mg PO Q8H PRN (Reason: pain) Qty: 90 3RF gabapentin 400 mg capsule 400 mg PO BID Patient Comments: TAKE ONE CAPSULE BY MOUTH TWICE A DAY mupirocin 2 % ointment 1 applic topical BID Qty: 22 0RF aspirin 81 mg Tablet,Delayed Release (Dr/Ec) 81 mg PO DAILY Discharge Instructions Additional Instructions: Please follow-up with your primary care physician. Your blood pressure was elevated today. Please be sure to discuss this with your doctor. Changes to your blood pressure medicine may be necessary. Please follow-up with dermatology. Call for an appointment today. Additional outpatient diagnostic testing may be indicated. Return to the emergency department immediately for any worsening or new concerning symptoms. Referrals: Paddy Blakely MD [ CONSULTING PHYSICIAN] - Randy Mauricio [Primary Care Provider] - [facility] Mode of arrival: ambulatory. Date/Time Provider Initiated Documentation: 11/27/24 13:54. Limitations to Documentation: no limitations. Information obtained by: patient. HPI Narrative: HISTORY OF PRESENT ILLNESS 64-year-old female with amyloidosis, antiphospholipid syndrome, hypertension, eczema, and lupus developed red blotches on both legs last night. Seen at [facility] this morning and advised to follow up with a special investigator. Reports sudden appearance of red blotches on both legs extending to her feet last night. No similar manifestations on abdomen or back. No recent tick bites. Engaged in outdoor activities such as yard work and raking. History of antiphospholipid syndrome, initially presented with numbness on one side of face and arm. Previously managed with warfarin, discontinued after pericardial effusion in 2014. Currently on baby aspirin. Patient completing 14-day course of Keflex for right lower leg ulcer infection. Related Data Home Medications ?Medication ?Instructions ?Recorded ?Confirmed simvastatin 20 mg tablet 20 mg PO DAILY 11/15/12 10/31/24 hydroxychloroquine 200 mg tablet 200 mg PO DAILY #30 tab-caps 11/16/16 10/31/24 levothyroxine 125 mcg tablet 125 mcg PO HS 05/25/17 10/31/24 albuterol sulfate 90 mcg/actuation 2 puff inhalation Q6H PRN 10/04/18 10/31/24 aerosol inhaler (ProAir HFA) shortness of breath calcium carbonate (Oyster Shell 500 mg PO DAILY 07/05/19 10/31/24 Calcium) losartan 100 1 tab PO DAILY 07/05/19 10/31/24 mg-hydrochlorothiazide 12.5 mg tablet pramipexole 0.25 mg tablet 0.25 mg PO QHS 07/05/19 10/31/24 acetaminophen 500 mg tablet 1,000 mg (2 x 500 mg) PO Q8H PRN 07/17/19 10/31/24 pain #90 tabs aspirin 81 mg tablet,delayed 81 mg PO DAILY 05/08/20 10/31/24 release ibuprofen 600 mg tablet 600 mg PO Q8H PRN pain #60 tabs 08/17/23 10/31/24 gabapentin 400 mg capsule 400 mg PO BID 05/20/24 10/31/24 mupirocin 2 % topical ointment 1 applic topical BID #22 grams 10/31/24 Previous Rx's ?Medication ?Instructions ?Recorded acetaminophen 500 mg tablet 1,000 mg (2 x 500 mg) PO Q8H PRN 07/17/19 pain #90 tabs ibuprofen 600 mg tablet 600 mg PO Q8H PRN pain #60 tabs 08/17/23 mupirocin 2 % topical ointment 1 applic topical BID #22 grams 10/31/24 Allergies Allergy/AdvReac Type Severity Reaction Status Date / Time No Known Allergies Allergy Verified 11/27/24 12:30 General Stated Complaint: RashLesion PRISCILLA: 4 Review of Systems All systems reviewed & are unremarkable except as noted in HPI and below Constitutional Constitutional: Denies fever(s) Integumentary/Breasts Skin/Breast: Reports as per HPI Exam Narrative Exam Narrative: PHYSICAL EXAM General Appearance: Normal. Vital signs: Within normal limits. HEENT: No rash or bleeding in mouth. Respiratory: Lungs clear bilaterally. Cardiovascular: Heart regular rate and rhythm, no murmurs. 1+ dorsalis pedis pulse bilaterally. Extremities: Petechial rash on lower legs from knee distally, non-blanching, no erythema, not warm to touch. Healing ulcer on right lower leg medially, no signs of infection. 3 cm circular shallow ulcer, healing, medial distal right lower extremity. Skin: Warm and dry, no rash. Neurological: Normal. Course Vital Signs Vital signs: Vital Signs Temperature 36.6 C 11/27/24 12:24 Pulse 64 11/27/24 12:24 Respiratory Rate 18 11/27/24 12:24 Blood Pressure 171/80 H 11/27/24 12:24 Pulse Oximetry 96 11/27/24 12:24 Temperature 36.7 C 11/27/24 13:13 Temperature Source Oral 11/27/24 13:13 Pulse 61 11/27/24 15:00 Pulse Rhythm Regular 11/27/24 13:13 Pulse Strength Normal 11/27/24 13:13 Respiratory Rate 22 11/27/24 13:13 Respiratory Effort Normal 11/27/24 13:13 Respiratory Depth Normal 11/27/24 13:13 Respiratory Pattern Normal 11/27/24 13:13 Blood Pressure 187/73 H 11/27/24 15:03 Blood Pressure Mean 103 11/27/24 13:13 Blood Pressure Position Supine 11/27/24 13:13 Pulse Oximetry 99 11/27/24 15:00 Oxygen Delivery Method Room Air 11/27/24 15:00 Oxygen Flow Rate 0 11/27/24 15:00 Pain Level 2 11/27/24 12:24 Comment pt states she has not taken her meds yet today 11/27/24 15:00 Lab/Test Results Lab/Test Results: Laboratory Tests Range/Units 11/27/24 10:36 WBC (4.4-10.8) 10^3/uL 4.60 RBC (3.93-5.22) 10^6/uL 4.30 Hgb (11.2-15.7) g/dL 12.0 Hct (36.0-46.0) % 36.3 MCV (80-95) fL 84 MCH (27.0-33.0) pg 27.9 MCHC (32.0-36.0) % 33.1 RDW (11.7-14.6) % 14.0 Plt Count (130-400) 10^3/uL 200 MPV (8.0-11.0) fL 9.8 Immature Gran % % 0.2 Neutrophils % % 75.9 Lymphocytes % % 6.1 Monocytes % % 7.6 Eosinophils % % 9.3 Basophils % % 0.9 Nucleated RBC % (0.0-0.3) % 0.0 Absolute Neutrophils (1.2-6.7) 10^3/uL 3.49 Absolute Lymphocytes (1.2-3.4) 10^3/uL 0.28 L Absolute Monocytes (0.1-0.8) 10^3/uL 0.35 Absolute Eosinophils (0.0-0.7) 10^3/uL 0.43 Absolute Basophils (0.0-0.2) 10^3/uL 0.04 ESR (0-30) mm/hr 13 Sodium (136-145) mmol/L 142 Potassium (3.5-5.1) mmol/L 3.9 Chloride (98-107) mmol/L 105 Carbon Dioxide (21.0-32.0) mmol/L 26.8 Anion Gap (3-11) mmol/L 10.2 BUN (7-18) mg/dL 13 Creatinine (0.55-1.02) mg/dL 0.9 Est GFR (CKD-EPI 2020) (mL/min/1.73m2) 72.28 Glucose (74-106) mg/dL 100 Calcium (8.5-10.1) mg/dL 7.9 L Total Bilirubin (0.2-1.0) mg/dL 0.5 AST (15-37) U/L 22 ALT (14-59) U/L 22 Alkaline Phosphatase (46-116) U/L 113 C-Reactive Protein (<or=0.5) mg/dL 7.78 H Total Protein (6.4-8.2) g/dL 5.9 L Albumin (3.4-5.0) g/dL 3.2 L Medical Decision Making ASSESSMENT AND PLAN Initial Assessment: Francie Yusuf is a 64-year-old female with multiple medical problems including history of amyloidosis, antiphospholipid syndrome, hypertension, and eczema. She developed 'red blotches' on both legs last night. Differential Diagnosis: - Petechial rash on lower legs from knee distally. Non-blanching, no erythema, not warm to touch. Possible cutaneous vasculitis or amyloidosis. Tick panel to rule out tick-borne diseases due to recent outdoor activities. Healing ulcer RLE. ED Course: - Reviewed labs performed this morning at [facility]: Labs show normal hemoglobin (12.0) and platelets (200). Kidney function normal. LFTs normal. CRP elevated. Final Assessment: The patient presented with a petechial rash on her lower legs. Labs reviewed showed normal hemoglobin and platelet levels. A tick panel was ordered to rule out tick-borne diseases. The patient has a history of antiphospholipid syndrome and lupus. Clinical Impression: - Petechial rash - Hypertension - Healing wound rle Disposition: - Discharge with outpatient followup MDM Components Evaluation: - Number of Differential Diagnoses or Management Options: Petechial rash - Amount and Complexity of Data Reviewed: Labs from [facility], tick panel ordered - Risk of Complication and Morbidity or Mortality: Moderate risk due to history of antiphospholipid syndrome and lupus This document was written with the assistance of WANDY Barry. The patient consented to its use. Quality:SDOH Health Related Social Needs: No Data to Display PFSH All Active Problems (Updated 11/27/24 @ 16:10 by Evan Whitmore MD) Petechial rash (Acute) Open wound of skin (Acute) Cellulitis (Acute) Left knee DJD (Chronic) 80 mg Depo-medrol injection: 08/29/24; 05/30/2024; 02/26/2024; 11/27/2023; 08/17/23 Headache (Acute) Urinary tract infection (Acute) Colovaginal fistula (Acute) Diverticulitis of sigmoid colon (Acute) Amyloidosis (Chronic) Herniated nucleus pulposus, lumbar (Chronic) Antiphospholipid syndrome (Chronic) Trigger thumb of right hand (Acute) Trigger thumb of left hand (Chronic) Nasal vestibulitis (Acute 11/02/17) Nasal congestion (Acute 06/19/14) Deviated nasal septum (Acute 06/19/14) Cephalgia (Acute 11/20/14) Constipation (Chronic) as above HTN (hypertension) (Chronic) GERD (gastroesophageal reflux disease) (Chronic) stable Lupus (Chronic) Medical History Normal colonoscopy [place] 11/13/[address] Natalya Styles at [facility], severe diverticular dz, repeat 10 years. mg Hypocalcemia Asthma Allergic rhinitis Abnormal mammogram of right breast Degenerative joint disease Hyperlipidemia Pericarditis Eczema Chest wall pain Insomnia Sciatica, left side Surgical History 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) History of bone marrow biopsy S/P thyroidectomy H/O: hysterectomy Tonsillectomy Social History Smoking/Tobacco Use Status: Former Tobacco Use Quit Date: 08/14/99 Smoking risk assessment performed?: Yes Alcohol Intake: current Alcohol Intake frequency: a few times a week Alcohol type: beer and wine Drug use: Never Substance use type: does not use Housing: house Current gender identity: female Do you feel safe at home: Yes Do you feel safe in your relationship?: Yes PAWSS Have you Been Recently Intoxicated or Drunk Within the Last 30 days?: No Have you Ever Experienced Previous Episodes of Alcohol Withdrawal?: No Have you ever Experienced Withdrawal Seizures?: No Have you ever Experienced Delirium Tremens(DT)s?: No Have you ever undergone Alcohol Rehabilitation Treatment (i.e, inpt ot outpatient treatment programs)?: No Have you ever Experienced Blackouts?: No Have you ever Combined Alcohol with other Downers within the last 90 days?: No Have you ever Combined Alcohol with any other Substance of Abuse during the last 90 days?: No Positive Blood Alcohol level on Presentation? [PCS.BAL]: No Evidence of Increased Autonomic Activity (i.e. HR>120, tremor, sweating, agitation, nausea)?: No Result: 0
[2024-11-27] MEDS: Bacitracin 1 PACKET (16:42)
[2024-11-29 11:04] LABS: Lyme Ab w Rflx to Lyme Confirm Negative (Negative)
[2024-11-30 14:04] LABS: Anaplasma phagocytophilum Negative (Negative); B. miyamotoi PCR Negative (Negative); Babesia divergens/MO-1 Negative (Negative); Babesia duncani Negative (Negative); Babesia microti Negative (Negative); Ehrlichia chaffeensis Negative (Negative); Ehrlichia ewingii/canis Negative (Negative); Ehrlichia muris eauclairensis Negative (Negative)
== END 2024-11-27 17:09 | disposition home or self-care (01) ==
PROVIDERS: Emergency Provider Student in an Organized Health Care Education/Training Program; PCP Student in an Organized Health Care Education/Training Program
DX: R21 Rash and other nonspecific skin eruption (principal); E85.9 Amyloidosis, unspecified; D68.61 Antiphospholipid syndrome; E78.5 Hyperlipidemia, unspecified; I10 Essential (primary) hypertension; M32.9 Systemic lupus erythematosus, unspecified; Z79.82 Long term (current) use of aspirin; Z87.891 Personal history of nicotine dependence
CPT/HCPCS: 80053; 85652; 87798; 99283; 85025; 86140; 86618

== ENCOUNTER 2024-11-27 16:43 | Outpatient (REF) | payer MEDICARE, MEDICAID, SELFPAY ==
[2024-11-27 14:36] LABS: Abs Immature Grans 0.01 10^3/uL (0.0-0.06); Absolute Basophil Count 0.04 10^3/uL (0.0-0.2); Absolute Eosinophil Count 0.43 10^3/uL (0.0-0.7); Absolute Lymphocyte Count 0.28 10^3/uL (1.2-3.4); Absolute Monocyte Count 0.35 10^3/uL (0.1-0.8); Absolute Neutrophil Count 3.49 10^3/uL (1.2-6.7); Basophils % 0.9 %; Eosinophils % 9.3 %; HCT 36.3 % (36.0-46.0); Immature Grans % 0.2 %; Lymphocytes % 6.1 %; MCH 27.9 pg (27.0-33.0); MCHC 33.1 % (32.0-36.0); MCV 84 fL (80-95); MPV 9.8 fL (8.0-11.0); Monocytes % 7.6 %; Neutrophils % 75.9 %; Platelet Count 200 10^3/uL (130-400); RDW-SD 43.1 fL
[2024-11-27 14:45] LABS: ESR 13 mm/hr (0-30)
[2024-11-27 15:23] LABS: ALT 22 U/L (14-59); AST 22 U/L (15-37); Albumin 3.2 g/dL (3.4-5.0); Alkaline Phosphatase 113 U/L (46-116); Anion Gap 10.2 mmol/L (3-11); BUN 13 mg/dL (7-18); Bilirubin, Total 0.5 mg/dL (0.2-1.0); C-Reactive Protein 7.78 mg/dL (<or=0.5); CO2 26.8 mmol/L (21.0-32.0); CREATININE 0.9 mg/dL (0.55-1.02); Calcium 7.9 mg/dL (8.5-10.1); Chloride 105 mmol/L (98-107); Estimated GFR 72.28 (mL/min/1.73m2); Glucose 100 mg/dL (74-106); Potassium 3.9 mmol/L (3.5-5.1); Sodium 142 mmol/L (136-145); Total Protein 5.9 g/dL (6.4-8.2)
== END 2024-11-27 16:44 | disposition home or self-care (01) ==
LOC: LBN 16:43
PROVIDERS: PCP Student in an Organized Health Care Education/Training Program; Visit Provider Physician Assistant Medical
DX: R23.3 Spontaneous ecchymoses (principal)
CPT/HCPCS: 80053; 85652; 85025; 86140

== ENCOUNTER → 2024-11-28 12:50 | Outpatient (BNVA) | payer MEDICARE, MEDICAID, SELFPAY | PROVIDERS: PCP Student in an Organized Health Care Education/Training Program; Referring Provider Student in an Organized Health Care Education/Training Program; Visit Provider Student in an Organized Health Care Education/Training Program | DX: M17.12 Unilateral primary osteoarthritis, left knee (principal) | CPT/HCPCS: 20610; 99213; J1010 ==

== ENCOUNTER 2024-12-22 18:53 | Emergency (ER) | payer MEDICARE, MEDICAID, SELFPAY ==
[2024-12-22 19:07] VITALS: BP 162/90; PULSE 67; RESP 20; TEMP 36.8; O2SAT 99
[2024-12-22] MEDS: Fluorescein STRIPS 100/BOX 1 MG OP (19:23)
[2024-12-22] MEDS: Tetracaine 0.5% 4 ML BTL OP (19:23)
--- NOTE | 2024-12-22 19:31 | W.ED.GENAD ---
Discharge Plan Disposition Patient Disposition: Home Condition: Stable Discharge Details Clinical Impression: Corneal abrasion due to contact lens Primary Care Provider: Randy Mauricio ED Provider: Nicole Peña Home Meds and New Rx's Prescriptions: New moxifloxacin 0.5 % drops 2 drp ophthalmic (eye) TID 7 Days Qty: 3 0RF Rx Instructions: 2 drops every 2 hours while awake for the first 2 days, then every 6 hours for the next 5 days unless instructed otherwise by your military exchange wireless manager No Action ibuprofen 600 mg tablet 600 mg PO Q8H PRN (Reason: pain) Qty: 60 3RF albuterol sulfate [ProAir HFA] 90 mcg/actuation HFA aerosol inhaler 2 puff Inhalation Q6H PRN (Reason: shortness of breath) hydroxychloroquine 200 MG tablet 200 mg PO DAILY Qty: 30 levothyroxine 125 MCG tablet 125 mcg PO HS simvastatin 20 MG tablet 20 mg PO DAILY calcium carbonate [Oyster Shell Calcium] 500 mg calcium (1,250 mg) Tablet 500 mg PO DAILY losartan-hydrochlorothiazide 100-12.5 mg Tablet 1 tab PO DAILY pramipexole 0.25 mg Tablet 0.25 mg PO QHS acetaminophen 500 mg tablet 1,000 mg PO Q8H PRN (Reason: pain) Qty: 90 3RF gabapentin 400 mg capsule 400 mg PO BID Patient Comments: TAKE ONE CAPSULE BY MOUTH TWICE A DAY mupirocin 2 % ointment 1 applic topical BID Qty: 22 0RF aspirin 81 mg Tablet,Delayed Release (Dr/Ec) 81 mg PO DAILY Discharge Instructions Instructions: Corneal Abrasion ED Additional Instructions: You were seen in the emergency department today for irritation associated with your contact lens. The lens was removed, and we did evaluate the cornea underneath which does have some evidence of small irritation/abrasion at the outer aspect of the right eye. For this reason I did prescribe you antibiotic drops, which you should use as prescribed. 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 Please follow-up with your primary care provider in the next few days to discuss this visit and any symptoms that change, worsen, or persist. Thank you for allowing us to be part of your care. HPI General Mode of arrival: ambulatory. Date/Time Provider Initiated Documentation: 12/22/24 18:56. Limitations to Documentation: no limitations. Information obtained by: patient and old records reviewed. HPI Narrative: This is a 64-year-old female patient with a history of colovaginal fistula, diverticulosis, hypertension, and lupus, presenting for evaluation of a contact lens problem. The patient reports that she gets large contact lenses placed by ophthalmology for her chronic dry eye. She had her contact lenses replaced on Monday last week, and states that the left-sided contact is not causing her problems, but she has had discomfort and irritation in the right eye. She reports that she has been using her eyedrops without changes from baseline, and has otherwise been in her normal state of health. The patient cannot think of any other foreign body or injuries that she is sustained to the eye. This is an isolated complaint and the patient is otherwise in her normal state of health. Related Data Home Medications ?Medication ?Instructions ?Recorded ?Confirmed simvastatin 20 mg tablet 20 mg PO DAILY 11/15/12 12/22/24 hydroxychloroquine 200 mg tablet 200 mg PO DAILY #30 tab-caps 11/16/16 12/22/24 levothyroxine 125 mcg tablet 125 mcg PO HS 05/25/17 12/22/24 albuterol sulfate 90 mcg/actuation 2 puff inhalation Q6H PRN 10/04/18 12/22/24 aerosol inhaler (ProAir HFA) shortness of breath calcium carbonate (Oyster Shell 500 mg PO DAILY 07/05/19 12/22/24 Calcium) losartan 100 1 tab PO DAILY 07/05/19 12/22/24 mg-hydrochlorothiazide 12.5 mg tablet pramipexole 0.25 mg tablet 0.25 mg PO QHS 07/05/19 12/22/24 acetaminophen 500 mg tablet 1,000 mg (2 x 500 mg) PO Q8H PRN 07/17/19 12/22/24 pain #90 tabs aspirin 81 mg tablet,delayed 81 mg PO DAILY 05/08/20 12/22/24 release ibuprofen 600 mg tablet 600 mg PO Q8H PRN pain #60 tabs 08/17/23 12/22/24 gabapentin 400 mg capsule 400 mg PO BID 05/20/24 12/22/24 mupirocin 2 % topical ointment 1 applic topical BID #22 grams 10/31/24 12/22/24 moxifloxacin 0.5 % eye drops 2 drp ophthalmic (eye) TID 7 days 12/22/24 #3 mL Previous Rx's ?Medication ?Instructions ?Recorded acetaminophen 500 mg tablet 1,000 mg (2 x 500 mg) PO Q8H PRN 07/17/19 pain #90 tabs ibuprofen 600 mg tablet 600 mg PO Q8H PRN pain #60 tabs 08/17/23 mupirocin 2 % topical ointment 1 applic topical BID #22 grams 10/31/24 moxifloxacin 0.5 % eye drops 2 drp ophthalmic (eye) TID 7 days 12/22/24 #3 mL Allergies Allergy/AdvReac Type Severity Reaction Status Date / Time No Known Allergies Allergy Verified 12/22/24 19:24 General Stated Complaint: EyeProblem PRISCILLA: 5 Exam Narrative Exam Narrative: Gen: Awake and alert, in no apparent distress HEENT: Non-icteric sclera, PERRL, EOMs are full. No foreign bodies visualized. Trace fluorescein uptake at the lateral aspect of the right eye, no ulcerations appreciated Neck: Supple Lungs: No apparent respiratory distress, normal respiratory effort. CV: Appears well perfused Abdomen: Non-distended MSK: Moves 4 extremities without apparent limitation in ROM Skin: Visualized skin without rashes, cyanosis. Neuro: Normal Gait, no obvious focal deficits or facial asymmetry. Speaks in full, clear sentences. Psych: Appropriate for situation. Course Vital Signs Vital signs: Vital Signs Temperature 36.8 C 12/22/24 19:07 Pulse 67 12/22/24 19:07 Respiratory Rate 20 12/22/24 19:07 Blood Pressure 162/90 H 12/22/24 19:07 Pulse Oximetry 99 12/22/24 19:07 Temperature 36.8 C 12/22/24 19:07 Pulse 67 12/22/24 19:07 Respiratory Rate 20 12/22/24 19:07 Blood Pressure 162/90 H 12/22/24 19:07 Pulse Oximetry 99 12/22/24 19:07 Pain Level 2 12/22/24 19:07 Medical Decision Making This is a 64-year-old female patient presenting for evaluation of eye discomfort. My differential includes but is not limited to corneal abrasion, corneal ulceration, certainly considered foreign body and contact lens irritation. The patient has no conjunctival injection, reported visual acuity changes, and I am otherwise otherwise reassured against severe pathology such as scleritis, uveitis, glaucoma. 2 drops of tetracaine were instilled in the right eye, and the patient had immediate improvement in her symptoms, consistent with a corneal etiology. The contact lens was able to be removed by this provider, and fluorescein exam was conducted with Jackson lamp, showing an area of very small uptake in the lateral aspect of the right eye. Given the potential for corneal abrasion and the contact lens presents, the decision was made to initiate moxifloxacin drops, which were provided to the patient. Additionally, the patient was counseled that she needs to follow-up with her military exchange wireless manager in the next 1 to 2 days for reassessment. At this time, the patient has had a full medical evaluation and is safe for discharge to home. They are hemodynamically stable, ambulatory, and tolerating PO. They are understanding of the follow-up plan and return precautions. They left our facility without incident. Nicole Peña MD Medical Records Medical records reviewed: Yes I reviewed the patient's medical records. Quality:SDOH Health Related Social Needs: No Data to Display PFSH All Active Problems (Updated 12/22/24 @ 19:32 by Nicole Peña MD) Corneal abrasion due to contact lens (Acute) Petechial rash (Acute) Left knee DJD (Chronic) Depo-medrol injection: 11/28/2024; 08/29/24; 05/30/2024; 02/26/2024; 11/27/2023; 08/17/23 Headache (Acute) Urinary tract infection (Acute) Colovaginal fistula (Acute) Diverticulitis of sigmoid colon (Acute) Amyloidosis (Chronic) Herniated nucleus pulposus, lumbar (Chronic) Antiphospholipid syndrome (Chronic) Trigger thumb of right hand (Acute) Trigger thumb of left hand (Chronic) Nasal vestibulitis (Acute 11/02/17) Nasal congestion (Acute 06/19/14) Deviated nasal septum (Acute 06/19/14) Cephalgia (Acute 11/20/14) Constipation (Chronic) as above HTN (hypertension) (Chronic) GERD (gastroesophageal reflux disease) (Chronic) stable Lupus (Chronic) Medical History Normal colonoscopy [place] 11/13/[address] Natalya Styles at [facility], severe diverticular dz, repeat 10 years. 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
[2024-12-22] MEDS: Moxifloxacin 0.5% 3 ML BTL OD (20:01)
== END 2024-12-22 20:02 | disposition home or self-care (01) ==
PROVIDERS: Emergency Provider Emergency Medicine; PCP Student in an Organized Health Care Education/Training Program
DX: H18.821 Corneal disorder due to contact lens, right eye (principal)
CPT/HCPCS: 99283 ×2

== ENCOUNTER 2025-01-28 17:35 | Outpatient (REF) | payer MEDICARE, MEDICAID, SELFPAY | END 2025-01-28 17:36 | disposition home or self-care (01) | LOC: LBN 17:35 | PROVIDERS: PCP Student in an Organized Health Care Education/Training Program; Visit Provider Nurse Practitioner Family | DX: T14.8XXA Other injury of unspecified body region, initial encounter (principal); L08.9 Local infection of the skin and subcutaneous tissue, unspecified | CPT/HCPCS: 87070; 87205 ==

== ENCOUNTER → 2025-02-07 08:55 | Outpatient (BNVA) | payer MEDICARE, MEDICAID, SELFPAY | PROVIDERS: PCP Student in an Organized Health Care Education/Training Program; Referring Provider Student in an Organized Health Care Education/Training Program; Visit Provider Physical Therapy Assistant | DX: L03.115 Cellulitis of right lower limb (principal) | CPT/HCPCS: 97597 ==

== ENCOUNTER → 2025-02-12 09:40 | Outpatient (BNVA) | payer MEDICARE, MEDICAID, SELFPAY | PROVIDERS: PCP Student in an Organized Health Care Education/Training Program; Referring Provider Student in an Organized Health Care Education/Training Program; Visit Provider Physical Therapy Assistant | DX: S91.001D Unspecified open wound, right ankle, subsequent encounter (principal); X58.XXXD Exposure to other specified factors, subsequent encounter | CPT/HCPCS: 99214 ==

== ENCOUNTER → 2025-02-18 09:53 | Outpatient (BNVA) | payer MEDICARE, MEDICAID, SELFPAY | PROVIDERS: PCP Student in an Organized Health Care Education/Training Program; Referring Provider Student in an Organized Health Care Education/Training Program; Visit Provider Physical Therapy Assistant | DX: S91.001D Unspecified open wound, right ankle, subsequent encounter (principal); X58.XXXD Exposure to other specified factors, subsequent encounter | CPT/HCPCS: 99214 ==

== ENCOUNTER → 2025-02-26 11:02 | Outpatient (BNVA) | payer MEDICARE, MEDICAID, SELFPAY | PROVIDERS: PCP Student in an Organized Health Care Education/Training Program; Referring Provider Student in an Organized Health Care Education/Training Program; Visit Provider Physical Therapy Assistant | DX: S91.001D Unspecified open wound, right ankle, subsequent encounter (principal); X58.XXXD Exposure to other specified factors, subsequent encounter | CPT/HCPCS: 99213 ==

== ENCOUNTER → 2025-02-27 13:33 | Outpatient (BNVA) | payer MEDICARE, MEDICAID, SELFPAY | PROVIDERS: PCP Student in an Organized Health Care Education/Training Program; Referring Provider Student in an Organized Health Care Education/Training Program; Visit Provider Student in an Organized Health Care Education/Training Program | DX: M17.12 Unilateral primary osteoarthritis, left knee (principal) | CPT/HCPCS: 20610; J1010 ==

== ENCOUNTER → 2025-03-05 10:36 | Outpatient (BNVA) | payer MEDICARE, MEDICAID, SELFPAY | PROVIDERS: PCP Student in an Organized Health Care Education/Training Program; Referring Provider Student in an Organized Health Care Education/Training Program; Visit Provider Physical Therapy Assistant | DX: S81.802D Unspecified open wound, left lower leg, subsequent encounter (principal); X58.XXXD Exposure to other specified factors, subsequent encounter; E85.9 Amyloidosis, unspecified; D68.61 Antiphospholipid syndrome | CPT/HCPCS: 99213 ==

== ENCOUNTER 2025-03-05 12:02 | Outpatient (REF) | payer MEDICARE, MEDICAID, SELFPAY ==
[2025-03-05 16:28] LABS: Abs Immature Grans 0.02 10^3/uL (0.0-0.06); HCT 39.7 % (36.0-46.0); HGB 13.4 g/dL (11.2-15.7); Immature Grans % 0.3 %; MCH 27.1 pg (27.0-33.0); MCHC 33.8 % (32.0-36.0); MCV 80 fL (80-95); MPV 10.0 fL (8.0-11.0); Platelet Count 236 10^3/uL (130-400); RBC 4.94 10^6/uL (3.93-5.22); RDW 13.6 % (11.7-14.6); RDW-SD 39.6 fL; WBC 6.61 10^3/uL (4.4-10.8)
== END 2025-03-05 12:03 | disposition home or self-care (01) ==
LOC: NCHCN 12:02
PROVIDERS: PCP Student in an Organized Health Care Education/Training Program; Visit Provider Student in an Organized Health Care Education/Training Program
DX: D72.810 Lymphocytopenia (principal)
CPT/HCPCS: 85025

== ENCOUNTER → 2025-03-12 09:02 | Outpatient (BNVA) | payer MEDICARE, MEDICAID, SELFPAY | PROVIDERS: PCP Student in an Organized Health Care Education/Training Program; Referring Provider Student in an Organized Health Care Education/Training Program; Visit Provider Physical Therapy Assistant | DX: S81.801D Unspecified open wound, right lower leg, subsequent encounter (principal); E85.9 Amyloidosis, unspecified; D68.61 Antiphospholipid syndrome; Z51.89 Encounter for other specified aftercare; X58.XXXD Exposure to other specified factors, subsequent encounter | CPT/HCPCS: 99213 ==

== ENCOUNTER → 2025-03-26 09:26 | Outpatient (BNVA) | payer MEDICARE, MEDICAID, SELFPAY | PROVIDERS: PCP Student in an Organized Health Care Education/Training Program; Referring Provider Student in an Organized Health Care Education/Training Program; Visit Provider Physical Therapy Assistant | DX: S81.801D Unspecified open wound, right lower leg, subsequent encounter (principal); E85.9 Amyloidosis, unspecified; D68.61 Antiphospholipid syndrome; X58.XXXD Exposure to other specified factors, subsequent encounter | CPT/HCPCS: 97597 ==

== ENCOUNTER 2025-04-04 09:20 | Emergency (ER) | payer MEDICARE, MEDICAID, SELFPAY ==
[2025-04-04 09:24] VITALS: BP 167/71; PULSE 67; RESP 14; TEMP 36.9; O2SAT 99
--- NOTE | 2025-04-04 09:30 | DI.RAD_ITS ---
Exam(s) XR TIB/FIB RT EXAM: XR TIB/FIB RT CLINICAL HISTORY: Chronic mid denson ulcer. eval for osteo. TECHNIQUE: 2D digital imaging was performed. COMPARISON: CR XR STANDING ALIGNMENT from 08/01/2019 FINDINGS: Two views Right knee prosthesis again noted which appear satisfactory. Multiple calcifications in the right calf are again noted, similar to 2019. There are no fractures evident. No osseous lesions. No radiographic evidence of osteomyelitis. IMPRESSION: No fractures and no evidence of osteomyelitis, as per request. DATA REPOSITORY: RADIATION DOSE DELIVERED:
[2025-04-04] MEDS: Acetaminophen 500 MG TAB 1000 MG PO (09:47)
[2025-04-04] MEDS: Lidocaine 5% Patch 1 PATCH TP (09:48)
--- NOTE | 2025-04-04 09:53 | W.ED.GENAD ---
Discharge Plan Disposition Patient Disposition: Home Condition: Good Discharge Details Clinical Impression: Leg wound, right Primary Care Provider: Randy Mauricoi ED Provider: Gurwinder Yang Home Meds and New Rx's Prescriptions: New lidocaine [Lidoderm] 5 % adhesive patch,medicated 1 patch Topical Q24H Qty: 15 0RF No Action ibuprofen 600 mg tablet 600 mg PO Q8H PRN (Reason: pain) Qty: 60 3RF albuterol sulfate [ProAir HFA] 90 mcg/actuation HFA aerosol inhaler 2 puff Inhalation Q6H PRN (Reason: shortness of breath) hydroxychloroquine 200 MG tablet 200 mg PO DAILY Qty: 30 levothyroxine 125 MCG tablet 125 mcg PO HS amlodipine 2.5 mg tablet 2.5 mg PO DAILY simvastatin 20 mg tablet 40 mg PO DAILY calcium carbonate [Oyster Shell Calcium] 500 mg calcium (1,250 mg) Tablet 500 mg PO DAILY losartan-hydrochlorothiazide 100-12.5 mg Tablet 1 tab PO DAILY pramipexole 0.25 mg Tablet 0.25 mg PO QHS acetaminophen 500 mg tablet 1,000 mg PO Q8H PRN (Reason: pain) Qty: 90 3RF gabapentin 400 mg capsule 400 mg PO BID Patient Comments: TAKE ONE CAPSULE BY MOUTH TWICE A DAY aspirin 81 mg Tablet,Delayed Release (Dr/Ec) 81 mg PO DAILY cephalexin [Keflex] 2 tab PO DAILY Patient Comments: Pt states therapy is now complete 04/04/25. Pt states she was on med x 5 days. Discharge Instructions Instructions: Wound Care ED Additional Instructions: At this time your wound shows mild improvement. The healing process will be slow and take quite some time. Please utilize the Lidoderm patch as we did here, cut out the center to avoid contact with the ulcer itself to help give relief to the new healing skin. Additionally, please take Tylenol as needed for pain control. You can take 1000 mg every 6 hours. This is a maximum dose. Please follow closely with your vascular specialist, your wound care team, and dermatology once this referral has been made. Please follow-up with your primary care provider to discuss the collagen and honey based wound care product. We have given you some additional information on this. If you notice any worsening of your symptoms, or any new symptoms such as vomiting, diarrhea, fever, chills, shortness of breath, chest pain, numbness, weakness, or fainting , please return immediately to the emergency department for reevaluation. Please follow up with your primary care provider as soon as possible for reassessment and reevaluation. As always, it was a pleasure participating in your medical care today. HPI General Date/Time Provider Initiated Documentation: 04/04/25 09:23. HPI Narrative: This is a 65-year-old female with a past medical history of amyloidosis, hypertension, GERD, lupus, hypothyroidism, high cholesterol, who presents today for chronic right denson wound. Patient states that about 8 months ago she may have bumped the area and it has slowly developed a wound or ulcer. She is now being followed by wound care, and there has been mild improvement over the last few weeks. She was seen by her PCP a week ago, and was started on a course of Keflex which she has now just finished. She states that she thinks it may be getting a tiny bit better, but she feels that it is getting more sore around the wound itself. And that of course the ulcer is still quite sore as well. She denies any fever or chills. She denies any history of diabetes. She denies any new trauma. She is changing the bandaging regularly. No other complaints at this time. No other modifying factors. Of note she does see vascular surgery at [facility] within the next 72 hours at a scheduled appointment. She does not yet have a referral to dermatology. Related Data Home Medications ?Medication ?Instructions ?Recorded ?Confirmed hydroxychloroquine 200 mg tablet 200 mg PO DAILY #30 tab-caps 11/16/16 04/04/25 levothyroxine 125 mcg tablet 125 mcg PO HS 05/25/17 04/04/25 albuterol sulfate 90 mcg/actuation 2 puff inhalation Q6H PRN 10/04/18 04/04/25 aerosol inhaler (ProAir HFA) shortness of breath calcium carbonate (Oyster Shell 500 mg PO DAILY 07/05/19 04/04/25 Calcium) losartan 100 1 tab PO DAILY 07/05/19 04/04/25 mg-hydrochlorothiazide 12.5 mg tablet pramipexole 0.25 mg tablet 0.25 mg PO QHS 07/05/19 04/04/25 acetaminophen 500 mg tablet 1,000 mg (2 x 500 mg) PO Q8H PRN 07/17/19 04/04/25 pain #90 tabs aspirin 81 mg tablet,delayed 81 mg PO DAILY 05/08/20 04/04/25 release ibuprofen 600 mg tablet 600 mg PO Q8H PRN pain #60 tabs 08/17/23 04/04/25 gabapentin 400 mg capsule 400 mg PO BID 05/20/24 04/04/25 amlodipine 2.5 mg tablet 2.5 mg PO DAILY 01/31/25 04/04/25 simvastatin 20 mg tablet 40 mg PO DAILY 01/31/25 04/04/25 cephalexin 2 tab PO DAILY 04/04/25 04/04/25 lidocaine 5 % topical patch 1 patch topical Q24H #15 ea 04/04/25 (Lidoderm) Previous Rx's ?Medication ?Instructions ?Recorded acetaminophen 500 mg tablet 1,000 mg (2 x 500 mg) PO Q8H PRN 07/17/19 pain #90 tabs ibuprofen 600 mg tablet 600 mg PO Q8H PRN pain #60 tabs 08/17/23 lidocaine 5 % topical patch 1 patch topical Q24H #15 ea 04/04/25 (Lidoderm) Allergies Allergy/AdvReac Type Severity Reaction Status Date / Time No Known Allergies Allergy Verified 04/04/25 09:28 General Stated Complaint: RashLesion PRISCILLA: 3 Exam Narrative Exam Narrative: 1.Const: Well-nourished, Well-developed, appearing stated age 2.Eyes: PERRL, no conjunctival injection, and symmetrical lids. 3.ENT: Atraumatic external nose and ears. Moist MM. Neck: Symmetric, trachea midline, No thyromegaly. 4.CVS: +S1/S2, Peripheral pulses 2+ and equal in all extremities. Brisk capillary refill in all extremities. 5.RESP: Unlabored respiratory effort. Clear to auscultation bilaterally. No wheezes rales or rhonchi 6.GI: Soft, Nontender/Nondistended, No hepatosplenomegaly. No guarding or rebound. 7.MSK: Normocephalic/Atraumatic, Extremities w/o deformity or ttp No cyanosis or clubbing, Normal movement of all extremities 8.Skin: On the medial aspect of the patient's right denson just proximal to the ankle there appears to be a chronic wound/ulcer. There appears to be good granulation tissue in the center of the wound, as well as good wound edge healing around it. No fluctuance, no erythema. Mild tenderness around the wound edge border. No active bleeding. Dimensions are 2 cm x 1.8 cm site for a small tail that comes out the posterior aspect. 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 Sensation grossly intact, no focal neurologic deficits. 10.Psych: (AAO) x3. Appropriate mood and affect Course Vital Signs Vital signs: Vital Signs Temperature 36.9 C 04/04/25 09:24 Pulse 67 04/04/25 09:24 Respiratory Rate 14 04/04/25 09:24 Blood Pressure 167/71 H 04/04/25 09:24 Pulse Oximetry 99 04/04/25 09:24 Temperature 36.9 C 04/04/25 09:24 Temperature Source Oral 04/04/25 09:24 Pulse 67 04/04/25 09:24 Respiratory Rate 14 04/04/25 09:24 Blood Pressure 167/71 H 04/04/25 09:24 Blood Pressure Position Sitting 04/04/25 09:24 Pulse Oximetry 99 04/04/25 09:24 Oxygen Delivery Method Room Air 04/04/25 09:24 Oxygen Flow Rate 0 04/04/25 09:24 Pain Level 5 04/04/25 09:47 Medical Decision Making This is a 65-year-old female with a past medical history of amyloidosis, hypertension, GERD, lupus, hypothyroidism, high cholesterol, who presents today for chronic right denson wound. Patient states that about 8 months ago she may have bumped the area and it has slowly developed a wound or ulcer. She is now being followed by wound care, and there has been mild improvement over the last few weeks. She was seen by her PCP a week ago, and was started on a course of Keflex which she has now just finished. She states that she thinks it may be getting a tiny bit better, but she feels that it is getting more sore around the wound itself. And that of course the ulcer is still quite sore as well. She denies any fever or chills. She denies any history of diabetes. She denies any new trauma. She is changing the bandaging regularly. No other complaints at this time. No other modifying factors. Of note she does see vascular surgery at [facility] within the next 72 hours at a scheduled appointment. She does not yet have a referral to dermatology. On the medial aspect of the patient's right denson just proximal to the ankle there appears to be a chronic wound/ulcer. There appears to be good granulation tissue in the center of the wound, as well as good wound edge healing around it. No fluctuance, no erythema. Mild tenderness around the wound edge border. No active bleeding. Dimensions are 2 cm x 1.8 cm site for a small tail that comes out the posterior aspect. Please see image Symptoms appear consistent with a chronic wound, which does show good healing. She does have intact peripheral pulses at +1 bilaterally for dorsalis pedis. Capillary refill is around 2 seconds. There is concern for hyperesthesia surrounding the wound which may be a reflection of reflex and pathetic dystrophy, which is general sensitivity post wound healing. We will cut out a Lidoderm patch to sit in the nonulcerated areas to help with the pain. Will get an x-ray to make sure there is no evidence of bony involvement with the tibia. Otherwise patient is stable for continued outpatient management with no evidence of acute infection. Will recommend collagen honey-based wound care supplementation. Will send this paperwork with the patient for use with their home provider. Will recommend close follow-up with vascular at their scheduled appointment 72 hours 10:45 AM X-rays negative for acute process. No evidence of osteomyelitis. Patient has tolerated Lidoderm patch. Will discharge home with recommendations for close follow-up, will give information for [employer] collagen honey wound care therapy to recommend close follow-up with PCP for further discussion of this on a nonemergent outpatient basis. Will recommend continued wound care. Discussed red flags which to return. With no evidence of worsening infection, cellulitis, abscess, or other significant abnormality I do not see an indication for new antibiotics or surgical intervention. I have extensively reviewed the treatment plan and discharge instructions with the patient. I have addressed all patient concerns at this time. The patient was made aware of what symptoms to monitor for that would warrant a return to the emergency department. Discussed the plan with the patient, they demonstrate verbal understanding and agreement with our assessment and plan at this time. The documentation in this chart was dictated using [employer] dictation software. Please excuse any dictation errors. Potentially, the current wound healing component does not show evidence to suggest a squamous or basal cell carcinoma, however if there is worsening of the wound patient would need further outpatient biopsy of this. But with the current improvement I do not think this is indicated at this time. FINDINGS: Two views Right knee prosthesis again noted which appear satisfactory. Multiple calcifications in the right calf are again noted, similar to 2019. There are no fractures evident. No osseous lesions. No radiographic evidence of osteomyelitis. IMPRESSION: No fractures and no evidence of osteomyelitis, as per request. PFSH All Active Problems (Updated 04/04/25 @ 10:47 by Gurwinder Yang DO) Leg wound, right (Acute) Chronic wound (Acute) Left knee DJD (Chronic) Depo-medrol injection: 02/27/25; 11/28/2024; 08/29/24; 05/30/2024; 02/26/2024; 11/27/2023; 08/17/23 Headache (Acute) Urinary tract infection (Acute) Colovaginal fistula (Acute) Diverticulitis of sigmoid colon (Acute) Amyloidosis (Chronic) Herniated nucleus pulposus, lumbar (Chronic) Antiphospholipid syndrome (Chronic) Trigger thumb of right hand (Acute) Trigger thumb of left hand (Chronic) Nasal vestibulitis (Acute 11/02/17) Nasal congestion (Acute 06/19/14) Deviated nasal septum (Acute 06/19/14) Cephalgia (Acute 11/20/14) Constipation (Chronic) as above HTN (hypertension) (Chronic) GERD (gastroesophageal reflux disease) (Chronic) stable Lupus (Chronic) Medical History (Updated 04/04/25 @ 10:47 by Gurwinder Yang DO) Primary localized cutaneous amyloidosis Cellulitis of right lower limb Lymphocytopenia Normal colonoscopy Dolph 11/13/[address] Natalya Styles at [facility], severe diverticular dz, repeat 10 years. 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
== END 2025-04-04 10:56 | disposition home or self-care (01) ==
PROVIDERS: Emergency Provider Student in an Organized Health Care Education/Training Program; PCP Student in an Organized Health Care Education/Training Program
DX: S81.801A Unspecified open wound, right lower leg, initial encounter (principal); X58.XXXA Exposure to other specified factors, initial encounter
CPT/HCPCS: 99283 ×2; 73590

== ENCOUNTER → 2025-04-09 09:24 | Outpatient (BNVA) | payer MEDICARE, MEDICAID, SELFPAY | PROVIDERS: PCP Student in an Organized Health Care Education/Training Program; Referring Provider Student in an Organized Health Care Education/Training Program; Visit Provider Physical Therapy Assistant | DX: S81.801D Unspecified open wound, right lower leg, subsequent encounter (principal); X58.XXXD Exposure to other specified factors, subsequent encounter; E85.9 Amyloidosis, unspecified | CPT/HCPCS: 99212 ==

== ENCOUNTER 2025-04-13 09:07 | Emergency (ER) | payer MEDICARE, MEDICAID, SELFPAY ==
[2025-04-13] VITALS (54 sets, daily range): BP systolic 167–199; BP diastolic 63–84; PULSE 56–75; RESP 12–28; TEMP 35.6; O2SAT 70–99
--- NOTE | 2025-04-13 09:15 | DI.RAD_ITS ---
Exam(s) XR CHEST 2V PA LATERAL EXAM: XR CHEST 2V PA LATERAL CLINICAL HISTORY: shortness of brath TECHNIQUE: 2D digital imaging was performed of the chest. Two images were obtained. PA and lateral views were obtained. COMPARISON: CR XR CHEST 2V PA LATERAL from 02/01/2022 CR XR CHEST 2V PA LATERAL from 09/20/2024 CR XR CHEST 2V PA LATERAL from 09/23/2024 FINDINGS: MEDIASTINUM: Normal. HEART: Normal. PULMONARY VASCULATURE: Normal. LUNGS: There are increased lung markings seen in the left lung base adjacent to the left hemidiaphragm on the PA view. The right lung is clear. PLEURAL SPACE: No pleural effusion or pneumothorax. BONE:Within normal limits for the patient's age. OTHER FINDINGS:Normal. IMPRESSION: Increased lung markings in the left lung base. Differential considerations include atelectasis or early pneumonia. DATA REPOSITORY: RADIATION DOSE DELIVERED:
--- NOTE | 2025-04-13 09:15 | RT.EKG_ITS ---
APPROVED REPORT Exam: Resting ECG Reason for Exam: LEFT CHEST TIGHTNESS Patient Location: E HR:59 bpm ECG Measurements Heart Rate 59 AXIS TN 146 P 44 QRSd 106 QRS -20 QT 455 T -9 QTc 450 Conclusion Sinus bradycardia...rate< 60 Low voltage, precordial leads...precordial leads <1.0mV Probable left ventricular hypertrophy...(RaVL+SV3)xQRSd >300 No Occlusion SD
[2025-04-13] MEDS: Furosemide 20 MG/2 ML VIAL IVP (09:40)
[2025-04-13 09:41] LABS: Abs Immature Grans 0.01 10^3/uL (0.0-0.06); HCT 32.9 % (36.0-46.0); HGB 11.1 g/dL (11.2-15.7); Immature Grans % 0.2 %; MCH 26.8 pg (27.0-33.0); MCHC 33.7 % (32.0-36.0); MCV 80 fL (80-95); MPV 9.1 fL (8.0-11.0); Platelet Count 170 10^3/uL (130-400); RBC 4.14 10^6/uL (3.93-5.22); RDW 14.0 % (11.7-14.6); RDW-SD 40.7 fL; WBC 4.88 10^3/uL (4.4-10.8)
[2025-04-13 10:02] LABS: NT-proBNP 3690 pg/mL (<300); Troponin I 7 ng/L (<or=51)
[2025-04-13 10:04] LABS: ALT 23 U/L (14-59); AST 27 U/L (15-37); Albumin 3.2 g/dL (3.4-5.0); Alkaline Phosphatase 136 U/L (46-116); Anion Gap 7.1 mmol/L (3-11); BUN 38 mg/dL (7-18); Bilirubin, Total 0.5 mg/dL (0.2-1.0); CO2 29.9 mmol/L (21.0-32.0); Calcium 8.9 mg/dL (8.5-10.1); Chloride 103 mmol/L (98-107); Estimated GFR 29.30 (mL/min/1.73m2); Glucose 94 mg/dL (74-106); Magnesium 1.7 mg/dL (1.8-2.4); Potassium 4.3 mmol/L (3.5-5.1); Sodium 140 mmol/L (136-145); TSH (W/Ref FT4) 7.20 uIU/mL (0.36-3.74); Total Protein 6.1 g/dL (6.4-8.2)
[2025-04-13 10:29] LABS: Glucose Negative (Negative)
--- NOTE | 2025-04-13 10:31 | W.EDPROG ---
Date of service: 04/13/25 Time of Service: 10:31 Medical Decision Making I participated in this patient's care by completing a bedside echocardiogram. Discharge Plan Disposition Patient Disposition: Home Discharge Details Clinical Impression: CHF (congestive heart failure), Mild peripheral edema, GAVIN (acute kidney injury), Hematuria, Hypertension Primary Care Provider: Randy Mauricio ED Provider: Kerri Guerra Home Meds and New Rx's Prescriptions: New furosemide [Lasix] 20 mg tablet 20 mg PO BID Qty: 10 0RF magnesium oxide 500 mg capsule 500 mg PO DAILY Qty: 20 0RF Continued ibuprofen 600 mg tablet 600 mg PO Q8H PRN (Reason: pain) Qty: 60 3RF albuterol sulfate [ProAir HFA] 90 mcg/actuation HFA aerosol inhaler 2 puff Inhalation Q6H PRN (Reason: shortness of breath) hydroxychloroquine 200 MG tablet 200 mg PO DAILY Qty: 30 levothyroxine 125 MCG tablet 125 mcg PO HS amlodipine 2.5 mg tablet 2.5 mg PO DAILY simvastatin 20 mg tablet 40 mg PO DAILY calcium carbonate [Oyster Shell Calcium] 500 mg calcium (1,250 mg) Tablet 500 mg PO DAILY losartan-hydrochlorothiazide 100-12.5 mg Tablet 1 tab PO DAILY pramipexole 0.25 mg Tablet 0.25 mg PO QHS acetaminophen 500 mg tablet 1,000 mg PO Q8H PRN (Reason: pain) Qty: 90 3RF gabapentin 400 mg capsule 400 mg PO BID Patient Comments: TAKE ONE CAPSULE BY MOUTH TWICE A DAY aspirin 81 mg Tablet,Delayed Release (Dr/Ec) 81 mg PO DAILY lidocaine [Lidoderm] 5 % adhesive patch,medicated 1 patch Topical Q24H Qty: 15 0RF Discharge Instructions Instructions: Heart Healthy Diet, Heart Failure, Adult (DC), Acute Kidney Injury (DC) Additional Instructions: Elevate your legs as much as possible Start the Lasix, you will need your labs rechecked closely and I recommend calling first thing in the morning on Monday to follow-up this week You are leaving against our recommendation and understand the risks associated with this decision Please take the magnesium supplement and continue on your other medications You will need your creatinine level rechecked by your doctor this week in addition to your electrolytes You will be taking the Lasix twice a day You will also need to have your blood pressure rechecked this week make sure you continue your blood pressure medications She develop worsening shortness of breath, increased welling to your lower extremities, or should any new concerns arise please be reevaluated immediately in the emergency department try to wear your compression stockings You may also benefit from a repeat echocardiogram of your heart in the outpatient setting Referrals: Randy Mauricio [Primary Care Provider, Medicine] POCUS Exam (ED) Limited Cardiac Exam DATE OF EXAM: 04/16/25 TIME OF EXAM: 10:32 PROVIDER THAT PERFORMED THE STUDY: Daniel Abernathy IS THIS A REPEAT EXAM DURING THIS ENCOUNTER: no REASON FOR EXAM: Dyspnea VISUALIZED STRUCTURES: Four Chambers, Left ventricle and LVOT VIEW OBTAINED: Apical 4-Chamber, Parasternal long-axis and Subxiphoid PERTINENT FINDINGS/IMPRESSION: No pericardial effusion and No RV dilation DIFFERENTIAL DIAGNOSES: Aortic outflow track less than 4 cm, good squeeze, RV less than LV, no significant pericardial effusion. Left-sided B-lines. Exam complete
[2025-04-13 10:39] LABS: C & S Indicated? No; RBC 20-50 HPF (0-2)
[2025-04-13 11:14] LABS: Troponin I 7 ng/L (<or=51)
--- NOTE | 2025-04-13 12:45 | DI.CT_ITS ---
Exam(s) CT ABDOMEN PELVIS WO EXAM: CT ABDOMEN PELVIS WO CLINICAL HISTORY: elevated creatinine and rbc's. TECHNIQUE: Imaging Protocol: Axial computed tomography images with coronal and sagittal reformatted images were created and reviewed. COMPARISON: CT CT ABDOMEN PELVIS W from 05/27/[address] ABDOMEN PELVIS W from 05/20/2024 FINDINGS: The lack of IV contrast does limit the evaluation of the abdominal pelvic organs. ABDOMEN: Lung Bases: There are small bilateral pleural effusions left greater than right. Liver: Normal density. There are tiny cysts again seen in the liver. No suspicious masses are present. Gallbladder and biliary tract: There is a gallstone present. The common duct measures 1.3 cm. This is unchanged compared to prior examinations. Pancreas: Normal density, no abnormal calcifications or inflammatory process. Spleen: The spleen is enlarged. Kidneys: Normal size, contour and axis.No radiodense stones or obstructive uropathy. No masses seen. Adrenal glands: No mass is seen. Lymph nodes: Within normal limits. Stable abdominal pelvic lymph nodes. Abdominal Aorta: Abdominal portion non-dilated. Atherosclerotic calcification is present. PELVIS: Bladder:The urinary bladder is incompletely distended limiting evaluation. No gross abnormality is identified. Bowel: There is diverticulosis of the colon. There is a question of mild thickening of the wall of the distal sigmoid colon. The bowel shows no evidence of obstruction or wall thickening. There is no pneumatosis. Appendix is unremarkable. Peritoneal cavity: There is a trace amount of fluid in the dependent portion of the pelvis. No free air. Reproductive organs: Status post hysterectomy. Bones: Within normal limits. Soft Tissues: There is a small fat containing umbilical hernia. IMPRESSION: 1. There is no evidence of nephrolithiasis or obstructive uropathy. 2. Small bilateral pleural effusions, left greater than right. 3. Mildly enlarged spleen. 4. Cholelithiasis. 5. Diverticulosis. There is question of mild thickening of the wall of the distal sigmoid colon. This may represent a mild acute diverticulitis. There is no abscess or free air. Please correlate clinically. 6. Status post hysterectomy. RADIATION DOSE DELIVERED: 839.84mGy.cm Total DLP DATA REPOSITORY: All CT scans at this facility are submitted to the National Radiology Data Registry (NRDR) Dose Index Registry (DIR) with the [employer] (A[employer]). RADIATION OPTIMIZATION: All CT scans at this facility use at least one of these dose optimization techniques: automated exposure control; mA and/or kV adjustment per patient size (includes targeted exams where dose is matched to clinical indication); or iterative reconstruction.
[2025-04-13 12:56] LABS: Anion Gap 8.4 mmol/L (3-11); BUN 37 mg/dL (7-18); CO2 29.6 mmol/L (21.0-32.0); Calcium 8.7 mg/dL (8.5-10.1); Chloride 101 mmol/L (98-107); Estimated GFR 33.49 (mL/min/1.73m2); Glucose 126 mg/dL (74-106); Potassium 4.2 mmol/L (3.5-5.1); Sodium 139 mmol/L (136-145)
== END 2025-04-13 15:23 | disposition home or self-care (01) ==
PROVIDERS: Emergency Provider Physician Assistant; PCP Student in an Organized Health Care Education/Training Program
DX: N17.9 Acute kidney failure, unspecified (principal); I50.9 Heart failure, unspecified; I10 Essential (primary) hypertension; R31.9 Hematuria, unspecified; R60.0 Localized edema
CPT/HCPCS: 99284 ×2; 96374; 36415; 00123; 80048; 80053; 93005; 93308; 71046; 74176; 81003; 81015; 83735; 83880; 84439; 84443; 84484; 85025; 93010; J1938

== ENCOUNTER 2025-04-15 15:51 | Outpatient (REF) | payer MEDICARE, MEDICAID, SELFPAY ==
[2025-04-15 15:38] LABS: Anion Gap 7.5 mmol/L (3-11); BUN 47 mg/dL (7-18); CO2 29.5 mmol/L (21.0-32.0); Calcium 8.7 mg/dL (8.5-10.1); Chloride 101 mmol/L (98-107); Estimated GFR 23.30 (mL/min/1.73m2); Glucose 93 mg/dL (74-106); Magnesium 2.0 mg/dL (1.8-2.4); Potassium 5.1 mmol/L (3.5-5.1); Sodium 138 mmol/L (136-145)
== END 2025-04-15 15:52 | disposition home or self-care (01) ==
LOC: NCHCN 15:51
PROVIDERS: PCP Student in an Organized Health Care Education/Training Program; Visit Provider Student in an Organized Health Care Education/Training Program
DX: I10 Essential (primary) hypertension (principal)
CPT/HCPCS: 80048; 83735

== ENCOUNTER 2025-04-18 08:24 | Inpatient (IN) | payer MEDICARE, MEDICAID, SELFPAY ==
[2025-04-18] VITALS (39 sets, daily range): BP systolic 164–227; BP diastolic 64–92; PULSE 59–74; RESP 13–28; TEMP 35.7–37.2; O2SAT 92–98
--- NOTE | 2025-04-18 08:15 | RT.EKG_ITS ---
APPROVED REPORT Exam: Resting ECG Reason for Exam: dyspnea Patient Location: E HR:71 bpm ECG Measurements Heart Rate 71 AXIS TN 143 P 38 QRSd 99 QRS -18 QT 428 T -20 QTc 466 Conclusion Sinus rhythm...normal P axis, V-rate 60- 99 Inferior infarct, old...Q >35mS, II III aVF
--- NOTE | 2025-04-18 08:45 | DI.RAD_ITS ---
Exam(s) XR CHEST 2V PA LATERAL EXAM: XR CHEST 2V PA LATERAL CLINICAL HISTORY: Chest pain TECHNIQUE: 2D digital imaging was performed. Two views. COMPARISON: CR XR CHEST 2V PA LATERAL from 04/13/[address] CHEST/ABD/PEL WO from 04/18/2025 FINDINGS: HEART: Mildly enlarged Aorta: Not dilated. PULMONARY VASCULATURE: Mildly prominent MEDIASTINUM: Unremarkable. LUNGS: Increased interstitial markings bilaterally Which may indicate CHF. PLEURAL SPACE: Tiny left pleural effusion. No pneumothorax. BONE:Unremarkable for age. SOFT TISSUES: Unremarkable. IMPRESSION: Findings suspicious for CHF. DATA REPOSITORY: RADIATION DOSE DELIVERED:
--- NOTE | 2025-04-18 08:49 | W.ED.GENAD ---
Discharge Plan Disposition Patient Disposition: Admit to [facility] Discharge Details Clinical Impression: Acute kidney injury superimposed on CKD, Acute exacerbation of CHF (congestive heart failure) Admit Date/Time: 04/18/25 11:45 Admit Provider: Kolby Montejo Attending Provider: Kolby Montejo Primary Care Provider: Randy Mauricio ED Provider: Yancy Angela Discharge Data Discharge Date/Time-TO BE ENTERED AT DEPARTURE: 04/18/25 13:53 HPI <Yancy Burrell - Last Filed: 04/18/25 15:45> General Date/Time Provider Initiated Documentation: 04/18/25 08:26. HPI Narrative: Francie is a 65-year-old female who presents to the emergency department today for evaluation of persistent shortness of breath and bilateral lower extremity edema. She reports symptoms started 2 weeks ago and have been gradually worsening since onset. She has also had increased blood pressure, has been taking losartan and amlodipine as prescribed. She reports she is unable to lay flat in bed due to shortness of breath, has occasional lightheadedness that she says occurs when she has elevated blood pressure, and reports leg discomfort due to swelling. She has been sleeping in the recliner due to inability to sleep in bed, says that she has had some persistent lower back achiness for the last couple of days attributed to this; pain does not radiate and she has no distal numbness/tingling, weakness saddle anesthesia/paresthesias or history of trauma. She was evaluated in the emergency department a couple of days ago, was diagnosed with CHF and started on furosemide 20 mg daily. She also admits to some lower abdominal discomfort that has been ongoing for couple of days. Says that she has not had increased urination despite taking Lasix. Denies fever/chills, congestion, sore throat, cough, chest pain, nausea/vomiting, change in bowel or bladder function, hematuria or blood in stool. PMH significant for HTN, HLD, amyloidosis, lupus, antiphospholipid syndrome. Says she was on warfarin for a very long time to prevent clotting, however this was stopped after she developed pericardial effusion. Related Data Home Medications ?Medication ?Instructions ?Recorded ?Confirmed hydroxychloroquine 200 mg tablet 200 mg PO DAILY #30 tab-caps 11/16/16 04/18/25 levothyroxine 125 mcg tablet 150 mcg PO HS 05/25/17 04/18/25 albuterol sulfate 90 mcg/actuation 2 puff inhalation Q6H PRN 10/04/18 04/18/25 aerosol inhaler (ProAir HFA) shortness of breath calcium carbonate (Oyster Shell 500 mg PO DAILY 07/05/19 04/18/25 Calcium) losartan 100 1 tab PO DAILY 07/05/19 04/18/25 mg-hydrochlorothiazide 12.5 mg tablet acetaminophen 500 mg tablet 1,000 mg (2 x 500 mg) PO Q8H PRN 07/17/19 04/18/25 pain #90 tabs aspirin 81 mg tablet,delayed 81 mg PO DAILY 05/08/20 04/18/25 release ibuprofen 600 mg tablet 600 mg PO Q8H PRN pain #60 tabs 08/17/23 04/18/25 gabapentin 400 mg capsule 400 mg PO BID 05/20/24 04/18/25 amlodipine 2.5 mg tablet 2.5 mg PO DAILY 01/31/25 04/18/25 simvastatin 20 mg tablet 40 mg PO DAILY 01/31/25 04/18/25 furosemide 20 mg tablet (Lasix) 20 mg PO BID #10 tabs 04/13/25 04/18/25 magnesium oxide 500 mg capsule 500 mg PO DAILY #20 caps 04/13/25 04/18/25 fluticasone propionate 110 2 inh inhalation BID 04/18/25 04/18/25 mcg/actuation HFA aerosol inhaler loratadine 10 mg capsule (Allergy 10 mg PO DAILY 04/18/25 04/18/25 Relief (loratadine)) pramipexole 0.125 mg tablet 0.25 mg PO QPM 04/18/25 04/18/25 Previous Rx's ?Medication ?Instructions ?Recorded acetaminophen 500 mg tablet 1,000 mg (2 x 500 mg) PO Q8H PRN 07/17/19 pain #90 tabs ibuprofen 600 mg tablet 600 mg PO Q8H PRN pain #60 tabs 08/17/23 furosemide 20 mg tablet (Lasix) 20 mg PO BID #10 tabs 04/13/25 magnesium oxide 500 mg capsule 500 mg PO DAILY #20 caps 04/13/25 Allergies Allergy/AdvReac Type Severity Reaction Status Date / Time No Known Allergies Allergy Verified 04/18/25 08:32 General Stated Complaint: GenMedical PRISCILLA: 3 Exam <Yancy Stack Filed: 04/18/25 15:45> Narrative Exam Narrative: General Appearance: Normal. Patient is alert and oriented, no acute distress Vital signs: Significant hypertension noted, BP 202/68. O2 saturation 93% HEENT: Slightly tacky mucous membranes. Respiratory: Breath sounds clear bilaterally. Cardiovascular: Heart sounds present, no murmurs. + JVD, bilateral peripheral edema to proximal knee, no calf erythema or color change to extremity. Dorsalis pedis pulses able to be palpated. Radial pulses 2+, equal bilaterally. GI: Abdomen is soft, nondistended, no point tenderness on palpation. No palpable masses noted. Back, Musculoskeletal: Generalized tenderness in lower back on palpation, no lumbar point tenderness/step-off/deformity. Skin: Chronic ankle wound, approximately 2 cm diameter, no surrounding erythema. Neurological: 5/5 muscle strength to lower extremities, sensation grossly intact. Psychiatric: Normal. Course <Yancy Stack Filed: 04/18/25 15:45> Vital Signs Vital signs: Vital Signs Temperature 37.2 C 04/18/25 08:26 Pulse 71 04/18/25 08:26 Respiratory Rate 20 04/18/25 08:26 Blood Pressure 202/68 H 04/18/25 08:26 Pulse Oximetry 93 04/18/25 08:26 Temperature 37.2 C 04/18/25 08:33 Temperature Source Tympanic 04/18/25 08:33 Pulse 71 04/18/25 08:33 Respiratory Rate 20 04/18/25 08:33 Blood Pressure 202/68 H 04/18/25 08:33 Pulse Oximetry 93 04/18/25 08:33 Medical Decision Making <Yancy Stack Filed: 04/18/25 15:45> Initial Assessment: 65-year-old female with bilateral leg swelling, lower back pain, and dyspnea. Symptoms worsening over 2 weeks. History of hypertension, amyloidosis, hypothyroidism, and recently diagnosed CHF and acute kidney injury. She also has a chronic right medial ankle wound that is being followed by wound care. Differential Diagnosis includes but is not limited to: CHF, valvular dysfunction, cardiomyopathy, ACS, PNA, symptomatic anemia, PE/DVT, hypertensive emergency, thyroid dysfunction, electrolyte imbalance, kidney dysfunction, UTI, colitis/diverticulitis, muscle strain ED Course: - Blood work ordered -CXR -POCUS to evaluate for pulmonary edema I independently interpreted the following tests: EKG notable for normal sinus rhythm, rate 71, no changes consistent with acute ischemia. POCUS notable for extensive B-lines, L>R. CBC notable for mild anemia (10.9, 31.8). GAVIN noticed to be acutely worsening, creatinine and BUN today 3.0/63 versus 1.7 and 37 on 04/13/2025. Alkaline phosphatase elevated at 159, increased from 136 on 04/13/2025. BNP very elevated at 7717. T4 within normal limits. Chest x-ray noted to have increased interstitial markings bilaterally likely indicating CHF. Echocardiogram performed in ED, EF 65% with normal wall motion. Aortic valve noted to be mildly sclerotic with trace regurgitation, with mild mitral and tricuspid regurgitation. Ultrasound lower extremities performed to rule out DVT, no acute findings other than mildly enlarged right groin lymph nodes. CT chest/abdomen/pelvis performed, notable for adenopathy noted in mediastinum, jany, axilla, retroperitoneal iliac chains and inguinal regions. While in the ED, Francie was given her home dose of losartan (she took amlopidine this AM). 40 mg IV Lasix given for diuresis after discussing with Dr. Montejo, hospitalist. Presented case to Bonnie Peraza, hospitalist EDUARDO. She came into ED to evaluate patient, confirmed that she did discuss findings of adenopathy. Patient be admitted for GAVIN and CHF exacerbation. Clinical Impression: - CHF - GAVIN -adenopathy Disposition: ADMIT to [facility] Patient consented to the use of [facility] Imaging Data Radiologic Study: Radiologist's impression: Exam(s) CT CHEST/ABD/PEL WO EXAM: CT CHEST/ABD/PEL WO CLINICAL HISTORY: SOB, lower abd discomfort. TECHNIQUE: Imaging Protocol: Axial computed tomography images with coronal and sagittal reformatted images were created and reviewed. Computer aided detection (CAD) was utilized. CONTRAST MATERIAL: Noncontrast COMPARISON: CT CT CHEST WO from 11/19/[address] ABDOMEN PELVIS WO from 04/13/2025 CR XR CHEST 2V PA LATERAL from 04/18/2025 FINDINGS: CHEST: Pulmonary parenchyma: No consolidation. No dominant measurable mass. Arm there is interlobular septal thickening, greater at the lung bases. The findings are suspicious for pulmonary edema. There are few small scattered benign-appearing nodules. Tracheobronchial tree: No bronchiectasis. No mucous plugging.No bronchial wall thickening. Pleura: Small left and tiny right pleural effusions. No pneumothorax. Mediastinum: Within multiple small superior mediastinal lymph nodes. Subcarinal adenopathy measures 3.7 cm transverse. Mild bilateral hilar adenopathy also present. There mildly enlarged lymph nodes in both axilla. The all appear to have increased in size compared with the previous exam. Cardiovascular: Heart is mildly enlarged. There are mild coronary artery calcifications. No pericardial effusion. Thoracic aorta non-dilated. Bones: Unremarkable for age. No lytic or blastic lesions. No compression fractures. Soft tissues: Unremarkable. ABDOMEN and PELVIS: Liver: Enlarged at 19 cm in length. Normal density. No suspicious mass. Gallbladder and biliary tract: No evidence of stones or wall thickening. No biliary dilatation. Pancreas: Normal density, no abnormal calcifications or inflammatory process. Spleen: Enlarged, 16.5 cm. Kidneys: Normal size, contour and axis. No radiodense stones. No obstructive uropathy. No suspicious masses seen. Adrenal glands: No masses seen. Aorta: Abdominal portion non-dilated. Atherosclerotic changes. Lymph nodes: Mildly enlarged para-aortic lymph nodes. Enlarged bilateral iliac chain lymph nodes, largest on the left measuring 2.5 cm. The largest on the right, also 2.5 cm. Bilateral mildly enlarged inguinal lymph nodes. Soft tissues: Mild diffuse edema in the soft tissues Bladder: Unremarkable. Bowel: Extensive diverticulosis of the descending and sigmoid colon. No evidence of diverticulitis. The appendix appears normal. The small bowel and stomach are unremarkable. Peritoneal cavity: Small amount of fluid in the low pelvis, similar to prior. No focal collection. No mesenteric inflammatory response. No free air. Bones: In scoliosis and degenerative changes. No suspicious lesions. Reproductive organs: Unremarkable hysterectomy. IMPRESSION: Pulmonary findings consistent with pulmonary edema. Small bilateral pleural effusions. Adenopathy noted in the mediastinum, jany, axilla, retro peritoneal iliac chains and inguinal regions. Findings could indicate lymphoma. Hepatic splenomegaly also present. Diverticulosis without evidence of diverticulitis. Radiologic Study #2: Radiologist's impression: Exam(s) XR CHEST 2V PA LATERAL EXAM: XR CHEST 2V PA LATERAL CLINICAL HISTORY: Chest pain TECHNIQUE: 2D digital imaging was performed. Two views. COMPARISON: CR XR CHEST 2V PA LATERAL from 04/13/[address] CHEST/ABD/PEL WO from 04/18/2025 FINDINGS: HEART: Mildly enlarged Aorta: Not dilated. PULMONARY VASCULATURE: Mildly prominent MEDIASTINUM: Unremarkable. LUNGS: Increased interstitial markings bilaterally Which may indicate CHF. PLEURAL SPACE: Tiny left pleural effusion. No pneumothorax. BONE:Unremarkable for age. SOFT TISSUES: Unremarkable. IMPRESSION: Findings suspicious for CHF. Radiologic Study #3: Radiologist's impression: APPROVED REPORT EXAM: Comprehensive 2D, Doppler, and color-flow Echocardiogram Patient Location: ER Room/Bed: 8 Air Route Traffic Controller: Himanshu Jacques RDCS (AE) Indications: New onset CHF Other Information Study Quality: Good Conclusion Normal left ventricular wall thickness and chamber size. Ejection fraction is 65%. Wall motion is normal Normal right ventricular size and function Moderately dilated left atrium. Normal right atrial size The aortic valve is trileaflet and mildly sclerotic with trace regurgitation Mild mitral and tricuspid regurgitation Estimated right ventricular systolic pressure is 50 mmHg Mildly dilated ascending aorta 3.78 cm Wall motion Left Ventricle The left ventricle is normal size. The left ventricular systolic function is normal. The left ventricular ejection fraction is within the normal range. There is normal left ventricular wall thickness. There is normal LV segmental wall motion. There is no ventricular septal defect visualized. LVEF is 65%. Right Ventricle The right ventricle is normal size. The right ventricular systolic function is normal. Atria Left atrium is moderately dilated. The right atrium size is normal. The interatrial septum is intact with no evidence for an atrial septal defect. Aortic Valve The aortic valve is mildly sclerotic. No hemodynamically significant valvular aortic stenosis. Trace aortic regurgitation. Mitral Valve The mitral valve is normal in structure. No evidence of mitral valve stenosis. Mild mitral regurgitation. Tricuspid Valve The tricuspid valve is normal in structure. There is no tricuspid valve stenosis. Mild tricuspid regurgitation. The RVSP is 50.5 mmHg. Pulmonic Valve The pulmonary valve is normal in structure. There is no pulmonic valvular stenosis. There is no pulmonic valvular regurgitation. Great Vessels The aortic root is normal in size. The ascending aorta is mildly dilated. Aortic arch is normal in caliber. IVC is normal in size and collapses >50% with inspiration. Pericardium There is no pericardial effusion. 2D Dimensions IVSD d PLAX 0.75 cm F: 0.6-1.0 Ao Root d 2.98 cm F: 2.7 - 3.3 LVPW d PLAX 0.75 cm F: 0.6 - 1.0 Ao Asc Diam d 3.78 cm F: 2.3 - 3.1 LVID d PLAX 5.84 cm F: 3.8 - 5.2 LVDs 3.75 cm F: 2.2 - 3.5 LV EF Teichholz 64.5 % FS 35.80 % LV EDV (Teich) 169.5 mL LV ESV (Teich) 60.1 mL Stroke Vol Index (Teich) 54.16 M-Mode TAPSE 3.59 cm (M/F) >1.7 Auto EF LV EDV A4C 124.0 mL LV EDV A2C 136.3 mL LV EDV BP 131.5 mL LV ESV A4C 43.0 mL LV ESV A2C 47.6 mL LV ESV BP 44.8 mL LVEF(%) A4C 65.4 % LVEF(%) A2C 65.1 % LVEF(%) BP 65.9 % LV SV A4C 81.1 ml LV SV A2C 88.8 ml LV SV BP 86.6 ml LV CO A4C 5.6 L/min LV CO A2C 6.2 L/min LV CO BP 5.9 L/min HR A4C 68.71 BPM HR A2C 70.04 BPM LV EDV Index (BP) LA Volume LA Length A4C 5.8 cm LA Length A2C 5.1 cm LA Area A4C s 18.13 cm2 LA Area A2C s 15.49 cm2 LA Vol A4C A-L 48.41 mL LA Vol A2C A-L 40.12 mL LA Vol Biplane A-L 47.0 mL LA Vol/BSA A4C A-L LA Vol/BSA A2C A-L LA Vol/BSA BP A-L 23.2 mL/m2 LA Vol A4C MOD 45.8 mL LA Vol A2C MOD 38.4 mL LA Vol BP MOD 44.6 mL RA Volume RA Area A4C 11.8 cm2 RA ESV A4C (A-L) 25.4mL RA Vol/BSA A4C A-L RA Length A4C 4.7 cm RA ESV A4C (MOD) 25.2mL LV Diastology MV E' medial 0.108 (>0.07 m/s) MV E Vmax 1.10 (0.4-1.3 m/s) MV E/E' MED 10.14 (<14) MV A Vmax 0.95 (0.4-1.3 m/s) MV E' lateral 0.105 (>0.1 m/s) E/A Ratio 1.2 MV E/E' LAT 10.40 (<14) MV E' Average 0.107 m/s MV E/E'(average) 10.27 Aortic Valve AoV Vmax 2.16 m/s LVOT Vmax 1.14 m/s AoV Peak Grad 18.6 mmHg LVOT Peak Grad 5.2 mmHg AoV Area (Vmax) 1.36 cm2 LVOT VTI 0.316 m AoV VTI 0.544 m LVOT Mean Grad 3.0 mmHg AoV Mean Felix. 1.43 m/s LVOT SV 81.34 mL AoV Mean Grad 9.4 mmHg LVOT Diam s 1.80 cm AoV Area (VTI) 1.50 cm2 AV Regurg Peak Gr. 18.58 mmHg Velocity Ratio 0.53 Mitral Valve MV DT 144 (160-240 msec) Tricuspid Valve RA Pressure 3.00 mmHg TR Vmax 3.45 m/s TR Peak Grad 47.4 mmHg RVSP (TR) 50.5 mmHg Quality:SDOH Health Related Social Needs: Health related social needs inadequate housing transpo insecurity lonely/isolated Health related social needs details old house <Evan Whitmore MD - Last Filed: 04/25/25 09:05> Date: 04/18/25 Time: 10:29 Note: Case was discussed and reviewed with NASEEM Burrell. I agree with treatment plan as discussed. POCUS performed and consistent with chf. Clinical impression: Acute CHF exacerbation refractory to outpatient treatment. Also GAVIN noted. PFSH <Yancy Burrell - Last Filed: 04/18/25 15:45> All Active Problems (Updated 04/23/25 @ 20:43 by Bonnie Peraza APRN) Microcytic anemia (Acute) Hyperglycemia, drug-induced (Acute) Hyperkalemia (Acute) Hypokalemia (Acute) Lupus nephritis (Acute) Lupus (systemic lupus erythematosus) (Chronic) Hydronephrosis, left (Acute) Abdominal pain (Acute) On deep vein thrombosis (DVT) prophylaxis (Acute) Acute exacerbation of CHF (congestive heart failure) (Acute) Acute kidney injury superimposed on CKD (Acute) Hypertension (Chronic) Hematuria (Acute) GAVIN (acute kidney injury) (Acute) Mild peripheral edema (Acute) CHF (congestive heart failure) (Chronic) Cutaneous amyloidosis (Acute) Leg wound, right (Acute) Chronic wound (Acute) Left knee DJD (Chronic) Depo-medrol injection: 02/27/25; 11/28/2024; 08/29/24; 05/30/2024; 02/26/2024; 11/27/2023; 08/17/23 Headache (Acute) Urinary tract infection (Acute) Colovaginal fistula (Acute) Diverticulitis of sigmoid colon (Acute) Amyloidosis (Chronic) Herniated nucleus pulposus, lumbar (Chronic) Antiphospholipid syndrome (Chronic) Trigger thumb of right hand (Acute) Trigger thumb of left hand (Chronic) Nasal vestibulitis (Acute 11/02/17) Nasal congestion (Acute 06/19/14) Deviated nasal septum (Acute 06/19/14) Cephalgia (Acute 11/20/14) Constipation (Chronic) as above HTN (hypertension) (Chronic) GERD (gastroesophageal reflux disease) (Chronic) stable Lupus (Chronic) Medical History (Updated 04/23/25 @ 20:43 by Bonnie Peraza APRN) Primary localized cutaneous amyloidosis Cellulitis of right lower limb Lymphocytopenia Normal colonoscopy [place] 11/13/[address] Natalya Styles at [facility], severe diverticular dz, repeat 10 years. mg Hypocalcemia Asthma Allergic rhinitis Abnormal mammogram of right breast Degenerative joint disease Hyperlipidemia Pericarditis Eczema Chest wall pain Insomnia Sciatica, left side Surgical History 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) History of bone marrow biopsy S/P thyroidectomy H/O: hysterectomy Tonsillectomy Social History Smoking/Tobacco Use Status: Former Tobacco Use Quit Date: 08/14/99 Smoking risk assessment performed?: Yes Alcohol Intake: current Alcohol Intake frequency: a few times a week Alcohol type: beer and wine Drug use: Never Substance use type: does not use Housing: house Current gender identity: female Do you feel safe at home: Yes Do you feel safe in your relationship?: Yes PAWDELMY <Yancy Burrell - Last Filed: 04/18/25 15:45> Have you Been Recently Intoxicated or Drunk Within the Last 30 days?: No Have you Ever Experienced Previous Episodes of Alcohol Withdrawal?: No Have you ever Experienced Withdrawal Seizures?: No Have you ever Experienced Delirium Tremens(DT)s?: No Have you ever undergone Alcohol Rehabilitation Treatment (i.e, inpt ot outpatient treatment programs)?: No Have you ever Experienced Blackouts?: No Have you ever Combined Alcohol with other Downers within the last 90 days?: No Have you ever Combined Alcohol with any other Substance of Abuse during the last 90 days?: No Positive Blood Alcohol level on Presentation? [PCS.BAL]: No Evidence of Increased Autonomic Activity (i.e. HR>120, tremor, sweating, agitation, nausea)?: No Result: 0 <Evan Whitmore MD - Last Filed: 04/25/25 09:05> Result: 0 POCUS Exam (ED) <Evan Whitmore MD - Last Filed: 04/25/25 09:05> Limited Thoracic Lung Exam DATE OF EXAM: 04/18/25 TIME OF EXAM: 10:00 PROVIDER THAT PERFORMED THE STUDY: Evan Whitmore IS THIS A REPEAT EXAM DURING THIS ENCOUNTER: No REASON FOR EXAM: Shortness ofBreath VISUALIZED STRUCTURES: right anterior and left anterior PERTINENT FINDINGS/IMPRESSION: B-lines/left side and B-lines/right side DIFFERENTIAL DIAGNOSES: chf Exam complete
--- NOTE | 2025-04-18 08:55 | DI.US_ITS ---
Exam(s) US EXTREMITY VENOUS BI EXAM: US EXTREMITY VENOUS BI CLINICAL HISTORY: bilat LE edema, h/o hypercoagulable state. TECHNIQUE: Bilateral lower extremity venous ultrasound performed using grayscale, color-flow, and spectral Doppler analysis. COMPARISON: CR XR TIB/FIB RT from 04/04/2025 FINDINGS: The bilateral common femoral, femoral and popliteal veins demonstrate normal compressibility, augmentation, and color Doppler. The posterior tibial and peroneal veins are patent. There is edema in the subcutaneous fat of the lower legs. Soft tissue calcifications are also seen. There are mildly enlarged right groin lymph nodes. IMPRESSION: Right: Negative for DVT Left: Negative for DVT DATA REPOSITORY:
--- NOTE | 2025-04-18 09:01 | W.ED.GENAD ---
Discharge Plan Discharge Details Chief Complaint: GenMedical Primary Care Provider: Randy Mauricio ED Provider: Yancy Angela Home Meds and New Rx's Prescriptions: No Action ibuprofen 600 mg tablet 600 mg PO Q8H PRN (Reason: pain) Qty: 60 3RF albuterol sulfate [ProAir HFA] 90 mcg/actuation HFA aerosol inhaler 2 puff Inhalation Q6H PRN (Reason: shortness of breath) hydroxychloroquine 200 MG tablet 200 mg PO DAILY Qty: 30 levothyroxine 125 MCG tablet 125 mcg PO HS amlodipine 2.5 mg tablet 2.5 mg PO DAILY simvastatin 20 mg tablet 40 mg PO DAILY calcium carbonate [Oyster Shell Calcium] 500 mg calcium (1,250 mg) Tablet 500 mg PO DAILY losartan-hydrochlorothiazide 100-12.5 mg Tablet 1 tab PO DAILY pramipexole 0.25 mg Tablet 0.25 mg PO QHS acetaminophen 500 mg tablet 1,000 mg PO Q8H PRN (Reason: pain) Qty: 90 3RF gabapentin 400 mg capsule 400 mg PO BID Patient Comments: TAKE ONE CAPSULE BY MOUTH TWICE A DAY aspirin 81 mg Tablet,Delayed Release (Dr/Ec) 81 mg PO DAILY lidocaine [Lidoderm] 5 % adhesive patch,medicated 1 patch Topical Q24H Qty: 15 0RF furosemide [Lasix] 20 mg tablet 20 mg PO BID Qty: 10 0RF magnesium oxide 500 mg capsule 500 mg PO DAILY Qty: 20 0RF HPI General Date/Time Provider Initiated Documentation: 04/18/25 08:26. HPI Narrative: This chad 65-year-old female with history of hypertension, amyloidosis, lupus presents with shortness of breath and peripheral edema some intermittent back pain. Denies any chest pain. Denies any history of similar symptoms in the past. States she has an element of peripheral edema but that it is worse today. She has not unhealing wound which is considered to be an amyloid plaque on her leg which is followed by surgery. Patient denies orthopnea Related Data Home Medications ?Medication ?Instructions ?Recorded ?Confirmed hydroxychloroquine 200 mg tablet 200 mg PO DAILY #30 tab-caps 11/16/16 04/18/25 levothyroxine 125 mcg tablet 125 mcg PO HS 05/25/17 04/18/25 albuterol sulfate 90 mcg/actuation 2 puff inhalation Q6H PRN 10/04/18 04/18/25 aerosol inhaler (ProAir HFA) shortness of breath calcium carbonate (Oyster Shell 500 mg PO DAILY 07/05/19 04/18/25 Calcium) losartan 100 1 tab PO DAILY 07/05/19 04/18/25 mg-hydrochlorothiazide 12.5 mg tablet pramipexole 0.25 mg tablet 0.25 mg PO QHS 07/05/19 04/18/25 acetaminophen 500 mg tablet 1,000 mg (2 x 500 mg) PO Q8H PRN 07/17/19 04/18/25 pain #90 tabs aspirin 81 mg tablet,delayed 81 mg PO DAILY 05/08/20 04/18/25 release ibuprofen 600 mg tablet 600 mg PO Q8H PRN pain #60 tabs 08/17/23 04/18/25 gabapentin 400 mg capsule 400 mg PO BID 05/20/24 04/18/25 amlodipine 2.5 mg tablet 2.5 mg PO DAILY 01/31/25 04/18/25 simvastatin 20 mg tablet 40 mg PO DAILY 01/31/25 04/18/25 lidocaine 5 % topical patch 1 patch topical Q24H #15 ea 04/04/25 04/18/25 (Lidoderm) furosemide 20 mg tablet (Lasix) 20 mg PO BID #10 tabs 04/13/25 04/18/25 magnesium oxide 500 mg capsule 500 mg PO DAILY #20 caps 04/13/25 04/18/25 Previous Rx's ?Medication ?Instructions ?Recorded acetaminophen 500 mg tablet 1,000 mg (2 x 500 mg) PO Q8H PRN 07/17/19 pain #90 tabs ibuprofen 600 mg tablet 600 mg PO Q8H PRN pain #60 tabs 08/17/23 lidocaine 5 % topical patch 1 patch topical Q24H #15 ea 04/04/25 (Lidoderm) furosemide 20 mg tablet (Lasix) 20 mg PO BID #10 tabs 04/13/25 magnesium oxide 500 mg capsule 500 mg PO DAILY #20 caps 04/13/25 Allergies Allergy/AdvReac Type Severity Reaction Status Date / Time No Known Allergies Allergy Verified 04/18/25 08:32 General Stated Complaint: GenMedical PRISCILLA: 3 Exam Narrative Exam Narrative: Alert and oriented 65-year-old female presenting in no acute distress crackles at bases of lungs cardiac rate rhythm regular no CVA tenderness no abdominal tenderness 2+ edema to bilateral lower extremities left lower extremity with wound with dressing no surrounding cellulitis nontender calves Course Vital Signs Vital signs: Vital Signs Temperature 37.2 C 04/18/25 08:26 Pulse 71 04/18/25 08:26 Respiratory Rate 20 04/18/25 08:26 Blood Pressure 202/68 H 04/18/25 08:26 Pulse Oximetry 93 04/18/25 08:26 Temperature 37.2 C 04/18/25 08:33 Temperature Source Tympanic 04/18/25 08:33 Pulse 71 04/18/25 08:33 Respiratory Rate 20 04/18/25 08:33 Blood Pressure 202/68 H 04/18/25 08:33 Pulse Oximetry 93 04/18/25 08:33 Medical Decision Making Results: Patient with TSH of 7, free T4 within normal limits CBC reassuring With new GAVIN with a creatinine of 1.9 and a GFR of 29 with hematuria microscopic no gross hematuria. BNP 3690 CT abdomen and pelvis without significant acute abnormality aside from bilateral small pleural effusions per radiology interpretation my review. Chest x-ray with likely small pleural effusion pending over read from radiology Assessment and plan: Patient with new GAVIN mildly elevated blood pressure 160/70, new onset volume overload status BNP of 3690. POCUS performed with Dr. Abernathy, please see his documentation reassuring POCUS of eval. At this time I am recommending admission given the new GAVIN with dyspnea. Patient was given 20 mg of Lasix in the emergency department however I think given the new onset CHF she should have a dedicated echocardiogram and continued monitoring of volume status. I did speak with the cloth mercerizer back tender at [facility] regarding they GAVIN with blood in urine and history of annular doses however he suspects this is postrenal and unlikely related to the amyloidosis. While patient is well in appearance and her vitals are relatively stable I do think she is at risk for decompensation given the GAVIN and the presence of CHF. She prefers discharge home and I did discuss that she be leaving against medical recommendation. She understands she should be reevaluated at her earliest ability and states she does not need to go home as she has a new puppy at home. She is fully alert and oriented throughout my assessment and is agreeable to take Lasix sparingly at home and follow-up with her primary care physician as her earliest ability [facility] All Active Problems (Updated 04/13/25 @ 14:12 by KOLE Killian) Hypertension (Chronic) Hematuria (Acute) GAVIN (acute kidney injury) (Acute) Mild peripheral edema (Acute) CHF (congestive heart failure) (Chronic) Cutaneous amyloidosis (Acute) Leg wound, right (Acute) Chronic wound (Acute) Left knee DJD (Chronic) Depo-medrol injection: 02/27/25; 11/28/2024; 08/29/24; 05/30/2024; 02/26/2024; 11/27/2023; 08/17/23 Headache (Acute) Urinary tract infection (Acute) Colovaginal fistula (Acute) Diverticulitis of sigmoid colon (Acute) Amyloidosis (Chronic) Herniated nucleus pulposus, lumbar (Chronic) Antiphospholipid syndrome (Chronic) Trigger thumb of right hand (Acute) Trigger thumb of left hand (Chronic) Nasal vestibulitis (Acute 11/02/17) Nasal congestion (Acute 06/19/14) Deviated nasal septum (Acute 06/19/14) Cephalgia (Acute 11/20/14) Constipation (Chronic) as above HTN (hypertension) (Chronic) GERD (gastroesophageal reflux disease) (Chronic) stable Lupus (Chronic) Medical History (Updated 04/13/25 @ 14:12 by KOLE Killian) Primary localized cutaneous amyloidosis Cellulitis of right lower limb Lymphocytopenia Normal colonoscopy [place] 11/13/[address] Natalya Styles at [facility], severe diverticular dz, repeat 10 years. mg Hypocalcemia Asthma Allergic rhinitis Abnormal mammogram of right breast Degenerative joint disease Hyperlipidemia Pericarditis Eczema Chest wall pain Insomnia Sciatica, left side Surgical History 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) History of bone marrow biopsy S/P thyroidectomy H/O: hysterectomy Tonsillectomy Social History Smoking/Tobacco Use Status: Former Tobacco Use Quit Date: 08/14/99 Smoking risk assessment performed?: Yes Alcohol Intake: current Alcohol Intake frequency: a few times a week Alcohol type: beer and wine Drug use: Never Substance use type: does not use Housing: house Current gender identity: female Do you feel safe at home: Yes Do you feel safe in your relationship?: Yes PAWSS Have you Been Recently Intoxicated or Drunk Within the Last 30 days?: No Have you Ever Experienced Previous Episodes of Alcohol Withdrawal?: No Have you ever Experienced Withdrawal Seizures?: No Have you ever Experienced Delirium Tremens(DT)s?: No Have you ever undergone Alcohol Rehabilitation Treatment (i.e, inpt ot outpatient treatment programs)?: No Have you ever Experienced Blackouts?: No Have you ever Combined Alcohol with other Downers within the last 90 days?: No Have you ever Combined Alcohol with any other Substance of Abuse during the last 90 days?: No Positive Blood Alcohol level on Presentation? [PCS.BAL]: No Evidence of Increased Autonomic Activity (i.e. HR>120, tremor, sweating, agitation, nausea)?: No Result: 0
[2025-04-18 09:10] LABS: Abs Immature Grans 0.02 10^3/uL (0.0-0.06); HCT 31.8 % (36.0-46.0); HGB 10.9 g/dL (11.2-15.7); Immature Grans % 0.3 %; MCH 26.8 pg (27.0-33.0); MCHC 34.3 % (32.0-36.0); MCV 78 fL (80-95); MPV 9.1 fL (8.0-11.0); Platelet Count 181 10^3/uL (130-400); RBC 4.07 10^6/uL (3.93-5.22); RDW 13.9 % (11.7-14.6); RDW-SD 39.8 fL; WBC 6.26 10^3/uL (4.4-10.8)
[2025-04-18 09:41] LABS: TSH 12.31 uIU/mL (0.36-3.74); TSH (W/Ref FT4) 12.31 uIU/mL (0.36-3.74)
[2025-04-18] MEDS: Losartan 50 MG TAB 100 MG PO (09:50)
[2025-04-18] MEDS: Furosemide 40 MG/4 ML VIAL IVP ×2 (09:50→15:39)
[2025-04-18 09:58] LABS: ALT 20 U/L (14-59); AST 20 U/L (15-37); Albumin 3.2 g/dL (3.4-5.0); Alkaline Phosphatase 159 U/L (46-116); Anion Gap 9.3 mmol/L (3-11); BUN 63 mg/dL (7-18); Bilirubin, Total 0.5 mg/dL (0.2-1.0); CO2 27.7 mmol/L (21.0-32.0); Calcium 9.0 mg/dL (8.5-10.1); Chloride 100 mmol/L (98-107); Estimated GFR 16.94 (mL/min/1.73m2); Glucose 100 mg/dL (74-106); Magnesium 2.2 mg/dL (1.8-2.4); NT-proBNP 7717 pg/mL (<300); Potassium 4.5 mmol/L (3.5-5.1); Sodium 137 mmol/L (136-145); Total Protein 6.2 g/dL (6.4-8.2); Troponin I 7 ng/L (<or=51)
--- NOTE | 2025-04-18 10:15 | DI.CT_ITS ---
Exam(s) CT CHEST/ABD/PEL WO EXAM: CT CHEST/ABD/PEL WO CLINICAL HISTORY: SOB, lower abd discomfort. TECHNIQUE: Imaging Protocol: Axial computed tomography images with coronal and sagittal reformatted images were created and reviewed. Computer aided detection (CAD) was utilized. CONTRAST MATERIAL: Noncontrast COMPARISON: CT CT CHEST WO from 11/19/[address] ABDOMEN PELVIS WO from 04/13/2025 CR XR CHEST 2V PA LATERAL from 04/18/2025 FINDINGS: CHEST: Pulmonary parenchyma: No consolidation. No dominant measurable mass. Arm there is interlobular septal thickening, greater at the lung bases. The findings are suspicious for pulmonary edema. There are few small scattered benign-appearing nodules. Tracheobronchial tree: No bronchiectasis. No mucous plugging.No bronchial wall thickening. Pleura: Small left and tiny right pleural effusions. No pneumothorax. Mediastinum: Within multiple small superior mediastinal lymph nodes. Subcarinal adenopathy measures 3.7 cm transverse. Mild bilateral hilar adenopathy also present. There mildly enlarged lymph nodes in both axilla. The all appear to have increased in size compared with the previous exam. Cardiovascular: Heart is mildly enlarged. There are mild coronary artery calcifications. No pericardial effusion. Thoracic aorta non-dilated. Bones: Unremarkable for age. No lytic or blastic lesions. No compression fractures. Soft tissues: Unremarkable. ABDOMEN and PELVIS: Liver: Enlarged at 19 cm in length. Normal density. No suspicious mass. Gallbladder and biliary tract: No evidence of stones or wall thickening. No biliary dilatation. Pancreas: Normal density, no abnormal calcifications or inflammatory process. Spleen: Enlarged, 16.5 cm. Kidneys: Normal size, contour and axis. No radiodense stones. No obstructive uropathy. No suspicious masses seen. Adrenal glands: No masses seen. Aorta: Abdominal portion non-dilated. Atherosclerotic changes. Lymph nodes: Mildly enlarged para-aortic lymph nodes. Enlarged bilateral iliac chain lymph nodes, largest on the left measuring 2.5 cm. The largest on the right, also 2.5 cm. Bilateral mildly enlarged inguinal lymph nodes. Soft tissues: Mild diffuse edema in the soft tissues Bladder: Unremarkable. Bowel: Extensive diverticulosis of the descending and sigmoid colon. No evidence of diverticulitis. The appendix appears normal. The small bowel and stomach are unremarkable. Peritoneal cavity: Small amount of fluid in the low pelvis, similar to prior. No focal collection. No mesenteric inflammatory response. No free air. Bones: In scoliosis and degenerative changes. No suspicious lesions. Reproductive organs: Unremarkable hysterectomy. IMPRESSION: Pulmonary findings consistent with pulmonary edema. Small bilateral pleural effusions. Adenopathy noted in the mediastinum, jany, axilla, retro peritoneal iliac chains and inguinal regions. Findings could indicate lymphoma. Hepatic splenomegaly also present. Diverticulosis without evidence of diverticulitis. RADIATION DOSE DELIVERED: Total DLP DATA REPOSITORY: All CT scans at this facility are submitted to the National Radiology Data Registry (NRDR) Dose Index Registry (DIR) with the [employer] (ACR). RADIATION OPTIMIZATION: All CT scans at this facility use at least one of these dose optimization techniques: automated exposure control; mA and/or kV adjustment per patient size (includes targeted exams where dose is matched to clinical indication); or iterative reconstruction.
[2025-04-18 10:25] LABS: Troponin I 7 ng/L (<or=51)
--- NOTE | 2025-04-18 11:24 | HPE_ITS ---
Date of service: 04/18/25 Time of Service: 11:25 Assessment and Plan Assessment and plan (1) Acute exacerbation of CHF (congestive heart failure): Status: Acute Assessment and plan: BNP > 7000 today , was 3690 on 04/13, lower ext edema and orthopnea trop negative X1 B-line on POCUS Echo pending IV lasix BID consider IV albumin to transiently shift fluid to intravascular space prior to lasix if no improvement or flat IVC telemetry Labs in AM (2) Acute kidney injury superimposed on CKD: Status: Acute Assessment and plan: In the setting of point 1 , this can be d/t renal bed congestion VS pre-renal GAVIN Expecting Cr to trend down with treatment of point on Continue to monitor and adjust treatment as per working Dx Labs in AM (3) Hypertension: Status: Chronic Assessment and plan: Hold thiazide and ARBs while on IV furosemide Norvasc and consider PRN dosing (4) Leg wound, right: Status: Acute Assessment and plan: Chronic continue care as per HH standing orders (5) Hyperlipidemia: Assessment and plan: On home statin dose (6) On deep vein thrombosis (DVT) prophylaxis: Status: Acute Assessment and plan: ON LMWH Discussed with Dr. Montejo History of Present Illness Narrative: 65-year-old female with PMH significant for HTN, HLD, amyloidosis, lupus, antiphospholipid syndrome no longer on warfarin d/t pericardial effusion , chronic right medial ankle wound that is being followed by wound care presented to the emergency department for evaluation of persistent shortness of breath and bilateral lower extremity edema starting 2 weeks ago and have been gradually worsening since onset; also seen in the ED on 04/15 25 and discharged on on new oral lasix for similar presentation. Increased blood pressure on presentation while complaint with home losartan and amlodipine. as prescribed. C/o been unable to lay flat in bed due to shortness of breath, has occasional lightheadedness that she says occurs when she has elevated blood pressure, and reports leg discomfort due to swelling. C/o persistent lower back and lower ABD achiness and for the last couple of days w/o radiation no distal numbness/tingling, no weakness saddle anesthesia/paresthesias or history of trauma, chills, fevers,chest pain, nausea, vomiting, constipation, diarrhea or dysuria. EKG was negative for coronary occlusion or ischemia, troponin negative x3, Cr 3.0 from 2.3 with normal baseline in 11/2024.POCUS completed by ED provider was notable for extensive B-lines, L>R. CBC sshowed mild anemia w/o thrombocytopenia or report of blood loss. lower ext imaging negative for DVT, CT of the chest abd and pelvis showed pulmonary edema. Small bilateral pleural effusions, adenopathy in the mediastinum, jany, axilla, retro peritoneal iliac chains and inguinal regions; suspicious for lymphoma; hepatic splenomegaly also present. The patient was admitted to the medical surgical floor for CHF exacerbation, GAVIN d/t most likely to renal bed congestion VS pre-renal or post -renal GAVIN. Full code satus confirmed Review of Systems All systems reviewed & are unremarkable except as noted in HPI and below PFSH All Active Problems (Updated 04/18/25 @ 15:45 by Yancy Burrell) On deep vein thrombosis (DVT) prophylaxis (Acute) Acute exacerbation of CHF (congestive heart failure) (Acute) Acute kidney injury superimposed on CKD (Acute) Hypertension (Chronic) Hematuria (Acute) GAVIN (acute kidney injury) (Acute) Mild peripheral edema (Acute) CHF (congestive heart failure) (Chronic) Cutaneous amyloidosis (Acute) Leg wound, right (Acute) Chronic wound (Acute) Left knee DJD (Chronic) Depo-medrol injection: 02/27/25; 11/28/2024; 08/29/24; 05/30/2024; 02/26/2024; 11/27/2023; 08/17/23 Headache (Acute) Urinary tract infection (Acute) Colovaginal fistula (Acute) Diverticulitis of sigmoid colon (Acute) Amyloidosis (Chronic) Herniated nucleus pulposus, lumbar (Chronic) Antiphospholipid syndrome (Chronic) Trigger thumb of right hand (Acute) Trigger thumb of left hand (Chronic) Nasal vestibulitis (Acute 11/02/17) Nasal congestion (Acute 06/19/14) Deviated nasal septum (Acute 06/19/14) Cephalgia (Acute 11/20/14) Constipation (Chronic) as above HTN (hypertension) (Chronic) GERD (gastroesophageal reflux disease) (Chronic) stable Lupus (Chronic) Medical History (Updated 04/18/25 @ 15:45 by Yancy Burrell) Primary localized cutaneous amyloidosis Cellulitis of right lower limb Lymphocytopenia Normal colonoscopy [place] 11/13/[address] Natalya Styles at [facility], severe diverticular dz, repeat 10 years. mg Hypocalcemia Asthma Allergic rhinitis Abnormal mammogram of right breast Degenerative joint disease Hyperlipidemia Pericarditis Eczema Chest wall pain Insomnia Sciatica, left side Surgical History 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) History of bone marrow biopsy S/P thyroidectomy H/O: hysterectomy Tonsillectomy Social History Smoking/Tobacco Use Status: Former Tobacco Use Quit Date: 08/14/99 Smoking risk assessment performed?: Yes Alcohol Intake: current Alcohol Intake frequency: a few times a week Alcohol type: beer and wine Drug use: Never Substance use type: does not use Housing: house Current gender identity: female Do you feel safe at home: Yes Do you feel safe in your relationship?: Yes Meds Allergies and Home Medications Allergies Allergy/AdvReac Type Severity Reaction Status Date / Time No Known Allergies Allergy Verified 04/18/25 08:32 Home Medications ?Medication ?Instructions ?Recorded ?Confirmed ?Type hydroxychloroquine 200 mg tablet 200 mg PO DAILY #30 t ab-caps 11/16/16 04/18/25 History levothyroxine 125 mcg tablet 150 mcg PO HS 05/25/17 History albuterol sulfate 90 mcg/actuation 2 puff inhalation Q 6H PRN 10/04/18 04/18/25 History aerosol inhaler (ProAir HFA) shortness of breath calcium carbonate (Oyster Shell 500 mg PO DAILY 04/18/25 History Calcium) losartan 100 1 tab PO DAILY 07/05/1901/05 History mg-hydrochlorothiazide 12.5 mg tablet acetaminophen 500 mg tablet 1,000 mg (2 x 500 mg) PO Q 8H PRN 07/17/19 04/18/25 Rx pain #90 tabs aspirin 81 mg tablet,delayed 81 mg PO DAILY 05/08/20 0 04/18/25 History release ibuprofen 600 mg tablet 600 mg PO Q8H PRN pain #60 t abs 08/17/23 04/18/25 Rx gabapentin 400 mg capsule 400 mg PO BID 05/20/2404/18 History amlodipine 2.5 mg tablet 2.5 mg PO DAILY 01/31/2501/05 History simvastatin 20 mg tablet 40 mg PO DAILY 01/31/25/01/05 History furosemide 20 mg tablet (Lasix) 20 mg PO BID #10 tabs 04/13/25 04/18/25 Rx magnesium oxide 500 mg capsule 500 mg PO DAILY #20 cap s 04/13/25 04/18/25 Rx fluticasone propionate 110 2 inh inhalation BID 04/18/25 History mcg/actuation HFA aerosol inhaler loratadine 10 mg capsule (Allergy 10 mg PO DAILY 04/1804/18/25 History Relief (loratadine)) pramipexole 0.125 mg tablet 0.25 mg PO QPM 04/18/25 History Exam Narrative Exam Narrative: 65-year-old female w/o acute distress neurologically intact, + JVD, decreased bibasilar breath sounds , cardiac rate rhythm regular 3+ edema to bilateral lower extremities , no CVA tenderness, lower insulation board back tender to palpation ,abdomen is large, non- distended , soft , tenderness to bilat lower quadrants, right ankle with wound with dressing no surrounding cellulitis - Results Labs 04/18/25 08:35 04/18/25 08:35 Labs: Laboratory Results - last 24 hr 04/18/25 04/18/25 08:35 09:37 WBC 6.26 RBC 4.07 Hgb 10.9 L Hct 31.8 L MCV 78 L MCH 26.8 L MCHC 34.3 RDW 13.9 Plt Count 181 MPV 9.1 Immature Gran % 0.3 Neutrophils % 80.7 Lymphocytes % 6.4 Monocytes % 9.4 Eosinophils % 2.9 Basophils % 0.3 Nucleated RBC % 0.0 Absolute Neutrophils 5.05 Absolute Lymphocytes 0.40 L Absolute Monocytes 0.59 Absolute Eosinophils 0.18 Absolute Basophils 0.02 Sodium 137 Potassium 4.5 Chloride 100 Carbon Dioxide 27.7 Anion Gap 9.3 BUN 63 H Creatinine 3.0 H Est GFR (CKD-EPI 2020) 16.94 Glucose 100 Calcium 9.0 Magnesium 2.2 Total Bilirubin 0.5 AST 20 ALT 20 Alkaline Phosphatase 159 H Troponin I 7 7 NT-Pro-B Natriuret Pep 7717 H Total Protein 6.2 L Albumin 3.2 L TSH 12.31 H Free T4 1.05 Last Vital Signs Temp 37.2 C 04/18/25 08:33 Pulse 68 04/18/25 10:22 Resp 15 04/18/25 10:22 BP 221/92 H 04/18/25 10:22 Pulse Ox 92 04/18/25 10:22 PAWSS Have you Been Recently Intoxicated or Drunk Within the Last 30 days?: No Have you Ever Experienced Previous Episodes of Alcohol Withdrawal?: No Have you ever Experienced Withdrawal Seizures?: No Have you ever Experienced Delirium Tremens(DT)s?: No Have you ever undergone Alcohol Rehabilitation Treatment (i.e, inpt ot outpatient treatment programs)?: No Have you ever Experienced Blackouts?: No Have you ever Combined Alcohol with other Downers within the last 90 days?: No Have you ever Combined Alcohol with any other Substance of Abuse during the last 90 days?: No Positive Blood Alcohol level on Presentation? [PCS.BAL]: No Evidence of Increased Autonomic Activity (i.e. HR>120, tremor, sweating, agitation, nausea)?: No Result: 0 Time Spent Time spent with Patient: >75 minutes Time was spent: preparing to see the patient(eg.review tests), obtaining and/or reviewing separately otained hiistory, ordering medications,tests, procedures, referring, communicating with other health health care specialist, indepentently interpreting results, counseling the patient, care coordination and other
--- NOTE | 2025-04-18 11:30 | DI.US_ITS ---
APPROVED REPORT EXAM: Comprehensive 2D, Doppler, and color-flow Echocardiogram Patient Location: ER Room/Bed: 8 Pumper Gager: Himanshu Jacques RDCS (AE) Indications: New onset CHF Other Information Study Quality: Good Conclusion Normal left ventricular wall thickness and chamber size. Ejection fraction is 65%. Wall motion is normal Normal right ventricular size and function Moderately dilated left atrium. Normal right atrial size The aortic valve is trileaflet and mildly sclerotic with trace regurgitation Mild mitral and tricuspid regurgitation Estimated right ventricular systolic pressure is 50 mmHg Mildly dilated ascending aorta 3.78 cm Wall motion Left Ventricle The left ventricle is normal size. The left ventricular systolic function is normal. The left ventricular ejection fraction is within the normal range. There is normal left ventricular wall thickness. There is normal LV segmental wall motion. There is no ventricular septal defect visualized. LVEF is 65%. Right Ventricle The right ventricle is normal size. The right ventricular systolic function is normal. Atria Left atrium is moderately dilated. The right atrium size is normal. The interatrial septum is intact with no evidence for an atrial septal defect. Aortic Valve The aortic valve is mildly sclerotic. No hemodynamically significant valvular aortic stenosis. Trace aortic regurgitation. Mitral Valve The mitral valve is normal in structure. No evidence of mitral valve stenosis. Mild mitral regurgitation. Tricuspid Valve The tricuspid valve is normal in structure. There is no tricuspid valve stenosis. Mild tricuspid regurgitation. The RVSP is 50.5 mmHg. Pulmonic Valve The pulmonary valve is normal in structure. There is no pulmonic valvular stenosis. There is no pulmonic valvular regurgitation. Great Vessels The aortic root is normal in size. The ascending aorta is mildly dilated. Aortic arch is normal in caliber. IVC is normal in size and collapses >50% with inspiration. Pericardium There is no pericardial effusion. 2D Dimensions IVSD d PLAX 0.75 cm F: 0.6-1.0 Ao Root d 2.98 cm F: 2.7 - 3.3 LVPW d PLAX 0.75 cm F: 0.6 - 1.0 Ao Asc Diam d 3.78 cm F: 2.3 - 3.1 LVID d PLAX 5.84 cm F: 3.8 - 5.2 LVDs 3.75 cm F: 2.2 - 3.5 LV EF Teichholz 64.5 % FS 35.80 % LV EDV (Teich) 169.5 mL LV ESV (Teich) 60.1 mL Stroke Vol Index (Teich) 54.16 M-Mode TAPSE 3.59 cm (M/F) >1.7 Auto EF LV EDV A4C 124.0 mL LV EDV A2C 136.3 mL LV EDV BP 131.5 mL LV ESV A4C 43.0 mL LV ESV A2C 47.6 mL LV ESV BP 44.8 mL LVEF(%) A4C 65.4 % LVEF(%) A2C 65.1 % LVEF(%) BP 65.9 % LV SV A4C 81.1 ml LV SV A2C 88.8 ml LV SV BP 86.6 ml LV CO A4C 5.6 L/min LV CO A2C 6.2 L/min LV CO BP 5.9 L/min HR A4C 68.71 BPM HR A2C 70.04 BPM LV EDV Index (BP) LA Volume LA Length A4C 5.8 cm LA Length A2C 5.1 cm LA Area A4C s 18.13 cm2 LA Area A2C s 15.49 cm2 LA Vol A4C A-L 48.41 mL LA Vol A2C A-L 40.12 mL LA Vol Biplane A-L 47.0 mL LA Vol/BSA A4C A-L LA Vol/BSA A2C A-L LA Vol/BSA BP A-L 23.2 mL/m2 LA Vol A4C MOD 45.8 mL LA Vol A2C MOD 38.4 mL LA Vol BP MOD 44.6 mL RA Volume RA Area A4C 11.8 cm2 RA ESV A4C (A-L) 25.4mL RA Vol/BSA A4C A-L RA Length A4C 4.7 cm RA ESV A4C (MOD) 25.2mL LV Diastology MV E' medial 0.108 (>0.07 m/s) MV E Vmax 1.10 (0.4-1.3 m/s) MV E/E' MED 10.14 (<14) MV A Vmax 0.95 (0.4-1.3 m/s) MV E' lateral 0.105 (>0.1 m/s) E/A Ratio 1.2 MV E/E' LAT 10.40 (<14) MV E' Average 0.107 m/s MV E/E'(average) 10.27 Aortic Valve AoV Vmax 2.16 m/s LVOT Vmax 1.14 m/s AoV Peak Grad 18.6 mmHg LVOT Peak Grad 5.2 mmHg AoV Area (Vmax) 1.36 cm2 LVOT VTI 0.316 m AoV VTI 0.544 m LVOT Mean Grad 3.0 mmHg AoV Mean Felix. 1.43 m/s LVOT SV 81.34 mL AoV Mean Grad 9.4 mmHg LVOT Diam s 1.80 cm AoV Area (VTI) 1.50 cm2 AV Regurg Peak Gr. 18.58 mmHg Velocity Ratio 0.53 Mitral Valve MV DT 144 (160-240 msec) Tricuspid Valve RA Pressure 3.00 mmHg TR Vmax 3.45 m/s TR Peak Grad 47.4 mmHg RVSP (TR) 50.5 mmHg
[2025-04-18] MEDS: ACETAMINOPHEN 1,000 MG/100 ML BAG 400 MG IVPB (12:13)
[2025-04-18 12:51] LABS: Troponin I 9 ng/L (<or=51)
--- NOTE | 2025-04-18 15:25 | W.PC.ACHO ---
Registration Status: ADM IN Primary Language: Preferred Language: Gibraltarian ED Information & Data Chief Complaint GenMedical 04/18/25 09:21 Chief Complaint GenMedical 04/18/25 08:50 Triage Note Patient complaining of 04/18/25 08:26 swelling in both legs, SOB, low back pain for 1 week Medical / Surgical History (Last Updated 01/31/25 @ 11:50 by Carleen Elizabeth RN) Primary localized cutaneous amyloidosis Cellulitis of right lower limb Lymphocytopenia Normal colonoscopy Hypocalcemia Asthma Allergic rhinitis Abnormal mammogram of right breast Degenerative joint disease Hyperlipidemia Pericarditis Eczema Chest wall pain Insomnia Sciatica, left side (Last Reviewed 11/27/24 @ 16:02 by Evan Whitmore MD) 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) History of bone marrow biopsy S/P thyroidectomy H/O: hysterectomy Tonsillectomy Most Recent Vital Signs Temperature 36 C L 04/18/25 13:16 Temperature Source Temporal Artery Scan 04/18/25 13:16 Pulse 65 04/18/25 13:16 Pulse Rhythm Regular 04/18/25 13:56 Pulse 67 04/18/25 12:42 Respiratory Rate 18 04/18/25 13:16 Respiratory Effort Normal, Non-Labored 04/18/25 13:56 Respiratory Depth Normal 04/18/25 13:56 Respiratory Pattern Normal 04/18/25 13:56 Blood Pressure 191/83 H 04/18/25 13:37 Blood Pressure Mean 119 04/18/25 13:37 Pulse Oximetry 98 04/18/25 13:16 Oxygen Delivery Method Room Air 04/18/25 13:56 Oxygen Flow Rate 0 04/18/25 13:56 Pain Level 0 04/18/25 13:56 Allergies No Known Allergies Allergy (Verified 04/18/25 08:32) Precautions Isolation Standard precaution 04/18/25 08:33 Active Medications Generic Name Dose Route Start Last Admin Trade Name Freq PRN Reason Stop Dose Admin Lidocaine 1 patch 04/18/25 13:41 04/18/25 14:33 Lidocaine 5% Patch TP Not Given Q24H WILLIE IV IV Catheter Type [Right Peripheral IV Antecubital] IV Catheter Gauge [Right 18 Antecubital] Diet Orders Category Date Time Status Heart Healthy Eating [DIET] Nutrition 04/18/25 Lunch Active Diagnostics 04/18/25 04/18/25 04/18/25 Range/Units 12:15 09:37 08:35 WBC 6.26 (4.4-10.8) 10^3/uL RBC 4.07 (3.93-5.22) 10^6/uL Hgb 10.9 L (11.2-15.7) g/dL Hct 31.8 L (36.0-46.0) % MCV 78 L (80-95) fL MCH 26.8 L (27.0-33.0) pg MCHC 34.3 (32.0-36.0) % RDW 13.9 (11.7-14.6) % Plt Count 181 (130-400) 10^3/uL MPV 9.1 (8.0-11.0) fL Immature Gran % 0.3 % Neutrophils % 80.7 % Lymphocytes % 6.4 % Monocytes % 9.4 % Eosinophils % 2.9 % Basophils % 0.3 % Nucleated RBC % 0.0 (0.0-0.3) % Absolute Neutrophils 5.05 (1.2-6.7) 10^3/uL Absolute Lymphocytes 0.40 L (1.2-3.4) 10^3/uL Absolute Monocytes 0.59 (0.1-0.8) 10^3/uL Absolute Eosinophils 0.18 (0.0-0.7) 10^3/uL Absolute Basophils 0.02 (0.0-0.2) 10^3/uL Sodium 137 (136-145) mmol/L Potassium 4.5 (3.5-5.1) mmol/L Chloride 100 (98-107) mmol/L Carbon Dioxide 27.7 (21.0-32.0) mmol/L Anion Gap 9.3 (3-11) mmol/L BUN 63 H (7-18) mg/dL Creatinine 3.0 H (0.55-1.02) mg/dL Est GFR (CKD-EPI 2020) 16.94 (mL/min/1.73m2) Glucose 100 (74-106) mg/dL Calcium 9.0 (8.5-10.1) mg/dL Magnesium 2.2 (1.8-2.4) mg/dL Total Bilirubin 0.5 (0.2-1.0) mg/dL AST 20 (15-37) U/L ALT 20 (14-59) U/L Alkaline Phosphatase 159 H (46-116) U/L Troponin I 9 7 7 (<or=51) ng/L NT-Pro-B Natriuret Pep 7717 H (<300) pg/mL Total Protein 6.2 L (6.4-8.2) g/dL Albumin 3.2 L (3.4-5.0) g/dL TSH 12.31 H (0.36-3.74) uIU/mL Free T4 1.05 (0.76-1.46) ng/dL Intake and Output - 24 Hour Total 04/18/25 08:24 thru 04/18/25 13:56 Intake Total 100 Output Total 400 Balance -300 Weight 94.5 kg Intake: IV 100 Output: Urine 400 Other: Urine Color Dark Shakira Urine Appearance Clear Urine Odor None # Voids 1 Falls Risk Assessment History of Falls No History 04/18/25 13:56 Contributing Factors No Factors 04/18/25 13:56 Ambulatory Aids Independent 04/18/25 13:56 Tubes/Lines None 04/18/25 13:56 Gait Evaluation No gait disturbance 04/18/25 13:56 Cognition No cognitive impairment 04/18/25 13:56 Fall Total Score 0 04/18/25 13:56 Level of Risk Standard/Low Risk 04/18/25 13:56 Problems (Last Updated 01/31/25 @ 11:50 by Carleen Elizabeth RN) On deep vein thrombosis (DVT) prophylaxis (Acute) Acute exacerbation of CHF (congestive heart failure) (Acute) Acute kidney injury superimposed on CKD (Acute) Hypertension (Chronic) Leg wound, right (Acute) v v v v v v v v v Sending and/or Receiving Nurses: Please use comment section below to note any information pertinent to the patient hand-off not included above. Information / Comments: Pt is AOx4, independent. C/o SOB, lower abdominal pain with radiation to both sides, bilateral LE edema. 1g of Tylenol given in ED with good effect. 40 mg of furosemide given with about 500ml output. VSS, BP is elevated with systolic in 200 range. Pt is on telemetry in NSR Report received from: KALA Tapia
[2025-04-18] MEDS: amLODIPine 5 MG TAB PO (18:11)
[2025-04-18] MEDS: Acetaminophen 500 MG TAB 1000 MG PO (20:16)
[2025-04-18] MEDS: Levothyroxine 150 MCG TAB PO (20:16)
[2025-04-18] MEDS: Gabapentin 300 MG CAP PO (20:16)
[2025-04-18] MEDS: Mometasone 220 MCG 14 DOSE INHALER 2 PUFF IH (20:18)
[2025-04-18] MEDS: Pramipexole 0.25 MG TAB PO (20:30)
[2025-04-18] MEDS: Lidocaine 5% Patch 1 PATCH TP (20:46)
[2025-04-18 21:20] LABS: Glucose Negative (Negative)
[2025-04-18 21:36] LABS: C & S Indicated? Yes; RBC >50 HPF (0-2)
[2025-04-18] MEDS: Biotene Mouthwash 237 ML BTL MM (22:03)
[2025-04-18] MEDS: Albuterol/Ipratropium 3 ML UPD VIAL UPD (22:05)
[2025-04-18] MEDS: oxyCODONE 5 MG TAB PO (22:40)
[2025-04-18] MEDS: cefTRIAXone 1 GM/50 ML BAG IVPB (22:51)
[2025-04-19] VITALS (7 sets, daily range): BP systolic 157–193; BP diastolic 70–79; PULSE 64–81; RESP 16–22; TEMP 36.8–37.6; O2SAT 90–97
[2025-04-19] MEDS: Albuterol/Ipratropium 3 ML UPD VIAL UPD ×2 (03:55→15:15)
[2025-04-19 06:30] LABS: HGB 11.1 g/dL (11.2-15.7); RBC 4.03 10^6/uL (3.93-5.22); WBC 7.97 10^3/uL (4.4-10.8)
[2025-04-19 06:31] LABS: Abs Immature Grans 0.02 10^3/uL (0.0-0.06); HCT 32.1 % (36.0-46.0); Immature Grans % 0.3 %; MCH 27.5 pg (27.0-33.0); MCHC 34.6 % (32.0-36.0); MCV 80 fL (80-95); MPV 9.0 fL (8.0-11.0); Platelet Count 198 10^3/uL (130-400); RDW 13.8 % (11.7-14.6); RDW-SD 40.1 fL
[2025-04-19 06:48] LABS: Anion Gap 10.4 mmol/L (3-11); BUN 66 mg/dL (7-18); CO2 27.6 mmol/L (21.0-32.0); Calcium 8.8 mg/dL (8.5-10.1); Chloride 100 mmol/L (98-107); Estimated GFR 17.64 (mL/min/1.73m2); Glucose 111 mg/dL (74-106); Potassium 4.4 mmol/L (3.5-5.1); Sodium 138 mmol/L (136-145)
[2025-04-19] MEDS: Mometasone 220 MCG 14 DOSE INHALER 2 PUFF IH ×2 (07:49→20:13)
[2025-04-19] MEDS: Gabapentin 300 MG CAP PO ×2 (08:18→19:48)
[2025-04-19] MEDS: Aspirin E.C. 81 MG TABEC PO (08:18)
[2025-04-19] MEDS: Hydroxychloroquine 200 MG TAB PO (08:18)
[2025-04-19] MEDS: Simvastatin 20 MG TAB 40 MG PO (08:18)
[2025-04-19] MEDS: Magnesium Oxide 400 MG TAB PO (08:20)
[2025-04-19] MEDS: amLODIPine 2.5 MG TAB PO (08:20)
[2025-04-19] MEDS: Furosemide 40 MG/4 ML VIAL IVP ×2 (08:21→16:17)
[2025-04-19] MEDS: Enoxaparin 30 MG/0.3 ML SYR SC (08:21)
--- NOTE | 2025-04-19 11:27 | INITIAL_ITS ---
Date of service: 04/19/25 Time of Service: 11:27 Care Management Initial Assmt Initial Assessment Reason for Hospitalization: Acute exacerbation of CHF Functional Status/Living Situation Patient Presentation: Francie was lying in bed when CM met with her. She stated that she is doing ok; she had a heated blanket on her belly, which she reported is helping with her stomach pain. She also reported back pain, which the provider is aware of. She stated that although she is still experiencing pain, she is motivated to return home, as she has two cats and a two month old Pomeranian puppy that are alone. She stated that she lives alone in a large, old house. She had a roommate until he , earlier this year. She expressed concern about being able to afford some bills, such as her upcoming tax bill, as well as costly home repairs. CM sent referrals to [facility] and [facility]; she reported that she has a family service caseworker, Carole, at the [facility]. She stated that she has an appointment with her PCP next week that was already scheduled. CM will continue to follow. Town of Residence: [facility] Resides with: Alone Natural Supports: Siblings that live out of state Employment Status: Retired Instrumental Activities of Daily Living (ADLs): Independent Medications Medication Management: No Issues/Barriers identified Advance Directives Advance Directives: Do you have an Advance Directive: N , 10:31 AD On File at [facility]: N 11/13/18, 10:31 Date Asked 04/18/25 04/18/25, 08:26 AD Date Reviewed COLST On File at [facility] COLST Date Scanned Code Status Resuscitation Status Full Code Insurance Coverage/Financial Issues Insurance: [facility] MCR replacement [facility] financial assistance 100% Care Team Visit Care Team Role Provider Type Anita Stevenson NP NURSE PRACTITIONER Randy Mauricio Primary Care Provider NON-[facility] STAFF PHYSICIAN Yancy Burrell Emergency Provider NURSE PRACTITIONER Kolby Montejo MD Admit Provider [facility] STAFF PHYSICIAN Attending Provider Discharge Potential Discharge Needs: PCP F/U Appt Anticipated Barriers to Discharge: None Identified Patient/Family Education Needs: Review discharge instructions, discuss Ask Me Three Transportation: Private vehicle Plan: Anticipate Francie will return home once medically cleared. She may need RCT private vehicle for transport home. She will follow up with her PCP and discharge plan of care. CM will continue to follow. Social Determinants of Health Screening Social Determinants of health last assessed in clinic: 04/19/25 Will the Patient Participate in the Screening?: Yes Do you worry about having a steady place to live?: no Problems where you live: other In the past 12 months, have you had to go without electric, gas, oil or water in your home?: no 1. Within the past 12 months, we worried whether our food would run out before we got money to buy more.: Never true 2. Within the past 12 months, the food we bought just didn't last and we didn't have money to get more.: Never true Has lack of transportation kept you from medical appointments or from doing things needed for daily living?: yes Has anyone in your life made you feel unsafe or unsupported?: no How hard is it for you to pay for the very basics like food, housing, medical care, and heating? Would you say it is:: Not hard at all Do you want help finding or keeping work or a job?: I do not need or want help If for any reason you need help with day-to-day activities such as bathing, preparing meals, shopping, managing finances, etc., do you get the help you need?: I don?t need any help How often do you feel lonely or isolated from those around you?: Sometimes Do you speak a language other than Micronesian at home?: No Does the patient want assistance with any of the above?: No Health Related Social Needs Health related social needs: inadequate housing (Z59.1), transportation insecurity (Z59.82) and feeling lonely/isolated (Z60.8) Health related social needs details: old house [facility] All Active Problems (Updated 04/19/25 @ 13:03 by Anita Stevenson NP) Abdominal pain (Acute) On deep vein thrombosis (DVT) prophylaxis (Acute) Acute exacerbation of CHF (congestive heart failure) (Acute) Acute kidney injury superimposed on CKD (Acute) Hypertension (Chronic) Hematuria (Acute) GAVIN (acute kidney injury) (Acute) Mild peripheral edema (Acute) CHF (congestive heart failure) (Chronic) Cutaneous amyloidosis (Acute) Leg wound, right (Acute) Chronic wound (Acute) Left knee DJD (Chronic) Depo-medrol injection: 02/27/25; 11/28/2024; 08/29/24; 05/30/2024; 02/26/2024; 11/27/2023; 08/17/23 Headache (Acute) Urinary tract infection (Acute) Colovaginal fistula (Acute) Diverticulitis of sigmoid colon (Acute) Amyloidosis (Chronic) Herniated nucleus pulposus, lumbar (Chronic) Antiphospholipid syndrome (Chronic) Trigger thumb of right hand (Acute) Trigger thumb of left hand (Chronic) Nasal vestibulitis (Acute 11/02/17) Nasal congestion (Acute 06/19/14) Deviated nasal septum (Acute 06/19/14) Cephalgia (Acute 11/20/14) Constipation (Chronic) as above HTN (hypertension) (Chronic) GERD (gastroesophageal reflux disease) (Chronic) stable Lupus (Chronic) Medical History (Updated 04/19/25 @ 13:03 by Anita Stevenson NP) Primary localized cutaneous amyloidosis Cellulitis of right lower limb Lymphocytopenia Normal colonoscopy [place] 11/13/[address] Natalya Styles at [facility], severe diverticular dz, repeat 10 years. 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
[2025-04-19] MEDS: Normal Saline Flush 10 ML SYR (11:55)
[2025-04-19] MEDS: Lidocaine Patch Removal 1 EACH TP (11:55)
[2025-04-19] MEDS: Acetaminophen 500 MG TAB 1000 MG PO ×2 (12:15→19:48)
--- NOTE | 2025-04-19 13:01 | W.PM.PROGNOT ---
Date of Service Date of service: 04/19/25 Time of Service: 13:02 Assessment and Plan Assessment and plan (1) Urinary tract infection: Status: Acute Assessment and plan: Continue ceftriaxone day 2 of 5 while cultures pending Consider Pyridium if lower abdominal discomfort continues (2) Abdominal pain: Status: Acute Assessment and plan: CAT scan of the abdomen and pelvis completed on 04/18 reviewed and no etiology to explain symptoms Suspect due to urinary tract infection plus or minus constipation Normal white count, no fever, benign abdominal exam Continue antibiotics while cultures pending Scheduled MiraLAX and monitor bowels (3) Acute exacerbation of CHF (congestive heart failure): Status: Acute Assessment and plan: With preserved ejection fraction Echo shows EF 65% no wall motion abnormality right ventricular systolic pressure 50 mmHg IV lasix BID Discontinue telemetry Labs in AM Intake and output with daily weights (4) Acute kidney injury superimposed on CKD: Status: Acute Assessment and plan: In the setting of decompensated heart failure with preserved ejection fraction Improved overnight with diuresis Labs in AM (5) Hypertension: Status: Chronic Assessment and plan: Hold thiazide and ARBs while on IV furosemide Monitor and adjust meds as needed (6) Leg wound, right: Status: Acute Assessment and plan: Chronic continue care as per standing orders (7) Hyperlipidemia: Assessment and plan: On home statin dose (8) On deep vein thrombosis (DVT) prophylaxis: Status: Acute Assessment and plan: ON LMWH Discussed with Dr. Montejo Subjective Subjective Patient reports: still having pain, no bowel movement (last BM yesterday, states normal passing flatus) and afebrile; denies nausea, vomiting or shortness of breath Exam Const General: cooperative, healthy appearing, comfortable and no acute distress Orientation: alert, awake and oriented x3 HENMT Head: normal to inspection, normocephalic and atraumatic Mouth: oral mucosae normal Resp Effort & Inspection: normal respiratory effort Auscultation: clear to auscultation bilaterally Cardio Rate: regular rate Rhythm: regular rhythm GI Inspection: distended and obesity Palpation: soft and tender in the LLQ and in the RLQ Auscultation: normal bowel sounds Skin General skin exam: no rashes or lesions noted Neuro General: patient alert, patient awake and patient oriented x3 Extrem General: normal to inspection and full ROM Objective Last Vital Signs Temp 37.1 C 04/19/25 08:13 Pulse 71 04/19/25 08:13 Resp 16 04/19/25 08:13 BP 163/71 H 04/19/25 08:13 Pulse Ox 97 04/19/25 08:13 Laboratory Results - last 24 hr 04/18/25 04/19/25 21:00 05:55 WBC 7.97 RBC 4.03 Hgb 11.1 L Hct 32.1 L MCV 80 MCH 27.5 MCHC 34.6 RDW 13.8 Plt Count 198 MPV 9.0 Immature Gran % 0.3 Neutrophils % 84.8 Lymphocytes % 4.8 Monocytes % 7.9 Eosinophils % 1.8 Basophils % 0.4 Nucleated RBC % 0.0 Absolute Neutrophils 6.77 H Absolute Lymphocytes 0.38 L Absolute Monocytes 0.63 Absolute Eosinophils 0.14 Absolute Basophils 0.03 Sodium 138 Potassium 4.4 Chloride 100 Carbon Dioxide 27.6 Anion Gap 10.4 BUN 66 H Creatinine 2.9 H Est GFR (CKD-EPI 2020) 17.64 Glucose 111 H Calcium 8.8 Urine Color Dark Yellow Urine Clarity Sl Cloudy Urine pH 6.0 Ur Specific [place] 1.015 Urine Protein >=300 H Urine Ketones Negative Urine Blood Large H Urine Nitrite Negative Urine Bilirubin Negative Urine Urobilinogen 0.2 Ur Leukocyte Esterase Negative Urine RBC >50 H Urine WBC 10-20 H Ur Epithelial Cells Few Urine Crystals Few Amorphous Urine Bacteria Many Urine Casts Negative Urine Mucus Negative Ur Culture Indicated? Yes Urine Glucose Negative PAWSS Have you Been Recently Intoxicated or Drunk Within the Last 30 days?: No Have you Ever Experienced Previous Episodes of Alcohol Withdrawal?: No Have you ever Experienced Withdrawal Seizures?: No Have you ever Experienced Delirium Tremens(DT)s?: No Have you ever undergone Alcohol Rehabilitation Treatment (i.e, inpt ot outpatient treatment programs)?: No Have you ever Experienced Blackouts?: No Have you ever Combined Alcohol with other Downers within the last 90 days?: No Have you ever Combined Alcohol with any other Substance of Abuse during the last 90 days?: No Positive Blood Alcohol level on Presentation? [PCS.BAL]: No Evidence of Increased Autonomic Activity (i.e. HR>120, tremor, sweating, agitation, nausea)?: No Result: 0 Time Spent with Patient Time Spent with Patient: 35-49 minutes Time was spent: preparing to see the patient(eg.review tests), obtaining and/or reviewing separately otained hiistory, ordering medications,tests, procedures, indepentently interpreting results and counseling the patient
[2025-04-19] MEDS: Polyethylene Glycol 3350 17 GM PACKET PO (13:59)
[2025-04-19] MEDS: Normal Saline Flush 10 ML SYR IVP (16:18)
[2025-04-19] MEDS: Levothyroxine 150 MCG TAB PO (19:48)
[2025-04-19] MEDS: Pramipexole 0.25 MG TAB PO (19:48)
[2025-04-19] MEDS: Lidocaine 5% Patch 1 PATCH TP (19:49)
[2025-04-19] MEDS: oxyCODONE 5 MG TAB PO (21:05)
[2025-04-19] MEDS: cefTRIAXone 1 GM/50 ML BAG IVPB (21:06)
[2025-04-19] MEDS: Phenazopyridine 200 MG TAB PO (22:26)
[2025-04-20 03:51] VITALS: BP 168/69; PULSE 72; RESP 20; TEMP 37; O2SAT 90
[2025-04-20] MEDS: Acetaminophen 500 MG TAB 1000 MG PO ×2 (04:01→14:29)
[2025-04-20 05:50] LABS: Cannabinoids THC Negative (Negative); METHADONE URINE SCREEN Negative (Negative)
[2025-04-20 07:07] VITALS: BP 159/67; PULSE 67; RESP 18; TEMP 36.5; O2SAT 95
[2025-04-20] MEDS: Mometasone 220 MCG 14 DOSE INHALER 2 PUFF IH ×2 (07:47→20:12)
[2025-04-20] MEDS: Albuterol HFA 8 GM 60 PUFF INH IH ×2 (08:03→20:12)
[2025-04-20] MEDS: Enoxaparin 30 MG/0.3 ML SYR SC (09:49)
[2025-04-20] MEDS: Furosemide 40 MG/4 ML VIAL IVP (09:49)
[2025-04-20] MEDS: Magnesium Oxide 400 MG TAB PO (09:50)
[2025-04-20] MEDS: Aspirin E.C. 81 MG TABEC PO (09:50)
[2025-04-20] MEDS: Hydroxychloroquine 200 MG TAB PO (09:50)
[2025-04-20] MEDS: Simvastatin 20 MG TAB 40 MG PO (09:50)
[2025-04-20] MEDS: Polyethylene Glycol 3350 17 GM PACKET PO (09:50)
[2025-04-20] MEDS: Loratidine 10 MG TAB PO (09:50)
[2025-04-20] MEDS: Lidocaine Patch Removal 1 EACH TP (09:51)
[2025-04-20] MEDS: Gabapentin 300 MG CAP PO ×2 (09:51→20:10)
[2025-04-20] MEDS: amLODIPine 2.5 MG TAB PO (09:51)
[2025-04-20 10:58] VITALS: BP 162/74; PULSE 70; RESP 16; TEMP 36.6; O2SAT 94
[2025-04-20 12:22] LABS: Anion Gap 8.7 mmol/L (3-11); BUN 70 mg/dL (7-18); CO2 29.3 mmol/L (21.0-32.0); Calcium 8.4 mg/dL (8.5-10.1); Chloride 99 mmol/L (98-107); Estimated GFR 16.28 (mL/min/1.73m2); Glucose 94 mg/dL (74-106); Potassium 4.4 mmol/L (3.5-5.1); Sodium 137 mmol/L (136-145)
[2025-04-20 14:55] VITALS: BP 151/88; PULSE 74; RESP 16; TEMP 36.6; O2SAT 96
[2025-04-20 15:06] LABS: Lab Add On Test DONE
--- NOTE | 2025-04-20 15:08 | PGE_ITS ---
Date of Service Date of service: 04/20/25 Time of Service: 15:08 Assessment and Plan Assessment and plan (1) Acute kidney injury superimposed on CKD: Status: Acute Assessment and plan: was thought in the setting of decompensated heart failure with preserved ejection fraction, being diuresed with no significant improvement in kidney function. needs strict I&O with worsening hematuria and proteinuria, decreasing kidney function, left flank pain. stop all agents that can cause glomerular nephritis: acetaminophen, amlodipine, lasix and ceftriaxone per pharmacy review renal ultrasound Monday differentials: lupus nephritis urology and nephrology consultation added labs: anti-double stranded DNA titier and low complement C3&4, CPK (98) left flank pain, no findings on non contrast CT, urine likely insignificant mixed growth, was treated with ceftriaxone for 3 days, Labs in AM (2) Urinary tract infection: Status: Acute Assessment and plan: stop ceftriaxone day 3 of 3, cultures pending but looking like contaminent, insignificant mixed growth no dysuria frequency or urgency. left flank pain but no evidence of pyelonephrtitis on CT scan (3) Abdominal pain: Status: Acute Assessment and plan: CAT scan of the abdomen and pelvis completed on 04/18 reviewed and no etiology to explain symptoms Normal white count, no fever, benign abdominal exam (4) Acute exacerbation of CHF (congestive heart failure): Status: Acute Assessment and plan: With preserved ejection fraction Echo shows EF 65% no wall motion abnormality right ventricular systolic pressure 50 mmHg IV lasix BID discontinued in setting of worsening kidney function, monitor closely off lasix Discontinue telemetry Labs in AM Intake and output with daily weights (5) Hypertension: Status: Chronic Assessment and plan: continue to Hold thiazide and ARBs, now amlodipine on hold Monitor and adjust meds as needed (6) Leg wound, right: Status: Acute Assessment and plan: Chronic continue care as per standing orders (7) Hyperlipidemia: Assessment and plan: On home statin dose (8) On deep vein thrombosis (DVT) prophylaxis: Status: Acute Assessment and plan: ON LMWH, renal dosing Discussed with Dr. Montejo Subjective Subjective Patient reports: still having pain (left flank pain), tolerating liquids well, tolerating a regular diet, voiding w/o difficulty and afebrile Exam Const General: cooperative, healthy appearing, comfortable and no acute distress Orientation: alert, awake and oriented x3 HENMT Head: normal to inspection, normocephalic and atraumatic Mouth: oral mucosae normal Resp Effort & Inspection: normal respiratory effort Auscultation: clear to auscultation bilaterally Cardio Rate: regular rate Rhythm: regular rhythm GI Inspection: obesity Palpation: soft Auscultation: normal bowel sounds Skin General skin exam: no rashes or lesions noted Neuro General: patient alert, patient awake and patient oriented x3 Extrem General: normal to inspection and full ROM Objective Last Vital Signs Temp 36.6 C 04/20/25 14:55 Pulse 74 04/20/25 14:55 Resp 16 04/20/25 14:55 BP 151/88 H 04/20/25 14:55 Pulse Ox 96 04/20/25 14:55 Laboratory Results - last 24 hr 04/20/25 04/20/25 03:51 11:20 Sodium 137 Potassium 4.4 Chloride 99 Carbon Dioxide 29.3 Anion Gap 8.7 BUN 70 H Creatinine 3.1 H Est GFR (CKD-EPI 2020) 16.28 Glucose 94 Calcium 8.4 L Urine Opiates Screen Positive A Urine Methadone Screen Negative Ur Barbiturates Screen Negative Ur Tricyclics Screen Negative Ur Amphetamines Screen Negative U Benzodiazepines Scrn Negative Urine Cocaine Screen Negative Ur THC Screen Negative Add-On Test Request DONE PAWSS Have you Been Recently Intoxicated or Drunk Within the Last 30 days?: No Have you Ever Experienced Previous Episodes of Alcohol Withdrawal?: No Have you ever Experienced Withdrawal Seizures?: No Have you ever Experienced Delirium Tremens(DT)s?: No Have you ever undergone Alcohol Rehabilitation Treatment (i.e, inpt ot outpatient treatment programs)?: No Have you ever Experienced Blackouts?: No Have you ever Combined Alcohol with other Downers within the last 90 days?: No Have you ever Combined Alcohol with any other Substance of Abuse during the last 90 days?: No Positive Blood Alcohol level on Presentation? [PCS.BAL]: No Evidence of Increased Autonomic Activity (i.e. HR>120, tremor, sweating, a gitation, nausea)?: No Result: 0 Time Spent with Patient Time Spent with Patient: 35-49 minutes Time was spent: preparing to see the patient(eg.review tests), obtaining and/or reviewing separately [facility], ordering medications,tests, procedures, indepentently interpreting results and counseling the patient
[2025-04-20 15:22] LABS: Creatine Kinase 98 U/L (26-192)
[2025-04-20 19:52] VITALS: BP 181/76; PULSE 70; RESP 20; TEMP 36.3; O2SAT 94
[2025-04-20] MEDS: Pramipexole 0.25 MG TAB PO (20:10)
[2025-04-20] MEDS: Levothyroxine 150 MCG TAB PO (20:10)
[2025-04-20] MEDS: Lidocaine 5% Patch 1 PATCH TP (20:11)
[2025-04-20 22:28] LABS: Prot/Crea Ur Ratio 1.79
[2025-04-20 22:30] LABS: PROTEIN 527.5 mg/dL
[2025-04-20 23:19] VITALS: BP 181/78; PULSE 69; RESP 18; TEMP 37; O2SAT 96
[2025-04-21] VITALS (8 sets, daily range): BP systolic 156–192; BP diastolic 68–88; PULSE 68–87; RESP 15–20; TEMP 36.4–37.5; O2SAT 93–98
--- NOTE | 2025-04-21 | DI.US_ITS ---
Exam(s) US RENAL EXAM: US RENAL CLINICAL HISTORY: left flank pain, acute renal injury. TECHNIQUE: Ngo scale imaging and color doppler were used. COMPARISON: CT CT CHEST/ABD/PEL WO from 04/18/2025 FINDINGS: Right kidney: 10.4cm Echogenicity: Normal Hydronephrosis: No Cyst or mass: No Nephrolithiasis: No Left kidney: 11.6cm Echogenicity: Normal Hydronephrosis: There is now mild to moderate left hydronephrosis. This was not present on the recent prior CT. Cyst or mass: No Nephrolithiasis: No Bladder:Normal. Prevoid vol:121 cc Postvoid vol:0 cc IMPRESSION: [id number] left hydronephrosis, new since CT 3 days ago. DATA REPOSITORY:
[2025-04-21] MEDS: Cyclobenzaprine 10 MG TAB PO (06:09)
[2025-04-21 06:53] LABS: Anion Gap 9.0 mmol/L (3-11); BUN 69 mg/dL (7-18); CO2 27.0 mmol/L (21.0-32.0); Calcium 8.3 mg/dL (8.5-10.1); Chloride 100 mmol/L (98-107); Estimated GFR 18.40 (mL/min/1.73m2); Glucose 98 mg/dL (74-106); Potassium 4.9 mmol/L (3.5-5.1); Sodium 136 mmol/L (136-145)
[2025-04-21] MEDS: Gabapentin 300 MG CAP PO ×2 (08:32→20:12)
[2025-04-21] MEDS: Aspirin E.C. 81 MG TABEC PO (08:32)
[2025-04-21] MEDS: Hydroxychloroquine 200 MG TAB PO (08:32)
[2025-04-21] MEDS: Polyethylene Glycol 3350 17 GM PACKET PO (08:33)
[2025-04-21] MEDS: Enoxaparin 30 MG/0.3 ML SYR SC (08:33)
[2025-04-21] MEDS: Simvastatin 20 MG TAB 40 MG PO (08:33)
[2025-04-21] MEDS: Lidocaine Patch Removal 1 EACH TP (08:40)
[2025-04-21] MEDS: Mometasone 220 MCG 14 DOSE INHALER 2 PUFF IH ×2 (08:43→19:22)
--- NOTE | 2025-04-21 09:23 | PGE_ITS ---
Date of Service Date of service: 04/21/25 Time of Service: 09:23 Assessment and Plan Assessment and plan (1) Acute kidney injury superimposed on CKD: Status: Acute Assessment and plan: was thought in the setting of decompensated heart failure with preserved ejection fraction, being diuresed with no significant improvement in kidney function. Ongoing strict I&O with worsening hematuria and proteinuria, decreasing kidney function, left flank pain. stop all agents that can cause glomerular nephritis: acetaminophen, amlodipine, lasix and ceftriaxone per pharmacy review Cr 2.8 from 3.1 Renal ultrasound completed - report :now mild to moderate left hydronephrosis- consulting w urology differentials: lupus nephritis with Hx of lupus and findings of adenopathy on abd and pelvic CT pointing to flare of the condition [facility] nephrology consultation with Dr Rolle-- recommending IR renal biopsy - IR scheduled for 04/22/25 at 10:30- to be at 3z IR for 09:30 - BP goal 140/90 consider consultation rheumatolgy ( already followed at [facility] by Dr. Lowe) added labs: anti-double stranded DNA titier and low complement C3&4, CPK (98) left flank pain, no findings on non contrast CT, urine likely insignificant mixed growth, was treated with ceftriaxone for 3 days, Labs in AM (2) Urinary tract infection: Status: Acute Assessment and plan: completed stop ceftriaxone day 3 of 3, cultures GNR and GPC < 10 K- not furhter antibiotic needed No dysuria frequency or urgency. No true CVA tenderness; left flank/ abd pain but no evidence of pyelonephrtitis on CT scan (3) Abdominal pain: Status: Acute Assessment and plan: CAT scan of the abdomen and pelvis completed on 04/18 reviewed and no etiology to explain symptoms and as per point 1 Normal white count, no fever, benign abdominal exam PRN oxycodone (4) Acute exacerbation of CHF (congestive heart failure): Status: Acute Assessment and plan: With preserved ejection fraction Echo shows EF 65% no wall motion abnormality right ventricular systolic pressure 50 mmHg IV lasix BID discontinued in setting of worsening kidney function, monitor closely off lasix Cr now 2.8 was 3.0 on admission Discontinue telemetry Labs in AM Continue intake and output with daily weights (5) Hypertension: Status: Chronic Assessment and plan: Ongoing hold of thiazide, ARBs, and amlodipine on hold Monitor and adjust meds as needed PRN hydralazine goal : BP <140/90 Correct HTN urgency/ emergency (6) Leg wound, right: Status: Acute Assessment and plan: Continue care as per standing orders (7) Hyperlipidemia: Assessment and plan: Ongoing home statin dose (8) On deep vein thrombosis (DVT) prophylaxis: Status: Acute Assessment and plan: ongoing LMWH, renal dosing hold for Bx in AM Discussed with Dr. Montejo Subjective Subjective Patient reports: feels better, tolerating liquids well, tolerating a regular diet, voiding w/o difficulty and bowel movement; denies diarrhea, blood in stool, nausea, vomiting, shortness of breath or fever Exam Narrative Exam Narrative: 65-year-old female w/o acute distress neurologically intact, unlabored breathing, decreased bibasilar breath sounds , cardiac rate rhythm regular 3+ edema to bilateral lower extremities , no CVA tenderness, lower back tender paper machine to palpation ,abdomen is non- distended , soft , tenderness to bilat. lower quadrants and left lat. lower ABD, right ankle with wound with dressing no surrounding cellulitis - Objective Last Vital Signs Temp 36.6 C 04/21/25 08:02 Pulse 76 04/21/25 08:02 Resp 16 04/21/25 08:02 BP 188/68 H 04/21/25 08:02 Pulse Ox 97 04/21/25 08:02 Laboratory Results - last 24 hr 04/20/25 04/20/25 04/20/25 03:51 11:20 18:58 Sodium 137 Potassium 4.4 Chloride 99 Carbon Dioxide 29.3 Anion Gap 8.7 BUN 70 H Creatinine 3.1 H Est GFR (CKD-EPI 2020) 16.28 Glucose 94 Calcium 8.4 L Creatine Kinase 98 Ur Random Creatinine 293.64 U Random Total Protein 527.5 U [place] Prot/Creat Ratio 1.79 U Total Protein mg/dL Urine Albumin (PEP) Urine Albumin (%) Urine Globulin EP Urine Globulin U PEP M-Xavier U PEP M-Xavier % Fld Polynuclear WBCs % Cancelled Fluid Mononuclear Cell Cancelled Fluid Other Cells Cancelled Urine Immunofixation Urine SOBEIDA Comments Path Cons Comment Cancelled Add-On Test Request DONE 04/20/25 04/21/25 20:57 06:26 Sodium 136 Potassium 4.9 Chloride 100 Carbon Dioxide 27.0 Anion Gap 9.0 BUN 69 H Creatinine 2.8 H Est GFR (CKD-EPI 2020) 18.40 Glucose 98 Calcium 8.3 L Creatine Kinase Ur Random Creatinine U Random Total Protein U [place] Prot/Creat Ratio U Total Protein mg/dL Cancelled Urine Albumin (PEP) Cancelled Urine Albumin (%) Cancelled Urine Globulin EP Cancelled Urine Globulin Cancelled U PEP M-Xavier Cancelled U PEP M-Xavier % Cancelled Fld Polynuclear WBCs % Fluid Mononuclear Cell Fluid Other Cells Urine Immunofixation Cancelled Urine SOBEIDA Comments Cancelled Path Cons Comment Add-On Test Request PAWSS Have you Been Recently Intoxicated or Drunk Within the Last 30 days?: No Have you Ever Experienced Previous Episodes of Alcohol Withdrawal?: No Have you ever Experienced Withdrawal Seizures?: No Have you ever Experienced Delirium Tremens(DT)s?: No Have you ever undergone Alcohol Rehabilitation Treatment (i.e, inpt ot outpatient treatment programs)?: No Have you ever Experienced Blackouts?: No Have you ever Combined Alcohol with other Downers within the last 90 days?: No Have you ever Combined Alcohol with any other Substance of Abuse during the last 90 days?: No Positive Blood Alcohol level on Presentation? [PCS.BAL]: No Evidence of Increased Autonomic Activity (i.e. HR>120, tremor, sweating, agitati on, nausea)?: No Result: 0 Time Spent with Patient Time Spent with Patient: >50 minutes Time was spent: preparing to see the patient(eg.review tests), obtaining and/or reviewing separately otained hiistory, ordering medications,tests, procedures, referring, communicating with other health career development manager, indepentently interpreting results, counseling the patient, care coordination and other
--- NOTE | 2025-04-21 10:11 | PDOC.CMPRO ---
Date of service: 04/21/25 Time of Service: 16:42 Care Management Progress Note Progress Note Text Progress Note Text: Francie was sitting up in bed and awake when CM met with her. Per report, Francie will go to [facility] for a down and back tomorrow to undergo renal biopsy; She will be NPO after midnight. Francie states that she is having a friend check on her pets/house once in awhile. She reports that she has right sided pain, RN aware. CM will continue to follow. Discharge Potential Discharge Needs: PCP F/U Appt Anticipated Barriers to Discharge: None Identified Patient/Family Education Needs: Review discharge instructions, discuss Ask Me Three Transportation: Private vehicle Plan: Anticipate Francie will return home once medically cleared. She may need [facility] private vehicle for transport home. She will follow up with her PCP and discharge plan of care. CM will continue to follow. Social Determinants of Health Screening Social Determinants of health last assessed in clinic: 04/21/25 Will the Patient Participate in the Screening?: Yes Do you worry about having a steady place to live?: no Problems where you live: other In the past 12 months, have you had to go without electric, gas, oil or water in your home?: no 1. Within the past 12 months, we worried whether our food would run out before we got money to buy more.: Never true 2. Within the past 12 months, the food we bought just didn't last and we didn't have money to get more.: Never true Has lack of transportation kept you from medical appointments or from doing things needed for daily living?: yes Has anyone in your life made you feel unsafe or unsupported?: no How hard is it for you to pay for the very basics like food, housing, medical care, and heating? Would you say it is:: Not hard at all Do you want help finding or keeping work or a job?: I do not need or want help If for any reason you need help with day-to-day activities such as bathing, preparing meals, shopping, managing finances, etc., do you get the help you need?: I don?t need any help How often do you feel lonely or isolated from those around you?: Sometimes Do you speak a language other than [place] at home?: No Does the patient want assistance with any of the above?: No Health Related Social Needs Health related social needs: inadequate housing (Z59.1), transportation insecurity (Z59.82) and feeling lonely/isolated (Z60.8) Health related social needs details: old house
[2025-04-21] MEDS: oxyCODONE 5 MG TAB 2.5 MG PO (11:16)
[2025-04-21 12:25] LABS: ESR 28 mm/hr (0-30)
[2025-04-21 12:38] LABS: C-Reactive Protein 19.05 mg/dL (<or=0.5)
--- NOTE | 2025-04-21 13:08 | NUR.NOTE ---
Nursing Note: At 0830 spoke with Meg in Pharmacy to review last creatinine level and mag oxide dose due. Previous level has decreased from 3.1 to 2.8 but there has not been a recent level drawn and Meg suggested a dose be drawn before the mag oxide is given. Updated Raegan, the primary nurse, with this information and returned the mag oxide to the medication dispenser until further clarification. Raegan plans to follow up with the provider.
--- NOTE | 2025-04-21 13:15 | NUR.NOTE ---
Nursing Note: Reviewed documentation by Beronica Wahl, PN student.
--- NOTE | 2025-04-21 16:27 | W.UROLOGYCON ---
Date of service: 04/21/25 Time of Service: 16:27 Assessment and Plan Assessment and plan (1) Hydronephrosis, left: Status: Acute Assessment and plan: I am not certain about the etiology of her hydronephrosis. She does not seem to have a ureteral stone based on her initial CT scan. I did not appreciate any type of extrinsic pelvic mass that would obstruct your kidney over a short period of time. Perhaps a clot in the ureter or left renal papilla could cause an acute obstruction. In any case, we generally consider placing a ureteral stent to relieve any obstruction. I am reluctant to do so before she has her renal biopsy tomorrow, but I do ask that we keep her n.p.o. when she returns to [facility] from [facility] tomorrow. I would then reassess her and potentially place a ureteral stent. History of Present Illness History of Present Illness Chief Complaint: Left hydronephrosis Narrative: This is a 65-year-old woman who has been hospitalized for the past 3 days with an elevated serum creatinine. At the time of her admission, she had a CT of the abdomen and pelvis which showed no hydronephrosis and no evidence of stone disease. She is now having worsening left flank pain and her renal ultrasound today shows new onset of left hydronephrosis. She has elevated inflammatory markers and is due to have a percutaneous renal biopsy at [facility] tomorrow. Consideration is being given to a diagnosis of lupus nephritis. She is not having any clots in her urine however she does have some hematuria. She has no history of kidney stones. Her initial urine samples were reassuring for the absence of infection. [facility] All Active Problems (Updated 04/21/25 @ 16:35 by Stef Hassan MD) Hydronephrosis, left (Acute) Abdominal pain (Acute) On deep vein thrombosis (DVT) prophylaxis (Acute) Acute exacerbation of CHF (congestive heart failure) (Acute) Acute kidney injury superimposed on CKD (Acute) Hypertension (Chronic) Hematuria (Acute) GAVIN (acute kidney injury) (Acute) Mild peripheral edema (Acute) CHF (congestive heart failure) (Chronic) Cutaneous amyloidosis (Acute) Leg wound, right (Acute) Chronic wound (Acute) Left knee DJD (Chronic) Depo-medrol injection: 02/27/25; 11/28/2024; 08/29/24; 05/30/2024; 02/26/2024; 11/27/2023; 08/17/23 Headache (Acute) Urinary tract infection (Acute) Colovaginal fistula (Acute) Diverticulitis of sigmoid colon (Acute) Amyloidosis (Chronic) Herniated nucleus pulposus, lumbar (Chronic) Antiphospholipid syndrome (Chronic) Trigger thumb of right hand (Acute) Trigger thumb of left hand (Chronic) Nasal vestibulitis (Acute 11/02/17) Nasal congestion (Acute 06/19/14) Deviated nasal septum (Acute 06/19/14) Cephalgia (Acute 11/20/14) Constipation (Chronic) as above HTN (hypertension) (Chronic) GERD (gastroesophageal reflux disease) (Chronic) stable Lupus (Chronic) Medical History (Updated 04/21/25 @ 16:35 by Stef Hassan MD) Primary localized cutaneous amyloidosis Cellulitis of right lower limb Lymphocytopenia Normal colonoscopy [place] 11/13/[address] Natalya Styles at [facility], severe diverticular dz, repeat 10 years. mg Hypocalcemia Asthma Allergic rhinitis Abnormal mammogram of right breast Degenerative joint disease Hyperlipidemia Pericarditis Eczema Chest wall pain Insomnia Sciatica, left side Surgical History 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) History of bone marrow biopsy S/P thyroidectomy H/O: hysterectomy Tonsillectomy Social History Smoking/Tobacco Use Status: Former Tobacco Use Quit Date: 08/14/99 Smoking risk assessment performed?: Yes Alcohol Intake: current Alcohol Intake frequency: a few times a week Alcohol type: beer and wine Drug use: Never Substance use type: does not use Housing: house Current gender identity: female Do you feel safe at home: Yes Do you feel safe in your relationship?: Yes Exam Narrative Exam Narrative: She appears uncomfortable She does not appear septic or toxic Her vital signs are documented elsewhere in the chart Her abdomen has no peritoneal signs She is awake and alert I reviewed her renal ultrasound from today. There is new onset of left hydronephrosis that was not present on her admission CT scan Results Last Vital Signs Temp 37.5 C 04/21/25 11:30 Pulse 72 04/21/25 11:30 Resp 20 04/21/25 11:30 BP 188/75 H 04/21/25 11:30 Pulse Ox 94 04/21/25 11:30 Labs 04/19/25 05:55 04/21/25 06:26 Labs: Laboratory Results - last 24 hr 04/20/25 04/20/25 04/20/25 03:51 18:58 20:57 ESR Sodium Potassium Chloride Carbon Dioxide Anion Gap BUN Creatinine Est GFR (CKD-EPI 2020) Glucose Calcium C-Reactive Protein Ur Random Creatinine 293.64 U Random Total Protein 527.5 U [place] Prot/Creat Ratio 1.79 U Total Protein mg/dL Cancelled Urine Albumin (PEP) Cancelled Urine Albumin (%) Cancelled Urine Globulin EP Cancelled Urine Globulin Cancelled U PEP M-Xavier Cancelled U PEP M-Xavier % Cancelled Fld Polynuclear WBCs % Cancelled Fluid Mononuclear Cell Cancelled Fluid Other Cells Cancelled Urine Immunofixation Cancelled Urine SOBEIDA Comments Cancelled Path Cons Comment Cancelled 04/21/25 04/21/25 06:26 06:55 ESR 28 Sodium 136 Potassium 4.9 Chloride 100 Carbon Dioxide 27.0 Anion Gap 9.0 BUN 69 H Creatinine 2.8 H Est GFR (CKD-EPI 2020) 18.40 Glucose 98 Calcium 8.3 L C-Reactive Protein 19.05 H Ur Random Creatinine U Random Total Protein U [place] Prot/Creat Ratio U Total Protein mg/dL Urine Albumin (PEP) Urine Albumin (%) Urine Globulin EP Urine Globulin U PEP M-Xavier U PEP M-Xavier % Fld Polynuclear WBCs % Fluid Mononuclear Cell Fluid Other Cells Urine Immunofixation Urine SOBEIDA Comments Path Cons Comment
[2025-04-21] MEDS: Labetalol 100 MG TAB 50 MG PO (16:34)
[2025-04-21 16:54] LABS: Total Protein 5.5 g/dL (6.3-8.2)
[2025-04-21] MEDS: Lidocaine 5% Patch 1 PATCH TP (20:12)
[2025-04-21] MEDS: Labetalol 100 MG TAB PO (20:12)
[2025-04-21] MEDS: Levothyroxine 150 MCG TAB PO (20:12)
[2025-04-21] MEDS: Pramipexole 0.25 MG TAB PO (20:12)
[2025-04-21] MEDS: Normal Saline Flush 10 ML SYR IVP (20:28)
[2025-04-21 22:59] LABS: CRP, High Sensitivity >15.00 mg/L (See Note)
[2025-04-22] VITALS (9 sets, daily range): BP systolic 135–161; BP diastolic 53–84; PULSE 67–74; RESP 15–18; TEMP 36.5–37.1; O2SAT 91–97; BMI 34.6
[2025-04-22] MEDS: oxyCODONE 5 MG TAB 2.5 MG PO (03:35)
[2025-04-22] MEDS: Albuterol HFA 8 GM 60 PUFF INH IH (04:06)
[2025-04-22 06:50] LABS: Abs Immature Grans 0.06 10^3/uL (0.0-0.06); HCT 29.6 % (36.0-46.0); HGB 9.9 g/dL (11.2-15.7); Immature Grans % 0.6 %; MCH 26.5 pg (27.0-33.0); MCHC 33.4 % (32.0-36.0); MCV 79 fL (80-95); MPV 9.5 fL (8.0-11.0); Platelet Count 198 10^3/uL (130-400); RBC 3.73 10^6/uL (3.93-5.22); RDW 14.1 % (11.7-14.6); RDW-SD 40.8 fL; WBC 10.53 10^3/uL (4.4-10.8)
--- NOTE | 2025-04-22 06:58 | NUR.NOTE ---
Nursing Note: At 06:58 given report to Sagar at [facility]. Patient is going to [facility] for renal biopsy. Provide head to toe assessment, vs, labs, , respiratory, cardio, IV site, A/O, and medications. Sagar requested to give labetalol early before transfer to [facility].
[2025-04-22 07:03] LABS: Anion Gap 11.0 mmol/L (3-11); BUN 78 mg/dL (7-18); CO2 27.0 mmol/L (21.0-32.0); Calcium 8.4 mg/dL (8.5-10.1); Chloride 98 mmol/L (98-107); Estimated GFR 13.17 (mL/min/1.73m2); Glucose 104 mg/dL (74-106); Potassium 5.0 mmol/L (3.5-5.1); Sodium 136 mmol/L (136-145)
[2025-04-22] MEDS: Labetalol 100 MG TAB 150 MG PO ×2 (07:10→21:09)
[2025-04-22] MEDS: Normal Saline Flush 10 ML SYR IVP (07:27)
--- NOTE | 2025-04-22 08:34 | PDOC.CMPRO ---
Date of service: 04/22/25 Time of Service: 11:30 Care Management Progress Note Progress Note Text Progress Note Text: Francie went to [facility] today when CM attempted to meet with her. She has gone for a down and back to undergo a renal biospy. Per report, she will remain NPO; Urology consult ordered. CM will continue to follow. Discharge Potential Discharge Needs: PCP F/U Appt Anticipated Barriers to Discharge: None Identified Patient/Family Education Needs: Review discharge instructions, discuss Ask Me Three Transportation: Private vehicle Plan: Anticipate Francie will return home once medically cleared. She may need [facility] private vehicle for transport home. She will follow up with her PCP and discharge plan of care. CM will continue to follow. Social Determinants of Health Screening Social Determinants of health last assessed in clinic: 04/22/25 Will the Patient Participate in the Screening?: Yes Do you worry about having a steady place to live?: no Problems where you live: other In the past 12 months, have you had to go without electric, gas, oil or water in your home?: no 1. Within the past 12 months, we worried whether our food would run out before we got money to buy more.: Don't know/refused 2. Within the past 12 months, the food we bought just didn't last and we didn't have money to get more.: Don't know/refused Has lack of transportation kept you from medical appointments or from doing things needed for daily living?: yes Has anyone in your life made you feel unsafe or unsupported?: no How hard is it for you to pay for the very basics like food, housing, medical care, and heating? Would you say it is:: Not hard at all Do you want help finding or keeping work or a job?: I do not need or want help If for any reason you need help with day-to-day activities such as bathing, preparing meals, shopping, managing finances, etc., do you get the help you need?: I don?t need any help How often do you feel lonely or isolated from those around you?: Sometimes Do you speak a language other than [place] at home?: No Does the patient want assistance with any of the above?: No Health Related Social Needs Health related social needs: inadequate housing (Z59.1), transportation insecurity (Z59.82) and feeling lonely/isolated (Z60.8) Health related social needs details: old house
[2025-04-22 10:07] LABS: Kappa Free Light Chain 25.95 mg/dL (0.33-1.94); Lambda Free Light Chain 3.41 mg/dL (0.57-2.63)
--- NOTE | 2025-04-22 10:54 | W.PM.PROGNOT ---
Date of Service Date of service: 04/22/25 Time of Service: 10:54 Assessment and Plan Assessment and plan (1) Acute kidney injury superimposed on CKD: Status: Acute Assessment and plan: was thought in the setting of decompensated heart failure with preserved ejection fraction, being diuresed with no significant improvement in kidney function. Ongoing strict I&O with worsening hematuria and proteinuria, decreasing kidney function, left flank pain. stop all agents that can cause glomerular nephritis: acetaminophen, amlodipine, lasix and ceftriaxone per pharmacy review Cr was 2.8 from 3.1- now 3.7 Renal ultrasound completed - report :now mild to moderate left hydronephrosis- consulting w urology differentials: lupus nephritis with Hx of lupus and findings of adenopathy on abd and pelvic CT pointing to flare of the condition [facility] [place] Rolle-- recommending IR renal biopsy - IR renal Bx completed today - 3-4 days for results - no complication reported - gross hematuria as expected will trend CBC and continue to monitor - Will reach back to nephrology in AM considering consultation rheumatolgy ( [place] [facility] [place] added labs pending : anti-double stranded DNA titier low complement C3&4, CPK (98) left flank pain improving s/p IR will proceed with stent w Dr. Hassan today due to Renal US with new left hydronephrosis No renal findings on non contrast CT except for adenopathy - that could be d/t lupus flare VS lymphoma Will initiate slow IV hydration Labs in AM (2) Lupus nephritis: Status: Acute Assessment and plan: As per point 1 Renal biopsy result pending and as per point 3 Consider ANKUSH in the setting of adenopathy findings on CT and renal biopsy results when available (3) Lupus (systemic lupus erythematosus): Status: Chronic Assessment and plan: On hydroxycloroquine as per home dose for chronic management Suspected flare as per C3, C4 , CRP and renal involvement as per above Abdominal CT findings: multiple small superior mediastinal lymph nodes; subcarinal adenopathy measures 3.7 cm transverse; mild bilateral hilar adenopathy, mildly enlarged lymph nodes in both axilla-all appear to have increased in size compared with the previous exam. Methylprednisolone 500 mg IV daily X 3 days As per point 1 (4) Urinary tract infection: Status: Acute Assessment and plan: Resolved completed stop ceftriaxone day 3 of 3, cultures GNR and GPC < 10 K- not furhter antibiotic needed No dysuria frequency or urgency. No true CVA tenderness; left flank/ abd pain but no evidence of pyelonephrtitis on CT scan (5) Abdominal pain: Status: Acute Assessment and plan: CAT scan of the abdomen and pelvis completed on 04/18 reviewed and no etiology to explain symptoms and as per point 1 Normal white count, no fever, benign abdominal exam PRN oxycodone (6) Acute exacerbation of CHF (congestive heart failure): Status: Acute Assessment and plan: With preserved ejection fraction- initial working diagnostic no longer valid Echo shows EF 65% no wall motion abnormality right ventricular systolic pressure 50 mmHg No further diuresis in setting of worsening kidney function, monitor closely Cr 3.0 on admission - lowest at 2.8 back to 3.7 Nephrotoxic meds reviewed and discontinued as possible Labs in AM Continue intake and output with daily weights (7) Hypertension: Status: Chronic Assessment and plan: Ongoing hold of thiazide, ARBs, and amlodipine on hold Monitor and adjust meds as needed On labetalol for BP 140-90 goal prior to renal biopsy Correct HTN urgency/ emergency as needed (8) Leg wound, right: Status: Acute Assessment and plan: Ongoing care as per standing orders (9) Hyperlipidemia: Assessment and plan: home statin dose (10) On deep vein thrombosis (DVT) prophylaxis: Status: Acute Assessment and plan: Was on LMWH, renal dosing hold for Bx/ renal stent - will most likely restart in AM Discussed with Dr. 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70 H Absolute Lymphocytes 0.50 L Absolute Monocytes 1.05 H Absolute Eosinophils 0.20 Absolute Basophils 0.02 ESR 28 Sodium 136 Potassium 5.0 Chloride 98 Carbon Dioxide 27.0 Anion Gap 11.0 BUN 78 H Creatinine 3.7 H* D Est GFR (CKD-EPI 2020) 13.17 Glucose 104 Calcium 8.4 L C-Reactive Protein 19.05 H C-React Prot High Sens >15.00 Total Protein (PEP) 5.5 L PAWSS Have you Been Recently Intoxicated or Drunk Within the Last 30 days?: No Have you Ever Experienced Previous Episodes of Alcohol Withdrawal?: No Have you ever Experienced Withdrawal Seizures?: No Have you ever Experienced Delirium Tremens(DT)s?: No Have you ever undergone Alcohol Rehabilitation Treatment (i.e, inpt ot outpatient treatment programs)?: No Have you ever Experienced Blackouts?: No Have you ever Combined Alcohol with other Downers within the last 90 days?: No Have you ever Combined Alcohol with any other Substance of Abuse during the last 90 days?: No Positive Blood Alcohol level on Presentation? [PCS.BAL]: No Evidence of Increased Autonomic Activity (i.e. HR>120, tremor, sweating, agitation, nausea)?: No Result: 0 Time Spent with Patient Time Spent with Patient: >50 minutes Time was spent: preparing to see the patient(eg.review tests), obtaining and/or reviewing separately otained hiistory, ordering medications,tests, procedures, referring, communicating with other health respiratory care faculty, indepentently interpreting results, counseling the patient, care coordination and other
[2025-04-22 15:16] LABS: Albumin 58.4 % (55.8-66.1); Albumin g/dL 3.2 g/dL (3.6-5.2); Alpha 1 g/dL 0.60 g/dL (0.15-0.40); Alpha 2 g/dL 0.60 g/dL (0.50-1.00); Beta g/dL 0.60 g/dL (0.60-1.20); Gamma g/dL 0.50 g/dL (0.60-1.60)
[2025-04-22 16:59] LABS: Eosinophils, U 0 % (0%)
--- NOTE | 2025-04-22 17:00 | DI.RAD_ITS ---
Exam(s) XR RETROGRADE IN OR EXAM: XR RETROGRADE IN OR CLINICAL HISTORY: LEFT HYDRONEPHROSIS. TECHNIQUE: Fluoroscopy was provided for the referring physician for guidance with performing retrograde procedure. COMPARISON: CT CT CHEST/ABD/PEL WO from 04/18/2025 US US RENAL from 04/21/2025 FINDINGS: Please see procedure note for details. Fluoro time: 4.7 seconds RADIATION DOSE DELIVERED: Ka,r=1.24 mGy
--- NOTE | 2025-04-22 17:12 | W.ANESPRE ---
General Info Date of Service Date Performed: 04/22/25 Height: 5 ft 5 in Weight: 94.4 kg Body Mass Index (BMI): 34.6 Surgical Procedure: Operation Date: 04/22/25 17:30 Proposed Procedure Side Surgeon p Cystoscopy/Retrograde Stef Hassan MD Meds Allergies and Home Medications Allergies Allergy/AdvReac Type Severity Reaction Status Date / Time No Known Allergies Allergy Verified 04/18/25 08:32 Home Medication ?Medication ?Instructions ?Recorded hydroxychloroquine 200 mg tablet 200 mg PO DAILY #30 tab-caps 11/16/16 levothyroxine 125 mcg tablet 150 mcg PO HS 05/25/17 albuterol sulfate 90 mcg/actuation 2 puff inhalation Q6H PRN 10/04/18 aerosol inhaler (ProAir HFA) shortness of breath calcium carbonate (Oyster Shell 500 mg PO DAILY 07/05/19 Calcium) losartan 100 1 tab PO DAILY 07/05/19 mg-hydrochlorothiazide 12.5 mg tablet acetaminophen 500 mg tablet 1,000 mg (2 x 500 mg) PO Q8H PRN 07/17/19 pain #90 tabs aspirin 81 mg tablet,delayed 81 mg PO DAILY 05/08/20 release ibuprofen 600 mg tablet 600 mg PO Q8H PRN pain #60 tabs 08/17/23 gabapentin 400 mg capsule 400 mg PO BID 05/20/24 amlodipine 2.5 mg tablet 2.5 mg PO DAILY 01/31/25 simvastatin 20 mg tablet 40 mg PO DAILY 01/31/25 furosemide 20 mg tablet (Lasix) 20 mg PO BID #10 tabs 04/13/25 magnesium oxide 500 mg capsule 500 mg PO DAILY #20 caps 04/13/25 fluticasone propionate 110 2 inh inhalation BID 04/18/25 mcg/actuation HFA aerosol inhaler loratadine 10 mg capsule (Allergy 10 mg PO DAILY 04/18/25 Relief (loratadine)) pramipexole 0.125 mg tablet 0.25 mg PO QPM 04/18/25 Current Visit Medications: Current Medications Generic Name Dose Route Start Last Admin Trade Name Freq PRN Reason Stop Dose Admin Albuterol Sulfate 2 puff 04/18/25 14:52 04/22/25 04:06 Albuterol Hfa 8 Gm 60 Puff Inh IH 2 puff Q6H PRN PRN Administration Shortness of Breath Albuterol/Ipratropium 3 ml 04/18/25 13:41 04/19/25 15:15 Albuterol/Ipratropium 3 Ml Upd Vial UPD 3 ml Q6H PRN PRN Administration Aspirin 81 mg 04/19/25 08:30 04/21/25 08:32 Aspirin E.C. 81 Mg Tabec PO 81 mg DAILY WILLIE Administration Calcium Carbonate 1.25 gm 04/19/25 08:30 04/21/25 08:32 Calcium Carbonate 1.25 Gm Tab PO 1.25 gm DAILY WILLIE Administration Cyclobenzaprine HCl 10 mg 04/21/25 03:56 04/21/25 06:09 Cyclobenzaprine 10 Mg Tab PO 10 mg TID PRN PRN Administration Docusate Sodium 100 mg 04/18/25 13:41 Docusate Sodium 100 Mg Cap PO TID PRN PRN Enoxaparin Sodium 30 mg 04/22/25 22:00 Enoxaparin 30 Mg/0.3 Ml Syr SC Q24H WILLIE Gabapentin 300 mg 04/18/25 20:00 04/21/25 20:12 Gabapentin 300 Mg Cap PO 300 mg BID WILLIE Administration Hydroxychloroquine Sulfate 200 mg 04/19/25 08:30 04/21/25 08:32 Hydroxychloroquine 200 Mg Tab PO 200 mg DAILY WILLIE Administration Labetalol HCl 150 mg 04/22/25 07:00 04/22/25 07:10 Labetalol 100 Mg Tab PO 150 mg BID WILLIE Administration Levothyroxine Sodium 150 mcg 04/18/25 20:00 04/21/25 20:12 Levothyroxine 150 Mcg Tab PO 150 mcg HS WILLIE Administration Lidocaine 1 patch 04/18/25 20:00 04/21/25 20:12 Lidocaine 5% Patch TP 1 patch Q24H WILLIE Administration Loratadine 10 mg 04/20/25 08:30 04/20/25 09:50 Loratidine 10 Mg Tab PO 10 mg Q48H WILLIE Administration Magnesium Oxide 400 mg 04/19/25 08:30 04/21/25 13:19 Magnesium Oxide 400 Mg Tab PO Not Given DAILY WILLIE Miscellaneous 1 each 04/19/25 08:00 04/21/25 08:40 Lidocaine Patch Removal TP 1 each Q24H WILLIE Administration Mometasone Furoate 2 puff 04/18/25 20:00 04/22/25 08:34 Mometasone 220 Mcg 14 Dose Inhaler IH Not Given BID WILLIE Multi-Ingredient Mouthwash/Gargle 237 ml 04/18/25 21:30 04/18/25 22:03 Biotene Mouthwash 237 Ml Btl MM 5 ml BID PRN PRN Administration Oxycodone HCl 2.5 mg 04/21/25 19:00 04/22/25 03:35 Oxycodone 5 Mg Tab PO 2.5 mg Q8H PRN PRN Administration Polyethylene Glycol 17 gm 04/19/25 13:00 04/21/25 20:24 Polyethylene Glycol 3350 17 Gm Packet PO Not Given BID WILLIE Pramipexole Dihydrochloride 0.25 mg 04/18/25 20:00 04/21/25 20:12 Pramipexole 0.25 Mg Tab PO 0.25 mg QPM WILLIE Administration Simvastatin 40 mg 04/19/25 08:30 04/21/25 08:33 Simvastatin 20 Mg Tab PO 40 mg DAILY WILLIE Administration Sodium Chloride 0 ml 04/19/25 08:44 04/22/25 07:27 Normal Saline Flush 10 Ml Syr IVP 20 ml PRN PRN Administration PFSH Active Problems Active Problems: Problem Status Onset Code Hydronephrosis, left Acute N13.30 Abdominal pain Acute R10.9 On deep vein thrombosis (DVT) prophylaxis Acute Z79.899 Acute exacerbation of CHF (congestive heart failure) Acute I50.9 Acute kidney injury superimposed on CKD Acute N17.9, N18.9 Hypertension Chronic I10 Hematuria Acute R31.9 GAVIN (acute kidney injury) Acute N17.9 Mild peripheral edema Acute R60.0 CHF (congestive heart failure) Chronic I50.9 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, 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 Leg wound, right Acute S81.801A Chronic wound Acute T14.8XXA 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 Headache Acute R51.9 Urinary tract infection Acute N39.0 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 Diverticulitis of sigmoid colon Acute K57.32 Amyloidosis Chronic Herniated nucleus pulposus, lumbar Chronic M51.26 Antiphospholipid syndrome Chronic Trigger thumb of right hand Acute M65.311 Trigger thumb of left hand Chronic M65.312 Nasal vestibulitis Acute 11/02/17 J34.89 Nasal congestion Acute 06/19/14 R09.81 Deviated nasal septum Acute 06/19/14 J34.2 Cephalgia Acute 11/20/14 R51 Constipation Chronic HTN (hypertension) Chronic GERD (gastroesophageal reflux disease) Chronic Diverticulitis of sigmoid colon Resolved Lupus Chronic Medical History Medical History (Updated 04/21/25 @ 16:35 by Stef Hassan MD) Primary localized cutaneous amyloidosis Cellulitis of right lower limb Lymphocytopenia Normal colonoscopy [place] 11/13/[address] Natalya Styles at [facility], severe diverticular dz, repeat 10 years. mg Hypocalcemia Asthma Allergic rhinitis Abnormal mammogram of right breast Degenerative joint disease Hyperlipidemia Pericarditis Eczema Chest wall pain Insomnia Sciatica, left side Surgical History Surgical History 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) History of bone marrow biopsy S/P thyroidectomy H/O: hysterectomy Tonsillectomy Tobacco Smoking/Tobacco Use Status: Former Tobacco Use Alcohol Alcohol Intake: current Alcohol intake frequency: a few times a week Alcohol type: beer and wine Substance Use Substance use: Never Substance use type: does not use Vital Signs and Lab Results Vital Signs Most Recent Vital Signs in EMR: Most Recent Vital Signs Temp Pulse Resp BP Pulse Ox 36.5 C 70 18 155/59 H 97 04/22/25 15:25 04/22/25 15:25 04/22/25 15:25 04/22/25 15:25 04/22/25 15:25 Lab Results 04/22/25 06:37 04/22/25 06:37 Blood Type / Crossmatch: Antibody Screen NEGATIVE Today Complete Blood Count: WBC, (4.4-10.8) 10.53 10^3/uL Today, 06:37 RBC, (3.93-5.22) 3.73 10^6/uL L Today, 06:37 Hgb, (11.2-15.7) 9.9 g/dL L Today, 06:37 Hct, (36.0-46.0) 29.6 % L Today, 06:37 Plt Count, (130-400) 198 10^3/uL Today, 06:37 Complete Metabolic Panel: Sodium, (136-145) 136 mmol/L Today, 06:37 Potassium, (3.5-5.1) 5.0 mmol/L Today, 06:37 Chloride, (98-107) 98 mmol/L Today, 06:37 Carbon Dioxide, (21.0-32.0) 27.0 mmol/L Today, 06:37 BUN, (7-18) 78 mg/dL H Today, 06:37 Creatinine, (0.55-1.02) 3.7 mg/dL H* Δ Today, 06:37 Est GFR (CKD-EPI 2020), (mL/min/1.73m2) 13.17 Today, 06:37 Magnesium, (1.8-2.4) 2.2 mg/dL 04/18/25, 08:35 Calcium, (8.5-10.1) 8.4 mg/dL L Today, 06:37 Albumin, (3.4-5.0) 3.2 g/dL L 04/18/25, 08:35 Glucose, (74-106) 104 mg/dL Today, 06:37 C-Reactive Protein, (<or=0.5) 19.05 mg/dL H 04/21/25, 06:55 Liver Function Panel: ALT, (14-59) 20 U/L 04/18/25, 08:35 AST, (15-37) 20 U/L 04/18/25, 08:35 Cardiac Panel: Troponin I, (<or=51) 9 ng/L 04/18/25 NT-Pro-B Natriuret Pep, (<300) 7717 pg/mL H 04/18/25 Creatine Kinase, (26-192) 98 U/L 04/20/25 Thyroid Panel: TSH, (0.36-3.74) 12.31 uIU/mL H 04/18/25, 08:35 Toxicology Panel: Ur Amphetamines Screen, (Negative) Negative 04/20/25, 03:51 U Benzodiazepines Scrn, (Negative) Negative 04/20/25, 03:51 Ur Barbiturates Screen, (Negative) Negative 04/20/25, 03:51 Urine Cocaine Screen, (Negative) Negative 04/20/25, 03:51 Urine Methadone Screen, (Negative) Negative 04/20/25, 03:51 Urine Opiates Screen, (Negative) Positive A 04/20/25, 03:51 Ur Tricyclics Screen, (Negative) Negative 04/20/25, 03:51 Ur THC Screen, (Negative) Negative 04/20/25, 03:51 Imaging and Studies Imaging and Studies Study information below may be from another EMR and interpreted by another provider. Please see original notes in EMR for more complete details. EKG Summary: 04/18/25: Exam: Resting ECG Reason for Exam: dyspnea Patient Location: E HR:71 bpm ECG Measurements Heart Rate 71 AXIS OR 143 P 38 QRSd 99 QRS -18 QT 428 T-20 QTc 466 Conclusion Sinus rhythm...normal P axis, V-rate 60- 99 Inferior infarct, old...Q >35mS, II III aVF I have reviewed and I agree with the emergency room physician's ECG interpretation. Stress Test Summary: 12/14/16: Impressions: Normal study after maximal exercise. Summary: 1. Myocardial perfusion imaging: No myocardial perfusion defects noted. 2. The calculated left ventricular ejection fraction after stress: 59%. LV global systolic function is normal. No left ventricular regional motion abnormality. 3. Stress ECG conclusions: The stress ECG is negative. Urena treadmill score: 6. This score predicts a low risk of cardiac events. 4. Stress: The target heart rate was achieved. There is a normal resting blood pressure. The patient experienced no chest pain during stress. Exercise capacity is above normal for age. Echocardiogram Summary: 04/18/25: Conclusion Normal left ventricular wall thickness and chamber size. Ejection fraction is 65%. Wall motion is normal Normal right ventricular size and function Moderately dilated left atrium. Normal right atrial size The aortic valve is trileaflet and mildly sclerotic with trace regurgitation Mild mitral and tricuspid regurgitation Estimated right ventricular systolic pressure is 50 mmHg Mildly dilated ascending aorta 3.78 cm Pulmonary Function Summary: 04/14/23: Pulmonary Function Test Result Indications: Centromere antibody positive Interpretation Spirometry: No airflow limitation. Low FVC. No significant bronchodilator response. Lung Volumes: Normal lung volumes. Diffusion Capacity: Normal diffusion. Airway Pressure: Normal airways resistance. Impression Normal pulmonary function. Low FVC likely pseudo-restriction from obesity. Clinical Correlation therefore is recommended. Anesthesia Assessment and Plan Anesthesia History Personal History: No History of Anesthesia Complications and No History of General Anesthesia Family History: No Family History of Anesthesia Complications and Other Exercise Tolerance Exercise Tolerance: Metabolic Equivalents>4 Pertinent Negatives Pertinent Negatives: No Symptoms of GERD, No Major Cardiovascular Symptoms or Complaints and No History of CVA/TIA Cardiac & Pulmonary Exam Cardiac Exam: Normal S1/S2 Heart Sounds Pulmonary Exam: Clear Bilateral Breath Sounds Implantable Cardiac Device Does patient have a Pacemaker or an ICD?: No Airway Exam Known Difficult Airway: No Mallampati Class: 3 Mouth Opening: Normal (> 3cm) Thyromental Distance: Greater than 3 cm Neck Range of Motion: Full ROM Neck Circumference: Normal Teeth Condition: Removable Dentures/Plates Upper and Removable Dentures/Plates Lower ASA Classification ASA Score: ASA 3 Emergency Case?: Yes NPO Status NPO Status: NPO Clears >2 hours, Solids >8 hours Anesthesia Plan Resuscitation Status: Full Code Anesthesia Technique: MAC Anesthesia Airway Planned: Natural Airway Monitors Used: Standard Monitors
[2025-04-22] MEDS: Cephalexin 250 MG CAP PO (17:21)
[2025-04-22] MEDS: Lactated Ringers 1,000 ML 30 ML IV (17:32)
--- NOTE | 2025-04-22 17:32 | W.ANESPRE ---
General Info Date of Service Date Performed: 04/22/25 Height: 5 ft 5 in Weight: 94.4 kg Body Mass Index (BMI): 34.6 Surgical Procedure: Operation Date: 04/22/25 17:30 Proposed Procedure Side Surgeon p Cystoscopy/Retrograde Stef Hassan MD Meds Allergies and Home Medications Allergies Allergy/AdvReac Type Severity Reaction Status Date / Time No Known Allergies Allergy Verified 04/18/25 08:32 Home Medication ?Medication ?Instructions ?Recorded hydroxychloroquine 200 mg tablet 200 mg PO DAILY #30 tab-caps 11/16/16 levothyroxine 125 mcg tablet 150 mcg PO HS 05/25/17 albuterol sulfate 90 mcg/actuation 2 puff inhalation Q6H PRN 10/04/18 aerosol inhaler (ProAir HFA) shortness of breath calcium carbonate (Oyster Shell 500 mg PO DAILY 07/05/19 Calcium) losartan 100 1 tab PO DAILY 07/05/19 mg-hydrochlorothiazide 12.5 mg tablet acetaminophen 500 mg tablet 1,000 mg (2 x 500 mg) PO Q8H PRN 07/17/19 pain #90 tabs aspirin 81 mg tablet,delayed 81 mg PO DAILY 05/08/20 release ibuprofen 600 mg tablet 600 mg PO Q8H PRN pain #60 tabs 08/17/23 gabapentin 400 mg capsule 400 mg PO BID 05/20/24 amlodipine 2.5 mg tablet 2.5 mg PO DAILY 01/31/25 simvastatin 20 mg tablet 40 mg PO DAILY 01/31/25 furosemide 20 mg tablet (Lasix) 20 mg PO BID #10 tabs 04/13/25 magnesium oxide 500 mg capsule 500 mg PO DAILY #20 caps 04/13/25 fluticasone propionate 110 2 inh inhalation BID 04/18/25 mcg/actuation HFA aerosol inhaler loratadine 10 mg capsule (Allergy 10 mg PO DAILY 04/18/25 Relief (loratadine)) pramipexole 0.125 mg tablet 0.25 mg PO QPM 04/18/25 Current Visit Medications: Current Medications Generic Name Dose Route Start Last Admin Trade Name Freq PRN Reason Stop Dose Admin Albuterol Sulfate 2 puff 04/18/25 14:52 04/22/25 04:06 Albuterol Hfa 8 Gm 60 Puff Inh IH 2 puff Q6H PRN PRN Administration Shortness of Breath Albuterol/Ipratropium 3 ml 04/18/25 13:41 04/19/25 15:15 Albuterol/Ipratropium 3 Ml Upd Vial UPD 3 ml Q6H PRN PRN Administration Aspirin 81 mg 04/19/25 08:30 04/21/25 08:32 Aspirin E.C. 81 Mg Tabec PO 81 mg DAILY WILLIE Administration Bacteriostatic Water 0 ml 04/22/25 17:26 Water,Injection,Bacteriostatic 30 Ml Vial IJ DIRECTED PRN Calcium Carbonate 1.25 gm 04/19/25 08:30 04/21/25 08:32 Calcium Carbonate 1.25 Gm Tab PO 1.25 gm DAILY WILLIE Administration Cyclobenzaprine HCl 10 mg 04/21/25 03:56 04/21/25 06:09 Cyclobenzaprine 10 Mg Tab PO 10 mg TID PRN PRN Administration Docusate Sodium 100 mg 04/18/25 13:41 Docusate Sodium 100 Mg Cap PO TID PRN PRN Enoxaparin Sodium 30 mg 04/22/25 22:00 Enoxaparin 30 Mg/0.3 Ml Syr SC Q24H WILLIE Gabapentin 300 mg 04/18/25 20:00 04/21/25 20:12 Gabapentin 300 Mg Cap PO 300 mg BID WILLIE Administration Hydroxychloroquine Sulfate 200 mg 04/19/25 08:30 04/21/25 08:32 Hydroxychloroquine 200 Mg Tab PO 200 mg DAILY WILLIE Administration Methylprednisolone Sodium 108 mls @ 200 mls/hr 04/22/25 17:26 Succinate 500 mg/ Sodium IVPB 04/22/25 17:58 Chloride NOW ONE Labetalol HCl 150 mg 04/22/25 07:00 04/22/25 07:10 Labetalol 100 Mg Tab PO 150 mg BID WILLIE Administration Levothyroxine Sodium 150 mcg 04/18/25 20:00 04/21/25 20:12 Levothyroxine 150 Mcg Tab PO 150 mcg HS WILLIE Administration Lidocaine 1 patch 04/18/25 20:00 04/21/25 20:12 Lidocaine 5% Patch TP 1 patch Q24H WILLIE Administration Loratadine 10 mg 04/20/25 08:30 04/20/25 09:50 Loratidine 10 Mg Tab PO 10 mg Q48H WILLIE Administration Magnesium Oxide 400 mg 04/19/25 08:30 04/21/25 13:19 Magnesium Oxide 400 Mg Tab PO Not Given DAILY WILLIE Miscellaneous 1 each 04/19/25 08:00 04/21/25 08:40 Lidocaine Patch Removal TP 1 each Q24H WILLIE Administration Mometasone Furoate 2 puff 04/18/25 20:00 04/22/25 08:34 Mometasone 220 Mcg 14 Dose Inhaler IH Not Given BID WILLIE Multi-Ingredient Mouthwash/Gargle 237 ml 04/18/25 21:30 04/18/25 22:03 Biotene Mouthwash 237 Ml Btl MM 5 ml BID PRN PRN Administration Oxycodone HCl 2.5 mg 04/21/25 19:00 04/22/25 03:35 Oxycodone 5 Mg Tab PO 2.5 mg Q8H PRN PRN Administration Polyethylene Glycol 17 gm 04/19/25 13:00 04/21/25 20:24 Polyethylene Glycol 3350 17 Gm Packet PO Not Given BID WILLIE Pramipexole Dihydrochloride 0.25 mg 04/18/25 20:00 04/21/25 20:12 Pramipexole 0.25 Mg Tab PO 0.25 mg QPM WILLIE Administration Simvastatin 40 mg 04/19/25 08:30 04/21/25 08:33 Simvastatin 20 Mg Tab PO 40 mg DAILY WILLIE Administration Sodium Chloride 0 ml 04/19/25 08:44 04/22/25 07:27 Normal Saline Flush 10 Ml Syr IVP 20 ml PRN PRN Administration PFSH Active Problems Active Problems: Problem Status Onset Code Hydronephrosis, left Acute N13.30 Abdominal pain Acute R10.9 On deep vein thrombosis (DVT) prophylaxis Acute Z79.899 Acute exacerbation of CHF (congestive heart failure) Acute I50.9 Acute kidney injury superimposed on CKD Acute N17.9, N18.9 Hypertension Chronic I10 Hematuria Acute R31.9 GAVIN (acute kidney injury) Acute N17.9 Mild peripheral edema Acute R60.0 CHF (congestive heart failure) Chronic I50.9 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, 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 Leg wound, right Acute S81.801A Chronic wound Acute T14.8XXA 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 Headache Acute R51.9 Urinary tract infection Acute N39.0 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 Diverticulitis of sigmoid colon Acute K57.32 Amyloidosis Chronic Herniated nucleus pulposus, lumbar Chronic M51.26 Antiphospholipid syndrome Chronic Trigger thumb of right hand Acute M65.311 Trigger thumb of left hand Chronic M65.312 Nasal vestibulitis Acute 11/02/17 J34.89 Nasal congestion Acute 06/19/14 R09.81 Deviated nasal septum Acute 06/19/14 J34.2 Cephalgia Acute 11/20/14 R51 Constipation Chronic HTN (hypertension) Chronic GERD (gastroesophageal reflux disease) Chronic Diverticulitis of sigmoid colon Resolved Lupus Chronic Medical History Medical History (Updated 04/21/25 @ 16:35 by Stef Hassan MD) Primary localized cutaneous amyloidosis Cellulitis of right lower limb Lymphocytopenia Normal colonoscopy [place] 11/13/[address] Natalya Styles at [facility], severe diverticular dz, repeat 10 years. mg Hypocalcemia Asthma Allergic rhinitis Abnormal mammogram of right breast Degenerative joint disease Hyperlipidemia Pericarditis Eczema Chest wall pain Insomnia Sciatica, left side Surgical History Surgical History 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) History of bone marrow biopsy S/P thyroidectomy H/O: hysterectomy Tonsillectomy Tobacco Smoking/Tobacco Use Status: Former Tobacco Use Alcohol Alcohol Intake: current Alcohol intake frequency: a few times a week Alcohol type: beer and wine Substance Use Substance use: Never Substance use type: does not use Vital Signs and Lab Results Vital Signs Most Recent Vital Signs in EMR: Most Recent Vital Signs Temp Pulse Resp BP Pulse Ox 36.5 C 70 18 155/59 H 97 04/22/25 15:25 04/22/25 15:25 04/22/25 15:25 04/22/25 15:25 04/22/25 15:25 Lab Results 04/22/25 06:37 04/22/25 06:37 Blood Type / Crossmatch: Antibody Screen NEGATIVE Today Complete Blood Count: WBC, (4.4-10.8) 10.53 10^3/uL Today, 06:37 RBC, (3.93-5.22) 3.73 10^6/uL L Today, 06:37 Hgb, (11.2-15.7) 9.9 g/dL L Today, 06:37 Hct, (36.0-46.0) 29.6 % L Today, 06:37 Plt Count, (130-400) 198 10^3/uL Today, 06:37 Complete Metabolic Panel: Sodium, (136-145) 136 mmol/L Today, 06:37 Potassium, (3.5-5.1) 5.0 mmol/L Today, 06:37 Chloride, (98-107) 98 mmol/L Today, 06:37 Carbon Dioxide, (21.0-32.0) 27.0 mmol/L Today, 06:37 BUN, (7-18) 78 mg/dL H Today, 06:37 Creatinine, (0.55-1.02) 3.7 mg/dL H* Δ Today, 06:37 Est GFR (CKD-EPI 2020), (mL/min/1.73m2) 13.17 Today, 06:37 Magnesium, (1.8-2.4) 2.2 mg/dL 04/18/25, 08:35 Calcium, (8.5-10.1) 8.4 mg/dL L Today, 06:37 Albumin, (3.4-5.0) 3.2 g/dL L 04/18/25, 08:35 Glucose, (74-106) 104 mg/dL Today, 06:37 C-Reactive Protein, (<or=0.5) 19.05 mg/dL H 04/21/25, 06:55 Liver Function Panel: ALT, (14-59) 20 U/L 04/18/25, 08:35 AST, (15-37) 20 U/L 04/18/25, 08:35 Cardiac Panel: Troponin I, (<or=51) 9 ng/L 04/18/25 NT-Pro-B Natriuret Pep, (<300) 7717 pg/mL H 04/18/25 Creatine Kinase, (26-192) 98 U/L 04/20/25 Thyroid Panel: TSH, (0.36-3.74) 12.31 uIU/mL H 04/18/25, 08:35 Toxicology Panel: Ur Amphetamines Screen, (Negative) Negative 04/20/25, 03:51 U Benzodiazepines Scrn, (Negative) Negative 04/20/25, 03:51 Ur Barbiturates Screen, (Negative) Negative 04/20/25, 03:51 Urine Cocaine Screen, (Negative) Negative 04/20/25, 03:51 Urine Methadone Screen, (Negative) Negative 04/20/25, 03:51 Urine Opiates Screen, (Negative) Positive A 04/20/25, 03:51 Ur Tricyclics Screen, (Negative) Negative 04/20/25, 03:51 Ur THC Screen, (Negative) Negative 04/20/25, 03:51 Imaging and Studies Imaging and Studies Study information below may be from another EMR and interpreted by another provider. Please see original notes in EMR for more complete details. EKG Summary: 04/18/25: Exam: Resting ECG Reason for Exam: dyspnea Patient Location: E HR:71 bpm ECG Measurements Heart Rate 71 AXIS VT 143 P 38 QRSd 99 QRS -18 QT 428 T-20 QTc 466 Conclusion Sinus rhythm...normal P axis, V-rate 60- 99 Inferior infarct, old...Q >35mS, II III aVF I have reviewed and I agree with the emergency room physician's ECG interpretation. Stress Test Summary: 12/14/16: Impressions: Normal study after maximal exercise. Summary: 1. Myocardial perfusion imaging: No myocardial perfusion defects noted. 2. The calculated left ventricular ejection fraction after stress: 59%. LV global systolic function is normal. No left ventricular regional motion abnormality. 3. Stress ECG conclusions: The stress ECG is negative. Urena treadmill score: 6. This score predicts a low risk of cardiac events. 4. Stress: The target heart rate was achieved. There is a normal resting blood pressure. The patient experienced no chest pain during stress. Exercise capacity is above normal for age. Echocardiogram Summary: 04/18/25: Conclusion Normal left ventricular wall thickness and chamber size. Ejection fraction is 65%. Wall motion is normal Normal right ventricular size and function Moderately dilated left atrium. Normal right atrial size The aortic valve is trileaflet and mildly sclerotic with trace regurgitation Mild mitral and tricuspid regurgitation Estimated right ventricular systolic pressure is 50 mmHg Mildly dilated ascending aorta 3.78 cm Pulmonary Function Summary: 04/14/23: Pulmonary Function Test Result Indications: Centromere antibody positive Interpretation Spirometry: No airflow limitation. Low FVC. No significant bronchodilator response. Lung Volumes: Normal lung volumes. Diffusion Capacity: Normal diffusion. Airway Pressure: Normal airways resistance. Impression Normal pulmonary function. Low FVC likely pseudo-restriction from obesity. Clinical Correlation therefore is recommended. Anesthesia Assessment and Plan Anesthesia History Personal History: No History of Anesthesia Complications Family History: No Family History of Anesthesia Complications Exercise Tolerance Exercise Tolerance: Metabolic Equivalents>4 Pertinent Negatives Pertinent Negatives: No Symptoms of GERD Cardiac & Pulmonary Exam Cardiac Exam: Normal S1/S2 Heart Sounds Pulmonary Exam: Clear Bilateral Breath Sounds Implantable Cardiac Device Does patient have a Pacemaker or an ICD?: No Airway Exam Known Difficult Airway: No Mallampati Class: 2 Mouth Opening: Normal (> 3cm) Thyromental Distance: Greater than 3 cm Neck Range of Motion: Full ROM Neck Circumference: Normal Teeth Condition: Removable Dentures/Plates Upper and Removable Dentures/Plates Lower ASA Classification ASA Score: ASA 3 Emergency Case?: No NPO Status NPO Status: NPO Clears >2 hours, Solids >8 hours Anesthesia Plan Resuscitation Status: Full Code Anesthesia Technique: General Anesthesia Airway Planned: Natural Airway Monitors Used: Standard Monitors
[2025-04-22] MEDS: Lidocaine 2% Jelly 6 ML SYR (17:45)
[2025-04-22] MEDS: Omnipaque 300 MG/ML 50 ML BTL (17:45)
--- NOTE | 2025-04-22 18:01 | W.PM.OP ---
Operative Note Operative Note PRE-OP DIAGNOSIS: Left hydronephrosis POST-OP DIAGNOSIS: same PROCEDURE: Cystoscopy, left retrograde pyelogram, insert left ureteral stent SURGEON: Stef Hassan ANESTHESIA TYPE: Local By Surgeon and General:No Airway Refer to Anesthesia Record ESTIMATED BLOOD LOSS: 5 PATHOLOGY: none sent COMPLICATIONS: None Patient was transported to: floor Patient's condition: stable Implants: 6 [place]uvian by 22 to 30 cm left ureteral stent Indications: This is a 65-year-old woman who is currently hospitalized with worsening renal failure and abdominal pain. There is concern for lupus nephritis and she actually underwent percutaneous biopsy of her right kidney earlier today. When she initially presented to the hospital, she had no hydronephrosis on either side. She has since developed left hydronephrosis of unknown etiology. As her renal function worsens and her left flank pain worsens, she is agreeable to placement of a ureteral stent. Findings: Left hydronephrosis with nephrotic drip after stent was placed Procedure Description: The patient was given a single dose of oral antibiotics and was brought to the operating room on 04/22/2025. After successful induction of general anesthesia without intubation, she was placed in the dorsal lithotomy position. Her genitalia was prepped with Betadine. 2% Xylocaine jelly was instilled into the urethra to act as a local anesthetic. The 22 [place]ian rigid cystoscope was passed through the urethra into the bladder. The bladder was inspected with a 30 degree lens. The initial inspection of the bladder revealed bloody urine but no obvious bladder tumor. It appears that the blood was coming from the right ureteral orifice and the patient had a right renal biopsy earlier today. The left orifice was identified and was cannulated with a 5 [place]uvian access catheter. A retrograde pyelogram was obtained by injecting Omnipaque through the access catheter under fluoroscopic guidance. This allowed us to outline the renal pelvis and calyces. The pelvis and calyces were dilated. I then passed a guidewire through the lumen of the catheter and removed the catheter. I then passed a 6 [place] variable length stent over the wire. The proximal end of the stent was curled in the lower pole calyx and the distal end of the stent was curled within the bladder. The positioning and the stent was confirmed both fluoroscopically and cystoscopically. Once the stent was placed, old tea-colored urine was seen coming down from the left ureteral orifice. The patient tolerated this procedure well with no complications. She will be returned to the medical surgical unit in stable condition. Date of Procedure: 04/22/25
--- NOTE | 2025-04-22 18:14 | W.ANESPOSTOP ---
Postoperative Evaluation Date, Time and Location Date Performed: 04/22/25 Time Performed: 18:14 Patient Location: Med/Surg Vital Signs Most Recent Imported Vital Signs: Most Recent Vital Signs Temp Pulse Resp BP Pulse Ox 36.5 C 70 18 155/59 H 97 04/22/25 15:25 04/22/25 15:25 04/22/25 15:25 04/22/25 15:25 04/22/25 15:25 Pain Score Most Recent Pain Score: Most Recent Pain Score Pain Level [back] 5 04/19/25 08:13 Pain Level 7 04/22/25 07:21 Assessment Mental Status: Awake (Alert & Oriented to Patient Baseline) Airway and Respiratory Function: Patent airway with normal (patient baseline) respiratory exam Cardiovascular Function: Hemodynamically Stable Hydration Status: Adequately Hydrated Nausea & Vomiting: No Nausea or Vomiting Pain: Pain is tolerable per patient Peripheral Nerve Block: Patient did not receive a nerve block
[2025-04-22] MEDS: Lactated Ringers 1,000 ML 100 ML IV (18:59)
--- NOTE | 2025-04-22 19:48 | W.PC.ACHO ---
Registration Status: ADM IN Primary Language: Preferred Language: Kiswahili ED Information & Data Chief Complaint GenMedical 04/18/25 09:21 Chief Complaint GenMedical 04/18/25 08:50 Triage Note Patient complaining of 04/18/25 08:26 swelling in both legs, SOB, low back pain for 1 week Medical / Surgical History (Last Updated 01/31/25 @ 11:50 by Carleen Elizabeth RN) Primary localized cutaneous amyloidosis Cellulitis of right lower limb Lymphocytopenia Normal colonoscopy Hypocalcemia Asthma Allergic rhinitis Abnormal mammogram of right breast Degenerative joint disease Hyperlipidemia Pericarditis Eczema Chest wall pain Insomnia Sciatica, left side (Last Reviewed 11/27/24 @ 16:02 by Evan Whitmore MD) 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) History of bone marrow biopsy S/P thyroidectomy H/O: hysterectomy Tonsillectomy Most Recent Vital Signs Temperature 36.5 C 04/22/25 15:25 Temperature Source Temporal Artery Scan 04/22/25 07:21 Pulse 74 04/22/25 19:06 Pulse Rhythm Regular 04/18/25 13:56 Pulse 67 04/18/25 12:42 Respiratory Rate 18 04/22/25 15:25 Respiratory Effort Normal, Non-Labored 04/18/25 13:56 Respiratory Depth Normal 04/18/25 13:56 Respiratory Pattern Normal 04/18/25 13:56 Blood Pressure 143/57 H 04/22/25 19:06 Blood Pressure Mean 85 04/22/25 19:06 Pulse Oximetry 91 L 04/22/25 19:06 Oxygen Delivery Method Room Air 04/22/25 07:21 Oxygen Flow Rate 0 04/22/25 07:21 Pain Level 7 04/22/25 07:21 Comment rn in room when vitals taken 04/21/25 11:30 Allergies No Known Allergies Allergy (Verified 04/18/25 08:32) Precautions Isolation Standard precaution 04/18/25 08:33 Active Medications Generic Name Dose Route Start Last Admin Trade Name Freq PRN Reason Stop Dose Admin Albuterol Sulfate 2 puff 04/18/25 14:52 04/22/25 04:06 Albuterol Hfa 8 Gm 60 Puff Inh IH 2 puff Q6H PRN PRN Administration Shortness of Breath Albuterol/Ipratropium 3 ml 04/18/25 13:41 04/19/25 15:15 Albuterol/Ipratropium 3 Ml Upd Vial UPD 3 ml Q6H PRN PRN Administration Aspirin 81 mg 04/19/25 08:30 04/22/25 18:14 Aspirin E.C. 81 Mg Tabec PO Not Given DAILY WILLIE Calcium Carbonate 1.25 gm 04/19/25 08:30 04/22/25 18:14 Calcium Carbonate 1.25 Gm Tab PO Not Given DAILY WILLIE Cyclobenzaprine HCl 10 mg 04/21/25 03:56 04/21/25 06:09 Cyclobenzaprine 10 Mg Tab PO 10 mg TID PRN PRN Administration Gabapentin 300 mg 04/18/25 20:00 04/22/25 18:14 Gabapentin 300 Mg Cap PO Not Given BID WILLIE Hydroxychloroquine Sulfate 200 mg 04/19/25 08:30 04/22/25 18:14 Hydroxychloroquine 200 Mg Tab PO Not Given DAILY WILLIE Ringer's Solution 1,000 mls @ 30 mls/hr 04/22/25 18:00 04/22/25 18:01 IV Infused INFUSION WILLIE Infusion Ringer's Solution 1,000 mls @ 100 mls/hr 04/22/25 18:05 04/22/25 18:59 IV 04/23/25 04:04 100 mls/hr INFUSION ONE Administration Labetalol HCl 150 mg 04/22/25 07:00 04/22/25 07:10 Labetalol 100 Mg Tab PO 150 mg BID WILLIE Administration Levothyroxine Sodium 150 mcg 04/18/25 20:00 04/21/25 20:12 Levothyroxine 150 Mcg Tab PO 150 mcg HS WILLIE Administration Lidocaine 1 patch 04/18/25 20:00 04/21/25 20:12 Lidocaine 5% Patch TP 1 patch Q24H WILLIE Administration Loratadine 10 mg 04/20/25 08:30 04/22/25 18:15 Loratidine 10 Mg Tab PO Not Given Q48H WILLIE Magnesium Oxide 400 mg 04/19/25 08:30 04/22/25 18:15 Magnesium Oxide 400 Mg Tab PO Not Given DAILY [facility] Miscellaneous 1 each 04/19/25 08:00 04/21/25 08:40 Lidocaine Patch Removal TP 1 each Q24H WILLIE Administration Mometasone Furoate 2 puff 04/18/25 20:00 04/22/25 08:34 Mometasone 220 Mcg 14 Dose Inhaler IH Not Given BID WILLIE Multi-Ingredient Mouthwash/Gargle 237 ml 04/18/25 21:30 04/18/25 22:03 Biotene Mouthwash 237 Ml Btl MM 5 ml BID PRN PRN Administration Oxycodone HCl 2.5 mg 04/21/25 19:00 04/22/25 03:35 Oxycodone 5 Mg Tab PO 2.5 mg Q8H PRN PRN Administration Polyethylene Glycol 17 gm 04/19/25 13:00 04/22/25 18:16 Polyethylene Glycol 3350 17 Gm Packet PO Not Given BID WILLIE Pramipexole Dihydrochloride 0.25 mg 04/18/25 20:00 04/21/25 20:12 Pramipexole 0.25 Mg Tab PO 0.25 mg QPM WILLIE Administration Simvastatin 40 mg 04/19/25 08:30 04/22/25 18:16 Simvastatin 20 Mg Tab PO Not Given DAILY WILLIE Sodium Chloride 0 ml 04/19/25 08:44 04/22/25 07:27 Normal Saline Flush 10 Ml Syr IVP 20 ml PRN PRN Administration IV IV Catheter Type [Right Saline Lock Antecubital] IV Catheter Gauge [Right 18 Antecubital] Diet Orders Category Date Time Status DIET [Renal] [DIET] Nutrition 04/23/25 Breakfast Ordered Diagnostics 04/22/25 04/22/25 04/21/25 Range/Units 16:20 06:37 06:55 WBC 10.53 (4.4-10.8) 10^3/uL RBC 3.73 L (3.93-5.22) 10^6/uL Hgb 9.9 L (11.2-15.7) g/dL Hct 29.6 L (36.0-46.0) % MCV 79 L (80-95) fL MCH 26.5 L (27.0-33.0) pg MCHC 33.4 (32.0-36.0) % RDW 14.1 (11.7-14.6) % Plt Count 198 (130-400) 10^3/uL MPV 9.5 (8.0-11.0) fL Immature Gran % 0.6 % Neutrophils % 82.6 % Lymphocytes % 4.7 % Monocytes % 10.0 % Eosinophils % 1.9 % Basophils % 0.2 % Nucleated RBC % 0.0 (0.0-0.3) % Absolute Neutrophils 8.70 H (1.2-6.7) 10^3/uL Absolute Lymphocytes 0.50 L (1.2-3.4) 10^3/uL Absolute Monocytes 1.05 H (0.1-0.8) 10^3/uL Absolute Eosinophils 0.20 (0.0-0.7) 10^3/uL Absolute Basophils 0.02 (0.0-0.2) 10^3/uL Sodium 136 (136-145) mmol/L Potassium 5.0 (3.5-5.1) mmol/L Chloride 98 (98-107) mmol/L Carbon Dioxide 27.0 (21.0-32.0) mmol/L Anion Gap 11.0 (3-11) mmol/L BUN 78 H (7-18) mg/dL Creatinine 3.7 H* D (0.55-1.02) mg/dL Est GFR (CKD-EPI 2020) 13.17 (mL/min/1.73m2) Glucose 104 (74-106) mg/dL Calcium 8.4 L (8.5-10.1) mg/dL C-React Prot High Sens >15.00 (See Note) mg/L Total Protein (PEP) (6.3-8.2) g/dL Albumin % (PEP) (55.8-66.1) % Albumin (PEP) (3.6-5.2) g/dL Iitpg-6-Kapdcnoiq (0.15-0.40) g/dL Kzpja-7-Mkamuiudm (%) (2.9-4.9) % Rgadr-2-Twacvckvm (0.50-1.00) g/dL Nncyn-4-Rxikgzfep (%) (7.1-11.8) % Beta Globulins (%) (8.4-13.1) % Beta Gamma Globulin (0.60-1.20) g/dL Gamma Globulins (0.60-1.60) g/dL Gamma Globulins (%) (11.1-18.8) % M-Xavier M-Xavier % PEP Comment Serum Immunofixation Complement C3 (81-157) mg/dL Complement C4 (13-39) mg/dL Free [place] LC, Quant (0.33-1.94) mg/dL Free Lambda LC, Quant (0.57-2.63) mg/dL Free [place]/Lambda Ratio (0.26-1.65) ABO/Rh O Positive Antibody Screen NEGATIVE 04/21/25 04/20/25 Range/Units 06:26 11:20 WBC (4.4-10.8) 10^3/uL RBC (3.93-5.22) 10^6/uL Hgb (11.2-15.7) g/dL Hct (36.0-46.0) % MCV (80-95) fL MCH (27.0-33.0) pg MCHC (32.0-36.0) % RDW (11.7-14.6) % Plt Count (130-400) 10^3/uL MPV (8.0-11.0) fL Immature Gran % % Neutrophils % % Lymphocytes % % Monocytes % % Eosinophils % % Basophils % % Nucleated RBC % (0.0-0.3) % Absolute Neutrophils (1.2-6.7) 10^3/uL Absolute Lymphocytes (1.2-3.4) 10^3/uL Absolute Monocytes (0.1-0.8) 10^3/uL Absolute Eosinophils (0.0-0.7) 10^3/uL Absolute Basophils (0.0-0.2) 10^3/uL Sodium (136-145) mmol/L Potassium (3.5-5.1) mmol/L Chloride (98-107) mmol/L Carbon Dioxide (21.0-32.0) mmol/L Anion Gap (3-11) mmol/L BUN (7-18) mg/dL Creatinine (0.55-1.02) mg/dL Est GFR (CKD-EPI 2020) (mL/min/1.73m2) Glucose (74-106) mg/dL Calcium (8.5-10.1) mg/dL C-React Prot High Sens (See Note) mg/L Total Protein (PEP) 5.5 L (6.3-8.2) g/dL Albumin % (PEP) 58.4 (55.8-66.1) % Albumin (PEP) 3.2 L (3.6-5.2) g/dL Xcwze-4-Rktmdglrw 0.60 H (0.15-0.40) g/dL Qvfcw-5-Zfykufrwy (%) 11.5 H (2.9-4.9) % Oehtw-3-Saenzdymo 0.60 (0.50-1.00) g/dL Vdolj-8-Icrqsplro (%) 10.9 (7.1-11.8) % Beta Globulins (%) 11.0 (8.4-13.1) % Beta Gamma Globulin 0.60 (0.60-1.20) g/dL Gamma Globulins 0.50 L (0.60-1.60) g/dL Gamma Globulins (%) 8.2 L (11.1-18.8) % M-Xavier Not Applicable M-Xavier % Not Applicable PEP Comment (See Note) Serum Immunofixation (See Note) Complement C3 40 L (81-157) mg/dL Complement C4 1 L (13-39) mg/dL Free [place] LC, Quant 25.95 H (0.33-1.94) mg/dL Free Lambda LC, Quant 3.41 H (0.57-2.63) mg/dL Free [place]/Lambda Ratio 7.61 H (0.26-1.65) ABO/Rh Antibody Screen Intake and Output - 24 Hour Total 04/18/25 08:24 thru 04/22/25 18:40 Intake Total 1640 Output Total 4100 Balance -2460 Weight 94.4 kg Intake: IV 300 Oral 1340 Output: Urine 4100 Other: Urine Color Dark Red Urine Appearance Clear Urine Odor Normal Comment Pt had a void that wasn't documented before 3 am vitals. Pt voids ind. in the toilet. # Voids 1 Falls Risk Assessment History of Falls No History 04/18/25 13:56 Contributing Factors No Factors 04/18/25 13:56 Ambulatory Aids Independent 04/18/25 13:56 Tubes/Lines None 04/18/25 13:56 Gait Evaluation No gait disturbance 04/18/25 13:56 Cognition No cognitive impairment 04/18/25 13:56 Fall Total Score 0 04/18/25 13:56 Level of Risk Standard/Low Risk 04/18/25 13:56 Problems (Last Updated 01/31/25 @ 11:50 by Carleen Elizabeth RN) Lupus nephritis (Acute) Lupus (systemic lupus erythematosus) (Chronic) Hydronephrosis, left (Acute) Abdominal pain (Acute) On deep vein thrombosis (DVT) prophylaxis (Acute) Acute exacerbation of CHF (congestive heart failure) (Acute) Acute kidney injury superimposed on CKD (Acute) Hypertension (Chronic) Leg wound, right (Acute) Urinary tract infection (Acute) Notes 04/22/25 06:58 Nursing Notes by Kelsey Fitch Nursing Note: At 06:58 given report to Sagar at [facility]. Patient is going to [facility] for renal biopsy. Provide head to toe assessment, vs, labs, , respiratory, cardio, IV site, A/O, and medications. Sagar requested to give labetalol early before transfer to [facility]. Initialized on 04/22/25 06:58 - END OF NOTE 04/21/25 13:15 Nursing Notes by Ruthann Morales Nursing Note: Reviewed documentation by Beronica Wahl, PN student. Initialized on 04/21/25 13:15 - END OF NOTE 04/21/25 13:08 Nursing Notes by Ruthann Morales Nursing Note: At 0830 spoke with Meg in Pharmacy to review last creatinine level and mag oxide dose due. Previous level has decreased from 3.1 to 2.8 but there has not been a recent level drawn and Meg suggested a dose be drawn before the mag oxide is given. Updated Raegan, the primary nurse, with this information and returned the mag oxide to the medication dispenser until further clarification. Raegan plans to follow up with the provider. Initialized on 04/21/25 13:08 - END OF NOTE v v v v v v v v v Sending and/or Receiving Nurses: Please use comment section below to note any information pertinent to the patient hand-off not included above. Information / Comments: Report received from: Report received from Farzaneh Colón at 1803 from the OR. She is stable and vital signs are Temp. 36.5 , Pulse 74, BP 143/57, oxygen sat 91 and RR 18.
[2025-04-22] MEDS: Mometasone 220 MCG 14 DOSE INHALER 2 PUFF IH (20:03)
[2025-04-22] MEDS: Water,Injection,Bacteriostatic 30 ML VIAL (20:05)
--- NOTE | 2025-04-22 20:25 | NUR.NOTE ---
At 1016 on 04/21/2025 [facility] BP was 191/91 with cola colored urine, and patient was in pain. RN, Raegan, joleneexed MD Regina Peraza and requested pain medication. The student RN and instructor noted that they held the magnesium oxide due to kidney function and RN notified MD. At 1506, the RN notified MD that the patients lymph nodes were swollen on either side of her groin. The patient also began coughing up green sputum. RN was just notified by the date night caregiver RN that she had been having hematuria in her urine overnight. KALA Carlin, had only seen cola colored urine. Patient had been scheduled for the stenting today first thing in the morning and left to [facility] at 0737. The patient came back at 1520 from [facility] post renal biopsy and went to the bathroom and urinated bright red blood - 100mls. Nursing Note:
[2025-04-22] MEDS: Levothyroxine 150 MCG TAB PO (21:01)
[2025-04-22] MEDS: Lidocaine 5% Patch 1 PATCH TP (21:01)
[2025-04-22] MEDS: Gabapentin 300 MG CAP PO (21:01)
[2025-04-22] MEDS: Pramipexole 0.25 MG TAB PO (21:01)
[2025-04-22 21:53] LABS: Lab Add On Test DONE
[2025-04-23 04:00] VITALS: BP 151/71; PULSE 71; RESP 18; TEMP 36.8; O2SAT 95
[2025-04-23 07:10] LABS: Abs Immature Grans 0.06 10^3/uL (0.0-0.06); HCT 27.1 % (36.0-46.0); HGB 9.4 g/dL (11.2-15.7); Immature Grans % 0.6 %; MCH 27.4 pg (27.0-33.0); MCHC 34.7 % (32.0-36.0); MCV 79 fL (80-95); MPV 9.2 fL (8.0-11.0); Platelet Count 227 10^3/uL (130-400); RBC 3.43 10^6/uL (3.93-5.22); RDW 14.2 % (11.7-14.6); RDW-SD 40.3 fL; WBC 10.57 10^3/uL (4.4-10.8)
[2025-04-23 07:14] VITALS: BP 133/64; PULSE 72; RESP 18; TEMP 37; O2SAT 95
[2025-04-23 07:30] LABS: Anion Gap 12.6 mmol/L (3-11); CO2 24.4 mmol/L (21.0-32.0); Calcium 7.9 mg/dL (8.5-10.1); Chloride 98 mmol/L (98-107); Estimated GFR 11.99 (mL/min/1.73m2); Glucose 172 mg/dL (74-106); Potassium 5.2 mmol/L (3.5-5.1); Sodium 135 mmol/L (136-145)
[2025-04-23 07:37] LABS: BUN 90 mg/dL (7-18)
[2025-04-23] MEDS: Mometasone 220 MCG 14 DOSE INHALER 2 PUFF IH ×2 (08:30→22:36)
[2025-04-23] MEDS: Normal Saline 50 ML 30 ML (08:42)
[2025-04-23] MEDS: Normal Saline Flush 10 ML SYR IVP ×3 (08:43→10:14)
[2025-04-23] MEDS: Simvastatin 20 MG TAB 40 MG PO (08:47)
[2025-04-23] MEDS: Aspirin E.C. 81 MG TABEC PO (08:47)
[2025-04-23] MEDS: Labetalol 100 MG TAB 150 MG PO ×2 (08:47→20:32)
[2025-04-23] MEDS: Hydroxychloroquine 200 MG TAB PO (08:49)
[2025-04-23] MEDS: Gabapentin 300 MG CAP PO ×2 (08:49→20:29)
[2025-04-23] MEDS: Magnesium Oxide 400 MG TAB PO (08:50)
[2025-04-23] MEDS: Lidocaine Patch Removal 1 EACH TP (08:52)
--- NOTE | 2025-04-23 09:38 | W.PM.PROGNOT ---
Date of Service Date of service: 04/23/25 Time of Service: 09:38 Assessment and Plan Assessment and plan (1) GAVIN (acute kidney injury): Status: Acute Assessment and plan: No previous diagnosis of CKD was thought in the setting of decompensated heart failure with preserved ejection fraction, being diuresed with no significant improvement in kidney function. Continue strict I&O- no retention as per bladder scan Ongoing hematuria and proteinuria, decreased renal function, but left flank pain improving . Avoid drugs that can cause glomerular nephritis: acetaminophen, amlodipine, lasix and ceftriaxone stopped as per pharmacy review Cr was 2.8 from 3.1- 3.7 , 4.0 , 4.3- Delta trending down today with resolved hyperkalemia -Reconsult nephrology in AM if Cr not trending down Renal ultrasound completed on 04/21/25- reported new mild to moderate left hydronephrosis- Stent inserted on 04/[address] Hassan from urology DDX: lupus nephritis with Hx of lupus and findings of adenopathy on abd and pelvic CT pointing to flare of the condition - Initial [facility] nephrology consultation with Dr Rolle on 04/21/25-- IR renal biopsy completedon 04/22/25 - result pending UPEP and SPEP results -Free [place] LC 25.95 -Free Lambda LC 3.41 -Ratio [place]/Lambda 7.61 Rheumatolgy at [facility] with Dr Wells s/p consult with Dr. Lowe, patient's physician for Lupus: Continue methylprednisone 500 mg IV Daily until renal Bx results added labs still pending : anti-double stranded DNA titier low complement C3 -40& C4-1 , CPK (98) left flank pain improving s/p IR will proceed with stent w Dr. Hassan today due to Renal US with new left hydronephrosis No renal findings on non contrast CT except for adenopathy - that could be d/t lupus flare VS lymphoma Slow IV hydration Labs in AM (2) Lupus nephritis: Status: Acute Assessment and plan: As per point 1 Renal biopsy result pending and as per point 3 Consider ANKUSH in the setting of adenopathy findings on CT and renal biopsy results when available (3) Lupus (systemic lupus erythematosus): Status: Chronic Assessment and plan: Ongoing hydroxycloroquine as per home dose for chronic management Suspected flare as per C3, C4 , CRP and renal involvement as per above considering abdominal CT findings: multiple small superior mediastinal lymph nodes; subcarinal adenopathy measures 3.7 cm transverse; mild bilateral hilar adenopathy, mildly enlarged lymph nodes in both axilla-all appear to have increased in size compared with the previous exam. continue Methylprednisolone 500 mg IV daily X 3 days at least As per point 1 (4) Hyperkalemia: Status: Acute Assessment and plan: K 5.2 - lokelma X1 dose Resoleved CMP in AM (5) Urinary tract infection: Status: Acute Assessment and plan: Resolved completedceftriaxone 3 doses - cultures GNR and GPC < 10 K- not furhter antibiotic needed No dysuria frequency or urgency. No true CVA tenderness; left flank/ abd pain but no evidence of pyelonephrtitis on CT scan (6) Abdominal pain: Status: Acute Assessment and plan: CAT scan of the abdomen and pelvis completed on 04/18 reviewed and no etiology to explain symptoms and as per point 1 Pain has improved s/p stent and steroids No leukocytosis or fever, benign abdominal exam PRN oxycodone - seldom use now (7) Acute exacerbation of CHF (congestive heart failure): Status: Acute Assessment and plan: With preserved ejection fraction- initial working diagnostic no longer valid Echo shows EF 65% no wall motion abnormality right ventricular systolic pressure 50 mmHg No further diuresis in setting of worsening kidney function, monitor closely Cr 3.0 on admission - lowest at 2.8, then 3.7 then 4.0 and 4.3 Nephrotoxic meds reviewed and discontinued as much as possible Labs in AM Continue intake and output with daily weights Proceeding with cautious IV hydration (8) Hypertension: Status: Chronic Assessment and plan: Continue to hold of thiazide, loop diuretics, ARBs, and amlodipine on hold Will consult nephrology on renal challenge with loop diuretics in AM s/p IV albumin administration Monitor and adjust meds as needed On labetalol for BP 140-90 goal prior to renal biopsy Correct HTN urgency/ emergency as needed (9) Leg wound, right: Status: Acute Assessment and plan: continue care as per standing orders (10) Hyperlipidemia: Assessment and plan: Ongoing home statin dose (11) Microcytic anemia: Status: Acute Assessment and plan: In the setting of hematuria H&H 9.4&27.1 from 10.9&31.8 Iron studies Considering Fe supplementation CBC in AM (12) Hyperglycemia, drug-induced: Status: Acute Assessment and plan: In the setting of high dose methylprednisolone as per point 1, and prospective subsequent oral prednisone as per discussion with [facility] rheumatology Ongoing Glucose monitoring AC & HS with sensitive SSI Consider daily bolus dosing if coverage warrants it (13) On deep vein thrombosis (DVT) prophylaxis: Status: Acute Assessment and plan: Was on LMWH, renal dosing hold for Bx/ renal stent - will most likely restart in AM if no hematuria TEDs, SCD's Discussed with Dr. Farah Subjective Subjective Patient reports: no new complaints, feels better, pain is less, tolerating liquids well, tolerating a regular diet, voiding w/o difficulty (hematuria), flatus and no bowel movement; denies diarrhea, blood in stool, nausea, vomiting, shortness of breath or fever Exam Narrative Exam Narrative: 65-year-old female A&O X4, neurologically intact, unlabored breathing, unlabored breathing, clear breath sounds, telemetry SR w minimal PAC's, cardiac rate rhythm mostly regular 2+ edema to bilateral lower extremities , no CVA tenderness, lower storage and backup administrator to palpation ,abdomen is non- distended , soft , non-tender right ankle with wound with dressing w/o surrounding cellulitis - Objective Last Vital Signs Temp 37 C 04/23/25 07:14 Pulse 72 04/23/25 07:14 Resp 18 04/23/25 07:14 BP 133/64 04/23/25 07:14 Pulse Ox 95 04/23/25 07:14 Laboratory Results - last 24 hr 04/20/25 04/20/25 04/21/25 11:20 22:00 06:26 WBC RBC Hgb Hct MCV MCH MCHC RDW Plt Count MPV Immature Gran % Neutrophils % Lymphocytes % Monocytes % Eosinophils % Basophils % Nucleated RBC % Absolute Neutrophils Absolute Lymphocytes Absolute Monocytes Absolute Eosinophils Absolute Basophils Sodium Potassium Chloride Carbon Dioxide Anion Gap BUN Creatinine Est GFR (CKD-EPI 2020) Glucose Calcium Albumin % (PEP) 58.4 Albumin (PEP) 3.2 L Cgjou-2-Pebksddsm 0.60 H Uxjdd-5-Lrhbmdbsy (%) 11.5 H Pftdh-0-Wqqxmyskv 0.60 Ifyck-7-Rhqzsedhd (%) 10.9 Beta Globulins (%) 11.0 Beta Gamma Globulin 0.60 Gamma Globulins 0.50 L Gamma Globulins (%) 8.2 L M-Xavier Not Applicable M-Xavier % Not Applicable PEP Comment (See Note) Urine Eosinophils % 0 Serum Immunofixation (See Note) Complement C3 40 L Complement C4 1 L Free [place] LC, Quant 25.95 H Free Lambda LC, Quant 3.41 H Free [place]/Lambda Ratio 7.61 H Add-On Test Request DONE ABO/Rh Antibody Screen 04/22/25 04/23/25 16:20 06:50 WBC 10.57 RBC 3.43 L Hgb 9.4 L Hct 27.1 L MCV 79 L MCH 27.4 MCHC 34.7 RDW 14.2 Plt Count 227 MPV 9.2 Immature Gran % 0.6 Neutrophils % 94.7 Lymphocytes % 3.0 Monocytes % 1.6 Eosinophils % 0.0 Basophils % 0.1 Nucleated RBC % 0.0 Absolute Neutrophils 10.01 H Absolute Lymphocytes 0.32 L Absolute Monocytes 0.17 Absolute Eosinophils 0.00 Absolute Basophils 0.01 Sodium 135 L Potassium 5.2 H Chloride 98 Carbon Dioxide 24.4 Anion Gap 12.6 H BUN 90 H* Creatinine 4.0 H* Est GFR (CKD-EPI 2020) 11.99 Glucose 172 H Calcium 7.9 L Albumin % (PEP) Albumin (PEP) Uhlpo-8-Eybbfcnrb Ptztm-0-Nrcajafxj (%) Zorzu-1-Elbjveepc Pvmmj-2-Urpcqcxvp (%) Beta Globulins (%) Beta Gamma Globulin Gamma Globulins Gamma Globulins (%) M-Xavier M-Xavier % PEP Comment Urine Eosinophils % Serum Immunofixation Complement C3 Complement C4 Free [place] LC, Quant Free Lambda LC, Quant Free [place]/Lambda Ratio Add-On Test Request ABO/Rh O Positive Antibody Screen NEGATIVE PAWSS Have you Been Recently Intoxicated or Drunk Within the Last 30 days?: No Have you Ever Experienced Previous Episodes of Alcohol Withdrawal?: No Have you ever Experienced Withdrawal Seizures?: No Have you ever Experienced Delirium Tremens(DT)s?: No Have you ever undergone Alcohol Rehabilitation Treatment (i.e, inpt ot outpatient treatment programs)?: No Have you ever Experienced Blackouts?: No Have you ever Combined Alcohol with other Downers within the last 90 days?: No Have you ever Combined Alcohol with any other Substance of Abuse during the last 90 days?: No Positive Blood Alcohol level on Presentation? [PCS.BAL]: No Evidence of Increased Autonomic Activity (i.e. HR>120, tremor, sweating, agitation, nausea)?: No Result: 0 Time Spent with Patient Time Spent with Patient: >50 minutes Time was spent: preparing to see the patient(eg.review tests), obtaining and/or reviewing separately otained hiistory, ordering medications,tests, procedures, referring, communicating with other health director of primary care, indepentently interpreting results, counseling the patient, care coordination and other
--- NOTE | 2025-04-23 10:00 | CMPROGNOTE_ITS ---
Date of service: 04/23/25 Time of Service: 10:01 Care Management Progress Note Progress Note Text Progress Note Text: Francie was sitting up in bed when CM met with her. Francie had a stent placed yesterday with [facility] urology and a renal biopsy at [facility]; Per report, biopsy results anticipated in 3 - 4 days. Francie states she is feeling much better today and having less pain. She feels that both procedures yesterday went well. CM will continue to follow. Discharge Potential Discharge Needs: PCP F/U Appt Anticipated Barriers to Discharge: None Identified Patient/Family Education Needs: Review discharge instructions, discuss Ask Me Three Transportation: Private vehicle Plan: Anticipate Francie will return home once medically cleared. She may need RCT private vehicle for transport home. She will follow up with her PCP, likely urology and discharge plan of care. CM will continue to follow. Social Determinants of Health Screening Social Determinants of health last assessed in clinic: 04/23/25 Will the Patient Participate in the Screening?: Yes Do you worry about having a steady place to live?: no Problems where you live: other In the past 12 months, have you had to go without electric, gas, oil or water in your home?: no 1. Within the past 12 months, we worried whether our food would run out before we got money to buy more.: Don't know/refused 2. Within the past 12 months, the food we bought just didn't last and we didn't have money to get more.: Don't know/refused Has lack of transportation kept you from medical appointments or from doing things needed for daily living?: yes Has anyone in your life made you feel unsafe or unsupported?: no How hard is it for you to pay for the very basics like food, housing, medical care, and heating? Would you say it is:: Not hard at all Do you want help finding or keeping work or a job?: I do not need or want help If for any reason you need help with day-to-day activities such as bathing, preparing meals, shopping, managing finances, etc., do you get the help you need?: I don?t need any help How often do you feel lonely or isolated from those around you?: Sometimes Do you speak a language other than Guyanese at home?: No Does the patient want assistance with any of the above?: No Health Related Social Needs Health related social needs: inadequate housing (Z59.1), transportation insecurity (Z59.82) and feeling lonely/isolated (Z60.8) Health related social needs details: old house
[2025-04-23] MEDS: Lactated Ringers 1,000 ML 80 ML IV (10:15)
[2025-04-23] MEDS: Sodium Zirconium Cyclosilicate 10 GM PKT PO (10:52)
[2025-04-23] MEDS: Enoxaparin 30 MG/0.3 ML SYR SC (11:21)
[2025-04-23] MEDS: Normal Saline 1,000 ML 80 ML IV ×2 (11:21→23:20)
[2025-04-23 11:29] VITALS: BP 132/61; PULSE 68; RESP 18; TEMP 36.7; O2SAT 94
[2025-04-23 11:56] LABS: Iron 50 ug/dL (50-170); Total Iron Binding Capacity 214 ug/dL (250-450); Transferrin Sat 23 % (15-50)
[2025-04-23 12:09] LABS: Ferritin 437 ng/mL (8-252)
[2025-04-23] MEDS: Insulin Aspart 300 UNITS/3 ML PEN SC ×2 (12:23→17:35)
[2025-04-23 15:02] VITALS: BP 141/65; PULSE 72; RESP 16; TEMP 36.3; O2SAT 94
[2025-04-23 15:31] LABS: ALT 18 U/L (14-59); AST 17 U/L (15-37); Albumin 2.5 g/dL (3.4-5.0); Alkaline Phosphatase 226 U/L (46-116); Anion Gap 11.8 mmol/L (3-11); Bilirubin, Total 0.4 mg/dL (0.2-1.0); CO2 24.2 mmol/L (21.0-32.0); Calcium 7.6 mg/dL (8.5-10.1); Chloride 98 mmol/L (98-107); Estimated GFR 11.00 (mL/min/1.73m2); Glucose 217 mg/dL (74-106); Potassium 4.7 mmol/L (3.5-5.1); Sodium 134 mmol/L (136-145); Total Protein 5.9 g/dL (6.4-8.2)
[2025-04-23 15:33] LABS: BUN 96 mg/dL (7-18)
--- NOTE | 2025-04-23 16:42 | CHAPLAIN ---
Francie and I remembered each other from when she was here this spring with her significant other who was here for end of life care. Francie said she sent to [facility] yesterday for a biopsy and today had stent put in her kidney. She her partner , she has been working on selling his house and moving into a mobile home. It is a seven bedroom house so she has a lot of downsizing to do. She is not in touch with his children and I think she told me this spring that she not in touch with her children either. She is hoping that her house sells soon and she can make this transition and focus more on her health.
[2025-04-23 19:21] VITALS: BP 167/74; PULSE 79; RESP 18; TEMP 37; O2SAT 96
[2025-04-23] MEDS: Pramipexole 0.25 MG TAB PO (20:29)
[2025-04-23] MEDS: Protein Nutritional Supplement 16 GM 1 OUNCE PACKET PO (20:30)
[2025-04-23] MEDS: Levothyroxine 150 MCG TAB PO (20:30)
[2025-04-23] MEDS: Lidocaine 5% Patch 1 PATCH TP (20:31)
[2025-04-24 06:29] LABS: Abs Immature Grans 0.14 10^3/uL (0.0-0.06); HCT 24.6 % (36.0-46.0); HGB 8.4 g/dL (11.2-15.7); Immature Grans % 0.9 %; MCH 27.3 pg (27.0-33.0); MCHC 34.1 % (32.0-36.0); MCV 80 fL (80-95); MPV 9.6 fL (8.0-11.0); Platelet Count 243 10^3/uL (130-400); RBC 3.08 10^6/uL (3.93-5.22); RDW 14.4 % (11.7-14.6); RDW-SD 41.9 fL; WBC 16.01 10^3/uL (4.4-10.8)
[2025-04-24 07:15] VITALS: BP 153/73; PULSE 68; RESP 18; TEMP 36.5; O2SAT 97
[2025-04-24 07:29] LABS: Anion Gap 11.4 mmol/L (3-11); CO2 22.6 mmol/L (21.0-32.0); Calcium 7.3 mg/dL (8.5-10.1); Chloride 99 mmol/L (98-107); Estimated GFR 11.64 (mL/min/1.73m2); Glucose 153 mg/dL (74-106); Potassium 5.3 mmol/L (3.5-5.1); Sodium 133 mmol/L (136-145)
--- NOTE | 2025-04-24 07:32 | PGE_ITS ---
Date of Service Date of service: 04/24/25 Time of Service: 07:32 Assessment and Plan Assessment and plan (1) GAVIN (acute kidney injury): Status: Acute Assessment and plan: 04/24/25: [place] [facility] [place] hospitalist [place] Barron - No bed today - bed pending 1-2 days No previous diagnosis of CKD was thought in the setting of decompensated heart failure with preserved ejection fraction, being diuresed with no significant improvement in kidney function. Continue strict I&O- no retention as per bladder scan Ongoing hematuria and proteinuria, decreased renal function, but left flank pain improved Avoid drugs that can cause glomerular nephritis: acetaminophen, amlodipine, lasix and ceftriaxone stopped as per pharmacy review Cr was 2.8 from max 4.3 now 3.9- Monitor closely -Initial [facility] [place] consultation with Dr Rolle on 04/21/25-- IR renal biopsy completedon 04/22/25 - result pending -Reconsultation nephrology at 9AM 04/24/25- Dr. Rolle in the light of new result, clinical picture and preliminary biopsy results - Recommending transfer [place] [facility] and Hem/Onc consultation--> Need for marrow biopsy - hyperkalemia at 5.3- treat at 5.7 or symptomatic 04/24/25: Hem/Onc consultation with Dr Lucas from [facility]: DIC work-up and coags- other blood test that would be send out not recommended as most likely the isis ent will be transferred prior to results -Methylpred for 5 days recommended -Urology Consult Renal ultrasound completed on 04/21/25- reported new mild to moderate left hydronephrosis- Stent inserted on 04/[address] Hassan from urology DDX: lupus nephritis with Hx of lupus and findings of adenopathy on abd and pelvic CT pointing to flare of the condition - UPEP and SPEP results -Free [place] LC 25.95 -Free Lambda LC 3.41 -Ratio [place]/Lambda 7.61 -Rheumatolgy at [facility] consultation on 04/23/[address] Wells s/p consult with Dr. Lowe, patient's physician for Lupus: Continue methylprednisone 500 mg IV Daily until renal Bx results added labs still pending : anti-double stranded DNA titier low complement C3 -40& C4-1 , CPK (98) left flank pain improving s/p IR will proceed with stent w Dr. Hassan today due to Renal US with new left hydronephrosis No renal findings on non contrast CT except for adenopathy - that could be d/t lupus flare VS lymphoma Slow IV hydration Labs in AM (2) Lupus nephritis: Status: Acute Assessment and plan: As per point 1 Renal biopsy result pending and as per point 3 Consider ANKUSH in the setting of adenopathy findings on CT and renal biopsy results when available (3) Lupus (systemic lupus erythematosus): Status: Chronic Assessment and plan: Ongoing hydroxycloroquine as per home dose for chronic management Suspected flare as per C3, C4 , CRP and renal involvement as per above considering abdominal CT findings: multiple small superior mediastinal lymph nodes; subcarinal adenopathy measures 3.7 cm transverse; mild bilateral hilar adenopathy, mildly enlarged lymph nodes in both axilla-all appear to have increased in size compared with the previous exam. continue Methylprednisolone 500 mg IV daily X 3 days at least As per point 1 (4) Hyperkalemia: Status: Acute Assessment and plan: K 5.3 - then 4.9 [facility] (5) Urinary tract infection: Status: Acute Assessment and plan: Resolved completed ceftriaxone 3 doses - cultures GNR and GPC < 10 K- not furhter antibiotic needed hematuriai w/o dysuria frequency or urgency. left flank/ abd pain but no evidence of pyelonephrtitis on CT scan- improving s/p stent (6) Abdominal pain: Status: Acute Assessment and plan: CAT scan of the abdomen and pelvis completed on 04/18 reviewed and no etiology to explain symptoms and as per point 1 Pain has improved s/p stent and steroids No leukocytosis or fever, benign abdominal exam PRN oxycodone - no need > 24 hours - d/c (7) Acute exacerbation of CHF (congestive heart failure): Status: Acute Assessment and plan: With preserved ejection fraction- initial working diagnostic no longer valid Echo completed on admission day : EF 65% no wall motion abnormality right ventricular systolic pressure 50 mmHg No further diuresis in setting of worsening kidney function, no loop diuretic challenge as per nephrology - recommending transfer to [facility] Cr 3.0 on admission - maxed at 4.3 now 3.9 - Avoid nephrotoxic meds and drugs to avoid in LN Labs in AM Continue Strict I&O /intake and output with daily weights IV hydration stopped - (8) Hypertension: Status: Chronic Assessment and plan: Ongoing hold of thiazide, loop diuretics, ARBs, and amlodipine on hold Monitor and adjust meds as needed Continue labetalol for BP 140-90 goal prior to renal biopsy Treat HTN urgency/ emergency as needed (9) Leg wound, right: Status: Acute Assessment and plan: Care as per standing orders (10) Hyperlipidemia: Assessment and plan: Home statin dose ordered (11) Microcytic anemia: Status: Acute Assessment and plan: In the setting of hematuria Hgb 8.4 trend CBC daily Iron studies: TIBC 214, Fe 50-MVC 80 (12) Hyperglycemia, drug-induced: Status: Acute Assessment and plan: In the setting of high dose methylprednisolone as per point 1, and prospective subsequent oral prednisone as per discussion with [facility] [place]ology Ongoing Glucose monitoring AC & HS with sensitive SSI Consider daily bolus dosing if coverage / 24 hours warrants it (13) On deep vein thrombosis (DVT) prophylaxis: Status: Acute Assessment and plan: Was on LMWH, renal dosing hold for Bx/ renal stent - hematuria - anemia TEDs, SCD's Discussed with Dr. Farah Subjective Subjective Patient reports: no new complaints, feels better, pain is less, tolerating liquids well, tolerating a regular diet, voiding w/o difficulty (hematuria), flatus and no bowel movement; denies diarrhea, blood in stool, nausea, vomiting, shortness of breath or fever Exam Narrative Exam Narrative: 65-year-old female A&O X4, neurologically intact, unlabored breathing, clear upper lungs, diminished bases, telemetry SR w minimal PAC's, cardiac rate rhythm mostly regular , edema to bilateral lower extremities , no CVA tenderness,,abdomen is non- distended , soft , non-tender right ankle with wound with dressing w/o surrounding cellulitis - Objective Last Vital Signs Temp 36.5 C 04/24/25 07:15 Pulse 68 04/24/25 07:15 Resp 18 04/24/25 07:15 BP 153/73 H 04/24/25 07:15 Pulse Ox 97 04/24/25 07:15 Laboratory Results - last 24 hr 04/19/25 04/20/25 04/23/25 05:55 22:00 06:50 WBC RBC Hgb Hct MCV MCH MCHC RDW Plt Count MPV Immature Gran % Neutrophils % Lymphocytes % Monocytes % Eosinophils % Basophils % Nucleated RBC % Absolute Neutrophils Absolute Lymphocytes Absolute Monocytes Absolute Eosinophils Absolute Basophils Factor V Leiden Mutat Factor V Leiden Interp Factor V Leiden Rev By Sodium 135 L Potassium 5.2 H Chloride 98 Carbon Dioxide 24.4 Anion Gap 12.6 H BUN 90 H* Creatinine 4.0 H* Est GFR (CKD-EPI 2020) 11.99 Glucose 172 H Calcium 7.9 L Iron TIBC Transferrin % Sat Ferritin Total Bilirubin AST ALT Alkaline Phosphatase Total Protein Albumin Urine Eosinophils % 0 Anti-ds DNA IgG Ab <22.0 04/23/25 04/23/25 04/23/25 11:15 15:05 16:00 WBC RBC Hgb Hct MCV MCH MCHC RDW Plt Count MPV Immature Gran % Neutrophils % Lymphocytes % Monocytes % Eosinophils % Basophils % Nucleated RBC % Absolute Neutrophils Absolute Lymphocytes Absolute Monocytes Absolute Eosinophils Absolute Basophils Factor V Leiden Mutat Factor V Leiden Interp Factor V Leiden Rev By Sodium 134 L Cancelled Potassium 4.7 Cancelled Chloride 98 Cancelled Carbon Dioxide 24.2 Cancelled Anion Gap 11.8 H Cancelled BUN 96 H* Cancelled Creatinine 4.3 H* Cancelled Est GFR (CKD-EPI 2020) 11.00 Cancelled Glucose 217 H Cancelled Calcium 7.6 L Cancelled Iron 50 TIBC 214 L Transferrin % Sat 23 Ferritin 437 H Total Bilirubin 0.4 AST 17 ALT 18 Alkaline Phosphatase 226 H Total Protein 5.9 L Albumin 2.5 L Urine Eosinophils % Anti-ds DNA IgG Ab 04/23/25 04/24/25 Unknown 06:20 WBC 16.01 H RBC 3.08 L Hgb 8.4 L Hct 24.6 L MCV 80 MCH 27.3 MCHC 34.1 RDW 14.4 Plt Count 243 MPV 9.6 Immature Gran % 0.9 Neutrophils % 90.9 Lymphocytes % 4.1 Monocytes % 4.0 Eosinophils % 0.0 Basophils % 0.1 Nucleated RBC % 0.0 Absolute Neutrophils 14.55 H Absolute Lymphocytes 0.66 L Absolute Monocytes 0.64 Absolute Eosinophils 0.00 Absolute Basophils 0.02 Factor V Leiden Mutat Cancelled Factor V Leiden Interp Cancelled Factor V Leiden Rev By Cancelled Sodium Potassium Chloride Carbon Dioxide Anion Gap BUN Creatinine Est GFR (CKD-EPI 2020) Glucose Calcium Iron TIBC Transferrin % Sat Ferritin Total Bilirubin AST ALT Alkaline Phosphatase Total Protein Albumin Urine Eosinophils % Anti-ds DNA IgG Ab PAWSS Have you Been Recently Intoxicated or Drunk Within the Last 30 days?: No Have you Ever Experienced Previous Episodes of Alcohol Withdrawal?: No Have you ever Experienced Withdrawal Seizures?: No Have you ever Experienced Delirium Tremens(DT)s?: No Have you ever undergone Alcohol Rehabilitation Treatment (i.e, inpt ot outpatient treatment programs)?: No Have you ever Experienced Blackouts?: No Have you ever Combined Alcohol with other Downers within the last 90 days?: No Have you ever Combined Alcohol with any other Substance of Abuse during the last 90 days?: No Positive Blood Alcohol level on Presentation? [PCS.BAL]: No Evidence of Increased Autonomic Activity (i.e. HR>120, tremor, sweating, agitation, nausea)?: No Result: 0 Time Spent with Patient Time Spent with Patient: >50 minutes Time was spent: preparing to see the patient(eg.review tests), obtaining and/or reviewing separately otained hiistory, ordering medications,tests, procedures, referring, communicating with other health progressive care nurse, indepentently interpreting results, counseling the patient, care coordination and other
[2025-04-24 07:34] LABS: BUN 106 mg/dL (7-18)
[2025-04-24 07:52] VITALS: BP 151/71; PULSE 67; RESP 16; TEMP 35.8; O2SAT 98
[2025-04-24] MEDS: Mometasone 220 MCG 14 DOSE INHALER 2 PUFF IH ×2 (07:56→19:49)
[2025-04-24 07:58] LABS: Magnesium 2.8 mg/dL (1.8-2.4)
[2025-04-24] MEDS: Protein Nutritional Supplement 16 GM 1 OUNCE PACKET PO ×2 (09:11→19:53)
[2025-04-24] MEDS: Insulin Aspart 300 UNITS/3 ML PEN SC (09:11)
[2025-04-24] MEDS: Hydroxychloroquine 200 MG TAB PO (09:13)
[2025-04-24] MEDS: Labetalol 100 MG TAB 150 MG PO ×2 (09:15→19:53)
[2025-04-24] MEDS: Aspirin E.C. 81 MG TABEC PO (09:15)
[2025-04-24] MEDS: Lidocaine Patch Removal 1 EACH TP (09:18)
[2025-04-24] MEDS: Loratidine 10 MG TAB PO (09:18)
[2025-04-24] MEDS: Magnesium Oxide 400 MG TAB PO (09:18)
[2025-04-24] MEDS: Gabapentin 300 MG CAP PO ×2 (09:18→19:54)
[2025-04-24] MEDS: Simvastatin 20 MG TAB 40 MG PO (09:18)
[2025-04-24 09:41] LABS: Transferrin 156 mg/dL (201-352)
--- NOTE | 2025-04-24 11:05 | W.PM.PROGNOT ---
Date of Service Date of service: 04/24/25 Time of Service: 11:05 Assessment and Plan Assessment and plan (1) Hydronephrosis, left: Status: Acute Assessment and plan: I am pleased that her discomfort has improved with the stent placement, but her renal function is still problematic. I believe everything hinges on her kidney biopsy results and the recommendations of our nephrology colleagues. Her indwelling stent can remain for up to 3 months before we might need to change it or remove it. If she will ultimately need urology follow-up once all of her other issues have resolved. Subjective Subjective Interval history since last seen: The patient tells me that she has had no abdominal or flank pain since her stent was placed. Unfortunately, her renal function continues to worsen. She continues to have gross hematuria. Exam Narrative Exam Narrative: She does not appear septic or toxic Her abdomen is soft with no peritoneal signs Her vital signs are documented elsewhere She is awake and alert [facility] Her renal biopsy is still pending Objective Last Vital Signs Temp 35.8 C L 04/24/25 07:52 Pulse 67 04/24/25 07:52 Resp 16 04/24/25 07:52 BP 151/71 H 04/24/25 07:52 Pulse Ox 98 04/24/25 07:52 Laboratory Results - last 24 hr 04/19/25 04/23/25 04/23/25 05:55 11:15 15:05 WBC RBC Hgb Hct MCV MCH MCHC RDW Plt Count MPV Immature Gran % Neutrophils % Lymphocytes % Monocytes % Eosinophils % Basophils % Nucleated RBC % Absolute Neutrophils Absolute Lymphocytes Absolute Monocytes Absolute Eosinophils Absolute Basophils Factor V Leiden Mutat Factor V Leiden Interp Factor V Leiden Rev By Sodium 134 L Potassium 4.7 Chloride 98 Carbon Dioxide 24.2 Anion Gap 11.8 H BUN 96 H* Creatinine 4.3 H* Est GFR (CKD-EPI 2020) 11.00 Glucose 217 H Calcium 7.6 L Phosphorus Magnesium Iron 50 TIBC 214 L Transferrin % Sat 23 Ferritin 437 H Total Bilirubin 0.4 AST 17 ALT 18 Alkaline Phosphatase 226 H Total Protein 5.9 L Albumin 2.5 L Anti-ds DNA IgG Ab <22.0 04/23/25 04/24/25 04/24/25 Unknown 06:20 06:55 WBC 16.01 H RBC 3.08 L Hgb 8.4 L Hct 24.6 L MCV 80 MCH 27.3 MCHC 34.1 RDW 14.4 Plt Count 243 MPV 9.6 Immature Gran % 0.9 Neutrophils % 90.9 Lymphocytes % 4.1 Monocytes % 4.0 Eosinophils % 0.0 Basophils % 0.1 Nucleated RBC % 0.0 Absolute Neutrophils 14.55 H Absolute Lymphocytes 0.66 L Absolute Monocytes 0.64 Absolute Eosinophils 0.00 Absolute Basophils 0.02 Factor V Leiden Mutat Cancelled Factor V Leiden Interp Cancelled Factor V Leiden Rev By Cancelled Sodium 133 L Potassium 5.3 H Chloride 99 Carbon Dioxide 22.6 Anion Gap 11.4 H BUN 106 H* Creatinine 4.1 H* Est GFR (CKD-EPI 2020) 11.64 Glucose 153 H Calcium 7.3 L Phosphorus 7.6 H Magnesium 2.8 H Iron TIBC Transferrin % Sat Ferritin Total Bilirubin AST ALT Alkaline Phosphatase Total Protein Albumin Anti-ds DNA IgG Ab PAWSS Have you Been Recently Intoxicated or Drunk Within the Last 30 days?: No Have you Ever Experienced Previous Episodes of Alcohol Withdrawal?: No Have you ever Experienced Withdrawal Seizures?: No Have you ever Experienced Delirium Tremens(DT)s?: No Have you ever undergone Alcohol Rehabilitation Treatment (i.e, inpt ot outpatient treatment programs)?: No Have you ever Experienced Blackouts?: No Have you ever Combined Alcohol with other Downers within the last 90 days?: No Have you ever Combined Alcohol with any other Substance of Abuse during the last 90 days?: No Positive Blood Alcohol level on Presentation? [PCS.BAL]: No Evidence of Increased Autonomic Activity (i.e. HR>120, tremor, sweating, agitation, nausea)?: No Result: 0 Time Spent with Patient Time Spent with Patient: <25 minutes Time was spent: preparing to see the patient(eg.review tests), obtaining and/or reviewing separately otained hiistory and indepentently interpreting results
[2025-04-24 12:15] VITALS: BP 148/72; PULSE 67; RESP 16; TEMP 36.3; O2SAT 98
--- NOTE | 2025-04-24 12:19 | PDOC.CMPRO ---
Date of service: 04/24/25 Time of Service: 12:24 Care Management Progress Note Progress Note Text Progress Note Text: Grecia was lying in bed when CM met with her. She shares that her friend is checking on her pets daily. Per report, Francie is pending a transfer to a tertiary care facility for a higher level of care. Renal biopsy results are pending. CM will continue to follow. Discharge Potential Discharge Needs: PCP F/U Appt Anticipated Barriers to Discharge: None Identified Patient/Family Education Needs: Review discharge instructions, discuss Ask Me Three Transportation: Private vehicle Plan: Anticipate Francie will return home once medically cleared vs transferring to a tertiary care facility. She may need [facility] private vehicle for transport home. She will follow up with her PCP, likely urology and discharge plan of care. CM will continue to follow. Social Determinants of Health Screening Social Determinants of health last assessed in clinic: 04/24/25 Will the Patient Participate in the Screening?: Yes Do you worry about having a steady place to live?: no Problems where you live: other In the past 12 months, have you had to go without electric, gas, oil or water in your home?: no 1. Within the past 12 months, we worried whether our food would run out before we got money to buy more.: Never true 2. Within the past 12 months, the food we bought just didn't last and we didn't have money to get more.: Never true Has lack of transportation kept you from medical appointments or from doing things needed for daily living?: yes Has anyone in your life made you feel unsafe or unsupported?: no How hard is it for you to pay for the very basics like food, housing, medical care, and heating? Would you say it is:: Not hard at all Do you want help finding or keeping work or a job?: I do not need or want help If for any reason you need help with day-to-day activities such as bathing, preparing meals, shopping, managing finances, etc., do you get the help you need?: I don?t need any help How often do you feel lonely or isolated from those around you?: Sometimes Do you speak a language other than Sinhala at home?: No Does the patient want assistance with any of the above?: No Health Related Social Needs Health related social needs: inadequate housing (Z59.1), transportation insecurity (Z59.82) and feeling lonely/isolated (Z60.8) Health related social needs details: old house
[2025-04-24 12:23] LABS: INR 1.1 (0.9-1.1); PTT Activated 24.6 sec (20.6-30.2); Prothrombin Time 10.7 sec (9.1-11.1)
[2025-04-24 12:49] LABS: D-Dimer 3992 ng/mlFEU (<500)
[2025-04-24 15:19] LABS: ALT 22 U/L (14-59); AST 22 U/L (15-37); Albumin 2.8 g/dL (3.4-5.0); Alkaline Phosphatase 236 U/L (46-116); Anion Gap 13.2 mmol/L (3-11); Bilirubin, Total 0.4 mg/dL (0.2-1.0); CO2 22.8 mmol/L (21.0-32.0); Calcium 7.4 mg/dL (8.5-10.1); Chloride 99 mmol/L (98-107); Estimated GFR 12.36 (mL/min/1.73m2); Glucose 155 mg/dL (74-106); Potassium 4.9 mmol/L (3.5-5.1); Sodium 135 mmol/L (136-145); Total Protein 6.2 g/dL (6.4-8.2)
[2025-04-24 15:22] LABS: BUN 107 mg/dL (7-18)
[2025-04-24 18:53] LABS: Fibrinogen (Stat) (Littleton) 481 mg/dL (208-434)
[2025-04-24 19:44] VITALS: BP 158/68; PULSE 71; RESP 18; TEMP 36.4; O2SAT 96
[2025-04-24] MEDS: Lidocaine 5% Patch 1 PATCH TP (19:53)
[2025-04-24] MEDS: Levothyroxine 150 MCG TAB PO (19:54)
[2025-04-24] MEDS: Pramipexole 0.25 MG TAB PO (19:54)
[2025-04-24 23:15] VITALS: BP 134/65; PULSE 65; RESP 18; TEMP 36.4; O2SAT 96
[2025-04-25 02:46] VITALS: BP 168/73; PULSE 66; RESP 20; TEMP 36.4; O2SAT 98
[2025-04-25 06:56] LABS: Abs Immature Grans 0.27 10^3/uL (0.0-0.06); HCT 25.1 % (36.0-46.0); HGB 8.0 g/dL (11.2-15.7); Immature Grans % 2.0 %; MCH 26.1 pg (27.0-33.0); MCHC 31.9 % (32.0-36.0); MCV 82 fL (80-95); MPV 9.2 fL (8.0-11.0); Platelet Count 307 10^3/uL (130-400); RBC 3.07 10^6/uL (3.93-5.22); RDW 14.3 % (11.7-14.6); RDW-SD 42.6 fL; WBC 13.69 10^3/uL (4.4-10.8)
[2025-04-25 07:28] VITALS: BP 158/74; PULSE 69; RESP 16; TEMP 36.3; O2SAT 98
[2025-04-25 07:38] LABS: ALT 26 U/L (14-59); AST 21 U/L (15-37); Albumin 2.9 g/dL (3.4-5.0); Alkaline Phosphatase 213 U/L (46-116); Anion Gap 14.1 mmol/L (3-11); Bilirubin, Total 0.4 mg/dL (0.2-1.0); CO2 22.9 mmol/L (21.0-32.0); Calcium 7.3 mg/dL (8.5-10.1); Chloride 97 mmol/L (98-107); Estimated GFR 12.75 (mL/min/1.73m2); Glucose 145 mg/dL (74-106); Potassium 5.2 mmol/L (3.5-5.1); Sodium 134 mmol/L (136-145); Total Protein 6.2 g/dL (6.4-8.2)
[2025-04-25 07:41] LABS: BUN 122 mg/dL (7-18)
[2025-04-25] MEDS: Simvastatin 20 MG TAB 40 MG PO (08:51)
[2025-04-25] MEDS: Labetalol 100 MG TAB 150 MG PO (08:52)
[2025-04-25] MEDS: Gabapentin 300 MG CAP PO (08:52)
[2025-04-25] MEDS: Lidocaine Patch Removal 1 EACH TP (08:53)
[2025-04-25] MEDS: Magnesium Oxide 400 MG TAB PO (08:53)
[2025-04-25] MEDS: Hydroxychloroquine 200 MG TAB PO (08:53)
[2025-04-25] MEDS: Aspirin E.C. 81 MG TABEC PO (08:54)
[2025-04-25] MEDS: Mometasone 220 MCG 14 DOSE INHALER 2 PUFF IH (09:02)
[2025-04-25 11:03] VITALS: BP 143/65; PULSE 65; TEMP 36.6; O2SAT 97
--- NOTE | 2025-04-25 12:11 | CMPROGNOTE_ITS ---
Date of service: 04/25/25 Time of Service: 12:11 Care Management Progress Note Progress Note Text Progress Note Text: Francie was sitting up in bed and awake when CM met with her. She shares she is feeling great today. Per report, she has been accepted to [facility] [place] and is pending a bed. CM will continue to follow. Discharge Potential Discharge Needs: PCP F/U Appt Anticipated Barriers to Discharge: None Identified Patient/Family Education Needs: Review discharge instructions, discuss Ask Me Three Plan: Anticipate Francie will return home once medically cleared vs transferring to a tertiary care facility. She may need [facility] private vehicle for transport home. She will follow up with her PCP, likely urology and discharge plan of care. CM will continue to follow. Social Determinants of Health Screening Social Determinants of health last assessed in clinic: 04/25/25 Will the Patient Participate in the Screening?: Yes Do you worry about having a steady place to live?: no Problems where you live: other In the past 12 months, have you had to go without electric, gas, oil or water in your home?: no 1. Within the past 12 months, we worried whether our food would run out before we got money to buy more.: Don't know/refused 2. Within the past 12 months, the food we bought just didn't last and we didn't have money to get more.: Don't know/refused Has lack of transportation kept you from medical appointments or from doing things needed for daily living?: yes Has anyone in your life made you feel unsafe or unsupported?: no How hard is it for you to pay for the very basics like food, housing, medical care, and heating? Would you say it is:: Not hard at all Do you want help finding or keeping work or a job?: I do not need or want help If for any reason you need help with day-to-day activities such as bathing, preparing meals, shopping, managing finances, etc., do you get the help you need?: I don?t need any help How often do you feel lonely or isolated from those around you?: Sometimes Do you speak a language other than Indonesian at home?: No Does the patient want assistance with any of the above?: No Health Related Social Needs Health related social needs: inadequate housing (Z59.1), transportation insecurity (Z59.82) and feeling lonely/isolated (Z60.8) Health related social needs details: old house
[2025-04-25] MEDS: Insulin Aspart 300 UNITS/3 ML PEN SC (13:53)
[2025-04-25 15:16] VITALS: BP 156/75; PULSE 65; RESP 16; TEMP 36.6; O2SAT 97
--- NOTE | 2025-04-25 16:44 | DSE_ITS ---
Date of service: 04/25/25 Time of Service: 16:44 DS: Diagnosis Discharge Diagnosis (1) GAVIN (acute kidney injury): Status: Acute (2) Lupus nephritis: Status: Acute (3) Lupus (systemic lupus erythematosus): Status: Chronic (4) Hyperkalemia: Status: Acute (5) Urinary tract infection: Status: Acute (6) Abdominal pain: Status: Acute (7) Acute exacerbation of CHF (congestive heart failure): Status: Acute (8) Hypertension: Status: Chronic (9) Leg wound, right: Status: Acute (10) Microcytic anemia: Status: Acute (11) Hyperglycemia, drug-induced: Status: Acute (12) On deep vein thrombosis (DVT) prophylaxis: Status: Acute Discharge Plan Disposition Patient Disposition: Transfer-Acute Inpatient Care Specific Acute In Facility: [facility] Condition: Poor Discharge Details Reason For Visit: CHF exacerbation, GAVIN Admit Date/Time: 04/18/25 11:45 Admit Provider: Kolby Montejo Attending Provider: Kolby Montejo Primary Care Provider: Randy Mauricio Hospital Course Hospital Course: Reason for Transfer: Acute CHF exacerbation with GAVIN, complicated by left hydronephrosis, requiring higher-level care for monitoring, diuresis, and multidisciplinary management. 65-year-old female with a history of hypertension, hyperlipidemia, lupus, amyloidosis, antiphospholipid syndrome (off warfarin due to pericardial effusion), CKD, and a chronic right ankle wound presents with a 2-week history of progressive shortness of breath, orthopnea, and bilateral lower extremity edema. She also developed gross hematuria and worsening renal function. She was recently evaluated in the ED on 04/15/25 for similar symptoms and discharged on oral furosemide. On this admission, she was found to have acute CHF exacerbation (BNP 7717, EF 65%, moderate LA dilation, mild MR/TR, RVSP 50 mmHg), GAVIN on CKD (Cr 4.1?4.3, BUN 106?122, eGFR ~11?12), and left hydronephrosis managed with a ureteral stent. The stent relieved flank/abdominal pain, but renal function continues to decline. Renal biopsy is pending to guide further management. Vital signs on most recent assessment: Temp 35.8?37.2?C, BP 151?221/71?92 mmHg, HR 67?68 bpm, RR 15?16, SpO2 92?98%. Labs: Notable for worsening renal function (BUN 106?122, Cr 4.1?4.3, eGFR 11?12), anemia (Hgb 8.0?8.4), electrolyte abnormalities (Na 133?134, K 5.2?5.3), hypoalbuminemia (2.5?2.9), elevated NT-proBNP (7717), and mild elevation in Alk Phos. Imaging: * POCUS: Extensive B-lines * CT Chest/Abdomen/Pelvis: Pulmonary edema, small pleural effusions, mediastinal/hilar/retroperitoneal adenopathy suspicious for lymphoma, hepatosplenomegaly * Echo (04/18/25): EF 65%, normal LV/RV function, moderate LA dilation, mild MR/TR, RVSP 50 mmHg * Urology: Left ureteral stent in place Hospital Course / Plan: Patient requires aggressive IV diuresis with close monitoring of electrolytes and renal function. Blood pressure management, ongoing monitoring of anemia and lab abnormalities, and multidisciplinary coordination with nephrology and urology are essential. Follow-up for renal biopsy results and urology evaluation for stent management is pending. Hematology/oncology input may be indicated for adenopathy and hepatosplenomegaly. Home Meds and New Rx's Prescriptions: Continued ibuprofen 600 mg tablet 600 mg PO Q8H PRN (Reason: pain) Qty: 60 3RF albuterol sulfate [ProAir HFA] 90 mcg/actuation HFA aerosol inhaler 2 puff Inhalation Q6H PRN (Reason: shortness of breath) hydroxychloroquine 200 MG tablet 200 mg PO DAILY Qty: 30 levothyroxine 125 MCG tablet 150 mcg PO HS amlodipine 2.5 mg tablet 2.5 mg PO DAILY simvastatin 20 mg tablet 40 mg PO DAILY calcium carbonate [Oyster Shell Calcium] 500 mg calcium (1,250 mg) Tablet 500 mg PO DAILY losartan-hydrochlorothiazide 100-12.5 mg Tablet 1 tab PO DAILY acetaminophen 500 mg tablet 1,000 mg PO Q8H PRN (Reason: pain) Qty: 90 3RF gabapentin 400 mg capsule 400 mg PO BID Patient Comments: TAKE ONE CAPSULE BY MOUTH TWICE A DAY Allergy Relief (loratadine) 10 mg capsule 10 mg PO DAILY pramipexole 0.125 mg tablet 0.25 mg PO QPM Patient Comments: TAKE TWO TABLETS BY MOUTH EVERY EVENING AT BEDTIME FOR RESTLESS LEGS fluticasone propionate 110 mcg/actuation HFA aerosol inhaler 2 inh inhalation BID aspirin 81 mg Tablet,Delayed Release (Dr/Ec) 81 mg PO DAILY furosemide [Lasix] 20 mg tablet 20 mg PO BID Qty: 10 0RF magnesium oxide 500 mg capsule 500 mg PO DAILY Qty: 20 0RF Discharge Instructions Activity:: Activity as Tolerated Equipment/Supplies:: No Equipment Needed Diet:: As Tolerated Discharge Orders Discharge Orders: Discharge Order (Routine); Ordered 04/25/25 Ordered By: Savanna Lucio DS: Summary Time Spent with Patient providing and/or coordinating discharge services: Greater than 30 minutes Status at Discharge Functional status at discharge: independent ambulation Overall status at discharge: patient is progressing back to baseline Mental Status: mental status grossly normal Speech and Movement: speech and movement normal Mood: congruent mood Affect: normal affect Quality:SDOH Health Related Social Needs: Health related social needs inadequate housing transpo insecurity lonely/isolated Health related social needs details old house Health related social needs details: old house Exam Const General: cooperative, healthy appearing, comfortable and no acute distress Orientation: alert, awake and oriented x3 HENMT Head: normal to inspection, normocephalic and atraumatic Mouth: oral mucosae normal Resp Effort & Inspection: normal respiratory effort Auscultation: clear to auscultation bilaterally Cardio Rate: regular rate Rhythm: regular rhythm GI Inspection: obesity Palpation: soft Auscultation: normal bowel sounds Skin General skin exam: no rashes or lesions noted Neuro General: patient alert, patient awake and patient oriented x3 Extrem General: normal to inspection and full ROM Psych Mental Status: mental status grossly normal Speech and Movement: speech and movement normal Mood: congruent mood Affect: normal affect DS: Data Vitals/I&O Vitals and I&O: Vital Signs Temperature 36.6 C 04/25/25 15:16 Temperature Source Temporal Artery Scan 04/25/25 15:16 Pulse 65 04/25/25 15:16 Pulse Rhythm Regular 04/18/25 13:56 Pulse 67 04/18/25 12:42 Respiratory Rate 16 04/25/25 15:16 Respiratory Effort Normal, Non-Labored 04/18/25 13:56 Respiratory Depth Normal 04/18/25 13:56 Respiratory Pattern Normal 04/18/25 13:56 Blood Pressure 156/75 H 04/25/25 15:16 Blood Pressure Mean 102 04/25/25 15:16 Pulse Oximetry 97 04/25/25 15:16 Oxygen Delivery Method Room Air 04/25/25 15:16 Oxygen Flow Rate 0 04/25/25 15:16 Pain Level 2 04/25/25 07:28 Comment PT sleeping will get when awake. 04/23/25 23:20 Intake & Output 04/24/25 04/25/25 04/25/25 23:59 11:59 23:59 Intake Total 720 / 1656.000 108 / 328 220 / 328 Output Total 950 / 1800 650 / 1100 450 / 1100 Balance -230 / -144.000 -542 / -772 -230 / -772 Weight 98.3 kg Intake: IV 108 / 108 Oral 720 / 720 220 / 220 Output: Urine 950 / 1800 650 / 1100 450 / 1100 Other: Urine Color Dark Red Dark Red Dark Red Urine Appearance Hematuria Stones/Calculi Urine Odor Normal Normal Stool Size Moderate Small Stool Characteristics Liquid Soft Data Completed and Pending Labs on day of discharge: Labs from last 24 hours 04/25/25 04/24/25 06:42 11:25 WBC 13.69 H RBC 3.07 L Hgb 8.0 L Hct 25.1 L MCV 82 MCH 26.1 L MCHC 31.9 L D RDW 14.3 Plt Count 307 MPV 9.2 Immature Gran % 2.0 Neutrophils % 89.6 Lymphocytes % 4.2 Monocytes % 4.0 Eosinophils % 0.1 Basophils % 0.1 Nucleated RBC % 0.0 Absolute Neutrophils 12.27 H Absolute Lymphocytes 0.57 L Absolute Monocytes 0.55 Absolute Eosinophils 0.01 Absolute Basophils 0.01 Fibrinogen 481 H Sodium 134 L Potassium 5.2 H Chloride 97 L Carbon Dioxide 22.9 Anion Gap 14.1 H BUN 122 H* Creatinine 3.8 H* Est GFR (CKD-EPI 2020) 12.75 Glucose 145 H Calcium 7.3 L Total Bilirubin 0.4 AST 21 ALT 26 Alkaline Phosphatase 213 H Total Protein 6.2 L Albumin 2.9 L PFSH All Active Problems (Updated 04/25/25 @ 17:41 by Savanna Lucio NP) Microcytic anemia (Acute) Hyperglycemia, drug-induced (Acute) Hyperkalemia (Acute) Hypokalemia (Acute) Lupus nephritis (Acute) Lupus (systemic lupus erythematosus) (Chronic) Hydronephrosis, left (Acute) Abdominal pain (Acute) On deep vein thrombosis (DVT) prophylaxis (Acute) Acute exacerbation of CHF (congestive heart failure) (Acute) Acute kidney injury superimposed on CKD (Acute) Hypertension (Chronic) Hematuria (Acute) GAVIN (acute kidney injury) (Acute) Mild peripheral edema (Acute) CHF (congestive heart failure) (Chronic) Cutaneous amyloidosis (Acute) Leg wound, right (Acute) Chronic wound (Acute) Left knee DJD (Chronic) Depo-medrol injection: 02/27/25; 11/28/2024; 08/29/24; 05/30/2024; 02/26/2024; 11/27/2023; 08/17/23 Headache (Acute) Urinary tract infection (Acute) Colovaginal fistula (Acute) Diverticulitis of sigmoid colon (Acute) Amyloidosis (Chronic) Herniated nucleus pulposus, lumbar (Chronic) Antiphospholipid syndrome (Chronic) Trigger thumb of right hand (Acute) Trigger thumb of left hand (Chronic) Nasal vestibulitis (Acute 11/02/17) Nasal congestion (Acute 06/19/14) Deviated nasal septum (Acute 06/19/14) Cephalgia (Acute 11/20/14) Constipation (Chronic) as above HTN (hypertension) (Chronic) GERD (gastroesophageal reflux disease) (Chronic) stable Lupus (Chronic) Medical History (Updated 04/25/25 @ 17:41 by Savanna Lucio NP) Primary localized cutaneous amyloidosis Cellulitis of right lower limb Lymphocytopenia Normal colonoscopy [place] 11/13/[address] Natalya Styles at [facility], severe diverticular dz, repeat 10 years. mg Hypocalcemia Asthma Allergic rhinitis Abnormal mammogram of right breast Degenerative joint disease Hyperlipidemia Pericarditis Eczema Chest wall pain Insomnia Sciatica, left side Surgical History 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) History of bone marrow biopsy S/P thyroidectomy H/O: hysterectomy Tonsillectomy Social History Smoking/Tobacco Use Status: Former Tobacco Use Quit Date: 08/14/99 Smoking risk assessment performed?: Yes Alcohol Intake: current Alcohol Intake frequency: a few times a week Alcohol type: beer and wine Drug use: Never Substance use type: does not use Housing: house Current gender identity: female Do you feel safe at home: Yes Do you feel safe in your relationship?: Yes Time Spent with Patient Time Spent with Patient: 45-69 minutes Time was spent: preparing to see the patient(eg.review tests), ordering medications,tests, procedures, referring, communicating with other health health care specialist, indepentently interpreting results, counseling the patient and care coordination
--- NOTE | 2025-04-25 18:26 | NUR.NOTE ---
Nursing Note: Report given to KALA Vargas, at [facility] at this time
== END 2025-04-25 19:07 | disposition short-term general hospital (02) | DRG 659 ==
LOC: ER 08:26 → MS 13:53
PROVIDERS: Family Medicine; Nurse Practitioner Acute Care; Urology; Admitting Provider Family Medicine; Emergency Provider Nurse Practitioner Family; PCP Student in an Organized Health Care Education/Training Program; Responsible Provider Nurse Practitioner Family; Visit Provider Family Medicine
PROC: BT1FZZZ Fluoroscopy of Left Kidney, Ureter and Bladder (ICD-10-PCS; CPT 74450; principal; 2025-04-22 17:30)
DX: N17.9 Acute kidney failure, unspecified (principal); I50.33 Acute on chronic diastolic (congestive) heart failure; D68.61 Antiphospholipid syndrome; E85.4 Organ-limited amyloidosis; N30.01 Acute cystitis with hematuria; L97.319 Non-pressure chronic ulcer of right ankle with unspecified severity; M32.14 Glomerular disease in systemic lupus erythematosus; I11.0 Hypertensive heart disease with heart failure; J45.909 Unspecified asthma, uncomplicated; E89.0 Postprocedural hypothyroidism; D50.9 Iron deficiency anemia, unspecified; E87.5 Hyperkalemia; L99 Other disorders of skin and subcutaneous tissue in diseases classified elsewhere; N13.30 Unspecified hydronephrosis; M17.12 Unilateral primary osteoarthritis, left knee; M51.26 Other intervertebral disc displacement, lumbar region; K59.00 Constipation, unspecified; K21.9 Gastro-esophageal reflux disease without esophagitis; E78.5 Hyperlipidemia, unspecified; G47.00 Insomnia, unspecified; M54.32 Sciatica, left side; R59.1 Generalized enlarged lymph nodes; Z96.651 Presence of right artificial knee joint; R73.9 Hyperglycemia, unspecified; T38.0X5A Adverse effect of glucocorticoids and synthetic analogues, initial encounter
CPT/HCPCS: 52332; 00123; 36415; 71250; 76604; 76770; 80048; 80053; 80307; 82550; 84156; 84166; 85384; 85652; 86141; 86215; 86335; 86850; 86900; 86901; 89051; 93005; 93306; 94640; 96365; 96375; 99222; 99231; 99285; 71046; 74176; 74420; 81003; 81015; 82565; 82728; 83540; 83550; 83735; 83880; 83883; 84100; 84165; 84439; 84443; 84466; 84484; 85025; 85379; 85610; 85730; 86140; 86160; 86225; 86320; 87086; 93010; 93970; 94664; 94760; 99223; 99232; 99233; 99239; A0425; A0428; J0131; J0696; J1100; J1650; J1815; J1938; J2003; J2405; J2704; J2919; J3490; J7620; Q9967

== ENCOUNTER → 2025-04-21 15:37 | Outpatient (BNVA) | payer MEDICARE, MEDICAID, SELFPAY | PROVIDERS: PCP Student in an Organized Health Care Education/Training Program; Referring Provider Student in an Organized Health Care Education/Training Program; Visit Provider Urology ==

== ENCOUNTER 2025-05-15 05:36 | Inpatient (IN) | payer MEDICARE, MEDICAID, SELFPAY ==
[2025-05-15] VITALS (72 sets, daily range): BP systolic 100–199; BP diastolic 31–79; PULSE 58–92; RESP 14–35; TEMP 37.3–37.7; O2SAT 72–99
--- NOTE | 2025-05-15 05:45 | RT.EKG_ITS ---
APPROVED REPORT Exam: Resting ECG Reason for Exam: sob Patient Location: E HR:79 bpm ECG Measurements Heart Rate 79 AXIS OR 133 P 56 QRSd 95 QRS 0 QT 449 T -4 QTc 514 Conclusion Sinus rhythm...normal P axis, V-rate 60- 99 Consider anterior infarct...Q >30mS in V2-V5 Prolonged QT interval...QTc >500mS Other than prolong QT no significant change in EKG compared to 04/18/2025.
--- NOTE | 2025-05-15 05:45 | W.ED.GENAD ---
Discharge Plan Discharge Details Chief Complaint: GenMedical Primary Care Provider: Randy Mauricio ED Provider: Gregg Velásquez [place] Meds and New Rx's Prescriptions: No Action ibuprofen 600 mg tablet 600 mg PO Q8H PRN (Reason: pain) Qty: 60 3RF albuterol sulfate [ProAir HFA] 90 mcg/actuation HFA aerosol inhaler 2 puff Inhalation Q6H PRN (Reason: shortness of breath) hydroxychloroquine 200 MG tablet 200 mg PO DAILY Qty: 30 levothyroxine 125 MCG tablet 150 mcg PO HS amlodipine 2.5 mg tablet 2.5 mg PO DAILY simvastatin 20 mg tablet 40 mg PO DAILY calcium carbonate [Oyster Shell Calcium] 500 mg calcium (1,250 mg) Tablet 500 mg PO DAILY losartan-hydrochlorothiazide 100-12.5 mg Tablet 1 tab PO DAILY acetaminophen 500 mg tablet 1,000 mg PO Q8H PRN (Reason: pain) Qty: 90 3RF gabapentin 400 mg capsule 400 mg PO BID Patient Comments: TAKE ONE CAPSULE BY MOUTH TWICE A DAY Allergy Relief (loratadine) 10 mg capsule 10 mg PO DAILY pramipexole 0.125 mg tablet 0.25 mg PO QPM Patient Comments: TAKE TWO TABLETS BY MOUTH EVERY EVENING AT BEDTIME FOR RESTLESS LEGS fluticasone propionate 110 mcg/actuation HFA aerosol inhaler 2 inh inhalation BID aspirin 81 mg Tablet,Delayed Release (Dr/Ec) 81 mg PO DAILY furosemide [Lasix] 20 mg tablet 20 mg PO BID Qty: 10 0RF magnesium oxide 500 mg capsule 500 mg PO DAILY Qty: 20 0RF prednisone 20 mg tablet 40 mg PO DAILY Patient Comments: TAKE TWO TABLETS BY MOUTH EVERY DAY FOR 30 DAYS sulfamethoxazole-trimethoprim 800-160 mg tablet 1 tab PO .COMPLEX Patient Comments: TAKE 1 TABLET BY MOUTH THREE TIMES WEEKLY ON MONDAY, MONDAY, AND MONDAY FOR 30 DAYS Rx Instructions: 1 tab orally monday, monday and monday; labetalol 100 mg tablet 100 mg PO DAILY cholecalciferol (vitamin D3) 1,250 mcg (50,000 unit) capsule 1,250 mcg PO .COMPLEX Patient Comments: TAKE ONE CAPSULE BY MOUTH THREE TIMES WEEKLY FOR 5 WEEKS Rx Instructions: 1,250 mcg orally 3 times a week; HPI General Mode of arrival: wheelchair. Date/Time Provider Initiated Documentation: 05/15/25 05:39. Limitations to Documentation: no limitations. Information obtained by: patient, RN notes reviewed and old records reviewed. HPI Narrative: Patient presents to ED due to right lower extremity pain. She has had bilateral lower extremity edema for weeks. She had been admitted to this hospital from the to the and transferred to [facility] where she was admitted until the . She has a history of amyloidosis. She had worsening renal function and was treated with high-dose methylprednisolone pending renal biopsy results. She was discharged on oral prednisone. She reports doing relatively well but woke up early this morning with severe right leg pain from the knee to the ankle. She denies fever but has had chills. She had not had pain in her leg despite all the edema until this morning. She does have a history of antiphospholipid syndrome and has had DVT in the past. Currently not anticoagulated because of a recent history of pericarditis. She denies any type of chest pain or change in breathing. Related Data Home Medications ?Medication ?Instructions ?Recorded ?Confirmed hydroxychloroquine 200 mg tablet 200 mg PO DAILY #30 tab-caps 11/16/16 05/15/25 levothyroxine 125 mcg tablet 150 mcg PO HS 05/25/17 05/15/25 albuterol sulfate 90 mcg/actuation 2 puff inhalation Q6H PRN 10/04/18 05/15/25 aerosol inhaler (ProAir HFA) shortness of breath calcium carbonate (Oyster Shell 500 mg PO DAILY 07/05/19 05/15/25 Calcium) losartan 100 1 tab PO DAILY 07/05/19 05/15/25 mg-hydrochlorothiazide 12.5 mg tablet acetaminophen 500 mg tablet 1,000 mg (2 x 500 mg) PO Q8H PRN 07/17/19 05/15/25 pain #90 tabs aspirin 81 mg tablet,delayed 81 mg PO DAILY 05/08/20 05/15/25 release ibuprofen 600 mg tablet 600 mg PO Q8H PRN pain #60 tabs 08/17/23 05/15/25 gabapentin 400 mg capsule 400 mg PO BID 05/20/24 05/15/25 amlodipine 2.5 mg tablet 2.5 mg PO DAILY 01/31/25 05/15/25 simvastatin 20 mg tablet 40 mg PO DAILY 01/31/25 05/15/25 furosemide 20 mg tablet (Lasix) 20 mg PO BID #10 tabs 04/13/25 05/15/25 magnesium oxide 500 mg capsule 500 mg PO DAILY #20 caps 04/13/25 05/15/25 fluticasone propionate 110 2 inh inhalation BID 04/18/25 05/15/25 mcg/actuation HFA aerosol inhaler loratadine 10 mg capsule (Allergy 10 mg PO DAILY 04/18/25 05/15/25 Relief (loratadine)) pramipexole 0.125 mg tablet 0.25 mg PO QPM 04/18/25 05/15/25 cholecalciferol (vitamin D3) 1,250 1,250 mcg PO .COMPLEX 05/15/25 05/15/25 mcg (50,000 unit) capsule labetalol 100 mg tablet 100 mg PO DAILY 05/15/25 05/15/25 prednisone 20 mg tablet 40 mg PO DAILY 05/15/25 05/15/25 sulfamethoxazole 800 1 tab PO .COMPLEX 05/15/25 05/15/25 mg-trimethoprim 160 mg tablet Previous Rx's ?Medication ?Instructions ?Recorded acetaminophen 500 mg tablet 1,000 mg (2 x 500 mg) PO Q8H PRN 07/17/19 pain #90 tabs ibuprofen 600 mg tablet 600 mg PO Q8H PRN pain #60 tabs 08/17/23 furosemide 20 mg tablet (Lasix) 20 mg PO BID #10 tabs 04/13/25 magnesium oxide 500 mg capsule 500 mg PO DAILY #20 caps 04/13/25 Allergies Allergy/AdvReac Type Severity Reaction Status Date / Time No Known Allergies Allergy Verified 04/18/25 08:32 General Stated Complaint: GenMedical PRISCILLA: 3 Exam Narrative Exam Narrative: Const: Obese femmale in NAD. VS per triage. HEENT: NC/AT. Normal facial exam. Neck: Supple. Trachea midline. Lungs: Normal respiratory effort. Lungs are clear. Cor: RRR with murmur. Good radial pulses. GI: Soft/ND/NT. Neuro: A+O x 3. Normal speech, mentation. Cranial nerves II - XII grossly intact. No gross motor or sensory deficit. Ext: No C/C. Significant bilateral lower extremity edema right greater than left. DP pulses intact. Right lower extremity very warm to touch but without erythema. Tender to touch anteriorly and posteriorly below the knee. Pulses that have been present on the right lower extremity for months at this time look relatively clean and not infected. Course Vital Signs Vital signs: Vital Signs Temperature 99.1 F 05/15/25 05:37 Pulse 78 05/15/25 05:37 Respiratory Rate 16 05/15/25 05:37 Blood Pressure 196/79 H 05/15/25 05:37 Pulse Oximetry 95 05/15/25 05:37 Temperature 99.1 F 05/15/25 05:37 Temperature Source Oral 05/15/25 05:37 Pulse 78 05/15/25 05:37 Respiratory Rate 16 05/15/25 05:37 Blood Pressure 196/79 H 05/15/25 05:37 Blood Pressure Position Sitting 05/15/25 05:37 Pulse Oximetry 95 05/15/25 05:37 Oxygen Delivery Method Room Air 05/15/25 05:37 Oxygen Flow Rate 0 05/15/25 05:37 Pain Level 8 05/15/25 05:37 Medical Decision Making Patient presenting to ED because of right lower extremity pain. She also has increased swelling compared to the left side. Leg is very warm to the touch but not erythematous. She reports chills but no fever. She has a history of DVT secondary to antiphospholipid syndrome but is not anticoagulated. She has amyloidosis. She was treated for GAVIN pending renal biopsy results. She is not febrile here. She has no chest pain and no change in her breathing. Differential includes DVT versus infection. IV has been established. EKG and labs ordered. Oxycodone given for pain as she declined IV morphine. Patient's EKG is sinus rhythm with prolonged QT otherwise unchanged from previous done earlier in April. Her white count is normal. Her hemoglobin is baseline at 8.6. Platelets are normal. Lactic acid is a little up at 2.6. pH is normal at 7.39. Her kidney function is back down to baseline with a creatinine of 1.4. Her calcium is extremely low at 6.3 and she does have a history of hypocalcemia. IV replacement in the form of calcium gluconate has been ordered. Sodium, potassium, bicarb, magnesium are all normal. Liver function normal. She will be signed out to oncoming ED provider pending right lower extremity ultrasound this morning to evaluate for DVT. If negative consider treatment for potential infection given the pain and warmth to the leg. Medical Records Medical records reviewed: Yes I reviewed the patient's medical records. Medical records narrative: Previous admission here as well as [facility] admission. Lab Data Lab results reviewed: Yes I reviewed the patient's lab results. Lab results narrative: See [facility] ECG Data Attestation: I personally reviewed and interpreted this ECG (s) as follows: Prior ECG tracings: available for review Interpretation: See MDM/EKG Quality:SDOH Health Related Social Needs: Health related social needs inadequate housing transpo insecurity lonely/isolated Health related social needs details old house [facility] All Active Problems Microcytic anemia (Acute) Hyperglycemia, drug-induced (Acute) Hyperkalemia (Acute) Hypokalemia (Acute) Lupus nephritis (Acute) On deep vein thrombosis (DVT) prophylaxis (Acute) Acute exacerbation of CHF (congestive heart failure) (Acute) Acute kidney injury superimposed on CKD (Acute) Hematuria (Acute) GAVIN (acute kidney injury) (Acute) Mild peripheral edema (Acute) CHF (congestive heart failure) (Chronic) Cutaneous amyloidosis (Acute) Leg wound, right (Acute) Chronic wound (Acute) Left knee DJD (Chronic) Depo-medrol injection: 02/27/25; 11/28/2024; 08/29/24; 05/30/2024; 02/26/2024; 11/27/2023; 08/17/23 Headache (Acute) Urinary tract infection (Acute) Colovaginal fistula (Acute) Diverticulitis of sigmoid colon (Acute) Amyloidosis (Chronic) Herniated nucleus pulposus, lumbar (Chronic) Antiphospholipid syndrome (Chronic) Trigger thumb of right hand (Acute) Trigger thumb of left hand (Chronic) Nasal vestibulitis (Acute 11/02/17) Nasal congestion (Acute 06/19/14) Deviated nasal septum (Acute 06/19/14) Cephalgia (Acute 11/20/14) Constipation (Chronic) as above HTN (hypertension) (Chronic) GERD (gastroesophageal reflux disease) (Chronic) stable Lupus (Chronic) Medical History Lupus (systemic lupus erythematosus) Hypertension Primary localized cutaneous amyloidosis Cellulitis of right lower limb Lymphocytopenia Normal colonoscopy [place] 4/2/[address] Natalya Styles at [facility], severe diverticular dz, repeat 10 years. 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
[2025-05-15 06:31] LABS: BE (Venous) -1 mmol/L (-2-3); HCO3 (Venous) 24 mmol/L (23-28); O2 Sat (Venous) 46 %; TCO2 (Venous) 23 mmol/L (24-29); pCO2 (Venous) 39 mmHg (41-51); pO2 (Venous) 28 mmHg
[2025-05-15 06:38] LABS: Abs Immature Grans 0.04 10^3/uL (0.0-0.06); HCT 27.1 % (36.0-46.0); HGB 8.6 g/dL (11.2-15.7); Immature Grans % 0.5 %; MCH 27.6 pg (27.0-33.0); MCHC 31.7 % (32.0-36.0); MCV 87 fL (80-95); MPV 9.3 fL (8.0-11.0); Platelet Count 374 10^3/uL (130-400); RBC 3.12 10^6/uL (3.93-5.22); RDW 17.3 % (11.7-14.6); RDW-SD 54.5 fL; WBC 8.29 10^3/uL (4.4-10.8)
[2025-05-15] MEDS: oxyCODONE 5 MG TAB PO ×4 (06:51→20:57)
[2025-05-15 07:04] LABS: ALT 22 U/L (14-59); AST 11 U/L (15-37); Albumin 3.3 g/dL (3.4-5.0); Alkaline Phosphatase 113 U/L (46-116); Anion Gap 13.7 mmol/L (3-11); BUN 29 mg/dL (7-18); Bilirubin, Total 0.5 mg/dL (0.2-1.0); CO2 24.3 mmol/L (21.0-32.0); Chloride 105 mmol/L (98-107); Estimated GFR 42.27 (mL/min/1.73m2); Glucose 81 mg/dL (74-106); Magnesium 2.2 mg/dL (1.8-2.4); Potassium 3.8 mmol/L (3.5-5.1); Sodium 143 mmol/L (136-145); Total Protein 6.2 g/dL (6.4-8.2)
[2025-05-15 07:07] LABS: Calcium 6.3 mg/dL (8.5-10.1)
[2025-05-15] MEDS: CALCIUM GLUCONATE in NaCl 1 GM/50 ML BAG IVPB (07:31)
--- NOTE | 2025-05-15 08:45 | DI.US_ITS ---
Exam(s) US LOWER EXTREMITY VENOUS RT EXAM: US LOWER EXTREMITY VENOUS RT CLINICAL HISTORY: increase swelling/pain TECHNIQUE: Grayscale, color, and doppler imaging of the deep venous system of the right lower extremity was performed. COMPARISON: US US RENAL from 04/21/2025 FINDINGS: There is no evidence of intraluminal thrombus and there is normal compression and augmentation demonstrated within the common femoral vein, femoral vein, and popliteal vein. In the calf the proximal and mid posterior tibial veins are difficult to visualize because the amount of edema. The distal posterior tibial vein is seen and does not exhibit intraluminal clot. The ipsilateral saphenofemoral junction is patent. IMPRESSION: 1. No evidence of DVT in the right lower extremity above the knee level.. 2. No evidence of DVT in the calf although the proximal and mid aspects of the posterior tibial veins were not able to be visualized due to the amount of edema in the calf. DATA REPOSITORY:
--- NOTE | 2025-05-15 09:48 | W.EDPROG ---
Date of service: 05/15/25 Time of Service: 09:48 Medical Decision Making 800 -- Care was signed out by Dr. Velásquez, please see his documentation regarding initial ED presentation and course. Plan at signout was to follow-up on right lower extremity ultrasound assessing for DVT. Patient was hypocalcium. Dr. Velásquez has ordered calcium replacement. 952 -- Right lower extremity ultrasound was reviewed and interpreted by radiology:1. No evidence of DVT in the right lower extremity above the knee level.. 2. No evidence of DVT in the calf although the proximal and mid aspects of the posterior tibial veins were not able to be visualized due to the amount of edema in the calf. Patient has no definitive DVT on study. Leg is swollen and warm to the touch with chronic ulcer lower leg. There is some subtle erythema. She is most tender anteriorly just distal to her knee. I suspect cellulitis. Plan to initiate treatment with cefazolin. Patient is having extreme pain. I will initiate oxycodone. Right dorsalis pedis pulse identified with Doppler. Plan for hospitalization for continued IV antibiotics, pain control and reassessment. Patient may need repeat ultrasound given prior DVT and limitations of study today. 1123 --I spoke with Dr. Morocho, on-call hospitalist, discussed ED presentation and course, he will admit the patient. Lab Data Lab results reviewed: Yes I reviewed the patient's lab results. Labs: 05/15/25 08:20 Blood Blood Culture - Pending 05/15/25 08:00 Blood Blood Culture - Pending Laboratory Tests Range/Units 05/15/25 06:05 WBC (4.4-10.8) 10^3/uL 8.29 RBC (3.93-5.22) 10^6/uL 3.12 L Hgb (11.2-15.7) g/dL 8.6 L Hct (36.0-46.0) % 27.1 L MCV (80-95) fL 87 MCH (27.0-33.0) pg 27.6 MCHC (32.0-36.0) % 31.7 L RDW (11.7-14.6) % 17.3 H Plt Count (130-400) 10^3/uL 374 MPV (8.0-11.0) fL 9.3 Immature Gran % % 0.5 Neutrophils % % 92.2 Lymphocytes % % 4.8 Monocytes % % 2.4 Eosinophils % % 0.1 Basophils % % 0.0 Nucleated RBC % (0.0-0.3) % 0.0 Absolute Neutrophils (1.2-6.7) 10^3/uL 7.64 H Absolute Lymphocytes (1.2-3.4) 10^3/uL 0.40 L Absolute Monocytes (0.1-0.8) 10^3/uL 0.20 Absolute Eosinophils (0.0-0.7) 10^3/uL 0.01 Absolute Basophils (0.0-0.2) 10^3/uL 0.00 VBG pH (7.31-7.41) 7.39 VBG pCO2 (41-51) mmHg 39 L VBG pO2 mmHg 28 VBG HCO3 (23-28) mmol/L 24 VBG Total CO2 (24-29) mmol/L 23 L VBG O2 Saturation % 46 VBG Base Excess (-2-3) mmol/L -1 VBG Lactate (<or=2.0) mmol/L 2.6 H* Sodium (136-145) mmol/L 143 Potassium (3.5-5.1) mmol/L 3.8 Chloride (98-107) mmol/L 105 Carbon Dioxide (21.0-32.0) mmol/L 24.3 Anion Gap (3-11) mmol/L 13.7 H BUN (7-18) mg/dL 29 H Creatinine (0.55-1.02) mg/dL 1.4 H Est GFR (CKD-EPI 2020) (mL/min/1.73m2) 42.27 Glucose (74-106) mg/dL 81 Calcium (8.5-10.1) mg/dL 6.3 L* Magnesium (1.8-2.4) mg/dL 2.2 Total Bilirubin (0.2-1.0) mg/dL 0.5 AST (15-37) U/L 11 L ALT (14-59) U/L 22 Alkaline Phosphatase (46-116) U/L 113 Total Protein (6.4-8.2) g/dL 6.2 L Albumin (3.4-5.0) g/dL 3.3 L Quality:SDOH Health Related Social Needs: Health related social needs inadequate housing transpo insecurity lonely/isolated Health related social needs details old house Discharge Plan Disposition Patient Disposition: Admit to [facility] Condition: Serious Discharge Details Clinical Impression: Hypocalcemia, Cellulitis of leg, right, Pain in right leg Primary Care Provider: Randy Mauricio ED Provider: Evan Whitmore Home Meds and New Rx's Prescriptions: No Action ibuprofen 600 mg tablet 600 mg PO Q8H PRN (Reason: pain) Qty: 60 3RF albuterol sulfate [ProAir HFA] 90 mcg/actuation HFA aerosol inhaler 2 puff Inhalation Q6H PRN (Reason: shortness of breath) hydroxychloroquine 200 MG tablet 200 mg PO DAILY Qty: 30 levothyroxine 125 MCG tablet 150 mcg PO HS amlodipine 2.5 mg tablet 2.5 mg PO DAILY simvastatin 20 mg tablet 40 mg PO DAILY calcium carbonate [Oyster Shell Calcium] 500 mg calcium (1,250 mg) Tablet 500 mg PO DAILY losartan-hydrochlorothiazide 100-12.5 mg Tablet 1 tab PO DAILY acetaminophen 500 mg tablet 1,000 mg PO Q8H PRN (Reason: pain) Qty: 90 3RF gabapentin 400 mg capsule 400 mg PO BID Patient Comments: TAKE ONE CAPSULE BY MOUTH TWICE A DAY Allergy Relief (loratadine) 10 mg capsule 10 mg PO DAILY pramipexole 0.125 mg tablet 0.25 mg PO QPM Patient Comments: TAKE TWO TABLETS BY MOUTH EVERY EVENING AT BEDTIME FOR RESTLESS LEGS fluticasone propionate 110 mcg/actuation HFA aerosol inhaler 2 inh inhalation BID aspirin 81 mg Tablet,Delayed Release (Dr/Ec) 81 mg PO DAILY furosemide [Lasix] 20 mg tablet 20 mg PO BID Qty: 10 0RF magnesium oxide 500 mg capsule 500 mg PO DAILY Qty: 20 0RF prednisone 20 mg tablet 40 mg PO DAILY Patient Comments: TAKE TWO TABLETS BY MOUTH EVERY DAY FOR 30 DAYS sulfamethoxazole-trimethoprim 800-160 mg tablet 1 tab PO .COMPLEX Patient Comments: TAKE 1 TABLET BY MOUTH THREE TIMES WEEKLY ON MONDAY, MONDAY, AND MONDAY FOR 30 DAYS Rx Instructions: 1 tab orally monday, monday and monday; labetalol 100 mg tablet 100 mg PO DAILY cholecalciferol (vitamin D3) 1,250 mcg (50,000 unit) capsule 1,250 mcg PO .COMPLEX Patient Comments: TAKE ONE CAPSULE BY MOUTH THREE TIMES WEEKLY FOR 5 WEEKS Rx Instructions: 1,250 mcg orally 3 times a week;
[2025-05-15] MEDS: ceFAZolin 2 GM/50 ML BAG IVPB ×2 (10:11→17:36)
[2025-05-15] MEDS: Acetaminophen 325 MG TAB 650 MG PO (13:04)
--- NOTE | 2025-05-15 13:08 | W.PM.HP.N ---
Date of service: 05/15/25 Time of Service: 13:08 Assessment and Plan Assessment and plan (1) Cellulitis of leg, right: Status: Acute Assessment and plan: Rapidly progressing symptoms in setting of immune suppression. I agree with inpatient admission even though no sepsis/sirs. Started cefazolin. Not purlulent so will not add MRSA coverage. Less c/w pseudomonas, but reconsider if not imrpoving. Wound care (2) Hypocalcemia: Status: Acute Assessment and plan: A/w prolonged QTc, so treated appropriately with IV calcium with imrpovement. She has known low PTH a/w thyroid surgery in the past. Likely worse related to worse hyperphosphatemia with recent renal failure, though kidney function has now improved. No other symptoms. Mg and K okay. Get repeat PTH and vitamin D Monitor on telemetry, increase oral calcium supplement (3) Lupus nephritis: Status: Acute Assessment and plan: Recent diagnosed, s/p biopsy, treated with prednisone. Renal function at CKD3a level now, close to baseline, much improved on steroids. continue prednisone pending plan from nephrology/rheumatology Continue PJP prophylaxis with 3xWeek TMP/SMX as well. (4) Hyperglycemia, drug-induced: Status: Acute Assessment and plan: A/w steroids, recent A1c at [facility] was reassuring at 5.3%. (5) Microcytic anemia: Status: Acute Assessment and plan: chornic, follow. (6) On deep vein thrombosis (DVT) prophylaxis: Status: Acute Assessment and plan: u/s negative for VTE, on exoxaparin for prophylaxis Known hypercoagulable state, but had hemorrhagic pericardial effusion while on full anticoagulation with warfarin. History of Present Illness History of Present Illness Chief Complaint: leg pain/swelling Narrative: 65-year-old female with a history of hypertension, hyperlipidemia, lupus, amyloidosis, antiphospholipid syndrome (off warfarin due to pericardial effusion), CKD3 on treatment for recent nephritis treated with steroids, and a chronic right ankle wound who presented with increased pain and swelling in her right lower leg. She has had more swelling in both legs for weeks. She has had the wounds on both sides of her right ankle for years. Overnight, she started having increased pain in RLE. They are always red, but more red and more tender on that side. She had chills this morning but no fever. No n/v/d or abdominal pain. The wounds sometimes drain clearish fluid, but not draining actively today. She hasn't submerged them or had other exposures. She was admitted 04/18- at [facility] for acute kidney injury, developing a picture of nephritis, transferring to [facility] 04/25 where she had renal biopsy (showing MPGN, c/w cryoglobulin disease) as well as left inguinal lymph node biopsy (negative for lymphoma), bone marrow biopsy for amyloid was also recommended but declined by patient.. She was treated with steroids and dicharged 05/01 with prednisone to continue for at least a week pending biopsy results. She is still taking the prednisone as she hasn't heard from [facility]. Review of Systems All systems reviewed & are unremarkable except as noted in HPI and below PFSH All Active Problems Pain in right leg (Acute) Cellulitis of leg, right (Acute) Hypocalcemia (Acute) Microcytic anemia (Acute) Hyperglycemia, drug-induced (Acute) Hyperkalemia (Acute) Hypokalemia (Acute) Lupus nephritis (Acute) On deep vein thrombosis (DVT) prophylaxis (Acute) Acute exacerbation of CHF (congestive heart failure) (Acute) Acute kidney injury superimposed on CKD (Acute) Hematuria (Acute) GAVIN (acute kidney injury) (Acute) Mild peripheral edema (Acute) CHF (congestive heart failure) (Chronic) Cutaneous amyloidosis (Acute) Leg wound, right (Acute) Chronic wound (Acute) Left knee DJD (Chronic) Depo-medrol injection: 02/27/25; 11/28/2024; 08/29/24; 05/30/2024; 02/26/2024; 11/27/2023; 08/17/23 Headache (Acute) Urinary tract infection (Acute) Colovaginal fistula (Acute) Diverticulitis of sigmoid colon (Acute) Trigger thumb of right hand (Acute) Trigger thumb of left hand (Chronic) Cephalgia (Acute 11/20/14) Deviated nasal septum (Acute 06/19/14) Nasal congestion (Acute 06/19/14) Nasal vestibulitis (Acute 11/02/17) Constipation (Chronic) as above HTN (hypertension) (Chronic) GERD (gastroesophageal reflux disease) (Chronic) stable Lupus (Chronic) Amyloidosis (Chronic) Antiphospholipid syndrome (Chronic) Herniated nucleus pulposus, lumbar (Chronic) Medical History Lupus (systemic lupus erythematosus) Hypertension Primary localized cutaneous amyloidosis Cellulitis of right lower limb Lymphocytopenia Normal colonoscopy [place] 11/13/[address] Natalya Styles at [facility], severe diverticular dz, repeat 10 years. mg Hypocalcemia Asthma Allergic rhinitis Abnormal mammogram of right breast Degenerative joint disease Hyperlipidemia Pericarditis Eczema Chest wall pain Insomnia Sciatica, left side Surgical History 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) History of bone marrow biopsy S/P thyroidectomy H/O: hysterectomy Tonsillectomy Social History (Updated 05/15/25 @ 15:39 by Daniel Hinkle) Smoking/Tobacco Use Status: Former Tobacco Use Quit Date: 08/14/99 Smoking risk assessment performed?: Yes Alcohol Intake: current Alcohol Intake frequency: a few times a week Alcohol type: beer and wine Drug use: Never Substance use type: does not use Household members: none Housing: house Current gender identity: female Do you feel safe at home: Yes Do you feel safe in your relationship?: Yes Additional Social history: Lives alone, formerly cared for older man who in 2024. 2 cats. no travel. Meds Allergies and Home Medications Allergies Allergy/AdvReac Type Severity Reaction Status Date / Time No Known Allergies Allergy Verified 04/18/25 08:32 Home Medications ?Medication ?Instructions ?Recorded ?Confirmed ?Type hydroxychloroquine 200 mg tablet 200 mg PO DAILY #30 tab-caps 11/16/16 05/15/25 History albuterol sulfate 90 mcg/actuation 2 puff inhalation Q6H PRN 10/04/18 05/15/25 History aerosol inhaler (ProAir HFA) shortness of breath calcium carbonate (Oyster Shell 500 mg PO DAILY 07/05/19 05/15/25 History Calcium) acetaminophen 500 mg tablet 1,000 mg (2 x 500 mg) PO Q8H PRN 07/17/19 05/15/25 Rx pain #90 tabs aspirin 81 mg tablet,delayed 81 mg PO DAILY 05/08/20 05/15/25 History release gabapentin 400 mg capsule 400 mg PO BID 05/20/24 05/15/25 History amlodipine 2.5 mg tablet 2.5 mg PO DAILY 01/31/25 05/15/25 History furosemide 20 mg tablet (Lasix) 20 mg PO BID #10 tabs 04/13/25 05/15/25 Rx pramipexole 0.125 mg tablet 0.25 mg PO QPM 04/18/25 05/15/25 History cholecalciferol (vitamin D3) 1,250 1,250 mcg PO .COMPLEX 05/15/25 05/15/25 History mcg (50,000 unit) capsule fluticasone furoate 100 1 inh inhalation DAILY 05/15/25 05/15/25 History mcg/actuation blister powder for inhalation (Arnuity Ellipta) labetalol 100 mg tablet 100 mg PO DAILY 05/15/25 05/15/25 History levothyroxine 150 mcg tablet 150 mcg PO DAILY 05/15/25 05/15/25 History magnesium oxide 500 mg PO DAILY 05/15/25 05/15/25 History prednisone 20 mg tablet 40 mg PO DAILY 05/15/25 05/15/25 History simvastatin 40 mg tablet 40 mg PO DAILY 05/15/25 05/15/25 History sulfamethoxazole 800 1 tab PO .COMPLEX 05/15/25 05/15/25 History mg-trimethoprim 160 mg tablet Exam Narrative Exam Narrative: GEN: Alert and oriented x 4, pleasant and cooperative, gives linear history. No acute distress at rest. HEENT: Head atraumatic. Conjunctiva clear, no icterus. PEERL, EOMI. no rhinorrhea. MMM, OP benign. Neck is supple with no masses or lymphadenopathy, trachea midline LUNGS: CTAB with normal effort CV: RRR with 2/6 systolic murmur. No gallops, or rubs. ABD: active bowel sounds, soft, nontender and nondistended. No masses. EXT: no cyanosis, clubbing. 2+ kylah pitting edema to thighs. MSK: No joint redness or swelling, some pain with ROM of right ankle and knee limits movement NEURO: CN 2-12 grossly intact. symmetric movement of 4 extremities. Normal speech and coordination. No tremor SKIN: scattered bruises. sclerotic patches kylah shins (old amyloid), right leg raysa kylah ~3cm open ulcerations with whitish bases over maleoli, red and tender up around anterior denson. No drainage currently. PSYCH: normal mood and affect, normal thought process. Results Imaging EKG: report reviewed (NSR, no change other than QTc long at 514) and image reviewed Imaging Studies: LE u/s: 1. No evidence of DVT in the right lower extremity above the knee level.. 2. No evidence of DVT in the calf although the proximal and mid aspects of the posterior tibial veins were not able to be visualized due to the amount of edema in the calf. Labs 05/15/25 06:05 05/15/25 06:05 Labs: Laboratory Results - last 24 hr 05/15/25 06:05 WBC 8.29 RBC 3.12 L Hgb 8.6 L Hct 27.1 L MCV 87 MCH 27.6 MCHC 31.7 L RDW 17.3 H Plt Count 374 MPV 9.3 Immature Gran % 0.5 Neutrophils % 92.2 Lymphocytes % 4.8 Monocytes % 2.4 Eosinophils % 0.1 Basophils % 0.0 Nucleated RBC % 0.0 Absolute Neutrophils 7.64 H Absolute Lymphocytes 0.40 L Absolute Monocytes 0.20 Absolute Eosinophils 0.01 Absolute Basophils 0.00 VBG pH 7.39 VBG pCO2 39 L VBG pO2 28 VBG HCO3 24 VBG Total CO2 23 L VBG O2 Saturation 46 VBG Base Excess -1 VBG Lactate 2.6 H* Sodium 143 Potassium 3.8 Chloride 105 Carbon Dioxide 24.3 Anion Gap 13.7 H BUN 29 H Creatinine 1.4 H Est GFR (CKD-EPI 2020) 42.27 Glucose 81 Calcium 6.3 L* Magnesium 2.2 Total Bilirubin 0.5 AST 11 L ALT 22 Alkaline Phosphatase 113 Total Protein 6.2 L Albumin 3.3 L Last Vital Signs Temp 37.3 C 05/15/25 06:10 Pulse 89 05/15/25 12:16 Resp 20 05/15/25 12:20 BP 146/53 H 05/15/25 12:16 Pulse Ox 95 05/15/25 12:10 Time Spent Time spent with Patient: >75 minutes Time was spent: preparing to see the patient(eg.review tests), obtaining and/or reviewing separately otained hiistory, ordering medications,tests, procedures, referring, communicating with other health long term care pharmacist, indepentently interpreting results, counseling the patient and care coordination
--- NOTE | 2025-05-15 13:35 | W.PC.ACHO ---
Registration Status: ADM IN Primary Language: Preferred Language: Czech ED Information & Data Chief Complaint GenMedical 05/15/25 06:10 Chief Complaint GenMedical 05/15/25 05:45 Triage Note arrives via POV from home, c 05/15/25 05:37 /o severe bilateral leg swelling and pain in R leg. swelling has been ongoing for weeks. pain in leg started around 1am today. Feels SOB at rest. denies cardiac history. took tylenol around 3am. reports amyloidosis. Medical / Surgical History (Updated 05/15/25 @ 11:25 by Evan Whitmore MD) Lupus (systemic lupus erythematosus) Hypertension Primary localized cutaneous amyloidosis Cellulitis of right lower limb Lymphocytopenia Normal colonoscopy Hypocalcemia Asthma Allergic rhinitis Abnormal mammogram of right breast Degenerative joint disease Hyperlipidemia Pericarditis Eczema Chest wall pain Insomnia Sciatica, left side (Updated 11/17/22 @ 12:05 by KOLE Rose) 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) History of bone marrow biopsy S/P thyroidectomy H/O: hysterectomy Tonsillectomy Most Recent Vital Signs Temperature 37.3 C 05/15/25 06:10 Temperature Source Oral 05/15/25 06:10 Pulse 89 05/15/25 12:16 Pulse 85 05/15/25 12:20 Respiratory Rate 20 05/15/25 12:20 Respiratory Effort Normal, Non-Labored 05/15/25 06:10 Respiratory Depth Normal 05/15/25 06:10 Respiratory Pattern Normal 05/15/25 06:10 Blood Pressure 146/53 H 05/15/25 12:16 Blood Pressure Mean 75 05/15/25 12:16 Blood Pressure Position Sitting 05/15/25 06:10 Pulse Oximetry 95 05/15/25 12:10 Oxygen Delivery Method Room Air 05/15/25 06:10 Oxygen Flow Rate 0 05/15/25 06:10 Pain Level 7 05/15/25 13:04 Allergies No Known Allergies Allergy (Verified 04/18/25 08:32) Precautions Isolation Standard precaution 05/15/25 06:10 Active Medications Generic Name Dose Route Start Last Admin Trade Name Freq PRN Reason Stop Dose Admin Acetaminophen 650 mg 05/15/25 11:24 05/15/25 13:04 Acetaminophen 325 Mg Tab PO 650 mg Q4H PRN PRN Administration IV IV Catheter Type [Right Peripheral IV Antecubital] IV Catheter Gauge [Right 18 Antecubital] Diet Orders Category Date Time Status Heart Healthy Eating [DIET] Nutrition 05/15/25 Lunch Active Diagnostics 05/15/25 Range/Units 06:05 WBC 8.29 (4.4-10.8) 10^3/uL RBC 3.12 L (3.93-5.22) 10^6/uL Hgb 8.6 L (11.2-15.7) g/dL Hct 27.1 L (36.0-46.0) % MCV 87 (80-95) fL MCH 27.6 (27.0-33.0) pg MCHC 31.7 L (32.0-36.0) % RDW 17.3 H (11.7-14.6) % Plt Count 374 (130-400) 10^3/uL MPV 9.3 (8.0-11.0) fL Immature Gran % 0.5 % Neutrophils % 92.2 % Lymphocytes % 4.8 % Monocytes % 2.4 % Eosinophils % 0.1 % Basophils % 0.0 % Nucleated RBC % 0.0 (0.0-0.3) % Absolute Neutrophils 7.64 H (1.2-6.7) 10^3/uL Absolute Lymphocytes 0.40 L (1.2-3.4) 10^3/uL Absolute Monocytes 0.20 (0.1-0.8) 10^3/uL Absolute Eosinophils 0.01 (0.0-0.7) 10^3/uL Absolute Basophils 0.00 (0.0-0.2) 10^3/uL VBG pH 7.39 (7.31-7.41) VBG pCO2 39 L (41-51) mmHg VBG pO2 28 mmHg VBG HCO3 24 (23-28) mmol/L VBG Total CO2 23 L (24-29) mmol/L VBG O2 Saturation 46 % VBG Base Excess -1 (-2-3) mmol/L VBG Lactate 2.6 H* (<or=2.0) mmol/L Sodium 143 (136-145) mmol/L Potassium 3.8 (3.5-5.1) mmol/L Chloride 105 (98-107) mmol/L Carbon Dioxide 24.3 (21.0-32.0) mmol/L Anion Gap 13.7 H (3-11) mmol/L BUN 29 H (7-18) mg/dL Creatinine 1.4 H (0.55-1.02) mg/dL Est GFR (CKD-EPI 2020) 42.27 (mL/min/1.73m2) Glucose 81 (74-106) mg/dL Calcium 6.3 L* (8.5-10.1) mg/dL Magnesium 2.2 (1.8-2.4) mg/dL Total Bilirubin 0.5 (0.2-1.0) mg/dL AST 11 L (15-37) U/L ALT 22 (14-59) U/L Alkaline Phosphatase 113 (46-116) U/L Total Protein 6.2 L (6.4-8.2) g/dL Albumin 3.3 L (3.4-5.0) g/dL 05/15/25 08:20 Blood Culture - Pending Blood 05/15/25 08:00 Blood Culture - Pending Blood Intake and Output - 24 Hour Total 05/15/25 05:36 thru 05/15/25 10:41 Intake Total 100 Balance 100 Weight 100.108 kg Intake: IV 100 Falls Risk Assessment History of Falls Previous History 05/15/25 06:10 Contributing Factors Impairments 05/15/25 06:10 Ambulatory Aids Uses ambulatory device + 05/15/25 06:10 Tubes/Lines With any additional score 05/15/25 06:10 Gait Evaluation W/any additional score 05/15/25 06:10 Cognition No cognitive impairment 05/15/25 06:10 Fall Total Score 88 05/15/25 06:10 Level of Risk Maximum Risk 05/15/25 06:10 v v v v v v v v v Sending and/or Receiving Nurses: Please use comment section below to note any information pertinent to the patient hand-off not included above. Information / Comments: Pt arrived to the unit at 13:00. On RA, 02/20 pain in RLE. Report received from: Palak @[id number].
[2025-05-15] MEDS: Normal Saline Flush 10 ML SYR IVP ×2 (17:36→20:50)
[2025-05-15] MEDS: Gabapentin 400 MG CAP PO (20:50)
[2025-05-15] MEDS: Pramipexole 0.25 MG TAB PO (20:50)
[2025-05-15] MEDS: Labetalol 100 MG TAB PO (20:50)
[2025-05-15] MEDS: Simvastatin 20 MG TAB 40 MG PO (20:50)
[2025-05-15] MEDS: Levothyroxine 150 MCG TAB PO (21:07)
[2025-05-15] MEDS: Polyethylene Glycol 3350 17 GM PACKET PO (21:07)
[2025-05-15] MEDS: Normal Saline 500 ML 1000 ML IV (23:45)
[2025-05-16] VITALS (80 sets, daily range): BP systolic 96–128; BP diastolic 42–102; PULSE 67–88; RESP 7–25; TEMP 36.1–38.6; O2SAT 95–100
[2025-05-16 00:09] LABS: NT-proBNP 12606 pg/mL (<300)
[2025-05-16] MEDS: Normal Saline Flush 10 ML SYR IVP ×5 (01:22→22:05)
[2025-05-16] MEDS: Furosemide 20 MG/2 ML VIAL IVP (01:22)
--- NOTE | 2025-05-16 01:30 | RT.EKG_ITS ---
APPROVED REPORT Exam: Resting ECG Reason for Exam: AMS, CHF Patient Location: I HR:73 bpm ECG Measurements Heart Rate 73 AXIS LA [id number] P [id number] QRSd 103 QRS -2 QT 459 T 0 QTc 506 Conclusion Sinus rhythm Poor R wave progression, possible old anterior infarct
[2025-05-16 01:33] LABS: BE -6 mmol/L (-2-3); FIO2L 3 L; HCO3 19 mmol/L (22-26)
[2025-05-16 02:04] LABS: Glucose Negative (Negative)
[2025-05-16 02:08] LABS: RBC 20-50 HPF (0-2)
--- NOTE | 2025-05-16 02:08 | DI.RAD_ITS ---
Exam(s) XR PORTABLE CHEST AP EXAM: XR PORTABLE CHEST AP CLINICAL HISTORY: Increased SOB. TECHNIQUE: 2D digital imaging was performed. COMPARISON: CR XR CHEST 2V PA LATERAL from 04/18/2025 FINDINGS: Single AP portable view. Patient rotated towards the right Heart size is upper normal. The mediastinum is not widened. There appears to be some mild infiltrate in the left lower lobe retrocardiac region and blunting of left costophrenic angle probably indicating small left pleural effusion. Right lung appears clear. IMPRESSION: Left lung base findings as above. Recommend nonportable PA and lateral views when clinically possible. DATA REPOSITORY: RADIATION DOSE DELIVERED:
[2025-05-16 02:33] LABS: Abs Immature Grans 0.15 10^3/uL (0.0-0.06); HCT 25.0 % (36.0-46.0); HGB 8.0 g/dL (11.2-15.7); MCH 28.2 pg (27.0-33.0); MCHC 32.0 % (32.0-36.0); MCV 88 fL (80-95); MPV 9.5 fL (8.0-11.0); Platelet Count 311 10^3/uL (130-400); RBC 2.84 10^6/uL (3.93-5.22); RDW 17.8 % (11.7-14.6); RDW-SD 57.1 fL; WBC 13.73 10^3/uL (4.4-10.8)
[2025-05-16 02:34] LABS: ALT 16 U/L (14-59); AST 24 U/L (15-37); Albumin 2.3 g/dL (3.4-5.0); Alkaline Phosphatase 84 U/L (46-116); Anion Gap 13.5 mmol/L (3-11); BUN 40 mg/dL (7-18); Bilirubin, Total 0.4 mg/dL (0.2-1.0); CO2 22.5 mmol/L (21.0-32.0); Chloride 105 mmol/L (98-107); Estimated GFR 21.08 (mL/min/1.73m2); Glucose 82 mg/dL (74-106); Potassium 4.7 mmol/L (3.5-5.1); Sodium 141 mmol/L (136-145); Total Protein 5.0 g/dL (6.4-8.2)
[2025-05-16] MEDS: CEFEPIME 1 GM in Normal Saline 50 ML IVPB ×2 (02:35→14:19)
[2025-05-16 02:36] LABS: Troponin I 28 ng/L (<or=51)
[2025-05-16 02:37] LABS: C-Reactive Protein > 25.00 mg/dL (<or=0.5)
[2025-05-16 02:38] LABS: Immature Grans % 0.0 %
[2025-05-16 02:39] LABS: RBC Morphology Normal
[2025-05-16] MEDS: Hydrocortisone SOD SUC. 100 MG VIAL IVP ×2 (02:40→13:07)
[2025-05-16 02:42] LABS: Calcium 6.0 mg/dL (8.5-10.1)
--- NOTE | 2025-05-16 02:43 | CE_ITS ---
Date of service: 05/16/25 Time of Service: 02:43 Event Note: This is a 65-year-old female patient who was admitted for cellulitis of the right leg with chronic venous stasis changes of both lower extremities. I was called to see the patient because of altered mental status after being treated for possible orthostatic event when ambulating to the bathroom at around 22:00 on 05/15/2025. Because of question of poor output with no Prince catheter and poor intake orally, the patient was thought to be possibly dry though she does have a history of right-sided heart failure. Her left ventricular ejection fraction was 65% with PA pressure up to 50 mmHg in April 2025. She did receive an IV bolus of normal saline 500 cc and was to start normal saline at 125 cc an hour. After the bolus the patient had another episode of altered mental status lying in bed and not responding well. She was slightly tachypneic but not tachycardic and did have a drop in her blood pressure to a systolic below 90. She appeared to be perfusing well and a strong left radial pulse was palpable. I was called to the room to examine patient who was hypoxic just prior to this event and altered mental status. She was also breathing fast. She was having tremors. She was not following commands well but would open her eyes and respond to verbal stimuli. She was not oriented other than to person. Stat EKG showed no acute ischemic changes with sinus rhythm and a poor baseline with miss-read of atrial fibrillation by the department helper. Patient continued to have tremors and felt warm though she would not have any elevation in her temperature with external monitoring. Stat labs were done with a BNP repeated on her earlier lab from 05/15/2025 which did show elevation from the last measurement. Artery blood gas did reveal slight respiratory alkalosis with pH above 7.4 and pCO2 low.. She did respond to 3 L of O2 per nasal cannula for hypoxemia. Lungs did not reveal any focalizing rales or rhonchi and she did have upper airway wheezing with her tachypnea. The patient felt slightly cool to touch in certain areas and warm to touch especially over the right lower extremity. Heart was irregular but not tachycardic. Abdomen was benign. Her right leg was tender to any movement. She had erythema and open ulcerations over her right ankle. Provide chest x-ray was performed and did appear to have vascular congestion but formal read did not state that there was pulmonary edema but some small bilateral pleural effusions. There were no infiltrates noted. The patient did receive 20 mg of IV Lasix initially when she had change in mental status which was just after 01:00 on 05/16/2025. This was because of her respiratory symptoms after receiving 500 cc normal saline bolus. Her normal saline fluid infusion at 125 cc an hour was never started. The patient was moved to the ICU for further interventions and glucometer measurement there was low being below 70, the patient given D50 with slow improvement of her mentation though she was not at baseline. She was at risk for hypoglycemia with steroid dependence and she was also given hydrocortisone 100 mg IV and will be continued on this every 8 hours. She will have more frequent glucometer measurements with intervention if needed. She did appear septic along with her hypoglycemia with temperature 38 ?C rectally. Other labs revealed that the procalcitonin was extremely high with CRP high. WBC was not elevated upon admission and this was being repeated. She was meeting criteria for septic shock at the time of transfer to ICU. Her IV antibiotic therapy was expanded with vancomycin and cefepime with Prince catheter placed showing cloudy dark urine with urine culture to be done. She also had blood cultures repeated. IV access was poor for blood draws and interventions with IV medicines therefore Dr. Rees was consulted for central line placement. Exam: XR Chest Exam date and time: 05/16/2025 1:57 AM Age: 65 years old Clinical indication: Shortness of breath; Increased SOB TECHNIQUE: Imaging protocol: Radiologic exam of the chest. Views: 1 view. COMPARISON: CR XR CHEST 2V PA LATERAL 04/18/2025 10:36 AM FINDINGS: Lungs: Mild bibasilar atelectasis. No focal consolidation or pulmonary edema. Pleural spaces: Minimal blunting of the costophrenic angles bilaterally, likely small bilateral pleural effusions. Heart/Mediastinum: Cardiomegaly. Bones/joints: Multilevel thoracic spine degenerative disc space narrowing and osteophyte formation. IMPRESSION: Small bilateral pleural effusions with mild bibasilar atelectasis. Assessment/plan: Patient seems to have progressed with septic shock though her blood pressures are improved with treatment of hypoglycemia she may still need vasopressors versus gentle IV fluid resuscitation though this may be risky with her right-sided heart failure. She is doing well with maintaining a MAP above 65 at this time. Her antibiotic coverage was expanded to vancomycin and cefepime with urine culture done and repeat blood culture done. She does have a source of infection with her leg but urine is a possibility. She does have a stent in her urinary system which was placed recently. She is steroid-dependent and part of her presentation was stress of sepsis with hypoglycemia. She was treated with D D50 push with improvement of her mentation. She will continue to have frequent glucometer measurements. She was initiated on stress dose hydrocortisone 100 mg IV every 8 hours. Lab will be followed closely and her persistent hypocalcemia will be treated with IV calcium gluconate as needed. She does have hypoalbuminemia which could contribute to her low calcium measure ment and ionized calcium is a send which would not be helpful in the situation. Dr. Rees did place central line which we used for IV access, vasopressors if needed and lab draws. As patient awakens we will encourage oral intake but may have to give fluids if her blood pressure remains soft prior to starting vasopressors. She will remain ICU level of care until stable. She is a full code. Time Spent with Patient Time spent in critical care(minutes): 60 Time Spent Included: Coordination of care, Chart review, Documenting critically ill care, Time at immediate bedside and Discussing critically ill care with other medical staff
[2025-05-16 02:44] LABS: Procalcitonin 118.64 ng/mL
[2025-05-16 02:54] LABS: Vitamin D 25 Total 49 ng/mL (30-100)
[2025-05-16] MEDS: VANCOMYCIN 1,500 MG in Normal Saline 250 ML 166.6666 MG IVPB (02:55)
[2025-05-16 03:08] LABS: NT-proBNP > 35000 pg/mL (<300)
--- NOTE | 2025-05-16 04:22 | W.PM.PROGNOT ---
Date of Service Date of service: 05/16/25 Time of Service: 04:22 Assessment and Plan Assessment and plan (1) Temporary central venous catheter in place: Status: Acute Assessment and plan: With informed consent, and using sterile technique with ultrasound guidance, I placed a right internal jugular vein central venous catheter to 16 cm at the skin. All ports are functional at insertion, and chest x-ray confirms appropriate placement and absence of pneumothorax. Subjective Subjective Interval history since last seen: I was called to the bedside for central venous access. Dr. Coon explained that Francie was admitted with sepsis and decreasing blood pressure. He is interested in starting vasoactive medications requiring central venous acess. Furthermore, the peripheral IV sites were not functioning appropriately. I explained the process of central vein cannulation to Francie and the urgent circumstances. She provided verbal informed consent. Objective Last Vital Signs Temp 99.5 F 05/15/25 23:12 Pulse 70 05/15/25 23:12 Resp 20 05/15/25 23:12 BP 100/56 L 05/15/25 23:12 Pulse Ox 94 05/15/25 23:12 Laboratory Results - last 24 hr 05/15/25 05/16/25 05/16/25 06:05 01:25 01:54 WBC 8.29 RBC 3.12 L Hgb 8.6 L Hct 27.1 L MCV 87 MCH 27.6 MCHC 31.7 L RDW 17.3 H Plt Count 374 MPV 9.3 Immature Gran % 0.5 Neutrophils % 92.2 Band Neutrophils % Lymphocytes % 4.8 Monocytes % 2.4 Eosinophils % 0.1 Basophils % 0.0 Metamyelocytes % Nucleated RBC % 0.0 Absolute Neutrophils 7.64 H Absolute Lymphocytes 0.40 L Absolute Monocytes 0.20 Absolute Eosinophils 0.01 Absolute Basophils 0.00 RBC Morphology ABG Sample Site Right Radial ABG pH 7.41 ABG pCO2 30 L ABG pO2 117 H ABG HCO3 19 L ABG Total CO2 18 L ABG O2 Saturation ABG Base Excess -6 L VBG pH 7.39 VBG pCO2 39 L VBG pO2 28 VBG HCO3 24 VBG Total CO2 23 L VBG O2 Saturation 46 VBG Base Excess -1 VBG Lactate 2.6 H* Oxygen Liter Flow 3 Sodium 143 Potassium 3.8 Chloride 105 Carbon Dioxide 24.3 Anion Gap 13.7 H BUN 29 H Creatinine 1.4 H Est GFR (CKD-EPI 2020) 42.27 Glucose 81 Calcium 6.3 L* Magnesium 2.2 Total Bilirubin 0.5 AST 11 L ALT 22 Alkaline Phosphatase 113 Troponin I C-Reactive Protein NT-Pro-B Natriuret Pep 72060 H Total Protein 6.2 L Albumin 3.3 L 25-OH Vitamin D Total Procalcitonin Urine Color Yellow Urine Clarity Sl Cloudy Urine pH 5.5 Ur Specific [place] 1.020 Urine Protein >=300 H Urine Ketones Negative Urine Blood Large H Urine Nitrite Negative Urine Bilirubin Negative Urine Urobilinogen 0.2 Ur Leukocyte Esterase Small H Urine RBC 20-50 H Urine WBC 10-20 H Ur Epithelial Cells Few Urine Crystals Negative Urine Bacteria Few Urine Casts Negative Urine Mucus Negative Ur Culture Indicated? C&S Done As Ordered Urine Glucose Negative 05/16/25 02:00 WBC 13.73 H RBC 2.84 L Hgb 8.0 L Hct 25.0 L MCV 88 MCH 28.2 MCHC 32.0 RDW 17.8 H Plt Count 311 MPV 9.5 Immature Gran % 0.0 Neutrophils % 87.0 Band Neutrophils % 1 Lymphocytes % 3.0 Monocytes % 6.0 Eosinophils % 0.0 Basophils % 0.0 Metamyelocytes % 3 Nucleated RBC % 0.1 Absolute Neutrophils 12.08 H Absolute Lymphocytes 0.41 L Absolute Monocytes 0.82 H Absolute Eosinophils 0.00 Absolute Basophils 0.00 RBC Morphology Normal ABG Sample Site ABG pH ABG pCO2 ABG pO2 ABG HCO3 ABG Total CO2 ABG O2 Saturation ABG Base Excess VBG pH VBG pCO2 VBG pO2 VBG HCO3 VBG Total CO2 VBG O2 Saturation VBG Base Excess VBG Lactate 3.9 H* Oxygen Liter Flow Sodium 141 Potassium 4.7 Chloride 105 Carbon Dioxide 22.5 Anion Gap 13.5 H BUN 40 H Creatinine 2.5 H D Est GFR (CKD-EPI 2020) 21.08 Glucose 82 Calcium 6.0 L* Magnesium Total Bilirubin 0.4 AST 24 ALT 16 Alkaline Phosphatase 84 Troponin I 28 C-Reactive Protein > 25.00 H NT-Pro-B Natriuret Pep > 76735 H Total Protein 5.0 L Albumin 2.3 L 25-OH Vitamin D Total 49 Procalcitonin 118.64 Urine Color Urine Clarity Urine pH Ur Specific [place] Urine Protein Urine Ketones Urine Blood Urine Nitrite Urine Bilirubin Urine Urobilinogen Ur Leukocyte Esterase Urine RBC Urine WBC Ur Epithelial Cells Urine Crystals Urine Bacteria Urine Casts Urine Mucus Ur Culture Indicated? Urine Glucose Procedures Central Line Placement Right IJ: Time out performed: Yes Patient placed on monitor/pulse ox: Yes MD prep: mask, gown and gloves Central line prep: Chlorhexidine scrub and sterile drapes applied Local anesthesia used: lidocaine 1% Amount of anesthesia used (ml): 3 Ultrasound used for placement: Yes Central line lumen inserted: triple Post procedure: sutured in place, good blood return, all ports aspirated, flushed, capped and sterile dressing applied Post procedure x-ray: tip of catheter in good position and no pneumothorax seen Patient tolerated procedure: well Complications: none Time Spent with Patient Time Spent with Patient: >50 minutes Time was spent: referring, communicating with other health behavioral health care manager, indepentently interpreting results and counseling the patient
[2025-05-16] MEDS: oxyCODONE 5 MG TAB PO ×3 (04:27→15:28)
[2025-05-16] MEDS: CALCIUM GLUCONATE in NaCl 1 GM/50 ML BAG IVPB (04:31)
--- NOTE | 2025-05-16 05:19 | DI.RAD_ITS ---
Exam(s) XR PORTABLE CHEST AP POST LINE EXAM: XR PORTABLE CHEST AP POST LINE CLINICAL HISTORY: central line placement. TECHNIQUE: 2D digital imaging was performed. COMPARISON: CR,XR XR PORTABLE CHEST AP from 05/16/2025 FINDINGS: Single AP portable view. There has been interval placement of a right jugular central line. Its distal tip is in the right atrium. Heart size unchanged in the mediastinum is not widened. There is persistent infiltrate in the left lower lobe-left lung base and small left pleural effusion. Right lung remains clear. IMPRESSION: Left lower lobe infiltrate and small left pleural effusion. Distal tip of the newly placed right jugular central line is in the right atrium. DATA REPOSITORY: RADIATION DOSE DELIVERED:
[2025-05-16 05:41] LABS: HCT 23.9 % (36.0-46.0); HGB 7.7 g/dL (11.2-15.7); MCH 28.2 pg (27.0-33.0); MCHC 32.2 % (32.0-36.0); MCV 88 fL (80-95); MPV 9.1 fL (8.0-11.0); Platelet Count 249 10^3/uL (130-400); RBC 2.73 10^6/uL (3.93-5.22); RDW 17.7 % (11.7-14.6); RDW-SD 55.9 fL; WBC 12.64 10^3/uL (4.4-10.8)
[2025-05-16 05:55] LABS: Anion Gap 15.6 mmol/L (3-11); BUN 44 mg/dL (7-18); CO2 21.4 mmol/L (21.0-32.0); Chloride 106 mmol/L (98-107); Estimated GFR 21.08 (mL/min/1.73m2); Glucose 84 mg/dL (74-106); Potassium 4.6 mmol/L (3.5-5.1); Sodium 143 mmol/L (136-145)
[2025-05-16 05:56] LABS: PTT Activated 26.8 sec (20.6-30.2); Prothrombin Time 15.1 sec (9.1-11.1)
[2025-05-16 06:06] LABS: INR 1.5 (0.9-1.1)
[2025-05-16 06:08] LABS: Calcium 6.3 mg/dL (8.5-10.1)
[2025-05-16] MEDS: Mometasone 220 MCG 14 DOSE INHALER 1 PUFF IH (08:20)
--- NOTE | 2025-05-16 08:33 | DI.VRAD_ITS ---
PROCEDURE INFORMATION: Exam: XR Chest Exam date and time: 05/16/2025 5:10 AM Age: 65 years old Clinical indication: Device placement; Central line placement TECHNIQUE: Imaging protocol: Radiologic exam of the chest. Views: 1 view. COMPARISON: CR XR PORTABLE CHEST AP 05/16/2025 1:57 AM FINDINGS: Tubes, catheters and devices: Right IJ central line in the low SVC/high right atrium. Lungs: No consolidation. Pleural spaces: Small pleural effusions again noted. No pneumothorax Heart/Mediastinum: Stable. Bones/joints: No acute findings. IMPRESSION: 1. Right IJ central line in the low SVC/high right atrium. 2. Small pleural effusions again noted. Dictated and Authenticated by: Daniel Castillo MD. Orderin Cabrera Fermin MD
--- NOTE | 2025-05-16 08:56 | INITIAL_ITS ---
Date of service: 05/16/25 Time of Service: 08:56 Care Management Initial Assmt Initial Assessment Reason for Hospitalization: cellulitis Functional Status/Living Situation Patient Presentation: Francie was sitting up in bed in the ICU when CM met with her. She was pleasant in interaction but was drowsy and kept falling asleep. Francie lives in a single family home in [facility] with her 2 cats. She lost her long time partner a few months ago. Francie has 2 children who both live in [place]. She is independent at baseline and does not receive any community services. Francie was admitted with cellulitis of her RLE. During the night she had an episode where she became hypotensive and a rapid response was called. She was tremulous and confused. She was transferred to ICU and her blood sugar was checked and found to be quite low (<70). She was gibe D50 with improvement in her mentation. Town of Residence: [place] Resides with: Alone Significant Other/Family: Out of area (daughters live in [place]) Employment Status: Retired Instrumental Activities of Daily Living (ADLs): Independent Medications Medication Management: No Issues/Barriers identified Physical Functioning/Mobility Assistive Device: none Advance Directives Advance Directives: Do you have an Advance Directive: N , 10:31 AD On File at [facility]: N 11/13/18, 10:31 Date Asked 05/15/25 05/15/25, 05:38 AD Date Reviewed COLST On File at [facility] COLST Date Scanned Comment: not interested in completing Advanced Directives Code Status Resuscitation Status Full Code Portal Pt does not currently have a portal and education provided: Yes Insurance Coverage/Financial Issues Insurance: [facility] MCR [facility] Care Team Visit Care Team Role Provider Type Randy Mauricio Primary Care Provider NON-[facility] STAFF PHYSICIAN Briana Franklin MD Other Providers NON-[facility] STAFF PHYSICIAN KOLE Bella Other Providers PHYSICIANS LOCKSTITCHER [facility]iders [facility] STAFF PHYSICIAN [facility] Other Prov[facility] NON-[facility] STAFF PHYSICIAN Conor Gardner MD Other Providers [facility] STAFF PHYSICIAN Sachin Jeffers MD Other Providers [facility] STAFF PHYSICIAN Raegan Jones MD Other Providers [facility] STAFF PHYSICIAN Jacinto Cain DO Other Providers OSTEOPATHIC DOCTOR Zander Rees MD Other Providers [facility] STAFF PHYSICIAN Daly Clement MD Other Providers [facility] STAFF PHYSICIAN Pao Washington MD Other Providers [facility] STAFF PHYSICIAN Evan Whitmore MD Emergency Provider [facility] STAFF PHYSICIAN Daniel Hinkle Admit Provider [facility] STAFF PHYSICIAN Attending Provider Discharge Potential Discharge Needs: PCP F/U Appt Anticipated Barriers to Discharge: None Identified Patient/Family Education Needs: Review discharge instructions, discuss Ask Me Three Transportation: Private vehicle Plan: Anticipate Francie will be discharged home, possibly with new home health services, when medically stable. She will follow up with her PCP and plan of care and transport with family. CM will follow and continue to assess for dsicharge planning needs. Social Determinants of Health Screening Social Determinants of health last assessed in clinic: 05/16/25 Will the Patient Participate in the Screening?: Yes Do you worry about having a steady place to live?: no Problems where you live: no known problems In the past 12 months, have you had to go without electric, gas, oil or water in your home?: no 1. Within the past 12 months, we worried whether our food would run out before we got money to buy more.: Never true 2. Within the past 12 months, the food we bought just didn't last and we didn't have money to get more.: Never true Has lack of transportation kept you from medical appointments or from doing things needed for daily living?: no Has anyone in your life made you feel unsafe or unsupported?: no How hard is it for you to pay for the very basics like food, housing, medical care, and heating? Would you say it is:: Not hard at all Do you want help finding or keeping work or a job?: I do not need or want help If for any reason you need help with day-to-day activities such as bathing, preparing meals, shopping, managing finances, etc., do you get the help you need?: I don?t need any help How often do you feel lonely or isolated from those around you?: Never Do you speak a language other than Hebrew at home?: No PFSH All Active Problems (Updated 05/16/25 @ 05:20 by Zander Rees MD) Temporary central venous catheter in place (Acute) Pain in right leg (Acute) Cellulitis of leg, right (Acute) Hypocalcemia (Acute) Microcytic anemia (Acute) Hyperglycemia, drug-induced (Acute) Hyperkalemia (Acute) Hypokalemia (Acute) Lupus nephritis (Acute) On deep vein thrombosis (DVT) prophylaxis (Acute) Acute exacerbation of CHF (congestive heart failure) (Acute) Acute kidney injury superimposed on CKD (Acute) Hematuria (Acute) GAVIN (acute kidney injury) (Acute) Mild peripheral edema (Acute) CHF (congestive heart failure) (Chronic) Cutaneous amyloidosis (Acute) Leg wound, right (Acute) Chronic wound (Acute) Left knee DJD (Chronic) Depo-medrol injection: 02/27/25; 11/28/2024; 08/29/24; 05/30/2024; 02/26/2024; 11/27/2023; 08/17/23 Headache (Acute) Urinary tract infection (Acute) Colovaginal fistula (Acute) Diverticulitis of sigmoid colon (Acute) Amyloidosis (Chronic) Herniated nucleus pulposus, lumbar (Chronic) Antiphospholipid syndrome (Chronic) Trigger thumb of right hand (Acute) Trigger thumb of left hand (Chronic) Nasal vestibulitis (Acute 11/02/17) Nasal congestion (Acute 06/19/14) Deviated nasal septum (Acute 06/19/14) Cephalgia (Acute 11/20/14) Constipation (Chronic) as above HTN (hypertension) (Chronic) GERD (gastroesophageal reflux disease) (Chronic) stable Lupus (Chronic) Medical History Lupus (systemic lupus erythematosus) Hypertension Primary localized cutaneous amyloidosis Cellulitis of right lower limb Lymphocytopenia Normal colonoscopy [place] 11/13/[address] Natalya Styles at [facility], severe diverticular dz, repeat 10 years. mg Hypocalcemia Asthma Allergic rhinitis Abnormal mammogram of right breast Degenerative joint disease Hyperlipidemia Pericarditis Eczema Chest wall pain Insomnia Sciatica, left side Surgical History 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) History of bone marrow biopsy S/P thyroidectomy H/O: hysterectomy Tonsillectomy Social History (Updated 05/15/25 @ 15:39 by Daniel Hinkle) Smoking/Tobacco Use Status: Former Tobacco Use Quit Date: 08/14/99 Smoking risk assessment performed?: Yes Alcohol Intake: current Alcohol Intake frequency: a few times a week Alcohol type: beer and wine Drug use: Never Substance use type: does not use Household members: none Housing: house Current gender identity: female Do you feel safe at home: Yes Do you feel safe in your relationship?: Yes Additional Social history: Lives alone, formerly cared for older man who in 2024. 2 cats. no travel.
--- NOTE | 2025-05-16 09:02 | W.PC.ACHO ---
Registration Status: ADM IN Primary Language: Preferred Language: Azeri ED Information & Data Chief Complaint GenMedical 05/15/25 06:10 Chief Complaint GenMedical 05/15/25 05:45 Triage Note arrives via POV from home, c 05/15/25 05:37 /o severe bilateral leg swelling and pain in R leg. swelling has been ongoing for weeks. pain in leg started around 1am today. Feels SOB at rest. denies cardiac history. took tylenol around 3am. reports amyloidosis. 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) History of bone marrow biopsy S/P thyroidectomy H/O: hysterectomy Tonsillectomy Most Recent Vital Signs Temperature 38.2 C H 05/16/25 04:27 Temperature Source Core 05/16/25 02:40 Pulse 70 05/15/25 23:12 Pulse Rhythm Regular 05/15/25 13:20 Pulse 85 05/15/25 12:20 Respiratory Rate 20 05/15/25 23:12 Respiratory Effort Accessory Muscle Use 05/16/25 02:40 Respiratory Depth Deep 05/16/25 02:40 Respiratory Pattern Tachypnea 05/16/25 02:40 Blood Pressure 100/56 L 05/15/25 23:12 Blood Pressure Mean 70 05/15/25 23:12 Blood Pressure Position Sitting 05/15/25 06:10 Pulse Oximetry 96 05/16/25 02:40 Oxygen Delivery Method Room Air 05/16/25 02:40 Oxygen Flow Rate 0 05/16/25 02:40 Pain Level 7 05/16/25 04:27 Allergies No Known Allergies Allergy (Verified 04/18/25 08:32) Precautions Isolation Standard precaution 05/15/25 06:10 Active Medications Generic Name Dose Route Start Last Admin Trade Name Freq PRN Reason Stop Dose Admin Acetaminophen 650 mg 05/15/25 11:24 05/15/25 13:04 Acetaminophen 325 Mg Tab PO 650 mg Q4H PRN PRN Administration Calcium Carbonate 1.25 gm 05/15/25 14:00 05/15/25 20:45 Calcium Carbonate 1.25 Gm Tab PO 1.25 gm TID WILLIE Administration Levothyroxine Sodium 150 mcg 05/15/25 22:00 05/15/25 21:07 Levothyroxine 150 Mcg Tab PO 150 mcg DAILY@2200 WILLIE Administration Mometasone Furoate 1 puff 05/16/25 08:30 05/16/25 08:20 Mometasone 220 Mcg 14 Dose Inhaler IH 1 inh DAILY WILLIE Administration Oxycodone HCl 5 mg 05/15/25 11:31 05/16/25 04:27 Oxycodone 5 Mg Tab PO 5 mg Q4H PRN PRN Administration Polyethylene Glycol 17 gm 05/15/25 11:24 05/15/25 21:07 Polyethylene Glycol 3350 17 Gm Packet PO 17 gm DAILY PRN PRN Administration Constipation Pramipexole Dihydrochloride 0.25 mg 05/15/25 20:00 05/15/25 20:50 Pramipexole 0.25 Mg Tab PO 0.25 mg QPM WILLIE Administration Simvastatin 40 mg 05/15/25 20:00 05/15/25 20:50 Simvastatin 20 Mg Tab PO 40 mg HS WILLIE Administration Sodium Chloride 0 ml 05/15/25 06:16 05/16/25 01:22 Normal Saline Flush 10 Ml Syr IVP 20 ml PRN PRN Administration Sodium Chloride 0 ml 05/15/25 08:30 05/15/25 20:50 Normal Saline Flush 10 Ml Syr IVP 10 ml BID WILLIE Administration IV IV Catheter Type [] right IJ IV Catheter Type [] Saline Lock IV Catheter Type [Right Saline Lock Antecubital] IV Catheter Gauge [] 20 IV Catheter Gauge [Right 18 Antecubital] Diagnostics 05/16/25 05/16/25 05/16/25 Range/Units 22:00 17:00 09:00 WBC (4.4-10.8) 10^3/uL RBC (3.93-5.22) 10^6/uL Hgb (11.2-15.7) g/dL Hct (36.0-46.0) % MCV (80-95) fL MCH (27.0-33.0) pg MCHC (32.0-36.0) % RDW (11.7-14.6) % Plt Count (130-400) 10^3/uL MPV (8.0-11.0) fL Immature Gran % % Neutrophils % % Band Neutrophils % % Lymphocytes % % Monocytes % % Eosinophils % % Basophils % % Metamyelocytes % Nucleated RBC % (0.0-0.3) % Absolute Neutrophils (1.2-6.7) 10^3/uL Absolute Lymphocytes (1.2-3.4) 10^3/uL Absolute Monocytes (0.1-0.8) 10^3/uL Absolute Eosinophils (0.0-0.7) 10^3/uL Absolute Basophils (0.0-0.2) 10^3/uL RBC Morphology PT (9.1-11.1) sec INR (0.9-1.1) APTT (20.6-30.2) sec ABG Sample Site ABG pH (7.35-7.45) ABG pCO2 (35-45) mmHg ABG pO2 (80-105) mmHg ABG HCO3 (22-26) mmol/L ABG Total CO2 (23-27) mmol/L ABG O2 Saturation (95-98) % ABG Base Excess (-2-3) mmol/L VBG Lactate (<or=2.0) mmol/L Oxygen Liter Flow L Sodium (136-145) mmol/L Potassium (3.5-5.1) mmol/L Chloride (98-107) mmol/L Carbon Dioxide (21.0-32.0) mmol/L Anion Gap (3-11) mmol/L BUN (7-18) mg/dL Creatinine (0.55-1.02) mg/dL Est GFR (CKD-EPI 2020) (mL/min/1.73m2) Glucose (74-106) mg/dL Calcium Pending Pending (8.5-10.1) mg/dL Total Bilirubin (0.2-1.0) mg/dL AST (15-37) U/L ALT (14-59) U/L Alkaline Phosphatase (46-116) U/L Troponin I (<or=51) ng/L C-Reactive Protein (<or=0.5) mg/dL NT-Pro-B Natriuret Pep (<300) pg/mL Total Protein (6.4-8.2) g/dL Albumin (3.4-5.0) g/dL 25-OH Vitamin D Total (30-100) ng/mL Procalcitonin ng/mL PTH Intact Urine Color (Yellow) Urine Clarity (Clear) Urine pH (5-8) Ur Specific Huggins (1.005-1.025) Urine Protein (Neg-Trace) mg/dL Urine Ketones (Negative) mg/dL Urine Blood (Negative) Urine Nitrite (Negative) Urine Bilirubin (Negative) Urine Urobilinogen (Up to 0.2) mg/dL Ur Leukocyte Esterase (Negative) Urine RBC (0-2) HPF Urine WBC (0-5) HPF Ur Epithelial Cells (Negative) HPF Urine Crystals (Negative) HPF Urine Bacteria (Negative) HPF Urine Casts (Negative) LPF Urine Mucus (Negative) Ur Culture Indicated? Urine Glucose (Negative) mg/dL Random Vancomycin Pending 05/16/25 05/16/25 05/16/25 Range/Units 05:26 02:00 01:54 WBC 12.64 H 13.73 H (4.4-10.8) 10^3/uL RBC 2.73 L 2.84 L (3.93-5.22) 10^6/uL Hgb 7.7 L 8.0 L (11.2-15.7) g/dL Hct 23.9 L 25.0 L (36.0-46.0) % MCV 88 88 (80-95) fL MCH 28.2 28.2 (27.0-33.0) pg MCHC 32.2 32.0 (32.0-36.0) % RDW 17.7 H 17.8 H (11.7-14.6) % Plt Count 249 311 (130-400) 10^3/uL MPV 9.1 9.5 (8.0-11.0) fL Immature Gran % 0.0 % Neutrophils % 87.0 % Band Neutrophils % 1 % Lymphocytes % 3.0 % Monocytes % 6.0 % Eosinophils % 0.0 % Basophils % 0.0 % Metamyelocytes % 3 Nucleated RBC % 0.1 (0.0-0.3) % Absolute Neutrophils 12.08 H (1.2-6.7) 10^3/uL Absolute Lymphocytes 0.41 L (1.2-3.4) 10^3/uL Absolute Monocytes 0.82 H (0.1-0.8) 10^3/uL Absolute Eosinophils 0.00 (0.0-0.7) 10^3/uL Absolute Basophils 0.00 (0.0-0.2) 10^3/uL RBC Morphology Normal PT 15.1 H (9.1-11.1) sec INR 1.5 H (0.9-1.1) APTT 26.8 (20.6-30.2) sec ABG Sample Site ABG pH (7.35-7.45) ABG pCO2 (35-45) mmHg ABG pO2 (80-105) mmHg ABG HCO3 (22-26) mmol/L ABG Total CO2 (23-27) mmol/L ABG O2 Saturation (95-98) % ABG Base Excess (-2-3) mmol/L VBG Lactate 3.9 H* (<or=2.0) mmol/L Oxygen Liter Flow L Sodium 143 141 (136-145) mmol/L Potassium 4.6 4.7 (3.5-5.1) mmol/L Chloride 106 105 (98-107) mmol/L Carbon Dioxide 21.4 22.5 (21.0-32.0) mmol/L Anion Gap 15.6 H 13.5 H (3-11) mmol/L BUN 44 H 40 H (7-18) mg/dL Creatinine 2.5 H 2.5 H D (0.55-1.02) mg/dL Est GFR (CKD-EPI 2020) 21.08 21.08 (mL/min/1.73m2) Glucose 84 82 (74-106) mg/dL Calcium 6.3 L* 6.0 L* (8.5-10.1) mg/dL Total Bilirubin 0.4 (0.2-1.0) mg/dL AST 24 (15-37) U/L ALT 16 (14-59) U/L Alkaline Phosphatase 84 (46-116) U/L Troponin I 28 (<or=51) ng/L C-Reactive Protein > 25.00 H (<or=0.5) mg/dL NT-Pro-B Natriuret Pep > 86884 H (<300) pg/mL Total Protein 5.0 L (6.4-8.2) g/dL Albumin 2.3 L (3.4-5.0) g/dL 25-OH Vitamin D Total 49 (30-100) ng/mL Procalcitonin 118.64 ng/mL PTH Intact Pending Urine Color Yellow (Yellow) Urine Clarity Sl Cloudy (Clear) Urine pH 5.5 (5-8) Ur Specific Huggins 1.020 (1.005-1.025) Urine Protein >=300 H (Neg-Trace) mg/dL Urine Ketones Negative (Negative) mg/dL Urine Blood Large H (Negative) Urine Nitrite Negative (Negative) Urine Bilirubin Negative (Negative) Urine Urobilinogen 0.2 (Up to 0.2) mg/dL Ur Leukocyte Esterase Small H (Negative) Urine RBC 20-50 H (0-2) HPF Urine WBC 10-20 H (0-5) HPF Ur Epithelial Cells Few (Negative) HPF Urine Crystals Negative (Negative) HPF Urine Bacteria Few (Negative) HPF Urine Casts Negative (Negative) LPF Urine Mucus Negative (Negative) Ur Culture Indicated? C&S Done As Ordered Urine Glucose Negative (Negative) mg/dL Random Vancomycin 05/16/25 05/15/25 Range/Units 01:25 06:05 WBC (4.4-10.8) 10^3/uL RBC (3.93-5.22) 10^6/uL Hgb (11.2-15.7) g/dL Hct (36.0-46.0) % MCV (80-95) fL MCH (27.0-33.0) pg MCHC (32.0-36.0) % RDW (11.7-14.6) % Plt Count (130-400) 10^3/uL MPV (8.0-11.0) fL Immature Gran % % Neutrophils % % Band Neutrophils % % Lymphocytes % % Monocytes % % Eosinophils % % Basophils % % Metamyelocytes % Nucleated RBC % (0.0-0.3) % Absolute Neutrophils (1.2-6.7) 10^3/uL Absolute Lymphocytes (1.2-3.4) 10^3/uL Absolute Monocytes (0.1-0.8) 10^3/uL Absolute Eosinophils (0.0-0.7) 10^3/uL Absolute Basophils (0.0-0.2) 10^3/uL RBC Morphology PT (9.1-11.1) sec INR (0.9-1.1) APTT (20.6-30.2) sec ABG Sample Site Right Radial ABG pH 7.41 (7.35-7.45) ABG pCO2 30 L (35-45) mmHg ABG pO2 117 H (80-105) mmHg ABG HCO3 19 L (22-26) mmol/L ABG Total CO2 18 L (23-27) mmol/L ABG O2 Saturation (95-98) % ABG Base Excess -6 L (-2-3) mmol/L VBG Lactate (<or=2.0) mmol/L Oxygen Liter Flow 3 L Sodium (136-145) mmol/L Potassium (3.5-5.1) mmol/L Chloride (98-107) mmol/L Carbon Dioxide (21.0-32.0) mmol/L Anion Gap (3-11) mmol/L BUN (7-18) mg/dL Creatinine (0.55-1.02) mg/dL Est GFR (CKD-EPI 2020) (mL/min/1.73m2) Glucose (74-106) mg/dL Calcium (8.5-10.1) mg/dL Total Bilirubin (0.2-1.0) mg/dL AST (15-37) U/L ALT (14-59) U/L Alkaline Phosphatase (46-116) U/L Troponin I (<or=51) ng/L C-Reactive Protein (<or=0.5) mg/dL NT-Pro-B Natriuret Pep 83323 H (<300) pg/mL Total Protein (6.4-8.2) g/dL Albumin (3.4-5.0) g/dL 25-OH Vitamin D Total (30-100) ng/mL Procalcitonin ng/mL PTH Intact Urine Color (Yellow) Urine Clarity (Clear) Urine pH (5-8) Ur Specific Huggins (1.005-1.025) Urine Protein (Neg-Trace) mg/dL Urine Ketones (Negative) mg/dL Urine Blood (Negative) Urine Nitrite (Negative) Urine Bilirubin (Negative) Urine Urobilinogen (Up to 0.2) mg/dL Ur Leukocyte Esterase (Negative) Urine RBC (0-2) HPF Urine WBC (0-5) HPF Ur Epithelial Cells (Negative) HPF Urine Crystals (Negative) HPF Urine Bacteria (Negative) HPF Urine Casts (Negative) LPF Urine Mucus (Negative) Ur Culture Indicated? Urine Glucose (Negative) mg/dL Random Vancomycin 05/16/25 02:00 Blood Culture - Pending Blood 05/16/25 01:54 Urine Culture - Pending Urine - Cath Prince Indwelling 05/15/25 08:20 Blood Culture - Pending Blood 05/15/25 08:00 Blood Culture - Pending Blood [id number] Documentation Fingerstick Glucose Start: 05/16/25 02:27 Freq: NOW Status: Complete Protocol: Activity Type Activity Date Activity User E-sign Co-sign Detail Recorded Client Recorded Date Recorded By Document 05/16/25 07:41 KORYG DAMADION [id number] 05/16/25 07:42 BKG DAEMON(2) Intake and Output - 24 Hour Total 05/15/25 05:36 thru 05/16/25 08:18 Intake Total 1310 Output Total 100 Balance 1210 Weight 99.2 kg Intake: IV 1010 Oral 300 Output: Stool 100 Other: Comment pt transferred to the commode but no void Stool Size Small Stool Characteristics Liquid [place] Risk Assessment History of Falls No History 05/15/25 13:20 Contributing Factors Impairments 05/15/25 13:20 Ambulatory Aids Uses ambulatory device + 05/15/25 13:20 Tubes/Lines None 05/15/25 13:20 Gait Evaluation W/no contributing factors 05/15/25 13:20 Cognition No cognitive impairment 05/15/25 13:20 Fall Total Score 43 05/15/25 13:20 Level of Risk Moderate Risk 05/15/25 13:20 Problems (Last Reviewed 05/15/25 @ 13:27 by Daniel Hinkle) Temporary central venous catheter in place (Acute) Cellulitis of leg, right (Acute) Hypocalcemia (Acute) Microcytic anemia (Acute) Hyperglycemia, drug-induced (Acute) Lupus nephritis (Acute) On deep vein thrombosis (DVT) prophylaxis (Acute) v v v v v v v v v Sending and/or Receiving Nurses: Please use comment section below to note any information pertinent to the patient hand-off not included above. Information / Comments: Report received from: Ynes Still RN
[2025-05-16] MEDS: Enoxaparin 30 MG/0.3 ML SYR SC (09:14)
[2025-05-16] MEDS: Gabapentin 300 MG CAP PO ×2 (09:15→20:04)
[2025-05-16] MEDS: Ergocalciferol 50000 UNITS CAP PO (09:15)
[2025-05-16] MEDS: Aspirin E.C. 81 MG TABEC PO (09:15)
[2025-05-16] MEDS: Magnesium Oxide 400 MG TAB PO (09:15)
[2025-05-16] MEDS: Hydroxychloroquine 200 MG TAB PO (09:15)
[2025-05-16 10:09] LABS: Calcium 6.2 mg/dL (8.5-10.1)
--- NOTE | 2025-05-16 11:43 | PHA.REVIEW2 ---
Pharmacy Admission Review Admission Clinical Review Admission Pharmacy Review: Temporary central venous catheter in place (Acute) Cellulitis of leg, right (Acute) Hypocalcemia (Acute) Microcytic anemia (Acute) Hyperglycemia, drug-induced (Acute) Lupus nephritis (Acute) On deep vein thrombosis (DVT) prophylaxis (Acute) No Known Allergies Allergy (Verified 04/18/25 08:32) Resuscitation Status Full Code Height 5 ft 5 in Weight 99.2 kg Comments Comments/Follow Ups: Follow up on home med question Pharmacy Admission Review Renal Dosing Renal Dosing: BUN 44 mg/dL (7-18) H 40 mg/dL (7-18) H 29 mg/dL (7-18) H 05/16/25 05:26 05/16/25 02:00 05/15/25 06:05 Creatinine 2.5 mg/dL (0.55-1.02) H 2.5 mg/dL (0.55-1.02) H 1.4 mg/dL (0.55-1.02) H 05/16/25 05:26 05/16/25 02:00 05/15/25 06:05 Medications needing adjustments: Intervened (CrCl 26.86 mL/min) List of meds needing interventions: Changed enoxaparin from 40mg daily to 30mg daily (provider aware) and changed cefepime from 1g q8h to 1g q12h (provider aware). Recommendations sent to provider: gabapentin 400mg BID to 300mg BID and oxycodone q4h to q8h. Provider changed gabapentin but would like to be oxycodone order as is for now - titrated to effect, unless she is maxing out then I can change to fentanyl or hydronic Anticoagulation Anticoagulation: Hgb 7.7 g/dL (11.2-15.7) L 8.0 g/dL (11.2-15.7) L 8.6 g/dL (11.2-15.7) L 05/16/25 05:26 05/16/25 02:00 05/15/25 06:05 Hct 23.9 % (36.0-46.0) L 05/16/25 05:26 Plt Count 249 10^3/uL (130-400) 05/16/25 05: INR 1.5 (0.9-1.1) H 05/16/25 05:26 Creatinine 2.5 mg/dL (0.55-1.02) H 05/16/25 05:26 DVT Prophylaxis: Intervened (had active order for 40mg daily and pending order for 40mg BID. Reached out to provider and ended up changing to 30mg daily due to renal function) Medications: Enoxaparin (30mg daily - CrCl < 30) Opiate Usage Evaluate Pain Scale/Pains Meds: Reviewed (oxycodone 5mg q4h PRN - 20mg / 24hrs) Scheduled Bowel Reg ordered if on Opiates?: No (PRN Miralax) Relevant Labs Relevant Labs: Sodium 143 mmol/L (136-145) 05/16/25 05:26 Potassium 4.6 mmol/L (3.5-5.1) 05/16/25 05:26 Chloride 106 mmol/L (98-107) 05/16/25 05:26 Magnesium 2.2 mg/dL (1.8-2.4) 05/15/25 06:05 C-Reactive Protein > 25.00 mg/dL (<or=0.5) H 05/16/25 02:00 Electrolytes, C-Reactive P, ESR: Reviewed Cardiac Review Cardiac Review: Troponin I 28 ng/L (<or=51) 05/16/25 02:00 NT-Pro-B Natriuret Pep > 16206 pg/mL (<300) H 05/16/25 02:00 Blood Pressure 97/53 0931 Blood Pressure 114/63 0916 Blood Pressure 106/55 0901 Blood Pressure 103/55 0846 Blood Pressure 96/58 0831 Blood Pressure 116/55 0816 Blood Pressure 102/57 0802 Blood Pressure 115/51 0746 Blood Pressure 106/60 0731 Blood Pressure 113/57 0716 Blood Pressure 115/59 0701 BP, HR, EF%: Reviewed (HR WNL) QTc Review QTc: Reviewed (514 from 05/15/25) List meds needing interventions: Current meds are okay - provider aware of prolonged QTc IV to PO Switch IV Medications: Reviewed (acetaminophen, cefepime, hydrocortisone and vancomycin) Home Meds Home Med List reviewed: Intervened Relevent Home Meds Not ordered & why?: Arnuity (substituted with mometasone per pharmacy protocol), amlodipine (on hold - confirmed with provider), labetalol (on hold - confirmed with provider), furosemide (listed as not taking on home med list) Bactrim was ordered and then canceled. Asked provider today if that was being held, provider asked that the order be resumed as patient should be on it. Asked nurse what days of week patient takes vitamin D - Monday, Monday and Fridays Asked nurse if patient takes sevelamer or sodium bicarbonate at home as both were recently filled. Waiting to hear back Current Meds Current Medication Order Review: Intervened Comments: Discontinued duplicate acetaminophen order Pharmacy Antibiotic Review Relevant Labs: Relevant Labs 05/16/25 02:00 C-Reactive Protein > 25.00 H Procalcitonin 118.64 WBC 12.64 10^3/uL (4.4-10.8) H 05/16/25 05:26 Procalcitonin 118.64 ng/mL 05/16/25 02:00 Temperature 36.8 C 05/16/25 0802 Temperature 38.2 C 05/16/25 0427 Temperature 38.6 C 05/16/25 0240 Microbiology 05/15/25 08:20 Blood Culture - Preliminary Blood NO GROWTH 24 HOURS 05/15/25 08:00 Blood Culture - Preliminary Blood NO GROWTH 24 HOURS Pharmacy Antibiotic Activity: C/S review and Renal function adjustment (cefepime q8h to q12h) Comments: Patient is on cefepime and vancomycin, day 1, for cellulitis/sepsis. Patient received a loading dose of 1500mg vancomycin. Put in order for 1000mg q24h with predicted trough of 19.7 and AUC of 574. Ordered level for tomorrow morning prior to next dose due to change in renal function. WBC increased from 8.29 and urine culture pending. Comments Comments/Follow Ups: Follow up on home med question
--- NOTE | 2025-05-16 11:54 | W.SURGCON ---
Date of service: 05/16/25 Time of Service: 11:55 Assessment and Plan Assessment and plan (1) Cellulitis of leg, right: Status: Acute Assessment and plan: Patient is a 65-year-old female with multiple medical comorbidities including history of cutaneous amyloidosis and chronic, nonhealing lower extremity wounds who presented to the ED with increased lower extremity swelling and pain in her right lower extremity. She was admitted to the hospitalist service and continued on antibiotics. General surgery was consulted given her right lower extremity wounds. On evaluation today she has profound bilateral lower extremity edema and minimal scattered erythema of the right denson. She has 2 wounds on her right upper extremity 1 at the medial aspect of the ankle and 1 at the posterior lateral aspect of the lower extremity. The wound at the posterior lateral aspect has some evidence of overlying necrotic tissue. This wound was debrided sharply at the bedside down to more healthy appearing subcutaneous tissue. This was limited by the patient's ability to tolerate further debridement. There is no indication at this point for operative intervention at this point or need for further imagine. Would recommend ongoing enzymatic debridement with collagenase BID. These wound care instructions were placed. Also would recommend evaluation by Vascular Surgery given potential venous component of wounds and Dermatology given history of cutaneous amyloid. These evaluations can likely occur as outpatient pending clinical improvement during this hospitalization. (2) Leg wound, right: Status: Acute (3) Cutaneous amyloidosis: Status: Acute History of Present Illness Narrative: Patient is a 65-year-old female with multiple medical comorbidities including history of cutaneous amyloidosis and chronic, nonhealing lower extremity wounds who presented to the ED with increased lower extremity swelling and pain in her right lower extremity. She notes that she has had chronic nonhealing wounds of mainly her right lower extremity for many years. She states that she was previously evaluated by dermatology at [facility]. She was being followed in the general surgery office for her right lower extremity wounds however given her history she was referred to vascular surgery and dermatology at [facility]. She notes that the right posterior lateral wound has been present for around 3 months. She states she has been trying to keep these wounds cleaned at home but this has been difficult. She has not seen anyone for her right lower extremity room recently. She notes that she did have some increased pain and swelling of her right lower extremity. She currently denies fevers, chills, nausea, vomiting. She states that she has been instructed to apply compression to her lower extremities but has been unable to tolerate this at home. She has been home prednisone since her most recent hospital admission at [facility]. Review of Systems Constitutional Constitutional: Denies chills, Denies fever(s), Denies headache(s) and Denies weakness Eyes Eyes: Denies change in vision ENT Ears, Nose, Mouth, and Throat: Denies dizziness, Denies headache(s), Denies nasal congestion and Denies sore throat Cardiovascular Cardiovascular: Denies chest pain and Denies dyspnea Respiratory Respiratory: Denies dyspnea Gastrointestinal Gastrointestinal: Denies abdominal pain, Denies nausea and Denies vomiting Musculoskeletal Musculoskeletal: Denies arthralgias, Denies muscle weakness and Denies numbness Integumentary/Breasts Skin/Breast: Denies new lesions Neurologic Neurologic: Denies dizziness, Denies headache(s), Denies numbness and Denies weakness PFSH All Active Problems (Updated 05/16/25 @ 05:20 by Zander Rees MD) Temporary central venous catheter in place (Acute) Pain in right leg (Acute) Cellulitis of leg, right (Acute) Hypocalcemia (Acute) Microcytic anemia (Acute) Hyperglycemia, drug-induced (Acute) Hyperkalemia (Acute) Hypokalemia (Acute) Lupus nephritis (Acute) On deep vein thrombosis (DVT) prophylaxis (Acute) Acute exacerbation of CHF (congestive heart failure) (Acute) Acute kidney injury superimposed on CKD (Acute) Hematuria (Acute) GAVIN (acute kidney injury) (Acute) Mild peripheral edema (Acute) CHF (congestive heart failure) (Chronic) Cutaneous amyloidosis (Acute) Leg wound, right (Acute) Chronic wound (Acute) Left knee DJD (Chronic) Depo-medrol injection: 02/27/25; 11/28/2024; 08/29/24; 05/30/2024; 02/26/2024; 11/27/2023; 08/17/23 Headache (Acute) Urinary tract infection (Acute) Colovaginal fistula (Acute) Diverticulitis of sigmoid colon (Acute) Amyloidosis (Chronic) Herniated nucleus pulposus, lumbar (Chronic) Antiphospholipid syndrome (Chronic) Trigger thumb of right hand (Acute) Trigger thumb of left hand (Chronic) Nasal vestibulitis (Acute 11/02/17) Nasal congestion (Acute 06/19/14) Deviated nasal septum (Acute 06/19/14) Cephalgia (Acute 11/20/14) Constipation (Chronic) as above HTN (hypertension) (Chronic) GERD (gastroesophageal reflux disease) (Chronic) stable Lupus (Chronic) Medical History Lupus (systemic lupus erythematosus) Hypertension Primary localized cutaneous amyloidosis Cellulitis of right lower limb Lymphocytopenia Normal colonoscopy [place] 11/13/[address] Natalya Styles at [facility], severe diverticular dz, repeat 10 years. mg Hypocalcemia Asthma Allergic rhinitis Abnormal mammogram of right breast Degenerative joint disease Hyperlipidemia Pericarditis Eczema Chest wall pain Insomnia Sciatica, left side Surgical History 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) History of bone marrow biopsy S/P thyroidectomy H/O: hysterectomy Tonsillectomy Social History (Updated 05/15/25 @ 15:39 by Daniel Hinkle) Smoking/Tobacco Use Status: Former Tobacco Use Quit Date: 08/14/99 Smoking risk assessment performed?: Yes Alcohol Intake: current Alcohol Intake frequency: a few times a week Alcohol type: beer and wine Drug use: Never Substance use type: does not use Household members: none Housing: house Current gender identity: female Do you feel safe at home: Yes Do you feel safe in your relationship?: Yes Additional Social history: Lives alone, formerly cared for older man who in 2024. 2 cats. no travel. Exam Narrative Exam Narrative: General: No acute distress. Skin: Good turgor HEENT: Normocephalic, atraumatic, no visible masses CV: Regular rate Lungs: Bilateral equal chest rise, non-labored breathing Abdomen: Non-distended Extremities: Warm, well perfused, bilateral lower extremity edema to level of knee, right lower extremity with posterior lateral wound with overlying necrotic tissue, right lower extremity medial wound with overlying slough, minimal erythema to anterior aspect of right denson, serous drainage from RLE wounds, no open wounds of left lower extremity Neurologic: No focal deficits Psychiatric: Alert and oriented, normal mood and affect Results Last Vital Signs Temp 36.8 C 05/16/25 08:02 Pulse 70 05/16/25 09:31 Resp 14 05/16/25 10:20 BP 97/53 L 05/16/25 09:31 Pulse Ox 97 05/16/25 09:40 Labs 05/16/25 05:26 05/16/25 05:26 Labs: Laboratory Results - last 24 hr 05/15/25 05/16/25 05/16/25 06:05 01:25 01:54 WBC RBC Hgb Hct MCV MCH MCHC RDW Plt Count MPV Immature Gran % Neutrophils % Band Neutrophils % Lymphocytes % Monocytes % Eosinophils % Basophils % Metamyelocytes % Nucleated RBC % Absolute Neutrophils Absolute Lymphocytes Absolute Monocytes Absolute Eosinophils Absolute Basophils RBC Morphology PT INR APTT ABG Sample Site Right Radial ABG pH 7.41 ABG pCO2 30 L ABG pO2 117 H ABG HCO3 19 L ABG Total CO2 18 L ABG O2 Saturation ABG Base Excess -6 L VBG Lactate Oxygen Liter Flow 3 Sodium Potassium Chloride Carbon Dioxide Anion Gap BUN Creatinine Est GFR (CKD-EPI 2020) Glucose Calcium Total Bilirubin AST ALT Alkaline Phosphatase Troponin I C-Reactive Protein NT-Pro-B Natriuret Pep 68819 H Total Protein Albumin 25-OH Vitamin D Total Procalcitonin Urine Color Yellow Urine Clarity Sl Cloudy Urine pH 5.5 Ur Specific [place] 1.020 Urine Protein >=300 H Urine Ketones Negative Urine Blood Large H Urine Nitrite Negative Urine Bilirubin Negative Urine Urobilinogen 0.2 Ur Leukocyte Esterase Small H Urine RBC 20-50 H Urine WBC 10-20 H Ur Epithelial Cells Few Urine Crystals Negative Urine Bacteria Few Urine Casts Negative Urine Mucus Negative Ur Culture Indicated? C&S Done As Ordered Urine Glucose Negative 05/16/25 05/16/25 05/16/25 02:00 05:26 09:00 WBC 13.73 H 12.64 H RBC 2.84 L 2.73 L Hgb 8.0 L 7.7 L Hct 25.0 L 23.9 L MCV 88 88 MCH 28.2 28.2 MCHC 32.0 32.2 RDW 17.8 H 17.7 H Plt Count 311 249 MPV 9.5 9.1 Immature Gran % 0.0 Neutrophils % 87.0 Band Neutrophils % 1 Lymphocytes % 3.0 Monocytes % 6.0 Eosinophils % 0.0 Basophils % 0.0 Metamyelocytes % 3 Nucleated RBC % 0.1 Absolute Neutrophils 12.08 H Absolute Lymphocytes 0.41 L Absolute Monocytes 0.82 H Absolute Eosinophils 0.00 Absolute Basophils 0.00 RBC Morphology Normal PT 15.1 H INR 1.5 H APTT 26.8 ABG Sample Site ABG pH ABG pCO2 ABG pO2 ABG HCO3 ABG Total CO2 ABG O2 Saturation ABG Base Excess VBG Lactate 3.9 H* Oxygen Liter Flow Sodium 141 143 Potassium 4.7 4.6 Chloride 105 106 Carbon Dioxide 22.5 21.4 Anion Gap 13.5 H 15.6 H BUN 40 H 44 H Creatinine 2.5 H D 2.5 H Est GFR (CKD-EPI 2020) 21.08 21.08 Glucose 82 84 Calcium 6.0 L* 6.3 L* 6.2 L* Total Bilirubin 0.4 AST 24 ALT 16 Alkaline Phosphatase 84 Troponin I 28 C-Reactive Protein > 25.00 H NT-Pro-B Natriuret Pep > 95081 H Total Protein 5.0 L Albumin 2.3 L 25-OH Vitamin D Total 49 Procalcitonin 118.64 Urine Color Urine Clarity Urine pH Ur Specific [place] Urine Protein Urine Ketones Urine Blood Urine Nitrite Urine Bilirubin Urine Urobilinogen Ur Leukocyte Esterase Urine RBC Urine WBC Ur Epithelial Cells Urine Crystals Urine Bacteria Urine Casts Urine Mucus Ur Culture Indicated? Urine Glucose
--- NOTE | 2025-05-16 12:08 | W.PM.PROGNOT ---
Date of Service Date of service: 05/16/25 Time of Service: 12:08 Assessment and Plan Assessment and plan (1) Severe sepsis: Status: Acute Assessment and plan: Developed sepsis picture with fever, WBC elevation, hypotension overnight wiht organ dysfunction as evident by GAVIN on CKD She has stabilized clinically, did not need pressers. continue close monitoring in ICU for now. Continue cefepime/vanco and stress dose steroids for now, but step down dose. I'm not sure if adrenal insufficiency playing a role, no cortisol done but would not have been clear as she has been on prednisone 40mg daily, she will need a steroid taper anyways. Lactate up overnight, repeat to confirm imrpovement. see below. (2) Cellulitis of leg, right: Status: Acute Assessment and plan: Rapidly progressing symptoms in setting of immune suppression. Sepsis developing overnight despite cefazolin, now on cefepime and vancomycin Blood cultures pending. Nares MRSA+, but this doesn't tell us much about the distal infeciton, but will certainly continue to cover MRSA. Appreciate surgical input and some debridement. Continue wound care. Get vascular assessment, start with TBIs, consult podiatry for this. She has known amyloid in the area, increases risk of poor healing, but the acute issue is infectious. (3) Chronic ulcer of right leg: Status: Acute Assessment and plan: source of infection as above, appreciate surgical help. complicated by local amyloid. see above. wound care. (4) Hypocalcemia: Status: Acute Assessment and plan: A/w prolonged QTc, so treated appropriately with IV calcium with imrpovement. She has known low PTH a/w thyroid surgery in the past. Likely worse this admission related to worse hyperphosphatemia with recent renal failure, though kidney function had improved. She had tetany per RN description a/w sepsis picture last night. Also runs of VTAC. Given this, I will start IV infusion of calcium gluconate over the next 20 hours, d/w pharmacy. Monitor on telemetry, increase oral calcium supplement, with vitamin D for better absorption. Giving this with meals will also function as phosphate binder. PTH and vitamin D levels pending. (5) Cryoglobulinemic glomerulonephritis: Status: Acute Assessment and plan: Not Lupus Nephritis. Recent diagnosed s/p biopsy, treated with prednisone. Renal function at CKD3a level now, close to baseline, much improved on steroids. continue prednisone pending plan from Dr. Rolle from [facility] nephrology, she is considering transition to rituximab and taper of steroids, she will get in touch with team Monday Continue PJP prophylaxis with 3xWeek TMP/SMX as well unitl off steroids, monitor potassium. (6) Acute kidney injury superimposed on CKD: Status: Acute Assessment and plan: Glomerulonephritis was improving on steroids started on recent admission I think the bump today is pre-renal on top of the intrinsic disease. She has stabilized clinically. I would expect this to improve with supportive care. U/o good 05/16 so far (7) Hyperglycemia, drug-induced: Status: Acute Assessment and plan: A/w steroids, recent [place] [facility] [place] at 5.3%. Monitoring glucose, but if they remain below 180 we can stop this. (8) Microcytic anemia: Status: Acute Assessment and plan: chornic, follow. Iron levels 04/23 were normal. This is likely chronic disease and renal and some blood loss. (9) CHF (congestive heart failure): Status: Chronic Assessment and plan: BNaP up with acute illness, but had echo a month ago with good valve function and normal LVEF. Monitor clinically, consider repeat echo if cultures positive with MRSA or other concerning pathogen or if she clinically becomes unstable (10) Lupus (systemic lupus erythematosus): Assessment and plan: This has been stable on hydroxycholoroquine. Case reviewed with [facility] rheumatology fellow. No change in management. (11) On deep vein thrombosis (DVT) prophylaxis: Status: Acute Assessment and plan: u/s negative for VTE, on exoxaparin for prophylaxis Known hypercoagulable state, but had hemorrhagic pericardial effusion while on full anticoagulation with warfarin. Subjective Subjective Patient reports: voiding w/o difficulty; denies diarrhea, vomiting, shortness of breath or fever Interval history since last seen: Events: Noted to be confused in evening, hypotensive. Was given bolus, stress dose steroids, Abx expanded to cefepime and vanco, transferred to ICU Also noted to have some tetany, additional gram calcium gluconate given Surgery placed central line. Surgery consulted this morning for debridement 7 beats of VTAC around 8:45pm, no symptoms She feels okay this morning. She doesn't remember everything that happened last night, but her mind feels clear this morning. She denies fever (had rectal Tm 38.6 at 2:40am). She was able to eat some this morning. Her right leg still hurts. Exam Narrative Exam Narrative: GEN: Alert and oriented x 4 (everything but day of week), does not appear toxic or in acute distress at rest. LUNGS: CTAB with normal effort CV: RRR with 3/6 systolic murmur. No gallops, or rubs. ABD: active bowel sounds, soft, nontender and nondistended. No masses. EXT: no cyanosis, clubbing. 1-2+ kylah pitting edema to thighs. SKIN: scattered bruises. sclerotic patches kylah shins (old amyloid), right leg raysa kylah ~3cm open ulcerations with whitish bases over maleoli, left clean, right is draining and wet. red and tender up around anterior denson but no crepitus. PSYCH: normal mood and affect, normal thought process. Objective Last Vital Signs Temp 36.8 C 05/16/25 08:02 Pulse 70 05/16/25 09:31 Resp 14 05/16/25 10:20 BP 97/53 L 05/16/25 09:31 Pulse Ox 97 05/16/25 09:40 Laboratory Results - last 24 hr 05/15/25 05/16/25 05/16/25 06:05 01:25 01:54 WBC RBC Hgb Hct MCV MCH MCHC RDW Plt Count MPV Immature Gran % Neutrophils % Band Neutrophils % Lymphocytes % Monocytes % Eosinophils % Basophils % Metamyelocytes % Nucleated RBC % Absolute Neutrophils Absolute Lymphocytes Absolute Monocytes Absolute Eosinophils Absolute Basophils RBC Morphology PT INR APTT ABG Sample Site Right Radial ABG pH 7.41 ABG pCO2 30 L ABG pO2 117 H ABG HCO3 19 L ABG Total CO2 18 L ABG O2 Saturation ABG Base Excess -6 L VBG Lactate Oxygen Liter Flow 3 Sodium Potassium Chloride Carbon Dioxide Anion Gap BUN Creatinine Est GFR (CKD-EPI 2020) Glucose Calcium Total Bilirubin AST ALT Alkaline Phosphatase Troponin I C-Reactive Protein NT-Pro-B Natriuret Pep 10071 H Total Protein Albumin 25-OH Vitamin D Total Procalcitonin Urine Color Yellow Urine Clarity Sl Cloudy Urine pH 5.5 Ur Specific [place] 1.020 Urine Protein >=300 H Urine Ketones Negative Urine Blood Large H Urine Nitrite Negative Urine Bilirubin Negative Urine Urobilinogen 0.2 Ur Leukocyte Esterase Small H Urine RBC 20-50 H Urine WBC 10-20 H Ur Epithelial Cells Few Urine Crystals Negative Urine Bacteria Few Urine Casts Negative Urine Mucus Negative Ur Culture Indicated? C&S Done As Ordered Urine Glucose Negative 05/16/25 05/16/25 05/16/25 02:00 05:26 09:00 WBC 13.73 H 12.64 H RBC 2.84 L 2.73 L Hgb 8.0 L 7.7 L Hct 25.0 L 23.9 L MCV 88 88 MCH 28.2 28.2 MCHC 32.0 32.2 RDW 17.8 H 17.7 H Plt Count 311 249 MPV 9.5 9.1 Immature Gran % 0.0 Neutrophils % 87.0 Band Neutrophils % 1 Lymphocytes % 3.0 Monocytes % 6.0 Eosinophils % 0.0 Basophils % 0.0 Metamyelocytes % 3 Nucleated RBC % 0.1 Absolute Neutrophils 12.08 H Absolute Lymphocytes 0.41 L Absolute Monocytes 0.82 H Absolute Eosinophils 0.00 Absolute Basophils 0.00 RBC Morphology Normal PT 15.1 H INR 1.5 H APTT 26.8 ABG Sample Site ABG pH ABG pCO2 ABG pO2 ABG HCO3 ABG Total CO2 ABG O2 Saturation ABG Base Excess VBG Lactate 3.9 H* Oxygen Liter Flow Sodium 141 143 Potassium 4.7 4.6 Chloride 105 106 Carbon Dioxide 22.5 21.4 Anion Gap 13.5 H 15.6 H BUN 40 H 44 H Creatinine 2.5 H D 2.5 H Est GFR (CKD-EPI 2020) 21.08 21.08 Glucose 82 84 Calcium 6.0 L* 6.3 L* 6.2 L* Total Bilirubin 0.4 AST 24 ALT 16 Alkaline Phosphatase 84 Troponin I 28 C-Reactive Protein > 25.00 H NT-Pro-B Natriuret Pep > 00665 H Total Protein 5.0 L Albumin 2.3 L 25-OH Vitamin D Total 49 Procalcitonin 118.64 Urine Color Urine Clarity Urine pH Ur Specific [place] Urine Protein Urine Ketones Urine Blood Urine Nitrite Urine Bilirubin Urine Urobilinogen Ur Leukocyte Esterase Urine RBC Urine WBC Ur Epithelial Cells Urine Crystals Urine Bacteria Urine Casts Urine Mucus Ur Culture Indicated? Urine Glucose Time Spent with Patient Time Spent with Patient: >50 minutes Time was spent: preparing to see the patient(eg.review tests), obtaining and/or reviewing separately otained hiistory, ordering medications,tests, procedures, referring, communicating with other health medicare compliance auditor, indepentently interpreting results, counseling the patient and care coordination
[2025-05-16] MEDS: CALCIUM GLUCONATE IVPB (13:08)
[2025-05-16] MEDS: NORMAL SALINE IVPB (13:08)
[2025-05-16 13:13] LABS: MRSA PCR Positive (Negative)
[2025-05-16] MEDS: Sulfameth/Trimeth DS TAB 1 TAB PO (14:30)
[2025-05-16] MEDS: Acetaminophen 325 MG TAB 650 MG PO ×2 (15:31→20:04)
--- NOTE | 2025-05-16 15:46 | CHAPLAIN ---
Francie was resting in bed when I visited. She told me that she drove herself to the ED at 1 am after waking up and not feeling well. She said she's been told that she has an infection and her right leg is swollen. Francie knows staff here from when her long time partner was a patient here a few months ago and he stayed here for end of life care. Francie said she keeps in touch with her sister in [place] and a brother and sister in law in [facility] who all know she is here. She told me in earlier conversations that she is not in touch with her children or her partner's children.
[2025-05-16 17:15] LABS: Anion Gap 13.2 mmol/L (3-11); BUN 50 mg/dL (7-18); CO2 21.8 mmol/L (21.0-32.0); Calcium 6.6 mg/dL (8.5-10.1); Chloride 106 mmol/L (98-107); Estimated GFR 18.40 (mL/min/1.73m2); Glucose 120 mg/dL (74-106); Potassium 5.1 mmol/L (3.5-5.1); Sodium 141 mmol/L (136-145)
[2025-05-16] MEDS: Hydrocortisone SOD SUC. 100 MG VIAL 50 MG IVP (20:03)
[2025-05-16] MEDS: Calcium 600mg/Vit D 200U TAB 1 TAB PO (20:04)
[2025-05-16] MEDS: Simvastatin 20 MG TAB 40 MG PO (20:04)
[2025-05-16] MEDS: Pramipexole 0.25 MG TAB PO (20:05)
[2025-05-16] MEDS: Levothyroxine 150 MCG TAB PO (22:05)
[2025-05-16 22:44] LABS: Vancomycin, Random 14.9 ug/mL
[2025-05-17] VITALS (32 sets, daily range): BP systolic 103–147; BP diastolic 53–97; PULSE 63–78; RESP 7–22; TEMP 36–37.3; O2SAT 96–100
[2025-05-17] MEDS: CEFEPIME 1 GM in Normal Saline 50 ML IVPB ×2 (01:38→13:35)
[2025-05-17] MEDS: Normal Saline 500 ML IV (01:39)
[2025-05-17] MEDS: Normal Saline Flush 10 ML SYR IVP ×4 (01:39→19:28)
[2025-05-17] MEDS: VANCOMYCIN/WATER (PEG) 1 GM/200 ML BAG IVPB (02:17)
[2025-05-17] MEDS: Hydrocortisone SOD SUC. 100 MG VIAL 50 MG IVP ×3 (04:19→19:27)
[2025-05-17 06:37] LABS: MCH 27.6 pg (27.0-33.0); MCHC 31.7 % (32.0-36.0); MCV 87 fL (80-95); MPV 10.0 fL (8.0-11.0); Platelet Count 207 10^3/uL (130-400); RBC 2.39 10^6/uL (3.93-5.22); RDW 17.2 % (11.7-14.6); RDW-SD 55.0 fL; WBC 12.17 10^3/uL (4.4-10.8)
[2025-05-17 06:44] LABS: HCT 20.8 % (36.0-46.0); HGB 6.6 g/dL (11.2-15.7)
[2025-05-17 07:06] LABS: Anion Gap 12.9 mmol/L (3-11); BUN 57 mg/dL (7-18); CO2 22.1 mmol/L (21.0-32.0); Calcium 8.2 mg/dL (8.5-10.1); Chloride 107 mmol/L (98-107); Estimated GFR 19.22 (mL/min/1.73m2); Glucose 87 mg/dL (74-106); Potassium 5.1 mmol/L (3.5-5.1); Sodium 142 mmol/L (136-145)
[2025-05-17 07:30] LABS: HCT 20.7 % (36.0-46.0); HGB 6.6 g/dL (11.2-15.7)
[2025-05-17] MEDS: Calcium 600mg/Vit D 200U TAB 1 TAB PO ×3 (08:00→19:26)
[2025-05-17] MEDS: Hydroxychloroquine 200 MG TAB PO (08:00)
[2025-05-17] MEDS: Aspirin E.C. 81 MG TABEC PO (08:00)
[2025-05-17] MEDS: Gabapentin 300 MG CAP PO ×2 (08:00→19:26)
[2025-05-17] MEDS: Magnesium Oxide 400 MG TAB PO (08:01)
[2025-05-17] MEDS: Enoxaparin 30 MG/0.3 ML SYR SC (08:01)
[2025-05-17] MEDS: Mometasone 220 MCG 14 DOSE INHALER 1 PUFF IH (08:17)
[2025-05-17] MEDS: Collagenase 30 GM TUBE TP (08:35)
[2025-05-17] MEDS: Acetaminophen 325 MG TAB 650 MG PO ×2 (09:51→19:26)
--- NOTE | 2025-05-17 11:04 | W.PM.PROGNOT ---
Date of Service Date of service: 05/17/25 Time of Service: 11:04 Assessment and Plan Assessment and plan (1) Severe sepsis: Status: Acute Assessment and plan: - Patient met criteria for severe sepsis with a white blood cell count of 13.7, temperature 101.5 ?F, circular infection likely being cellulitis of the right leg, GAVIN on CKD with a creatinine of 2.5 (previously 1.4), and hypotension that improved with IV fluids - Patient was started on cefepime and vancomycin as well as stress dose steroids developed sepsis picture with fever, WBC elevation, hypotension overnight wiht organ dysfunction as evident by GAVIN on CKD -Right IJ central line that was placed no pressors were not needed -Continue cefepime and vancomycin - Currently on Solu-Cortef 50 mg every 8 hours, will decrease to 50 mg twice daily, will transition back to 40 mg p.o. prednisone on 05/19/2025 (2) Cellulitis of leg, right: Status: Acute Assessment and plan: - Source infection in the bone -Blood cultures remain negative -Appreciate general surgery recommendation and debridement - Continue wound care (3) Chronic ulcer of right leg: Status: Acute Assessment and plan: As noted above - (4) Hypocalcemia: Status: Acute Assessment and plan: -A/w prolonged QTc, so treated appropriately with IV calcium with imrpovement. -known low PTH a/w thyroid surgery in the past. -Likely worse this admission related to worse hyperphosphatemia combination of recent renal failure, though kidney function has since improved -Patient reportedly had tetany per RN though this was also when patient was febrile, also reported runs of V. tach - Patient was started on calcium gluconate infusion - Calcium has since improved, will continue calcium gluconate infusion until completion - Monitor on telemetry, increase oral calcium supplement, with vitamin D for better absorption. (5) Cryoglobulinemic glomerulonephritis: Status: Acute Assessment and plan: -Not Lupus Nephritis. Recent diagnosed s/p biopsy, treated with prednisone. -Renal function at CKD3a level now, close to baseline though with slight increase due to sepsis as noted above -continue prednisone pending plan from Dr. Rolle from [facility] nephrology, she is considering transition to rituximab and taper of steroids, she will get in touch with team Monday -Continue PJP prophylaxis with 3xWeek TMP/SMX as well unitl off steroids, monitor potassium. (6) Acute kidney injury superimposed on CKD: Status: Acute Assessment and plan: -Glomerulonephritis was improving on steroids started on recent admission -Creatinine increased likely secondary to severe sepsis as noted above - Follow-up a.m. BMP (7) Hyperglycemia, drug-induced: Status: Acute Assessment and plan: -A/w steroids, recent A1c at [facility] was reassuring at 5.3%. -Monitoring glucose, but if they remain below 180 we can stop this. (8) Microcytic anemia: Status: Acute Assessment and plan: -chornic, follow. -Iron levels 04/23 were normal. -This is likely chronic disease and renal and some blood loss. - Hemoglobin on the morning of 05/19.6, ordered 1 unit of packed red blood cells - F/u AM CBC (9) CHF (congestive heart failure): Status: Chronic Assessment and plan: -BNaP up with acute illness, but had echo a month ago with good valve function and normal LVEF. (10) Lupus (systemic lupus erythematosus): Assessment and plan: -This has been stable on hydroxycholoroquine. -Case reviewed with [facility] rheumatology fellow. No change in management. (11) On deep vein thrombosis (DVT) prophylaxis: Status: Acute Assessment and plan: -u/s negative for VTE, on exoxaparin for prophylaxis -Known hypercoagulable state, but had hemorrhagic pericardial effusion while on full anticoagulation with warfarin. Subjective Subjective Interval history since last seen: Patient states that she is feeling better this morning. She understands that the infection is improving and her calcium levels are also improving but she will require transfusion this morning due to low hemoglobin. Otherwise she has no other complaints concerns at this time. Exam Narrative Exam Narrative: Well-appearing female laying in bed in no acute distress, right-sided IJ central line in place without surrounding erythema or drainage, ANO x 4, heart regular rate rhythm with clear to 6 systolic murmur, lungs clear to auscultation bilaterally, abdomen soft, nontender, nondistended, sclerotic, white patches seen in bilateral shins with wounds on distal right lower extremity bandaged without surrounding erythema or drainage Objective Last Vital Signs Temp 98.8 F 05/17/25 10:39 Pulse 74 05/17/25 10:39 Resp 15 05/17/25 10:39 BP 122/61 05/17/25 10:39 Pulse Ox 98 05/17/25 10:39 Laboratory Results - last 24 hr 05/16/25 05/16/25 05/16/25 10:20 16:50 17:00 WBC RBC Hgb Hct MCV MCH MCHC RDW Plt Count MPV VBG Lactate 2.8 H* Sodium 141 Potassium 5.1 Chloride 106 Carbon Dioxide 21.8 Anion Gap 13.2 H BUN 50 H Creatinine 2.8 H Est GFR (CKD-EPI 2020) 18.40 Glucose 120 H Calcium 6.6 L Cancelled Random Vancomycin MRSA (TEM-PCR) Positive A ABO/Rh Antibody Screen Crossmatch 05/16/25 05/17/25 05/17/25 22:08 05:50 07:15 WBC 12.17 H RBC 2.39 L Hgb 6.6 L* 6.6 L* Hct 20.8 L* 20.7 L* MCV 87 MCH 27.6 MCHC 31.7 L RDW 17.2 H Plt Count 207 MPV 10.0 VBG Lactate Sodium 142 Potassium 5.1 Chloride 107 Carbon Dioxide 22.1 Anion Gap 12.9 H BUN 57 H Creatinine 2.7 H Est GFR (CKD-EPI 2020) 19.22 Glucose 87 Calcium 8.2 L Random Vancomycin 14.9 MRSA (TEM-PCR) ABO/Rh Antibody Screen Crossmatch 05/17/25 08:55 WBC RBC Hgb Hct MCV MCH MCHC RDW Plt Count MPV VBG Lactate Sodium Potassium Chloride Carbon Dioxide Anion Gap BUN Creatinine Est GFR (CKD-EPI 2020) Glucose Calcium Random Vancomycin MRSA (TEM-PCR) ABO/Rh O Positive Antibody Screen NEGATIVE Crossmatch See Detail Time Spent with Patient Time Spent with Patient: >50 minutes Time was spent: preparing to see the patient(eg.review tests), obtaining and/or reviewing separately otained hiistory, ordering medications,tests, procedures, referring, communicating with other health rehab care assistant, indepentently interpreting results, counseling the patient and care coordination
[2025-05-17] MEDS: oxyCODONE 5 MG TAB PO ×2 (13:21→19:27)
[2025-05-17] MEDS: Pramipexole 0.25 MG TAB PO (19:26)
[2025-05-17] MEDS: Simvastatin 20 MG TAB 40 MG PO (19:26)
[2025-05-17] MEDS: Levothyroxine 150 MCG TAB PO (22:09)
[2025-05-18] VITALS (17 sets, daily range): BP systolic 138–175; BP diastolic 70–99; PULSE 66–84; RESP 7–22; TEMP 36.5–37; O2SAT 96–98
[2025-05-18] MEDS: CEFEPIME 1 GM in Normal Saline 50 ML IVPB (01:54)
[2025-05-18] MEDS: VANCOMYCIN/WATER (PEG) 750 MG/150 ML BAG 150 MG IVPB (01:54)
[2025-05-18] MEDS: Normal Saline Flush 10 ML SYR IVP ×4 (01:55→19:35)
[2025-05-18] MEDS: Hydrocortisone SOD SUC. 100 MG VIAL 50 MG IVP (03:51)
[2025-05-18] MEDS: oxyCODONE 5 MG TAB PO ×3 (05:52→19:36)
[2025-05-18] MEDS: Acetaminophen 325 MG TAB 650 MG PO ×2 (05:52→19:36)
[2025-05-18 06:57] LABS: HCT 24.7 % (36.0-46.0); HGB 8.0 g/dL (11.2-15.7); MCH 28.2 pg (27.0-33.0); MCHC 32.4 % (32.0-36.0); MCV 87 fL (80-95); MPV 10.5 fL (8.0-11.0); Platelet Count 233 10^3/uL (130-400); RBC 2.84 10^6/uL (3.93-5.22); RDW 16.4 % (11.7-14.6); RDW-SD 51.7 fL; WBC 16.83 10^3/uL (4.4-10.8)
[2025-05-18 07:13] LABS: Anion Gap 12.1 mmol/L (3-11); BUN 62 mg/dL (7-18); CO2 22.9 mmol/L (21.0-32.0); Calcium 8.3 mg/dL (8.5-10.1); Chloride 105 mmol/L (98-107); Estimated GFR 27.55 (mL/min/1.73m2); Glucose 109 mg/dL (74-106); Potassium 4.7 mmol/L (3.5-5.1); Sodium 140 mmol/L (136-145)
[2025-05-18] MEDS: Hydroxychloroquine 200 MG TAB PO (07:36)
[2025-05-18] MEDS: Aspirin E.C. 81 MG TABEC PO (07:36)
[2025-05-18] MEDS: Gabapentin 300 MG CAP PO ×2 (07:36→19:36)
[2025-05-18] MEDS: Calcium 600mg/Vit D 200U TAB 1 TAB PO ×3 (07:36→19:35)
[2025-05-18] MEDS: Magnesium Oxide 400 MG TAB PO (07:36)
[2025-05-18] MEDS: Enoxaparin 30 MG/0.3 ML SYR SC (07:37)
[2025-05-18] MEDS: Mometasone 220 MCG 14 DOSE INHALER 1 PUFF IH (08:09)
[2025-05-18] MEDS: Doxycycline Hyclate 100 MG CAP PO ×2 (08:44→19:36)
[2025-05-18] MEDS: Amoxicillin 875 MG TAB PO ×2 (08:44→19:36)
[2025-05-18] MEDS: Collagenase 30 GM TUBE TP (08:45)
[2025-05-18] MEDS: predniSONE 20 MG TAB 40 MG PO (08:53)
--- NOTE | 2025-05-18 12:18 | IN_ITS ---
PT Notes Visit Reasons: Cellulitis Inpatient Physical Therapy Evaluation Date: 05/18/25 Referring Doctor: Dr. Montejo PT Orders: PT CONSULT: safety consult for d/c Precautions: Cellulitis RLE, WBAT Patient Profile/Admitting Diagnosis: Cellulitis PMHX: Microcytic anemia (Acute) Hyperglycemia, drug-induced (Acute) Hyperkalemia (Acute) Hypokalemia (Acute) Lupus nephritis (Acute) On deep vein thrombosis (DVT) prophylaxis (Acute) Acute exacerbation of CHF (congestive heart failure) (Acute) Acute kidney injury superimposed on CKD (Acute) Hematuria (Acute) GAVIN (acute kidney injury) (Acute) Mild peripheral edema (Acute) CHF (congestive heart failure) (Chronic) Cutaneous amyloidosis (Acute) Leg wound, right (Acute) Chronic wound (Acute) Left knee DJD (Chronic) Headache (Acute) Urinary tract infection (Acute) Colovaginal fistula (Acute) Diverticulitis of sigmoid colon (Acute) Amyloidosis (Chronic) Herniated nucleus pulposus, lumbar (Chronic) Antiphospholipid syndrome (Chronic) Trigger thumb of right hand (Acute) Trigger thumb of left hand (Chronic) Nasal vestibulitis (Acute 11/02/17) Nasal congestion (Acute 06/19/14) Deviated nasal septum (Acute 06/19/14) Cephalgia (Acute 11/20/14) Constipation (Chronic) HTN (hypertension) (Chronic) GERD (gastroesophageal reflux disease) (Chronic) Lupus (Chronic) Social History/Home Situation: Lives alone in [facility], normally drives and does all of her own grocery shopping, has 2 cats, has 2 stairs to manage to get into her house Equipment Owned/DME: Has RW and cane at home but does not normally use them Subjective: Pt admitted to ICU status with R leg cellulitis. She was able to drive herself here. She currently feels pretty good but still is dealing with a lot of pain on that side. Objective: General Observation: sitting up in the chair happy to work with PT Mental Status: A+Ox4 Pain: pain in RLE Vital Signs: monitored by nursing ROM: WFL throughout UEs and LEs bilaterally Strength: able to perform seated marching, LAQs, DF/PF on bilat LEs, pain noted with LAQs on RLE Bed Mobility/Transfers: sit to stand - SBA stand to sit - SBA Gait: ambulates 200 ft w/RW and SBA ascends/descends 4 stairs w/CGA and use of bilat UEs Balance: Static Sitting: good Dynamic Sitting: good Static Standing: good Dynamic Standing: fair Special Tests: Mobility Limitations Standardized Measure [facility] AM-PAC 6 clicks Basic Mobility Inpatient Short Form: Raw Score: 18 CMS Score: 46.58% Informed Consent/Education: Patient instructed in purpose of PT consult and plan of care. Assessment: Pt is showing the appropriate function and safety to be able to be d/c'd home today. She was able to perform stairs with the use of bilat UEs on a railing. It is recommended that she use a cane to help her go up and down the stairs as she only has one railing at home. She was able to ambulate with a RW but did show decreased gait speed due to pain in her RLE. Due to the fact, she lives alone and now is requiring RW use it is recommended that she receive home health PT to further assess her mobility in her home and progress her as tolerated. Patient is assessed as a [x] Low 02877 complexity based on the following: History: Low Examination: Low Presentation: Low Decision Making: Low Goals: D/c'ing to home Plan of Care/Treatment Plan: 1-2x/day, 7 days/week x 1 week. Plan of care has been reviewed with the WEB CONTENT EXECUTIVE providing the service under Physical Therapy direction. Initiate Physical Therapy intervention for strengthening, bed mobility, transfers, gait, stairs, balance training, use of assistive device. DISCHARGE RECOMMENDATIONS: [x] Home with home health PT services TREATMENT CODE/TIME: Low Eval (51871) x1 - 28 min
--- NOTE | 2025-05-18 13:49 | PDOC.CMPRO ---
Date of service: 05/18/25 Time of Service: 13:49 Care Management Progress Note Progress Note Text Progress Note Text: Francie was to be discharged today but stated that she would feel better if she could stay one more night. She was seen by PT and was cleared to discharge home safely. She will likely benefit from home health nursing for wound care and PT. These will be ordered when she discharges home tomorrow. Discharge Potential Discharge Needs: PCP F/U Appt Anticipated Barriers to Discharge: None Identified Patient/Family Education Needs: Review discharge instructions, discuss Ask Me Three Transportation: Private vehicle Plan: Anticipate Francie will be discharged home with new home health services for nursing and PT, when medically stable. She will follow up with her PCP and plan of care and transport with family. CM will follow and continue to assess for discharge planning needs. Social Social Determinants of Health Screening Social Determinants of health last assessed in clinic: 05/18/25 Will the Patient Participate in the Screening?: Yes Do you worry about having a steady place to live?: no Problems where you live: no known problems In the past 12 months, have you had to go without electric, gas, oil or water in your home?: no 1. Within the past 12 months, we worried whether our food would run out before we got money to buy more.: Never true 2. Within the past 12 months, the food we bought just didn't last and we didn't have money to get more.: Never true Has lack of transportation kept you from medical appointments or from doing things needed for daily living?: no Has anyone in your life made you feel unsafe or unsupported?: no How hard is it for you to pay for the very basics like food, housing, medical care, and heating? Would you say it is:: Not hard at all Do you want help finding or keeping work or a job?: I do not need or want help If for any reason you need help with day-to-day activities such as bathing, preparing meals, shopping, managing finances, etc., do you get the help you need?: I don?t need any help How often do you feel lonely or isolated from those around you?: Never Do you speak a language other than Slovenian at home?: No
--- NOTE | 2025-05-18 16:37 | W.PM.PROGNOT ---
Date of Service Date of service: 05/18/25 Time of Service: 16:37 Assessment and Plan Assessment and plan (1) Severe sepsis: Status: Acute Assessment and plan: - Patient met criteria for severe sepsis with a white blood cell count of 13.7, temperature 101.5 ?F, circular infection likely being cellulitis of the right leg, GAVIN on CKD with a creatinine of 2.5 (previously 1.4), and hypotension that improved with IV fluids - Patient was started on cefepime and vancomycin as well as stress dose steroids developed sepsis picture with fever, WBC elevation, hypotension overnight wiht organ dysfunction as evident by GAVIN on CKD -Right IJ central line that was placed no pressors were not needed -was on cefepime and vancomycin, transitioned to amox and doxy on AM 05/18 - Had been on Solu-Cortef 50 mg every 8 hours, was decrease to 50 mg twice daily, transitioned back to 40 mg p.o. prednisone on 05/18/2025 (2) Cellulitis of leg, right: Status: Acute Assessment and plan: - Source infection in the bone -Blood cultures remain negative -Appreciate general surgery recommendation and debridement - Continue wound care (3) Chronic ulcer of right leg: Status: Acute Assessment and plan: As noted above - (4) Hypocalcemia: Status: Acute Assessment and plan: -A/w prolonged QTc, so treated appropriately with IV calcium with imrpovement. -known low PTH a/w thyroid surgery in the past. -Likely worse this admission related to worse hyperphosphatemia combination of recent renal failure, though kidney function has since improved -Patient reportedly had tetany per RN though this was also when patient was febrile, also reported runs of V. tach - Patient was started on calcium gluconate infusion - Calcium has since improved, calcium infusion completed on 05/17/2025 - Monitor on telemetry, increase oral calcium supplement, with vitamin D for better absorption. (5) Cryoglobulinemic glomerulonephritis: Status: Acute Assessment and plan: -Not Lupus Nephritis. Recent diagnosed s/p biopsy, treated with prednisone. -Renal function at CKD3a level now, close to baseline though with slight increase due to sepsis as noted above -continue prednisone pending plan from Dr. Rolle from [facility] nephrology, she is considering transition to rituximab and taper of steroids, she will get in touch with team Monday -Continue PJP prophylaxis with 3xWeek TMP/SMX as well unitl off steroids, monitor potassium. (6) Acute kidney injury superimposed on CKD: Status: Acute Assessment and plan: -Glomerulonephritis was improving on steroids started on recent admission -Creatinine increased likely secondary to severe sepsis as noted above - Follow-up a.m. BMP (7) Hyperglycemia, drug-induced: Status: Acute Assessment and plan: -A/w steroids, recent A1c at [facility] was reassuring at 5.3%. -Monitoring glucose, but if they remain below 180 we can stop this. (8) Microcytic anemia: Status: Acute Assessment and plan: -chornic, follow. -Iron levels 04/23 were normal. -This is likely chronic disease and renal and some blood loss. - Hemoglobin on the morning of 05/19.6, ordered 1 unit of packed red blood cells - F/u AM CBC (9) CHF (congestive heart failure): Status: Chronic Assessment and plan: -BNaP up with acute illness, but had echo a month ago with good valve function and normal LVEF. (10) Lupus (systemic lupus erythematosus): Assessment and plan: -This has been stable on hydroxycholoroquine. -Case reviewed with [facility] rheumatology fellow. No change in management. (11) On deep vein thrombosis (DVT) prophylaxis: Status: Acute Assessment and plan: -u/s negative for VTE, on exoxaparin for prophylaxis -Known hypercoagulable state, but had hemorrhagic pericardial effusion while on full anticoagulation with warfarin. Subjective Subjective Interval history since last seen: Patient understands that her medical condition is significantly improved, but she is on oral antibiotics and is ready for discharge tomorrow 05/19/2025. She has no complaints or concerns at this time. Exam Narrative Exam Narrative: Well-appearing female laying in bed in no acute distress, right-sided IJ central line in place without surrounding erythema or drainage, ANO x 4, heart regular rate rhythm with clear to 6 systolic murmur, lungs clear to auscultation bilaterally, abdomen soft, nontender, nondistended, sclerotic, white patches seen in bilateral shins with wounds on distal right lower extremity bandaged without surrounding erythema or drainage Objective Last Vital Signs Temp 97.7 F 05/18/25 04:00 Pulse 81 05/18/25 14:16 Resp 21 05/18/25 14:16 BP 175/84 H 05/18/25 14:16 Pulse Ox 97 05/18/25 14:16 Laboratory Results - last 24 hr 05/18/25 05/18/25 05:55 22:00 WBC 16.83 H RBC 2.84 L Hgb 8.0 L Hct 24.7 L MCV 87 MCH 28.2 MCHC 32.4 RDW 16.4 H Plt Count 233 MPV 10.5 Sodium 140 Potassium 4.7 Chloride 105 Carbon Dioxide 22.9 Anion Gap 12.1 H BUN 62 H Creatinine 2.0 H Est GFR (CKD-EPI 2020) 27.55 Glucose 109 H Calcium 8.3 L Random Vancomycin Cancelled Time Spent with Patient Time Spent with Patient: >50 minutes Time was spent: preparing to see the patient(eg.review tests), obtaining and/or reviewing separately otained hiistory, ordering medications,tests, procedures, referring, communicating with other health hourly caregiver, indepentently interpreting results, counseling the patient and care coordination
[2025-05-18] MEDS: Pramipexole 0.25 MG TAB PO (19:36)
[2025-05-18] MEDS: Simvastatin 20 MG TAB 40 MG PO (19:36)
[2025-05-18] MEDS: Levothyroxine 150 MCG TAB PO (22:26)
[2025-05-19] VITALS (9 sets, daily range): BP systolic 157–194; BP diastolic 73–99; PULSE 69–93; RESP 18–20; TEMP 36.3–36.6; O2SAT 97–100
[2025-05-19] MEDS: oxyCODONE 5 MG TAB PO (01:08)
[2025-05-19] MEDS: Acetaminophen 325 MG TAB 650 MG PO ×2 (01:08→06:47)
[2025-05-19] MEDS: Amoxicillin 875 MG TAB PO (08:01)
[2025-05-19] MEDS: Calcium 600mg/Vit D 200U TAB 1 TAB PO (08:01)
[2025-05-19] MEDS: Ergocalciferol 50000 UNITS CAP PO (08:01)
[2025-05-19] MEDS: predniSONE 20 MG TAB 40 MG PO (08:02)
[2025-05-19] MEDS: Enoxaparin 30 MG/0.3 ML SYR SC (08:02)
[2025-05-19] MEDS: Doxycycline Hyclate 100 MG CAP PO (08:02)
[2025-05-19] MEDS: Magnesium Oxide 400 MG TAB PO (08:02)
[2025-05-19] MEDS: Aspirin E.C. 81 MG TABEC PO (08:02)
[2025-05-19] MEDS: Gabapentin 300 MG CAP PO (08:02)
[2025-05-19] MEDS: Collagenase 30 GM TUBE TP (08:09)
[2025-05-19] MEDS: Hydroxychloroquine 200 MG TAB PO (08:09)
[2025-05-19] MEDS: Mometasone 220 MCG 14 DOSE INHALER 1 PUFF IH (08:14)
--- NOTE | 2025-05-19 09:24 | TELEFU_ITS ---
Date of service: 05/19/25 Time of Service: 09:24 Nutrition Note NOTE: Francie visited with multiple times last week to get updates on intake (has had poor po intake) and offer ONS to support her protein intake. wt on increased trend this admission with 1-3+ pitting edmea to lower extremiti es (improving over her admission). hypocalcemia corrected via infusion Glucose remains close to target while on steroids. Hx of A1C <7. Total protein/albumin elevated in the context of inflammation with CRP >25 05/16 denies significant chewing/swallowing concerns. had communicated some concerns moving her bowels last Monday - offered some prune juice. had BM yesterday. Pt declined NFPE at this time. Encouraged protein at meals and snacks and consider protein supplement to help achieve goal of ~115grams per day to supprt wound healing (1.5g per kg AjBW). Discharge anticipated today. Will continue to monitor and patient has my card if she has any questions or would like to get together in the outpatient setting. Time Spent in Nutritional Counseling and Treatment: 10 min
--- NOTE | 2025-05-19 10:09 | PT.INTREAT ---
PT Notes Visit Reasons: Cellulitis Inpatient Physical Therapy Treatment Note [facility] Date: 05/19/2025 PRECAUTIONS: MRSA nares, contact SUBJECTIVE: While walking patient reported tightness in her right calf which she stated resolved and she walked more. Right lower extremity noted to be edematous with weeping drainage tight shiny appearing skin knee to foot. With [address] OBJECTIVE: Patient presented seated in chair dressing to right lower extremity. Lower extremity also noted to have drainage/weeping from right lower extremity saturating her sock. Nurse notified ? PAIN: Tightness in calf right VITALS: ?Monitored by nursing Therapeutic Activities ([id number][]): Direct one-on-one instruction in dynamic activities to improve functional performance. ? BED MOBILITY/TRANSFERS? Rolling L/R: [] Supine-sit: Mod assist for trunk (patient sleeps in recliner)? Sit-supine: Min assist for right lower extremity (patient sleeps in recliner)? Sit-stand: Supervision? Stand-sit: Supervision? Bed-Chair: Supervision with FWW ? Chair-bed: Supervision with FWW Provided skilled cues and instruction on performance and technique throughout. -Facilitated safe and correct performance of level surface ambulation covering a distance of 200 feet using use front wheeled walker with standby assist and wheelchair follow for safety. Did not report of any increased pain. Denied headache, chest pain, and lightheadedness throughout activity. Minimal verbal cueing provided for AD management, directional changes, and posture. ? -Facilitated safe and correct performance of level surface ambulation covering a distance of 90 feet using use 4 wheeled walker with standby assist for safety. Did not report of any increased pain. Denied headache, chest pain, and lightheadedness throughout activity. Minimal verbal cueing provided for AD management, directional changes, and posture.? STAIRS: 3 4 steps? and 2 6 steps with rails SBA cues to ensure foot gets completely onto step.? ASSESSMENT:?Pt able to progress with ambulation with 4WW this session. Her right LE with weeping drainage despite bandage. RN notified. Pt able to perform stairs with B rails and SBA Pt had to lead with the right foot ascending as she was unable to perform hip flexion on left to get Left foot onto the stairs. She descends leading with the right Leg. Patient demonstrated improved ability to manage turns and manipulate obstacles with use of four-wheel walker versus front wheeled walker. Patient has four-wheel walker at home which she intermittently was using in the past. Patient recommended to utilize walker at this time. PLAN: Cont with POC until discharge to home TREATMENT CODE/TIME: 31887/ [id number] DISCHARGE RECOMMENDATION: GREGORIO
--- NOTE | 2025-05-19 10:25 | PDOC.CMDIS ---
Date of service: 05/19/25 Time of Service: 10:25 LACE Index Scoring Tool Questions: Length of Stay (in days): 4 - 6 Was the patient admitted via the E.D.?: Yes Comorbidities: Congestive Heart Failure and Liver or Renal Disease E.D. Visits: 3 Answers: Total Score: 15 Risk of Readmission: High Risk Care Management Discharge Plan Reason for Hospitalization: cellulitis Discharge Plan: Francie returned home today with new [facility] RN and PT. She transported home via private vehicle by a friend. She will follow up with her PCP and discharge plan of care. Patient/Family Education Needs: Review discharge instructions and limitations, discussion of self care needs including ask me three. Services Needed at Discharge: Home Health Care Services (new [facility] RN, PT) SDOH Health Related Social Needs: Health related social needs inadequate housing transpo insecurity lonely/isolated Health related social needs details old house
--- NOTE | 2025-05-19 11:38 | W.PM.DS.N ---
Date of service: 05/19/25 Time of Service: 11:38 DS: Diagnosis Discharge Diagnosis (1) Severe sepsis: Status: Acute (2) Cellulitis of leg, right: Status: Acute (3) Chronic ulcer of right leg: Status: Acute (4) Hypocalcemia: Status: Acute (5) Cryoglobulinemic glomerulonephritis: Status: Acute (6) Acute kidney injury superimposed on CKD: Status: Acute (7) Hyperglycemia, drug-induced: Status: Acute (8) Microcytic anemia: Status: Acute (9) CHF (congestive heart failure): Status: Chronic (10) Lupus (systemic lupus erythematosus): (11) On deep vein thrombosis (DVT) prophylaxis: Status: Acute Discharge Plan Disposition Patient Disposition: Home W/Home Health Services Condition: Good Discharge Details Reason For Visit: Cellulitis Admit Date/Time: 05/15/25 11:24 Admit Provider: Daniel Hinkle Attending Provider: Daniel Hinkle Primary Care Provider: Randy Mauricio Hospital Course Hospital Course: Patient presented with right lower extremity pain and edema chronic nonhealing wounds that were debrided bedside by general surgery. Additionally, patient developed severe sepsis requiring transfer to the ICU but not septic shock as she did not require pressors. She was treated with IV vancomycin and cefepime and improvement of her symptoms. She was transitioned to p.o. amoxicillin and doxycycline and continued to have improvement. Additionally, patient did have a brief increase in her creatinine likely due to severe sepsis up to 2.8 but had decreased down to 2.0. Patient was also profoundly hypocalcemic requiring calcium gluconate infusion which improved her calcium. Calcium levels were checked after infusions completed pending levels remained within normal limits. Ultimately, given that patient had improvement with intervention and stable for discharge home with home health. Case was also discussed with her [facility] [place] rater who recommended decreasing her prednisone dose to 30 mg daily. Home Meds and New Rx's Prescriptions: New doxycycline hyclate 100 mg Capsule 100 mg PO BID Qty: 14 0RF amoxicillin 875 mg Tablet 875 mg PO BID Qty: 14 0RF prednisone 10 mg tablet 30 mg PO DAILY Qty: 120 0RF Continued albuterol sulfate [ProAir HFA] 90 mcg/actuation HFA aerosol inhaler 2 puff Inhalation Q6H PRN (Reason: shortness of breath) hydroxychloroquine 200 MG tablet 200 mg PO DAILY Qty: 30 amlodipine 2.5 mg tablet 2.5 mg PO DAILY calcium carbonate [Oyster Shell Calcium] 500 mg calcium (1,250 mg) Tablet 500 mg PO DAILY acetaminophen 500 mg tablet 1,000 mg PO Q8H PRN (Reason: pain) Qty: 90 3RF gabapentin 400 mg capsule 400 mg PO BID Patient Comments: TAKE ONE CAPSULE BY MOUTH TWICE A DAY pramipexole 0.125 mg tablet 0.25 mg PO QPM Patient Comments: TAKE TWO TABLETS BY MOUTH EVERY EVENING AT BEDTIME FOR RESTLESS LEGS aspirin 81 mg Tablet,Delayed Release (Dr/Ec) 81 mg PO DAILY sulfamethoxazole-trimethoprim 800-160 mg tablet 1 tab PO .COMPLEX Patient Comments: TAKE 1 TABLET BY MOUTH THREE TIMES WEEKLY ON MONDAY, MONDAY, AND MONDAY FOR 30 DAYS Rx Instructions: 1 tab orally monday, monday and monday; labetalol 100 mg tablet 100 mg PO DAILY cholecalciferol (vitamin D3) 1,250 mcg (50,000 unit) capsule 1,250 mcg PO .COMPLEX Patient Comments: TAKE ONE CAPSULE BY MOUTH THREE TIMES WEEKLY FOR 5 WEEKS Rx Instructions: 1,250 mcg orally 3 times a week; simvastatin 40 mg tablet 40 mg PO DAILY fluticasone furoate [Arnuity Ellipta] 100 mcg/actuation blister with device 1 inh INHALATION DAILY Patient Comments: INHALE ONE PUFF BY MOUTH EVERY DAY magnesium oxide 500 mg magnesium tablet 500 mg PO DAILY Patient Comments: TAKE ONE TABLET BY MOUTH EVERY DAY levothyroxine 150 mcg tablet 150 mcg PO DAILY Patient Comments: TAKE ONE TABLET BY MOUTH EVERY DAY Discontinued furosemide [Lasix] 20 mg tablet 20 mg PO BID Qty: 10 0RF No Action prednisone 20 mg tablet 40 mg PO DAILY Patient Comments: TAKE TWO TABLETS BY MOUTH EVERY DAY FOR 30 DAYS Discharge Instructions Referrals: Randy Mauricio [Primary Care Provider, Medicine] - 05/29/25 1:40 pm Activity:: Activity as Tolerated Equipment/Supplies:: No Equipment Needed Diet:: As Tolerated DS: Summary Time Spent with Patient providing and/or coordinating discharge services: Greater than 30 minutes Status at Discharge Functional status at discharge: independent ambulation Overall status at discharge: patient is back to baseline Mental Status: mental status grossly normal Speech and Movement: speech and movement normal Mood: congruent mood Affect: normal affect Quality:SDOH Health Related Social Needs: Health related social needs inadequate housing transpo insecurity lonely/isolated Health related social needs details old house Exam Narrative Exam Narrative: Well-appearing female laying in bed in no acute distress, right-sided IJ central line in place without surrounding erythema or drainage, ANO x 4, heart regular rate rhythm with clear to 6 systolic murmur, lungs clear to auscultation bilaterally, abdomen soft, nontender, nondistended, sclerotic, white patches seen in bilateral shins with wounds on distal right lower extremity bandaged without surrounding erythema or drainage Psych Mental Status: mental status grossly normal Speech and Movement: speech and movement normal Mood: congruent mood Affect: normal affect DS: Data Vitals/I&O Vitals and I&O: Vital Signs Temperature 97.7 F 05/19/25 07:15 Temperature Source Temporal Artery Scan 05/19/25 07:15 Pulse 75 05/19/25 08:56 Pulse Rhythm Regular 05/15/25 13:20 Pulse 68 05/18/25 16:01 Respiratory Rate 18 05/19/25 08:52 Respiratory Effort Accessory Muscle Use 05/16/25 02:40 Respiratory Depth Deep 05/16/25 02:40 Respiratory Pattern Tachypnea 05/16/25 02:40 Blood Pressure 176/80 H 05/19/25 08:56 Blood Pressure Mean 107 05/19/25 08:56 Blood Pressure Position Sitting 05/15/25 06:10 Pulse Oximetry 100 05/19/25 08:56 Oxygen Delivery Method Room Air 05/19/25 07:15 Oxygen Flow Rate 0 05/19/25 07:15 Pain Level 5 05/19/25 01:16 Comment just got up to commode 05/18/25 20:01 Intake & Output 05/18/25 05/19/25 05/19/25 17:59 05:59 17:59 Intake Total 240 / 240 370 / 610 660 / 660 Output Total 900 / 900 725 / 1625 250 / 250 Balance -660 / -660 -355 / -1015 410 / 410 Weight 225 lb 12.054 oz 223 lb 12.307 oz Intake: IV 0 / 0 Oral 240 / 240 370 / 610 660 / 660 Output: Urine 900 / 900 725 / 1625 250 / 250 Other: Urine Color Light Shakira Dark Shakira Light Shakira Poynette Poynette Urine Appearance Hematuria Cloudy Cloudy Urine Odor Normal Normal Normal Stool Size Small Stool Characteristics Formed Hard Data Completed and Pending Labs on day of discharge: Preliminary micro results at discharge 05/15/25 08:00 Blood Blood Culture - Preliminary NO GROWTH 96 HOURS 05/15/25 08:20 Blood Blood Culture - Preliminary NO GROWTH 96 HOURS 05/16/25 02:00 Blood Blood Culture - Preliminary NO GROWTH 72 HOURS PFS All Active Problems (Updated 05/16/25 @ 16:46 by Daniel Hinkle) Chronic ulcer of right leg (Acute) Cryoglobulinemic glomerulonephritis (Acute) Severe sepsis (Acute) Temporary central venous catheter in place (Acute) Pain in right leg (Acute) Cellulitis of leg, right (Acute) Hypocalcemia (Acute) Microcytic anemia (Acute) Hyperglycemia, drug-induced (Acute) Hyperkalemia (Acute) Hypokalemia (Acute) Lupus nephritis (Acute) On deep vein thrombosis (DVT) prophylaxis (Acute) Acute exacerbation of CHF (congestive heart failure) (Acute) Acute kidney injury superimposed on CKD (Acute) Hematuria (Acute) GAVIN (acute kidney injury) (Acute) Mild peripheral edema (Acute) CHF (congestive heart failure) (Chronic) Cutaneous amyloidosis (Acute) Leg wound, right (Acute) Chronic wound (Acute) Left knee DJD (Chronic) Depo-medrol injection: 02/27/25; 11/28/2024; 08/29/24; 05/30/2024; 02/26/2024; 11/27/2023; 08/17/23 Headache (Acute) Urinary tract infection (Acute) Colovaginal fistula (Acute) Diverticulitis of sigmoid colon (Acute) Amyloidosis (Chronic) Herniated nucleus pulposus, lumbar (Chronic) Antiphospholipid syndrome (Chronic) Trigger thumb of right hand (Acute) Trigger thumb of left hand (Chronic) Nasal vestibulitis (Acute 11/02/17) Nasal congestion (Acute 06/19/14) Deviated nasal septum (Acute 06/19/14) Cephalgia (Acute 11/20/14) Constipation (Chronic) as above HTN (hypertension) (Chronic) GERD (gastroesophageal reflux disease) (Chronic) stable Lupus (Chronic) Medical History Lupus (systemic lupus erythematosus) Hypertension Primary localized cutaneous amyloidosis Cellulitis of right lower limb Lymphocytopenia Normal colonoscopy [place] 11/13/[address] Natalya Styles at [facility], severe diverticular dz, repeat 10 years. mg Hypocalcemia Asthma Allergic rhinitis Abnormal mammogram of right breast Degenerative joint disease Hyperlipidemia Pericarditis Eczema Chest wall pain Insomnia Sciatica, left side Surgical History 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) History of bone marrow biopsy S/P thyroidectomy H/O: hysterectomy Tonsillectomy Social History (Updated 05/15/25 @ 15:39 by Daniel Hinkle) Smoking/Tobacco Use Status: Former Tobacco Use Quit Date: 08/14/99 Smoking risk assessment performed?: Yes Alcohol Intake: current Alcohol Intake frequency: a few times a week Alcohol type: beer and wine Drug use: Never Substance use type: does not use Household members: none Housing: house Current gender identity: female Do you feel safe at home: Yes Do you feel safe in your relationship?: Yes Additional Social history: Lives alone, formerly cared for older man who in 2024. 2 cats. no travel. Time Spent with Patient Time Spent with Patient: <45 minutes Time was spent: preparing to see the patient(eg.review tests), obtaining and/or reviewing separately otained hiistory, ordering medications,tests, procedures, referring, communicating with other health gericare aide teacher, indepentently interpreting results, counseling the patient and care coordination
--- NOTE | 2025-05-19 11:40 | PDOC.HHF2F_ITS ---
Date of service: 05/19/25 Time of Service: 11:40 Home Health Referral Home Health Orders Clinical synopsis of why skilled professionals are needed: Cryoglobulinemia, lupus, chronic RLE wound Registered Nurse: Check all that apply Instruct on new or changed medication(s)/assess compliance: Ordered Physical Therapist: Check all that apply Increase strength & endurance for safe mobility at home: Ordered To design/establish home maintenance program: Ordered Fall reduction therapy program for patient with history of frequent falls: Ordered Home safety evaluation and teaching/gait training including stair management (if applicable): Ordered Encounter Date and Reason: I certify that a FTF encounter for this patient was performed on May 19, 2025 and that such encounter was related to the primary reason the patient requires home health services. The encounter was conducted in the following manner: * By me as the certifying physician, TECHNOLOGY DEVELOPMENT INTERN, PA or * By an inpatient physician, TECHNOLOGY DEVELOPMENT INTERN or PA during an inpatient stay who communicated findings to me, Certification And Authentication I certify that I composed the above information based on my clinical judgment relating to this patient's medical condition and, if applicable, clinical findings communicated to me by the NPP or inpatient physician who performed the FTF encounter. Name of Provider that will be monitoring home health services: Randy Mauricio
[2025-05-19] MEDS: Docusate Sodium 100 MG CAP PO (11:41)
[2025-05-19] MEDS: Sulfameth/Trimeth DS TAB 1 TAB PO (11:41)
--- NOTE | 2025-05-19 14:52 | PDOC.HHF2F_ITS ---
Date of service: 05/19/25 Time of Service: 14:52 Home Health Referral Home Health Orders Clinical synopsis of why skilled professionals are needed: Patient has RLE wound and needs dressing changes. Medical diagnosis necessitation home health referral: Chronic RLE wounds Registered Nurse: Check all that apply Instruct on new or changed medication(s)/assess compliance: Ordered (Apply Collagenase BID and then gauze dressing. Apply until healthy wound bed. ) Physical Therapist: Check all that apply Increase strength & endurance for safe mobility at home: Ordered To design/establish home maintenance program: Ordered Fall reduction therapy program for patient with history of frequent falls: Ordered Home safety evaluation and teaching/gait training including stair management (if applicable): Ordered Home Bound Status Assistance of another person (Describe assistance and medical necessity): Some of these wounds are not accessible to the patient herself. Needs assistance with dressing changes. Describe why leaving home would require a considerable and taxing effort: Requires frequent rest periods and Safety Concerns: describe Encounter Date and Reason: I certify that a FTF encounter for this patient was performed on May 19, 2025 and that such encounter was related to the primary reason the patient requires home health services. The encounter was conducted in the following manner: * By me as the certifying physician, RETAIL ASSOCIATE MANAGER BILINGUAL, PA or * By an inpatient physician, RETAIL ASSOCIATE MANAGER BILINGUAL or PA during an inpatient stay who communicated findings to me, Certification And Authentication I certify that I composed the above information based on my clinical judgment relating to this patient's medical condition and, if applicable, clinical findings communicated to me by the NPP or inpatient physician who performed the FTF encounter. Name of Provider that will be monitoring home health services: Daly Clement
== END 2025-05-19 13:35 | disposition home health service (06) | DRG 872 ==
LOC: ER 11:25 → MS 12:52 → ICU 05-16 02:34
PROVIDERS: Emergency Medicine; Family Medicine; Admitting Provider Family Medicine; Emergency Provider Student in an Organized Health Care Education/Training Program; PCP Student in an Organized Health Care Education/Training Program; Responsible Provider Family Medicine; Visit Provider Family Medicine
DX: A41.9 Sepsis, unspecified organism (principal); L03.115 Cellulitis of right lower limb; E85.4 Organ-limited amyloidosis; D68.61 Antiphospholipid syndrome; I13.0 Hypertensive heart and chronic kidney disease with heart failure and stage 1 through stage 4 chronic kidney disease, or unspecified chronic kidney disease; L97.318 Non-pressure chronic ulcer of right ankle with other specified severity; N17.9 Acute kidney failure, unspecified; D81.9 Combined immunodeficiency, unspecified; Z59.10 Inadequate housing, unspecified; E83.51 Hypocalcemia; R73.9 Hyperglycemia, unspecified; D50.9 Iron deficiency anemia, unspecified; Z79.899 Other long term (current) drug therapy; L99 Other disorders of skin and subcutaneous tissue in diseases classified elsewhere; E78.5 Hyperlipidemia, unspecified; M79.661 Pain in right lower leg; I50.9 Heart failure, unspecified; M17.12 Unilateral primary osteoarthritis, left knee; K21.9 Gastro-esophageal reflux disease without esophagitis; M51.26 Other intervertebral disc displacement, lumbar region; J45.909 Unspecified asthma, uncomplicated; E89.0 Postprocedural hypothyroidism; Z96.651 Presence of right artificial knee joint; Z79.52 Long term (current) use of systemic steroids; N18.31 Chronic kidney disease, stage 3a; I87.2 Venous insufficiency (chronic) (peripheral); Z22.322 Carrier or suspected carrier of Methicillin resistant Staphylococcus aureus; E83.39 Other disorders of phosphorus metabolism; N08 Glomerular disorders in diseases classified elsewhere; D89.1 Cryoglobulinemia; Z59.82 Transportation insecurity; R45.89 Other symptoms and signs involving emotional state; R65.20 Severe sepsis without septic shock
CPT/HCPCS: 36556; 97602; 00123; 36415; 36430; 36592; 71045; 80048; 80053; 82306; 82805; 84145; 85027; 86850; 86900; 86901; 86920; 87040; 87641; 93005; 94640; 96365; 96367; 97161; 97530; 99222; 99285; 36600; 80202; 81003; 81015; 82310; 83605; 83735; 83880; 83970; 84484; 85014; 85018; 85025; 85610; 85730; 86140; 87086; 93010; 93971; 94664; 99223; 99233; 99238; 99291; J0612; J0613; J0690; J0692; J1650; J1720; J1938; J3373; J7512; P9016

== ENCOUNTER 2025-05-20 07:03 | Inpatient (IN) | payer MEDICARE, MEDICAID, SELFPAY ==
[2025-05-20] VITALS (68 sets, daily range): BP systolic 160–205; BP diastolic 80–102; PULSE 47–118; RESP 10–34; TEMP 36.2–36.7; O2SAT 84–98
--- NOTE | 2025-05-20 07:00 | RT.EKG_ITS ---
APPROVED REPORT Exam: Resting ECG Reason for Exam: sob Patient Location: E HR:114 bpm ECG Measurements Heart Rate 114 AXIS IA 146 P 65 QRSd 109 QRS -27 QT 357 T 121 QTc 491 Conclusion Sinus tachycardia, rate 114 Borderline QTc prolongation at 491ms Q waves lead III, aVL, V1-V4, unchanged from priors No STEMI
--- NOTE | 2025-05-20 07:14 | W.ED.GENAD ---
Discharge Plan Disposition Patient Disposition: Admit to [facility] Condition: Stable Discharge Details Clinical Impression: Flash pulmonary edema, Acute exacerbation of CHF (congestive heart failure), Demand ischemia Primary Care Provider: Randy Mauricio ED Provider: Nicole Peña Home Meds and New Rx's Prescriptions: No Action albuterol sulfate [ProAir HFA] 90 mcg/actuation HFA aerosol inhaler 2 puff Inhalation Q6H PRN (Reason: shortness of breath) hydroxychloroquine 200 MG tablet 200 mg PO DAILY Qty: 30 amlodipine 2.5 mg tablet 2.5 mg PO DAILY calcium carbonate [Oyster Shell Calcium] 500 mg calcium (1,250 mg) Tablet 500 mg PO DAILY acetaminophen 500 mg tablet 1,000 mg PO Q8H PRN (Reason: pain) Qty: 90 3RF gabapentin 400 mg capsule 400 mg PO BID Patient Comments: TAKE ONE CAPSULE BY MOUTH TWICE A DAY pramipexole 0.125 mg tablet 0.25 mg PO QPM Patient Comments: TAKE TWO TABLETS BY MOUTH EVERY EVENING AT BEDTIME FOR RESTLESS LEGS aspirin 81 mg Tablet,Delayed Release (Dr/Ec) 81 mg PO DAILY prednisone 20 mg tablet 40 mg PO DAILY Patient Comments: TAKE TWO TABLETS BY MOUTH EVERY DAY FOR 30 DAYS sulfamethoxazole-trimethoprim 800-160 mg tablet 1 tab PO .COMPLEX Patient Comments: TAKE 1 TABLET BY MOUTH THREE TIMES WEEKLY ON MONDAY, MONDAY, AND MONDAY FOR 30 DAYS Rx Instructions: 1 tab orally monday, monday and monday; labetalol 100 mg tablet 100 mg PO DAILY cholecalciferol (vitamin D3) 1,250 mcg (50,000 unit) capsule 1,250 mcg PO .COMPLEX Patient Comments: TAKE ONE CAPSULE BY MOUTH THREE TIMES WEEKLY FOR 5 WEEKS Rx Instructions: 1,250 mcg orally 3 times a week; simvastatin 40 mg tablet 40 mg PO DAILY fluticasone furoate [Arnuity Ellipta] 100 mcg/actuation blister with device 1 inh INHALATION DAILY Patient Comments: INHALE ONE PUFF BY MOUTH EVERY DAY magnesium oxide 500 mg magnesium tablet 500 mg PO DAILY Patient Comments: TAKE ONE TABLET BY MOUTH EVERY DAY levothyroxine 150 mcg tablet 150 mcg PO DAILY Patient Comments: TAKE ONE TABLET BY MOUTH EVERY DAY doxycycline hyclate 100 mg Capsule 100 mg PO BID Qty: 14 0RF amoxicillin 875 mg Tablet 875 mg PO BID Qty: 14 0RF prednisone 10 mg tablet 30 mg PO DAILY Qty: 120 0RF HPI General Mode of arrival: EMS. Date/Time Provider Initiated Documentation: 05/20/25 07:05. Limitations to Documentation: no limitations. Information obtained by: patient, EMS and old records reviewed. HPI Narrative: This is a 65-year-old female patient with a past medical history significant for CHF, lupus, hypertension, cryoglobulinemic glomerulonephritis and CKD, discharged from our hospital yesterday for sepsis due to a right lower extremity cellulitis, brought in by EMS for sudden severe shortness of breath. Per EMS, the patient went out to her porch hoping the cool air would help her respiratory distress. She reports that her shortness of breath started suddenly overnight, did not improve when she went outside. She was noted by EMS to have peripheral edema, was started on supplemental oxygen, 4 L/min by nasal cannula by fire. She was noted to be hypertensive and tachycardic. The patient reports that she is not experiencing chest pain, has not had a cough or sputum production. She is experiencing some pain in the area of her right lower extremity where her infection/wound is Related Data Home Medications ?Medication ?Instructions ?Recorded ?Confirmed hydroxychloroquine 200 mg tablet 200 mg PO DAILY #30 tab-caps 11/16/16 05/20/25 albuterol sulfate 90 mcg/actuation 2 puff inhalation Q6H PRN 10/04/18 05/20/25 aerosol inhaler (ProAir HFA) shortness of breath calcium carbonate (Oyster Shell 500 mg PO DAILY 07/05/19 05/20/25 Calcium) acetaminophen 500 mg tablet 1,000 mg (2 x 500 mg) PO Q8H PRN 07/17/19 05/20/25 pain #90 tabs aspirin 81 mg tablet,delayed 81 mg PO DAILY 05/08/20 05/20/25 release gabapentin 400 mg capsule 400 mg PO BID 05/20/24 05/20/25 amlodipine 2.5 mg tablet 2.5 mg PO DAILY 01/31/25 05/20/25 pramipexole 0.125 mg tablet 0.25 mg PO QPM 04/18/25 05/20/25 cholecalciferol (vitamin D3) 1,250 1,250 mcg PO .COMPLEX 05/15/25 05/20/25 mcg (50,000 unit) capsule fluticasone furoate 100 1 inh inhalation DAILY 05/15/25 05/20/25 mcg/actuation blister powder for inhalation (Arnuity Ellipta) labetalol 100 mg tablet 100 mg PO DAILY 05/15/25 05/20/25 levothyroxine 150 mcg tablet 150 mcg PO DAILY 05/15/25 05/20/25 magnesium oxide 500 mg PO DAILY 05/15/25 05/20/25 prednisone 20 mg tablet 40 mg PO DAILY 05/15/25 05/20/25 simvastatin 40 mg tablet 40 mg PO DAILY 05/15/25 05/20/25 sulfamethoxazole 800 1 tab PO .COMPLEX 05/15/25 05/20/25 mg-trimethoprim 160 mg tablet amoxicillin 875 mg tablet 875 mg PO BID #14 tabs 05/19/25 05/20/25 doxycycline hyclate 100 mg capsule 100 mg PO BID #14 caps 05/19/25 05/20/25 prednisone 10 mg tablet 30 mg (3 x 10 mg) PO DAILY #120 05/19/25 05/20/25 tabs Previous Rx's ?Medication ?Instructions ?Recorded acetaminophen 500 mg tablet 1,000 mg (2 x 500 mg) PO Q8H PRN 07/17/19 pain #90 tabs amoxicillin 875 mg tablet 875 mg PO BID #14 tabs 05/19/25 doxycycline hyclate 100 mg capsule 100 mg PO BID #14 caps 05/19/25 prednisone 10 mg tablet 30 mg (3 x 10 mg) PO DAILY #120 05/19/25 tabs Allergies Allergy/AdvReac Type Severity Reaction Status Date / Time No Known Allergies Allergy Verified 05/20/25 07:13 General Stated Complaint: SOB PRISCILLA: 3 Exam Narrative Exam Narrative: Gen: Awake and alert, appears acutely unwell HEENT: Non-icteric sclera, nasal cannula in place Neck: Supple Lungs: Tachypnea, able to speak in 2-3 word sentences. Lung sounds largely clear, quiet end expiratory wheezes appreciated without rhonchi or rales CV: Appears well perfused, heart with tachycardic rate but regular rhythm, strong distal pulses Abdomen: Non-distended, soft, nontender, small bruising consistent with Lovenox injections while inpatient MSK: Moves 4 extremities without apparent limitation in ROM. 2+ bilateral peripheral edema is appreciated, the patient does have a wound over the medial malleolus of the right lower extremity with some ready skin changes Skin: Visualized skin without rashes, cyanosis. Neuro: No obvious focal deficits or facial asymmetry. Speaks in full, clear sentences. Course Vital Signs Vital signs: Vital Signs Pulse 111 H 05/20/25 07:06 Respiratory Rate 28 H 05/20/25 07:06 Blood Pressure 193/102 H 05/20/25 07:06 Pulse Oximetry 96 05/20/25 07:06 Temperature 36.7 C 05/20/25 07:12 Temperature Source Oral 05/20/25 07:12 Pulse 111 H 05/20/25 07:12 Respiratory Rate 28 H 05/20/25 07:12 Blood Pressure 193/102 H 05/20/25 07:12 Blood Pressure Position Sitting 05/20/25 07:12 Pulse Oximetry 96 05/20/25 07:12 Oxygen Delivery Method Nasal Cannula 05/20/25 07:12 Oxygen Flow Rate 4 05/20/25 07:12 Pain Level 0 05/20/25 07:12 Medical Decision Making This is a 65-year-old female patient presenting for evaluation of shortness of breath and peripheral edema. Differential includes but is not limited to scape, CHF exacerbation, certainly considered ACS, arrhythmia, pericarditis and myocarditis. Considered reactive airway disease exacerbation, pneumonia, bronchitis. The patient was recently anticoagulated and does not have unilateral leg swelling or tenderness, and I have a lower concern for pulmonary embolism. Exam less consistent with pneumothorax, the patient is on antibiotics and I suspect that her tachycardia is due to respiratory distress rather than sepsis. Certainly considered metabolic and electrolyte derangement, kidney injury, liver disease. We will obtain laboratory studies to include CBC, CMP, magnesium, BMP, troponin, and VBG. I will obtain a Fluvid. Given the evidence of pulmonary edema and LV dysfunction on [id number] ultrasound, we will move forward with treatment for flash pulmonary edema, provide the patient with 2 sublingual nitroglycerin while awaiting nitroglycerin infusion, and will provide the patient with 40 mg of Lasix. Once we are able to get the patient calm and settled we will initiate BiPAP. -Worsening leukocytosis to 29. The patient is currently on antibiotics, and does take chronic steroids, though certainly infections including pneumonia, worsening of her cellulitis were considered. She has an improving anemia at 9.8 and no thrombocytopenia. INR 1.1, VBG without acidosis or hypercarbia. Chemistry panel reveals no significant electrolyte derangements, renal dysfunction is actually improving compared to priors, no evidence of liver pathology other than a slightly elevated alkaline phosphatase to 171. Initial troponin is elevated to 220, 1 hour delta is stable at 225. BNP is markedly elevated greater than 35,000. Chest x-ray obtained and reviewed by myself, showing bilateral interstitial edema consistent with our POCUS images concerning for flash pulmonary edema. The patient required Valium for BiPAP initiation, and despite redosing was unable to tolerate the mask for more than approximately 35 minutes. She remains with increased work of breathing, though her oxygenation is stable and safe. I reach out to our hospitalist who has graciously accepted this patient for admission, and counseled the patient that we would retry the BiPAP after a break. I did provide her with a dose of IV Tylenol for reported leg pain. The patient was transferred to the hospitalist service without incident. Nicole Peña, Quality:SDOH Health Related Social Needs: Health related social needs inadequate housing transpo insecurity lonely/isolated Health related social needs details [facility] Critical Care Time Critical Care Time Critical Care Time: Yes Total Critical Care Time: 40 Attestation: Upon my evaluation, this patient had a high probability of imminent or life-threatening deterioration due to flash pulmonary edema with demand ischemia, requiring BiPAP and nitroglycerin drip, which required my direct attention, intervention, and personal management. I have personally provided 40 minutes of critical care time exclusive of time spent on separately billable procedures. Time includes review of laboratory data, radiology results, discussion with consultants, and monitoring for potential decompensation. Interventions were performed as documented above. Nicole Peña MD [facility] All Active Problems (Updated 05/20/25 @ 10:29 by Nicole Peña MD) Demand ischemia (Acute) Flash pulmonary edema (Acute) Acute hypoxemic respiratory failure (Acute) Chronic ulcer of right leg (Acute) Cryoglobulinemic glomerulonephritis (Acute) Pain in right leg (Acute) Microcytic anemia (Acute) Hyperglycemia, drug-induced (Acute) Hyperkalemia (Acute) Hypokalemia (Acute) Lupus nephritis (Acute) On deep vein thrombosis (DVT) prophylaxis (Acute) Acute exacerbation of CHF (congestive heart failure) (Acute) Acute kidney injury superimposed on CKD (Acute) Hematuria (Acute) GAVIN (acute kidney injury) (Acute) Mild peripheral edema (Acute) CHF (congestive heart failure) (Chronic) Cutaneous amyloidosis (Acute) Leg wound, right (Acute) Chronic wound (Acute) Left knee DJD (Chronic) Depo-medrol injection: 02/27/25; 11/28/2024; 08/29/24; 05/30/2024; 02/26/2024; 11/27/2023; 08/17/23 Headache (Acute) Urinary tract infection (Acute) Colovaginal fistula (Acute) Diverticulitis of sigmoid colon (Acute) Amyloidosis (Chronic) Herniated nucleus pulposus, lumbar (Chronic) Antiphospholipid syndrome (Chronic) Trigger thumb of right hand (Acute) Trigger thumb of left hand (Chronic) Nasal vestibulitis (Acute 11/02/17) Nasal congestion (Acute 06/19/14) Deviated nasal septum (Acute 06/19/14) Cephalgia (Acute 11/20/14) Constipation (Chronic) as above HTN (hypertension) (Chronic) GERD (gastroesophageal reflux disease) (Chronic) stable Lupus (Chronic) Medical History Lupus (systemic lupus erythematosus) Hypertension Primary localized cutaneous amyloidosis Cellulitis of right lower limb Lymphocytopenia Normal colonoscopy [place] 11/13/[address] 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, severe diverticular dz, repeat 10 years. mg Hypocalcemia Asthma Allergic rhinitis Abnormal mammogram of right breast Degenerative joint disease Hyperlipidemia Pericarditis Eczema Chest wall pain Insomnia Sciatica, left side Surgical History 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) History of bone marrow biopsy S/P thyroidectomy H/O: hysterectomy Tonsillectomy Social History (Updated 05/15/25 @ 15:39 by Daniel Hinkle) Smoking/Tobacco Use Status: Former Tobacco Use Quit Date: 08/14/99 Smoking risk assessment performed?: Yes Alcohol Intake: current Alcohol Intake frequency: a few times a week Alcohol type: beer and wine Drug use: Never Substance use type: does not use Household members: none Housing: house Current gender identity: female Do you feel safe at home: Yes Do you feel safe in your relationship?: Yes Additional Social history: Lives alone, formerly cared for older man who in 2024. 2 cats. no travel. POCUS Exam (ED) Limited Cardiac Exam DATE OF EXAM: 05/20/25 TIME OF EXAM: 07:35 PROVIDER THAT PERFORMED THE STUDY: Nicole Peña REASON FOR EXAM: Dyspnea VISUALIZED STRUCTURES: Left atrium, Left ventricle, Right ventricle, Aortic valve, Mitral valve and Interventricular septum VIEW OBTAINED: Parasternal long-axis, Parasternal short-axis and Other (b/l lungs) PERTINENT FINDINGS/IMPRESSION: LV dysfunction :severe and Other confluent B-lines b/l ; No pericardial effusion INCIDENTAL FINDINGS: Patient did not tolerate further views due to her dyspnea and difficulty with positioning. However, images obtained were sufficient to identify severe LV dysfunction and confluent B-lines, concerning for pulmonary edema and heart failure exacerbation Exam complete
--- NOTE | 2025-05-20 07:45 | DI.RAD_ITS ---
Exam(s) XR PORTABLE CHEST AP EXAM: XR PORTABLE CHEST AP CLINICAL HISTORY: SOB TECHNIQUE: 2D digital imaging was performed of the chest. One image was obtained. An AP view was obtained. COMPARISON: CR,XR XR PORTABLE CHEST AP POST LINE from 05/16/2025 FINDINGS: MEDIASTINUM: Normal. HEART: The heart is at the upper limits of normal in size. PULMONARY VASCULATURE: There does appear to be bilateral pulmonary venous congestion. LUNGS: Bilateral diffuse interstitial infiltrates are seen. PLEURAL SPACE: There is blunting of the costophrenic angle suggesting bilateral pleural effusions. There is also fluid seen in the right middle fissure. BONE:Within normal limits for the patient's age. OTHER FINDINGS:Normal. IMPRESSION: 1. Diffuse bilateral interstitial infiltrates with small bilateral pleural effusions. The findings are suspicious for fluid overload/congestive heart failure. An interstitial pneumonia may also be considered. Please correlate clinically. 2. Findings suggestive of bilateral pulmonary venous congestion. DATA REPOSITORY: RADIATION DOSE DELIVERED:
[2025-05-20 08:08] LABS: BE (Venous) -4 mmol/L (-2-3); HCO3 (Venous) 20 mmol/L (23-28); O2 Sat (Venous) 74 %; TCO2 (Venous) 19 mmol/L (24-29); pCO2 (Venous) 31 mmHg (41-51); pO2 (Venous) 41 mmHg
[2025-05-20] MEDS: nitroGLYcerin 0.4 MG TAB 0.8 MG SL (08:08)
[2025-05-20] MEDS: nitroGLYcerin in D5W 50 MG/250 ML BTL 30 MG IV ×2 (08:08→15:56)
[2025-05-20 08:09] LABS: Abs Immature Grans 1.46 10^3/uL (0.0-0.06); HCT 30.6 % (36.0-46.0); HGB 9.8 g/dL (11.2-15.7); MCH 27.3 pg (27.0-33.0); MCHC 32.0 % (32.0-36.0); MCV 85 fL (80-95); MPV 9.8 fL (8.0-11.0); RBC 3.59 10^6/uL (3.93-5.22); RDW 16.5 % (11.7-14.6); RDW-SD 51.9 fL
[2025-05-20] MEDS: Furosemide 40 MG/4 ML VIAL IVP ×2 (08:09→15:58)
[2025-05-20 08:12] LABS: Platelet Count 361 10^3/uL (130-400)
[2025-05-20 08:14] LABS: WBC 29.58 10^3/uL (4.4-10.8)
[2025-05-20 08:34] LABS: ALT 14 U/L (14-59); AST 27 U/L (15-37); Albumin 2.5 g/dL (3.4-5.0); Alkaline Phosphatase 171 U/L (46-116); Anion Gap 13.4 mmol/L (3-11); BUN 51 mg/dL (7-18); Bilirubin, Total 0.6 mg/dL (0.2-1.0); CO2 21.6 mmol/L (21.0-32.0); Calcium 8.5 mg/dL (8.5-10.1); Chloride 106 mmol/L (98-107); Estimated GFR 46.21 (mL/min/1.73m2); Glucose 122 mg/dL (74-106); Magnesium 2.3 mg/dL (1.8-2.4); Potassium 4.3 mmol/L (3.5-5.1); Sodium 141 mmol/L (136-145); Total Protein 6.5 g/dL (6.4-8.2)
[2025-05-20 08:35] LABS: INR 1.1 (0.9-1.1); Prothrombin Time 11.3 sec (9.1-11.1)
[2025-05-20 08:39] LABS: Immature Grans % 0.0 %
[2025-05-20 08:40] LABS: RBC Morphology Normal
[2025-05-20 08:42] LABS: Troponin I 220 ng/L (<or=51)
[2025-05-20] MEDS: Aspirin 81 MG CHEW 324 MG CH (08:49)
[2025-05-20] MEDS: diazePAM 10 MG/2 ML SYR 2 MG IVP ×2 (09:08→09:42)
[2025-05-20 09:33] LABS: COVID-19 PCR Negative (Negative); RSV PCR Negative (Negative)
[2025-05-20 09:44] LABS: Troponin I 225 ng/L (<or=51)
[2025-05-20] MEDS: ACETAMINOPHEN 1,000 MG/100 ML BAG 400 MG IVPB (10:00)
--- NOTE | 2025-05-20 10:02 | W.PM.HP.N ---
Date of service: 05/20/25 Time of Service: 10:02 Assessment and Plan Assessment and plan (1) Acute exacerbation of CHF (congestive heart failure): Status: Acute Assessment and plan: -patient presented with elevated BP, hypoxia, and signs of pulmonary edema on CXR -s/p 40mg IV lasix in ED, will continue BID and follow urine output - holding home labetolol and amlodipine -last TTE on 04/19 showed EF 65%, normal wall motion, and dilated left atria (2) Acute hypoxemic respiratory failure: Status: Acute Assessment and plan: -secondary to CHF exacerbation as noted above - Had been briefly on BiPAP, and up to 4 L nasal cannula - Has been transition to room air as of the time of my exam - Goal oxygen saturation 88 to 92% (3) Cellulitis of leg, right: Status: Resolved Assessment and plan: -diagnosed during previous hospitalization -will continue PO doxy and amoxicillin (4) Chronic ulcer of right leg: Status: Acute Assessment and plan: -as noted above - Will continue wound care with Santyl and dressings (5) Cryoglobulinemic glomerulonephritis: Status: Acute Assessment and plan: -Not Lupus Nephritis. Recent diagnosed s/p biopsy, treated with prednisone. -Renal function improving since previous admission -continue prednisone pending plan from Dr. Rolle from [facility] nephrology at decreased dose of 30mg daily -Continue PJP prophylaxis with 3xWeek TMP/SMX as well unitl off steroids, monitor potassium. (6) Microcytic anemia: Status: Acute Assessment and plan: -chornic, follow. (7) Lupus (systemic lupus erythematosus): Assessment and plan: -This has been stable on hydroxycholoroquine. -Case reviewed with [facility] rheumatology fellow. No change in management. (8) On deep vein thrombosis (DVT) prophylaxis: Status: Acute Assessment and plan: -u/s negative for VTE, on exoxaparin for prophylaxis -Known hypercoagulable state, but had hemorrhagic pericardial effusion while on full anticoagulation with warfarin. History of Present Illness History of Present Illness Chief Complaint: shortness of breath Narrative: 65-year-old female with a past medical history of lupus, cryoglobulin nephritis, CKD, chronic ulcer of the right leg with recent hospitalization for severe sepsis and cellulitis presents back to the emergency department less than 24 hours after being discharged for sudden onset shortness of breath. Patient states that she was doing well when she was discharged, had no shortness of breath or swelling in her lower extremities, but beginning overnight she had sudden onset of shortness of breath. She tried dealing with it overnight and then in the morning called EMS where she was found out on her porch thinking the cool air would help her respiratory distress. She denied any fevers, lightheadedness, dizziness, chest pain, nausea vomiting or diarrhea. In the emergency department the patient was noted as having elevated blood pressure up to 205/100, hypoxia requiring up to 4 L nasal cannula to maintain oxygen saturation greater than 92%, and tachycardia with heart rate of 100. Physical exam showed crackles in bilateral bases and significant and rapid accumulation of bilateral lower extremity weeping edema. CBC was remarkable for elevation of white blood cells from 16-29 (patient was on high stress dose steroids during previous hospitalization and was discharged on 30 mg p.o. prednisone), CMP showed improvement of creatinine down to 1.3 (was 2.0 two days prior), and a troponin of 220, though EKG was without any ST elevations, ST depressions or T wave inversions. Thought was that elevated troponin was due to CKD as patient was also without chest pain. However, given flash pulmonary edema patient was started on nitro drip and was given 40 mg IV Lasix with immediate urine output. Patient was also trialed on BiPAP for short period of time but was unable to tolerate. At which time emergency room provider paged hospitalist for admission for patient with acute exacerbation of HFrEF with acute hypoxic respiratory failure. Review of Systems All systems reviewed & are unremarkable except as noted in HPI and below PFSH All Active Problems (Updated 05/20/25 @ 10:29 by Nicole Peña MD) Demand ischemia (Acute) Flash pulmonary edema (Acute) Acute hypoxemic respiratory failure (Acute) Chronic ulcer of right leg (Acute) Cryoglobulinemic glomerulonephritis (Acute) Pain in right leg (Acute) Microcytic anemia (Acute) Hyperglycemia, drug-induced (Acute) Hyperkalemia (Acute) Hypokalemia (Acute) Lupus nephritis (Acute) On deep vein thrombosis (DVT) prophylaxis (Acute) Acute exacerbation of CHF (congestive heart failure) (Acute) Acute kidney injury superimposed on CKD (Acute) Hematuria (Acute) GAVIN (acute kidney injury) (Acute) Mild peripheral edema (Acute) CHF (congestive heart failure) (Chronic) Cutaneous amyloidosis (Acute) Leg wound, right (Acute) Chronic wound (Acute) Left knee DJD (Chronic) Depo-medrol injection: 02/27/25; 11/28/2024; 08/29/24; 05/30/2024; 02/26/2024; 11/27/2023; 08/17/23 Headache (Acute) Urinary tract infection (Acute) Colovaginal fistula (Acute) Diverticulitis of sigmoid colon (Acute) Amyloidosis (Chronic) Herniated nucleus pulposus, lumbar (Chronic) Antiphospholipid syndrome (Chronic) Trigger thumb of right hand (Acute) Trigger thumb of left hand (Chronic) Nasal vestibulitis (Acute 11/02/17) Nasal congestion (Acute 06/19/14) Deviated nasal septum (Acute 06/19/14) Cephalgia (Acute 11/20/14) Constipation (Chronic) as above HTN (hypertension) (Chronic) GERD (gastroesophageal reflux disease) (Chronic) stable Lupus (Chronic) Medical History Lupus (systemic lupus erythematosus) Hypertension Primary localized cutaneous amyloidosis Cellulitis of right lower limb Lymphocytopenia Normal colonoscopy [place] 11/13/[address] Natalya Styles at [facility], severe diverticular dz, repeat 10 years. mg Hypocalcemia Asthma Allergic rhinitis Abnormal mammogram of right breast Degenerative joint disease Hyperlipidemia Pericarditis Eczema Chest wall pain Insomnia Sciatica, left side Surgical History 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) History of bone marrow biopsy S/P thyroidectomy H/O: hysterectomy Tonsillectomy Social History (Updated 05/15/25 @ 15:39 by Daniel Hinkle) Smoking/Tobacco Use Status: Former Tobacco Use Quit Date: 08/14/99 Smoking risk assessment performed?: Yes Alcohol Intake: current Alcohol Intake frequency: a few times a week Alcohol type: beer and wine Drug use: Never Substance use type: does not use Household members: none Housing: house Current gender identity: female Do you feel safe at home: Yes Do you feel safe in your relationship?: Yes Additional Social history: Lives alone, formerly cared for older man who in 2024. 2 cats. no travel. Meds Allergies and Home Medications Allergies Allergy/AdvReac Type Severity Reaction Status Date / Time morphine AdvReac Dizziness/L Verified 05/20/25 13:24 ighthead Home Medications ?Medication ?Instructions ?Recorded ?Confirmed ?Type hydroxychloroquine 200 mg tablet 200 mg PO DAILY #30 tab-caps 11/16/16 05/20/25 History albuterol sulfate 90 mcg/actuation 2 puff inhalation Q6H PRN 10/04/18 05/20/25 History aerosol inhaler (ProAir HFA) shortness of breath calcium carbonate (Oyster Shell 500 mg PO DAILY 07/05/19 05/20/25 History Calcium) acetaminophen 500 mg tablet 1,000 mg (2 x 500 mg) PO Q8H PRN 07/17/19 05/20/25 Rx pain #90 tabs aspirin 81 mg tablet,delayed 81 mg PO DAILY 05/08/20 05/20/25 History release gabapentin 400 mg capsule 400 mg PO BID 05/20/24 05/20/25 History amlodipine 2.5 mg tablet 2.5 mg PO DAILY 01/31/25 05/20/25 History pramipexole 0.125 mg tablet 0.25 mg PO QPM 04/18/25 05/20/25 History cholecalciferol (vitamin D3) 1,250 1,250 mcg PO .COMPLEX 05/15/25 05/20/25 History mcg (50,000 unit) capsule fluticasone furoate 100 1 inh inhalation DAILY 05/15/25 05/20/25 History mcg/actuation blister powder for inhalation (Arnuity Ellipta) labetalol 100 mg tablet 100 mg PO DAILY 05/15/25 05/20/25 History levothyroxine 150 mcg tablet 150 mcg PO DAILY 05/15/25 05/20/25 History magnesium oxide 500 mg PO DAILY 05/15/25 05/20/25 History prednisone 20 mg tablet 40 mg PO DAILY 05/15/25 05/20/25 History simvastatin 40 mg tablet 40 mg PO DAILY 05/15/25 05/20/25 History sulfamethoxazole 800 1 tab PO .COMPLEX 05/15/25 05/20/25 History mg-trimethoprim 160 mg tablet amoxicillin 875 mg tablet 875 mg PO BID #14 tabs 05/19/25 05/20/25 Rx doxycycline hyclate 100 mg capsule 100 mg PO BID #14 caps 05/19/25 05/20/25 Rx prednisone 10 mg tablet 30 mg (3 x 10 mg) PO DAILY #120 05/19/25 05/20/25 Rx tabs Exam Narrative Exam Narrative: Fatigued, anxious appearing older female laying in bed in no acute distress, transitioned to room air at the time of my exam, ANO x 4, heart regular rhythm, lungs with minimal bilateral basilar crackles, abdomen soft, nontender, nondistended, significant bilateral lower extremity weeping edema that was not present at discharge on 05/19/2025 Results Labs 05/20/25 07:58 05/20/25 07:58 Labs: Laboratory Results - last 24 hr 05/20/25 05/20/25 05/20/25 07:13 07:58 08:46 WBC 29.58 H* RBC 3.59 L Hgb 9.8 L Hct 30.6 L MCV 85 MCH 27.3 MCHC 32.0 RDW 16.5 H Plt Count 361 D MPV 9.8 Immature Gran % 0.0 Neutrophils % 84.0 Lymphocytes % 5.0 Monocytes % 10.0 Eosinophils % 0.0 Basophils % 0.0 Myelocytes % 1 Nucleated RBC % 0.1 Absolute Neutrophils 24.85 H Absolute Lymphocytes 1.48 Absolute Monocytes 2.96 H Absolute Eosinophils 0.00 Absolute Basophils 0.00 RBC Morphology Normal PT 11.3 H INR 1.1 D-Dimer Cancelled VBG pH 7.42 H VBG pCO2 31 L VBG pO2 41 VBG HCO3 20 L VBG Total CO2 19 L VBG O2 Saturation 74 VBG Base Excess -4 L Sodium 141 Potassium 4.3 Chloride 106 Carbon Dioxide 21.6 Anion Gap 13.4 H BUN 51 H Creatinine 1.3 H Est GFR (CKD-EPI 2020) 46.21 Glucose 122 H Calcium 8.5 Magnesium 2.3 Total Bilirubin 0.6 AST 27 ALT 14 Alkaline Phosphatase 171 H Troponin I 220 H* Total Protein 6.5 Albumin 2.5 L COVID-19 Source Nasopharynx SARS-CoV-2 (PCR) Negative Influenza Type A (PCR) Negative Influenza Type B (PCR) Negative RSV (PCR) Negative 05/20/25 08:58 WBC RBC Hgb Hct MCV MCH MCHC RDW Plt Count MPV Immature Gran % Neutrophils % Lymphocytes % Monocytes % Eosinophils % Basophils % Myelocytes % Nucleated RBC % Absolute Neutrophils Absolute Lymphocytes Absolute Monocytes Absolute Eosinophils Absolute Basophils RBC Morphology PT INR D-Dimer VBG pH VBG pCO2 VBG pO2 VBG HCO3 VBG Total CO2 VBG O2 Saturation VBG Base Excess Sodium Potassium Chloride Carbon Dioxide Anion Gap BUN Creatinine Est GFR (CKD-EPI 2020) Glucose Calcium Magnesium Total Bilirubin AST ALT Alkaline Phosphatase Troponin I 225 H* Total Protein Albumin COVID-19 Source SARS-CoV-2 (PCR) Influenza Type A (PCR) Influenza Type B (PCR) RSV (PCR) Last Vital Signs Temp 98.0 F 05/20/25 07:12 Pulse 112 H 05/20/25 09:14 Resp 34 H 05/20/25 09:14 BP 178/98 H 05/20/25 09:01 Pulse Ox 91 L 05/20/25 09:56 Time Spent Time spent with Patient: >75 minutes Time was spent: preparing to see the patient(eg.review tests), obtaining and/or reviewing separately otained hiistory, ordering medications,tests, procedures, referring, communicating with other health healthcare business analyst, indepentently interpreting results, counseling the patient and care coordination
[2025-05-20 10:10] LABS: NT-proBNP > 35000 pg/mL (<300)
[2025-05-20] MEDS: oxyCODONE 5 MG TAB PO (11:56)
[2025-05-20 12:46] LABS: Troponin I 249 ng/L (<or=51)
[2025-05-20] MEDS: Normal Saline Flush 10 ML SYR IVP ×2 (13:16→22:39)
[2025-05-20] MEDS: Magnesium Oxide 400 MG TAB PO (13:17)
[2025-05-20] MEDS: HYDROmorphone 2 MG/ML SYR 1 MG IVP ×2 (13:35→17:38)
[2025-05-20] MEDS: nitroGLYcerin in D5W 50 MG/250 ML BTL 36 MG IV (17:17)
[2025-05-20] MEDS: Gabapentin 400 MG CAP PO (20:39)
[2025-05-20] MEDS: Zolpidem 5 MG TAB PO (20:39)
[2025-05-20] MEDS: Doxycycline Hyclate 100 MG CAP PO (20:39)
[2025-05-20] MEDS: Simvastatin 40 MG TAB PO (20:40)
[2025-05-20] MEDS: Pramipexole 0.25 MG TAB 0.125 MG PO (20:40)
[2025-05-20] MEDS: nitroGLYcerin in D5W 50 MG/250 ML BTL 37.5 MG IV (22:38)
[2025-05-21] VITALS (73 sets, daily range): BP systolic 132–162; BP diastolic 69–103; PULSE 51–108; RESP 8–34; TEMP 36.2–36.7; O2SAT 92–99
[2025-05-21] MEDS: nitroGLYcerin in D5W 50 MG/250 ML BTL 37.5 MG IV (05:19)
[2025-05-21 06:21] LABS: HCT 31.0 % (36.0-46.0); HGB 9.5 g/dL (11.2-15.7); MCH 26.6 pg (27.0-33.0); MCHC 30.6 % (32.0-36.0); MCV 87 fL (80-95); MPV 10.1 fL (8.0-11.0); Platelet Count 277 10^3/uL (130-400); RBC 3.57 10^6/uL (3.93-5.22); RDW 16.6 % (11.7-14.6); RDW-SD 52.8 fL; WBC 17.40 10^3/uL (4.4-10.8)
[2025-05-21 06:33] LABS: Anion Gap 15.6 mmol/L (3-11); BUN 54 mg/dL (7-18); CO2 20.4 mmol/L (21.0-32.0); Calcium 8.3 mg/dL (8.5-10.1); Chloride 106 mmol/L (98-107); Estimated GFR 63.30 (mL/min/1.73m2); Glucose 119 mg/dL (74-106); Potassium 4.2 mmol/L (3.5-5.1); Sodium 142 mmol/L (136-145)
[2025-05-21] MEDS: Levothyroxine 150 MCG TAB PO (06:38)
[2025-05-21] MEDS: HYDROmorphone 2 MG/ML SYR 1 MG IVP ×2 (07:01)
[2025-05-21] MEDS: Normal Saline Flush 10 ML SYR IVP ×3 (07:01→19:24)
--- NOTE | 2025-05-21 07:52 | PDOC.CMIN ---
Date of service: 05/21/25 Time of Service: 15:41 Care Management Initial Assmt Initial Assessment Reason for Hospitalization: CHF exacerbation, Acute Hypoxic resp Failure. Functional Status/Living Situation Patient Presentation: Francie was lying in bed in the ICU when CM met with her. She has had three hospital admissions within the past month. She presented to the Emergency Department via EMS with sudden onset of severe shortness of breath. Per report, Francie has shown cognitive improvement since this morning. Today, she reported feeling okay and was willing to engage in conversation. Francie resides alone in a single-family home in [facility], which she previously shared with her late . She reports being independent at baseline; however, her recent cellulitis has made managing at home more difficult. Home Health services were arranged at the time of her last discharge, but they were unable to initiate care before her most recent readmission. Francie is connected with the [facility] and is familiar with [facility] [employer] and other local community resources. She identified a local friend who is currently caring for her cats and is a reliable support. There are no known advanced directives on file. Francie may benefit from a palliative care consult in the future. CM will continue to follow. Town of Residence: [place] Resides with: Alone Significant Other/Family: Out of area (daughters live in [place]) Natural Supports: Has a friend locally who checks on her animals when she is hospitalized Employment Status: Retired Instrumental Activities of Daily Living (ADLs): Independent Medications Medication Management: No Issues/Barriers identified (CM discussed [facility] mail deliver which Francie is very interested in ) Physical Functioning/Mobility Assistive Device: None Advance Directives Advance Directives: Do you have an Advance Directive: N 11/13/18, 10:[address] [facility]: N 11/13/18, 10:31 Date Asked 05/20/25 05/20/25, 07:18 AD Date Reviewed COLST On File at [facility] COLST Date Scanned Code Status Resuscitation Status Full Code Portal Pt does not currently have a portal and education provided: Yes Insurance Coverage/Financial Issues Insurance: AARP/[id number] [facility] - [id number] Medicaid [facility] - [id number] FINANCIAL [employer] - [id number] Care Team Visit Care Team Role Provider Type Randy Maurciio Primary Care Provider NON-[facility] STAFF PHYSICIAN Nicole Peña MD Emergency Provider [facility] STAFF PHYSICIAN Kolby Montejo MD Admit Provider [facility] STAFF PHYSICIAN Attending Provider Discharge Potential Discharge Needs: PCP F/U Appt Anticipated Barriers to Discharge: None Identified Patient/Family Education Needs: Review discharge instructions, discuss Ask Me Three Transportation: Private vehicle Plan: Anticipate Francie will be discharged home, possibly with new home health services, when medically stable. She will follow up with her PCP and plan of care and transport with family. CM will follow and continue to assess for discharge planning needs. Social Determinants of Health Screening Will the Patient Participate in the Screening?: Declined to provide Do you worry about having a steady place to live?: no PFSH All Active Problems (Updated 05/21/25 @ 15:57 by Kolby Montejo MD) Encephalopathy (Acute) Demand ischemia (Acute) Flash pulmonary edema (Acute) Acute hypoxemic respiratory failure (Acute) Chronic ulcer of right leg (Acute) Cryoglobulinemic glomerulonephritis (Acute) Pain in right leg (Acute) Microcytic anemia (Acute) Hyperglycemia, drug-induced (Acute) Hyperkalemia (Acute) Hypokalemia (Acute) Lupus nephritis (Acute) On deep vein thrombosis (DVT) prophylaxis (Acute) Acute exacerbation of CHF (congestive heart failure) (Acute) Acute kidney injury superimposed on CKD (Acute) Hematuria (Acute) GAVIN (acute kidney injury) (Acute) Mild peripheral edema (Acute) CHF (congestive heart failure) (Chronic) Cutaneous amyloidosis (Acute) Leg wound, right (Acute) Chronic wound (Acute) Left knee DJD (Chronic) Depo-medrol injection: 02/27/25; 11/28/2024; 08/29/24; 05/30/2024; 02/26/2024; 11/27/2023; 08/17/23 Headache (Acute) Urinary tract infection (Acute) Colovaginal fistula (Acute) Diverticulitis of sigmoid colon (Acute) Amyloidosis (Chronic) Herniated nucleus pulposus, lumbar (Chronic) Antiphospholipid syndrome (Chronic) Trigger thumb of right hand (Acute) Trigger thumb of left hand (Chronic) Nasal vestibulitis (Acute 11/02/17) Nasal congestion (Acute 06/19/14) Deviated nasal septum (Acute 06/19/14) Cephalgia (Acute 11/20/14) Constipation (Chronic) as above HTN (hypertension) (Chronic) GERD (gastroesophageal reflux disease) (Chronic) stable Lupus (Chronic) Medical History Lupus (systemic lupus erythematosus) Hypertension Primary localized cutaneous amyloidosis Cellulitis of right lower limb Lymphocytopenia Normal colonoscopy [place] 11/13/[address] Natalya Styles at [facility], severe diverticular dz, repeat 10 years. mg Hypocalcemia Asthma Allergic rhinitis Abnormal mammogram of right breast Degenerative joint disease Hyperlipidemia Pericarditis Eczema Chest wall pain Insomnia Sciatica, left side Surgical History 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) History of bone marrow biopsy S/P thyroidectomy H/O: hysterectomy Tonsillectomy Social History (Updated 05/15/25 @ 15:39 by Daniel Hinkle) Smoking/Tobacco Use Status: Former Tobacco Use Quit Date: 08/14/99 Smoking risk assessment performed?: Yes Alcohol Intake: current Alcohol Intake frequency: a few times a week Alcohol type: beer and wine Drug use: Never Substance use type: does not use Household members: none Housing: house Current gender identity: female Do you feel safe at home: Yes Do you feel safe in your relationship?: Yes Additional Social history: Lives alone, formerly cared for older man who in 2024. 2 cats. no travel. Readmission Within the Past 30 Days Yes or No: Yes Date of First Admission Date of 1st Admission: 05/16/25 Date of this Admission Date of Admission: 05/20/25 This admission was: Through ED Office Visit Since 1st Admission Have you seen your PCP in the office since discharge?: No Had an appointment Been Scheduled?: No Describe barriers for scheduling or getting an appointment: readmission Speicalist Appointments Have you seen any other specialist since your 1st Admission?: Yes Date you saw the Specialist: 05/19 Specialist Seen: surgical I. Interview patient and/or Family Difficulty reaching your doctor or getting an office appt?: No Have you had trouble purchasing/ or taking medication?: No Have you had trouble with getting meals at home?: No Were services received that you thought were set up on disch: Yes What services were received?: services but no chances to go out What were the barriers for not receiving services?: Return to [facility] prior to HH going out Did you call your physician beore you came to the ED?: No Did your physician tell you to come in?: No How do you think you became sick enough to come back?: I felt good at discharge but then I think I got scared and came back If the patient had a VNA ordered Did the patient have a VNA order?: Yes Did you call the VNA before you came?: No Did the VNA tell you to come to the hospital?: No Do you know if the VNA called your physician?: No ED visits How many ED visits in the past 12 months: 11 Assessment for Readmission Summary of readmission circumstances, based upon interviews: Francie SOB and returned to the ED Anticipated HH Services Anticipated HH Services at Discharge [facility] Needed, [employer], OT, PT and RN.
[2025-05-21] MEDS: Mometasone 220 MCG 14 DOSE INHALER 1 PUFF IH (08:06)
[2025-05-21] MEDS: Enoxaparin 40 MG/0.4 ML SYR SC (08:23)
[2025-05-21] MEDS: Furosemide 40 MG/4 ML VIAL IVP ×2 (08:24→15:59)
[2025-05-21] MEDS: Doxycycline Hyclate 100 MG CAP PO ×2 (08:25→19:23)
[2025-05-21] MEDS: predniSONE 10 MG TAB 30 MG PO (08:25)
[2025-05-21] MEDS: Hydroxychloroquine 200 MG TAB PO (08:25)
[2025-05-21] MEDS: Gabapentin 400 MG CAP PO ×2 (08:25→19:23)
[2025-05-21] MEDS: Aspirin E.C. 81 MG TABEC PO (08:25)
[2025-05-21] MEDS: Collagenase 30 GM TUBE TP (08:50)
[2025-05-21] MEDS: Amoxicillin 875 MG TAB PO (09:50)
--- NOTE | 2025-05-21 11:22 | PHA.REVIEW2 ---
Pharmacy Admission Review Admission Clinical Review Admission Pharmacy Review: Acute hypoxemic respiratory failure (Acute) Chronic ulcer of right leg (Acute) Cryoglobulinemic glomerulonephritis (Acute) Microcytic anemia (Acute) On deep vein thrombosis (DVT) prophylaxis (Acute) Acute exacerbation of CHF (congestive heart failure) (Acute) morphine Adverse Reaction (Verified 05/20/25 13:24) Dizziness/Lighthead Resuscitation Status Full Code Height 5 ft 5 in Weight 100.1 kg Pharmacy Admission Review Renal Dosing Renal Dosing: Scr=1.0; Crcl=67; no adjustments needed BUN 54 mg/dL (7-18) H 05/21/25 05:39 Creatinine 1.0 mg/dL (0.55-1.02) 05/21/25 05:39 Medications needing adjustments: Reviewed Anticoagulation Anticoagulation: Hgb 9.5 g/dL (11.2-15.7) L 05/21/25 05:39 Hct 31.0 % (36.0-46.0) L 05/21/25 05:39 Plt Count 277 10^3/uL (130-400) 05/21/25 05:39 INR 1.1 (0.9-1.1) 05/20/25 07:58 Creatinine 1.0 mg/dL (0.55-1.02) 05/21/25 05:39 DVT Prophylaxis: Reviewed Medications: Enoxaparin Opiate Usage Evaluate Pain Scale/Pains Meds: Reviewed Scheduled Bowel Reg ordered if on Opiates?: Yes Relevant Labs Relevant Labs: Sodium 142 mmol/L (136-145) 05/21/25 05:39 Potassium 4.2 mmol/L (3.5-5.1) 05/21/25 05:39 Chloride 106 mmol/L (98-107) 05/21/25 05:39 Magnesium 2.3 mg/dL (1.8-2.4) 05/20/25 07:58 Electrolytes, C-Reactive P, ESR: Reviewed DM Control DM Control: no history of DM. On prednisone-am glucose 119. Monitor glucose levels. DM Control: Reviewed Cardiac Review Cardiac Review: MD=793/92; hr=95; on nitroglycerin drip at 125mcg/min. Troponin I 249 ng/L (<or=51) H* 05/20/25 12:00 NT-Pro-B Natriuret Pep > 12098 pg/mL (<300) H 05/20/25 07:58 QTc Review QTc: Reviewed List meds needing interventions: yhr=024; recheck if add any qt prolonging meds. IV to PO Switch IV Medications: Reviewed (on IV furosemide for pulmonary edema) Home Meds Home Med List reviewed: Reviewed Relevent Home Meds Not ordered & why?: all home meds ordered at this time. Pharmacy Antibiotic Review Pharmacy Antibiotic Activity: Reviewed, no change (on doxy/amoxicillin for cellulitis)
[2025-05-21] MEDS: Magnesium Oxide 400 MG TAB PO (11:38)
[2025-05-21] MEDS: nitroGLYcerin in D5W 50 MG/250 ML BTL 36 MG IV (11:38)
--- NOTE | 2025-05-21 15:55 | W.PM.PROGNOT ---
Date of Service Date of service: 05/21/25 Time of Service: 15:55 Assessment and Plan Assessment and plan (1) Acute exacerbation of CHF (congestive heart failure): Status: Acute Assessment and plan: -patient presented with elevated BP, hypoxia, and signs of pulmonary edema on CXR -s/p 40mg IV lasix in ED, will continue BID and follow urine output - holding home labetolol and amlodipine -last TTE on 04/19 showed EF 65%, normal wall motion, and dilated left atria (2) Acute hypoxemic respiratory failure: Status: Acute Assessment and plan: - secondary to CHF exacerbation as noted above - Had been briefly on BiPAP, and up to 4 L nasal cannula - Has been transition to room air as of the time of my exam - Goal oxygen saturation 88 to 92% (3) Cellulitis of leg, right: Status: Resolved Assessment and plan: -diagnosed during previous hospitalization -will continue PO doxy and amoxicillin (4) Chronic ulcer of right leg: Status: Acute Assessment and plan: -as noted above - Will continue wound care with Santyl and dressings (5) Cryoglobulinemic glomerulonephritis: Status: Acute Assessment and plan: -Not Lupus Nephritis. Recent diagnosed s/p biopsy, treated with prednisone. -Renal function improving since previous admission -continue prednisone pending plan from Dr. Rolle from [facility] nephrology at decreased dose of 30mg daily -Continue PJP prophylaxis with 3xWeek TMP/SMX as well unitl off steroids, monitor potassium. (6) Microcytic anemia: Status: Acute Assessment and plan: -chornic, follow. (7) Lupus (systemic lupus erythematosus): Assessment and plan: -This has been stable on hydroxycholoroquine. -Case reviewed with [facility] rheumatology fellow. No change in management. (8) On deep vein thrombosis (DVT) prophylaxis: Status: Acute Assessment and plan: -u/s negative for VTE, on exoxaparin for prophylaxis -Known hypercoagulable state, but had hemorrhagic pericardial effusion while on full anticoagulation with warfarin. (9) Encephalopathy: Status: Acute Assessment and plan: -secondary to ambien given overnight 05/20 -patient was hallucinating and unable to follow commands -will add to allergy list Subjective Subjective Interval history since last seen: Patient states that she was hallucinating all night and into this morning due to the ambien that she was ordered last night. However, she is back to her baseline mental status and is happy that her LE edema is improving. Exam Narrative Exam Narrative: well appearing older female laying in bed in no acute distress, ANO x 4, heart regular rhythm, lungs with minimal bilateral basilar crackles, abdomen soft, nontender, nondistended, significant bilateral lower extremity edema though no longer weeping Objective Last Vital Signs Temp 97.2 F L 05/20/25 17:48 Pulse 93 H 05/21/25 15:01 Resp 18 05/21/25 15:01 BP 162/93 H 05/21/25 15:01 Pulse Ox 98 05/21/25 15:01 Laboratory Results - last 24 hr 05/21/25 05:39 WBC 17.40 H RBC 3.57 L Hgb 9.5 L Hct 31.0 L MCV 87 MCH 26.6 L MCHC 30.6 L RDW 16.6 H Plt Count 277 MPV 10.1 Sodium 142 Potassium 4.2 Chloride 106 Carbon Dioxide 20.4 L Anion Gap 15.6 H BUN 54 H Creatinine 1.0 Est GFR (CKD-EPI 2020) 63.30 Glucose 119 H Calcium 8.3 L Time Spent with Patient Time Spent with Patient: >50 minutes Time was spent: preparing to see the patient(eg.review tests), obtaining and/or reviewing separately otained hiistory, ordering medications,tests, procedures, referring, communicating with other health career services coordinator, indepentently interpreting results, counseling the patient and care coordination
[2025-05-21] MEDS: Melatonin 3 MG TAB 9 MG PO (19:23)
[2025-05-21] MEDS: Pramipexole 0.25 MG TAB 0.125 MG PO (19:23)
[2025-05-21] MEDS: Simvastatin 40 MG TAB PO (19:24)
[2025-05-21] MEDS: oxyCODONE 5 MG TAB PO (19:24)
[2025-05-21] MEDS: nitroGLYcerin in D5W 50 MG/250 ML BTL 12 MG IV (21:47)
[2025-05-22] VITALS (28 sets, daily range): BP systolic 131–166; BP diastolic 71–105; PULSE 67–101; RESP 10–22; TEMP 36.3–36.8; O2SAT 95–99
[2025-05-22 06:12] LABS: Lab Add On Test DONE
[2025-05-22 06:17] LABS: HCT 25.8 % (36.0-46.0); HGB 8.1 g/dL (11.2-15.7); MCH 26.9 pg (27.0-33.0); MCHC 31.4 % (32.0-36.0); MCV 86 fL (80-95); MPV 10.2 fL (8.0-11.0); Platelet Count 230 10^3/uL (130-400); RBC 3.01 10^6/uL (3.93-5.22); RDW 16.5 % (11.7-14.6); RDW-SD 51.7 fL; WBC 14.68 10^3/uL (4.4-10.8)
[2025-05-22] MEDS: Levothyroxine 150 MCG TAB PO (06:32)
[2025-05-22 06:33] LABS: Anion Gap 11.3 mmol/L (3-11); BUN 49 mg/dL (7-18); CO2 26.7 mmol/L (21.0-32.0); Calcium 7.9 mg/dL (8.5-10.1); Chloride 106 mmol/L (98-107); Estimated GFR 63.30 (mL/min/1.73m2); Glucose 123 mg/dL (74-106); Magnesium 2.4 mg/dL (1.8-2.4); Potassium 3.9 mmol/L (3.5-5.1); Sodium 144 mmol/L (136-145)
[2025-05-22 06:43] LABS: Troponin I 83 ng/L (<or=51)
[2025-05-22] MEDS: Mometasone 220 MCG 14 DOSE INHALER 1 PUFF IH (07:55)
[2025-05-22] MEDS: oxyCODONE 5 MG TAB PO ×3 (08:43→19:56)
[2025-05-22] MEDS: Hydroxychloroquine 200 MG TAB PO (08:45)
[2025-05-22] MEDS: Amoxicillin 875 MG TAB PO ×2 (08:45→19:56)
[2025-05-22] MEDS: Aspirin E.C. 81 MG TABEC PO (08:45)
[2025-05-22] MEDS: Doxycycline Hyclate 100 MG CAP PO ×2 (08:45→19:55)
[2025-05-22] MEDS: predniSONE 10 MG TAB 30 MG PO (08:46)
[2025-05-22] MEDS: Gabapentin 400 MG CAP PO ×2 (08:46→19:56)
[2025-05-22] MEDS: Enoxaparin 40 MG/0.4 ML SYR SC (08:46)
[2025-05-22] MEDS: Collagenase 30 GM TUBE TP (08:48)
[2025-05-22] MEDS: Normal Saline Flush 10 ML SYR IVP ×4 (08:48→19:57)
[2025-05-22] MEDS: Furosemide 40 MG/4 ML VIAL IVP ×2 (08:48→15:09)
--- NOTE | 2025-05-22 09:58 | PDOC.CMPRO ---
Date of service: 05/22/25 Time of Service: 13:09 Care Management Progress Note Progress Note Text Progress Note Text: Francie has been downgraded from the ICU to the medical-surgical unit. She was awake and sitting up in bed when CM met with her. [facility] referral was submitted with the patient?s consent. PT and Palliative Care consults have been requested. CM discussed HCA and Advance Directives with Francie. She declined completing these documents at this time, stating that she has been working with her sister on them. Francie states that she would like her sister, Charlene Galvez, and her brother, Reginaldo Simms, to serve as her Health Care Agents. Per PT evaluation, Short term SNF for wounds and Function vs Home with HHPT pending progress toward goals. Francie is agreeable to SNF placement; referrals have been sent to [facility] and [facility]. During the conversation, Francie demonstrated a slight delay in response time compared to the previous day?s interaction with CM. Francie also inquired about support for home repairs. CM contacted [employer]; however, as Francie's home is currently listed for sale, [employer] is unable to provide funding assistance for home improvements. CM will continue to follow. Discharge Potential Discharge Needs: PCP F/U Appt Anticipated Barriers to Discharge: None Identified Patient/Family Education Needs: Review discharge instructions, discuss Ask Me [employer] Transportation: Private vehicle Plan: Francie will be discharged to SNF for STR prior to returning home, once medically ready for discharge. She will follow up with her community providers, palliative care, and plan of care. [place] transportation will be dependant on her mobility at time of discharged. Social Determinants of Health Screening Social Determinants of health last assessed in clinic: 05/22/25 Will the Patient Participate in the Screening?: Yes Do you worry about having a steady place to live?: no Problems where you live: no known problems In the past 12 months, have you had to go without electric, gas, oil or water in your home?: no 1. Within the past 12 months, we worried whether our food would run out before we got money to buy more.: Don't know/refused 2. Within the past 12 months, the food we bought just didn't last and we didn't have money to get more.: Don't know/refused Has lack of transportation kept you from medical appointments or from doing things needed for daily living?: no Has anyone in your life made you feel unsafe or unsupported?: choose not to answer How hard is it for you to pay for the very basics like food, housing, medical care, and heating? Would you say it is:: Not hard at all Do you want help finding or keeping work or a job?: I do not need or want help If for any reason you need help with day-to-day activities such as bathing, preparing meals, shopping, managing finances, etc., do you get the help you need?: I could use a little more help How often do you feel lonely or isolated from those around you?: Sometimes Do you speak a language other than [place] at home?: No Comments: patient feels she would benefit from having some home health assistance with dressing changes. Health Related Social Needs Health related social needs: problems with daily activities (Z73.9) and feeling lonely/isolated (Z60.8) Health related social needs details: patient would like to discuss options with case management.
[2025-05-22] MEDS: HYDROmorphone 2 MG/ML SYR 1 MG IVP (11:31)
[2025-05-22] MEDS: Magnesium Oxide 400 MG TAB PO (11:31)
--- NOTE | 2025-05-22 12:19 | W.PM.PROGNOT ---
Date of Service Date of service: 05/22/25 Time of Service: 11:00 Assessment and Plan Assessment and plan (1) Acute exacerbation of CHF (congestive heart failure): Status: Acute Assessment and plan: -patient presented with elevated BP, hypoxia, and signs of pulmonary edema on CXR -s/p 40mg IV lasix in ED, will continue BID and follow urine output - holding home labetolol and amlodipine -last TTE on 04/19 showed EF 65%, normal wall motion, and dilated left atria (2) Acute hypoxemic respiratory failure: Status: Acute Assessment and plan: - secondary to CHF exacerbation as noted above - Had been briefly on BiPAP, and up to 4 L nasal cannula - Has been transition to room air as of the time of my exam - Goal oxygen saturation 88 to 92% (3) Cellulitis of leg, right: Status: Resolved Assessment and plan: -diagnosed during previous hospitalization -will continue PO doxy and amoxicillin (4) Chronic ulcer of right leg: Status: Acute Assessment and plan: -as noted above - Will continue wound care with Santyl and dressings (5) Cryoglobulinemic glomerulonephritis: Status: Acute Assessment and plan: -Not Lupus Nephritis. Recent diagnosed s/p biopsy, treated with prednisone. -Renal function improving since previous admission -continue prednisone pending plan from Dr. Rolle from [facility] nephrology at decreased dose of 30mg daily -Continue PJP prophylaxis with 3xWeek TMP/SMX as well unitl off steroids, monitor potassium. (6) Microcytic anemia: Status: Acute Assessment and plan: -chornic, follow. (7) Lupus (systemic lupus erythematosus): Assessment and plan: -This has been stable on hydroxycholoroquine. -Case reviewed with [facility] rheumatology fellow. No change in management. (8) On deep vein thrombosis (DVT) prophylaxis: Status: Acute Assessment and plan: -u/s negative for VTE, on exoxaparin for prophylaxis -Known hypercoagulable state, but had hemorrhagic pericardial effusion while on full anticoagulation with warfarin. (9) Encephalopathy: Status: Acute Assessment and plan: -secondary to ambien given overnight 05/20 -patient was hallucinating and unable to follow commands -will add to allergy list Subjective Subjective Interval history since last seen: Ms. Yusuf is comfortable in bed. No chest pain and she is off the nitroglycerin drip. She says she still feels very ill. Hallucinations have stopped. Exam Narrative Exam Narrative: General: This is an obese, chronically ill-appearing woman in no acute distress HEENT: Normocephalic, atraumatic CV: RRR. BLE profuse weeping edema Resp: Mild bibasilar rales Abd: soft, NTND MSK: voluntary motion x4 Neuro: awake, alert, no focal deficits Objective Last Vital Signs Temp 36.3 C L 05/22/25 03:05 Pulse 72 05/22/25 12:01 Resp 17 05/22/25 12:01 BP 149/85 H 05/22/25 12:01 Pulse Ox 95 05/22/25 12:01 Laboratory Results - last 24 hr 05/22/25 05:42 WBC 14.68 H RBC 3.01 L Hgb 8.1 L Hct 25.8 L MCV 86 MCH 26.9 L MCHC 31.4 L RDW 16.5 H Plt Count 230 MPV 10.2 Sodium 144 Potassium 3.9 Chloride 106 Carbon Dioxide 26.7 Anion Gap 11.3 H BUN 49 H Creatinine 1.0 Est GFR (CKD-EPI 2020) 63.30 Glucose 123 H Calcium 7.9 L Magnesium 2.4 Troponin I 83 H* Add-On Test Request DONE Time Spent with Patient Time Spent with Patient: 25-34 minutes Time was spent: preparing to see the patient(eg.review tests), obtaining and/or reviewing separately otained hiistory, ordering medications,tests, procedures, referring, communicating with other health hearing care practitioner, indepentently interpreting results, counseling the patient and care coordination
--- NOTE | 2025-05-22 12:27 | W.PC.ACHO ---
Registration Status: ADM IN Primary Language: Preferred Language: Arabic ED Information & Data Chief Complaint SOB 05/20/25 07:14 Triage Note Pt discharged last night- 05/20/25 07:06 reports increasing SOB that started over night, increased edema of bilateral lower extremities 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) History of bone marrow biopsy S/P thyroidectomy H/O: hysterectomy Tonsillectomy Most Recent Vital Signs Temperature 36.6 C 05/22/25 12:25 Temperature Source Temporal Artery Scan 05/22/25 12:25 Pulse 79 05/22/25 12:25 Pulse 81 05/22/25 12:01 Respiratory Rate 16 05/22/25 12:25 Respiratory Effort Short of Breath, Labored, Tripod, Incrsd Work of Breathing 05/20/25 08:51 Respiratory Depth Shallow 05/20/25 08:51 Respiratory Pattern Irregular 05/20/25 08:51 Blood Pressure 166/91 H 05/22/25 12:25 Blood Pressure Mean 116 05/22/25 12:25 Blood Pressure Position Sitting 05/20/25 07:12 Pulse Oximetry 97 05/22/25 12:25 Oxygen Delivery Method Room Air 05/22/25 12:25 Oxygen Flow Rate 0 05/22/25 12:25 Fraction of Inspired Oxygen (FIO2) 21 05/20/25 09:14 Pain Level 3 05/22/25 11:31 Allergies zolpidem (From Ambien) Adverse Reaction (Severe, Verified 05/21/25 15:59) Other (See Comment) Hallucinations morphine Adverse Reaction (Verified 05/20/25 13:24) Dizziness/Lighthead Precautions Isolation Standard precaution 05/20/25 07:11 Active Medications Generic Name Dose Route Start Last Admin Trade Name Freq PRN Reason Stop Dose Admin Amoxicillin 875 mg 05/21/25 10:00 05/22/25 08:45 Amoxicillin 875 Mg Tab PO 875 mg BID WILLIE Administration Aspirin 81 mg 05/21/25 08:30 10/09/25 08:45 Aspirin E.C. 81 Mg Tabec PO 81 mg DAILY WILLIE Administration Collagenase 30 gm 05/21/25 08:30 05/22/25 08:48 Collagenase 30 Gm Tube TP 1 applic DAILY WILLIE Administration Doxycycline Hyclate 100 mg 05/20/25 20:00 05/22/25 08:45 Doxycycline Hyclate 100 Mg Cap PO 100 mg BID WILLIE Administration Enoxaparin Sodium 40 mg 05/21/25 08:30 05/22/25 08:46 Enoxaparin 40 Mg/0.4 Ml Syr SC 40 mg DAILY WILLIE Administration Furosemide 40 mg 05/20/25 16:00 05/22/25 08:48 Furosemide 40 Mg/4 Ml Vial IVP 40 mg BID@0800,1600 WILLIE Administration Gabapentin 400 mg 05/20/25 20:00 05/22/25 08:46 Gabapentin 400 Mg Cap PO 400 mg BID WILLIE Administration Hydromorphone HCl 1 mg 05/20/25 13:22 05/22/25 11:31 Hydromorphone 2 Mg/Ml Syr IVP 1 mg Q4H PRN PRN Administration Hydroxychloroquine Sulfate 200 mg 05/21/25 08:30 05/22/25 08:45 Hydroxychloroquine 200 Mg Tab PO 200 mg DAILY WILLIE Administration Levothyroxine Sodium 150 mcg 05/21/25 06:00 05/22/25 06:32 Levothyroxine 150 Mcg Tab PO 150 mcg DAILY@0600 WILLIE Administration Magnesium Oxide 400 mg 05/20/25 12:00 05/22/25 11:31 Magnesium Oxide 400 Mg Tab PO 400 mg DAILY@1200 WILLIE Administration Melatonin 9 mg 05/21/25 20:00 05/21/25 19:23 Melatonin 3 Mg Tab PO 9 mg HS WILLIE Administration Mometasone Furoate 1 puff 05/21/25 08:30 05/22/25 07:55 Mometasone 220 Mcg 14 Dose Inhaler IH 1 puff DAILY WILLIE Administration Oxycodone HCl 5 mg 05/20/25 11:50 05/22/25 08:43 Oxycodone 5 Mg Tab PO 5 mg Q4H PRN PRN Administration Pramipexole Dihydrochloride 0.125 mg 05/20/25 20:00 05/21/25 19:23 Pramipexole 0.25 Mg Tab PO 0.125 mg QPM WILLIE Administration Prednisone 30 mg 05/21/25 08:30 05/22/25 08:46 Prednisone 10 Mg Tab PO 30 mg DAILY WILLIE Administration Simvastatin 40 mg 05/20/25 20:00 05/21/25 19:24 Simvastatin 40 Mg Tab PO 40 mg HS WILLIE Administration Sodium Chloride 0 ml 05/20/25 07:13 05/22/25 11:32 Normal Saline Flush 10 Ml Syr IVP 10 ml PRN PRN Administration Sodium Chloride 0 ml 05/20/25 08:30 05/22/25 08:48 Normal Saline Flush 10 Ml Syr IVP 20 ml BID WILLIE Administration IV IV Catheter Type [Midline R Mid-line Peripheral Line Upper] IV Catheter Type [Right Upper Peripheral IV arm] IV Catheter Type [Right Peripheral IV Antecubital] IV Catheter Gauge [Right Upper 20 arm] IV Catheter Gauge [Right 20 Antecubital] Diagnostics 05/22/25 Range/Units 05:42 WBC 14.68 H (4.4-10.8) 10^3/uL RBC 3.01 L (3.93-5.22) 10^6/uL Hgb 8.1 L (11.2-15.7) g/dL Hct 25.8 L (36.0-46.0) % MCV 86 (80-95) fL MCH 26.9 L (27.0-33.0) pg MCHC 31.4 L (32.0-36.0) % RDW 16.5 H (11.7-14.6) % Plt Count 230 (130-400) 10^3/uL MPV 10.2 (8.0-11.0) fL Sodium 144 (136-145) mmol/L Potassium 3.9 (3.5-5.1) mmol/L Chloride 106 (98-107) mmol/L Carbon Dioxide 26.7 (21.0-32.0) mmol/L Anion Gap 11.3 H (3-11) mmol/L BUN 49 H (7-18) mg/dL Creatinine 1.0 (0.55-1.02) mg/dL Est GFR (CKD-EPI 2020) 63.30 (mL/min/1.73m2) Glucose 123 H (74-106) mg/dL Calcium 7.9 L (8.5-10.1) mg/dL Magnesium 2.4 (1.8-2.4) mg/dL Troponin I 83 H* (<or=51) ng/L Add-On Test Request DONE Intake and Output - 24 Hour Total 05/20/25 06:58 thru 05/22/25 09:29 Intake Total 2540.175 Output Total 3800 Balance -1259.825 Weight 100.1 kg Intake: IV 1415.175 Oral 1125 Output: Urine 3800 Other: Urine Color Dark Shakira Urine Appearance Clear Urinary Catheter Urinary Catheter Date of 05/20/25 Insertion [External Female Catheter] Urinary Catheter Date of 05/20/25 Insertion [External Female Catheter] Urinary Catheter Date of 05/20/25 Insertion [External Female Catheter] Time of insertion [External 12:50 Female Catheter] Time of insertion [External 12:50 Female Catheter] Time of insertion [External 08:46 Female Catheter] Falls Risk Assessment History of Falls Previous History 05/20/25 08:25 Contributing Factors Unstable,Impairments, 05/20/25 08:25 Incontinence,Medications Ambulatory Aids Uses ambulatory device + 05/20/25 08:25 Tubes/Lines With any additional score 05/20/25 08:25 Gait Evaluation W/any additional score 05/20/25 08:25 Cognition Cognitive impairment 05/20/25 08:25 Fall Total Score 112 05/20/25 08:25 Level of Risk Maximum Risk 05/20/25 08:25 Problems (Last Reviewed 05/15/25 @ 13:27 by Daniel Hinkle) Encephalopathy (Acute) Acute hypoxemic respiratory failure (Acute) Chronic ulcer of right leg (Acute) Cryoglobulinemic glomerulonephritis (Acute) Microcytic anemia (Acute) On deep vein thrombosis (DVT) prophylaxis (Acute) Acute exacerbation of CHF (congestive heart failure) (Acute) v v v v v v v v v Sending and/or Receiving Nurses: Please use comment section below to note any information pertinent to the patient hand-off not included above. Information / Comments: report received, all questions answered. Report received from: Report received from Atiya Fisher @ [phone]
--- NOTE | 2025-05-22 13:17 | IN_ITS ---
PT Notes Visit Reasons: CHF Exacerbation, Acute Hypoxic Resp Failure Inpatient Physical Therapy Evaluation Date: 05/22/2025 Referring Doctor: Dr. Farah PT Orders: PT CONSULT: PT evaluation and treatment Precautions: Right lower extremity wounds, MRSA nares contact precautions Patient Profile/Admitting Diagnosis: Patient is 65-year-old female with lupus who presented to the ED via EMS with increased shortness of breath, bilateral lower extremity edema 1 day status post discharge from hospital. In ED patient diagnosed with heart failure with EF 65% and weeping right lower extremity. Patient required supplemental oxygen initially including BiPAP and was transferred to ICU for further medical management and monitoring. Patient receiving antibiotics, diuretics and pain medication. Patient able to wean off of O2 now on room air sating at 95%. PMHX: Demand ischemia (Acute) Flash pulmonary edema (Acute) Acute hypoxemic respiratory failure (Acute) Chronic ulcer of right leg (Acute) Cryoglobulinemic glomerulonephritis (Acute) Pain in right leg (Acute) Microcytic anemia (Acute) Hyperglycemia, drug-induced (Acute) Hyperkalemia (Acute) Hypokalemia (Acute) Lupus nephritis (Acute) On deep vein thrombosis (DVT) prophylaxis (Acute) Acute exacerbation of CHF (congestive heart failure) (Acute) Acute kidney injury superimposed on CKD (Acute) Hematuria (Acute) GAVIN (acute kidney injury) (Acute) Mild peripheral edema (Acute) CHF (congestive heart failure) (Chronic) Cutaneous amyloidosis (Acute) Leg wound, right (Acute) Chronic wound (Acute) Left knee DJD (Chronic) Depo-medrol injection: 02/27/25; 11/28/2024; 08/29/24; 05/30/2024; 02/26/2024; 11/27/2023; 08/17/23eadache (Acute) Urinary tract infection (Acute) Colovaginal fistula (Acute) Diverticulitis of sigmoid colon (Acute) Amyloidosis (Chronic) Herniated nucleus pulposus, lumbar (Chronic) Antiphospholipid syndrome (Chronic) Trigger thumb of right hand (Acute) Trigger thumb of left hand (Chronic) Nasal vestibulitis (Acute 11/02/17) Nasal congestion (Acute 06/19/14) Deviated nasal septum (Acute 06/19/14) Cephalgia (Acute 11/20/14) Constipation (Chronic) as aboveHTN (hypertension) (Chronic) GERD (gastroesophageal reflux disease) (Chronic) stableLupus (Chronic) Medical History Lupus (systemic lupus erythematosus) Hypertension Primary localized cutaneous amyloidosis Cellulitis of right lower limb Lymphocytopenia Normal colonoscopy [place] 11/13/[address] Natalya Styles at [facility], severe diverticular dz, repeat 10 years. mgHypocalcemia Asthma Allergic rhinitis Abnormal mammogram of right breast Degenerative joint disease Hyperlipidemia Pericarditis Eczema Chest wall pain Insomnia Sciatica, left side Surgical History 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) History of bone marrow biopsy S/P thyroidectomy H/O: hysterectomy Tonsillectomy Social History/Home Situation: Lives alone in [facility], normally drives and does all of her own grocery shopping, has 2 cats, has 2 stairs to manage to get into her house Equipment Owned/DME: Has RW and cane at home but does not normally use them Subjective: Patient reports she is having more pain in her leg (RN aware and provided pain medication). Patient requesting to sit at edge of bed Objective: [] General Observation: Female semireclined in bed with weeping right lower extremity Open areas noted to right lower extremity anterior and lateral lower leg no dressing in place Mental Status: Alert and oriented x 4 however noted intermittent moments of confusion and impulsiveness placing her at risk for falls. Patient able to follow commands/instructions with slight delay in response. Patient agreeable to participate in eval Pain: 3/10 right lower extremity Vital Signs: Monitored via telemetry throughout ROM: Right Upper Extremity: [] WFL Left Upper Extremity: WFL Right Lower Extremity: WFL except dorsiflexion to neutral Left Lower Extremity: WFL Strength: BUE: Grossly 5/5 Right Lower Extremity: Hip abduction 2 -/5, flexion 2+/5, knee extension 3/5, ankle 3/5 Left Lower Extremity: Hip 3 -/5, knee 3/5, ankle 3/5 Sensation: Intact hypersensitivity to touch right lower leg mid denson to ankle Bed Mobility/Transfers: [] Supine to sit mod assist Sit to supine max assist for lower extremities Sit to stand min assist Stand to sit contact-guard assist Gait: Ambulated 15 feet with FWW contact-guard assist with wheelchair follow for safety. Patient reporting tightness in right calf. Patient demonstrates following deviations excessive lateral weight shift bilaterally, circumduction to advance lower extremities, decreased knee flexion bilaterally, reduced step length Balance: [] Static Sitting: Normal Dynamic Sitting: Good Static Standing: Good with upper extremity support Dynamic Standing: Fair with upper extremity support Special Tests: Mobility Limitations Standardized Measure [facility] AM-PAC 6 clicks Basic Mobility Inpatient Short Form: Raw Score: 16 CMS Score: 54.16% deficit Informed Consent/Education: Patient instructed in purpose of PT consult and plan of care. Treatment: 87353: Sit to stand x 5 reps from bed with min assist when patient pushing up from bed; contact-guard assist and rocking motion when bilateral upper extremity on FWW ( this is pt technique at home) Stand to sit contact-guard x 7 trials reaching back with proper hand placement Step turn transfer with FWW contact-guard assist x 3 trials Lateral scooting along edge of bed contact-guard assist bilateral directions Supine to sit on right side of bed max assist of 1 with increased pain right lower extremity Assessment: Patient is a 65year old [] female referred to physical therapy services with the diagnosis of CHF exacerbation and right lower extremity wound. Patient presents with clinical signs and symptoms consistent with admitting diagnosis, as demonstrated by the following impairment level findings: 1. Impaired strength BLE major muscle groups 2. Impaired balance reactions 3. Impaired functional activity tolerance 4. Pain right lower extremity 5. Impaired skin integrity right lower extremity 6. Reduced dorsiflexion right lower extremity Impairments are contributing to the following functional limitations: 1. AMPAC score. Of 16 indicating risk for readmission if discharged to community 2. Decline in bed mobility skills 3. Decline in transfer skills 4. Decline in ability to ambulate with out assistive device/assistance 5. Fall risk 6. Increased time to complete ADLs/mobility tasks Patient is assessed as a Moderate 15937 complexity based on the following: History: 65-year-old female presenting with complex past medical history and comorbidities Examination: As stated above Presentation: Evolving Decision Making: Moderate Goals: Goals X1 week 1. Supine-Sit supervision 2. Sit-Supine supervision 3. Sit-Stand supervision 4. Stand-Sit supervision 5. Bed-Chair supervision with wheeled walker 6. Chair-Bed supervision with wheeled walker 7. Ambulate with WW 200 feet supervision 8. Perform 3 steps with rail to safely enter and exit home supervision 9. Independent with home exercise program to improve range of motion and strength Plan of Care/Treatment Plan: 1-2x/day, 7 days/week x 1 week. Plan of care has been reviewed with the AWARD CLERK providing the service under Physical Therapy direction. Initiate Physical Therapy intervention for strengthening, bed mobility, transfers, gait, stairs, balance training, use of assistive device. DISCHARGE RECOMMENDATIONS: [] [X] SNF for continued rehabilitation VS Home with HHPT pending progress toward goals TREATMENT CODE/TIME: 82875, 61169/1110?1222 Tess Noel, PT [facility]
--- NOTE | 2025-05-22 14:41 | PT.INTREAT ---
PT Notes Visit Reasons: CHF Exacerbation, Acute Hypoxic Resp Failure Inpatient Physical Therapy Treatment Note [facility] Date: 05/22/2025 PRECAUTIONS: Multiple wounds RLE, Contact precautions MRSA Nares, SUBJECTIVE: Pt reports she finally has no pain in her leg. She is agreeable to performing bed level tasks including exercises OBJECTIVE: Pt presents supine in bed watching TV; she has an ice pack leaning against her inner lower leg. ? PAIN: denies pain at rest ; increased to 1-2 with bed level exercises. VITALS: ?monitored by Nursing? Therapeutic Exercises ([id number][]): Direct one-on-one instruction in therapeutic exercises to develop strength, endurance, range of motion and flexibility. ---Provided skilled instruction in proper exercise performance ? Exercises ? supine BLE x 10 reps Glut sets, Quad sets, Ankle pumps --- with 3 sec hold Heel slides, SAQ, Hip ABD/ADD AAROM ( pt may benefit from use of slide board to reduce resistance of heel on bed) Pt required rest period between each exercise ASSESSMENT:? Pt tolerated session well with bed level exercises. Pt limited by wounds RLE. Pt able to assist with repositioning with use of LLE to boost up in bed. She declined OOB this pm as she reported to finally having no pain in her leg. She is agreeable to be OOB tomorrow. KALA Reed and YAMILKA Ovalle were educated and present for portion of evaluation earlier in day. Pt is 1 assist with FWW for transfers and short distance ambulation PLAN: 1-2x/day, 7 days/week x 1 week. Plan of care has been reviewed with the CDL DEDICATED TRUCK DRIVER providing the service under Physical Therapy direction. Initiate Physical Therapy intervention for strengthening, bed mobility, transfers, gait, stairs, balance training, use of assistive device. TREATMENT CODE/TIME: 38052/ 5514-4998 DISCHARGE RECOMMENDATION: Short term SNF vs HHPT depending on progress toward goals Tess Noel, PT [facility]
[2025-05-22] MEDS: Nystatin 500000 UNITS/5 ML SUSP 5ML CUP PO ×2 (16:41→19:57)
[2025-05-22] MEDS: Simvastatin 40 MG TAB PO (19:55)
[2025-05-22] MEDS: Melatonin 3 MG TAB 9 MG PO (19:55)
[2025-05-22] MEDS: Pramipexole 0.25 MG TAB 0.125 MG PO (19:56)
[2025-05-23] VITALS (7 sets, daily range): BP systolic 147–170; BP diastolic 73–89; PULSE 71–88; RESP 14–17; TEMP 36.1–36.7; O2SAT 94–100
[2025-05-23] MEDS: oxyCODONE 5 MG TAB PO ×6 (00:18→18:37)
[2025-05-23] MEDS: Levothyroxine 150 MCG TAB PO (05:37)
[2025-05-23] MEDS: Furosemide 40 MG/4 ML VIAL IVP (08:15)
[2025-05-23] MEDS: Enoxaparin 40 MG/0.4 ML SYR SC (08:15)
[2025-05-23] MEDS: Nystatin 500000 UNITS/5 ML SUSP 5ML CUP PO ×3 (08:15→19:37)
[2025-05-23] MEDS: Hydroxychloroquine 200 MG TAB PO (08:16)
[2025-05-23] MEDS: Amoxicillin 875 MG TAB PO ×2 (08:16→19:38)
[2025-05-23] MEDS: Doxycycline Hyclate 100 MG CAP PO ×2 (08:16→19:39)
[2025-05-23] MEDS: Aspirin E.C. 81 MG TABEC PO (08:16)
[2025-05-23] MEDS: Gabapentin 400 MG CAP PO ×2 (08:16→19:38)
[2025-05-23] MEDS: predniSONE 10 MG TAB 30 MG PO (08:16)
[2025-05-23] MEDS: Normal Saline Flush 10 ML SYR IVP ×2 (08:17→19:39)
[2025-05-23] MEDS: Mometasone 220 MCG 14 DOSE INHALER 1 PUFF IH (08:44)
--- NOTE | 2025-05-23 10:18 | PTTR_ITS ---
PT Notes Visit Reasons: CHF Exacerbation, Acute Hypoxic Resp Failure Inpatient Physical Therapy Treatment Note [facility] Date: 05/23/2025 PRECAUTIONS: Multiple wounds RLE, Contact precautions MRSA Nares, SUBJECTIVE: Francie reports well managed pain. She is awaiting a wound consultation later this morning. OBJECTIVE: Pt presents supine in bed watching TV. Multiple weeping wounds RLE? PAIN: denies pain at rest VITALS: ?monitored by Nursing? Therapeutic Exercises (30872a3): Direct one-on-one instruction in therapeutic exercises to develop strength, endurance, range of motion and flexibility. ---Provided skilled instruction in proper exercise performance ? Exercises ? supine BLE x 10 reps Glut sets, Quad sets, Ankle pumps : discontinued quad sets and ankle pumps on right to reduce skin shear supine shoulder flexion 10x supine shoulder horizontal AB/ADD 10x supine bicep curls 10x ASSESSMENT:? Pt tolerated session well with bed level exercises. Pt limited by wounds RLE. Pt is 1 assist with FWW for transfers and short distance ambulation. PLAN: 1-2x/day, 7 days/week x 1 week. Plan of care has been reviewed with the ENGINEER SECOND ASSISTANT providing the service under Physical Therapy direction. Initiate Physical Therapy intervention for strengthening, bed mobility, transfers, gait, stairs, balance training, use of assistive device. TREATMENT CODE/TIME: 41661/ 1220-1101 DISCHARGE RECOMMENDATION: Short term SNF vs HHPT depending on progress toward goals Kassy Lamar, PT, DPT [facility]
[2025-05-23] MEDS: Magnesium Oxide 400 MG TAB PO (11:29)
--- NOTE | 2025-05-23 11:36 | NUR.NOTE ---
Nursing Note: Miralax not given, pt refused, pt preferred prune juice, prune juice was given
[2025-05-23 11:48] LABS: Abs Immature Grans 0.76 10^3/uL (0.0-0.06); HCT 32.3 % (36.0-46.0); HGB 10.1 g/dL (11.2-15.7); Immature Grans % 4.3 %; MCH 27.2 pg (27.0-33.0); MCHC 31.3 % (32.0-36.0); MCV 87 fL (80-95); MPV 10.0 fL (8.0-11.0); Platelet Count 286 10^3/uL (130-400); RBC 3.72 10^6/uL (3.93-5.22); RDW 16.7 % (11.7-14.6); RDW-SD 52.8 fL; WBC 17.62 10^3/uL (4.4-10.8)
[2025-05-23 11:59] LABS: RBC Morphology Normal
--- NOTE | 2025-05-23 12:04 | W.PALLCONSUL ---
Date of service: 05/23/25 Time of Service: 12:05 History of Present Illness Narrative: Francie is a 65 year old female who is currently admitted for CHF exacerbation, RLE cellulitus with Hx of lupus. She was in the ICU but downgraded to med/surg yesterday. She was alone in her room at the time of the visit. She reports that she is feeling okay, better but not back to baseline. She is still feeling SOB at times. Her RLE is bothering her the most. It is weeping and painful. She is taking oxycodone. She is having a hard time eating due to thrush. It is difficult for her to sit still, she is usually more active. She is not sleeping well at the hospital. She has had 11 ED visits in the last 12 months and has been admitted to the hospital 3x in the last month. Reviewed CODE Status. She was listed as a FULL CODE. After discussion, she would like to change her CODE status to DNR/DNI. Reviewed COLST. She does not want a feeding tube, she agrees to trial of IV fluids and would want to determine use/limitation of Abx at the time. She has named HCA to include: 1. Deya Simms, sister, lives in [place] ([phone]) 2. Reginaldo Simms, brother, lives in [place], [place] ([phone]) Others who may be consulted: Sachin Simms, brother, [place], [place] ([phone]) Francie lives alone, she is agreeable to going to SNF for STR. She prefers to stay in [facility]. Referrals are pending. Her goal would be to return home after STR. She denies having any friends or family locally. Her family is not local as above. Her brother, Reginaldo and his , Jasmine are visiting from [place] now, They have checked on the cats, fed them, etc. Assessment and Plan Assessment and plan (1) Acute exacerbation of CHF (congestive heart failure): Status: Acute Assessment and plan: -patient presented with elevated BP, hypoxia, and signs of pulmonary edema on CXR -last TTE on 04/19 showed EF 65%, normal wall motion, and dilated left atria She continues to have SOB at times. She is working with PT (2) Acute hypoxemic respiratory failure: Status: Acute Assessment and plan: - secondary to CHF exacerbation as noted above on RA now. (3) Cellulitis of leg, right: Status: Resolved Assessment and plan: Her RLE is painful, oxycodone helps. She is working with PT. (4) Chronic ulcer of right leg: Status: Acute Assessment and plan: -as noted above - Will continue wound care with Santyl and dressings (5) Cryoglobulinemic glomerulonephritis: Status: Acute Assessment and plan: -Not Lupus Nephritis. Recent diagnosed s/p biopsy, treated with prednisone. -Renal function improving since previous admission (6) Microcytic anemia: Status: Acute Assessment and plan: -chornic, follow. (7) Lupus (systemic lupus erythematosus): Assessment and plan: Stable on hydroxycholoroquine. (8) Encephalopathy: Status: Acute Assessment and plan: -secondary to ambien given overnight 05/20- Resolved (9) Palliative care encounter: Status: Acute Assessment and plan: Francie is a 65 year old female who is currently admitted for CHF exacerbation, RLE cellulitus with Hx of lupus. She was in the ICU but downgraded to med/surg yesterday. She was alone in her room at the time of the visit. She has had 11 ED visits in the last 12 months and has been admitted to the hospital 3x in the last month. Palliative was consulted to discuss GOC. She is agreeable to f/u with Palliative after discharge. She could benefit from the support. (10) Advanced care planning/counseling discussion: Status: Acute Assessment and plan: Reviewed CODE Status. She was listed as a FULL CODE. After discussion, she would like to change her CODE status to DNR/DNI. Reviewed COLST. She does not want a feeding tube, she agrees to trial of IV fluids and would want to determine use/limitation of Abx at the time. She has named HCA to include: 1. Deya Mendez, sister, lives in [place] ([phone]) 2. Reginaldo Mendez, brother, lives in [place], [place] ([phone]) Others who may be consulted: Sachin Simms, brother, [place], [place] ([phone]) Francie lives alone, she is agreeable to going to SNF for STR. She prefers to stay in [facility]. Referrals are pending. Her goal would be to return home after STR. She denies having any friends or family locally. Her family is not local as above. Review of Systems Narrative: PER HPI PFSH All Active Problems (Updated 05/23/25 @ 13:58 by Shana Bates NP) Advanced care planning/counseling discussion (Acute) Palliative care encounter (Acute) Encephalopathy (Acute) Demand ischemia (Acute) Flash pulmonary edema (Acute) Acute hypoxemic respiratory failure (Acute) Chronic ulcer of right leg (Acute) Cryoglobulinemic glomerulonephritis (Acute) Pain in right leg (Acute) Microcytic anemia (Acute) Hyperglycemia, drug-induced (Acute) Hyperkalemia (Acute) Lupus nephritis (Acute) On deep vein thrombosis (DVT) prophylaxis (Acute) Acute exacerbation of CHF (congestive heart failure) (Acute) Acute kidney injury superimposed on CKD (Acute) Hematuria (Acute) GAVIN (acute kidney injury) (Acute) Mild peripheral edema (Acute) CHF (congestive heart failure) (Chronic) Cutaneous amyloidosis (Acute) Leg wound, right (Acute) Chronic wound (Acute) Left knee DJD (Chronic) Depo-medrol injection: 02/27/25; 11/28/2024; 08/29/24; 05/30/2024; 02/26/2024; 11/27/2023; 08/17/23 Headache (Acute) Urinary tract infection (Acute) Colovaginal fistula (Acute) Diverticulitis of sigmoid colon (Acute) Amyloidosis (Chronic) Herniated nucleus pulposus, lumbar (Chronic) Antiphospholipid syndrome (Chronic) Trigger thumb of right hand (Acute) Trigger thumb of left hand (Chronic) Nasal vestibulitis (Acute 11/02/17) Nasal congestion (Acute 06/19/14) Deviated nasal septum (Acute 06/19/14) Cephalgia (Acute 11/20/14) Constipation (Chronic) as above HTN (hypertension) (Chronic) GERD (gastroesophageal reflux disease) (Chronic) stable Lupus (Chronic) Medical History Lupus (systemic lupus erythematosus) Hypertension Primary localized cutaneous amyloidosis Cellulitis of right lower limb Lymphocytopenia Normal colonoscopy [place] 11/13/[address] Natalya Styles at [facility], severe diverticular dz, repeat 10 years. mg Hypocalcemia Asthma Allergic rhinitis Abnormal mammogram of right breast Degenerative joint disease Hyperlipidemia Pericarditis Eczema Chest wall pain Insomnia Sciatica, left side Surgical History 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) History of bone marrow biopsy S/P thyroidectomy H/O: hysterectomy Tonsillectomy Social History Smoking/Tobacco Use Status: Former Tobacco Use Quit Date: 08/14/99 Smoking risk assessment performed?: Yes Alcohol Intake: current Alcohol Intake frequency: a few times a week Alcohol type: beer and wine Drug use: Never Substance use type: does not use Household members: none Housing: house Current gender identity: female Do you feel safe at home: Yes Do you feel safe in your relationship?: Yes Additional Social history: Lives alone, formerly cared for older man who in 2024. 2 cats. no travel. Exam Narrative Exam Narrative: General: pleasant, 65 year old female, appears older than stated age, sitting up at the edge of the bed with her legs dependent. HEENT: normocephalic, atraumatic, EOMI, mmm neck: supple Respiratory: respirations appear even and unlabored at rest. Ext: BLE edema noted, RLE with purple discoloation, weeping, skin tears. Moves all 4 extremities freely. Results Last Vital Signs Temp 36.7 C 05/23/25 11:32 Pulse 81 05/23/25 11:32 Resp 16 05/23/25 11:32 BP 170/79 H 05/23/25 11:32 Pulse Ox 98 05/23/25 11:32 Labs 05/23/25 11:28 05/22/25 05:42 Labs: Laboratory Results - last 24 hr 05/23/25 11:28 WBC 17.62 H RBC 3.72 L Hgb 10.1 L D Hct 32.3 L MCV 87 MCH 27.2 MCHC 31.3 L RDW 16.7 H Plt Count 286 MPV 10.0 Immature Gran % 4.3 Neutrophils % 88.9 Lymphocytes % 3.9 Monocytes % 2.4 Eosinophils % 0.2 Basophils % 0.3 Nucleated RBC % 0.1 Absolute Neutrophils 15.66 H Absolute Lymphocytes 0.69 L Absolute Monocytes 0.42 Absolute Eosinophils 0.04 Absolute Basophils 0.05 RBC Morphology Normal Time Spent Time Spent with Patient Time Spent(min): 128
[2025-05-23 12:08] LABS: ALT 18 U/L (14-59); AST 21 U/L (15-37); Albumin 2.6 g/dL (3.4-5.0); Alkaline Phosphatase 153 U/L (46-116); Anion Gap 12.8 mmol/L (3-11); BUN 42 mg/dL (7-18); Bilirubin, Total 0.4 mg/dL (0.2-1.0); CO2 24.2 mmol/L (21.0-32.0); Calcium 7.8 mg/dL (8.5-10.1); Chloride 104 mmol/L (98-107); Estimated GFR 82.74 (mL/min/1.73m2); Glucose 133 mg/dL (74-106); Magnesium 2.2 mg/dL (1.8-2.4); Potassium 4.0 mmol/L (3.5-5.1); Sodium 141 mmol/L (136-145); Total Protein 6.3 g/dL (6.4-8.2)
--- NOTE | 2025-05-23 14:25 | CHAPLAIN ---
Francie was moved from ICU to Med/Surg, and seemed much clearer today. Her brother and his were visiting from [place] and Francie said they were able to do some errands for her and take care of her cats. She told me this afternoon that she's rung out. Her partner here at [facility] a few months ago and she's been working things she's needed to do following his . She is not close to her kids or his kids.
--- NOTE | 2025-05-23 14:37 | PT.INTREAT ---
PT Notes Visit Reasons: CHF Exacerbation, Acute Hypoxic Resp Failure Inpatient Physical Therapy Treatment Note [facility] Date: 05/23/25 SUBJECTIVE: Francie states that her legs are stiff. Willing to walk this afternoon. OBJECTIVE: []? VITALS: ?monitored by [facility] [place] Therapeutic Activities ([id number]): Direct one-on-one instruction in dynamic activities to improve functional performance. ? BED MOBILITY/TRANSFERS? Sit-supine: max A of B LE? Sit-stand: CGA ? Stand-sit: SBA ? Provided skilled cues and instruction on performance and technique throughout. GAIT? Assistive Device:FWW? Weight bearing: FWB Assist: CGA/SBA? Distance:?20'x2? Deviation: slow thomas, short stride, WBOS ? Therapeutic Exercises ([id number]): Direct one-on-one instruction in therapeutic exercises to develop strength, endurance, range of motion and flexibility. ? Exercises LAQ: 10x, october 10x, sit to stands x5 (hands resting on walker)? pt was toileted. She was able to provide self anton care. ASSESSMENT:? tolerated session well. Steady on her feet. Able to ambulate and transfer sit to stand safely. Increased drainage in right LE post session today. She did get into bed with legs elevated on pillows. Encouraged her to avoid sitting up, as her legs need to be above heart to be considered elevated. PLAN: will continue progressing her strength and functional mobility following PT POC. TREATMENT CODE/TIME: 35 min [id number], 15019x5
[2025-05-23] MEDS: Tamsulosin 0.4 MG CAPCR PO (14:57)
--- NOTE | 2025-05-23 15:34 | W.PM.PROGNOT ---
Date of Service Date of service: 05/23/25 Time of Service: 13:00 Assessment and Plan Assessment and plan (1) Acute exacerbation of CHF (congestive heart failure): Status: Acute Assessment and plan: -patient presented with elevated BP, hypoxia, and signs of pulmonary edema on CXR -s/p 40mg IV lasix in ED, will continue BID and follow urine output - holding home labetolol and amlodipine -last TTE on 04/19 showed EF 65%, normal wall motion, and dilated left atria (2) Acute hypoxemic respiratory failure: Status: Acute Assessment and plan: - secondary to CHF exacerbation as noted above - Had been briefly on BiPAP, and up to 4 L nasal cannula - Has been transition to room air as of the time of my exam - Goal oxygen saturation 88 to 92% (3) Cellulitis of leg, right: Status: Resolved Assessment and plan: -diagnosed during previous hospitalization -will continue PO doxy and amoxicillin (4) Chronic ulcer of right leg: Status: Acute Assessment and plan: -as noted above - Will continue wound care with Santyl and dressings (5) Cryoglobulinemic glomerulonephritis: Status: Acute Assessment and plan: -Not Lupus Nephritis. Recent diagnosed s/p biopsy, treated with prednisone. -Renal function improving since previous admission -continue prednisone pending plan from Dr. Rolle from [facility] nephrology at decreased dose of 30mg daily -Continue PJP prophylaxis with 3xWeek TMP/SMX as well unitl off steroids, monitor potassium. (6) Microcytic anemia: Status: Acute Assessment and plan: -chornic, follow. (7) Lupus (systemic lupus erythematosus): Assessment and plan: -This has been stable on hydroxycholoroquine. -Case reviewed with [facility] rheumatology fellow. No change in management. (8) On deep vein thrombosis (DVT) prophylaxis: Status: Acute Assessment and plan: -u/s negative for VTE, on exoxaparin for prophylaxis -Known hypercoagulable state, but had hemorrhagic pericardial effusion while on full anticoagulation with warfarin. (9) Encephalopathy: Status: Acute Assessment and plan: -secondary to ambien given overnight 05/20 -patient was hallucinating and unable to follow commands -will add to allergy list Subjective Subjective Interval history since last seen: Mrs Yusuf is sitting up at the edge of the bed. She reports that her right leg hurts a great deal, exacerbated with any touch or fabric. Both legs remain much more swollen than normal for her. She had purchased compression stockings before her lengthy hospitalization which fit her but no longer would. Exam Narrative Exam Narrative: General: This is an obese, chronically ill-appearing woman in no acute distress HEENT: Normocephalic, atraumatic CV: RRR. BLE profuse weeping edema. Skin tears on right anterior lower leg. Resp: Mild bibasilar rales Abd: soft, NTND MSK: voluntary motion x4 Neuro: awake, alert, no focal deficits Objective Last Vital Signs Temp 36.5 C 05/23/25 15:05 Pulse 79 05/23/25 15:05 Resp 17 05/23/25 15:05 BP 158/76 H 05/23/25 15:05 Pulse Ox 97 05/23/25 15:05 Laboratory Results - last 24 hr 05/23/25 11:28 WBC 17.62 H RBC 3.72 L Hgb 10.1 L D Hct 32.3 L MCV 87 MCH 27.2 MCHC 31.3 L RDW 16.7 H Plt Count 286 MPV 10.0 Immature Gran % 4.3 Neutrophils % 88.9 Lymphocytes % 3.9 Monocytes % 2.4 Eosinophils % 0.2 Basophils % 0.3 Nucleated RBC % 0.1 Absolute Neutrophils 15.66 H Absolute Lymphocytes 0.69 L Absolute Monocytes 0.42 Absolute Eosinophils 0.04 Absolute Basophils 0.05 RBC Morphology Normal Sodium 141 Potassium 4.0 Chloride 104 Carbon Dioxide 24.2 Anion Gap 12.8 H BUN 42 H Creatinine 0.8 Est GFR (CKD-EPI 2020) 82.74 Glucose 133 H Calcium 7.8 L Magnesium 2.2 Total Bilirubin 0.4 AST 21 ALT 18 Alkaline Phosphatase 153 H Total Protein 6.3 L Albumin 2.6 L Time Spent with Patient Time Spent with Patient: 35-49 minutes Time was spent: other
--- NOTE | 2025-05-23 16:19 | CMPROGNOTE_ITS ---
Date of service: 05/23/25 Time of Service: 16:19 Care Management Progress Note Progress Note Text Progress Note Text: Francie was sitting up on the edge of her bed when CM met with her. CM discussed her discharge plan, which includes the possibility of her going to SNF, if accepted. CM followed up on referrals today; [facility] currently [facility], therefore they declined due to capacity. [facility] is still reviewing the referral. Francie stated that she is agreeable to going to SNF or returning home, but feels she will need some help at home. She had HH orders on her recent discharge, but she returned to the hospital before HH was initiated, therefore she will require a new referral to start care at home. CM will continue to follow. Discharge Potential Discharge Needs: PCP F/U Appt and Other (SNF referrals placed) Anticipated Barriers to Discharge: Bed availability Patient/Family Education Needs: Review discharge instructions, discuss Ask Me Three Transportation: Private vehicle Plan: Francie will transfer to SNF vs return home with new orders for HH RN, PT, OT, YARD SWITCHER, once medically cleared. She will transport via private vehicle by a friend. She will follow up with her PCP and discharge plan of care. Social Determinants of Health Screening Social Determinants of health last assessed in clinic: 05/23/25 Will the Patient Participate in the Screening?: Yes Do you worry about having a steady place to live?: no Problems where you live: no known problems In the past 12 months, have you had to go without electric, gas, oil or water in your home?: no 1. Within the past 12 months, we worried whether our food would run out before we got money to buy more.: Don't know/refused 2. Within the past 12 months, the food we bought just didn't last and we didn't have money to get more.: Don't know/refused Has lack of transportation kept you from medical appointments or from doing things needed for daily living?: no Has anyone in your life made you feel unsafe or unsupported?: choose not to answer How hard is it for you to pay for the very basics like food, housing, medical care, and heating? Would you say it is:: Not hard at all Do you want help finding or keeping work or a job?: I do not need or want help If for any reason you need help with day-to-day activities such as bathing, preparing meals, shopping, managing finances, etc., do you get the help you need?: I could use a little more help How often do you feel lonely or isolated from those around you?: Sometimes Do you speak a language other than Pashto at home?: No Comments: patient feels she would benefit from having some home health assistance with dressing changes. Health Related Social Needs Health related social needs: problems with daily activities (Z73.9) and feeling lonely/isolated (Z60.8) Health related social needs details: patient would like to discuss options with case management.
[2025-05-23] MEDS: Furosemide 40 MG/4 ML VIAL 60 MG IVP (17:45)
[2025-05-23] MEDS: Sulfameth/Trimeth DS TAB 1 TAB PO (17:45)
[2025-05-23] MEDS: Pramipexole 0.25 MG TAB 0.125 MG PO (19:37)
[2025-05-23] MEDS: Simvastatin 40 MG TAB PO (19:38)
[2025-05-23] MEDS: Melatonin 3 MG TAB 9 MG PO (19:38)
[2025-05-23] MEDS: Sennosides/Docusate Sodium TAB 1 TAB PO (19:39)
[2025-05-24] VITALS (29 sets, daily range): BP systolic 127–145; BP diastolic 58–93; PULSE 67–105; RESP 15–19; TEMP 36.5–36.6; O2SAT 94–98
[2025-05-24] MEDS: oxyCODONE 5 MG TAB PO ×6 (00:15→23:15)
[2025-05-24] MEDS: Levothyroxine 150 MCG TAB PO (05:25)
[2025-05-24] MEDS: Nystatin 500000 UNITS/5 ML SUSP 5ML CUP PO ×3 (08:03→19:48)
[2025-05-24] MEDS: Furosemide 40 MG/4 ML VIAL 60 MG IVP ×2 (08:04→15:54)
[2025-05-24] MEDS: Enoxaparin 40 MG/0.4 ML SYR SC (08:04)
[2025-05-24] MEDS: Gabapentin 400 MG CAP PO ×2 (08:04→19:49)
[2025-05-24] MEDS: Amoxicillin 875 MG TAB PO ×2 (08:05→19:49)
[2025-05-24] MEDS: predniSONE 10 MG TAB 30 MG PO (08:05)
[2025-05-24] MEDS: Normal Saline Flush 10 ML SYR IVP ×3 (08:05→19:50)
[2025-05-24] MEDS: Sennosides/Docusate Sodium TAB 1 TAB PO ×2 (08:05→19:49)
[2025-05-24] MEDS: Aspirin E.C. 81 MG TABEC PO (08:05)
[2025-05-24] MEDS: Hydroxychloroquine 200 MG TAB PO (08:05)
[2025-05-24] MEDS: Doxycycline Hyclate 100 MG CAP PO ×2 (08:05→19:49)
[2025-05-24] MEDS: Mometasone 220 MCG 14 DOSE INHALER 1 PUFF IH (08:18)
[2025-05-24] MEDS: Collagenase 30 GM TUBE TP (09:33)
[2025-05-24 10:04] LABS: Glucose Negative (Negative)
[2025-05-24 10:10] LABS: RBC >50 HPF (0-2)
[2025-05-24 10:11] LABS: C & S Indicated? No
[2025-05-24] MEDS: Magnesium Oxide 400 MG TAB PO (11:05)
[2025-05-24] MEDS: Tamsulosin 0.4 MG CAPCR PO (11:05)
--- NOTE | 2025-05-24 14:25 | PT.INTREAT ---
PT Notes Visit Reasons: CHF Exacerbation, Acute Hypoxic Resp Failure Inpatient Physical Therapy Treatment Note [facility] Date: 05/24/25 SUBJECTIVE: Francie states that she walked with nursing earlier today. OBJECTIVE: ? VITALS: ?monitored by ns Therapeutic Activities (08222u7): ? BED MOBILITY/TRANSFERS? Sit-supine: max A of B LE? ? (sleeps in recliner at home)? Sit-stand: SBA? Stand-sit: SBA ? Provided skilled cues and instruction on performance and technique throughout. ? Therapeutic Exercises (12271p1): Direct one-on-one instruction in therapeutic exercises to develop strength, endurance, range of motion and flexibility. ? Exercises standing march 10x with bilat UE support to FWW sit-stand x 2 standing hip AB, CGA and bilat UE support to FWW quad sets 10x? GAIT? Assistive Device:FWW? Weight bearing: FWB Assist: SBA? Distance:?20'x2? Deviation: slow thomas, short stride, WBOS . Observed to ambulate 120' with nursing providing SBA earlier today. ? ASSESSMENT:? Tolerated session well, and doing some walking with nursing now. Encourage continued LE elevation when not up walking. Demonstrates good safety and mobility, with improving independence. Anticipate she'll be approrpriate for d/c home with services when medically appropriate. PLAN: will continue progressing her strength and functional mobility following PT POC. TREATMENT CODE/TIME: 20 min, 11639n2 Discharge recommendations: Home with HHPT
--- NOTE | 2025-05-24 16:23 | W.PM.PROGNOT ---
Date of Service Date of service: 05/24/25 Time of Service: 11:00 Assessment and Plan Assessment and plan (1) Acute exacerbation of CHF (congestive heart failure): Status: Acute Assessment and plan: -patient presented with elevated BP, hypoxia, and signs of pulmonary edema on CXR -s/p 40mg IV lasix in ED, will continue BID and follow urine output - holding home labetolol and amlodipine -last TTE on 04/19 showed EF 65%, normal wall motion, and dilated left atria May 24: she is hemodynamically stable with persistent lower extremity edema, multifactorial. She is encouraged to ambulate and elevate. Anticipate discharge home with home health Monday. (2) Acute hypoxemic respiratory failure: Status: Acute Assessment and plan: - secondary to CHF exacerbation as noted above - Had been briefly on BiPAP, and up to 4 L nasal cannula - Has been transition to room air as of the time of my exam - Goal oxygen saturation 88 to 92% May 24: she is on room air (3) Cellulitis of leg, right: Status: Resolved Assessment and plan: -diagnosed during previous hospitalization -will continue PO doxy and amoxicillin May 24: antibiotics will not cure infection without adequate blood flow to the leg. As above, encouraging ambulation and elevation. (4) Chronic ulcer of right leg: Status: Chronic Assessment and plan: -as noted above - Will continue wound care with Santyl and dressings (5) Cryoglobulinemic glomerulonephritis: Status: Chronic Assessment and plan: -Not Lupus Nephritis. Recent diagnosed s/p biopsy, treated with prednisone. -Renal function improving since previous admission -continue prednisone pending plan from Dr. Rolle from [facility] nephrology at decreased dose of 30mg daily -Continue PJP prophylaxis with 3xWeek TMP/SMX as well unitl off steroids, monitor potassium. (6) Microcytic anemia: Status: Chronic Assessment and plan: -chornic, follow. (7) Lupus (systemic lupus erythematosus): Assessment and plan: -This has been stable on hydroxycholoroquine. -Case reviewed with [facility] rheumatology fellow. No change in management. (8) On deep vein thrombosis (DVT) prophylaxis: Status: Chronic Assessment and plan: -u/s negative for VTE, on exoxaparin for prophylaxis -Known hypercoagulable state, but had hemorrhagic pericardial effusion while on full anticoagulation with warfarin. (9) Encephalopathy: Status: Acute Assessment and plan: -secondary to ambien given overnight 05/20 -patient was hallucinating and unable to follow commands -will add to allergy list Subjective Subjective Interval history since last seen: Mrs. Yusuf is able to ambulate to the bathroom without difficulty and walked multiple times today. Her right lower leg continues to be extremely painful to any touch. She reports that she is doing much better with keeping her legs elevated when in bed. Exam Narrative Exam Narrative: General: This is an obese, chronically ill-appearing woman in no acute distress HEENT: Normocephalic, atraumatic CV: RRR. BLE profuse weeping edema. Skin tears on right anterior lower leg. Resp: Mild bibasilar rales Abd: soft, NTND MSK: voluntary motion x4 Neuro: awake, alert, no focal deficits Objective Last Vital Signs Temp 36.5 C 05/24/25 15:48 Pulse 105 H 05/24/25 15:48 Resp 16 05/24/25 15:48 BP 144/93 H 05/24/25 15:48 Pulse Ox 94 05/24/25 15:48 Laboratory Results - last 24 hr 05/24/25 09:52 Urine Color Yellow Urine Clarity Sl Cloudy Urine pH 5.5 Ur Specific Frederic 1.010 Urine Protein Negative Urine Ketones Negative Urine Blood Large H Urine Nitrite Negative Urine Bilirubin Negative Urine Urobilinogen 0.2 Ur Leukocyte Esterase Trace H Urine RBC >50 H Urine WBC 3-5 Ur Epithelial Cells Few Urine Crystals Negative Urine Bacteria Rare Urine Casts Negative Urine Mucus Negative Ur Culture Indicated? No Urine Glucose Negative Time Spent with Patient Time Spent with Patient: 25-34 minutes Time was spent: preparing to see the patient(eg.review tests), obtaining and/or reviewing separately otained hiistory, ordering medications,tests, procedures, referring, communicating with other health manager critical care unit, indepentently interpreting results, counseling the patient and care coordination
[2025-05-24] MEDS: Melatonin 3 MG TAB 9 MG PO (19:48)
[2025-05-24] MEDS: Pramipexole 0.25 MG TAB 0.125 MG PO (19:49)
[2025-05-24] MEDS: Simvastatin 40 MG TAB PO (19:50)
[2025-05-25] VITALS (10 sets, daily range): BP systolic 130–143; BP diastolic 62–76; PULSE 65–86; RESP 15–18; TEMP 36.5–36.8; O2SAT 93–99
[2025-05-25] MEDS: oxyCODONE 5 MG TAB PO ×5 (03:24→21:33)
[2025-05-25] MEDS: Levothyroxine 150 MCG TAB PO (05:48)
[2025-05-25] MEDS: Furosemide 40 MG/4 ML VIAL 60 MG IVP ×2 (08:02→16:50)
[2025-05-25] MEDS: Nystatin 500000 UNITS/5 ML SUSP 5ML CUP PO ×3 (08:02→21:34)
[2025-05-25] MEDS: Aspirin E.C. 81 MG TABEC PO (08:03)
[2025-05-25] MEDS: Doxycycline Hyclate 100 MG CAP PO ×2 (08:03→21:34)
[2025-05-25] MEDS: Sennosides/Docusate Sodium TAB 1 TAB PO ×2 (08:03→21:34)
[2025-05-25] MEDS: Gabapentin 400 MG CAP PO ×2 (08:04→21:34)
[2025-05-25] MEDS: Tamsulosin 0.4 MG CAPCR PO (08:04)
[2025-05-25] MEDS: predniSONE 10 MG TAB 30 MG PO (08:04)
[2025-05-25] MEDS: Enoxaparin 40 MG/0.4 ML SYR SC (08:04)
[2025-05-25] MEDS: Normal Saline Flush 10 ML SYR IVP ×3 (08:04→21:36)
[2025-05-25] MEDS: Amoxicillin 875 MG TAB PO ×2 (08:04→21:34)
[2025-05-25] MEDS: Hydroxychloroquine 200 MG TAB PO (08:04)
[2025-05-25] MEDS: Mometasone 220 MCG 14 DOSE INHALER 1 PUFF IH (08:08)
[2025-05-25] MEDS: Collagenase 30 GM TUBE TP (09:10)
[2025-05-25] MEDS: Magnesium Oxide 400 MG TAB PO (11:03)
--- NOTE | 2025-05-25 13:03 | PT.INTREAT ---
PT Notes Visit Reasons: CHF Exacerbation, Acute Hypoxic Resp Failure Inpatient Physical Therapy Treatment Note [facility] Date: 05/25/25 SUBJECTIVE: Francie states that she is feeling well. She is apprehensive about returning home. OBJECTIVE: ? VITALS: ?monitored by [facility] Therapeutic Activities (83147c1): ? BED MOBILITY/TRANSFERS? Sit-supine: max A of B LE? ? (sleeps in recliner at home)? Sit-stand: independent? Stand-sit: independent chair to toilet: independent with FWW ? Provided skilled cues and instruction on performance and technique throughout. ? Therapeutic Exercises (40485o5): Direct one-on-one instruction in therapeutic exercises to develop strength, endurance, range of motion and flexibility. ? Exercises standing march 10x with bilat UE support to FWW sit-stand x 5 standing hip AB, CGA and bilat UE support to FWW standing shoulder flexion, CGA 10x?? GAIT? Assistive Device:FWW? Weight bearing: FWB Assist: SBA? Distance:?150'? Deviation: slow thomas, short stride, WBOS . ? ASSESSMENT:? Tolerated session well, and doing some walking with nursing now. Encourage continued LE elevation when not up walking. Demonstrates good safety and mobility, with improving independence. Approrpriate for d/c home with services when medically appropriate. PLAN: will continue progressing her strength and functional mobility following PT POC. TREATMENT CODE/TIME: 20 min, 17473c1 Discharge recommendations: Home with HHPT
--- NOTE | 2025-05-25 14:01 | PGE_ITS ---
Date of Service Date of service: 05/25/25 Time of Service: 13:00 Assessment and Plan Assessment and plan (1) Acute exacerbation of CHF (congestive heart failure): Status: Resolved Assessment and plan: -patient presented with elevated BP, hypoxia, and signs of pulmonary edema on CXR -s/p 40mg IV lasix in ED, will continue BID and follow urine output - holding home labetolol and amlodipine -last TTE on 04/19 showed EF 65%, normal wall motion, and dilated left atria Oct 11: she is hemodynamically stable with persistent lower extremity edema, multifactorial. She is encouraged to ambulate and elevate. Anticipate discharge home with home health when her legs have improved. (2) Acute hypoxemic respiratory failure: Status: Resolved Assessment and plan: - secondary to CHF exacerbation as noted above - Had been briefly on BiPAP, and up to 4 L nasal cannula - Has been transition to room air as of the time of my exam - Goal oxygen saturation 88 to 92% Oct 11: she is on room air (3) Cellulitis of leg, right: Status: Resolved Assessment and plan: -diagnosed during previous hospitalization -will continue PO doxy and amoxicillin May 24: antibiotics will not cure infection without adequate blood flow to the leg. As above, encouraging ambulation and elevation. May 12: discussed leg care with nursing staff. Must have assistance with compression - use Unna boot or north bandage on any intact skin on both legs. Must have assistance with elevation of the legs; legs must be at heart level or higher. Hopefully she will improve enough to tolerate a day of being home alone before home health is available. (4) Chronic ulcer of right leg: Status: Chronic Assessment and plan: -as noted above - Will continue wound care with Santyl and dressings - Compression with Unna boot and/or north bandages (5) Cryoglobulinemic glomerulonephritis: Status: Chronic Assessment and plan: -Not Lupus Nephritis. Recent diagnosed s/p biopsy, treated with prednisone. -Renal function improving since previous admission -continue prednisone pending plan from Dr. Rolle from [facility] nephrology at decreased dose of 30mg daily -Continue PJP prophylaxis with 3xWeek TMP/SMX as well unitl off steroids, monitor potassium. (6) Microcytic anemia: Status: Chronic Assessment and plan: -chronic, follow. (7) Lupus (systemic lupus erythematosus): Assessment and plan: -This has been stable on hydroxycholoroquine. -Case reviewed with [facility] rheumatology fellow. No change in management. (8) On deep vein thrombosis (DVT) prophylaxis: Status: Chronic Assessment and plan: -u/s negative for VTE, on exoxaparin for prophylaxis -Known hypercoagulable state, but had hemorrhagic pericardial effusion while on full anticoagulation with warfarin. (9) Encephalopathy: Status: Resolved Assessment and plan: -secondary to ambien given overnight 05/20 -patient was hallucinating and unable to follow commands -will add to allergy list Subjective Subjective Interval history since last seen: Mrs. Yusuf is comfortable, up in a chair. The front of her right lower leg continues to be extremely painful with ongoing loss of skin and weeping. She does not have help at home and will not be able to take care of elevating and wrapping her legs without assistance. She has not been accepted to SNF. Exam Narrative Exam Narrative: General: This is an obese, chronically ill-appearing woman in no acute distress HEENT: Normocephalic, atraumatic CV: RRR. BLE profuse weeping edema. Skin tears on right anterior lower leg. Resp: Mild bibasilar rales Abd: soft, NTND MSK: voluntary motion x4 Neuro: awake, alert, no focal deficits Objective Last Vital Signs Temp 36.5 C 05/25/25 10:43 Pulse 77 05/25/25 10:43 Resp 16 05/25/25 10:43 BP 143/65 H 05/25/25 10:43 Pulse Ox 96 05/25/25 10:43 Time Spent with Patient Time Spent with Patient: 25-34 minutes Time was spent: preparing to see the patient(eg.review tests), obtaining and/or reviewing separately otained hiistory, ordering medications,tests, procedures, referring, communicating with other health certified social workers in health care, indepentently interpreting results, counseling the patient and care coordination
[2025-05-25] MEDS: Melatonin 3 MG TAB 9 MG PO (21:34)
[2025-05-25] MEDS: Pramipexole 0.25 MG TAB 0.125 MG PO (21:34)
[2025-05-25] MEDS: Simvastatin 40 MG TAB PO (21:34)
[2025-05-26] VITALS (7 sets, daily range): BP systolic 119–138; BP diastolic 52–77; PULSE 70–81; RESP 15–18; TEMP 36.5–36.9; O2SAT 94–100
[2025-05-26] MEDS: oxyCODONE 5 MG TAB PO ×5 (02:34→22:09)
[2025-05-26] MEDS: Levothyroxine 150 MCG TAB PO (06:32)
[2025-05-26] MEDS: Mometasone 220 MCG 14 DOSE INHALER 1 PUFF IH (07:35)
[2025-05-26] MEDS: predniSONE 10 MG TAB 30 MG PO (07:56)
[2025-05-26] MEDS: Aspirin E.C. 81 MG TABEC PO (07:57)
[2025-05-26] MEDS: Tamsulosin 0.4 MG CAPCR PO (07:57)
[2025-05-26] MEDS: Amoxicillin 875 MG TAB PO ×2 (07:57→19:15)
[2025-05-26] MEDS: Gabapentin 400 MG CAP PO ×2 (07:57→19:15)
[2025-05-26] MEDS: Doxycycline Hyclate 100 MG CAP PO ×2 (07:57→19:15)
[2025-05-26] MEDS: Sennosides/Docusate Sodium TAB 1 TAB PO ×2 (07:57→19:15)
[2025-05-26] MEDS: Hydroxychloroquine 200 MG TAB PO (07:57)
[2025-05-26] MEDS: Furosemide 40 MG/4 ML VIAL 60 MG IVP ×2 (07:58→16:12)
[2025-05-26] MEDS: Enoxaparin 40 MG/0.4 ML SYR SC (07:58)
[2025-05-26] MEDS: Normal Saline Flush 10 ML SYR IVP ×2 (07:59→19:16)
[2025-05-26] MEDS: Nystatin 500000 UNITS/5 ML SUSP 5ML CUP PO ×3 (08:00→19:14)
--- NOTE | 2025-05-26 10:08 | PT.INTREAT ---
PT Notes Visit Reasons: CHF Exacerbation, Acute Hypoxic Resp Failure Date: 05/26/2025 PRECAUTIONS: Fall, contact precautions. Activity as tolerated. SUBJECTIVE: Pt in recliner when approached on both occasion during morning session as well as during the aftyernoon session. pt agreed to PT intervention but requested to use the toilet prior to participating withbtherapy session on both occasion. OBJECTIVE: ?BLE swelling, weeping edema ? PAIN: achy BLE VITALS: Closely monitored by nursing Therapeutic Activities 69639: Direct one-on-one instruction in dynamic activities to improve functional performance. ?? BED MOBILITY/TRANSFERS? Rolling L/R: Supervision Supine-sit: ?supervision ? Sit-supine: ? supervision? Sit-stand: ?supervision? Stand-sit: ??supervision? Bed-Chair: supervision ? Chair-bed: supervision Provided skilled cues and instruction on performance and technique throughout. Gait Training 22416: Direct one-on-one instruction and skilled instruction in: Employing an assistive device Modified weight-bearing status Movement sequencing Turning and movement with proper form Provided verbal cues for equipment management and technique Provided instruction in gait pattern Patient education regarding pacing and breathing techniques to maximize activity tolerance? GAIT? Assistive Device: ?FWW? Weight bearing: FWB Assist: ? SBA? Distance:?? 150x1, 200x1 am, 150x1, 200x1 pm? Deviation: ? slow thomas, short stride, low step height, WBOS . ? STAIRS:? bilateral handrail step to gait pattern 4 steps x2 sets up/down SBA am, bilateral handrail step to gait pattern 4 steps x2 sets up/down SBA pm? Therapeutic Exercises 63458: Direct one-on-one instruction in therapeutic exercises to develop strength, endurance, range of motion and flexibility. Exercises ? ? ? standing march 10x with bilat UE support to FWW sit-stand x 10 standing hip AB, CGA and bilat UE support to FWW standing shoulder flexion, CGA 10x Standing Heel to toe raise [id number] Seated LAQ [id number] Seated SAQ [id number] Seated hop abduction [id number] Seated SLR [id number]? Provided skilled instruction in proper exercise performance Provided skilled manual cues to facilitate proper muscle recruitment and/or form: ASSESSMENT:?pt tolerated activity well, stayed in recliner after session to rest, pt reports she has been doing her HEP on down time when not with therapy. PLAN: Continue with balance training, global strengthening and general conditioning for improved safety, mobility and activity tolerance until pt is ready for DC. TREATMENT CODE/TIME: 99656l5, 86576k3 30mins (9:00-9:30am), 06996g3, 13844u7 25mins (1:30-1:55pm)
[2025-05-26] MEDS: Sulfameth/Trimeth DS TAB 1 TAB PO (11:04)
[2025-05-26] MEDS: Magnesium Oxide 400 MG TAB PO (11:40)
--- NOTE | 2025-05-26 12:03 | CMPROGNOTE_ITS ---
Date of service: 05/26/25 Time of Service: 12:03 Care Management Progress Note Progress Note Text Progress Note Text: Francie was sitting upright in her chair when CM met with her. [facility] has offered Francie a bed for STR, pending prior authorization. Francie has expressed her willingness to accept this offer. She is also aware and expresses understanding of the alternative which would be returning home with home health services should the prior authorization not be approved. The care team is aware of both discharge options. Per report, it is recommended Francie should continue to elevate her legs. CM will continue to follow and support discharge planning. Discharge Potential Discharge Needs: PCP F/U Appt Anticipated Barriers to Discharge: None Identified Patient/Family Education Needs: Review discharge instructions, discuss Ask Me Three Transportation: Private vehicle Plan: Anticipate Francie will transfer to SNF pending prior auth vs return home with new orders for HH RN, PT, OT, STERILIZER MACHINE OPERATOR, once medically cleared. She will transport via private vehicle by a friend. She will follow up with her PCP and discharge plan of care. Social Determinants of Health Screening Social Determinants of health last assessed in clinic: 05/26/25 Will the Patient Participate in the Screening?: Yes Do you worry about having a steady place to live?: no Problems where you live: no known problems In the past 12 months, have you had to go without electric, gas, oil or water in your home?: no 1. Within the past 12 months, we worried whether our food would run out before we got money to buy more.: Don't know/refused 2. Within the past 12 months, the food we bought just didn't last and we didn't have money to get more.: Don't know/refused Has lack of transportation kept you from medical appointments or from doing things needed for daily living?: no Has anyone in your life made you feel unsafe or unsupported?: choose not to answer How hard is it for you to pay for the very basics like food, housing, medical care, and heating? Would you say it is:: Not hard at all Do you want help finding or keeping work or a job?: I do not need or want help If for any reason you need help with day-to-day activities such as bathing, preparing meals, shopping, managing finances, etc., do you get the help you need?: I could use a little more help How often do you feel lonely or isolated from those around you?: Sometimes Do you speak a language other than Arabic at home?: No Comments: patient feels she would benefit from having some home health assistance with dressing changes. Health Related Social Needs Health related social needs: problems with daily activities (Z73.9) and feeling lonely/isolated (Z60.8) Health related social needs details: patient would like to discuss options with case management.
[2025-05-26] MEDS: Collagenase 30 GM TUBE TP (13:20)
--- NOTE | 2025-05-26 18:35 | PGE_ITS ---
Date of Service Date of service: 05/26/25 Time of Service: 09:00 Assessment and Plan Assessment and plan (1) Acute exacerbation of CHF (congestive heart failure): Status: Resolved Assessment and plan: -patient presented with elevated BP, hypoxia, and signs of pulmonary edema on CXR -s/p 40mg IV lasix in ED, will continue BID and follow urine output - holding home labetolol and amlodipine -last TTE on 04/19 showed EF 65%, normal wall motion, and dilated left atria She is hemodynamically stable with persistent lower extremity edema, multifactorial. She is encouraged to ambulate and elevate. Anticipate discharge to rehab or to home with home health when her legs have improved. (2) Acute hypoxemic respiratory failure: Status: Resolved Assessment and plan: - secondary to CHF exacerbation as noted above - Had been briefly on BiPAP, and up to 4 L nasal cannula - Has been transition to room air as of the time of my exam - Goal oxygen saturation 88 to 92% On room air as of May 24 (3) Cellulitis of leg, right: Status: Resolved Assessment and plan: -diagnosed during previous hospitalization -will continue PO doxy and amoxicillin May 24: antibiotics will not cure infection without adequate blood flow to the leg. As above, encouraging ambulation and elevation. May 25: discussed leg care with nursing staff. Must have assistance with compression - use Unna boot or north bandage on any intact skin on both legs. Must have assistance with elevation of the legs; legs must be at heart level or higher. Hopefully she will improve enough to tolerate a day of being home alone before home health is available. May 26: BLE improvement with wraps and elevation. Mrs. Yusuf has taken to her leg care with new energy today. (4) Chronic ulcer of right leg: Status: Chronic Assessment and plan: -as noted above - Will continue wound care with Santyl and dressings - Compression with Unna boot and/or north bandages (5) Cryoglobulinemic glomerulonephritis: Status: Chronic Assessment and plan: -Not Lupus Nephritis. Recent diagnosed s/p biopsy, treated with prednisone. -Renal function improving since previous admission -continue prednisone pending plan from Dr. Rolle from [facility] nephrology at decreased dose of 30mg daily -Continue PJP prophylaxis with 3xWeek TMP/SMX as well unitl off steroids, monitor potassium. (6) Microcytic anemia: Status: Chronic Assessment and plan: -chronic, follow. (7) Lupus (systemic lupus erythematosus): Assessment and plan: -This has been stable on hydroxycholoroquine. -Case reviewed with [facility] rheumatology fellow. No change in management. (8) On deep vein thrombosis (DVT) prophylaxis: Status: Chronic Assessment and plan: -u/s negative for VTE, on exoxaparin for prophylaxis -Known hypercoagulable state, but had hemorrhagic pericardial effusion while on full anticoagulation with warfarin. (9) Encephalopathy: Status: Resolved Assessment and plan: -secondary to ambien given overnight 05/20 -patient was hallucinating and unable to follow commands -will add to allergy list Subjective Subjective Interval history since last seen: Mrs. Yusuf reports that her legs both feel better and her right leg seems to have less drainage. She is happy to be going to a facility where she will get care and physical therapy. Exam Narrative Exam Narrative: General: This is an obese, chronically ill-appearing woman in no acute distress HEENT: Normocephalic, atraumatic CV: RRR. BLE severe edema. Skin tears on right anterior lower leg, less drainage than previous. Resp: Mild bibasilar rales Abd: soft, NTND MSK: voluntary motion x4 Neuro: awake, alert, no focal deficits Objective Last Vital Signs Temp 36.5 C 05/26/25 15:06 Pulse 72 05/26/25 15:06 Resp 17 05/26/25 15:06 BP 138/66 05/26/25 15:06 Pulse Ox 97 05/26/25 15:06 Time Spent with Patient Time Spent with Patient: 25-34 minutes Time was spent: preparing to see the patient(eg.review tests), obtaining and/or reviewing separately otained hiistory, ordering medications,tests, procedures, referring, communicating with other health day care director, indepentently interpreting results, counseling the patient and care coordination
[2025-05-26] MEDS: Simvastatin 40 MG TAB PO (19:15)
[2025-05-26] MEDS: Pramipexole 0.25 MG TAB 0.125 MG PO (19:15)
[2025-05-26] MEDS: Melatonin 3 MG TAB 9 MG PO (19:15)
[2025-05-27 02:24] VITALS: BP 122/50; PULSE 70; RESP 16; TEMP 36.6; O2SAT 98
[2025-05-27] MEDS: oxyCODONE 5 MG TAB PO ×5 (02:42→23:35)
[2025-05-27] MEDS: Levothyroxine 150 MCG TAB PO (05:27)
[2025-05-27 07:00] LABS: Abs Immature Grans 0.20 10^3/uL (0.0-0.06); HCT 28.6 % (36.0-46.0); HGB 9.1 g/dL (11.2-15.7); Immature Grans % 1.5 %; MCH 27.2 pg (27.0-33.0); MCHC 31.8 % (32.0-36.0); MCV 85 fL (80-95); MPV 10.0 fL (8.0-11.0); Platelet Count 309 10^3/uL (130-400); RBC 3.35 10^6/uL (3.93-5.22); RDW 16.4 % (11.7-14.6); RDW-SD 50.4 fL; WBC 13.09 10^3/uL (4.4-10.8)
[2025-05-27 07:12] LABS: ALT 15 U/L (14-59); AST 15 U/L (15-37); Albumin 2.4 g/dL (3.4-5.0); Alkaline Phosphatase 115 U/L (46-116); Anion Gap 8.5 mmol/L (3-11); BUN 29 mg/dL (7-18); Bilirubin, Total 0.4 mg/dL (0.2-1.0); CO2 30.5 mmol/L (21.0-32.0); Calcium 7.2 mg/dL (8.5-10.1); Chloride 103 mmol/L (98-107); Estimated GFR 56.46 (mL/min/1.73m2); Glucose 93 mg/dL (74-106); Magnesium 2.1 mg/dL (1.8-2.4); Potassium 3.5 mmol/L (3.5-5.1); Sodium 142 mmol/L (136-145); Total Protein 5.4 g/dL (6.4-8.2)
[2025-05-27] MEDS: predniSONE 10 MG TAB 30 MG PO (07:43)
[2025-05-27] MEDS: Nystatin 500000 UNITS/5 ML SUSP 5ML CUP PO ×3 (07:44→20:21)
[2025-05-27] MEDS: Gabapentin 400 MG CAP PO ×2 (07:44→20:21)
[2025-05-27] MEDS: Furosemide 40 MG/4 ML VIAL 60 MG IVP ×2 (07:44→15:18)
[2025-05-27] MEDS: Tamsulosin 0.4 MG CAPCR PO (07:44)
[2025-05-27] MEDS: Hydroxychloroquine 200 MG TAB PO (07:44)
[2025-05-27] MEDS: Aspirin E.C. 81 MG TABEC PO (07:44)
[2025-05-27] MEDS: Sennosides/Docusate Sodium TAB 1 TAB PO ×2 (07:44→20:21)
[2025-05-27] MEDS: Enoxaparin 40 MG/0.4 ML SYR SC (07:44)
[2025-05-27] MEDS: Normal Saline Flush 10 ML SYR IVP ×4 (07:45→22:44)
[2025-05-27] MEDS: Mometasone 220 MCG 14 DOSE INHALER 1 PUFF IH (07:59)
[2025-05-27 08:10] VITALS: BP 145/57; PULSE 69; RESP 17; TEMP 36.4; O2SAT 98
--- NOTE | 2025-05-27 09:04 | PDOC.CMDIS ---
Date of service: 05/27/25 Time of Service: 09:10 LACE Index Scoring Tool Questions: Length of Stay (in days): 7 - 13 Was the patient admitted via the E.D.?: Yes Comorbidities: Congestive Heart Failure E.D. Visits: 7 Answers: Total Score: 14 Risk of Readmission: High Risk Care Management Discharge Plan Reason for Hospitalization: CHF exacerbation, acute Hypoxic resp failure Discharge Plan: Francie will be discharged to [facility] today. Per [facility] her medicaid will be billed primary. She may benefit from services following SNF discharge. It is recommended she follow up with her community providers and continue per her discharge plan of care. She will transport via [facility] private ride as coordinated by CM. [facility] was notified of estimated arrival time and mode of transportation. Patient/Family Education Needs: Review of discharge instruction, activity, limitation, and plan of care. Discuss ask me three. SDOH Health Related Social Needs: Health related social needs daily activities lonely/isolated Health related social needs details patient would like to discuss options with case management. Health related social needs details: patient would like to discuss options with case management. Referrals and interventions: case management assistance requested
--- NOTE | 2025-05-27 09:47 | CMPROGNOTE_ITS ---
Date of service: 05/27/25 Time of Service: 14:09 Care Management Progress Note Progress Note Text Progress Note Text: At the time of the CM's visit, Francie was observed ambulating independently in her room with the use of a walker. She has been accepted to [facility] for short-term rehabilitation under her Medicaid benefit. Discharge to this facility is anticipated once she is deemed medically stable. Per report, Francie will continue to receive antibiotics, as her leg condition has not yet shown improvement. CM will continue to follow. Discharge Potential Discharge Needs: PCP F/U Appt Anticipated Barriers to Discharge: None Identified Patient/Family Education Needs: Review discharge instructions, discuss Ask Me Three Transportation: [facility] Transportation: Private vechicle Plan: Anticipate Francie will transfer to SNF pending prior auth vs return home with new orders for HH RN, PT, OT, SAP INTEGRATION ARCHITECT, once medically cleared. She will transport via private vehicle by a friend. She will follow up with her PCP and discharge plan of care. Social Determinants of Health Screening Social Determinants of health last assessed in clinic: 05/27/25 Will the Patient Participate in the Screening?: Yes Do you worry about having a steady place to live?: no Problems where you live: no known problems In the past 12 months, have you had to go without electric, gas, oil or water in your home?: no 1. Within the past 12 months, we worried whether our food would run out before we got money to buy more.: Don't know/refused 2. Within the past 12 months, the food we bought just didn't last and we didn't have money to get more.: Don't know/refused Has lack of transportation kept you from medical appointments or from doing things needed for daily living?: no Has anyone in your life made you feel unsafe or unsupported?: choose not to answer How hard is it for you to pay for the very basics like food, housing, medical care, and heating? Would you say it is:: Not hard at all Do you want help finding or keeping work or a job?: I do not need or want help If for any reason you need help with day-to-day activities such as bathing, preparing meals, shopping, managing finances, etc., do you get the help you need?: I could use a little more help How often do you feel lonely or isolated from those around you?: Sometimes Do you speak a language other than Cambodian at home?: No Comments: patient feels she would benefit from having some home health assistance with dressing changes. Health Related Social Needs Health related social needs: problems with daily activities (Z73.9) and feeling lonely/isolated (Z60.8) Health related social needs details: patient would like to discuss options with case management.
[2025-05-27] MEDS: CEFEPIME 2 GM in Normal Saline 100 ML IVPB ×2 (10:55→22:44)
[2025-05-27] MEDS: Magnesium Oxide 400 MG TAB PO (11:01)
[2025-05-27 11:27] VITALS: BP 132/55; PULSE 73; RESP 17; TEMP 36.9; O2SAT 97
[2025-05-27] MEDS: Collagenase 30 GM TUBE TP (12:09)
[2025-05-27] MEDS: VANCOMYCIN/WATER (PEG) 1.75 GM/350 ML BAG IVPB (12:20)
--- NOTE | 2025-05-27 13:04 | PT.INTREAT ---
PT Notes Visit Reasons: CHF Exacerbation, Acute Hypoxic Resp Failure Date: 05/27/2025 PRECAUTIONS: Fall, contact precautions. Activity as tolerated. PATIENT NOT ABLE TO LEAVE ROOM. SUBJECTIVE: Pt in recliner when approached for PT session OBJECTIVE: ?BLE swelling, weeping edema RLE with yellow serous dranage ? PAIN: 3-5 BLE R>L LE VITALS: Closely monitored by nursing Therapeutic Activities 21188: Direct one-on-one instruction in dynamic activities to improve functional performance. ?? BED MOBILITY/TRANSFERS? Rolling L/R:Independent Supine-sit: ?Independent? Sit-supine: ? supervision? Sit-stand: ?supervision? Stand-sit: ??supervision? Bed-Chair: supervision ?with FWW ? Chair-bed: supervision with FWW Provided skilled cues and instruction on performance and technique throughout. Ambulation? Assistive Device: ?FWW? Weight bearing: FWB Assist: ? SBA? Distance:?? 100 feet in room door to window x 5 ? Deviation: ? slow thomas, short stride, low step height, WBOS . ? Therapeutic Exercises 63588: Direct one-on-one instruction in therapeutic exercises to develop strength, endurance, range of motion and flexibility. Exercises ? ? ? standing march 10x with bilat UE support to FWW sit-stand x 10 standing hip AB, CGA and bilat UE support to FWW standing shoulder flexion, CGA 10x Standing Heel to toe raise [id number] Seated LAQ [id number] Seated SAQ [id number] Seated hop abduction [id number] Seated SLR [id number]? Provided skilled instruction in proper exercise performance Provided skilled manual cues to facilitate proper muscle recruitment and/or form: ASSESSMENT:?Pt unable to leave room d/t infection precautions. Pt able to ambulate within room with FWW with Supervision. She requires cues for full ROM with exercises. Pt now on IV Antibiotics for cellulitis RLE. Pt with increased edema and erythema as compared to evaluation. MD and RN Ashanti lee. Line of demarcation in place on distal thigh and proximal tibia RLE. Pt has been accepted at [facility] for STR when medically appropriate for d/c. PLAN: Continue with balance training, global strengthening and general conditioning for improved safety, mobility and activity tolerance until pt is ready for DC. TREATMENT CODE/TIME: 20737e4, 66356v7 / [id number]
[2025-05-27] MEDS: Milk of Magnesia 30 ML CUP PO (15:17)
[2025-05-27] MEDS: Acetaminophen 500 MG TAB 1000 MG PO ×2 (15:17→20:21)
[2025-05-27 15:24] VITALS: BP 135/63; PULSE 82; RESP 17; TEMP 37; O2SAT 98
--- NOTE | 2025-05-27 19:13 | W.PM.PROGNOT ---
Date of Service Date of service: 05/27/25 Time of Service: 19:13 Assessment and Plan Assessment and plan (1) Acute exacerbation of CHF (congestive heart failure): Status: Resolved Assessment and plan: -patient presented with elevated BP, hypoxia, and signs of pulmonary edema on CXR, admitted for diuresis. -associated respiratory failure resolved as of 05/24 -last TTE on 04/19 showed EF 65%, normal wall motion, and dilated left atria She is hemodynamically stable with persistent lower extremity edema, multifactorial. She is encouraged to ambulate and elevate. Anticipate discharge to rehab or to home with home health when her legs have improved. (2) Cellulitis of leg, right: Status: Resolved Assessment and plan: -diagnosed during previous hospitalization -course of PO doxy and amoxicillin stopped 05/26 -05/27 significantly worse, resumed cefepime and vanco until imrpoving again. Get MRI for deep infection, osteo, abscess and podiatry consult. (3) Chronic ulcer of right leg: Status: Chronic Assessment and plan: -as noted above - Will continue wound care with Santyl and dressings - Compression with north bandages, no Unna boot with concern for infection. MRI as above. Also consider TBIs for PAD component (4) Cryoglobulinemic glomerulonephritis: Status: Chronic Assessment and plan: -Not Lupus Nephritis. Recent diagnosed s/p biopsy, treated with prednisone. -Renal function improving since previous admission -continue prednisone pending plan from Dr. Rolle from [facility] nephrology at decreased dose of 30mg daily -Continue PJP prophylaxis with 3xWeek TMP/SMX as well unitl off steroids, monitor potassium, no change (5) Microcytic anemia: Status: Chronic Assessment and plan: -chronic, a/w SLE follow. (6) Lupus (systemic lupus erythematosus): Assessment and plan: -This has been stable on hydroxycholoroquine. -Case reviewed with [facility] rheumatology fellow. No change in management. (7) On deep vein thrombosis (DVT) prophylaxis: Status: Chronic Assessment and plan: -u/s negative for VTE, on exoxaparin for prophylaxis -Known hypercoagulable state, but had hemorrhagic pericardial effusion while on full anticoagulation with warfarin. (8) Encephalopathy: Status: Resolved Assessment and plan: -secondary to ambien given overnight 05/20 -patient was hallucinating and unable to follow commands, has resolved. -added to allergy list Subjective Subjective Patient reports: voiding w/o difficulty; denies vomiting, shortness of breath or fever Interval history since last seen: Amox/clav and doxycycline discontinued 05/26 Called by RN this morning, concern that would worse, lots of discharge, redness tracking up leg. Patient confirms leg feels more painful and swollen today after it had been improving. Appetite not good today. Exam Narrative Exam Narrative: General: This is an obese, chronically ill-appearing woman in no acute distress CV: RRR, 2/6 murmur Resp: CTAB, nl effort. Abd: soft, NTND EXT: Skin tears on right anterior lower leg, draining/bruised. Ulcer on right side wet, with white base. Redness tracking up past knee, slight streaking into medial thigh. 2-3+ kylah pitting edema Neuro: awake, alert, no focal deficits Objective Last Vital Signs Temp 37.0 C 05/27/25 15:24 Pulse 82 05/27/25 15:24 Resp 17 05/27/25 15:24 BP 135/63 05/27/25 15:24 Pulse Ox 98 05/27/25 15:24 Laboratory Results - last 24 hr 05/27/25 06:32 WBC 13.09 H RBC 3.35 L Hgb 9.1 L Hct 28.6 L MCV 85 MCH 27.2 MCHC 31.8 L RDW 16.4 H Plt Count 309 MPV 10.0 Immature Gran % 1.5 Neutrophils % 79.9 Lymphocytes % 9.3 Monocytes % 8.6 Eosinophils % 0.5 Basophils % 0.2 Nucleated RBC % 0.0 Absolute Neutrophils 10.46 H Absolute Lymphocytes 1.22 Absolute Monocytes 1.13 H Absolute Eosinophils 0.07 Absolute Basophils 0.03 Sodium 142 Potassium 3.5 Chloride 103 Carbon Dioxide 30.5 Anion Gap 8.5 BUN 29 H Creatinine 1.1 H Est GFR (CKD-EPI 2020) 56.46 Glucose 93 Calcium 7.2 L Magnesium 2.1 Total Bilirubin 0.4 AST 15 ALT 15 Alkaline Phosphatase 115 Total Protein 5.4 L Albumin 2.4 L Time Spent with Patient Time Spent with Patient: 35-49 minutes Time was spent: preparing to see the patient(eg.review tests), obtaining and/or reviewing separately otained hiistory, ordering medications,tests, procedures, referring, communicating with other health health care analyst, indepentently interpreting results, counseling the patient and care coordination
[2025-05-27 19:44] LABS: Vancomycin, Random 24.2 ug/mL
[2025-05-27 20:00] VITALS: BP 149/73; PULSE 71; RESP 16; TEMP 36.6; O2SAT 98
[2025-05-27] MEDS: Melatonin 3 MG TAB 9 MG PO (20:21)
[2025-05-27] MEDS: Simvastatin 40 MG TAB PO (20:21)
[2025-05-27] MEDS: Pramipexole 0.25 MG TAB 0.125 MG PO (20:22)
[2025-05-27 23:30] VITALS: BP 131/52; PULSE 66; RESP 15; TEMP 36.8; O2SAT 98
[2025-05-28 03:07] VITALS: BP 127/49; PULSE 61; RESP 15; TEMP 35.7; O2SAT 98
[2025-05-28] MEDS: oxyCODONE 5 MG TAB PO ×3 (04:27→19:53)
[2025-05-28] MEDS: Acetaminophen 500 MG TAB 1000 MG PO ×3 (04:27→18:26)
[2025-05-28] MEDS: Levothyroxine 150 MCG TAB PO (06:23)
--- NOTE | 2025-05-28 07:00 | DI.MRI_ITS ---
Exam(s) MR LOWER EXTREMITY RT WO/W EXAM: MR LOWER EXTREMITY RT WO/W CLINICAL HISTORY: infection around deep ulcer right lateral ankle. TECHNIQUE: Multiplanar multisequence MRI of the right lower leg was performed. CONTRAST MATERIAL: IV Contrast: 17 mL of Dotarem contrast administered. COMPARISON: CR XR TIB/FIB RT from 04/04/2025 FINDINGS: BONES/JOINTS: No fracture or contusion pattern. No bone lesions identified. There is normal marrow signal. No findings to suggest osteomyelitis are seen. MUSCULOTENDINOUS STRUCTURES: There is very mild edema seen in the peroneus muscles. There is otherwise normal signal present. No muscular fatty atrophy. SOFT TISSUES: There is a soft tissue defect at the lateral aspect of the lower leg 7.5 cm above the talar dome. This would be consistent with the patient's known soft tissue ulcer. There is diffuse edema in the soft tissues of the lower leg. There is diffuse skin thickening noted. The findings are consistent with cellulitis. There is a small focal fluid collection in the subcutaneous tissues superficial to the peroneus muscles (series 30924, image 23 and 24). It measures 3 x 19 mm. This may represent a small abscess. It is deep to the ulceration. OTHER FINDINGS: None. IMPRESSION: 1. There is an area of ulceration in the lateral lower leg. There is a small abscess in the subcutaneous tissues deep to the ulcer. 2. Left lower extremity cellulitis. 3. No evidence of osteomyelitis. DATA REPOSITORY:
[2025-05-28 07:34] LABS: Abs Immature Grans 0.16 10^3/uL (0.0-0.06); HCT 28.2 % (36.0-46.0); HGB 9.0 g/dL (11.2-15.7); Immature Grans % 1.5 %; MCH 27.5 pg (27.0-33.0); MCHC 31.9 % (32.0-36.0); MCV 86 fL (80-95); MPV 10.2 fL (8.0-11.0); Platelet Count 314 10^3/uL (130-400); RBC 3.27 10^6/uL (3.93-5.22); RDW 16.5 % (11.7-14.6); RDW-SD 52.0 fL; WBC 10.64 10^3/uL (4.4-10.8)
[2025-05-28 07:35] VITALS: BP 127/56; PULSE 63; RESP 16; TEMP 36.5; O2SAT 99
[2025-05-28 07:49] LABS: Anion Gap 7.7 mmol/L (3-11); BUN 29 mg/dL (7-18); CO2 30.3 mmol/L (21.0-32.0); Calcium 7.1 mg/dL (8.5-10.1); Chloride 104 mmol/L (98-107); Estimated GFR 56.46 (mL/min/1.73m2); Glucose 92 mg/dL (74-106); Potassium 3.4 mmol/L (3.5-5.1); Sodium 142 mmol/L (136-145)
[2025-05-28 07:51] LABS: C-Reactive Protein 3.57 mg/dL (<or=0.5)
[2025-05-28 07:55] LABS: Vancomycin, Random 15.5 ug/mL
[2025-05-28] MEDS: Mometasone 220 MCG 14 DOSE INHALER 1 PUFF IH (08:27)
[2025-05-28] MEDS: Nystatin 500000 UNITS/5 ML SUSP 5ML CUP PO ×3 (08:57→19:54)
[2025-05-28] MEDS: Enoxaparin 40 MG/0.4 ML SYR SC (08:57)
[2025-05-28] MEDS: Normal Saline Flush 10 ML SYR IVP ×4 (08:57→19:54)
[2025-05-28] MEDS: Sennosides/Docusate Sodium TAB 1 TAB PO ×2 (08:58→19:54)
[2025-05-28] MEDS: Hydroxychloroquine 200 MG TAB PO (08:58)
[2025-05-28] MEDS: Aspirin E.C. 81 MG TABEC PO (08:58)
[2025-05-28] MEDS: Furosemide 40 MG/4 ML VIAL 60 MG IVP (08:58)
[2025-05-28] MEDS: predniSONE 10 MG TAB 30 MG PO (08:58)
[2025-05-28] MEDS: Gabapentin 400 MG CAP PO (08:58)
[2025-05-28] MEDS: Tamsulosin 0.4 MG CAPCR PO (08:58)
--- NOTE | 2025-05-28 08:58 | CMPROGNOTE_ITS ---
Date of service: 05/28/25 Time of Service: 08:59 Care Management Progress Note Progress Note Text Progress Note Text: Francie was sitting up in a chair when CM met with her. She was polite and agreeable to conversation. Francie was scheduled to be discharged yesterday however her leg wound appeared to have gotten worse off antibiotics. She was restarted on IV antibiotics yesterday and, per report, the wound looks much better today. Francie had agreed to go to a SNF for short term rehab prior to returning home, however when a prior authorization was requested from her insurance company, it was denied. CM provided Francie with the phone number to call to appeal the decision and she indicated she would make the call. If/when she does, CM will fax additional clinical information in support of the appeal. Discharge Potential Discharge Needs: PCP F/U Appt Anticipated Barriers to Discharge: Medical Status Patient/Family Education Needs: Review discharge instructions, discuss Ask Me Three Transportation: Private vehicle Plan: Anticipate Francie will transfer to SNF pending prior authorization vs return home with new orders for HH RN, PT, OT, BUSINESS INTEGRATION ANALYST, once medically cleared. She will transport via private vehicle with a friend. She will follow up with her PCP and discharge plan of care. Social Determinants of Health Screening Social Determinants of health last assessed in clinic: 05/28/25 Will the Patient Participate in the Screening?: Yes Do you worry about having a steady place to live?: no Problems where you live: no known problems In the past 12 months, have you had to go without electric, gas, oil or water in your home?: no 1. Within the past 12 months, we worried whether our food would run out before we got money to buy more.: Never true 2. Within the past 12 months, the food we bought just didn't last and we didn't have money to get more.: Never true Has lack of transportation kept you from medical appointments or from doing things needed for daily living?: no Has anyone in your life made you feel unsafe or unsupported?: choose not to answer How hard is it for you to pay for the very basics like food, housing, medical care, and heating? Would you say it is:: Not hard at all Do you want help finding or keeping work or a job?: I do not need or want help If for any reason you need help with day-to-day activities such as bathing, preparing meals, shopping, managing finances, etc., do you get the help you need?: I could use a little more help How often do you feel lonely or isolated from those around you?: Sometimes Do you speak a language other than Swedish at home?: No Comments: patient feels she would benefit from having some home health assistance with dressing changes. Health Related Social Needs Health related social needs: problems with daily activities (Z73.9) and feeling lonely/isolated (Z60.8) Health related social needs details: patient would like to discuss options with case management.
--- NOTE | 2025-05-28 10:20 | PTTR_ITS ---
PT Notes Visit Reasons: CHF Exacerbation, Acute Hypoxic Resp Failure Date: 05/28/2025 PRECAUTIONS: Fall, contact precautions. Activity as tolerated. PATIENT NOT ABLE TO LEAVE ROOM. SUBJECTIVE: Pt in recliner when approached for PT session OBJECTIVE: ?BLE swelling, weeping edema RLE with yellow serous dranage ? PAIN: 3 BLE R>L LE VITALS: Closely monitored by nursing Therapeutic Activities 94416: Direct one-on-one instruction in dynamic activities to improve functional performance. ?? BED MOBILITY/TRANSFERS? Rolling L/R:Independent Supine-sit: ?Independent? Sit-supine: ? supervision? Sit-stand: ?supervision? Stand-sit: ??supervision? Bed-Chair: supervision ?with FWW ? Chair-bed: supervision with FWW Provided skilled cues and instruction on performance and technique throughout. ? Therapeutic Exercises 95370: Direct one-on-one instruction in therapeutic exercises to develop strength, endurance, range of motion and flexibility. Exercises ? ? ? standing march 10x with bilat UE support to FWW sit-stand x 10 standing hip AB, CGA and bilat UE support to FWW standing shoulder flexion, CGA 10x Standing Heel to toe raise [id number] Seated LAQ [id number] Seated SAQ [id number] Seated hop abduction [id number] Seated SLR [id number]? Provided skilled instruction in proper exercise performance Ambulation? Assistive Device: ?FWW? Weight bearing: FWB Assist: ? SBA? Distance:?? 40 feet x 6 rep in room without rest ( door to window and back is 1 rep) ? Deviation: ? slow thomas, short stride, low step height, WBOS . ASSESSMENT:?Pt with less pain this session tolerated Pt now on IV Antibiotics for cellulitis RLE. Pt with less edema and erythema as compared to prior session. Line of demarcation in place on distal thigh and proximal tibia RLE. Pt has been accepted at [facility] for STR when medically appropriate for d/c. PLAN: Continue with balance training, global strengthening and general conditioning for improved safety, mobility and activity tolerance until pt is ready for DC. Discharge Recommendation: Short term SNF vs HHPT TREATMENT CODE/TIME: 20866m8 / [id number]
[2025-05-28] MEDS: Gadoterate meglumine 20 ML SYRINGE IVP (11:06)
[2025-05-28] MEDS: Sulfameth/Trimeth DS TAB 1 TAB PO (11:57)
[2025-05-28] MEDS: Collagenase 30 GM TUBE TP (11:57)
[2025-05-28] MEDS: VANCOMYCIN/WATER (PEG) 1.25 GM/250 ML BAG IV (11:58)
[2025-05-28] MEDS: Magnesium Oxide 400 MG TAB PO (11:58)
--- NOTE | 2025-05-28 13:16 | POCOE_ITS ---
Date of service: 05/28/25 Time of Service: 12:00 Assessment and Plan Assessment and plan (1) Ulcer of right lower extremity with fat layer exposed: Status: Acute (2) Venous ulcer of right leg: Status: Acute (3) GAVIN (acute kidney injury): Status: Acute (4) CHF (congestive heart failure): Status: Chronic (5) Leg wound, right: Status: Acute (6) Chronic wound: Status: Acute Assessment and plan: Patient was seen bedside today. She has a large, necrotic ulcers noted medially and laterally to the right leg. She has skin slough and bruising noted anteriorly. Skin is very thin, shiny, friable. She has resolving erythema noted. Patient is on antibiotics and to continue. I recommend excisional debridement of the wounds. Will plan for this in the OR since she has severe pain and will not be able to tolerate debridement bedside. She will require some level of sedation. Will plan for OR wound debridement. Patient to be admitted n.p.o. midnight. Will require compressive dressings. History of Present Illness Narrative: Patient was seen bedside today. We are consulted for leg ulceration and cellulitis. She reports pain to the ulcers. Ulcers have been present for a while now. Denies any improvement. States off-and-on they get swollen and painful Review of Systems Cardiovascular Comments: Edema noted bilaterally. Integumentary/Breasts Comments: Ulceration to the right leg medial and lateral [facility] All Active Problems (Updated 05/28/25 @ 16:21 by Kassy Zhang DPM) Venous ulcer of right leg (Acute) Ulcer of right lower extremity with fat layer exposed (Acute) Advanced care planning/counseling discussion (Acute) Palliative care encounter (Acute) Demand ischemia (Acute) Flash pulmonary edema (Acute) Chronic ulcer of right leg (Chronic) Cryoglobulinemic glomerulonephritis (Chronic) Pain in right leg (Acute) Microcytic anemia (Chronic) Hyperglycemia, drug-induced (Acute) Hyperkalemia (Acute) Lupus nephritis (Acute) On deep vein thrombosis (DVT) prophylaxis (Chronic) Acute kidney injury superimposed on CKD (Acute) Hematuria (Acute) GAVIN (acute kidney injury) (Acute) Mild peripheral edema (Acute) CHF (congestive heart failure) (Chronic) Cutaneous amyloidosis (Acute) Leg wound, right (Acute) Chronic wound (Acute) Left knee DJD (Chronic) Depo-medrol injection: 02/27/25; 11/28/2024; 08/29/24; 05/30/2024; 02/26/2024; 11/27/2023; 08/17/23 Headache (Acute) Urinary tract infection (Acute) Colovaginal fistula (Acute) Diverticulitis of sigmoid colon (Acute) Trigger thumb of right hand (Acute) Trigger thumb of left hand (Chronic) Cephalgia (Acute 11/20/14) Deviated nasal septum (Acute 06/19/14) Nasal congestion (Acute 06/19/14) Nasal vestibulitis (Acute 11/02/17) Constipation (Chronic) as above HTN (hypertension) (Chronic) GERD (gastroesophageal reflux disease) (Chronic) stable Lupus (Chronic) Amyloidosis (Chronic) Antiphospholipid syndrome (Chronic) Herniated nucleus pulposus, lumbar (Chronic) Medical History Lupus (systemic lupus erythematosus) Hypertension Primary localized cutaneous amyloidosis Cellulitis of right lower limb Lymphocytopenia Normal colonoscopy [place] 11/13/[address]ya Styles at [facility], severe diverticular dz, repeat 10 years. mg Hypocalcemia Asthma Allergic rhinitis Abnormal mammogram of right breast Degenerative joint disease Hyperlipidemia Pericarditis Eczema Chest wall pain Insomnia Sciatica, left side Surgical History 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) History of bone marrow biopsy S/P thyroidectomy H/O: hysterectomy Tonsillectomy Social History Smoking/Tobacco Use Status: Former Tobacco Use Quit Date: 08/14/99 Smoking risk assessment performed?: Yes Alcohol Intake: current Alcohol Intake frequency: a few times a week Alcohol type: beer and wine Drug use: Never Substance use type: does not use Household members: none Housing: house Current gender identity: female Do you feel safe at home: Yes Do you feel safe in your relationship?: Yes Additional Social history: Lives alone, formerly cared for older man who in 2024. 2 cats. no travel. Exam Extrem Other: Right lower extremity physical exam: Derm: Full-thickness ulcers noted to the medial and lateral aspect of the right leg above the level of the malleolus no probe to bone or capsule noted the base is 100% necrotic/fibrotic with heavy slough. There is some drainage noted no malodor no active purulence no crepitus no bogginess no fluctuance noted. Anterior aspect of the right leg there is a large ecchymotic area with some skin slough. Vascular: DP nonpalpable to the right, PT is palpable 2/4 to the right. There is edema and venous skin changes noted to the right. MSK: Pain noted to the right leg. Results Last Vital Signs Temp 97.7 F 05/28/25 07:35 Pulse 63 05/28/25 07:35 Resp 16 05/28/25 07:35 BP 127/56 L 05/28/25 07:35 Pulse Ox 99 05/28/25 07:35 Labs 05/28/25 06:58 05/28/25 06:58 Labs: Laboratory Results - last 24 hr 05/27/25 05/28/25 19:24 06:58 WBC 10.64 RBC 3.27 L Hgb 9.0 L Hct 28.2 L MCV 86 MCH 27.5 MCHC 31.9 L RDW 16.5 H Plt Count 314 MPV 10.2 Immature Gran % 1.5 Neutrophils % 77.6 Lymphocytes % 11.3 Monocytes % 8.6 Eosinophils % 0.7 Basophils % 0.3 Nucleated RBC % 0.0 Absolute Neutrophils 8.27 H Absolute Lymphocytes 1.20 Absolute Monocytes 0.91 H Absolute Eosinophils 0.07 Absolute Basophils 0.03 Sodium 142 Potassium 3.4 L Chloride 104 Carbon Dioxide 30.3 Anion Gap 7.7 BUN 29 H Creatinine 1.1 H Est GFR (CKD-EPI 2020) 56.46 Glucose 92 Calcium 7.1 L C-Reactive Protein 3.57 H Random Vancomycin 24.2 15.5
[2025-05-28 14:04] VITALS: BP 147/66; PULSE 70; RESP 18; TEMP 37.3; O2SAT 97
[2025-05-28] MEDS: CEFEPIME 2 GM in Normal Saline 100 ML IVPB (14:14)
--- NOTE | 2025-05-28 14:19 | PGE_ITS ---
Date of Service Date of service: 05/28/25 Time of Service: 14:20 Assessment and Plan Assessment and plan (1) Acute exacerbation of CHF (congestive heart failure): Status: Resolved Assessment and plan: -patient presented with elevated BP, hypoxia, and signs of pulmonary edema on CXR, admitted for diuresis. -associated respiratory failure resolved as of 05/24, has been hemodynamically stable. -last TTE on 04/19 showed EF 65%, normal wall motion, and dilated left atria -still on IV furosemide BID 60mg, change to oral torsemide at 100mg/day (can hold pre-op). Follow/replace K+/Mg++ -encouraged to ambulate and elevate. Venous stasis and gabapentin also likely contributing to LE edema. (2) Cellulitis of leg, right: Status: Resolved Assessment and plan: -diagnosed during previous hospitalization -course of PO doxy and amoxicillin stopped 05/26 -05/27 significantly worse, resumed cefepime and vanco until imrpoving again. -MRI 05/28 showing subcut abscess, but no osteomyelitis. Podiatry plans I&D 05/29 in OR. NPO at midnight. (3) Chronic ulcer of right leg: Status: Chronic Assessment and plan: -as noted above - Will continue wound care with Santyl and dressings - Compression with north bandages, no Unna boot with concern for infection. MRI as above. Also consider TBIs for PAD component (4) Cryoglobulinemic glomerulonephritis: Status: Chronic Assessment and plan: -Not Lupus Nephritis. Recent diagnosed s/p biopsy, treated with prednisone. -Renal function improved since previous admission -continue prednisone pending plan from Dr. Rolle from [facility] nephrology at decreased dose of 30mg daily. She has been here a week, consider further taper. -Continue PJP prophylaxis with 3xWeek TMP/SMX as well unitl off steroids, monitor potassium. (5) Microcytic anemia: Status: Chronic Assessment and plan: -chronic, a/w SLE, stable. Follow every 2-3 days. (6) Lupus (systemic lupus erythematosus): Assessment and plan: -This has been stable on hydroxycholoroquine. -Case reviewed with [facility] rheumatology fellow early in admission. No change in management. (7) On deep vein thrombosis (DVT) prophylaxis: Status: Chronic Assessment and plan: -u/s negative for VTE, on exoxaparin for prophylaxis -Known hypercoagulable state, but had hemorrhagic pericardial effusion while on full anticoagulation with warfarin. Subjective Subjective Patient reports: tolerating a regular diet and voiding w/o difficulty; denies diarrhea, nausea, vomiting, shortness of breath or fever Interval history since last seen: Events: IV antibiotics resumed for worsening cellulitis Seen by Podiatry, plans full debridement under anesthesia She feels about the same. Feels like redness and pain in the right leg is a little better since going back on antibiotics. Exam Narrative Exam Narrative: General: This is an obese, chronically ill-appearing woman in no acute distress CV: RRR, 2/6 murmur Resp: CTAB, nl effort. Abd: soft, NTND EXT: Skin tears on right anterior lower leg, draining/bruised. Ulcer on lateral lower leg wet, with white base. smaller ulcer on medial aspect dry. Redness tracking up past knee, improved some from 05/27 line with recession of streaking to thigh. 2+ kylah pitting edema Neuro: awake, alert, no focal deficits Objective Last Vital Signs Temp 37.3 C 05/28/25 14:04 Pulse 70 05/28/25 14:04 Resp 18 05/28/25 14:04 BP 147/66 H 05/28/25 14:04 Pulse Ox 97 05/28/25 14:04 Laboratory Results - last 24 hr 05/27/25 05/28/25 19:24 06:58 WBC 10.64 RBC 3.27 L Hgb 9.0 L Hct 28.2 L MCV 86 MCH 27.5 MCHC 31.9 L RDW 16.5 H Plt Count 314 MPV 10.2 Immature Gran % 1.5 Neutrophils % 77.6 Lymphocytes % 11.3 Monocytes % 8.6 Eosinophils % 0.7 Basophils % 0.3 Nucleated RBC % 0.0 Absolute Neutrophils 8.27 H Absolute Lymphocytes 1.20 Absolute Monocytes 0.91 H Absolute Eosinophils 0.07 Absolute Basophils 0.03 Sodium 142 Potassium 3.4 L Chloride 104 Carbon Dioxide 30.3 Anion Gap 7.7 BUN 29 H Creatinine 1.1 H Est GFR (CKD-EPI 2020) 56.46 Glucose 92 Calcium 7.1 L C-Reactive Protein 3.57 H Random Vancomycin 24.2 15.5 Time Spent with Patient Time Spent with Patient: 35-49 minutes Time was spent: preparing to see the patient(eg.review tests), obtaining and/or reviewing separately otained hiistory, ordering medications,tests, procedures, referring, communicating with other health certified social workers in health care, indepentently interpreting results, counseling the patient and care coordination
--- NOTE | 2025-05-28 14:25 | CHAPLAIN ---
I visited with Francie yesterday. She was happy to tell me that her neighbor is going to take care of her cats while she's here. She was disappointed to find out she's not being discharged today. Francie is in the process of selling her house. Her partner earlier this year. Francie will be moving to a mobile home in [place] when her house sells. Francie said she's been craving a root beer and KitKat bar, so I dropped some off today for her.
[2025-05-28] MEDS: Potassium Chloride 20 MEQ TABCR 40 MEQ PO (15:13)
[2025-05-28 15:19] VITALS: BP 127/85; PULSE 66; RESP 16; TEMP 36.6; O2SAT 98
[2025-05-28 19:35] VITALS: BP 131/60; PULSE 65; RESP 14; TEMP 36.8; O2SAT 98
[2025-05-28] MEDS: Gabapentin 300 MG CAP PO (19:53)
[2025-05-28] MEDS: Simvastatin 40 MG TAB PO (19:54)
[2025-05-28] MEDS: Melatonin 3 MG TAB 9 MG PO (19:54)
[2025-05-28] MEDS: Pramipexole 0.25 MG TAB 0.125 MG PO (19:54)
[2025-05-28 23:00] VITALS: BP 133/59; PULSE 65; RESP 14; TEMP 35.5; O2SAT 98
[2025-05-29] VITALS (27 sets, daily range): BP systolic 119–168; BP diastolic 49–77; PULSE 57–69; RESP 10–22; TEMP 35.8–37; O2SAT 89–100; BMI 30.5
[2025-05-29] MEDS: oxyCODONE 5 MG TAB PO ×5 (00:44→20:21)
[2025-05-29] MEDS: Acetaminophen 500 MG TAB 1000 MG PO ×2 (00:44→15:42)
[2025-05-29] MEDS: CEFEPIME 2 GM in Normal Saline 100 ML IVPB ×2 (02:55→14:34)
[2025-05-29] MEDS: Normal Saline Flush 10 ML SYR IVP ×3 (02:55→20:24)
[2025-05-29 07:18] LABS: Anion Gap 8.5 mmol/L (3-11); BUN 24 mg/dL (7-18); CO2 29.5 mmol/L (21.0-32.0); Calcium 7.2 mg/dL (8.5-10.1); Chloride 105 mmol/L (98-107); Estimated GFR 63.30 (mL/min/1.73m2); Glucose 80 mg/dL (74-106); Magnesium 2.2 mg/dL (1.8-2.4); Potassium 3.9 mmol/L (3.5-5.1); Sodium 143 mmol/L (136-145)
[2025-05-29 07:23] LABS: Vancomycin, Random 17.1 ug/mL
[2025-05-29] MEDS: Levothyroxine 150 MCG TAB PO (07:55)
--- NOTE | 2025-05-29 07:56 | ANES.PREOP_ITS ---
General Info Date of Service Date Performed: 05/29/25 Height: 5 ft 5 in Weight: 83.3 kg Body Mass Index (BMI): 30.5 Surgical Procedure: Operation Date: 05/29/25 08:55 Proposed Procedure Side Surgeon p Debridement of Wound Kassy Zhang DPM Meds Allergies and Home Medications Allergies Allergy/AdvReac Type Severity Reaction Status Date / Time zolpidem (From Ambien) AdvReac Severe Other (See Verified 05/21/25 15:59 Comment) morphine AdvReac Dizziness/L Verified 05/20/25 13:24 [place] Home Medication ?Medication ?Instructions ?Recorded hydroxychloroquine 200 mg tablet 200 mg PO DAILY #30 t ab-caps 11/16/16 albuterol sulfate 90 mcg/actuation 2 puff inhalation Q 6H PRN 10/04/18 aerosol inhaler (ProAir HFA) shortness of breath calcium carbonate (Oyster Shell 500 mg PO DAILY Calcium) acetaminophen 500 mg tablet 1,000 mg (2 x 500 mg) PO Q 8H PRN 07/17/19 pain #90 tabs aspirin 81 mg tablet,delayed 81 mg PO DAILY 05/08/20 release gabapentin 400 mg capsule 400 mg PO BID 05/20/24 amlodipine 2.5 mg tablet 2.5 mg PO DAILY 01/31/25 pramipexole 0.125 mg tablet 0.25 mg PO QPM 04/18/25 cholecalciferol (vitamin D3) 1,250 1,250 mcg PO .COMPL EX 05/15/25 mcg (50,000 unit) capsule fluticasone furoate 100 1 inh inhalation DAILY 05/15 mcg/actuation blister powder for inhalation (Arnuity Ellipta) labetalol 100 mg tablet 100 mg PO DAILY 05/15/25 levothyroxine 150 mcg tablet 150 mcg PO DAILY 05/15/25 magnesium oxide 500 mg PO DAILY 05/15/25 prednisone 20 mg tablet 40 mg PO DAILY 05/15/25 simvastatin 40 mg tablet 40 mg PO DAILY 05/15/25 sulfamethoxazole 800 1 tab PO .COMPLEX 05/15/25 mg-trimethoprim 160 mg tablet amoxicillin 875 mg tablet 875 mg PO BID #14 tabs 05/19 doxycycline hyclate 100 mg capsule 100 mg PO BID #14 c aps 05/19/25 prednisone 10 mg tablet 30 mg (3 x 10 mg) PO DAILY # 120 05/19/25 tabs Current Visit Medications: Current Medications Generic Name Dose Route Start Last Admin Trade Name Freq PRN Reason Stop Dose Admin Acetaminophen 1,000 mg 05/27/25 14:48 05/29/25 00:44 Acetaminophen 500 Mg Tab PO 1,000 mg Q6H PRN PRN Administration Albuterol Sulfate 2 puff 05/20/25 11:24 Albuterol Hfa 8 Gm 60 Puff Inh IH Q6H PRN PRN Shortness of Breath Aspirin 81 mg 05/21/25 08:30 05/28/25 08:58 Aspirin E.C. 81 Mg Tabec PO 81 mg DAILY WILLIE Administration Collagenase 30 gm 05/21/25 08:30 05/28/25 11:57 Collagenase 30 Gm Tube TP 1 applic DAILY WILLIE Administration Enoxaparin Sodium 40 mg 05/21/25 08:30 05/28/25 08:57 Enoxaparin 40 Mg/0.4 Ml Syr SC 40 mg DAILY WILLIE Administration Gabapentin 300 mg 05/28/25 20:00 05/28/25 19:53 Gabapentin 300 Mg Cap PO 300 mg BID WILLIE Administration Gadoterate Meglumine 20 ml 05/28/25 11:15 05/28/25 11:06 Gadoterate Meglumine 20 Ml Syringe IVP 06/27/25 23:59 17 ml DIRECTED WILLIE Administration Hydroxychloroquine Sulfate 200 mg 05/21/25 08:30 05/28/25 08:58 Hydroxychloroquine 200 Mg Tab PO 200 mg DAILY WILLIE Administration Vancomycin/PEG/NADA/Lysine/Water 1.25 gm in 250 mls @ 166.667 mls/hr 05/28/25 12:00 05/28/25 13:54 Vancocin Injection IV Infused Q24H WILLIE Infusion Cefepime HCl 2 gm/ Sodium 100 mls @ 200 mls/hr 05/28/25 14:00 05/29/25 03:55 Chloride IVPB Infused Q12H WILLIE Infusion IV Miscellaneous Supplies 1 each 05/21/25 09:15 Iv Access IV DIRECTED WILLIE Levothyroxine Sodium 150 mcg 05/21/25 06:00 05/28/25 06:23 Levothyroxine 150 Mcg Tab PO 150 mcg DAILY@0600 WILLIE Administration Magnesium Hydroxide 30 ml 05/27/25 14:48 05/27/25 15:17 Milk Of Magnesia 30 Ml Cup PO 30 ml DAILY PRN PRN Administration Magnesium Oxide 400 mg 05/20/25 12:00 05/28/25 11:58 Magnesium Oxide 400 Mg Tab PO 400 mg DAILY@1200 WILLIE Administration Melatonin 9 mg 05/21/25 20:00 05/28/25 19:54 Melatonin 3 Mg Tab PO 9 mg HS WILLIE Administration Mometasone Furoate 1 puff 05/21/25 08:30 05/28/25 08:27 Mometasone 220 Mcg 14 Dose Inhaler IH 1 puff DAILY WILLIE Administration Nystatin 500,000 units 05/22/25 17:00 05/28/25 19:54 Nystatin 332848 Units/5 Ml Susp 5ml Cup PO 500,000 units TID WILLIE Administration Oxycodone HCl 5 mg 05/20/25 11:50 05/29/25 00:44 Oxycodone 5 Mg Tab PO 5 mg Q4H PRN PRN Administration Polyethylene Glycol 17 gm 05/20/25 11:24 Polyethylene Glycol 3350 17 Gm Packet PO DAILY PRN PRN Constipation Pramipexole Dihydrochloride 0.125 mg 05/20/25 20:00 05/28/25 19:54 Pramipexole 0.25 Mg Tab PO 0.125 mg QPM WILLIE Administration Prednisone 30 mg 05/21/25 08:30 05/28/25 08:58 Prednisone 10 Mg Tab PO 30 mg DAILY WILLIE Administration Senna/Docusate Sodium 1 tab 05/23/25 20:00 05/28/25 19:54 Sennosides/Docusate Sodium Tab PO 1 tab BID WILLIE Administration Simvastatin 40 mg 05/20/25 20:00 05/28/25 19:54 Simvastatin 40 Mg Tab PO 40 mg HS WILLIE Administration Sodium Chloride 0 ml 05/20/25 07:13 05/28/25 14:14 Normal Saline Flush 10 Ml Syr IVP 20 ml PRN PRN Administration Sodium Chloride 0 ml 05/20/25 08:30 05/28/25 19:54 Normal Saline Flush 10 Ml Syr IVP 30 ml BID WILLIE Administration Sodium Chloride 0 ml 05/20/25 07:13 Normal Saline 10 Ml Vial IJ DIRECTED PRN Sodium Chloride 0 ml 05/28/25 11:06 05/29/25 02:55 Normal Saline Flush 10 Ml Syr IVP 40 ml PRN PRN Administration Tamsulosin HCl 0.4 mg 05/25/25 08:30 05/28/25 08:58 Tamsulosin 0.4 Mg Capcr PO 0.4 mg DAILY WILLIE Administration Torsemide 100 mg 05/29/25 08:30 Torsemide 100 Mg Tab PO DAILY WILLIE Trimethoprim/Sulfamethoxazole 1 tab 05/23/25 10:00 05/28/25 11:57 Sulfameth/Trimeth Ds Tab PO 1 tab MoWeFr WILLIE Administration PFSH Active Problems Active Problems: Problem Status Onset Code Venous ulcer of right leg Acute I83.019, L97.919 Ulcer of right lower extremity with fat layer exposed Acute L97.912 Advanced care planning/counseling discussion Acute Z71.89 Palliative care encounter Acute Z51.5 Encephalopathy Resolved G93.40 Demand ischemia Acute I24.89 Flash pulmonary edema Acute J81.0 Acute hypoxemic respiratory failure Resolved J96.01 Chronic ulcer of right leg Chronic L97.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, 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 Pain in right leg Acute M79.604 Microcytic anemia Chronic D50.9 Hyperglycemia, drug-induced Acute R73.9, T50.905A Hyperkalemia Acute E87.5 Lupus nephritis Acute On deep vein thrombosis (DVT) prophylaxis Chronic Z79.899 Acute exacerbation of CHF (congestive heart failure) Resolved I50.9 Acute kidney injury superimposed on CKD Acute N17.9, N18.9 Hematuria Acute R31.9 GAVIN (acute kidney injury) Acute N17.9 Mild peripheral edema Acute R60.0 CHF (congestive heart failure) Chronic I50.9 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, L99 Leg wound, right Acute S81.801A Chronic wound Acute T14.8XXA 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 Headache Acute R51.9 Urinary tract infection Acute N39.0 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 Diverticulitis of sigmoid colon Acute K57.32 Amyloidosis Chronic Herniated nucleus pulposus, lumbar Chronic M51.26 Antiphospholipid syndrome Chronic Trigger thumb of right hand Acute M65.311 Trigger thumb of left hand Chronic M65.312 Nasal vestibulitis Acute 11/02/17 J34.89 Nasal congestion Acute 06/19/14 R09.81 Deviated nasal septum Acute 06/19/14 J34.2 Cephalgia Acute 11/20/14 R51 Constipation Chronic HTN (hypertension) Chronic GERD (gastroesophageal reflux disease) Chronic Diverticulitis of sigmoid colon Resolved Lupus Chronic Medical History Medical History Lupus (systemic lupus erythematosus) Hypertension Primary localized cutaneous amyloidosis Cellulitis of right lower limb Lymphocytopenia Normal colonoscopy [place] 11/13/[address] Natalya Styles at [facility], severe diverticular dz, repeat 10 years. mg Hypocalcemia Asthma Allergic rhinitis Abnormal mammogram of right breast Degenerative joint disease Hyperlipidemia Pericarditis Eczema Chest wall pain Insomnia Sciatica, left side Surgical History Surgical History 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) History of bone marrow biopsy S/P thyroidectomy H/O: hysterectomy Tonsillectomy Tobacco Smoking/Tobacco Use Status: Former Tobacco Use Alcohol Alcohol Intake: current Alcohol intake frequency: a few times a week Alcohol type: beer and wine Substance Use Substance use: Never Substance use type: does not use Vital Signs and Lab Results Vital Signs Most Recent Vital Signs in EMR: Most Recent Vital Signs Temp Pulse Resp BP Pulse Ox 36.6 C 63 14 129/62 99 05/29/25 05:29 05/29/25 05:29 05/29/25 05:29 05/29/25 05:29 05/29/25 05:29 Lab Results 05/28/25 06:58 05/29/25 06:18 Blood Type / Crossmatch: 2 Antibody Screen NEGATIVE 05/17/25 Crossmatch See Detail 05/17/25 Complete Blood Count: 2 WBC, (4.4-10.8) 10.64 10^3/uL 05/28/25, 06:58 RBC, (3.93-5.22) 3.27 10^6/uL L 05/28/25, 06:58 Hgb, (11.2-15.7) 9.0 g/dL L 05/28/25, 06:58 Hct, (36.0-46.0) 28.2 % L 05/28/25, 06:58 Plt Count, (130-400) 314 10^3/uL 05/28/25, 06:58 VBG Lactate, (<or=2.0) 2.8 mmol/L H* 05/16/25, 16:50 Complete Metabolic Panel: 2 Sodium, (136-145) 143 mmol/L Today, 06:18 Potassium, (3.5-5.1) 3.9 mmol/L Today, 06:18 Chloride, (98-107) 105 mmol/L Today, 06:18 Carbon Dioxide, (21.0-32.0) 29.5 mmol/L Today, 06:18 BUN, (7-18) 24 mg/dL H Today, 06:18 Creatinine, (0.55-1.02) 1.0 mg/dL Today, 06:18 Est GFR (CKD-EPI 2020), (mL/min/1.73m2) 63.30 Today, 06:18 Magnesium, (1.8-2.4) 2.2 mg/dL Today, 06:18 Calcium, (8.5-10.1) 7.2 mg/dL L Today, 06:18 Albumin, (3.4-5.0) 2.4 g/dL L 05/27/25, 06:32 Glucose, (74-106) 80 mg/dL Today, 06:18 C-Reactive Protein, (<or=0.5) 3.57 mg/dL H 05/28/25, 06:58 Liver Function Panel: 2 ALT, (14-59) 15 U/L 05/27/25, 06:32 AST, (15-37) 15 U/L 05/27/25, 06:32 Coagulation Panel: 2 INR, (0.9-1.1) 1.1 05/20/25, 07:58 PT, (9.1-11.1) 11.3 sec H 05/20/25, 07:58 APTT, (20.6-30.2) 26.8 sec 05/16/25, 05:26 Cardiac Panel: 2 Troponin I, (<or=51) 83 ng/L H* 05/22/25 NT-Pro-B Natriuret Pep, (<300) > 36978 pg/mL H 05/20/25 Arterial Blood Gas: 2 ABG Sample Site Right Radial 05/16/25, 01:25 ABG pH, (7.35-7.45) 7.41 05/16/25, 01:25 ABG pO2, (80-105) 117 mmHg H 05/16/25, 01:25 ABG pCO2, (35-45) 30 mmHg L 05/16/25, 01:25 ABG O2 Saturation, (95-98) % 05/16/25, 01: 25 ABG HCO3, (22-26) 19 mmol/L L 05/16/25, 01:25 ABG Base Excess, (-2-3) -6 mmol/L L 05/16/25, 01:25 ABG Total CO2, (23-27) 18 mmol/L L 05/16/25, 01:25 Venous Blood Gas: 2 VBG pH, (7.31-7.41) 7.42 H 05/20/25, 07:58 VBG pO2 41 mmHg 05/20/25, 07:58 VBG pCO2, (41-51) 31 mmHg L 05/20/25, 07:58 VBG O2 Saturation 74 % 05/20/25, 07:58 VBG HCO3, (23-28) 20 mmol/L L 05/20/25, 07:58 VBG Base Excess, (-2-3) -4 mmol/L L 05/20/25, 07:58 VBG Total CO2, (24-29) 19 mmol/L L 05/20/25, 07:58 Infectious Disease: 2 SARS-CoV-2 (PCR), (Negative) Negative 05/20/25, 0 8:46 COVID-19 Source Nasopharynx 05/20/25, 08:46 Influenza Type A (PCR), (Negative) Negative 05/20, 08:46 Influenza Type B (PCR), (Negative) Negative 05/20, 08:46 RSV (PCR), (Negative) Negative 05/20/25, 08:46 Imaging and Studies Imaging and Studies Study information below may be from another EMR and interpreted by another provider. Please see original notes in EMR for more complete details. EKG Summary: 04/18/25: Exam: Resting ECG Reason for Exam: dyspnea Patient Location: E HR:71 bpm ECG Measurements Heart Rate 71 AXIS MA 143 P 38 QRSd 99 QRS -18 QT 428 T-20 QTc 466 Conclusion Sinus rhythm...normal P axis, V-rate 60- 99 Inferior infarct, old...Q >35mS, II III aVF I have reviewed and I agree with the emergency room physician's ECG interpretation. Stress Test Summary: 12/14/16: Impressions: Normal study after maximal exercise. Summary: 1. Myocardial perfusion imaging: No myocardial perfusion defects noted. 2. The calculated left ventricular ejection fraction after stress: 59%. LV global systolic function is normal. No left ventricular regional motion abnormality. 3. Stress ECG conclusions: The stress ECG is negative. Urena treadmill score: 6. This score predicts a low risk of cardiac events. 4. Stress: The target heart rate was achieved. There is a normal resting blood pressure. The patient experienced no chest pain during stress. Exercise capacity is above normal for age. Echocardiogram Summary: 04/18/25: Conclusion Normal left ventricular wall thickness and chamber size. Ejection fraction is 65%. Wall motion is normal Normal right ventricular size and function Moderately dilated left atrium. Normal right atrial size The aortic valve is trileaflet and mildly sclerotic with trace regurgitation Mild mitral and tricuspid regurgitation Estimated right ventricular systolic pressure is 50 mmHg Mildly dilated ascending aorta 3.78 cm Pulmonary Function Summary: 04/14/23: Pulmonary Function Test Result Indications: Centromere antibody positive Interpretation Spirometry: No airflow limitation. Low FVC. No significant bronchodilator response. Lung Volumes: Normal lung volumes. Diffusion Capacity: Normal diffusion. Airway Pressure: Normal airways resistance. Impression Normal pulmonary function. Low FVC likely pseudo-restriction from obesity. Clinical Correlation therefore is recommended. Anesthesia Assessment and Plan Anesthesia History Personal History: No History of Anesthesia Complications Family History: No Family History of Anesthesia Complications Exercise Tolerance Exercise Tolerance: Metabolic Equivalents>4 Cardiac & Pulmonary Exam Cardiac Exam: Normal S1/S2 Heart Sounds Pulmonary Exam: Clear Bilateral Breath Sounds Implantable Cardiac Device Does patient have a Pacemaker or an ICD?: No Airway Exam Known Difficult Airway: No Mallampati Class: 2 Mouth Opening: Normal (> 3cm) Thyromental Distance: Greater than 3 cm Neck Range of Motion: Full ROM Neck Circumference: Normal Teeth Condition: Removable Dentures/Plates Upper and Removable Dentures/Plates Lower ASA Classification ASA Score: ASA 3 Emergency Case?: No NPO Status NPO Status: NPO Clears >2 hours, Solids >8 hours Anesthesia Plan Resuscitation Status: Full Code Anesthesia Technique: General Anesthesia Airway Planned: Natural Airway Monitors Used: Standard Monitors
[2025-05-29] MEDS: Nystatin 500000 UNITS/5 ML SUSP 5ML CUP PO ×3 (07:58→20:20)
[2025-05-29] MEDS: Lactated Ringers 1,000 ML 80 ML IV (09:30)
--- NOTE | 2025-05-29 10:10 | PDOC.CMPRO ---
Date of service: 05/29/25 Time of Service: 13:32 Care Management Progress Note Progress Note Text Progress Note Text: Francie was observed lying in bed and awake at the time of the caser shoe parts?s visit. Per report, an abscess was identified via MRI and was subsequently surgically drained. Per report, a second surgical intervention is scheduled for Monday, with discharge to a [facility] anticipated on Monday. Per the SNF, prior authorization for admission was denied; however, the facility is still willing to accept Francie under her Medicaid benefit. The patient has been informed of her right to appeal the prior authorization decision and was provided with the necessary information to do so; Francie states that she did contact her insurance. Francie reported her current pain level as 2.5 out of 10. She remains interested in transferring to a SNF for short-term rehabilitation and noted that ice application to her legs provides relief. CM will continue to follow. Discharge Potential Discharge Needs: PCP F/U Appt Anticipated Barriers to Discharge: None Identified Patient/Family Education Needs: Review discharge instructions, discuss Ask Me Three Transportation: Private vehicle Plan: Anticipate Francie will transfer to [facility] for wound care, once medically cleared. She will transport via private vehicle by [facility]. She will follow up with her PCP, [facility] nephrology and discharge plan of care. CM will continue to follow. Social Determinants of Health Screening Social Determinants of health last assessed in clinic: 05/29/25 Will the Patient Participate in the Screening?: Yes Do you worry about having a steady place to live?: no Problems where you live: no known problems In the past 12 months, have you had to go without electric, gas, oil or water in your home?: no 1. Within the past 12 months, we worried whether our food would run out before we got money to buy more.: Never true 2. Within the past 12 months, the food we bought just didn't last and we didn't have money to get more.: Never true Has lack of transportation kept you from medical appointments or from doing things needed for daily living?: no Has anyone in your life made you feel unsafe or unsupported?: choose not to answer How hard is it for you to pay for the very basics like food, housing, medical care, and heating? Would you say it is:: Not hard at all Do you want help finding or keeping work or a job?: I do not need or want help If for any reason you need help with day-to-day activities such as bathing, preparing meals, shopping, managing finances, etc., do you get the help you need?: I could use a little more help How often do you feel lonely or isolated from those around you?: Sometimes Do you speak a language other than [place]bourgish at home?: No Comments: patient feels she would benefit from having some home health assistance with dressing changes. Health Related Social Needs Health related social needs: problems with daily activities (Z73.9) and feeling lonely/isolated (Z60.8) Health related social needs details: patient would like to discuss options with case management.
--- NOTE | 2025-05-29 10:33 | W.PM.OP ---
Operative Note Operative Note PRE-OP DIAGNOSIS: Venous ulcer right leg abscess, right leg POST-OP DIAGNOSIS: same PROCEDURE: Excisional wound debridement, including fascia, right leg Incision and debridement, deep space abscess, right leg SURGEON: Kassy Zhang ANESTHESIA TYPE: Local By Surgeon (30 mL 1% Lidocaine plain) Refer to Anesthesia Record ESTIMATED BLOOD LOSS: 30 PATHOLOGY: none sent COMPLICATIONS: None Patient was transported to: PACU Patient's condition: stable Indications: This is a 65-year-old female patient with longstanding ulcers to the right lower extremity at the medial and lateral aspect of the right leg. Patient reports pain to the leg ulcers. Not amenable to bedside debridement. An OR debridement was recommended. MRI was reviewed and there was noted to be an abscess on MRI underneath the lateral ulcer. And therefore and I&D abscess was recommended as well. Patient consented to the procedure. No guarantees or warranties were made or implied. Findings: 100% necrotic wound bed to the medial ankle ulceration, ulcer medially measures approximately 4 cm x 3 cm, upon debridement there was fascia exposed, the fascia was debrided as well. Fascia was crosshatched to allow for granulation. Lateral ankle ulceration measures approximately 6 cm x 5 cm in diameter, 1 cm deep with 6 cm of tunneling in the superficial compartment and 6 cm of tunneling in the deep compartment. Right lateral ankle ulceration was 100% necrotic, there is subcutaneous fatty necrosis to the wound as well, fascia was exposed upon debridement, purulence was not encountered however that may have been evacuated with the use of a Versajet. Healthy peroneal muscle belly was visualized. Procedure Description: Patient was brought to the operating room placed on the operating table in supine position with the anesthesia team. After induction of anesthesia, local analgesia was obtained using 30 mL of 1% lidocaine plain preoperatively. The right lower extremity was then scrubbed, prepped and draped in usual aseptic manner. A Versajet was then used for excisional debridement of the medial ankle ulcer, all necrotic, nonviable skin, subcutaneous tissue as well as fascia was debrided excisionally and removed from the operative field. The fascia was then crosshatched to allow for granulation tissue to form. Attention was directed to the lateral ulcer of the right leg then, a pulse lavage was used to excisionally debride all necrotic, nonviable tissue. Fascia was noted to be exposed. A sterile #15 blade was used to incise the fascia longitudinally and then blunt dissection was then carried out to access the deep space no purulence was noted at this time the deep and superficial compartments were extensively explored for an abscess. Peroneal muscle belly was visualized and noted to be healthy appearing. This was then flushed with copious amounts of sterile saline using pulse lavage with 3 L bag. The fascia was then reapproximated using 2-0 Vicryl. Packing gauze was applied to the undermining and the superficial compartment. Dressings were then applied with Adaptic, 4 x 4 gauze, Kerlix. An Brady wrap was applied for compression. Patient tolerated the procedure and anesthesia well with vital signs stable and vascular status intact to the right lower extremity. Patient was transferred to PACU for further monitoring. She was transferred back to the floor. Will continue antibiotics. Will plan return to the OR for debridement of the right leg ulcer on Monday. May apply wound VAC. Date of Procedure: 05/29/25
[2025-05-29] MEDS: fentaNYL 100 MCG/2 ML VIAL IVP ×2 (10:45→10:55)
--- NOTE | 2025-05-29 10:48 | W.ANESPOSTOP ---
Postoperative Evaluation Date, Time and Location Date Performed: 05/29/25 Time Performed: 10:48 Patient Location: PACU Vital Signs Most Recent Imported Vital Signs: Most Recent Vital Signs Temp Pulse Resp BP Pulse Ox 36.6 C 63 14 129/62 99 05/29/25 05:29 05/29/25 05:29 05/29/25 05:29 05/29/25 05:29 05/29/25 05:29 Pain Score Most Recent Pain Score: Most Recent Pain Score Pain Level [Right Lower Leg] 5 05/28/25 14:04 Pain Level [Bilateral Leg] 0 05/28/25 08:57 Pain Level 6 05/29/25 07:59 Assessment Mental Status: Awake (Alert & Oriented to Patient Baseline) Airway and Respiratory Function: Patent airway with normal (patient baseline) respiratory exam Cardiovascular Function: Hemodynamically Stable Hydration Status: Adequately Hydrated Nausea & Vomiting: No Nausea or Vomiting Pain: Pain is Moderate or Severe Postoperative Pain Management: Pain being addressed with medication and Ongoing pain, patient will be managed as an inpatient Peripheral Nerve Block: Patient did not receive a nerve block
[2025-05-29] MEDS: ACETAMINOPHEN 1,000 MG/100 ML BAG 400 MG IVPB (10:52)
[2025-05-29] MEDS: Hydroxychloroquine 200 MG TAB PO (12:32)
[2025-05-29] MEDS: Magnesium Oxide 400 MG TAB PO (12:33)
[2025-05-29] MEDS: predniSONE 10 MG TAB 30 MG PO (12:33)
[2025-05-29] MEDS: Tamsulosin 0.4 MG CAPCR PO (12:33)
[2025-05-29] MEDS: Ketorolac 15 MG/ML VIAL IVP (12:34)
[2025-05-29] MEDS: VANCOMYCIN/WATER (PEG) 1.25 GM/250 ML BAG IV (12:34)
[2025-05-29] MEDS: Sennosides/Docusate Sodium TAB 1 TAB PO ×2 (12:36→20:20)
[2025-05-29] MEDS: Gabapentin 300 MG CAP PO ×2 (12:39→20:20)
--- NOTE | 2025-05-29 15:22 | CHAPLAIN ---
Francie told me that she was in the OR today to have an abscess drained on her leg, in hopes that this was what was causing some of her symptoms. She said she may have another procedure in the OR on Monday (06/02). Her leg was very painful right after the procedure but she has less pain now, she said. Francie has been here more than a week. Her brother visited one day, and a friend came yesterday but she has not had a lot of company. Her partner here several months ago and she is planning on selling their house and moving to a modular home so she has had a lot of decision to make on her own lately that are stressful. She is missing her two cats at home.
--- NOTE | 2025-05-29 15:31 | W.PM.PROGNOT ---
Date of Service Date of service: 05/29/25 Time of Service: 15:31 Assessment and Plan Assessment and plan (1) Cellulitis of leg, right: Status: Resolved Assessment and plan: -diagnosed during previous hospitalization, around ulcer -course of PO doxy and amoxicillin stopped 05/26 -05/27 significantly worse, resumed cefepime and vanco until imrpoving again. -MRI 05/28 showing subcut abscess, but no osteomyelitis. 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 (2) Chronic ulcer of right leg: Status: Chronic Assessment and plan: -as noted above - Will continue wound care with Santyl and dressings - MRI 05/28 showed deep fluid collection, no osteomyelitis -OR 05/29 for washout, pocket of infection deep per Dr. Zhang, she plans another procedure 06/02. (3) Acute exacerbation of CHF (congestive heart failure): Status: Resolved Assessment and plan: -patient presented with elevated BP, hypoxia, and signs of pulmonary edema (SCAPE picture), admitted for diuresis. -associated respiratory failure resolved as of 05/24, has been hemodynamically stable. -last TTE on 04/19 showed EF 65%, normal wall motion, and dilated left atria -On IV furosemide BID 60mg until 05/28, changed to oral torsemide at 100mg/day but held 05/29 pre-op. Resuming 05/30, follow/replace K+/Mg++ -encouraged to ambulate and elevate. -Venous stasis and gabapentin also likely contributing to LE edema, cut gabapentin dose from 400 to 300 05/28. (4) Cryoglobulinemic glomerulonephritis: Status: Chronic Assessment and plan: -Not Lupus Nephritis. Recent diagnosed s/p biopsy, treated with prednisone. -Renal function improved since previous admission -continue prednisone pending plan from Dr. Rolle from [facility] nephrology at decreased dose of 30mg daily. Taper to 25mg. -Continue PJP prophylaxis with 3xWeek TMP/SMX as well unitl off steroids, monitor potassium. (5) Microcytic anemia: Status: Chronic Assessment and plan: -chronic, a/w SLE, stable. Follow every 2-3 days. (6) Lupus (systemic lupus erythematosus): Assessment and plan: -This has been stable on hydroxycholoroquine. -Case reviewed with [facility] rheumatology fellow early in admission. No change in management. (7) On deep vein thrombosis (DVT) prophylaxis: Status: Chronic Assessment and plan: -u/s negative for VTE, on exoxaparin for prophylaxis -Known hypercoagulable state, but had hemorrhagic pericardial effusion while on full anticoagulation with warfarin. Subjective Subjective Patient reports: tolerating a regular diet and voiding w/o difficulty; denies nausea, vomiting, shortness of breath or fever Interval history since last seen: Events: To OR 05/29 AM for deep debridement and draining of fluid collection She feels okay after the surgery. She was out for it. Pain not bad now. She ate when she got back, though not a lot. Exam Narrative Exam Narrative: General: Alert and oriented, no acute distress CV: RRR, 1/6 murmur RUSB Resp: CTAB, nl effort. Abd: soft, NTND EXT: RLE wrapped, dressed after surgery, toes warm with cap refill <2sec Neuro: awake, alert, no focal deficits Objective Last Vital Signs Temp 35.8 C L 05/29/25 15:21 Pulse 69 05/29/25 15:21 Resp 17 05/29/25 15:21 BP 119/55 L 05/29/25 15:21 Pulse Ox 95 05/29/25 15:21 Laboratory Results - last 24 hr 05/29/25 06:18 Sodium 143 Potassium 3.9 Chloride 105 Carbon Dioxide 29.5 Anion Gap 8.5 BUN 24 H Creatinine 1.0 Est GFR (CKD-EPI 2020) 63.30 Glucose 80 Calcium 7.2 L Magnesium 2.2 Random Vancomycin 17.1 Time Spent with Patient Time Spent with Patient: 35-49 minutes Time was spent: preparing to see the patient(eg.review tests), obtaining and/or reviewing separately otained hiistory, ordering medications,tests, procedures, referring, communicating with other health child care director, indepentently interpreting results, counseling the patient and care coordination
--- NOTE | 2025-05-29 15:50 | PT.INNT ---
PT Notes Visit Reasons: CHF Exacerbation, Acute Hypoxic Resp Failure Pt unable to be treated as she was in OR for Surgical I/D of RLE subcutaneous abscess. Will confirm with MD for post op restriction prior to next treatment on 05/30/2025
[2025-05-29] MEDS: Pramipexole 0.25 MG TAB 0.125 MG PO (20:20)
[2025-05-29] MEDS: Melatonin 3 MG TAB 9 MG PO (20:20)
[2025-05-29] MEDS: Simvastatin 40 MG TAB PO (20:20)
[2025-05-30] MEDS: CEFEPIME 2 GM in Normal Saline 100 ML IVPB (01:50)
[2025-05-30] MEDS: oxyCODONE 5 MG TAB PO ×4 (02:03→17:44)
[2025-05-30 02:44] VITALS: BP 135/55; PULSE 63; RESP 16; TEMP 36.6; O2SAT 98
[2025-05-30] MEDS: Acetaminophen 500 MG TAB 1000 MG PO ×3 (05:03→20:07)
[2025-05-30] MEDS: Levothyroxine 150 MCG TAB PO (06:26)
[2025-05-30 07:18] LABS: HCT 28.8 % (36.0-46.0); HGB 9.0 g/dL (11.2-15.7); MCH 27.3 pg (27.0-33.0); MCHC 31.3 % (32.0-36.0); MCV 87 fL (80-95); MPV 9.8 fL (8.0-11.0); Platelet Count 367 10^3/uL (130-400); RBC 3.30 10^6/uL (3.93-5.22); RDW 16.4 % (11.7-14.6); RDW-SD 52.9 fL; WBC 14.65 10^3/uL (4.4-10.8)
[2025-05-30 07:28] LABS: Anion Gap 9.0 mmol/L (3-11); BUN 26 mg/dL (7-18); CO2 28.0 mmol/L (21.0-32.0); Calcium 7.1 mg/dL (8.5-10.1); Chloride 102 mmol/L (98-107); Estimated GFR 63.30 (mL/min/1.73m2); Glucose 103 mg/dL (74-106); Potassium 3.7 mmol/L (3.5-5.1); Sodium 139 mmol/L (136-145)
[2025-05-30 07:35] LABS: Vancomycin, Random 18.3 ug/mL
[2025-05-30 07:39] VITALS: BP 139/51; PULSE 61; RESP 17; TEMP 36.5; O2SAT 100
--- NOTE | 2025-05-30 07:57 | PDOC.CMPRO ---
Date of service: 05/30/25 Time of Service: 07:57 Care Management Progress Note Progress Note Text Progress Note Text: Francie was sitting up in the chair when CM met with her. Francie reports experiencing some relief today; however, she continues to have significant pain in her leg. This morning, she expressed a preference for eggs and home fries for breakfast, as she was served cereal. She also reports having oral thrush and is hopeful that receiving a preferred breakfast will help improve her overall well-being and readiness for the day; RN aware. Francie states that she has not yet applied ice to her legs today but understanding of the importance of continued leg elevation and icing as part of her care plan. CM will maintain communication with the SNF to monitor Francie?s condition and support ongoing care coordination. Discharge Potential Discharge Needs: PCP F/U Appt and Surgical F/U Appt Anticipated Barriers to Discharge: None Identified Patient/Family Education Needs: Review discharge instructions, discuss Ask Me Three Transportation: RCT [facility] Plan: Anticipate Francie will transfer [facility] for wound care, once medically cleared. She will transport via private vehicle by RCT. She will follow up with her PCP, [facility] nephrology, surgical team and discharge plan of care. CM will continue to follow. Social Determinants of Health Screening Social Determinants of health last assessed in clinic: 05/30/25 Will the Patient Participate in the Screening?: Yes Do you worry about having a steady place to live?: no Problems where you live: no known problems In the past 12 months, have you had to go without electric, gas, oil or water in your home?: no 1. Within the past 12 months, we worried whether our food would run out before we got money to buy more.: Don't know/refused 2. Within the past 12 months, the food we bought just didn't last and we didn't have money to get more.: Don't know/refused Has lack of transportation kept you from medical appointments or from doing things needed for daily living?: no Has anyone in your life made you feel unsafe or unsupported?: choose not to answer How hard is it for you to pay for the very basics like food, housing, medical care, and heating? Would you say it is:: Not hard at all Do you want help finding or keeping work or a job?: I do not need or want help If for any reason you need help with day-to-day activities such as bathing, preparing meals, shopping, managing finances, etc., do you get the help you need?: I could use a little more help How often do you feel lonely or isolated from those around you?: Sometimes Do you speak a language other than Kiswahili at home?: No Comments: patient feels she would benefit from having some home health assistance with dressing changes. Health Related Social Needs Health related social needs: problems with daily activities (Z73.9) and feeling lonely/isolated (Z60.8) Health related social needs details: patient would like to discuss options with case management.
[2025-05-30] MEDS: Mometasone 220 MCG 14 DOSE INHALER 1 PUFF IH (08:31)
[2025-05-30] MEDS: predniSONE 10 MG TAB 30 MG PO (08:45)
[2025-05-30] MEDS: Gabapentin 300 MG CAP PO (08:46)
[2025-05-30] MEDS: Aspirin E.C. 81 MG TABEC PO (08:47)
[2025-05-30] MEDS: Sennosides/Docusate Sodium TAB 1 TAB PO ×2 (08:47→20:07)
[2025-05-30] MEDS: Hydroxychloroquine 200 MG TAB PO (08:48)
[2025-05-30] MEDS: Enoxaparin 40 MG/0.4 ML SYR SC (08:48)
[2025-05-30] MEDS: Tamsulosin 0.4 MG CAPCR PO (08:48)
[2025-05-30] MEDS: Normal Saline Flush 10 ML SYR IVP ×4 (08:49→20:11)
[2025-05-30] MEDS: Nystatin 500000 UNITS/5 ML SUSP 5ML CUP PO ×3 (08:57→20:07)
[2025-05-30 11:21] VITALS: BP 155/69; PULSE 67; RESP 18; TEMP 36.7; O2SAT 98
[2025-05-30] MEDS: VANCOMYCIN/WATER (PEG) 1.25 GM/250 ML BAG IV (13:53)
[2025-05-30] MEDS: Magnesium Oxide 400 MG TAB PO (13:54)
[2025-05-30] MEDS: Sulfameth/Trimeth DS TAB 1 TAB PO (14:04)
--- NOTE | 2025-05-30 14:06 | W.PM.PROGNOT ---
Date of Service Date of service: 05/30/25 Time of Service: 14:06 Assessment and Plan Assessment and plan (1) Cellulitis of leg, right: Status: Resolved Assessment and plan: -diagnosed during previous hospitalization, around ulcer -course of PO doxy and amoxicillin stopped 05/26 -05/27 significantly worse, resumed cefepime and vanco until imrpoving again. -MRI 05/28 showing subcut abscess, but no osteomyelitis. 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 (2) Chronic ulcer of right leg: Status: Chronic Assessment and plan: -as noted above - Will continue wound care with Santyl and dressings - MRI 05/28 showed deep fluid collection, no osteomyelitis -OR 05/29 for washout, pocket of infection deep per Dr. Zhang, she plans another procedure 06/02 (3) Acute exacerbation of CHF (congestive heart failure): Status: Resolved Assessment and plan: -patient presented with elevated BP, hypoxia, and signs of pulmonary edema (SCAPE picture), admitted for diuresis. -associated respiratory failure resolved as of 05/24, has been hemodynamically stable. -last TTE on 04/19 showed EF 65%, normal wall motion, and dilated left atria -On IV furosemide BID 60mg until 05/28, changed to oral torsemide at 100mg/day but held 05/29 pre-op. Resumed 05/30 with good effect, try cutting dose to 60mg, follow lytes -encouraged to ambulate and elevate. -Venous stasis and gabapentin also likely contributing to LE edema, cut gabapentin dose from 400 to 300 05/28 without worse pain, continue taper to 200mg (4) Cryoglobulinemic glomerulonephritis: Status: Chronic Assessment and plan: -Not Lupus Nephritis. Recent diagnosed s/p biopsy, treated with prednisone. -Renal function improved since previous admission -continue prednisone pending plan from Dr. Rolle from [facility] nephrology at decreased dose of 30mg daily. - Taper discussed with [facility] Nephrology Radha again 05/30, agree with 25mg, plan to send home on 20mg for follow up with Neprhology on 06/17 as outpatient. -Continue PJP prophylaxis with 3xWeek TMP/SMX as well unitl off steroids, monitor potassium. (5) Microcytic anemia: Status: Chronic Assessment and plan: -chronic, a/w SLE, stable. Follow every 2-3 days. (6) Lupus (systemic lupus erythematosus): Assessment and plan: -This has been stable on hydroxycholoroquine. -Case reviewed with [facility] rheumatology fellow early in admission. No change in management. (7) Hypocalcemia: Status: Acute Assessment and plan: Has trended down, came off oral calcium, will resume with vitamin D. This should be a chornic medication given her history of surgical hypoparathyroidism. Start back at [facility], can go to [facility] on discharge. (8) On deep vein thrombosis (DVT) prophylaxis: Status: Chronic Assessment and plan: -u/s negative for VTE, on exoxaparin for prophylaxis -Known hypercoagulable state, but had hemorrhagic pericardial effusion while on full anticoagulation with warfarin. Subjective Subjective Patient reports: tolerating a regular diet and voiding w/o difficulty; denies diarrhea, nausea, vomiting, shortness of breath or fever Interval history since last seen: Events: Walking more with PT today Legs feel better, less pain, less heavy. Feeling better overall. Exam Narrative Exam Narrative: General: Alert and oriented, no acute distress CV: RRR, 1/6 murmur RUSB Resp: CTAB, nl effort. Abd: soft, NTND EXT: RLE wrapped, dressed after surgery, toes warm with cap refill <2sec. Redness in leg has receded. Neuro: awake, alert, no focal deficits Objective Last Vital Signs Temp 36.7 C 05/30/25 11:21 Pulse 67 05/30/25 11:21 Resp 18 05/30/25 11:21 BP 155/69 H 05/30/25 11:21 Pulse Ox 98 05/30/25 11:21 Laboratory Results - last 24 hr 05/30/25 07:10 WBC 14.65 H RBC 3.30 L Hgb 9.0 L Hct 28.8 L MCV 87 MCH 27.3 MCHC 31.3 L RDW 16.4 H Plt Count 367 MPV 9.8 Sodium 139 Potassium 3.7 Chloride 102 Carbon Dioxide 28.0 Anion Gap 9.0 BUN 26 H Creatinine 1.0 Est GFR (CKD-EPI 2020) 63.30 Glucose 103 Calcium 7.1 L Random Vancomycin 18.3 Time Spent with Patient Time Spent with Patient: >50 minutes Time was spent: preparing to see the patient(eg.review tests), obtaining and/or reviewing separately otained hiistory, ordering medications,tests, procedures, referring, communicating with other health career representative, indepentently interpreting results, counseling the patient and care coordination
--- NOTE | 2025-05-30 14:16 | PT.INTREAT ---
PT Notes Visit Reasons: CHF Exacerbation, Acute Hypoxic Resp Failure Date: 05/30/2025 PRECAUTIONS: Fall, Standard, contact precautions, Activity as tolerated. SUBJECTIVE: pt in recliner when approached for therapy this morning. OBJECTIVE: ? PAIN: RLE 1-210 with pain meds VITALS: closely monitored by nursing Therapeutic Activities 44578: Direct one-on-one instruction in dynamic activities to improve functional performance. ?? BED MOBILITY/TRANSFERS? Sit-stand: ? ?independent? Stand-sit: ?? independent ? Bed-Chair:? ? ?independent? Chair-bed: independent Provided skilled cues and instruction on performance and technique throughout. Gait Training 18249: Direct one-on-one instruction and skilled instruction in: Employing an assistive device Modified weight-bearing status Movement sequencing Turning and movement with proper form Provided verbal cues for equipment management and technique Provided instruction in gait pattern Patient education regarding pacing and breathing techniques to maximize activity tolerance? GAIT? Assistive Device: ?? FWW? Weight bearing: FWB Assist: independent ? Distance:?? 30', 100', 130', 140' ? Deviation: ? Unremarkable? Therapeutic Exercises 84544: Direct one-on-one instruction in therapeutic exercises to develop strength, endurance, range of motion and flexibility. Exercises Standing march 10x with bilat UE support to FWW Sit-stand x 10 Standing hip AB, CGA and bilat UE support to FWW Standing shoulder flexion, CGA 10x Standing Heel to toe raise [id number] Seated LAQ [id number] Seated SAQ [id number] Seated hop abduction [id number] Seated SLR [id number]? Provided skilled instruction in proper exercise performance Provided skilled manual cues to facilitate proper muscle recruitment and/or form: ASSESSMENT:?Pt observed going from recliner to the toilet by herself and is doing safe transitions, pt reports feeling invigorated after walking and exercise. PLAN: Continue with balance training, global strengthening and general conditioning for improved safety, mobility and activity tolerance until pt is ready for DC. TREATMENT CODE/TIME: [id number] 30mins (9:35-10:05am)
--- NOTE | 2025-05-30 14:28 | PT.INDS ---
PT Notes Visit Reasons: CHF Exacerbation, Acute Hypoxic Resp Failure Inpatient Physical Therapy Discharge Summary Dates: 05/30/2025 Dates of Service: 05/22/2025-05/30/2025 SUBJECTIVE: Pt states she feels better after the procedure. Sh estates she had been getting up and going to the bathroom ad walking laps in her room OBJECTIVE: [] Pain: RLE 1-2 with pain meds ROM: BUE: WFL L LE: WFL R LE: Hip and knee WFL, ankle to neutral DF with Brady wrap in place to RLE STRENGTH: L UE: 5/5 R UE: 5/5 L LE: 5/5 R LE: hip >/= to 3/5, knee >/=to 3/5, ankle >/=to 3/5 BED MOBILITY/TRANSFERS: Supine-sit independent Sit-supine Independent Sit-stand independent Stand-sit Independent Bed-Chair Mod I with FWW Chair-bed Caleb with FWW GAIT: amb with FWW mod I in room >600 feet. level surfaces including turns Pt demonstrating no antalgic pattern at time of discharge Stairs: 3 4 steps? and 2 6 steps with rails SBA with continuous cues for sequencing step to pattern BALANCE: Static sitting Normal Dynamic sitting Good Static standing Normal Dynamic standing Good SPECIAL TESTS: AM-PAC 6 click 24 indicating 0% deficit ASSESSMENT: Francie is a 65 yo female presenting with RLE ulcers, cellulitis . Pt found to have subcutaneous abscess of RLE. She underwent I&D on 05/29/[address] Zhang. She has returned to prior level of ambulation, transfers and bed mobility. She is now able to walk 600 feet with FWW within her room as she is on precautions llimiting her ability to leave the room. She is independently tolileting with the use of FWW. She performs ADL at the sink standing. She is independent with BLE HEP . No further skilled PT indicated within Inpatient Setting. GOALS ( Met / Not Met):All Goals Met below Goals 1. Supine-Sit supervision MET 2. Sit-Supine supervision MET 3. Sit-Stand supervision MET 4. Stand-Sit supervision MET 5. Bed-Chair supervision with wheeled walker MET 6. Chair-Bed supervision with wheeled walker MET 7. Ambulate with WW 200 feet supervision MET 8. Perform 3 steps with rail to safely enter and exit home supervision MET 9. Independent with home exercise program to improve range of motion and strength MET DISCHARGE PLAN/RECOMMENDATIONS: [] [] Home with no services [] [X] Home with services PT for safety assessment [] Home with outpatient PT [] [] SNF for continued rehabilitation [] [] Custodial Care [] [] SNF versus LTC based on ability to participate and progress [] Treatment Codes: 80099/ [id number]
[2025-05-30 15:03] VITALS: BP 125/63; PULSE 66; RESP 16; TEMP 36.7; O2SAT 98
[2025-05-30] MEDS: ceFAZolin 2 GM/50 ML BAG IVPB ×2 (15:05→23:57)
[2025-05-30] MEDS: Simvastatin 40 MG TAB PO (20:07)
[2025-05-30] MEDS: Calcium 600mg/Vit D 200U TAB 1 TAB PO (20:07)
[2025-05-30] MEDS: Gabapentin 100 MG CAP 200 MG PO (20:07)
[2025-05-30] MEDS: Doxycycline Hyclate 100 MG CAP PO (20:07)
[2025-05-30] MEDS: Melatonin 3 MG TAB 9 MG PO (20:08)
[2025-05-30] MEDS: Pramipexole 0.25 MG TAB 0.125 MG PO (20:08)
[2025-05-30 20:11] VITALS: BP 147/64; PULSE 63; RESP 17; TEMP 36.5; O2SAT 98
[2025-05-31] MEDS: oxyCODONE 5 MG TAB PO ×5 (00:05→18:33)
[2025-05-31 00:06] VITALS: BP 133/55; PULSE 65; RESP 16; TEMP 36; O2SAT 97
[2025-05-31] MEDS: Acetaminophen 500 MG TAB 1000 MG PO ×2 (02:47→13:10)
[2025-05-31 05:25] VITALS: BP 147/70; PULSE 68; RESP 15; TEMP 36.5; O2SAT 98
[2025-05-31] MEDS: Levothyroxine 150 MCG TAB PO (05:53)
[2025-05-31 07:12] LABS: Anion Gap 7.6 mmol/L (3-11); BUN 26 mg/dL (7-18); CO2 32.4 mmol/L (21.0-32.0); Calcium 7.3 mg/dL (8.5-10.1); Chloride 101 mmol/L (98-107); Estimated GFR 56.46 (mL/min/1.73m2); Glucose 92 mg/dL (74-106); Magnesium 2.3 mg/dL (1.8-2.4); Potassium 3.4 mmol/L (3.5-5.1); Sodium 141 mmol/L (136-145)
[2025-05-31] MEDS: Mometasone 220 MCG 14 DOSE INHALER 1 PUFF IH (07:33)
[2025-05-31 07:39] VITALS: BP 146/56; PULSE 61; RESP 16; TEMP 35.9; O2SAT 99
[2025-05-31] MEDS: Calcium 600mg/Vit D 200U TAB 1 TAB PO ×3 (09:01→20:17)
[2025-05-31] MEDS: Enoxaparin 40 MG/0.4 ML SYR SC (09:01)
[2025-05-31] MEDS: Aspirin E.C. 81 MG TABEC PO (09:01)
[2025-05-31] MEDS: Sennosides/Docusate Sodium TAB 1 TAB PO ×2 (09:01→20:17)
[2025-05-31] MEDS: Nystatin 500000 UNITS/5 ML SUSP 5ML CUP PO ×3 (09:01→20:17)
[2025-05-31] MEDS: Gabapentin 100 MG CAP 200 MG PO ×2 (09:01→20:17)
[2025-05-31] MEDS: predniSONE 10 MG TAB 25 MG PO (09:02)
[2025-05-31] MEDS: Doxycycline Hyclate 100 MG CAP PO ×2 (09:02→20:17)
[2025-05-31] MEDS: Hydroxychloroquine 200 MG TAB PO (09:02)
[2025-05-31] MEDS: Tamsulosin 0.4 MG CAPCR PO (09:03)
[2025-05-31] MEDS: Normal Saline Flush 10 ML SYR IVP ×2 (09:03→20:19)
[2025-05-31] MEDS: Torsemide 20 MG TAB 60 MG PO (09:03)
[2025-05-31] MEDS: ceFAZolin 2 GM/50 ML BAG IVPB ×2 (09:04→16:00)
[2025-05-31 11:14] VITALS: BP 142/69; PULSE 62; RESP 18; TEMP 36.6; O2SAT 96
[2025-05-31] MEDS: Magnesium Oxide 400 MG TAB PO (13:15)
--- NOTE | 2025-05-31 14:15 | W.PM.PROGNOT ---
Date of Service Date of service: 05/31/25 Time of Service: 14:15 Assessment and Plan Assessment and plan (1) Cellulitis of leg, right: Status: Resolved Assessment and plan: -diagnosed during previous hospitalization, around ulcer -course of PO doxy and amoxicillin stopped 05/26 -05/27 significantly worse, resumed cefepime and vanco until imrpoving again. -MRI 05/28 showing subcut abscess, but no osteomyelitis. 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 Zhang, she plans another procedure 06/02 -As above, dressing changed 05/31, looks healthy (3) Acute exacerbation of CHF (congestive heart failure): Status: Resolved Assessment and plan: -patient presented with elevated BP, hypoxia, and signs of pulmonary edema (SCAPE picture), admitted for diuresis. -associated respiratory failure resolved as of 05/24, has been hemodynamically stable. -last TTE on 04/19 showed EF 65%, normal wall motion, and dilated left atria -On IV furosemide BID 60mg until 05/28, changed to oral torsemide at 100mg/day but held 05/29 pre-op. Resumed 05/30 with good effect, cut dose to 60mg 05/31, replace K+, I/Os still negative. -encouraged to ambulate and elevate. -Venous stasis and gabapentin also likely contributing to LE edema, cut gabapentin dose from 400 to 300 05/28 without worse pain, continued taper to 200mg 05/30 but more pain 05/31, will resume 300mg, continue comrpession (4) Cryoglobulinemic glomerulonephritis: Status: Chronic Assessment and plan: -Not Lupus Nephritis. Recent diagnosed s/p biopsy, treated with prednisone. -Renal function improved since previous admission -continue prednisone pending plan from Dr. Rolle from [facility] nephrology at decreased dose of 30mg daily. - Taper discussed with [facility] Nephrology Rahda again 05/30, agree with 25mg, plan to send home on 20mg for follow up with Neprhology on 06/17 as outpatient. -Continue PJP prophylaxis with 3xWeek TMP/SMX as well until off steroids, monitor potassium, no change (5) Microcytic anemia: Status: Chronic Assessment and plan: -chronic, a/w SLE, stable. Follow every 2-3 days. (6) Lupus (systemic lupus erythematosus): Assessment and plan: -This has been stable on hydroxycholoroquine. -Case reviewed with [facility] rheumatology fellow early in admission. No change in management. (7) Hypocalcemia: Status: Acute Assessment and plan: Has trended down off oral calcium this admission, 05/30 resumed supplement with vitamin D. This should be a chronic medication given her history of surgical hypoparathyroidism. Started back at [facility], can go to [facility] on discharge. (8) On deep vein thrombosis (DVT) prophylaxis: Status: Chronic Assessment and plan: -u/s negative for VTE, on exoxaparin for prophylaxis -Known hypercoagulable state, but had hemorrhagic pericardial effusion while on full anticoagulation with warfarin. Subjective Subjective Patient reports: tolerating a regular diet and voiding w/o difficulty; denies diarrhea, nausea, vomiting, shortness of breath or fever Interval history since last seen: Having a little more pain in her right leg. Exam Narrative Exam Narrative: General: Alert and oriented, no acute distress CV: RRR, 1/6 murmur RUSB Resp: CTAB, nl effort. Abd: soft, NTND EXT: RLE unwrapped, skin around wounds without exudate, minimal erythema, tissue apears healthy. 1+ kylah LE edema, more in left (right wrapped with TRUPTI). She was quite uncomfortable with dressing change. Neuro: awake, alert, no focal deficits Objective Last Vital Signs Temp 36.6 C 05/31/25 11:14 Pulse 62 05/31/25 11:14 Resp 18 05/31/25 11:14 BP 142/69 H 05/31/25 11:14 Pulse Ox 96 05/31/25 11:14 Laboratory Results - last 24 hr 05/31/25 06:23 Sodium 141 Potassium 3.4 L Chloride 101 Carbon Dioxide 32.4 H Anion Gap 7.6 BUN 26 H Creatinine 1.1 H Est GFR (CKD-EPI 2020) 56.46 Glucose 92 Calcium 7.3 L Magnesium 2.3 Time Spent with Patient Time Spent with Patient: 35-49 minutes Time was spent: preparing to see the patient(eg.review tests), obtaining and/or reviewing separately otained hiistory, ordering medications,tests, procedures, referring, communicating with other health zoo caretaker, indepentently interpreting results, counseling the patient and care coordination
[2025-05-31 15:15] VITALS: BP 137/73; PULSE 82; RESP 16; TEMP 36.3; O2SAT 99
[2025-05-31] MEDS: Potassium Chloride 20 MEQ TABCR 40 MEQ PO (16:00)
[2025-05-31] MEDS: Pramipexole 0.25 MG TAB 0.125 MG PO (20:17)
[2025-05-31] MEDS: Melatonin 3 MG TAB 9 MG PO (20:17)
[2025-05-31] MEDS: Simvastatin 40 MG TAB PO (20:17)
[2025-05-31 21:38] VITALS: BP 114/74; PULSE 63; RESP 16; TEMP 36.6; O2SAT 99
[2025-05-31] MEDS: Gabapentin 100 MG CAP PO (21:57)
[2025-06-01] VITALS (7 sets, daily range): BP systolic 133–147; BP diastolic 43–65; PULSE 57–81; RESP 15–19; TEMP 36.4–36.9; O2SAT 97–100
[2025-06-01] MEDS: ceFAZolin 2 GM/50 ML BAG IVPB ×3 (00:15→15:58)
[2025-06-01] MEDS: Acetaminophen 500 MG TAB 1000 MG PO ×4 (00:22→19:51)
[2025-06-01] MEDS: oxyCODONE 5 MG TAB PO ×4 (00:22→16:16)
[2025-06-01] MEDS: Levothyroxine 150 MCG TAB PO (05:48)
[2025-06-01] MEDS: Normal Saline Flush 10 ML SYR IVP ×4 (06:17→19:53)
[2025-06-01 06:46] LABS: HCT 27.5 % (36.0-46.0); MCH 27.5 pg (27.0-33.0); MCHC 31.6 % (32.0-36.0); MCV 87 fL (80-95); MPV 9.8 fL (8.0-11.0); Platelet Count 339 10^3/uL (130-400); RBC 3.16 10^6/uL (3.93-5.22); RDW 16.3 % (11.7-14.6); RDW-SD 52.0 fL; WBC 8.47 10^3/uL (4.4-10.8)
[2025-06-01 07:01] LABS: Anion Gap 5.8 mmol/L (3-11); BUN 23 mg/dL (7-18); CO2 34.2 mmol/L (21.0-32.0); Calcium 7.7 mg/dL (8.5-10.1); Chloride 100 mmol/L (98-107); Estimated GFR 56.46 (mL/min/1.73m2); Glucose 91 mg/dL (74-106); Potassium 3.7 mmol/L (3.5-5.1); Sodium 140 mmol/L (136-145)
[2025-06-01 07:14] LABS: HGB 8.7 g/dL (11.2-15.7)
[2025-06-01] MEDS: Mometasone 220 MCG 14 DOSE INHALER 1 PUFF IH (08:05)
[2025-06-01] MEDS: Nystatin 500000 UNITS/5 ML SUSP 5ML CUP PO ×3 (08:19→19:52)
[2025-06-01] MEDS: Enoxaparin 40 MG/0.4 ML SYR SC (08:20)
[2025-06-01] MEDS: Torsemide 20 MG TAB 60 MG PO (08:21)
[2025-06-01] MEDS: Sennosides/Docusate Sodium TAB 1 TAB PO ×2 (08:22→19:52)
[2025-06-01] MEDS: Calcium 600mg/Vit D 200U TAB 1 TAB PO ×3 (08:22→19:50)
[2025-06-01] MEDS: Tamsulosin 0.4 MG CAPCR PO (08:22)
[2025-06-01] MEDS: Doxycycline Hyclate 100 MG CAP PO ×2 (08:22→19:52)
[2025-06-01] MEDS: Aspirin E.C. 81 MG TABEC PO (08:22)
[2025-06-01] MEDS: Hydroxychloroquine 200 MG TAB PO (08:22)
[2025-06-01] MEDS: Gabapentin 300 MG CAP PO ×3 (08:22→19:51)
[2025-06-01] MEDS: predniSONE 10 MG TAB 25 MG PO (08:22)
--- NOTE | 2025-06-01 11:05 | PGE_ITS ---
Date of Service Date of service: 06/01/25 Time of Service: 11:05 Assessment and Plan Assessment and plan (1) Cellulitis of leg, right: Status: Resolved Assessment and plan: -diagnosed during previous hospitalization, around ulcer -course of PO doxy and amoxicillin stopped 05/26 -05/27 significantly worse, resumed cefepime and vanco until imrpoving again. -MRI 05/28 showing subcut abscess, but no osteomyelitis. I&D 05/29 in OR with gram stain showing no bacteria but culture did end up growing E. coli sens to cefazolin and CTX -Much improved after I&D, stopped cefepime/vanco, to cefazolin IV and oral doxycycline 05/30 (2) Chronic ulcer of right leg: Status: Chronic Assessment and plan: - as noted above - MRI 05/28 showed deep fluid collection, no osteomyelitis -OR 05/29 for washout, pocket of infection deep per Dr. Zhang, she plans another procedure 06/02 -As above, dressing changed 05/31, looks healthy (3) Acute exacerbation of CHF (congestive heart failure): Status: Resolved Assessment and plan: -patient presented with elevated BP, hypoxia, and signs of pulmonary edema (SCAPE picture), admitted for diuresis. -associated respiratory failure resolved as of 05/24, has been hemodynamically stable. -last TTE on 04/19 showed EF 65%, normal wall motion, and dilated left atria -On IV furosemide BID 60mg until 05/28, -changed to oral torsemide at 100mg/day but held 05/29 pre-op. -Resumed 05/30 with good effect, cut dose to 60mg 05/31 -encouraged to ambulate and elevate. -Venous stasis and gabapentin also likely contributing to LE edema, cut gabapentin dose from 400 to 300 05/28 without worse pain, continued taper to 200mg 05/30 but more pain 05/31, will resume 300mg, continue comrpession (4) Cryoglobulinemic glomerulonephritis: Status: Chronic Assessment and plan: -Not Lupus Nephritis. Recent diagnosed s/p biopsy, treated with prednisone. -Renal function improved since previous admission -continue prednisone pending plan from Dr. Rolle from [facility] nephrology at decreased dose of 30mg daily. - Taper discussed with [facility] Nephrology Radha again 05/30, agree with 25mg, plan to send home on 20mg [facility]. -Continue PJP prophylaxis with 3xWeek TMP/SMX as well until off steroids, monitor potassium, no change (5) Microcytic anemia: Status: Chronic Assessment and plan: -chronic, a/w SLE, stable. Follow every 2-3 days. (6) Lupus (systemic lupus erythematosus): Assessment and plan: -This has been stable on hydroxycholoroquine. -Case reviewed with [facility] rheumatology fellow early in admission. No change in management. (7) Hypocalcemia: Status: Acute Assessment and plan: -Has trended down off oral calcium this admission, 05/30 resumed supplement with vitamin D. -This should be a chronic medication given her history of surgical hypoparathyroidism. Started back at TID, can go to BID on discharge. (8) On deep vein thrombosis (DVT) prophylaxis: Status: Chronic Assessment and plan: -u/s negative for VTE, on exoxaparin for prophylaxis -Known hypercoagulable state, but had hemorrhagic pericardial effusion while on full anticoagulation with warfarin. Subjective Subjective Interval history since last seen: Patient states that she is doing well today, understand that she may have additional intervention by podiatry tomorrow 06/02/2025. Otherwise she has no other complaints concerns at this time. Exam Narrative Exam Narrative: Well-appearing older female sitting up in the chair no acute distress, ANO x 4, heart regular rhythm, lungs good auscultation bilaterally, abdomen soft, nontender, nondistended, significant improvement in bilateral lower extremity edema with right lower extremity bandaged and wrapped Objective Last Vital Signs Temp 98.4 F 06/01/25 07:33 Pulse 59 L 06/01/25 07:33 Resp 16 06/01/25 07:33 BP 139/57 L 06/01/25 07:33 Pulse Ox 100 06/01/25 07:33 Laboratory Results - last 24 hr 06/01/25 06:23 WBC 8.47 RBC 3.16 L Hgb 8.7 L Hct 27.5 L MCV 87 MCH 27.5 MCHC 31.6 L RDW 16.3 H Plt Count 339 MPV 9.8 Sodium 140 Potassium 3.7 Chloride 100 Carbon Dioxide 34.2 H Anion Gap 5.8 BUN 23 H Creatinine 1.1 H Est GFR (CKD-EPI 2020) 56.46 Glucose 91 Calcium 7.7 L Time Spent with Patient Time Spent with Patient: >50 minutes Time was spent: preparing to see the patient(eg.review tests), obtaining and/or reviewing separately otained hiistory, ordering medications,tests, procedures, referring, communicating with other health care coordination manager, indepentently interpreting results, counseling the patient and care coordination
[2025-06-01] MEDS: Magnesium Oxide 400 MG TAB PO (11:43)
[2025-06-01] MEDS: Collagenase 30 GM TUBE TP (12:07)
[2025-06-01] MEDS: Melatonin 3 MG TAB 9 MG PO (19:50)
[2025-06-01] MEDS: Simvastatin 40 MG TAB PO (19:51)
[2025-06-01] MEDS: Pramipexole 0.25 MG TAB 0.125 MG PO (19:52)
[2025-06-01] MEDS: Milk of Magnesia 30 ML CUP PO (19:52)
[2025-06-02] VITALS (9 sets, daily range): BP systolic 116–143; BP diastolic 52–64; PULSE 57–74; RESP 12–18; TEMP 36.5–36.8; O2SAT 96–100
[2025-06-02] MEDS: ceFAZolin 2 GM/50 ML BAG IVPB ×3 (00:16→20:11)
[2025-06-02] MEDS: oxyCODONE 5 MG TAB PO ×3 (04:13→20:07)
[2025-06-02] MEDS: Acetaminophen 500 MG TAB 1000 MG PO ×2 (04:13→11:36)
[2025-06-02] MEDS: Levothyroxine 150 MCG TAB PO (06:20)
[2025-06-02] MEDS: Nystatin 500000 UNITS/5 ML SUSP 5ML CUP PO ×3 (08:00→20:11)
[2025-06-02] MEDS: Calcium 600mg/Vit D 200U TAB 1 TAB PO ×3 (08:02→20:10)
[2025-06-02] MEDS: Sennosides/Docusate Sodium TAB 1 TAB PO ×2 (08:02→20:09)
[2025-06-02] MEDS: predniSONE 10 MG TAB 25 MG PO (08:02)
[2025-06-02] MEDS: Hydroxychloroquine 200 MG TAB PO (08:02)
[2025-06-02] MEDS: Tamsulosin 0.4 MG CAPCR PO (08:02)
[2025-06-02] MEDS: Aspirin E.C. 81 MG TABEC PO (08:03)
[2025-06-02] MEDS: Doxycycline Hyclate 100 MG CAP PO ×2 (08:03→20:09)
[2025-06-02] MEDS: Gabapentin 300 MG CAP PO ×3 (08:03→20:10)
[2025-06-02] MEDS: Torsemide 20 MG TAB 60 MG PO (08:03)
[2025-06-02] MEDS: Mometasone 220 MCG 14 DOSE INHALER 1 PUFF IH (08:17)
--- NOTE | 2025-06-02 08:18 | CMPROGNOTE_ITS ---
Date of service: 06/02/25 Time of Service: 14:06 Care Management Progress Note Progress Note Text Progress Note Text: Francie was awake and lying in bed when CM met with her. She expresses that she is having a hard time staying busy during this extended hospital stay. CM provided her with a deck of cards and a word search book, which she reports was very thoughtful. Francie met with Dr. Zhang and is planning to go to the OR for additional wound debridement; plan of care updates are pending provider recommendations. Per CM report, Francie had previously been accepted by [facility] for wound care once medically cleared. CM notified [facility] of potential discharge readiness as early as tomorrow. Patient will transition to PO abx prior to discharge. And transport via [facility]. CM will continue to follow. Discharge Potential Discharge Needs: PCP F/U Appt and Surgical F/U Appt Anticipated Barriers to Discharge: None Identified Patient/Family Education Needs: Review discharge instructions, discuss Ask Me Three Transportation: RCT Plan: Anticipate Francie will transfer to [facility] for wound care, once medically cleared. She will transport via private vehicle by [facility]. She will follow up with her PCP, podiatry, [facility] nephrology, surgical team and discharge plan of care. CM will continue to follow. Social Determinants of Health Screening Social Determinants of health last assessed in clinic: 06/02/25 Will the Patient Participate in the Screening?: Yes Do you worry about having a steady place to live?: no Problems where you live: no known problems In the past 12 months, have you had to go without electric, gas, oil or water in your home?: no 1. Within the past 12 months, we worried whether our food would run out before we got money to buy more.: Never true 2. Within the past 12 months, the food we bought just didn't last and we didn't have money to get more.: Never true Has lack of transportation kept you from medical appointments or from doing things needed for daily living?: no Has anyone in your life made you feel unsafe or unsupported?: choose not to answer How hard is it for you to pay for the very basics like food, housing, medical care, and heating? Would you say it is:: Not hard at all Do you want help finding or keeping work or a job?: I do not need or want help If for any reason you need help with day-to-day activities such as bathing, preparing meals, shopping, managing finances, etc., do you get the help you need?: I could use a little more help How often do you feel lonely or isolated from those around you?: Sometimes Do you speak a language other than Cuban at home?: No Comments: patient feels she would benefit from having some home health assistance with dressing changes. Health Related Social Needs Health related social needs: problems with daily activities (Z73.9) and feeling lonely/isolated (Z60.8) Health related social needs details: patient would like to discuss options with case management.
[2025-06-02] MEDS: Normal Saline Flush 10 ML SYR IVP ×3 (08:58→20:11)
--- NOTE | 2025-06-02 10:58 | W.ANESPRE ---
General Info Date of Service Date Performed: 06/02/25 Height: 5 ft 5 in Weight: 81.9 kg Body Mass Index (BMI): 30.0 Surgical Procedure: Operation Date: 05/29/25 08:55 Proposed Procedure Side Surgeon p Debridement of Wound Kassy Zhang DPM Actual Procedure Side Surgeon p Excisional Debridement of Leg Wound; Incision, Irrigation + Debridement of Leg Abscess Right Kassy Zhang DPM Pre-Op Diagnosis Post-Op Diagnosis Ulcer of right lower extremity with fat layer exposed Venous ulcer of right leg Ulcer of right lower extremity with fat layer exposed Venous ulcer of right leg Chronic wound of right leg Operation Date: 06/02/25 14:10 Proposed Procedure Side Surgeon p Excisional Debridement of Leg Wound Left Kassy Zhang DPM Meds Allergies and Home Medications Allergies Allergy/AdvReac Type Severity Reaction Status Date / Time zolpidem (From Ambien) AdvReac Severe Other (See Verified 05/21/25 15:59 Comment) morphine AdvReac Dizziness/L Verified 05/20/25 13:24 [place] Home Medication ?Medication ?Instructions ?Recorded hydroxychloroquine 200 mg tablet 200 mg PO DAILY #30 tab-caps 11/16/16 albuterol sulfate 90 mcg/actuation 2 puff inhalation Q6H PRN 10/04/18 aerosol inhaler (ProAir HFA) shortness of breath calcium carbonate (Oyster Shell 500 mg PO DAILY 07/05/19 Calcium) acetaminophen 500 mg tablet 1,000 mg (2 x 500 mg) PO Q8H PRN 07/17/19 pain #90 tabs aspirin 81 mg tablet,delayed 81 mg PO DAILY 05/08/20 release gabapentin 400 mg capsule 400 mg PO BID 05/20/24 amlodipine 2.5 mg tablet 2.5 mg PO DAILY 01/31/25 pramipexole 0.125 mg tablet 0.25 mg PO QPM 04/18/25 cholecalciferol (vitamin D3) 1,250 1,250 mcg PO .COMPLEX 05/15/25 mcg (50,000 unit) capsule fluticasone furoate 100 1 inh inhalation DAILY 05/15/25 mcg/actuation blister powder for inhalation (Arnuity Ellipta) labetalol 100 mg tablet 100 mg PO DAILY 05/15/25 levothyroxine 150 mcg tablet 150 mcg PO DAILY 05/15/25 magnesium oxide 500 mg PO DAILY 05/15/25 prednisone 20 mg tablet 40 mg PO DAILY 05/15/25 simvastatin 40 mg tablet 40 mg PO DAILY 05/15/25 sulfamethoxazole 800 1 tab PO .COMPLEX 05/15/25 mg-trimethoprim 160 mg tablet amoxicillin 875 mg tablet 875 mg PO BID #14 tabs 05/19/25 doxycycline hyclate 100 mg capsule 100 mg PO BID #14 caps 05/19/25 prednisone 10 mg tablet 30 mg (3 x 10 mg) PO DAILY #120 05/19/25 tabs Current Visit Medications: Current Medications Generic Name Dose Route Start Last Admin Trade Name Freq PRN Reason Stop Dose Admin Acetaminophen 1,000 mg 05/27/25 14:48 06/02/25 04:13 Acetaminophen 500 Mg Tab PO 1,000 mg Q6H PRN PRN Administration Albuterol Sulfate 2 puff 05/20/25 11:24 Albuterol Hfa 8 Gm 60 Puff Inh IH Q6H PRN PRN Shortness of Breath Aspirin 81 mg 05/21/25 08:30 06/02/25 08:03 Aspirin E.C. 81 Mg Tabec PO 81 mg DAILY WILLIE Administration Collagenase 30 gm 05/21/25 08:30 06/02/25 08:05 Collagenase 30 Gm Tube TP Not Given DAILY WILLIE Enoxaparin Sodium 40 mg 05/21/25 08:30 06/02/25 08:04 Enoxaparin 40 Mg/0.4 Ml Syr SC Not Given DAILY WILLIE Gabapentin 300 mg 05/28/25 20:00 05/30/25 08:46 Gabapentin 300 Mg Cap PO 300 mg BID WILLIE Administration Gadoterate Meglumine 20 ml 05/28/25 11:15 05/28/25 11:06 Gadoterate Meglumine 20 Ml Syringe IVP 06/27/25 23:59 17 ml DIRECTED WILLIE Administration Hydroxychloroquine Sulfate 200 mg 05/21/25 08:30 06/02/25 08:02 Hydroxychloroquine 200 Mg Tab PO 200 mg DAILY WILLIE Administration Vancomycin/PEG/NADA/Lysine/Water 1.25 gm in 250 mls @ 166.667 mls/hr 05/28/25 12:00 05/30/25 15:24 Vancocin Injection IV Infused Q24H WILLIE Infusion Cefepime HCl 2 gm/ Sodium 100 mls @ 200 mls/hr 05/28/25 14:00 05/30/25 14:49 Chloride IVPB Not Given Q12H [facility] IV Miscellaneous Supplies 1 each 05/21/25 09:15 Iv Access IV DIRECTED [facility] Levothyroxine Sodium 150 mcg 05/21/25 06:00 06/02/25 06:20 Levothyroxine 150 Mcg Tab PO 150 mcg DAILY@0600 WILLIE Administration Magnesium Hydroxide 30 ml 05/27/25 14:48 06/01/25 19:52 Milk Of Magnesia 30 Ml Cup PO 30 ml DAILY PRN PRN Administration Magnesium Oxide 400 mg 05/20/25 12:00 06/01/25 11:43 Magnesium Oxide 400 Mg Tab PO 400 mg DAILY@1200 [facility] Administration Melatonin 9 mg 05/21/25 20:00 06/01/25 19:50 Melatonin 3 Mg Tab PO 9 mg HS WILLIE Administration Mometasone Furoate 1 puff 05/21/25 08:30 06/02/25 08:17 Mometasone 220 Mcg 14 Dose Inhaler IH 1 puff DAILY WILLIE Administration Nystatin 500,000 units 05/22/25 17:00 06/02/25 08:00 Nystatin 888015 Units/5 Ml Susp 5ml Cup PO 500,000 units TID WILLIE Administration Oxycodone HCl 5 mg 05/20/25 11:50 06/02/25 08:01 Oxycodone 5 Mg Tab PO 5 mg Q4H PRN PRN Administration Polyethylene Glycol 17 gm 05/20/25 11:24 Polyethylene Glycol 3350 17 Gm Packet PO DAILY PRN PRN Constipation Pramipexole Dihydrochloride 0.125 mg 05/20/25 20:00 06/01/25 19:52 Pramipexole 0.25 Mg Tab PO 0.125 mg QPM WILLIE Administration Prednisone 30 mg 05/21/25 08:30 05/30/25 08:45 Prednisone 10 Mg Tab PO 30 mg DAILY WILLIE Administration Senna/Docusate Sodium 1 tab 05/23/25 20:00 06/02/25 08:02 Sennosides/Docusate Sodium Tab PO 1 tab BID WILLIE Administration Simvastatin 40 mg 05/20/25 20:00 06/01/25 19:51 Simvastatin 40 Mg Tab PO 40 mg HS WILLIE Administration Sodium Chloride 0 ml 05/20/25 07:13 06/02/25 08:58 Normal Saline Flush 10 Ml Syr IVP 10 ml PRN PRN Administration Sodium Chloride 0 ml 05/20/25 08:30 06/02/25 08:58 Normal Saline Flush 10 Ml Syr IVP 10 ml BID WILLIE Administration Sodium Chloride 0 ml 05/20/25 07:13 Normal Saline 10 Ml Vial IJ DIRECTED PRN Sodium Chloride 0 ml 05/28/25 11:06 05/29/25 02:55 Normal Saline Flush 10 Ml Syr IVP 40 ml PRN PRN Administration Tamsulosin HCl 0.4 mg 05/25/25 08:30 06/02/25 08:02 Tamsulosin 0.4 Mg Capcr PO 0.4 mg DAILY WILLIE Administration Torsemide 100 mg 05/29/25 08:30 05/30/25 08:47 Torsemide 100 Mg Tab PO 100 mg DAILY WILLIE Administration Trimethoprim/Sulfamethoxazole 1 tab 05/23/25 10:00 05/30/25 14:04 Sulfameth/Trimeth Ds Tab PO 1 tab MoWeFr WILLIE Administration PFSH Active Problems Active Problems: Problem Status Onset Code Venous ulcer of right leg Acute I83.019, L97.919 Ulcer of right lower extremity with fat layer exposed Acute L97.912 Hypocalcemia Acute Advanced care planning/counseling discussion Acute Z71.89 Palliative care encounter Acute Z51.5 Encephalopathy Resolved G93.40 Demand ischemia Acute I24.89 Flash pulmonary edema Acute J81.0 Acute hypoxemic respiratory failure Resolved J96.01 Chronic ulcer of right leg Chronic L97.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, N08 Pain in right leg Acute M79.604 Microcytic anemia Chronic D50.9 Hyperglycemia, drug-induced Acute R73.9, T50.905A Hyperkalemia Acute E87.5 Lupus nephritis Acute On deep vein thrombosis (DVT) prophylaxis Chronic Z79.899 Acute exacerbation of CHF (congestive heart failure) Resolved I50.9 Acute kidney injury superimposed on CKD Acute N17.9, N18.9 Hematuria Acute R31.9 GAVIN (acute kidney injury) Acute N17.9 Mild peripheral edema Acute R60.0 CHF (congestive heart failure) Chronic I50.9 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, L99 Leg wound, right Acute S81.801A Chronic wound Acute T14.8XXA 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 Headache Acute R51.9 Urinary tract infection Acute N39.0 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 Diverticulitis of sigmoid colon Acute K57.32 Amyloidosis Chronic Herniated nucleus pulposus, lumbar Chronic M51.26 Antiphospholipid syndrome Chronic Trigger thumb of right hand Acute M65.311 Trigger thumb of left hand Chronic M65.312 Nasal vestibulitis Acute 11/02/17 J34.89 Nasal congestion Acute 06/19/14 R09.81 Deviated nasal septum Acute 06/19/14 J34.2 Cephalgia Acute 11/20/14 R51 Constipation Chronic HTN (hypertension) Chronic GERD (gastroesophageal reflux disease) Chronic Diverticulitis of sigmoid colon Resolved Lupus Chronic Medical History Medical History Lupus (systemic lupus erythematosus) Hypertension Primary localized cutaneous amyloidosis Cellulitis of right lower limb Lymphocytopenia Normal colonoscopy [place] 11/13/[address] Natalya Styles at [facility], severe diverticular dz, repeat 10 years. mg Hypocalcemia Asthma Allergic rhinitis Abnormal mammogram of right breast Degenerative joint disease Hyperlipidemia Pericarditis Eczema Chest wall pain Insomnia Sciatica, left side Surgical History Surgical History 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) History of bone marrow biopsy S/P thyroidectomy H/O: hysterectomy Tonsillectomy Tobacco Smoking/Tobacco Use Status: Former Tobacco Use Alcohol Alcohol Intake: current Alcohol intake frequency: a few times a week Alcohol type: beer and wine Substance Use Substance use: Never Substance use type: does not use Vital Signs and Lab Results Vital Signs Most Recent Vital Signs in EMR: Most Recent Vital Signs Temp Pulse Resp BP Pulse Ox 36.6 C 60 17 128/55 L 99 06/02/25 07:17 06/02/25 07:17 06/02/25 07:17 06/02/25 07:17 06/02/25 07:17 Lab Results 06/01/25 06:23 06/01/25 06:23 Blood Type / Crossmatch: Antibody Screen NEGATIVE 05/17/25 Crossmatch See Detail 05/17/25 Complete Blood Count: WBC, (4.4-10.8) 8.47 10^3/uL 06/01/25, 06:23 RBC, (3.93-5.22) 3.16 10^6/uL L 06/01/25, 06:23 Hgb, (11.2-15.7) 8.7 g/dL L 06/01/25, 06:23 Hct, (36.0-46.0) 27.5 % L 06/01/25, 06:23 Plt Count, (130-400) 339 10^3/uL 06/01/25, 06:23 VBG Lactate, (<or=2.0) 2.8 mmol/L H* 05/16/25, 16:50 Complete Metabolic Panel: Sodium, (136-145) 140 mmol/L 06/01/25, 06:23 Potassium, (3.5-5.1) 3.7 mmol/L 06/01/25, 06:23 Chloride, (98-107) 100 mmol/L 06/01/25, 06:23 Carbon Dioxide, (21.0-32.0) 34.2 mmol/L H 06/01/25, 06:23 BUN, (7-18) 23 mg/dL H 06/01/25, 06:23 Creatinine, (0.55-1.02) 1.1 mg/dL H 06/01/25, 06:23 Est GFR (CKD-EPI 2020), (mL/min/1.73m2) 56.46 06/01/25, 06:23 Magnesium, (1.8-2.4) 2.3 mg/dL 05/31/25, 06:23 Calcium, (8.5-10.1) 7.7 mg/dL L 06/01/25, 06:23 Albumin, (3.4-5.0) 2.4 g/dL L 05/27/25, 06:32 Glucose, (74-106) 91 mg/dL 06/01/25, 06:23 C-Reactive Protein, (<or=0.5) 3.57 mg/dL H 05/28/25, 06:58 Liver Function Panel: ALT, (14-59) 15 U/L 05/27/25, 06:32 AST, (15-37) 15 U/L 05/27/25, 06:32 Coagulation Panel: INR, (0.9-1.1) 1.1 05/20/25, 07:58 PT, (9.1-11.1) 11.3 sec H 05/20/25, 07:58 APTT, (20.6-30.2) 26.8 sec 05/16/25, 05:26 Cardiac Panel: Troponin I, (<or=51) 83 ng/L H* 05/22/25 NT-Pro-B Natriuret Pep, (<300) > 22957 pg/mL H 05/20/25 Arterial Blood Gas: ABG Sample Site Right Radial 05/16/25, 01:25 ABG pH, (7.35-7.45) 7.41 05/16/25, 01:25 ABG pO2, (80-105) 117 mmHg H 05/16/25, 01:25 ABG pCO2, (35-45) 30 mmHg L 05/16/25, 01:25 ABG O2 Saturation, (95-98) % 05/16/25, 01:25 ABG HCO3, (22-26) 19 mmol/L L 05/16/25, 01:25 ABG Base Excess, (-2-3) -6 mmol/L L 05/16/25, 01:25 ABG Total CO2, (23-27) 18 mmol/L L 05/16/25, 01:25 Venous Blood Gas: VBG pH, (7.31-7.41) 7.42 H 05/20/25, 07:58 VBG pO2 41 mmHg 05/20/25, 07:58 VBG pCO2, (41-51) 31 mmHg L 05/20/25, 07:58 VBG O2 Saturation 74 % 05/20/25, 07:58 VBG HCO3, (23-28) 20 mmol/L L 05/20/25, 07:58 VBG Base Excess, (-2-3) -4 mmol/L L 05/20/25, 07:58 VBG Total CO2, (24-29) 19 mmol/L L 05/20/25, 07:58 Infectious Disease: SARS-CoV-2 (PCR), (Negative) Negative 05/20/25, 08:46 COVID-19 Source Nasopharynx 05/20/25, 08:46 Influenza Type A (PCR), (Negative) Negative 05/20/25, 08:46 Influenza Type B (PCR), (Negative) Negative 05/20/25, 08:46 RSV (PCR), (Negative) Negative 05/20/25, 08:46 Imaging and Studies Imaging and Studies Study information below may be from another EMR and interpreted by another provider. Please see original notes in EMR for more complete details. EKG Summary: 04/18/25: Exam: Resting ECG Reason for Exam: dyspnea Patient Location: E HR:71 bpm ECG Measurements Heart Rate 71 AXIS IN 143 P 38 QRSd 99 QRS -18 QT 428 T-20 QTc 466 Conclusion Sinus rhythm...normal P axis, V-rate 60- 99 Inferior infarct, old...Q >35mS, II III aVF I have reviewed and I agree with the emergency room physician's ECG interpretation. Stress Test Summary: 12/14/16: Impressions: Normal study after maximal exercise. Summary: 1. Myocardial perfusion imaging: No myocardial perfusion defects noted. 2. The calculated left ventricular ejection fraction after stress: 59%. LV global systolic function is normal. No left ventricular regional motion abnormality. 3. Stress ECG conclusions: The stress ECG is negative. Urena treadmill score: 6. This score predicts a low risk of cardiac events. 4. Stress: The target heart rate was achieved. There is a normal resting blood pressure. The patient experienced no chest pain during stress. Exercise capacity is above normal for age. Echocardiogram Summary: 04/18/25: Conclusion Normal left ventricular wall thickness and chamber size. Ejection fraction is 65%. Wall motion is normal Normal right ventricular size and function Moderately dilated left atrium. Normal right atrial size The aortic valve is trileaflet and mildly sclerotic with trace regurgitation Mild mitral and tricuspid regurgitation Estimated right ventricular systolic pressure is 50 mmHg Mildly dilated ascending aorta 3.78 cm Pulmonary Function Summary: 04/14/23: Pulmonary Function Test Result Indications: Centromere antibody positive Interpretation Spirometry: No airflow limitation. Low FVC. No significant bronchodilator response. Lung Volumes: Normal lung volumes. Diffusion Capacity: Normal diffusion. Airway Pressure: Normal airways resistance. Impression Normal pulmonary function. Low FVC likely pseudo-restriction from obesity. Clinical Correlation therefore is recommended. Anesthesia Assessment and Plan Anesthesia History Personal History: No History of Anesthesia Complications Family History: No Family History of Anesthesia Complications Exercise Tolerance Exercise Tolerance: Metabolic Equivalents<4 Pertinent Negatives Pertinent Negatives: No Symptoms of GERD, No Major Cardiovascular Symptoms or Complaints and No History of CVA/TIA Cardiac & Pulmonary Exam Cardiac Exam: Heart Murmur Present Pulmonary Exam: Clear Bilateral Breath Sounds Implantable Cardiac Device Does patient have a Pacemaker or an ICD?: No Airway Exam Known Difficult Airway: No Mallampati Class: 2 Mouth Opening: Normal (> 3cm) Thyromental Distance: Greater than 3 cm Neck Range of Motion: Full ROM Neck Circumference: Normal Teeth Condition: Removable Dentures/Plates Upper and Removable Dentures/Plates Lower ASA Classification ASA Score: ASA 3 Emergency Case?: No NPO Status NPO Status: NPO Clears >2 hours, Solids >8 hours Anesthesia Plan Resuscitation Status: DNR Fully Suspended During Perioperative Period Anesthesia Technique: General Anesthesia Airway Planned: Natural Airway Monitors Used: Standard Monitors Preoperative Comments:: 65 yo for debridement. Here recently for same, denies issues with anesthesia.
--- NOTE | 2025-06-02 11:19 | PGE_ITS ---
Date of Service Date of service: 06/02/25 Time of Service: 11:19 Assessment and Plan Assessment and plan (1) Cellulitis of leg, right: Status: Resolved Assessment and plan: -diagnosed during previous hospitalization around ulcer -course of PO doxy and amoxicillin stopped 05/26 -05/27 significantly worse, resumed cefepime and vanco -MRI 05/28 showing subcut abscess, but no osteomyelitis. I&D 05/29 in OR with gram stain showing no bacteria but culture did end up growing E. coli sens to cefazolin and CTX -Much improved after I&D, stopped cefepime/vanco, to cefazolin IV and oral doxycycline 05/30, will transition to PO doxy and cefpodoxime at discharge (2) Chronic ulcer of right leg: Status: Chronic Assessment and plan: - as noted above - MRI 05/28 showed deep fluid collection, no osteomyelitis -OR 05/29 for washout, pocket of infection deep per Dr. Zhang, she plans another procedure 06/02 -As above, dressing changed 05/31, looks healthy (3) Acute exacerbation of CHF (congestive heart failure): Status: Resolved Assessment and plan: -patient presented with elevated BP, hypoxia, and signs of pulmonary edema (SCAPE picture), admitted for diuresis. -associated respiratory failure resolved as of 05/24, has been hemodynamically stable. -last TTE on 04/19 showed EF 65%, normal wall motion, and dilated left atria -On IV furosemide BID 60mg until 05/28, -changed to oral torsemide at 100mg/day but held 05/29 pre-op. -Resumed 05/30 with good effect, cut dose to 60mg 05/31 -encouraged to ambulate and elevate. -Venous stasis and gabapentin also likely contributing to LE edema, cut gabapentin dose from 400 to 300 05/28 without worse pain, continued taper to 200mg 05/30 but more pain 05/31, will resume 300mg, continue comrpession (4) Cryoglobulinemic glomerulonephritis: Status: Chronic Assessment and plan: -Not Lupus Nephritis. Recent diagnosed s/p biopsy, treated with prednisone. -Renal function improved since previous admission -continue prednisone pending plan from Dr. Rolle from [facility] nephrology at decreased dose of 30mg daily. - Taper discussed with [facility]phrology Radha again 05/30, agree with 25mg, plan to send home on 20mg [facility]. -Continue PJP prophylaxis with 3xWeek TMP/SMX as well until off steroids, monitor potassium, no change (5) Microcytic anemia: Status: Chronic Assessment and plan: -chronic, a/w SLE, stable. Follow every 2-3 days. (6) Lupus (systemic lupus erythematosus): Assessment and plan: -This has been stable on hydroxycholoroquine. -Case reviewed with [facility] rheumatology fellow early in admission. No change in management. (7) Hypocalcemia: Status: Acute Assessment and plan: -Has trended down off oral calcium this admission, 05/30 resumed supplement with vitamin D. -This should be a chronic medication given her history of surgical hypoparathyroidism. Started back at [facility], can go to [facility] on discharge. (8) On deep vein thrombosis (DVT) prophylaxis: Status: Chronic Assessment and plan: -u/s negative for VTE, on exoxaparin for prophylaxis -Known hypercoagulable state, but had hemorrhagic pericardial effusion while on full anticoagulation with warfarin. Subjective Subjective Interval history since last seen: Patient states that she is doing well today. She understands she will be seen by podiatry to determine if she will have additional wound debridement in the OR. Otherwise she has no other complaints or concerns at this time. Exam Narrative Exam Narrative: Well-appearing older female sitting up in the chair no acute distress, ANO x 4, heart regular rhythm, lungs good auscultation bilaterally, abdomen soft, nontender, nondistended, significant improvement in bilateral lower extremity edema with right lower extremity bandaged and wrapped Objective Last Vital Signs Temp 97.9 F 06/02/25 11:18 Pulse 65 06/02/25 11:18 Resp 17 06/02/25 11:18 BP 132/60 06/02/25 11:18 Pulse Ox 98 06/02/25 11:18 Time Spent with Patient Time Spent with Patient: >50 minutes Time was spent: preparing to see the patient(eg.review tests), obtaining and/or reviewing separately otained hiistory, ordering medications,tests, procedures, referring, communicating with other health animal care assistant, indepentently interpreting results, counseling the patient and care coordination
--- NOTE | 2025-06-02 12:51 | PGE_ITS ---
Date of Service Date of service: 06/02/25 Time of Service: 11:30 Subjective Subjective Interval history since last seen: Patient seen bedside. Reports pain to the right lower extremity. No pedal complaints Exam Extrem Other: Right lower extremity physical exam: Derm: Full-thickness ulcers noted to the medial and lateral aspect of the right leg above the level of the malleolus no probe to bone or capsule noted the base is 100% necrotic/fibrotic with heavy slough. There is some drainage noted no malodor no active purulence no crepitus no bogginess no fluctuance noted. Anterior aspect of the right leg there is a large ecchymotic area with some skin slough and soft tissue necrosis. Vascular: DP nonpalpable to the right, PT is palpable 2/4 to the right. There is edema and venous skin changes noted to the right. MSK: Pain noted to the right leg. Objective Last Vital Signs Temp 97.9 F 06/02/25 11:18 Pulse 65 06/02/25 11:18 Resp 17 06/02/25 11:18 BP 132/60 06/02/25 11:18 Pulse Ox 98 06/02/25 11:18 Time Spent with Patient Time Spent with Patient: 25-34 minutes Time was spent: preparing to see the patient(eg.review tests), obtaining and/or reviewing separately otained hiistory, referring, communicating with other health client care consultant, indepentently interpreting results, counseling the patient and care coordination
[2025-06-02] MEDS: Lidocaine 1% Pres-Free 30 ML VIAL (13:31)
--- NOTE | 2025-06-02 13:35 | SKI_PTH ---
PATIENT: Francie Yusuf LOC: [id number]#:[id number] AGE/SX: 65/F ROOM: 210 RE05/20/[address]: Kolby Montejo MD : [id number] BED: A DIS: 06/06/2025 SPEC #: [id number] RECD: 06/02/25 18:17 STATUS: TERRANCE REQ #: [id number] BISI: 06/02/25 13:[address]: Kolby Montejo DEPT: Surgical Specimen RECD BY: Kerri Diaz ENTERED: 06/02/25 18:19 SP TYPE: CHIRAG [facility]ST[facility] DR[facility] Clif[facility]ujano[facility] T[facility]: 1 - SKIN BIOPSY(SHAVE/PUNCH) Procedures: SPECIAL STAIN 2 GROSS AND MICRO LEVEL 4 Comments: [id number]
--- NOTE | 2025-06-02 14:03 | W.PM.OP ---
Operative Note Operative Note PRE-OP DIAGNOSIS: Nonhealing ulcers right leg POST-OP DIAGNOSIS: same PROCEDURE: Excisional wound debridement, including fascia, right leg SURGEON: Kassy Zhang ANESTHESIA TYPE: Local By Surgeon (30 mL 1% Lidocaine plain) Refer to Anesthesia Record ESTIMATED BLOOD LOSS: 10 PATHOLOGY: other (Soft tissue biopsy lateral aspect, right leg) COMPLICATIONS: None Patient was transported to: PACU Patient's condition: stable Indications: 65-year-old female patient with nonhealing wound to the medial and lateral aspect of the right leg. Patient has had excisional wound debridement recently however ulcer persists. There is heavy necrotic tissue burden noted. Findings: 100% necrotic base medial and lateral ankle wounds, right leg. Medial ulcer: Predebridement measures 3.5 x 1.8 x 0.3 cm. Postdebridement measures 3.5 x 1.8 x 0.3 cm. Base is 100% granular post debridement, borders are regular, there is no erythema no edema no drainage no malodor no bogginess no crepitus or fluctuance or proximal streaking no probe to bone or capsule, no undermining or tunneling. Lateral ulcer: Predebridement measures 5.1 x 4.5 x 1.5. Postdebridement measures 5.6 x 4.6 x 1.6; postdebridement there is subcutaneous fat tissue exposed, the base is granular in areas, there is fascia exposed. There was tunneling and undermining, the fascia was reapproximated to close this space using 2-0 Vicryl. Procedure Description: Patient was brought to the operating room placed on the operating table in supine position, after induction of anesthesia, the right lower extremity wounds were anesthetized using 20 mL of 1% lidocaine plain preoperatively. The right lower extremity was then scrubbed, prepped and draped in the usual aseptic manner. Attention was directed to the medial aspect of the right leg where a full-thickness, necrotic ulceration was noted. A Versajet was used to excisionally debride and remove all necrotic, nonviable tissue including subcutaneous tissue and fascia. Upon achievement of healthy bleeding base, attention was directed to the lateral leg ulcer. The base was noted to be necrotic. Fascia is exposed at this wound. Using a Versajet, all necrotic, nonviable subcutaneous tissue and fascia was debrided. Healthy bleeding base was achieved. The undermining was excess floored no abscess was noted. The fascia was then reapproximated using 2-0 Vicryl which helped achieve closure of the space. Dressings were then applied with Adaptic, 4 x 4 bolster, 4 x 4, Kerlix and an Brady wrap to the anterior, medial and lateral leg ulcers. There is some necrotic tissue noted to the anterior aspect of the right leg. This was left intact. Recommend ABIs. This was discussed with the hospitalist. Patient will require a wound VAC placement. Will continue to monitor Date of Procedure: 06/02/25
--- NOTE | 2025-06-02 14:11 | W.ANESPOSTOP ---
Postoperative Evaluation Date, Time and Location Date Performed: 06/02/25 Time Performed: 14:11 Patient Location: Med/Surg Vital Signs Most Recent Imported Vital Signs: Most Recent Vital Signs Temp Pulse Resp BP Pulse Ox 36.6 C 62 16 116/54 L 96 06/02/25 14:09 06/02/25 14:09 06/02/25 14:09 06/02/25 14:09 06/02/25 14:09 Most Recent Vital Signs Temp Pulse Resp BP Pulse Ox 36.6 C 63 14 129/62 99 05/29/25 05:29 05/29/25 05:29 05/29/25 05:29 05/29/25 05:29 05/29/25 05:29 Pain Score Most Recent Pain Score: Most Recent Pain Score Pain Level [Right Lower Leg] 4 06/01/25 12:20 Pain Level [Bilateral Leg] 0 05/30/25 21:00 Pain Level 0 06/02/25 14:09 Assessment Mental Status: Awake (Alert & Oriented to Patient Baseline) Airway and Respiratory Function: Patent airway with normal (patient baseline) respiratory exam Cardiovascular Function: Hemodynamically Stable Hydration Status: Adequately Hydrated Nausea & Vomiting: No Nausea or Vomiting Pain: Pt. Denies Any Pain Peripheral Nerve Block: Patient did not receive a nerve block
[2025-06-02] MEDS: Sulfameth/Trimeth DS TAB 1 TAB PO (14:43)
[2025-06-02] MEDS: Magnesium Oxide 400 MG TAB PO (14:43)
[2025-06-02] MEDS: Polyethylene Glycol 3350 17 GM PACKET PO (15:25)
[2025-06-02] MEDS: Melatonin 3 MG TAB 9 MG PO (20:09)
[2025-06-02] MEDS: Pramipexole 0.25 MG TAB 0.125 MG PO (20:09)
[2025-06-02] MEDS: Simvastatin 40 MG TAB PO (20:10)
[2025-06-03] MEDS: oxyCODONE 5 MG TAB PO ×4 (00:43→19:41)
[2025-06-03 03:55] VITALS: BP 129/62; PULSE 67; RESP 15; TEMP 36.7; O2SAT 96
[2025-06-03] MEDS: ceFAZolin 2 GM/50 ML BAG IVPB ×3 (04:14→19:54)
[2025-06-03] MEDS: Acetaminophen 500 MG TAB 1000 MG PO ×3 (04:14→15:36)
[2025-06-03] MEDS: Levothyroxine 150 MCG TAB PO (06:06)
[2025-06-03 07:20] VITALS: BP 142/69; PULSE 67; RESP 16; TEMP 36.9; O2SAT 98
[2025-06-03] MEDS: Hydroxychloroquine 200 MG TAB PO (07:47)
[2025-06-03] MEDS: Gabapentin 300 MG CAP PO ×3 (07:47→19:52)
[2025-06-03] MEDS: Tamsulosin 0.4 MG CAPCR PO (07:47)
[2025-06-03] MEDS: Aspirin E.C. 81 MG TABEC PO (07:47)
[2025-06-03] MEDS: Doxycycline Hyclate 100 MG CAP PO ×2 (07:47→19:52)
[2025-06-03] MEDS: predniSONE 10 MG TAB 25 MG PO (07:47)
[2025-06-03] MEDS: Torsemide 20 MG TAB 60 MG PO (07:47)
[2025-06-03] MEDS: Sennosides/Docusate Sodium TAB 1 TAB PO ×2 (07:47→19:52)
[2025-06-03] MEDS: Enoxaparin 40 MG/0.4 ML SYR SC (07:48)
[2025-06-03] MEDS: Calcium 600mg/Vit D 200U TAB 1 TAB PO ×3 (07:48→19:52)
[2025-06-03] MEDS: Nystatin 500000 UNITS/5 ML SUSP 5ML CUP PO ×3 (07:48→19:52)
[2025-06-03] MEDS: Normal Saline Flush 10 ML SYR IVP ×3 (07:49→19:39)
[2025-06-03] MEDS: Mometasone 220 MCG 14 DOSE INHALER 1 PUFF IH (08:35)
[2025-06-03] MEDS: Magnesium Oxide 400 MG TAB PO (11:01)
[2025-06-03 12:04] VITALS: BP 130/70; PULSE 68; RESP 17; TEMP 36.8; O2SAT 98
--- NOTE | 2025-06-03 12:14 | W.PM.PROGNOT ---
Date of Service Date of service: 06/03/25 Time of Service: 12:14 Assessment and Plan Assessment and plan (1) Ulcer of right lower extremity with fat layer exposed: Status: Acute (2) Venous ulcer of right leg: Status: Acute (3) GAVIN (acute kidney injury): Status: Acute (4) CHF (congestive heart failure): Status: Chronic (5) Leg wound, right: Status: Acute (6) Chronic wound: Status: Acute Assessment and plan: Patient was seen bedside today. Patient has large ulcers medially and laterally and some skin necrosis to the anterior aspect of the right leg. She has hide OR debridement x 2. The fascia was reapproximated with Vicryl which is still visible from the wound. Dressings were left intact today to avoid pain. I did discuss the benefits of a wound VAC application in detail with the patient today. She was advised that this will be medically necessary to help with granulation tissue. Patient is amenable to trying the wound VAC. We will see how the wound VAC placement goes if she has severe pain, she may require some pain medication, I will defer this to the internal medicine team. I recommend wound VAC changes Monday by home health with a nonadherent layer to the right lateral leg ulcer. I discussed in detail with the patient that I would recommend consultation with dermatology since this wound has been present for more than a year, she does have amyloidosis and as well as lupus which may be contributing to the ulceration at this time as this does not appear to be a straightforward venous leg ulcer. Additionally she does not have significant enough skin changes or edema. Biopsy results are pending. Patient understands and agrees. Patient to follow-up with dermatology within 1 to 2 weeks patient to follow-up in office with us within 1 week of discharge. Will try to get in touch with [facility] dermatology Subjective Subjective Interval history since last seen: 65-year-old female patient seen bedside for right lower extremity nonhealing ulcers. She was to have a wound VAC in place however, she declined. Exam Extrem Other: Right lower extremity physical exam: Derm: Full-thickness ulcers noted to the medial and lateral aspect of the right leg above the level of the malleolus no probe to bone or capsule noted the base is 100% necrotic/fibrotic with heavy slough. There is some drainage noted no malodor no active purulence no crepitus no bogginess no fluctuance noted. Anterior aspect of the right leg there is a large ecchymotic area with some skin slough and soft tissue necrosis. Vascular: DP nonpalpable to the right, PT is palpable 2/4 to the right. There is edema and venous skin changes noted to the right. MSK: Pain noted to the right leg. Objective Last Vital Signs Temp 98.2 F 06/03/25 12:04 Pulse 68 06/03/25 12:04 Resp 17 06/03/25 12:04 BP 130/70 06/03/25 12:04 Pulse Ox 98 06/03/25 12:04 Time Spent with Patient Time Spent with Patient: >50 minutes Time was spent: preparing to see the patient(eg.review tests), obtaining and/or reviewing separately otained hiistory, referring, communicating with other health physician primary care sports medicine, indepentently interpreting results, counseling the patient, care coordination and other
--- NOTE | 2025-06-03 14:18 | PDOC.CMPRO ---
Date of service: 06/03/25 Time of Service: 14:18 Care Management Progress Note Progress Note Text Progress Note Text: Francie was awake and seated in a chair when CM met with her. [facility] had requested to meet with Francie today; however, during discussion with CM, they stated they are unable to accept her at their facility at this time citing their facility requires 'prep time' for her wound VAC and RX needs. CM reached out to follow up to obtain their anticipated plan for accepting Francie; awaiting response. Per report, it is recommended that Francie follow up with dermatology and initiate wound VAC therapy. Francie expressed that she is amenable to trying the wound VAC; RN was applying wound VAC at this time. Per the DON at [facility], their facility requires 48 hours to order a wound VAC for their facility. Francie shared that she believes HH services at discharge would be beneficial to provide in-home support and check in. CM provided education on the role and functions of home health services. Additionally, Francie reported that she is in need of funding for a new recliner in her home. CM advised her to reach out to [facility] for possible assistance with this request. CM will continue to follow up and coordinate the discharge plan accordingly. Discharge Potential Discharge Needs: PCP F/U Appt and Surgical F/U Appt Anticipated Barriers to Discharge: None Identified Patient/Family Education Needs: Review discharge instructions, discuss Ask Me Three Transportation: RCT RCT Transportation: Private vechicle Plan: Anticipate Francie will transfer to [facility] for wound care, once medically cleared. She will transport via private vehicle by RCT. She will follow up with her PCP, [facility] nephrology, dermatology surgical team and discharge plan of care. CM will continue to follow. Social Determinants of Health Screening Social Determinants of health last assessed in clinic: 06/03/25 Will the Patient Participate in the Screening?: Yes Do you worry about having a steady place to live?: no Problems where you live: no known problems In the past 12 months, have you had to go without electric, gas, oil or water in your home?: no 1. Within the past 12 months, we worried whether our food would run out before we got money to buy more.: Don't know/refused 2. Within the past 12 months, the food we bought just didn't last and we didn't have money to get more.: Don't know/refused Has lack of transportation kept you from medical appointments or from doing things needed for daily living?: no Has anyone in your life made you feel unsafe or unsupported?: choose not to answer How hard is it for you to pay for the very basics like food, housing, medical care, and heating? Would you say it is:: Not hard at all Do you want help finding or keeping work or a job?: I do not need or want help If for any reason you need help with day-to-day activities such as bathing, preparing meals, shopping, managing finances, etc., do you get the help you need?: I could use a little more help How often do you feel lonely or isolated from those around you?: Sometimes Do you speak a language other than [place] at home?: No Comments: patient feels she would benefit from having some home health assistance with dressing changes. Health Related Social Needs Health related social needs: problems with daily activities (Z73.9) and feeling lonely/isolated (Z60.8) Health related social needs details: patient would like to discuss options with case management.
[2025-06-03 15:15] VITALS: BP 136/59; PULSE 65; RESP 16; TEMP 36.5; O2SAT 97
--- NOTE | 2025-06-03 16:29 | W.PM.PROGNOT ---
Date of Service Date of service: 06/03/25 Time of Service: 16:29 Assessment and Plan Assessment and plan (1) Cellulitis of leg, right: Status: Resolved Assessment and plan: -diagnosed during previous hospitalization around ulcer -course of PO doxy and amoxicillin stopped 05/26 -05/27 significantly worse, resumed cefepime and vanco -MRI 05/28 showing subcut abscess, but no osteomyelitis. I&D 05/29 in OR with gram stain showing no bacteria but culture did end up growing E. coli sens to cefazolin and CTX -Much improved after I&D, stopped cefepime/vanco, to cefazolin IV and oral doxycycline 05/30, will transition to PO doxy and cefpodoxime at discharge (2) Chronic ulcer of right leg: Status: Chronic Assessment and plan: - as noted above - MRI 05/28 showed deep fluid collection, no osteomyelitis -OR 05/29 for washout, pocket of infection deep per Dr. Zhang, s/p procedure 06/02, see Dr. Stanley note for details on wound management (3) Acute exacerbation of CHF (congestive heart failure): Status: Resolved Assessment and plan: -patient presented with elevated BP, hypoxia, and signs of pulmonary edema (SCAPE picture), admitted for diuresis. -associated respiratory failure resolved as of 05/24, has been hemodynamically stable. -last TTE on 04/19 showed EF 65%, normal wall motion, and dilated left atria -On IV furosemide BID 60mg until 05/28, -changed to oral torsemide at 100mg/day but held 05/29 pre-op. -Resumed 05/30 with good effect, cut dose to 60mg 05/31 -encouraged to ambulate and elevate. -Venous stasis and gabapentin also likely contributing to LE edema, cut gabapentin dose from 400 to 300 05/28 without worse pain, continued taper to 200mg 05/30 but more pain 05/31, will resume 300mg, continue comrpession (4) Cryoglobulinemic glomerulonephritis: Status: Chronic Assessment and plan: -Not Lupus Nephritis. Recent diagnosed s/p biopsy, treated with prednisone. -Renal function improved since previous admission -continue prednisone pending plan from Dr. Rolle from [facility] nephrology at decreased dose of 30mg daily. - Taper discussed with [facility] Nephrology Radha again 05/30, agree with 25mg, plan to send home on [facility]. -Continue PJP prophylaxis with 3xWeek TMP/SMX as well until off steroids, monitor potassium, no change (5) Microcytic anemia: Status: Chronic Assessment and plan: -chronic, a/w SLE, stable. Follow every 2-3 days. (6) Lupus (systemic lupus erythematosus): Assessment and plan: -This has been stable on hydroxycholoroquine. -Case reviewed with [facility] rheumatology fellow early in admission. No change in management. (7) Hypocalcemia: Status: Acute Assessment and plan: -Has trended down off oral calcium this admission, 05/30 resumed supplement with vitamin D. -This should be a chronic medication given her history of surgical hypoparathyroidism. Started back at [facility], can go to [facility] on discharge. (8) On deep vein thrombosis (DVT) prophylaxis: Status: Chronic Assessment and plan: -u/s negative for VTE, on exoxaparin for prophylaxis -Known hypercoagulable state, but had hemorrhagic pericardial effusion while on full anticoagulation with warfarin. Subjective Subjective Interval history since last seen: Patient states that she is doing well since having her wounds debrided with Podiatry yesterday morning. She understands we are working on her discharge plan and has no complaints or concerns at this time. Exam Narrative Exam Narrative: Well-appearing older female sitting up in the chair no acute distress, ANO x 4, heart regular rhythm, lungs good auscultation bilaterally, abdomen soft, nontender, nondistended, significant improvement in bilateral lower extremity edema with right lower extremity covered in bandages Objective Last Vital Signs Temp 97.7 F 06/03/25 15:15 Pulse 65 06/03/25 15:15 Resp 16 06/03/25 15:15 BP 136/59 L 06/03/25 15:15 Pulse Ox 97 06/03/25 15:15 Time Spent with Patient Time Spent with Patient: >50 minutes Time was spent: preparing to see the patient(eg.review tests), obtaining and/or reviewing separately otained hiistory, ordering medications,tests, procedures, referring, communicating with other health care director rn, indepentently interpreting results, counseling the patient and care coordination
[2025-06-03 19:10] VITALS: BP 134/59; PULSE 65; RESP 14; TEMP 36.4; O2SAT 99
[2025-06-03] MEDS: Pramipexole 0.25 MG TAB 0.125 MG PO (19:40)
[2025-06-03] MEDS: Simvastatin 40 MG TAB PO (19:52)
[2025-06-03] MEDS: Melatonin 3 MG TAB 9 MG PO (19:52)
[2025-06-03 22:42] VITALS: BP 137/68; PULSE 65; RESP 16; TEMP 36.1; O2SAT 97
[2025-06-04] MEDS: oxyCODONE 5 MG TAB PO ×5 (01:09→19:51)
[2025-06-04 03:00] VITALS: BP 135/60; PULSE 61; RESP 16; TEMP 36.3; O2SAT 98
[2025-06-04] MEDS: ceFAZolin 2 GM/50 ML BAG IVPB ×3 (03:46→19:53)
[2025-06-04] MEDS: Normal Saline Flush 10 ML SYR IVP ×5 (03:47→19:54)
[2025-06-04] MEDS: Levothyroxine 150 MCG TAB PO (05:52)
[2025-06-04 07:20] VITALS: BP 136/51; PULSE 61; RESP 17; TEMP 36.4; O2SAT 98
[2025-06-04] MEDS: Gabapentin 300 MG CAP PO ×3 (07:59→19:53)
[2025-06-04] MEDS: Hydroxychloroquine 200 MG TAB PO (08:00)
[2025-06-04] MEDS: Aspirin E.C. 81 MG TABEC PO (08:00)
[2025-06-04] MEDS: Doxycycline Hyclate 100 MG CAP PO ×2 (08:00→19:53)
[2025-06-04] MEDS: predniSONE 10 MG TAB 25 MG PO (08:00)
[2025-06-04] MEDS: Torsemide 20 MG TAB 60 MG PO (08:00)
[2025-06-04] MEDS: Sennosides/Docusate Sodium TAB 1 TAB PO ×2 (08:00→19:51)
[2025-06-04] MEDS: Enoxaparin 40 MG/0.4 ML SYR SC (08:01)
[2025-06-04] MEDS: Nystatin 500000 UNITS/5 ML SUSP 5ML CUP PO ×2 (08:01→19:51)
[2025-06-04] MEDS: Calcium 600mg/Vit D 200U TAB 1 TAB PO ×3 (08:01→19:53)
[2025-06-04] MEDS: Tamsulosin 0.4 MG CAPCR PO (08:01)
[2025-06-04] MEDS: Mometasone 220 MCG 14 DOSE INHALER 1 PUFF IH (08:24)
--- NOTE | 2025-06-04 08:35 | PDOC.CMPRO ---
Date of service: 06/04/25 Time of Service: 17:14 Care Management Progress Note Progress Note Text Progress Note Text: Francie was sitting up in her chair. Per report, Francie is tolerating her wound vac well. [facility] Shana Knox reached out regarding Francie's plan of care. Additional SNF referral was sent to the [facility], with patient permission; No acceptance as they are full. Per [facility], they will accept Francie for STR. Per Jayda at [facility], they have ordered a wound vac and anticipate it will take 24 hours to arrive to their facility and will continue to communicate with Dr. Zhang for recommendation. CM will continue to follow. Discharge Potential Discharge Needs: PCP F/U Appt and Surgical F/U Appt Anticipated Barriers to Discharge: None Identified Patient/Family Education Needs: Review discharge instructions, discuss Ask Me Three Transportation: Private vehicle Plan: Anticipate Francie will transfer to [facility] for wound care, once medically cleared. She will transport via private vehicle by [facility]. She will follow up with her PCP, [facility] nephrology, dermatology surgical team and discharge plan of care. CM will continue to follow. Social Determinants of Health Screening Social Determinants of health last assessed in clinic: 06/04/25 Will the Patient Participate in the Screening?: Yes Do you worry about having a steady place to live?: no Problems where you live: no known problems In the past 12 months, have you had to go without electric, gas, oil or water in your home?: no 1. Within the past 12 months, we worried whether our food would run out before we got money to buy more.: Don't know/refused 2. Within the past 12 months, the food we bought just didn't last and we didn't have money to get more.: Don't know/refused Has lack of transportation kept you from medical appointments or from doing things needed for daily living?: no Has anyone in your life made you feel unsafe or unsupported?: choose not to answer How hard is it for you to pay for the very basics like food, housing, medical care, and heating? Would you say it is:: Not hard at all Do you want help finding or keeping work or a job?: I do not need or want help If for any reason you need help with day-to-day activities such as bathing, preparing meals, shopping, managing finances, etc., do you get the help you need?: I could use a little more help How often do you feel lonely or isolated from those around you?: Sometimes Do you speak a language other than Cambodian at home?: No Comments: patient feels she would benefit from having some home health assistance with dressing changes. Health Related Social Needs Health related social needs: problems with daily activities (Z73.9) and feeling lonely/isolated (Z60.8) Health related social needs details: patient would like to discuss options with case management.
[2025-06-04] MEDS: Acetaminophen 500 MG TAB 1000 MG PO ×2 (10:23→17:52)
[2025-06-04] MEDS: Sulfameth/Trimeth DS TAB 1 TAB PO (10:23)
--- NOTE | 2025-06-04 11:11 | CHAPLAIN ---
I visited with Francie this morning and she told me about the wound vac she has on. Previously she said nurses had told her it would be painful to have a wound vac and that she might need pain meds, so she said she declined the would vac. After the doctor met with her, Francie said she had a better idea of what to expect and agreed to the wound vac. Francie said she is looking forward to going to rehab and moving on from here. She appreciated the candle I brought her from last night's [facility] in which her partner, Goyo Doshi was remembered. Francie asked if she could go to the chapel for some time this morning, so with her nurse, KALA Burrell's help, I took Francie to the chapel.
[2025-06-04 11:40] VITALS: BP 140/62; PULSE 61; RESP 17; TEMP 36.5; O2SAT 95
--- NOTE | 2025-06-04 12:13 | PGE_ITS ---
Date of Service Date of service: 06/04/25 Time of Service: 12:13 Assessment and Plan Assessment and plan (1) Cellulitis of leg, right: Status: Resolved Assessment and plan: -diagnosed during previous hospitalization around ulcer -course of PO doxy and amoxicillin stopped 05/26 -05/27 significantly worse, resumed cefepime and vanco -MRI 05/28 showing subcut abscess, but no osteomyelitis. I&D 05/29 in OR with gram stain showing no bacteria but culture did end up growing E. coli sens to cefazolin and CTX -Much improved after I&D, stopped cefepime/vanco, to cefazolin IV and oral doxycycline 05/30, will transition to PO doxy and cefpodoxime at discharge (2) Chronic ulcer of right leg: Status: Chronic Assessment and plan: - as noted above - MRI 05/28 showed deep fluid collection, no osteomyelitis -OR 05/29 for washout, pocket of infection deep per Dr. Zhang, s/p procedure 06/02, see Dr. Stanley note for details on wound management (3) Acute exacerbation of CHF (congestive heart failure): Status: Resolved Assessment and plan: -patient presented with elevated BP, hypoxia, and signs of pulmonary edema (SCAPE picture), admitted for diuresis. -associated respiratory failure resolved as of 05/24, has been hemodynamically stable. -last TTE on 04/19 showed EF 65%, normal wall motion, and dilated left atria -On IV furosemide BID 60mg until 05/28, -changed to oral torsemide at 100mg/day but held 05/29 pre-op. -Resumed 05/30 with good effect, cut dose to 60mg 05/31 -encouraged to ambulate and elevate. -Venous stasis and gabapentin also likely contributing to LE edema, cut gabapentin dose from 400 to 300 05/28 without worse pain, continued taper to 200mg 05/30 but more pain 05/31, will resume 300mg, continue comrpession (4) Cryoglobulinemic glomerulonephritis: Status: Chronic Assessment and plan: -Not Lupus Nephritis. Recent diagnosed s/p biopsy, treated with prednisone. -Renal function improved since previous admission -continue prednisone pending plan from Dr. Rolle from [facility] nephrology at decreased dose of 30mg daily. - Taper discussed with [facility] Nephrology Radha again 05/30, agree with 25mg, plan to send home on 20mg [facility]. -Continue PJP prophylaxis with 3xWeek TMP/SMX as well until off steroids, monitor potassium, no change (5) Microcytic anemia: Status: Chronic Assessment and plan: -chronic, a/w SLE, stable. Follow every 2-3 days. (6) Lupus (systemic lupus erythematosus): Assessment and plan: -This has been stable on hydroxycholoroquine. -Case reviewed with [facility] rheumatology fellow early in admission. No change in management. (7) Hypocalcemia: Status: Acute Assessment and plan: -Has trended down off oral calcium this admission, 05/30 resumed supplement with vitamin D. -This should be a chronic medication given her history of surgical hypoparathyroidism. Started back at [facility], can go to [facility] on discharge. (8) On deep vein thrombosis (DVT) prophylaxis: Status: Chronic Assessment and plan: -u/s negative for VTE, on exoxaparin for prophylaxis -Known hypercoagulable state, but had hemorrhagic pericardial effusion while on full anticoagulation with warfarin. Subjective Subjective Interval history since last seen: Patient states that she is doing well and she is just waiting to hear about potential acceptance to [facility] facilities. Otherwise she has no complaints or concerns at this time. Exam Narrative Exam Narrative: Well-appearing older female sitting up in the chair no acute distress, ANO x 4, heart regular rhythm, lungs good auscultation bilaterally, abdomen soft, nontender, nondistended, significant improvement in bilateral lower extremity edema with right lower extremity covered in bandages, wound vac in place Objective Last Vital Signs Temp 97.7 F 06/04/25 11:40 Pulse 61 06/04/25 11:40 Resp 17 06/04/25 11:40 BP 140/62 06/04/25 11:40 Pulse Ox 95 06/04/25 11:40 Time Spent with Patient Time Spent with Patient: >50 minutes Time was spent: preparing to see the patient(eg.review tests), obtaining and/or reviewing separately otained hiistory, ordering medications,tests, procedures, referring, communicating with other health home health care social worker, indepentently interpreting results, counseling the patient and care coordination
[2025-06-04] MEDS: Magnesium Oxide 400 MG TAB PO (12:30)
[2025-06-04 16:41] VITALS: BP 136/62; PULSE 63; RESP 16; TEMP 36.5; O2SAT 96
[2025-06-04 19:30] VITALS: BP 137/54; PULSE 62; RESP 15; TEMP 36.5; O2SAT 98
[2025-06-04] MEDS: Pramipexole 0.25 MG TAB 0.125 MG PO (19:51)
[2025-06-04] MEDS: Melatonin 3 MG TAB 9 MG PO (19:51)
[2025-06-04] MEDS: Simvastatin 40 MG TAB PO (19:53)
[2025-06-04 23:24] VITALS: BP 130/55; PULSE 60; RESP 15; TEMP 36.2; O2SAT 98
[2025-06-05] MEDS: oxyCODONE 5 MG TAB PO ×4 (01:13→19:38)
[2025-06-05 03:13] VITALS: BP 136/58; PULSE 58; RESP 14; TEMP 36.3; O2SAT 98
[2025-06-05] MEDS: ceFAZolin 2 GM/50 ML BAG IVPB ×3 (04:56→19:38)
[2025-06-05] MEDS: Levothyroxine 150 MCG TAB PO (04:57)
[2025-06-05 08:09] VITALS: BP 142/56; PULSE 70; RESP 16; TEMP 36.3; O2SAT 100
[2025-06-05] MEDS: Calcium 600mg/Vit D 200U TAB 1 TAB PO ×3 (08:19→19:37)
[2025-06-05] MEDS: Torsemide 20 MG TAB 60 MG PO (08:19)
[2025-06-05] MEDS: Tamsulosin 0.4 MG CAPCR PO (08:19)
[2025-06-05] MEDS: Hydroxychloroquine 200 MG TAB PO (08:19)
[2025-06-05] MEDS: Gabapentin 300 MG CAP PO ×3 (08:19→19:37)
[2025-06-05] MEDS: Sennosides/Docusate Sodium TAB 1 TAB PO ×2 (08:19→19:37)
[2025-06-05] MEDS: predniSONE 10 MG TAB 25 MG PO (08:19)
[2025-06-05] MEDS: Enoxaparin 40 MG/0.4 ML SYR SC (08:20)
[2025-06-05] MEDS: Aspirin E.C. 81 MG TABEC PO (08:20)
[2025-06-05] MEDS: Normal Saline Flush 10 ML SYR IVP ×3 (08:20→19:39)
[2025-06-05] MEDS: Nystatin 500000 UNITS/5 ML SUSP 5ML CUP PO ×3 (08:21→19:38)
[2025-06-05] MEDS: Doxycycline Hyclate 100 MG CAP PO ×2 (08:21→19:37)
[2025-06-05] MEDS: Mometasone 220 MCG 14 DOSE INHALER 1 PUFF IH (09:00)
--- NOTE | 2025-06-05 10:25 | CMPROGNOTE_ITS ---
Date of service: 06/05/25 Time of Service: 13:57 Care Management Progress Note Progress Note Text Progress Note Text: Francei was sitting in the chair in her room when CM met with her. CM communicated the necessary wound VAC information to [facility]. Discharge to [facility] is pending the arrival of their wound VAC, which is anticipated to arrive tomorrow per facility staff. Per provider, Francie is to follow up in one week. She will be transported to [facility] and the new wound VAC will be applied at the [facility] as approved by the provider. Francie reports that she has been in contact with community resources ([employer], and [employer]) to get some of her home needs mets. CM will continue to follow. Discharge Potential Discharge Needs: PCP F/U Appt Anticipated Barriers to Discharge: Other (SNF wound vac availability ) Patient/Family Education Needs: Review discharge instructions, discuss Ask Me Three Transportation: [facility] Transportation: Private vechicle Plan: Anticipate Francie will transfer to [facility] for wound care, once medically cleared. She will transport via private vehicle by [facility]. She will follow up with her PCP, [facility] nephrology, dermatology surgical team and discharge plan of care. CM will continue to follow. Social Determinants of Health Screening Social Determinants of health last assessed in clinic: 06/05/25 Will the Patient Participate in the Screening?: Yes Do you worry about having a steady place to live?: no Problems where you live: no known problems In the past 12 months, have you had to go without electric, gas, oil or water in your home?: no 1. Within the past 12 months, we worried whether our food would run out before we got money to buy more.: Don't know/refused 2. Within the past 12 months, the food we bought just didn't last and we didn't have money to get more.: Don't know/refused Has lack of transportation kept you from medical appointments or from doing things needed for daily living?: no Has anyone in your life made you feel unsafe or unsupported?: choose not to a nswer How hard is it for you to pay for the very basics like food, housing, medical care, and heating? Would you say it is:: Not hard at all Do you want help finding or keeping work or a job?: I do not need or want help If for any reason you need help with day-to-day activities such as bathing, preparing meals, shopping, managing finances, etc., do you get the help you need?: I could use a little more help How often do you feel lonely or isolated from those around you?: Sometimes Do you speak a language other than Iranian at home?: No Comments: patient feels she would benefit from having some home health assistance with dressing changes. Health Related Social Needs Health related social needs: problems with daily activities (Z73.9) and feeling lonely/isolated (Z60.8) Health related social needs details: patient would like to discuss options with case management.
[2025-06-05 11:38] VITALS: BP 152/64; PULSE 62; RESP 16; TEMP 36.1; O2SAT 97
--- NOTE | 2025-06-05 12:50 | PGE_ITS ---
Date of Service Date of service: 06/05/25 Time of Service: 12:51 Assessment and Plan Assessment and plan (1) Cellulitis of leg, right: Status: Resolved Assessment and plan: -diagnosed during previous hospitalization around ulcer -course of PO doxy and amoxicillin stopped 05/26 -05/27 significantly worse, resumed cefepime and vanco -MRI 05/28 showing subcut abscess, but no osteomyelitis. I&D 05/29 in OR with gram stain showing no bacteria but culture did end up growing E. coli sens to cefazolin and CTX -Much improved after I&D, stopped cefepime/vanco, to cefazolin IV and oral doxycycline 05/30, will transition to PO doxy and cefpodoxime at discharge (2) Chronic ulcer of right leg: Status: Chronic Assessment and plan: - as noted above - MRI 05/28 showed deep fluid collection, no osteomyelitis -OR 05/29 for washout, pocket of infection deep per Dr. Zhang, s/p procedure 06/02, see Dr. Stanley note for details on wound management (3) Acute exacerbation of CHF (congestive heart failure): Status: Resolved Assessment and plan: -patient presented with elevated BP, hypoxia, and signs of pulmonary edema (SCAPE picture), admitted for diuresis. -associated respiratory failure resolved as of 05/24, has been hemodynamically stable. -last TTE on 04/19 showed EF 65%, normal wall motion, and dilated left atria -On IV furosemide BID 60mg until 05/28, -changed to oral torsemide at 100mg/day but held 05/29 pre-op. -Resumed 05/30 with good effect, cut dose to 60mg 05/31 -encouraged to ambulate and elevate. -Venous stasis and gabapentin also likely contributing to LE edema, cut gabapentin dose from 400 to 300 05/28 without worse pain, continued taper to 200mg 05/30 but more pain 05/31, will resume 300mg, continue comrpession (4) Cryoglobulinemic glomerulonephritis: Status: Chronic Assessment and plan: -Not Lupus Nephritis. Recent diagnosed s/p biopsy, treated with prednisone. -Renal function improved since previous admission -continue prednisone pending plan from Dr. Rolle from [facility] nephrology at decreased dose of 30mg daily. - Taper discussed with [facility] Nephrology Radha again 05/30, agree with 25mg, plan to send home on 20mg [facility]. -Continue PJP prophylaxis with 3xWeek TMP/SMX as well until off steroids, monitor potassium, no change (5) Microcytic anemia: Status: Chronic Assessment and plan: -chronic, a/w SLE, stable. Follow every 2-3 days. (6) Lupus (systemic lupus erythematosus): Assessment and plan: -This has been stable on hydroxycholoroquine. -Case reviewed with [facility] rheumatology fellow early in admission. No change in management. (7) Hypocalcemia: Status: Acute Assessment and plan: -Has trended down off oral calcium this admission, 05/30 resumed supplement with vitamin D. -This should be a chronic medication given her history of surgical hypoparathyroidism. Started back at [facility], can go to [facility] on discharge. (8) On deep vein thrombosis (DVT) prophylaxis: Status: Chronic Assessment and plan: -u/s negative for VTE, on exoxaparin for prophylaxis -Known hypercoagulable state, but had hemorrhagic pericardial effusion while on full anticoagulation with warfarin. Subjective Subjective Interval history since last seen: Patient understands that she is waiting for health and rehab to obtain wound care equipment including wound VAC. Otherwise she has no other complaints or concerns at this time. Exam Narrative Exam Narrative: Well-appearing older female sitting up in the chair no acute distress, ANO x 4, heart regular rhythm, lungs good auscultation bilaterally, abdomen soft, nontender, nondistended, significant improvement in bilateral lower extremity edema with right lower extremity covered in bandages, wound vac in place Objective Last Vital Signs Temp 97.0 F L 06/05/25 11:38 Pulse 62 06/05/25 11:38 Resp 16 06/05/25 11:38 BP 152/64 H 06/05/25 11:38 Pulse Ox 97 06/05/25 11:38 Time Spent with Patient Time Spent with Patient: >50 minutes Time was spent: preparing to see the patient(eg.review tests), obtaining and/or reviewing separately otained hiistory, ordering medications,tests, procedures, referring, communicating with other health respiratory care instructor, indepentently interpreting results, counseling the patient and care coordination
[2025-06-05] MEDS: Acetaminophen 500 MG TAB 1000 MG PO ×2 (13:01→19:36)
[2025-06-05] MEDS: Magnesium Oxide 400 MG TAB PO (13:01)
[2025-06-05 15:06] VITALS: BP 135/62; PULSE 63; RESP 16; TEMP 35.9; O2SAT 96
[2025-06-05] MEDS: Melatonin 3 MG TAB 9 MG PO (19:36)
[2025-06-05] MEDS: Pramipexole 0.25 MG TAB 0.125 MG PO (19:37)
[2025-06-05] MEDS: Simvastatin 40 MG TAB PO (19:37)
[2025-06-05 19:48] VITALS: BP 127/67; PULSE 61; RESP 18; TEMP 36.7; O2SAT 97
[2025-06-05 23:38] VITALS: BP 123/47; PULSE 61; RESP 18; TEMP 36.6; O2SAT 96
[2025-06-06] MEDS: oxyCODONE 5 MG TAB PO ×3 (01:42→09:33)
[2025-06-06] MEDS: ceFAZolin 2 GM/50 ML BAG IVPB ×2 (03:43→13:04)
[2025-06-06 03:49] VITALS: BP 148/58; PULSE 62; RESP 17; TEMP 36; O2SAT 95
[2025-06-06] MEDS: Levothyroxine 150 MCG TAB PO (05:42)
[2025-06-06 08:06] VITALS: BP 135/59; PULSE 66; RESP 18; TEMP 36.8; O2SAT 98
[2025-06-06] MEDS: Mometasone 220 MCG 14 DOSE INHALER 1 PUFF IH (08:10)
--- NOTE | 2025-06-06 09:31 | PDOC.CMDIS ---
Date of service: 06/06/25 Time of Service: 12:40 LACE Index Scoring Tool Questions: Length of Stay (in days): 14 or more Was the patient admitted via the E.D.?: Yes Comorbidities: Congestive Heart Failure E.D. Visits: 5 Answers: Total Score: 16 Risk of Readmission: High Risk Care Management Discharge Plan Reason for Hospitalization: CHF Exacerbation, Acute Hypoxic Resp Failure Discharge Plan: Francie will transfer to [facility] for wound care today. She will transport via private vehicle by [facility]. She will follow up with her PCP, [facility] nephrology, dermatology surgical team and discharge plan of care. Francie will discharge with a sterile dressing and new wound vac will be placed at [facility]. [facility] Nelli is aware of this patients arrival time and mode of transportation. Patient/Family Education Needs: Review of discharge instruction, activity, limitation, and plan of care. Discuss ask me three. SDOH Health Related Social Needs: Health related social needs daily activities lonely/isolated Health related social needs details patient would like to discuss options with case management. Health related social needs details: patient would like to discuss options with case management. Referrals and interventions: case management assistance requested
[2025-06-06] MEDS: Acetaminophen 500 MG TAB 1000 MG PO (09:33)
[2025-06-06] MEDS: Enoxaparin 40 MG/0.4 ML SYR SC (10:14)
[2025-06-06] MEDS: Nystatin 500000 UNITS/5 ML SUSP 5ML CUP PO (10:15)
[2025-06-06] MEDS: Calcium 600mg/Vit D 200U TAB 1 TAB PO (10:15)
[2025-06-06] MEDS: predniSONE 10 MG TAB 25 MG PO (10:15)
[2025-06-06] MEDS: Torsemide 20 MG TAB 60 MG PO (10:16)
[2025-06-06] MEDS: Doxycycline Hyclate 100 MG CAP PO (10:16)
[2025-06-06] MEDS: Aspirin E.C. 81 MG TABEC PO (10:16)
[2025-06-06] MEDS: Tamsulosin 0.4 MG CAPCR PO (10:16)
[2025-06-06] MEDS: Sennosides/Docusate Sodium TAB 1 TAB PO (10:16)
[2025-06-06] MEDS: Gabapentin 300 MG CAP PO (10:16)
[2025-06-06] MEDS: Hydroxychloroquine 200 MG TAB PO (10:16)
[2025-06-06] MEDS: Normal Saline Flush 10 ML SYR IVP (10:17)
[2025-06-06] MEDS: Sulfameth/Trimeth DS TAB 1 TAB PO (10:20)
[2025-06-06 11:14] VITALS: BP 132/59; PULSE 63; RESP 16; TEMP 36.5; O2SAT 97
--- NOTE | 2025-06-06 12:14 | PCNE_ITS ---
Date of service: 06/06/25 Time of Service: 12:14 History of Present Illness Narrative: Francie was seen in her hospital room for Palliative f/u. She has been in the hospital since 05/20/25 (17 days). She was initially admitted for CHF exacerbation and RLE cellulitis. She was found to have RLE abscess that was drained and now she has a wound vac in place. Her plan is for discharge to [facility] for STR. She eventually plans to return to her home with her cats. She had difficulty with oral thrush but she reports that it is improving. Her appetite is decreased. Food does not taste good to her. She thinks this is related to the thrush. She is ambulating outside of her room. She has RLE pain that is controlled with oxycodone and APAP. Assessment and Plan Assessment and plan (1) Cellulitis of leg, right: Status: Resolved Assessment and plan: She was noted to have deep fluid collection, went to OR for debridement, now with wound vac in place. On Abx. (2) Chronic ulcer of right leg: Status: Chronic Assessment and plan: - as above - MRI 05/28 showed deep fluid collection, no osteomyelitis -OR 05/29 for washout, pocket of infection deep per Dr. Zhang, s/p procedure 06/02, see Dr. Stanley note for details on wound management (3) Acute exacerbation of CHF (congestive heart failure): Status: Resolved Assessment and plan: Not in acute exacerbation. (4) Cryoglobulinemic glomerulonephritis: Status: Chronic (5) Microcytic anemia: Status: Chronic Assessment and plan: -chronic, a/w SLE, stable. (6) Lupus (systemic lupus erythematosus): Assessment and plan: -This has been stable on hydroxycholoroquine. No change in management. (7) Hypocalcemia: Status: Acute (8) Advanced care planning/counseling discussion: Status: Acute Assessment and plan: Reviewed at her last Palliative visit. She is a DNR/DNI, COLST on file. She has named HCA to include: 1. Deya Simms, sister, lives in [place] ([phone]) 2. Reginaldo Mendez, brother, lives in [place], [place] ([phone]) Others who may be consulted: Sachin Simms, brother, [place], [place] ([phone]) She will be discharged to the rehab for STR and wound care. She plans to discharge back home after her stay. (9) Palliative care encounter: Status: Acute Assessment and plan: F/u after discharge. Review of Systems Narrative: PER HPI PFSH All Active Problems (Updated 05/30/25 @ 14:25 by Daniel Hinkle) Venous ulcer of right leg (Acute) Ulcer of right lower extremity with fat layer exposed (Acute) Hypocalcemia (Acute) Advanced care planning/counseling discussion (Acute) Palliative care encounter (Acute) Demand ischemia (Acute) Flash pulmonary edema (Acute) Chronic ulcer of right leg (Chronic) Cryoglobulinemic glomerulonephritis (Chronic) Pain in right leg (Acute) Microcytic anemia (Chronic) Hyperglycemia, drug-induced (Acute) Hyperkalemia (Acute) Lupus nephritis (Acute) On deep vein thrombosis (DVT) prophylaxis (Chronic) Acute kidney injury superimposed on CKD (Acute) Hematuria (Acute) GAVIN (acute kidney injury) (Acute) Mild peripheral edema (Acute) CHF (congestive heart failure) (Chronic) Cutaneous amyloidosis (Acute) Leg wound, right (Acute) Chronic wound (Acute) Left knee DJD (Chronic) Depo-medrol injection: 02/27/25; 11/28/2024; 08/29/24; 05/30/2024; 02/26/2024; 11/27/2023; 08/17/23 Headache (Acute) Urinary tract infection (Acute) Colovaginal fistula (Acute) Diverticulitis of sigmoid colon (Acute) Amyloidosis (Chronic) Herniated nucleus pulposus, lumbar (Chronic) Antiphospholipid syndrome (Chronic) Trigger thumb of right hand (Acute) Trigger thumb of left hand (Chronic) Nasal vestibulitis (Acute 11/02/17) Nasal congestion (Acute 06/19/14) Deviated nasal septum (Acute 06/19/14) Cephalgia (Acute 11/20/14) Constipation (Chronic) as above HTN (hypertension) (Chronic) GERD (gastroesophageal reflux disease) (Chronic) stable Lupus (Chronic) Medical History Lupus (systemic lupus erythematosus) Hypertension Primary localized cutaneous amyloidosis Cellulitis of right lower limb Lymphocytopenia Normal colonoscopy [place] 11/13/[address] Natalya Styles at [facility], severe diverticular dz, repeat 10 years. mg Hypocalcemia Asthma Allergic rhinitis Abnormal mammogram of right breast Degenerative joint disease Hyperlipidemia Pericarditis Eczema Chest wall pain Insomnia Sciatica, left side Surgical History 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) History of bone marrow biopsy S/P thyroidectomy H/O: hysterectomy Tonsillectomy Social History Smoking/Tobacco Use Status: Former Tobacco Use Quit Date: 08/14/99 Smoking risk assessment performed?: Yes Alcohol Intake: current Alcohol Intake frequency: a few times a week Alcohol type: beer and wine Drug use: Never Substance use type: does not use Household members: none Housing: house Current gender identity: female Do you feel safe at home: Yes Do you feel safe in your relationship?: Yes Additional Social history: Lives alone, formerly cared for older man who in 2024. 2 cats. no travel. Exam Narrative Exam Narrative: General: pleasant, 65 year old female, appears older than stated age, sitting up in the chair in her room with her meal tray in front of her. HEENT: normocephalic, atraumatic, EOMI, mmm, thrush is healing neck: supple Respiratory: respirations appear even and unlabored at rest. Ext: BLE edema noted, RLE wrapped with wound vac in place. Moves all 4 extremities freely. Results Last Vital Signs Temp 36.5 C 06/06/25 11:14 Pulse 63 06/06/25 11:14 Resp 16 06/06/25 11:14 BP 132/59 L 06/06/25 11:14 Pulse Ox 97 06/06/25 11:14 Labs 06/01/25 06:23 06/01/25 06:23 Time Spent Time Spent with Patient Time Spent(min): 68
--- NOTE | 2025-06-06 12:16 | W.PM.DS.N ---
Date of service: 06/06/25 Time of Service: 12:16 DS: Diagnosis Discharge Diagnosis (1) Cellulitis of leg, right: Status: Resolved Asessment and Plan: -diagnosed during previous hospitalization around ulcer -course of PO doxy and amoxicillin stopped 05/26 -05/27 significantly worse, resumed cefepime and vanco -MRI 05/28 showing subcut abscess, but no osteomyelitis. I&D 05/29 in OR with gram stain showing no bacteria but culture did end up growing E. coli sens to cefazolin and CTX -Much improved after I&D, stopped cefepime/vanco, to cefazolin IV and oral doxycycline 05/30, will transition to PO doxy and cefpodoxime at discharge (2) Chronic ulcer of right leg: Status: Chronic Asessment and Plan: - as noted above - MRI 05/28 showed deep fluid collection, no osteomyelitis -OR 05/29 for washout, pocket of infection deep per Dr. Zhang, s/p procedure 06/02 - follow up with Dr Zhang in clinic in 2 weeks (3) Acute exacerbation of CHF (congestive heart failure): Status: Resolved Asessment and Plan: patient presented with elevated BP, hypoxia, and signs of pulmonary edema (SCAPE picture), admitted for diuresis. -associated respiratory failure resolved as of 05/24, has been hemodynamically stable. -last TTE on 04/19 showed EF 65%, normal wall motion, and dilated left atria -On IV furosemide BID 60mg until 05/28, -changed to oral torsemide at 100mg/day but held 05/29 pre-op. -Resumed 05/30 with good effect, cut dose to 60mg 05/31 -encouraged to ambulate and elevate. -Venous stasis and gabapentin also likely contributing to LE edema, cut gabapentin dose from 400 to 300 05/28 without worse pain, continued taper to 200mg 05/30 but more pain 05/31, will resume 300mg, continue comrpession (4) Cryoglobulinemic glomerulonephritis: Status: Chronic Asessment and Plan: -Not Lupus Nephritis. Recent diagnosed s/p biopsy, treated with prednisone. -Renal function improved since previous admission -continue prednisone pending plan from Dr. Rolle from [facility] nephrology at decreased dose of 30mg daily. - Taper discussed with [facility] Nephsammy Garcia again 05/30, agree with 25mg, plan to send home on 20mg [facility]. -Continue PJP prophylaxis with 3xWeek TMP/SMX as well until off steroids, monitor potassium, no change (5) Microcytic anemia: Status: Chronic Asessment and Plan: -chronic, a/w SLE, stable. Follow every 2-3 days (6) Lupus (systemic lupus erythematosus): Asessment and Plan: -This has been stable on hydroxycholoroquine. -Case reviewed with [facility] rheumatology fellow early in admission. No change in management. (7) Hypocalcemia: Status: Acute Asessment and Plan: -Has trended down off oral calcium this admission, 05/30 resumed supplement with vitamin D. -This should be a chronic medication given her history of surgical hypoparathyroidism. Started back at TID, can go to BID on discharge. (8) On deep vein thrombosis (DVT) prophylaxis: Status: Chronic Asessment and Plan: -u/s negative for VTE, on exoxaparin for prophylaxis while hospitalized -Known hypercoagulable state, but had hemorrhagic pericardial effusion while on full anticoagulation with warfarin. Discharge Plan Disposition Patient Disposition: Assisted Facility(SNF) Condition: Improving Discharge Details Reason For Visit: CHF Exacerbation, Acute Hypoxic Resp Failure Admit Date/Time: 05/20/25 10:01 Admit Provider: Kolby Montejo Attending Provider: Kolby Montejo Primary Care Provider: Randy Mauricio Hospital Course Hospital Course: 65-year-old female with a past medical history of lupus, cryoglobulin nephritis, CKD, chronic ulcer of the right leg with recent hospitalization for severe sepsis and cellulitis presents back to the emergency department less than 24 hours after being discharged for sudden onset shortness of breath. In the emergency department the patient was noted as having elevated blood pressure up to 205/100, hypoxia requiring up to 4 L nasal cannula. She had elevated troponins but non-ischemic EKG. She was treated with NTG drip and IV furosemide, and was breifly on BiPAP. Her CHF improved with good diuresis and her hypoxic respiratory failure resolved by 05/24. On chart review it was noted her furosemide 20mg BID had been held at previous admission and never restarted. It was also noted her labetolol was only 100mg daily rather than BID. Her renal function had acutally improved from discharge from 2.0 to 1.3. She did have acute encephalopathy after being given zolpidem to help her sleep. This cleared, and zolpidem was added to her allergy list. Her amoxicillin and doxycline orally were continue until 05/26. She was being prepared for discharge 05/27, but increased redness tracking up her right leg and discharge from her lateral ulcer was noted and she was restared on cefepime and vancomycin IV. MRI was done which did not show osteomyelitis but did show a subcutaneous abscess deep to her ulcer. She was taken for I&D and debridement in the OR 05/[address] Zhang. Her infeciton improved post-op and she was transitioned to cefazolin and doxycycline 05/30. The case was reviewed with nephrology 05/30 who agreed with further taper of her prednisone to 25mg. Plan to discharge the following week on 20 mg. She has follow up with nephrology 06/17. To improve her LE edema, gabapentin was decreased from 400mg TID to 300mg TID. She was tried on 200mg but she had more pain. At time of discharge, she is on oral antibiotics for the leg, as well as oral antibiotics for PJP prophylaxis. She has a wound vac on her surgical site and is to follow up with Dr Zhang. Home Meds and New Rx's Prescriptions: New prednisone 10 mg Tablet 25 mg PO DAILY Qty: 0 0RF tamsulosin 0.4 mg Capsule 0.4 mg PO DAILY Qty: 0 0RF cefpodoxime 200 mg tablet 400 mg PO Q12H Qty: 28 0RF Rx Instructions: must administer with a meal/food Continued albuterol sulfate [ProAir HFA] 90 mcg/actuation HFA aerosol inhaler 2 puff Inhalation Q6H PRN (Reason: shortness of breath) hydroxychloroquine 200 MG tablet 200 mg PO DAILY Qty: 30 calcium carbonate [Oyster Shell Calcium] 500 mg calcium (1,250 mg) Tablet 500 mg PO DAILY acetaminophen 500 mg tablet 1,000 mg PO Q8H PRN (Reason: pain) Qty: 90 3RF pramipexole 0.125 mg tablet 0.25 mg PO QPM Patient Comments: TAKE TWO TABLETS BY MOUTH EVERY EVENING AT BEDTIME FOR RESTLESS LEGS aspirin 81 mg Tablet,Delayed Release (Dr/Ec) 81 mg PO DAILY sulfamethoxazole-trimethoprim 800-160 mg tablet 1 tab PO .COMPLEX Patient Comments: TAKE 1 TABLET BY MOUTH THREE TIMES WEEKLY ON MONDAY, MONDAY, AND MONDAY FOR 30 DAYS Rx Instructions: 1 tab orally monday, monday and monday; cholecalciferol (vitamin D3) 1,250 mcg (50,000 unit) capsule 1,250 mcg PO .COMPLEX Patient Comments: TAKE ONE CAPSULE BY MOUTH THREE TIMES WEEKLY FOR 5 WEEKS Rx Instructions: 1,250 mcg orally 3 times a week; simvastatin 40 mg tablet 40 mg PO DAILY fluticasone furoate [Arnuity Ellipta] 100 mcg/actuation blister with device 1 inh INHALATION DAILY Patient Comments: INHALE ONE PUFF BY MOUTH EVERY DAY magnesium oxide 500 mg magnesium tablet 500 mg PO DAILY Patient Comments: TAKE ONE TABLET BY MOUTH EVERY DAY levothyroxine 150 mcg tablet 150 mcg PO DAILY Patient Comments: TAKE ONE TABLET BY MOUTH EVERY DAY doxycycline hyclate 100 mg Capsule 100 mg PO BID Qty: 14 0RF prednisone 10 mg tablet 30 mg PO DAILY Qty: 120 0RF Changed gabapentin 400 mg capsule 300 mg PO BID Qty: 0 0RF Patient Comments: TAKE ONE CAPSULE BY MOUTH TWICE A DAY Discontinued amlodipine 2.5 mg tablet 2.5 mg PO DAILY prednisone 20 mg tablet 40 mg PO DAILY Patient Comments: TAKE TWO TABLETS BY MOUTH EVERY DAY FOR 30 DAYS labetalol 100 mg tablet 100 mg PO DAILY amoxicillin 875 mg Tablet 875 mg PO BID Qty: 14 0RF Discharge Instructions Activity:: Activity as Tolerated Equipment/Supplies:: No Equipment Needed Diet:: As Tolerated Discharge Orders Discharge Orders: Discharge Order (Routine); Ordered 06/06/25 Ordered By: Rob Farah DS: Summary Time Spent with Patient providing and/or coordinating discharge services: Greater than 30 minutes Status at Discharge Functional status at discharge: independent ambulation Overall status at discharge: patient is progressing back to baseline Mental Status: mental status grossly normal Speech and Movement: speech and movement normal Mood: congruent mood Affect: normal affect Quality:SDOH Health Related Social Needs: Health related social needs daily activities lonely/isolated Health related social needs details patient would like to discuss options with case management. Health related social needs details: patient would like to discuss options with case management. Referrals and interventions: case management assistance requested Exam Narrative Exam Narrative: General: This is an obese, chronically ill-appearing woman in no acute distress HEENT: Normocephalic, atraumatic CV: RRR. BLE severe edema. Resp: Mild bibasilar rales Abd: soft, NTND MSK: voluntary motion x4. Right lower leg with wound vac in place. Neuro: awake, alert, no focal deficits Psych Mental Status: mental status grossly normal Speech and Movement: speech and movement normal Mood: congruent mood Affect: normal affect DS: Data Vitals/I&O Vitals and I&O: Vital Signs Temperature 36.5 C 06/06/25 11:14 Temperature Source Temporal Artery Scan 06/06/25 11:14 Pulse 63 06/06/25 11:14 Pulse 70 06/02/25 16:37 Respiratory Rate 16 06/06/25 11:14 Respiratory Effort Short of Breath, Labored, Tripod, Incrsd Work of Breathing 05/20/25 08:51 Respiratory Depth Shallow 05/20/25 08:51 Respiratory Pattern Irregular 05/20/25 08:51 Blood Pressure 132/59 L 06/06/25 11:14 Blood Pressure Mean 83 06/06/25 11:14 Blood Pressure Position Sitting 05/20/25 07:12 Pulse Oximetry 97 06/06/25 11:14 Respiratory End-tidal CO2 39 05/29/25 11:46 Oxygen Delivery Method Room Air 06/06/25 11:14 Oxygen Flow Rate 0 06/06/25 11:14 Fraction of Inspired Oxygen (FIO2) 21 05/20/25 09:14 Pain Level 0 06/06/25 11:14 Comment pt went to surgery 05/29/25 08:17 Intake & Output 06/05/25 06/06/25 06/06/25 23:59 11:59 23:59 Intake Total 1030 / 1130 440 / 440 Balance 1030 / 1130 440 / 440 Intake: IV 70 / 170 100 / 100 Oral 960 / 960 340 / 340 Other: Urine Color Yellow Yellow Urine Appearance Clear Clear Stool Size Large Stool Characteristics Soft Data Completed and Pending Pending Labs at Discharge: 05/20/25 05/20/25 05/20/25 07:13 07:58 08:46 WBC 29.58 H* RBC 3.59 L Hgb 9.8 L Hct 30.6 L MCV 85 MCH 27.3 MCHC 32.0 RDW 16.5 H Plt Count 361 D MPV 9.8 Immature Gran % 0.0 Neutrophils % 84.0 Lymphocytes % 5.0 Monocytes % 10.0 Eosinophils % 0.0 Basophils % 0.0 Myelocytes % 1 Nucleated RBC % 0.1 Absolute Neutrophils 24.85 H Absolute Lymphocytes 1.48 Absolute Monocytes 2.96 H Absolute Eosinophils 0.00 Absolute Basophils 0.00 RBC Morphology Normal PT 11.3 H INR 1.1 D-Dimer Cancelled VBG pH 7.42 H VBG pCO2 31 L VBG pO2 41 VBG HCO3 20 L VBG Total CO2 19 L VBG O2 Saturation 74 VBG Base Excess -4 L Sodium 141 Potassium 4.3 Chloride 106 Carbon Dioxide 21.6 Anion Gap 13.4 H BUN 51 H Creatinine 1.3 H Est GFR (CKD-EPI 2020) 46.21 Glucose 122 H Calcium 8.5 Magnesium 2.3 Total Bilirubin 0.6 AST 27 ALT 14 Alkaline Phosphatase 171 H Troponin I 220 H* C-Reactive Protein NT-Pro-B Natriuret Pep > 93972 H Total Protein 6.5 Albumin 2.5 L Urine Color Urine Clarity Urine pH Ur Specific [place] Urine Protein Urine Ketones Urine Blood Urine Nitrite Urine Bilirubin Urine Urobilinogen Ur Leukocyte Esterase Urine RBC Urine WBC Ur Epithelial Cells Urine Crystals Urine Bacteria Urine Casts Urine Mucus Ur Culture Indicated? Urine Glucose Random Vancomycin COVID-19 Source Nasopharynx SARS-CoV-2 (PCR) Negative Influenza Type A (PCR) Negative Influenza Type B (PCR) Negative RSV (PCR) Negative Add-On Test Request 05/20/25 05/20/25 05/21/25 08:58 12:00 05:39 WBC 17.40 H RBC 3.57 L Hgb 9.5 L Hct 31.0 L MCV 87 MCH 26.6 L MCHC 30.6 L RDW 16.6 H Plt Count 277 MPV 10.1 Immature Gran % Neutrophils % Lymphocytes % Monocytes % Eosinophils % Basophils % Myelocytes % Nucleated RBC % Absolute Neutrophils Absolute Lymphocytes Absolute Monocytes Absolute Eosinophils Absolute Basophils RBC Morphology PT INR D-Dimer VBG pH VBG pCO2 VBG pO2 VBG HCO3 VBG Total CO2 VBG O2 Saturation VBG Base Excess Sodium 142 Potassium 4.2 Chloride 106 Carbon Dioxide 20.4 L Anion Gap 15.6 H BUN 54 H Creatinine 1.0 Est GFR (CKD-EPI 2020) 63.30 Glucose 119 H Calcium 8.3 L Magnesium Total Bilirubin AST ALT Alkaline Phosphatase Troponin I 225 H* 249 H* C-Reactive Protein NT-Pro-B Natriuret Pep Total Protein Albumin Urine Color Urine Clarity Urine pH Ur Specific [place] Urine Protein Urine Ketones Urine Blood Urine Nitrite Urine Bilirubin Urine Urobilinogen Ur Leukocyte Esterase Urine RBC Urine WBC Ur Epithelial Cells Urine Crystals Urine Bacteria Urine Casts Urine Mucus Ur Culture Indicated? Urine Glucose Random Vancomycin COVID-19 Source SARS-CoV-2 (PCR) Influenza Type A (PCR) Influenza Type B (PCR) RSV (PCR) Add-On Test Request 05/22/25 05/23/25 05/24/25 05:42 11:28 09:52 WBC 14.68 H 17.62 H RBC 3.01 L 3.72 L Hgb 8.1 L 10.1 L D Hct 25.8 L 32.3 L MCV 86 87 MCH 26.9 L 27.2 MCHC 31.4 L 31.3 L RDW 16.5 H 16.7 H Plt Count 230 286 MPV 10.2 10.0 Immature Gran % 4.3 Neutrophils % 88.9 Lymphocytes % 3.9 Monocytes % 2.4 Eosinophils % 0.2 Basophils % 0.3 Myelocytes % Nucleated RBC % 0.1 Absolute Neutrophils 15.66 H Absolute Lymphocytes 0.69 L Absolute Monocytes 0.42 Absolute Eosinophils 0.04 Absolute Basophils 0.05 RBC Morphology Normal PT INR D-Dimer VBG pH VBG pCO2 VBG pO2 VBG HCO3 VBG Total CO2 VBG O2 Saturation VBG Base Excess Sodium 144 141 Potassium 3.9 4.0 Chloride 106 104 Carbon Dioxide 26.7 24.2 Anion Gap 11.3 H 12.8 H BUN 49 H 42 H Creatinine 1.0 0.8 Est GFR (CKD-EPI 2020) 63.30 82.74 Glucose 123 H 133 H Calcium 7.9 L 7.8 L Magnesium 2.4 2.2 Total Bilirubin 0.4 AST 21 ALT 18 Alkaline Phosphatase 153 H Troponin I 83 H* C-Reactive Protein NT-Pro-B Natriuret Pep Total Protein 6.3 L Albumin 2.6 L Urine Color Yellow Urine Clarity Sl Cloudy Urine pH 5.5 Ur Specific [place] 1.010 Urine Protein Negative Urine Ketones Negative Urine Blood Large H Urine Nitrite Negative Urine Bilirubin Negative Urine Urobilinogen 0.2 Ur Leukocyte Esterase Trace H Urine RBC >50 H Urine WBC 3-5 Ur Epithelial Cells Few Urine Crystals Negative Urine Bacteria Rare Urine Casts Negative Urine Mucus Negative Ur Culture Indicated? No Urine Glucose Negative Random Vancomycin COVID-19 Source SARS-CoV-2 (PCR) Influenza Type A (PCR) Influenza Type B (PCR) RSV (PCR) Add-On Test Request DONE 05/27/25 05/27/25 05/28/25 06:32 19:24 06:58 WBC 13.09 H 10.64 RBC 3.35 L 3.27 L Hgb 9.1 L 9.0 L Hct 28.6 L 28.2 L MCV 85 86 MCH 27.2 27.5 MCHC 31.8 L 31.9 L RDW 16.4 H 16.5 H Plt Count 309 314 MPV 10.0 10.2 Immature Gran % 1.5 1.5 Neutrophils % 79.9 77.6 Lymphocytes % 9.3 11.3 Monocytes % 8.6 8.6 Eosinophils % 0.5 0.7 Basophils % 0.2 0.3 Myelocytes % Nucleated RBC % 0.0 0.0 Absolute Neutrophils 10.46 H 8.27 H Absolute Lymphocytes 1.22 1.20 Absolute Monocytes 1.13 H 0.91 H Absolute Eosinophils 0.07 0.07 Absolute Basophils 0.03 0.03 RBC Morphology PT INR D-Dimer VBG pH VBG pCO2 VBG pO2 VBG HCO3 VBG Total CO2 VBG O2 Saturation VBG Base Excess Sodium 142 142 Potassium 3.5 3.4 L Chloride 103 104 Carbon Dioxide 30.5 30.3 Anion Gap 8.5 7.7 BUN 29 H 29 H Creatinine 1.1 H 1.1 H Est GFR (CKD-EPI 2020) 56.46 56.46 Glucose 93 92 Calcium 7.2 L 7.1 L Magnesium 2.1 Total Bilirubin 0.4 AST 15 ALT 15 Alkaline Phosphatase 115 Troponin I C-Reactive Protein 3.57 H NT-Pro-B Natriuret Pep Total Protein 5.4 L Albumin 2.4 L Urine Color Urine Clarity Urine pH Ur Specific [place] Urine Protein Urine Ketones Urine Blood Urine Nitrite Urine Bilirubin Urine Urobilinogen Ur Leukocyte Esterase Urine RBC Urine WBC Ur Epithelial Cells Urine Crystals Urine Bacteria Urine Casts Urine Mucus Ur Culture Indicated? Urine Glucose Random Vancomycin 24.2 15.5 COVID-19 Source SARS-CoV-2 (PCR) Influenza Type A (PCR) Influenza Type B (PCR) RSV (PCR) Add-On Test Request 05/29/25 05/30/25 05/31/25 06:18 07:10 06:23 WBC 14.65 H RBC 3.30 L Hgb 9.0 L Hct 28.8 L MCV 87 MCH 27.3 MCHC 31.3 L RDW 16.4 H Plt Count 367 MPV 9.8 Immature Gran % Neutrophils % Lymphocytes % Monocytes % Eosinophils % Basophils % Myelocytes % Nucleated RBC % Absolute Neutrophils Absolute Lymphocytes Absolute Monocytes Absolute Eosinophils Absolute Basophils RBC Morphology PT INR D-Dimer VBG pH VBG pCO2 VBG pO2 VBG HCO3 VBG Total CO2 VBG O2 Saturation VBG Base Excess Sodium 143 139 141 Potassium 3.9 3.7 3.4 L Chloride 105 102 101 Carbon Dioxide 29.5 28.0 32.4 H Anion Gap 8.5 9.0 7.6 BUN 24 H 26 H 26 H Creatinine 1.0 1.0 1.1 H Est GFR (CKD-EPI 2020) 63.30 63.30 56.46 Glucose 80 103 92 Calcium 7.2 L 7.1 L 7.3 L Magnesium 2.2 2.3 Total Bilirubin AST ALT Alkaline Phosphatase Troponin I C-Reactive Protein NT-Pro-B Natriuret Pep Total Protein Albumin Urine Color Urine Clarity Urine pH Ur Specific [place] Urine Protein Urine Ketones Urine Blood Urine Nitrite Urine Bilirubin Urine Urobilinogen Ur Leukocyte Esterase Urine RBC Urine WBC Ur Epithelial Cells Urine Crystals Urine Bacteria Urine Casts Urine Mucus Ur Culture Indicated? Urine Glucose Random Vancomycin 17.1 18.3 COVID-19 Source SARS-CoV-2 (PCR) Influenza Type A (PCR) Influenza Type B (PCR) RSV (PCR) Add-On Test Request 06/01/25 06:23 WBC 8.47 RBC 3.16 L Hgb 8.7 L Hct 27.5 L MCV 87 MCH 27.5 MCHC 31.6 L RDW 16.3 H Plt Count 339 MPV 9.8 Immature Gran % Neutrophils % Lymphocytes % Monocytes % Eosinophils % Basophils % Myelocytes % Nucleated RBC % Absolute Neutrophils Absolute Lymphocytes Absolute Monocytes Absolute Eosinophils Absolute Basophils RBC Morphology PT INR D-Dimer VBG pH VBG pCO2 VBG pO2 VBG HCO3 VBG Total CO2 VBG O2 Saturation VBG Base Excess Sodium 140 Potassium 3.7 Chloride 100 Carbon Dioxide 34.2 H Anion Gap 5.8 BUN 23 H Creatinine 1.1 H Est GFR (CKD-EPI 2020) 56.46 Glucose 91 Calcium 7.7 L Magnesium Total Bilirubin AST ALT Alkaline Phosphatase Troponin I C-Reactive Protein NT-Pro-B Natriuret Pep Total Protein Albumin Urine Color Urine Clarity Urine pH Ur Specific [place] Urine Protein Urine Ketones Urine Blood Urine Nitrite Urine Bilirubin Urine Urobilinogen Ur Leukocyte Esterase Urine RBC Urine WBC Ur Epithelial Cells Urine Crystals Urine Bacteria Urine Casts Urine Mucus Ur Culture Indicated? Urine Glucose Random Vancomycin COVID-19 Source SARS-CoV-2 (PCR) Influenza Type A (PCR) Influenza Type B (PCR) RSV (PCR) Add-On Test Request PFSH All Active Problems (Updated 05/30/25 @ 14:25 by Daniel Hinkle) Venous ulcer of right leg (Acute) Ulcer of right lower extremity with fat layer exposed (Acute) Hypocalcemia (Acute) Advanced care planning/counseling discussion (Acute) Palliative care encounter (Acute) Demand ischemia (Acute) Flash pulmonary edema (Acute) Chronic ulcer of right leg (Chronic) Cryoglobulinemic glomerulonephritis (Chronic) Pain in right leg (Acute) Microcytic anemia (Chronic) Hyperglycemia, drug-induced (Acute) Hyperkalemia (Acute) Lupus nephritis (Acute) On deep vein thrombosis (DVT) prophylaxis (Chronic) Acute kidney injury superimposed on CKD (Acute) Hematuria (Acute) GAVIN (acute kidney injury) (Acute) Mild peripheral edema (Acute) CHF (congestive heart failure) (Chronic) Cutaneous amyloidosis (Acute) Leg wound, right (Acute) Chronic wound (Acute) Left knee DJD (Chronic) Depo-medrol injection: 02/27/25; 11/28/2024; 08/29/24; 05/30/2024; 02/26/2024; 11/27/2023; 08/17/23 Headache (Acute) Urinary tract infection (Acute) Colovaginal fistula (Acute) Diverticulitis of sigmoid colon (Acute) Amyloidosis (Chronic) Herniated nucleus pulposus, lumbar (Chronic) Antiphospholipid syndrome (Chronic) Trigger thumb of right hand (Acute) Trigger thumb of left hand (Chronic) Nasal vestibulitis (Acute 11/02/17) Nasal congestion (Acute 06/19/14) Deviated nasal septum (Acute 06/19/14) Cephalgia (Acute 11/20/14) Constipation (Chronic) as above HTN (hypertension) (Chronic) GERD (gastroesophageal reflux disease) (Chronic) stable Lupus (Chronic) Medical History Lupus (systemic lupus erythematosus) Hypertension Primary localized cutaneous amyloidosis Cellulitis of right lower limb Lymphocytopenia Normal colonoscopy [place] 11/13/[address] Natalya Styles at [facility], severe diverticular dz, repeat 10 years. mg Hypocalcemia Asthma Allergic rhinitis Abnormal mammogram of right breast Degenerative joint disease Hyperlipidemia Pericarditis Eczema Chest wall pain Insomnia Sciatica, left side Surgical History 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) History of bone marrow biopsy S/P thyroidectomy H/O: hysterectomy Tonsillectomy Social History Smoking/Tobacco Use Status: Former Tobacco Use Quit Date: 08/14/99 Smoking risk assessment performed?: Yes Alcohol Intake: current Alcohol Intake frequency: a few times a week Alcohol type: beer and wine Drug use: Never Substance use type: does not use Household members: none Housing: house Current gender identity: female Do you feel safe at home: Yes Do you feel safe in your relationship?: Yes Additional Social history: Lives alone, formerly cared for older man who in 2024. 2 cats. no travel. Time Spent with Patient Time Spent with Patient: <45 minutes Time was spent: preparing to see the patient(eg.review tests), obtaining and/or reviewing separately otained hiistory, ordering medications,tests, procedures, referring, communicating with other health home care administrator, indepentently interpreting results, counseling the patient and care coordination
[2025-06-06] MEDS: Magnesium Oxide 400 MG TAB PO (13:07)
== END 2025-06-06 13:34 | disposition skilled nursing facility (03) | DRG 981 ==
LOC: ER 10:29 → ICU 11:31 → MS 05-22 12:17
PROVIDERS: Family Medicine; Nurse Practitioner Family; Podiatrist; Admitting Provider Family Medicine; Emergency Provider Emergency Medicine; PCP Student in an Organized Health Care Education/Training Program; Responsible Provider Family Medicine; Visit Provider Family Medicine
PROC: 0JDN0ZZ Extraction of Right Lower Leg Subcutaneous Tissue and Fascia, Open Approach (ICD-10-PCS; CPT 20103; principal; 2025-05-29 08:45)
DX: I13.0 Hypertensive heart and chronic kidney disease with heart failure and stage 1 through stage 4 chronic kidney disease, or unspecified chronic kidney disease (principal); G92.8 Other toxic encephalopathy; I50.23 Acute on chronic systolic (congestive) heart failure; J96.01 Acute respiratory failure with hypoxia; I24.89 Other forms of acute ischemic heart disease; Z59.10 Inadequate housing, unspecified; N17.9 Acute kidney failure, unspecified; N82.3 Fistula of vagina to large intestine; D68.59 Other primary thrombophilia; L97.812 Non-pressure chronic ulcer of other part of right lower leg with fat layer exposed; L03.115 Cellulitis of right lower limb; L02.415 Cutaneous abscess of right lower limb; E85.4 Organ-limited amyloidosis; B37.0 Candidal stomatitis; M32.9 Systemic lupus erythematosus, unspecified; E89.0 Postprocedural hypothyroidism; J45.909 Unspecified asthma, uncomplicated; N18.9 Chronic kidney disease, unspecified; D50.9 Iron deficiency anemia, unspecified; M17.12 Unilateral primary osteoarthritis, left knee; K21.9 Gastro-esophageal reflux disease without esophagitis; N05.9 Unspecified nephritic syndrome with unspecified morphologic changes; D89.1 Cryoglobulinemia; M51.26 Other intervertebral disc displacement, lumbar region; G47.00 Insomnia, unspecified; M51.16 Intervertebral disc disorders with radiculopathy, lumbar region; Z96.651 Presence of right artificial knee joint; Z79.899 Other long term (current) drug therapy; Z59.82 Transportation insecurity; Z79.82 Long term (current) use of aspirin; Z79.52 Long term (current) use of systemic steroids; T42.6X5A Adverse effect of other antiepileptic and sedative-hypnotic drugs, initial encounter; Z73.89 Other problems related to life management difficulty; R45.89 Other symptoms and signs involving emotional state; I83.018 Varicose veins of right lower extremity with ulcer other part of lower leg; E78.5 Hyperlipidemia, unspecified; Z22.322 Carrier or suspected carrier of Methicillin resistant Staphylococcus aureus; L99 Other disorders of skin and subcutaneous tissue in diseases classified elsewhere; B96.20 Unspecified Escherichia coli [E. coli] as the cause of diseases classified elsewhere; Z66 Do not resuscitate; E89.2 Postprocedural hypoparathyroidism
CPT/HCPCS: 36410; 20103; 11043 ×2; 11046 ×2; 00123; 36415; 51701; 80048; 80053; 82805; 85027; 87077; 87637; 88305; 93005; 93308; 94640; 96365; 96366; 96367; 96375; 96376; 97110; 97162; 97530; 99222; 99291; J1650; J3490; 71045; 73720; 80202; 81003; 81015; 83735; 83880; 84484; 85025; 85379; 85610; 86140; 87070; 87075; 87186; 87205; 88313; 93010; 94664; 99223; 99231; 99232; 99233; 99238; J0131; J0690; J0692; J1100; J1171; J1885; J1938; J2250; J2270; J2305; J2405; J2704; J3010; J3360; J3373; J7512

== ENCOUNTER → 2025-06-11 10:57 | Outpatient (BNVA) | payer MEDICARE, MEDICAID, SELFPAY | PROVIDERS: PCP Student in an Organized Health Care Education/Training Program; Referring Provider Student in an Organized Health Care Education/Training Program; Visit Provider Podiatrist | DX: Z51.89 Encounter for other specified aftercare (principal); L97.912 Non-pressure chronic ulcer of unspecified part of right lower leg with fat layer exposed; E83.59 Other disorders of calcium metabolism; I83.019 Varicose veins of right lower extremity with ulcer of unspecified site; M32.14 Glomerular disease in systemic lupus erythematosus; E85.4 Organ-limited amyloidosis; D68.61 Antiphospholipid syndrome | CPT/HCPCS: 99214; 99213 ==

== ENCOUNTER 2025-06-12 16:50 | Outpatient (REF) | payer MEDICARE, MEDICAID, SELFPAY ==
[2025-06-12 17:26] LABS: Abs Immature Grans 0.10 10^3/uL (0.0-0.06); HCT 30.4 % (36.0-46.0); HGB 9.6 g/dL (11.2-15.7); Immature Grans % 0.7 %; MCH 28.0 pg (27.0-33.0); MCHC 31.6 % (32.0-36.0); MCV 89 fL (80-95); MPV 9.7 fL (8.0-11.0); Platelet Count 375 10^3/uL (130-400); RBC 3.43 10^6/uL (3.93-5.22); RDW 16.4 % (11.7-14.6); RDW-SD 53.3 fL; WBC 13.81 10^3/uL (4.4-10.8)
[2025-06-12 17:43] LABS: Anion Gap 8.3 mmol/L (3-11); BUN 18 mg/dL (7-18); C-Reactive Protein 1.20 mg/dL (<or=0.5); CO2 27.7 mmol/L (21.0-32.0); Calcium 7.7 mg/dL (8.5-10.1); Chloride 103 mmol/L (98-107); Estimated GFR 63.30 (mL/min/1.73m2); Glucose 140 mg/dL (74-106); Magnesium 2.4 mg/dL (1.8-2.4); Potassium 4.3 mmol/L (3.5-5.1); Sodium 139 mmol/L (136-145)
== END 2025-06-12 16:51 | disposition home or self-care (01) ==
LOC: LBN 16:50
PROVIDERS: PCP Student in an Organized Health Care Education/Training Program; Visit Provider Nurse Practitioner Adult Health
DX: L03.115 Cellulitis of right lower limb (principal)
CPT/HCPCS: 80048; 83735; 85025; 86140

== ENCOUNTER → 2025-06-26 10:12 | Outpatient (BNVA) | payer MEDICARE, MEDICAID, SELFPAY | PROVIDERS: PCP Student in an Organized Health Care Education/Training Program; Referring Provider Student in an Organized Health Care Education/Training Program; Visit Provider Podiatrist | DX: Z51.89 Encounter for other specified aftercare (principal); E83.59 Other disorders of calcium metabolism; I83.019 Varicose veins of right lower extremity with ulcer of unspecified site; L97.912 Non-pressure chronic ulcer of unspecified part of right lower leg with fat layer exposed; E85.4 Organ-limited amyloidosis; D68.61 Antiphospholipid syndrome | CPT/HCPCS: 99213 ==

== ENCOUNTER 2025-08-01 16:58 | Outpatient (REF) | payer MEDICARE, MEDICAID, SELFPAY ==
[2025-08-01 21:08] LABS: ESR 13 mm/hr (0-30)
[2025-08-01 21:16] LABS: Abs Immature Grans 0.12 10^3/uL (0.0-0.06); HCT 35.9 % (36.0-46.0); HGB 11.5 g/dL (11.2-15.7); Immature Grans % 0.9 %; MCH 26.6 pg (27.0-33.0); MCHC 32.0 % (32.0-36.0); MCV 83 fL (80-95); MPV 9.3 fL (8.0-11.0); Platelet Count 306 10^3/uL (130-400); RBC 4.33 10^6/uL (3.93-5.22); RDW 13.9 % (11.7-14.6); RDW-SD 42.5 fL; WBC 14.05 10^3/uL (4.4-10.8)
[2025-08-01 21:28] LABS: Iron 15 ug/dL (50-170); Total Iron Binding Capacity 271 ug/dL (250-425)
[2025-08-01 21:30] LABS: C-Reactive Protein 3.99 mg/dL (<=0.50)
[2025-08-01 21:31] LABS: Folate 5.9 ng/mL (>5.38)
[2025-08-01 21:32] LABS: Ferritin 75 ng/mL (7-271); Vitamin B12 282 pg/mL (211-911)
[2025-08-01 21:34] LABS: RBC >50 HPF (0-2)
== END 2025-08-01 16:59 | disposition home or self-care (01) ==
LOC: LBN 16:58
PROVIDERS: PCP Student in an Organized Health Care Education/Training Program; Visit Provider Physician Assistant Medical
DX: R31.9 Hematuria, unspecified (principal)
CPT/HCPCS: 85652; 81015; 82607; 82728; 82746; 83540; 83550; 85025; 86140; 87086